=== PATIENT | male | born 1955 | race Caucasian/White ===

== ENCOUNTER → 2016-08-06 | Outpatient (CLI) | payer OTHER ==
[~2016-08-06] MED LIST: CYCL-36 PO; CYCL1TAB29 PO; KETO60IN6 IM; LISI-360 PO; LISI10TA3 PO; MEDI220T PO; METH125I2 IM; NAPR-576 PO; NAPR250T PO
[2016-08-06 09:23] LABS: HEMATOCRIT 40.1 % (39.0-51.0); MEAN CELL VOLUME 89.2 FL (80.0-100.0); MEAN CORPUSCULAR HEMOGLOBIN 29.2 PG (27.0-34.0); MEAN CORPUSCULAR HGB CONC 32.8 % (32.0-36.0); PLATELET COUNT 261 TH/MM3 (150-450); REVIEW FLAG FINAL; WHITE BLOOD COUNT 9.7 TH/MM3 (4.0-11.0)
[2016-08-06 10:00] LABS: ALKALINE PHOSPHATASE 93 U/L (45-117); ALT (GPT) 22 U/L (12-78); ANION GAP 7 MEQ/L (5-15); AST (GOT) 23 U/L (15-37); BICARBONATE 27.8 MEQ/L (21.0-32.0); BLOOD UREA NITROGEN 11 MG/DL (7-18); CHLORIDE 101 MEQ/L (98-107); GLOMERULAR FILTRATION RATE 81 ML/MIN (>89); GLUCOSE,FASTING 108 MG/DL (74-99); HDL CHOLESTEROL 104.2 MG/DL (40.0-60.0); LDL CHOLESTEROL 26 MG/DL (0-99); POTASSIUM 4.1 MEQ/L (3.5-5.1); SODIUM (NA) 136 MEQ/L (136-145); TOTAL BILIRUBIN ADULT 0.6 MG/DL (0.2-1.0)
== END ==
LOC: CLAB 08:59
PROVIDERS: ATTEND Physician Assistant Medical
DX: F10.20 Alcohol dependence, uncomplicated (principal); I10 Essential (primary) hypertension; B18.2 Chronic viral hepatitis C; Z72.0 Tobacco use
CPT/HCPCS: 36415; 80053; 80061; 84443; 85027

== ENCOUNTER → 2016-08-12 | Outpatient (CLI) | payer OTHER ==
[~2016-08-12] MED LIST changes: -CYCL-36 PO; -LISI-360 PO; -NAPR-576 PO
[2016-08-12 11:19] LABS: FREE T4 1.2 NG/DL (0.76-1.46)
== END ==
LOC: CLAB 10:25
PROVIDERS: ATTEND Nurse Practitioner Family
DX: R94.6 Abnormal results of thyroid function studies (principal)
CPT/HCPCS: 36415; 84439; 84443

== ENCOUNTER → 2016-08-13 | Outpatient (CLI) | payer OTHER ==
--- NOTE | 2016-08-14 22:59 | EKG ---
Date Performed: 08/13/2016 Time Performed: 12:57:40 PTAGE: 60 years EKG: Sinus rhythm WITH SINUS ARRHYTHMIA NORMAL ECG PREVIOUS TRACING : 04/11/2007 13.35 DOCTOR: Nimesh Sepulveda Interpretating Date/Time 08/14/2016 22:51:50
== END ==
LOC: HCAV 12:44
PROVIDERS: ATTEND Family Medicine
DX: I49.9 Cardiac arrhythmia, unspecified (principal)
CPT/HCPCS: 93005

== ENCOUNTER → 2016-08-17 | Outpatient (CLI) | payer OTHER ==
--- NOTE | 2016-08-17 17:14 | EC ---
Study Study Date:08/17/2016 STUDY CONCLUSIONS SUMMARY - Left ventricle: The cavity size was normal. Wall thickness was increased in a pattern of mild LVH. Systolic function was mildly reduced. The estimated ejection fraction was 45%. Wall motion was normal; there were no regional wall motion abnormalities. - Pulmonary arteries: PA peak pressure: 39mm Hg (S). If LV function is below 40, please consider prescribing an ACEI or ARB or document rationale for non-use. PROCEDURE DATA STUDY STATUS: Elective. Procedure: Transthoracic echocardiography. Image quality was good. Scanning was performed from the parasternal, apical, and subcostal acoustic windows. Study completion: The patient tolerated the procedure well. Transthoracic echocardiography. M-mode, complete 2D, complete spectral Doppler, and color Doppler. Patient status: Inpatient. CARDIAC ANATOMY LEFT VENTRICLE: The cavity size was normal. Wall thickness was increased in a pattern of mild LVH. Systolic function was mildly reduced. The estimated ejection fraction was 45%. Wall motion was normal; there were no regional wall motion abnormalities. AORTIC VALVE: Trileaflet; normal thickness leaflets. Doppler: Transvalvular velocity was within the normal range. There was no stenosis. No regurgitation. AORTA: Aortic root: The aortic root was normal in size. MITRAL VALVE: Structurally normal valve. Doppler: Transvalvular velocity was within the normal range. There was no evidence for stenosis. No regurgitation. LEFT ATRIUM: The atrium was normal in size. RIGHT VENTRICLE: The cavity size was normal. Wall thickness was normal. PULMONIC VALVE: Doppler: Transvalvular velocity was within the normal range. There was no evidence for stenosis. No regurgitation. TRICUSPID VALVE: Structurally normal valve. Doppler: Transvalvular velocity was within the normal range. Trace regurgitation. PULMONARY ARTERY: The main pulmonary artery was normal-sized. Systolic pressure was at the upper limits of normal. RIGHT ATRIUM: The atrium was normal in size. PERICARDIUM: There was no pericardial effusion. SYSTEMIC VEINS: Inferior vena cava: The vessel was normal in size. BASIC MEASUREMENTS ADULT Normal Left ventricle LV internal dimension, ED, chordal level, *37 mm 43-52 PLAX LV posterior wall thickness, ED 7.34 mm IVS/LVPW ratio, ED *1.57 <1.3 Ventricular septum Septal thickness, ED 11.5 mm Left atrium Anterior-posterior dimension 34 mm Right ventricle RV internal dimension, ED, PLAX 19.8 mm 19-38 DOPPLER MEASUREMENTS ADULT Normal Main pulmonary artery Pressure, S *39 mm Hg =30 Mitral valve Peak E-wave velocity 49 cm/s Peak A-wave velocity 51.3 cm/s Peak E/A ratio 1 Tricuspid valve Regurgitant peak velocity 195 cm/s Peak RV-RA gradient, S 15 mm Hg Maximal regurgitant velocity 195 cm/s Systemic veins Estimated CVP 10 mm Hg Right ventricle RV pressure, S *39 mm Hg <30 LEGEND: Mean values are shown as u=mean value. Asterisk (*) simmons values outside specified normal range. Prepared and signed by Raquel Escobar [id number]
== END ==
LOC: HECH 08:32
PROVIDERS: ATTEND Family Medicine
DX: I49.9 Cardiac arrhythmia, unspecified (principal)
CPT/HCPCS: 93306

== ENCOUNTER → 2016-08-31 | Outpatient (CLI) | payer OTHER ==
--- NOTE | 2016-09-02 07:38 | HM ---
Date Performed: 08/31/2016 Time Performed: 09:43:00 HOOKUP DATE: 08/31/16 09:43:00 AM Mon ANALYSIS START TIME: 08/31/2016 9:48:00 AM ANALYSIS END TIME: 09/01/2016 9:27:17 AM PATIENT AGE: 60 PATIENT HEIGHT PATIENT WEIGHT DRUG LIST PATIENT DIAGNOSIS: palpitations TEST NARRATIVE: The patient's average heart rate was 83 BPM. Heart rates greater than 120 B PM were noted < 1% of the time. No episodes of bradycardia were noted. No pauses exceeding 2.0 s econds were noted. 300 ventricular ectopics, which represented < 1% of the total beat count, were noted. The highest ventricular ectopic frequency occurred from 06:00 PM to 07:00 PM Mon. During th is time 29 VE(s) occurred. Ventricular ectopics were observed as 298 isolated beat(s) and as 1 coupl et(s). No runs were noted. 353 supraventricular ectopics, which represented < 1% of the total be at count, were noted. The highest supraventricular ectopic frequency occurred from 05:00 AM to 06:00 AM Tue. During this time 60 SVE(s) occurred. No episodes of ST depression (defined as -1.0 mm o r more) were noted in channel 1. No episodes of ST depression (defined as -1.0 mm or more) were note d in channel 2. No episodes of ST depression (defined as -1.0 mm or more) were noted in channel 3. TEST INTERPRETATION: The patient is in normal Sinus rhythm with an average heart rate of 83 bpm, minimum heart rate of 56 bpm, maximum heart rate of 132 bpm. T here are 298 PVCs, 353 PACs, 13 runs of PACs-longest being 6 beats. Signed by : Manuel Campoverde
== END ==
LOC: HCAV 09:15
PROVIDERS: ATTEND Family Medicine
DX: R00.2 Palpitations (principal)
CPT/HCPCS: 93225; 93226

== ENCOUNTER 2017-02-24 11:47 | Inpatient (IN) | payer OTHER ==
[2017-02-24] VITALS (11 sets, daily range): BP systolic 131–155; BP diastolic 74–88; PULSE 89–111; RESP 14–19; TEMP 97.9–100.6; O2SAT 96–99
[~2017-02-24] VITALS: Ht 182.9 cm; Wt 49.4 kg
[~2017-02-24 11:47] MED LIST changes: -KETO60IN6 IM; -METH125I2 IM; -NAPR250T PO
[2017-02-24] MEDS ORDERED: SODIUM CHLOR 0.9% 1000 ML INJ 1,000 ML IV ONE (13:45)
[2017-02-24] MEDS ORDERED: SODIUM CHLORIDE 0.9% FLUSH 5 ML FLUSH IV FLUSH PRN (13:45)
--- NOTE | 2017-02-24 14:07 | RADRPT ---
EXAM DATE/TIME: 02/24/2017 13:41 [facility] COMPARISON: No previous studies available for comparison. INDICATIONS : Right leg edema. MEDICAL HISTORY : Hypertension. Hepatitis. SURGICAL HISTORY : Orthopedic surgery, right ankle. ENCOUNTER: Initial ACUITY: 1 day PAIN SCORE: 0/10 LOCATION: Right leg. TECHNIQUE: Venous ultrasound of the leg was performed from the inguinal ligament to the proximal calf. Real-domitila e, color Doppler and spectral tracing, compression and augmentation techniques were used. FINDINGS: There is normal compressibility of the deep venous system from the inguinal region to the proximal ca lf. No echogenic clot is seen in the lumen of the common femoral, femoral, popliteal, and posterior tibial veins. There is a normal response of the venous system to proximal and distal augmentation an d respiration. CONCLUSION: Negative for deep venous thrombosis. Isaac Stevenson MD FACR on February 24, 2017 at 14:05 Board Certified Radiologist. This report was verified electronically.
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
[2017-02-24 14:15] LABS: HEMATOCRIT 39.1 % (39.0-51.0); MEAN CELL VOLUME 86.9 FL (80.0-100.0); MEAN CORPUSCULAR HEMOGLOBIN 28.9 PG (27.0-34.0); MEAN CORPUSCULAR HGB CONC 33.3 % (32.0-36.0); PLATELET COUNT 260 TH/MM3 (150-450); RED CELL DISTRIBUTION WIDTH 14.7 % (11.6-17.2); WHITE BLOOD COUNT 32.9 TH/MM3 (4.0-11.0)
[2017-02-24 14:20] LABS: HEMO FLAGS AUTO DIFF
[2017-02-24 14:26] LABS: APTT (PATIENT) 26.8 SEC (24.3-30.1); INTERNATIONAL NORMALIZED RATIO 1.1 RATIO; PROTHROMBIN TIME - PATIENT 12.4 SEC (9.8-11.6)
--- NOTE | 2017-02-24 14:48 | RADRPT ---
EXAM DATE/TIME: 02/24/2017 14:03 [facility] COMPARISON: No previous studies available for comparison. INDICATIONS : Chest palipitations. MEDICAL HISTORY : Hypertension. Hepatitis. SURGICAL HISTORY : Orthopedic surgery, right ankle. ENCOUNTER: Initial ACUITY: 1 day PAIN SCORE: 2/10 LOCATION: Bilateral chest FINDINGS: A single view of the chest demonstrates the lungs to be symmetrically aerated without evidence of mas s, infiltrate or effusion. The cardiomediastinal contours are unremarkable. Osseous structures are intact. CONCLUSION: No acute disease. Isaac Stevenson MD FACR on February 24, 2017 at 14:46 Board Certified Radiologist. This report was verified electronically.
--- NOTE | 2017-02-24 14:49 | RADRPT ---
EXAM DATE/TIME: 02/24/2017 14:05 [facility] COMPARISON: No previous studies available for comparison. INDICATIONS : Right medial ankle swelling for a week. MEDICAL HISTORY : Hypertension. Hepatitis. SURGICAL HISTORY : Orthopedic surgery, right ankle. ENCOUNTER: Initial ACUITY: 1 week PAIN SCORE: 4/10 LOCATION: Right medial ankle. FINDINGS: Hardware is seen in the ankle with extensive degenerative changes present. There is collapse of the talar dome. There is extensive degenerative changes about the talofibular articulation. Joint effus ion is evident. Fractures are appreciated. CONCLUSION: Extensive degenerative changes with joint effusion. Isaac Stevenson MD FACR on February 24, 2017 at 14:46 Board Certified Radiologist. This report was verified electronically.
[2017-02-24 14:50] LABS: ALKALINE PHOSPHATASE 135 U/L (45-117); ALT (GPT) 64 U/L (12-78); ANION GAP 13 MEQ/L (5-15); AST (GOT) 94 U/L (15-37); BICARBONATE 26.4 MEQ/L (21.0-32.0); BLOOD UREA NITROGEN 70 MG/DL (7-18); CHLORIDE 99 MEQ/L (98-107); CREATINE KINASE 277 U/L (39-308); GLOMERULAR FILTRATION RATE 60 ML/MIN (>89); MAGNESIUM 3.6 MG/DL (1.5-2.5); SODIUM (NA) 138 MEQ/L (136-145); TOTAL BILIRUBIN ADULT 0.7 MG/DL (0.2-1.0)
[2017-02-24 14:59] LABS: POTASSIUM 2.9 MEQ/L (3.5-5.1)
[2017-02-24 15:11] LABS: BANDS 10 % (0-6); NEUTROPHIL # MANUAL DIFF 31.6 TH/MM3 (1.8-7.7); POLYS (SEG NEUTROPHILS) 86 % (16-70); WBC DIFF SAMPLE 100
[2017-02-24 15:12] LABS: DOHLE BODIES PRESENT (NONE SEEN); OVALOCYTES 1+ (NORMAL); PLATELET ESTIMATE SMEAR NORMAL (NORMAL); PLATELET MORPHOLOGY NORMAL (NORMAL); SCAN/DIFF FINAL DIFF MANUAL; TOXIC GRANULATION 1+ (NORMAL)
[2017-02-24 15:19] LABS: CKMB 7.1 NG/ML (0.5-3.6)
[2017-02-24] MEDS ORDERED: CEFEPIME INJ 2,000 MG in SODIUM CHLORIDE 0.9% INJ 100 ML IV STA (15:35)
[2017-02-24] MEDS ORDERED: VANCOMYCIN INJ 1,000 MG in SODIUM CHLOR 0.9% 250 ML INJ 250 ML IV STA (15:35)
[2017-02-24] MEDS ORDERED: POTASSIUM CHLORIDE 25 MEQ EFFERVESCENT TAB PO ONE (16:00)
[2017-02-24] MEDS ORDERED: IOHEXOL 350 MG/ML 10 ML VIAL (for RAD DIAG) IV ONE (16:29)
--- NOTE | 2017-02-24 16:40 | RADRPT ---
EXAM DATE/TIME: 02/24/2017 16:08 [facility] COMPARISON: CT SOFT TISSUE NECK W CONTRAST, October 02, 2013, 13:26. INDICATIONS : Altered mental status. RADIATION DOSE: 46.66 CTDIvol (mGy) MEDICAL HISTORY : Hypertension. SURGICAL HISTORY : None. ENCOUNTER: Initial ACUITY: 1 day PAIN SCALE: 0/10 LOCATION: cranial TECHNIQUE: Multiple contiguous axial images were obtained of the head. Using automated exposure control and adj ustment of the mA and/or kV according to patient size, radiation dose was kept as low as reasonably a chievable to obtain optimal diagnostic quality images. DICOM format image data is available electro nically for review and comparison. FINDINGS: CEREBRUM: The ventricles are normal for age. No evidence of midline shift, mass lesion, hemorrhage or acute in farction. No extra-axial fluid collections are seen. POSTERIOR FOSSA: The cerebellum and brainstem are intact. The 4th ventricle is midline. The cerebellopontine angle i s unremarkable. EXTRACRANIAL: The visualized portion of the orbits is intact. Suspect mucocele in the sphenoid sinus. SKULL: The calvaria is intact. No evidence of skull fracture. CONCLUSION: 1. No acute intracranial abnormality. 2. Probable large mucocele in the sphenoid sinus. Ty Hankins MD on February 24, 2017 at 16:35 Board Certified Radiologist. This report was verified electronically.
--- NOTE | 2017-02-24 16:51 | RADRPT ---
EXAM DATE/TIME: 02/24/2017 16:16 [facility] COMPARISON: No previous studies available for comparison. INDICATIONS : Patient has abdominal pain. IV CONTRAST: 97 cc Omnipaque 350 (iohexol) IV ORAL CONTRAST: No oral contrast ingested. RADIATION DOSE: 7.99 CTDIvol (mGy) MEDICAL HISTORY : Hypertension. SURGICAL HISTORY : None. ENCOUNTER: Initial ACUITY: 1 day PAIN SCALE: 5/10 LOCATION: Bilateral TECHNIQUE: Volumetric scanning of the abdomen and pelvis was performed. Using automated exposure control and adjustment of the mA and/or kV according to patient size, radiation dose was kept as low as reasonably achievable to obtain optimal diagnostic quality images. DICOM format image data is av ailable electronically for review and comparison. FINDINGS: Lung bases are clear. The liver, spleen, and pancreas are unremarkable. The right adr enal is normal. There is a 2.1 cm left adrenal mass evident. There is symmetrical renal function. There is no free fluid. There is moderate distension of the bladder. The bowel gas pattern is unremarkable with marked gaseous distension of both large and small bowel. Bowel is dilated down to the rectum although the sigmoid colon is compressed by the distended bladder . CONCLUSION: 1. Marked gaseous distension of large and small bowel most suggestive of ileus. 2. There is no free air. 3. 2.2 cm left adrenal mass. 4. Distended bladder. Isaac Stevenson MD FACR on February 24, 2017 at 16:44 Board Certified Radiologist. This report was verified electronically.
[2017-02-24 17:37] LABS: BACTERIA, URINE MOD /hpf; BLOOD, URINE NEG (NEG); COMMENT (UR) CULTURE INDICATED; CULTURE IF INDICATED CULTURE INDICATED; GLUCOSE,URINE NEG (NEG); HYALINE CAST, URINE 5 /lpf (RARE); KETONE, URINE TRACE mg/dL (NEG); NITRITE,URINE NEG (NEG); PH, URINE 6.5 (5.0-8.5); SQUAMOUS EPITHELIAL CELL URINE <1 /hpf (0-5); URINE COLOR YELLOW (YELLW/STRAW)
[2017-02-24] MEDS ORDERED: ONDANSETRON HCL 4 MG/2 ML VIAL IV PUSH PRN (18:00)
[2017-02-24] MEDS: SODIUM CHLOR 0.9% 1000 ML INJ 1,000 ML IV SCH (18:24)
[2017-02-24] MEDS ORDERED: Vancomycin Consult Pharmacy 1 EA OTHER SCH (20:15)
[2017-02-24] MEDS ORDERED: THIAMINE HCL 100 MG TAB PO ONE (20:15)
[2017-02-24] MEDS: POTASSIUM CHLOR 20 MEQ PREMIX 100 ML IV SCH ×2 (20:20→22:59)
[2017-02-25] VITALS (10 sets, daily range): BP systolic 140–164; BP diastolic 73–92; PULSE 90–116; RESP 18–28; TEMP 97.1–102.3; O2SAT 93–99
[2017-02-25] MEDS: SODIUM CHLOR 0.9% 1000 ML INJ 1,000 ML IV SCH ×3 (01:44→18:00)
[2017-02-25 02:39] LABS: BICARBONATE 24.8 MEQ/L (21.0-32.0); MAGNESIUM 2.8 MG/DL (1.5-2.5); POTASSIUM 3.9 MEQ/L (3.5-5.1)
[2017-02-25] MEDS: CEFEPIME INJ 2,000 MG in SODIUM CHLORIDE 0.9% INJ 100 ML IV SCH ×2 (06:16→18:00)
[2017-02-25 07:59] LABS: HEMATOCRIT 37.1 % (39.0-51.0); MEAN CELL VOLUME 87.2 FL (80.0-100.0); MEAN CORPUSCULAR HEMOGLOBIN 28.4 PG (27.0-34.0); MEAN CORPUSCULAR HGB CONC 32.6 % (32.0-36.0); PLATELET COUNT 239 TH/MM3 (150-450); RED BLOOD COUNT 4.26 MIL/MM3 (4.50-5.90); RED CELL DISTRIBUTION WIDTH 14.8 % (11.6-17.2); WHITE BLOOD COUNT 30.9 TH/MM3 (4.0-11.0)
[2017-02-25 08:05] LABS: HEMO FLAGS AUTO DIFF
[2017-02-25 08:30] LABS: BICARBONATE 23.7 MEQ/L (21.0-32.0); POTASSIUM 3.5 MEQ/L (3.5-5.1)
--- NOTE | 2017-02-25 09:05 | HHI.HP ---
HPI Service [facility] Primary Care Physician Unknown Admission Diagnosis altered mental status, leukocytosis Diagnoses: (1) Sepsis Diagnosis: Principal (2) Right foot infection Diagnosis: Principal (3) Encephalopathy Diagnosis: Principal (4) Alcoholism Diagnosis: Secondary Chief Complaint: ' right foot swelling'. Travel History International Travel<30 Days: No Contact w/Intl Traveler <30 Da: No Traveled to Known Affected Are: No Sepsis Criteria SIRS Criteria (2 or more): Heart rate over 90, WBC > 99115, < 4000 or > 10% bands Sepsis Criteria (SIRS+source): Infect source susp/known Criteria Outcome: Meets sepsis criteria History of Present Illness patient is a 61 y/o male , homeless, who presented to ER with pain and swelling of the right ankle. he says that he had a surgery on the right ankle years ago. he noticed some swelling of the right ankle about two months ago which has been getting worse.he 's complaining of some pain to the right ankle and foot. he reports some subjective fever prior to this presentation. Review of Systems Constitutional: DENIES: Fever, Weight loss, Chills, Night Sweats Eyes: DENIES: Blurred vision, Diplopia, Vision loss, Double Vision Ears, nose, mouth, throat: DENIES: Tinnitus, Vertigo, Throat pain, Epistaxis Respiratory: DENIES: Apneas, Cough, Snoring, Wheezing, Hemoptysis, Sputum production, Shortness of breath Cardiovascular: DENIES: Chest pain, Palpitations, Syncope, Dyspnea on Exertion , PND, Lower Extremity Edema, Orthopnea, Claudication Gastrointestinal: DENIES: Abdominal pain, Black stools, Bloody stools, Constipation, Diarrhea, Nausea, Vomiting, Difficulty Swallowing, Anorexia Genitourinary: DENIES: Urinary frequency, Urgency, Hematuria, Dysuria Musculoskeletal: COMPLAINS OF: Joint pain (right foot), DENIES: Muscle aches, Stiffness, Joint Swelling Integumentary: DENIES: Rash Neurologic: DENIES: Abnormal gait, Headache, Localized weakness, Paresthesias, Seizures, Speech Problems, Tremor, Poor Balance Psychiatric: DENIES: Anxiety, Confusion, Mood changes, Depression, Hallucinations, Agitation, Suicidal Ideation, Homicidal Ideation, Delusions Past Family Social History Past Medical History hypertension Past Surgical History right foot surgery. Reported Medications flexeril lisinopril Allergies: Coded Allergies: Cipro (Verified Adverse Reaction, Intermediate, Dizziness, 02/24/17) Active Ordered Medications Current Medications Sodium Chloride (NS 1000 ml Inj) 1,000 ml @ 999 mls/hr BOLUS ONCE IV Last administered on 02/24/17 13:38; Start 02/24/17 at 13:45; Stop 02/24/17 at 14:45; Status DC IV Flush 2 ml 2 ml UNSCH PRN IV FLUSH FLUSH AFTER USING IV ACCESS Last administered on 02/24/17 13:38; Start 02/24/17 at 13:45 Vancomycin HCl 1000 mg/Sodium Chloride 250 ml @ 250 mls/hr ONCE STAT IV Last administered on 02/24/17 15:49; Start 02/24/17 at 15:35; Stop 02/24/17 at 16:34; Status DC Cefepime HCl/ Sodium Chloride (Maxipime Inj/NS Inj) 100 ml @ 200 mls/hr ONCE STAT IV Last administered on 02/24/17 16:36; Start 02/24/17 at 15:35; Stop at 16:04; Status DC Potassium Bicarb/ Potassium Chloride (K-Lyte Cl Eff) 50 meq ONCE ONCE PO Last administered on 02/24/17 15:56; Start 02/24/17 at 16:00; Stop 02/24/17 at 16: 01; Status DC Iohexol 97 ml 97 ml STK-MED ONCE IV Last administered on 02/24/17 16:29; Start 02/24/17 at 16:29; Stop 02/24/17 at 16:30; Status DC Sodium Chloride (NS 1000 ml Inj) 1,000 ml @ 125 mls/hr Q8H IV Last administered on 02/25/17 01:44; Start 02/24/17 at 18:00 Ondansetron HCl (Zofran Inj) 4 mg Q8HR PRN IV PUSH NAUSEA; Start 02/24/17 at 18: 00 Thiamine HCl (Vitamin B1) 100 mg ONCE ONCE PO Last administered on 02/24/17 20 :20; Start 02/24/17 at 20:15; Stop 02/24/17 at 20:16; Status DC Thiamine HCl 100 mg 100 mg DAILY PO ; Start 02/25/17 at 09:00 Potassium Chloride 100 ml @ 50 mls/hr Q2H IV Last administered on 02/24/17 22: 59; Start 02/24/17 at 20:30; Stop 02/25/17 at 00:29; Status DC Pharmacy Profile Note 0 ml @ 0 mls/hr UNSCH OTHER ; Start 02/24/17 at 20:15 Cefepime HCl 2000 mg/Sodium Chloride 100 ml @ 200 mls/hr Q12H IV Last administered on 02/25/17 06:16; Start 02/25/17 at 07:00 Vancomycin HCl/ Sodium Chloride (Vancomycin Inj/ NS 500 ml Inj) 515 ml @ 257.5 mls/ hr Q18H IV ; Start 02/25/17 at 10:00 Miscellaneous Information SPECIFIC LAB TO BE DRAWN:VANCO TROUGH DATE TO BE DR... ONCE ONCE .XX ; Start 02/26/17 at 21:45; Stop 02/26/17 at 21:46 Family History not known. Social History smokes a pack a day- and drinks daily. Physical Exam Vital Signs Vital Signs Date Time Temp Pulse Resp B/P Pulse Ox O2 Delivery O2 Flow Rate FiO2 02/25/17 04:15 97.1 94 18 164/81 93 02/25/17 00:10 99.3 101 19 155/83 94 02/24/17 23:00 92 02/24/17 22:15 104 02/24/17 20:45 100.6 97 19 144/81 98 02/24/17 19:21 90 14 146/84 99 Room Air 02/24/17 18:24 98.3 96 17 144/82 98 Room Air 02/24/17 16:41 98.0 89 17 152/88 98 Room Air 02/24/17 15:00 97.9 89 17 155/84 98 Room Air 02/24/17 13:30 97.9 89 17 142/81 98 Room Air 02/24/17 13:22 18 98 Room Air 02/24/17 13:17 81 17 98 Room Air 02/24/17 13:03 98.1 89 18 144/74 98 Physical Exam GENERAL: This is a well-nourished, well-developed patient, in no apparent distress. SKIN: mild erythema over the right foot. HEAD: Atraumatic. Normocephalic. No temporal or scalp tenderness.dry oral mucosa EYES: Pupils equal round and reactive. Extraocular motions intact. No scleral icterus. No injection or drainage. ENT: Nose without bleeding, purulent drainage or septal hematoma. Throat without erythema, tonsillar hypertrophy or exudate. Uvula midline. Airway patent. NECK: Trachea midline. No JVD or lymphadenopathy. Supple, nontender, no meningeal signs. CARDIOVASCULAR: Regular rate and rhythm without murmurs, gallops, or rubs. RESPIRATORY: Clear to auscultation. Breath sounds equal bilaterally. No wheezes , rales, or rhonchi. GASTROINTESTINAL: Abdomen soft, non-tender, nondistended. No hepato-splenomegaly , or palpable masses. No guarding. MUSCULOSKELETAL: right ankle/ foot is swollen and tender. NEUROLOGICAL: Awake and alert. oriented to person, partly to place and time. Laboratory Laboratory Tests Test 02/24/17 02/24/17 02/24/17 02/25/17 13:40 13:45 15:41 02:04 Prothrombin Time 12.4 Prothromb Time International 1.1 Ratio Activated Partial 26.8 Thromboplast Time Sodium Level 138 138 Potassium Level 2.9 3.9 Chloride Level 99 105 Carbon Dioxide Level 26.4 24.8 Anion Gap 13 8 Blood Urea Nitrogen 70 44 Creatinine 1.22 0.77 Estimat Glomerular Filtration 60 102 Rate Random Glucose 105 94 Lactic Acid Level 1.8 Calcium Level 8.9 8.3 Phosphorus Level 3.4 Magnesium Level 3.6 2.8 Total Bilirubin 0.7 Aspartate Amino Transf 94 (AST/SGOT) Alanine Aminotransferase 64 (ALT/SGPT) Alkaline Phosphatase 135 Ammonia 17 Total Creatine Kinase 277 Creatine Kinase MB 7.1 Troponin I 0.02 Total Protein 7.3 Albumin 2.2 Ethyl Alcohol Level LESS THAN 3 White Blood Count 32.9 Red Blood Count 4.50 Hemoglobin 13.0 Hematocrit 39.1 Mean Corpuscular Volume 86.9 Mean Corpuscular Hemoglobin 28.9 Mean Corpuscular Hemoglobin 33.3 Concent Red Cell Distribution Width 14.7 Platelet Count 260 Mean Platelet Volume 9.5 Neutrophils (%) (Auto) Lymphocytes (%) (Auto) Monocytes (%) (Auto) Eosinophils (%) (Auto) Basophils (%) (Auto) Neutrophils # (Auto) Lymphocytes # (Auto) Monocytes # (Auto) Eosinophils # (Auto) Basophils # (Auto) CBC Comment AUTO DIFF Differential Total Cells 100 Counted Neutrophils % (Manual) 86 Band Neutrophils % 10 Lymphocytes % 1 Monocytes % 3 Neutrophils # (Manual) 31.6 Differential Comment FINAL DIFF MANUAL Toxic Granulation 1+ Dohle Bodies PRESENT Platelet Estimate NORMAL Platelet Morphology Comment NORMAL Ovalocytes 1+ Urine Color YELLOW Urine Turbidity HAZY Urine pH 6.5 Urine Specific [place] 1.021 Urine Protein 30 Urine Glucose (UA) NEG Urine Ketones TRACE Urine Occult Blood NEG Urine Nitrite NEG Urine Bilirubin NEG Urine Urobilinogen LESS THAN 2.0 Urine Leukocyte Esterase NEG Urine RBC LESS THAN 1 Urine WBC 2 Urine Squamous Epithelial <1 Cells Urine Bacteria MOD Urine Hyaline Casts 5 Microscopic Urinalysis Comment CULTURE INDICATED Urine Opiates Screen NEG Urine Barbiturates Screen NEG Urine Amphetamines Screen NEG Urine Benzodiazepines Screen NEG Urine Cocaine Screen NEG Urine Cannabinoids Screen NEG Test 02/25/17 07:02 White Blood Count 30.9 Red Blood Count 4.26 Hemoglobin 12.1 Hematocrit 37.1 Mean Corpuscular Volume 87.2 Mean Corpuscular Hemoglobin 28.4 Mean Corpuscular Hemoglobin 32.6 Concent Red Cell Distribution Width 14.8 Platelet Count 239 Mean Platelet Volume 9.1 Neutrophils (%) (Auto) Lymphocytes (%) (Auto) Monocytes (%) (Auto) Eosinophils (%) (Auto) Basophils (%) (Auto) Neutrophils # (Auto) Lymphocytes # (Auto) Monocytes # (Auto) Eosinophils # (Auto) Basophils # (Auto) CBC Comment AUTO DIFF Sodium Level 138 Potassium Level 3.5 Chloride Level 106 Carbon Dioxide Level 23.7 Anion Gap 8 Blood Urea Nitrogen 37 Creatinine 0.64 Estimat Glomerular Filtration 126 Rate Random Glucose 92 Calcium Level 8.4 Date/Time Procedure Status Source Growth 02/24/17 15:41 Urine Culture Received Urine Clean Catch Pending 02/24/17 13:40 Aerobic Blood Culture Received Blood Peripheral Pending 02/24/17 13:40 Anaerobic Blood Culture Received Blood Peripheral Pending Result Diagram: 02/25/17 0702 02/25/17 0702 Imaging Last Impressions Lower Extremity Ultrasound 02/24/17 0000 Signed Impressions: Service Date/Time: Friday, February 24, 2017 13:41 - CONCLUSION: Negative for deep venous thrombosis. Isaac Stevenson MD FACR Head CT 02/24/17 0000 Signed Impressions: Service Date/Time: Friday, February 24, 2017 16:08 - CONCLUSION: 1. No acute intracranial abnormality. 2. Probable large mucocele in the sphenoid sinus. Ty Hankins MD Chest X-Ray 02/24/17 0000 Signed Impressions: Service Date/Time: Friday, February 24, 2017 14:03 - CONCLUSION: No acute disease. Isaac Stevenson MD FACR Ankle X-Ray 02/24/17 0000 Signed Impressions: Service Date/Time: Friday, February 24, 2017 14:05 - CONCLUSION: Extensive degenerative changes with joint effusion. Isaac Stevenson MD FACR Abdomen/Pelvis CT 02/24/17 0000 Signed Impressions: Service Date/Time: Friday, February 24, 2017 16:16 - CONCLUSION: 1. Marked gaseous distension of large and small bowel most suggestive of ileus. 2. There is no free air. 3. 2.2 cm left adrenal mass. 4. Distended bladder. Isaac Stevenson MD FACR Assessment and Plan Assessment and Plan A/P - sepsis due to right ankle/foot infection with history of right foot surgery in the past continue with broad spectrum IV antibiotics- follow the blood cultures- consult ID and podiatry- continue with pain control. -dehydration; continue IV fluid. -alcohol abuse; start on CIWA protocol, thiamine and multivitamin. -acute encephalopathy-possible due to sepsis/ dehydration continue IV fluid and antibiotics- monitor clinically CT head with no acute intracranial abnormality. -hypokalemia; replaced. -DVT prophylaxis; subq Lovenox. Physician Certification 2 Midnight Certification Type: Admission for Inpatient Services Order for Inpatient Services The services are ordered in accordance with Medicare regulations or non- Medicare payer requirements, as applicable. In the case of services not specified as inpatient-only, they are appropriately provided as inpatient services in accordance with the 2-midnight benchmark. Estimated LOS (days): 3 days is the estimated time the patient will need to remain in the hospital, assuming treatment plan goals are met and no additional complications. Post-Hospital Plan: Not yet determined Problem Qualifiers (1) Sepsis: Qualified Code: A41.9 - Sepsis, due to unspecified organism Flaca Houser MD Feb 25, 2017 09:05
[2017-02-25] MEDS ORDERED: LORazepam 2 MG TAB PO PRN (09:15)
[2017-02-25] MEDS ORDERED: FLUMAZENIL 0.5 MG/5 ML VIAL IV PUSH PRN (09:15)
[2017-02-25] MEDS ORDERED: VANCOMYCIN 1,500 MG/NS 500 ML IV SCH ×2 (10:00)
[2017-02-25] MEDS: THIAMINE HCL 100 MG TAB PO SCH (10:29)
[2017-02-25 10:30] LABS: BANDS 10 % (0-6); METAMYELOCYTES 1 % (0-1); NEUTROPHIL # MANUAL DIFF 30.6 TH/MM3 (1.8-7.7); POLYS (SEG NEUTROPHILS) 88 % (16-70); WBC DIFF SAMPLE 100
[2017-02-25 10:31] LABS: PLATELET MORPHOLOGY NORMAL (NORMAL); SCAN/DIFF FINAL DIFF MANUAL
[2017-02-25] MEDS: ENOXAPARIN SODIUM 40 MG/0.4 ML SYRINGE SQ SCH (12:12)
[2017-02-25] MEDS: LORazepam 1 MG TAB PO PRN (12:12)
--- NOTE | 2017-02-25 15:00 | EKG ---
Date Performed: 02/24/2017 Time Performed: 13:45:39 PTAGE: 61 years EKG: Sinus rhythm WITH SHORT [place] INTERVAL MINIMAL VOLTAGE CRITERIA FOR LVH, CONSIDER NORMAL VARIANT NONSPECIFIC T-WAVE ABNORMALITY BORDERLINE ECG PREVIOUS TRACING : 08/13/2016 12.57 Since previous tracing, no significant change noted DOCTOR: Dawn Brink Interpretating Date/Time 02/25/2017 14:59:56
--- NOTE | 2017-02-25 16:26 | PD.ID.CON ---
History of Present Illness Service ID Consult Requested By Reason for Consult Evaluation and Mment of Sepsis, MRSA bacteremia, Septic arthritis Right knee. Primary Care Physician Unknown Diagnoses: History of Present Illness Most of the history is obtained from review of medical records. Patient is confused. is a 61 y/o CM,homeless, with prior h/o right knee surgery, Hepatitis C antibody positive, chronic heavy alcoholism and smoking. Patient presented to ER with pain and swelling of the right ankle. Patient reported to others on admission that he noticed some swelling of the right ankle about two months ago which has been getting worse. Due to pain and subjective fevers patient presented to the hospital. On admission in the ED patient had normal WBC count, but leucocytosis of 32 K, Tachycardia and normal blood pressure. Sepsis workup was started and patient was started on broad spectrum antibiotics. Blood cultures from admission are positive for Staph aureus (MRSA) and urine as well. Patient has been started on DT prophylaxis but continues to be altered mental status with tremulousness. Patient also has been seen by podiatry. will likely take him to OR in am for source control. At the time of my evaluation patient was tremulous, confused, maintaining blood pressure but due to concerns for aspiration and airway protection I called [facility] who evaluated patient. ID consulted for sepsis, MRSA bacteremia and right knee septic arthritis. Review of Systems ROS Limitations: Altered Mental Status Past Family Social History Allergies: Coded Allergies: Cipro (Verified Adverse Reaction, Intermediate, Dizziness, 02/24/17) *MDRO Multi-Drug Resistant Organism (Verified Adverse Reaction, Unknown, ) MRSA (blood)+(urine) 02/24/17, (blood) 02/25/17, 02/27/17 (finger,ankle,leg) 02/26/17, 02/28/17 MRSA PCR screen positive 02/25/17 Past Medical History hypertension alcoholism Hepatitis C Past Surgical History right foot surgery with hardware in place. Reported Medications Reported Meds & Active Scripts Active Flexeril (Cyclobenzaprine HCl) 10 Mg Tab 10 Mg PO TID Lisinopril 10 Mg Tab 10 Mg PO DAILY Reported Naproxen Sodium 220 Mg Tab 220 Mg PO BID PRN Active Ordered Medications Current Medications Medications (Trade) Dose Ordered Sig/Kayla Route Start Time Stop Time Status Last Admin IV Flush 2 ml 2 ml UNSCH PRN IV FLUSH 02/24/17 13:45 02/24/17 13:38 (NS 1000 ml Inj) 1,000 ml @ 125 mls/hr Q8H IV 02/24/17 18:00 02/25/17 10:29 (Zofran Inj) 4 mg Q8HR PRN IV PUSH 02/24/17 18:00 Thiamine HCl 100 mg 100 mg DAILY PO 02/25/17 09:00 02/25/17 10:29 Pharmacy Profile Note 0 ml @ 0 mls/hr UNSCH OTHER 02/24/17 20:15 (Maxipime Inj/NS Inj) 100 ml @ 200 mls/hr Q12H IV 02/25/17 07:00 02/25/17 06:16 Miscellaneous Information SPECIFIC LAB TO BE DRAWN:VANCO TROUGH DATE TO BE DRLaurence.Laurence ONCE ONCE .XX 02/26/17 21:45 02/26/17 21:46 (Romazicon Inj) 0.2 mg Q1M PRN IV PUSH 02/25/17 09:15 (Ativan) 1 mg Q4H PRN PO 02/25/17 09:15 02/25/17 12:12 (Ativan Inj) 1 mg Q4H PRN IV PUSH 02/25/17 09:15 (Ativan) 2 mg Q2H PRN PO 02/25/17 09:15 (Ativan Inj) 2 mg Q2H PRN IV PUSH 02/25/17 09:15 (Ativan Inj) 2 mg Q1H PRN IV PUSH 02/25/17 09:15 (Ativan Inj) 2 mg Q15M PRN IV PUSH 02/25/17 09:15 (Theragran) 1 tab DAILY PO 02/26/17 09:00 (Tylenol) 650 mg Q4H PRN PO 02/25/17 09:15 (Prinivil) 10 mg DAILY PO 02/26/17 09:00 Enoxaparin Sodium 40 mg 40 mg Q24H SQ 02/25/17 10:00 02/25/17 12:12 (Vancomycin Inj/ NS 500 ml Inj) 515 ml @ 257.5 mls/ hr Q12H IV 02/25/17 22:00 Miscellaneous Information SPECIFIC LAB TO BE .Laurence ONCE ONCE .XX 02/26/17 09:45 02/26/17 09:46 Family History could not be obtained. Social History Homeless, smokes a pack a day and drinks daily. Physical Exam Vital Signs Vital Signs Date Time Temp Pulse Resp B/P Pulse Ox O2 Delivery O2 Flow Rate FiO2 02/25/17 08:00 97.7 90 18 157/84 96 02/25/17 04:15 97.1 94 18 164/81 93 02/25/17 00:10 99.3 101 19 155/83 94 02/24/17 23:00 92 02/24/17 22:15 104 02/24/17 20:45 100.6 97 19 144/81 98 02/24/17 19:21 90 14 146/84 99 Room Air 02/24/17 18:24 98.3 96 17 144/82 98 Room Air 02/24/17 16:41 98.0 89 17 152/88 98 Room Air Physical Exam GENERAL: This is a well-nourished, well-developed patient, in no apparent distress. SKIN: No rashes, ecchymoses or lesions. Cool and dry. HEAD: Atraumatic. Normocephalic. No temporal or scalp tenderness. EYES: Pupils equal round and reactive. Extraocular motions intact. No scleral icterus. No injection or drainage. ENT: Nose without bleeding, purulent drainage or septal hematoma. Throat without erythema, tonsillar hypertrophy or exudate. Uvula midline. Airway patent. NECK: Trachea midline. Supple, nontender, no meningeal signs. CARDIOVASCULAR: Regular rate and rhythm without murmurs, gallops, or rubs. RESPIRATORY: Clear to auscultation. Breath sounds equal bilaterally. No wheezes , rales, or rhonchi. GASTROINTESTINAL: Abdomen soft, non-tender, nondistended. MUSCULOSKELETAL: Rt foot with swelling and warmth and fluctuance noted. Bilateral UE with warmth and swelling around knuckles noted. NEUROLOGICAL: Lethargic, awakens on command but drifts back to sleep. Psych cooperative IV line sites with no e.o infection Laboratory Laboratory Tests Test 02/25/17 02/25/17 02:04 07:02 Sodium Level 138 138 Potassium Level 3.9 3.5 Chloride Level 105 106 Carbon Dioxide Level 24.8 23.7 Anion Gap 8 8 Blood Urea Nitrogen 44 37 Creatinine 0.77 0.64 Estimat Glomerular Filtration 102 126 Rate Random Glucose 94 92 Calcium Level 8.3 8.4 Magnesium Level 2.8 Vitamin B12 Level GREATER THAN 2000 Folate 11.5 White Blood Count 30.9 Red Blood Count 4.26 Hemoglobin 12.1 Hematocrit 37.1 Mean Corpuscular Volume 87.2 Mean Corpuscular Hemoglobin 28.4 Mean Corpuscular Hemoglobin 32.6 Concent Red Cell Distribution Width 14.8 Platelet Count 239 Mean Platelet Volume 9.1 Neutrophils (%) (Auto) Lymphocytes (%) (Auto) Monocytes (%) (Auto) Eosinophils (%) (Auto) Basophils (%) (Auto) Neutrophils # (Auto) Lymphocytes # (Auto) Monocytes # (Auto) Eosinophils # (Auto) Basophils # (Auto) CBC Comment AUTO DIFF Differential Total Cells 100 Counted Neutrophils % (Manual) 88 Band Neutrophils % 10 Monocytes % 1 Neutrophils # (Manual) 30.6 Metamyelocytes 1 Differential Comment FINAL DIFF MANUAL Platelet Morphology Comment NORMAL Red Cell Morphology Comment NORMAL Date/Time Procedure Status Source Growth 02/24/17 15:41 Urine Culture - Preliminary Resulted Urine Clean Catch S. Aureus Mrsa 02/24/17 13:40 Aerobic Blood Culture - Preliminary Resulted Blood Peripheral S. Aureus Mrsa 02/24/17 13:40 Anaerobic Blood Culture - Preliminary Resulted Gram Positive Cocci Result Diagram: 02/25/17 0702 02/25/17 0702 Imaging Last Impressions Lower Extremity Ultrasound 02/24/17 0000 Signed Impressions: Service Date/Time: Friday, February 24, 2017 13:41 - CONCLUSION: Negative for deep venous thrombosis. Isaac Stevenson MD FACR Head CT 02/24/17 0000 Signed Impressions: Service Date/Time: Friday, February 24, 2017 16:08 - CONCLUSION: 1. No acute intracranial abnormality. 2. Probable large mucocele in the sphenoid sinus. Ty Hankins MD Chest X-Ray 02/24/17 0000 Signed Impressions: Service Date/Time: Friday, February 24, 2017 14:03 - CONCLUSION: No acute disease. Isaac Stevenson MD FACR Ankle X-Ray 02/24/17 0000 Signed Impressions: Service Date/Time: Friday, February 24, 2017 14:05 - CONCLUSION: Extensive degenerative changes with joint effusion. Isaac Stevenson MD FACR Abdomen/Pelvis CT 02/24/17 0000 Signed Impressions: Service Date/Time: Friday, February 24, 2017 16:16 - CONCLUSION: 1. Marked gaseous distension of large and small bowel most suggestive of ileus. 2. There is no free air. 3. 2.2 cm left adrenal mass. 4. Distended bladder. Isaac Stevenson MD FACR Assessment and Plan Assessment and Plan Sepsis secondary to MRSA bacteremia and right foot hardware infection. Possible Endocarditis. MRSA bacteremia likely secondary to right foot hardware infection. Bilateral hand cellulitis ? septic arthritis of knuckles of index finger. Acute metabolic encephalopathy: DT, infection. HTN Delirium Tremens. Alcoholism. Hepatitis C. Recs: continue Vanco IV (target 15-20) continue Cefepime IV Start Genta x 1 dose only. Check 2D ECHO (r/o endocarditis, MRSA bacteremia pt) Check Hepatitis profile Check HIV antibody screen. D/w surgery in am Stat CCM consult placed (re: Delirium Tremens, evaluate need for intubation for airway protection) Check CRP Repeat blood cultures x 2. Stat lactic acid. d.w RN and community facilitator. I will be OOT from 02/26/2017 to 03/04/2017. Other ID MDs covering for me. covering the weekend. Sunshine Keene MD Feb 25, 2017 16:25 Sunshine Keene MD Feb 25, 2017 16:25
[2017-02-25] MEDS: LORazepam 2 MG/ML VIAL IV PUSH PRN ×3 (16:35→21:37)
[2017-02-25] MEDS ORDERED: chlordiazePOXIDE 25 MG CAP PO SCH (17:00)
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
[2017-02-25] MEDS ORDERED: GENTAMICIN INJ 70 MG in SODIUM CHLORIDE 0.9% INJ 100 ML IV ONE (18:30)
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
[2017-02-25] MEDS: DEXMEDETOMIDINE INJ 200 MCG in SODIUM CHLORIDE 0.9% INJ 50 ML IV SCH ×2 (18:51→21:38)
--- NOTE | 2017-02-25 19:33 | RADRPT ---
EXAM DATE/TIME: 02/25/2017 17:54 [facility] COMPARISON: No previous studies available for comparison. INDICATIONS : Left arm fluid collection. MEDICAL HISTORY : Hypertension. Back problems. Joint pain. Alcohol use. MRSA. Hepatitis. Anxiety. Depression. SURGICAL HISTORY : Right ankle plates. Right knee surgery. ENCOUNTER: Initial ACUITY: 1 day PAIN SCORE: Nonresponsive. LOCATION: Left arm. AREA EVALUATED: Left hand/ forefinger FINDINGS: Ultrasound was targeted to the 2nd digit where there is an area of soft tissue swelling. There is a thin elongated fluid collection which measures less than 3 mm in thickness and approximately 1.7 cm i n length. No increased flow seen by color Doppler. CONCLUSION: There is a thin fluid collection within the focal area of soft tissue swelling 2nd digit. Oscar Cassidy MD on February 25, 2017 at 19:29 Board Certified Radiologist. This report was verified electronically.
--- NOTE | 2017-02-25 19:34 | RADRPT ---
EXAM DATE/TIME: 02/25/2017 18:02 [facility] COMPARISON: No previous studies available for comparison. INDICATIONS : Fluid collection on right hand. MEDICAL HISTORY : Hypertension. Back problems. Joint pain. Alcohol use. MRSA. Hepatitis. Anxiety. Depression. SURGICAL HISTORY : Right ankle plates. Right knee surgery. ENCOUNTER: Initial ACUITY: 1 day PAIN SCORE: Nonresponsive. LOCATION: Right arm. AREA EVALUATED: Right hand/forefinger. FINDINGS: Real-time ultrasound examination was targeted to the 2nd digit soft tissue swelling. There is a foca l fluid collection which measures approximately 10 x 5 mm within the area of soft tissue thickening. No increased flow seen by color Doppler. CONCLUSION: There is a small fluid collection within the area of soft tissue thickening. Oscar Cassidy MD on February 25, 2017 at 19:31 Board Certified Radiologist. This report was verified electronically.
--- NOTE | 2017-02-25 21:06 | RADRPT ---
EXAM DATE/TIME: 02/25/2017 18:48 [facility] COMPARISON: No previous studies available for comparison. INDICATIONS : Inflammation of right hand. MEDICAL HISTORY : Hypertension. SURGICAL HISTORY : None. ENCOUNTER: Subsequent ACUITY: 3 days PAIN SCORE: Non-responsive. LOCATION: Right Hnad. FINDINGS: Three view examination of the right hand demonstrates no soft tissue swelling, dislocation, or fractu re. The carpal bones appear intact. The interphalangeal and metacarpophalangeal joints are intact without significant arthropathy. No periosteal reaction. Orthopedic pin fuses the middle and proxim al phalanx of the 5th digit.. Bony mineralization is normal. CONCLUSION: No significant arthropathy. No evidence of recent bone injury. Oscar Cassidy MD on February 25, 2017 at 21:03 Board Certified Radiologist. This report was verified electronically.
--- NOTE | 2017-02-25 21:11 | RADRPT ---
EXAM DATE/TIME: 02/25/2017 18:59 [facility] COMPARISON: No previous studies available for comparison. INDICATIONS : Inflammation of left hand. MEDICAL HISTORY : Hypertension. SURGICAL HISTORY : None. ENCOUNTER: Subsequent ACUITY: 2 days PAIN SCORE: Non-responsive. LOCATION: Left Hand. FINDINGS: Three view examination of the left hand demonstrates no soft tissue swelling, dislocation, or fractur e. The carpal bones appear intact. The interphalangeal and metacarpophalangeal joints are intact. No significant arthropathy. Bony mineralization is normal. Monitoring device obscures the distal 2 nd digit. CONCLUSION: No gross bony abnormality. Oscar Cassidy MD on February 25, 2017 at 21:09 Board Certified Radiologist. This report was verified electronically.
[2017-02-25] MEDS ORDERED: IOHEXOL 350 MG/ML 10 ML VIAL (for RAD DIAG) IV ONE (21:15)
--- NOTE | 2017-02-25 21:27 | MB ---
cc: ZBIGNIEW REYES DPM DATE OF CONSULTATION 02/24/2017 DATE OF 1955 REASON FOR CONSULTATION Right ankle infection. HISTORY OF PRESENT ILLNESS The patient is a 61-year-old male. The entire history was gleaned from medical records as the patient was confused. The patient is a 61-year-old male with history of right knee surgery, hep C, chronic alcoholism and smoking. Presents to the ED with some noted swelling on the right ankle two months which has been getting worse. Pain due to subjective fevers. REVIEW OF SYSTEMS AMS. PAST MEDICAL HISTORY Hypertension, alcoholism, hep C. PAST SURGICAL HISTORY Right ankle ORIF. MEDICATIONS 1. Flexor. 2. Lisinopril. PHYSICAL EXAMINATION DIRECTED EXAMINATION: Muscle strength deferred. Right ankle is diffuse, warm, swollen, fluctuant with erythema. There is no active drainage. LABORATORY DATA WBC on 02/25/2017 of 30.9, RBC of 4.2, H&H 12.1 and 37.1. Toxicology on 02/24/17 negative for opiates, servando, cocaine as well as cannabis. ASSESSMENT/PLAN 1. Right ankle abscess. 2. Sepsis. 3. Infected hardware, pending a CTA with contrast, right ankle three views non-weightbearing with intact hardware. There is no gas noted. Probably soft tissue swelling. ASSESSMENT/PLAN The patient is septic with bacteremia and right ankle infection. Plan for this patient, take him to the OR emergently for arthrotomy in the right ankle and incision and drainage, removal infected hardware, if possible bone biopsy. Discussed with ID who was present during the exam. Plan to co-intervene with hand surgery for his infected hand as well as to plan for the OR 02/25/2017. Discussed with nursing for medical clearance per critical care. Thank you for the kind consult. Zbigniew Reyes DPM SR/EO /9:05 PM /9:11 PM
[2017-02-25] MEDS: ACETAMINOPHEN 1000 MG/100 ML VIAL IV PRN (21:37)
--- NOTE | 2017-02-25 21:54 | RADRPT ---
EXAM DATE/TIME: 02/25/2017 21:12 [facility] COMPARISON: No previous studies available for comparison. INDICATIONS : Swelling. Evaluate for abscess. IV CONTRAST: 75 cc Omnipaque 350 (iohexol) IV RADIATION DOSE: 7.29 CTDIvol (mGy) MEDICAL HISTORY : Hypertension. Crushing injury to ankle. SURGICAL HISTORY : ORIF ankle. ENCOUNTER: Initial ACUITY: 1 day PAIN SCALE: 8/10 LOCATION: Right ankle TECHNIQUE: Volumetric scanning of the ankle was performed. Using automated exposure control and adjustment of t he mA and/or kV according to patient size, radiation dose was kept as low as reasonably achievable to obtain optimal diagnostic quality images. DICOM format image data is available electronically for review and comparison. FINDINGS: Distal fibular plate and multiple screws in the distal fibula and tibia. There is advanced cystic ch davy in the dome of the talus and flattening of the dome. A corticated ossific fragment is present i n the anterior space between the tibia and calcaneus. 11 mm cyst in the posterior inferior talus. There is prominent subcutaneous soft tissue thickening and swelling, greater in thickness laterally t orellana medially, measuring up to 1.6 cm. Fluid collection is seen posterior to the ankle joint which me asures 1.8 x 3.8 cm. This appears to be in continuity with the joint space suggesting an enlarged ef fusion. There are 2 elongated areas of fluid with mild enhancing serna located anterior to the later al ankle measuring 2.6 x 0.7 cm. This tracks superior/inferior 4 cm. No focal collections of gas se en. CONCLUSION: Subcutaneous, posterior joint, and anterolateral deep soft tissue swelling and fluid. There are fazal ral small compartments of fluid that demonstrate thin and mild peripheral enhancement. No focal negro ections of gas seen. Oscar Cassidy MD on February 25, 2017 at 21:46 Board Certified Radiologist. This report was verified electronically.
[2017-02-25] MEDS ORDERED: POTASSIUM CHLORIDE 25 MEQ EFFERVESCENT TAB PO PRN (22:45)
[2017-02-25] MEDS ORDERED: POTASSIUM CHLOR 20 MEQ PREMIX 100 ML IV PRN (22:45)
[2017-02-25] MEDS ORDERED: POTASSIUM PHOSPHATE MONOBASIC 500 MG TAB PO/TUBE PRN (22:45)
[2017-02-25] MEDS ORDERED: POTASSIUM CHLOR 40 MEQ PREMIX 100 ML IV PRN ×2 (22:45)
[2017-02-25] MEDS ORDERED: MAGNESIUM SULFATE INJ 4 GM in SODIUM CHLORIDE 0.9% INJ 92 ML IV PRN (22:45)
[2017-02-25] MEDS ORDERED: POTASSIUM PHOSPHATE MONOBASIC 500 MG TAB PO PRN (22:45)
[2017-02-25] MEDS ORDERED: MAGNESIUM SULFATE INJ 2 GM in SODIUM CHLORIDE 0.9% INJ 96 ML IV PRN (22:45)
[2017-02-25] MEDS ORDERED: MAGNESIUM OXIDE 400 MG TAB PO PRN (22:45)
[2017-02-25] MEDS ORDERED: POTASSIUM PHOSPHATE INJ 30 MMOL in SODIUM CHLOR 0.9% 250 ML INJ 250 ML IV PRN (22:45)
[2017-02-25] MEDS ORDERED: SODIUM PHOSPHATE INJ 30 MMOL in SODIUM CHLOR 0.9% 250 ML INJ 240 ML IV PRN (22:45)
--- NOTE | 2017-02-25 22:54 | RADRPT ---
EXAM DATE/TIME: 02/25/2017 22:45 [facility] COMPARISON: CHEST SINGLE AP, February 24, 2017, 14:03. INDICATIONS : Shortness of breath. MEDICAL HISTORY : Hypertension. Hepatitis. SURGICAL HISTORY : None. ENCOUNTER: Subsequent ACUITY: 2 days PAIN SCORE: Non-responsive. LOCATION: Bilateral chest FINDINGS: The right lung is clear. There is mild elevation left hemidiaphragm and minimal basilar atelectasis. No consolidative infiltrates seen. No evidence of pneumothorax. A The heart is normal size. CONCLUSION: Mild left basilar atelectasis. No consolidative infiltrates seen. Oscar Cassidy MD on February 25, 2017 at 22:52 Board Certified Radiologist. This report was verified electronically.
[2017-02-25] MEDS: POTASSIUM CHLOR 20 MEQ PREMIX 100 ML IV PRN (22:55)
[2017-02-25 23:04] LABS: BLOOD GAS BASE EXCESS 0.3 mmol/L (-2-2); BLOOD GAS CARBOXYHEMOGLOBIN 0.7 % (0-4); BLOOD GAS HCO3 24 mmol/L (22-26); BLOOD GAS O2 HGB SATURATION 96 % (90-100); BLOOD GAS OXYGEN CONTENT 15.1 Vol % (12.0-20.0); BLOOD GAS PCO2 38 mmHg (38-42); BLOOD GAS PO2 115 mmHg (61-120); CRITICAL VALUE NO; DRAW SITE RT RADIAL; LITER FLOW 4 L/M; NUMBER OF ARTERIAL PUNCTURES 1; OXYGEN DEVICE NASAL CANNULA; STAT YES; TEMP CORR TO 98.6; ULNAR PULSE PRESENT
[2017-02-25] MEDS ORDERED: LABETALOL HCL 100 MG/20 ML VIAL IV PUSH PRN (23:15)
[2017-02-25] MEDS: VANCOMYCIN 1,500 MG/NS 500 ML IV SCH ×2 (23:47)
[2017-02-26] VITALS (11 sets, daily range): BP systolic 111–177; BP diastolic 65–100; PULSE 76–100; RESP 21–27; TEMP 97.9–100.9; O2SAT 97–100
[2017-02-26] MEDS: PANTOPRAZOLE SODIUM 40 MG VIAL IV PUSH SCH (00:57)
[2017-02-26] MEDS: POTASSIUM CHLOR 20 MEQ PREMIX 100 ML IV PRN (00:57)
[2017-02-26] MEDS: SODIUM CHLOR 0.9% 1000 ML INJ 1,000 ML IV SCH ×3 (01:06→18:00)
[2017-02-26] MEDS: LORazepam 2 MG/ML VIAL IV PUSH PRN ×4 (01:36→18:14)
[2017-02-26] MEDS: CEFEPIME INJ 2,000 MG in SODIUM CHLORIDE 0.9% INJ 100 ML IV SCH ×2 (06:24→18:46)
[2017-02-26] MEDS: DEXMEDETOMIDINE INJ 200 MCG in SODIUM CHLORIDE 0.9% INJ 50 ML IV SCH ×2 (06:25→18:47)
[2017-02-26] MEDS ORDERED: CHLORHEXIDINE GLUCONATE 2 % 1 PACK (2 CLOTHS)(extra cloths) TOPICAL PRN (07:15)
[2017-02-26 07:26] LABS: HEMATOCRIT 34.8 % (39.0-51.0); MEAN CELL VOLUME 87.3 FL (80.0-100.0); MEAN CORPUSCULAR HEMOGLOBIN 28.9 PG (27.0-34.0); PLATELET COUNT 182 TH/MM3 (150-450); RED BLOOD COUNT 3.99 MIL/MM3 (4.50-5.90); WHITE BLOOD COUNT 32.2 TH/MM3 (4.0-11.0)
[2017-02-26 07:29] LABS: HEMO FLAGS AUTO DIFF
[2017-02-26 07:47] LABS: ALKALINE PHOSPHATASE 119 U/L (45-117); ALT (GPT) 62 U/L (12-78); ANION GAP 6 MEQ/L (5-15); AST (GOT) 84 U/L (15-37); BICARBONATE 23.1 MEQ/L (21.0-32.0); BLOOD UREA NITROGEN 26 MG/DL (7-18); CHLORIDE 110 MEQ/L (98-107); GLOMERULAR FILTRATION RATE 126 ML/MIN (>89); MAGNESIUM 2.4 MG/DL (1.5-2.5); POTASSIUM 4.2 MEQ/L (3.5-5.1); SODIUM (NA) 139 MEQ/L (136-145); TOTAL BILIRUBIN ADULT 0.6 MG/DL (0.2-1.0)
[2017-02-26 08:08] LABS: BANDS 8 % (0-6); METAMYELOCYTES 3 % (0-1); NEUTROPHIL # MANUAL DIFF 32.2 TH/MM3 (1.8-7.7); POLYS (SEG NEUTROPHILS) 89 % (16-70); WBC DIFF SAMPLE 100
[2017-02-26 08:09] LABS: DOHLE BODIES PRESENT (NONE SEEN); SCAN/DIFF FINAL DIFF MANUAL; TOXIC GRANULATION 1+ (NORMAL)
[2017-02-26 08:10] LABS: ACANTHOCYTES OCC (NORMAL); OVALOCYTES 1+ (NORMAL); PLATELET ESTIMATE SMEAR NORMAL (NORMAL); PLATELET MORPHOLOGY NORMAL (NORMAL)
[2017-02-26] MEDS ORDERED: LISINOPRIL 10 MG TAB PO SCH (09:00)
[2017-02-26] MEDS: MULTIVITAMIN TAB PO SCH (09:00)
[2017-02-26] MEDS: THIAMINE HCL 100 MG TAB PO SCH (09:00)
[2017-02-26] MEDS: MUPIROCIN 2% OINT 1 APPLIC/GM SYR NASAL SCH ×2 (09:35→20:34)
[2017-02-26] MEDS ORDERED: LIDOCAINE HCL 2% 50 ML VIAL ONE (09:35)
[2017-02-26] MEDS ORDERED: BUPIVACAINE HCL PF 0.5% 30 ML VIAL ONE (09:35)
[2017-02-26] MEDS ORDERED: MUPIROCIN 2% OINT 22 GM TUBE ONE (09:35)
[2017-02-26] MEDS: VANCOMYCIN 1,500 MG/NS 500 ML IV SCH ×2 (09:42)
[2017-02-26] MEDS ORDERED: PHARMACY ORDERED LAB ONE ×2 (09:45→21:45)
[2017-02-26] MEDS ORDERED: PHENYLEPH/NS 1000 MCG/10 ML SYR IV ONE (12:00)
[2017-02-26] MEDS ORDERED: PROPOFOL 200 MG/20 ML AMP IV ONE (12:00)
[2017-02-26] MEDS ORDERED: NEOSTIGMINE 3 MG/3 ML SYR IV ONE (12:00)
[2017-02-26] MEDS ORDERED: LACTATED RINGER'S 1000 ML INJ 2,000 ML IV ONE (12:00)
[2017-02-26] MEDS ORDERED: NEOMYCIN/POLYMYXIN 1 ML G.U. IRRIGANT TOPICAL ONE ×2 (13:06→15:47)
--- NOTE | 2017-02-26 16:33 | RADRPT ---
EXAM DATE/TIME: 02/26/2017 14:16 [facility] COMPARISON: CT ANKLE RIGHT W CONTRAST, February 25, 2017, 21:12. INDICATIONS : Hardware removal right ankle. MEDICAL HISTORY : None. SURGICAL HISTORY : None. ENCOUNTER: Initial ACUITY: 1 day PAIN SCORE: Non-responsive. LOCATION: Right Ankle. FINDINGS: 3 spot fluoroscopic images obtained in the operating room during hardware removal demonstrate removal of the fibular screws. The cerclage wires remain present around the distal fibular diaphysis. There are chronic changes in the distal fibula and tibia. CONCLUSION: Spot fluoroscopic images obtained during hardware removal in the distal tibia and fibula. Alexander Acevedo MD on February 26, 2017 at 16:30 Board Certified Radiologist. This report was verified electronically.
--- NOTE | 2017-02-26 17:36 | RADRPT ---
EXAM DATE/TIME: 02/26/2017 17:15 [facility] COMPARISON: ANKLE RIGHT COMPLETE ([id number]), February 24, 2017, 14:05. INDICATIONS : Miss count missing scalpel blade. MEDICAL HISTORY : None. SURGICAL HISTORY : Rt ankle surgery. ENCOUNTER: Initial ACUITY: 1 day PAIN SCORE: Non-responsive. LOCATION: Right Ankle. FINDINGS: I do not see missing scalpel blade. Minimal hardware remains in the distal fibula consisting primari ly of wire wraps. Extensive degenerative changes are evident. CONCLUSION: I see no retained surgical instruments. Isaac Stevesnon MD FACR on February 26, 2017 at 17:34 Board Certified Radiologist. This report was verified electronically.
--- NOTE | 2017-02-26 17:50 | PD.OP ---
Operative Report Preoperative Diagnosis: (1) Abscess of right hand including fingers (2) Abscess of left hand including fingers Postoperative Diagnosis: (1) Abscess of right hand including fingers (2) septic arthritis metacarpophalangeal joint right index finger (3) Abscess of left hand including fingers (4) septic arthritis metacarpophalangeal joint left index finger (5) Infectious tenosynovitis of right wrist extensor Procedure: exploration, incision and drainage right hand abscess arthrotomy wash metacarpophalangeal joint right index finger arthrotomy wash, metacarpophalangeal joint left index finger Anesthesia: general Surgeon: Roque Bullock Parachute Supervisor(s): dhara Operation and Findings: abscess dorsal aspect of the right hand, index finger MP joint abscess index finger MP joint left hand Roque Bullock MD Feb 26, 2017 17:50
[2017-02-26] MEDS ORDERED: DO NOT ADM ANY ANTICOAGULANT DRUGS PRN (17:57)
[2017-02-26] MEDS ORDERED: fentaNYL CITRATE 250 MCG/5 ML AMP ONE (18:16)
[2017-02-26] MEDS: cloNIDine HCL 0.3 MG TAB PO SCH (22:11)
[2017-02-26] MEDS: DIAZEPAM 10 MG TAB PO SCH (22:15)
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
--- NOTE | 2017-02-26 23:03 | MP ---
cc: ROQUE SAGASTUME DATE OF SURGERY 02/26/17 PREOPERATIVE DIAGNOSIS Abscess right hand and abscess left hand. POSTOPERATIVE DIAGNOSIS Abscess dorsal aspect right hand, septic arthritis metacarpal phalangeal joint right index finger, abscess left hand dorsal aspect with septic arthritis metacarpal phalangeal joint left index finger and infectious tenosynovitis right hand extensor tendons. PROCEDURE 1. Exploration, incision and drainage right hand abscess, 2. Arthrotomy wash metacarpal phalangeal joint right index finger, 3. Arthrotomy wash metacarpal phalangeal joint left index finger. SURGEON Dr. Fco Sagastume ANESTHESIA General ESTIMATED BLOOD LOSS 10 mL TOURNIQUET TIME On the right upper extremity 30 minutes, tourniquet time on the left upper extremity was 15 minutes. INDICATIONS The patient is a 61-year-old male with history of alcoholism and delirium who was admitted to the hospital with high fevers. He was found to have infected implants in the right ankle. The patient also was found to have swelling and redness involving both index fingers as well as swelling on the dorsal aspect of the right hand. The patient had elevated white count of 30. He was septic, but had plan for removal of implants in the right ankle and the patient was consented by two physicians as he was unable to sign the consent for exploration and possible arthrotomy right and left index fingers. PROCEDURE IN DETAIL The patient was already on the operating table after podiatry had done with the right ankle incision and drainage and removal of the implants. I took over the case. The right upper extremity was thoroughly prepped and draped. Incision site was marked in a longitudinal fashion over the dorsal aspect of the index finger metacarpal phalangeal joint extending onto the dorsal aspect of the hand measuring about 5-6 cm. After limb elevation, tourniquet was inflated to 250 mmHg. Incision was then made over the proposed incision site. On exploration, there was evidence of bulging of the extensor tendons just proximal to the MP joint of the index finger. Incision was made on the radial aspect of the extensor tendon just proximal to the MP joint. There was evidence of purulent material underneath. The incision was then extended across the distal aspect of the MP joint releasing the proximal third of the sagittal band and exploring the MP joint. There was evidence of necrotic tissue involving the capsule of the MP joint with exposed MP joint with purulent material within the MP joint. The abscess was also tracking underneath the extensor tendon to the dorsal aspect of the hand and the abscess cavity was extending underneath the extensor tendons of the fingers. Excisional debridement of necrotic tissue was carried out from within the MP joint of the index finger. Excisional debridement of necrotic tissue was carried out from the dorsal aspect of the hand underneath the extensor tendons and over the dorsal aspect of the extensor tendons involving the hand. There was no evidence of involvement of the wrist joint. Thorough wash was given using normal saline mixed with irrigant; about 1.5 liter of solution was used. The arthrotomy wound was left open. Tourniquet deflated. Total tourniquet time was 30 minutes. He had good distal circulation. Bleeding points were cauterized with bipolar cautery. Packing of the MP joint of the index finger was carried out with 1/4" Iodoform packing material and another packing material was placed underneath the extensor tendons over the dorsal aspect of the hand. The wound was then loosely approximated 5-0 nylon in a horizontal mattress interrupted fashion. Bulky hand dressing was applied which was held in place by Gillian and Levy wrap. Attention was then directed to the left hand and part was thoroughly prepped and draped. A forearm tourniquet was applied. After limb elevation, tourniquet was inflated to 250 mmHg. Incision was made over the dorsal aspect of the MP joint in a longitudinal fashion measuring about 3-4 cm. The incision deepened. There was evidence of bulging of the extensor tendons dorsally and incision was made between the EIP and EDC of the index finger exposing the MP joint capsule. The capsule was necrotic. There was evidence of purulent material within the joint. There was also evidence of cortical thickening of the dorsal aspect of the neck of the metacarpal. Excisional debridement of necrotic tissue was carried out within the MP joint of the index finger. There was no evidence of involvement of the wrist joint . Small incision was made over the dorsal aspect of the hand corresponding to the extensor tendon. The tendons were exposed. No evidence of purulent material was noted. Extensive soft tissue edema was noted in the region. Thorough wash was given using normal saline mixed with irrigant about 1.5 liters solution used. The MP joint of the index finger was packed with a 1/4 " packing material. The wound was closely reapproximated using 5-0 nylon in a horizontal mattress interrupted fashion. Bulky hand dressing was applied which was held in place by Levy wrap. Tourniquet was deflated. Total tourniquet time was 15 minutes. The patient had good distal circulation after release of tourniquet. The patient was still on table for x-rays of the right ankle. Roque Sagastume MD SE/ /7:28 PM /10:46 PM MTDDiane
--- NOTE | 2017-02-26 23:23 | MP ---
cc: ZBIGNIEW REYES DPM DATE OF SURGERY 02/26/17 1955 SURGEON Fco Reyes DPM PREOPERATIVE DIAGNOSIS 1. Right ankle septic arthritis 2. Right ankle infected hardware 3. Likely right ankle osteomyelitis. POSTOPERATIVE DIAGNOSIS 1. Right ankle septic arthritis 2. Right ankle infected hardware 3. Likely right ankle osteomyelitis. PROCEDURE 1. Right ankle incision and drainage. 2. Right ankle arthrotomy 3. Right ankle removal infected hardware. 4. Right ankle bone biopsy. ANESTHESIOLOGIST Dr. Pascual ANESTHESIA General. HEMOSTASIS Right thigh tourniquet at 300 mmHg for 2 hours. ESTIMATED BLOOD LOSS 100 mL MATERIALS 1/2-inch Iodoform packing and 2-0 nylon, 3-0 nylon PAST HISTORY The patient is a 60-year-old male who presented to the ED being homeless with pain and swelling on the right ankle and he was dropped off by a friend. At bedside, he was not able to answer questions, but on examination presented with a right ankle foot and swelling and pain to subjective palpation. He continued to degenerate with DT tremors. The patient was not able to sign his consent, but the physician and surgeon as well as the anesthesiologist acted as surrogates on his behalf. Given the septic criteria of this patient, it was a life-saving procedure to carry out of this planned procedure. PROCEDURE IN DETAIL The patient brought into the operating room and placed on the operating room table in supine position. After general anesthesia was administered, right ankle was prepped and draped in a usual sterile aseptic manner. Tourniquet was inflated up to 300 mmHg on the right thigh. Attention was then directed to the right medial ankle where using the old incision an incision was carried through skin and soft tissue down to the level of the periosteum. Bleeders were Bovied as tight as necessary. The medial ankle plate was identified and screws removed. However, there was three broken screws in the deep medial tibia. They were very deep and, using a screw removal set, each of the three screws were removed. One of the three resultant screws was imbedded in a agrawal of purulent matter surrounded by soft, spongy and extremely non-supportive bone. There was a significant amount of pus in the medial aspect of the ankle as well as the posterior aspect of the ankle joint. In retrieving these imbedded broken hardware and de-escalating the purulent island of pus in the medial tibia resulted in a significant deficit into the tibial distal one third of the bone. Attention was then directed to the lateral aspect of the leg where the incision was made over the fibula and the hardware was removed including three screws as well as part of the cerclage wire. The cerclage wire was imbedded into the fibula and only the lateral exposed fibula wire was able to be removed. The medial most aspect of the wire was encased into the periosteum as well as the fibula bone and, in order to extricate the imbedded fibula wire, there had been a significant deficit in the fibula with likely resulting in a non-supportive fibula. Cultures x2 were taken off the hardware as well as bone biopsies at the adjacent hardware. This was to indicate if there was any osteomyelitis at the cerclage wire area. The incision was deepened and extended distally to the lateral posterior ankle where a purulent pocket was noted. This was irrigated as well using pulse lavage. A third incision was made on the anterior ankle with care to protect all bleeders. Once again, purulent matter was noted in the anterior ankle joint after capsulotomy. A bone biopsy was also taken of the medial tibia at the area where the most purulent agrawal was identified. The bone was sent to pathology as well as part of the bone sent for aerobic, anaerobic Gram stain culture and sensitivity. There was also a separate culture taken of the deep medial and posterior ankle. The incisions throughout the ankle were pulse lavaged. All purulent matter was explored in all areas. The ankle was then packed using 1/2" Iodoform and then closed loosely with 2-0 and 3-0 nylon. A #15 blade was inadvertently felled off of the hosiery looper table after closure of the ankle. X-rays were taken of the ankle sent to radiology where they were evaluated by radiology and by myself and there was no evidence of a trapped foreign body, specifically a #15 blade. Dry sterile dressings were applied using Adaptic, 4x4s, ABDs and a light Levy wrap. The patient tolerated the lower extremity part of the procedure. He was then followed or continued into surgical intervention for his hand by Dr. Marquis. The patient is at significant risk for limb loss at this point in time, but our main goal is to decompress his septic nature. He will continue to be followed up appropriately while in-house and plan for additional washout with possible vancomycin beads on 02/28/2017. Zbigniew Reyes DPM SR/ /9:04 PM /10:59 PM DAISY
[2017-02-26] MEDS: VANCOMYCIN INJ 1,250 MG in SODIUM CHLOR 0.9% 250 ML INJ 250 ML IV SCH (23:24)
[2017-02-27] VITALS (12 sets, daily range): BP systolic 119–159; BP diastolic 59–98; PULSE 95–118; RESP 19–35; TEMP 97.7–101.9; O2SAT 93–96
[2017-02-27] MEDS: DEXMEDETOMIDINE INJ 200 MCG in SODIUM CHLORIDE 0.9% INJ 50 ML IV SCH ×3 (00:05→13:55)
[2017-02-27] MEDS: PANTOPRAZOLE SODIUM 40 MG VIAL IV PUSH SCH (00:30)
--- NOTE | 2017-02-27 00:59 | RADRPT ---
EXAM DATE/TIME: 02/27/2017 00:36 [place] COMPARISON: No previous studies available for comparison. INDICATIONS : NG tube placement MEDICAL HISTORY : Hypertension. Hepatitis SURGICAL HISTORY : None. ENCOUNTER: Initial ACUITY: 1 day PAIN SCORE: Non-responsive. LOCATION: Abdomen FINDINGS: The exam is limited secondary to motion artifact which limits the interpretation. A nasogastric tube is in place with its tip in the stomach. The bowel gas pattern appears normal. No free air is identif ied. No organomegaly is evident. There is multilevel degenerative change throughout the spine. CONCLUSION: Nasogastric tube within the stomach Harry Lucio MD on February 27, 2017 at 0:57 Board Certified Radiologist. This report was verified electronically.
[2017-02-27] MEDS: SODIUM CHLOR 0.9% 1000 ML INJ 1,000 ML IV SCH ×3 (03:08→18:00)
[2017-02-27] MEDS: DIAZEPAM 10 MG TAB PO SCH ×3 (05:50→22:30)
[2017-02-27] MEDS: cloNIDine HCL 0.3 MG TAB PO SCH ×3 (05:50→22:30)
[2017-02-27 05:51] LABS: HEMATOCRIT 31.7 % (39.0-51.0); MEAN CELL VOLUME 88.1 FL (80.0-100.0); MEAN CORPUSCULAR HEMOGLOBIN 27.9 PG (27.0-34.0); MEAN CORPUSCULAR HGB CONC 31.7 % (32.0-36.0); PLATELET COUNT 174 TH/MM3 (150-450); RED CELL DISTRIBUTION WIDTH 15.5 % (11.6-17.2); WHITE BLOOD COUNT 30.2 TH/MM3 (4.0-11.0)
[2017-02-27] MEDS: CEFEPIME INJ 2,000 MG in SODIUM CHLORIDE 0.9% INJ 100 ML IV SCH (05:51)
[2017-02-27 05:56] LABS: REVIEW FLAG FINAL
[2017-02-27 06:21] LABS: BICARBONATE 21.5 MEQ/L (21.0-32.0); POTASSIUM 3.8 MEQ/L (3.5-5.1)
[2017-02-27] MEDS: FREE WATER G-TUBE SCH ×3 (06:55→22:31)
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
[2017-02-27] MEDS: CHLORHEXIDINE GLUCONATE 2 % 1 PACK (2 CLOTHS)(taper/protocol) TOPICAL SCH (08:08)
[2017-02-27] MEDS: MULTIVITAMIN TAB PO SCH (09:31)
[2017-02-27] MEDS: THIAMINE HCL 100 MG TAB PO SCH (09:31)
[2017-02-27] MEDS: VANCOMYCIN INJ 1,250 MG in SODIUM CHLOR 0.9% 250 ML INJ 250 ML IV SCH ×2 (09:32→22:47)
[2017-02-27] MEDS: ENOXAPARIN SODIUM 40 MG/0.4 ML SYRINGE SQ SCH (09:35)
[2017-02-27] MEDS: MUPIROCIN 2% OINT 1 APPLIC/GM SYR NASAL SCH ×2 (11:41→20:24)
--- NOTE | 2017-02-27 14:55 | HHI.IDPN ---
Note Infectious Disease Note ID Coverage. D/W RN. Patient wet to OR yesterday evening. Removal of hardware from r. ankle. Noted to have a pocket of pus adjacent to and in contact with the hardware. Could not remove all of the wires per podiatry. Embedded in deep tissue. Not arousing for me. On NC. Moans occasionally. Increased temp this am. Culture form both index fingers has MRSA. R ankle culture - and distal fibula 02/26 MRSA. Blood culture 02/24, 02/25 - MRSA. ROS - General Review of Systems ROS Limitations: Altered Mental Status PFSH Past Family Social History Allergies: Coded Allergies: Cipro (Verified Adverse Reaction, Intermediate, Dizziness, 02/24/17) *MDRO Multi-Drug Resistant Organism (Verified Adverse Reaction, Unknown, ) MRSA (blood)+(urine) 02/24/17 MRSA PCR screen positive 02/25/17 Past Medical History hypertension alcoholism Hepatitis C Past Surgical History right foot surgery with hardware in place. Reported Medications Reported Meds & Active Scripts Active Flexeril (Cyclobenzaprine HCl) 10 Mg Tab 10 Mg PO TID Lisinopril 10 Mg Tab 10 Mg PO DAILY Reported Naproxen Sodium 220 Mg Tab 220 Mg PO BID PRN OBJECTIVE: Vital Signs Date Time Temp Pulse Resp B/P Pulse Ox O2 Delivery O2 Flow Rate FiO2 02/27/17 12:00 98.3 103 33 159/77 96 02/27/17 12:00 103 02/27/17 10:00 99 02/27/17 08:00 98.8 104 19 145/77 96 02/27/17 08:00 104 02/27/17 07:10 96 Nasal Cannula 2.00 02/27/17 07:00 97 Nasal Cannula 3.00 02/27/17 06:00 109 02/27/17 04:00 103 02/27/17 04:00 97.7 103 33 135/65 95 02/27/17 02:00 99 02/27/17 00:00 101.9 95 26 119/59 93 02/27/17 00:00 95 02/26/17 22:00 100 02/26/17 20:00 95 02/26/17 20:00 100.0 96 27 141/78 97 02/26/17 19:05 96 Nasal Cannula 2.00 8/4/17 18:30 95 Nasal Cannula 2.00 02/26/17 18:30 86 02/26/17 18:25 77 16 126/74 96 Nasal Cannula 3 02/26/17 18:15 99.4 78 16 128/88 96 Nasal Cannula 3 02/26/17 18:00 76 16 140/78 95 Nasal Cannula 3 02/26/17 17:55 98.1 76 16 140/86 95 Nasal Cannula 3 02/26/17 02/26/17 02/27/17 14:59 22:59 06:59 Intake Total 935 ml 2641 ml 1222 ml Output Total 200 ml 1225 ml 400 ml Balance 735 ml 1416 ml 822 ml IV Total 935 ml 841 ml 1126 ml Tube Feeding 96 ml Other 1800 ml Output Urine Total 200 ml 925 ml 400 ml Estimated Blood Loss 300 ml # Bowel Movements 0 Laboratory Tests Test 02/26/17 02/27/17 06:59 05:22 White Blood Count 32.2 TH/MM3 30.2 TH/MM3 Red Blood Count 3.99 MIL/MM3 3.60 MIL/MM3 Hemoglobin 11.5 GM/DL 10.1 GM/DL Hematocrit 34.8 % 31.7 % Mean Corpuscular Volume 87.3 FL 88.1 FL Mean Corpuscular Hemoglobin 28.9 PG 27.9 PG Mean Corpuscular Hemoglobin 33.0 % 31.7 % Concent Red Cell Distribution Width 15.0 % 15.5 % Platelet Count 182 TH/MM3 174 TH/MM3 Mean Platelet Volume 9.5 FL 9.1 FL Neutrophils (%) (Auto) % Lymphocytes (%) (Auto) % Monocytes (%) (Auto) % Eosinophils (%) (Auto) % Basophils (%) (Auto) % Neutrophils # (Auto) TH/MM3 Lymphocytes # (Auto) TH/MM3 Monocytes # (Auto) TH/MM3 Eosinophils # (Auto) TH/MM3 Basophils # (Auto) TH/MM3 CBC Comment AUTO DIFF Differential Total Cells 100 Counted Neutrophils % (Manual) 89 % Band Neutrophils % 8 % Neutrophils # (Manual) 32.2 TH/MM3 Metamyelocytes 3 % Differential Comment FINAL DIFF MANUAL Toxic Granulation 1+ Toxic Vacuolation Dohle Bodies PRESENT Platelet Estimate NORMAL Platelet Morphology Comment NORMAL Ovalocytes 1+ Acanthocytes OCC Laboratory Tests Test 02/25/17 02/26/17 02/27/17 20:35 06:59 05:22 Lactic Acid Level 1.2 mmol/L Sodium Level 139 MEQ/L 146 MEQ/L Potassium Level 4.2 MEQ/L 3.8 MEQ/L Chloride Level 110 MEQ/L 115 MEQ/L Carbon Dioxide Level 23.1 MEQ/L 21.5 MEQ/L Anion Gap 6 MEQ/L 10 MEQ/L Blood Urea Nitrogen 26 MG/DL 26 MG/DL Creatinine 0.64 MG/DL 0.85 MG/DL Estimat Glomerular Filtration 126 ML/MIN 91 ML/MIN Rate Random Glucose 93 MG/DL 100 MG/DL Calcium Level 7.7 MG/DL 7.6 MG/DL Phosphorus Level 2.0 MG/DL 4.0 MG/DL Magnesium Level 2.4 MG/DL Total Bilirubin 0.6 MG/DL Aspartate Amino Transf 84 U/L (AST/SGOT) Alanine Aminotransferase 62 U/L (ALT/SGPT) Alkaline Phosphatase 119 U/L C-Reactive Protein 12.00 MG/DL Total Protein 5.6 GM/DL Albumin 1.3 GM/DL Microbiology Date/Time Procedure Status Source Growth 02/24/17 15:41 Urine Culture - Final Complete Urine Clean Catch S. Aureus Mrsa 02/25/17 19:05 Aerobic Blood Culture - Final Resulted Blood Peripheral S. Aureus Mrsa 02/25/17 19:05 Anaerobic Blood Culture - Preliminary Resulted Blood Peripheral NO GROWTH IN 2 DAYS 02/25/17 19:50 Aerobic Blood Culture - Final Resulted Blood Peripheral S. Aureus Mrsa 02/25/17 19:50 Anaerobic Blood Culture - Preliminary Resulted Blood Peripheral NO GROWTH IN 2 DAYS 02/26/17 14:50 Gram Stain - Final Resulted Wound Ankle 02/26/17 14:50 Wound Culture - Preliminary Resulted Staphylococcus Aureus 02/26/17 14:50 Acid Fast Stain Worksheet Wound Ankle Pending 02/26/17 14:50 Mycobacterial Culture Worksheet Wound Ankle Pending 02/26/17 14:50 Fungal Smear - Final Resulted Wound Ankle NO FUNGAL ELEMENTS SEEN. 02/26/17 14:50 Fungal Culture Resulted Wound Ankle Pending 02/26/17 14:50 Gram Stain - Final Resulted Wound Leg 02/26/17 14:50 Wound Culture - Preliminary Resulted Staphylococcus Aureus 02/26/17 14:50 Acid Fast Stain Worksheet Wound Leg Pending 02/26/17 14:50 Mycobacterial Culture Worksheet Wound Leg Pending 02/26/17 14:50 Fungal Smear - Final Resulted Wound Leg NO FUNGAL ELEMENTS SEEN. 02/26/17 14:50 Fungal Culture Resulted Wound Leg Pending 02/26/17 14:50 Gram Stain - Final Resulted Wound Leg 02/26/17 14:50 Wound Culture - Preliminary Resulted Staphylococcus Aureus 02/26/17 14:50 Acid Fast Stain Worksheet Wound Leg Pending 02/26/17 14:50 Mycobacterial Culture Worksheet Wound Leg Pending 02/26/17 14:50 Fungal Smear - Final Resulted Wound Leg NO FUNGAL ELEMENTS SEEN. 02/26/17 14:50 Fungal Culture Resulted Wound Leg Pending 02/26/17 14:50 Gram Stain - Final Resulted Wound Leg 02/26/17 14:50 Wound Culture - Preliminary Resulted Staphylococcus Aureus 02/26/17 14:50 Acid Fast Stain Worksheet Wound Leg Pending 02/26/17 14:50 Mycobacterial Culture Worksheet Wound Leg Pending 02/26/17 14:50 Fungal Smear - Final Resulted Wound Leg NO FUNGAL ELEMENTS SEEN. 02/26/17 14:50 Fungal Culture Resulted Wound Leg Pending 02/26/17 14:50 Gram Stain - Final Resulted Wound Finger 02/26/17 14:50 Wound Culture - Preliminary Resulted S. Aureus Mrsa 02/26/17 14:50 Acid Fast Stain Received Wound Finger Pending 02/26/17 14:50 Mycobacterial Culture Received Wound Finger Pending 02/26/17 14:50 Fungal Smear - Final Resulted Wound Finger NO FUNGAL ELEMENTS SEEN. 02/26/17 14:50 Fungal Culture Resulted Wound Finger Pending 02/26/17 14:50 Gram Stain - Final Resulted Wound Finger 02/26/17 14:50 Wound Culture - Preliminary Resulted S. Aureus Mrsa 02/26/17 14:50 Acid Fast Stain Worksheet Wound Finger Pending 02/26/17 14:50 Mycobacterial Culture Worksheet Wound Finger Pending 02/26/17 14:50 Fungal Smear - Final Resulted Wound Finger NO FUNGAL ELEMENTS SEEN. 02/26/17 14:50 Fungal Culture Resulted Wound Finger Pending 02/27/17 05:16 Aerobic Blood Culture Received Blood Peripheral Pending 02/27/17 05:16 Anaerobic Blood Culture Received Blood Peripheral Pending 02/27/17 05:22 Aerobic Blood Culture Received Blood Peripheral Pending 02/27/17 05:22 Anaerobic Blood Culture Received Blood Peripheral Pending GENERAL: Patient is in no acute distress. Lethargic. HEENT: EOMI, No icterus. NECK: Supple. No swelling or adenopathy. LUNGS: Slight basilar rhonchi. CARDIAC: Regular rate and rhythm. No murmur. ABDOMEN: Soft, unable to appreciate tenderness. EXTREMITIES: No R ankle dressing and kennedy UE dressing at hands. SKIN: No rash. Assessment and Plan Sepsis secondary to MRSA bacteremia and right foot hardware infection. Possible Endocarditis. MRSA bacteremia likely secondary to right foot hardware infection. Bilateral hand cellulitis ? septic arthritis of knuckles of index finger. MRSA. Acute metabolic encephalopathy: DT, infection. HTN Delirium Tremens. Alcoholism. Hepatitis C. Recs: Continue Vanco IV (target 15-20) Stop Cefepime IV Add Rifampin. Check 2D ECHO (r/o endocarditis, MRSA bacteremia pt) Follow repeat blood cultures Chilo Lechuga MD Feb 27, 2017 14:55
[2017-02-27] MEDS: RIFAMPIN INJ 300 MG in SODIUM CHLORIDE 0.9% INJ 100 ML IV SCH (15:54)
--- NOTE | 2017-02-27 19:00 | PD.POD ---
Subjective Podiatric Problems POD #1 s/p R ankle I and D, hardware removal, bone biopsy. Sedated in bed. Past Med/Surg/Social History Past Surgical History Gastrointestinal: DENIES HX OF: Colectomy, total Social History Smoking Status: Current Every Day Smoker Objective Vital Signs Vital Signs Date Time Temp Pulse Resp B/P Pulse Ox O2 Delivery O2 Flow Rate FiO2 02/27/17 16:00 98.3 111 30 131/98 95 02/27/17 16:00 111 02/27/17 14:00 118 02/27/17 12:00 98.3 103 33 159/77 96 02/27/17 12:00 103 02/27/17 10:00 99 02/27/17 08:00 98.8 104 19 145/77 96 02/27/17 08:00 104 02/27/17 07:10 96 Nasal Cannula 2.00 02/27/17 07:00 97 Nasal Cannula 3.00 02/27/17 06:00 109 02/27/17 04:00 103 02/27/17 04:00 97.7 103 33 135/65 95 02/27/17 02:00 99 02/27/17 00:00 101.9 95 26 119/59 93 02/27/17 00:00 95 02/26/17 22:00 100 02/26/17 20:00 95 02/26/17 20:00 100.0 96 27 141/78 97 02/26/17 19:05 96 Nasal Cannula 2.00 Coded Allergies: Cipro (Verified Adverse Reaction, Intermediate, Dizziness, 02/24/17) *MDRO Multi-Drug Resistant Organism (Verified Adverse Reaction, Unknown, ) MRSA (blood)+(urine) 02/24/17 MRSA PCR screen positive 02/25/17 Other Results Laboratory Tests Test 02/24/17 02/24/17 02/24/17 02/25/17 13:40 13:45 15:41 02:04 Prothrombin Time 12.4 SEC Prothromb Time International 1.1 RATIO Ratio Activated Partial 26.8 SEC Thromboplast Time Ammonia 17 MCMOL/L Total Creatine Kinase 277 U/L Creatine Kinase MB 7.1 NG/ML Troponin I 0.02 NG/ML Ethyl Alcohol Level LESS THAN 3 MG/DL Lymphocytes % 1 % Urine Opiates Screen NEG Urine Barbiturates Screen NEG Urine Amphetamines Screen NEG Urine Benzodiazepines Screen NEG Urine Cocaine Screen NEG Urine Cannabinoids Screen NEG Urine Color YELLOW Urine Turbidity HAZY Urine pH 6.5 Urine Specific [place] 1.021 Urine Protein 30 mg/dL Urine Glucose (UA) NEG mg/dL Urine Ketones TRACE mg/dL Urine Occult Blood NEG Urine Nitrite NEG Urine Bilirubin NEG Urine Urobilinogen LESS THAN 2.0 MG/DL Urine Leukocyte Esterase NEG Urine RBC LESS THAN 1 /hpf Urine WBC 2 /hpf Urine Squamous Epithelial <1 /hpf Cells Urine Bacteria MOD /hpf Urine Hyaline Casts 5 /lpf Microscopic Urinalysis Comment CULTURE INDICATED Vitamin B12 Level GREATER THAN 2000 PG/ML Folate 11.5 NG/ML Test 02/25/17 02/25/17 02/25/17 02/25/17 07:02 17:45 20:35 22:43 Monocytes % 1 % Red Cell Morphology Comment NORMAL Nasal Screen MRSA (PCR) MRSA DETECTED Lactic Acid Level 1.2 mmol/L Blood Gas Puncture Site RT RADIAL Blood Gas Patient Temperature 98.6 Blood Gas HCO3 24 mmol/L Blood Gas Base Excess 0.3 mmol/L Blood Gas Oxygen Saturation 96 % Arterial Blood pH 7.42 Arterial Blood Partial 38 mmHg Pressure CO2 Arterial Blood Partial 115 mmHg Pressure O2 Arterial Blood Oxygen Content 15.1 Vol % Arterial Blood 0.7 % Carboxyhemoglobin Arterial Blood Methemoglobin 1.0 % Blood Gas Hemoglobin 11.0 G/DL Oxygen Delivery Device NASAL CANNULA Blood Gas Liter Flow 4 L/M Test 02/26/17 02/26/17 02/27/17 06:59 21:20 05:22 Neutrophils (%) (Auto) % Lymphocytes (%) (Auto) % Monocytes (%) (Auto) % Eosinophils (%) (Auto) % Basophils (%) (Auto) % Neutrophils # (Auto) TH/MM3 Lymphocytes # (Auto) TH/MM3 Monocytes # (Auto) TH/MM3 Eosinophils # (Auto) TH/MM3 Basophils # (Auto) TH/MM3 CBC Comment AUTO DIFF Differential Total Cells 100 Counted Neutrophils % (Manual) 89 % Band Neutrophils % 8 % Neutrophils # (Manual) 32.2 TH/MM3 Metamyelocytes 3 % Differential Comment FINAL DIFF MANUAL Toxic Granulation 1+ Toxic Vacuolation Dohle Bodies PRESENT Platelet Estimate NORMAL Platelet Morphology Comment NORMAL Ovalocytes 1+ Acanthocytes OCC Magnesium Level 2.4 MG/DL Total Bilirubin 0.6 MG/DL Aspartate Amino Transf 84 U/L (AST/SGOT) Alanine Aminotransferase 62 U/L (ALT/SGPT) Alkaline Phosphatase 119 U/L C-Reactive Protein 12.00 MG/DL Total Protein 5.6 GM/DL Albumin 1.3 GM/DL Hepatitis A IgM Antibody NEGATIVE Hepatitis B Surface Antigen NEGATIVE Hepatitis B Core IgM Antibody NEGATIVE Hepatitis C Antibody REACTIVE HIV (1&2) Antibody NEGATIVE Blood Type B NEGATIVE Antibody Screen NEGATIVE Blood Bank Comment Vancomycin Level Trough 21.0 MCG/ML White Blood Count 30.2 TH/MM3 Red Blood Count 3.60 MIL/MM3 Hemoglobin 10.1 GM/DL Hematocrit 31.7 % Mean Corpuscular Volume 88.1 FL Mean Corpuscular Hemoglobin 27.9 PG Mean Corpuscular Hemoglobin 31.7 % Concent Red Cell Distribution Width 15.5 % Platelet Count 174 TH/MM3 Mean Platelet Volume 9.1 FL Sodium Level 146 MEQ/L Potassium Level 3.8 MEQ/L Chloride Level 115 MEQ/L Carbon Dioxide Level 21.5 MEQ/L Anion Gap 10 MEQ/L Blood Urea Nitrogen 26 MG/DL Creatinine 0.85 MG/DL Estimat Glomerular Filtration 91 ML/MIN Rate Random Glucose 100 MG/DL Calcium Level 7.6 MG/DL Phosphorus Level 4.0 MG/DL Exam-Podiatry Dermatological Exam Ulcers: Location/Measurements RLE + serous drainage to outer dressing. LE is warm. Assessment & Plan Diagnosis: (1) Sepsis Status: Acute (2) Right foot infection Status: Acute A/P POD #1 s/p R ankle I and D, hardware removal, bone biopsy. Plan for OR on 02/28/[address] Mcclellan. Patient at risk for RLE BK. Discussed with patient father over the phone on 02/27/17 Problem Qualifiers (1) Sepsis: Qualified Code: A41.9 - Sepsis, due to unspecified organism Sharon Reyes DPM Feb 27, 2017 18:59
[2017-02-27] MEDS: LORazepam 2 MG/ML VIAL IV PUSH PRN (20:57)
[2017-02-27] MEDS ORDERED: PHARMACY ORDERED LAB ONE (21:45)
[2017-02-28] VITALS (13 sets, daily range): BP systolic 128–156; BP diastolic 42–95; PULSE 70–110; RESP 17–36; TEMP 98.6–99.8; O2SAT 95–98
[2017-02-28] MEDS: PANTOPRAZOLE SODIUM 40 MG VIAL IV PUSH SCH (01:49)
[2017-02-28] MEDS: LORazepam 2 MG/ML VIAL IV PUSH PRN (01:54)
[2017-02-28] MEDS: RIFAMPIN INJ 300 MG in SODIUM CHLORIDE 0.9% INJ 100 ML IV SCH ×2 (03:19→14:27)
[2017-02-28] MEDS: SODIUM CHLOR 0.9% 1000 ML INJ 1,000 ML IV SCH ×3 (03:20→16:28)
[2017-02-28] MEDS: CHLORHEXIDINE GLUCONATE 2 % 1 PACK (2 CLOTHS)(taper/protocol) TOPICAL SCH (05:01)
[2017-02-28] MEDS: cloNIDine HCL 0.3 MG TAB PO SCH ×3 (05:56→22:15)
[2017-02-28] MEDS: DIAZEPAM 10 MG TAB PO SCH ×3 (05:56→22:15)
[2017-02-28] MEDS: FREE WATER G-TUBE SCH ×5 (05:57→20:00)
[2017-02-28 06:01] LABS: HEMATOCRIT 30.5 % (39.0-51.0); MEAN CORPUSCULAR HEMOGLOBIN 28.8 PG (27.0-34.0); MEAN CORPUSCULAR HGB CONC 33.1 % (32.0-36.0); PLATELET COUNT 176 TH/MM3 (150-450); WHITE BLOOD COUNT 33.3 TH/MM3 (4.0-11.0)
[2017-02-28 06:15] LABS: REVIEW FLAG FINAL
[2017-02-28 06:26] LABS: BICARBONATE 23.9 MEQ/L (21.0-32.0); POTASSIUM 3.3 MEQ/L (3.5-5.1)
[2017-02-28] MEDS: POTASSIUM CHLOR 20 MEQ PREMIX 100 ML IV PRN (06:39)
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
[2017-02-28] MEDS: MUPIROCIN 2% OINT 1 APPLIC/GM SYR NASAL SCH ×2 (09:00→22:15)
[2017-02-28] MEDS: THIAMINE HCL 100 MG TAB PO SCH (09:00)
[2017-02-28] MEDS: MULTIVITAMIN TAB PO SCH (09:00)
[2017-02-28] MEDS ORDERED: VANCOMYCIN HCL 1000 MG VIAL ONE ×4 (09:01→10:42)
[2017-02-28] MEDS: ENOXAPARIN SODIUM 40 MG/0.4 ML SYRINGE SQ SCH (10:00)
[2017-02-28] MEDS: VANCOMYCIN INJ 1,250 MG in SODIUM CHLOR 0.9% 250 ML INJ 250 ML IV SCH ×2 (10:00→22:15)
--- NOTE | 2017-02-28 10:30 | PD.OP ---
Operative Report Preoperative Diagnosis: (1) septic arthritis metacarpophalangeal joint right index finger (2) septic arthritis metacarpophalangeal joint left index finger (3) Infectious tenosynovitis of right wrist extensor Postoperative Diagnosis: (1) septic arthritis metacarpophalangeal joint right index finger (2) septic arthritis metacarpophalangeal joint left index finger (3) Infectious tenosynovitis of right wrist extensor Procedure: exploration, wash, excisional debridement right index finger MP joint wash, excisional debridement extensor pollicis longus right thumb/hand exploration, wash, excisional debridement left index finger MP joint Anesthesia: general Surgeon: Roque Bullock External Grinder Tender(s): dhara Operation and Findings: minimal purulence and necrotic tissue within the MP joint right and left index fingers purulence and necrotic tissue EPL tendon sheath right thumb and hand Roque Bullock MD Feb 28, 2017 10:30
[2017-02-28] MEDS ORDERED: VANCOMYCIN 500 MG VIAL ONE (10:42)
[2017-02-28] MEDS ORDERED: DO NOT ADM ANY ANTICOAGULANT DRUGS PRN (11:33)
[2017-02-28] MEDS ORDERED: fentaNYL CITRATE 250 MCG/5 ML AMP ONE (11:48)
[2017-02-28] MEDS ORDERED: LACTATED RINGER'S 1000 ML INJ 2,000 ML IV ONE (12:00)
[2017-02-28] MEDS ORDERED: PROPOFOL 200 MG/20 ML AMP IV ONE (12:00)
[2017-02-28] MEDS ORDERED: NEOSTIGMINE 3 MG/3 ML SYR IV ONE (12:00)
[2017-02-28] MEDS: DAPTOmycin INJ 450 MG in SODIUM CHLORIDE 0.9% INJ 100 ML IV SCH (12:31)
--- NOTE | 2017-02-28 15:31 | MP ---
cc: FILIBERTO SAGASTUME MD DATE OF SURGERY: 02/28/2017. PREOPERATIVE DIAGNOSIS: Septic arthritis, bilateral index finger metacarpophalangeal joint and infection extensor tenosynovitis right hand. POSTOPERATIVE DIAGNOSIS: Septic arthritis, index finger metacarpophalangeal joint right and left with infectious extensor tenosynovitis involving the extensor pollicis longus tendon right hand. OPERATIVE PROCEDURE PERFORMED: 1. Exploration, wash, excisional debridement index finger metacarpophalangeal joint right hand. 2. Exploration, wash, excisional debridement metacarpophalangeal joint left index finger. 3. Exploration, wash, excisional debridement extensor pollicis longus tendon right thumb and hand. SURGEON: Filiberto Sagastume M.D. ANESTHESIA: General. ESTIMATED BLOOD LOSS: 10 cc. TOURNIQUET TIME: On the left side was 12 minutes. On the right side was 35 minutes. DISPOSITION: The patient is still on the table for right ankle surgery. INDICATIONS FOR THE PROCEDURE: The patient is a 61-year-old diagnosed with MRSA infection. He had infection over the right ankle region with implants in place which were taken out by podiatry. The patient also had exploration of bilateral index finger MP joints which were septic. The patient's blood cultures were positive for MRSA. He also had positive cultures of MRSA in both index finger MP joints. The patient underwent incision and drainage and excisional debridement two days ago. He was brought again today for repeat procedure. The consent was obtained from the patient's father. DESCRIPTION OF THE PROCEDURE IN DETAIL: The patient was brought to the operating room and both upper extremities were thoroughly prepped and draped. Immediately attention was directed to the left hand. After limb elevation, the tourniquet was inflated to 250 mmHg. The previously placed sutures were removed and the MP joint was exposed. There was evidence of minimal purulence and minimal necrotic tissue within the MP joint which was debrided using sharp and blunt dissection with a rongeur. The extensor tendon sheath of the index finger over the hand region was involved which was debrided. Thorough wash was done using normal saline mixed with Vancomycin and hydrogen peroxide. The tourniquet was deflated. The total tourniquet time was 12 minutes. Packing of the wounds was carried out and the wounds were loosely approximated using 4-0 nylon in a horizontal mattress interrupted fashion. A bulky hand dressing was applied, which was held in place by [employer]. Attention was then directed to the right hand. After limb elevation, the tourniquet was inflated to 250 mmHg. The previously placed sutures were removed. On further exploration, the MP joint had minimal necrotic tissue with minimal purulence. Excisional debridement of necrotic tissue was carried out. A thorough wash was done using normal saline mixed with Vancomycin and hydrogen peroxide. The patient had swelling over the extensor pollicis longus tendon over the MP joint region and over the hand region. A longitudinal incision was made over the first metacarpal region and further exploration showed evidence of purulence within the extensor pollicis longus tendon sheath with a lot of necrotic tissue. Drainage of the purulence was carried out and excisional debridement of necrotic soft tissues was carried out. A small incision was made just distal to the extensor retinaculum. Minimal purulence was noted within that region of the extensor pollicis longus tendon. A thorough wash was done using normal saline mixed with Vancomycin and hydrogen peroxide. Packing of the wounds was carried out. The tourniquet was deflated. The total tourniquet time was 35 minutes. The patient had good distal circulation after release of the tourniquet. The skin incision was loosely approximated using 4-0 nylon in a horizontal mattress interrupted fashion. A bulky hand dressing was applied which was held in place with a bias hand wrap. The patient was still on the table for his right ankle surgery. Filiberto Sagastume MD SE/LANA /10:31 AM /2:11 PM DAISY
--- NOTE | 2017-02-28 15:59 | HHI.IDPN ---
Note Infectious Disease Note ID Coverage. D/W RN. Patient wet for more debridement of hands and feet this am. Briefly arouses. Moans occasionally. Temp lower. Removal of hardware from r. ankle 02/27. Noted to have a pocket of pus adjacent to and in contact with the hardware. Could not remove all of the wires per podiatry. Embedded in deep tissue. Culture form both index fingers has MRSA. R ankle culture - and distal fibula 02/26 MRSA. Blood culture 02/24, 02/25 - MRSA. Review of Systems ROS Limitations: Altered Mental Status Allergies: Coded Allergies: Cipro (Verified Adverse Reaction, Intermediate, Dizziness, 02/24/17) *MDRO Multi-Drug Resistant Organism (Verified Adverse Reaction, Unknown, ) MRSA (blood)+(urine) 02/24/17 MRSA PCR screen positive 02/25/17 Past Medical History hypertension alcoholism Hepatitis C Past Surgical History right foot surgery with hardware in place. Reported Medications Reported Meds & Active Scripts Active Flexeril (Cyclobenzaprine HCl) 10 Mg Tab 10 Mg PO TID Lisinopril 10 Mg Tab 10 Mg PO DAILY Reported Naproxen Sodium 220 Mg Tab 220 Mg PO BID PRN OBJECTIVE: Vital Signs Date Time Temp Pulse Resp B/P Pulse Ox O2 Delivery O2 Flow Rate FiO2 02/28/17 14:00 90 02/28/17 12:15 98.0 89 16 145/71 94 Nasal Cannula 3 02/28/17 12:00 91 17 145/69 94 Nasal Cannula 3 02/28/17 12:00 88 02/28/17 12:00 98.6 70 17 128/58 98 02/28/17 11:45 87 16 134/67 94 Nasal Cannula 3 02/28/17 11:41 97.8 86 15 134/64 94 Nasal Cannula 3 02/28/17 07:19 97 Nasal Cannula 2.00 02/28/17 07:00 95 Nasal Cannula 3.00 02/28/17 06:00 98 02/28/17 04:11 98 Nasal Cannula 2.00 02/28/17 04:00 98.7 98 31 152/95 95 02/28/17 04:00 98 02/28/17 02:00 100 02/28/17 00:00 103 02/28/17 00:00 99.8 103 36 151/82 95 02/27/17 22:00 116 02/27/17 20:00 118 02/27/17 20:00 99.6 118 35 153/93 96 02/27/17 19:00 94 Nasal Cannula 3.00 02/27/17 16:00 98.3 111 30 131/98 95 02/27/17 16:00 111 Laboratory Tests Test 02/27/17 02/28/17 05:22 05:41 White Blood Count 30.2 TH/MM3 33.3 TH/MM3 Red Blood Count 3.60 MIL/MM3 3.50 MIL/MM3 Hemoglobin 10.1 GM/DL 10.1 GM/DL Hematocrit 31.7 % 30.5 % Mean Corpuscular Volume 88.1 FL 87.0 FL Mean Corpuscular Hemoglobin 27.9 PG 28.8 PG Mean Corpuscular Hemoglobin 31.7 % 33.1 % Concent Red Cell Distribution Width 15.5 % 15.0 % Platelet Count 174 TH/MM3 176 TH/MM3 Mean Platelet Volume 9.1 FL 9.8 FL Laboratory Tests Test 02/27/17 02/28/17 05:22 05:41 Sodium Level 146 MEQ/L 148 MEQ/L Potassium Level 3.8 MEQ/L 3.3 MEQ/L Chloride Level 115 MEQ/L 118 MEQ/L Carbon Dioxide Level 21.5 MEQ/L 23.9 MEQ/L Anion Gap 10 MEQ/L 6 MEQ/L Blood Urea Nitrogen 26 MG/DL 25 MG/DL Creatinine 0.85 MG/DL 0.86 MG/DL Estimat Glomerular Filtration 91 ML/MIN 90 ML/MIN Rate Random Glucose 100 MG/DL 132 MG/DL Calcium Level 7.6 MG/DL 7.5 MG/DL Phosphorus Level 4.0 MG/DL Microbiology Date/Time Procedure Status Source Growth 02/25/17 19:05 Aerobic Blood Culture - Final Resulted Blood Peripheral S. Aureus Mrsa 02/25/17 19:05 Anaerobic Blood Culture - Preliminary Resulted Blood Peripheral NO GROWTH IN 3 DAYS 02/25/17 19:50 Aerobic Blood Culture - Final Resulted Blood Peripheral S. Aureus Mrsa 02/25/17 19:50 Anaerobic Blood Culture - Preliminary Resulted Blood Peripheral NO GROWTH IN 3 DAYS 02/26/17 14:50 Gram Stain - Final Complete Wound Ankle 02/26/17 14:50 Wound Culture - Final Complete S. Aureus Mrsa 02/26/17 14:50 Acid Fast Stain - Final Resulted Wound Ankle NO ACID FAST BACILLI SEEN 02/26/17 14:50 Mycobacterial Culture Resulted Wound Ankle Pending 02/26/17 14:50 Fungal Smear - Final Resulted Wound Ankle NO FUNGAL ELEMENTS SEEN. 02/26/17 14:50 Fungal Culture Resulted Wound Ankle Pending 02/26/17 14:50 Gram Stain - Final Complete Wound Leg 02/26/17 14:50 Wound Culture - Final Complete S. Aureus Mrsa 02/26/17 14:50 Acid Fast Stain - Final Resulted Wound Leg NO ACID FAST BACILLI SEEN 02/26/17 14:50 Mycobacterial Culture Resulted Wound Leg Pending 02/26/17 14:50 Fungal Smear - Final Resulted Wound Leg NO FUNGAL ELEMENTS SEEN. 02/26/17 14:50 Fungal Culture Resulted Wound Leg Pending 02/26/17 14:50 Gram Stain - Final Complete Wound Leg 02/26/17 14:50 Wound Culture - Final Complete S. Aureus Mrsa 02/26/17 14:50 Acid Fast Stain - Final Resulted Wound Leg NO ACID FAST BACILLI SEEN 02/26/17 14:50 Mycobacterial Culture Resulted Wound Leg Pending 02/26/17 14:50 Fungal Smear - Final Resulted Wound Leg NO FUNGAL ELEMENTS SEEN. 02/26/17 14:50 Fungal Culture Resulted Wound Leg Pending 02/26/17 14:50 Gram Stain - Final Complete Wound Leg 02/26/17 14:50 Wound Culture - Final Complete S. Aureus Mrsa 02/26/17 14:50 Acid Fast Stain - Final Resulted Wound Leg NO ACID FAST BACILLI SEEN 02/26/17 14:50 Mycobacterial Culture Resulted Wound Leg Pending 02/26/17 14:50 Fungal Smear - Final Resulted Wound Leg NO FUNGAL ELEMENTS SEEN. 02/26/17 14:50 Fungal Culture Resulted Wound Leg Pending 02/26/17 14:50 Gram Stain - Final Complete Wound Finger 02/26/17 14:50 Wound Culture - Final Complete S. Aureus Mrsa 02/26/17 14:50 Acid Fast Stain - Final Resulted Wound Finger NO ACID FAST BACILLI SEEN 02/26/17 14:50 Mycobacterial Culture Resulted Wound Finger Pending 02/26/17 14:50 Fungal Smear - Final Resulted Wound Finger NO FUNGAL ELEMENTS SEEN. 02/26/17 14:50 Fungal Culture Resulted Wound Finger Pending 02/26/17 14:50 Gram Stain - Final Complete Wound Finger 02/26/17 14:50 Wound Culture - Final Complete S. Aureus Mrsa 02/26/17 14:50 Acid Fast Stain - Final Resulted Wound Finger NO ACID FAST BACILLI SEEN 02/26/17 14:50 Mycobacterial Culture Resulted Wound Finger Pending 02/26/17 14:50 Fungal Smear - Final Resulted Wound Finger NO FUNGAL ELEMENTS SEEN. 02/26/17 14:50 Fungal Culture Resulted Wound Finger Pending 02/27/17 05:16 Aerobic Blood Culture - Preliminary Resulted Blood Peripheral Gram Positive Cocci 02/27/17 05:16 Anaerobic Blood Culture - Preliminary Resulted Blood Peripheral NO GROWTH IN 1 DAY 02/27/17 05:22 Aerobic Blood Culture - Preliminary Resulted Blood Peripheral Gram Positive Cocci 02/27/17 05:22 Anaerobic Blood Culture - Preliminary Resulted Blood Peripheral NO GROWTH IN 1 DAY 02/28/17 10:50 Gram Stain Received Wound Leg Pending 02/28/17 10:50 Wound Culture Received Wound Leg Pending 02/28/17 10:50 Acid Fast Stain Received Wound Leg Pending 02/28/17 10:50 Mycobacterial Culture Received Wound Leg Pending 02/28/17 10:50 Fungal Smear Received Wound Leg Pending 02/28/17 10:50 Fungal Culture Received Wound Leg Pending 02/28/17 10:51 Gram Stain Received Wound Ankle Pending 02/28/17 10:51 Wound Culture Received Wound Ankle Pending 02/28/17 10:51 Acid Fast Stain Received Wound Ankle Pending 02/28/17 10:51 Mycobacterial Culture Received Wound Ankle Pending 02/28/17 10:51 Fungal Smear Received Wound Ankle Pending 02/28/17 10:51 Fungal Culture Received Wound Ankle Pending GENERAL: Patient is in no acute distress. Lethargic. HEENT: EOMI, No icterus. NECK: Supple. No swelling or adenopathy. LUNGS: Clear breath sounds. CARDIAC: Regular rate and rhythm. No murmur. ABDOMEN: Soft, unable to appreciate tenderness. EXTREMITIES: R. ankle dressing and kennedy UE dressing at hands. SKIN: No rash. Assessment and Plan Sepsis secondary to MRSA bacteremia and right foot hardware infection. Possible Endocarditis. MRSA bacteremia likely secondary to right foot hardware infection. Bilateral hand cellulitis/septic arthritis of knuckles of index finger. MRSA. Acute metabolic encephalopathy: DT, infection. HTN Delirium Tremens. Alcoholism. Hepatitis C. Recs: Continue Vanco IV (target 15-20) Add Daptomycin. Add Rifampin. Check 2D ECHO (r/o endocarditis, MRSA bacteremia pt) Follow repeat cultures. Monitor temp. Chilo Lechuga MD Feb 28, 2017 15:59
[2017-03-01] VITALS (13 sets, daily range): BP systolic 142–168; BP diastolic 69–93; PULSE 98–117; RESP 18–26; TEMP 98.4–99.2; O2SAT 93–100
[2017-03-01] MEDS: RIFAMPIN INJ 300 MG in SODIUM CHLORIDE 0.9% INJ 100 ML IV SCH ×2 (02:47→13:59)
[2017-03-01] MEDS: SODIUM CHLOR 0.9% 1000 ML INJ 1,000 ML IV SCH ×4 (02:47→23:36)
[2017-03-01] MEDS: PANTOPRAZOLE SODIUM 40 MG VIAL IV PUSH SCH (02:47)
[2017-03-01] MEDS: FREE WATER G-TUBE SCH ×6 (04:00→20:00)
[2017-03-01] MEDS: DIAZEPAM 10 MG TAB PO SCH ×3 (05:39→21:04)
[2017-03-01] MEDS: HYDROmorphone HCL PF 1 MG/ML VIAL IV PUSH PRN ×4 (05:39→23:29)
[2017-03-01] MEDS: cloNIDine HCL 0.3 MG TAB PO SCH ×3 (05:39→21:04)
[2017-03-01] MEDS: THIAMINE HCL 100 MG TAB PO SCH (08:35)
[2017-03-01] MEDS: MULTIVITAMIN TAB PO SCH (08:35)
[2017-03-01] MEDS: ENOXAPARIN SODIUM 40 MG/0.4 ML SYRINGE SQ SCH (08:36)
[2017-03-01] MEDS: VANCOMYCIN INJ 1,250 MG in SODIUM CHLOR 0.9% 250 ML INJ 250 ML IV SCH ×2 (08:36→21:03)
[2017-03-01] MEDS: MUPIROCIN 2% OINT 1 APPLIC/GM SYR NASAL SCH ×2 (08:36→21:03)
--- NOTE | 2017-03-01 09:19 | ECHRPT ---
Indication: SEPSIS, R/O ENDOCARDITIS CONCLUSIONS The left ventricular systolic function is moderately reduced with an estimated ejection fraction in the range of 40-45% with global hypokinesis. Normal left ventricular size. Wall thickness is normal. The inferior vena cava is dilated. There is greater than 50% respiratory change in dimension of the inferior vena cava (normal). Though study is technically difficult, no definitive vegetation seen BP: 118 / 76 HR: 65 Rhythm: Sinus MEASUREMENTS (Male / Female) Normal Values Technical Quality:Technically difficult study 2D ECHO LV Diastolic Diameter PLAX 6.1 cm 4.2 - 5.9 / 3.9 - 5.3 cm LV Systolic Diameter PLAX 5.0 cm IVS Diastolic Thickness 0.9 cm 0.6 - 1.0 / 0.6 - 0.9 cm LVPW Diastolic Thickness 0.9 cm 0.6 - 1.0 / 0.6 - 0.9 cm LV Relative Wall Thickness 0.3 LVOT Diameter 2.6 cm Aortic Root Diameter 3.4 cm LA Systolic Diameter LX 3.3 cm 3.0 - 4.0 / 2.7 - 3.8 cm M-MODE AV Cusp Separation MM 1.9 cm DOPPLER AV Peak Velocity 179.0 cm/s AV Peak Gradient 12.8 mmHg AV Mean Gradient 6.0 mmHg AV Velocity Time Integral 29.4 cm LVOT Peak Velocity 105.0 cm/s LVOT Peak Gradient 4.4 mmHg LVOT Velocity Time Integral 20.3 cm LVOT Cardiac Index 3913.3 cm/minm AV Area Cont Eq vti 3.7 cm AV Area Cont Eq pk 3.1 cm Mitral E Point Velocity 79.0 cm/s Mitral A Point Velocity 105.0 cm/s Mitral E to A Ratio 0.8 TR Peak Velocity 257.0 cm/s TR Peak Gradient 26.4 mmHg FINDINGS LEFT VENTRICLE The left ventricular systolic function is moderately reduced with an estimated ejection fraction in the range of 40-45%. Normal left ventricular size. Wall thickness is normal. The septum has a paradoxical septal motion. RIGHT VENTRICLE Normal right ventricular size and systolic function. LEFT ATRIUM The left atrial size is normal. RIGHT ATRIUM The right atrial size is normal. ATRIAL SEPTUM Normal atrial septal thickness without atrial level shunting by limited color doppler interrogation. AORTA The aortic root and proximal ascending aorta are normal in size on limited imaging. MITRAL VALVE Mild thickening of the mitral valve leaflets. Trace mitral valve regurgitation. There is no significant vegetation flipping from the mitral valve AORTIC VALVE Aortic valve sclerosis is present. No aortic valve regurgitation. There is no significant vegetation flipping from the aortic valve. TRICUSPID VALVE Structurally normal tricuspid valve. There is trace tricuspid valve regurgitation. Normal estimated pulmonary pressures. No visible vegetation seen. PULMONARY VALVE The pulmonary valve is not well visualized. VESSELS The inferior vena cava is dilated. There is greater than 50% respiratory change in dimension of the inferior vena cava (normal). PERICARDIUM No pericardial effusion. Yasir Wills MD (Electronically Signed) Final Date:01 March 2017 09:18
--- NOTE | 2017-03-01 09:23 | MP ---
cc: ZBIGNIEW REYES DPM DATE OF SURGERY: 02/28/2017 DATE OF : 1955 SURGEON ZELDA Reyes PREOPERATIVE DIAGNOSIS Right ankle septic joint. POSTOPERATIVE DIAGNOSIS Right ankle septic joint. PROCEDURE 1. Right ankle wound debridement and washout. 2. Implantation of antibiotic vancomycin beads. ANESTHESIA General, Dr. Moore HEMOSTASIS Right thigh tourniquet at 300 mmHg for 38 minutes. ESTIMATED BLOOD LOSS Less than 5 cc. MATERIALS 1. 2-0 nylon. 2. Antibiotic beads impregnated with vancomycin one gram. INJECTABLES None. BRIEF HISTORY The patient is a 61-year-old male who presented to the ED with altered mental status presentation of septic presentation to the right ankle and bilateral hands. The patient continues to have elevated white blood cell count sepsis presentation and a MS. The patient was brought into the OR for repeat washout with continued presentation of septic joint. PROCEDURE IN DETAIL The patient was brought into the operating room for Dr. Bullock's hand procedure, and this was carried out prior to podiatric intervention. When I began my procedure the patient was already intubated by Anesthesia. An additional timeout was carried out prior to lower extremity procedure with correct identification carried out. Attention was then directed to the right leg where retention sutures were removed. The right leg was then prepped, scrubbed and draped in the usual sterile aseptic manner. A tourniquet was then applied where exsanguination was used above at the level of the calf and elevation to provided exsanguination. There continued to be a small purulent drainage to the posteromedial most incision. There were four incisions in nature, one posteromedial along the Achilles and medial to that incision #2 medial over the medial tibia incision, #3 anterior ankle joint and incision #4 on the lateral fibula. The incision along the medial most aspect of the leg along the posterior tibial channel was extended both proximal and medial to access this pocket of purulence. All necrotic nonviable tissues were manually debrided. Bleeders were Bovie'd as necessary. The incision was then copiously irrigated with three liters of normal sterile saline impregnated with . Culture was taken prior to pulse lavage. Cultures x2 were taken, one of the medial tibia and two of the medial ankle along the posterior channel. After pulse lavage antibiotic-impregnated beads, impregnated with one gram of vancomycin, were placed into the approximately 3 x 3 x 4 cm medial tibial defect. The periosteum was then re-approximated with 2-0 nylon. The incision was then closed in layers using only retention sutures and then packed with 1/4 inch Iodoform packing soaked with Betadine x4 pieces. The tourniquet was deflated. No active bleeders were noted prior to dressing. Dry sterile dressings were applied using Adaptic, 4x4s, ABD pads, Gillian and a light Levy wrap. The patient tolerated the procedure. He will be transferred to the PACU for a brief period of post-op monitoring after which he will be discharged to the floor. He will be followed appropriately while in house. Zbigniew Reyes DPM SR/NETO /6:53 PM /9:04 AM
[2017-03-01] MEDS: LORazepam 1 MG TAB PO PRN (11:50)
[2017-03-01] MEDS: DAPTOmycin INJ 450 MG in SODIUM CHLORIDE 0.9% INJ 100 ML IV SCH (11:50)
--- NOTE | 2017-03-01 11:52 | RADRPT ---
EXAM DATE/TIME: 03/01/2017 11:12 [facility] COMPARISON: No previous studies available for comparison. INDICATIONS : Ankle pain; evaluate for abscess. IV CONTRAST: 100 cc Omnipaque 350 (iohexol) IV RADIATION DOSE: 5.47 CTDIvol (mGy) MEDICAL HISTORY : Hypertension. SURGICAL HISTORY : None. ENCOUNTER: Subsequent ACUITY: 1 day PAIN SCALE: 5/10 LOCATION: Left ankle TECHNIQUE: Volumetric scanning of the ankle was performed. Using automated exposure control and adjustment of t he mA and/or kV according to patient size, radiation dose was kept as low as reasonably achievable to obtain optimal diagnostic quality images. DICOM format image data is available electronically for review and comparison. FINDINGS: BONES: No evidence of fracture. Alignment is within normal limits. Small tubular bone defects from prior fi xation device are noted. There are no destructive or erosive bony changes. There is no subperiosteal reaction. JOINTS: Ankle mortise is intact. No evidence of joint narrowing or effusion. SOFT TISSUES: Significant soft tissue swelling is identified surrounding the ankle and extending into the foot. The re is greater inflammation along the lateral aspect which extends to the forefoot. There are no organ ized fluid collection suspicious for an abscess. Muscles, tendons and neurovascular structures are gr ossly unremarkable. There is no evidence of mass or foreign body. CONCLUSION: 1. No evidence of organized fluid collections to suggest an abscess. 2. Extensive soft tissue swelling surrounding the ankle and extending to the forefoot especially eva g the lateral aspect. 3. No erosive or destructive bone changes. 4. Bone defects compatible with previous excision device. Blake Rider MD on March 01, 2017 at 11:40 Board Certified Radiologist. This report was verified electronically.
--- NOTE | 2017-03-01 16:02 | HHI.IDPN ---
Note Infectious Disease Note ID Coverage. Patient opens eyes to voice but no meaningful responses. Briefly arouses. No distress. Temp lower. Removal of hardware from r. ankle 02/27. Noted to have a pocket of pus adjacent to and in contact with the hardware. Could not remove all of the wires per podiatry. Embedded in deep tissue. Culture form both index fingers has MRSA. R ankle culture - and distal fibula 02/26, 02/28 MRSA. Blood culture 02/24, 02/25, 02/27 - MRSA. 2D ECHO - No vegetations noted. Review of Systems ROS Limitations: Altered Mental Status Allergies: Coded Allergies: Cipro (Verified Adverse Reaction, Intermediate, Dizziness, 02/24/17) *MDRO Multi-Drug Resistant Organism (Verified Adverse Reaction, Unknown, ) MRSA (blood)+(urine) 02/24/17 MRSA PCR screen positive 02/25/17 Past Medical History hypertension alcoholism Hepatitis C Past Surgical History right foot surgery with hardware in place. Reported Medications Reported Meds & Active Scripts Active Flexeril (Cyclobenzaprine HCl) 10 Mg Tab 10 Mg PO TID Lisinopril 10 Mg Tab 10 Mg PO DAILY Reported Naproxen Sodium 220 Mg Tab 220 Mg PO BID PRN OBJECTIVE: Vital Signs Date Time Temp Pulse Resp B/P Pulse Ox O2 Delivery O2 Flow Rate FiO2 03/01/17 14:00 117 03/01/17 12:00 109 03/01/17 12:00 99.2 109 25 158/93 98 03/01/17 10:00 103 03/01/17 09:07 99 Nasal Cannula 6.00 03/01/17 08:00 103 03/01/17 08:00 98.4 103 24 168/74 98 03/01/17 07:00 94 Nasal Cannula 3.00 03/01/17 06:00 102 03/01/17 04:00 98.9 98 18 158/82 100 03/01/17 02:00 100 03/01/17 00:00 99.0 100 20 142/69 96 03/01/17 00:00 100 02/28/17 22:00 110 02/28/17 20:55 97 2.00 02/28/17 20:00 98 Nasal Cannula 3.00 02/28/17 20:00 99.2 104 22 150/77 96 02/28/17 20:00 104 02/28/17 18:00 102 02/28/17 16:00 100 02/28/17 16:00 99.0 100 24 156/42 97 02/28/17 02/28/17 03/01/17 15:00 23:00 07:00 Intake Total 993 ml 1557 ml Output Total 810 ml 350 ml Balance 183 ml 1207 ml IV Total 493 ml 1059 ml Tube Feeding 198 ml Other 500 ml 300 ml Output Urine Total 800 ml 350 ml Estimated Blood Loss 10 ml # Bowel Movements 0 Laboratory Tests Test 02/28/17 05:41 White Blood Count 33.3 TH/MM3 Red Blood Count 3.50 MIL/MM3 Hemoglobin 10.1 GM/DL Hematocrit 30.5 % Mean Corpuscular Volume 87.0 FL Mean Corpuscular Hemoglobin 28.8 PG Mean Corpuscular Hemoglobin 33.1 % Concent Red Cell Distribution Width 15.0 % Platelet Count 176 TH/MM3 Mean Platelet Volume 9.8 FL Laboratory Tests Test 02/28/17 05:41 Sodium Level 148 MEQ/L Potassium Level 3.3 MEQ/L Chloride Level 118 MEQ/L Carbon Dioxide Level 23.9 MEQ/L Anion Gap 6 MEQ/L Blood Urea Nitrogen 25 MG/DL Creatinine 0.86 MG/DL Estimat Glomerular Filtration 90 ML/MIN Rate Random Glucose 132 MG/DL Calcium Level 7.5 MG/DL Microbiology Date/Time Procedure Status Source Growth 02/27/17 05:16 Aerobic Blood Culture - Final Resulted Blood Peripheral S. Aureus Mrsa 02/27/17 05:16 Anaerobic Blood Culture - Preliminary Resulted Blood Peripheral NO GROWTH IN 2 DAYS 02/27/17 05:22 Aerobic Blood Culture - Final Resulted Blood Peripheral S. Aureus Mrsa 02/27/17 05:22 Anaerobic Blood Culture - Preliminary Resulted Blood Peripheral NO GROWTH IN 2 DAYS 02/28/17 10:50 Gram Stain - Final Resulted Wound Leg 02/28/17 10:50 Wound Culture - Preliminary Resulted S. Aureus Mrsa 02/28/17 10:50 Acid Fast Stain Received Wound Leg Pending 02/28/17 10:50 Mycobacterial Culture Received Wound Leg Pending 02/28/17 10:50 Fungal Smear - Final Resulted Wound Leg NO FUNGAL ELEMENTS SEEN. 02/28/17 10:50 Fungal Culture Resulted Wound Leg Pending 02/28/17 10:51 Gram Stain - Final Resulted Wound Ankle 02/28/17 10:51 Wound Culture - Preliminary Resulted S. Aureus Mrsa 02/28/17 10:51 Acid Fast Stain Received Wound Ankle Pending 02/28/17 10:51 Mycobacterial Culture Received Wound Ankle Pending 02/28/17 10:51 Fungal Smear - Final Resulted Wound Ankle NO FUNGAL ELEMENTS SEEN. 02/28/17 10:51 Fungal Culture Resulted Wound Ankle Pending IMAGING: Lower Extremity CT 03/01/17 0000 Signed Impressions: Service Date/Time: Wednesday, March 01, 2017 11:12 - CONCLUSION: 1. No evidence of organized fluid collections to suggest an abscess. 2. Extensive soft tissue swelling surrounding the ankle and extending to the forefoot especially along the lateral aspect. 3. No erosive or destructive bone changes. 4. Bone defects compatible with previous excision device. Blake Rider MD GENERAL: No acute distress. Lethargic. HEENT: EOMI, No icterus. No conjunctival erythema. NECK: Supple. No swelling or adenopathy. LUNGS: Basilar rhonchi. CARDIAC: Irregular rate and rhythm. No murmur. ABDOMEN: Soft, unable to appreciate tenderness. EXTREMITIES: R. ankle dressing and kennedy UE dressing at hands. SKIN: No rash. Assessment and Plan Sepsis MRSA source - right foot hardware infection. MRSA bacteremia likely secondary to right foot hardware infection. Bilateral hand cellulitis/septic arthritis of knuckles of index finger. MRSA. Acute metabolic encephalopathy: DT, infection. Alcoholism. Hepatitis C. Leukocytosis. WBC still elevated. Recs: Continue Vanco IV (target 15-20) Continue Daptomycin. Continue Rifampin. Follow repeat blood cultures. Monitor temp. Monitor CBC. If bacteremia is not clearing will need BRUCE. Chilo Lechuga MD Mar 01, 2017 16:02
--- NOTE | 2017-03-01 17:45 | PD.POD ---
Subjective Podiatric Problems S/P Right ankle HW removal and repeat washout with Dr. Reyes, last sx on 02/28. Patient is challenging to understand. He does not appear to be in distress , but does have pain during the dressing change. Past Med/Surg/Social History Past Surgical History Gastrointestinal: DENIES HX OF: Colectomy, total Social History Smoking Status: Current Every Day Smoker Objective Vital Signs Vital Signs Date Time Temp Pulse Resp B/P Pulse Ox O2 Delivery O2 Flow Rate FiO2 03/01/17 16:00 98.7 115 26 153/75 100 03/01/17 16:00 117 03/01/17 14:00 117 03/01/17 12:00 109 03/01/17 12:00 99.2 109 25 158/93 98 03/01/17 10:00 103 03/01/17 09:07 99 Nasal Cannula 6.00 03/01/17 08:00 103 03/01/17 08:00 98.4 103 24 168/74 98 03/01/17 07:00 94 Nasal Cannula 3.00 03/01/17 06:00 102 03/01/17 04:00 98.9 98 18 158/82 100 03/01/17 02:00 100 03/01/17 00:00 99.0 100 20 142/69 96 03/01/17 00:00 100 02/28/17 22:00 110 02/28/17 20:55 97 2.00 02/28/17 20:00 98 Nasal Cannula 3.00 02/28/17 20:00 99.2 104 22 150/77 96 02/28/17 20:00 104 02/28/17 18:00 102 Coded Allergies: Cipro (Verified Adverse Reaction, Intermediate, Dizziness, 02/24/17) *MDRO Multi-Drug Resistant Organism (Verified Adverse Reaction, Unknown, ) MRSA (blood)+(urine) 02/24/17, (blood) 02/25/17, (finger,ankle,leg) 02/26/17 MRSA PCR screen positive 02/25/17 Exam-Podiatry Remarks Neuro/Vasc/Bio are unchanged Derm: Right ankle with 4 incisions, all are loosely approximated with sutures, thick sanginous and questionably purulent drainage from medial ankle incision, mild serous sanginous drainage from other incisions, moderate edema to ankle and forefoot, erythema to medial ankle, no malodor Assessment & Plan A/P 1) Right ankle infected hardware, septic joint -s/p hardware removal and washout x 2 with -will likely need repeat washout this week, will try to coordinate with hand surgery if they require a repeat wash out as well -cont iv abx -elevate legs -dressing change orders placed for nursing staff Amparo Gamez DPM Mar 01, 2017 17:45
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
[2017-03-02] VITALS (11 sets, daily range): BP systolic 133–167; BP diastolic 64–95; PULSE 100–118; RESP 18–24; TEMP 97.9–100.5; O2SAT 93–97
[2017-03-02] MEDS: PANTOPRAZOLE SODIUM 40 MG VIAL IV PUSH SCH ×2 (00:30→23:06)
[2017-03-02] MEDS: SODIUM CHLOR 0.9% 1000 ML INJ 1,000 ML IV SCH ×2 (01:41→09:33)
[2017-03-02] MEDS: RIFAMPIN INJ 300 MG in SODIUM CHLORIDE 0.9% INJ 100 ML IV SCH ×2 (03:51→14:41)
[2017-03-02] MEDS: FREE WATER G-TUBE SCH ×6 (04:00→20:00)
[2017-03-02] MEDS: CHLORHEXIDINE GLUCONATE 2 % 1 PACK (2 CLOTHS)(taper/protocol) TOPICAL SCH (04:00)
[2017-03-02] MEDS: DIAZEPAM 10 MG TAB PO SCH ×3 (04:55→23:06)
[2017-03-02] MEDS: cloNIDine HCL 0.3 MG TAB PO SCH ×3 (04:55→23:06)
[2017-03-02] MEDS: HYDROmorphone HCL PF 1 MG/ML VIAL IV PUSH PRN ×5 (08:13→23:41)
[2017-03-02] MEDS: LORazepam 1 MG TAB PO PRN ×2 (08:15→12:17)
[2017-03-02] MEDS: THIAMINE HCL 100 MG TAB PO SCH (08:15)
[2017-03-02] MEDS: MUPIROCIN 2% OINT 1 APPLIC/GM SYR NASAL SCH ×2 (08:15→23:05)
[2017-03-02] MEDS: MULTIVITAMIN TAB PO SCH (09:00)
[2017-03-02] MEDS: VANCOMYCIN INJ 1,250 MG in SODIUM CHLOR 0.9% 250 ML INJ 250 ML IV SCH (09:33)
[2017-03-02] MEDS: ENOXAPARIN SODIUM 40 MG/0.4 ML SYRINGE SQ SCH (09:34)
[2017-03-02 09:43] LABS: AUTOMATED NEUTROPHIL # 25.4 TH/MM3 (1.8-7.7); BASOPHIL % 0.1 % (0.0-2.0); EOSINOPHIL # 0.1 TH/MM3 (0-0.4); EOSINOPHIL % 0.2 % (0.0-4.0); HEMATOCRIT 28.7 % (39.0-51.0); HEMO FLAGS DIFF FINAL; LYMPH % 3.9 % (9.0-44.0); LYMPHOCYTE # 1.1 TH/MM3 (1.0-4.8); MEAN CELL VOLUME 87.9 FL (80.0-100.0); MEAN CORPUSCULAR HEMOGLOBIN 28.4 PG (27.0-34.0); MEAN CORPUSCULAR HGB CONC 32.3 % (32.0-36.0); NEUT % 91.8 % (16.0-70.0); PLATELET COUNT 223 TH/MM3 (150-450); RED BLOOD COUNT 3.26 MIL/MM3 (4.50-5.90); RED CELL DISTRIBUTION WIDTH 15.7 % (11.6-17.2); WHITE BLOOD COUNT 27.7 TH/MM3 (4.0-11.0)
[2017-03-02 10:38] LABS: BICARBONATE 22.1 MEQ/L (21.0-32.0); POTASSIUM 3.6 MEQ/L (3.5-5.1)
[2017-03-02] MEDS: ACETAMINOPHEN 325 MG TAB PO PRN ×2 (12:17→17:49)
[2017-03-02] MEDS: DAPTOmycin INJ 450 MG in SODIUM CHLORIDE 0.9% INJ 100 ML IV SCH (12:27)
[2017-03-02] MEDS ORDERED: SODIUM CHLOR 0.9% 1000 ML INJ 1,000 ML IV ONE (13:15)
[2017-03-02] MEDS ORDERED: SODIUM CHLOR 0.45% 1000 ML INJ 1,000 ML IV SCH (13:15)
--- NOTE | 2017-03-02 13:47 | RADRPT ---
EXAM DATE/TIME: 03/02/2017 13:26 [place] COMPARISON: CHEST SINGLE AP, February 25, 2017, 22:45. INDICATIONS : Fever and shortness of breath. MEDICAL HISTORY : Hypertension. Hepatitis. SURGICAL HISTORY : None. ENCOUNTER: Subsequent ACUITY: 4 - 6 days PAIN SCORE: Non-responsive. LOCATION: Bilateral chest FINDINGS: There is now an NG tube in stomach. There has been interval development of a small left-sided pleural effusion. The right lung is grossly clear. There is some pulmonary venous congestion. The heart size is stable. No evidence of pneumothorax. The bony structures are stable. CONCLUSION: Interval develop of a small left-sided pleural effusion. Pulmonary venous congestion. Edenilson Oviedo MD on March 02, 2017 at 13:44 Board Certified Radiologist. This report was verified electronically.
[2017-03-02 14:13] LABS: BACTERIA, URINE MOD /hpf; BLOOD, URINE SMALL (NEG); COMMENT (UR) CATH-CULTURE IND; CULTURE IF INDICATED CATH CULTURE IND; GLUCOSE,URINE NEG (NEG); GRANULAR CAST, URINE 4 /lpf; KETONE, URINE NEG (NEG); MUCUS URINE FEW /lpf (OCC); NITRITE,URINE NEG (NEG); SQUAMOUS EPITHELIAL CELL URINE 1 /hpf (0-5); TRANSITIONAL EPI CELLS, URINE <1 /hpf; URINE COLOR YELLOW (YELLW/STRAW)
--- NOTE | 2017-03-02 16:36 | HHI.IDPN ---
Note Infectious Disease Note ID Coverage. Patient opens eyes to voice but no meaningful responses. Just repeatedly says the word "Ah" Briefly arouses. No distress. Low grade temp. Removal of hardware from r. ankle 02/27. Noted to have a pocket of pus adjacent to and in contact with the hardware. Could not remove all of the wires per podiatry. Embedded in deep tissue. Culture form both index fingers has MRSA. R ankle culture - and distal fibula 02/26, 02/28 MRSA. Blood culture 02/24, 02/25, 02/27 - MRSA. 2D ECHO - No vegetations noted. Review of Systems ROS Limitations: Altered Mental Status Allergies: Coded Allergies: Cipro (Verified Adverse Reaction, Intermediate, Dizziness, 02/24/17) *MDRO Multi-Drug Resistant Organism (Verified Adverse Reaction, Unknown, ) MRSA (blood)+(urine) 02/24/17 MRSA PCR screen positive 02/25/17 Past Medical History hypertension alcoholism Hepatitis C Past Surgical History right foot surgery with hardware in place. Reported Medications Reported Meds & Active Scripts Active Flexeril (Cyclobenzaprine HCl) 10 Mg Tab 10 Mg PO TID Lisinopril 10 Mg Tab 10 Mg PO DAILY Reported Naproxen Sodium 220 Mg Tab 220 Mg PO BID PRN OBJECTIVE: Vital Signs Date Time Temp Pulse Resp B/P Pulse Ox O2 Delivery O2 Flow Rate FiO2 03/02/17 15:22 118 03/02/17 15:22 95 Room Air 03/02/17 14:10 98.1 03/02/17 12:00 100.5 105 20 167/95 95 03/02/17 09:51 96 21 03/02/17 08:00 98.9 117 20 167/86 96 03/02/17 08:00 118 03/02/17 06:09 99.7 100 18 159/79 97 03/02/17 01:15 97.9 103 18 150/84 95 03/02/17 00:00 110 03/02/17 00:00 98.9 104 21 133/64 95 03/01/17 21:17 93 21 03/01/17 20:00 98.9 112 22 145/79 93 03/01/17 20:00 95 Room Air 03/01/17 20:00 114 03/01/17 18:00 117 03/01/17 03/01/1717 15:00 23:00 07:00 Intake Total 2096 ml 1564 ml Output Total 600 ml 725 ml Balance 1496 ml 839 ml IV Total 1123 ml 861 ml Tube Feeding 373 ml 403 ml Other 600 ml 300 ml Output Urine Total 600 ml 725 ml Laboratory Tests Test 03/02/17 09:15 White Blood Count 27.7 TH/MM3 Red Blood Count 3.26 MIL/MM3 Hemoglobin 9.3 GM/DL Hematocrit 28.7 % Mean Corpuscular Volume 87.9 FL Mean Corpuscular Hemoglobin 28.4 PG Mean Corpuscular Hemoglobin 32.3 % Concent Red Cell Distribution Width 15.7 % Platelet Count 223 TH/MM3 Mean Platelet Volume 9.5 FL Neutrophils (%) (Auto) 91.8 % Lymphocytes (%) (Auto) 3.9 % Monocytes (%) (Auto) 4.0 % Eosinophils (%) (Auto) 0.2 % Basophils (%) (Auto) 0.1 % Neutrophils # (Auto) 25.4 TH/MM3 Lymphocytes # (Auto) 1.1 TH/MM3 Monocytes # (Auto) 1.1 TH/MM3 Eosinophils # (Auto) 0.1 TH/MM3 Basophils # (Auto) 0.0 TH/MM3 CBC Comment DIFF FINAL Differential Comment Laboratory Tests Test 03/02/17 09:15 Sodium Level 147 MEQ/L Potassium Level 3.6 MEQ/L Chloride Level 119 MEQ/L Carbon Dioxide Level 22.1 MEQ/L Anion Gap 6 MEQ/L Blood Urea Nitrogen 41 MG/DL Creatinine 1.87 MG/DL Estimat Glomerular Filtration 37 ML/MIN Rate Random Glucose 130 MG/DL Calcium Level 7.6 MG/DL B-Type Natriuretic Peptide 647 PG/ML Microbiology Date/Time Procedure Status Source Growth 02/28/17 10:50 Gram Stain - Final Complete Wound Leg 02/28/17 10:50 Wound Culture - Final Complete S. Aureus Mrsa 02/28/17 10:50 Acid Fast Stain - Final Resulted Wound Leg NO ACID FAST BACILLI SEEN 02/28/17 10:50 Mycobacterial Culture Resulted Wound Leg Pending 02/28/17 10:50 Fungal Smear - Final Resulted Wound Leg NO FUNGAL ELEMENTS SEEN. 02/28/17 10:50 Fungal Culture Resulted Wound Leg Pending 02/28/17 10:51 Gram Stain - Final Complete Wound Ankle 02/28/17 10:51 Wound Culture - Final Complete S. Aureus Mrsa 02/28/17 10:51 Acid Fast Stain - Final Resulted Wound Ankle NO ACID FAST BACILLI SEEN 02/28/17 10:51 Mycobacterial Culture Resulted Wound Ankle Pending 02/28/17 10:51 Fungal Smear - Final Resulted Wound Ankle NO FUNGAL ELEMENTS SEEN. 02/28/17 10:51 Fungal Culture Resulted Wound Ankle Pending 03/02/17 09:15 Aerobic Blood Culture Received Blood Peripheral Pending 03/02/17 09:15 Anaerobic Blood Culture Received Blood Peripheral Pending 03/02/17 09:24 Aerobic Blood Culture Received Blood Peripheral Pending 03/02/17 09:24 Anaerobic Blood Culture Received Blood Peripheral Pending 03/02/17 13:30 Urine Culture Received Urine Catheterized Urine Pending IMAGING: Chest X-Ray 03/02/17 0000 Signed Impressions: Service Date/Time: Thursday, March 02, 2017 13:26 - CONCLUSION: Interval develop of a small left-sided pleural effusion. Pulmonary venous congestion. Edenilson Oviedo MD Lower Extremity CT 03/01/17 0000 Signed Impressions: Service Date/Time: Wednesday, March 01, 2017 11:12 - CONCLUSION: 1. No evidence of organized fluid collections to suggest an abscess. 2. Extensive soft tissue swelling surrounding the ankle and extending to the forefoot especially along the lateral aspect. 3. No erosive or destructive bone changes. 4. Bone defects compatible with previous excision device. Blake Rider MD Lower Extremity CT 03/01/17 0000 Signed Impressions: Service Date/Time: Wednesday, March 01, 2017 11:12 - CONCLUSION: 1. No evidence of organized fluid collections to suggest an abscess. 2. Extensive soft tissue swelling surrounding the ankle and extending to the forefoot especially along the lateral aspect. 3. No erosive or destructive bone changes. 4. Bone defects compatible with previous excision device. Blake Rider MD GENERAL: No acute distress. Lethargic. HEENT: EOMI, No icterus. No conjunctival erythema. NECK: Supple. No swelling or adenopathy. LUNGS: Basilar rhonchi. CARDIAC: Irregular rate and rhythm. No murmurs. ABDOMEN: Soft, unable to appreciate tenderness. No reaction to palpation. EXTREMITIES: R. ankle dressing and kennedy UE dressing at hands. SKIN: No rash. Assessment and Plan Sepsis MRSA source - right foot hardware infection. MRSA bacteremia likely secondary to right foot hardware infection. Bilateral hand cellulitis/septic arthritis of knuckles of index finger. MRSA. Acute metabolic encephalopathy: DT, infection. Alcoholism. Hepatitis C. Leukocytosis. WBC still elevated. Acute renal disease. Recs: Stop Vanco IV (target 15-20) Continue Daptomycin. Continue Rifampin PO. Follow repeat blood cultures. Monitor temp. Monitor CBC. If blood culture still positive will order BRUCE. Chilo Lechuga MD Mar 02, 2017 16:35
--- NOTE | 2017-03-02 17:36 | HHI.PR ---
Subjective Remarks follow up bilateral hand I and D Objective Vital Signs Date Time Temp Pulse Resp B/P Pulse Ox O2 Delivery O2 Flow Rate FiO2 03/02/17 15:22 118 03/02/17 15:22 95 Room Air 03/02/17 14:10 98.1 03/02/17 12:00 100.5 105 20 167/95 95 03/02/17 09:51 96 21 03/02/17 08:00 98.9 117 20 167/86 96 03/02/17 08:00 118 03/02/17 06:09 99.7 100 18 159/79 97 03/02/17 01:15 97.9 103 18 150/84 95 03/02/17 00:00 110 03/02/17 00:00 98.9 104 21 133/64 95 03/01/17 21:17 93 21 03/01/17 20:00 98.9 112 22 145/79 93 03/01/17 20:00 95 Room Air 03/01/17 20:00 114 03/01/17 18:00 117 I/O 03/01/17 03/01/17 03/01/17 03/02/17 03/02/17 03/02/17 07:00 15:00 23:00 07:00 15:00 23:00 Intake Total 2096 ml 1564 ml Output Total 600 ml 725 ml Balance 1496 ml 839 ml IV Total 1123 ml 861 ml Tube Feeding 373 ml 403 ml Other 600 ml 300 ml Output Urine Total 600 ml 725 ml patient opens his eyes for oral commands bilateral hand dressings changed; purulence noted, swelling noted over the dorsal aspect the hand and wrist cultures: MRSA Result Diagram: 03/02/1715 03/02/17 0915 Assessment and Plan Assessment and Plan 61 year old male s/p incision and drainage, arthrotomy bilateral index finger MP joints plan daily dressing and packing changes continue antibiotics based on ID recommendations plan for repeat wash on thrusday, will coordinate with podiatry. Roque Bullock MD Mar 02, 2017 17:35
[2017-03-02] MEDS: LORazepam 2 MG/ML VIAL IV PUSH PRN (17:49)
[2017-03-02] MEDS: RIFAMPIN 150 MG CAP PO SCH (23:06)
--- NOTE | 2017-03-02 23:13 | HHI.PR ---
Subjective Remarks Patient seen this morning around 11 AM. Does not appear to be in pain. Fever 100.5 today. Labs and imaging ordered. Fluid overload. BNP elevated. Discontinue fluids for now. Hypernatremia. Mild. Follow-up tomorrow. Objective Vital Signs Date Time Temp Pulse Resp B/P Pulse Ox O2 Delivery O2 Flow Rate FiO2 03/02/17 20:00 98.1 106 24 163/85 95 03/02/17 16:00 99.9 113 20 157/94 93 03/02/17 15:22 118 03/02/17 15:22 95 Room Air 03/02/17 14:10 98.1 03/02/17 12:00 100.5 105 20 167/95 95 03/02/17 09:51 96 21 03/02/17 08:00 98.9 117 20 167/86 96 03/02/17 08:00 118 03/02/17 06:09 99.7 100 18 159/79 97 03/02/17 01:15 97.9 103 18 150/84 95 03/02/17 00:00 110 03/02/17 00:00 98.9 104 21 133/64 95 I/O 03/01/17 03/01/17 03/01/17 03/02/17 03/02/17 03/02/17 07:00 15:00 23:00 07:00 15:00 23:00 Intake Total 2096 ml 1564 ml 0 ml 906 ml Output Total 600 ml 725 ml 1375 ml 600 ml Balance 1496 ml 839 ml -1375 ml 306 ml Intake Oral 0 ml IV Total 1123 ml 861 ml 906 ml Tube Feeding 373 ml 403 ml Other 600 ml 300 ml Output Urine Total 600 ml 725 ml 1375 ml 600 ml # Bowel Movements 0 Result Diagram: 03/02/1715 03/02/1715 Objective Remarks GENERAL: General lying in bed. Appears comfortable. Responds to verbal stimuli. SKIN: Warm and dry. HEAD: Normocephalic. EYES: No scleral icterus. No injection or drainage. NECK: Supple, trachea midline. No JVD. CARDIOVASCULAR: Regular rate and rhythm without murmurs, gallops, or rubs. RESPIRATORY: Breath sounds equal bilaterally. No accessory muscle use. GASTROINTESTINAL: Abdomen soft, non-tender, nondistended. MUSCULOSKELETAL: No cyanosis, or edema. BACK: Nontender without obvious deformity. No CVA tenderness. A/P Assessment and Plan =======03/02/17 Fever 100.5 today. Continue antibiotics as per infectious disease. Cultures ordered. Lactate 1.7. Labs and imaging ordered. Chest x-ray with pulmonary venous congestion. Fluid overload. BNP elevated. Discontinue fluids for now. Hypernatremia. Mild. Follow-up tomorrow. Assessment: 61yM with MRSA bacteremia and septic joints, course complicated by severe agitated delirium and etoh withdraw, improving. off precedex. continues to be bacteremic: either persistent infection of the leg without source control vs. ?endocarditis? ID involved. stable to transfer out of ICU. NEURO: //Alcohol dependence //Alcohol withdrawal //Acute encephalopathy //Toxic metabolic encephalopathy secondary to sepsis //Pain associated with septic joints Ativan prn per [facility] Ammonia level 17 on 02/24 CT brain8/2negative B-12 is not low thiamine valium 10 po q8h with taper clonidine 0.3 mg po tid. prn oxycodone 5mg po q4h prn hydromorphone 0.5mg iv q3h prn for breakthrough pain. RESP: //Hypoxemia- improving. 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 Labetalol when necessary systolic blood pressure greater than 165 Monitor hemodynamics Hold home lisinopril for now as at risk for THADDEUS given IV contrast 02/24, sepsis, aminoglycoside. -2-D echo with ejection fraction 40% global hypokinesis. GI: //Hep C antibody positive speech consult- cleared for thickened liquids. continue TF FEN/RENAL: //Hypermagnesemia //Hypernatremia- Free water Deficit Continue Briseno. Monitor intake and output closely given sepsis. Monitor electrolytes. Replace electrolytes as indicated. -hold fluids for now setting of fluid overload //Acute kidney injury -03/02. Creatinine 1.87 from 0.86 -likely secondary to ongoing sepsis versus fluid overload/cardiorenal syndrome. -Continue to monitor ID: //Sepsis //MRSA bacteremia //Septic R ankle //Bilateral hand cellulitis with probable septic 2nd MCP joint bilaterally. //UTI //Leukocytosis with bandemia s/p debridement/hardware removal dale and bilateral upper extremities 8 On vancomycin 02/24 #6 for MRSA bacteremia and septic arthritis. Rifampin added yesterday. ID following Dr Jailene Keene. Microbiology: lood cultures 4 out of 4 positive for MRSA 02/24urine cultureMRSA 02/25+ MRSA. 02/28 +MRSA 03/02 NGTD HEME: //Anemia Monitor CBC ENDO: Euglycemic PROPH: Lovenox 40 mg subcutaneous daily for DVT prophylaxis. Protonix 40 mg IV daily for stress ulcer prophylaxis Discharge Planning Continues with sepsis. Brett Oleary MD Mar 02, 2017 23:13
[2017-03-03] VITALS (8 sets, daily range): BP systolic 133–168; BP diastolic 71–97; PULSE 101–123; RESP 18–30; TEMP 97.6–101.4; O2SAT 92–100
[2017-03-03] MEDS: CHLORHEXIDINE GLUCONATE 2 % 1 PACK (2 CLOTHS)(taper/protocol) TOPICAL SCH (04:00)
[2017-03-03] MEDS: ACETAMINOPHEN 325 MG TAB PO PRN (04:06)
[2017-03-03] MEDS: HYDROmorphone HCL PF 1 MG/ML VIAL IV PUSH PRN ×4 (04:06→22:04)
[2017-03-03] MEDS: cloNIDine HCL 0.3 MG TAB PO SCH ×3 (06:16→22:00)
[2017-03-03 06:54] LABS: HEMATOCRIT 24.4 % (39.0-51.0); MEAN CELL VOLUME 86.2 FL (80.0-100.0); MEAN CORPUSCULAR HEMOGLOBIN 29.1 PG (27.0-34.0); MEAN CORPUSCULAR HGB CONC 33.8 % (32.0-36.0); PLATELET COUNT 209 TH/MM3 (150-450); RED BLOOD COUNT 2.83 MIL/MM3 (4.50-5.90); RED CELL DISTRIBUTION WIDTH 15.2 % (11.6-17.2); REVIEW FLAG FINAL; WHITE BLOOD COUNT 23.1 TH/MM3 (4.0-11.0)
[2017-03-03 07:27] LABS: BICARBONATE 22.8 MEQ/L (21.0-32.0); POTASSIUM 3.6 MEQ/L (3.5-5.1)
[2017-03-03 07:28] LABS: INDIRECT BILIRUBIN 0.3 MG/DL (0.0-0.8); TOTAL BILIRUBIN ADULT 0.6 MG/DL (0.2-1.0)
[2017-03-03] MEDS ORDERED: FUROSEMIDE 20 MG/2 ML VIAL IV PUSH ONE (09:30)
--- NOTE | 2017-03-03 09:41 | HHI.PR ---
Subjective Remarks date of service 03/03/17 Patient seen 03/03 around 10 AM. Appears comfortable. More alert than yesterday. Objective Vital Signs Date Time Temp Pulse Resp B/P Pulse Ox O2 Delivery O2 Flow Rate FiO2 03/03/17 08:00 98.9 106 18 145/72 100 03/03/17 05:29 99.6 03/03/17 04:00 101.4 114 30 134/71 92 03/03/17 00:00 100.2 101 26 133/71 96 03/03/17 00:00 Room Air 03/02/17 20:17 106 03/02/17 20:00 Room Air 03/02/17 20:00 98.1 106 24 163/85 95 03/02/17 16:00 99.9 113 20 157/94 93 03/02/17 15:22 118 03/02/17 15:22 95 Room Air 03/02/17 14:10 98.1 03/02/17 12:00 100.5 105 20 167/95 95 03/02/17 09:51 96 21 I/O 03/02/17 03/02/17 03/02/17 03/03/17 03/03/17 03/03/17 06:59 14:59 22:59 06:59 14:59 22:59 Intake Total 0 ml 1633 ml Output Total 1375 ml 600 ml 1550 ml Balance -1375 ml 1033 ml -1550 ml Intake Oral 0 ml IV Total 906 ml Tube Feeding 377 ml Tube Irrigant 50 ml Other 300 ml Output Urine Total 1375 ml 600 ml 1550 ml # Bowel Movements 0 Result Diagram: 03/03/17 0536 03/03/17 0530 Objective Remarks GENERAL: General lying in bed. Appears comfortable. Responds to verbal stimuli.slightly more alert today. SKIN: Warm and dry. HEAD: Normocephalic. EYES: No scleral icterus. No injection or drainage. NECK: Supple, trachea midline. No JVD. CARDIOVASCULAR: Regular rate and rhythm without murmurs, gallops, or rubs. RESPIRATORY: Breath sounds equal bilaterally. No accessory muscle use. GASTROINTESTINAL: Abdomen soft, non-tender, nondistended. MUSCULOSKELETAL: No cyanosis, or edema. BACK: Nontender without obvious deformity. No CVA tenderness. A/P Assessment and Plan =======03/03/17 //Sepsis. MRSA bacteremia. Fever overnight 101.4. Continues to sepsis. Continue antibiotics as per infectious disease. Urinalysis and blood cultures pending, repeat from 03/02 negative today.. //Congestive heart failure. Ejection fraction 40%. Consult cardiology. IV fluids discontinued, Lasix given. Strict intake and output. //Acute kidney injury. Likely cardiorenal syndrome. BNP 647. Strict monitoring of intake and output. //Hypernatremia. We'll start on one quarter normal saline, together with Lasix. Strict intake and output. Assessment: 61yM with MRSA bacteremia and septic joints, course complicated by severe agitated delirium and etoh withdraw, improving. off precedex. continues to be bacteremic: either persistent infection of the leg without source control vs. ?endocarditis? ID involved. stable to transfer out of ICU. NEURO: //Alcohol dependence //Alcohol withdrawal //Acute encephalopathy //Toxic metabolic encephalopathy secondary to sepsis //Pain associated with septic joints Ativan prn per CIWA Ammonia level 17 on 02/24 CT brain8/2negative B-12 is not low thiamine valium 10 po q8h with taper clonidine 0.3 mg po tid. prn oxycodone 5mg po q4h prn hydromorphone 0.5mg iv q3h prn for breakthrough pain. RESP: //Hypoxemia- improving. 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 Labetalol when necessary systolic blood pressure greater than 165 Monitor hemodynamics Hold home lisinopril for now as at risk for THADDEUS given IV contrast 02/24, sepsis, aminoglycoside. -2-D echo with ejection fraction 40% global hypokinesis. GI: //Hep C antibody positive speech consult- cleared for thickened liquids. continue TF FEN/RENAL: //Hypermagnesemia //Hypernatremia- Free water Deficit Continue Briseno. Monitor intake and output closely given sepsis. Monitor electrolytes. Replace electrolytes as indicated. -hold fluids for now setting of fluid overload //Acute kidney injury -03/02. Creatinine 1.87 from 0.86 -likely secondary to ongoing sepsis versus fluid overload/cardiorenal syndrome. -Continue to monitor ID: //Sepsis //MRSA bacteremia //Septic R ankle //Bilateral hand cellulitis with probable septic 2nd MCP joint bilaterally. //UTI //Leukocytosis with bandemia s/p debridement/hardware removal dale and bilateral upper extremities 8 On vancomycin 02/24 #6 for MRSA bacteremia and septic arthritis. Rifampin added yesterday. ID following Dr Jailene Keene. Microbiology: lood cultures 4 out of 4 positive for MRSA 02/24urine cultureMRSA 02/25+ MRSA. 02/28 +MRSA 03/02 NGTD HEME: //Anemia Monitor CBC ENDO: Euglycemic PROPH: Lovenox 40 mg subcutaneous daily for DVT prophylaxis. Protonix 40 mg IV daily for stress ulcer prophylaxis Discharge Planning Continues with sepsis. Brett Oleary MD Mar 03, 2017 09:41 PROPH: Lovenox 40 mg subcutaneous daily for DVT prophylaxis. Protonix 40 mg IV daily for stress ulcer prophylaxis Discharge Planning Continues with sepsis. Brett Olaery MD Mar 03, 2017 09:41
[2017-03-03] MEDS: THIAMINE HCL 100 MG TAB PO SCH (10:08)
[2017-03-03] MEDS: MULTIVITAMIN TAB PO SCH (10:08)
[2017-03-03] MEDS: MUPIROCIN 2% OINT 1 APPLIC/GM SYR NASAL SCH ×2 (10:09→22:01)
[2017-03-03] MEDS: ENOXAPARIN SODIUM 40 MG/0.4 ML SYRINGE SQ SCH (10:09)
[2017-03-03] MEDS: RIFAMPIN 150 MG CAP PO SCH ×2 (10:09→22:00)
[2017-03-03] MEDS: DIAZEPAM 10 MG TAB PO SCH ×2 (10:19→22:01)
[2017-03-03] MEDS: POTASSIUM CHLORIDE INJ 20 MEQ, SODIUM CHLORIDE 23.4% INJ 38.5 MEQ in WATER STERILE FOR ... IV SCH (11:03)
[2017-03-03] MEDS: DAPTOmycin INJ 450 MG in SODIUM CHLORIDE 0.9% INJ 100 ML IV SCH (13:03)
--- NOTE | 2017-03-03 14:31 | HHI.IDPN ---
Note Infectious Disease Note ID Coverage. Patient is a little more easily aroused. Patient opens eyes to voice. No distress. Temp of 101.4. Removal of hardware from r. ankle 02/27. Noted to have a pocket of pus adjacent to and in contact with the hardware. Could not remove all of the wires per podiatry. Embedded in deep tissue. Culture form both index fingers has MRSA. R ankle culture - and distal fibula 02/26, 02/28 MRSA. Blood culture 02/24, 02/25, 02/27 - MRSA. 2D ECHO - No vegetations noted. Review of Systems ROS Limitations: Altered Mental Status Allergies: Coded Allergies: Cipro (Verified Adverse Reaction, Intermediate, Dizziness, 02/24/17) *MDRO Multi-Drug Resistant Organism (Verified Adverse Reaction, Unknown, ) MRSA (blood)+(urine) 02/24/17 MRSA PCR screen positive 02/25/17 Past Medical History hypertension alcoholism Hepatitis C Past Surgical History right foot surgery with hardware in place. Reported Medications Reported Meds & Active Scripts Active Flexeril (Cyclobenzaprine HCl) 10 Mg Tab 10 Mg PO TID Lisinopril 10 Mg Tab 10 Mg PO DAILY Reported Naproxen Sodium 220 Mg Tab 220 Mg PO BID PRN OBJECTIVE: Vital Signs Date Time Temp Pulse Resp B/P Pulse Ox O2 Delivery O2 Flow Rate FiO2 03/03/17 13:39 100 21 03/03/17 12:00 97.6 123 24 168/90 100 03/03/17 10:38 18 03/03/17 08:00 98.9 106 18 145/72 100 03/03/17 05:29 99.6 03/03/17 04:00 101.4 114 30 134/71 92 03/03/17 00:00 100.2 101 26 133/71 96 03/03/17 00:00 Room Air 03/02/17 20:17 106 03/02/17 20:00 Room Air 03/02/17 20:00 98.1 106 24 163/85 95 03/02/17 16:00 99.9 113 20 157/94 93 03/02/17 15:22 118 03/02/17 15:22 95 Room Air 03/02/17 03/02/17 03/03/17 15:00 23:00 07:00 Intake Total 0 ml 1633 ml Output Total 1375 ml 600 ml 1550 ml Balance -1375 ml 1033 ml -1550 ml Intake Oral 0 ml IV Total 906 ml Tube Feeding 377 ml Tube Irrigant 50 ml Other 300 ml Output Urine Total 1375 ml 600 ml 1550 ml # Bowel Movements 0 Laboratory Tests Test 03/02/17 03/03/17 09:15 05:36 White Blood Count 27.7 TH/MM3 23.1 TH/MM3 Red Blood Count 3.26 MIL/MM3 2.83 MIL/MM3 Hemoglobin 9.3 GM/DL 8.3 GM/DL Hematocrit 28.7 % 24.4 % Mean Corpuscular Volume 87.9 FL 86.2 FL Mean Corpuscular Hemoglobin 28.4 PG 29.1 PG Mean Corpuscular Hemoglobin 32.3 % 33.8 % Concent Red Cell Distribution Width 15.7 % 15.2 % Platelet Count 223 TH/MM3 209 TH/MM3 Mean Platelet Volume 9.5 FL 10.1 FL Neutrophils (%) (Auto) 91.8 % Lymphocytes (%) (Auto) 3.9 % Monocytes (%) (Auto) 4.0 % Eosinophils (%) (Auto) 0.2 % Basophils (%) (Auto) 0.1 % Neutrophils # (Auto) 25.4 TH/MM3 Lymphocytes # (Auto) 1.1 TH/MM3 Monocytes # (Auto) 1.1 TH/MM3 Eosinophils # (Auto) 0.1 TH/MM3 Basophils # (Auto) 0.0 TH/MM3 CBC Comment DIFF FINAL Differential Comment Laboratory Tests Test 03/02/17 03/02/17 03/03/17 09:15 23:20 05:30 Sodium Level 147 MEQ/L 148 MEQ/L Potassium Level 3.6 MEQ/L 3.6 MEQ/L Chloride Level 119 MEQ/L 118 MEQ/L Carbon Dioxide Level 22.1 MEQ/L 22.8 MEQ/L Anion Gap 6 MEQ/L 7 MEQ/L Blood Urea Nitrogen 41 MG/DL 44 MG/DL Creatinine 1.87 MG/DL 2.03 MG/DL Estimat Glomerular Filtration 37 ML/MIN 33 ML/MIN Rate Random Glucose 130 MG/DL 123 MG/DL Calcium Level 7.6 MG/DL 7.9 MG/DL B-Type Natriuretic Peptide 647 PG/ML Lactic Acid Level 1.7 mmol/L Total Bilirubin 0.6 MG/DL Direct Bilirubin 0.3 MG/DL Indirect Bilirubin 0.3 MG/DL Aspartate Amino Transf 33 U/L (AST/SGOT) Alanine Aminotransferase 21 U/L (ALT/SGPT) Alkaline Phosphatase 159 U/L Total Protein 5.6 GM/DL Albumin 1.0 GM/DL Microbiology Date/Time Procedure Status Source Growth 03/02/17 09:15 Aerobic Blood Culture - Preliminary Resulted Blood Peripheral NO GROWTH IN 1 DAY 03/02/17 09:15 Anaerobic Blood Culture - Preliminary Resulted Blood Peripheral NO GROWTH IN 1 DAY 03/02/17 09:24 Aerobic Blood Culture - Preliminary Resulted Blood Peripheral NO GROWTH IN 1 DAY 03/02/17 09:24 Anaerobic Blood Culture - Preliminary Resulted Blood Peripheral NO GROWTH IN 1 DAY 03/02/17 13:30 Urine Culture Received Urine Catheterized Urine Pending IMAGING: Chest X-Ray 03/02/17 0000 Signed Impressions: Service Date/Time: Thursday, March 02, 2017 13:26 - CONCLUSION: Interval develop of a small left-sided pleural effusion. Pulmonary venous congestion. Edenilson Oviedo MD Lower Extremity CT 03/01/17 0000 Signed Impressions: Service Date/Time: Wednesday, March 01, 2017 11:12 - CONCLUSION: 1. No evidence of organized fluid collections to suggest an abscess. 2. Extensive soft tissue swelling surrounding the ankle and extending to the forefoot especially along the lateral aspect. 3. No erosive or destructive bone changes. 4. Bone defects compatible with previous excision device. Blake Rider MD Lower Extremity CT 03/01/17 0000 Signed Impressions: Service Date/Time: Wednesday, March 01, 2017 11:12 - CONCLUSION: 1. No evidence of organized fluid collections to suggest an abscess. 2. Extensive soft tissue swelling surrounding the ankle and extending to the forefoot especially along the lateral aspect. 3. No erosive or destructive bone changes. 4. Bone defects compatible with previous excision device. Blake Rider MD GENERAL: No acute distress. Still Lethargic. HEENT: EOMI, No icterus. No conjunctival erythema. NECK: Supple. No swelling or adenopathy. LUNGS: Basilar rhonchi. CARDIAC: Irregular rate and rhythm. No murmurs. ABDOMEN: Soft, unable to appreciate tenderness. No reaction to palpation. EXTREMITIES: R. ankle dressing and kennedy UE dressing at hands. SKIN: No rash. NEURO: Lethargic, not following commands. Assessment and Plan Sepsis MRSA source - right foot hardware infection. MRSA bacteremia likely secondary to right foot hardware infection. Bilateral hand cellulitis/septic arthritis of knuckles of index finger. MRSA. Acute metabolic encephalopathy: DT, infection. Alcoholism. Hepatitis C. Leukocytosis. WBC still elevated but lower. Acute renal disease. No improving. Recs: Continue Daptomycin. Continue Rifampin PO. Follow repeat blood cultures. negative x 1 day. Monitor temp. Follow urine culture. If blood culture still positive will need BRUCE. Chilo Lechuga MD Mar 03, 2017 14:31
--- NOTE | 2017-03-03 16:30 | MB ---
cc: ROSEANNA HARRIS DATE OF CONSULTATION: 03/03/2017 HISTORY OF PRESENT ILLNESS Mr. Aguiar is a 61-year-old white male with a history of heavy alcohol use, smoking. He was brought to the emergency room confused. He was found to have ankle infection. He underwent ankle surgery. He has blood cultures and right ankle culture positive for MRSA. He is confused but tries to communicate. He has no chest pain or shortness of breath. PAST MEDICAL HISTORY Past medical history positive for: 1. Hypertension. 2. Hepatitis C. 3. Heavy alcohol use. 4. ORIF right ankle. MEDICATION Flexeril and lisinopril. ALLERGIES CIPRO. SOCIAL HISTORY The patient drinks alcohol daily. He smokes one-pack a day and no history of IV drug use. FAMILY HISTORY Negative for heart disease. REVIEW OF SYSTEMS Review of systems is otherwise negative. PHYSICAL EXAMINATION VITAL SIGNS: Blood pressure 168/90, pulse 123 and regular. HEENT: Negative. NECK: 2+ carotid upstrokes. No bruits. LUNGS: Clear. HEART: Regular with no murmur, gallop, rub. ABDOMEN: Soft. No bruits. EXTREMITIES: Without edema. 1-2+ distal pulses. NEURO: Grossly nonfocal. The patient looks disheveled. Nasogastric tube is in place. EKG EKG was reviewed and showed normal sinus rhythm with normal axis and intervals. ECHOCARDIOGRAM Showed mild left ventricular systolic function with an ejection fraction of 40-45% with mild global hypokinesis, there was no evidence of valvular regurgitation. LABORATORY DATA Hemoglobin is 11.5 and 8.3, potassium 3.6, creatinine 0.86, 1.87 and 2.03. AST and ALT normal. BNP 647. DIAGNOSIS 1. Congestive heart failure. 2. Cardiomyopathy with mild global left ventricular systolic dysfunction. 3. Acute renal insufficiency. 4. Heavy alcohol use. 5. Smoking. 6. MRSA bacteremia. 7. Sepsis. 8. Ankle infection. DISPOSITION Mr. Aguiar will be monitored on telemetry. We will start carvedilol for his left ventricular systolic dysfunction. FRANCISCO inhibitor and ARB will be on hold at this time due to his acute renal insufficiency. I will follow him for cardiology during his hospitalization. MD NORMA Vallecillo/KENZIE /3:03 PM /3:28 PM MTDDiane
--- NOTE | 2017-03-03 17:14 | HHI.PR ---
Subjective Remarks follow up bilateral hand I and D Objective Vital Signs Date Time Temp Pulse Resp B/P Pulse Ox O2 Delivery O2 Flow Rate FiO2 03/03/17 13:39 100 21 03/03/17 12:00 97.6 123 24 168/90 100 03/03/17 10:38 18 03/03/17 08:00 Room Air 03/03/17 08:00 98.9 106 18 145/72 100 03/03/17 05:29 99.6 03/03/17 04:00 101.4 114 30 134/71 92 03/03/17 00:00 100.2 101 26 133/71 96 03/03/17 00:00 Room Air 03/02/17 20:17 106 03/02/17 20:00 Room Air 03/02/17 20:00 98.1 106 24 163/85 95 I/O 03/02/17 03/02/17 03/02/17 03/03/17 03/03/17 03/03/17 06:59 14:59 22:59 06:59 14:59 22:59 Intake Total 0 ml 1633 ml Output Total 1375 ml 600 ml 1550 ml Balance -1375 ml 1033 ml -1550 ml Intake Oral 0 ml IV Total 906 ml Tube Feeding 377 ml Tube Irrigant 50 ml Other 300 ml Output Urine Total 1375 ml 600 ml 1550 ml # Bowel Movements 0 examination right hand and wrist: swelling and erythema extending to the forearm region purulent drainage noted from the incision sites left hand: decreased swelling minimal purulence Result Diagram: 03/03/17 0536 03/03/17 0530 Assessment and Plan Assessment and Plan 61 year old male s/p incision and drainage, arthrotomy bilateral index finger MP joints plan dressing changed continue antibiotics based on ID recommendations plan for repeat wash out both hands, extensor tenosynovectomy right wrist on npo from midnight Roque Bullock MD Mar 03, 2017 17:14
[2017-03-03] MEDS: CARVEDILOL 6.25 MG TAB PO SCH (22:01)
[2017-03-04] VITALS: BP 141/75; PULSE 89; RESP 16; TEMP 97.7; O2SAT 95
[2017-03-04] MEDS: PANTOPRAZOLE SODIUM 40 MG VIAL IV PUSH SCH ×2 (00:04→22:57)
[2017-03-04] MEDS: HYDROmorphone HCL PF 1 MG/ML VIAL IV PUSH PRN ×6 (00:58→22:20)
[2017-03-04 04:00] VITALS: BP 152/72; PULSE 86; RESP 20; TEMP 98.5; O2SAT 93
[2017-03-04] MEDS: LORazepam 2 MG/ML VIAL IV PUSH PRN (04:27)
[2017-03-04] MEDS: cloNIDine HCL 0.3 MG TAB PO SCH ×3 (05:00→22:53)
[2017-03-04 07:24] LABS: HEMATOCRIT 24.5 % (39.0-51.0); MEAN CELL VOLUME 87.7 FL (80.0-100.0); MEAN CORPUSCULAR HEMOGLOBIN 28.5 PG (27.0-34.0); MEAN CORPUSCULAR HGB CONC 32.5 % (32.0-36.0); PLATELET COUNT 227 TH/MM3 (150-450); RED BLOOD COUNT 2.79 MIL/MM3 (4.50-5.90); REVIEW FLAG FINAL; WHITE BLOOD COUNT 19.5 TH/MM3 (4.0-11.0)
[2017-03-04 07:50] LABS: BICARBONATE 27.2 MEQ/L (21.0-32.0); POTASSIUM 3.7 MEQ/L (3.5-5.1)
[2017-03-04 08:00] VITALS: BP 168/91; PULSE 83; PULSE 84; RESP 18; TEMP 97.8; O2SAT 95
[2017-03-04] MEDS: THIAMINE HCL 100 MG TAB PO SCH (09:13)
[2017-03-04] MEDS: CARVEDILOL 6.25 MG TAB PO SCH ×2 (09:13→22:54)
[2017-03-04] MEDS: DIAZEPAM 10 MG TAB PO SCH ×2 (09:13→22:53)
[2017-03-04] MEDS: LORazepam 1 MG TAB PO PRN (09:13)
[2017-03-04] MEDS: MULTIVITAMIN TAB PO SCH (09:13)
[2017-03-04] MEDS: MUPIROCIN 2% OINT 1 APPLIC/GM SYR NASAL SCH ×2 (09:13→22:53)
[2017-03-04] MEDS: RIFAMPIN 150 MG CAP PO SCH ×2 (09:13→22:55)
[2017-03-04] MEDS: ENOXAPARIN SODIUM 40 MG/0.4 ML SYRINGE SQ SCH (09:41)
[2017-03-04] MEDS ORDERED: PHARMACY ORDERED LAB ONE (09:45)
[2017-03-04] MEDS: DAPTOmycin INJ 450 MG in SODIUM CHLORIDE 0.9% INJ 100 ML IV SCH (11:48)
[2017-03-04 12:00] VITALS: BP 153/79; PULSE 77; RESP 18; TEMP 97.7; O2SAT 96
[2017-03-04] MEDS ORDERED: ONDANSETRON HCL 4 MG/2 ML VIAL IV PUSH ONE (12:00)
[2017-03-04] MEDS ORDERED: ePHEDrine/NS 25 MG/5 ML SYR IV ONE (12:00)
[2017-03-04] MEDS ORDERED: PROPOFOL 200 MG/20 ML AMP IV ONE (12:00)
[2017-03-04] MEDS ORDERED: PHENYLEPH/NS 1000 MCG/10 ML SYR IV ONE (12:00)
[2017-03-04 12:51] VITALS: O2SAT 94
[2017-03-04] MEDS: POTASSIUM CHLORIDE INJ 20 MEQ, SODIUM CHLORIDE 23.4% INJ 38.5 MEQ in WATER STERILE FOR ... IV SCH (13:11)
[2017-03-04] MEDS ORDERED: VANCOMYCIN HCL 1000 MG VIAL ONE ×2 (15:10→16:59)
[2017-03-04] MEDS ORDERED: fentaNYL CITRATE 250 MCG/5 ML AMP ONE ×2 (16:38→18:25)
--- NOTE | 2017-03-04 17:42 | PD.OP ---
Operative Report Preoperative Diagnosis: (1) Infectious tenosynovitis of right wrist extensor (2) septic arthritis metacarpophalangeal joint right index finger (3) septic arthritis metacarpophalangeal joint left index finger Postoperative Diagnosis: (1) Infectious tenosynovitis of right wrist extensor (2) septic arthritis metacarpophalangeal joint right index finger (3) septic arthritis metacarpophalangeal joint left index finger Procedure: wash, excisional debridement right hand extensor tenosynovectomy 2nd, 3rd and 4th extensor compartments right wrist wash, excisional debridement left hand Anesthesia: general Surgeon: Roque Bullock Chip Unloader(s): dhara Operation and Findings: infective extensor tenosynovitis 2nd/3rd and 4th compartment with necrotic tissue necrotic devitalized tissues right and left hand index MP joint minimal devitalized tissue Roque Bullock MD Mar 04, 2017 17:42
[2017-03-04] MEDS ORDERED: DO NOT ADM ANY ANTICOAGULANT DRUGS PRN (19:15)
--- NOTE | 2017-03-04 19:58 | PD.CARD.PN ---
Subjective Subjective Remarks Mildly confused, denies CP or SOB Objective Medications Current Medications Medications (Trade) Dose Ordered Sig/Kayla Route Start Time Stop Time Status Last Admin (NS Flush) 2 ml UNSCH PRN IV FLUSH 02/24/17 13:45 02/24/17 13:38 (Zofran Inj) 4 mg Q8HR PRN IV PUSH 02/24/17 18:00 (Vitamin B1) 100 mg DAILY PO 02/25/17 09:00 03/04/17 09:13 (Romazicon Inj) 0.2 mg Q1M PRN IV PUSH 02/25/17 09:15 (Ativan) 1 mg Q4H PRN PO 02/25/17 09:15 03/04/17 09:13 (Ativan Inj) 1 mg Q4H PRN IV PUSH 02/25/17 09:15 03/04/17 04:27 (Theragran) 1 tab DAILY PO 02/26/17 09:00 03/04/17 09:13 (Tylenol) 650 mg Q4H PRN PO 02/25/17 09:15 03/03/17 04:06 (Prinivil) 10 mg DAILY PO 02/26/17 09:00 Hold Enoxaparin Sodium 40 mg 40 mg Q24H SQ 02/25/17 10:00 03/03/17 10:09 (Precedex Inj/NS Inj) 52 ml @ 0 mls/hr TITRATE IV 02/25/17 17:30 02/27/17 13:55 (Ofirmev Inj) 650 mg Q6H PRN IV 02/25/17 21:00 02/25/17 21:37 (Trandate Inj) 10 mg Q6H PRN IV PUSH 02/25/17 23:15 (Protonix Inj) 40 mg Q24H IV PUSH 02/26/17 00:00 03/04/17 00:04 Miscellaneous Information Patient in critical care unit? Ass... Q361D .XX 02/26/17 07:15 (Bactroban Nasal 2% Oint) 1 applic BID NASAL 02/26/17 09:00 03/04/17 09:13 (Catapres) 0.3 mg Q8HR PO 02/26/17 22:11 03/04/17 13:12 (Valium) 5 mg Taper Q12HR PO 02/26/17 22:15 03/06/17 22:14 03/04/17 09:13 (Roxicodone) 5 mg Q4H PRN PO 02/28/17 07:45 03/02/17 01:58 Hydromorphone HCl 0.5 mg 0.5 mg Q3H PRN IV PUSH 02/28/17 07:45 03/04/17 13:13 (Cubicin Inj/NS Inj) 100 ml @ 200 mls/hr Q24H IV 02/28/17 12:00 03/04/17 11:48 Rifampin 300 mg 300 mg Q12HR PO 03/02/17 21:00 03/04/17 09:13 (KCl Inj/Sodium Chloride 23.4% Inj/Sterile Water For Inj) 1,010 ml @ 42 mls/hr Q24H IV 03/03/17 11:00 03/04/17 13:11 (Coreg) 6.25 mg Q12HR PO 03/03/17 21:00 03/04/17 09:13 Miscellaneous Information ALL NURSING DEPARTME... UNSCH PRN .XX 03/04/17 19:15 03/05/17 19:14 Vital Signs / I&O Vital Signs Date Time Temp Pulse Resp B/P Pulse Ox O2 Delivery O2 Flow Rate FiO2 03/04/17 19:00 97.5 81 25 153/67 100 Nasal Cannula 3 03/04/17 18:45 82 23 144/77 100 Nasal Cannula 3 03/04/17 18:30 81 26 144/77 100 Nasal Cannula 3 03/04/17 18:15 83 28 149/65 100 Nasal Cannula 3 03/04/17 18:12 97.5 85 16 139/64 100 T-Piece 15 03/04/17 12:51 94 21 03/04/17 12:00 97.7 77 18 153/79 96 03/04/17 08:00 83 03/04/17 08:00 97.8 84 18 168/91 95 03/04/17 08:00 94 Room Air 03/04/17 04:00 98.5 86 20 152/72 93 03/04/17 00:00 97.7 89 16 141/75 95 03/03/17 20:19 21 03/03/17 20:00 99.0 104 20 164/94 95 03/03/17 20:00 120 I/O 03/03/17 03/03/17 03/03/17 03/04/17 03/04/17 03/04/17 07:00 15:00 23:00 07:00 15:00 23:00 Intake Total 1633 ml 0 ml 0 ml 1600 ml Output Total 1550 ml 1800 ml 350 ml 1300 ml 1400 ml Balance -1550 ml -1800 ml 1283 ml -1300 ml 0 ml 200 ml Intake Oral 0 ml 0 ml 0 ml IV Total 993 ml 100 ml Tube Feeding 640 ml Other 1500 ml Output Urine Total 1550 ml 1800 ml 350 ml 1300 ml 1300 ml Estimated Blood Loss 100 ml # Bowel Movements 0 0 0 0 Physical Exam GENERAL: In NAD SKIN: Warm and dry. HEAD: Normocephalic. EYES: No scleral icterus. No injection or drainage. NECK: Supple, trachea midline. No JVD or lymphadenopathy. CARDIOVASCULAR: Regular rate and rhythm without murmurs, gallops, or rubs. RESPIRATORY: Breath sounds equal bilaterally. No accessory muscle use. GASTROINTESTINAL: Abdomen soft, non-tender, nondistended. MUSCULOSKELETAL: No cyanosis, or edema. Laboratory Laboratory Tests Test 03/04/17 06:41 White Blood Count 19.5 TH/MM3 Red Blood Count 2.79 MIL/MM3 Hemoglobin 8.0 GM/DL Hematocrit 24.5 % Mean Corpuscular Volume 87.7 FL Mean Corpuscular Hemoglobin 28.5 PG Mean Corpuscular Hemoglobin 32.5 % Concent Red Cell Distribution Width 15.0 % Platelet Count 227 TH/MM3 Mean Platelet Volume 9.5 FL Sodium Level 150 MEQ/L Potassium Level 3.7 MEQ/L Chloride Level 118 MEQ/L Carbon Dioxide Level 27.2 MEQ/L Anion Gap 5 MEQ/L Blood Urea Nitrogen 53 MG/DL Creatinine 2.05 MG/DL Estimat Glomerular Filtration 33 ML/MIN Rate Random Glucose 105 MG/DL Calcium Level 8.3 MG/DL B-Type Natriuretic Peptide 671 PG/ML Imaging Last Impressions Chest X-Ray 03/02/17 0000 Signed Impressions: Service Date/Time: Thursday, March 02, 2017 13:26 - CONCLUSION: Interval develop of a small left-sided pleural effusion. Pulmonary venous congestion. Edenilson Oviedo MD Lower Extremity CT 03/01/17 0000 Signed Impressions: Service Date/Time: Wednesday, March 01, 2017 11:12 - CONCLUSION: 1. No evidence of organized fluid collections to suggest an abscess. 2. Extensive soft tissue swelling surrounding the ankle and extending to the forefoot especially along the lateral aspect. 3. No erosive or destructive bone changes. 4. Bone defects compatible with previous excision device. Blake Rider MD Ankle X-Ray 02/26/17 0000 Signed Impressions: Service Date/Time: Sunday, February 26, 2017 17:15 - CONCLUSION: I see no retained surgical instruments. Isaac Stevenson MD FACR Abdomen X-Ray 02/26/17 0000 Signed Impressions: Service Date/Time: Monday, February 27, 2017 00:36 - CONCLUSION: Nasogastric tube within the stomach Harry Lucio MD Upper Extremity Ultrasound 02/25/17 1734 Signed Impressions: Service Date/Time: February 17:54 - CONCLUSION: There is a thin fluid collection within the focal area of soft tissue swelling 2nd digit. Oscar Cassidy MD Hand X-Ray 02/25/17 0000 Signed Impressions: Service Date/Time: February 18:59 - CONCLUSION: No gross bony abnormality. Oscar Cassidy MD Lower Extremity Ultrasound 02/24/17 0000 Signed Impressions: Service Date/Time: Friday, February 24, 2017 13:41 - CONCLUSION: Negative for deep venous thrombosis. Isaac Stevenson MD FACR Head CT 02/24/17 0000 Signed Impressions: Service Date/Time: Friday, February 24, 2017 16:08 - CONCLUSION: 1. No acute intracranial abnormality. 2. Probable large mucocele in the sphenoid sinus. Ty Hankins MD Abdomen/Pelvis CT 02/24/17 0000 Signed Impressions: Service Date/Time: Friday, February 24, 2017 16:16 - CONCLUSION: 1. Marked gaseous distension of large and small bowel most suggestive of ileus. 2. There is no free air. 3. 2.2 cm left adrenal mass. 4. Distended bladder. Isaac Stevenson MD FACR Assessment and Plan Problem List: (1) CHF (congestive heart failure) (2) Cardiomyopathy (3) ARF (acute renal failure) (4) Alcoholism (5) Tobacco use disorder (6) Sepsis Assessment and Plan Continue tx for CHF including carvedilol. Continue monitoring on tele. Increase activity. Monitor renal fx, start FRANCISCO-I once stabilized. Problem Qualifiers (1) Sepsis: Qualified Code: A41.9 - Sepsis, due to unspecified organism Raquel Escobar MD Mar 04, 2017 19:58
[2017-03-04 20:00] VITALS: BP 135/77; PULSE 80; PULSE 84; RESP 20; TEMP 97.5; O2SAT 98
--- NOTE | 2017-03-04 22:14 | HHI.PR ---
Subjective Remarks Patient seen this morning around 10 AM. More alert today. Talking, however disorganized speech Objective Vital Signs Date Time Temp Pulse Resp B/P Pulse Ox O2 Delivery O2 Flow Rate FiO2 03/04/17 20:00 97.5 84 20 135/77 98 03/04/17 19:00 97.5 81 25 153/67 100 Nasal Cannula 3 03/04/17 18:45 82 23 144/77 100 Nasal Cannula 3 03/04/17 18:30 81 26 144/77 100 Nasal Cannula 3 03/04/17 18:15 83 28 149/65 100 Nasal Cannula 3 03/04/17 18:12 97.5 85 16 139/64 100 T-Piece 15 03/04/17 12:51 94 21 03/04/17 12:00 97.7 77 18 153/79 96 03/04/17 08:00 83 03/04/17 08:00 97.8 84 18 168/91 95 03/04/17 08:00 94 Room Air 03/04/17 04:00 98.5 86 20 152/72 93 03/04/17 00:00 97.7 89 16 141/75 95 I/O 03/03/17 03/03/17 03/03/17 03/04/17 03/04/17 03/04/17 06:59 14:59 22:59 06:59 14:59 22:59 Intake Total 1633 ml 0 ml 0 ml 1600 ml Output Total 1550 ml 1800 ml 350 ml 1300 ml 1400 ml Balance -1550 ml -1800 ml 1283 ml -1300 ml 0 ml 200 ml Intake Oral 0 ml 0 ml 0 ml IV Total 993 ml 100 ml Tube Feeding 640 ml Other 1500 ml Output Urine Total 1550 ml 1800 ml 350 ml 1300 ml 1300 ml Estimated Blood Loss 100 ml # Bowel Movements 0 0 0 0 Result Diagram: 03/04/17 0641 03/04/17640 Objective Remarks GENERAL: General lying in bed. Appears comfortable. talking, however disorganized speech. SKIN: Warm and dry. HEAD: Normocephalic. EYES: No scleral icterus. No injection or drainage. NECK: Supple, trachea midline. No JVD. CARDIOVASCULAR: Regular rate and rhythm without murmurs, gallops, or rubs. RESPIRATORY: Breath sounds equal bilaterally. No accessory muscle use. GASTROINTESTINAL: Abdomen soft, non-tender, nondistended. MUSCULOSKELETAL: No cyanosis, or edema. BACK: Nontender without obvious deformity. No CVA tenderness. A/P Assessment and Plan =======03/04/17 //Sepsis. MRSA bacteremia. Fever overnight 101.4. Continues to sepsis. Continue antibiotics as per infectious disease. Urinalysis and blood cultures pending, repeat from 03/02 continue negative today.. //Congestive heart failure. Ejection fraction 40%. appreciate cardiology assistance. diuresis carefully. Strict intake and output. //Acute kidney injury. creatinine 2.0. Likely cardiorenal syndrome. BNP still in the 600s.. continue Strict monitoring of intake and output.fluid balance negative. Continue to monitor. //Hypernatremia. increase quarter normal saline, continue diuresis with net negative goal.. Strict intake and output. Assessment: 61yM with MRSA bacteremia and septic joints, course complicated by severe agitated delirium and etoh withdraw, improving. off precedex. continues to be bacteremic: either persistent infection of the leg without source control vs. ?endocarditis? ID involved. stable to transfer out of ICU. NEURO: //Alcohol dependence //Alcohol withdrawal //Acute encephalopathy //Toxic metabolic encephalopathy secondary to sepsis //Pain associated with septic joints Ativan prn per [facility] Ammonia level 17 on 02/24 CT brain8/2negative B-12 is not low thiamine valium 10 po q8h with taper clonidine 0.3 mg po tid. prn oxycodone 5mg po q4h prn hydromorphone 0.5mg iv q3h prn for breakthrough pain. RESP: //Hypoxemia- improving. 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 Labetalol when necessary systolic blood pressure greater than 165 Monitor hemodynamics Hold home lisinopril for now as at risk for THADDEUS given IV contrast 02/24, sepsis, aminoglycoside. -2-D echo with ejection fraction 40% global hypokinesis. GI: //Hep C antibody positive speech consult- cleared for thickened liquids. continue TF FEN/RENAL: //Hypermagnesemia //Hypernatremia- Free water Deficit Continue Briseno. Monitor intake and output closely given sepsis. Monitor electrolytes. Replace electrolytes as indicated. -hold fluids for now setting of fluid overload //Acute kidney injury -03/02. Creatinine 1.87 from 0.86 -likely secondary to ongoing sepsis versus fluid overload/cardiorenal syndrome. -Continue to monitor ID: //Sepsis //MRSA bacteremia //Septic R ankle //Bilateral hand cellulitis with probable septic 2nd MCP joint bilaterally. //UTI //Leukocytosis with bandemia s/p debridement/hardware removal dale and bilateral upper extremities 02/26 On vancomycin 02/24 #6 for MRSA bacteremia and septic arthritis. Rifampin added yesterday. ID following Dr Jailene Keene. Microbiology: lood cultures 4 out of 4 positive for MRSA 02/24urine cultureMRSA 02/25+ MRSA. 02/28 +MRSA 03/02 NGTD HEME: //Anemia Monitor CBC ENDO: Euglycemic PROPH: Lovenox 40 mg subcutaneous daily for DVT prophylaxis. Protonix 40 mg IV daily for stress ulcer prophylaxis Discharge Planning Continues with sepsis. Brett Oleary MD Mar 04, 2017 22:14
[2017-03-05] VITALS (11 sets, daily range): BP systolic 112–162; BP diastolic 60–72; PULSE 78–89; RESP 17–22; TEMP 97.1–97.6; O2SAT 96–100
[2017-03-05] MEDS: LORazepam 2 MG/ML VIAL IV PUSH PRN (02:41)
[2017-03-05] MEDS: HYDROmorphone HCL PF 1 MG/ML VIAL IV PUSH PRN ×6 (02:42→21:42)
[2017-03-05] MEDS: cloNIDine HCL 0.3 MG TAB PO SCH ×3 (05:40→21:42)
[2017-03-05] MEDS: ENOXAPARIN SODIUM 40 MG/0.4 ML SYRINGE SQ SCH (08:27)
[2017-03-05] MEDS: RIFAMPIN 150 MG CAP PO SCH ×2 (08:27→21:42)
[2017-03-05] MEDS: CARVEDILOL 6.25 MG TAB PO SCH ×2 (08:27→21:42)
[2017-03-05] MEDS: DIAZEPAM 10 MG TAB PO SCH (08:27)
[2017-03-05] MEDS: THIAMINE HCL 100 MG TAB PO SCH (08:27)
[2017-03-05] MEDS: MUPIROCIN 2% OINT 1 APPLIC/GM SYR NASAL SCH ×2 (08:27→21:00)
[2017-03-05] MEDS: MULTIVITAMIN TAB PO SCH (08:27)
[2017-03-05] MEDS: POTASSIUM CHLORIDE INJ 20 MEQ, SODIUM CHLORIDE 23.4% INJ 38.5 MEQ in WATER STERILE FOR ... IV SCH ×2 (08:28→21:43)
[2017-03-05 09:49] LABS: HEMATOCRIT 26.8 % (39.0-51.0); MEAN CELL VOLUME 89.1 FL (80.0-100.0); MEAN CORPUSCULAR HEMOGLOBIN 28.2 PG (27.0-34.0); MEAN CORPUSCULAR HGB CONC 31.7 % (32.0-36.0); PLATELET COUNT 274 TH/MM3 (150-450); RED BLOOD COUNT 3.01 MIL/MM3 (4.50-5.90); RED CELL DISTRIBUTION WIDTH 15.2 % (11.6-17.2); REVIEW FLAG FINAL; WHITE BLOOD COUNT 21.2 TH/MM3 (4.0-11.0)
[2017-03-05 10:26] LABS: BICARBONATE 24.8 MEQ/L (21.0-32.0)
[2017-03-05 10:28] LABS: POTASSIUM 4.4 MEQ/L (3.5-5.1)
--- NOTE | 2017-03-05 12:12 | HHI.IDPN ---
Subjective Subjective Remarks is a 61 y/o CM with PMHx of right foot hardware, hypertension, alcoholism, Hepatitis C who was admitted with sepsis, acute metabolic encephalopathy ? DTs. Removal of hardware from r. ankle 02/27. Noted to have a pocket of pus adjacent to and in contact with the hardware. Could not remove all of the wires per podiatry. Embedded in deep tissue. Culture form both index fingers has MRSA. R ankle culture - and distal fibula 02/26, 02/28 MRSA. Blood culture 02/24, 02/25, 02/27 - MRSA. 2D ECHO - No vegetations noted. Overnight events reviewed. Appears lethargic but arousable and answers questions. No fever No rash No diarrhea UO ok 1850 ml Antibiotics Dapto IV Rifampin oral. Lines Line sites with no e.o infection Past Medical History hypertension alcoholism Hepatitis C right foot surgery with hardware in place. Allergies: Coded Allergies: Cipro (Verified Adverse Reaction, Intermediate, Dizziness, 02/24/17) *MDRO Multi-Drug Resistant Organism (Verified Adverse Reaction, Unknown, ) MRSA (blood)+(urine) 02/24/17, (blood) 02/25/17, 02/27/17 (finger,ankle,leg) 02/26/17, 02/28/17 MRSA PCR screen positive 02/25/17 Objective . Vital Signs Date Time Temp Pulse Resp B/P Pulse Ox O2 Delivery O2 Flow Rate FiO2 03/05/17 08:10 87 03/05/17 08:10 Nasal Cannula 2.00 03/05/17 08:03 97.4 82 20 127/69 100 03/05/17 04:00 97.4 83 17 127/66 98 03/05/17 00:00 97.3 78 18 113/64 96 03/04/17 20:00 80 03/04/17 20:00 97.5 84 20 135/77 98 03/04/17 19:00 95 Room Air 03/04/17 19:00 97.5 81 25 153/67 100 Nasal Cannula 3 03/04/17 18:45 82 23 144/77 100 Nasal Cannula 3 03/04/17 18:30 81 26 144/77 100 Nasal Cannula 3 03/04/17 18:15 83 28 149/65 100 Nasal Cannula 3 03/04/17 18:12 97.5 85 16 139/64 100 T-Piece 15 03/04/17 12:51 94 21 03/04/17 03/04/17 03/05/17 15:00 23:00 07:00 Intake Total 0 ml 1720 ml 0 ml Output Total 1600 ml 250 ml Balance 0 ml 120 ml -250 ml Intake Oral 0 ml 120 ml 0 ml IV Total 100 ml Other 1500 ml Output Urine Total 1500 ml 250 ml Estimated Blood Loss 100 ml # Bowel Movements 0 0 0 . Laboratory Tests Test 03/04/17 03/05/17 06:41 07:30 White Blood Count 19.5 TH/MM3 21.2 TH/MM3 Red Blood Count 2.79 MIL/MM3 3.01 MIL/MM3 Hemoglobin 8.0 GM/DL 8.5 GM/DL Hematocrit 24.5 % 26.8 % Mean Corpuscular Volume 87.7 FL 89.1 FL Mean Corpuscular Hemoglobin 28.5 PG 28.2 PG Mean Corpuscular Hemoglobin 32.5 % 31.7 % Concent Red Cell Distribution Width 15.0 % 15.2 % Platelet Count 227 TH/MM3 274 TH/MM3 Mean Platelet Volume 9.5 FL 9.9 FL Laboratory Tests Test 03/04/17 03/05/17 06:41 07:30 Sodium Level 150 MEQ/L 149 MEQ/L Potassium Level 3.7 MEQ/L 4.4 MEQ/L Chloride Level 118 MEQ/L 116 MEQ/L Carbon Dioxide Level 27.2 MEQ/L 24.8 MEQ/L Anion Gap 5 MEQ/L 8 MEQ/L Blood Urea Nitrogen 53 MG/DL 64 MG/DL Creatinine 2.05 MG/DL 2.17 MG/DL Estimat Glomerular Filtration 33 ML/MIN 31 ML/MIN Rate Random Glucose 105 MG/DL 79 MG/DL Calcium Level 8.3 MG/DL 8.8 MG/DL B-Type Natriuretic Peptide 671 PG/ML Microbiology Date/Time Procedure Status Source Growth 03/02/17 13:30 Urine Culture - Final Complete Urine Catheterized Urine NO GROWTH IN 48 HOURS. 03/04/17 17:25 Gram Stain - Final Resulted Wound Other 03/04/17 17:25 Wound Culture Resulted Wound Other Pending 03/04/17 17:25 Acid Fast Stain Received Wound Other Pending 03/04/17 17:25 Mycobacterial Culture Received Wound Other Pending 03/04/17 17:25 Fungal Smear Received Wound Other Pending 03/04/17 17:25 Fungal Culture Received Wound Other Pending Imaging Last Impressions Chest X-Ray 03/02/17 0000 Signed Impressions: Service Date/Time: Thursday, March 02, 2017 13:26 - CONCLUSION: Interval develop of a small left-sided pleural effusion. Pulmonary venous congestion. Edenilson Oviedo MD Lower Extremity CT 03/01/17 0000 Signed Impressions: Service Date/Time: Wednesday, March 01, 2017 11:12 - CONCLUSION: 1. No evidence of organized fluid collections to suggest an abscess. 2. Extensive soft tissue swelling surrounding the ankle and extending to the forefoot especially along the lateral aspect. 3. No erosive or destructive bone changes. 4. Bone defects compatible with previous excision device. Blake Rider MD Ankle X-Ray 02/26/17 0000 Signed Impressions: Service Date/Time: Sunday, February 26, 2017 17:15 - CONCLUSION: I see no retained surgical instruments. Isaac Stevenson MD FACR Abdomen X-Ray 02/26/17 0000 Signed Impressions: Service Date/Time: Monday, February 27, 2017 00:36 - CONCLUSION: Nasogastric tube within the stomach Harry Lucio MD Upper Extremity Ultrasound 02/25/17 1734 Signed Impressions: Service Date/Time: February 17:54 - CONCLUSION: There is a thin fluid collection within the focal area of soft tissue swelling 2nd digit. Oscar Cassidy MD Hand X-Ray 02/25/17 0000 Signed Impressions: Service Date/Time: February 18:59 - CONCLUSION: No gross bony abnormality. Oscar Cassidy MD Lower Extremity Ultrasound 02/24/17 0000 Signed Impressions: Service Date/Time: Friday, February 24, 2017 13:41 - CONCLUSION: Negative for deep venous thrombosis. Isaac Stevenson MD FACR Head CT 02/24/17 0000 Signed Impressions: Service Date/Time: Friday, February 24, 2017 16:08 - CONCLUSION: 1. No acute intracranial abnormality. 2. Probable large mucocele in the sphenoid sinus. Ty Hankins MD Abdomen/Pelvis CT 02/24/17 0000 Signed Impressions: Service Date/Time: Friday, February 24, 2017 16:16 - CONCLUSION: 1. Marked gaseous distension of large and small bowel most suggestive of ileus. 2. There is no free air. 3. 2.2 cm left adrenal mass. 4. Distended bladder. Isaac Stevenson MD FACR Physical Exam GENERAL: This is a well-nourished, well-developed patient, in no apparent distress. SKIN: No rashes, ecchymoses or lesions. Cool and dry. HEAD: Atraumatic. Normocephalic. No temporal or scalp tenderness. EYES: Pupils equal round and reactive. Extraocular motions intact. No scleral icterus. No injection or drainage. ENT: Nose without bleeding, purulent drainage or septal hematoma. Throat without erythema, tonsillar hypertrophy or exudate. Uvula midline. Airway patent. NECK: Trachea midline. Supple, nontender, no meningeal signs. CARDIOVASCULAR: Regular rate and rhythm without murmurs, gallops, or rubs. RESPIRATORY: Clear to auscultation. Breath sounds equal bilaterally. No wheezes , rales, or rhonchi. GASTROINTESTINAL: Abdomen soft, non-tender, nondistended. MUSCULOSKELETAL: Rt foot with swelling and warmth and fluctuance noted. Bilateral UE with warmth and swelling around knuckles noted. NEUROLOGICAL: Lethargic, awakens on command but drifts back to sleep. 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 distant showering of emboli to other joints. s/p partial removal of hardware. Deeper hardware embedded. MRSA bacteremia Right ankle hardware infection Bilateral UE hand abscess/cellulitis. Leucocytosis: increase today ? Post Acute metabolic encephalopathy: ? infection, metabolic Acute renal failure: ? vanco induced. hypertension alcoholism Hepatitis C Recs Continue Dapto IV (ASP: ? Vanco induced renal failure). d/w Clinical pharmacist to dose at 8 mg/kg IV q48hrs. Continue Rifampin oral for hardware infection right foot. Follow cultures Follow clinically. Will need IV antibiotics plus Rifampin oral for 6 weeks followed by oral suppression. Consider SNF placement as patient has alcoholism history and may not be compliant with medications/antibiotics. covering for me this weekend. Time > 40 mins. Critical thinking and decision making. Sunshine Keene MD Mar 05, 2017 12:12 Time > 40 mins. Critical thinking and decision making. Sunshine Keene MD Mar 05, 2017 12:12
[2017-03-05] MEDS: DAPTOmycin INJ 450 MG in SODIUM CHLORIDE 0.9% INJ 100 ML IV SCH (13:41)
--- NOTE | 2017-03-05 17:45 | PD.CARD.PN ---
Subjective Subjective Remarks No CP or SOB, c/o back pain Objective Medications Current Medications Medications (Trade) Dose Ordered Sig/Kayla Route Start Time Stop Time Status Last Admin (NS Flush) 2 ml UNSCH PRN IV FLUSH 02/24/17 13:45 02/24/17 13:38 (Zofran Inj) 4 mg Q8HR PRN IV PUSH 02/24/17 18:00 (Vitamin B1) 100 mg DAILY PO 02/25/17 09:00 03/05/17 08:27 (Romazicon Inj) 0.2 mg Q1M PRN IV PUSH 02/25/17 09:15 (Ativan) 1 mg Q4H PRN PO 02/25/17 09:15 03/04/17 09:13 (Ativan Inj) 1 mg Q4H PRN IV PUSH 02/25/17 09:15 03/05/17 02:41 (Theragran) 1 tab DAILY PO 02/26/17 09:00 03/05/17 08:27 (Tylenol) 650 mg Q4H PRN PO 02/25/17 09:15 03/03/17 04:06 (Prinivil) 10 mg DAILY PO 02/26/17 09:00 Hold Enoxaparin Sodium 40 mg 40 mg Q24H SQ 02/25/17 10:00 03/05/17 08:27 (Precedex Inj/NS Inj) 52 ml @ 0 mls/hr TITRATE IV 02/25/17 17:30 02/27/17 13:55 (Ofirmev Inj) 650 mg Q6H PRN IV 02/25/17 21:00 02/25/17 21:37 (Trandate Inj) 10 mg Q6H PRN IV PUSH 02/25/17 23:15 (Protonix Inj) 40 mg Q24H IV PUSH 02/26/17 00:00 03/04/17 22:57 Miscellaneous Information Patient in critical care unit? Ass... Q361D .XX 02/26/17 07:15 (Bactroban Nasal 2% Oint) 1 applic BID NASAL 02/26/17 09:00 03/05/17 08:27 (Catapres) 0.3 mg Q8HR PO 02/26/17 22:11 03/05/17 12:34 (Valium) 5 mg Taper DAILY PO 02/26/17 22:15 03/06/17 22:14 03/05/17 08:27 (Roxicodone) 5 mg Q4H PRN PO 02/28/17 07:45 03/02/17 01:58 Hydromorphone HCl 0.5 mg 0.5 mg Q3H PRN IV PUSH 02/28/17 07:45 03/05/17 17:26 (Cubicin Inj/NS Inj) 100 ml @ 200 mls/hr Q24H IV 02/28/17 12:00 03/05/17 18:00 03/05/17 13:41 Rifampin 300 mg 300 mg Q12HR PO 03/02/17 21:00 03/05/17 08:27 (KCl Inj/Sodium Chloride 23.4% Inj/Sterile Water For Inj) 1,010 ml @ 55 mls/hr [id number] IV 03/03/17 11:00 03/05/17 08:28 (Coreg) 6.25 mg Q12HR PO 03/03/17 21:00 03/05/17 08:27 Miscellaneous Information ALL NURSING DEPARTME... UNSCH PRN .XX 03/04/17 19:15 03/05/17 19:14 (Cubicin Inj/NS Inj) 100 ml @ 200 mls/hr Q24H IV 03/06/17 12:00 Vital Signs / I&O Vital Signs Date Time Temp Pulse Resp B/P Pulse Ox O2 Delivery O2 Flow Rate FiO2 03/05/17 16:07 97.1 83 22 112/61 97 03/05/17 15:08 97 Nasal Cannula 3.00 03/05/17 12:15 97.3 78 20 128/72 98 03/05/17 08:10 87 03/05/17 08:10 Nasal Cannula 2.00 03/05/17 08:03 97.4 82 20 127/69 100 03/05/17 04:00 97.4 83 17 127/66 98 03/05/17 00:00 97.3 78 18 113/64 96 03/04/17 20:00 80 03/04/17 20:00 97.5 84 20 135/77 98 03/04/17 19:00 95 Room Air 03/04/17 19:00 97.5 81 25 153/67 100 Nasal Cannula 3 03/04/17 18:45 82 23 144/77 100 Nasal Cannula 3 03/04/17 18:30 81 26 144/77 100 Nasal Cannula 3 03/04/17 18:15 83 28 149/65 100 Nasal Cannula 3 03/04/17 18:12 97.5 85 16 139/64 100 T-Piece 15 I/O 03/04/17 03/04/17 03/04/17 03/05/17 03/05/17 03/05/17 06:59 14:59 22:59 06:59 14:59 22:59 Intake Total 0 ml 0 ml 1720 ml 0 ml Output Total 1300 ml 1600 ml 250 ml 1750 ml Balance -1300 ml 0 ml 120 ml -250 ml -1750 ml Intake Oral 0 ml 0 ml 120 ml 0 ml IV Total 100 ml Other 1500 ml Output Urine Total 1300 ml 1500 ml 250 ml 1750 ml Estimated Blood Loss 100 ml # Bowel Movements 0 0 0 0 0 Physical Exam GENERAL: In NAD SKIN: Warm and dry. HEAD: Normocephalic. EYES: No scleral icterus. No injection or drainage. NECK: Supple, trachea midline. No JVD or lymphadenopathy. CARDIOVASCULAR: Regular rate and rhythm without murmurs, gallops, or rubs. RESPIRATORY: Breath sounds equal bilaterally. No accessory muscle use. GASTROINTESTINAL: Abdomen soft, non-tender, nondistended. MUSCULOSKELETAL: No cyanosis, or edema. Laboratory Laboratory Tests Test 03/05/17 07:30 White Blood Count 21.2 TH/MM3 Red Blood Count 3.01 MIL/MM3 Hemoglobin 8.5 GM/DL Hematocrit 26.8 % Mean Corpuscular Volume 89.1 FL Mean Corpuscular Hemoglobin 28.2 PG Mean Corpuscular Hemoglobin 31.7 % Concent Red Cell Distribution Width 15.2 % Platelet Count 274 TH/MM3 Mean Platelet Volume 9.9 FL Sodium Level 149 MEQ/L Potassium Level 4.4 MEQ/L Chloride Level 116 MEQ/L Carbon Dioxide Level 24.8 MEQ/L Anion Gap 8 MEQ/L Blood Urea Nitrogen 64 MG/DL Creatinine 2.17 MG/DL Estimat Glomerular Filtration 31 ML/MIN Rate Random Glucose 79 MG/DL Calcium Level 8.8 MG/DL Imaging Last Impressions Chest X-Ray 03/02/17 0000 Signed Impressions: Service Date/Time: Thursday, March 02, 2017 13:26 - CONCLUSION: Interval develop of a small left-sided pleural effusion. Pulmonary venous congestion. Edenilson Oviedo MD Lower Extremity CT 03/01/17 0000 Signed Impressions: Service Date/Time: Wednesday, March 01, 2017 11:12 - CONCLUSION: 1. No evidence of organized fluid collections to suggest an abscess. 2. Extensive soft tissue swelling surrounding the ankle and extending to the forefoot especially along the lateral aspect. 3. No erosive or destructive bone changes. 4. Bone defects compatible with previous excision device. Blake Rider MD Ankle X-Ray 02/26/17 Signed Impressions: Service Date/Time: Sunday, February 26, 2017 17:15 - CONCLUSION: I see no retained surgical instruments. Isaac Stevenson MD FACR Abdomen X-Ray 02/26/17 Signed Impressions: Service Date/Time: Monday, February 27, 2017 00:36 - CONCLUSION: Nasogastric tube within the stomach Harry Lucio MD Upper Extremity Ultrasound 02/25/17 1734 Signed Impressions: Service Date/Time: February 17:54 - CONCLUSION: There is a thin fluid collection within the focal area of soft tissue swelling 2nd digit. Oscar Cassidy MD Hand X-Ray 02/25/17 0000 Signed Impressions: Service Date/Time: February 18:59 - CONCLUSION: No gross bony abnormality. Oscar Cassidy MD Lower Extremity Ultrasound 02/24/17 Signed Impressions: Service Date/Time: Friday, February 24, 2017 13:41 - CONCLUSION: Negative for deep venous thrombosis. Isaac Stevenson MD FACR Head CT 02/24/17 0000 Signed Impressions: Service Date/Time: Friday, February 24, 2017 16:08 - CONCLUSION: 1. No acute intracranial abnormality. 2. Probable large mucocele in the sphenoid sinus. Ty Hankins MD Abdomen/Pelvis CT 02/24/17 0000 Signed Impressions: Service Date/Time: Friday, February 24, 2017 16:16 - CONCLUSION: 1. Marked gaseous distension of large and small bowel most suggestive of ileus. 2. There is no free air. 3. 2.2 cm left adrenal mass. 4. Distended bladder. Isaac Stevenson MD FACR Assessment and Plan Problem List: (1) CHF (congestive heart failure) (2) Cardiomyopathy (3) ARF (acute renal failure) (4) Alcoholism (5) Tobacco use disorder (6) Sepsis Assessment and Plan No new cardiac issues. Continue tx for CHF including carvedilol. Continue monitoring on tele. Increase activity. Monitor renal fx, start FRANCISCO-I once stabilized. Problem Qualifiers (1) Sepsis: Qualified Code: A41.9 - Sepsis, due to unspecified organism Raquel Escobar MD Mar 05, 2017 17:45
--- NOTE | 2017-03-05 17:50 | MB ---
cc: ZAHRA BROWN MD DATE OF CONSULTATION 03/05/17 REASON FOR CONSULTATION Acute kidney injury with elevated BUN and creatinine. HISTORY OF PRESENT ILLNESS This is a 61 year old male with past medical history of hypertension, history of being homeless. He was admitted on February 25 with altered mental status and leukocytosis. I was called to see the patient because of elevated BUN and creatinine. The patient has been followed by Infectious Disease and cardiology and he has been diagnosed with sepsis and bacteremia MRSA and also diagnosed with congestive heart failure. He has a wound in the leg which grew out MRSA. Currently, he is getting feeding tube, NG tube and also getting some IV fluid. The patient has a Briseno catheter and he is passing good urine. Infectious Disease is following the patient and he is getting daptomycin now. The patient was on vancomycin before which was stopped on the . Looking back, his vancomycin trough level was 20-21 on 02/26. The patient is not a very good historian, not able to give much history. Most of the history was taken from patient's chart. PAST MEDICAL HISTORY 1. Hypertension 2. History of being homeless 3. Congestive heart failure PAST SURGICAL HISTORY History of right foot surgery REVIEW OF SYSTEMS Limited since he is not answering most of the questions, but denied any headache, dizziness or blurring of vision. He has some abdominal pain and also complains of back pain. No shortness of breath. No chest pain. No palpitation. SOCIAL HISTORY The patient is homeless and he has history of smoking about a pack per day and drinking alcohol almost every day. ALLERGIES CIPROFLOXACIN MEDICATIONS Currently, 1. IV fluid he is getting with potassium chloride at 55 mL an hour. 2. Thiamine 100 mg daily 3. Multivitamin one tablet daily 4. Valium 5 mg daily 5. Rifampin 300 mg q 12 hr 6. Carvedilol 6.25 mg q 12 hr 7. Lovenox 40 mg subcu ____4 hr 8. Protonix 40 mg q 24 hr. 9. Daptomycin 450 mg q 24 hr 10. Catapres 0.3 mg q 8 hr 11. Dexmedetomidine infusion 12. Zofran as needed 13. Flumazenil as needed 14. Ativan as needed PHYSICAL EXAMINATION GENERAL: The patient is awake. He is currently with an NG tube and oriented times one not in acute distress. VITAL SIGNS: Last blood pressure 112/61, temperature 97.1, oxygen saturation on 3 liters nasal cannula was 97%. HEENT: Pupils are mid constricted, nonicteric sclerae. Conjunctivae pale. NECK: Supple. JVD is slightly elevated. LUNGS: The patient has bilateral good air entry with basal rales and scattered wheezing. HEART: S1, S2 regular rhythm ABDOMEN: Distended, soft, lax. There is no tenderness. EXTREMITIES: Mild edema. LABORATORY DATA WBC count is 21.2, hemoglobin 8.5, platelet count 274. Sodium 149, potassium 4.4, chloride 116, bicarb 24.8, BUN 64, creatinine 2.1, calcium 8.8. AST/ALT normal. Alkaline phosphatase 159. Total protein 5.9. Albumin 1.0. INR 1.1. Urinalysis showing that he has protein of 30. Toxicology screen on presentation was negative and his ethyl alcohol was less than 3. Previously, he was hepatitis C positive. HIV is negative. The last blood culture is negative, previously he had MRSA in the blood in the wound culture. IMAGING STUDIES The patient has lower leg CT scan done with IV contrast and it shows no evidence of organized fluid collection. Chest x-ray was done which shows that he has left-sided small pleural effusion. He had an echocardiogram done which shows that his ejection fraction is 40-45%, normal left ventricular size. Wall thickening is normal. No pericardial effusion. ASSESSMENT AND PLAN 1. Acute kidney injury 2. Bacteremia and sepsis 3. Wound infection 4. Congestive heart failure 5. Anemia 6. Encephalopathy The patient has multiple comorbid conditions and now developed acute kidney injury. He seems to be nonoliguric. The creatinine is almost the same for the past 2-3 days, but his differential diagnosis for acute kidney injury will either acute tubular necrosis or possibility of interstitial nephritis or possibility of contrast nephropathy. I will check the urine osmolality sodium and eosinophils. I agree with continuing the IV fluid and avoid any nephrotoxins. Follow the urine output and the BUN and creatinine. Thank you for the consultation. MD HTA Evans/ /4:59 PM /5:10 PM
--- NOTE | 2017-03-05 17:52 | PD.POD ---
Subjective Podiatric Problems S/P Right ankle HW removal and repeat washout with Dr. Reyes. Last sx was on 03/04/17 with , repeat washout delayed primary closure x 3 and insertion of absorbable abx beads. Patient is challenging to understand. He does not appear to be in distress, but does have pain during the dressing change. Past Med/Surg/Social History Past Surgical History Gastrointestinal: DENIES HX OF: Colectomy, total Social History Smoking Status: Current Every Day Smoker Objective Vital Signs Vital Signs Date Time Temp Pulse Resp B/P Pulse Ox O2 Delivery O2 Flow Rate FiO2 03/05/17 16:07 97.1 83 22 112/61 97 03/05/17 15:08 97 Nasal Cannula 3.00 03/05/17 12:15 97.3 78 20 128/72 98 03/05/17 08:10 87 03/05/17 08:10 Nasal Cannula 2.00 03/05/17 08:03 97.4 82 20 127/69 100 03/05/17 04:00 97.4 83 17 127/66 98 03/05/17 00:00 97.3 78 18 113/64 96 03/04/17 20:00 80 03/04/17 20:00 97.5 84 20 135/77 98 03/04/17 19:00 95 Room Air 03/04/17 19:00 97.5 81 25 153/67 100 Nasal Cannula 3 03/04/17 18:45 82 23 144/77 100 Nasal Cannula 3 03/04/17 18:30 81 26 144/77 100 Nasal Cannula 3 03/04/17 18:15 83 28 149/65 100 Nasal Cannula 3 03/04/17 18:12 97.5 85 16 139/64 100 T-Piece 15 Coded Allergies: Cipro (Verified Adverse Reaction, Intermediate, Dizziness, 02/24/17) *MDRO Multi-Drug Resistant Organism (Verified Adverse Reaction, Unknown, ) MRSA (blood)+(urine) 02/24/17, (blood) 02/25/17, 02/27/17 (finger,ankle,leg) 02/26/17, 02/28/17 MRSA PCR screen positive 02/25/17 Physical Exam Remarks Decreased edema and erythema. Only slight erythema around incision sites. Sutures remain intact and skin edges are well coapted to the lateral, anterior, and anteromedial incisions without drainage. The most medial incision has a central area which remains open for packing. There is slight sanginous drainage with yellow/white granular remnants (drainage from the abx beads), no malodor, decreased erythema and edema. Assessment & Plan A/P 1) Right ankle infected hardware, septic joint -s/p hardware removal and washout x 2 with , washout and delayed primary closure by 03/04/17 -pts infection sites all appeared encouraging and much improved today, no plans for further intervention in the near future, but will cont to monitor closely -cont iv abx -elevate legs -dressing change orders placed for nursing staff Amparo Gamez DPM Mar 05, 2017 17:51
--- NOTE | 2017-03-05 20:21 | HHI.PR ---
Subjective Remarks follow up bilateral hand I and D right wrist extensor tenosynovectomy patient responds to oral commands better Objective Vital Signs Date Time Temp Pulse Resp B/P Pulse Ox O2 Delivery O2 Flow Rate FiO2 03/05/17 19:48 Nasal Cannula 2.00 03/05/17 17:56 97 Nasal Cannula 3.00 03/05/17 16:07 97.1 83 22 112/61 97 03/05/17 15:08 97 Nasal Cannula 3.00 03/05/17 12:15 97.3 78 20 128/72 98 03/05/17 08:10 87 03/05/17 08:10 Nasal Cannula 2.00 03/05/17 08:03 97.4 82 20 127/69 100 03/05/17 04:00 97.4 83 17 127/66 98 03/05/17 00:00 97.3 78 18 113/64 96 I/O 03/04/17 03/04/17 03/04/17 03/05/17 03/05/17 03/05/17 07:00 15:00 23:00 07:00 15:00 23:00 Intake Total 0 ml 0 ml 1720 ml 0 ml Output Total 1300 ml 1600 ml 250 ml 1750 ml Balance -1300 ml 0 ml 120 ml -250 ml -1750 ml Intake Oral 0 ml 0 ml 120 ml 0 ml IV Total 100 ml Other 1500 ml Output Urine Total 1300 ml 1500 ml 250 ml 1750 ml Estimated Blood Loss 100 ml # Bowel Movements 0 0 0 0 0 right hand and wrist: packing in place swelling and erythema noted minimal skin necrosis noted minimal drainage noted left hand: decreased swelling packing in place no drainage cultures MRSA wbc count 21 today Result Diagram: 03/05/17 0730 03/05/17 0730 Assessment and Plan Assessment and Plan 61 year old male s/p incision and drainage, arthrotomy bilateral index finger MP joints, extensor tenosynovectomy POD 1 plan dressing changed after pulling out the packing a little bit continue antibiotics based on ID recommendations will change packing in a day or two hand elevation over pillows finger range of motion exercises passively. Roque Bullock MD Mar 05, 2017 20:21
--- NOTE | 2017-03-05 23:28 | HHI.PR ---
Subjective Remarks Patient seen this morning. Wakes up for exam. Appears report pain all over which has per nursing, been consistent during this admission.. Objective Vital Signs Date Time Temp Pulse Resp B/P Pulse Ox O2 Delivery O2 Flow Rate FiO2 03/05/17 21:07 97.6 88 18 162/71 98 03/05/17 20:00 89 03/05/17 19:48 Nasal Cannula 2.00 03/05/17 17:56 97 Nasal Cannula 3.00 03/05/17 16:07 97.1 83 22 112/61 97 03/05/17 15:08 97 Nasal Cannula 3.00 03/05/17 12:15 97.3 78 20 128/72 98 03/05/17 08:10 87 03/05/17 08:10 Nasal Cannula 2.00 03/05/17 08:03 97.4 82 20 127/69 100 03/05/17 04:00 97.4 83 17 127/66 98 03/05/17 00:00 97.3 78 18 113/64 96 I/O 03/04/17 03/04/17 03/04/17 03/05/17 03/05/17 03/05/17 07:00 15:00 23:00 07:00 15:00 23:00 Intake Total 0 ml 0 ml 1720 ml 0 ml 440 ml Output Total 1300 ml 1600 ml 250 ml 1750 ml Balance -1300 ml 0 ml 120 ml -250 ml -1750 ml 440 ml Intake Oral 0 ml 0 ml 120 ml 0 ml IV Total 100 ml 440 ml Other 1500 ml Output Urine Total 1300 ml 1500 ml 250 ml 1750 ml Estimated Blood Loss 100 ml # Bowel Movements 0 0 0 0 0 Result Diagram: 03/05/1772903/05/1730 Objective Remarks GENERAL: General lying in bed. Appears comfortable. talking, however disorganized speech. SKIN: Warm and dry. HEAD: Normocephalic. EYES: No scleral icterus. No injection or drainage. NECK: Supple, trachea midline. No JVD. CARDIOVASCULAR: Regular rate and rhythm without murmurs, gallops, or rubs. RESPIRATORY: Breath sounds equal bilaterally. No accessory muscle use. GASTROINTESTINAL: Abdomen soft, non-tender, nondistended. MUSCULOSKELETAL: No cyanosis, or edema.bilateral wrists wrapped BACK: Nontender without obvious deformity. No CVA tenderness. A/P Assessment and Plan =======03/05/17 //Sepsis. MRSA bacteremia. No fevers overnight. Leukocytosis still with white count 21.2. Continues with sepsis. Continue antibiotics as per infectious disease. Urinalysis and blood cultures pending, repeat from 03/02 continue negative today.. //Congestive heart failure. Ejection fraction 40%. appreciate cardiology assistance. diuresis carefully. Strict intake and output. //Acute kidney injury. creatinine 2.17. Likely cardiorenal syndrome. Possibly secondary to vancomycin which has been discontinued. Consult nephrology. //Hypernatremia. Sodium 149, down from 150. Continue increase quarter normal saline, continue diuretics with goal of neutral fluid balance.. Continue Strict intake and output. Assessment: 61yM with MRSA bacteremia and septic joints, course complicated by severe agitated delirium and etoh withdraw, improving. off precedex. continues to be bacteremic: either persistent infection of the leg without source control vs. ?endocarditis? ID involved. stable to transfer out of ICU. NEURO: //Alcohol dependence //Alcohol withdrawal //Acute encephalopathy //Toxic metabolic encephalopathy secondary to sepsis //Pain associated with septic joints Ativan prn per CIWA Ammonia level 17 on 02/24 CT brain8/2negative B-12 is not low thiamine valium 10 po q8h with taper clonidine 0.3 mg po tid. prn oxycodone 5mg po q4h prn hydromorphone 0.5mg iv q3h prn for breakthrough pain. RESP: //Hypoxemia- improving. 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 Labetalol when necessary systolic blood pressure greater than 165 Monitor hemodynamics Hold home lisinopril for now as at risk for THADDEUS given IV contrast 02/24, sepsis, aminoglycoside. -2-D echo with ejection fraction 40% global hypokinesis. GI: //Hep C antibody positive speech consult- cleared for thickened liquids. continue TF FEN/RENAL: //Hypermagnesemia //Hypernatremia- Free water Deficit Continue Briseno. Monitor intake and output closely given sepsis. Monitor electrolytes. Replace electrolytes as indicated. -hold fluids for now setting of fluid overload //Acute kidney injury -03/02. Creatinine 1.87 from 0.86 -likely secondary to ongoing sepsis versus fluid overload/cardiorenal syndrome. -Continue to monitor ID: //Sepsis //MRSA bacteremia //Septic R ankle //Bilateral hand cellulitis with probable septic 2nd MCP joint bilaterally. //UTI //Leukocytosis with bandemia s/p debridement/hardware removal dale and bilateral upper extremities 02/26 On vancomycin 02/24 #6 for MRSA bacteremia and septic arthritis. Rifampin added yesterday. ID following Dr Jailene Keene. Microbiology: lood cultures 4 out of 4 positive for MRSA 02/24urine cultureMRSA 02/25+ MRSA. 02/28 +MRSA 03/02 NGTD HEME: //Anemia Monitor CBC ENDO: Euglycemic PROPH: Lovenox 40 mg subcutaneous daily for DVT prophylaxis. Protonix 40 mg IV daily for stress ulcer prophylaxis Discharge Planning Continues with sepsis. Brett Oleary MD Mar 05, 2017 23:28
[2017-03-06] MEDS: PANTOPRAZOLE SODIUM 40 MG VIAL IV PUSH SCH ×2 (01:32→23:39)
[2017-03-06] MEDS: HYDROmorphone HCL PF 1 MG/ML VIAL IV PUSH PRN ×4 (01:37→23:42)
[2017-03-06 04:35] VITALS: BP 155/71; PULSE 88; RESP 18; TEMP 97.9; O2SAT 98
[2017-03-06] MEDS: cloNIDine HCL 0.3 MG TAB PO SCH ×3 (06:12→20:12)
[2017-03-06 07:33] LABS: AUTOMATED NEUTROPHIL # 13.8 TH/MM3 (1.8-7.7); BASOPHIL % 0.1 % (0.0-2.0); EOSINOPHIL # 0.1 TH/MM3 (0-0.4); EOSINOPHIL % 0.6 % (0.0-4.0); HEMATOCRIT 23.9 % (39.0-51.0); HEMO FLAGS DIFF FINAL; LYMPH % 7.9 % (9.0-44.0); LYMPHOCYTE # 1.3 TH/MM3 (1.0-4.8); MEAN CELL VOLUME 87.7 FL (80.0-100.0); MEAN CORPUSCULAR HEMOGLOBIN 28.8 PG (27.0-34.0); MEAN CORPUSCULAR HGB CONC 32.8 % (32.0-36.0); NEUT % 86.4 % (16.0-70.0); PLATELET COUNT 284 TH/MM3 (150-450); RED BLOOD COUNT 2.73 MIL/MM3 (4.50-5.90); RED CELL DISTRIBUTION WIDTH 15.2 % (11.6-17.2); WHITE BLOOD COUNT 15.9 TH/MM3 (4.0-11.0)
[2017-03-06 07:36] LABS: BICARBONATE 27.3 MEQ/L (21.0-32.0); MAGNESIUM 2.5 MG/DL (1.5-2.5); POTASSIUM 3.8 MEQ/L (3.5-5.1)
[2017-03-06 08:00] VITALS: BP 126/59; PULSE 88; RESP 18; TEMP 98.4; O2SAT 98
[2017-03-06 08:10] VITALS: PULSE 88
[2017-03-06] MEDS: THIAMINE HCL 100 MG TAB PO SCH (09:49)
[2017-03-06] MEDS: MUPIROCIN 2% OINT 1 APPLIC/GM SYR NASAL SCH ×2 (09:49→20:12)
[2017-03-06] MEDS: RIFAMPIN 150 MG CAP PO SCH ×2 (09:49→20:11)
[2017-03-06] MEDS: DIAZEPAM 10 MG TAB PO SCH (09:49)
[2017-03-06] MEDS: CARVEDILOL 6.25 MG TAB PO SCH ×2 (09:49→20:11)
[2017-03-06] MEDS: MULTIVITAMIN TAB PO SCH (09:49)
[2017-03-06] MEDS: ENOXAPARIN SODIUM 40 MG/0.4 ML SYRINGE SQ SCH (10:00)
--- NOTE | 2017-03-06 10:26 | MP ---
cc: FILIBERTO SAGASTUME MD DATE OF SURGERY 03/04/2017 PREOPERATIVE DIAGNOSIS Infectious extensor tenosynovitis right wrist right, right index finger metacarpal phalangeal joint septic arthritis, left index finger metacarpal phalangeal joint septic arthritis. POSTOPERATIVE DIAGNOSIS Infectious extensor tenosynovitis second, third, and fourth compartments left wrist, right index finger MP joint septic arthritis, left index finger MP joint septic arthritis. PROCEDURE Extensor tenosynovectomy second, third, fourth extensor compartments right wrist and excisional debridement wash index finger metacarpal phalangeal joint, wash and excisional debridement left hand. INDICATIONS The patient is a 61-year-old male with MRSA and multiple joint infection including implant infection involving the right ankle. He also developed septic arthritis involving the index finger metacarpal phalangeal joint bilaterally. The patient underwent exploration, arthrotomy, wash and multiple debridements in the past. He was brought in for continued drainage from both hands. The patient was also brought in for a right ankle wash out by podiatry. PROCEDURE NOTE The patient brought to the operating room and under general anesthesia both upper extremities were thoroughly prepped and draped. Initially attention was then directed to the left hand. The limb was elevated 2 minutes and tourniquet inflated to 250 mmHg. The previously placed incision over the dorsal aspect of the index finger metacarpal phalangeal joint and the hand was removed. There was evidence of minimal necrotic tissue and devitalized tissue in the region and some purulent material noted within this region. A wash was given using normal saline mixed with hydrogen peroxide. This was then followed by normal saline mixed with vancomycin. Excisional debridement of the necrotic and devitalized tissue was carried out from the surface of the second metacarpal and the extensor tendons. The joint was also thoroughly debrided and washed. Tourniquet was deflated. Total tourniquet time was a 8 minutes on the left hand. Packing of the wounds were carried out and the wounds were loosely approximated using 5-0 nylon in a horizontal mattress interrupted fashion. Attention was then directed to the right hand. After limb elevation, tourniquet was inflated to 250 mmHg. The previously placed incisions over the index finger MP joint and over the thumb extensor compartment was removed. There was evidence of purulence within the region. Incision was then marked in a curvilinear fashion over the dorsal aspect of the wrist incorporating the previous incision. Incision was made over the proposed incision site and skin flaps were elevated. The patient had thrombosed veins which were cauterized and excised. The extensor retinaculum was exposed. The third extensor retinaculum was released. The finger extensor pollicis longus tendon had tenosynovitis around the tendon which was debrided. The fourth extensor compartment was then opened. There was evidence of tenosynovitis involving the extensor compartment which was debrided. There was also evidence of necrotic tissue within the distal forearm which was excised and debrided. The second extensor compartment was also involved. This was opened up and debridement of the tenosynovium was carried out. A thorough wash was given using normal saline mixed with hydrogen peroxide. This was then followed by normal saline mixed with vancomycin. The tourniquet was deflated. Total tourniquet time was 43 minutes. The patient had good distal circulation after the tourniquet. Packing of the wounds were carried out. Vancomycin antibiotic beads were also put within the soft tissues. Packing of the wounds was carried out using quarter inch Iodoform packing material. A bulky hand dressing was applied which was held in placed by Sof-Rol and a bias hand wrap. The patient had good distal circulation at the end of the procedure. He was sent to the Recovery Room in stable condition. The plan will be to continue antibiotics and the patient may also need repeat debridements. Filiberot Sagastume MD SE/TE /5:43 PM /10:12 AM DAISY
--- NOTE | 2017-03-06 10:32 | MP ---
cc: KIMBERLEE GAMEZ DATE OF SURGERY 03/04/[address] Kimberlee Gamez ENGRAVER BLOCK None PREOPERATIVE DIAGNOSIS Right leg abscess x3. POSTOPERATIVE DIAGNOSIS Right leg abscess x3. PROCEDURES PERFORMED 1. Right leg and incision and drainage. 2. Right foot delayed primary closure x3 PATHOLOGY SENT Includes microbiology and pathology, tibial bone samples. ESTIMATED BLOOD LOSS Less than 20 mL. MATERIALS USED Include absorbable antibiotic beads with Vancomycin, quarter inch Iodoform packing, 2-0 Prolene. COMPLICATIONS None INDICATIONS Mr. Aguiar is a 61-year-old male patient very well-known to my partner, Dr. Sharon Reyes who removed infected hardware from the patient's leg and did a second surgery to again clean out the infected purulent material. At the reason dressing change, it was noted that the medial ankle incision continued to drain a purulent type fluid and the decision was made to return to the operating room for further drainage. His bilateral hands are infected as well and he is having surgery with the hand surgeon today, so the decision was made to operate at the same time to reduce the patient was exposed and anesthesia. The consent was approved by the patient's next the kin. PROCEDURE When I arrived to the operating room, the patient was already prepped and draped as the hand surgeon was actively working. I removed the sutures from the right lower extremity and the nurse did a sterile Betadine prep before draping the leg portion of the patient. There was a 10 cm incision long incision on the medial aspect of the ankle which had some fibrotic tissue debrided and there is a larger bone void at the distal medial tibia which had small old antibiotic beads in it which were removed. There were no signs of purulent infection or necrotic tissue in this area. Attention was then directed to the medial tibia where there was an approximately 5-cm linear longitudinal incision with mild purulent drainage and fibrotic tissue. Manual pressure was used to exsanguinate any purulent material. It did not appear to be tracking up the posterior tibialis tendon at this time. Attention was then directed to the anterior incision which was 2 cm. This actually had a granular appearing wound bed and no signs of purulence. Attention was then directed to the lateral incision site which had a 10 cm linear longitudinal incision over the fibula, mild fibrotic tissue, no necrosis, very slight questionable purulent drainage from the most distal aspect of the incision. All of the incision sites were flushed with copious amounts of sterile saline using a pulse lavage. Two samples of bone were obtained from the distal tibia bone void, one sent to pathology, one sent to microbiology for further evaluation. New absorbable antibiotic beads infused with one gram of vancomycin were then inserted into the bone void. A small amount of packing was inserted into the medial incision and a small wick was inserted into the dorsal medial incision. The lateral, anterior, and medial incisions were all closed using 2-0 Prolene. The skin was easily coapted with minimal tension. The most medial incision with the packing was lightly closed. We again ask the patient to have packing be reapplied at a later date if needed. The leg was cleansed and dressed with sterile Adaptic, abdominal pads, 4x4s, cast padding and an Levy bandage. The patient tolerated the procedure and anesthesia well. He will recover in the PACU for a period time before being discharged back to his room. Kimberlee PEARSON/TE /6:14 PM /10:20 AM
[2017-03-06 12:00] VITALS: BP 121/58; PULSE 84; RESP 18; TEMP 97.9; O2SAT 98
[2017-03-06] MEDS: DAPTOMYCIN IV SCH (12:37)
[2017-03-06] MEDS: SODIUM CHLORIDE 0.9% IV SCH (12:37)
--- NOTE | 2017-03-06 13:19 | HHI.NPPN ---
Subjective History of Present Illness 61 year old male with past medical history of hypertension, history of being homeless. He was admitted on February 25 with altered mental status and leukocytosis. I was called to see the patient because of elevated BUN and creatinine. Additional Remarks Patient is alert, and remain confused, not in distress. Objective Data Data 03/05/17 03/06/17 19:00 07:00 Intake Total 857 ml Output Total 1750 ml 700 ml Balance -1750 ml 157 ml Intake Oral 0 ml IV Total 857 ml Output Urine Total 1750 ml 700 ml # Bowel Movements 0 0 Vital Signs Date Time Temp Pulse Resp B/P Pulse Ox O2 Delivery O2 Flow Rate FiO2 03/06/17 12:00 97.9 84 18 121/58 98 03/06/17 08:00 98.4 88 18 126/59 98 03/06/17 04:35 97.9 88 18 155/71 98 03/05/17 23:15 97.5 84 18 127/60 99 03/05/17 21:07 97.6 88 18 162/71 98 03/05/17 20:00 89 03/05/17 19:48 Nasal Cannula 2.00 03/05/17 17:56 97 Nasal Cannula 3.00 03/05/17 16:07 97.1 83 22 112/61 97 03/05/17 15:08 97 Nasal Cannula 3.00 -: 03/06/17 0500 03/06/17 0500 Physical Exam General Appearance: No Acute Distress, Anxious Eyes Eye Exam: Pupils Equal Throat Throat Exam: Oral Mucosa [place] & Moist Neck Neck Exam: Neck Supple Pulmonary Resp Exam: Breath Sounds Equal, No Distress, Rhonchi, Decreased Bases Cardiology CV Exam: Regular, Normal Sinus Rhythm Gastrointestinal/Abdomen GI Exam: Soft, Non-Tender, Bowel Sounds Present Extremeties Extremities Exam: Trace Edema Neurologic Neuro Exam: Alert, Awake, Oriented Psychiatric Psych Exam: Appropriate Responses Assessment/Plan Assessment Summary: THADDEUS/Acute Renal Failure Problem List: (1) Encephalopathy (2) Essential hypertension (3) Hepatitis C, chronic (4) Abscess of right hand including fingers (5) Abscess of left hand including fingers (6) Alcoholism (7) CHF (congestive heart failure) (8) Sepsis (9) ARF (acute renal failure) Plan Patient has been non oliguric. Urine Eosinophils negative. Urine Na. is normal. Most likely has ATN. Continue gentle hydration and antibiotics. Avoid Nephrotoxins. Follow the urine out put and BMP. Problem Qualifiers (1) Sepsis: Qualified Code: A41.9 - Sepsis, due to unspecified organism Diane Barker MD Mar 06, 2017 13:19
[2017-03-06 16:00] VITALS: BP 134/63; PULSE 90; RESP 18; TEMP 98.9; O2SAT 97
[2017-03-06] MEDS: POTASSIUM CHLORIDE INJ 20 MEQ, SODIUM CHLORIDE 23.4% INJ 38.5 MEQ in WATER STERILE FOR ... IV SCH (17:32)
[2017-03-06 20:00] VITALS: BP 142/67; PULSE 88; PULSE 89; RESP 20; TEMP 100.3; O2SAT 96
[2017-03-06] MEDS: ACETAMINOPHEN 1000 MG/100 ML VIAL IV PRN (20:12)
[2017-03-06] MEDS ORDERED: BISACODYL 10 MG SUPP RECTAL PRN (21:00)
[2017-03-06] MEDS: DOCUSATE SODIUM 100 MG/10 ML UDC PO SCH (22:07)
--- NOTE | 2017-03-06 23:42 | HHI.PR ---
Subjective Remarks Seen this morning. Says he is feeling well. Denies any pain. Objective Vital Signs Date Time Temp Pulse Resp B/P Pulse Ox O2 Delivery O2 Flow Rate FiO2 03/06/17 20:00 100.3 89 20 142/67 96 03/06/17 16:00 98.9 90 18 134/63 97 03/06/17 14:22 Nasal Cannula 3.00 03/06/17 12:00 97.9 84 18 121/58 98 03/06/17 08:10 88 03/06/17 08:00 98.4 88 18 126/59 98 03/06/17 07:15 Nasal Cannula 2.00 03/06/17 04:35 97.9 88 18 155/71 98 I/O 03/05/17 03/05/17 03/05/17 03/06/17 03/06/17 03/06/17 07:00 15:00 23:00 07:00 15:00 23:00 Intake Total 0 ml 440 ml 417 ml 0 ml 0 ml Output Total 250 ml 1750 ml 450 ml 250 ml 1000 ml 2000 ml Balance -250 ml -1750 ml -10 ml 167 ml -1000 ml -2000 ml Intake Oral 0 ml 0 ml 0 ml 0 ml 0 ml IV Total 440 ml 417 ml Output Urine Total 250 ml 1750 ml 450 ml 250 ml 1000 ml 2000 ml # Bowel Movements 0 0 0 0 0 0 Result Diagram: 03/06/17 0500 03/06/17 0500 Objective Remarks GENERAL: General lying in bed. Appears comfortable. talking, however disorganized speech, as before. SKIN: Warm and dry. HEAD: Normocephalic. EYES: No scleral icterus. No injection or drainage. NECK: Supple, trachea midline. No JVD. CARDIOVASCULAR: Regular rate and rhythm without murmurs, gallops, or rubs. RESPIRATORY: Breath sounds equal bilaterally. No accessory muscle use. GASTROINTESTINAL: Abdomen soft, non-tender, nondistended. MUSCULOSKELETAL: No cyanosis, or edema.bilateral wrists wrapped BACK: Nontender without obvious deformity. No CVA tenderness. A/P Assessment and Plan 03/06/17 -Hypernatremia. na 150. Free water flushes increased. -Renal function relatively stable. cr 2.1 Continue to monitor closely. Appreciate nephrology assistance. //Sepsis. MRSA bacteremia. No fevers overnight. Leukocytosis still with white count 15.9. Continues with sepsis. Continue antibiotics as per infectious disease. repeat cx from 03/02 continue negative today.. Assessment: 61yM with MRSA bacteremia and septic joints, course complicated by severe agitated delirium and etoh withdraw, improving. off precedex. continues to be bacteremic: either persistent infection of the leg without source control vs. ?endocarditis? ID involved. stable to transfer out of ICU. NEURO: //Alcohol dependence //Alcohol withdrawal //Acute encephalopathy //Toxic metabolic encephalopathy secondary to sepsis //Pain associated with septic joints Ativan prn per CIWA Ammonia level 17 on 02/24 CT brain8/2negative B-12 is not low thiamine valium 10 po q8h with taper clonidine 0.3 mg po tid. prn oxycodone 5mg po q4h prn hydromorphone 0.5mg iv q3h prn for breakthrough pain. RESP: //Hypoxemia- improving. 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 Labetalol when necessary systolic blood pressure greater than 165 Monitor hemodynamics Hold home lisinopril for now as at risk for THADDEUS given IV contrast 02/24, sepsis, aminoglycoside. -2-D echo with ejection fraction 40% global hypokinesis. GI: //Hep C antibody positive speech consult- cleared for thickened liquids. continue TF FEN/RENAL: //Hypermagnesemia //Hypernatremia- Free water Deficit Continue Briseno. Monitor intake and output closely given sepsis. Monitor electrolytes. Replace electrolytes as indicated. -hold fluids for now setting of fluid overload //Acute kidney injury -03/02. Creatinine 1.87 from 0.86 -likely secondary to ongoing sepsis versus fluid overload/cardiorenal syndrome. -Continue to monitor ID: //Sepsis //MRSA bacteremia //Septic R ankle //Bilateral hand cellulitis with probable septic 2nd MCP joint bilaterally. //UTI //Leukocytosis with bandemia s/p debridement/hardware removal dale and bilateral upper extremities 02/26 On vancomycin 02/24 #6 for MRSA bacteremia and septic arthritis. Rifampin added yesterday. ID following Dr Jailene Keene. Microbiology: lood cultures 4 out of 4 positive for MRSA 02/24urine cultureMRSA 02/25+ MRSA. 02/28 +MRSA 03/02 NGTD HEME: //Anemia Monitor CBC ENDO: Euglycemic PROPH: Lovenox 40 mg subcutaneous daily for DVT prophylaxis. Protonix 40 mg IV daily for stress ulcer prophylaxis Discharge Planning Continues with sepsis. Brett Oleary MD Mar 06, 2017 23:42 Monitor CBC ENDO: Euglycemic PROPH: Lovenox 40 mg subcutaneous daily for DVT prophylaxis. Protonix 40 mg IV daily for stress ulcer prophylaxis Discharge Planning Continues with sepsis. Brett Oleary MD Mar 06, 2017 23:42
[2017-03-07] VITALS (9 sets, daily range): BP systolic 112–140; BP diastolic 56–95; PULSE 88–106; RESP 20; TEMP 97.4–99.6; O2SAT 94–97
[2017-03-07] MEDS: LACTULOSE SYRUP 20 GM/30 ML CUP NG PRN ×2 (04:45→18:45)
[2017-03-07] MEDS: HYDROmorphone HCL PF 1 MG/ML VIAL IV PUSH PRN ×3 (04:47→22:37)
[2017-03-07] MEDS: ACETAMINOPHEN 325 MG TAB PO PRN (04:47)
[2017-03-07] MEDS: cloNIDine HCL 0.3 MG TAB PO SCH ×3 (04:47→22:35)
[2017-03-07] MEDS: THIAMINE HCL 100 MG TAB PO SCH (09:00)
[2017-03-07] MEDS: CARVEDILOL 6.25 MG TAB PO SCH ×2 (09:00→22:35)
[2017-03-07] MEDS: RIFAMPIN 150 MG CAP PO SCH ×2 (09:00→22:36)
[2017-03-07] MEDS: MUPIROCIN 2% OINT 1 APPLIC/GM SYR NASAL SCH ×2 (09:00→22:36)
[2017-03-07] MEDS: MULTIVITAMIN TAB PO SCH (09:00)
[2017-03-07] MEDS: DOCUSATE SODIUM 100 MG/10 ML UDC PO SCH ×2 (09:00→22:35)
[2017-03-07 09:54] LABS: AUTOMATED NEUTROPHIL # 9.4 TH/MM3 (1.8-7.7); BASOPHIL # 0.1 TH/MM3 (0-0.2); BASOPHIL % 0.6 % (0.0-2.0); EOSINOPHIL % 0.3 % (0.0-4.0); LYMPH % 11.2 % (9.0-44.0); LYMPHOCYTE # 1.3 TH/MM3 (1.0-4.8); MEAN CELL VOLUME 88.4 FL (80.0-100.0); MEAN CORPUSCULAR HEMOGLOBIN 28.1 PG (27.0-34.0); MEAN CORPUSCULAR HGB CONC 31.8 % (32.0-36.0); MONO % 5.9 % (0.0-8.0); PLATELET COUNT 238 TH/MM3 (150-450); RED CELL DISTRIBUTION WIDTH 15.2 % (11.6-17.2); WHITE BLOOD COUNT 11.5 TH/MM3 (4.0-11.0)
[2017-03-07] MEDS: ENOXAPARIN SODIUM 40 MG/0.4 ML SYRINGE SQ SCH (10:00)
[2017-03-07 10:08] LABS: HEMO FLAGS DIFF FINAL
[2017-03-07 10:11] LABS: HEMATOCRIT 20.4 % (39.0-51.0)
[2017-03-07 10:19] LABS: ANION GAP 7 MEQ/L (5-15); BICARBONATE 26.8 MEQ/L (21.0-32.0); BLOOD UREA NITROGEN 61 MG/DL (7-18); CHLORIDE 118 MEQ/L (98-107); GLOMERULAR FILTRATION RATE 30 ML/MIN (>89); MAGNESIUM 2.4 MG/DL (1.5-2.5); POTASSIUM 3.6 MEQ/L (3.5-5.1); SODIUM (NA) 152 MEQ/L (136-145)
--- NOTE | 2017-03-07 10:25 | PD.ORT.PN ---
Subjective Subjective Remarks right hand painful--feels about the same Range of Motion minimal AROM of right fingers and moving left fingers pretty well Objective Vitals Vital Signs Date Time Temp Pulse Resp B/P Pulse Ox O2 Delivery O2 Flow Rate FiO2 03/07/17 08:00 97.4 90 20 140/66 94 03/07/17 04:00 99.6 106 20 112/56 94 03/07/17 00:00 99.0 89 20 118/58 95 03/06/17 20:00 88 03/06/17 20:00 100.3 89 20 142/67 96 03/06/17 20:00 96 Room Air 03/06/17 16:00 98.9 90 18 134/63 97 03/06/17 14:22 Nasal Cannula 3.00 03/06/17 12:00 97.9 84 18 121/58 98 I/O 03/06/17 03/06/17 03/06/17 03/07/17 03/07/17 03/07/17 06:59 14:59 22:59 06:59 14:59 22:59 Intake Total 417 ml 0 ml 1202 ml 1208 ml Output Total 250 ml 1000 ml 2000 ml 1300 ml Balance 167 ml -1000 ml -798 ml -92 ml Intake Oral 0 ml 0 ml 0 ml 0 ml IV Total 417 ml 741 ml 433 ml Tube Feeding 341 ml 455 ml Other 120 ml 320 ml Output Urine Total 250 ml 1000 ml 2000 ml 1300 ml # Bowel Movements 0 0 0 0 Result Diagram: 03/07/17 0830 03/06/17 0500 Other Results 03/04 culture right tibia negative 03/02 blood cultures negative 02/26 finger culture --MRSA--sensitivities noted Objective Remarks being tube fed per NG tube and watching TV right proximal portion of forearm wound and at right 1st web space area with expressible purulence and pus on the packing in these 2 areas other packing pretty clean with serosanguinous drainage on the dressing. right hand with moderate edema left hand with minimal edema and small amount of pus on the packing and no expressible pus from the largest wound small wound healing and no drainage no erythema Assessment & Plan Problem List: (1) Infectious tenosynovitis of right wrist extensor (2) Abscess of right hand including fingers (3) septic arthritis metacarpophalangeal joint right index finger (4) septic arthritis metacarpophalangeal joint left index finger (5) Abscess of left hand including fingers (6) Hepatitis C, chronic (7) Alcoholism Assessment and Plan wounds cleaned with peroxide and normal saline and lightly repacked left index finger wound and right hand and forearm wounds and redressed with 4x4s, 3" Gillian. Elevate right hand discussed with Dr. Bullock and continue IV antibiotics and needs repeat I & D right hand and forearm Left hand is okay and does not need washout. Will keep NPO and consent ordered. Shauna Walker MD Mar 07, 2017 10:25
--- NOTE | 2017-03-07 11:14 | HHI.NPPN ---
Subjective History of Present Illness 61 year old male with past medical history of hypertension, history of being homeless. He was admitted on February 25 with altered mental status and leukocytosis. I was called to see the patient because of elevated BUN and creatinine. Additional Remarks Patient is alert, still confused, not in distress. Objective Data Data 03/06/17 03/07/17 19:00 07:00 Intake Total 0 ml 2410 ml Output Total 1000 ml 3300 ml Balance -1000 ml -890 ml Intake Oral 0 ml 0 ml IV Total 1174 ml Tube Feeding 796 ml Other 440 ml Output Urine Total 1000 ml 3300 ml # Bowel Movements 0 0 Vital Signs Date Time Temp Pulse Resp B/P Pulse Ox O2 Delivery O2 Flow Rate FiO2 03/07/17 08:00 97.4 90 20 140/66 94 03/07/17 04:00 99.6 106 20 112/56 94 03/07/17 00:00 99.0 89 20 118/58 95 03/06/17 20:00 88 03/06/17 20:00 100.3 89 20 142/67 96 03/06/17 20:00 96 Room Air 03/06/17 16:00 98.9 90 18 134/63 97 03/06/17 14:22 Nasal Cannula 3.00 03/06/17 12:00 97.9 84 18 121/58 98 -: 03/07/17 0830 03/07/17 0830 Physical Exam General Appearance: No Acute Distress, Anxious Eyes Eye Exam: Pupils Equal Throat Throat Exam: Oral Mucosa [place] & Moist Neck Neck Exam: Neck Supple Pulmonary Resp Exam: Breath Sounds Equal, No Distress, Rhonchi, Decreased Bases Cardiology CV Exam: Regular, Normal Sinus Rhythm Gastrointestinal/Abdomen GI Exam: Soft, Non-Tender, Bowel Sounds Present Extremeties Extremities Exam: Trace Edema Neurologic Neuro Exam: Alert, Awake, Oriented Psychiatric Psych Exam: Appropriate Responses Assessment/Plan Assessment Summary: THADDEUS/Acute Renal Failure Problem List: (1) Encephalopathy (2) Essential hypertension (3) Hepatitis C, chronic (4) Abscess of right hand including fingers (5) Abscess of left hand including fingers (6) Alcoholism (7) CHF (congestive heart failure) (8) Sepsis (9) ARF (acute renal failure) Plan Patient has been non oliguric. Urine Eosinophils negative. Urine Na. is normal. Most likely has ATN. Continue gentle hydration and antibiotics. Avoid Nephrotoxins. Creatinine increase slightly and Na is 152, on Hypotonic fluid with Kcl. For surgery in AM. Hgb. is low, will need transfusion. Problem Qualifiers (1) Sepsis: Qualified Code: A41.9 - Sepsis, due to unspecified organism Diane Barker MD Mar 07, 2017 11:14
[2017-03-07] MEDS: SODIUM CHLORIDE 0.9% IV SCH (12:00)
[2017-03-07] MEDS: DAPTOMYCIN IV SCH (12:00)
--- NOTE | 2017-03-07 14:16 | HHI.PR ---
Subjective Remarks Patient seen this morning around 10 AM. Says he is feeling all right. Denies any pain. Objective Vital Signs Date Time Temp Pulse Resp B/P Pulse Ox O2 Delivery O2 Flow Rate FiO2 03/07/17 09:00 96 Room Air 03/07/17 08:00 97.4 90 20 140/66 94 03/07/17 04:00 99.6 106 20 112/56 94 03/07/17 00:00 99.0 89 20 118/58 95 03/06/17 20:00 88 03/06/17 20:00 100.3 89 20 142/67 96 03/06/17 20:00 96 Room Air 03/06/17 16:00 98.9 90 18 134/63 97 03/06/17 14:22 Nasal Cannula 3.00 I/O 03/06/17 03/06/17 03/06/17 03/07/17 03/07/17 03/07/17 07:00 15:00 23:00 07:00 15:00 23:00 Intake Total 417 ml 0 ml 1202 ml 1208 ml Output Total 250 ml 1000 ml 2000 ml 1300 ml Balance 167 ml -1000 ml -798 ml -92 ml Intake Oral 0 ml 0 ml 0 ml 0 ml IV Total 417 ml 741 ml 433 ml Tube Feeding 341 ml 455 ml Other 120 ml 320 ml Output Urine Total 250 ml 1000 ml 2000 ml 1300 ml # Bowel Movements 0 0 0 0 Result Diagram: 03/07/1782903/07/1730 Objective Remarks GENERAL: lying in bed. Appears comfortable. talking, however disorganized speech, as before. SKIN: Warm and dry. HEAD: Normocephalic. EYES: No scleral icterus. No injection or drainage. NECK: Supple, trachea midline. No JVD. CARDIOVASCULAR: Regular rate and rhythm without murmurs, gallops, or rubs. RESPIRATORY: Breath sounds equal bilaterally. No accessory muscle use. GASTROINTESTINAL: Abdomen soft, non-tender, nondistended. MUSCULOSKELETAL: No cyanosis, or edema.bilateral wrists wrapped BACK: Nontender without obvious deformity. No CVA tenderness. A/P Assessment and Plan 03/07/17 //Anemia. Hemoglobin 6.5, however all cell lines down. Recheck. May need transfusion. No signs of bleeding. Continues on PPI. //Hypernatremia. na 152. Slight worsening. Nephrology following. Continue free water flushes. Expect to improve with improvement in renal function. Continue to monitor. //Renal function relatively stable. cr 2.2 Continue to monitor closely. Appreciate nephrology assistance. //Sepsis. MRSA bacteremia. No fevers overnight. Leukocytosis still with white count 11.5. Continues with sepsis. Continue antibiotics as per infectious disease. repeat cx from 03/02 continue negative today.. //Reorder speech therapy for swallow evaluation. Patient on NG tube. May need PEG tube Assessment: 61yM with MRSA bacteremia and septic joints, course complicated by severe agitated delirium and etoh withdraw, improving. off precedex. continues to be bacteremic: either persistent infection of the leg without source control vs. ?endocarditis? ID involved. stable to transfer out of ICU. NEURO: //Alcohol dependence //Alcohol withdrawal //Acute encephalopathy //Toxic metabolic encephalopathy secondary to sepsis //Pain associated with septic joints Ativan prn per CIWA Ammonia level 17 on 02/24 CT brain8/2negative B-12 is not low thiamine valium 10 po q8h with taper clonidine 0.3 mg po tid. prn oxycodone 5mg po q4h prn hydromorphone 0.5mg iv q3h prn for breakthrough pain. RESP: //Hypoxemia- improving. 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 Labetalol when necessary systolic blood pressure greater than 165 Monitor hemodynamics Hold home lisinopril for now as at risk for THADDEUS given IV contrast 02/24, sepsis, aminoglycoside. -2-D echo with ejection fraction 40% global hypokinesis. GI: //Hep C antibody positive speech consult- cleared for thickened liquids. continue TF FEN/RENAL: //Hypermagnesemia //Hypernatremia- Free water Deficit Continue Briseno. Monitor intake and output closely given sepsis. Monitor electrolytes. Replace electrolytes as indicated. -hold fluids for now setting of fluid overload //Acute kidney injury -03/02. Creatinine 1.87 from 0.86 -likely secondary to ongoing sepsis versus fluid overload/cardiorenal syndrome. -Continue to monitor ID: //Sepsis //MRSA bacteremia //Septic R ankle //Bilateral hand cellulitis with probable septic 2nd MCP joint bilaterally. //UTI //Leukocytosis with bandemia s/p debridement/hardware removal dale and bilateral upper extremities 02/26 On vancomycin 02/24 #6 for MRSA bacteremia and septic arthritis. Rifampin added yesterday. ID following Dr Jailene Keene. Microbiology: lood cultures 4 out of 4 positive for MRSA 02/24urine cultureMRSA 02/25+ MRSA. 02/28 +MRSA 03/02 NGTD HEME: //Anemia Monitor CBC ENDO: Euglycemic PROPH: Lovenox 40 mg subcutaneous daily for DVT prophylaxis. Protonix 40 mg IV daily for stress ulcer prophylaxis Discharge Planning Continues with sepsis. Brett Oleary MD Mar 07, 2017 14:16
[2017-03-07] MEDS: POTASSIUM CHLORIDE INJ 20 MEQ, SODIUM CHLORIDE 23.4% INJ 38.5 MEQ in WATER STERILE FOR ... IV SCH (15:06)
[2017-03-07 18:34] LABS: AUTOMATED NEUTROPHIL # 11.4 TH/MM3 (1.8-7.7); BASOPHIL # 0.1 TH/MM3 (0-0.2); BASOPHIL % 0.4 % (0.0-2.0); EOSINOPHIL # 0.1 TH/MM3 (0-0.4); EOSINOPHIL % 0.4 % (0.0-4.0); LYMPH % 8.3 % (9.0-44.0); LYMPHOCYTE # 1.1 TH/MM3 (1.0-4.8); MEAN CELL VOLUME 87.5 FL (80.0-100.0); MEAN CORPUSCULAR HEMOGLOBIN 28.6 PG (27.0-34.0); MEAN CORPUSCULAR HGB CONC 32.7 % (32.0-36.0); MONO % 5.3 % (0.0-8.0); NEUT % 85.6 % (16.0-70.0); PLATELET COUNT 246 TH/MM3 (150-450); RED BLOOD COUNT 2.41 MIL/MM3 (4.50-5.90); WHITE BLOOD COUNT 13.3 TH/MM3 (4.0-11.0)
[2017-03-07 18:41] LABS: HEMO FLAGS DIFF FINAL
[2017-03-07 18:43] LABS: HEMATOCRIT 21.1 % (39.0-51.0)
[2017-03-07] MEDS ORDERED: SODIUM CHLOR 0.9% 250 ML INJ 250 ML IV ONE (19:00)
[2017-03-07] MEDS ORDERED: FUROSEMIDE 20 MG/2 ML VIAL IV ONE (19:00)
[2017-03-07 19:52] LABS: RETIC % 0.8 % (0.4-3.0)
[2017-03-07 20:01] LABS: REVIEW FLAG FINAL
[2017-03-07 20:08] LABS: FERRITIN 368 NG/ML (26-388); TRANSFERRIN IRON PROFILE 64 MG/DL (200-360)
[2017-03-07] MEDS: PANTOPRAZOLE SODIUM 40 MG VIAL IV PUSH SCH (22:35)
[2017-03-08] VITALS (9 sets, daily range): BP systolic 109–143; BP diastolic 53–71; PULSE 66–92; RESP 18–22; TEMP 97.3–98.8; O2SAT 95–100
[2017-03-08] MEDS: POTASSIUM CHLORIDE INJ 20 MEQ, SODIUM CHLORIDE 23.4% INJ 38.5 MEQ in WATER STERILE FOR ... IV SCH (03:48)
[2017-03-08] MEDS: HYDROmorphone HCL PF 1 MG/ML VIAL IV PUSH PRN ×3 (03:49→22:50)
[2017-03-08 05:01] LABS: AUTOMATED NEUTROPHIL # 12.8 TH/MM3 (1.8-7.7); BASOPHIL # 0.1 TH/MM3 (0-0.2); BASOPHIL % 0.4 % (0.0-2.0); EOSINOPHIL % 0.3 % (0.0-4.0); HEMATOCRIT 24.5 % (39.0-51.0); HEMO FLAGS DIFF FINAL; LYMPH % 10.1 % (9.0-44.0); LYMPHOCYTE # 1.5 TH/MM3 (1.0-4.8); MEAN CELL VOLUME 86.2 FL (80.0-100.0); MEAN CORPUSCULAR HEMOGLOBIN 29.1 PG (27.0-34.0); MEAN CORPUSCULAR HGB CONC 33.8 % (32.0-36.0); NEUT % 84.2 % (16.0-70.0); PLATELET COUNT 240 TH/MM3 (150-450); RED BLOOD COUNT 2.84 MIL/MM3 (4.50-5.90); RED CELL DISTRIBUTION WIDTH 14.3 % (11.6-17.2); WHITE BLOOD COUNT 15.1 TH/MM3 (4.0-11.0)
[2017-03-08 05:20] LABS: MAGNESIUM 2.3 MG/DL (1.5-2.5)
[2017-03-08] MEDS: cloNIDine HCL 0.3 MG TAB PO SCH ×3 (06:08→22:39)
[2017-03-08] MEDS: ENOXAPARIN SODIUM 40 MG/0.4 ML SYRINGE SQ SCH (10:00)
--- NOTE | 2017-03-08 10:04 | PD.CONS ---
HPI History of Present Illness This is a 61 year old with multiple medical problems who is currently hospitalized with MRSA bacteremia, septic joints, with concern for possible endocarditis. He is s/p removal of hardware from previous right ankle ORIF () and is being treated with Daptomycin and Rifampin, per Infectious Disease 's recommendation. He also has a history of hepatitis C antibodies and ETOH abuse and his hospital stay has been complicated from alcohol withdrawal. He is also being followed by nephrology for his acute renal injury and they feel that this is most likely related to ATN. He currently has an NGT and is receiving TF. Speech therapy has been following patient, although the last few visits, he was not able to participate in swallow evaluation. GI has been consulted for drop in Hgb/concern for GI bleeding. HH on admission (02/24/17) was 13.0/39.1. This has gradually been trending down with a drop from 7.8/23.9 to 6.5/20.4 on 03/07. He was transfused one unit of PRBC and his HH is currently 8.3/24.5. He is not having any obvious active GI bleeding. There are no bowel movement's documented in the EMR. He is on a bowel regimen of colace, dulcolax suppository prn (has not been given), lactulose daily, He is not having any nausea or vomiting. He is lethargic and confused, but denies nausea/vomiting/abdominal pain. He cannot tell me if he has ever had GI bleeding before. He is requesting something to eat and drink. He does not appear to have any abdominal tenderness on exam. He denies ever having an EGD or colonoscopy. (Delia Zimmerman) [facility] Past Medical History HTN Hepatitis C antibodies ETOH abuse Past Surgical History Right ORIF (Delia Zimmerman) Coded Allergies: Cipro (Verified Adverse Reaction, Intermediate, Dizziness, 02/24/17) *MDRO Multi-Drug Resistant Organism (Verified Adverse Reaction, Unknown, ) MRSA (blood)+(urine) 02/24/17, (blood) 02/25/17, 02/27/17 (finger,ankle,leg) 02/26/17, 02/28/17 MRSA PCR screen positive 02/25/17 Medications Allergies Coded Allergies Type Severity Reaction Last Updated Verified Cipro Adverse Reaction Intermediate Dizziness 02/24/17 Yes *MDRO Multi-Drug Resistant Organism Adverse Reaction Unknown 03/02/17 Yes Active Scripts Medications Dose Route/Sig Days Date Category Flexeril (Cyclobenzaprine HCl) 10 Mg Tab 10 Mg PO TID 12/08/16 Rx Lisinopril 10 Mg Tab 10 Mg PO DAILY 12/08/16 Rx Naproxen Sodium 220 Mg Tab 220 Mg PO BID PRN 09/03/16 Reported Family History Unable to obtain Social History According to EMR, smokes a pack a day- and drinks daily. (Delia Zimmerman) Review of Systems Constitutional: COMPLAINS OF: Fatigue Respiratory: COMPLAINS OF: Cough Cardiovascular: DENIES: Chest pain Gastrointestinal: COMPLAINS OF: Constipation, DENIES: Abdominal pain, Black stools, Bloody stools, Nausea, Vomiting, Hematemesis Psychiatric: COMPLAINS OF: Confusion (Limited, confused) (Delia Zimmerman) GI Exam Vitals I&O Vital Signs Date Time Temp Pulse Resp B/P Pulse Ox O2 Delivery O2 Flow Rate FiO2 03/08/17 08:03 97.5 78 18 119/58 96 03/08/17 04:00 98.8 92 20 126/71 95 03/08/17 04:00 Room Air 03/08/17 00:42 98.0 84 20 112/55 100 03/08/17 00:42 Room Air 03/08/17 00:23 Room Air 03/08/17 00:23 98.4 89 22 109/53 97 03/08/17 00:00 97.6 88 20 118/58 96 03/07/17 21:41 96 21 03/07/17 20:32 93 03/07/17 20:00 97.8 93 20 132/95 95 03/07/17 20:00 Room Air 03/07/17 16:00 98.8 88 20 133/62 97 03/07/17 15:10 20 03/07/17 12:00 99.4 88 20 127/61 94 I/O 03/07/17 03/07/17 03/07/17 03/08/17 03/08/17 03/08/17 06:59 14:59 22:59 06:59 14:59 22:59 Intake Total 1208 ml 0 ml 1459 ml 605 ml Output Total 1300 ml 2550 ml 0 ml 1750 ml Balance -92 ml -2550 ml 1459 ml -1145 ml Intake Oral 0 ml 0 ml 0 ml 0 ml IV Total 433 ml 877 ml 258 ml Tube Feeding 455 ml 522 ml Packed Cells 347 ml Tube Irrigant 60 ml Other 320 ml Output Urine Total 1300 ml 2550 ml 0 ml 1750 ml # Bowel Movements 0 0 Imaging Last Impressions Chest X-Ray 03/02/17 0000 Signed Impressions: Service Date/Time: Thursday, March 02, 2017 13:26 - CONCLUSION: Interval develop of a small left-sided pleural effusion. Pulmonary venous congestion. Edenilson Oviedo MD Lower Extremity CT 03/01/17 0000 Signed Impressions: Service Date/Time: Wednesday, March 01, 2017 11:12 - CONCLUSION: 1. No evidence of organized fluid collections to suggest an abscess. 2. Extensive soft tissue swelling surrounding the ankle and extending to the forefoot especially along the lateral aspect. 3. No erosive or destructive bone changes. 4. Bone defects compatible with previous excision device. Blake Rider MD Ankle X-Ray 02/26/17 0000 Signed Impressions: Service Date/Time: Sunday, February 26, 2017 17:15 - CONCLUSION: I see no retained surgical instruments. Isaac Stevenson MD FACR Abdomen X-Ray 02/26/17 0000 Signed Impressions: Service Date/Time: Monday, February 27, 2017 00:36 - CONCLUSION: Nasogastric tube within the stomach Harry Lucio MD Upper Extremity Ultrasound 02/25/17 1734 Signed Impressions: Service Date/Time: February 17:54 - CONCLUSION: There is a thin fluid collection within the focal area of soft tissue swelling 2nd digit. Oscar Cassidy MD Hand X-Ray 02/25/17 0000 Signed Impressions: Service Date/Time: February 18:59 - CONCLUSION: No gross bony abnormality. Oscar Cassidy MD Lower Extremity Ultrasound 02/24/17 0000 Signed Impressions: Service Date/Time: Friday, February 24, 2017 13:41 - CONCLUSION: Negative for deep venous thrombosis. Isaac Stevenson MD FACR Head CT 02/24/17 0000 Signed Impressions: Service Date/Time: Friday, February 24, 2017 16:08 - CONCLUSION: 1. No acute intracranial abnormality. 2. Probable large mucocele in the sphenoid sinus. Ty Hankins MD Abdomen/Pelvis CT 02/24/17 0000 Signed Impressions: Service Date/Time: Friday, February 24, 2017 16:16 - CONCLUSION: 1. Marked gaseous distension of large and small bowel most suggestive of ileus. 2. There is no free air. 3. 2.2 cm left adrenal mass. 4. Distended bladder. Isaac Stevenson MD FACR Laboratory Test 03/07/17 03/07/17 03/08/17 17:15 20:18 04:32 White Blood Count 13.3 TH/MM3 15.1 TH/MM3 Red Blood Count 2.41 MIL/MM3 2.84 MIL/MM3 Hemoglobin 6.9 GM/DL 8.3 GM/DL Hematocrit 21.1 % 24.5 % Mean Corpuscular Volume 87.5 FL 86.2 FL Mean Corpuscular Hemoglobin 28.6 PG 29.1 PG Mean Corpuscular Hemoglobin 32.7 % 33.8 % Concent Red Cell Distribution Width 15.0 % 14.3 % Platelet Count 246 TH/MM3 240 TH/MM3 Mean Platelet Volume 10.3 FL 10.4 FL Neutrophils (%) (Auto) 85.6 % 84.2 % Lymphocytes (%) (Auto) 8.3 % 10.1 % Monocytes (%) (Auto) 5.3 % 5.0 % Eosinophils (%) (Auto) 0.4 % 0.3 % Basophils (%) (Auto) 0.4 % 0.4 % Neutrophils # (Auto) 11.4 TH/MM3 12.8 TH/MM3 Lymphocytes # (Auto) 1.1 TH/MM3 1.5 TH/MM3 Monocytes # (Auto) 0.7 TH/MM3 0.8 TH/MM3 Eosinophils # (Auto) 0.1 TH/MM3 0.0 TH/MM3 Basophils # (Auto) 0.1 TH/MM3 0.1 TH/MM3 CBC Comment DIFF FINAL DIFF FINAL Differential Comment Reticulocyte Count 0.8 % Absolute Reticulocyte Count 18.9 MIL/L Blood Type B NEGATIVE Antibody Screen NEGATIVE Crossmatch Leukocyte-Reduced Red Blood Cells Blood Bank Comment Sodium Level 150 MEQ/L Potassium Level 4.0 MEQ/L Chloride Level 114 MEQ/L Carbon Dioxide Level 30.0 MEQ/L Anion Gap 6 MEQ/L Blood Urea Nitrogen 59 MG/DL Creatinine 2.22 MG/DL Estimat Glomerular Filtration 30 ML/MIN Rate Random Glucose 95 MG/DL Calcium Level 9.7 MG/DL Phosphorus Level 4.7 MG/DL Magnesium Level 2.3 MG/DL Albumin 1.1 GM/DL Date/Time Procedure Status Source Growth 03/04/17 17:25 Gram Stain - Final Complete Wound Other 03/04/17 17:25 Wound Culture - Final Complete Wound Other NO GROWTH IN 72 HRS.--AEROBICALLY OR ... 03/04/17 17: Fungal Smear - Final Resulted Wound Other NO FUNGAL ELEMENTS SEEN. 03/04/17 17: Fungal Culture Resulted Wound Other Pending 03/04/17: Acid Fast Stain - Final Resulted Wound Other NO ACID FAST BACILLI SEEN 03/04/17 17: Mycobacterial Culture Resulted Wound Other Pending Physical Examination HEENT: Normocephalic; atraumatic; no jaundice. CHEST: CTA, diminished. CARDIAC: RRR. ABDOMEN: Soft, nondistended, nontender; no hepatosplenomegaly; bowel sounds are present in all four quadrants. EXTREMITIES: No clubbing, cyanosis, or edema. SKIN: Drsg to bilateral hands d/i, drsg to right ankle ORIF. CONTRACT LOADER: Lethargic, confused. (Delia Zimmerman) Assessment and Plan Plan ASSESSMENT: - Anemia with drop in Hgb. HH on admission (02/24/17) was 13.0/39.1. This has gradually been trending down with a drop from 7.8/23.9 to 6.5/20.4 on 03/07. He was transfused one unit of PRBC and his HH is currently 8.3/24.5. - Constipation. There are no bowel movement's documented in the EMR. He is on a bowel regimen of colace, dulcolax suppository prn (has not been given), lactulose daily, He is not having any nausea or vomiting. - Hep C antibodies. Will get genotype and viral load - Dysphagia, Malnutrition. Asking to for food and water. Will get ST to evaluate patient for swallow evaluation. ? need for peg. - THADDEUS with electrolyte abnormalities. Renal following, feels this is most likely ATN. - Acute encephalopathy, likely multifactorial- dt's, sepsis. confused, but does follow commands. - Sepsis, bacteremia, septic joint. S/P removal of hardware from previous right ankle ORIF (03/08/17) and is being treated with Daptomycin and Rifampin, per Infectious Disease's recommendation. - HTN per attending. PLAN: - TF as tolerated - ST for swallow evaluation - KUB today - Golytely today for severe constipation - Monitor HH - Transfuse as necessary - Hemoccult stool - Will await results of swallow evaluation to see if patient needs PEG - Likely will need EGD +/- Colonoscopy, will await hemoccult, results of KUB/ Golytely, and swallow evaluation before determining the timing - Supportive care - Further recommendations to follow based on results of above - Pt seen and examined by Dr. Whitney and myself and this note is written on his behalf (Delia Zimmerman) Physician Comments Patient seen and examined Agree with above Continue with current supportive care Monitor labs (Reese Whitney MD) Delia Zimmerman Mar 08, 2017 10:04 Reese Whitney MD Mar 08, 2017 22:22
[2017-03-08] MEDS: RIFAMPIN 150 MG CAP PO SCH ×2 (10:12→22:39)
[2017-03-08] MEDS: THIAMINE HCL 100 MG TAB PO SCH (10:12)
[2017-03-08] MEDS: CARVEDILOL 6.25 MG TAB PO SCH ×2 (10:12→22:40)
[2017-03-08] MEDS: DOCUSATE SODIUM 100 MG/10 ML UDC PO SCH ×2 (10:12→22:40)
[2017-03-08] MEDS: MULTIVITAMIN TAB PO SCH (10:12)
[2017-03-08] MEDS: MUPIROCIN 2% OINT 1 APPLIC/GM SYR NASAL SCH ×2 (10:13→21:00)
[2017-03-08] MEDS ORDERED: PEG (High)/E-LYTE SOLN 4000 ML BTL PO ONE (11:00)
--- NOTE | 2017-03-08 11:13 | RADRPT ---
EXAM DATE/TIME: 03/08/2017 10:30 [facility] COMPARISON: CHEST SINGLE AP, March 02, 2017, 13:26. INDICATIONS : Constipation. MEDICAL HISTORY : Hypertension. Hepatitis. SURGICAL HISTORY : None. Right ankle ORIF. ENCOUNTER: Initial ACUITY: 2 days PAIN SCORE: 7/10 LOCATION: Right lower extremity FINDINGS: Supine view of the abdomen was performed. The abdominal bowel gas pattern is normal. No abnormal ma sses, calcifications, or organomegaly is seen. The osseous structures are unremarkable. Minimal par enchymal changes persist left base. CONCLUSION: Nonspecific, negative for obstruction or ileus. Isaac Stevenson MD FACR on March 08, 2017 at 11:10 Board Certified Radiologist. This report was verified electronically.
[2017-03-08] MEDS ORDERED: PHENYLEPH/NS 1000 MCG/10 ML SYR IV ONE (12:00)
[2017-03-08] MEDS: DAPTOMYCIN IV SCH (12:00)
[2017-03-08] MEDS ORDERED: PROPOFOL 200 MG/20 ML AMP IV ONE (12:00)
[2017-03-08] MEDS: SODIUM CHLORIDE 0.9% IV SCH (12:00)
[2017-03-08] MEDS ORDERED: NEOSTIGMINE 3 MG/3 ML SYR IV ONE (12:00)
[2017-03-08] MEDS ORDERED: LACTATED RINGER'S 1000 ML INJ 1,000 ML IV ONE (12:00)
[2017-03-08] MEDS ORDERED: ePHEDrine/NS 25 MG/5 ML SYR IV ONE (12:00)
[2017-03-08] MEDS ORDERED: ONDANSETRON HCL 4 MG/2 ML VIAL IV PUSH ONE (12:00)
[2017-03-08] MEDS ORDERED: MUPIROCIN 2% OINT 22 GM TUBE ONE (12:10)
[2017-03-08] MEDS ORDERED: LIDOCAINE HCL 2% 50 ML VIAL ONE (12:13)
[2017-03-08] MEDS ORDERED: BUPIVACAINE HCL PF 0.5% 30 ML VIAL ONE (12:17)
[2017-03-08] MEDS ORDERED: FAMOTIDINE 20 MG/2 ML VIAL ONE (13:17)
[2017-03-08] MEDS ORDERED: VANCOMYCIN HCL 1000 MG VIAL ONE ×2 (14:07→14:42)
[2017-03-08] MEDS ORDERED: SODIUM CHLORIDE 0.9% 20 ML VIAL ONE ×2 (14:07→14:42)
--- NOTE | 2017-03-08 15:37 | HHI.PR ---
Addendum to Inpatient Note Addendum Reason: Additional Documentation Additional Information D/w and CM: Will need watermelon inspector IV antibiotics. Gone to OR today will attempt to see him in am. Continue same antibiotic plan. If any change in clinical condition call me sooner through call center. Sunshine Keene MD Mar 08, 2017 15:37
--- NOTE | 2017-03-08 15:38 | PD.OP ---
Operative Report Preoperative Diagnosis: (1) Infectious tenosynovitis of right wrist extensor (2) septic arthritis metacarpophalangeal joint right index finger Postoperative Diagnosis: (1) Infectious tenosynovitis of right wrist extensor (2) septic arthritis metacarpophalangeal joint right index finger Procedure: exploration, wash, excisional debridement skin, subcutaneous tissue, extensor tenosynovitis right wrist and hand Anesthesia: general Surgeon: Roque Bullock Field Services Analyst(s): dhara Operation and Findings: necrotic tissue, minimal purulence, extensor tenosynovitis right wrist/hand Roque Bullock MD Mar 08, 2017 15:38
[2017-03-08] MEDS ORDERED: DO NOT ADM ANY ANTICOAGULANT DRUGS PRN (15:40)
[2017-03-08] MEDS ORDERED: fentaNYL CITRATE 250 MCG/5 ML AMP ONE (15:51)
--- NOTE | 2017-03-08 17:12 | HHI.NPPN ---
Subjective History of Present Illness 61 year old male with past medical history of hypertension, history of being homeless. He was admitted on February 25 with altered mental status and leukocytosis. I was called to see the patient because of elevated BUN and creatinine. Additional Remarks Patient is alert, still confused, not in distress, seen after came back from OR. Objective Data Data 03/07/17 03/08/17 19:00 07:00 Intake Total 0 ml 2064 ml Output Total 2550 ml 1750 ml Balance -2550 ml 314 ml Intake Oral 0 ml 0 ml IV Total 1135 ml Tube Feeding 522 ml Packed Cells 347 ml Tube Irrigant 60 ml Output Urine Total 2550 ml 1750 ml # Bowel Movements 0 Vital Signs Date Time Temp Pulse Resp B/P Pulse Ox O2 Delivery O2 Flow Rate FiO2 03/08/17 12:03 98.2 74 18 118/57 96 03/08/17 08:03 97.5 78 18 119/58 96 03/08/17 08:00 94 Room Air 03/08/17 08:00 73 03/08/17 04:00 98.8 92 20 126/71 95 03/08/17 04:00 Room Air 03/08/17 00:42 98.0 84 20 112/55 100 03/08/17 00:42 Room Air 03/08/17 00:23 Room Air 03/08/17 00:23 98.4 89 22 109/53 97 03/08/17 00:00 97.6 88 20 118/58 96 03/07/17 21:41 96 21 03/07/17 20:32 93 03/07/17 20:00 97.8 93 20 132/95 95 03/07/17 20:00 Room Air -: 03/08/17 0432 03/08/17 0432 Microbiology 03/08/17 Gram Stain, Received Pending 03/08/17 Wound Culture, Received Pending 03/08/17 Acid Fast Stain, Received Pending 03/08/17 Mycobacterial Culture, Received Pending 03/08/17 Fungal Smear, Received Pending 03/08/17 Fungal Culture, Received Pending Physical Exam General Appearance: No Acute Distress, Anxious Eyes Eye Exam: Pupils Equal Throat Throat Exam: Oral Mucosa [place] & Moist Neck Neck Exam: Neck Supple Pulmonary Resp Exam: Breath Sounds Equal, No Distress, Rhonchi, Decreased Bases Cardiology CV Exam: Regular, Normal Sinus Rhythm Gastrointestinal/Abdomen GI Exam: Soft, Non-Tender, Bowel Sounds Present Extremeties Extremities Exam: Trace Edema Neurologic Neuro Exam: Alert, Awake, Oriented Psychiatric Psych Exam: Appropriate Responses Assessment/Plan Assessment Summary: THADDEUS/Acute Renal Failure Problem List: (1) Encephalopathy (2) Essential hypertension (3) Hepatitis C, chronic (4) Abscess of right hand including fingers (5) Abscess of left hand including fingers (6) Alcoholism (7) CHF (congestive heart failure) (8) Sepsis (9) ARF (acute renal failure) Plan Patient has been non oliguric. Urine Eosinophils negative. Urine Na. is normal. Most likely has ATN. Continue gentle hydration and antibiotics. Avoid Nephrotoxins. Creatinine is stable and Na. is better, 150. on Hypotonic fluid with Kcl. Post debridement. Hgb. is better after transfusion. Problem Qualifiers (1) Sepsis: Qualified Code: A41.9 - Sepsis, due to unspecified organism Diane Barker MD Mar 08, 2017 17:12
--- NOTE | 2017-03-08 17:28 | HHI.PR ---
Subjective Remarks Follow up for MRSA bacteremia/septic joints, anemia, malnutrition. The patient is seen s/p surgery today, very groggy, oriented to person, place, but states the date is October 1916. He is hungry and wants to eat. Complains of pain mostly at the right hand/wrist, requesting pain medications. Denies fevers/chills. Denies any chest pain, shortness of breath, or abdominal complaints. He has no other medical complaints at this time. Objective Vitals Vital Signs Date Time Temp Pulse Resp B/P Pulse Ox O2 Delivery O2 Flow Rate FiO2 03/08/17 12:03 98.2 74 18 118/57 96 03/08/17 08:03 97.5 78 18 119/58 96 03/08/17 08:00 94 Room Air 03/08/17 08:00 73 03/08/17 04:00 98.8 92 20 126/71 95 03/08/17 04:00 Room Air 03/08/17 00:42 98.0 84 20 112/55 100 03/08/17 00:42 Room Air 03/08/17 00:23 Room Air 03/08/17 00:23 98.4 89 22 109/53 97 03/08/17 00:00 97.6 88 20 118/58 96 03/07/17 21:41 96 21 03/07/17 20:32 93 03/07/17 20:00 97.8 93 20 132/95 95 03/07/17 20:00 Room Air I/O 03/07/17 03/07/17 03/07/17 03/08/17 03/08/17 03/08/17 06:59 14:59 22:59 06:59 14:59 22:59 Intake Total 1208 ml 0 ml 1459 ml 605 ml Output Total 1300 ml 2550 ml 0 ml 1750 ml Balance -92 ml -2550 ml 1459 ml -1145 ml Intake Oral 0 ml 0 ml 0 ml 0 ml IV Total 433 ml 877 ml 258 ml Tube Feeding 455 ml 522 ml Packed Cells 347 ml Tube Irrigant 60 ml Other 320 ml Output Urine Total 1300 ml 2550 ml 0 ml 1750 ml # Bowel Movements 0 0 Result Diagram: 03/08/17 0432 03/08/17 0432 Imaging Last Impressions Abdomen X-Ray 03/08/17 0000 Signed Impressions: Service Date/Time: Wednesday, March 08, 2017 10:30 - CONCLUSION: Nonspecific, negative for obstruction or ileus. Isaac Stevenson MD FACR Chest X-Ray 03/02/17 0000 Signed Impressions: Service Date/Time: Thursday, March 02, 2017 13:26 - CONCLUSION: Interval develop of a small left-sided pleural effusion. Pulmonary venous congestion. Edenilson Oviedo MD Lower Extremity CT 03/01/17 0000 Signed Impressions: Service Date/Time: Wednesday, March 01, 2017 11:12 - CONCLUSION: 1. No evidence of organized fluid collections to suggest an abscess. 2. Extensive soft tissue swelling surrounding the ankle and extending to the forefoot especially along the lateral aspect. 3. No erosive or destructive bone changes. 4. Bone defects compatible with previous excision device. Blake Rider MD Ankle X-Ray 02/26/17 0000 Signed Impressions: Service Date/Time: Sunday, February 26, 2017 17:15 - CONCLUSION: I see no retained surgical instruments. Isaac Stevenson MD FACR Upper Extremity Ultrasound 02/25/17 1734 Signed Impressions: Service Date/Time: February 17:54 - CONCLUSION: There is a thin fluid collection within the focal area of soft tissue swelling 2nd digit. Oscar Cassidy MD Hand X-Ray 02/25/17 0000 Signed Impressions: Service Date/Time: February 18:59 - CONCLUSION: No gross bony abnormality. Oscar Cassidy MD Lower Extremity Ultrasound 02/24/17 Signed Impressions: Service Date/Time: Friday, February 24, 2017 13:41 - CONCLUSION: Negative for deep venous thrombosis. Isaac Stevenson MD FACR Head CT 02/24/17 0000 Signed Impressions: Service Date/Time: Friday, February 24, 2017 16:08 - CONCLUSION: 1. No acute intracranial abnormality. 2. Probable large mucocele in the sphenoid sinus. yT Hankins MD Abdomen/Pelvis CT 02/24/17 0000 Signed Impressions: Service Date/Time: Friday, February 24, 2017 16:16 - CONCLUSION: 1. Marked gaseous distension of large and small bowel most suggestive of ileus. 2. There is no free air. 3. 2.2 cm left adrenal mass. 4. Distended bladder. Isaac Stevenson MD FACR Objective Remarks GENERAL: Thin cachectic appearing middle aged male patient in NAD. SKIN: Warm and dry. HEENT: Normocephalic. Atraumatic. Pupils equal and round. Mucous membranes slightly dry. CARDIOVASCULAR: Regular rate and rhythm. S1, S2 noted. No murmur appreciated. RESPIRATORY: No accessory muscle use. Clear to auscultation. Breath sounds equal bilaterally. GASTROINTESTINAL: Scaphoid abdomen, soft, non-tender, nondistended. Normoactive bowel sounds x4. NG tube in place. MUSCULOSKELETAL: RLE wrapped in dressing/FRANCISCO, CDI, with distal edema. RUE wrapped in bulky surgical dressing, CDI, with distal edema, normal capillary refill. Left hand/wrist wrapped in dressing, CDI. NEUROLOGICAL: Awake and alert, oriented to person/place only. No obvious cranial nerve deficits. Moves all extremities spontaneously, too groggy to follow strength testing commands. Normal speech. Procedures 03/08/17 - Dr. Bullock- exploration, wash, excisional debridement skin, subcutaneous tissue, extensor tenosynovitis right wrist and hand. Findings: necrotic tissue, minimal purulence, extensor tenosynovitis right wrist/hand 03/04/17 - Dr Gamez - Right leg and incision and drainage. Right foot delayed primary closure x3 03/04/17 - Dr. Bullock - Extensor tenosynovectomy second, third, fourth extensor compartments right wrist and excisional debridement wash index finger metacarpal phalangeal joint, excisional wash and excisional debridement left hand. 02/28/17 - Dr. Reyes - Right ankle wound debridement and washout. Implantation of antibiotic vancomycin beads. 02/28/17 - Dr. Bullock - Exploration, wash, excisional debridement index finger metacarpophalangeal joint right hand; Exploration, wash, excisional debridement metacarpophalangeal joint left index finger; Exploration, wash, excisional debridement extensor pollicis longus tendon right thumb and hand. 02/26/17 - Dr. Reyes - Right ankle incision and drainage, arthrotomy, removal infected hardware, bone biopsy. 02/26/17 - Dr. Bullock - Exploration, incision and drainage right hand abscess, Arthrotomy wash metacarpal phalangeal joint right index finger, Arthrotomy wash metacarpal phalangeal joint left index finger. Medications and IVs Current Medications Medications (Trade) Dose Ordered Sig/Kayla Route Start Time Stop Time Status Last Admin (NS Flush) 2 ml UNSCH PRN IV FLUSH 02/24/17 13:45 02/24/17 13:38 (Zofran Inj) 4 mg Q8HR PRN IV PUSH 02/24/17 18:00 (Vitamin B1) 100 mg DAILY PO 02/25/17 09:00 03/08/17 10:12 (Romazicon Inj) 0.2 mg Q1M PRN IV PUSH 02/25/17 09:15 (Ativan) 1 mg Q4H PRN PO 02/25/17 09:15 03/04/17 09:13 (Ativan Inj) 1 mg Q4H PRN IV PUSH 02/25/17 09:15 03/05/17 02:41 (Theragran) 1 tab DAILY PO 02/26/17 09:00 03/08/17 10:12 (Tylenol) 650 mg Q4H PRN PO 02/25/17 09:15 03/07/17 04:47 (Prinivil) 10 mg DAILY PO 02/26/17 09:00 Hold Enoxaparin Sodium 40 mg 40 mg Q24H SQ 02/25/17 10:00 03/07/17 10:00 (Precedex Inj/NS Inj) 52 ml @ 0 mls/hr TITRATE IV 02/25/17 17:30 02/27/17 13:55 (Ofirmev Inj) 650 mg Q6H PRN IV 02/25/17 21:00 03/06/17 20:12 (Trandate Inj) 10 mg Q6H PRN IV PUSH 02/25/17 23:15 (Protonix Inj) 40 mg Q24H IV PUSH 02/26/17 00:00 03/07/17 22:35 Miscellaneous Information Patient in critical care unit? Ass... Q361D .XX 02/26/17 07:15 (Bactroban Nasal 2% Oint) 1 applic BID NASAL 02/26/17 09:00 03/08/17 10:13 (Catapres) 0.3 mg Q8HR PO 02/26/17 22:11 03/08/17 06:08 (Roxicodone) 5 mg Q4H PRN PO 02/28/17 07:45 03/02/17 01:58 (Dilaudid Pf Inj) 0.5 mg Q3H PRN IV PUSH 02/28/17 07:45 03/08/17 10:14 Rifampin 300 mg 300 mg Q12HR PO 03/02/17 21:00 03/08/17 10:12 (KCl Inj/Sodium Chloride 23.4% Inj/Sterile Water For Inj) 1,010 ml @ 55 mls/hr [id number] IV 03/03/17 11:00 03/08/17 03:48 Carvedilol 6.25 mg 6.25 mg Q12HR PO 03/03/17 21:00 03/08/17 10:12 (Cubicin Inj/NS Inj) 100 ml @ 200 mls/hr Q24H IV 03/06/17 12:00 03/07/17 12:00 (Dulcolax Supp) 10 mg DAILY PRN RECTAL 03/06/17 21:00 (Lactulose Liq) 30 ml DAILY PRN NG 03/06/17 21:00 03/07/17 18:45 (Colace Liq) 100 mg Q12HR PO 03/06/17 21:15 03/08/17 10:12 Miscellaneous Information ALL NURSING DEPARTME... UNSCH PRN .XX 03/08/17 15:40 03/09/17 15:39 A/P Problem List: (1) Sepsis ICD Code: A41.9 Status: Acute (2) Right foot infection ICD Code: L08.9 Status: Acute (3) Encephalopathy ICD Code: G93.40 Status: Acute (4) Alcoholism ICD Code: F10.20 Status: Acute Assessment and Plan 61-year-old male with history of right foot hardware, HTN, alcohol abuse, Hepatitis C, admitted with sepsis, MRSA bacteremia and septic joints, course complicated by severe agitated delirium and etoh withdrawal, improving. Sepsis with MRSA Bacteremia and Septic Joints: wound cultures from index fingers and right ankle with MRSA. Blood cultures also +MRSA. -S/p multiple surgeries with podiatry Dr. Reyes/Dr. Gamez on 02/26, 02/28, , and hand surgeon Dr. Bullock on 02/26, 02/28, 03/04, 03/08. -Echo 02/28 negative for vegetation -Infectious disease consulted -Continue on antibiotics with IV Dapto and oral Rifampin -Per ID, will need prison IV abx plus oral Rimfampin for 6 weeks followed by oral suppression, recommends SNF placement for concern for noncompliance -continue pain control with oxycodone prn and IV dilaudid prn Anemia: Hgb trended down to 6.5 on 03/07. -s/p 1u pRBC transfusion on 03/07, Repeat CBC with Hgb 8.3. -Iron studies consistent with chronic anemia. -Check stool hemoccult -Continue to monitor. -Consult GI for further evaluation Acute Toxic/Metabolic Encephalopathy secondary to Sepsis and Acute Alcohol Withdrawal: admitted in ICU. -initially admitted to ICU with encephalopathy, severe agitation -symptoms improving -monitor neuro checks Moderate Protein Calorie Malnutrition: Albumin 0.9. BMI 19. Currently has NG tube. -consult ST -GI consulted, ? need for PEG -consulted buckle coverer Hypernatremia: Na 152, slight worsening -nephrology consulted -continue to monitor, currently stable at 150 -continue free water flushes Hypertension: BP much better controlled. -continue clonidine 0.3mg tid and coreg 6.25mg bid -monitor BP, adjust antihypertensives as needed Mild Systolic CHF: Echo 02/28 with EF 40-45% and global hypokinesis -Cardiology consulted, recommends continued medical management -Continue BB, unable to have ACEi with renal insufficiency -per cardiology, start ACEi once renal function stabilized THADDEUS: Cr increased to 2, previously 0.86 on 02/28/17. -Nephrology following, likely has ATN -Continue gentle hydration -avoid nephrotoxins -monitor renal function Hepatitis C: antibody positive -GI consulted, appreciate recommendations DVT Prophylaxis: Lovenox GI Prophylaxis: Protonix Discussed with RN and CENTRAL CONTROL ROOM OPERATOR at bedside. Discussed with Dr. Velasquez. Discharge Planning Needs lobsterman IV antibiotics per ID. Will benefit from SNF placement. Case management to assist with discharge planning. Not yet ready for discharge. Problem Qualifiers (1) Sepsis: Qualified Code: A41.9 - Sepsis, due to unspecified organism Beth Hewitt PA-C Mar 08, 2017 17:28
[2017-03-08] MEDS ORDERED: PEG (High)/E-LYTE SOLN 4000 ML BTL NG ONE (20:00)
--- NOTE | 2017-03-08 20:18 | PD.CARD.PN ---
Subjective Subjective Remarks No CP or SOB, tolerated surgery well Objective Medications Current Medications Medications (Trade) Dose Ordered Sig/Kayla Route Start Time Stop Time Status Last Admin (NS Flush) 2 ml UNSCH PRN IV FLUSH 02/24/17 13:45 02/24/17 13:38 (Zofran Inj) 4 mg Q8HR PRN IV PUSH 02/24/17 18:00 (Vitamin B1) 100 mg DAILY PO 02/25/17 09:00 03/08/17 10:12 (Romazicon Inj) 0.2 mg Q1M PRN IV PUSH 02/25/17 09:15 (Ativan) 1 mg Q4H PRN PO 02/25/17 09:15 03/04/17 09:13 (Ativan Inj) 1 mg Q4H PRN IV PUSH 02/25/17 09:15 03/05/17 02:41 (Theragran) 1 tab DAILY PO 02/26/17 09:00 03/08/17 10:12 (Tylenol) 650 mg Q4H PRN PO 02/25/17 09:15 03/07/17 04:47 (Prinivil) 10 mg DAILY PO 02/26/17 09:00 Hold Enoxaparin Sodium 40 mg 40 mg Q24H SQ 02/25/17 10:00 Hold 03/07/17 10:00 (Precedex Inj/NS Inj) 52 ml @ 0 mls/hr TITRATE IV 02/25/17 17:30 02/27/17 13:55 (Ofirmev Inj) 650 mg Q6H PRN IV 02/25/17 21:00 03/06/17 20:12 (Trandate Inj) 10 mg Q6H PRN IV PUSH 02/25/17 23:15 (Protonix Inj) 40 mg Q24H IV PUSH 02/26/17 00:00 03/07/17 22:35 Miscellaneous Information Patient in critical care unit? Ass... Q361D .XX 02/26/17 07:15 (Bactroban Nasal 2% Oint) 1 applic BID NASAL 02/26/17 09:00 03/08/17 10:13 (Catapres) 0.3 mg Q8HR PO 02/26/17 22:11 03/08/17 06:08 (Roxicodone) 5 mg Q4H PRN PO 02/28/17 07:45 03/02/17 01:58 (Dilaudid Pf Inj) 0.5 mg Q3H PRN IV PUSH 02/28/17 07:45 03/08/17 10:14 Rifampin 300 mg 300 mg Q12HR PO 03/02/17 21:00 03/08/17 10:12 (KCl Inj/Sodium Chloride 23.4% Inj/Sterile Water For Inj) 1,010 ml @ 55 mls/hr [id number] IV 03/03/17 11:00 03/08/17 03:48 Carvedilol 6.25 mg 6.25 mg Q12HR PO 03/03/17 21:00 03/08/17 10:12 (Cubicin Inj/NS Inj) 100 ml @ 200 mls/hr Q24H IV 03/06/17 12:00 03/07/17 12:00 (Dulcolax Supp) 10 mg DAILY PRN RECTAL 03/06/17 21:00 (Lactulose Liq) 30 ml DAILY PRN NG 03/06/17 21:00 03/07/17 18:45 (Colace Liq) 100 mg Q12HR PO 03/06/17 21:15 03/08/17 10:12 Miscellaneous Information ALL NURSING DEPARTME... UNSCH PRN .XX 03/08/17 15:40 03/09/17 15:39 Vital Signs / I&O Vital Signs Date Time Temp Pulse Resp B/P Pulse Ox O2 Delivery O2 Flow Rate FiO2 03/08/17 20:00 97.6 81 20 143/69 95 03/08/17 17:00 97.3 66 20 129/62 100 03/08/17 16:40 69 16 125/62 99 Nasal Cannula 2 03/08/17 16:30 70 16 128/61 99 Nasal Cannula 2 03/08/17 16:15 68 16 112/61 98 Nasal Cannula 2 03/08/17 16:00 69 16 128/62 98 Nasal Cannula 4 03/08/17 15:40 97.5 75 16 120/60 92 Nasal Cannula 4 03/08/17 12:03 98.2 74 18 118/57 96 03/08/17 08:03 97.5 78 18 119/58 96 03/08/17 08:00 94 Room Air 03/08/17 08:00 73 03/08/17 04:00 98.8 92 20 126/71 95 03/08/17 04:00 Room Air 03/08/17 00:42 98.0 84 20 112/55 100 03/08/17 00:42 Room Air 03/08/17 00:23 Room Air 03/08/17 00:23 98.4 89 22 109/53 97 03/08/17 00:00 97.6 88 20 118/58 96 03/07/17 21:41 96 21 03/07/17 20:32 93 I/O 03/07/17 03/07/17 03/07/17 03/08/17 03/08/17 03/08/17 06:59 14:59 22:59 06:59 14:59 22:59 Intake Total 1208 ml 0 ml 1459 ml 605 ml 500 ml Output Total 1300 ml 2550 ml 0 ml 1750 ml 1650 ml 555 ml Balance -92 ml -2550 ml 1459 ml -1145 ml -1650 ml -55 ml Intake Oral 0 ml 0 ml 0 ml 0 ml IV Total 433 ml 877 ml 258 ml 250 ml Tube Feeding 455 ml 522 ml Packed Cells 347 ml Tube Irrigant 60 ml Other 320 ml 250 ml Output Urine Total 1300 ml 2550 ml 0 ml 1750 ml 1650 ml 550 ml Estimated Blood Loss 5 ml # Bowel Movements 0 0 0 Physical Exam GENERAL: In NAD SKIN: Warm and dry. HEAD: Normocephalic. EYES: No scleral icterus. No injection or drainage. NECK: Supple, trachea midline. No JVD or lymphadenopathy. CARDIOVASCULAR: Regular rate and rhythm without murmurs, gallops, or rubs. RESPIRATORY: Breath sounds equal bilaterally. No accessory muscle use. GASTROINTESTINAL: Abdomen soft, non-tender, nondistended. MUSCULOSKELETAL: No cyanosis, or edema. Laboratory Laboratory Tests Test 03/07/17 03/08/17 20:18 04:32 Blood Type B NEGATIVE Antibody Screen NEGATIVE Crossmatch Leukocyte-Reduced Red Blood Cells Blood Bank Comment White Blood Count 15.1 TH/MM3 Red Blood Count 2.84 MIL/MM3 Hemoglobin 8.3 GM/DL Hematocrit 24.5 % Mean Corpuscular Volume 86.2 FL Mean Corpuscular Hemoglobin 29.1 PG Mean Corpuscular Hemoglobin 33.8 % Concent Red Cell Distribution Width 14.3 % Platelet Count 240 TH/MM3 Mean Platelet Volume 10.4 FL Neutrophils (%) (Auto) 84.2 % Lymphocytes (%) (Auto) 10.1 % Monocytes (%) (Auto) 5.0 % Eosinophils (%) (Auto) 0.3 % Basophils (%) (Auto) 0.4 % Neutrophils # (Auto) 12.8 TH/MM3 Lymphocytes # (Auto) 1.5 TH/MM3 Monocytes # (Auto) 0.8 TH/MM3 Eosinophils # (Auto) 0.0 TH/MM3 Basophils # (Auto) 0.1 TH/MM3 CBC Comment DIFF FINAL Differential Comment Sodium Level 150 MEQ/L Potassium Level 4.0 MEQ/L Chloride Level 114 MEQ/L Carbon Dioxide Level 30.0 MEQ/L Anion Gap 6 MEQ/L Blood Urea Nitrogen 59 MG/DL Creatinine 2.22 MG/DL Estimat Glomerular Filtration 30 ML/MIN Rate Random Glucose 95 MG/DL Calcium Level 9.7 MG/DL Phosphorus Level 4.7 MG/DL Magnesium Level 2.3 MG/DL Albumin 1.1 GM/DL Imaging Last Impressions Abdomen X-Ray 03/08/17 0000 Signed Impressions: Service Date/Time: Wednesday, March 08, 2017 10:30 - CONCLUSION: Nonspecific, negative for obstruction or ileus. Isaac Stevenson MD FACR Chest X-Ray 03/02/17 0000 Signed Impressions: Service Date/Time: Thursday, March 02, 2017 13:26 - CONCLUSION: Interval develop of a small left-sided pleural effusion. Pulmonary venous congestion. Edenilson Oviedo MD Lower Extremity CT 03/01/17 0000 Signed Impressions: Service Date/Time: Wednesday, March 01, 2017 11:12 - CONCLUSION: 1. No evidence of organized fluid collections to suggest an abscess. 2. Extensive soft tissue swelling surrounding the ankle and extending to the forefoot especially along the lateral aspect. 3. No erosive or destructive bone changes. 4. Bone defects compatible with previous excision device. Blake Rider MD Ankle X-Ray 02/26/17 0000 Signed Impressions: Service Date/Time: Sunday, February 26, 2017 17:15 - CONCLUSION: I see no retained surgical instruments. Isaac Stevenson MD FACR Upper Extremity Ultrasound 02/25/17 [id number] Signed Impressions: Service Date/Time: February 17:54 - CONCLUSION: There is a thin fluid collection within the focal area of soft tissue swelling 2nd digit. Oscar Cassidy MD Hand X-Ray 02/25/17 0000 Signed Impressions: Service Date/Time: February 18:59 - CONCLUSION: No gross bony abnormality. Oscar Cassidy MD Lower Extremity Ultrasound 02/24/17 0000 Signed Impressions: Service Date/Time: Friday, February 24, 2017 13:41 - CONCLUSION: Negative for deep venous thrombosis. Isaac Stevenson MD FACR Head CT 02/24/17 0000 Signed Impressions: Service Date/Time: Friday, February 24, 2017 16:08 - CONCLUSION: 1. No acute intracranial abnormality. 2. Probable large mucocele in the sphenoid sinus. Ty Hankins MD Abdomen/Pelvis CT 02/24/17 0000 Signed Impressions: Service Date/Time: Friday, February 24, 2017 16:16 - CONCLUSION: 1. Marked gaseous distension of large and small bowel most suggestive of ileus. 2. There is no free air. 3. 2.2 cm left adrenal mass. 4. Distended bladder. Isaac Stevenson MD FACR Assessment and Plan Problem List: (1) CHF (congestive heart failure) (2) Cardiomyopathy (3) ARF (acute renal failure) (4) Alcoholism (5) Tobacco use disorder (6) Sepsis Assessment and Plan Tolerated surgery well. Continue tx for CHF including carvedilol. Continue monitoring on tele. Increase activity, PT. Start low dose lisinopril, monitor renal fx. Problem Qualifiers (1) Sepsis: Qualified Code: A41.9 - Sepsis, due to unspecified organism Raquel Escobar MD Mar 08, 2017 20:18
[2017-03-08] MEDS ORDERED: PILL SPLITTER OTHER PRN (21:15)
[2017-03-09] VITALS (7 sets, daily range): BP systolic 125–167; BP diastolic 62–86; PULSE 72–103; RESP 18–24; TEMP 97.2–98.8; O2SAT 94–98
[2017-03-09] MEDS: PANTOPRAZOLE SODIUM 40 MG VIAL IV PUSH SCH (02:20)
[2017-03-09] MEDS: POTASSIUM CHLORIDE INJ 20 MEQ, SODIUM CHLORIDE 23.4% INJ 38.5 MEQ in WATER STERILE FOR ... IV SCH ×2 (05:34→22:51)
[2017-03-09] MEDS: cloNIDine HCL 0.3 MG TAB PO SCH ×3 (05:37→22:18)
[2017-03-09 08:19] LABS: AUTOMATED NEUTROPHIL # 10.8 TH/MM3 (1.8-7.7); BASOPHIL % 0.2 % (0.0-2.0); EOSINOPHIL # 0.1 TH/MM3 (0-0.4); EOSINOPHIL % 0.8 % (0.0-4.0); HEMATOCRIT 25.6 % (39.0-51.0); HEMO FLAGS DIFF FINAL; LYMPH % 8.8 % (9.0-44.0); LYMPHOCYTE # 1.1 TH/MM3 (1.0-4.8); MEAN CELL VOLUME 88.1 FL (80.0-100.0); MEAN CORPUSCULAR HEMOGLOBIN 28.7 PG (27.0-34.0); MEAN CORPUSCULAR HGB CONC 32.6 % (32.0-36.0); MONO % 4.2 % (0.0-8.0); PLATELET COUNT 265 TH/MM3 (150-450); RED CELL DISTRIBUTION WIDTH 14.6 % (11.6-17.2); WHITE BLOOD COUNT 12.6 TH/MM3 (4.0-11.0)
[2017-03-09 08:44] LABS: ANION GAP 7 MEQ/L (5-15); AST (GOT) 43 U/L (15-37); BICARBONATE 31.1 MEQ/L (21.0-32.0); BLOOD UREA NITROGEN 55 MG/DL (7-18); CHLORIDE 112 MEQ/L (98-107); POTASSIUM 3.8 MEQ/L (3.5-5.1); SODIUM (NA) 150 MEQ/L (136-145)
[2017-03-09 08:48] LABS: ALKALINE PHOSPHATASE 81 U/L (45-117); ALT (GPT) 21 U/L (12-78); CREATINE KINASE 167 U/L (39-308); GLOMERULAR FILTRATION RATE 31 ML/MIN (>89); TOTAL BILIRUBIN ADULT 0.4 MG/DL (0.2-1.0)
[2017-03-09] MEDS: THIAMINE HCL 100 MG TAB PO SCH (09:30)
[2017-03-09] MEDS: MUPIROCIN 2% OINT 1 APPLIC/GM SYR NASAL SCH ×2 (09:30→21:00)
[2017-03-09] MEDS: MULTIVITAMIN TAB PO SCH (09:30)
[2017-03-09] MEDS: DOCUSATE SODIUM 100 MG/10 ML UDC PO SCH (09:30)
[2017-03-09] MEDS: CARVEDILOL 6.25 MG TAB PO SCH ×2 (09:30→22:18)
[2017-03-09] MEDS: RIFAMPIN 150 MG CAP PO SCH ×2 (09:30→22:18)
[2017-03-09] MEDS: LISINOPRIL 5 MG TAB PO SCH (09:31)
[2017-03-09] MEDS: DAPTOMYCIN IV SCH (12:17)
[2017-03-09] MEDS: SODIUM CHLORIDE 0.9% IV SCH (12:17)
--- NOTE | 2017-03-09 12:21 | HHI.GIFU ---
Subjective Remarks Resting in bed. Confused. Speech therapy evaluated patient and recommended Puree with thin liquids. NGT was found pulled out at bedside. Will order diet and consult helmet hat puncher for calorie count. Multiple bowel movements after laxative. (Delia Zimmerman) Objective Vitals I&O Vital Signs Date Time Temp Pulse Resp B/P Pulse Ox O2 Delivery O2 Flow Rate FiO2 03/09/17 12:00 97.3 103 20 167/82 94 03/09/17 11:22 96 03/09/17 08:00 97.2 80 20 125/62 97 03/09/17 07:46 Room Air 21 03/09/17 04:00 97.4 86 21 134/86 95 03/09/17 00:00 97.2 72 18 142/62 94 03/08/17 20:00 97.6 81 20 143/69 95 03/08/17 20:00 Room Air 03/08/17 17:00 97.3 66 20 129/62 100 03/08/17 16:40 69 16 125/62 99 Nasal Cannula 2 03/08/17 16:30 70 16 128/61 99 Nasal Cannula 2 03/08/17 16:15 68 16 112/61 98 Nasal Cannula 2 03/08/17 16:00 69 16 128/62 98 Nasal Cannula 4 03/08/17 15:40 97.5 75 16 120/60 92 Nasal Cannula 4 I/O 03/08/17 03/08/17 03/08/17 03/09/17 03/09/17 03/09/17 06:59 14:59 22:59 06:59 14:59 22:59 Intake Total 605 ml 580 ml 524 ml Output Total 1750 ml 1650 ml 1205 ml 700 ml Balance -1145 ml -1650 ml -625 ml -176 ml Intake Oral 0 ml 80 ml IV Total 258 ml 250 ml 524 ml Packed Cells 347 ml Other 250 ml Output Urine Total 1750 ml 1650 ml 1200 ml 700 ml Estimated Blood Loss 5 ml # Bowel Movements 0 0 3 Laboratory Laboratory Tests Test 03/09/17 06:15 White Blood Count 12.6 Red Blood Count 2.90 Hemoglobin 8.3 Hematocrit 25.6 Mean Corpuscular Volume 88.1 Mean Corpuscular Hemoglobin 28.7 Mean Corpuscular Hemoglobin 32.6 Concent Red Cell Distribution Width 14.6 Platelet Count 265 Mean Platelet Volume 10.0 Neutrophils (%) (Auto) 86.0 Lymphocytes (%) (Auto) 8.8 Monocytes (%) (Auto) 4.2 Eosinophils (%) (Auto) 0.8 Basophils (%) (Auto) 0.2 Neutrophils # (Auto) 10.8 Lymphocytes # (Auto) 1.1 Monocytes # (Auto) 0.5 Eosinophils # (Auto) 0.1 Basophils # (Auto) 0.0 CBC Comment DIFF FINAL Differential Comment Sodium Level 150 Potassium Level 3.8 Chloride Level 112 Carbon Dioxide Level 31.1 Anion Gap 7 Blood Urea Nitrogen 55 Creatinine 2.16 Estimat Glomerular Filtration 31 Rate Random Glucose 89 Calcium Level 9.9 Total Bilirubin 0.4 Aspartate Amino Transf 43 (AST/SGOT) Alanine Aminotransferase 21 (ALT/SGPT) Alkaline Phosphatase 81 Total Creatine Kinase 167 Total Protein 6.4 Albumin 1.1 Date/Time Procedure Status Source Growth 03/08/17 00:00 Gram Stain - Final Resulted Wound Wrist 03/08/17 00:00 Wound Culture - Preliminary Resulted Wound Wrist NO GROWTH IN 24 HOURS. 03/08/17 00:00 Fungal Smear - Final Resulted Wound Wrist NO FUNGAL ELEMENTS SEEN. 03/08/17 00:00 Fungal Culture Resulted Wound Wrist Pending 03/08/17 00:00 Acid Fast Stain Received Wound Wrist Pending 03/08/17 00:00 Mycobacterial Culture Received Wound Wrist Pending 03/04/17 17:25 Acid Fast Stain - Final Resulted Wound Other NO ACID FAST BACILLI SEEN 03/04/17 17:25 Mycobacterial Culture Resulted Wound Other Pending Imaging Last Impressions Abdomen X-Ray 03/08/17 0000 Signed Impressions: Service Date/Time: Wednesday, March 08, 2017 10:30 - CONCLUSION: Nonspecific, negative for obstruction or ileus. Isaac Stevenson MD FACR Chest X-Ray 03/02/17 0000 Signed Impressions: Service Date/Time: Thursday, March 02, 2017 13:26 - CONCLUSION: Interval develop of a small left-sided pleural effusion. Pulmonary venous congestion. Edenilson Oviedo MD Lower Extremity CT 03/01/17 0000 Signed Impressions: Service Date/Time: Wednesday, March 01, 2017 11:12 - CONCLUSION: 1. No evidence of organized fluid collections to suggest an abscess. 2. Extensive soft tissue swelling surrounding the ankle and extending to the forefoot especially along the lateral aspect. 3. No erosive or destructive bone changes. 4. Bone defects compatible with previous excision device. Blake Rider MD Ankle X-Ray 02/26/17 0000 Signed Impressions: Service Date/Time: Sunday, February 26, 2017 17:15 - CONCLUSION: I see no retained surgical instruments. Isaac Stevenson MD FACR Upper Extremity Ultrasound 02/25/17 1734 Signed Impressions: Service Date/Time: February 17:54 - CONCLUSION: There is a thin fluid collection within the focal area of soft tissue swelling 2nd digit. Oscar Cassidy MD Hand X-Ray 02/25/17 0000 Signed Impressions: Service Date/Time: February 18:59 - CONCLUSION: No gross bony abnormality. Oscar Cassidy MD Lower Extremity Ultrasound 02/24/17 0000 Signed Impressions: Service Date/Time: Friday, February 24, 2017 13:41 - CONCLUSION: Negative for deep venous thrombosis. Isaac Stevenson MD FACR Head CT 02/24/17 0000 Signed Impressions: Service Date/Time: Friday, February 24, 2017 16:08 - CONCLUSION: 1. No acute intracranial abnormality. 2. Probable large mucocele in the sphenoid sinus. Ty Hankins MD Abdomen/Pelvis CT 02/24/17 0000 Signed Impressions: Service Date/Time: Friday, February 24, 2017 16:16 - CONCLUSION: 1. Marked gaseous distension of large and small bowel most suggestive of ileus. 2. There is no free air. 3. 2.2 cm left adrenal mass. 4. Distended bladder. Isaac Stevenson MD FACR Physical Exam HEENT: Normocephalic; atraumatic; no jaundice CHEST: CTA CARDIAC: RRR ABDOMEN: Soft, nondistended, nontender; no hepatosplenomegaly; bowel sounds are present in all four quadrants. EXTREMITIES: No clubbing, cyanosis, or edema. SKIN: Drsg to bilateral hands d/i, drsg to right ankle ORIF. HOME ENERGY AUDITOR: Lethargic, confused. (Delia ZimmermanP) Assessment and Plan Plan ASSESSMENT: - Anemia with drop in Hgb. HH on admission (02/24/17) was 13.0/39.1. This has gradually been trending down with a drop from 7.8/23.9 to 6.5/20.4 on 03/07. He was transfused one unit of PRBC and his HH is currently remaining stable at 8.3/25.6 - Constipation. Abdomen X-Ray (03/08/17)---> Nonspecific, negative for obstruction or ileus. S/P Golytely (03/08), (+) multiple bowel movements. - Hep C antibodies. Genotype and viral load pending. - Dysphagia, Malnutrition. Asking to for food and water. NGT found dislodged at bedside. S/P Swallow evaluation by speech therapy, recommend puree diet with thin liquids. Will start diet and initiate calorie count to see if he needs PEG tube. If so, this can be done at time of EGD/Colonoscopy for anemia. - THADDEUS with electrolyte abnormalities. Renal following, feels this is most likely ATN. - Acute encephalopathy, likely multifactorial- dt's, sepsis. confused, but does follow commands. - Sepsis, bacteremia, septic joint. S/P removal of hardware from previous right ankle ORIF (03/08/17) and is being treated with Daptomycin and Rifampin, per Infectious Disease's recommendation. - HTN per attending. PLAN: - Puree diet with thin liquids - Record all meal percentages - Cloud Automation Tester evaluation for calorie count - Monitor HH - Transfuse as necessary - Hemoccult stool - Consider EGD/Colonoscopy after calorie count to see if patient will need PEG tube. If so, these could be done together - Supportive care - Further recommendations to follow based on results of above - Pt seen and examined by Dr. Whitney and myself and this note is written on his behalf (Delia Zimmerman) Physician Comments Patient seen and examined Agree with above Continue current supportive care Monitor labs (Reese Whitney MD) Delia Zimmerman Mar 09, 2017 12:21 Reese Whitney MD Mar 09, 2017 19:11
--- NOTE | 2017-03-09 13:18 | HHI.PR ---
Subjective Remarks Follow up for MRSA bacteremia/septic joints, anemia, malnutrition. Patient is difficult to understand. However, he appears to be upset about something. He uses expletive language. Objective Vitals Vital Signs Date Time Temp Pulse Resp B/P Pulse Ox O2 Delivery O2 Flow Rate FiO2 03/09/17 12:00 97.3 103 20 167/82 94 03/09/17 11:22 96 03/09/17 08:00 97.2 80 20 125/62 97 03/09/17 07:46 Room Air 21 03/09/17 04:00 97.4 86 21 134/86 95 03/09/17 00:00 97.2 72 18 142/62 94 03/08/17 20:00 97.6 81 20 143/69 95 03/08/17 20:00 Room Air 03/08/17 17:00 97.3 66 20 129/62 100 03/08/17 16:40 69 16 125/62 99 Nasal Cannula 2 03/08/17 16:30 70 16 128/61 99 Nasal Cannula 2 03/08/17 16:15 68 16 112/61 98 Nasal Cannula 2 03/08/17 16:00 69 16 128/62 98 Nasal Cannula 4 03/08/17 15:40 97.5 75 16 120/60 92 Nasal Cannula 4 I/O 03/08/17 03/08/17 03/08/17 03/09/17 03/09/17 03/09/17 06:59 14:59 22:59 06:59 14:59 22:59 Intake Total 605 ml 580 ml 524 ml Output Total 1750 ml 1650 ml 1205 ml 700 ml Balance -1145 ml -1650 ml -625 ml -176 ml Intake Oral 0 ml 80 ml IV Total 258 ml 250 ml 524 ml Packed Cells 347 ml Other 250 ml Output Urine Total 1750 ml 1650 ml 1200 ml 700 ml Estimated Blood Loss 5 ml # Bowel Movements 0 0 3 Result Diagram: 03/09/1715 03/09/17614 Imaging Last Impressions Abdomen X-Ray 03/08/17 0000 Signed Impressions: Service Date/Time: Wednesday, March 08, 2017 10:30 - CONCLUSION: Nonspecific, negative for obstruction or ileus. Isaac Stevenson MD FACR Chest X-Ray 03/02/17 0000 Signed Impressions: Service Date/Time: Thursday, March 02, 2017 13:26 - CONCLUSION: Interval develop of a small left-sided pleural effusion. Pulmonary venous congestion. Edenilson Oviedo MD Lower Extremity CT 03/01/17 0000 Signed Impressions: Service Date/Time: Wednesday, March 01, 2017 11:12 - CONCLUSION: 1. No evidence of organized fluid collections to suggest an abscess. 2. Extensive soft tissue swelling surrounding the ankle and extending to the forefoot especially along the lateral aspect. 3. No erosive or destructive bone changes. 4. Bone defects compatible with previous excision device. Blake Rider MD Ankle X-Ray 02/26/17 0000 Signed Impressions: Service Date/Time: Sunday, February 26, 2017 17:15 - CONCLUSION: I see no retained surgical instruments. Isaac Setvenson MD FACR Upper Extremity Ultrasound 02/25/17 1734 Signed Impressions: Service Date/Time: February 17:54 - CONCLUSION: There is a thin fluid collection within the focal area of soft tissue swelling 2nd digit. Oscar Cassidy MD Hand X-Ray 02/25/17 0000 Signed Impressions: Service Date/Time: February 18:59 - CONCLUSION: No gross bony abnormality. Oscar Cassidy MD Lower Extremity Ultrasound 02/24/17 0000 Signed Impressions: Service Date/Time: Friday, February 24, 2017 13:41 - CONCLUSION: Negative for deep venous thrombosis. Isaac Stevenson MD FACR Head CT 02/24/17 0000 Signed Impressions: Service Date/Time: Friday, February 24, 2017 16:08 - CONCLUSION: 1. No acute intracranial abnormality. 2. Probable large mucocele in the sphenoid sinus. Ty Hankins MD Abdomen/Pelvis CT 02/24/17 0000 Signed Impressions: Service Date/Time: Friday, February 24, 2017 16:16 - CONCLUSION: 1. Marked gaseous distension of large and small bowel most suggestive of ileus. 2. There is no free air. 3. 2.2 cm left adrenal mass. 4. Distended bladder. Isaac Stevenson MD FACR Objective Remarks GENERAL: SKIN: Warm and dry. HEAD: Normocephalic. EYES: No scleral icterus. No injection or drainage. NECK: Supple, trachea midline. No JVD or lymphadenopathy. CARDIOVASCULAR: Regular rate and rhythm without murmurs, gallops, or rubs. RESPIRATORY: Breath sounds equal bilaterally. No accessory muscle use. GASTROINTESTINAL: Abdomen soft, non-tender, nondistended. MUSCULOSKELETAL: RLE wrapped in dressing/FRANCISCO with distal edema. RUE wrapped in bulky surgical dressing, with distal edema, normal capillary refill. Left hand/ wrist wrapped in dressing BACK: Nontender without obvious deformity. No CVA tenderness. Procedures 03/08/17 - Dr. Bullock- exploration, wash, excisional debridement skin, subcutaneous tissue, extensor tenosynovitis right wrist and hand. Findings: necrotic tissue, minimal purulence, extensor tenosynovitis right wrist/hand 03/04/17 - Dr Gamez - Right leg and incision and drainage. Right foot delayed primary closure x3 03/04/17 - Dr. Bullock - Extensor tenosynovectomy second, third, fourth extensor compartments right wrist and excisional debridement wash index finger metacarpal phalangeal joint, excisional wash and excisional debridement left hand. 02/28/17 - Dr. Reyes - Right ankle wound debridement and washout. Implantation of antibiotic vancomycin beads. 02/28/17 - Dr. Bullock - Exploration, wash, excisional debridement index finger metacarpophalangeal joint right hand; Exploration, wash, excisional debridement metacarpophalangeal joint left index finger; Exploration, wash, excisional debridement extensor pollicis longus tendon right thumb and hand. 02/26/17 - Dr. Reyes - Right ankle incision and drainage, arthrotomy, removal infected hardware, bone biopsy. 02/26/17 - Dr. Bullock - Exploration, incision and drainage right hand abscess, Arthrotomy wash metacarpal phalangeal joint right index finger, Arthrotomy wash metacarpal phalangeal joint left index finger. A/P Problem List: (1) Sepsis ICD Code: A41.9 Status: Acute (2) Right foot infection ICD Code: L08.9 Status: Acute (3) Encephalopathy ICD Code: G93.40 Status: Acute (4) Alcoholism ICD Code: F10.20 Status: Acute Assessment and Plan 61-year-old male with history of right foot hardware, HTN, alcohol abuse, Hepatitis C, admitted with sepsis, MRSA bacteremia and septic joints, course complicated by severe agitated delirium and etoh withdrawal, improving. Sepsis with MRSA Bacteremia and Septic Joints: wound cultures from index fingers and right ankle with MRSA. Blood cultures also +MRSA. -S/p multiple surgeries with podiatry Dr. Reyes/Dr. Gamez on 02/26, 02/28, , and hand surgeon Dr. Bullock on 02/26, 02/28, 03/04, 03/08. -Echo 02/28 negative for vegetation -Infectious disease consulted -Continue on antibiotics with IV Dapto and oral Rifampin -Per ID, will need long term care phlebotomist IV abx plus oral Rimfampin for 6 weeks followed by oral suppression, recommends SNF placement for concern for noncompliance -continue pain control with oxycodone prn and IV dilaudid prn Anemia: Hgb trended down to 6.5 on 03/07. -s/p 1u pRBC transfusion on 03/07, Repeat CBC with Hgb 8.3. -Iron studies consistent with chronic anemia. -Check stool hemoccult -Continue to monitor. -GI is following. Humane Agent directed calorie count ordered. Currently on pureed diet with thin liquids. Acute Toxic/Metabolic Encephalopathy secondary to Sepsis and Acute Alcohol Withdrawal: admitted in ICU. -initially admitted to ICU with encephalopathy, severe agitation -symptoms improving -monitor neuro checks Moderate Protein Calorie Malnutrition: Albumin 0.9. BMI 19. NG tube was pulled out today. - Speech, GI following. Humane Agent consulted. Hypernatremia: Na 152 --> 150 - Will start patient on D5W @84cc/hour. Goal is to decrease Sodium by 6 or so. - Nephrology following. Hypertension: BP much better controlled. -continue clonidine 0.3mg tid and coreg 6.25mg bid -monitor BP, adjust antihypertensives as needed Mild Systolic CHF: Echo 02/28 with EF 40-45% and global hypokinesis -Cardiology consulted, recommends continued medical management -Continue BB, unable to have ACEi with renal insufficiency -per cardiology, start ACEi once renal function stabilized THADDEUS: Cr increased to 2, previously 0.86 on 02/28/17. -Nephrology following, likely has ATN -Continue gentle hydration -avoid nephrotoxins -monitor renal function Hepatitis C: antibody positive -GI consulted, appreciate recommendations DVT Prophylaxis: Lovenox GI Prophylaxis: Protonix Problem Qualifiers (1) Sepsis: Qualified Code: A41.9 - Sepsis, due to unspecified organism Zee Velasquez DO Mar 09, 2017 13:18
--- NOTE | 2017-03-09 15:15 | HHI.IDPN ---
Subjective Subjective Remarks is a 61 y/o CM with PMHx of right foot hardware, hypertension, alcoholism, Hepatitis C who was admitted with sepsis, acute metabolic encephalopathy ? DTs. Removal of hardware from r. ankle 02/27. Noted to have a pocket of pus adjacent to and in contact with the hardware. Could not remove all of the wires per podiatry. Embedded in deep tissue. Culture form both index fingers has MRSA. R ankle culture - and distal fibula 02/26, 02/28 MRSA. Blood culture 02/24, 02/25, 02/27 - MRSA. 2D ECHO - No vegetations noted. Overnight events reviewed. s/p debridement of the hands 02/26/17. No fever No rash No diarrhea Antibiotics Dapto IV Rifampin oral. Lines Line sites with no e.o infection Past Medical History hypertension alcoholism Hepatitis C right foot surgery with hardware in place. Allergies: Coded Allergies: ciprofloxacin (Unverified Adverse Reaction, Intermediate, Dizziness, ) *MDRO Multi-Drug Resistant Organism (Verified Adverse Reaction, Unknown, ) MRSA (blood)+(urine) 02/24/17, (blood) 02/25/17, 02/27/17 (finger,ankle,leg) 02/26/17, 02/28/17 MRSA PCR screen positive 02/25/17 Objective . Vital Signs Date Time Temp Pulse Resp B/P Pulse Ox O2 Delivery O2 Flow Rate FiO2 03/09/17 12:00 97.3 103 20 167/82 94 03/09/17 11:22 96 03/09/17 08:00 97.2 80 20 125/62 97 03/09/17 07:46 Room Air 21 03/09/17 04:00 97.4 86 21 134/86 95 03/09/17 00:00 97.2 72 18 142/62 94 03/08/17 20:00 97.6 81 20 143/69 95 03/08/17 20:00 Room Air 03/08/17 17:00 97.3 66 20 129/62 100 03/08/17 16:40 69 16 125/62 99 Nasal Cannula 2 03/08/17 16:30 70 16 128/61 99 Nasal Cannula 2 03/08/17 16:15 68 16 112/61 98 Nasal Cannula 2 03/08/17 16:00 69 16 128/62 98 Nasal Cannula 4 03/08/17 15:40 97.5 75 16 120/60 92 Nasal Cannula 4 03/08/17 03/08/17 03/09/17 14:59 22:59 06:59 Intake Total 580 ml 524 ml Output Total 1650 ml 1205 ml 700 ml Balance -1650 ml -625 ml -176 ml Intake Oral 80 ml IV Total 250 ml 524 ml Other 250 ml Output Urine Total 1650 ml 1200 ml 700 ml Estimated Blood Loss 5 ml # Bowel Movements 0 0 3 . Laboratory Tests Test 03/07/17 03/08/17 03/09/17 17:15 04:32 06:15 White Blood Count 13.3 TH/MM3 15.1 TH/MM3 12.6 TH/MM3 Red Blood Count 2.41 MIL/MM3 2.84 MIL/MM3 2.90 MIL/MM3 Hemoglobin 6.9 GM/DL 8.3 GM/DL 8.3 GM/DL Hematocrit 21.1 % 24.5 % 25.6 % Mean Corpuscular Volume 87.5 FL 86.2 FL 88.1 FL Mean Corpuscular Hemoglobin 28.6 PG 29.1 PG 28.7 PG Mean Corpuscular Hemoglobin 32.7 % 33.8 % 32.6 % Concent Red Cell Distribution Width 15.0 % 14.3 % 14.6 % Platelet Count 246 TH/MM3 240 TH/MM3 265 TH/MM3 Mean Platelet Volume 10.3 FL 10.4 FL 10.0 FL Neutrophils (%) (Auto) 85.6 % 84.2 % 86.0 % Lymphocytes (%) (Auto) 8.3 % 10.1 % 8.8 % Monocytes (%) (Auto) 5.3 % 5.0 % 4.2 % Eosinophils (%) (Auto) 0.4 % 0.3 % 0.8 % Basophils (%) (Auto) 0.4 % 0.4 % 0.2 % Neutrophils # (Auto) 11.4 TH/MM3 12.8 TH/MM3 10.8 TH/MM3 Lymphocytes # (Auto) 1.1 TH/MM3 1.5 TH/MM3 1.1 TH/MM3 Monocytes # (Auto) 0.7 TH/MM3 0.8 TH/MM3 0.5 TH/MM3 Eosinophils # (Auto) 0.1 TH/MM3 0.0 TH/MM3 0.1 TH/MM3 Basophils # (Auto) 0.1 TH/MM3 0.1 TH/MM3 0.0 TH/MM3 CBC Comment DIFF FINAL DIFF FINAL DIFF FINAL Differential Comment Reticulocyte Count 0.8 % Absolute Reticulocyte Count 18.9 MIL/L Laboratory Tests Test 03/08/17 03/09/17 04:32 06:15 Sodium Level 150 MEQ/L 150 MEQ/L Potassium Level 4.0 MEQ/L 3.8 MEQ/L Chloride Level 114 MEQ/L 112 MEQ/L Carbon Dioxide Level 30.0 MEQ/L 31.1 MEQ/L Anion Gap 6 MEQ/L 7 MEQ/L Blood Urea Nitrogen 59 MG/DL 55 MG/DL Creatinine 2.22 MG/DL 2.16 MG/DL Estimat Glomerular Filtration 30 ML/MIN 31 ML/MIN Rate Random Glucose 95 MG/DL 89 MG/DL Calcium Level 9.7 MG/DL 9.9 MG/DL Phosphorus Level 4.7 MG/DL Magnesium Level 2.3 MG/DL Albumin 1.1 GM/DL 1.1 GM/DL Total Bilirubin 0.4 MG/DL Aspartate Amino Transf 43 U/L (AST/SGOT) Alanine Aminotransferase 21 U/L (ALT/SGPT) Alkaline Phosphatase 81 U/L Total Creatine Kinase 167 U/L Total Protein 6.4 GM/DL Microbiology Date/Time Procedure Status Source Growth 03/08/17 00:00 Gram Stain - Final Resulted Wound Wrist 03/08/17 00:00 Wound Culture - Preliminary Resulted Wound Wrist NO GROWTH IN 24 HOURS. 03/08/17 00:00 Acid Fast Stain Received Wound Wrist Pending 03/08/17 00:00 Mycobacterial Culture Received Wound Wrist Pending 03/08/17 00:00 Fungal Smear - Final Resulted Wound Wrist NO FUNGAL ELEMENTS SEEN. 03/08/17 00:00 Fungal Culture Resulted Wound Wrist Pending Imaging Last Impressions Chest X-Ray 03/02/17 0000 Signed Impressions: Service Date/Time: Thursday, March 02, 2017 13:26 - CONCLUSION: Interval develop of a small left-sided pleural effusion. Pulmonary venous congestion. Edenilson Oviedo MD Lower Extremity CT 03/01/17 0000 Signed Impressions: Service Date/Time: Wednesday, March 01, 2017 11:12 - CONCLUSION: 1. No evidence of organized fluid collections to suggest an abscess. 2. Extensive soft tissue swelling surrounding the ankle and extending to the forefoot especially along the lateral aspect. 3. No erosive or destructive bone changes. 4. Bone defects compatible with previous excision device. Blake Rider MD Ankle X-Ray 02/26/17 0000 Signed Impressions: Service Date/Time: Sunday, February 26, 2017 17:15 - CONCLUSION: I see no retained surgical instruments. Isaac Stevenson MD FACR Abdomen X-Ray 02/26/17 0000 Signed Impressions: Service Date/Time: Monday, February 27, 2017 00:36 - CONCLUSION: Nasogastric tube within the stomach Harry Lucio MD Upper Extremity Ultrasound 02/25/17 1734 Signed Impressions: Service Date/Time: February 17:54 - CONCLUSION: There is a thin fluid collection within the focal area of soft tissue swelling 2nd digit. Oscar Cassidy MD Hand X-Ray 02/25/17 0000 Signed Impressions: Service Date/Time: February 18:59 - CONCLUSION: No gross bony abnormality. Oscar Cassidy MD Lower Extremity Ultrasound 02/24/17 0000 Signed Impressions: Service Date/Time: Friday, February 24, 2017 13:41 - CONCLUSION: Negative for deep venous thrombosis. Isaac Stevenson MD FACR Head CT 02/24/17 0000 Signed Impressions: Service Date/Time: Friday, February 24, 2017 16:08 - CONCLUSION: 1. No acute intracranial abnormality. 2. Probable large mucocele in the sphenoid sinus. Ty Hankins MD Abdomen/Pelvis CT 02/24/17 0000 Signed Impressions: Service Date/Time: Friday, February 24, 2017 16:16 - CONCLUSION: 1. Marked gaseous distension of large and small bowel most suggestive of ileus. 2. There is no free air. 3. 2.2 cm left adrenal mass. 4. Distended bladder. Isaac Stevenson MD FACR Physical Exam GENERAL: This is a well-nourished, well-developed patient, in no apparent distress. SKIN: No rashes, ecchymoses or lesions. Cool and dry. HEAD: Atraumatic. Normocephalic. No temporal or scalp tenderness. EYES: Pupils equal round and reactive. Extraocular motions intact. No scleral icterus. No injection or drainage. ENT: Nose without bleeding, purulent drainage or septal hematoma. Throat without erythema, tonsillar hypertrophy or exudate. Uvula midline. Airway patent. NECK: Trachea midline. Supple, nontender, no meningeal signs. CARDIOVASCULAR: Regular rate and rhythm without murmurs, gallops, or rubs. RESPIRATORY: Clear to auscultation. Breath sounds equal bilaterally. No wheezes , rales, or rhonchi. GASTROINTESTINAL: Abdomen soft, non-tender, nondistended. MUSCULOSKELETAL: Rt foot with swelling and warmth and fluctuance noted. Bilateral UE with warmth and swelling around knuckles noted. NEUROLOGICAL: Lethargic, awakens on command but drifts back to sleep. 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 distant showering of emboli to other joints. s/p partial removal of hardware. Deeper hardware embedded. MRSA bacteremia Right ankle hardware infection Bilateral UE hand abscess/cellulitis. Leucocytosis: increase today ? Post Acute metabolic encephalopathy: ? infection, metabolic Acute renal failure: ? vanco induced. hypertension alcoholism Hepatitis C Recs Continue Dapto IV (ASP: ? Vanco induced renal failure). d/w Clinical pharmacist to dose at 8 mg/kg IV q48hrs. Continue Rifampin oral for hardware infection right foot. Follow LFTs every week and prn. RN reports diarrhea despite no dulcolax since 03/06/17. Check Cdiff PCR. Follow cultures Follow clinically. Case management note: Will need IV antibiotics plus Rifampin oral for 6 weeks followed by oral suppression. Consider SNF placement as patient has alcoholism history and may not be compliant with medications/antibiotics. Sunshine Keene MD Mar 09, 2017 15:15
--- NOTE | 2017-03-09 16:01 | PD.CARD.PN ---
Subjective Subjective Remarks Confused, no CP or SOB Objective Medications Current Medications Medications (Trade) Dose Ordered Sig/Kayla Route Start Time Stop Time Status Last Admin (NS Flush) 2 ml UNSCH PRN IV FLUSH 02/24/17 13:45 02/24/17 13:38 (Zofran Inj) 4 mg Q8HR PRN IV PUSH 02/24/17 18:00 (Vitamin B1) 100 mg DAILY PO 02/25/17 09:00 03/09/17 09:30 (Romazicon Inj) 0.2 mg Q1M PRN IV PUSH 02/25/17 09:15 (Ativan) 1 mg Q4H PRN PO 02/25/17 09:15 03/04/17 09:13 (Ativan Inj) 1 mg Q4H PRN IV PUSH 02/25/17 09:15 03/05/17 02:41 (Theragran) 1 tab DAILY PO 02/26/17 09:00 03/09/17 09:30 (Tylenol) 650 mg Q4H PRN PO 02/25/17 09:15 03/07/17 04:47 Enoxaparin Sodium 40 mg 40 mg Q24H SQ 02/25/17 10:00 Hold 03/07/17 10:00 (Precedex Inj/NS Inj) 52 ml @ 0 mls/hr TITRATE IV 02/25/17 17:30 02/27/17 13:55 (Ofirmev Inj) 650 mg Q6H PRN IV 02/25/17 21:00 03/06/17 20:12 (Trandate Inj) 10 mg Q6H PRN IV PUSH 02/25/17 23:15 (Protonix Inj) 40 mg Q24H IV PUSH 02/26/17 00:00 03/09/17 02:20 Miscellaneous Information Patient in critical care unit? Ass... Q361D .XX 02/26/17 07:15 (Bactroban Nasal 2% Oint) 1 applic BID NASAL 02/26/17 09:00 03/09/17 09:30 (Catapres) 0.3 mg Q8HR PO 02/26/17 22:11 03/09/17 13:07 (Roxicodone) 5 mg Q4H PRN PO 02/28/17 07:45 03/02/17 01:58 (Dilaudid Pf Inj) 0.5 mg Q3H PRN IV PUSH 02/28/17 07:45 03/08/17 22:50 Rifampin 300 mg 300 mg Q12HR PO 03/02/17 21:00 03/09/17 09:30 (KCl Inj/Sodium Chloride 23.4% Inj/Sterile Water For Inj) 1,010 ml @ 55 mls/hr [id number] IV 03/03/17 11:00 03/09/17 05:34 Carvedilol 6.25 mg 6.25 mg Q12HR PO 03/03/17 21:00 03/09/17 09:30 (Cubicin Inj/NS Inj) 100 ml @ 200 mls/hr Q24H IV 03/06/17 12:00 03/09/17 12:17 (Dulcolax Supp) 10 mg DAILY PRN RECTAL 03/06/17 21:00 (Lactulose Liq) 30 ml DAILY PRN NG 03/06/17 21:00 03/07/17 18:45 (Colace Liq) 100 mg Q12HR PO 03/06/17 21:15 Hold 03/09/17 09:30 (Prinivil) 2.5 mg DAILY PO 03/09/17 09:00 03/09/17 09:31 (Pill Splitter) 1 ea UNSCH PRN OTHER 03/08/17 21:15 Vital Signs / I&O Vital Signs Date Time Temp Pulse Resp B/P Pulse Ox O2 Delivery O2 Flow Rate FiO2 03/09/17 12:00 97.3 103 20 167/82 94 03/09/17 11:22 96 03/09/17 08:00 97.2 80 20 125/62 97 03/09/17 07:46 Room Air 21 03/09/17 04:00 97.4 86 21 134/86 95 03/09/17 00:00 97.2 72 18 142/62 94 03/08/17 20:00 97.6 81 20 143/69 95 03/08/17 20:00 Room Air 03/08/17 17:00 97.3 66 20 129/62 100 03/08/17 16:40 69 16 125/62 99 Nasal Cannula 2 03/08/17 16:30 70 16 128/61 99 Nasal Cannula 2 03/08/17 16:15 68 16 112/61 98 Nasal Cannula 2 03/08/17 16:00 69 16 128/62 98 Nasal Cannula 4 I/O 03/08/17 03/08/17 03/08/17 03/09/17 03/09/17 03/09/17 06:59 14:59 22:59 06:59 14:59 22:59 Intake Total 605 ml 580 ml 524 ml Output Total 1750 ml 1650 ml 1205 ml 700 ml Balance -1145 ml -1650 ml -625 ml -176 ml Intake Oral 0 ml 80 ml IV Total 258 ml 250 ml 524 ml Packed Cells 347 ml Other 250 ml Output Urine Total 1750 ml 1650 ml 1200 ml 700 ml Estimated Blood Loss 5 ml # Bowel Movements 0 0 3 Physical Exam GENERAL: In NAD SKIN: Warm and dry. HEAD: Normocephalic. EYES: No scleral icterus. No injection or drainage. NECK: Supple, trachea midline. No JVD or lymphadenopathy. CARDIOVASCULAR: Regular rate and rhythm without murmurs, gallops, or rubs. RESPIRATORY: Breath sounds equal bilaterally. No accessory muscle use. GASTROINTESTINAL: Abdomen soft, non-tender, nondistended. MUSCULOSKELETAL: No cyanosis, or edema. Laboratory Laboratory Tests Test 03/09/17 06:15 White Blood Count 12.6 TH/MM3 Red Blood Count 2.90 MIL/MM3 Hemoglobin 8.3 GM/DL Hematocrit 25.6 % Mean Corpuscular Volume 88.1 FL Mean Corpuscular Hemoglobin 28.7 PG Mean Corpuscular Hemoglobin 32.6 % Concent Red Cell Distribution Width 14.6 % Platelet Count 265 TH/MM3 Mean Platelet Volume 10.0 FL Neutrophils (%) (Auto) 86.0 % Lymphocytes (%) (Auto) 8.8 % Monocytes (%) (Auto) 4.2 % Eosinophils (%) (Auto) 0.8 % Basophils (%) (Auto) 0.2 % Neutrophils # (Auto) 10.8 TH/MM3 Lymphocytes # (Auto) 1.1 TH/MM3 Monocytes # (Auto) 0.5 TH/MM3 Eosinophils # (Auto) 0.1 TH/MM3 Basophils # (Auto) 0.0 TH/MM3 CBC Comment DIFF FINAL Differential Comment Sodium Level 150 MEQ/L Potassium Level 3.8 MEQ/L Chloride Level 112 MEQ/L Carbon Dioxide Level 31.1 MEQ/L Anion Gap 7 MEQ/L Blood Urea Nitrogen 55 MG/DL Creatinine 2.16 MG/DL Estimat Glomerular Filtration 31 ML/MIN Rate Random Glucose 89 MG/DL Calcium Level 9.9 MG/DL Total Bilirubin 0.4 MG/DL Aspartate Amino Transf 43 U/L (AST/SGOT) Alanine Aminotransferase 21 U/L (ALT/SGPT) Alkaline Phosphatase 81 U/L Total Creatine Kinase 167 U/L Total Protein 6.4 GM/DL Albumin 1.1 GM/DL Imaging Last Impressions Abdomen X-Ray 03/08/17 0000 Signed Impressions: Service Date/Time: Wednesday, March 08, 2017 10:30 - CONCLUSION: Nonspecific, negative for obstruction or ileus. Isaac Stevenson MD FACR Chest X-Ray 03/02/17 0000 Signed Impressions: Service Date/Time: Thursday, March 02, 2017 13:26 - CONCLUSION: Interval develop of a small left-sided pleural effusion. Pulmonary venous congestion. Edenilson Oviedo MD Lower Extremity CT 03/01/17 0000 Signed Impressions: Service Date/Time: Wednesday, March 01, 2017 11:12 - CONCLUSION: 1. No evidence of organized fluid collections to suggest an abscess. 2. Extensive soft tissue swelling surrounding the ankle and extending to the forefoot especially along the lateral aspect. 3. No erosive or destructive bone changes. 4. Bone defects compatible with previous excision device. Blake Rider MD Ankle X-Ray 02/26/17 0000 Signed Impressions: Service Date/Time: Sunday, February 26, 2017 17:15 - CONCLUSION: I see no retained surgical instruments. Isaac Stevenson MD FACR Upper Extremity Ultrasound 02/25/17 1734 Signed Impressions: Service Date/Time: February 17:54 - CONCLUSION: There is a thin fluid collection within the focal area of soft tissue swelling 2nd digit. Oscar Cassidy MD Hand X-Ray 02/25/17 0000 Signed Impressions: Service Date/Time: February 18:59 - CONCLUSION: No gross bony abnormality. Oscar Cassidy MD Lower Extremity Ultrasound 02/24/17 0000 Signed Impressions: Service Date/Time: Friday, February 24, 2017 13:41 - CONCLUSION: Negative for deep venous thrombosis. Isaac Stevenson MD FACR Head CT 02/24/17 0000 Signed Impressions: Service Date/Time: Friday, February 24, 2017 16:08 - CONCLUSION: 1. No acute intracranial abnormality. 2. Probable large mucocele in the sphenoid sinus. Ty Hankins MD Abdomen/Pelvis CT 02/24/17 0000 Signed Impressions: Service Date/Time: Friday, February 24, 2017 16:16 - CONCLUSION: 1. Marked gaseous distension of large and small bowel most suggestive of ileus. 2. There is no free air. 3. 2.2 cm left adrenal mass. 4. Distended bladder. Isaac Stevenson MD FACR Assessment and Plan Problem List: (1) CHF (congestive heart failure) (2) Cardiomyopathy (3) ARF (acute renal failure) (4) Alcoholism (5) Tobacco use disorder (6) Sepsis Assessment and Plan Tolerated surgery well yest. Continue tx for CHF including carvedilol. Continue monitoring on tele. Increase activity, PT. Started low dose lisinopril; titrate and continue to monitor renal fx. Problem Qualifiers (1) Sepsis: Qualified Code: A41.9 - Sepsis, due to unspecified organism Raquel Escobar MD Mar 09, 2017 16:01
--- NOTE | 2017-03-09 17:33 | HHI.NPPN ---
Subjective History of Present Illness 61 year old male with past medical history of hypertension, history of being homeless. He was admitted on February 25 with altered mental status and leukocytosis. I was called to see the patient because of elevated BUN and creatinine. Additional Remarks Patient is alert, not in distress, started oral feeding. Objective Data Data 03/08/17 03/09/17 19:00 07:00 Intake Total 500 ml 604 ml Output Total 2205 ml 1350 ml Balance -1705 ml -746 ml Intake Oral 80 ml IV Total 250 ml 524 ml Other 250 ml Output Urine Total 2200 ml 1350 ml Estimated Blood Loss 5 ml # Bowel Movements 0 3 Vital Signs Date Time Temp Pulse Resp B/P Pulse Ox O2 Delivery O2 Flow Rate FiO2 03/09/17 16:00 97.8 99 20 133/83 98 03/09/17 12:00 97.3 103 20 167/82 94 03/09/17 11:22 96 03/09/17 08:00 97.2 80 20 125/62 97 03/09/17 07:46 Room Air 21 03/09/17 04:00 97.4 86 21 134/86 95 03/09/17 00:00 97.2 72 18 142/62 94 03/08/17 20:00 97.6 81 20 143/69 95 03/08/17 20:00 Room Air -: 03/09/17 0615 03/09/17 0615 Physical Exam General Appearance: No Acute Distress, Anxious Eyes Eye Exam: Pupils Equal Throat Throat Exam: Oral Mucosa Bryson & Moist Neck Neck Exam: Neck Supple Pulmonary Resp Exam: Breath Sounds Equal, No Distress, Rhonchi, Decreased Bases Cardiology CV Exam: Regular, Normal Sinus Rhythm Gastrointestinal/Abdomen GI Exam: Soft, Non-Tender, Bowel Sounds Present Extremeties Extremities Exam: Trace Edema Neurologic Neuro Exam: Alert, Awake, Oriented Psychiatric Psych Exam: Appropriate Responses Assessment/Plan Assessment Summary: THADDEUS/Acute Renal Failure Problem List: (1) Encephalopathy (2) Essential hypertension (3) Hepatitis C, chronic (4) Abscess of right hand including fingers (5) Abscess of left hand including fingers (6) Alcoholism (7) CHF (congestive heart failure) (8) Sepsis (9) ARF (acute renal failure) Plan Patient has been non oliguric. Urine Eosinophils negative. Urine Na. is normal. Most likely has ATN. Continue gentle hydration and antibiotics. Avoid Nephrotoxins. Creatinine is stable and Na. is better, 150. on Hypotonic fluid with Kcl. Post debridement. Follow the urine out put and BMP. Avoid Nephrotoxins. Problem Qualifiers (1) Sepsis: Qualified Code: A41.9 - Sepsis, due to unspecified organism Diane Barker MD Mar 09, 2017 17:33
--- NOTE | 2017-03-09 20:43 | MP ---
cc: FILIBERTO SAGASTUME MD DATE OF SURGERY: 03/08/2017 PREOPERATIVE DIAGNOSIS: Infectious extensor tenosynovitis right wrist / hand, septic arthritis index finger, MP joint right hand. POSTOPERATIVE DIAGNOSIS Infectious extensor tenosynovitis right wrist / hand, septic arthritis right index finger, metacarpal phalangeal joint right hand. PROCEDURE: Exploration, wash, excisional debridement of skin, subcutaneous tissue and extensor tenosynovium right wrist and hand. SURGEON: Dr. Sagastume ANESTHESIA General ESTIMATED BLOOD LOSS Minimal TOURNIQUET TIME 38 minutes at 250 mmHg. SPECIMEN: Specimen was sent for culture and sensitivity. The patient was recovered and in stable condition. INDICATIONS FOR PROCEDURE: The patient is a 61-year-old male with worsening infection with bilateral septic arthritis, index finger, MP joint and extensor tenosynovitis infection on the right. The patient underwent multiple debridements and he was brought in today for repeat debridement of the right hand. DESCRIPTION OF PROCEDURE: The patient was brought to the operating room and under general anesthesia, the right upper extremity was thoroughly prepped and draped. The previously placed sutures were removed. The incision was extended proximally. After limb elevation tourniquet is inflated 250 mmHg. Minimal purulence noted of the proximal aspect of the wound. Extensive inflammatory tissue noted around the extensor tendon especially involving the extensor pollicis longus tendon. There was also evidence of necrotic material underneath the extensor tendons which was debrided. No evidence of purulent material was noted at the MP joint of the index finger. Excisional debridement of skin and subcutaneous tissue and extensor tenosynovium was carried out. The wrist joint appeared not to be involved with the infection. The patient had inflammatory tissue within the subcutaneous layer of the hand which was debrided. The skin edges were necrotic around the third extensor compartment and was debrided. Thorough wash was given using normal saline mixed with hydrogen peroxide and normal saline mixed with vancomycin. About 2 liters of solution was used. Tourniquet was deflated, bleeding point were cauterized with bipolar cautery. Bleeding points were cauterized with bipolar cautery. Packing of the wounds were carried out with half inch Iodoform packing material. Proximal aspect of the wound was closed loosely with 4-0 nylon stitches. The wound over the extensor pollicis longus tendon was not able to be approximated with nylon vessel loop were used in a shoelace pattern. Packing of the index finger MP joint was carried out along the subcutaneous tissue on the dorsal aspect of the hand. The wound over there was closed partially with 4-0 nylon then vessel loops with shoe lace pattern. Bulky hand dressing was applied which was held in place by Sof-Rol and bias hand wrap. The patient was sent to the Recovery Room in stable condition. Plan will be to bring him back on for repeat wash and possible closure. Filiberto Sagastume MD SE/CURT /3:38 PM /8:15 PM MTDD
[2017-03-10] VITALS: BP 123/60; PULSE 75; RESP 20; TEMP 98.1; O2SAT 100
[2017-03-10] MEDS: DEXTROSE 5% IN WATE 1000ML INJ 1,000 ML IV SCH ×3 (01:26→23:58)
[2017-03-10 04:00] VITALS: BP 134/72; PULSE 80; RESP 20; TEMP 98.1; O2SAT 100
[2017-03-10] MEDS: cloNIDine HCL 0.3 MG TAB PO SCH ×2 (05:59→23:56)
[2017-03-10 08:00] VITALS: BP 129/62; PULSE 83; RESP 20; TEMP 97; O2SAT 97
[2017-03-10] MEDS: MUPIROCIN 2% OINT 1 APPLIC/GM SYR NASAL SCH ×2 (08:11→21:00)
[2017-03-10] MEDS: RIFAMPIN 150 MG CAP PO SCH ×2 (08:11→23:57)
[2017-03-10] MEDS: THIAMINE HCL 100 MG TAB PO SCH (08:11)
[2017-03-10] MEDS: LISINOPRIL 5 MG TAB PO SCH (08:11)
[2017-03-10] MEDS: MULTIVITAMIN TAB PO SCH (08:11)
[2017-03-10] MEDS: CARVEDILOL 6.25 MG TAB PO SCH ×2 (08:14→23:56)
[2017-03-10 11:12] LABS: AUTOMATED NEUTROPHIL # 6.7 TH/MM3 (1.8-7.7); BASOPHIL % 0.4 % (0.0-2.0); EOSINOPHIL # 0.1 TH/MM3 (0-0.4); EOSINOPHIL % 1.2 % (0.0-4.0); HEMATOCRIT 22.3 % (39.0-51.0); HEMO FLAGS DIFF FINAL; LYMPH % 13.5 % (9.0-44.0); LYMPHOCYTE # 1.2 TH/MM3 (1.0-4.8); MEAN CELL VOLUME 87.4 FL (80.0-100.0); MEAN CORPUSCULAR HGB CONC 33.2 % (32.0-36.0); MONO % 6.1 % (0.0-8.0); NEUT % 78.8 % (16.0-70.0); PLATELET COUNT 204 TH/MM3 (150-450); RED BLOOD COUNT 2.55 MIL/MM3 (4.50-5.90); RED CELL DISTRIBUTION WIDTH 14.2 % (11.6-17.2); WHITE BLOOD COUNT 8.6 TH/MM3 (4.0-11.0)
[2017-03-10] MEDS: SODIUM CHLORIDE 0.9% IV SCH (11:47)
[2017-03-10] MEDS: DAPTOMYCIN IV SCH (11:47)
[2017-03-10 12:00] VITALS: BP 175/81; PULSE 80; RESP 18; TEMP 97.9; O2SAT 97
[2017-03-10] MEDS ORDERED: LACTATED RINGER'S 1000 ML INJ 1,000 ML IV ONE (12:00)
[2017-03-10] MEDS ORDERED: PHENYLEPH/NS 1000 MCG/10 ML SYR IV ONE (12:00)
[2017-03-10] MEDS ORDERED: NEOSTIGMINE 3 MG/3 ML SYR IV ONE (12:00)
[2017-03-10] MEDS ORDERED: PROPOFOL 200 MG/20 ML AMP IV ONE (12:00)
[2017-03-10] MEDS ORDERED: ePHEDrine/NS 25 MG/5 ML SYR IV ONE (12:00)
[2017-03-10] MEDS ORDERED: ONDANSETRON HCL 4 MG/2 ML VIAL IV PUSH ONE (12:00)
[2017-03-10] MEDS ORDERED: SODIUM CHLOR 0.9% 1000 ML INJ 1,000 ML IV ONE (12:00)
--- NOTE | 2017-03-10 13:15 | PD.CARD.PN ---
Subjective Subjective Remarks No CP or SOB, c/o UE pain Objective Medications Current Medications Medications (Trade) Dose Ordered Sig/Kayla Route Start Time Stop Time Status Last Admin (NS Flush) 2 ml UNSCH PRN IV FLUSH 02/24/17 13:45 02/24/17 13:38 (Zofran Inj) 4 mg Q8HR PRN IV PUSH 02/24/17 18:00 (Vitamin B1) 100 mg DAILY PO 02/25/17 09:00 03/10/17 08:11 (Romazicon Inj) 0.2 mg Q1M PRN IV PUSH 02/25/17 09:15 (Ativan) 1 mg Q4H PRN PO 02/25/17 09:15 03/04/17 09:13 (Ativan Inj) 1 mg Q4H PRN IV PUSH 02/25/17 09:15 03/05/17 02:41 (Theragran) 1 tab DAILY PO 02/26/17 09:00 03/10/17 08:11 (Tylenol) 650 mg Q4H PRN PO 02/25/17 09:15 03/07/17 04:47 (Ofirmev Inj) 650 mg Q6H PRN IV 02/25/17 21:00 03/06/17 20:12 (Trandate Inj) 10 mg Q6H PRN IV PUSH 02/25/17 23:15 (Protonix Inj) 40 mg Q24H IV PUSH 02/26/17 00:00 03/10/17 00:00 Miscellaneous Information Patient in critical care unit? Ass... Q361D .XX 02/26/17 07:15 (Bactroban Nasal 2% Oint) 1 applic BID NASAL 02/26/17 09:00 03/10/17 08:11 (Catapres) 0.3 mg Q8HR PO 02/26/17 22:11 03/09/17 22:18 (Roxicodone) 5 mg Q4H PRN PO 02/28/17 07:45 03/02/17 01:58 (Dilaudid Pf Inj) 0.5 mg Q3H PRN IV PUSH 02/28/17 07:45 03/08/17 22:50 (Rifampin) 300 mg Q12HR PO 03/02/17 21:00 03/10/17 08:11 Carvedilol 6.25 mg 6.25 mg Q12HR PO 03/03/17 21:00 03/10/17 08:14 (Cubicin Inj/NS Inj) 100 ml @ 200 mls/hr Q24H IV 03/06/17 12:00 03/10/17 11:47 (Dulcolax Supp) 10 mg DAILY PRN RECTAL 03/06/17 21:00 (Lactulose Liq) 30 ml DAILY PRN NG 03/06/17 21:00 03/07/17 18:45 (Colace Liq) 100 mg Q12HR PO 03/06/17 21:15 Hold 03/09/17 09:30 (Prinivil) 2.5 mg DAILY PO 03/09/17 09:00 03/10/17 08:11 Miscellaneous 1 ea 1 ea UNSCH PRN OTHER 03/08/17 21:15 (D5W 1000 ml Inj) 1,000 ml @ 84 mls/hr [id number] IV 03/09/17 23:45 03/10/17 08:12 (Lovenox Inj) 40 mg Q24H SQ 03/10/17 13:00 Vital Signs / I&O Vital Signs Date Time Temp Pulse Resp B/P Pulse Ox O2 Delivery O2 Flow Rate FiO2 03/10/17 12:00 97.9 80 18 175/81 97 03/10/17 09:46 Room Air 21 03/10/17 08:00 97.0 83 20 129/62 97 03/10/17 04:00 98.1 80 20 134/72 100 03/10/17 00:00 98.1 75 20 123/60 100 03/09/17 20:00 Room Air 03/09/17 20:00 98.8 89 24 134/83 95 03/09/17 16:00 97.8 99 20 133/83 98 I/O 03/09/17 03/09/17 03/09/17 03/10/17 03/10/17 03/10/17 07:00 15:00 23:00 07:00 15:00 23:00 Intake Total 524 ml 240 ml 987 ml Output Total 700 ml 1250 ml 1200 ml 250 ml Balance -176 ml -1010 ml -213 ml -250 ml Intake Oral 240 ml IV Total 524 ml 987 ml Output Urine Total 700 ml 1250 ml 1200 ml 250 ml # Bowel Movements 3 3 Physical Exam GENERAL: In NAD SKIN: Warm and dry. HEAD: Normocephalic. EYES: No scleral icterus. No injection or drainage. NECK: Supple, trachea midline. No JVD or lymphadenopathy. CARDIOVASCULAR: Regular rate and rhythm without murmurs, gallops, or rubs. RESPIRATORY: Breath sounds equal bilaterally. No accessory muscle use. GASTROINTESTINAL: Abdomen soft, non-tender, nondistended. MUSCULOSKELETAL: No cyanosis, or edema. Laboratory Laboratory Tests Test 03/10/17 10:33 White Blood Count 8.6 TH/MM3 Red Blood Count 2.55 MIL/MM3 Hemoglobin 7.4 GM/DL Hematocrit 22.3 % Mean Corpuscular Volume 87.4 FL Mean Corpuscular Hemoglobin 29.0 PG Mean Corpuscular Hemoglobin 33.2 % Concent Red Cell Distribution Width 14.2 % Platelet Count 204 TH/MM3 Mean Platelet Volume 10.6 FL Neutrophils (%) (Auto) 78.8 % Lymphocytes (%) (Auto) 13.5 % Monocytes (%) (Auto) 6.1 % Eosinophils (%) (Auto) 1.2 % Basophils (%) (Auto) 0.4 % Neutrophils # (Auto) 6.7 TH/MM3 Lymphocytes # (Auto) 1.2 TH/MM3 Monocytes # (Auto) 0.5 TH/MM3 Eosinophils # (Auto) 0.1 TH/MM3 Basophils # (Auto) 0.0 TH/MM3 CBC Comment DIFF FINAL Differential Comment Imaging Last Impressions Abdomen X-Ray 03/08/17 0000 Signed Impressions: Service Date/Time: Wednesday, March 08, 2017 10:30 - CONCLUSION: Nonspecific, negative for obstruction or ileus. Isaac Stevenson MD FACR Chest X-Ray 03/02/17 0000 Signed Impressions: Service Date/Time: Thursday, March 02, 2017 13:26 - CONCLUSION: Interval develop of a small left-sided pleural effusion. Pulmonary venous congestion. Edenilson Oviedo MD Lower Extremity CT 03/01/17 0000 Signed Impressions: Service Date/Time: Wednesday, March 01, 2017 11:12 - CONCLUSION: 1. No evidence of organized fluid collections to suggest an abscess. 2. Extensive soft tissue swelling surrounding the ankle and extending to the forefoot especially along the lateral aspect. 3. No erosive or destructive bone changes. 4. Bone defects compatible with previous excision device. Blake Rider MD Ankle X-Ray 02/26/17 0000 Signed Impressions: Service Date/Time: Sunday, February 26, 2017 17:15 - CONCLUSION: I see no retained surgical instruments. Isaac Stevenson MD FACR Upper Extremity Ultrasound 02/25/17 1734 Signed Impressions: Service Date/Time: February 17:54 - CONCLUSION: There is a thin fluid collection within the focal area of soft tissue swelling 2nd digit. Oscar Cassidy MD Hand X-Ray 02/25/17 0000 Signed Impressions: Service Date/Time: February 18:59 - CONCLUSION: No gross bony abnormality. Oscar Cassidy MD Lower Extremity Ultrasound 02/24/17 0000 Signed Impressions: Service Date/Time: Friday, February 24, 2017 13:41 - CONCLUSION: Negative for deep venous thrombosis. Isaac Stevenson MD FACR Head CT 02/24/17 0000 Signed Impressions: Service Date/Time: Friday, February 24, 2017 16:08 - CONCLUSION: 1. No acute intracranial abnormality. 2. Probable large mucocele in the sphenoid sinus. Ty Hankins MD Abdomen/Pelvis CT 02/24/17 0000 Signed Impressions: Service Date/Time: Friday, February 24, 2017 16:16 - CONCLUSION: 1. Marked gaseous distension of large and small bowel most suggestive of ileus. 2. There is no free air. 3. 2.2 cm left adrenal mass. 4. Distended bladder. Isaac Stevenson MD FACR Assessment and Plan Problem List: (1) CHF (congestive heart failure) (2) Cardiomyopathy (3) ARF (acute renal failure) (4) Alcoholism (5) Tobacco use disorder (6) Sepsis Assessment and Plan No new cardiac issues. Continue tx for CHF including carvedilol. Continue monitoring on tele. Increase activity, PT. Titrate lisinopril as tolerated, and continue to monitor renal fx. Problem Qualifiers (1) Sepsis: Qualified Code: A41.9 - Sepsis, due to unspecified organism Raquel Escobar MD Mar 10, 2017 13:15
[2017-03-10] MEDS ORDERED: DO NOT ADM ANY ANTICOAGULANT DRUGS PRN (14:30)
[2017-03-10] MEDS ORDERED: BUPIVACAINE HCL PF 0.5% 30 ML VIAL ONE (14:50)
[2017-03-10] MEDS ORDERED: LIDOCAINE HCL 2% 50 ML VIAL ONE (14:51)
[2017-03-10] MEDS ORDERED: BACITRACIN TOP OINT 15 GM TUBE ONE ×2 (14:51→16:41)
--- NOTE | 2017-03-10 15:03 | HHI.GIFU ---
Subjective Remarks Resting in bed. Confused. NPO for hand surgery later today. Poor po intake, 0 , 30%, 50% meals. D/W Dr. Velasquez probable need for supplemental nutrition. ( Delia Zimmerman) Objective Vitals I&O Vital Signs Date Time Temp Pulse Resp B/P Pulse Ox O2 Delivery O2 Flow Rate FiO2 03/10/17 12:00 97.9 80 18 175/81 97 03/10/17 09:46 Room Air 21 03/10/17 08:00 97.0 83 20 129/62 97 03/10/17 04:00 98.1 80 20 134/72 100 03/10/17 00:00 98.1 75 20 123/60 100 03/09/17 20:00 Room Air 03/09/17 20:00 98.8 89 24 134/83 95 03/09/17 16:00 97.8 99 20 133/83 98 I/O 03/09/17 03/09/17 03/09/17 03/10/17 03/10/17 03/10/17 07:00 15:00 23:00 07:00 15:00 23:00 Intake Total 524 ml 240 ml 987 ml Output Total 700 ml 1250 ml 1200 ml 250 ml Balance -176 ml -1010 ml -213 ml -250 ml Intake Oral 240 ml IV Total 524 ml 987 ml Output Urine Total 700 ml 1250 ml 1200 ml 250 ml # Bowel Movements 3 3 Laboratory Laboratory Tests Test 03/10/17 10:33 White Blood Count 8.6 Red Blood Count 2.55 Hemoglobin 7.4 Hematocrit 22.3 Mean Corpuscular Volume 87.4 Mean Corpuscular Hemoglobin 29.0 Mean Corpuscular Hemoglobin 33.2 Concent Red Cell Distribution Width 14.2 Platelet Count 204 Mean Platelet Volume 10.6 Neutrophils (%) (Auto) 78.8 Lymphocytes (%) (Auto) 13.5 Monocytes (%) (Auto) 6.1 Eosinophils (%) (Auto) 1.2 Basophils (%) (Auto) 0.4 Neutrophils # (Auto) 6.7 Lymphocytes # (Auto) 1.2 Monocytes # (Auto) 0.5 Eosinophils # (Auto) 0.1 Basophils # (Auto) 0.0 CBC Comment DIFF FINAL Differential Comment Date/Time Procedure Status Source Growth 03/08/17 00:00 Gram Stain - Final Resulted Wound Wrist 03/08/17 00:00 Wound Culture - Preliminary Resulted Wound Wrist NO GROWTH IN 48 HOURS. 03/08/17 00:00 Fungal Smear - Final Resulted Wound Wrist NO FUNGAL ELEMENTS SEEN. 03/08/17 00:00 Fungal Culture Resulted Wound Wrist Pending 03/08/17 00:00 Acid Fast Stain - Final Resulted Wound Wrist NO ACID FAST BACILLI SEEN 03/08/17 00:00 Mycobacterial Culture Resulted Wound Wrist Pending Imaging Last Impressions Abdomen X-Ray 03/08/17 Signed Impressions: Service Date/Time: Wednesday, March 08, 2017 10:30 - CONCLUSION: Nonspecific, negative for obstruction or ileus. Isaac Stevenson MD FACR Chest X-Ray 03/02/17 Signed Impressions: Service Date/Time: Thursday, March 02, 2017 13:26 - CONCLUSION: Interval develop of a small left-sided pleural effusion. Pulmonary venous congestion. Edenilson Oviedo MD Lower Extremity CT 03/01/17 Signed Impressions: Service Date/Time: Wednesday, March 01, 2017 11:12 - CONCLUSION: 1. No evidence of organized fluid collections to suggest an abscess. 2. Extensive soft tissue swelling surrounding the ankle and extending to the forefoot especially along the lateral aspect. 3. No erosive or destructive bone changes. 4. Bone defects compatible with previous excision device. Blake Rider MD Ankle X-Ray 02/26/17 Signed Impressions: Service Date/Time: Sunday, February 26, 2017 17:15 - CONCLUSION: I see no retained surgical instruments. Isaac Stevenson MD FACR Upper Extremity Ultrasound 02/25/17 1734 Signed Impressions: Service Date/Time: February 17:54 - CONCLUSION: There is a thin fluid collection within the focal area of soft tissue swelling 2nd digit. Oscar Cassidy MD Hand X-Ray 02/25/17 Signed Impressions: Service Date/Time: February 18:59 - CONCLUSION: No gross bony abnormality. Oscar Cassidy MD Lower Extremity Ultrasound 02/24/17 0000 Signed Impressions: Service Date/Time: Friday, February 24, 2017 13:41 - CONCLUSION: Negative for deep venous thrombosis. Isaac Stevenson MD FACR Head CT 02/24/17 0000 Signed Impressions: Service Date/Time: Friday, February 24, 2017 16:08 - CONCLUSION: 1. No acute intracranial abnormality. 2. Probable large mucocele in the sphenoid sinus. Ty Hankins MD Abdomen/Pelvis CT 02/24/17 0000 Signed Impressions: Service Date/Time: Friday, February 24, 2017 16:16 - CONCLUSION: 1. Marked gaseous distension of large and small bowel most suggestive of ileus. 2. There is no free air. 3. 2.2 cm left adrenal mass. 4. Distended bladder. Isaac Stevenson MD FACR Physical Exam HEENT: Normocephalic; atraumatic; no jaundice CHEST: CTA CARDIAC: RRR ABDOMEN: Soft, nondistended, nontender; no hepatosplenomegaly; bowel sounds are present in all four quadrants. EXTREMITIES: No clubbing, cyanosis, or edema. SKIN: Bulky yen wrap drsg to RUE d/i, drsg to right ankle ORIF. CONCRETE ENGINEERING TECHNICIAN: Lethargic, confused. (Delia Zimmerman) Assessment and Plan Plan ASSESSMENT: - Anemia with drop in Hgb. HH on admission (02/24/17) was 13.0/39.1. This has gradually been trending down with a drop from 7.8/23.9 to 6.5/20.4 on 03/07. He was transfused one unit of PRBC and his HH is currently 7.4/22.3. - Constipation. Abdomen X-Ray (03/08/17)---> Nonspecific, negative for obstruction or ileus. S/P Golytely (03/08), (+) multiple bowel movements. - Hep C antibodies. Genotype and viral load pending. - Dysphagia, Malnutrition. Asking to for food and water. NGT out. S/P Swallow evaluation by speech therapy, recommend puree diet with thin liquids. Puree diet, calorie count in progress until 02/09, but patient has poor po intake- 0, 30%, 50% of meals. D/W Dr. Velasquez probable need for supplemental nutrition/peg. Could do tomorrow, but he also needs colonoscopy and is going for surgery later this afternoon so I don't know if he would be able to take prep tonight. Will d/w Dr. Whitney. - THADDEUS with electrolyte abnormalities. Renal following, feels this is most likely ATN. - Acute encephalopathy, likely multifactorial- dt's, sepsis. confused, but does follow commands. - Sepsis, bacteremia, septic joint. S/P exploratory wash, excisional debridement of skin, subcutaneous tissue, and extensor tenosynovium right hand. ID following, Daptomycin and Rifampin - HTN per attending. PLAN: - Plan for EGD with peg tube placement tomorrow - Obtain consents - NPO after MN - Hold lovenox after MN - Monitor HH - Transfuse as necessary - Hemoccult stool - Will consider colonoscopy early next week depending on results of EGD once peg in place and able to take bowel prep - Pt seen and examined by Dr. Whitney and myself and this note is written on his behalf (Delia Zimmerman) Physician Comments Patient seen and examined Agree with above Continue with current supportive care Monitor labs EGD with PEG placement tomorrow (Reese Whitney MD) Delia Zimmerman Mar 10, 2017 15:02 Reese Whitney MD Mar 10, 2017 18:23
--- NOTE | 2017-03-10 15:33 | HHI.PR ---
Subjective Remarks Follow up for MRSA bacteremia/septic joints, anemia, malnutrition. Patient denies any concerns. No fever, chills. He is not eating much. Objective Vitals Vital Signs Date Time Temp Pulse Resp B/P Pulse Ox O2 Delivery O2 Flow Rate FiO2 03/10/17 12:00 97.9 80 18 175/81 97 03/10/17 09:46 Room Air 21 03/10/17 08:00 97.0 83 20 129/62 97 03/10/17 04:00 98.1 80 20 134/72 100 03/10/17 00:00 98.1 75 20 123/60 100 03/09/17 20:00 Room Air 03/09/17 20:00 98.8 89 24 134/83 95 03/09/17 16:00 97.8 99 20 133/83 98 I/O 03/09/17 03/09/17 03/09/17 03/10/17 03/10/17 03/10/17 06:59 14:59 22:59 06:59 14:59 22:59 Intake Total 524 ml 240 ml 987 ml Output Total 700 ml 1250 ml 1200 ml 250 ml Balance -176 ml -1010 ml -213 ml -250 ml Intake Oral 240 ml IV Total 524 ml 987 ml Output Urine Total 700 ml 1250 ml 1200 ml 250 ml # Bowel Movements 3 3 Result Diagram: 03/10/17 1033 03/09/17 0615 Imaging Last Impressions Abdomen X-Ray 03/08/17 0000 Signed Impressions: Service Date/Time: Wednesday, March 08, 2017 10:30 - CONCLUSION: Nonspecific, negative for obstruction or ileus. Isaac Stevenson MD FACR Chest X-Ray 03/02/17 0000 Signed Impressions: Service Date/Time: Thursday, March 02, 2017 13:26 - CONCLUSION: Interval develop of a small left-sided pleural effusion. Pulmonary venous congestion. Edenilson Oviedo MD Lower Extremity CT 03/01/17 0000 Signed Impressions: Service Date/Time: Wednesday, March 01, 2017 11:12 - CONCLUSION: 1. No evidence of organized fluid collections to suggest an abscess. 2. Extensive soft tissue swelling surrounding the ankle and extending to the forefoot especially along the lateral aspect. 3. No erosive or destructive bone changes. 4. Bone defects compatible with previous excision device. Blake Rdier MD Ankle X-Ray 02/26/17 0000 Signed Impressions: Service Date/Time: Sunday, February 26, 2017 17:15 - CONCLUSION: I see no retained surgical instruments. Isaac Stevenson MD FACR Upper Extremity Ultrasound 02/25/17 1734 Signed Impressions: Service Date/Time: , February 25, 2017 17:54 - CONCLUSION: There is a thin fluid collection within the focal area of soft tissue swelling 2nd digit. Oscar Cassidy MD Hand X-Ray 02/25/17 0000 Signed Impressions: Service Date/Time: , February 25, 2017 18:59 - CONCLUSION: No gross bony abnormality. Oscar Cassidy MD Lower Extremity Ultrasound 02/24/17 0000 Signed Impressions: Service Date/Time: Friday, February 24, 2017 13:41 - CONCLUSION: Negative for deep venous thrombosis. Isaac Stevenson MD FACR Head CT 02/24/17 0000 Signed Impressions: Service Date/Time: Friday, February 24, 2017 16:08 - CONCLUSION: 1. No acute intracranial abnormality. 2. Probable large mucocele in the sphenoid sinus. Ty Hankins MD Abdomen/Pelvis CT 02/24/17 0000 Signed Impressions: Service Date/Time: Friday, February 24, 2017 16:16 - CONCLUSION: 1. Marked gaseous distension of large and small bowel most suggestive of ileus. 2. There is no free air. 3. 2.2 cm left adrenal mass. 4. Distended bladder. Isaac Stevenson MD FACR Objective Remarks GENERAL: SKIN: Warm and dry. HEAD: Normocephalic. EYES: No scleral icterus. No injection or drainage. NECK: Supple, trachea midline. No JVD or lymphadenopathy. CARDIOVASCULAR: Regular rate and rhythm without murmurs, gallops, or rubs. RESPIRATORY: Breath sounds equal bilaterally. No accessory muscle use. GASTROINTESTINAL: Abdomen soft, non-tender, nondistended. MUSCULOSKELETAL: RLE wrapped in dressing/FRANCISCO with distal edema. RUE wrapped in bulky surgical dressing, with distal edema, normal capillary refill. Left hand/ wrist wrapped in dressing BACK: Nontender without obvious deformity. No CVA tenderness. Procedures 03/10/2017 - Dr. Bullock exploration, wash, excisional debridement extensor tenosynovium right wrist/forearm/hand 03/08/17 - Dr. Bullock- exploration, wash, excisional debridement skin, subcutaneous tissue, extensor tenosynovitis right wrist and hand. Findings: necrotic tissue, minimal purulence, extensor tenosynovitis right wrist/hand 03/04/17 - Dr Gamez - Right leg and incision and drainage. Right foot delayed primary closure x3 03/04/17 - Dr. Bullock - Extensor tenosynovectomy second, third, fourth extensor compartments right wrist and excisional debridement wash index finger metacarpal phalangeal joint, excisional wash and excisional debridement left hand. 02/28/17 - Dr. Reyes - Right ankle wound debridement and washout. Implantation of antibiotic vancomycin beads. 02/28/17 - Dr. Bullock - Exploration, wash, excisional debridement index finger metacarpophalangeal joint right hand; Exploration, wash, excisional debridement metacarpophalangeal joint left index finger; Exploration, wash, excisional debridement extensor pollicis longus tendon right thumb and hand. 02/26/17 - Dr. Reyes - Right ankle incision and drainage, arthrotomy, removal infected hardware, bone biopsy. 02/26/17 - Dr. Bullock - Exploration, incision and drainage right hand abscess, Arthrotomy wash metacarpal phalangeal joint right index finger, Arthrotomy wash metacarpal phalangeal joint left index finger. A/P Problem List: (1) Sepsis ICD Code: A41.9 Status: Acute (2) Right foot infection ICD Code: L08.9 Status: Acute (3) Encephalopathy ICD Code: G93.40 Status: Acute (4) Alcoholism ICD Code: F10.20 Status: Acute Assessment and Plan 61-year-old male with history of right foot hardware, HTN, alcohol abuse, Hepatitis C, admitted with sepsis, MRSA bacteremia and septic joints, course complicated by severe agitated delirium and etoh withdrawal, improving. Sepsis with MRSA Bacteremia and Septic Joints: wound cultures from index fingers and right ankle with MRSA. Blood cultures also +MRSA. -S/p multiple surgeries with podiatry Dr. Reyes/Dr. Gamez on 02/26, 02/28, , and hand surgeon Dr. Bullock on 02/26, 02/28, 03/04, 03/08, 03/10. -Echo 02/28 negative for vegetation -Infectious disease consulted -Continue on antibiotics with IV Dapto and oral Rifampin -Per ID, will need half-way IV abx plus oral Rimfampin for 6 weeks followed by oral suppression, recommends SNF placement for concern for noncompliance -continue pain control with oxycodone prn and IV dilaudid prn Anemia: Hgb trended down to 6.5 on 03/07. -s/p 1u pRBC transfusion on 03/07, Repeat CBC with Hgb 8.3. -Iron studies consistent with chronic anemia. -Check stool hemoccult -Continue to monitor. -GI is following. Tool Planer Set Up Operator directed calorie count ordered. Currently on pureed diet with thin liquids. Acute Toxic/Metabolic Encephalopathy secondary to Sepsis and Acute Alcohol Withdrawal: admitted in ICU. -initially admitted to ICU with encephalopathy, severe agitation -symptoms improving -monitor neuro checks Moderate Protein Calorie Malnutrition: Albumin 0.9. BMI 19. NG tube was pulled out today. - Speech, GI following. Tool Planer Set Up Operator consulted. Hypernatremia: Na 152 --> 150 - Continue patient on D5W @84cc/hour. BMP in the AM. - Nephrology following. Hypertension: BP much better controlled. -continue clonidine 0.3mg tid and coreg 6.25mg bid -monitor BP, adjust antihypertensives as needed Mild Systolic CHF: Echo 02/28 with EF 40-45% and global hypokinesis -Cardiology consulted, recommends continued medical management -Continue BB, unable to have ACEi with renal insufficiency -per cardiology, start ACEi once renal function stabilized THADDEUS: Cr increased to 2, previously 0.86 on 02/28/17. -Nephrology following, likely has ATN -Continue gentle hydration -avoid nephrotoxins -monitor renal function Hepatitis C: antibody positive -GI consulted, appreciate recommendations DVT Prophylaxis: Lovenox GI Prophylaxis: Protonix Problem Qualifiers (1) Sepsis: Qualified Code: A41.9 - Sepsis, due to unspecified organism Zee Velasquez DO Mar 10, 2017 15:32
[2017-03-10] MEDS ORDERED: VANCOMYCIN HCL 1000 MG VIAL ONE (15:45)
[2017-03-10] MEDS ORDERED: SODIUM CHLORIDE 0.9% 20 ML VIAL ONE (15:45)
[2017-03-10] MEDS ORDERED: NEOMYCIN/POLYMYXIN 1 ML G.U. IRRIGANT TOPICAL ONE (15:49)
[2017-03-10] MEDS ORDERED: HYDROmorphone HCL PF 2 MG/ML VIAL ONE (16:47)
--- NOTE | 2017-03-10 17:10 | PD.POD ---
Subjective Podiatric Problems Late entry- pt was seen 03/09/17 @ 1900 S/P Right ankle HW removal and repeat washout with Dr. Reyes. Last sx was on 03/04/17 with , repeat washout delayed primary closure x 3 and insertion of absorbable abx beads. Patient is challenging to understand. He does not appear to be in distress, but does have pain during the dressing change. He currently thinks he is at his fathers house. Past Med/Surg/Social History Past Surgical History Gastrointestinal: DENIES HX OF: Colectomy, total Social History Smoking Status: Current Every Day Smoker Objective Vital Signs Vital Signs Date Time Temp Pulse Resp B/P Pulse Ox O2 Delivery O2 Flow Rate FiO2 03/10/17 12:00 97.9 80 18 175/81 97 03/10/17 09:46 Room Air 21 03/10/17 08:00 97.0 83 20 129/62 97 03/10/17 04:00 98.1 80 20 134/72 100 03/10/17 00:00 98.1 75 20 123/60 100 03/09/17 20:00 Room Air 03/09/17 20:00 98.8 89 24 134/83 95 Coded Allergies: ciprofloxacin (Unverified Adverse Reaction, Intermediate, Dizziness, ) *MDRO Multi-Drug Resistant Organism (Verified Adverse Reaction, Unknown, ) MRSA (blood)+(urine) 02/24/17, (blood) 02/25/17, 02/27/17 (finger,ankle,leg) 02/26/17, 02/28/17 MRSA PCR screen positive 02/25/17 Physical Exam Remarks All incision sites are well coapted with sutures intact, no erythema, minimal edema. Most medial incision has packing with mild serosanginous drainage, small white particles noted in the drainage likely from abx beads. Assessment & Plan A/P 1) Right ankle infected hardware, septic joint -s/p hardware removal and washout x 2 with , washout and delayed primary closure by 03/04/17 -pts infection sites all appeared encouraging and much improved today, no plans for further intervention in the near future, but will cont to monitor closely -cont iv abx -elevate legs -dressing change orders placed for nursing staff -Will close packing site at bedside once void is filled in more, no further OR plans Amparo Gamez DPM Mar 10, 2017 17:09
--- NOTE | 2017-03-10 17:16 | PD.OP ---
Operative Report Preoperative Diagnosis: (1) septic arthritis metacarpophalangeal joint right index finger (2) Infectious tenosynovitis of right wrist extensor Postoperative Diagnosis: (1) Infectious tenosynovitis of right wrist extensor (2) septic arthritis metacarpophalangeal joint right index finger Procedure: exploration, wash, excisional debridement extensor tenosynovium right wrist/ forearm/hand Anesthesia: general Surgeon: Roque Bullock Machine Load Clerk(s): dhara Operation and Findings: minimal purulence with necrotic tissue involving the extensor tendons 2nd/3rd and 4th compartments Roque Bullock MD Mar 10, 2017 17:16
[2017-03-10] MEDS ORDERED: fentaNYL CITRATE 250 MCG/5 ML AMP ONE (17:22)
[2017-03-10] MEDS ORDERED: *morphine SULFATE 8 MG/ML PERIprocedure ONLY ONE (18:12)
[2017-03-10 20:00] VITALS: BP 126/57; PULSE 72; RESP 18; TEMP 98.4; O2SAT 100
[2017-03-10] MEDS: PANTOPRAZOLE SODIUM 40 MG VIAL IV PUSH SCH ×2 (23:59)
[2017-03-11] VITALS (8 sets, daily range): BP systolic 108–142; BP diastolic 55–79; PULSE 72–89; RESP 18–20; TEMP 97.6–100.3; O2SAT 94–100
[2017-03-11] MEDS: cloNIDine HCL 0.3 MG TAB PO SCH ×3 (05:31→21:23)
--- NOTE | 2017-03-11 07:47 | MP ---
cc: ROQUE SAGASTUME MD DATE OF SURGERY March 10, 2017 PREOPERATIVE DIAGNOSIS Infectious extensor tenosynovitis right hand/wrist/forearm, septic arthritis index finger, MP joint right side. POSTOPERATIVE DIAGNOSIS Extensor tenosynovitis, infectious right wrist/forearm/hand with septic arthritis right index finger MP joint. PROCEDURE Exploration, wash, excisional debridement extensor compartments right hand/wrist/forearm. SURGEON Dr. Sagastume ANESTHESIA General. ESTIMATED BLOOD LOSS Minimal. TOURNIQUET TIME 30 minutes at 250 mmHg. SPECIMEN Discarded. DISPOSITION To PACU stable. INDICATIONS The patient is a 61-year-old male with MRSA and infection involving the right ankle and bilateral upper extremities. The patient underwent multiple exploration, excisional debridements. He was found to have infectious extensor tenosynovitis involving multiple compartments for which he underwent excisional debridement. The patient was brought in today again for excisional debridement and wash. His white count was trending normal. PROCEDURE The patient was brought to the operating room. Under general anesthesia the right upper extremity was thoroughly prepped and draped at the previously placed incision and the vessel loops holding the incision sites were removed. After limb elevation, the tourniquet was inflated to 250 mmHg. The incision was extended proximally as there was evidence of purulence within the region. On exploration there was extensive inflammatory tissue and some necrotic tissue as well as some purulence. There was necrotic tissue surrounding the extensor tendons and involving the second, third and fourth extensor compartments. The wrist joint appears to be not involved. Excisional debridement of necrotic tissue around the extensor tendons and surrounding soft tissues were carried out using a rongeur. The MP joint exposed home minimal necrosis and purulence noted. Thorough wash was given. About 2 liters of solution containing normal saline mixed with vancomycin was used in a pulse lavage fashion. The extensor pollicis longus tendon appeared partially necrotic which was debrided. The tourniquet was deflated. Total tourniquet time was 1/2-hour. He had good distal circulation after the release of the tourniquet. Bleeding points were cauterized with bipolar cautery. Skin flaps were then loosely approximated using abby and vessel loops in a shoelace pattern. Xeroform and bacitracin dressing was applied. Bulky hand dressing was applied which was held in place by bias hand wrap. The patient was recovered and sent to Recovery in stable condition. The plan will be to bring the patient in two days' time for possible closure. Roque Sagastume MD SE/UMER /5:17 PM /7:33 AM DAISY
[2017-03-11] MEDS: MULTIVITAMIN TAB PO SCH (09:21)
[2017-03-11] MEDS: LISINOPRIL 5 MG TAB PO SCH (09:21)
[2017-03-11] MEDS: CARVEDILOL 6.25 MG TAB PO SCH ×2 (09:21→21:23)
[2017-03-11] MEDS: RIFAMPIN 150 MG CAP PO SCH ×2 (09:21→21:23)
[2017-03-11] MEDS: THIAMINE HCL 100 MG TAB PO SCH (09:21)
[2017-03-11] MEDS: MUPIROCIN 2% OINT 1 APPLIC/GM SYR NASAL SCH ×2 (09:22→21:23)
--- NOTE | 2017-03-11 11:12 | HHI.PR ---
Subjective Remarks Follow up for MRSA bacteremia/septic joints, anemia, malnutrition. No fever, chills. States he should really try to eat better. Objective Vitals Vital Signs Date Time Temp Pulse Resp B/P Pulse Ox O2 Delivery O2 Flow Rate FiO2 03/11/17 08:44 76 03/11/17 08:02 98.0 83 18 122/62 98 03/11/17 07:37 Nasal Cannula 2.00 03/11/17 04:00 99.1 72 18 108/55 100 03/11/17 00:00 97.6 89 18 129/64 100 03/10/17 20:00 98.4 72 18 126/57 100 03/10/17 20:00 Room Air 03/10/17 18:27 97.4 70 18 144/84 99 Nasal Cannula 2 03/10/17 18:15 70 18 144/84 99 Nasal Cannula 2 03/10/17 18:00 74 18 163/93 99 Nasal Cannula 2 03/10/17 17:45 72 18 151/72 98 Nasal Cannula 2 03/10/17 17:30 73 18 151/72 98 Nasal Cannula 2 03/10/17 17:12 98.0 70 18 99/56 100 Nasal Cannula 2 03/10/17 12:00 97.9 80 18 175/81 97 I/O 03/10/17 03/10/17 03/10/17 03/11/17 03/11/17 03/11/17 06:59 14:59 22:59 06:59 14:59 22:59 Intake Total 1250 ml 844 ml Output Total 250 ml 1000 ml 975 ml 450 ml Balance -250 ml -1000 ml 275 ml 394 ml Intake Oral 0 ml 360 ml IV Total 50 ml 484 ml Other 1200 ml Output Urine Total 250 ml 1000 ml 325 ml 450 ml Estimated Blood Loss 50 ml Other 600 ml # Bowel Movements 1 0 0 Result Diagram: 03/10/17 1033 03/09/17 0615 Objective Remarks GENERAL: SKIN: Warm and dry. HEAD: Normocephalic. EYES: No scleral icterus. No injection or drainage. NECK: Supple, trachea midline. No JVD or lymphadenopathy. CARDIOVASCULAR: Regular rate and rhythm without murmurs, gallops, or rubs. RESPIRATORY: Breath sounds equal bilaterally. No accessory muscle use. GASTROINTESTINAL: Abdomen soft, non-tender, nondistended. MUSCULOSKELETAL: RLE wrapped in dressing/FRANCISCO with distal edema. RUE wrapped in bulky surgical dressing, with distal edema, normal capillary refill. Left hand/ wrist wrapped in dressing BACK: Nontender without obvious deformity. No CVA tenderness. Procedures 03/10/2017 - Dr. Bullock exploration, wash, excisional debridement extensor tenosynovium right wrist/forearm/hand 03/08/17 - Dr. Bullock- exploration, wash, excisional debridement skin, subcutaneous tissue, extensor tenosynovitis right wrist and hand. Findings: necrotic tissue, minimal purulence, extensor tenosynovitis right wrist/hand 03/04/17 - Dr Gamez - Right leg and incision and drainage. Right foot delayed primary closure x3 03/04/17 - Dr. Bullock - Extensor tenosynovectomy second, third, fourth extensor compartments right wrist and excisional debridement wash index finger metacarpal phalangeal joint, excisional wash and excisional debridement left hand. 02/28/17 - Dr. Reyes - Right ankle wound debridement and washout. Implantation of antibiotic vancomycin beads. 02/28/17 - Dr. Bullock - Exploration, wash, excisional debridement index finger metacarpophalangeal joint right hand; Exploration, wash, excisional debridement metacarpophalangeal joint left index finger; Exploration, wash, excisional debridement extensor pollicis longus tendon right thumb and hand. 02/26/17 - Dr. Reyes - Right ankle incision and drainage, arthrotomy, removal infected hardware, bone biopsy. 02/26/17 - Dr. Bullock - Exploration, incision and drainage right hand abscess, Arthrotomy wash metacarpal phalangeal joint right index finger, Arthrotomy wash metacarpal phalangeal joint left index finger. A/P Problem List: (1) Sepsis ICD Code: A41.9 Status: Acute (2) Right foot infection ICD Code: L08.9 Status: Acute (3) Encephalopathy ICD Code: G93.40 Status: Acute (4) Alcoholism ICD Code: F10.20 Status: Acute Assessment and Plan 61-year-old male with history of right foot hardware, HTN, alcohol abuse, Hepatitis C, admitted with sepsis, MRSA bacteremia and septic joints, course complicated by severe agitated delirium and etoh withdrawal, improving. Sepsis with MRSA Bacteremia and Septic Joints: wound cultures from index fingers and right ankle with MRSA. Blood cultures also +MRSA. -S/p multiple surgeries with podiatry Dr. Reyes/Dr. Gamez on 02/26, 02/28, , and hand surgeon Dr. Bullock on 02/26, 02/28, 03/04, 03/08, 03/10. -Echo 02/28 negative for vegetation -Infectious disease consulted -Continue on antibiotics with IV Dapto and oral Rifampin -Per ID, will need shelter IV abx plus oral Rimfampin for 6 weeks followed by oral suppression, recommends SNF placement for concern for noncompliance -continue pain control with oxycodone prn and IV dilaudid prn Anemia: Hgb trended down to 6.5 on 03/07. -s/p 1u pRBC transfusion on 03/07, Repeat CBC with Hgb 8.3. -Iron studies consistent with chronic anemia. -Check stool hemoccult -Continue to monitor. -GI is following. [employer] Dehydration Reactor Operator directed calorie count ordered. Currently on pureed diet with thin liquids. Acute Toxic/Metabolic Encephalopathy secondary to Sepsis and Acute Alcohol Withdrawal: admitted in ICU. -initially admitted to ICU with encephalopathy, severe agitation -symptoms improving -monitor neuro checks Moderate Protein Calorie Malnutrition: Albumin 0.9. BMI 19. - Speech, GI following. [employer] Dehydration Re[employer] Operator consulted. - PEG Tube placement on 03/11/2017 Hypernatremia: Na 152 --> 150 --> 144. - Currently on on D5W @84cc/hour. Will discontinue IV fluid for now. PEG tube placed on 03/11/2017. - If needed, we will administer D5+NS at a maintenance rate. - Nephrology following. Hypertension: BP much better controlled. -continue clonidine 0.3mg tid and coreg 6.25mg bid -monitor BP, adjust antihypertensives as needed Mild Systolic CHF: Echo 02/28 with EF 40-45% and global hypokinesis -Cardiology consulted, recommends continued medical management -Continue BB, unable to have ACEi with renal insufficiency -per cardiology, start ACEi once renal function stabilized THADDEUS: Cr increased to 2, previously 0.86 on 02/28/17. -Nephrology following, likely has ATN -Continue gentle hydration -avoid nephrotoxins -monitor renal function Hepatitis C: antibody positive -GI consulted, appreciate recommendations DVT Prophylaxis: Lovenox GI Prophylaxis: Protonix Problem Qualifiers (1) Sepsis: Qualified Code: A41.9 - Sepsis, due to unspecified organism Zee Velasquez DO Mar 11, 2017 11:12
[2017-03-11] MEDS: DEXTROSE 5% IN WATE 1000ML INJ 1,000 ML IV SCH ×2 (11:30→21:24)
[2017-03-11 11:53] LABS: HCV RNA PCR IU/ML 1480000 IU/mL (()); HCV RNA PCR LOGIU/ML 6.17 (())
[2017-03-11] MEDS: SODIUM CHLORIDE 0.9% IV SCH (12:24)
[2017-03-11] MEDS: DAPTOMYCIN IV SCH (12:24)
--- NOTE | 2017-03-11 12:48 | HHI.NPPN ---
Subjective History of Present Illness 61 year old male with past medical history of hypertension, history of being homeless. He was admitted on February 25 with altered mental status and leukocytosis. I was called to see the patient because of elevated BUN and creatinine. Additional Remarks This is late entry, note for 03/10/17. Patient was seen in recovery room, not in distress. Objective Data Data 03/10/17 03/11/17 19:00 07:00 Intake Total 1250 ml 844 ml Output Total 1775 ml 650 ml Balance -525 ml 194 ml Intake Oral 360 ml IV Total 50 ml 484 ml Other 1200 ml Output Urine Total 1125 ml 650 ml Estimated Blood Loss 50 ml Other 600 ml # Bowel Movements 1 0 Vital Signs Date Time Temp Pulse Resp B/P Pulse Ox O2 Delivery O2 Flow Rate FiO2 03/11/17 08:44 76 03/11/17 08:02 98.0 83 18 122/62 98 03/11/17 07:37 Nasal Cannula 2.00 03/11/17 04:00 99.1 72 18 108/55 100 03/11/17 00:00 97.6 89 18 129/64 100 03/10/17 20:00 98.4 72 18 126/57 100 03/10/17 20:00 Room Air 03/10/17 18:27 97.4 70 18 144/84 99 Nasal Cannula 2 03/10/17 18:15 70 18 144/84 99 Nasal Cannula 2 03/10/17 18:00 74 18 163/93 99 Nasal Cannula 2 03/10/17 17:45 72 18 151/72 98 Nasal Cannula 2 03/10/17 17:30 73 18 151/72 98 Nasal Cannula 2 03/10/17 17:12 98.0 70 18 99/56 100 Nasal Cannula 2 -: 03/10/17 1033 03/09/17 0615 Physical Exam General Appearance: No Acute Distress, Anxious Eyes Eye Exam: Pupils Equal Throat Throat Exam: Oral Mucosa [place] & Moist Neck Neck Exam: Neck Supple Pulmonary Resp Exam: Breath Sounds Equal, No Distress, Rhonchi, Decreased Bases Cardiology CV Exam: Regular, Normal Sinus Rhythm Gastrointestinal/Abdomen GI Exam: Soft, Non-Tender, Bowel Sounds Present Extremeties Extremities Exam: Trace Edema Neurologic Neuro Exam: Alert, Awake, Oriented Psychiatric Psych Exam: Appropriate Responses Assessment/Plan Assessment Summary: THADDEUS/Acute Renal Failure Problem List: (1) Encephalopathy (2) Essential hypertension (3) Hepatitis C, chronic (4) Abscess of right hand including fingers (5) Abscess of left hand including fingers (6) Alcoholism (7) CHF (congestive heart failure) (8) Sepsis (9) ARF (acute renal failure) Plan Patient has been non oliguric. Urine Eosinophils negative. Urine Na. is normal. Most likely has ATN. Continue gentle hydration and antibiotics. Avoid Nephrotoxins. Creatinine is stable and Na. is better, 150. on Hypotonic fluid with Kcl. Post debridement. Follow the urine out put and BMP. Avoid Nephrotoxins. No new BMP today. Problem Qualifiers (1) Sepsis: Qualified Code: A41.9 - Sepsis, due to unspecified organism Diane Barker MD Mar 11, 2017 12:48
--- NOTE | 2017-03-11 12:49 | HHI.NPPN ---
Subjective History of Present Illness 61 year old male with past medical history of hypertension, history of being homeless. He was admitted on February 25 with altered mental status and leukocytosis. I was called to see the patient because of elevated BUN and creatinine. Additional Remarks Patient is alert, remain confused, not in distress. Objective Data Data 03/10/17 03/11/17 19:00 07:00 Intake Total 1250 ml 844 ml Output Total 1775 ml 650 ml Balance -525 ml 194 ml Intake Oral 360 ml IV Total 50 ml 484 ml Other 1200 ml Output Urine Total 1125 ml 650 ml Estimated Blood Loss 50 ml Other 600 ml # Bowel Movements 1 0 Vital Signs Date Time Temp Pulse Resp B/P Pulse Ox O2 Delivery O2 Flow Rate FiO2 03/11/17 08:44 76 03/11/17 08:02 98.0 83 18 122/62 98 03/11/17 07:37 Nasal Cannula 2.00 03/11/17 04:00 99.1 72 18 108/55 100 03/11/17 00:00 97.6 89 18 129/64 100 03/10/17 20:00 98.4 72 18 126/57 100 03/10/17 20:00 Room Air 03/10/17 18:27 97.4 70 18 144/84 99 Nasal Cannula 2 03/10/17 18:15 70 18 144/84 99 Nasal Cannula 2 03/10/17 18:00 74 18 163/93 99 Nasal Cannula 2 03/10/17 17:45 72 18 151/72 98 Nasal Cannula 2 03/10/17 17:30 73 18 151/72 98 Nasal Cannula 2 03/10/17 17:12 98.0 70 18 99/56 100 Nasal Cannula 2 -: 03/10/17 1033 03/09/17 0615 Physical Exam General Appearance: No Acute Distress, Anxious Eyes Eye Exam: Pupils Equal Throat Throat Exam: Oral Mucosa [place] & Moist Neck Neck Exam: Neck Supple Pulmonary Resp Exam: Breath Sounds Equal, No Distress, Rhonchi, Decreased Bases Cardiology CV Exam: Regular, Normal Sinus Rhythm Gastrointestinal/Abdomen GI Exam: Soft, Non-Tender, Bowel Sounds Present Extremeties Extremities Exam: Trace Edema Neurologic Neuro Exam: Alert, Awake, Oriented Psychiatric Psych Exam: Appropriate Responses Assessment/Plan Assessment Summary: THADDEUS/Acute Renal Failure Problem List: (1) Encephalopathy (2) Essential hypertension (3) Hepatitis C, chronic (4) Abscess of right hand including fingers (5) Abscess of left hand including fingers (6) Alcoholism (7) CHF (congestive heart failure) (8) Sepsis (9) ARF (acute renal failure) Plan Patient has been non oliguric. Urine Eosinophils negative. Urine Na. is normal. Most likely has ATN. Continue gentle hydration and antibiotics. Avoid Nephrotoxins. Creatinine is stable and Na. is better, 150. on Hypotonic fluid with Kcl. Post debridement. Follow the urine out put and BMP. Avoid Nephrotoxins. No new BMP today, will oreder one for AM. Problem Qualifiers (1) Sepsis: Qualified Code: A41.9 - Sepsis, due to unspecified organism Diane Barker MD Mar 11, 2017 12:48
--- NOTE | 2017-03-11 13:23 | PD.CARD.PN ---
Subjective Subjective Remarks No CP or SOB, feels better, no pain Objective Medications Current Medications Medications (Trade) Dose Ordered Sig/Kayla Route Start Time Stop Time Status Last Admin (NS Flush) 2 ml UNSCH PRN IV FLUSH 02/24/17 13:45 02/24/17 13:38 (Zofran Inj) 4 mg Q8HR PRN IV PUSH 02/24/17 18:00 (Vitamin B1) 100 mg DAILY PO 02/25/17 09:00 03/11/17 09:21 (Romazicon Inj) 0.2 mg Q1M PRN IV PUSH 02/25/17 09:15 (Ativan) 1 mg Q4H PRN PO 02/25/17 09:15 03/04/17 09:13 (Ativan Inj) 1 mg Q4H PRN IV PUSH 02/25/17 09:15 03/05/17 02:41 (Theragran) 1 tab DAILY PO 02/26/17 09:00 03/11/17 09:21 (Tylenol) 650 mg Q4H PRN PO 02/25/17 09:15 03/07/17 04:47 (Ofirmev Inj) 650 mg Q6H PRN IV 02/25/17 21:00 03/06/17 20:12 (Trandate Inj) 10 mg Q6H PRN IV PUSH 02/25/17 23:15 (Protonix Inj) 40 mg Q24H IV PUSH 02/26/17 00:00 03/10/17 23:59 Miscellaneous Information Patient in critical care unit? Ass... Q361D .XX 02/26/17 07:15 (Bactroban Nasal 2% Oint) 1 applic BID NASAL 02/26/17 09:00 03/11/17 09:22 (Catapres) 0.3 mg Q8HR PO 02/26/17 22:11 03/11/17 05:31 (Roxicodone) 5 mg Q4H PRN PO 02/28/17 07:45 03/10/17 23:56 (Dilaudid Pf Inj) 0.5 mg Q3H PRN IV PUSH 02/28/17 07:45 03/08/17 22:50 (Rifampin) 300 mg Q12HR PO 03/02/17 21:00 03/11/17 09:21 Carvedilol 6.25 mg 6.25 mg Q12HR PO 03/03/17 21:00 03/11/17 09:21 (Cubicin Inj/NS Inj) 100 ml @ 200 mls/hr Q24H IV 03/06/17 12:00 03/11/17 12:24 (Dulcolax Supp) 10 mg DAILY PRN RECTAL 03/06/17 21:00 (Lactulose Liq) 30 ml DAILY PRN NG 03/06/17 21:00 03/07/17 18:45 (Colace Liq) 100 mg Q12HR PO 03/06/17 21:15 Hold 03/09/17 09:30 (Prinivil) 2.5 mg DAILY PO 03/09/17 09:00 03/11/17 09:21 Miscellaneous 1 ea 1 ea UNSCH PRN OTHER 03/08/17 21:15 (D5W 1000 ml Inj) 1,000 ml @ 84 mls/hr [id number] IV 03/09/17 23:45 03/10/17 23:58 (Lovenox Inj) 40 mg Q24H SQ 03/10/17 13:00 Hold Miscellaneous Information ALL NURSING DEPARTME... UNSCH PRN .XX 03/10/17 14:30 03/11/17 14:29 Vital Signs / I&O Vital Signs Date Time Temp Pulse Resp B/P Pulse Ox O2 Delivery O2 Flow Rate FiO2 03/11/17 08:44 76 03/11/17 08:02 98.0 83 18 122/62 98 03/11/17 07:37 Nasal Cannula 2.00 03/11/17 04:00 99.1 72 18 108/55 100 03/11/17 00:00 97.6 89 18 129/64 100 03/10/17 20:00 98.4 72 18 126/57 100 03/10/17 20:00 Room Air 03/10/17 18:27 97.4 70 18 144/84 99 Nasal Cannula 2 03/10/17 18:15 70 18 144/84 99 Nasal Cannula 2 03/10/17 18:00 74 18 163/93 99 Nasal Cannula 2 03/10/17 17:45 72 18 151/72 98 Nasal Cannula 2 03/10/17 17:30 73 18 151/72 98 Nasal Cannula 2 03/10/17 17:12 98.0 70 18 99/56 100 Nasal Cannula 2 I/O 03/10/17 03/10/17 03/10/17 03/11/17 03/11/17 03/11/17 07:00 15:00 23:00 07:00 15:00 23:00 Intake Total 1250 ml 844 ml Output Total 250 ml 1000 ml 975 ml 450 ml Balance -250 ml -1000 ml 275 ml 394 ml Intake Oral 0 ml 360 ml IV Total 50 ml 484 ml Other 1200 ml Output Urine Total 250 ml 1000 ml 325 ml 450 ml Estimated Blood Loss 50 ml Other 600 ml # Bowel Movements 1 0 0 Physical Exam GENERAL: In NAD SKIN: Warm and dry. HEAD: Normocephalic. EYES: No scleral icterus. No injection or drainage. NECK: Supple, trachea midline. No JVD or lymphadenopathy. CARDIOVASCULAR: Regular rate and rhythm without murmurs, gallops, or rubs. RESPIRATORY: Breath sounds equal bilaterally. No accessory muscle use. GASTROINTESTINAL: Abdomen soft, non-tender, nondistended. MUSCULOSKELETAL: No cyanosis, or edema. Laboratory Laboratory Tests Test 03/07/17 03/07/17 03/07/17 03/08/17 08:30 17:15 20:18 04:32 Iron Level 15 MCG/DL Total Iron Binding Capacity 90 MCG/DL Percent Iron Saturation 16.7 % Ferritin 368 NG/ML Reticulocyte Count 0.8 % Absolute Reticulocyte Count 18.9 MIL/L Blood Type B NEGATIVE Antibody Screen NEGATIVE Crossmatch Leukocyte-Reduced Red Blood Cells Blood Bank Comment Phosphorus Level 4.7 MG/DL Magnesium Level 2.3 MG/DL Test 03/09/17 03/09/17 03/10/17 06:15 06:30 10:33 Sodium Level 150 MEQ/L Potassium Level 3.8 MEQ/L Chloride Level 112 MEQ/L Carbon Dioxide Level 31.1 MEQ/L Anion Gap 7 MEQ/L Blood Urea Nitrogen 55 MG/DL Creatinine 2.16 MG/DL Estimat Glomerular Filtration 31 ML/MIN Rate Random Glucose 89 MG/DL Calcium Level 9.9 MG/DL Total Bilirubin 0.4 MG/DL Aspartate Amino Transf 43 U/L (AST/SGOT) Alanine Aminotransferase 21 U/L (ALT/SGPT) Alkaline Phosphatase 81 U/L Total Creatine Kinase 167 U/L Total Protein 6.4 GM/DL Albumin 1.1 GM/DL Hepatitis C RNA (PCR) IUs/ml [id number] IU/mL Hepatitis C RNA (PCR) log 6.17 IUs/ml White Blood Count 8.6 TH/MM3 Red Blood Count 2.55 MIL/MM3 Hemoglobin 7.4 GM/DL Hematocrit 22.3 % Mean Corpuscular Volume 87.4 FL Mean Corpuscular Hemoglobin 29.0 PG Mean Corpuscular Hemoglobin 33.2 % Concent Red Cell Distribution Width 14.2 % Platelet Count 204 TH/MM3 Mean Platelet Volume 10.6 FL Neutrophils (%) (Auto) 78.8 % Lymphocytes (%) (Auto) 13.5 % Monocytes (%) (Auto) 6.1 % Eosinophils (%) (Auto) 1.2 % Basophils (%) (Auto) 0.4 % Neutrophils # (Auto) 6.7 TH/MM3 Lymphocytes # (Auto) 1.2 TH/MM3 Monocytes # (Auto) 0.5 TH/MM3 Eosinophils # (Auto) 0.1 TH/MM3 Basophils # (Auto) 0.0 TH/MM3 CBC Comment DIFF FINAL Differential Comment Imaging Last Impressions Abdomen X-Ray 03/08/17 0000 Signed Impressions: Service Date/Time: Wednesday, March 08, 2017 10:30 - CONCLUSION: Nonspecific, negative for obstruction or ileus. Isaac Stevenson MD FACR Chest X-Ray 03/02/17 0000 Signed Impressions: Service Date/Time: Thursday, March 02, 2017 13:26 - CONCLUSION: Interval develop of a small left-sided pleural effusion. Pulmonary venous congestion. Edenilson Oviedo MD Lower Extremity CT 03/01/17 0000 Signed Impressions: Service Date/Time: Wednesday, March 01, 2017 11:12 - CONCLUSION: 1. No evidence of organized fluid collections to suggest an abscess. 2. Extensive soft tissue swelling surrounding the ankle and extending to the forefoot especially along the lateral aspect. 3. No erosive or destructive bone changes. 4. Bone defects compatible with previous excision device. Blake Rider MD Ankle X-Ray 02/26/17 0000 Signed Impressions: Service Date/Time: Sunday, February 26, 2017 17:15 - CONCLUSION: I see no retained surgical instruments. Isaac Stevenson MD FACR Upper Extremity Ultrasound 02/25/17 1264 Signed Impressions: Service Date/Time: February 17:54 - CONCLUSION: There is a thin fluid collection within the focal area of soft tissue swelling 2nd digit. Oscar Cassidy MD Hand X-Ray 02/25/17 0000 Signed Impressions: Service Date/Time: , February 25, 2017 18:59 - CONCLUSION: No gross bony abnormality. Oscar Cassidy MD Lower Extremity Ultrasound 02/24/17 0000 Signed Impressions: Service Date/Time: Friday, February 24, 2017 13:41 - CONCLUSION: Negative for deep venous thrombosis. Isaac Stevenson MD FACR Head CT 02/24/17 0000 Signed Impressions: Service Date/Time: Friday, February 24, 2017 16:08 - CONCLUSION: 1. No acute intracranial abnormality. 2. Probable large mucocele in the sphenoid sinus. Ty Hankins MD Abdomen/Pelvis CT 02/24/17 0000 Signed Impressions: Service Date/Time: Friday, February 24, 2017 16:16 - CONCLUSION: 1. Marked gaseous distension of large and small bowel most suggestive of ileus. 2. There is no free air. 3. 2.2 cm left adrenal mass. 4. Distended bladder. Isaac Stevenson MD FACR Assessment and Plan Problem List: (1) CHF (congestive heart failure) (2) Cardiomyopathy (3) ARF (acute renal failure) (4) Alcoholism (5) Tobacco use disorder (6) Sepsis Assessment and Plan Remains stable from cardiac standpoint. Continue CHF management including carvedilol. Continue monitoring on tele. Titrate lisinopril as tolerated; continue to monitor renal fx. Increase activity, PT. Problem Qualifiers (1) Sepsis: Qualified Code: A41.9 - Sepsis, due to unspecified organism Raquel Escobar MD Mar 11, 2017 13:23
[2017-03-11 13:31] LABS: BICARBONATE 30.4 MEQ/L (21.0-32.0); POTASSIUM 3.3 MEQ/L (3.5-5.1)
[2017-03-11] MEDS ORDERED: SUCCINYLCHOLINE CHLORIDE 200 MG/10 ML VIAL IV PUSH ONE (15:27)
[2017-03-11] MEDS ORDERED: PROPOFOL 200 MG/20 ML AMP IV PUSH ONE (15:29)
[2017-03-11] MEDS ORDERED: DO NOT ADM ANY ANTICOAGULANT DRUGS PRN (16:00)
[2017-03-11] MEDS ORDERED: DIMETHICONE/OXYBENZONE/PADMIATE LIP BALM 4.25 GM TOPICAL ONE (16:02)
--- NOTE | 2017-03-11 16:18 | PD.PROCEDR ---
GI Procedure REFERRING PHYSICIAN Dr. Oleary PROCEDURE PERFORMED EGD with PEG placement INDICATION FOR PROCEDURE Anemia with dysphagia and poor oral intake PROCEDURE: The procedure, risks and benefits were discussed with Mr. Aguiar and informed consent was obtained. Anesthesia sedated him with Diprivan. He was placed in the left lateral decubitus position. EGD: The Pentax videoscope was introduced through the oropharynx and advanced to the second portion of the duodenum under direct visualization. Retroflexion was performed in the stomach. FINDINGS: The esophagus this was normal Stomach there was some evidence of heme in the stomach although a small amount but no obvious lesion was noted otherwise the gastric mucosa was normal Duodenum this was normal Following the evaluation of the stomach and the duodenum the stomach was insufflated with air and the area of PEG placement was identified through indentation and transillumination the area was prepped and draped in usual fashion 5 cc of lidocaine were injected locally a small incision was made then an Angiocath was passed into the stomach through which a guidewire was passed this was retrieved with the scope into that a PEG tube was attached and pulled into place and thereafter secured in usual fashion The patient tolerated procedure well and there are no immediate complications ESTIMATED BLOOD LOSS: None SPECIMENS REMOVED: None COMPLICATIONS: None IMPRESSION: Unremarkable EGD Successful PEG placement PLAN: 1. May use PEG tube for medications today 2. May start feeding tomorrow 3. May obtain nutritional consult for tube feeding 4. Flush tube with 50 cc of water every 4-6 hours 5. Always flush tube after feedings 6. Apply abdominal binder as necessary 7. Clamp G-tube after use and flush. Reese Whitney MD Mar 11, 2017 16:17
--- NOTE | 2017-03-11 16:30 | HHI.IDPN ---
Subjective Subjective Remarks is a 61 y/o CM with PMHx of right foot hardware, hypertension, alcoholism, Hepatitis C who was admitted with sepsis, acute metabolic encephalopathy ? DTs. Removal of hardware from r. ankle 02/27. Noted to have a pocket of pus adjacent to and in contact with the hardware. Could not remove all of the wires per podiatry. Embedded in deep tissue. Culture form both index fingers has MRSA. R ankle culture - and distal fibula 02/26, 02/28 MRSA. Blood culture 02/24, 02/25, 02/27 - MRSA. 2D ECHO - No vegetations noted. Overnight events reviewed. s/p debridement of the hands 02/26/17. No fever No rash No diarrhea Antibiotics Dapto IV Rifampin oral. Lines Line sites with no e.o infection Past Medical History hypertension alcoholism Hepatitis C right foot surgery with hardware in place. Allergies: Coded Allergies: ciprofloxacin (Unverified Adverse Reaction, Intermediate, Dizziness, ) *MDRO Multi-Drug Resistant Organism (Verified Adverse Reaction, Unknown, ) MRSA (blood)+(urine) 02/24/17, (blood) 02/25/17, 02/27/17 (finger,ankle,leg) 02/26/17, 02/28/17 MRSA PCR screen positive 02/25/17 Objective . Vital Signs Date Time Temp Pulse Resp B/P Pulse Ox O2 Delivery O2 Flow Rate FiO2 03/11/17 14:33 95 Nasal Cannula 2.00 03/11/17 12:02 100.3 77 18 134/72 99 03/11/17 08:44 76 03/11/17 08:02 98.0 83 18 122/62 98 03/11/17 07:37 Nasal Cannula 2.00 03/11/17 04:00 99.1 72 18 108/55 100 03/11/17 00:00 97.6 89 18 129/64 100 03/10/17 20:00 98.4 72 18 126/57 100 03/10/17 20:00 Room Air 03/10/17 18:27 97.4 70 18 144/84 99 Nasal Cannula 2 03/10/17 18:15 70 18 144/84 99 Nasal Cannula 2 03/10/17 18:00 74 18 163/93 99 Nasal Cannula 2 8/16/17 17:45 72 18 151/72 98 Nasal Cannula 2 03/10/17 17:30 73 18 151/72 98 Nasal Cannula 2 03/10/17 17:12 98.0 70 18 99/56 100 Nasal Cannula 2 03/10/17 03/10/17 03/11/17 14:59 22:59 06:59 Intake Total 1250 ml 844 ml Output Total 1000 ml 975 ml 450 ml Balance -1000 ml 275 ml 394 ml Intake Oral 0 ml 360 ml IV Total 50 ml 484 ml Other 1200 ml Output Urine Total 1000 ml 325 ml 450 ml Estimated Blood Loss 50 ml Other 600 ml # Bowel Movements 1 0 0 . Laboratory Tests Test 03/10/17 10:33 White Blood Count 8.6 TH/MM3 Red Blood Count 2.55 MIL/MM3 Hemoglobin 7.4 GM/DL Hematocrit 22.3 % Mean Corpuscular Volume 87.4 FL Mean Corpuscular Hemoglobin 29.0 PG Mean Corpuscular Hemoglobin 33.2 % Concent Red Cell Distribution Width 14.2 % Platelet Count 204 TH/MM3 Mean Platelet Volume 10.6 FL Neutrophils (%) (Auto) 78.8 % Lymphocytes (%) (Auto) 13.5 % Monocytes (%) (Auto) 6.1 % Eosinophils (%) (Auto) 1.2 % Basophils (%) (Auto) 0.4 % Neutrophils # (Auto) 6.7 TH/MM3 Lymphocytes # (Auto) 1.2 TH/MM3 Monocytes # (Auto) 0.5 TH/MM3 Eosinophils # (Auto) 0.1 TH/MM3 Basophils # (Auto) 0.0 TH/MM3 CBC Comment DIFF FINAL Differential Comment Laboratory Tests Test 03/11/17 11:32 Sodium Level 144 MEQ/L Potassium Level 3.3 MEQ/L Chloride Level 107 MEQ/L Carbon Dioxide Level 30.4 MEQ/L Anion Gap 7 MEQ/L Blood Urea Nitrogen 46 MG/DL Creatinine 2.00 MG/DL Estimat Glomerular Filtration 34 ML/MIN Rate Random Glucose 113 MG/DL Calcium Level 9.1 MG/DL Imaging Last Impressions Chest X-Ray 03/02/17 0000 Signed Impressions: Service Date/Time: Thursday, March 02, 2017 13:26 - CONCLUSION: Interval develop of a small left-sided pleural effusion. Pulmonary venous congestion. Edenilson Oviedo MD Lower Extremity CT 8/7/17 0000 Signed Impressions: Service Date/Time: Wednesday, March 01, 2017 11:12 - CONCLUSION: 1. No evidence of organized fluid collections to suggest an abscess. 2. Extensive soft tissue swelling surrounding the ankle and extending to the forefoot especially along the lateral aspect. 3. No erosive or destructive bone changes. 4. Bone defects compatible with previous excision device. Blake Rider MD Ankle X-Ray 02/26/17 Signed Impressions: Service Date/Time: Sunday, February 26, 2017 17:15 - CONCLUSION: I see no retained surgical instruments. Isaac Stevenson MD FACR Abdomen X-Ray 02/26/17 Signed Impressions: Service Date/Time: Monday, February 27, 2017 00:36 - CONCLUSION: Nasogastric tube within the stomach Harry Lucio MD Upper Extremity Ultrasound 02/25/174 Signed Impressions: Service Date/Time: February 17:54 - CONCLUSION: There is a thin fluid collection within the focal area of soft tissue swelling 2nd digit. Oscar Cassidy MD Hand X-Ray 02/25/17 Signed Impressions: Service Date/Time: February 18:59 - CONCLUSION: No gross bony abnormality. Oscar Cassidy MD Lower Extremity Ultrasound 02/24/17 Signed Impressions: Service Date/Time: Friday, February 24, 2017 13:41 - CONCLUSION: Negative for deep venous thrombosis. Isaac Stevenson MD FACR Head CT 02/24/17 Signed Impressions: Service Date/Time: Friday, February 24, 2017 16:08 - CONCLUSION: 1. No acute intracranial abnormality. 2. Probable large mucocele in the sphenoid sinus. Ty Hankins MD Abdomen/Pelvis CT 02/24/17 0000 Signed Impressions: Service Date/Time: Friday, February 24, 2017 16:16 - CONCLUSION: 1. Marked gaseous distension of large and small bowel most suggestive of ileus. 2. There is no free air. 3. 2.2 cm left adrenal mass. 4. Distended bladder. Isaac Stevenson MD FACR Physical Exam GENERAL: This is a well-nourished, well-developed patient, in no apparent distress. SKIN: No rashes, ecchymoses or lesions. Cool and dry. HEAD: Atraumatic. Normocephalic. No temporal or scalp tenderness. EYES: Pupils equal round and reactive. Extraocular motions intact. No scleral icterus. No injection or drainage. ENT: Nose without bleeding, purulent drainage or septal hematoma. Throat without erythema, tonsillar hypertrophy or exudate. Uvula midline. Airway patent. NECK: Trachea midline. Supple, nontender, no meningeal signs. CARDIOVASCULAR: Regular rate and rhythm without murmurs, gallops, or rubs. RESPIRATORY: Clear to auscultation. Breath sounds equal bilaterally. No wheezes , rales, or rhonchi. GASTROINTESTINAL: Abdomen soft, non-tender, nondistended. MUSCULOSKELETAL: Rt foot with swelling and warmth and fluctuance noted. Bilateral UE with warmth and swelling around knuckles noted. NEUROLOGICAL: Lethargic, awakens on command but drifts back to sleep. 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 distant showering of emboli to other joints. s/p partial removal of hardware. Deeper hardware embedded. MRSA bacteremia Right ankle hardware infection Bilateral UE hand abscess/cellulitis. Leucocytosis: increase today ? Post Acute metabolic encephalopathy: ? infection, metabolic Acute renal failure: ? vanco induced. hypertension alcoholism Hepatitis C Recs Continue Dapto IV (ASP: ? Vanco induced renal failure). d/w Clinical pharmacist to dose at 8 mg/kg IV q48hrs. Continue Rifampin oral for hardware infection right foot. Follow LFTs every week and prn. Check CBC with diff, Cr, LFTs and CRP every week. To be ordered and followed by hospitalist. Follow cultures Follow clinically. Case management note: Will need IV antibiotics plus Rifampin oral for 6 weeks followed by oral suppression. Consider SNF placement as patient has alcoholism history and may not be compliant with medications/antibiotics. Sunshine Keene MD Mar 11, 2017 16:30
[2017-03-11 17:52] LABS: HEPATITIS C RNA GENOTYPE 1a (())
[2017-03-12] VITALS (9 sets, daily range): BP systolic 105–136; BP diastolic 56–74; PULSE 18–85; RESP 18–20; TEMP 97.7–99.6; O2SAT 96–100
[2017-03-12] MEDS: PANTOPRAZOLE SODIUM 40 MG VIAL IV PUSH SCH ×2 (00:34→23:09)
[2017-03-12] MEDS: cloNIDine HCL 0.3 MG TAB PO SCH ×3 (06:09→23:07)
[2017-03-12] MEDS: LISINOPRIL 5 MG TAB PO SCH (08:28)
[2017-03-12] MEDS: MULTIVITAMIN TAB PO SCH (08:28)
[2017-03-12] MEDS: CARVEDILOL 6.25 MG TAB PO SCH ×2 (08:28→23:08)
[2017-03-12] MEDS: RIFAMPIN 150 MG CAP PO SCH ×2 (08:28→23:07)
[2017-03-12] MEDS: THIAMINE HCL 100 MG TAB PO SCH (08:28)
[2017-03-12] MEDS: MUPIROCIN 2% OINT 1 APPLIC/GM SYR NASAL SCH ×2 (08:29→23:08)
--- NOTE | 2017-03-12 09:11 | PD.CARD.PN ---
Subjective Subjective Remarks No CP or SOB, no c/o Objective Medications Current Medications Medications (Trade) Dose Ordered Sig/Kayla Route Start Time Stop Time Status Last Admin (NS Flush) 2 ml UNSCH PRN IV FLUSH 02/24/17 13:45 02/24/17 13:38 (Zofran Inj) 4 mg Q8HR PRN IV PUSH 02/24/17 18:00 (Vitamin B1) 100 mg DAILY PO 02/25/17 09:00 03/11/17 09:21 (Romazicon Inj) 0.2 mg Q1M PRN IV PUSH 02/25/17 09:15 (Ativan) 1 mg Q4H PRN PO 02/25/17 09:15 03/04/17 09:13 (Ativan Inj) 1 mg Q4H PRN IV PUSH 02/25/17 09:15 03/05/17 02:41 (Theragran) 1 tab DAILY PO 02/26/17 09:00 03/11/17 09:21 (Tylenol) 650 mg Q4H PRN PO 02/25/17 09:15 03/07/17 04:47 (Ofirmev Inj) 650 mg Q6H PRN IV 02/25/17 21:00 03/06/17 20:12 (Trandate Inj) 10 mg Q6H PRN IV PUSH 02/25/17 23:15 (Protonix Inj) 40 mg Q24H IV PUSH 02/26/17 00:00 03/12/17 00:34 Miscellaneous Information Patient in critical care unit? Ass... Q361D .XX 02/26/17 07:15 (Bactroban Nasal 2% Oint) 1 applic BID NASAL 02/26/17 09:00 03/12/17 08:29 (Catapres) 0.3 mg Q8HR PO 02/26/17 22:11 03/12/17 06:09 (Roxicodone) 5 mg Q4H PRN PO 02/28/17 07:45 03/11/17 21:23 (Dilaudid Pf Inj) 0.5 mg Q3H PRN IV PUSH 02/28/17 07:45 03/08/17 22:50 (Rifampin) 300 mg Q12HR PO 03/02/17 21:00 03/11/17 21:23 Carvedilol 6.25 mg 6.25 mg Q12HR PO 03/03/17 21:00 03/11/17 21:23 (Cubicin Inj/NS Inj) 100 ml @ 200 mls/hr Q24H IV 03/06/17 12:00 03/11/17 12:24 (Dulcolax Supp) 10 mg DAILY PRN RECTAL 03/06/17 21:00 (Lactulose Liq) 30 ml DAILY PRN NG 03/06/17 21:00 03/07/17 18:45 (Colace Liq) 100 mg Q12HR PO 03/06/17 21:15 Hold 03/09/17 09:30 (Prinivil) 2.5 mg DAILY PO 03/09/17 09:00 03/11/17 09:21 (Pill Splitter) 1 ea UNSCH PRN OTHER 03/08/17 21:15 (Lovenox Inj) 40 mg Q24H SQ 03/10/17 13:00 Hold Miscellaneous Information ALL NURSING DEPARTME... UNSCH PRN .XX 03/11/17 16:00 03/12/17 15:59 Vital Signs / I&O Vital Signs Date Time Temp Pulse Resp B/P Pulse Ox O2 Delivery O2 Flow Rate FiO2 03/12/17 07:38 Nasal Cannula 2.00 03/12/17 04:00 98.1 73 20 126/60 99 03/12/17 00:00 98.0 79 20 105/56 100 03/12/17 00:00 Nasal Cannula 2.00 03/11/17 20:00 Nasal Cannula 2.00 03/11/17 20:00 97.8 85 20 132/79 94 03/11/17 16:30 78 16 122/65 96 Nasal Cannula 2 03/11/17 16:15 78 16 124/63 95 Nasal Cannula 2 03/11/17 16:01 99.3 85 18 142/70 97 03/11/17 16:00 76 16 121/72 96 Nasal Cannula 2 03/11/17 15:54 97.7 80 16 121/78 96 Nasal Cannula 2 03/11/17 14:33 95 Nasal Cannula 2.00 03/11/17 12:02 100.3 77 18 134/72 99 I/O 03/11/17 03/11/17 03/11/17 03/12/1717 8/18/17 07:00 15:00 23:00 07:00 15:00 23:00 Intake Total 844 ml 928 ml 797 ml 603 ml Output Total 450 ml 300 ml 1250 ml 550 ml Balance 394 ml 628 ml -453 ml 53 ml Intake Oral 360 ml 240 ml 120 ml 10 ml IV Total 484 ml 688 ml 527 ml 593 ml Other 150 ml Output Urine Total 450 ml 300 ml 1250 ml 550 ml # Bowel Movements 0 0 Physical Exam GENERAL: In NAD SKIN: Warm and dry. HEAD: Normocephalic. EYES: No scleral icterus. No injection or drainage. NECK: Supple, trachea midline. No JVD or lymphadenopathy. CARDIOVASCULAR: Regular rate and rhythm without murmurs, gallops, or rubs. RESPIRATORY: Breath sounds equal bilaterally. No accessory muscle use. GASTROINTESTINAL: Abdomen soft, non-tender, nondistended. MUSCULOSKELETAL: No cyanosis, or edema. Laboratory Laboratory Tests Test 03/11/17 11:32 Sodium Level 144 MEQ/L Potassium Level 3.3 MEQ/L Chloride Level 107 MEQ/L Carbon Dioxide Level 30.4 MEQ/L Anion Gap 7 MEQ/L Blood Urea Nitrogen 46 MG/DL Creatinine 2.00 MG/DL Estimat Glomerular Filtration 34 ML/MIN Rate Random Glucose 113 MG/DL Calcium Level 9.1 MG/DL Imaging Last Impressions Abdomen X-Ray 03/08/17 0000 Signed Impressions: Service Date/Time: Wednesday, March 08, 2017 10:30 - CONCLUSION: Nonspecific, negative for obstruction or ileus. Isaac Stevenson MD FACR Chest X-Ray 03/02/17 0000 Signed Impressions: Service Date/Time: Thursday, March 02, 2017 13:26 - CONCLUSION: Interval develop of a small left-sided pleural effusion. Pulmonary venous congestion. Edenilson Oviedo MD Lower Extremity CT 03/01/17 0000 Signed Impressions: Service Date/Time: Wednesday, March 01, 2017 11:12 - CONCLUSION: 1. No evidence of organized fluid collections to suggest an abscess. 2. Extensive soft tissue swelling surrounding the ankle and extending to the forefoot especially along the lateral aspect. 3. No erosive or destructive bone changes. 4. Bone defects compatible with previous excision device. Blake Rider MD Ankle X-Ray 02/26/17 0000 Signed Impressions: Service Date/Time: Sunday, February 26, 2017 17:15 - CONCLUSION: I see no retained surgical instruments. Isaac Stevenson MD FACR Upper Extremity Ultrasound 02/25/17 1734 Signed Impressions: Service Date/Time: February 17:54 - CONCLUSION: There is a thin fluid collection within the focal area of soft tissue swelling 2nd digit. Oscar Cassidy MD Hand X-Ray 02/25/17 0000 Signed Impressions: Service Date/Time: February 18:59 - CONCLUSION: No gross bony abnormality. Oscar Cassidy MD Lower Extremity Ultrasound 02/24/17 0000 Signed Impressions: Service Date/Time: Friday, February 24, 2017 13:41 - CONCLUSION: Negative for deep venous thrombosis. Isaac Stevenson MD FACR Head CT 02/24/17 0000 Signed Impressions: Service Date/Time: Friday, February 24, 2017 16:08 - CONCLUSION: 1. No acute intracranial abnormality. 2. Probable large mucocele in the sphenoid sinus. Ty Hankins MD Abdomen/Pelvis CT 02/24/17 0000 Signed Impressions: Service Date/Time: Friday, February 24, 2017 16:16 - CONCLUSION: 1. Marked gaseous distension of large and small bowel most suggestive of ileus. 2. There is no free air. 3. 2.2 cm left adrenal mass. 4. Distended bladder. Isaac Stevenson MD FACR Assessment and Plan Problem List: (1) CHF (congestive heart failure) (2) Cardiomyopathy (3) ARF (acute renal failure) (4) Alcoholism (5) Tobacco use disorder (6) Sepsis Assessment and Plan No new cardiac issues. Remains stable from cardiac standpoint. Continue CHF management including carvedilol. Continue monitoring on tele. Titrate lisinopril as tolerated; continue to monitor renal fx. Increase activity, PT. Back to OR for hand surgery this PM. Problem Qualifiers (1) Sepsis: Qualified Code: A41.9 - Sepsis, due to unspecified organism Raquel Escobar MD Mar 12, 2017 09:11
[2017-03-12 09:34] LABS: MEAN CELL VOLUME 88.6 FL (80.0-100.0); MEAN CORPUSCULAR HEMOGLOBIN 29.3 PG (27.0-34.0); MEAN CORPUSCULAR HGB CONC 33.1 % (32.0-36.0); PLATELET COUNT 219 TH/MM3 (150-450); RED BLOOD COUNT 2.28 MIL/MM3 (4.50-5.90); RED CELL DISTRIBUTION WIDTH 14.1 % (11.6-17.2)
[2017-03-12 09:41] LABS: REVIEW FLAG FINAL
[2017-03-12 09:52] LABS: BICARBONATE 30.9 MEQ/L (21.0-32.0)
[2017-03-12 09:53] LABS: HEMATOCRIT 20.2 % (39.0-51.0)
[2017-03-12] MEDS ORDERED: ACETAMINOPHEN 325 MG TAB PO PRN (10:15)
[2017-03-12] MEDS ORDERED: diphenhydrAMINE HCL 25 MG CAP PO PRN (10:15)
[2017-03-12] MEDS ORDERED: SODIUM CHLOR 0.9% 250 ML INJ 250 ML IV ONE (10:15)
[2017-03-12 10:16] LABS: POTASSIUM 2.9 MEQ/L (3.5-5.1)
[2017-03-12] MEDS: POTASSIUM CHLOR 20 MEQ PREMIX 100 ML IV SCH ×2 (11:38→13:25)
[2017-03-12] MEDS ORDERED: PROPOFOL 200 MG/20 ML AMP IV ONE (12:00)
[2017-03-12] MEDS ORDERED: ePHEDrine/NS 25 MG/5 ML SYR IV ONE (12:00)
[2017-03-12] MEDS ORDERED: ONDANSETRON HCL 4 MG/2 ML VIAL IV PUSH ONE (12:00)
[2017-03-12] MEDS ORDERED: PHENYLEPH/NS 1000 MCG/10 ML SYR IV ONE (12:00)
[2017-03-12] MEDS: DAPTOMYCIN IV SCH ×2 (12:00→13:24)
[2017-03-12] MEDS: SODIUM CHLORIDE 0.9% IV SCH ×2 (12:00→13:24)
[2017-03-12] MEDS ORDERED: LACTATED RINGER'S 1000 ML INJ 1,000 ML IV ONE (12:00)
--- NOTE | 2017-03-12 12:18 | HHI.GIFU ---
Subjective Remarks Drop in Hgb today with no obvious active GI bleeding. S/P PEG tube yesterday- will hold on starting TF because nurse reports that patient was scheduled to go to OR today for right hand. If not going to surgery, okay to start TF. ( Delia Zimmerman) Objective Vitals I&O Vital Signs Date Time Temp Pulse Resp B/P Pulse Ox O2 Delivery O2 Flow Rate FiO2 03/12/17 10:18 96 2.00 03/12/17 08:00 98.7 75 20 132/66 96 03/12/17 07:38 Nasal Cannula 2.00 03/12/17 04:00 98.1 73 20 126/60 99 03/12/17 00:00 98.0 79 20 105/56 100 03/12/17 00:00 Nasal Cannula 2.00 03/11/17 20:00 Nasal Cannula 2.00 03/11/17 20:00 97.8 85 20 132/79 94 03/11/17 16:30 78 16 122/65 96 Nasal Cannula 2 03/11/17 16:15 78 16 124/63 95 Nasal Cannula 2 03/11/17 16:01 99.3 85 18 142/70 97 03/11/17 16:00 76 16 121/72 96 Nasal Cannula 2 03/11/17 15:54 97.7 80 16 121/78 96 Nasal Cannula 2 03/11/17 14:33 95 Nasal Cannula 2.00 I/O 03/11/17 03/11/17 03/11/17 03/12/17 03/12/17 03/12/17 06:59 14:59 22:59 06:59 14:59 22:59 Intake Total 844 ml 928 ml 797 ml 603 ml Output Total 450 ml 300 ml 1250 ml 550 ml Balance 394 ml 628 ml -453 ml 53 ml Intake Oral 360 ml 240 ml 120 ml 10 ml IV Total 484 ml 688 ml 527 ml 593 ml Other 150 ml Output Urine Total 450 ml 300 ml 1250 ml 550 ml # Bowel Movements 0 0 Laboratory Laboratory Tests Test 03/12/17 03/12/17 07:53 07:56 Sodium Level 143 Potassium Level 2.9 Chloride Level 107 Carbon Dioxide Level 30.9 Anion Gap 5 Blood Urea Nitrogen 38 Creatinine 1.82 Estimat Glomerular Filtration 38 Rate Random Glucose 92 Calcium Level 9.1 White Blood Count 9.0 Red Blood Count 2.28 Hemoglobin 6.7 Hematocrit 20.2 Mean Corpuscular Volume 88.6 Mean Corpuscular Hemoglobin 29.3 Mean Corpuscular Hemoglobin 33.1 Concent Red Cell Distribution Width 14.1 Platelet Count 219 Mean Platelet Volume 10.5 Date/Time Procedure Status Source Growth 03/08/17 00:00 Gram Stain - Final Complete Wound Wrist 03/08/17 00:00 Wound Culture - Final Complete Wound Wrist NO GROWTH IN 72 HRS.--AEROBICALLY OR ... 03/08/17 00:00 Fungal Smear - Final Resulted Wound Wrist NO FUNGAL ELEMENTS SEEN. 03/08/17 00:00 Fungal Culture Resulted Wound Wrist Pending 03/08/17 00:00 Acid Fast Stain - Final Resulted Wound Wrist NO ACID FAST BACILLI SEEN 03/08/17 00:00 Mycobacterial Culture Resulted Wound Wrist Pending Imaging Last Impressions Abdomen X-Ray 03/08/17 0000 Signed Impressions: Service Date/Time: Wednesday, March 08, 2017 10:30 - CONCLUSION: Nonspecific, negative for obstruction or ileus. Isaac Stevenson MD FACR Chest X-Ray 03/02/17 0000 Signed Impressions: Service Date/Time: Thursday, March 02, 2017 13:26 - CONCLUSION: Interval develop of a small left-sided pleural effusion. Pulmonary venous congestion. Edenilson Oviedo MD Lower Extremity CT 03/01/17 0000 Signed Impressions: Service Date/Time: Wednesday, March 01, 2017 11:12 - CONCLUSION: 1. No evidence of organized fluid collections to suggest an abscess. 2. Extensive soft tissue swelling surrounding the ankle and extending to the forefoot especially along the lateral aspect. 3. No erosive or destructive bone changes. 4. Bone defects compatible with previous excision device. Blake Rider MD Ankle X-Ray 02/26/17 0000 Signed Impressions: Service Date/Time: Sunday, February 26, 2017 17:15 - CONCLUSION: I see no retained surgical instruments. Isaac Stevenson MD FACR Upper Extremity Ultrasound 02/25/17 0874 Signed Impressions: Service Date/Time: February 17:54 - CONCLUSION: There is a thin fluid collection within the focal area of soft tissue swelling 2nd digit. Oscar Cassidy MD Hand X-Ray 02/25/17 0000 Signed Impressions: Service Date/Time: February 18:59 - CONCLUSION: No gross bony abnormality. Oscar Cassidy MD Lower Extremity Ultrasound 02/24/17 0000 Signed Impressions: Service Date/Time: Friday, February 24, 2017 13:41 - CONCLUSION: Negative for deep venous thrombosis. Isaac Stevenson MD FACR Head CT 02/24/17 0000 Signed Impressions: Service Date/Time: Friday, February 24, 2017 16:08 - CONCLUSION: 1. No acute intracranial abnormality. 2. Probable large mucocele in the sphenoid sinus. Ty Hankins MD Abdomen/Pelvis CT 02/24/17 0000 Signed Impressions: Service Date/Time: Friday, February 24, 2017 16:16 - CONCLUSION: 1. Marked gaseous distension of large and small bowel most suggestive of ileus. 2. There is no free air. 3. 2.2 cm left adrenal mass. 4. Distended bladder. Isaac Stevenson MD FACR Physical Exam HEENT: Normocephalic; atraumatic; no jaundice CHEST: CTA CARDIAC: RRR ABDOMEN: Soft, nondistended, nontender; no hepatosplenomegaly; bowel sounds are present in all four quadrants. PEG tube site without redness or swelling EXTREMITIES: No clubbing, cyanosis, or edema. SKIN: Bulky yen wrap drsg to RUE d/i, drsg to right ankle ORIF. GLASS SANDER: Lethargic, confused. (Delia ZimmermanP) Assessment and Plan Plan ASSESSMENT: - Anemia with drop in Hgb. HH on admission (02/24/17) was 13.0/39.1. This has gradually been trending down with a drop from 7.8/23.9 to 6.5/20.4 on 03/07. He had a drop in Hgb again today and his H/H is 6.7/20.2. S/P 2 units PRBC during this hospitalization and another 1 unit of PRBC has been ordered. EGD yesterday was unremarkable. Will need colonoscopy- possibly Wednesday if not scheduled for other procedures. - Constipation. Abdomen X-Ray (03/08/17)---> Nonspecific, negative for obstruction or ileus. S/P Golytely (03/08), (+) multiple bowel movements. - Hep C antibodies. 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 S/P EGD with peg tube placement (03/11/17)----> unremarkable EGD, S/P peg tube. Site without redness or swelling or drainage. Puree diet. Ice Sculptor following. Recommends Jevity 1.5 at 60cc/hr. Will hold on starting until it is determined if patient is still going to OR today. If patient does not go to OR, it is okay to start TF via PEG. - THADDEUS with electrolyte abnormalities. K+ 2.9. Renal following, feels this is most likely ATN. - Acute encephalopathy, likely multifactorial- dt's, sepsis. confused, but does follow commands. - Sepsis, bacteremia, septic joint. S/P exploratory wash, excisional debridement of skin, subcutaneous tissue, and extensor tenosynovium right hand. ID following, Abx per ID - HTN per attending. PLAN: - Okay from GI standpoint to start TF- will hold on starting this until it is determined if patient is still going to OR, If he is not, then okay to use PEG Jevity 1.5 to GR 60cc/hr - Possible colonoscopy on Wednesday if no other procedures scheduled - Agree with transfusion - Monitor HH - Transfuse as necessary - Pt seen and examined by Dr. Whitney and myself and this note is written on his behalf (Delia Zimmerman) Physician Comments Patient seen and examined agree with above Continue with current supportive care Monitor labs Transfuse as needed continue close monitoring (Reese Whitney MD) Delia Zimmerman Mar 12, 2017 12:18 Reese Whitney MD Mar 12, 2017 21:36
[2017-03-12] MEDS ORDERED: LIDOCAINE HCL 2% 50 ML VIAL ONE (13:04)
[2017-03-12] MEDS ORDERED: MUPIROCIN 2% OINT 22 GM TUBE ONE (13:06)
--- NOTE | 2017-03-12 13:19 | HHI.PR ---
Subjective Remarks Follow up for MRSA bacteremia/septic joints, anemia, malnutrition. Patient is currently resting in bed. His hemoglobin this morning was 6.7. No fever, chills. Objective Vitals Vital Signs Date Time Temp Pulse Resp B/P Pulse Ox O2 Delivery O2 Flow Rate FiO2 03/12/17 10:18 96 2.00 03/12/17 08:00 98.7 75 20 132/66 96 03/12/17 07:38 Nasal Cannula 2.00 03/12/17 04:00 98.1 73 20 126/60 99 03/12/17 00:00 98.0 79 20 105/56 100 03/12/17 00:00 Nasal Cannula 2.00 03/11/17 20:00 Nasal Cannula 2.00 03/11/17 20:00 97.8 85 20 132/79 94 03/11/17 16:30 78 16 122/65 96 Nasal Cannula 2 03/11/17 16:15 78 16 124/63 95 Nasal Cannula 2 03/11/17 16:01 99.3 85 18 142/70 97 03/11/17 16:00 76 16 121/72 96 Nasal Cannula 2 03/11/17 15:54 97.7 80 16 121/78 96 Nasal Cannula 2 03/11/17 14:33 95 Nasal Cannula 2.00 I/O 03/11/17 03/11/17 03/11/17 03/12/17 03/12/17 03/12/17 06:59 14:59 22:59 06:59 14:59 22:59 Intake Total 844 ml 928 ml 797 ml 603 ml Output Total 450 ml 300 ml 1250 ml 550 ml Balance 394 ml 628 ml -453 ml 53 ml Intake Oral 360 ml 240 ml 120 ml 10 ml IV Total 484 ml 688 ml 527 ml 593 ml Other 150 ml Output Urine Total 450 ml 300 ml 1250 ml 550 ml # Bowel Movements 0 0 Result Diagram: 03/12/17 0756 03/12/17 0753 Imaging Last Impressions Abdomen X-Ray 03/08/17 0000 Signed Impressions: Service Date/Time: Wednesday, March 08, 2017 10:30 - CONCLUSION: Nonspecific, negative for obstruction or ileus. Isaac Stevenson MD FACR Chest X-Ray 03/02/17 0000 Signed Impressions: Service Date/Time: Thursday, March 02, 2017 13:26 - CONCLUSION: Interval develop of a small left-sided pleural effusion. Pulmonary venous congestion. Edenilson Oviedo MD Lower Extremity CT 03/01/17 Signed Impressions: Service Date/Time: Wednesday, March 01, 2017 11:12 - CONCLUSION: 1. No evidence of organized fluid collections to suggest an abscess. 2. Extensive soft tissue swelling surrounding the ankle and extending to the forefoot especially along the lateral aspect. 3. No erosive or destructive bone changes. 4. Bone defects compatible with previous excision device. Blake Rider MD Ankle X-Ray 02/26/17 Signed Impressions: Service Date/Time: Sunday, February 26, 2017 17:15 - CONCLUSION: I see no retained surgical instruments. Isaac Stevenson MD FACR Upper Extremity Ultrasound 02/25/17 1734 Signed Impressions: Service Date/Time: February 17:54 - CONCLUSION: There is a thin fluid collection within the focal area of soft tissue swelling 2nd digit. Oscar Cassidy MD Hand X-Ray 02/25/17 Signed Impressions: Service Date/Time: February 18:59 - CONCLUSION: No gross bony abnormality. Oscar Cassidy MD Lower Extremity Ultrasound 02/24/17 Signed Impressions: Service Date/Time: Friday, February 24, 2017 13:41 - CONCLUSION: Negative for deep venous thrombosis. Isaac Stevenson MD FACR Head CT 02/24/17 Signed Impressions: Service Date/Time: Friday, February 24, 2017 16:08 - CONCLUSION: 1. No acute intracranial abnormality. 2. Probable large mucocele in the sphenoid sinus. Ty Hankins MD Abdomen/Pelvis CT 02/24/17 Signed Impressions: Service Date/Time: Friday, February 24, 2017 16:16 - CONCLUSION: 1. Marked gaseous distension of large and small bowel most suggestive of ileus. 2. There is no free air. 3. 2.2 cm left adrenal mass. 4. Distended bladder. Isaac Stevenson MD FACR Objective Remarks GENERAL: SKIN: Warm and dry. HEAD: Normocephalic. EYES: No scleral icterus. No injection or drainage. NECK: Supple, trachea midline. No JVD or lymphadenopathy. CARDIOVASCULAR: Regular rate and rhythm without murmurs, gallops, or rubs. RESPIRATORY: Breath sounds equal bilaterally. No accessory muscle use. GASTROINTESTINAL: Abdomen soft, non-tender, nondistended. MUSCULOSKELETAL: RLE wrapped in dressing/FRANCISCO with distal edema. RUE wrapped in bulky surgical dressing, with distal edema, normal capillary refill. Left hand/ wrist wrapped in dressing BACK: Nontender without obvious deformity. No CVA tenderness. Procedures 03/10/2017 - Dr. Bullock exploration, wash, excisional debridement extensor tenosynovium right wrist/forearm/hand 03/08/17 - Dr. Bullock- exploration, wash, excisional debridement skin, subcutaneous tissue, extensor tenosynovitis right wrist and hand. Findings: necrotic tissue, minimal purulence, extensor tenosynovitis right wrist/hand 03/04/17 - Dr Gamez - Right leg and incision and drainage. Right foot delayed primary closure x3 03/04/17 - Dr. Bullock - Extensor tenosynovectomy second, third, fourth extensor compartments right wrist and excisional debridement wash index finger metacarpal phalangeal joint, excisional wash and excisional debridement left hand. 02/28/17 - Dr. Reyes - Right ankle wound debridement and washout. Implantation of antibiotic vancomycin beads. 02/28/17 - Dr. Bullock - Exploration, wash, excisional debridement index finger metacarpophalangeal joint right hand; Exploration, wash, excisional debridement metacarpophalangeal joint left index finger; Exploration, wash, excisional debridement extensor pollicis longus tendon right thumb and hand. 02/26/17 - Dr. Reyes - Right ankle incision and drainage, arthrotomy, removal infected hardware, bone biopsy. 02/26/17 - Dr. Bullock - Exploration, incision and drainage right hand abscess, Arthrotomy wash metacarpal phalangeal joint right index finger, Arthrotomy wash metacarpal phalangeal joint left index finger. A/P Problem List: (1) Sepsis ICD Code: A41.9 Status: Acute (2) Right foot infection ICD Code: L08.9 Status: Acute (3) Encephalopathy ICD Code: G93.40 Status: Acute (4) Alcoholism ICD Code: F10.20 Status: Acute Assessment and Plan 61-year-old male with history of right foot hardware, HTN, alcohol abuse, Hepatitis C, admitted with sepsis, MRSA bacteremia and septic joints, course complicated by severe agitated delirium and etoh withdrawal, improving. Sepsis with MRSA Bacteremia and Septic Joints: wound cultures from index fingers and right ankle with MRSA. Blood cultures also +MRSA. -S/p multiple surgeries with podiatry Dr. Reyes/Dr. Gamez on 02/26, 02/28, , and hand surgeon Dr. Bullock on 02/26, 02/28, 03/04, 03/08, 03/10. -Echo 02/28 negative for vegetation -Infectious disease consulted -Continue on antibiotics with IV Dapto and oral Rifampin -Per ID, will need manager test IV abx plus oral Rimfampin for 6 weeks followed by oral suppression, recommends SNF placement for concern for noncompliance -continue pain control with oxycodone prn and IV dilaudid prn Anemia: Hgb 7.4 --> 6.7. - Will transfuse one unit. Discussed with Hand surgery. -GI is following. Phlebotomy Technician directed calorie count ordered. Currently on pureed diet with thin liquids. Acute Toxic/Metabolic Encephalopathy secondary to Sepsis and Acute Alcohol Withdrawal: admitted in ICU. -initially admitted to ICU with encephalopathy, severe agitation -symptoms improving -monitor neuro checks Moderate Protein Calorie Malnutrition: Albumin 0.9. BMI 19. - Speech, GI following. Phlebotomy Technician consulted. - PEG Tube placement on 03/11/2017 Hypernatremia: Na 152 --> 150 --> 144. - Currently on on D5W @84cc/hour. Will discontinue IV fluid for now. PEG tube placed on 03/11/2017. - If needed, we will administer D5+NS at a maintenance rate. - Nephrology following. - Hypokalemia - K+ 2.9. Will replace with IV KCL. Hypertension: BP much better controlled. -continue clonidine 0.3mg tid and coreg 6.25mg bid -monitor BP, adjust antihypertensives as needed Mild Systolic CHF: Echo 02/28 with EF 40-45% and global hypokinesis -Cardiology consulted, recommends continued medical management -Continue BB, unable to have ACEi with renal insufficiency -per cardiology, start ACEi once renal function stabilized THADDEUS: Cr increased to 2, previously 0.86 on 02/28/17. -Nephrology following, likely has ATN -Continue gentle hydration -avoid nephrotoxins -monitor renal function Hepatitis C: antibody positive -GI consulted, appreciate recommendations DVT Prophylaxis: Lovenox GI Prophylaxis: Protonix Problem Qualifiers (1) Sepsis: Qualified Code: A41.9 - Sepsis, due to unspecified organism Zee Velasquez DO Mar 12, 2017 1:19 pm
[2017-03-12] MEDS ORDERED: ACETAMINOPHEN 1000 MG/100 ML VIAL IV ONE (15:18)
[2017-03-12] MEDS ORDERED: HYDROmorphone HCL PF 2 MG/ML VIAL ONE (15:18)
--- NOTE | 2017-03-12 15:25 | HHI.NPPN ---
Subjective History of Present Illness 61 year old male with past medical history of hypertension, history of being homeless. He was admitted on February 25 with altered mental status and leukocytosis. I was called to see the patient because of elevated BUN and creatinine. Additional Remarks Patient is alert, remain confused, now going to OR. Objective Data Data 03/11/17 03/12/17 19:00 07:00 Intake Total 1028 ml 1300 ml Output Total 1100 ml 1000 ml Balance -72 ml 300 ml Intake Oral 240 ml 130 ml IV Total 788 ml 1020 ml Other 150 ml Output Urine Total 1100 ml 1000 ml # Bowel Movements 0 Vital Signs Date Time Temp Pulse Resp B/P Pulse Ox O2 Delivery O2 Flow Rate FiO2 03/12/17 15:15 03/12/17 10:18 96 2.00 03/12/17 08:00 98.7 75 20 132/66 96 03/12/17 07:38 Nasal Cannula 2.00 03/12/17 04:00 98.1 73 20 126/60 99 03/12/17 00:00 98.0 79 20 105/56 100 03/12/17 00:00 Nasal Cannula 2.00 03/11/17 20:00 Nasal Cannula 2.00 03/11/17 20:00 97.8 85 20 132/79 94 03/11/17 16:30 78 16 122/65 96 Nasal Cannula 2 03/11/17 16:15 78 16 124/63 95 Nasal Cannula 2 03/11/17 16:01 99.3 85 18 142/70 97 03/11/17 16:00 76 16 121/72 96 Nasal Cannula 2 03/11/17 15:54 97.7 80 16 121/78 96 Nasal Cannula 2 -: 03/12/17 0756 03/12/17 0753 Physical Exam General Appearance: No Acute Distress, Anxious Eyes Eye Exam: Pupils Equal Throat Throat Exam: Oral Mucosa [place] & Moist Neck Neck Exam: Neck Supple Pulmonary Resp Exam: Breath Sounds Equal, No Distress, Rhonchi, Decreased Bases Cardiology CV Exam: Regular, Normal Sinus Rhythm Gastrointestinal/Abdomen GI Exam: Soft, Non-Tender, Bowel Sounds Present Extremeties Extremities Exam: Trace Edema Neurologic Neuro Exam: Alert, Awake, Oriented Psychiatric Psych Exam: Appropriate Responses Assessment/Plan Assessment Summary: THADDEUS/Acute Renal Failure Problem List: (1) Encephalopathy (2) Essential hypertension (3) Hepatitis C, chronic (4) Abscess of right hand including fingers (5) Abscess of left hand including fingers (6) Alcoholism (7) CHF (congestive heart failure) (8) Sepsis (9) ARF (acute renal failure) Plan Patient has been non oliguric. Urine Eosinophils negative. Urine Na. is normal. Most likely has ATN. Continue gentle hydration and antibiotics. Avoid Nephrotoxins. Creatinine is stable and Na. is better, 150. on Hypotonic fluid with Kcl. Again going for debridement. K is low and replaced. Hgb. is low, will need transfusion. Problem Qualifiers (1) Sepsis: Qualified Code: A41.9 - Sepsis, due to unspecified organism Diane Barker MD Mar 12, 2017 15:25
[2017-03-12] MEDS ORDERED: NEOMYCIN/POLYMYXIN 1 ML G.U. IRRIGANT TOPICAL ONE (15:54)
[2017-03-12] MEDS ORDERED: VANCOMYCIN HCL 1000 MG VIAL ONE (15:57)
--- NOTE | 2017-03-12 16:52 | PD.OP ---
Operative Report Preoperative Diagnosis: (1) Infectious tenosynovitis of right wrist extensor Postoperative Diagnosis: (1) Infectious tenosynovitis of right wrist extensor Procedure: exploration, wash, excisional debridement right hand/wrist/forearm Anesthesia: general Surgeon: Roque Bullock Field Clerk(s): dhara Operation and Findings: tenosynovitis extensor compartment 2nd/3rd and 4th compartments partial closure of the wounds with packing in place Roque Bullock MD Mar 12, 2017 16:52
[2017-03-12] MEDS ORDERED: fentaNYL CITRATE 250 MCG/5 ML AMP ONE (17:04)
[2017-03-12] MEDS ORDERED: DO NOT ADM ANY ANTICOAGULANT DRUGS PRN (17:30)
[2017-03-12] MEDS ORDERED: *morphine SULFATE 8 MG/ML PERIprocedure ONLY ONE (17:33)
[2017-03-13 04:00] VITALS: BP 137/72; PULSE 69; RESP 20; TEMP 97.8; O2SAT 97
[2017-03-13] MEDS: cloNIDine HCL 0.3 MG TAB PO SCH ×3 (05:49→21:30)
[2017-03-13] MEDS ORDERED: LIDOCAINE HCL 1% 20 ML VIAL OTHER ONE (07:00)
[2017-03-13] MEDS: HYDROmorphone HCL PF 1 MG/ML VIAL IV PUSH PRN (07:57)
[2017-03-13 08:03] VITALS: BP 133/70; PULSE 72; RESP 18; TEMP 97.9; O2SAT 100
[2017-03-13] MEDS: CARVEDILOL 6.25 MG TAB PO SCH ×2 (10:22→21:30)
[2017-03-13] MEDS: MUPIROCIN 2% OINT 1 APPLIC/GM SYR NASAL SCH ×2 (10:22→21:31)
[2017-03-13] MEDS: LISINOPRIL 5 MG TAB PO SCH (10:23)
[2017-03-13] MEDS: THIAMINE HCL 100 MG TAB PO SCH (10:25)
[2017-03-13] MEDS: RIFAMPIN 150 MG CAP PO SCH ×2 (10:25→21:30)
[2017-03-13] MEDS: MULTIVITAMIN TAB PO SCH (10:25)
--- NOTE | 2017-03-13 10:31 | HHI.PR ---
Subjective Remarks Follow up for MRSA bacteremia/septic joints, anemia, malnutrition. Agent is currently doing well. No fever or chills. He underwent PEG tube placement yesterday but It was not started because of surgery scheduled yesterday. Objective Vitals Vital Signs Date Time Temp Pulse Resp B/P Pulse Ox O2 Delivery O2 Flow Rate FiO2 03/13/17 10:20 20 03/13/17 08:03 97.9 72 18 133/70 100 03/13/17 04:00 97.8 69 20 137/72 97 03/13/17 04:00 Nasal Cannula 2.00 03/12/17 23:05 98.5 18 18 136/74 97 03/12/17 23:05 Nasal Cannula 2.00 03/12/17 22:47 97.8 85 20 128/69 100 03/12/17 20:00 Nasal Cannula 2.00 03/12/17 20:00 97.7 82 20 132/70 100 03/12/17 17:40 96 Nasal Cannula 2.00 03/12/17 17:30 78 12 112/71 99 Nasal Cannula 2 03/12/17 17:15 75 14 120/74 99 Nasal Cannula 2 03/12/17 17:00 75 15 112/74 99 Nasal Cannula 2 03/12/17 16:54 97.6 75 15 130/77 98 Nasal Cannula 2 03/12/17 15:15 03/12/17 12:00 99.6 81 20 134/63 98 I/O 03/12/17 03/12/17 03/12/17 03/13/17 03/13/17 03/13/17 07:00 15:00 23:00 07:00 15:00 23:00 Intake Total 603 ml 300 ml 1000 ml Output Total 550 ml 1170 ml 250 ml Balance 53 ml 300 ml -170 ml -250 ml Intake Oral 10 ml 0 ml IV Total 593 ml 300 ml Other 1000 ml Output Urine Total 550 ml 1150 ml 250 ml Estimated Blood Loss 20 ml # Bowel Movements 0 Result Diagram: 03/12/17 0756 03/12/17 0753 Imaging Last Impressions Abdomen X-Ray 03/08/17 0000 Signed Impressions: Service Date/Time: Wednesday, March 08, 2017 10:30 - CONCLUSION: Nonspecific, negative for obstruction or ileus. Isaac Stevenson MD FACR Chest X-Ray 03/02/17 Signed Impressions: Service Date/Time: Thursday, March 02, 2017 13:26 - CONCLUSION: Interval develop of a small left-sided pleural effusion. Pulmonary venous congestion. Edenilson Oviedo MD Lower Extremity CT 03/01/17 0000 Signed Impressions: Service Date/Time: Wednesday, March 01, 2017 11:12 - CONCLUSION: 1. No evidence of organized fluid collections to suggest an abscess. 2. Extensive soft tissue swelling surrounding the ankle and extending to the forefoot especially along the lateral aspect. 3. No erosive or destructive bone changes. 4. Bone defects compatible with previous excision device. Blake Rider MD Ankle X-Ray 02/26/17 0000 Signed Impressions: Service Date/Time: Sunday, February 26, 2017 17:15 - CONCLUSION: I see no retained surgical instruments. Isaac Stevenson MD FACR Upper Extremity Ultrasound 02/25/17 1734 Signed Impressions: Service Date/Time: February 17:54 - CONCLUSION: There is a thin fluid collection within the focal area of soft tissue swelling 2nd digit. Oscar Cassidy MD Hand X-Ray 02/25/17 0000 Signed Impressions: Service Date/Time: February 18:59 - CONCLUSION: No gross bony abnormality. Oscar Cassidy MD Lower Extremity Ultrasound 02/24/17 Signed Impressions: Service Date/Time: Friday, February 24, 2017 13:41 - CONCLUSION: Negative for deep venous thrombosis. Isaac Stevenson MD FACR Head CT 02/24/17 Signed Impressions: Service Date/Time: Friday, February 24, 2017 16:08 - CONCLUSION: 1. No acute intracranial abnormality. 2. Probable large mucocele in the sphenoid sinus. Ty Hankins MD Abdomen/Pelvis CT 02/24/17 0000 Signed Impressions: Service Date/Time: Friday, February 24, 2017 16:16 - CONCLUSION: 1. Marked gaseous distension of large and small bowel most suggestive of ileus. 2. There is no free air. 3. 2.2 cm left adrenal mass. 4. Distended bladder. Isaac Stevenson MD FACR Objective Remarks GENERAL: SKIN: Warm and dry. HEAD: Normocephalic. EYES: No scleral icterus. No injection or drainage. NECK: Supple, trachea midline. No JVD or lymphadenopathy. CARDIOVASCULAR: Regular rate and rhythm without murmurs, gallops, or rubs. RESPIRATORY: Breath sounds equal bilaterally. No accessory muscle use. GASTROINTESTINAL: Abdomen soft, non-tender, nondistended. MUSCULOSKELETAL: RLE wrapped in dressing/FRANCISCO with distal edema. RUE wrapped in bulky surgical dressing, with distal edema, normal capillary refill. Left hand/ wrist wrapped in dressing BACK: Nontender without obvious deformity. No CVA tenderness. Procedures 03/10/2017 - Dr. Bullock exploration, wash, excisional debridement extensor tenosynovium right wrist/forearm/hand 03/08/17 - Dr. Bullock- exploration, wash, excisional debridement skin, subcutaneous tissue, extensor tenosynovitis right wrist and hand. Findings: necrotic tissue, minimal purulence, extensor tenosynovitis right wrist/hand 03/04/17 - Dr Gamez - Right leg and incision and drainage. Right foot delayed primary closure x3 03/04/17 - Dr. Bullock - Extensor tenosynovectomy second, third, fourth extensor compartments right wrist and excisional debridement wash index finger metacarpal phalangeal joint, excisional wash and excisional debridement left hand. 02/28/17 - Dr. Reyes - Right ankle wound debridement and washout. Implantation of antibiotic vancomycin beads. 02/28/17 - Dr. Bullock - Exploration, wash, excisional debridement index finger metacarpophalangeal joint right hand; Exploration, wash, excisional debridement metacarpophalangeal joint left index finger; Exploration, wash, excisional debridement extensor pollicis longus tendon right thumb and hand. 02/26/17 - Dr. Reyes - Right ankle incision and drainage, arthrotomy, removal infected hardware, bone biopsy. 02/26/17 - Dr. Bullock - Exploration, incision and drainage right hand abscess, Arthrotomy wash metacarpal phalangeal joint right index finger, Arthrotomy wash metacarpal phalangeal joint left index finger. A/P Problem List: (1) Sepsis ICD Code: A41.9 Status: Acute (2) Right foot infection ICD Code: L08.9 Status: Acute (3) Encephalopathy ICD Code: G93.40 Status: Acute (4) Alcoholism ICD Code: F10.20 Status: Acute Assessment and Plan 61-year-old male with history of right foot hardware, HTN, alcohol abuse, Hepatitis C, admitted with sepsis, MRSA bacteremia and septic joints, course complicated by severe agitated delirium and etoh withdrawal, improving. Sepsis with MRSA Bacteremia and Septic Joints: wound cultures from index fingers and right ankle with MRSA. Blood cultures also +MRSA. - S/p multiple surgeries with podiatry Dr. Reyes/Dr. Gamez on 02/26, 02/28, , and hand surgeon Dr. Bullock on 02/26, 02/28, 03/04, 03/08, 03/10. - Echo 02/28 negative for vegetation - Infectious disease consulted - Continue on antibiotics with IV Dapto and oral Rifampin - Per ID, will need terminal gauger IV abx plus oral Rimfampin for 6 weeks followed by oral suppression, recommends SNF placement for concern for noncompliance - continue pain control with oxycodone prn and IV dilaudid prn Anemia: Hgb 7.4 --> 6.7. Poor nutrition - transfused one unit on 03/12/2017. Discussed with Hand surgery. - GI is following. [employer] directed calorie count ordered. Currently on pureed diet with thin liquids. - Patient underwent a tube placement yesterday. Discussed with GI. Will start to feed today. - Moderate Protein Calorie Malnutrition: Albumin 0.9. BMI 19. - Will check H&H in the AM. Acute Toxic/Metabolic Encephalopathy secondary to Sepsis and Acute Alcohol Withdrawal: admitted in ICU. - initially admitted to ICU with encephalopathy, severe agitation - symptoms improving Hypernatremia: Na 152 --> 150 --> 144. - Currently on on D5W @84cc/hour. Will discontinue IV fluid for now. PEG tube placed on 03/11/2017. - Nephrology following. - Hypokalemia - K+ 2.9. Replaced with IV potassium. We'll check BMP in the morning. - We'll start normal saline plus KCl at 75 cc per hour. Hypertension: BP much better controlled. -continue clonidine 0.3mg tid and coreg 6.25mg bid -monitor BP, adjust antihypertensives as needed Mild Systolic CHF: Echo 02/28 with EF 40-45% and global hypokinesis - Cardiology consulted, recommends continued medical management - Continue BB, unable to have ACEi with renal insufficiency - Continue lisinopril 2.5 mg by mouth daily. THADDEUS: Cr increased to 2, previously 0.86 on 02/28/17. -Nephrology following, likely had ATN -Continue gentle hydration -avoid nephrotoxins Hepatitis C: antibody positive -GI consulted, appreciate recommendations DVT Prophylaxis: Lovenox on hold due to surgery. GI Prophylaxis: Protonix Problem Qualifiers (1) Sepsis: Qualified Code: A41.9 - Sepsis, due to unspecified organism Zee Velasquez DO Mar 13, 2017 10:31 am
[2017-03-13 12:54] LABS: BICARBONATE 31.7 MEQ/L (21.0-32.0); POTASSIUM 3.7 MEQ/L (3.5-5.1)
--- NOTE | 2017-03-13 13:57 | HHI.GIFU ---
Subjective Remarks Resting in bed. No obvious active bleeding. Confused, lethargic. (Delia Zimmerman) Objective Vitals I&O Vital Signs Date Time Temp Pulse Resp B/P Pulse Ox O2 Delivery O2 Flow Rate FiO2 03/13/17 10:20 20 03/13/17 08:03 97.9 72 18 133/70 100 03/13/17 04:00 97.8 69 20 137/72 97 03/13/17 04:00 Nasal Cannula 2.00 03/12/17 23:05 98.5 18 18 136/74 97 03/12/17 23:05 Nasal Cannula 2.00 03/12/17 22:47 97.8 85 20 128/69 100 03/12/17 20:00 Nasal Cannula 2.00 03/12/17 20:00 97.7 82 20 132/70 100 03/12/17 17:40 96 Nasal Cannula 2.00 03/12/17 17:30 78 12 112/71 99 Nasal Cannula 2 03/12/17 17:15 75 14 120/74 99 Nasal Cannula 2 03/12/17 17:00 75 15 112/74 99 Nasal Cannula 2 03/12/17 16:54 97.6 75 15 130/77 98 Nasal Cannula 2 03/12/17 15:15 I/O 03/12/17 03/12/17 03/12/17 03/13/17 03/13/17 03/13/17 06:59 14:59 22:59 06:59 14:59 22:59 Intake Total 603 ml 300 ml 1000 ml Output Total 550 ml 1170 ml 250 ml Balance 53 ml 300 ml -170 ml -250 ml Intake Oral 10 ml 0 ml IV Total 593 ml 300 ml Other 1000 ml Output Urine Total 550 ml 1150 ml 250 ml Estimated Blood Loss 20 ml # Bowel Movements 0 Laboratory Laboratory Tests Test 03/12/17 03/13/17 19:22 10:58 Blood Type B NEGATIVE Antibody Screen NEGATIVE Crossmatch Leukocyte-Reduced Red Blood Cells Blood Bank Comment Sodium Level 143 Potassium Level 3.7 Chloride Level 106 Carbon Dioxide Level 31.7 Anion Gap 5 Blood Urea Nitrogen 38 Creatinine 1.80 Estimat Glomerular Filtration 38 Rate Random Glucose 80 Calcium Level 9.5 Imaging Last Impressions Abdomen X-Ray 03/08/17 0000 Signed Impressions: Service Date/Time: Wednesday, March 08, 2017 10:30 - CONCLUSION: Nonspecific, negative for obstruction or ileus. Isaac Stevenson MD FACR Chest X-Ray 03/02/17 Signed Impressions: Service Date/Time: Thursday, March 02, 2017 13:26 - CONCLUSION: Interval develop of a small left-sided pleural effusion. Pulmonary venous congestion. Edenilson Oviedo MD Lower Extremity CT 03/01/17 Signed Impressions: Service Date/Time: Wednesday, March 01, 2017 11:12 - CONCLUSION: 1. No evidence of organized fluid collections to suggest an abscess. 2. Extensive soft tissue swelling surrounding the ankle and extending to the forefoot especially along the lateral aspect. 3. No erosive or destructive bone changes. 4. Bone defects compatible with previous excision device. Blake Rider MD Ankle X-Ray 02/26/17 Signed Impressions: Service Date/Time: Sunday, February 26, 2017 17:15 - CONCLUSION: I see no retained surgical instruments. Isaac Stevenson MD FACR Upper Extremity Ultrasound 02/25/17 1734 Signed Impressions: Service Date/Time: February 17:54 - CONCLUSION: There is a thin fluid collection within the focal area of soft tissue swelling 2nd digit. Oscar Cassidy MD Hand X-Ray 02/25/17 Signed Impressions: Service Date/Time: February 18:59 - CONCLUSION: No gross bony abnormality. Oscar Cassidy MD Lower Extremity Ultrasound 02/24/17 Signed Impressions: Service Date/Time: Friday, February 24, 2017 13:41 - CONCLUSION: Negative for deep venous thrombosis. Isaac Stevenson MD FACR Head CT 02/24/17 Signed Impressions: Service Date/Time: Friday, February 24, 2017 16:08 - CONCLUSION: 1. No acute intracranial abnormality. 2. Probable large mucocele in the sphenoid sinus. Ty Hankins MD Abdomen/Pelvis CT 02/24/17 Signed Impressions: Service Date/Time: Friday, February 24, 2017 16:16 - CONCLUSION: 1. Marked gaseous distension of large and small bowel most suggestive of ileus. 2. There is no free air. 3. 2.2 cm left adrenal mass. 4. Distended bladder. Isaac Stevenson MD FACR Physical Exam HEENT: Normocephalic; atraumatic; no jaundice CHEST: CTA CARDIAC: RRR ABDOMEN: Soft, nondistended, nontender; no hepatosplenomegaly; bowel sounds are present in all four quadrants. PEG tube site without redness or swelling EXTREMITIES: RUE in colle sling with brace/drsg d/i SKIN: Bulky yen wrap drsg to RUE d/i, drsg to right ankle ORIF. CLINICAL ESTHETICIAN: Lethargic, confused. (Delia Zimmerman) Assessment and Plan Plan ASSESSMENT: - Anemia with drop in Hgb. S/P EGD with peg tube placement (03/11/17)---> unremarkable EGD, s/p peg placement. Had a drop in Hgb yesterday without obvious GI bleeding. S/P 2 units PRBC. No CBC for today. Will check cbc today and plan for colonoscopy on Wednesday. - Constipation. Abdomen X-Ray (03/08/17)---> Nonspecific, negative for obstruction or ileus. S/P Golytely (03/08), (+) multiple bowel movements. - Hep C antibodies. 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 S/P EGD with peg tube placement (03/11/17)----> unremarkable EGD, S/P peg tube. Site without redness or swelling or drainage. Puree diet. Car Lot Attendant following. Recommends Jevity 1.5 at 60cc/hr. Will start TF. - THADDEUS with electrolyte abnormalities. Renal following, feels this is most likely ATN. - Acute encephalopathy, likely multifactorial- dt's, sepsis. confused, but does follow commands. - Sepsis, bacteremia, septic joint. Hand surgery/ID following, Abx per ID ID following, Abx per ID - HTN per attending. PLAN: - Plan for colonoscopy Wednesday - Jevity 1.5 to GR 60cc/hr - NPO after MN Wednesday night - Golytely prep tomorrow - CBC today - Monitor HH - Transfuse as necessary - Pt seen and examined by Dr. Melo and myself and this note is written on his behalf (Delia Zimmerman) Physician Comments Seen and examined, plan as above, will schedule Colonoscopy Wednesday. Further recommendations to follow. (Amaury Melo MD) Delia Zimmerman Mar 13, 2017 13:57 Amaury Melo MD Mar 13, 2017 14:05
[2017-03-13 16:25] VITALS: BP 150/79; PULSE 73; RESP 18; TEMP 98.3; O2SAT 100
--- NOTE | 2017-03-13 16:38 | MP ---
cc: FILIBERTO SAGASTUME DATE OF SURGERY 03/12/17 PREOPERATIVE DIAGNOSIS Infectious extensor tenosynovitis right wrist, forearm and hand. POSTOPERATIVE DIAGNOSIS Right infectious extensor tenosynovitis right wrist, forearm and hand. PROCEDURE Exploration, wash, excisional debridement extensor tenosynovium right hand, wrist/forearm and excision of the necrotic extensor pollicis longus tendon. SURGEON Dr. Fco Sagastume ANESTHESIA General ESTIMATED BLOOD LOSS Minimal. TOURNIQUET TIME No tourniquet was used. SPECIMEN Sent for pathology. DISPOSITION To PACU stable. INDICATIONS The patient is a 61-year-old male with MRSA infection in bilateral index finger, MP joint septic arthritis and infectious extensor tenosynovitis of the right wrist and forearm status post multiple debridements who was brought in today for repeat debridement. The patient has normal white count trending. He is also on vancomycin. Risk and benefits of the procedure were explained to the patient's father. PROCEDURE IN DETAIL The patient was brought to the operating room under general anesthesia. The right upper extremity was thoroughly prepped and draped. Previously placed vessel loops with abby holding the skin edges were removed. No evidence of purulent material was noted. There was evidence of devitalized extensor tendon sheath, especially the extensor pollicis longus. All of the extensor pollicis longus tendon was devitalized and necrotic and so decision was made to proceed with excision of the extensor pollicis longus tendon which was excised and sent for pathology. Excisional debridement of devitalized tendon sheath around the extensor tendons of the fourth compartment and second compartment was carried out. Thorough wash was given using normal saline mixed with irrigant and vancomycin. Bleeding points were cauterized with bipolar cautery. The wound was partially approximated using abby. Part of the wound was open at the dorsal lateral aspect of the wrist and over the dorsal aspect of the hand which was held in place by vessel loops in a shoelace pattern. Packing of the wounds was carried out. A bulky hand dressing was applied which was held in place by Kerlix and bias hand wrap. The patient was recovered and sent to recovery in stable condition. Plan will be to gradually pull out the packing in a day or two. I will plan for full closure on Wednesday. MD RAQUEL Sousa /4:53 PM /4:30 PM [facility]
[2017-03-13] MEDS: NS + KCL 20 MEQ INJ 1,000 ML IV SCH (16:44)
[2017-03-13] MEDS: DAPTOMYCIN IV SCH (16:45)
[2017-03-13] MEDS: SODIUM CHLORIDE 0.9% IV SCH (16:45)
--- NOTE | 2017-03-13 17:51 | PD.POD ---
Subjective Podiatric Problems s/p R ankle I and D, hardware removal, bone biopsy Dr Reyes s/p delayed primary closure with Dr Gamez 03/04/17 Answered questions at bedside. Past Med/Surg/Social History Past Surgical History Gastrointestinal: DENIES HX OF: Colectomy, total Social History Smoking Status: Current Every Day Smoker Objective Vital Signs Vital Signs Date Time Temp Pulse Resp B/P Pulse Ox O2 Delivery O2 Flow Rate FiO2 03/13/17 16:46 100 Nasal Cannula 2.00 03/13/17 16:25 98.3 73 18 150/79 100 03/13/17 10:20 20 03/13/17 08:03 97.9 72 18 133/70 100 03/13/17 04:00 97.8 69 20 137/72 97 03/13/17 04:00 Nasal Cannula 2.00 03/12/17 23:05 98.5 18 18 136/74 97 03/12/17 23:05 Nasal Cannula 2.00 03/12/17 22:47 97.8 85 20 128/69 100 03/12/17 20:00 Nasal Cannula 2.00 03/12/17 20:00 97.7 82 20 132/70 100 Coded Allergies: ciprofloxacin (Unverified Adverse Reaction, Intermediate, Dizziness, ) *MDRO Multi-Drug Resistant Organism (Verified Adverse Reaction, Unknown, ) MRSA (blood)+(urine) 02/24/17, (blood) 02/25/17, 02/27/17 (finger,ankle,leg) 02/26/17, 02/28/17 MRSA PCR screen positive 02/25/17 Other Results Laboratory Tests Test 03/09/17 03/09/17 03/10/17 03/12/17 06:15 06:30 10:33 07:56 Total Bilirubin 0.4 MG/DL Aspartate Amino Transf 43 U/L (AST/SGOT) Alanine Aminotransferase 21 U/L (ALT/SGPT) Alkaline Phosphatase 81 U/L Total Creatine Kinase 167 U/L Total Protein 6.4 GM/DL Albumin 1.1 GM/DL Hepatitis C RNA Genotype 1a Hepatitis C RNA (PCR) IUs/ml 8000693 IU/mL Hepatitis C RNA (PCR) log 6.17 IUs/ml Neutrophils (%) (Auto) 78.8 % Lymphocytes (%) (Auto) 13.5 % Monocytes (%) (Auto) 6.1 % Eosinophils (%) (Auto) 1.2 % Basophils (%) (Auto) 0.4 % Neutrophils # (Auto) 6.7 TH/MM3 Lymphocytes # (Auto) 1.2 TH/MM3 Monocytes # (Auto) 0.5 TH/MM3 Eosinophils # (Auto) 0.1 TH/MM3 Basophils # (Auto) 0.0 TH/MM3 CBC Comment DIFF FINAL Differential Comment White Blood Count 9.0 TH/MM3 Red Blood Count 2.28 MIL/MM3 Hemoglobin 6.7 GM/DL Hematocrit 20.2 % Mean Corpuscular Volume 88.6 FL Mean Corpuscular Hemoglobin 29.3 PG Mean Corpuscular Hemoglobin 33.1 % Concent Red Cell Distribution Width 14.1 % Platelet Count 219 TH/MM3 Mean Platelet Volume 10.5 FL Test 03/12/17 03/13/17 19:22 10:58 Blood Type B NEGATIVE Antibody Screen NEGATIVE Crossmatch Leukocyte-Reduced Red Blood Cells Blood Bank Comment Sodium Level 143 MEQ/L Potassium Level 3.7 MEQ/L Chloride Level 106 MEQ/L Carbon Dioxide Level 31.7 MEQ/L Anion Gap 5 MEQ/L Blood Urea Nitrogen 38 MG/DL Creatinine 1.80 MG/DL Estimat Glomerular Filtration 38 ML/MIN Rate Random Glucose 80 MG/DL Calcium Level 9.5 MG/DL Exam-Podiatry Dermatological Exam Ulcers: Location/Measurements RLE DP and PT intact. LE is warm to warm. Post op edema, no streaking . + serous drainage at the posterior medial incision. Well aligned incisions with intact sutures. Assessment & Plan Diagnosis: (1) Sepsis Status: Acute (2) Right foot infection Status: Acute A/P s/p R ankle I and D, hardware removal, bone biopsy with Dr Reyes s/p Delayed primary closure with Dr Gamez 03/04/17 Continue with dressing changes as ordered: daily packing and DSDLaurence Dasilva plan to d/c packing in 1 week and allow tiertary closure at that [address] Norman begins coverage on 03/15/17 Problem Qualifiers (1) Sepsis: Qualified Code: A41.9 - Sepsis, due to unspecified organism Sharon Reyes DPM Mar 13, 2017 17:51
[2017-03-13 18:15] LABS: AUTOMATED NEUTROPHIL # 5.8 TH/MM3 (1.8-7.7); BASOPHIL % 0.4 % (0.0-2.0); EOSINOPHIL # 0.1 TH/MM3 (0-0.4); EOSINOPHIL % 1.5 % (0.0-4.0); LYMPH % 11.4 % (9.0-44.0); LYMPHOCYTE # 0.8 TH/MM3 (1.0-4.8); MEAN CELL VOLUME 90.5 FL (80.0-100.0); MEAN CORPUSCULAR HEMOGLOBIN 30.2 PG (27.0-34.0); MEAN CORPUSCULAR HGB CONC 33.4 % (32.0-36.0); NEUT % 79.7 % (16.0-70.0); PLATELET COUNT 239 TH/MM3 (150-450); RED CELL DISTRIBUTION WIDTH 14.1 % (11.6-17.2); WHITE BLOOD COUNT 7.3 TH/MM3 (4.0-11.0)
[2017-03-13 18:34] LABS: HEMO FLAGS DIFF FINAL
[2017-03-13 18:41] LABS: HEMATOCRIT 20.8 % (39.0-51.0)
--- NOTE | 2017-03-13 19:59 | HHI.NPPN ---
Subjective History of Present Illness 61 year old male with past medical history of hypertension, history of being homeless. He was admitted on February 25 with altered mental status and leukocytosis. I was called to see the patient because of elevated BUN and creatinine. Additional Remarks No acute complaints, confused. Objective Data Data 03/12/17 03/13/17 19:00 07:00 Intake Total 1300 ml 0 ml Output Total 1120 ml 300 ml Balance 180 ml -300 ml Intake Oral 0 ml IV Total 300 ml Other 1000 ml Output Urine Total 1100 ml 300 ml Estimated Blood Loss 20 ml # Bowel Movements 0 Vital Signs Date Time Temp Pulse Resp B/P Pulse Ox O2 Delivery O2 Flow Rate FiO2 03/13/17 16:46 100 Nasal Cannula 2.00 03/13/17 16:25 98.3 73 18 150/79 100 03/13/17 10:20 20 03/13/17 08:03 97.9 72 18 133/70 100 03/13/17 04:00 97.8 69 20 137/72 97 03/13/17 04:00 Nasal Cannula 2.00 03/12/17 23:05 98.5 18 18 136/74 97 03/12/17 23:05 Nasal Cannula 2.00 03/12/17 22:47 97.8 85 20 128/69 100 03/12/17 20:00 Nasal Cannula 2.00 03/12/17 20:00 97.7 82 20 132/70 100 -: 03/13/17 1727 03/13/17 1058 Physical Exam General Appearance: No Acute Distress, Anxious Eyes Eye Exam: Pupils Equal Throat Throat Exam: Oral Mucosa [place] & Moist Neck Neck Exam: Neck Supple Pulmonary Resp Exam: Breath Sounds Equal, No Distress, Rhonchi, Decreased Bases Cardiology CV Exam: Regular, Normal Sinus Rhythm Gastrointestinal/Abdomen GI Exam: Soft, Non-Tender, Bowel Sounds Present Extremeties Extremities Exam: Trace Edema Neurologic Neuro Exam: Alert, Awake, Oriented Psychiatric Psych Exam: Appropriate Responses Assessment/Plan Assessment Summary: THADDEUS/Acute Renal Failure Problem List: (1) Encephalopathy (2) Essential hypertension (3) Hepatitis C, chronic (4) Abscess of right hand including fingers (5) Abscess of left hand including fingers (6) Alcoholism (7) CHF (congestive heart failure) (8) Sepsis (9) ARF (acute renal failure) Plan Creatinine, UOP stable. Patient has been non oliguric. Urine Eosinophils negative. Urine Na. is normal. Most likely has ATN. Continue gentle hydration and antibiotics - on NS + 20meq KCl at 75cc/hour. Avoid Nephrotoxins. Electryolytes stable. Anemia - planned endoscopy Wednesday Problem Qualifiers (1) Sepsis: Qualified Code: A41.9 - Sepsis, due to unspecified organism Jj Arteaga MD Mar 13, 2017 19:59
[2017-03-13 20:00] VITALS: BP 137/64; PULSE 77; RESP 18; TEMP 98.6; O2SAT 98
[2017-03-13] MEDS ORDERED: SODIUM CHLOR 0.9% 250 ML INJ 250 ML IV ONE (20:00)
[2017-03-14] VITALS (10 sets, daily range): BP systolic 115–162; BP diastolic 62–84; PULSE 54–101; RESP 16–20; TEMP 97–98.9; O2SAT 93–100
[2017-03-14] MEDS: PANTOPRAZOLE SODIUM 40 MG VIAL IV PUSH SCH
[2017-03-14] MEDS: NS + KCL 20 MEQ INJ 1,000 ML IV SCH ×3 (00:50→21:56)
[2017-03-14 05:24] LABS: AUTOMATED NEUTROPHIL # 8.4 TH/MM3 (1.8-7.7); BASOPHIL % 0.4 % (0.0-2.0); EOSINOPHIL # 0.2 TH/MM3 (0-0.4); HEMATOCRIT 32.2 % (39.0-51.0); HEMO FLAGS DIFF FINAL; LYMPH % 13.3 % (9.0-44.0); LYMPHOCYTE # 1.5 TH/MM3 (1.0-4.8); MEAN CELL VOLUME 85.6 FL (80.0-100.0); MEAN CORPUSCULAR HEMOGLOBIN 28.1 PG (27.0-34.0); MEAN CORPUSCULAR HGB CONC 32.8 % (32.0-36.0); MONO % 7.8 % (0.0-8.0); NEUT % 76.5 % (16.0-70.0); PLATELET COUNT 391 TH/MM3 (150-450); RED BLOOD COUNT 3.76 MIL/MM3 (4.50-5.90); RED CELL DISTRIBUTION WIDTH 17.9 % (11.6-17.2); WHITE BLOOD COUNT 10.9 TH/MM3 (4.0-11.0)
[2017-03-14 06:04] LABS: BICARBONATE 29.9 MEQ/L (21.0-32.0); POTASSIUM 3.6 MEQ/L (3.5-5.1)
[2017-03-14] MEDS: cloNIDine HCL 0.3 MG TAB PO SCH ×3 (06:51→21:47)
--- NOTE | 2017-03-14 07:17 | HHI.PR ---
Subjective Remarks Follow up for MRSA bacteremia/septic joints, anemia, malnutrition. Patient is the most alert I have seen in the last 3-4 days. He appears to be more coherent and pleasant as well. No fever, chills. Tolerating tube feed well. Objective Vitals Vital Signs Date Time Temp Pulse Resp B/P Pulse Ox O2 Delivery O2 Flow Rate FiO2 03/14/17 06:28 99 Nasal Cannula 2.00 03/14/17 04:00 97.4 76 20 138/71 100 03/14/17 03:10 98.5 70 18 131/66 98 03/14/17 01:04 98.5 72 18 126/63 99 03/14/17 00:47 98.2 69 18 115/63 98 03/14/17 00:00 98.2 69 18 115/63 98 03/13/17 20:30 Nasal Cannula 2.00 03/13/17 20:00 98.6 77 18 137/64 98 03/13/17 16:46 100 Nasal Cannula 2.00 03/13/17 16:25 98.3 73 18 150/79 100 03/13/17 10:20 20 03/13/17 08:03 97.9 72 18 133/70 100 I/O 03/13/17 03/13/17 03/13/17 03/14/17 03/14/17 03/14/17 07:00 15:00 23:00 07:00 15:00 23:00 Intake Total 777 ml Output Total 250 ml 1000 ml 550 ml 775 ml Balance -250 ml -1000 ml 227 ml -775 ml IV Total 777 ml Output Urine Total 250 ml 1000 ml 550 ml 775 ml # Bowel Movements 0 0 0 0 Result Diagram: 03/14/17 0503 03/14/17 0503 Imaging Last Impressions Abdomen X-Ray 03/08/17 0000 Signed Impressions: Service Date/Time: Wednesday, March 08, 2017 10:30 - CONCLUSION: Nonspecific, negative for obstruction or ileus. Isaac Stevenson MD FACR Chest X-Ray 03/02/17 0000 Signed Impressions: Service Date/Time: Thursday, March 02, 2017 13:26 - CONCLUSION: Interval develop of a small left-sided pleural effusion. Pulmonary venous congestion. Edenilson Oviedo MD Lower Extremity CT 03/01/17 0000 Signed Impressions: Service Date/Time: Wednesday, March 01, 2017 11:12 - CONCLUSION: 1. No evidence of organized fluid collections to suggest an abscess. 2. Extensive soft tissue swelling surrounding the ankle and extending to the forefoot especially along the lateral aspect. 3. No erosive or destructive bone changes. 4. Bone defects compatible with previous excision device. Blake Rider MD Ankle X-Ray 02/26/17 0000 Signed Impressions: Service Date/Time: Sunday, February 26, 2017 17:15 - CONCLUSION: I see no retained surgical instruments. Isaac Stevenson MD FACR Upper Extremity Ultrasound 02/25/17 1734 Signed Impressions: Service Date/Time: February 17:54 - CONCLUSION: There is a thin fluid collection within the focal area of soft tissue swelling 2nd digit. Oscar Cassidy MD Hand X-Ray 02/25/17 0000 Signed Impressions: Service Date/Time: February 18:59 - CONCLUSION: No gross bony abnormality. Oscar Cassidy MD Lower Extremity Ultrasound 02/24/17 0000 Signed Impressions: Service Date/Time: Friday, February 24, 2017 13:41 - CONCLUSION: Negative for deep venous thrombosis. Isaac Stevenson MD FACR Head CT 02/24/17 0000 Signed Impressions: Service Date/Time: Friday, February 24, 2017 16:08 - CONCLUSION: 1. No acute intracranial abnormality. 2. Probable large mucocele in the sphenoid sinus. Ty Hankins MD Abdomen/Pelvis CT 02/24/17 0000 Signed Impressions: Service Date/Time: Friday, February 24, 2017 16:16 - CONCLUSION: 1. Marked gaseous distension of large and small bowel most suggestive of ileus. 2. There is no free air. 3. 2.2 cm left adrenal mass. 4. Distended bladder. Isaac Stevenson MD FACR Objective Remarks GENERAL: SKIN: Warm and dry. HEAD: Normocephalic. EYES: No scleral icterus. No injection or drainage. NECK: Supple, trachea midline. No JVD or lymphadenopathy. CARDIOVASCULAR: Regular rate and rhythm without murmurs, gallops, or rubs. RESPIRATORY: Breath sounds equal bilaterally. No accessory muscle use. GASTROINTESTINAL: Abdomen soft, non-tender, nondistended. MUSCULOSKELETAL: RLE wrapped in dressing/FRANCISCO with distal edema. RUE wrapped in bulky surgical dressing, with distal edema, normal capillary refill. Left hand/ wrist wrapped in dressing BACK: Nontender without obvious deformity. No CVA tenderness. Procedures 03/10/2017 - Dr. Bullock exploration, wash, excisional debridement extensor tenosynovium right wrist/forearm/hand 03/08/17 - Dr. Bullock- exploration, wash, excisional debridement skin, subcutaneous tissue, extensor tenosynovitis right wrist and hand. Findings: necrotic tissue, minimal purulence, extensor tenosynovitis right wrist/hand 03/04/17 - Dr Gamez - Right leg and incision and drainage. Right foot delayed primary closure x3 03/04/17 - Dr. Bullock - Extensor tenosynovectomy second, third, fourth extensor compartments right wrist and excisional debridement wash index finger metacarpal phalangeal joint, excisional wash and excisional debridement left hand. 02/28/17 - Dr. Reyes - Right ankle wound debridement and washout. Implantation of antibiotic vancomycin beads. 02/28/17 - Dr. Bullock - Exploration, wash, excisional debridement index finger metacarpophalangeal joint right hand; Exploration, wash, excisional debridement metacarpophalangeal joint left index finger; Exploration, wash, excisional debridement extensor pollicis longus tendon right thumb and hand. 02/26/17 - Dr. Reyes - Right ankle incision and drainage, arthrotomy, removal infected hardware, bone biopsy. 02/26/17 - Dr. Bullock - Exploration, incision and drainage right hand abscess, Arthrotomy wash metacarpal phalangeal joint right index finger, Arthrotomy wash metacarpal phalangeal joint left index finger. A/P Problem List: (1) Sepsis ICD Code: A41.9 - Sepsis, unspecified organism Status: Acute (2) Right foot infection ICD Code: L08.9 - Local infection of the skin and subcutaneous tissue, unspecified Status: Acute (3) Encephalopathy ICD Code: G93.40 - Encephalopathy, unspecified Status: Acute (4) Alcoholism ICD Code: F10.20 - Alcohol dependence, uncomplicated Status: Acute Assessment and Plan 61-year-old male with history of right foot hardware, HTN, alcohol abuse, Hepatitis C, admitted with sepsis, MRSA bacteremia and septic joints, course complicated by severe agitated delirium and etoh withdrawal, improving. Sepsis with MRSA Bacteremia and Septic Joints: wound cultures from index fingers and right ankle with MRSA. Blood cultures also +MRSA. - S/p multiple surgeries with podiatry Dr. Reyes/Dr. Gamez on 02/26, 02/28, , and hand surgeon Dr. Bullock on 02/26, 02/28, 03/04, 03/08, 03/10. - Echo 02/28 negative for vegetation - Infectious disease consulted - Continue on antibiotics with IV Dapto and oral Rifampin - Per ID, will need intermodal truck driver IV abx plus oral Rimfampin for 6 weeks followed by oral suppression, recommends SNF placement for concern for noncompliance - continue pain control with oxycodone prn and IV dilaudid prn Anemia: Hgb 7.4 --> 6.7 --> 7.0. Poor nutrition - transfused one unit on 03/12/2017. Received transfusion overnight as well. Hgb today 10.6. - GI is following. Athletics Director directed calorie count ordered. Currently on pureed diet with thin liquids. - Patient underwent a tube placement. Continue tube feed. Free water flush 200cc Q6hrs. - Moderate Protein Calorie Malnutrition: Albumin 0.9. BMI 19. Acute Toxic/Metabolic Encephalopathy secondary to Sepsis and Acute Alcohol Withdrawal: admitted in ICU. - initially admitted to ICU with encephalopathy, severe agitation - symptoms improving Hypernatremia: Na 152 --> 150 --> 144. - Continue Tube feed with free water flushes. - Nephrology following. - Hypokalemia - K+ 2.9. Replaced with IV potassium. K+ improved to 3.6. Hypertension: BP much better controlled. -continue clonidine 0.3mg tid and coreg 6.25mg bid -monitor BP, adjust antihypertensives as needed Mild Systolic CHF: Echo 02/28 with EF 40-45% and global hypokinesis - Cardiology consulted, recommends continued medical management - Continue BB, unable to have ACEi with renal insufficiency - Continue lisinopril 2.5 mg by mouth daily. THADDEUS: Cr increased to 2, previously 0.86 on 02/28/17. -Nephrology following, likely had ATN -Continue gentle hydration -avoid nephrotoxins Hepatitis C: antibody positive DVT Prophylaxis: Lovenox on hold due to surgery. GI Prophylaxis: Protonix Problem Qualifiers (1) Sepsis: Zee Velasquez DO Mar 14, 2017 07:17
[2017-03-14] MEDS: LISINOPRIL 5 MG TAB PO SCH (09:05)
[2017-03-14] MEDS: MULTIVITAMIN TAB PO SCH (09:05)
[2017-03-14] MEDS: THIAMINE HCL 100 MG TAB PO SCH (09:05)
[2017-03-14] MEDS: RIFAMPIN 150 MG CAP PO SCH ×2 (09:05→21:47)
[2017-03-14] MEDS: MUPIROCIN 2% OINT 1 APPLIC/GM SYR NASAL SCH ×2 (09:05→21:00)
[2017-03-14] MEDS: CARVEDILOL 6.25 MG TAB PO SCH ×2 (09:05→21:47)
[2017-03-14] MEDS: SODIUM CHLORIDE 0.9% IV SCH (12:30)
[2017-03-14] MEDS: DAPTOMYCIN IV SCH (12:30)
[2017-03-14] MEDS ORDERED: PEG (High)/E-LYTE SOLN 4000 ML BTL PEG ONE (16:00)
--- NOTE | 2017-03-14 17:49 | HHI.NPPN ---
Subjective History of Present Illness 61 year old male with past medical history of hypertension, history of being homeless. He was admitted on February 25 with altered mental status and leukocytosis. I was called to see the patient because of elevated BUN and creatinine. Additional Remarks No acute complaints, ongoing hand pains Objective Data Data Vital Signs Date Time Temp Pulse Resp B/P (MAP) Pulse Ox O2 Delivery O2 Flow Rate FiO2 03/14/17 12:00 98.2 80 18 129/62 (84) 97 03/14/17 08:20 22 03/14/17 08:00 98.2 72 18 128/84 (99) 100 03/14/17 07:15 99 Nasal Cannula 2.00 03/14/17 06:28 99 Nasal Cannula 2.00 03/14/17 04:00 97.4 76 20 138/71 (93) 100 03/14/17 03:10 98.5 70 18 131/66 (87) 98 03/14/17 01:04 98.5 72 18 126/63 (84) 99 03/14/17 00:47 98.2 69 18 115/63 (80) 98 03/14/17 00:00 98.2 69 18 115/63 (80) 98 03/13/17 20:30 Nasal Cannula 2.00 03/13/17 20:00 98.6 77 18 137/64 (88) 98 -: 03/14/17 0503 03/14/17 0503 Physical Exam General Appearance: No Acute Distress, Anxious Eyes Eye Exam: Pupils Equal Throat Throat Exam: Oral Mucosa [place] & Moist Neck Neck Exam: Neck Supple Pulmonary Resp Exam: Breath Sounds Equal, No Distress, Rhonchi, Decreased Bases Cardiology CV Exam: Regular, Normal Sinus Rhythm Gastrointestinal/Abdomen GI Exam: Soft, Non-Tender, Bowel Sounds Present Extremeties Extremities Exam: Trace Edema Neurologic Neuro Exam: Alert, Awake, Oriented Psychiatric Psych Exam: Appropriate Responses Assessment/Plan Assessment Summary: THADDEUS/Acute Renal Failure Problem List: (1) Encephalopathy ICD Codes: G93.40 - Encephalopathy, unspecified Status: Acute (2) Essential hypertension ICD Codes: I10 - Essential (primary) hypertension Status: Acute (3) Hepatitis C, chronic ICD Codes: B18.2 - Chronic viral hepatitis C Status: Acute (4) Abscess of right hand including fingers ICD Codes: L02.511 - Cutaneous abscess of right hand Status: Acute (5) Abscess of left hand including fingers ICD Codes: L02.512 - Cutaneous abscess of left hand Status: Acute (6) Alcoholism ICD Codes: F10.20 - Alcohol dependence, uncomplicated Status: Acute (7) CHF (congestive heart failure) ICD Codes: I50.9 - Heart failure, unspecified Status: Acute (8) Sepsis ICD Codes: A41.9 - Sepsis, unspecified organism Status: Acute (9) ARF (acute renal failure) ICD Codes: N17.9 - Acute kidney failure, unspecified Status: Acute Plan Creatinine 1.8 -> 1.6 UOP improving - 2.3L / 24 hours Patient has been non oliguric. Urine Eosinophils negative. Urine Na. is normal. Most likely had ATN. Continue gentle hydration and antibiotics - on NS + 20meq KCl at 75cc/hour. Avoid Nephrotoxins. Electrolytes stable. Anemia - planned endoscopy Wednesday Problem Qualifiers (1) Sepsis: Jj Arteaga MD Mar 14, 2017 17:48
--- NOTE | 2017-03-14 21:31 | PD.ORT.PN ---
Subjective Subjective Remarks Patient confused. Reports mild pain right arm. Denies paresthesias. Objective Vitals Vital Signs Date Time Temp Pulse Resp B/P (MAP) Pulse Ox O2 Delivery O2 Flow Rate FiO2 03/14/17 20:00 98.9 101 16 162/78 (106) 99 03/14/17 18:29 18 03/14/17 16:30 97.0 54 18 154/75 (101) 93 03/14/17 12:00 98.2 80 18 129/62 (84) 97 03/14/17 08:00 98.2 72 18 128/84 (99) 100 03/14/17 07:15 99 Nasal Cannula 2.00 03/14/17 06:28 99 Nasal Cannula 2.00 03/14/17 04:00 97.4 76 20 138/71 (93) 100 03/14/17 03:10 98.5 70 18 131/66 (87) 98 03/14/17 01:04 98.5 72 18 126/63 (84) 99 03/14/17 00:47 98.2 69 18 115/63 (80) 98 03/14/17 00:00 98.2 69 18 115/63 (80) 98 I/O 03/13/17 03/13/17 03/13/17 03/14/17 03/14/17 03/14/17 07:00 15:00 23:00 07:00 15:00 23:00 Intake Total 777 ml 2518 ml Output Total 250 ml 1000 ml 550 ml 775 ml 1400 ml Balance -250 ml -1000 ml 227 ml -775 ml 1118 ml Intake Oral 480 ml IV Total 777 ml 1288 ml Tube Feeding 550 ml Other 200 ml Output Urine Total 250 ml 1000 ml 550 ml 775 ml 1400 ml # Bowel Movements 0 0 0 0 1 Result Diagram: 03/14/17 0503 03/14/17 0503 Objective Remarks Packing changed right forearm, vessel loops and abby in place, compartments soft and compressible, <2 sec capillary refill Left hand with sutures in place with minimal drainage. Good ROM fingers left hand, <2 sec capillary refill Assessment & Plan Problem List: (1) Infectious tenosynovitis of right wrist extensor ICD Codes: M65.131 - Other infective (teno)synovitis, right wrist Status: Acute (2) Abscess of right hand including fingers ICD Codes: L02.511 - Cutaneous abscess of right hand Status: Acute (3) septic arthritis metacarpophalangeal joint right index finger Status: Acute (4) septic arthritis metacarpophalangeal joint left index finger Status: Acute (5) Abscess of left hand including fingers ICD Codes: L02.512 - Cutaneous abscess of left hand Status: Acute (6) Hepatitis C, chronic ICD Codes: B18.2 - Chronic viral hepatitis C Status: Acute (7) Alcoholism ICD Codes: F10.20 - Alcohol dependence, uncomplicated Status: Acute Assessment and Plan dressings changed bilateral hands. continue Ab per primary team. dr costa to evaluate need for additional procedures right arm. will continue to follow Tere Nichols MD Mar 14, 2017 21:31
[2017-03-15] VITALS (7 sets, daily range): BP systolic 147–166; BP diastolic 71–86; PULSE 78–93; RESP 16–20; TEMP 98–99.2; O2SAT 92–99
[2017-03-15] MEDS: PANTOPRAZOLE SODIUM 40 MG VIAL IV PUSH SCH ×2 (00:12→22:55)
[2017-03-15] MEDS: cloNIDine HCL 0.3 MG TAB PO SCH ×3 (06:05→22:48)
[2017-03-15 08:50] LABS: BICARBONATE 28.2 MEQ/L (21.0-32.0); POTASSIUM 3.4 MEQ/L (3.5-5.1)
[2017-03-15 09:02] LABS: BASOPHIL % 0.3 % (0.0-2.0); EOSINOPHIL # 0.1 TH/MM3 (0-0.4); EOSINOPHIL % 1.1 % (0.0-4.0); HEMATOCRIT 30.1 % (39.0-51.0); HEMO FLAGS DIFF FINAL; LYMPH % 13.3 % (9.0-44.0); LYMPHOCYTE # 1.6 TH/MM3 (1.0-4.8); MEAN CELL VOLUME 85.6 FL (80.0-100.0); MEAN CORPUSCULAR HEMOGLOBIN 27.8 PG (27.0-34.0); MEAN CORPUSCULAR HGB CONC 32.5 % (32.0-36.0); MONO % 9.4 % (0.0-8.0); NEUT % 75.9 % (16.0-70.0); PLATELET COUNT 406 TH/MM3 (150-450); RED BLOOD COUNT 3.52 MIL/MM3 (4.50-5.90); RED CELL DISTRIBUTION WIDTH 17.5 % (11.6-17.2); WHITE BLOOD COUNT 11.8 TH/MM3 (4.0-11.0)
[2017-03-15] MEDS: MUPIROCIN 2% OINT 1 APPLIC/GM SYR NASAL SCH ×2 (09:52→21:00)
[2017-03-15] MEDS: RIFAMPIN 150 MG CAP PO SCH ×2 (09:53→21:06)
[2017-03-15] MEDS: MULTIVITAMIN TAB PO SCH (09:53)
[2017-03-15] MEDS: CARVEDILOL 6.25 MG TAB PO SCH ×2 (09:53→21:05)
[2017-03-15] MEDS: LISINOPRIL 5 MG TAB PO SCH (09:53)
[2017-03-15] MEDS: THIAMINE HCL 100 MG TAB PO SCH (09:53)
[2017-03-15] MEDS: SODIUM CHLORIDE 0.9% IV SCH (11:41)
[2017-03-15] MEDS: DAPTOMYCIN IV SCH (11:41)
[2017-03-15] MEDS: NS + KCL 20 MEQ INJ 1,000 ML IV SCH (11:42)
--- NOTE | 2017-03-15 13:51 | HHI.PR ---
Subjective Remarks Follow up for MRSA bacteremia/septic joints, anemia, malnutrition. Patient reports no fever, chills. Has somewhat of a flat affect. Objective Vitals Vital Signs Date Time Temp Pulse Resp B/P (MAP) Pulse Ox O2 Delivery O2 Flow Rate FiO2 03/15/17 11:46 98.6 78 18 156/71 (99) 98 03/15/17 10:00 Room Air 03/15/17 09:55 92 21 03/15/17 08:00 98.0 79 18 162/78 (106) 94 03/15/17 04:00 Nasal Cannula 2.00 03/15/17 04:00 98.2 93 16 149/78 (101) 99 03/15/17 00:00 98.0 81 18 150/77 (101) 99 03/15/17 00:00 Nasal Cannula 3.00 03/14/17 20:00 98.9 101 16 162/78 (106) 99 03/14/17 20:00 Nasal Cannula 3.00 03/14/17 18:29 18 03/14/17 16:30 97.0 54 18 154/75 (101) 93 I/O 03/14/17 03/14/17 03/14/17 03/15/17 03/15/17 03/15/17 07:00 15:00 23:00 07:00 15:00 23:00 Intake Total 2518 ml 916 ml Output Total 775 ml 1400 ml 1950 ml Balance -775 ml 1118 ml -1034 ml Intake Oral 480 ml 0 ml IV Total 1288 ml 916 ml Tube Feeding 550 ml Other 200 ml Output Urine Total 775 ml 1400 ml 1950 ml # Bowel Movements 0 1 3 Result Diagram: 03/15/17 0704 03/15/17 0704 Imaging Last Impressions Abdomen X-Ray 03/08/17 0000 Signed Impressions: Service Date/Time: Wednesday, March 08, 2017 10:30 - CONCLUSION: Nonspecific, negative for obstruction or ileus. Isaac Stevenson MD FACR Chest X-Ray 03/02/17 0000 Signed Impressions: Service Date/Time: Thursday, March 02, 2017 13:26 - CONCLUSION: Interval develop of a small left-sided pleural effusion. Pulmonary venous congestion. Edenilson Oviedo MD Lower Extremity CT 03/01/17 0000 Signed Impressions: Service Date/Time: Wednesday, March 01, 2017 11:12 - CONCLUSION: 1. No evidence of organized fluid collections to suggest an abscess. 2. Extensive soft tissue swelling surrounding the ankle and extending to the forefoot especially along the lateral aspect. 3. No erosive or destructive bone changes. 4. Bone defects compatible with previous excision device. Blake Rider MD Ankle X-Ray 02/26/17 0000 Signed Impressions: Service Date/Time: Sunday, February 26, 2017 17:15 - CONCLUSION: I see no retained surgical instruments. Isaac Stevenson MD FACR Upper Extremity Ultrasound 02/25/17 1734 Signed Impressions: Service Date/Time: February 17:54 - CONCLUSION: There is a thin fluid collection within the focal area of soft tissue swelling 2nd digit. Oscar Cassidy MD Hand X-Ray 02/25/17 0000 Signed Impressions: Service Date/Time: February 18:59 - CONCLUSION: No gross bony abnormality. Oscar Cassidy MD Lower Extremity Ultrasound 02/24/17 0000 Signed Impressions: Service Date/Time: Friday, February 24, 2017 13:41 - CONCLUSION: Negative for deep venous thrombosis. Isaac Stevenson MD FACR Head CT 02/24/17 0000 Signed Impressions: Service Date/Time: Friday, February 24, 2017 16:08 - CONCLUSION: 1. No acute intracranial abnormality. 2. Probable large mucocele in the sphenoid sinus. Ty Hankins MD Abdomen/Pelvis CT 02/24/17 0000 Signed Impressions: Service Date/Time: Friday, February 24, 2017 16:16 - CONCLUSION: 1. Marked gaseous distension of large and small bowel most suggestive of ileus. 2. There is no free air. 3. 2.2 cm left adrenal mass. 4. Distended bladder. Isaac Stevenson MD FACR Objective Remarks GENERAL: SKIN: Warm and dry. HEAD: Normocephalic. EYES: No scleral icterus. No injection or drainage. NECK: Supple, trachea midline. No JVD or lymphadenopathy. CARDIOVASCULAR: Regular rate and rhythm without murmurs, gallops, or rubs. RESPIRATORY: Breath sounds equal bilaterally. No accessory muscle use. GASTROINTESTINAL: Abdomen soft, non-tender, nondistended. MUSCULOSKELETAL: RLE wrapped in dressing/FRANCISCO with distal edema. RUE wrapped in bulky surgical dressing, with distal edema, normal capillary refill. Left hand/ wrist wrapped in dressing BACK: Nontender without obvious deformity. No CVA tenderness. Procedures 03/10/2017 - Dr. Bullock exploration, wash, excisional debridement extensor tenosynovium right wrist/forearm/hand 03/08/17 - Dr. Bullock- exploration, wash, excisional debridement skin, subcutaneous tissue, extensor tenosynovitis right wrist and hand. Findings: necrotic tissue, minimal purulence, extensor tenosynovitis right wrist/hand 03/04/17 - Dr Gamez - Right leg and incision and drainage. Right foot delayed primary closure x3 03/04/17 - Dr. Bullock - Extensor tenosynovectomy second, third, fourth extensor compartments right wrist and excisional debridement wash index finger metacarpal phalangeal joint, excisional wash and excisional debridement left hand. 02/28/17 - Dr. Reyes - Right ankle wound debridement and washout. Implantation of antibiotic vancomycin beads. 02/28/17 - Dr. Bullock - Exploration, wash, excisional debridement index finger metacarpophalangeal joint right hand; Exploration, wash, excisional debridement metacarpophalangeal joint left index finger; Exploration, wash, excisional debridement extensor pollicis longus tendon right thumb and hand. 02/26/17 - Dr. Reyes - Right ankle incision and drainage, arthrotomy, removal infected hardware, bone biopsy. 02/26/17 - Dr. Bullock - Exploration, incision and drainage right hand abscess, Arthrotomy wash metacarpal phalangeal joint right index finger, Arthrotomy wash metacarpal phalangeal joint left index finger. A/P Problem List: (1) Sepsis ICD Code: A41.9 - Sepsis, unspecified organism Status: Acute (2) Right foot infection ICD Code: L08.9 - Local infection of the skin and subcutaneous tissue, unspecified Status: Acute (3) Encephalopathy ICD Code: G93.40 - Encephalopathy, unspecified Status: Acute (4) Alcoholism ICD Code: F10.20 - Alcohol dependence, uncomplicated Status: Acute Assessment and Plan 61-year-old male with history of right foot hardware, HTN, alcohol abuse, Hepatitis C, admitted with sepsis, MRSA bacteremia and septic joints, course complicated by severe agitated delirium and etoh withdrawal, improving. Sepsis with MRSA Bacteremia and Septic Joints: wound cultures from index fingers and right ankle with MRSA. Blood cultures also +MRSA. - S/p multiple surgeries with podiatry Dr. Reyes/Dr. Gamez on 02/26, 02/28, , and hand surgeon Dr. Bullock on 02/26, 02/28, 03/04, 03/08, 03/10. - Echo 02/28 negative for vegetation - Infectious disease consulted - Continue on antibiotics with IV Dapto and oral Rifampin - Per ID, will need senior care IV abx plus oral Rimfampin for 6 weeks followed by oral suppression, recommends SNF placement for concern for noncompliance - continue pain control with oxycodone prn and IV dilaudid prn Anemia: Hgb 7.4 --> 6.7 --> 7.0. Poor nutrition - transfused one unit on 03/12/2017. Received transfusion overnight as well. Hgb 9.8 - GI is following. [employer] directed calorie count ordered. Currently on pureed diet with thin liquids. - Patient underwent a tube placement. Continue tube feed. Free water flush 200cc Q6hrs. - Moderate Protein Calorie Malnutrition: Albumin 0.9. BMI 19. Acute Toxic/Metabolic Encephalopathy secondary to Sepsis and Acute Alcohol Withdrawal - initially admitted to ICU with encephalopathy, severe agitation Hypernatremia: Na 152 --> 150 --> 144. - Continue Tube feed with free water flushes. - Nephrology following. - Hypokalemia - K+ 2.9. Replaced with IV potassium. K+ improved to 3.4. Hypertension: BP much better controlled. -continue clonidine 0.3mg tid and coreg 6.25mg bid -monitor BP, adjust antihypertensives as needed Mild Systolic CHF: Echo 02/28 with EF 40-45% and global hypokinesis - Cardiology consulted, recommends continued medical management - Continue BB, unable to have ACEi with renal insufficiency - Continue lisinopril 2.5 mg by mouth daily. THADDEUS: Cr increased to 2, previously 0.86 on 02/28/17. -Nephrology following, likely had ATN -Continue gentle hydration -avoid nephrotoxins Hepatitis C: antibody positive DVT Prophylaxis: Lovenox on hold due to surgery. GI Prophylaxis: Protonix Problem Qualifiers (1) Sepsis: Zee Velasquez DO Mar 15, 2017 13:51
--- NOTE | 2017-03-15 16:20 | HHI.PR ---
Subjective Remarks follow up multiple debridements right hand/wrist and forearm no fever responds to oral commands Objective Vital Signs Date Time Temp Pulse Resp B/P (MAP) Pulse Ox O2 Delivery O2 Flow Rate FiO2 03/15/17 11:46 98.6 78 18 156/71 (99) 98 03/15/17 10:00 Room Air 03/15/17 09:55 92 21 03/15/17 08:00 98.0 79 18 162/78 (106) 94 03/15/17 04:00 Nasal Cannula 2.00 03/15/17 04:00 98.2 93 16 149/78 (101) 99 03/15/17 00:00 98.0 81 18 150/77 (101) 99 03/15/17 00:00 Nasal Cannula 3.00 03/14/17 20:00 98.9 101 16 162/78 (106) 99 03/14/17 20:00 Nasal Cannula 3.00 03/14/17 18:29 18 03/14/17 16:30 97.0 54 18 154/75 (101) 93 I/O 03/14/17 03/14/17 03/14/17 03/15/17 03/15/17 03/15/17 06:59 14:59 22:59 06:59 14:59 22:59 Intake Total 2518 ml 916 ml Output Total 775 ml 1400 ml 1950 ml Balance -775 ml 1118 ml -1034 ml Intake Oral 480 ml 0 ml IV Total 1288 ml 916 ml Tube Feeding 550 ml Other 200 ml Output Urine Total 775 ml 1400 ml 1950 ml # Bowel Movements 0 1 3 right upper extremity: packing removed mild purulence noted with exposed tendons area measuring 2X2 cms decreased swelling no erythema noted repeat cultures right wrist: negative to date Result Diagram: 03/15/17 0704 03/15/17 0704 Assessment and Plan Assessment and Plan 61 year old male s/p incision and drainage, arthrotomy bilateral index finger MP joints, extensor tenosynovectomy POD 1 plan dressing changed and new packing inserted continue antibiotics based on ID recommendations will change packing in a day or two strict hand elevation over pillows finger range of motion exercises passively. Roque Bullock MD Mar 15, 2017 16:20
[2017-03-15] MEDS ORDERED: PROPOFOL 200 MG/20 ML AMP IV ONE (16:43)
[2017-03-15] MEDS ORDERED: PEG (High)/E-LYTE SOLN 4000 ML BTL PO ONE (16:45)
--- NOTE | 2017-03-15 18:07 | HHI.NPPN ---
Subjective History of Present Illness 61 year old male with past medical history of hypertension, history of being homeless. He was admitted on February 25 with altered mental status and leukocytosis. I was called to see the patient because of elevated BUN and creatinine. Additional Remarks Patient is awake, not fully oriented, not in distress. Objective Data Data 03/15/17 03/16/17 19:00 07:00 Intake Total 0 ml Output Total 1400 ml Balance -1400 ml Intake Oral 0 ml Output Urine Total 1400 ml # Bowel Movements 1 Vital Signs Date Time Temp Pulse Resp B/P (MAP) Pulse Ox O2 Delivery O2 Flow Rate FiO2 03/15/17 16:00 99.2 82 18 166/86 (112) 93 03/15/17 11:46 98.6 78 18 156/71 (99) 98 03/15/17 10:00 Room Air 03/15/17 09:55 92 21 03/15/17 08:00 98.0 79 18 162/78 (106) 94 03/15/17 04:00 Nasal Cannula 2.00 03/15/17 04:00 98.2 93 16 149/78 (101) 99 03/15/17 00:00 98.0 81 18 150/77 (101) 99 03/15/17 00:00 Nasal Cannula 3.00 03/14/17 20:00 98.9 101 16 162/78 (106) 99 03/14/17 20:00 Nasal Cannula 3.00 03/14/17 18:29 18 -: 03/15/17 0704 03/15/17 0704 Physical Exam General Appearance: No Acute Distress, Anxious Eyes Eye Exam: Pupils Equal Throat Throat Exam: Oral Mucosa [place] & Moist Neck Neck Exam: Neck Supple Pulmonary Resp Exam: Breath Sounds Equal, No Distress, Rhonchi, Decreased Bases Cardiology CV Exam: Regular, Normal Sinus Rhythm Gastrointestinal/Abdomen GI Exam: Soft, Non-Tender, Bowel Sounds Present Extremeties Extremities Exam: Trace Edema Neurologic Neuro Exam: Alert, Awake Assessment/Plan Assessment Summary: THADDEUS/Acute Renal Failure Problem List: (1) Encephalopathy ICD Codes: G93.40 - Encephalopathy, unspecified Status: Acute (2) Essential hypertension ICD Codes: I10 - Essential (primary) hypertension Status: Acute (3) Hepatitis C, chronic ICD Codes: B18.2 - Chronic viral hepatitis C Status: Acute (4) Abscess of right hand including fingers ICD Codes: L02.511 - Cutaneous abscess of right hand Status: Acute (5) Abscess of left hand including fingers ICD Codes: L02.512 - Cutaneous abscess of left hand Status: Acute (6) Alcoholism ICD Codes: F10.20 - Alcohol dependence, uncomplicated Status: Acute (7) CHF (congestive heart failure) ICD Codes: I50.9 - Heart failure, unspecified Status: Acute (8) Sepsis ICD Codes: A41.9 - Sepsis, unspecified organism Status: Acute (9) ARF (acute renal failure) ICD Codes: N17.9 - Acute kidney failure, unspecified Status: Acute Plan Patient has been non oliguric. Urine Eosinophils negative. Urine Na. is normal. Most likely had ATN. Creatinine now better, 1.4, To start GT feeding. Problem Qualifiers (1) Sepsis: Diane Barker MD Mar 15, 2017 18:07
[2017-03-16] VITALS (8 sets, daily range): BP systolic 112–155; BP diastolic 55–83; PULSE 69–83; RESP 16–20; TEMP 97.6–98.4; O2SAT 92–97
[2017-03-16] MEDS: NS + KCL 20 MEQ INJ 1,000 ML IV SCH ×2 (02:46→20:12)
[2017-03-16] MEDS: cloNIDine HCL 0.3 MG TAB PO SCH ×3 (06:01→21:33)
[2017-03-16] MEDS: RIFAMPIN 150 MG CAP PO SCH ×2 (09:46→21:33)
[2017-03-16] MEDS: MULTIVITAMIN TAB PO SCH (09:46)
[2017-03-16] MEDS: LISINOPRIL 5 MG TAB PO SCH (09:46)
[2017-03-16] MEDS: THIAMINE HCL 100 MG TAB PO SCH (09:46)
[2017-03-16] MEDS: MUPIROCIN 2% OINT 1 APPLIC/GM SYR NASAL SCH ×2 (09:46→21:00)
[2017-03-16] MEDS: CARVEDILOL 6.25 MG TAB PO SCH ×2 (09:46→21:33)
[2017-03-16 11:29] LABS: INDIRECT BILIRUBIN 0.2 MG/DL (0.0-0.8); TOTAL BILIRUBIN ADULT 0.3 MG/DL (0.2-1.0)
[2017-03-16] MEDS: DAPTOMYCIN IV SCH (11:34)
[2017-03-16] MEDS: SODIUM CHLORIDE 0.9% IV SCH (11:34)
[2017-03-16] MEDS ORDERED: SOD PHOSPHATE/SOD BIPHOSPHATE (ADULT) ENEMA 133ML RECTAL ONE (14:15)
[2017-03-16] MEDS ORDERED: PROPOFOL 200 MG/20 ML AMP IV PUSH ONE (15:00)
[2017-03-16] MEDS ORDERED: MIDAZOLAM HCL 2 MG/2 ML VIAL ONE (15:34)
--- NOTE | 2017-03-16 16:08 | PD.CARD.PN ---
Subjective Subjective Remarks No CP or SOB, mildly confused, c/o back pain Objective Medications Current Medications Medications (Trade) Dose Ordered Sig/Kayla Route Start Time Stop Time Status Last Admin (NS Flush) 2 ml UNSCH PRN IV FLUSH 02/24/17 13:45 02/24/17 13:38 (Zofran Inj) 4 mg Q8HR PRN IV PUSH 02/24/17 18:00 (Vitamin B1) 100 mg DAILY PO 02/25/17 09:00 03/16/17 09:46 (Romazicon Inj) 0.2 mg Q1M PRN IV PUSH 02/25/17 09:15 (Ativan) 1 mg Q4H PRN PO 02/25/17 09:15 03/04/17 09:13 (Ativan Inj) 1 mg Q4H PRN IV PUSH 02/25/17 09:15 03/05/17 02:41 (Theragran) 1 tab DAILY PO 02/26/17 09:00 03/16/17 09:46 (Ofirmev Inj) 650 mg Q6H PRN IV 02/25/17 21:00 03/06/17 20:12 (Trandate Inj) 10 mg Q6H PRN IV PUSH 02/25/17 23:15 (Protonix Inj) 40 mg Q24H IV PUSH 02/26/17 00:00 03/15/17 22:55 Miscellaneous Information Patient in critical care unit? Ass... [id number] .XX 02/26/17 07:15 (Bactroban Nasal 2% Oint) 1 applic BID NASAL 02/26/17 09:00 03/16/17 09:46 (Catapres) 0.3 mg Q8HR PO 02/26/17 22:11 03/16/17 14:45 (Roxicodone) 5 mg Q4H PRN PO 02/28/17 07:45 03/16/17 14:45 (Dilaudid Pf Inj) 0.5 mg Q3H PRN IV PUSH 02/28/17 07:45 03/13/17 07:57 (Rifampin) 300 mg Q12HR PO 03/02/17 21:00 03/16/17 09:46 (Coreg) 6.25 mg Q12HR PO 03/03/17 21:00 03/16/17 09:46 Daptomycin 550 mg/ Sodium Chloride 100 ml @ 200 mls/hr Q24H IV 03/06/17 12:00 03/16/17 11:34 (Dulcolax Supp) 10 mg DAILY PRN RECTAL 03/06/17 21:00 (Lactulose Liq) 30 ml DAILY PRN NG 03/06/17 21:00 03/07/17 18:45 (Colace Liq) 100 mg Q12HR PO 03/06/17 21:15 Future Hold 03/09/17 09:30 (Prinivil) 2.5 mg DAILY PO 03/09/17 09:00 03/16/17 09:46 (Pill Splitter) 1 ea UNSCH PRN OTHER 03/08/17 21:15 (Lovenox Inj) 40 mg Q24H SQ 03/10/17 13:00 Future Hold Potassium Chloride/Sodium Chloride 1,000 ml @ 75 mls/hr Q35H79H IV 03/13/17 11:30 03/16/17 02:46 (Fleets Enema (Adult)) 133 ml ONCE ONCE RECTAL 03/17/17 08:00 03/17/17 08:01 Vital Signs / I&O Vital Signs Date Time Temp Pulse Resp B/P (MAP) Pulse Ox O2 Delivery O2 Flow Rate FiO2 03/16/17 14:10 68 18 154/71 (98) 96 03/16/17 13:58 97.1 66 18 151/72 (98) 96 03/16/17 12:00 97.8 80 20 155/83 (107) 94 03/16/17 11:24 94 03/16/17 09:55 Room Air 03/16/17 08:00 98.4 83 20 154/81 (105) 94 03/16/17 04:00 97.7 78 18 152/76 (101) 93 03/16/17 04:00 Room Air 03/16/17 00:00 Room Air 03/16/17 00:00 98.2 80 18 152/78 (102) 95 03/15/17 20:00 Room Air 03/15/17 20:00 98.4 81 20 147/74 (98) 96 03/15/17 16:37 66 16 102/56 (71) 94 03/15/17 16:27 63 16 101/62 (75) 93 03/15/17 16:17 98.1 60 16 107/53 (71) 94 I/O 03/15/17 03/15/17 03/15/17 03/16/17 03/16/17 03/16/17 07:00 15:00 23:00 07:00 15:00 23:00 Intake Total 916 ml 0 ml 1212 ml 100 ml Output Total 1950 ml 1400 ml 1650 ml 350 ml Balance -1034 ml -1400 ml -438 ml -250 ml Intake Oral 0 ml 0 ml IV Total 916 ml 1212 ml Other 100 ml Output Urine Total 1950 ml 1400 ml 1650 ml 350 ml # Bowel Movements 3 1 3 Physical Exam GENERAL: In NAD SKIN: Warm and dry. HEAD: Normocephalic. EYES: No scleral icterus. No injection or drainage. NECK: Supple, trachea midline. No JVD or lymphadenopathy. CARDIOVASCULAR: Regular rate and rhythm without murmurs, gallops, or rubs. RESPIRATORY: Breath sounds equal bilaterally. No accessory muscle use. GASTROINTESTINAL: Abdomen soft, non-tender, nondistended. MUSCULOSKELETAL: No cyanosis, or edema. Laboratory Laboratory Tests Test 03/16/17 10:37 Total Bilirubin 0.3 MG/DL Direct Bilirubin 0.1 MG/DL Indirect Bilirubin 0.2 MG/DL Aspartate Amino Transf (AST/SGOT) 31 U/L Alanine Aminotransferase (ALT/SGPT) 18 U/L Alkaline Phosphatase 82 U/L C-Reactive Protein 10.50 MG/DL Total Protein 6.2 GM/DL Albumin 1.1 GM/DL Imaging Last Impressions Abdomen X-Ray 03/08/17 0000 Signed Impressions: Service Date/Time: Wednesday, March 08, 2017 10:30 - CONCLUSION: Nonspecific, negative for obstruction or ileus. Isaac Stevenson MD FACR Chest X-Ray 03/02/17 0000 Signed Impressions: Service Date/Time: Thursday, March 02, 2017 13:26 - CONCLUSION: Interval develop of a small left-sided pleural effusion. Pulmonary venous congestion. Edenilson Oviedo MD Lower Extremity CT 03/01/17 0000 Signed Impressions: Service Date/Time: Wednesday, March 01, 2017 11:12 - CONCLUSION: 1. No evidence of organized fluid collections to suggest an abscess. 2. Extensive soft tissue swelling surrounding the ankle and extending to the forefoot especially along the lateral aspect. 3. No erosive or destructive bone changes. 4. Bone defects compatible with previous excision device. Blake Rider MD Ankle X-Ray 02/26/17 0000 Signed Impressions: Service Date/Time: Sunday, February 26, 2017 17:15 - CONCLUSION: I see no retained surgical instruments. Isaac Stevenson MD FACR Upper Extremity Ultrasound 02/25/17 1734 Signed Impressions: Service Date/Time: February 17:54 - CONCLUSION: There is a thin fluid collection within the focal area of soft tissue swelling 2nd digit. Oscar Cassidy MD Hand X-Ray 02/25/17 0000 Signed Impressions: Service Date/Time: February 18:59 - CONCLUSION: No gross bony abnormality. Oscar Cassidy MD Lower Extremity Ultrasound 02/24/17 0000 Signed Impressions: Service Date/Time: Friday, February 24, 2017 13:41 - CONCLUSION: Negative for deep venous thrombosis. Isaac Stevenson MD FACR Head CT 02/24/17 0000 Signed Impressions: Service Date/Time: Friday, February 24, 2017 16:08 - CONCLUSION: 1. No acute intracranial abnormality. 2. Probable large mucocele in the sphenoid sinus. Ty Hankins MD Abdomen/Pelvis CT 02/24/17 0000 Signed Impressions: Service Date/Time: Friday, February 24, 2017 16:16 - CONCLUSION: 1. Marked gaseous distension of large and small bowel most suggestive of ileus. 2. There is no free air. 3. 2.2 cm left adrenal mass. 4. Distended bladder. Isaac Stevenson MD FACR Assessment and Plan Problem List: (1) CHF (congestive heart failure) ICD Codes: I50.9 - Heart failure, unspecified Status: Acute (2) Cardiomyopathy ICD Codes: I42.9 - Cardiomyopathy, unspecified Status: Acute (3) ARF (acute renal failure) ICD Codes: N17.9 - Acute kidney failure, unspecified Status: Acute (4) Alcoholism ICD Codes: F10.20 - Alcohol dependence, uncomplicated Status: Acute (5) Tobacco use disorder ICD Codes: Z72.0 - Tobacco use Status: Acute (6) Sepsis ICD Codes: A41.9 - Sepsis, unspecified organism Status: Acute Assessment and Plan CHF remains stable. Continue current management including carvedilol and lisinopril. Titrate lisinopril as tolerated; continue to monitor renal fx. Increase activity, PT. Problem Qualifiers (1) Sepsis: Raquel Escobar MD Mar 16, 2017 16:08
--- NOTE | 2017-03-16 17:53 | HHI.PR ---
Subjective Remarks Follow up for MRSA bacteremia/septic joints, anemia, malnutrition. Patient is resting well in bed. No fever, chills. Objective Vitals Vital Signs Date Time Temp Pulse Resp B/P (MAP) Pulse Ox O2 Delivery O2 Flow Rate FiO2 03/16/17 16:00 98.0 76 20 137/75 (95) 97 03/16/17 14:10 68 18 154/71 (98) 96 03/16/17 13:58 97.1 66 18 151/72 (98) 96 03/16/17 12:00 97.8 80 20 155/83 (107) 94 03/16/17 11:24 94 03/16/17 09:55 Room Air 03/16/17 08:00 98.4 83 20 154/81 (105) 94 03/16/17 04:00 97.7 78 18 152/76 (101) 93 03/16/17 04:00 Room Air 03/16/17 00:00 Room Air 03/16/17 00:00 98.2 80 18 152/78 (102) 95 03/15/17 20:00 Room Air 03/15/17 20:00 98.4 81 20 147/74 (98) 96 I/O 03/15/17 03/15/17 03/15/17 03/16/17 03/16/17 03/16/17 06:59 14:59 22:59 06:59 14:59 22:59 Intake Total 916 ml 0 ml 1212 ml 100 ml 100 ml Output Total 1950 ml 1400 ml 1650 ml 350 ml Balance -1034 ml -1400 ml -438 ml -250 ml 100 ml Intake Oral 0 ml 0 ml IV Total 916 ml 1212 ml 100 ml Other 100 ml Output Urine Total 1950 ml 1400 ml 1650 ml 350 ml # Bowel Movements 3 1 3 Result Diagram: 03/15/1770303/15/17703 Objective Remarks GENERAL: SKIN: Warm and dry. HEAD: Normocephalic. EYES: No scleral icterus. No injection or drainage. NECK: Supple, trachea midline. No JVD or lymphadenopathy. CARDIOVASCULAR: Regular rate and rhythm without murmurs, gallops, or rubs. RESPIRATORY: Breath sounds equal bilaterally. No accessory muscle use. GASTROINTESTINAL: Abdomen soft, non-tender, nondistended. MUSCULOSKELETAL: RLE wrapped in dressing/FRANCISCO with distal edema. RUE wrapped in bulky surgical dressing, with distal edema, normal capillary refill. Left hand/ wrist wrapped in dressing BACK: Nontender without obvious deformity. No CVA tenderness. Procedures 03/10/2017 - Dr. Bullock exploration, wash, excisional debridement extensor tenosynovium right wrist/forearm/hand 03/08/17 - Dr. Bullock- exploration, wash, excisional debridement skin, subcutaneous tissue, extensor tenosynovitis right wrist and hand. Findings: necrotic tissue, minimal purulence, extensor tenosynovitis right wrist/hand 03/04/17 - Dr Gamez - Right leg and incision and drainage. Right foot delayed primary closure x3 03/04/17 - Dr. Bullock - Extensor tenosynovectomy second, third, fourth extensor compartments right wrist and excisional debridement wash index finger metacarpal phalangeal joint, excisional wash and excisional debridement left hand. 02/28/17 - Dr. Reyes - Right ankle wound debridement and washout. Implantation of antibiotic vancomycin beads. 02/28/17 - Dr. Bullock - Exploration, wash, excisional debridement index finger metacarpophalangeal joint right hand; Exploration, wash, excisional debridement metacarpophalangeal joint left index finger; Exploration, wash, excisional debridement extensor pollicis longus tendon right thumb and hand. 02/26/17 - Dr. Reyes - Right ankle incision and drainage, arthrotomy, removal infected hardware, bone biopsy. 02/26/17 - Dr. Bullock - Exploration, incision and drainage right hand abscess, Arthrotomy wash metacarpal phalangeal joint right index finger, Arthrotomy wash metacarpal phalangeal joint left index finger. A/P Problem List: (1) Sepsis ICD Code: A41.9 - Sepsis, unspecified organism Status: Acute (2) Right foot infection ICD Code: L08.9 - Local infection of the skin and subcutaneous tissue, unspecified Status: Acute (3) Encephalopathy ICD Code: G93.40 - Encephalopathy, unspecified Status: Acute (4) Alcoholism ICD Code: F10.20 - Alcohol dependence, uncomplicated Status: Acute Assessment and Plan 61-year-old male with history of right foot hardware, HTN, alcohol abuse, Hepatitis C, admitted with sepsis, MRSA bacteremia and septic joints, course complicated by severe agitated delirium and etoh withdrawal, improving. Sepsis with MRSA Bacteremia and Septic Joints: wound cultures from index fingers and right ankle with MRSA. Blood cultures also +MRSA. - S/p multiple surgeries with podiatry Dr. Reyes/Dr. Gamez on 02/26, 02/28, , and hand surgeon Dr. Bullock on 02/26, 02/28, 03/04, 03/08, 03/10. 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 Anemia: Hgb 7.4 --> 6.7 --> 7.0. Poor nutrition - transfused one unit on 03/12/2017. Received transfusion overnight as well. Hgb 9.8 - GI is following. Head Boys Golf Coach directed calorie count ordered. Currently on pureed diet with thin liquids. - Patient underwent a tube placement. Continue tube feed. Free water flush 200cc Q6hrs. - Moderate Protein Calorie Malnutrition: Albumin 0.9. BMI 19. Acute Toxic/Metabolic Encephalopathy secondary to Sepsis and Acute Alcohol Withdrawal - initially admitted to ICU with encephalopathy, severe agitation Hypernatremia: Na 152 --> 150 --> 144. - Continue Tube feed with free water flushes. - Nephrology following. - Hypokalemia - K+ 2.9. Replaced with IV potassium. K+ improved to 3.4. Hypertension: BP much better controlled. -continue clonidine 0.3mg tid and coreg 6.25mg bid -monitor BP, adjust antihypertensives as needed Mild Systolic CHF: Echo 02/28 with EF 40-45% and global hypokinesis - Cardiology consulted, recommends continued medical management - Continue BB, unable to have ACEi with renal insufficiency - Continue lisinopril 2.5 mg by mouth daily. THADDEUS: Cr increased to 2, previously 0.86 on 02/28/17. -Nephrology following, likely had ATN -Continue gentle hydration -avoid nephrotoxins Hepatitis C: antibody positive DVT Prophylaxis: Lovenox on hold due to surgery. GI Prophylaxis: Protonix Discussed with Hand Surgeon. Problem Qualifiers (1) Sepsis: Zee Velasquez DO Mar 16, 2017 17:53
--- NOTE | 2017-03-16 18:20 | HHI.NPPN ---
Subjective History of Present Illness 61 year old male with past medical history of hypertension, history of being homeless. He was admitted on February 25 with altered mental status and leukocytosis. I was called to see the patient because of elevated BUN and creatinine. Additional Remarks Patient has pain in hand, now with PEG feeding. Objective Data Data 03/16/17 03/17/17 19:00 07:00 Intake Total 200 ml Output Total 350 ml Balance -150 ml IV Total 100 ml Other 100 ml Output Urine Total 350 ml Vital Signs Date Time Temp Pulse Resp B/P (MAP) Pulse Ox O2 Delivery O2 Flow Rate FiO2 03/16/17 16:00 98.0 76 20 137/75 (95) 97 03/16/17 14:10 68 18 154/71 (98) 96 03/16/17 13:58 97.1 66 18 151/72 (98) 96 03/16/17 12:00 97.8 80 20 155/83 (107) 94 03/16/17 11:24 94 03/16/17 09:55 Room Air 03/16/17 08:00 98.4 83 20 154/81 (105) 94 03/16/17 04:00 97.7 78 18 152/76 (101) 93 03/16/17 04:00 Room Air 03/16/17 00:00 Room Air 03/16/17 00:00 98.2 80 18 152/78 (102) 95 03/15/17 20:00 Room Air 03/15/17 20:00 98.4 81 20 147/74 (98) 96 -: 03/15/17 0704 03/15/17 0704 Physical Exam General Appearance: No Acute Distress, Anxious Eyes Eye Exam: Pupils Equal Throat Throat Exam: Oral Mucosa [place]strom & Moist Neck Neck Exam: Neck Supple Pulmonary Resp Exam: Breath Sounds Equal, No Distress, Rhonchi, Decreased Bases Cardiology CV Exam: Regular, Normal Sinus Rhythm Gastrointestinal/Abdomen GI Exam: Soft, Non-Tender, Bowel Sounds Present Extremeties Extremities Exam: Trace Edema Neurologic Neuro Exam: Alert, Awake, Oriented Psychiatric Psych Exam: Appropriate Responses Assessment/Plan Assessment Summary: THADDEUS/Acute Renal Failure Problem List: (1) Encephalopathy ICD Codes: G93.40 - Encephalopathy, unspecified Status: Acute (2) Essential hypertension ICD Codes: I10 - Essential (primary) hypertension Status: Acute (3) Hepatitis C, chronic ICD Codes: B18.2 - Chronic viral hepatitis C Status: Acute (4) Abscess of right hand including fingers ICD Codes: L02.511 - Cutaneous abscess of right hand Status: Acute (5) Abscess of left hand including fingers ICD Codes: L02.512 - Cutaneous abscess of left hand Status: Acute (6) Alcoholism ICD Codes: F10.20 - Alcohol dependence, uncomplicated Status: Acute (7) CHF (congestive heart failure) ICD Codes: I50.9 - Heart failure, unspecified Status: Acute (8) Sepsis ICD Codes: A41.9 - Sepsis, unspecified organism Status: Acute (9) ARF (acute renal failure) ICD Codes: N17.9 - Acute kidney failure, unspecified Status: Acute Plan Patient has been non oliguric. Urine Eosinophils negative. Urine Na. is normal. Most likely had ATN. No new BMP. Last Creatinine was 1.4. Avoid Nephrotoxins. Problem Qualifiers (1) Sepsis: Diane Barker MD Mar 16, 2017 18:20
[2017-03-17 04:28] VITALS: BP 137/70; PULSE 73; RESP 16; TEMP 97.9; O2SAT 93
[2017-03-17] MEDS: cloNIDine HCL 0.3 MG TAB PO SCH ×3 (05:59→21:37)
[2017-03-17 08:00] VITALS: BP 147/69; PULSE 81; RESP 20; TEMP 98.6; O2SAT 93
[2017-03-17] MEDS ORDERED: SOD PHOSPHATE/SOD BIPHOSPHATE (ADULT) ENEMA 133ML RECTAL ONE (08:00)
--- NOTE | 2017-03-17 09:34 | HHI.PR ---
Subjective Remarks Follow up for MRSA bacteremia/septic joints, anemia, malnutrition. Patient appears more alert and somewhat agitated as well. He wants to drink water. Per nursing he has not voided on his own yet. He required straight catheter. Bladder scan earlier apparently showed urinary retention. Objective Vitals Vital Signs Date Time Temp Pulse Resp B/P (MAP) Pulse Ox O2 Delivery O2 Flow Rate FiO2 03/17/17 08:00 98.6 81 20 147/69 (95) 93 03/17/17 04:28 97.9 73 16 137/70 (92) 93 03/16/17 23:00 97.8 69 16 112/55 (74) 92 03/16/17 20:33 97.6 77 16 146/77 (100) 95 03/16/17 20:19 Room Air 03/16/17 16:00 98.0 76 20 137/75 (95) 97 03/16/17 14:10 68 18 154/71 (98) 96 03/16/17 13:58 97.1 66 18 151/72 (98) 96 03/16/17 12:00 97.8 80 20 155/83 (107) 94 03/16/17 11:24 94 03/16/17 09:55 Room Air I/O 03/16/17 03/16/17 03/16/17 03/17/17 03/17/17 03/17/17 07:00 15:00 23:00 07:00 15:00 23:00 Intake Total 1212 ml 100 ml 1845 ml 0 ml Output Total 1650 ml 350 ml 1400 ml 500 ml Balance -438 ml -250 ml 445 ml -500 ml Intake Oral 0 ml 0 ml IV Total 1212 ml 1845 ml Other 100 ml Output Urine Total 1650 ml 350 ml 1400 ml 500 ml Bladder Scan Volume Amount 587 ml 522 ml 587 ml # Bowel Movements 3 1 0 Result Diagram: 03/15/17 0704 03/15/17 0704 Imaging Last Impressions Abdomen X-Ray 03/08/17 0000 Signed Impressions: Service Date/Time: Wednesday, March 08, 2017 10:30 - CONCLUSION: Nonspecific, negative for obstruction or ileus. Isaac Stevenson MD FACR Chest X-Ray 03/02/17 0000 Signed Impressions: Service Date/Time: Thursday, March 02, 2017 13:26 - CONCLUSION: Interval develop of a small left-sided pleural effusion. Pulmonary venous congestion. Edenilson Oviedo MD Lower Extremity CT 03/01/17 0000 Signed Impressions: Service Date/Time: Wednesday, March 01, 2017 11:12 - CONCLUSION: 1. No evidence of organized fluid collections to suggest an abscess. 2. Extensive soft tissue swelling surrounding the ankle and extending to the forefoot especially along the lateral aspect. 3. No erosive or destructive bone changes. 4. Bone defects compatible with previous excision device. Blake Rider MD Ankle X-Ray 02/26/17 0000 Signed Impressions: Service Date/Time: Sunday, February 26, 2017 17:15 - CONCLUSION: I see no retained surgical instruments. Isaac Stevenson MD FACR Upper Extremity Ultrasound 02/25/17 1734 Signed Impressions: Service Date/Time: February 17:54 - CONCLUSION: There is a thin fluid collection within the focal area of soft tissue swelling 2nd digit. Oscar Cassidy MD Hand X-Ray 02/25/17 0000 Signed Impressions: Service Date/Time: February 18:59 - CONCLUSION: No gross bony abnormality. Oscar Cassidy MD Lower Extremity Ultrasound 02/24/17 0000 Signed Impressions: Service Date/Time: Friday, February 24, 2017 13:41 - CONCLUSION: Negative for deep venous thrombosis. Isaac Stevenson MD FACR Head CT 02/24/17 0000 Signed Impressions: Service Date/Time: Friday, February 24, 2017 16:08 - CONCLUSION: 1. No acute intracranial abnormality. 2. Probable large mucocele in the sphenoid sinus. Ty Hankins MD Abdomen/Pelvis CT 02/24/17 0000 Signed Impressions: Service Date/Time: Friday, February 24, 2017 16:16 - CONCLUSION: 1. Marked gaseous distension of large and small bowel most suggestive of ileus. 2. There is no free air. 3. 2.2 cm left adrenal mass. 4. Distended bladder. Isaac Stevenson MD FACR Objective Remarks GENERAL: SKIN: Warm and dry. HEAD: Normocephalic. EYES: No scleral icterus. No injection or drainage. NECK: Supple, trachea midline. No JVD or lymphadenopathy. CARDIOVASCULAR: Regular rate and rhythm without murmurs, gallops, or rubs. RESPIRATORY: Breath sounds equal bilaterally. No accessory muscle use. GASTROINTESTINAL: Abdomen soft, non-tender, nondistended. MUSCULOSKELETAL: RLE wrapped in dressing/FRANCISCO with distal edema. RUE wrapped in bulky surgical dressing, with distal edema, normal capillary refill. Left hand/ wrist wrapped in dressing BACK: Nontender without obvious deformity. No CVA tenderness. Procedures 03/10/2017 - Dr. Bullock exploration, wash, excisional debridement extensor tenosynovium right wrist/forearm/hand 03/08/17 - Dr. Bullock- exploration, wash, excisional debridement skin, subcutaneous tissue, extensor tenosynovitis right wrist and hand. Findings: necrotic tissue, minimal purulence, extensor tenosynovitis right wrist/hand 03/04/17 - Dr Gamez - Right leg and incision and drainage. Right foot delayed primary closure x3 03/04/17 - Dr. Bullock - Extensor tenosynovectomy second, third, fourth extensor compartments right wrist and excisional debridement wash index finger metacarpal phalangeal joint, excisional wash and excisional debridement left hand. 02/28/17 - Dr. Reyes - Right ankle wound debridement and washout. Implantation of antibiotic vancomycin beads. 02/28/17 - Dr. Bullock - Exploration, wash, excisional debridement index finger metacarpophalangeal joint right hand; Exploration, wash, excisional debridement metacarpophalangeal joint left index finger; Exploration, wash, excisional debridement extensor pollicis longus tendon right thumb and hand. 02/26/17 - Dr. Reyes - Right ankle incision and drainage, arthrotomy, removal infected hardware, bone biopsy. 02/26/17 - Dr. Bullock - Exploration, incision and drainage right hand abscess, Arthrotomy wash metacarpal phalangeal joint right index finger, Arthrotomy wash metacarpal phalangeal joint left index finger. A/P Problem List: (1) Sepsis ICD Code: A41.9 - Sepsis, unspecified organism Status: Acute (2) Right foot infection ICD Code: L08.9 - Local infection of the skin and subcutaneous tissue, unspecified Status: Acute (3) Encephalopathy ICD Code: G93.40 - Encephalopathy, unspecified Status: Acute (4) Alcoholism ICD Code: F10.20 - Alcohol dependence, uncomplicated Status: Acute Assessment and Plan 61-year-old male with history of right foot hardware, HTN, alcohol abuse, Hepatitis C, admitted with sepsis, MRSA bacteremia and septic joints, course complicated by severe agitated delirium and etoh withdrawal, improving. Sepsis with MRSA Bacteremia and Septic Joints: wound cultures from index fingers and right ankle with MRSA. Blood cultures also +MRSA. - S/p multiple surgeries with podiatry Dr. Reyes/Dr. Gamez on 02/26, 02/28, , and hand surgeon Dr. Bullock on 02/26, 02/28, 03/04, 03/08, 03/10. 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 Anemia: Hgb 7.4 --> 6.7 --> 7.0. Poor nutrition - transfused one unit on 03/12/2017. Received transfusion overnight as well. Hgb 9.8 - GI is following. Production Service Manager directed calorie count ordered. Currently on pureed diet with thin liquids. - Patient underwent a tube placement. Continue tube feed. Free water flush 200cc Q6hrs. - Moderate Protein Calorie Malnutrition: Albumin 0.9. BMI 19. Acute Toxic/Metabolic Encephalopathy secondary to Sepsis and Acute Alcohol Withdrawal - initially admitted to ICU with encephalopathy, severe agitation Hypernatremia: Na 152 --> 150 --> 144. - Continue Tube feed with free water flushes. - Nephrology following. - Hypokalemia - K+ 2.9. Replaced with IV potassium. K+ improved to 3.4. Hypertension: BP much better controlled. -continue clonidine 0.3mg tid and coreg 6.25mg bid -monitor BP, adjust antihypertensives as needed Mild Systolic CHF: Echo 02/28 with EF 40-45% and global hypokinesis - Cardiology consulted, recommends continued medical management - Continue BB, unable to have ACEi with renal insufficiency - Continue lisinopril 2.5 mg by mouth daily. THADDEUS: Cr increased to 2, previously 0.86 on 02/28/17. -Nephrology following, likely had ATN -Continue gentle hydration. Creatinine 1.45 on 03/15/2017. -avoid nephrotoxins. - CBC, CMP in the AM. Urinary retention - If patient does not void by 1230PM, we will consider Briseno catheter. Hepatitis C: antibody positive DVT Prophylaxis: Lovenox on hold due to surgery. GI Prophylaxis: Protonix Discussed with RN. Problem Qualifiers (1) Sepsis: Zee Velasquez DO Mar 17, 2017 09:34
[2017-03-17] MEDS: CARVEDILOL 6.25 MG TAB PO SCH ×2 (09:48→21:37)
[2017-03-17] MEDS: THIAMINE HCL 100 MG TAB PO SCH (09:48)
[2017-03-17] MEDS: MULTIVITAMIN TAB PO SCH (09:48)
[2017-03-17] MEDS: RIFAMPIN 150 MG CAP PO SCH ×2 (09:48→21:37)
[2017-03-17] MEDS: LISINOPRIL 5 MG TAB PO SCH (09:48)
[2017-03-17] MEDS: MUPIROCIN 2% OINT 1 APPLIC/GM SYR NASAL SCH ×2 (09:48→21:37)
[2017-03-17] MEDS: NS + KCL 20 MEQ INJ 1,000 ML IV SCH ×2 (09:50→23:48)
[2017-03-17 12:00] VITALS: BP 128/68; PULSE 80; RESP 20; TEMP 98.1; O2SAT 94
[2017-03-17] MEDS: SODIUM CHLORIDE 0.9% IV SCH (13:09)
[2017-03-17] MEDS: DAPTOMYCIN IV SCH (13:09)
[2017-03-17] MEDS: HYDROmorphone HCL PF 1 MG/ML VIAL IV PUSH PRN (13:18)
[2017-03-17 14:33] VITALS: O2SAT 94
--- NOTE | 2017-03-17 16:39 | HHI.GIFU ---
Subjective Remarks Resting in bed. Confused. No active bleeding. Tolerating tf. (Delia Zimmerman) Objective Vitals I&O Vital Signs Date Time Temp Pulse Resp B/P (MAP) Pulse Ox O2 Delivery O2 Flow Rate FiO2 03/17/17 14:33 94 03/17/17 12:00 98.1 80 20 128/68 (88) 94 03/17/17 08:00 98.6 81 20 147/69 (95) 93 03/17/17 08:00 Nasal Cannula 2.00 03/17/17 04:28 97.9 73 16 137/70 (92) 93 03/16/17 23:00 97.8 69 16 112/55 (74) 92 03/16/17 20:33 97.6 77 16 146/77 (100) 95 03/16/17 20:19 Room Air I/O 03/16/17 03/16/17 03/16/17 03/17/17 03/17/17 03/17/17 07:00 15:00 23:00 07:00 15:00 23:00 Intake Total 1212 ml 100 ml 1845 ml 0 ml 1000 ml Output Total 1650 ml 350 ml 1400 ml 500 ml Balance -438 ml -250 ml 445 ml -500 ml 1000 ml Intake Oral 0 ml 0 ml IV Total 1212 ml 1845 ml 1000 ml Other 100 ml Output Urine Total 1650 ml 350 ml 1400 ml 500 ml Bladder Scan Volume Amount 587 ml 522 ml 587 ml 499 ml # Bowel Movements 3 1 0 Laboratory Date/Time Source Procedure Growth Status 03/02/17 09:24 Blood Peripheral Aerobic Blood Culture - Final NO GROWTH IN 5 DAYS Complete 03/02/17 09:24 Blood Peripheral Anaerobic Blood Culture - Final NO GROWTH IN 5 DAYS Complete 03/02/17 13:30 Urine Catheterized Urine Urine Culture - Final NO GROWTH IN 48 HOURS. Complete 03/08/17 00:00 Wound Wrist Fungal Smear - Final NO FUNGAL ELEMENTS SEEN. Resulted 03/08/17 00:00 Wound Wrist Fungal Culture - Preliminary NO GROWTH IN 1 WEEK Resulted Imaging Last Impressions Abdomen X-Ray 03/08/17 0000 Signed Impressions: Service Date/Time: Wednesday, March 08, 2017 10:30 - CONCLUSION: Nonspecific, negative for obstruction or ileus. Isaac Stevenson MD FACR Chest X-Ray 03/02/17 0000 Signed Impressions: Service Date/Time: Thursday, March 02, 2017 13:26 - CONCLUSION: Interval develop of a small left-sided pleural effusion. Pulmonary venous congestion. Edenilson Oviedo MD Lower Extremity CT 03/01/17 0000 Signed Impressions: Service Date/Time: Wednesday, March 01, 2017 11:12 - CONCLUSION: 1. No evidence of organized fluid collections to suggest an abscess. 2. Extensive soft tissue swelling surrounding the ankle and extending to the forefoot especially along the lateral aspect. 3. No erosive or destructive bone changes. 4. Bone defects compatible with previous excision device. Blake Rider MD Ankle X-Ray 02/26/17 0000 Signed Impressions: Service Date/Time: Sunday, February 26, 2017 17:15 - CONCLUSION: I see no retained surgical instruments. Isaac Stevenson MD FACR Upper Extremity Ultrasound 02/25/17 1734 Signed Impressions: Service Date/Time: February 17:54 - CONCLUSION: There is a thin fluid collection within the focal area of soft tissue swelling 2nd digit. Oscar Cassidy MD Hand X-Ray 02/25/17 0000 Signed Impressions: Service Date/Time: February 18:59 - CONCLUSION: No gross bony abnormality. Oscar Cassidy MD Lower Extremity Ultrasound 02/24/17 0000 Signed Impressions: Service Date/Time: Friday, February 24, 2017 13:41 - CONCLUSION: Negative for deep venous thrombosis. Isaac Stevenson MD FACR Head CT 02/24/17 0000 Signed Impressions: Service Date/Time: Friday, February 24, 2017 16:08 - CONCLUSION: 1. No acute intracranial abnormality. 2. Probable large mucocele in the sphenoid sinus. Ty Hankins MD Abdomen/Pelvis CT 02/24/17 0000 Signed Impressions: Service Date/Time: Friday, February 24, 2017 16:16 - CONCLUSION: 1. Marked gaseous distension of large and small bowel most suggestive of ileus. 2. There is no free air. 3. 2.2 cm left adrenal mass. 4. Distended bladder. Isaac Stevenson MD FACR Physical Exam HEENT: Normocephalic; atraumatic; no jaundice CHEST: CTA CARDIAC: RRR ABDOMEN: Soft, nondistended, nontender; no hepatosplenomegaly; bowel sounds are present in all four quadrants. PEG tube site without redness or swelling EXTREMITIES: RUE in colle sling with brace/drsg d/i SKIN: Bulky yen wrap drsg to RUE d/i, drsg to right ankle ORIF. GRAIN PROCESSOR: Lethargic, confused. (Delia Zimmerman) Assessment and Plan Plan ASSESSMENT: - Anemia with drop in Hgb. S/P EGD with peg tube placement (03/11/17)---> unremarkable EGD, s/p peg placement. S/P Colonoscopy (03/15)---> inadequate prep, (03/16)--> solid stool in rectum. HH 9.8/30.1. - Constipation. S/P enemas. (+) BM. - Hep C antibodies. 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 S/P EGD with peg tube placement (03/11/17)----> unremarkable EGD, S/P peg tube. Site without redness or swelling or drainage. Puree diet. Manager Latin following. Recommends Jevity 1.5 at 60cc/hr. - THADDEUS with electrolyte abnormalities. Renal following, feels this is most likely ATN. - Acute encephalopathy, likely multifactorial- dt's, sepsis. confused, but does follow commands. - Sepsis, bacteremia, septic joint. Hand surgery/ID following, Abx per ID ID following, Abx per ID - HTN per attending. PLAN: - Jevity 1.5 to GR 60cc/hr - Monitor HH - Transfuse as necessary - Plan for colonoscopy with 2 day prep as outpatient - GI Will sign off, please reconsult as needed - Pt seen and examined by Dr. Melo and myself and this note is written on his behalf (Delia Zimmerman) Physician Comments As above, stable HH, unable to complete bowel prep twice, will schedule it as out patient. Please notify us if needed during hospitalization. (Amaury Melo MD) Delia Zimmerman Mar 17, 2017 16:39 Amaury Melo MD Mar 17, 2017 22:17
--- NOTE | 2017-03-17 16:40 | HHI.PR ---
Subjective Remarks follow up multiple debridements right hand/wrist and forearm no fever responds to oral commands Objective Vital Signs Date Time Temp Pulse Resp B/P (MAP) Pulse Ox O2 Delivery O2 Flow Rate FiO2 03/17/17 14:33 94 03/17/17 12:00 98.1 80 20 128/68 (88) 94 03/17/17 08:00 98.6 81 20 147/69 (95) 93 03/17/17 08:00 Nasal Cannula 2.00 03/17/17 04:28 97.9 73 16 137/70 (92) 93 03/16/17 23:00 97.8 69 16 112/55 (74) 92 03/16/17 20:33 97.6 77 16 146/77 (100) 95 03/16/17 20:19 Room Air I/O 03/16/17 03/16/17 03/16/17 03/17/17 03/17/17 03/17/17 07:00 15:00 23:00 07:00 15:00 23:00 Intake Total 1212 ml 100 ml 1845 ml 0 ml 1000 ml Output Total 1650 ml 350 ml 1400 ml 500 ml Balance -438 ml -250 ml 445 ml -500 ml 1000 ml Intake Oral 0 ml 0 ml IV Total 1212 ml 1845 ml 1000 ml Other 100 ml Output Urine Total 1650 ml 350 ml 1400 ml 500 ml Bladder Scan Volume Amount 587 ml 522 ml 587 ml 499 ml # Bowel Movements 3 1 0 right upper extremity: packing in place mild drainage noted decreased swelling and erythema 2 areas of exposed tendon noted Result Diagram: 03/15/17 0704 03/15/17 0704 Assessment and Plan Assessment and Plan 61 year old male s/p incision and drainage, arthrotomy bilateral index finger MP joints, extensor tenosynovectomy POD 1 plan dressing changed continue antibiotics based on ID recommendations will plan on exploration, wash and possible closure right hand/wrist and forearm on 03/18/17 keep the patient npo from midnight strict hand elevation over pillows finger range of motion exercises passively. Roque Bullock MD Mar 17, 2017 16:40
--- NOTE | 2017-03-17 16:52 | HHI.NPPN ---
Subjective History of Present Illness 61 year old male with past medical history of hypertension, history of being homeless. He was admitted on February 25 with altered mental status and leukocytosis. I was called to see the patient because of elevated BUN and creatinine. Additional Remarks Patient has pain in hand, now with PEG feeding, now Briseno's catheter inserted. Objective Data Data 03/17/17 03/18/17 19:00 07:00 Intake Total 1000 ml Balance 1000 ml IV Total 1000 ml Bladder Scan Volume Amount 522 ml 499 ml Vital Signs Date Time Temp Pulse Resp B/P (MAP) Pulse Ox O2 Delivery O2 Flow Rate FiO2 03/17/17 14:33 94 03/17/17 12:00 98.1 80 20 128/68 (88) 94 03/17/17 08:00 98.6 81 20 147/69 (95) 93 03/17/17 08:00 Nasal Cannula 2.00 03/17/17 04:28 97.9 73 16 137/70 (92) 93 03/16/17 23:00 97.8 69 16 112/55 (74) 92 03/16/17 20:33 97.6 77 16 146/77 (100) 95 03/16/17 20:19 Room Air -: 03/15/17 0704 03/15/17 0704 Physical Exam General Appearance: No Acute Distress, Anxious Eyes Eye Exam: Pupils Equal Throat Throat Exam: Oral Mucosa [place] & Moist Neck Neck Exam: Neck Supple Pulmonary Resp Exam: Breath Sounds Equal, No Distress, Rhonchi, Decreased Bases Cardiology CV Exam: Regular, Normal Sinus Rhythm Gastrointestinal/Abdomen GI Exam: Soft, Non-Tender, Bowel Sounds Present Extremeties Extremities Exam: Trace Edema Neurologic Neuro Exam: Alert, Awake Assessment/Plan Assessment Summary: THADDEUS/Acute Renal Failure Problem List: (1) Encephalopathy ICD Codes: G93.40 - Encephalopathy, unspecified Status: Acute (2) Essential hypertension ICD Codes: I10 - Essential (primary) hypertension Status: Acute (3) Hepatitis C, chronic ICD Codes: B18.2 - Chronic viral hepatitis C Status: Acute (4) Abscess of right hand including fingers ICD Codes: L02.511 - Cutaneous abscess of right hand Status: Acute (5) Abscess of left hand including fingers ICD Codes: L02.512 - Cutaneous abscess of left hand Status: Acute (6) Alcoholism ICD Codes: F10.20 - Alcohol dependence, uncomplicated Status: Acute (7) CHF (congestive heart failure) ICD Codes: I50.9 - Heart failure, unspecified Status: Acute (8) Sepsis ICD Codes: A41.9 - Sepsis, unspecified organism Status: Acute (9) ARF (acute renal failure) ICD Codes: N17.9 - Acute kidney failure, unspecified Status: Acute Plan Patient has been non oliguric. Urine Eosinophils negative. Urine Na. is normal. Most likely had ATN. No new BMP. Last Creatinine was 1.4. Briseno's catheter was inserted as has high Bladder residual. Check BMP in AM. Problem Qualifiers (1) Sepsis: Diane Barker MD Mar 17, 2017 16:52
[2017-03-17 17:00] VITALS: BP 144/77; PULSE 77; RESP 20; TEMP 98; O2SAT 97
--- NOTE | 2017-03-17 17:54 | PD.CARD.PN ---
Subjective Subjective Remarks No CP or SOB, c/o lower back pain Objective Medications Current Medications Medications (Trade) Dose Ordered Sig/Kayla Route Start Time Stop Time Status Last Admin (NS Flush) 2 ml UNSCH PRN IV FLUSH 02/24/17 13:45 02/24/17 13:38 (Zofran Inj) 4 mg Q8HR PRN IV PUSH 02/24/17 18:00 (Vitamin B1) 100 mg DAILY PO 02/25/17 09:00 03/17/17 09:48 (Romazicon Inj) 0.2 mg Q1M PRN IV PUSH 02/25/17 09:15 (Ativan) 1 mg Q4H PRN PO 02/25/17 09:15 03/04/17 09:13 (Ativan Inj) 1 mg Q4H PRN IV PUSH 02/25/17 09:15 03/05/17 02:41 (Theragran) 1 tab DAILY PO 02/26/17 09:00 03/17/17 09:48 (Ofirmev Inj) 650 mg Q6H PRN IV 02/25/17 21:00 03/06/17 20:12 (Trandate Inj) 10 mg Q6H PRN IV PUSH 02/25/17 23:15 (Protonix Inj) 40 mg Q24H IV PUSH 02/26/17 00:00 03/17/17 00:00 Miscellaneous Information Patient in critical care unit? Ass... Q361D .XX 02/26/17 07:15 (Bactroban Nasal 2% Oint) 1 applic BID NASAL 02/26/17 09:00 03/17/17 09:48 (Catapres) 0.3 mg Q8HR PO 02/26/17 22:11 03/17/17 14:47 (Roxicodone) 5 mg Q4H PRN PO 02/28/17 07:45 03/17/17 04:11 (Dilaudid Pf Inj) 0.5 mg Q3H PRN IV PUSH 02/28/17 07:45 03/17/17 13:18 (Rifampin) 300 mg Q12HR PO 03/02/17 21:00 03/17/17 09:48 (Coreg) 6.25 mg Q12HR PO 03/03/17 21:00 03/17/17 09:48 Daptomycin 550 mg/ Sodium Chloride 100 ml @ 200 mls/hr Q24H IV 03/06/17 12:00 03/17/17 13:09 (Dulcolax Supp) 10 mg DAILY PRN RECTAL 03/06/17 21:00 (Lactulose Liq) 30 ml DAILY PRN NG 03/06/17 21:00 03/07/17 18:45 (Colace Liq) 100 mg Q12HR PO 03/06/17 21:15 Future Hold 03/09/17 09:30 (Prinivil) 2.5 mg DAILY PO 03/09/17 09:00 03/17/17 09:48 (Pill Splitter) 1 ea UNSCH PRN OTHER 03/08/17 21:15 (Lovenox Inj) 40 mg Q24H SQ 03/10/17 13:00 Future Hold Potassium Chloride/Sodium Chloride 1,000 ml @ 75 mls/hr [id number] IV 03/13/17 11:30 03/17/17 09:50 Vital Signs / I&O Vital Signs Date Time Temp Pulse Resp B/P (MAP) Pulse Ox O2 Delivery O2 Flow Rate FiO2 03/17/17 17:00 98.0 77 20 144/77 (99) 97 03/17/17 14:33 94 03/17/17 12:00 98.1 80 20 128/68 (88) 94 03/17/17 08:00 98.6 81 20 147/69 (95) 93 03/17/17 08:00 Nasal Cannula 2.00 03/17/17 04:28 97.9 73 16 137/70 (92) 93 03/16/17 23:00 97.8 69 16 112/55 (74) 92 03/16/17 20:33 97.6 77 16 146/77 (100) 95 03/16/17 20:19 Room Air I/O 03/16/17 03/16/17 03/16/17 03/17/17 03/17/17 03/17/17 07:00 15:00 23:00 07:00 15:00 23:00 Intake Total 1212 ml 100 ml 1845 ml 0 ml 1000 ml Output Total 1650 ml 350 ml 1400 ml 500 ml Balance -438 ml -250 ml 445 ml -500 ml 1000 ml Intake Oral 0 ml 0 ml IV Total 1212 ml 1845 ml 1000 ml Other 100 ml Output Urine Total 1650 ml 350 ml 1400 ml 500 ml Bladder Scan Volume Amount 587 ml 522 ml 587 ml 499 ml # Bowel Movements 3 1 0 Physical Exam GENERAL: In NAD SKIN: Warm and dry. HEAD: Normocephalic. EYES: No scleral icterus. No injection or drainage. NECK: Supple, trachea midline. No JVD or lymphadenopathy. CARDIOVASCULAR: Regular rate and rhythm without murmurs, gallops, or rubs. RESPIRATORY: Breath sounds equal bilaterally. No accessory muscle use. GASTROINTESTINAL: Abdomen soft, non-tender, nondistended. MUSCULOSKELETAL: No cyanosis, or edema. Laboratory Laboratory Tests Test 02/24/17 13:40 02/24/17 13:45 02/24/17 15:41 02/25/17 02:04 Prothrombin Time 12.4 SEC Prothromb Time International Ratio 1.1 RATIO Activated Partial Thromboplast Time 26.8 SEC Ammonia 17 MCMOL/L Creatine Kinase MB 7.1 NG/ML Troponin I 0.02 NG/ML Ethyl Alcohol Level LESS THAN 3 MG/DL Lymphocytes % 1 % Urine Hyaline Casts 5 /lpf Urine Opiates Screen NEG Urine Barbiturates Screen NEG Urine Amphetamines Screen NEG Urine Benzodiazepines Screen NEG Urine Cocaine Screen NEG Urine Cannabinoids Screen NEG Vitamin B12 Level GREATER THAN 2000 PG/ML Folate 11.5 NG/ML Test 02/25/17 07:02 02/25/17 17:45 02/25/17 22:43 02/26/17 06:59 Monocytes % 1 % Red Cell Morphology Comment NORMAL Nasal Screen MRSA (PCR) MRSA DETECTED Blood Gas Puncture Site RT RADIAL Blood Gas Patient Temperature 98.6 Blood Gas HCO3 24 mmol/L Blood Gas Base Excess 0.3 mmol/L Blood Gas Oxygen Saturation 96 % Arterial Blood pH 7.42 Arterial Blood Partial Pressure CO2 38 mmHg Arterial Blood Partial Pressure O2 115 mmHg Arterial Blood Oxygen Content 15.1 Vol % Arterial Blood Carboxyhemoglobin 0.7 % Arterial Blood Methemoglobin 1.0 % Blood Gas Hemoglobin 11.0 G/DL Oxygen Delivery Device NASAL CANNULA Blood Gas Liter Flow 4 L/M Differential Total Cells Counted 100 Neutrophils % (Manual) 89 % Band Neutrophils % 8 % Neutrophils # (Manual) 32.2 TH/MM3 Metamyelocytes 3 % Toxic Granulation 1+ Toxic Vacuolation Dohle Bodies PRESENT Platelet Estimate NORMAL Platelet Morphology Comment NORMAL Ovalocytes 1+ Acanthocytes OCC Hepatitis A IgM Antibody NEGATIVE Hepatitis B Surface Antigen NEGATIVE Hepatitis B Core IgM Antibody NEGATIVE Hepatitis C Antibody REACTIVE HIV (1&2) Antibody NEGATIVE Test 02/27/17 22:40 03/02/17 13:30 03/02/17 23:20 03/04/17 06:41 Vancomycin Level Trough 17.3 MCG/ML Urine Color YELLOW Urine Turbidity CLOUDY Urine pH 5.0 Urine Specific [place] 1.018 Urine Protein 30 mg/dL Urine Glucose (UA) NEG mg/dL Urine Ketones NEG mg/dL Urine Occult Blood SMALL Urine Nitrite NEG Urine Bilirubin NEG Urine Urobilinogen LESS THAN 2.0 MG/DL Urine Leukocyte Esterase MOD Urine RBC 6 /hpf Urine WBC 16 /hpf Urine Squamous Epithelial Cells 1 /hpf Urine Transitional Epithelial Cells <1 /hpf Urine Amorphous Sediment OCC Urine Bacteria MOD /hpf Urine Granular Casts 4 /lpf Urine Mucus FEW /lpf Microscopic Urinalysis Comment CATH-CULTURE IND Lactic Acid Level 1.7 mmol/L B-Type Natriuretic Peptide 671 PG/ML Test 03/05/17 17:36 03/07/17 08:30 03/07/17 17:15 03/08/17 04:32 Urine Eosinophils NONE SEEN /HPF Urine Osmolality 440 MOSM/KG Urine Random Sodium 33 MEQ/L Iron Level 15 MCG/DL Total Iron Binding Capacity 90 MCG/DL Percent Iron Saturation 16.7 % Ferritin 368 NG/ML Reticulocyte Count 0.8 % Absolute Reticulocyte Count 18.9 MIL/L Blood Urea Nitrogen 59 MG/DL Creatinine 2.22 MG/DL Random Glucose 95 MG/DL Albumin 1.1 GM/DL Calcium Level 9.7 MG/DL Phosphorus Level 4.7 MG/DL Magnesium Level 2.3 MG/DL Sodium Level 150 MEQ/L Potassium Level 4.0 MEQ/L Chloride Level 114 MEQ/L Carbon Dioxide Level 30.0 MEQ/L Test 03/09/17 06:15 03/09/17 06:30 03/15/17 07:04 03/16/17 10:37 Total Creatine Kinase 167 U/L Hepatitis C RNA Genotype 1a Hepatitis C RNA (PCR) IUs/ml [id number] IU/mL Hepatitis C RNA (PCR) log IUs/ml 6.17 White Blood Count 11.8 TH/MM3 Red Blood Count 3.52 MIL/MM3 Hemoglobin 9.8 GM/DL Hematocrit 30.1 % Mean Corpuscular Volume 85.6 FL Mean Corpuscular Hemoglobin 27.8 PG Mean Corpuscular Hemoglobin Concent 32.5 % Red Cell Distribution Width 17.5 % Platelet Count 406 TH/MM3 Mean Platelet Volume 9.6 FL Neutrophils (%) (Auto) 75.9 % Lymphocytes (%) (Auto) 13.3 % Monocytes (%) (Auto) 9.4 % Eosinophils (%) (Auto) 1.1 % Basophils (%) (Auto) 0.3 % Neutrophils # (Auto) 9.0 TH/MM3 Lymphocytes # (Auto) 1.6 TH/MM3 Monocytes # (Auto) 1.1 TH/MM3 Eosinophils # (Auto) 0.1 TH/MM3 Basophils # (Auto) 0.0 TH/MM3 CBC Comment DIFF FINAL Differential Comment Blood Urea Nitrogen 33 MG/DL Creatinine 1.45 MG/DL Random Glucose 93 MG/DL Calcium Level 9.1 MG/DL Sodium Level 144 MEQ/L Potassium Level 3.4 MEQ/L Chloride Level 108 MEQ/L Carbon Dioxide Level 28.2 MEQ/L Anion Gap 8 MEQ/L Estimat Glomerular Filtration Rate 49 ML/MIN Total Bilirubin 0.3 MG/DL Direct Bilirubin 0.1 MG/DL Indirect Bilirubin 0.2 MG/DL Aspartate Amino Transf (AST/SGOT) 31 U/L Alanine Aminotransferase (ALT/SGPT) 18 U/L Alkaline Phosphatase 82 U/L C-Reactive Protein 10.50 MG/DL Total Protein 6.2 GM/DL Albumin 1.1 GM/DL Imaging Last Impressions Abdomen X-Ray 03/08/17 0000 Signed Impressions: Service Date/Time: Wednesday, March 08, 2017 10:30 - CONCLUSION: Nonspecific, negative for obstruction or ileus. Isaac Stevenson MD FACR Chest X-Ray 03/02/17 0000 Signed Impressions: Service Date/Time: Thursday, March 02, 2017 13:26 - CONCLUSION: Interval develop of a small left-sided pleural effusion. Pulmonary venous congestion. Edenilson Oviedo MD Lower Extremity CT 03/01/17 0000 Signed Impressions: Service Date/Time: Wednesday, March 01, 2017 11:12 - CONCLUSION: 1. No evidence of organized fluid collections to suggest an abscess. 2. Extensive soft tissue swelling surrounding the ankle and extending to the forefoot especially along the lateral aspect. 3. No erosive or destructive bone changes. 4. Bone defects compatible with previous excision device. Blake Rider MD Ankle X-Ray 02/26/17 0000 Signed Impressions: Service Date/Time: Sunday, February 26, 2017 17:15 - CONCLUSION: I see no retained surgical instruments. Isaac Stevenson MD FACR Upper Extremity Ultrasound 02/25/17 1734 Signed Impressions: Service Date/Time: February 17:54 - CONCLUSION: There is a thin fluid collection within the focal area of soft tissue swelling 2nd digit. Oscar Cassidy MD Hand X-Ray 02/25/17 0000 Signed Impressions: Service Date/Time: February 18:59 - CONCLUSION: No gross bony abnormality. Oscar Cassidy MD Lower Extremity Ultrasound 02/24/17 0000 Signed Impressions: Service Date/Time: Friday, February 24, 2017 13:41 - CONCLUSION: Negative for deep venous thrombosis. Isaac Stevenson MD FACR Head CT 02/24/17 0000 Signed Impressions: Service Date/Time: Friday, February 24, 2017 16:08 - CONCLUSION: 1. No acute intracranial abnormality. 2. Probable large mucocele in the sphenoid sinus. Ty Hankins MD Abdomen/Pelvis CT 02/24/17 0000 Signed Impressions: Service Date/Time: Friday, February 24, 2017 16:16 - CONCLUSION: 1. Marked gaseous distension of large and small bowel most suggestive of ileus. 2. There is no free air. 3. 2.2 cm left adrenal mass. 4. Distended bladder. Isaac Stevenson MD FACR Assessment and Plan Problem List: (1) CHF (congestive heart failure) ICD Codes: I50.9 - Heart failure, unspecified Status: Acute (2) Cardiomyopathy ICD Codes: I42.9 - Cardiomyopathy, unspecified Status: Acute (3) ARF (acute renal failure) ICD Codes: N17.9 - Acute kidney failure, unspecified Status: Acute (4) Alcoholism ICD Codes: F10.20 - Alcohol dependence, uncomplicated Status: Acute (5) Tobacco use disorder ICD Codes: Z72.0 - Tobacco use Status: Acute (6) Sepsis ICD Codes: A41.9 - Sepsis, unspecified organism Status: Acute Assessment and Plan No new cardiac issues. Continue current management for CHF including carvedilol and lisinopril. Titrate lisinopril as tolerated; continue to monitor renal fx. Increase activity, PT. Problem Qualifiers (1) Sepsis: Raquel Escobar MD Mar 17, 2017 17:54
[2017-03-17 20:37] VITALS: BP 136/70; PULSE 78; RESP 18; TEMP 99.7; O2SAT 95
[2017-03-17] MEDS: PANTOPRAZOLE SODIUM 40 MG VIAL IV PUSH SCH ×2 (23:48)
[2017-03-18] VITALS: BP 113/59; PULSE 63; RESP 18; TEMP 98.9; O2SAT 95
[2017-03-18 04:39] VITALS: BP 130/66; PULSE 76; RESP 18; TEMP 99.8; O2SAT 95
[2017-03-18] MEDS: cloNIDine HCL 0.3 MG TAB PO SCH ×3 (06:38→20:48)
[2017-03-18 08:00] VITALS: BP 121/65; PULSE 77; RESP 16; TEMP 99.1; O2SAT 92
[2017-03-18 08:29] LABS: BASOPHIL % 0.3 % (0.0-2.0); EOSINOPHIL # 0.1 TH/MM3 (0-0.4); EOSINOPHIL % 1.5 % (0.0-4.0); HEMO FLAGS DIFF FINAL; LYMPH % 15.7 % (9.0-44.0); LYMPHOCYTE # 1.5 TH/MM3 (1.0-4.8); MEAN CELL VOLUME 86.8 FL (80.0-100.0); MEAN CORPUSCULAR HEMOGLOBIN 28.8 PG (27.0-34.0); MEAN CORPUSCULAR HGB CONC 33.2 % (32.0-36.0); MONO % 8.5 % (0.0-8.0); PLATELET COUNT 342 TH/MM3 (150-450); RED BLOOD COUNT 2.77 MIL/MM3 (4.50-5.90); RED CELL DISTRIBUTION WIDTH 17.4 % (11.6-17.2); WHITE BLOOD COUNT 9.5 TH/MM3 (4.0-11.0)
[2017-03-18 08:56] LABS: ALKALINE PHOSPHATASE 94 U/L (45-117); ALT (GPT) 24 U/L (12-78); ANION GAP 7 MEQ/L (5-15); AST (GOT) 25 U/L (15-37); BICARBONATE 26.7 MEQ/L (21.0-32.0); BLOOD UREA NITROGEN 29 MG/DL (7-18); CHLORIDE 110 MEQ/L (98-107); GLOMERULAR FILTRATION RATE 50 ML/MIN (>89); POTASSIUM 3.6 MEQ/L (3.5-5.1); SODIUM (NA) 144 MEQ/L (136-145); TOTAL BILIRUBIN ADULT 0.2 MG/DL (0.2-1.0)
[2017-03-18] MEDS: LISINOPRIL 5 MG TAB PO SCH (09:52)
[2017-03-18] MEDS: MULTIVITAMIN TAB PO SCH (09:52)
[2017-03-18] MEDS: CARVEDILOL 6.25 MG TAB PO SCH ×2 (09:52→20:49)
[2017-03-18] MEDS: RIFAMPIN 150 MG CAP PO SCH ×2 (09:52→20:48)
[2017-03-18] MEDS: THIAMINE HCL 100 MG TAB PO SCH (09:52)
[2017-03-18] MEDS: MUPIROCIN 2% OINT 1 APPLIC/GM SYR NASAL SCH ×2 (09:52→20:48)
[2017-03-18] MEDS: HYDROmorphone HCL PF 1 MG/ML VIAL IV PUSH PRN (10:06)
--- NOTE | 2017-03-18 10:40 | PD.CARD.PN ---
Subjective Subjective Remarks No CP or SOB, feels fine Objective Medications Current Medications Medications (Trade) Dose Ordered Sig/Kayla Route Start Time Stop Time Status Last Admin (NS Flush) 2 ml UNSCH PRN IV FLUSH 02/24/17 13:45 02/24/17 13:38 (Zofran Inj) 4 mg Q8HR PRN IV PUSH 02/24/17 18:00 (Vitamin B1) 100 mg DAILY PO 02/25/17 09:00 03/18/17 09:52 (Romazicon Inj) 0.2 mg Q1M PRN IV PUSH 02/25/17 09:15 (Ativan) 1 mg Q4H PRN PO 02/25/17 09:15 03/04/17 09:13 (Ativan Inj) 1 mg Q4H PRN IV PUSH 02/25/17 09:15 03/05/17 02:41 (Theragran) 1 tab DAILY PO 02/26/17 09:00 03/18/17 09:52 (Ofirmev Inj) 650 mg Q6H PRN IV 02/25/17 21:00 03/06/17 20:12 (Trandate Inj) 10 mg Q6H PRN IV PUSH 02/25/17 23:15 (Protonix Inj) 40 mg Q24H IV PUSH 02/26/17 00:00 03/17/17 23:48 Miscellaneous Information Patient in critical care unit? Ass... Q361D .XX 02/26/17 07:15 (Bactroban Nasal 2% Oint) 1 applic BID NASAL 02/26/17 09:00 03/18/17 09:52 (Catapres) 0.3 mg Q8HR PO 02/26/17 22:11 03/18/17 06:38 (Roxicodone) 5 mg Q4H PRN PO 02/28/17 07:45 03/17/17 04:11 (Dilaudid Pf Inj) 0.5 mg Q3H PRN IV PUSH 02/28/17 07:45 03/18/17 10:06 (Rifampin) 300 mg Q12HR PO 03/02/17 21:00 03/18/17 09:52 (Coreg) 6.25 mg Q12HR PO 03/03/17 21:00 03/18/17 09:52 Daptomycin 550 mg/ Sodium Chloride 100 ml @ 200 mls/hr Q24H IV 03/06/17 12:00 03/17/17 13:09 (Dulcolax Supp) 10 mg DAILY PRN RECTAL 03/06/17 21:00 (Lactulose Liq) 30 ml DAILY PRN NG 03/06/17 21:00 03/07/17 18:45 (Colace Liq) 100 mg Q12HR PO 03/06/17 21:15 Future Hold 03/09/17 09:30 (Prinivil) 2.5 mg DAILY PO 03/09/17 09:00 03/18/17 09:52 (Pill Splitter) 1 ea UNSCH PRN OTHER 03/08/17 21:15 (Lovenox Inj) 40 mg Q24H SQ 03/10/17 13:00 Future Hold Potassium Chloride/Sodium Chloride 1,000 ml @ 75 mls/hr [id number] IV 03/13/17 11:30 03/17/17 23:48 Vital Signs / I&O Vital Signs Date Time Temp Pulse Resp B/P (MAP) Pulse Ox O2 Delivery O2 Flow Rate FiO2 03/18/17 08:00 99.1 77 16 121/65 (83) 92 03/18/17 04:39 99.8 76 18 130/66 (87) 95 03/18/17 00:00 98.9 63 18 113/59 (77) 95 03/17/17 20:37 99.7 78 18 136/70 (92) 95 03/17/17 20:00 Room Air 03/17/17 17:00 98.0 77 20 144/77 (99) 97 03/17/17 14:33 94 03/17/17 12:00 98.1 80 20 128/68 (88) 94 I/O 03/17/17 03/17/17 03/17/17 03/18/17 03/18/17 03/18/17 06:59 14:59 22:59 06:59 14:59 22:59 Intake Total 0 ml 1000 ml 820 ml 2672 ml Output Total 500 ml 250 ml 600 ml Balance -500 ml 1000 ml 570 ml 2072 ml Intake Oral 0 ml 720 ml 120 ml IV Total 1000 ml 100 ml 1818 ml Tube Feeding 734 ml Output Urine Total 500 ml 250 ml 600 ml Bladder Scan Volume Amount 587 ml 522 ml 587 ml 499 ml # Bowel Movements 0 1 1 Physical Exam GENERAL: In NAD SKIN: Warm and dry. HEAD: Normocephalic. EYES: No scleral icterus. No injection or drainage. NECK: Supple, trachea midline. No JVD or lymphadenopathy. CARDIOVASCULAR: Regular rate and rhythm without murmurs, gallops, or rubs. RESPIRATORY: Breath sounds equal bilaterally. No accessory muscle use. GASTROINTESTINAL: Abdomen soft, non-tender, nondistended. MUSCULOSKELETAL: No cyanosis, or edema. Laboratory Laboratory Tests Test 03/18/17 07:34 White Blood Count 9.5 TH/MM3 Red Blood Count 2.77 MIL/MM3 Hemoglobin 8.0 GM/DL Hematocrit 24.0 % Mean Corpuscular Volume 86.8 FL Mean Corpuscular Hemoglobin 28.8 PG Mean Corpuscular Hemoglobin Concent 33.2 % Red Cell Distribution Width 17.4 % Platelet Count 342 TH/MM3 Mean Platelet Volume 9.9 FL Neutrophils (%) (Auto) 74.0 % Lymphocytes (%) (Auto) 15.7 % Monocytes (%) (Auto) 8.5 % Eosinophils (%) (Auto) 1.5 % Basophils (%) (Auto) 0.3 % Neutrophils # (Auto) 7.0 TH/MM3 Lymphocytes # (Auto) 1.5 TH/MM3 Monocytes # (Auto) 0.8 TH/MM3 Eosinophils # (Auto) 0.1 TH/MM3 Basophils # (Auto) 0.0 TH/MM3 CBC Comment DIFF FINAL Differential Comment Blood Urea Nitrogen 29 MG/DL Creatinine 1.44 MG/DL Random Glucose 112 MG/DL Total Protein 5.5 GM/DL Albumin 1.1 GM/DL Calcium Level 7.9 MG/DL Alkaline Phosphatase 94 U/L Aspartate Amino Transf (AST/SGOT) 25 U/L Alanine Aminotransferase (ALT/SGPT) 24 U/L Total Bilirubin 0.2 MG/DL Sodium Level 144 MEQ/L Potassium Level 3.6 MEQ/L Chloride Level 110 MEQ/L Carbon Dioxide Level 26.7 MEQ/L Anion Gap 7 MEQ/L Estimat Glomerular Filtration Rate 50 ML/MIN Imaging Last Impressions Abdomen X-Ray 03/08/17 0000 Signed Impressions: Service Date/Time: Wednesday, March 08, 2017 10:30 - CONCLUSION: Nonspecific, negative for obstruction or ileus. Isaac Stevenson MD FACR Chest X-Ray 03/02/17 0000 Signed Impressions: Service Date/Time: Thursday, March 02, 2017 13:26 - CONCLUSION: Interval develop of a small left-sided pleural effusion. Pulmonary venous congestion. Edenilson Oviedo MD Lower Extremity CT 03/01/17 0000 Signed Impressions: Service Date/Time: Wednesday, March 01, 2017 11:12 - CONCLUSION: 1. No evidence of organized fluid collections to suggest an abscess. 2. Extensive soft tissue swelling surrounding the ankle and extending to the forefoot especially along the lateral aspect. 3. No erosive or destructive bone changes. 4. Bone defects compatible with previous excision device. Blake Rider MD Ankle X-Ray 02/26/17 0000 Signed Impressions: Service Date/Time: Sunday, February 26, 2017 17:15 - CONCLUSION: I see no retained surgical instruments. Isaac Stevenson MD FACR Upper Extremity Ultrasound 02/25/17 1734 Signed Impressions: Service Date/Time: February 17:54 - CONCLUSION: There is a thin fluid collection within the focal area of soft tissue swelling 2nd digit. Oscar Cassidy MD Hand X-Ray 02/25/17 Signed Impressions: Service Date/Time: February 18:59 - CONCLUSION: No gross bony abnormality. Oscar Cassidy MD Lower Extremity Ultrasound 02/24/17 Signed Impressions: Service Date/Time: Friday, February 24, 2017 13:41 - CONCLUSION: Negative for deep venous thrombosis. Isaac Stevenson MD FACR Head CT 02/24/17 Signed Impressions: Service Date/Time: Friday, February 24, 2017 16:08 - CONCLUSION: 1. No acute intracranial abnormality. 2. Probable large mucocele in the sphenoid sinus. Ty Hankins MD Abdomen/Pelvis CT 02/24/17 Signed Impressions: Service Date/Time: Friday, February 24, 2017 16:16 - CONCLUSION: 1. Marked gaseous distension of large and small bowel most suggestive of ileus. 2. There is no free air. 3. 2.2 cm left adrenal mass. 4. Distended bladder. Isaac Stevenson MD FACR Assessment and Plan Problem List: (1) CHF (congestive heart failure) ICD Codes: I50.9 - Heart failure, unspecified Status: Acute (2) Cardiomyopathy ICD Codes: I42.9 - Cardiomyopathy, unspecified Status: Acute (3) ARF (acute renal failure) ICD Codes: N17.9 - Acute kidney failure, unspecified Status: Acute (4) Alcoholism ICD Codes: F10.20 - Alcohol dependence, uncomplicated Status: Acute (5) Tobacco use disorder ICD Codes: Z72.0 - Tobacco use Status: Acute (6) Sepsis ICD Codes: A41.9 - Sepsis, unspecified organism Status: Acute Assessment and Plan Remains stable from cardiac standpoint. Continue current management for CHF including carvedilol and lisinopril. Titrate lisinopril as tolerated; continue to monitor renal fx. Increase activity, PT. Recheck echo later to reevaluate LV fx on medical tx. Problem Qualifiers (1) Sepsis: Raquel Escobar MD Mar 18, 2017 10:40
[2017-03-18 12:00] VITALS: BP 133/76; PULSE 77; RESP 18; TEMP 98.4; O2SAT 94
[2017-03-18] MEDS ORDERED: PROPOFOL 200 MG/20 ML AMP IV ONE (12:00)
[2017-03-18] MEDS ORDERED: PHENYLEPH/NS 1000 MCG/10 ML SYR IV ONE (12:00)
[2017-03-18] MEDS ORDERED: ONDANSETRON HCL 4 MG/2 ML VIAL IV PUSH ONE (12:00)
[2017-03-18] MEDS ORDERED: NEOSTIGMINE 3 MG/3 ML SYR IV ONE (12:00)
--- NOTE | 2017-03-18 12:00 | HHI.IDPN ---
Subjective Subjective Remarks is a 61 y/o CM with PMHx of right foot hardware, hypertension, alcoholism, Hepatitis C who was admitted with sepsis, acute metabolic encephalopathy ? DTs. Removal of hardware from r. ankle 02/27. Noted to have a pocket of pus adjacent to and in contact with the hardware. Could not remove all of the wires per podiatry. Embedded in deep tissue. Culture form both index fingers has MRSA. R ankle culture - and distal fibula 02/26, 02/28 MRSA. Blood culture 02/24, 02/25, 02/27 - MRSA. 2D ECHO - No vegetations noted. Overnight events reviewed. s/p debridement of the hands 02/26/17. No fever No rash No diarrhea Antibiotics Dapto IV Rifampin oral. Lines Line sites with no e.o infection Past Medical History hypertension alcoholism Hepatitis C right foot surgery with hardware in place. Allergies: Coded Allergies: ciprofloxacin (Unverified Adverse Reaction, Intermediate, Dizziness, ) *MDRO Multi-Drug Resistant Organism (Verified Adverse Reaction, Unknown, ) MRSA (blood)+(urine) 02/24/17, (blood) 02/25/17, 02/27/17 (finger,ankle,leg) 02/26/17, 02/28/17 MRSA PCR screen positive 02/25/17 Objective . Vital Signs Date Time Temp Pulse Resp B/P (MAP) Pulse Ox O2 Delivery O2 Flow Rate FiO2 03/18/17 08:00 99.1 77 16 121/65 (83) 92 03/18/17 04:39 99.8 76 18 130/66 (87) 95 03/18/17 00:00 98.9 63 18 113/59 (77) 95 03/17/17 20:37 99.7 78 18 136/70 (92) 95 03/17/17 20:00 Room Air 03/17/17 17:00 98.0 77 20 144/77 (99) 97 03/17/17 14:33 94 03/17/17 12:00 98.1 80 20 128/68 (88) 94 . Laboratory Tests Test 03/18/17 07:34 White Blood Count 9.5 TH/MM3 Red Blood Count 2.77 MIL/MM3 Hemoglobin 8.0 GM/DL Hematocrit 24.0 % Mean Corpuscular Volume 86.8 FL Mean Corpuscular Hemoglobin 28.8 PG Mean Corpuscular Hemoglobin Concent 33.2 % Red Cell Distribution Width 17.4 % Platelet Count 342 TH/MM3 Mean Platelet Volume 9.9 FL Neutrophils (%) (Auto) 74.0 % Lymphocytes (%) (Auto) 15.7 % Monocytes (%) (Auto) 8.5 % Eosinophils (%) (Auto) 1.5 % Basophils (%) (Auto) 0.3 % Neutrophils # (Auto) 7.0 TH/MM3 Lymphocytes # (Auto) 1.5 TH/MM3 Monocytes # (Auto) 0.8 TH/MM3 Eosinophils # (Auto) 0.1 TH/MM3 Basophils # (Auto) 0.0 TH/MM3 CBC Comment DIFF FINAL Differential Comment Laboratory Tests Test 03/18/17 07:34 Blood Urea Nitrogen 29 MG/DL Creatinine 1.44 MG/DL Random Glucose 112 MG/DL Total Protein 5.5 GM/DL Albumin 1.1 GM/DL Calcium Level 7.9 MG/DL Alkaline Phosphatase 94 U/L Aspartate Amino Transf (AST/SGOT) 25 U/L Alanine Aminotransferase (ALT/SGPT) 24 U/L Total Bilirubin 0.2 MG/DL Sodium Level 144 MEQ/L Potassium Level 3.6 MEQ/L Chloride Level 110 MEQ/L Carbon Dioxide Level 26.7 MEQ/L Anion Gap 7 MEQ/L Estimat Glomerular Filtration Rate 50 ML/MIN Imaging Last Impressions Chest X-Ray 03/02/17 0000 Signed Impressions: Service Date/Time: Thursday, March 02, 2017 13:26 - CONCLUSION: Interval develop of a small left-sided pleural effusion. Pulmonary venous congestion. Edenilson Oviedo MD Lower Extremity CT 03/01/17 0000 Signed Impressions: Service Date/Time: Wednesday, March 01, 2017 11:12 - CONCLUSION: 1. No evidence of organized fluid collections to suggest an abscess. 2. Extensive soft tissue swelling surrounding the ankle and extending to the forefoot especially along the lateral aspect. 3. No erosive or destructive bone changes. 4. Bone defects compatible with previous excision device. Blake Rider MD Ankle X-Ray 02/26/17 0000 Signed Impressions: Service Date/Time: Sunday, February 26, 2017 17:15 - CONCLUSION: I see no retained surgical instruments. Isaac Stevenson MD FACR Abdomen X-Ray 02/26/17 0000 Signed Impressions: Service Date/Time: Monday, February 27, 2017 00:36 - CONCLUSION: Nasogastric tube within the stomach Harry Lucio MD Upper Extremity Ultrasound 02/25/17 1734 Signed Impressions: Service Date/Time: February 17:54 - CONCLUSION: There is a thin fluid collection within the focal area of soft tissue swelling 2nd digit. Oscar Cassidy MD Hand X-Ray 02/25/17 0000 Signed Impressions: Service Date/Time: February 18:59 - CONCLUSION: No gross bony abnormality. Oscar Cassidy MD Lower Extremity Ultrasound 02/24/17 0000 Signed Impressions: Service Date/Time: Friday, February 24, 2017 13:41 - CONCLUSION: Negative for deep venous thrombosis. Isaac Stevenson MD FACR Head CT 02/24/17 0000 Signed Impressions: Service Date/Time: Friday, February 24, 2017 16:08 - CONCLUSION: 1. No acute intracranial abnormality. 2. Probable large mucocele in the sphenoid sinus. Ty Hankins MD Abdomen/Pelvis CT 02/24/17 0000 Signed Impressions: Service Date/Time: Friday, February 24, 2017 16:16 - CONCLUSION: 1. Marked gaseous distension of large and small bowel most suggestive of ileus. 2. There is no free air. 3. 2.2 cm left adrenal mass. 4. Distended bladder. Isaac Stevenson MD FACR Physical Exam GENERAL: This is a well-nourished, well-developed patient, in no apparent distress. SKIN: No rashes, ecchymoses or lesions. Cool and dry. HEAD: Atraumatic. Normocephalic. No temporal or scalp tenderness. EYES: Pupils equal round and reactive. Extraocular motions intact. No scleral icterus. No injection or drainage. ENT: Nose without bleeding, purulent drainage or septal hematoma. Throat without erythema, tonsillar hypertrophy or exudate. Uvula midline. Airway patent. NECK: Trachea midline. Supple, nontender, no meningeal signs. CARDIOVASCULAR: Regular rate and rhythm without murmurs, gallops, or rubs. RESPIRATORY: Clear to auscultation. Breath sounds equal bilaterally. No wheezes , rales, or rhonchi. GASTROINTESTINAL: Abdomen soft, non-tender, nondistended. MUSCULOSKELETAL: Rt foot with swelling and warmth and fluctuance noted. Bilateral UE with warmth and swelling around knuckles noted. NEUROLOGICAL: Lethargic, awakens on command but drifts back to sleep. 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 distant showering of emboli to other joints. s/p partial removal of hardware. Deeper hardware embedded. MRSA bacteremia Right ankle hardware infection Bilateral UE hand abscess/cellulitis. Leucocytosis: increase today ? Post Acute metabolic encephalopathy: ? infection, metabolic Acute renal failure: ? vanco induced. hypertension alcoholism Hepatitis C Recs Continue Dapto IV (ASP: ? Vanco induced renal failure). d/w Clinical pharmacist to dose at 8 mg/kg IV q48hrs. Continue Rifampin oral for hardware infection right foot. Follow LFTs every week and prn. Check CBC with diff, Cr, LFTs and CRP every week. To be ordered and followed by hospitalist. Follow cultures Follow clinically. Case management note: Will need IV antibiotics plus Rifampin oral for 6 weeks followed by oral suppression. Consider SNF placement as patient has alcoholism history and may not be compliant with medications/antibiotics. Sunshine Keene MD Mar 18, 2017 12:00
--- NOTE | 2017-03-18 12:01 | HHI.PR ---
Objective Vital Signs Date Time Temp Pulse Resp B/P (MAP) Pulse Ox O2 Delivery O2 Flow Rate FiO2 03/18/17 08:00 99.1 77 16 121/65 (83) 92 03/18/17 04:39 99.8 76 18 130/66 (87) 95 03/18/17 00:00 98.9 63 18 113/59 (77) 95 03/17/17 20:37 99.7 78 18 136/70 (92) 95 03/17/17 20:00 Room Air 03/17/17 17:00 98.0 77 20 144/77 (99) 97 03/17/17 14:33 94 03/17/17 12:00 98.1 80 20 128/68 (88) 94 I/O 03/17/17 03/17/17 03/17/17 03/18/17 03/18/17 03/18/17 07:00 15:00 23:00 07:00 15:00 23:00 Intake Total 0 ml 1000 ml 820 ml 2672 ml Output Total 500 ml 250 ml 600 ml Balance -500 ml 1000 ml 570 ml 2072 ml Intake Oral 0 ml 720 ml 120 ml IV Total 1000 ml 100 ml 1818 ml Tube Feeding 734 ml Output Urine Total 500 ml 250 ml 600 ml Bladder Scan Volume Amount 587 ml 522 ml 587 ml 499 ml # Bowel Movements 0 1 1 Result Diagram: 03/18/17 0734 03/18/17 0734 A/P Assessment and Plan Assessment and Plan 61-year-old male admitted secondary to numerous infections including bilateral hands and right ankle. Previous history of right ankle. Patient also had encephalopathy secondary to infection and alcohol withdrawal time of admit. Encephalopathy has improved. Continued treatments of infections are ongoing. Sepsis Resolved MRSA Bacteremia Septic Joints (MRSA) Continue rifampin and dapto Plan for long-term IV antibiotics, rifampin for 6 weeks Likely will need [facility] facility placement Continue oxycodone and Dilaudid for pain May still need further surgical intervention Hand surgeon following Podiatry following ID following Multiple surgeries thus far: - podiatry Dr. Reyes/Dr. Gamez on 02/26, 02/28, 03/04 - hand surgeon Dr. Bullock on 02/26, 02/28, 03/04, 03/08, 03/10 Anemia Most recent hemoglobin is 8.0 Follow CBC May need repeat transfusion if the trend is downward Last transfusion was one unit on 03/12/17 Continued present diet Acute Toxic/Metabolic Encephalopathy secondary to Sepsis Acute Alcohol Withdrawal Resolved Hypernatremia Resolved Hypokalemia Replace as needed Continue to monitor Hypertension Continue clonidine and Coreg Follow blood pressures Adjust as needed for control Mild Systolic CHF EF of 40-45% with global hypokinesis found on 02/28/17 Medical management to continue Continue beta amarjit Continue lisinopril THADDEUS Monitor renal function Avoid nephrotoxins Previous event was likely secondary to ATN Nephrology following Urinary retention Monitor urine output Hepatitis C Standard precautions DVT Prophylaxis Jj Jaramillo MD Mar 18, 2017 12:01
[2017-03-18] MEDS: DAPTOMYCIN IV SCH (13:35)
[2017-03-18] MEDS: NS + KCL 20 MEQ INJ 1,000 ML IV SCH ×2 (13:35→23:56)
[2017-03-18] MEDS: SODIUM CHLORIDE 0.9% IV SCH (13:35)
--- NOTE | 2017-03-18 13:37 | PD.PN.STU ---
Subjective Remarks Mr. Aguiar is a 61yo M with PMH significant for chronic alcoholism, admitted with poss DT and sepsis. Sepsis work up initiated on admission. Blood culture positive for MRSA. Right ankle septic arthritis on admission s/p multiple I&D. bilateral hand abscess s/p drainage. Probable endocarditis. Overnight events reviewed with RN No fever, rash, diarrhea More alert and talkative UO clear and ok NPO but tube feeds still ongoing, notified RN Vital Signs Date Time Temp Pulse Resp B/P (MAP) Pulse Ox O2 Delivery O2 Flow Rate FiO2 03/18/17 12:00 98.4 77 18 133/76 (95) 94 03/18/17 08:00 99.1 77 16 121/65 (83) 92 03/18/17 04:39 99.8 76 18 130/66 (87) 95 03/18/17 00:00 98.9 63 18 113/59 (77) 95 03/17/17 20:37 99.7 78 18 136/70 (92) 95 03/17/17 20:00 Room Air 03/17/17 17:00 98.0 77 20 144/77 (99) 97 03/17/17 14:33 94 UO 2250ml overnight Microbiology Date/Time Source Procedure Growth Status 03/02/17 09:24 Blood Peripheral Aerobic Blood Culture - Final NO GROWTH IN 5 DAYS Complete 03/02/17 09:24 Blood Peripheral Anaerobic Blood Culture - Final NO GROWTH IN 5 DAYS Complete 03/02/17 13:30 Urine Catheterized Urine Urine Culture - Final NO GROWTH IN 48 HOURS. Complete 03/08/17 00:00 Wound Wrist Fungal Smear - Final NO FUNGAL ELEMENTS SEEN. Resulted 03/08/17 00:00 Wound Wrist Fungal Culture - Preliminary NO GROWTH IN 1 WEEK Resulted Laboratory Tests Test 03/16/17 10:37 03/18/17 07:34 C-Reactive Protein 10.50 MG/DL (0.00-0.30) Total Protein 6.2 GM/DL (6.4-8.2) 5.5 GM/DL (6.4-8.2) Albumin 1.1 GM/DL (3.4-5.0) 1.1 GM/DL (3.4-5.0) Red Blood Count 2.77 MIL/MM3 (4.50-5.90) Hemoglobin 8.0 GM/DL (13.0-17.0) Hematocrit 24.0 % (39.0-51.0) Red Cell Distribution Width 17.4 % (11.6-17.2) Neutrophils (%) (Auto) 74.0 % (16.0-70.0) Monocytes (%) (Auto) 8.5 % (0.0-8.0) Blood Urea Nitrogen 29 MG/DL (7-18) Creatinine 1.44 MG/DL (0.60-1.30) Random Glucose 112 MG/DL (74-106) Calcium Level 7.9 MG/DL (8.5-10.1) Chloride Level 110 MEQ/L (98-107) Estimat Glomerular Filtration Rate 50 ML/MIN (>89) Last Impressions Abdomen X-Ray 03/08/17 0000 Signed Impressions: Service Date/Time: Wednesday, March 08, 2017 10:30 - CONCLUSION: Nonspecific, negative for obstruction or ileus. Isaac Stevenson MD FACR Chest X-Ray 03/02/17 0000 Signed Impressions: Service Date/Time: Thursday, March 02, 2017 13:26 - CONCLUSION: Interval develop of a small left-sided pleural effusion. Pulmonary venous congestion. Edenilson Oviedo MD Lower Extremity CT 03/01/17 0000 Signed Impressions: Service Date/Time: Wednesday, March 01, 2017 11:12 - CONCLUSION: 1. No evidence of organized fluid collections to suggest an abscess. 2. Extensive soft tissue swelling surrounding the ankle and extending to the forefoot especially along the lateral aspect. 3. No erosive or destructive bone changes. 4. Bone defects compatible with previous excision device. Blake Rider MD Ankle X-Ray 02/26/17 0000 Signed Impressions: Service Date/Time: Sunday, February 26, 2017 17:15 - CONCLUSION: I see no retained surgical instruments. Isaac Stevenson MD FACR Upper Extremity Ultrasound 02/25/17 6174 Signed Impressions: Service Date/Time: February 17:54 - CONCLUSION: There is a thin fluid collection within the focal area of soft tissue swelling 2nd digit. Osacr Cassidy MD Hand X-Ray 02/25/17 0000 Signed Impressions: Service Date/Time: February 18:59 - CONCLUSION: No gross bony abnormality. Oscar Cassidy MD Lower Extremity Ultrasound 02/24/17 0000 Signed Impressions: Service Date/Time: Friday, February 24, 2017 13:41 - CONCLUSION: Negative for deep venous thrombosis. Isaac Stevenson MD FACR Head CT 02/24/17 0000 Signed Impressions: Service Date/Time: Friday, February 24, 2017 16:08 - CONCLUSION: 1. No acute intracranial abnormality. 2. Probable large mucocele in the sphenoid sinus. Ty Hankins MD Abdomen/Pelvis CT 02/24/17 0000 Signed Impressions: Service Date/Time: Friday, February 24, 2017 16:16 - CONCLUSION: 1. Marked gaseous distension of large and small bowel most suggestive of ileus. 2. There is no free air. 3. 2.2 cm left adrenal mass. 4. Distended bladder. Isaac Stevenson MD FACR Vital Signs I/O 03/18/17 23:59 Intake Total 2672 ml Output Total 600 ml Balance 2072 ml Laboratory Tests Test 03/18/17 07:34 White Blood Count 9.5 TH/MM3 Red Blood Count 2.77 MIL/MM3 Hemoglobin 8.0 GM/DL Hematocrit 24.0 % Mean Corpuscular Volume 86.8 FL Mean Corpuscular Hemoglobin 28.8 PG Mean Corpuscular Hemoglobin Concent 33.2 % Red Cell Distribution Width 17.4 % Platelet Count 342 TH/MM3 Mean Platelet Volume 9.9 FL Neutrophils (%) (Auto) 74.0 % Lymphocytes (%) (Auto) 15.7 % Monocytes (%) (Auto) 8.5 % Eosinophils (%) (Auto) 1.5 % Basophils (%) (Auto) 0.3 % Neutrophils # (Auto) 7.0 TH/MM3 Lymphocytes # (Auto) 1.5 TH/MM3 Monocytes # (Auto) 0.8 TH/MM3 Eosinophils # (Auto) 0.1 TH/MM3 Basophils # (Auto) 0.0 TH/MM3 CBC Comment DIFF FINAL Differential Comment Blood Urea Nitrogen 29 MG/DL Creatinine 1.44 MG/DL Random Glucose 112 MG/DL Total Protein 5.5 GM/DL Albumin 1.1 GM/DL Calcium Level 7.9 MG/DL Alkaline Phosphatase 94 U/L Aspartate Amino Transf (AST/SGOT) 25 U/L Alanine Aminotransferase (ALT/SGPT) 24 U/L Total Bilirubin 0.2 MG/DL Sodium Level 144 MEQ/L Potassium Level 3.6 MEQ/L Chloride Level 110 MEQ/L Carbon Dioxide Level 26.7 MEQ/L Anion Gap 7 MEQ/L Estimat Glomerular Filtration Rate 50 ML/MIN GENERAL: This is a well-nourished, well-developed patient, in no apparent distress. SKIN: No rashes, ecchymoses or lesions. Cool and dry. HEAD: Atraumatic. Normocephalic. No temporal or scalp tenderness. EYES: Pupils equal round and reactive. Extraocular motions intact. No scleral icterus. No injection or drainage. ENT: Nose without bleeding, purulent drainage or septal hematoma. Throat without erythema, tonsillar hypertrophy or exudate. Uvula midline. Airway patent. NECK: Trachea midline. Supple, nontender, no meningeal signs. CARDIOVASCULAR: Regular rate and rhythm without murmurs, gallops, or rubs. RESPIRATORY: Clear to auscultation. Breath sounds equal bilaterally. No wheezes , rales, or rhonchi. GASTROINTESTINAL: Abdomen soft, non-tender, nondistended. PEG tube present : Briseno catheter present MUSCULOSKELETAL: Rt foot with dressing. NEUROLOGICAL: alert, awake, and talkative. no obvious neuro deficits Psych cooperative IV line and PEG tube sites with no e.o infection Objective Vitals Vital Signs Date Time Temp Pulse Resp B/P (MAP) Pulse Ox O2 Delivery O2 Flow Rate FiO2 03/18/17 12:00 98.4 77 18 133/76 (95) 94 03/18/17 08:00 99.1 77 16 121/65 (83) 92 03/18/17 04:39 99.8 76 18 130/66 (87) 95 03/18/17 00:00 98.9 63 18 113/59 (77) 95 03/17/17 20:37 99.7 78 18 136/70 (92) 95 03/17/17 20:00 Room Air 03/17/17 17:00 98.0 77 20 144/77 (99) 97 03/17/17 14:33 94 I/O 03/17/17 03/17/17 03/17/17 03/18/17 03/18/17 03/18/17 06:59 14:59 22:59 06:59 14:59 22:59 Intake Total 0 ml 1000 ml 820 ml 2672 ml Output Total 500 ml 250 ml 600 ml Balance -500 ml 1000 ml 570 ml 2072 ml Intake Oral 0 ml 720 ml 120 ml IV Total 1000 ml 100 ml 1818 ml Tube Feeding 734 ml Output Urine Total 500 ml 250 ml 600 ml Bladder Scan Volume Amount 587 ml 522 ml 587 ml 499 ml # Bowel Movements 0 1 1 Result Diagram: 03/18/17 0734 03/18/1734 Imaging Medications and IVs A/P Assessment and Plan 1. MRSA bacteremia 2. Poss Endocarditis 3. Bilateral hand abscess, poss tenosynovitis- s/p multiple I&D 4. Right ankle hardware infection-s/p I&D 5. Alcoholism 6. Acute Renal failure- sepsis, poss vancomycin toxicity 7. Hypoalbuminemia- malnutrition, chronic alcoholism 8. Homelessness Plan for the day 1. Continue daptomycin IV 2. Continue rifampin oral 3. NPO for poss hand surgery today 4. Monitor CBC with diff, LFT, Creatinine, and CK 5. F/u clinically Cammie Mendez M3 Mar 18, 2017 13:36
[2017-03-18 16:00] VITALS: BP 132/70; PULSE 76; RESP 18; TEMP 98.7; O2SAT 93
[2017-03-18] MEDS ORDERED: VANCOMYCIN HCL 1000 MG VIAL ONE (18:15)
--- NOTE | 2017-03-18 19:34 | PD.OP ---
Operative Report Preoperative Diagnosis: (1) Infectious tenosynovitis of right wrist extensor Postoperative Diagnosis: (1) Infectious tenosynovitis of right wrist extensor Procedure: exploration, wash, excisional debridement and closure right hand/wrist/forearm wounds Anesthesia: general Surgeon: Roque Bullock Interactive Marketing Strategist(s): dhara Operation and Findings: minimal necrotic and devitalized tissues involving the extensor aspect of the hand, wrist and forearm. minimal devitalized tissue involving the extensor tendons Roque Bullock MD Mar 18, 2017 19:34
[2017-03-18 20:41] VITALS: BP 139/76; PULSE 73; RESP 19; TEMP 98.7; O2SAT 95
--- NOTE | 2017-03-18 22:16 | HHI.NPPN ---
Subjective History of Present Illness 61 year old male with past medical history of hypertension, history of being homeless. He was admitted on February 25 with altered mental status and leukocytosis. I was called to see the patient because of elevated BUN and creatinine. Additional Remarks Patient seen after the OR, has pain in hands and back. Objective Data Data 03/18/17 03/19/17 18:59 06:59 Intake Total 859 ml 750 ml Output Total 1400 ml Balance -541 ml 750 ml Intake Oral 0 ml IV Total 859 ml Other 750 ml Output Urine Total 1400 ml # Bowel Movements 1 Vital Signs Date Time Temp Pulse Resp B/P (MAP) Pulse Ox O2 Delivery O2 Flow Rate FiO2 03/18/17 20:41 98.7 73 19 139/76 (97) 95 03/18/17 20:10 98.0 75 14 99 Nasal Cannula 2 03/18/17 20:00 72 14 150/71 (97) 98 Nasal Cannula 2 03/18/17 19:45 69 13 139/65 (89) 98 Nasal Cannula 2 03/18/17 19:40 98.1 71 14 128/68 (88) 98 Nasal Cannula 2 03/18/17 16:00 98.7 76 18 132/70 (90) 93 03/18/17 12:00 98.4 77 18 133/76 (95) 94 03/18/17 08:50 Room Air 03/18/17 08:00 99.1 77 16 121/65 (83) 92 03/18/17 04:39 99.8 76 18 130/66 (87) 95 03/18/17 00:00 98.9 63 18 113/59 (77) 95 -: 03/18/17 0734 03/18/17 0734 Physical Exam General Appearance: No Acute Distress, Anxious Eyes Eye Exam: Pupils Equal Throat Throat Exam: Oral Mucosa Finklea & Moist Neck Neck Exam: Neck Supple Pulmonary Resp Exam: Breath Sounds Equal, No Distress, Rhonchi, Decreased Bases Cardiology CV Exam: Regular, Normal Sinus Rhythm Gastrointestinal/Abdomen GI Exam: Soft, Non-Tender, Bowel Sounds Present Extremeties Extremities Exam: Trace Edema Neurologic Neuro Exam: Alert, Awake Assessment/Plan Assessment Summary: THADDEUS/Acute Renal Failure Problem List: (1) Encephalopathy ICD Codes: G93.40 - Encephalopathy, unspecified Status: Acute (2) Essential hypertension ICD Codes: I10 - Essential (primary) hypertension Status: Acute (3) Hepatitis C, chronic ICD Codes: B18.2 - Chronic viral hepatitis C Status: Acute (4) Abscess of right hand including fingers ICD Codes: L02.511 - Cutaneous abscess of right hand Status: Acute (5) Abscess of left hand including fingers ICD Codes: L02.512 - Cutaneous abscess of left hand Status: Acute (6) Alcoholism ICD Codes: F10.20 - Alcohol dependence, uncomplicated Status: Acute (7) CHF (congestive heart failure) ICD Codes: I50.9 - Heart failure, unspecified Status: Acute (8) Sepsis ICD Codes: A41.9 - Sepsis, unspecified organism Status: Acute (9) ARF (acute renal failure) ICD Codes: N17.9 - Acute kidney failure, unspecified Status: Acute Plan Patient has been non oliguric. Urine Eosinophils negative. Urine Na. is normal. Most likely had ATN. Briseno's catheter was inserted as has high Bladder residual. Creatinine remain stable at 1.4. Avoid Nephrotoxins. Problem Qualifiers (1) Sepsis: Diane Barker MD Mar 18, 2017 22:16
[2017-03-18] MEDS: PANTOPRAZOLE SODIUM 40 MG VIAL IV PUSH SCH (23:56)
[2017-03-19] VITALS (7 sets, daily range): BP systolic 111–145; BP diastolic 59–73; PULSE 69–73; RESP 16–20; TEMP 98–99.6; O2SAT 92–99
[2017-03-19] MEDS: cloNIDine HCL 0.3 MG TAB PO SCH ×3 (05:17→21:12)
[2017-03-19 08:34] LABS: HEMATOCRIT 25.2 % (39.0-51.0); MEAN CELL VOLUME 86.9 FL (80.0-100.0); MEAN CORPUSCULAR HEMOGLOBIN 27.6 PG (27.0-34.0); MEAN CORPUSCULAR HGB CONC 31.7 % (32.0-36.0); PLATELET COUNT 323 TH/MM3 (150-450); RED CELL DISTRIBUTION WIDTH 17.3 % (11.6-17.2); REVIEW FLAG FINAL; WHITE BLOOD COUNT 10.8 TH/MM3 (4.0-11.0)
[2017-03-19 09:03] LABS: BICARBONATE 26.1 MEQ/L (21.0-32.0); POTASSIUM 3.8 MEQ/L (3.5-5.1)
[2017-03-19] MEDS: MUPIROCIN 2% OINT 1 APPLIC/GM SYR NASAL SCH ×2 (09:28→21:12)
[2017-03-19] MEDS: THIAMINE HCL 100 MG TAB PO SCH (09:29)
[2017-03-19] MEDS: LISINOPRIL 5 MG TAB PO SCH (09:29)
[2017-03-19] MEDS: MULTIVITAMIN TAB PO SCH (09:29)
[2017-03-19] MEDS: CARVEDILOL 6.25 MG TAB PO SCH ×2 (09:29→21:12)
[2017-03-19] MEDS: RIFAMPIN 150 MG CAP PO SCH ×2 (09:29→21:12)
[2017-03-19] MEDS: DAPTOMYCIN IV SCH (13:09)
[2017-03-19] MEDS: SODIUM CHLORIDE 0.9% IV SCH (13:09)
[2017-03-19] MEDS: ENOXAPARIN SODIUM 40 MG/0.4 ML SYRINGE SQ SCH (13:10)
[2017-03-19] MEDS: NS + KCL 20 MEQ INJ 1,000 ML IV SCH (13:18)
--- NOTE | 2017-03-19 14:12 | HHI.PR ---
Subjective Remarks Patient is status post op last night for his right arm. Right arm is in an elevated sling when seen. He complains of muscle spasms and requests a muscle relaxant. No other complaints. Blood thinner has been resumed. Objective Vital Signs Date Time Temp Pulse Resp B/P (MAP) Pulse Ox O2 Delivery O2 Flow Rate FiO2 03/19/17 08:50 Room Air 03/19/17 08:44 96 Nasal Cannula 2.00 03/19/17 08:02 99.4 73 18 120/65 (83) 95 03/19/17 04:00 98.5 73 19 119/61 (80) 95 03/19/17 04:00 Nasal Cannula 2.00 03/19/17 00:00 99.4 70 16 115/61 (79) 99 03/19/17 00:00 Nasal Cannula 2.00 03/18/17 20:41 98.7 73 19 139/76 (97) 95 03/18/17 20:10 98.0 75 14 99 Nasal Cannula 2 03/18/17 20:00 72 14 150/71 (97) 98 Nasal Cannula 2 03/18/17 20:00 Nasal Cannula 2.00 03/18/17 19:45 69 13 139/65 (89) 98 Nasal Cannula 2 03/18/17 19:40 98.1 71 14 128/68 (88) 98 Nasal Cannula 2 03/18/17 16:00 98.7 76 18 132/70 (90) 93 I/O 03/18/17 03/18/17 03/18/17 03/19/17 03/19/17 03/19/17 07:00 15:00 23:00 07:00 15:00 23:00 Intake Total 2672 ml 100 ml 1509 ml 425 ml Output Total 600 ml 1400 ml 1150 ml Balance 2072 ml -1300 ml 1509 ml -725 ml Intake Oral 120 ml 0 ml 280 ml IV Total 1818 ml 100 ml 759 ml 145 ml Tube Feeding 734 ml Other 750 ml Output Urine Total 600 ml 1400 ml 1150 ml Bladder Scan Volume Amount 499 ml # Bowel Movements 1 1 0 Result Diagram: 03/19/17 0735 03/19/17 0735 Objective Remarks GENERAL: NAD, A&Ox3 HEAD: Normocephalic. NECK: Supple, trachea midline. No lymphadenopathy. EYES: No scleral icterus. No injection or drainage. CARDIOVASCULAR: Regular rate and rhythm without murmurs, gallops, or rubs. RESPIRATORY: Breath sounds equal bilaterally. No accessory muscle use. GASTROINTESTINAL: Abdomen soft, non-tender, nondistended. MUSCULOSKELETAL: No cyanosis, or edema. Right and left arms are bandaged. Right foot is in bandage. SKIN: Warm and dry. NEURO: No focal neurological deficitis. A/P Assessment and Plan Assessment and Plan 61-year-old male admitted secondary to numerous infections including bilateral hands and right ankle. Previous history of right ankle. Patient also had encephalopathy secondary to infection and alcohol withdrawal time of admit. Encephalopathy has improved. Continued treatments of infections are ongoing. Status post I&D of right elbow yesterday. Continue wound care. Robaxin started for muscle spasms. Sepsis Resolved MRSA Bacteremia Septic Joints (MRSA) Continue rifampin and dapto Plan for long-term IV antibiotics, rifampin for 6 weeks Likely will need intermediate facility placement Continue oxycodone and Dilaudid for pain May still need further surgical intervention Hand surgeon following Podiatry following ID following Multiple surgeries thus far: - podiatry Dr. Reyes/Dr. Gamez on 02/26, 02/28, 03/04 - hand surgeon Dr. Bullock on 02/26, 02/28, 03/04, 03/08, 03/10 Anemia Most recent hemoglobin is 8.0 Follow CBC May need repeat transfusion if the trend is downward Last transfusion was one unit on 03/12/17 Continued present diet Acute Toxic/Metabolic Encephalopathy secondary to Sepsis Acute Alcohol Withdrawal Resolved Hypernatremia Resolved Hypokalemia Replace as needed Continue to monitor Hypertension Continue clonidine and Coreg Follow blood pressures Adjust as needed for control Mild Systolic CHF EF of 40-45% with global hypokinesis found on 02/28/17 Medical management to continue Continue beta amarjit Continue lisinopril THADDEUS Monitor renal function Avoid nephrotoxins Previous event was likely secondary to ATN Nephrology following Urinary retention Monitor urine output Hepatitis C Standard precautions DVT Prophylaxis Jj Jaramillo MD Mar 19, 2017 2:12 pm
[2017-03-19] MEDS: METHOCARBAMOL 500 MG TAB PO SCH ×2 (15:51→21:12)
--- NOTE | 2017-03-19 18:34 | HHI.PR ---
Subjective Remarks follow up multiple debridements right hand/wrist and forearm and closure no fever complains of mild pain responds to oral commands Objective Vital Signs Date Time Temp Pulse Resp B/P (MAP) Pulse Ox O2 Delivery O2 Flow Rate FiO2 03/19/17 12:02 98.8 72 18 126/64 (84) 93 03/19/17 08:50 Room Air 03/19/17 08:44 96 Nasal Cannula 2.00 03/19/17 08:02 99.4 73 18 120/65 (83) 95 03/19/17 04:00 98.5 73 19 119/61 (80) 95 03/19/17 04:00 Nasal Cannula 2.00 03/19/17 00:00 99.4 70 16 115/61 (79) 99 03/19/17 00:00 Nasal Cannula 2.00 03/18/17 20:41 98.7 73 19 139/76 (97) 95 03/18/17 20:10 98.0 75 14 99 Nasal Cannula 2 03/18/17 20:00 72 14 150/71 (97) 98 Nasal Cannula 2 03/18/17 20:00 Nasal Cannula 2.00 03/18/17 19:45 69 13 139/65 (89) 98 Nasal Cannula 2 03/18/17 19:40 98.1 71 14 128/68 (88) 98 Nasal Cannula 2 I/O 03/18/17 03/18/17 03/18/17 03/19/17 03/19/17 03/19/17 06:59 14:59 22:59 06:59 14:59 22:59 Intake Total 2672 ml 100 ml 1509 ml 425 ml Output Total 600 ml 1400 ml 1150 ml Balance 2072 ml -1300 ml 1509 ml -725 ml Intake Oral 120 ml 0 ml 280 ml IV Total 1818 ml 100 ml 759 ml 145 ml Tube Feeding 734 ml Other 750 ml Output Urine Total 600 ml 1400 ml 1150 ml Bladder Scan Volume Amount 499 ml # Bowel Movements 1 1 0 right upper extremity: decreased swelling and redness packing in place minimal drainage able to wiggle his finger intact sensation repeat cultures right wrist region negative: left hand: healing wounds no signs of infection Result Diagram: 03/19/17 0735 03/19/17 0735 Assessment and Plan Assessment and Plan 61 year old male s/p incision and drainage, arthrotomy bilateral index finger MP joints, extensor tenosynovectomy POD 1 plan dressing changed, packing pulled out few cms continue antibiotics based on ID recommendations continue with limb elevation hand surgery will follow Roque Bullock MD Mar 19, 2017 18:34
--- NOTE | 2017-03-19 19:36 | HHI.NPPN ---
Subjective History of Present Illness 61 year old male with past medical history of hypertension, history of being homeless. He was admitted on February 25 with altered mental status and leukocytosis. I was called to see the patient because of elevated BUN and creatinine. Additional Remarks Patient = has pain in hands and back, clinically same. Objective Data Data 03/19/17 03/20/17 19:00 07:00 Intake Total 547 ml Output Total 800 ml Balance -253 ml Intake Oral 0 ml IV Total 547 ml Output Urine Total 800 ml # Bowel Movements 0 Vital Signs Date Time Temp Pulse Resp B/P (MAP) Pulse Ox O2 Delivery O2 Flow Rate FiO2 03/19/17 16:02 98.6 70 18 122/68 (86) 95 03/19/17 12:02 98.8 72 18 126/64 (84) 93 03/19/17 08:50 Room Air 03/19/17 08:44 96 Nasal Cannula 2.00 03/19/17 08:02 99.4 73 18 120/65 (83) 95 03/19/17 04:00 98.5 73 19 119/61 (80) 95 03/19/17 04:00 Nasal Cannula 2.00 03/19/17 00:00 99.4 70 16 115/61 (79) 99 03/19/17 00:00 Nasal Cannula 2.00 03/18/17 20:41 98.7 73 19 139/76 (97) 95 03/18/17 20:10 98.0 75 14 99 Nasal Cannula 2 03/18/17 20:00 72 14 150/71 (97) 98 Nasal Cannula 2 03/18/17 20:00 Nasal Cannula 2.00 03/18/17 19:45 69 13 139/65 (89) 98 Nasal Cannula 2 03/18/17 19:40 98.1 71 14 128/68 (88) 98 Nasal Cannula 2 -: 03/19/17 0735 03/19/17 0735 Physical Exam General Appearance: No Acute Distress, Anxious Eyes Eye Exam: Pupils Equal Throat Throat Exam: Oral Mucosa [place] & Moist Neck Neck Exam: Neck Supple Pulmonary Resp Exam: Breath Sounds Equal, No Distress, Rhonchi, Decreased Bases Cardiology CV Exam: Regular, Normal Sinus Rhythm Gastrointestinal/Abdomen GI Exam: Soft, Non-Tender, Bowel Sounds Present Extremeties Extremities Exam: Trace Edema Neurologic Neuro Exam: Alert, Awake Assessment/Plan Assessment Summary: THADDEUS/Acute Renal Failure Problem List: (1) Encephalopathy ICD Codes: G93.40 - Encephalopathy, unspecified Status: Acute (2) Essential hypertension ICD Codes: I10 - Essential (primary) hypertension Status: Acute (3) Hepatitis C, chronic ICD Codes: B18.2 - Chronic viral hepatitis C Status: Acute (4) Abscess of right hand including fingers ICD Codes: L02.511 - Cutaneous abscess of right hand Status: Acute (5) Abscess of left hand including fingers ICD Codes: L02.512 - Cutaneous abscess of left hand Status: Acute (6) Alcoholism ICD Codes: F10.20 - Alcohol dependence, uncomplicated Status: Acute (7) CHF (congestive heart failure) ICD Codes: I50.9 - Heart failure, unspecified Status: Acute (8) Sepsis ICD Codes: A41.9 - Sepsis, unspecified organism Status: Acute (9) ARF (acute renal failure) ICD Codes: N17.9 - Acute kidney failure, unspecified Status: Acute Plan Patient has been non oliguric. Urine Eosinophils negative. Urine Na. is normal. Most likely had ATN. Briseno's catheter was inserted as has high Bladder residual. Creatinine remain stable at 1.4. Avoid Nephrotoxins. Continue antibiotics. Problem Qualifiers (1) Sepsis: Diane Barker MD Mar 19, 2017 19:36
--- NOTE | 2017-03-19 19:44 | PD.CARD.PN ---
Subjective Subjective Remarks No CP or SOB, c/o neck and back spasms Objective Medications Current Medications Medications (Trade) Dose Ordered Sig/Kayla Route Start Time Stop Time Status Last Admin (NS Flush) 2 ml UNSCH PRN IV FLUSH 02/24/17 13:45 02/24/17 13:38 (Zofran Inj) 4 mg Q8HR PRN IV PUSH 02/24/17 18:00 (Vitamin B1) 100 mg DAILY PO 02/25/17 09:00 03/19/17 09:29 (Romazicon Inj) 0.2 mg Q1M PRN IV PUSH 02/25/17 09:15 (Ativan) 1 mg Q4H PRN PO 02/25/17 09:15 03/04/17 09:13 (Ativan Inj) 1 mg Q4H PRN IV PUSH 02/25/17 09:15 03/05/17 02:41 (Theragran) 1 tab DAILY PO 02/26/17 09:00 03/19/17 09:29 (Ofirmev Inj) 650 mg Q6H PRN IV 02/25/17 21:00 03/06/17 20:12 (Trandate Inj) 10 mg Q6H PRN IV PUSH 02/25/17 23:15 (Protonix Inj) 40 mg Q24H IV PUSH 02/26/17 00:00 03/18/17 23:56 Miscellaneous Information Patient in critical care unit? Ass... [id number] .XX 02/26/17 07:15 (Bactroban Nasal 2% Oint) 1 applic BID NASAL 02/26/17 09:00 03/19/17 09:28 (Catapres) 0.3 mg Q8HR PO 02/26/17 22:11 03/19/17 13:17 (Roxicodone) 5 mg Q4H PRN PO 02/28/17 07:45 03/19/17 17:39 (Dilaudid Pf Inj) 0.5 mg Q3H PRN IV PUSH 02/28/17 07:45 03/18/17 10:06 (Rifampin) 300 mg Q12HR PO 03/02/17 21:00 03/19/17 09:29 (Coreg) 6.25 mg Q12HR PO 03/03/17 21:00 03/19/17 09:29 Daptomycin 550 mg/ Sodium Chloride 100 ml @ 200 mls/hr Q24H IV 03/06/17 12:00 03/19/17 13:09 (Dulcolax Supp) 10 mg DAILY PRN RECTAL 03/06/17 21:00 (Lactulose Liq) 30 ml DAILY PRN NG 03/06/17 21:00 03/07/17 18:45 (Colace Liq) 100 mg Q12HR PO 03/06/17 21:15 Future Hold 03/09/17 09:30 (Prinivil) 2.5 mg DAILY PO 03/09/17 09:00 03/19/17 09:29 (Pill Splitter) 1 ea UNSCH PRN OTHER 03/08/17 21:15 (Lovenox Inj) 40 mg Q24H SQ 03/10/17 13:00 Future hold 03/19/17 13:10 Potassium Chloride/Sodium Chloride 1,000 ml @ 75 mls/hr [id number] IV 03/13/17 11:30 03/19/17 13:18 (Robaxin) 500 mg Q8HR PO 03/19/17 14:00 03/19/17 15:51 Vital Signs / I&O Vital Signs Date Time Temp Pulse Resp B/P (MAP) Pulse Ox O2 Delivery O2 Flow Rate FiO2 03/19/17 16:02 98.6 70 18 122/68 (86) 95 03/19/17 12:02 98.8 72 18 126/64 (84) 93 03/19/17 08:50 Room Air 03/19/17 08:44 96 Nasal Cannula 2.00 03/19/17 08:02 99.4 73 18 120/65 (83) 95 03/19/17 04:00 98.5 73 19 119/61 (80) 95 03/19/17 04:00 Nasal Cannula 2.00 03/19/17 00:00 99.4 70 16 115/61 (79) 99 03/19/17 00:00 Nasal Cannula 2.00 03/18/17 20:41 98.7 73 19 139/76 (97) 95 03/18/17 20:10 98.0 75 14 99 Nasal Cannula 2 03/18/17 20:00 72 14 150/71 (97) 98 Nasal Cannula 2 03/18/17 20:00 Nasal Cannula 2.00 03/18/17 19:45 69 13 139/65 (89) 98 Nasal Cannula 2 I/O 03/18/17 03/18/17 03/18/17 03/19/17 03/19/17 03/19/17 07:00 15:00 23:00 07:00 15:00 23:00 Intake Total 2672 ml 100 ml 1509 ml 425 ml 0 ml 547 ml Output Total 600 ml 1400 ml 1150 ml 800 ml Balance 2072 ml -1300 ml 1509 ml -725 ml -800 ml 547 ml Intake Oral 120 ml 0 ml 280 ml 0 ml IV Total 1818 ml 100 ml 759 ml 145 ml 547 ml Tube Feeding 734 ml Other 750 ml Output Urine Total 600 ml 1400 ml 1150 ml 800 ml Bladder Scan Volume Amount 499 ml # Bowel Movements 1 1 0 0 Physical Exam GENERAL: In NAD SKIN: Warm and dry. HEAD: Normocephalic. EYES: No scleral icterus. No injection or drainage. NECK: Supple, trachea midline. No JVD or lymphadenopathy. CARDIOVASCULAR: Regular rate and rhythm without murmurs, gallops, or rubs. RESPIRATORY: Breath sounds equal bilaterally. No accessory muscle use. GASTROINTESTINAL: Abdomen soft, non-tender, nondistended. MUSCULOSKELETAL: No cyanosis, or edema. Laboratory Laboratory Tests Test 03/19/17 07:35 White Blood Count 10.8 TH/MM3 Red Blood Count 2.90 MIL/MM3 Hemoglobin 8.0 GM/DL Hematocrit 25.2 % Mean Corpuscular Volume 86.9 FL Mean Corpuscular Hemoglobin 27.6 PG Mean Corpuscular Hemoglobin Concent 31.7 % Red Cell Distribution Width 17.3 % Platelet Count 323 TH/MM3 Mean Platelet Volume 9.4 FL Blood Urea Nitrogen 26 MG/DL Creatinine 1.43 MG/DL Random Glucose 124 MG/DL Calcium Level 7.8 MG/DL Sodium Level 138 MEQ/L Potassium Level 3.8 MEQ/L Chloride Level 106 MEQ/L Carbon Dioxide Level 26.1 MEQ/L Anion Gap 6 MEQ/L Estimat Glomerular Filtration Rate 50 ML/MIN Imaging Last Impressions Abdomen X-Ray 03/08/17 0000 Signed Impressions: Service Date/Time: Wednesday, March 08, 2017 10:30 - CONCLUSION: Nonspecific, negative for obstruction or ileus. Isaac Stevenson MD FACR Chest X-Ray 03/02/17 0000 Signed Impressions: Service Date/Time: Thursday, March 02, 2017 13:26 - CONCLUSION: Interval develop of a small left-sided pleural effusion. Pulmonary venous congestion. Edenilson Oviedo MD Lower Extremity CT 03/01/17 0000 Signed Impressions: Service Date/Time: Wednesday, March 01, 2017 11:12 - CONCLUSION: 1. No evidence of organized fluid collections to suggest an abscess. 2. Extensive soft tissue swelling surrounding the ankle and extending to the forefoot especially along the lateral aspect. 3. No erosive or destructive bone changes. 4. Bone defects compatible with previous excision device. Blake Rider MD Ankle X-Ray 02/26/17 0000 Signed Impressions: Service Date/Time: Sunday, February 26, 2017 17:15 - CONCLUSION: I see no retained surgical instruments. Isaac Stevenson MD FACR Upper Extremity Ultrasound 02/25/17 1734 Signed Impressions: Service Date/Time: February 17:54 - CONCLUSION: There is a thin fluid collection within the focal area of soft tissue swelling 2nd digit. Oscar Cassidy MD Hand X-Ray 02/25/17 0000 Signed Impressions: Service Date/Time: February 18:59 - CONCLUSION: No gross bony abnormality. Oscar Cassidy MD Lower Extremity Ultrasound 02/24/17 Signed Impressions: Service Date/Time: Friday, February 24, 2017 13:41 - CONCLUSION: Negative for deep venous thrombosis. Isaac Stevenson MD FACR Head CT 02/24/17 Signed Impressions: Service Date/Time: Friday, February 24, 2017 16:08 - CONCLUSION: 1. No acute intracranial abnormality. 2. Probable large mucocele in the sphenoid sinus. Ty Hankins MD Abdomen/Pelvis CT 02/24/17 Signed Impressions: Service Date/Time: Friday, February 24, 2017 16:16 - CONCLUSION: 1. Marked gaseous distension of large and small bowel most suggestive of ileus. 2. There is no free air. 3. 2.2 cm left adrenal mass. 4. Distended bladder. Isaac Stevenson MD FACR Assessment and Plan Problem List: (1) CHF (congestive heart failure) ICD Codes: I50.9 - Heart failure, unspecified Status: Acute (2) Cardiomyopathy ICD Codes: I42.9 - Cardiomyopathy, unspecified Status: Acute (3) ARF (acute renal failure) ICD Codes: N17.9 - Acute kidney failure, unspecified Status: Acute (4) Alcoholism ICD Codes: F10.20 - Alcohol dependence, uncomplicated Status: Acute (5) Tobacco use disorder ICD Codes: Z72.0 - Tobacco use Status: Acute (6) Sepsis ICD Codes: A41.9 - Sepsis, unspecified organism Status: Acute Assessment and Plan No new cardiac issues. Remains stable from cardiac standpoint. Continue current management for cardiomyopathy and CHF including carvedilol and lisinopril. Increase activity, PT. Problem Qualifiers (1) Sepsis: Raquel Escobar MD Mar 19, 2017 19:44
[2017-03-20] VITALS: BP 111/59; PULSE 69; RESP 20; TEMP 98; O2SAT 92
[2017-03-20] MEDS: PANTOPRAZOLE SODIUM 40 MG VIAL IV PUSH SCH (00:12)
[2017-03-20] MEDS: NS + KCL 20 MEQ INJ 1,000 ML IV SCH ×2 (03:06→08:59)
[2017-03-20] MEDS: LORazepam 1 MG TAB PO PRN (03:18)
[2017-03-20 04:00] VITALS: BP 140/68; PULSE 74; RESP 20; TEMP 100.6; O2SAT 93
[2017-03-20] MEDS: cloNIDine HCL 0.3 MG TAB PO SCH ×3 (05:40→21:43)
[2017-03-20] MEDS: METHOCARBAMOL 500 MG TAB PO SCH ×3 (05:40→21:43)
[2017-03-20 06:54] LABS: HEMATOCRIT 26.5 % (39.0-51.0); MEAN CORPUSCULAR HEMOGLOBIN 28.3 PG (27.0-34.0); MEAN CORPUSCULAR HGB CONC 32.5 % (32.0-36.0); PLATELET COUNT 279 TH/MM3 (150-450); RED BLOOD COUNT 3.04 MIL/MM3 (4.50-5.90); REVIEW FLAG FINAL; WHITE BLOOD COUNT 10.2 TH/MM3 (4.0-11.0)
[2017-03-20 07:18] LABS: BICARBONATE 25.4 MEQ/L (21.0-32.0)
[2017-03-20 08:00] VITALS: BP 118/60; PULSE 64; RESP 18; TEMP 99; O2SAT 96
[2017-03-20] MEDS: MUPIROCIN 2% OINT 1 APPLIC/GM SYR NASAL SCH ×2 (09:02→21:43)
[2017-03-20] MEDS: CARVEDILOL 6.25 MG TAB PO SCH ×2 (09:02→21:43)
[2017-03-20] MEDS: RIFAMPIN 150 MG CAP PO SCH ×2 (09:02→21:53)
[2017-03-20] MEDS: MULTIVITAMIN TAB PO SCH (09:02)
[2017-03-20] MEDS: LISINOPRIL 5 MG TAB PO SCH (09:02)
[2017-03-20] MEDS: THIAMINE HCL 100 MG TAB PO SCH (09:02)
[2017-03-20 12:00] VITALS: BP 122/66; PULSE 70; RESP 18; TEMP 99.2; O2SAT 95
[2017-03-20 16:00] VITALS: BP 134/65; PULSE 76; RESP 18; TEMP 100.3; O2SAT 95
--- NOTE | 2017-03-20 16:04 | HHI.NPPN ---
Subjective History of Present Illness 61 year old male with past medical history of hypertension, history of being homeless. He was admitted on February 25 with altered mental status and leukocytosis. I was called to see the patient because of elevated BUN and creatinine. Additional Remarks Patient seen Objective Data Data 03/20/17 03/21/17 19:00 07:00 Bladder Scan Volume Amount 499 ml Vital Signs Date Time Temp Pulse Resp B/P (MAP) Pulse Ox O2 Delivery O2 Flow Rate FiO2 03/20/17 12:00 99.2 70 18 122/66 (84) 95 03/20/17 10:00 16 03/20/17 08:07 Nasal Cannula 1.00 21 03/20/17 08:00 99.0 64 18 118/60 (79) 96 03/20/17 05:00 92 Nasal Cannula 1.00 03/20/17 04:00 100.6 74 20 140/68 (92) 93 03/20/17 00:00 98.0 69 20 111/59 (76) 92 03/19/17 21:53 03/19/17 20:00 99.6 73 20 145/73 (97) 92 03/19/17 20:00 Room Air -: 03/20/17 0547 03/20/17 0547 Physical Exam General Appearance: No Acute Distress, Anxious Eyes Eye Exam: Pupils Equal Throat Throat Exam: Oral Mucosa [place] & Moist Neck Neck Exam: Neck Supple Pulmonary Resp Exam: Breath Sounds Equal, No Distress, Rhonchi, Decreased Bases Cardiology CV Exam: Regular, Normal Sinus Rhythm Gastrointestinal/Abdomen GI Exam: Soft, Non-Tender, Bowel Sounds Present Extremeties Extremities Exam: Trace Edema Neurologic Neuro Exam: Alert, Awake Assessment/Plan Assessment Summary: THADDEUS/Acute Renal Failure Problem List: (1) Encephalopathy ICD Codes: G93.40 - Encephalopathy, unspecified Status: Acute (2) Essential hypertension ICD Codes: I10 - Essential (primary) hypertension Status: Acute (3) Hepatitis C, chronic ICD Codes: B18.2 - Chronic viral hepatitis C Status: Acute (4) Abscess of right hand including fingers ICD Codes: L02.511 - Cutaneous abscess of right hand Status: Acute (5) Abscess of left hand including fingers ICD Codes: L02.512 - Cutaneous abscess of left hand Status: Acute (6) Alcoholism ICD Codes: F10.20 - Alcohol dependence, uncomplicated Status: Acute (7) CHF (congestive heart failure) ICD Codes: I50.9 - Heart failure, unspecified Status: Acute (8) Sepsis ICD Codes: A41.9 - Sepsis, unspecified organism Status: Acute (9) ARF (acute renal failure) ICD Codes: N17.9 - Acute kidney failure, unspecified Status: Acute Plan Patient has been non oliguric. Urine Eosinophils negative. Urine Na. is normal. Most likely had ATN. Briseno's catheter was inserted as has high Bladder residual. Creatinine remain stable at 1.[address] Barker to follow on Wednesday Problem Qualifiers (1) Sepsis: Meagan Lockhart MD Mar 20, 2017 16:04
[2017-03-20] MEDS: SODIUM CHLORIDE 0.9% IV SCH (17:55)
[2017-03-20] MEDS: DAPTOMYCIN IV SCH (17:55)
[2017-03-20] MEDS: ENOXAPARIN SODIUM 40 MG/0.4 ML SYRINGE SQ SCH (17:56)
--- NOTE | 2017-03-20 18:41 | HHI.PR ---
Subjective Remarks Patient resting in bed, awake alert, denied chest pain or short of breath or fever or chills Right arm in lifting skills Objective Vitals Vital Signs Date Time Temp Pulse Resp B/P (MAP) Pulse Ox O2 Delivery O2 Flow Rate FiO2 03/20/17 17:58 16 03/20/17 16:00 100.3 76 18 134/65 (88) 95 03/20/17 12:00 99.2 70 18 122/66 (84) 95 03/20/17 08:07 Nasal Cannula 1.00 21 03/20/17 08:00 99.0 64 18 118/60 (79) 96 03/20/17 05:00 92 Nasal Cannula 1.00 03/20/17 04:00 100.6 74 20 140/68 (92) 93 03/20/17 00:00 98.0 69 20 111/59 (76) 92 03/19/17 21:53 03/19/17 20:00 99.6 73 20 145/73 (97) 92 03/19/17 20:00 Room Air I/O 03/19/17 03/19/17 03/19/17 03/20/17 03/20/17 03/20/17 07:00 15:00 23:00 07:00 15:00 23:00 Intake Total 425 ml 0 ml 547 ml 240 ml 120 ml Output Total 1150 ml 800 ml 0 ml 900 ml 1500 ml Balance -725 ml -800 ml 547 ml -660 ml -1380 ml Intake Oral 280 ml 0 ml 240 ml 120 ml IV Total 145 ml 547 ml Output Urine Total 1150 ml 800 ml 900 ml 1500 ml Tube Feeding Residual Discard 0 ml Bladder Scan Volume Amount 499 ml # Bowel Movements 0 0 0 Result Diagram: 03/20/1754603/20/1747 Objective Remarks GENERAL: This is a well-nourished, well-developed patient, in no apparent distress. SKIN: No rashes, warm and dry HEAD: Atraumatic. Normocephalic. EYES: Pupils equal round and reactive. Extraocular motions intact. No scleral icterus. ENT: Nose without bleeding, or drainage, Airway patent. NECK: Trachea midline. Supple CARDIOVASCULAR: Regular rate and rhythm without murmurs, gallops, or rubs. RESPIRATORY: Fair air entry bilaterally. No wheezes, rales, or rhonchi. GASTROINTESTINAL: Abdomen soft, non-tender, nondistended. Positive bowel sounds MUSCULOSKELETAL:No cyanosis, or edema. Right and left arms are bandaged home right arm in lifting sling. Right foot is in bandage. NEUROLOGICAL: Awake and alert. Moves all extremity. Normal speech.no focal neurological deficit Procedures 03/10/2017 - Dr. Bullock exploration, wash, excisional debridement extensor tenosynovium right wrist/forearm/hand 03/08/17 - Dr. Bullock- exploration, wash, excisional debridement skin, subcutaneous tissue, extensor tenosynovitis right wrist and hand. Findings: necrotic tissue, minimal purulence, extensor tenosynovitis right wrist/hand 03/04/17 - Dr Gamez - Right leg and incision and drainage. Right foot delayed primary closure x3 03/04/17 - Dr. Bullock - Extensor tenosynovectomy second, third, fourth extensor compartments right wrist and excisional debridement wash index finger metacarpal phalangeal joint, excisional wash and excisional debridement left hand. 02/28/17 - Dr. Reyes - Right ankle wound debridement and washout. Implantation of antibiotic vancomycin beads. 02/28/17 - Dr. Bullock - Exploration, wash, excisional debridement index finger metacarpophalangeal joint right hand; Exploration, wash, excisional debridement metacarpophalangeal joint left index finger; Exploration, wash, excisional debridement extensor pollicis longus tendon right thumb and hand. 02/26/17 - Dr. Reyes - Right ankle incision and drainage, arthrotomy, removal infected hardware, bone biopsy. 02/26/17 - Dr. Bullock - Exploration, incision and drainage right hand abscess, Arthrotomy wash metacarpal phalangeal joint right index finger, Arthrotomy wash metacarpal phalangeal joint left index finger. A/P Problem List: (1) Sepsis ICD Code: A41.9 - Sepsis, unspecified organism Status: Acute (2) Right foot infection ICD Code: L08.9 - Local infection of the skin and subcutaneous tissue, unspecified Status: Acute (3) Encephalopathy ICD Code: G93.40 - Encephalopathy, unspecified Status: Acute (4) Alcoholism ICD Code: F10.20 - Alcohol dependence, uncomplicated Status: Acute Assessment and Plan 61-year-old male admitted secondary to numerous infections including bilateral hands and right ankle. Previous history of right ankle. Patient also had encephalopathy secondary to infection and alcohol withdrawal time of admit. Encephalopathy has improved. Continued treatments of infections are ongoing. Status post I&D of right elbow yesterday. Continue wound care. Robaxin started for muscle spasms. 03/20: Continue current care, check CBC in a.m. BMP, monitor for fever Sepsis Resolved MRSA Bacteremia Septic Joints (MRSA) Continue rifampin and dapto Plan for long-term IV antibiotics, rifampin for 6 weeks Likely will need intermediate facility placement Continue oxycodone and Dilaudid for pain May still need further surgical intervention Hand surgeon following Podiatry following ID following Multiple surgeries thus far: - podiatry Dr. Reyes/Dr. Gamez on 02/26, 02/28, 03/04 - hand surgeon Dr. Bullock on 02/26, 02/28, 03/04, 03/08, 03/10 Anemia Most recent hemoglobin is 8.0 Follow CBC May need repeat transfusion if the trend is downward Last transfusion was one unit on 03/12/17 Continued present diet Acute Toxic/Metabolic Encephalopathy secondary to Sepsis Acute Alcohol Withdrawal Resolved Hypernatremia Resolved Hypokalemia Replace as needed Continue to monitor Hypertension Continue clonidine and Coreg Follow blood pressures Adjust as needed for control Mild Systolic CHF EF of 40-45% with global hypokinesis found on 02/28/17 Medical management to continue Continue beta amarjit Continue lisinopril THADDEUS Monitor renal function Avoid nephrotoxins Previous event was likely secondary to ATN Nephrology following Urinary retention Monitor urine output Hepatitis C Standard precautions DVT Prophylaxis Lovenox Problem Qualifiers (1) Sepsis: Kg Zaragoza MD Mar 20, 2017 18:41
[2017-03-20 20:00] VITALS: BP 140/75; PULSE 72; RESP 18; TEMP 99.6; O2SAT 94
[2017-03-21] VITALS: BP 118/59; PULSE 72; RESP 19; TEMP 98.6; O2SAT 95
[2017-03-21 04:00] VITALS: BP 139/73; PULSE 77; RESP 18; TEMP 98.2; O2SAT 95
--- NOTE | 2017-03-21 06:05 | MP ---
cc: ROQUE SAGASTUME MD DATE OF SURGERY: 03/18/2017 PREOPERATIVE DIAGNOSIS: Infectious extensor tenosynovitis right hand, wrist, forearm. POSTOPERATIVE DIAGNOSIS Infectious extensor tenosynovitis right hand, wrist, and forearm. PROCEDURE Exploration, wash, excisional debridement and closure of wounds over the right hand, wrist and forearm. SURGEON Dr. Sagastume. ANESTHESIA General ESTIMATED BLOOD LOSS Minimal. TOURNIQUET No tourniquet was used. SPECIMEN: Specimen was removed and discarded. DISPOSITION: The patient was sent to the Recovery Room in stable condition. INDICATIONS FOR PROCEDURE: The patient is a 61-year-old male with MRSA and septic arthritis involving bilateral index finger MP joints and extensor tenosynovitis involving the right hand, wrist and forearm. The patient is status post multiple excisional debridements and wash. The patient was brought in today for possible closure. His latest cultures about three days ago from the wound was negative. The patient is on IV antibiotics. The patient was explained the risks and benefits of the procedure. Consent was obtained from patient's father as the patient still has some confusion. DESCRIPTION OF PROCEDURE: The patient was brought to the operating room. Under general anesthesia the right upper extremity was thoroughly prepped and draped. A previously placed vessel loops holding the wound edges were removed. Lorie were removed. Minimal necrotic tissue and devitalized tissue was noted involving the skin, subcutaneous tissue and extensor tendons. Excisional debridement of devitalized tissue and necrotic tissue was carried out. Thorough wash was given using normal saline mixed with hydrogen peroxide and normal saline mixed with vancomycin. About a liter of solution was used. The edges of the skin was freshened and approximated using lorie. Packing of the wound was also carried out. He had good distal circulation at the end of the procedure. Bulky hand dressing was applied which was held in place by Sof-Rol and bias hand wrap. The patient was sent to the Recovery Room in stable condition. The plan will be to remove the packing tomorrow and continue with antibiotics based on ID recommendations. Roque Sagastume MD /CURT /7:34 PM /5:47 AM DAISY
[2017-03-21] MEDS: cloNIDine HCL 0.3 MG TAB PO SCH ×3 (06:15→23:42)
[2017-03-21] MEDS: METHOCARBAMOL 500 MG TAB PO SCH ×3 (06:15→23:42)
[2017-03-21] MEDS: NS + KCL 20 MEQ INJ 1,000 ML IV SCH ×2 (06:16→19:30)
[2017-03-21 08:00] VITALS: BP_SYST 116; BP_SYST 146; BP_DIAS 57; BP_DIAS 86; PULSE 68; PULSE 87; RESP 20; TEMP 97.7; TEMP 98.5; O2SAT 95; O2SAT 98
[2017-03-21] MEDS: LISINOPRIL 5 MG TAB PO SCH (09:56)
[2017-03-21] MEDS: RIFAMPIN 150 MG CAP PO SCH ×2 (09:56→23:42)
[2017-03-21] MEDS: CARVEDILOL 6.25 MG TAB PO SCH ×2 (09:57→23:42)
[2017-03-21] MEDS: MUPIROCIN 2% OINT 1 APPLIC/GM SYR NASAL SCH ×2 (09:57→23:42)
[2017-03-21] MEDS: THIAMINE HCL 100 MG TAB PO SCH (09:57)
[2017-03-21] MEDS: MULTIVITAMIN TAB PO SCH (09:57)
[2017-03-21 12:00] VITALS: BP 126/66; PULSE 69; RESP 18; TEMP 97.7; O2SAT 97
--- NOTE | 2017-03-21 12:16 | PD.ORT.PN ---
Subjective Pain Scale: pain improved alot and left hand minimally bothersome Subjective Remarks right wrist some better--left hand much better Objective Vitals Vital Signs Date Time Temp Pulse Resp B/P (MAP) Pulse Ox O2 Delivery O2 Flow Rate FiO2 03/21/17 08:00 97.7 68 20 116/57 (76) 95 03/21/17 04:00 98.2 77 18 139/73 (95) 95 03/21/17 00:00 98.6 72 19 118/59 (78) 95 03/20/17 20:00 99.6 72 18 140/75 (96) 94 03/20/17 20:00 Nasal Cannula 1.00 03/20/17 17:58 16 03/20/17 16:00 100.3 76 18 134/65 (88) 95 I/O 03/20/17 03/20/17 03/20/17 03/21/17 03/21/17 03/21/17 06:59 14:59 22:59 06:59 14:59 22:59 Intake Total 240 ml 120 ml 2644 ml Output Total 900 ml 1500 ml 1700 ml Balance -660 ml -1380 ml 944 ml Intake Oral 240 ml 120 ml 720 ml IV Total 1448 ml Tube Feeding 476 ml Output Urine Total 900 ml 1500 ml 1700 ml Bladder Scan Volume Amount 499 ml 499 ml # Bowel Movements 0 Result Diagram: 03/20/1754603/20/17546 Objective Remarks removed right forearm, central area of the wound with minimal expressible drainage and just serosanguinous drainage on the dressing, compartments soft and compressible, <2 sec capillary refill; no erythema Left hand dressing not changed and intact Assessment & Plan Problem List: (1) Infectious tenosynovitis of right wrist extensor ICD Codes: M65.131 - Other infective (teno)synovitis, right wrist Status: Acute Plan: continue IV antibiotics and Dr. Bullock will see tomorrow. Right hand, wrist and forearm wounds cleaned with peroxide and normal saline and not repacked. Dressed with sterile 4x4s, darin, kerlix and Levy wrap. (2) Abscess of right hand including fingers ICD Codes: L02.511 - Cutaneous abscess of right hand Status: Acute (3) septic arthritis metacarpophalangeal joint right index finger Status: Acute (4) septic arthritis metacarpophalangeal joint left index finger Status: Acute (5) Abscess of left hand including fingers ICD Codes: L02.512 - Cutaneous abscess of left hand Status: Acute (6) Hepatitis C, chronic ICD Codes: B18.2 - Chronic viral hepatitis C Status: Acute (7) Alcoholism ICD Codes: F10.20 - Alcohol dependence, uncomplicated Status: Acute Assessment and Plan dressings changed bilateral hands. continue Ab per primary team. dr costa to evaluate need for additional procedures right arm. will continue to follow Shauna Walker MD Mar 21, 2017 12:16
--- NOTE | 2017-03-21 13:40 | PD.POD ---
Subjective Podiatric Problems s/p I&D with removal of hardware and antibiotic beads R ankle 02/28 Amy s/p I&D R ankle 03/04 Franco Past Med/Surg/Social History Past Surgical History Gastrointestinal: DENIES HX OF: Colectomy, total Social History Smoking Status: Current Every Day Smoker Objective Vital Signs Vital Signs Date Time Temp Pulse Resp B/P (MAP) Pulse Ox O2 Delivery O2 Flow Rate FiO2 03/21/17 12:00 97.7 69 18 126/66 (86) 97 03/21/17 08:00 97.7 68 20 116/57 (76) 95 03/21/17 04:00 98.2 77 18 139/73 (95) 95 03/21/17 00:00 98.6 72 19 118/59 (78) 95 03/20/17 20:00 99.6 72 18 140/75 (96) 94 03/20/17 20:00 Nasal Cannula 1.00 03/20/17 17:58 16 03/20/17 16:00 100.3 76 18 134/65 (88) 95 Coded Allergies: ciprofloxacin (Unverified Adverse Reaction, Intermediate, Dizziness, ) *MDRO Multi-Drug Resistant Organism (Verified Adverse Reaction, Unknown, ) MRSA (blood)+(urine) 02/24/17, (blood) 02/25/17, 02/27/17 (finger,ankle,leg) 02/26/17, 02/28/17 MRSA PCR screen positive 02/25/17 Physical Exam Remarks R medial ankle incision line fluctuant with copious purulent material expressed upon palpation. Posterior ankle incision line also with purulence coming from area with packing located there. Lateral incision line dry and appears coapted. Assessment & Plan A/P s/p I&D with removal of hardware and antibiotic beads R ankle 02/28 Amy s/p I&D R ankle 03/04 Franco Removed proximal sutures from medial incision line and evacuated all purulent material and irrigated/packed open. Bone is clearly evident in base of wound. Consulted Vascular, Flory, josemanuel mccullough for BKA RLE Ordered Ceretec WBC scan to be done in the meantime to assess for osteomyelitis vs abscess. Continue dry sterile dressing R ankle with packing to medial open area with xeroform and 4x4, and iodoform gauze packing to posterior aspect as ordered in the meantime. Paulo Norman DPM Mar 21, 2017 13:40
[2017-03-21] MEDS: SODIUM CHLORIDE 0.9% IV SCH (13:42)
[2017-03-21] MEDS: ENOXAPARIN SODIUM 40 MG/0.4 ML SYRINGE SQ SCH (13:42)
[2017-03-21] MEDS: DAPTOMYCIN IV SCH (13:42)
--- NOTE | 2017-03-21 14:59 | HHI.PR ---
Subjective Remarks Patient resting in the chair Pain is tolerable No fever or chills or chest pain Objective Vitals Vital Signs Date Time Temp Pulse Resp B/P (MAP) Pulse Ox O2 Delivery O2 Flow Rate FiO2 03/21/17 12:00 97.7 69 18 126/66 (86) 97 03/21/17 08:00 97.7 68 20 116/57 (76) 95 03/21/17 04:00 98.2 77 18 139/73 (95) 95 03/21/17 00:00 98.6 72 19 118/59 (78) 95 03/20/17 20:00 99.6 72 18 140/75 (96) 94 03/20/17 20:00 Nasal Cannula 1.00 03/20/17 17:58 16 03/20/17 16:00 100.3 76 18 134/65 (88) 95 I/O 03/20/17 03/20/17 03/20/17 03/21/17 03/21/17 03/21/17 06:59 14:59 22:59 06:59 14:59 22:59 Intake Total 240 ml 120 ml 2644 ml Output Total 900 ml 1500 ml 1700 ml Balance -660 ml -1380 ml 944 ml Intake Oral 240 ml 120 ml 720 ml IV Total 1448 ml Tube Feeding 476 ml Output Urine Total 900 ml 1500 ml 1700 ml Bladder Scan Volume Amount 499 ml 499 ml # Bowel Movements 0 Result Diagram: 03/20/17 0547 03/20/17 0547 Objective Remarks GENERAL: This is a well-nourished, well-developed patient, in no apparent distress. SKIN: No rashes, warm and dry HEAD: Atraumatic. Normocephalic. EYES: Pupils equal round and reactive. Extraocular motions intact. No scleral icterus. ENT: Nose without bleeding, or drainage, Airway patent. NECK: Trachea midline. Supple CARDIOVASCULAR: Regular rate and rhythm without murmurs, gallops, or rubs. RESPIRATORY: Fair air entry bilaterally. No wheezes, rales, or rhonchi. GASTROINTESTINAL: Abdomen soft, non-tender, nondistended. Positive bowel sounds MUSCULOSKELETAL:No cyanosis, or edema. Right and left arms are bandaged home right arm in lifting sling. Right foot is in bandage. NEUROLOGICAL: Awake and alert. Moves all extremity. Normal speech.no focal neurological deficit Procedures 03/10/2017 - Dr. Bullock exploration, wash, excisional debridement extensor tenosynovium right wrist/forearm/hand 03/08/17 - Dr. Bullock- exploration, wash, excisional debridement skin, subcutaneous tissue, extensor tenosynovitis right wrist and hand. Findings: necrotic tissue, minimal purulence, extensor tenosynovitis right wrist/hand 03/04/17 - Dr Gamez - Right leg and incision and drainage. Right foot delayed primary closure x3 03/04/17 - Dr. Bullock - Extensor tenosynovectomy second, third, fourth extensor compartments right wrist and excisional debridement wash index finger metacarpal phalangeal joint, excisional wash and excisional debridement left hand. 02/28/17 - Dr. Reyes - Right ankle wound debridement and washout. Implantation of antibiotic vancomycin beads. 02/28/17 - Dr. Bullock - Exploration, wash, excisional debridement index finger metacarpophalangeal joint right hand; Exploration, wash, excisional debridement metacarpophalangeal joint left index finger; Exploration, wash, excisional debridement extensor pollicis longus tendon right thumb and hand. 02/26/17 - Dr. Reyes - Right ankle incision and drainage, arthrotomy, removal infected hardware, bone biopsy. 02/26/17 - Dr. Bullock - Exploration, incision and drainage right hand abscess, Arthrotomy wash metacarpal phalangeal joint right index finger, Arthrotomy wash metacarpal phalangeal joint left index finger. A/P Problem List: (1) Sepsis ICD Code: A41.9 - Sepsis, unspecified organism Status: Acute (2) Right foot infection ICD Code: L08.9 - Local infection of the skin and subcutaneous tissue, unspecified Status: Acute (3) Encephalopathy ICD Code: G93.40 - Encephalopathy, unspecified Status: Acute (4) Alcoholism ICD Code: F10.20 - Alcohol dependence, uncomplicated Status: Acute Assessment and Plan 61-year-old male admitted secondary to numerous infections including bilateral hands and right ankle. Previous history of right ankle. Patient also had encephalopathy secondary to infection and alcohol withdrawal time of admit. Encephalopathy has improved. Continued treatments of infections are ongoing. Status post I&D of right elbow yesterday. Continue wound care. Robaxin started for muscle spasms. 8/26: Continue current care, check CBC in a.m. BMP, monitor for fever 03/21: Continue current care, monitor vitals, CPS following Sepsis Resolved MRSA Bacteremia Septic Joints (MRSA) Continue rifampin and dapto Plan for long-term IV antibiotics, rifampin for 6 weeks Likely will need prison facility placement Continue oxycodone and Dilaudid for pain May still need further surgical intervention Hand surgeon following Podiatry following ID following Multiple surgeries thus far: - podiatry Dr. Reyes/Dr. Gamez on 02/26, 02/28, 03/04 - hand surgeon Dr. Bullock on 02/26, 02/28, 03/04, 03/08, 03/10 Anemia Most recent hemoglobin is 8.0 Follow CBC May need repeat transfusion if the trend is downward Last transfusion was one unit on 03/12/17 Continued present diet Acute Toxic/Metabolic Encephalopathy secondary to Sepsis Acute Alcohol Withdrawal Resolved Hypernatremia Resolved Hypokalemia Replace as needed Continue to monitor Hypertension Continue clonidine and Coreg Follow blood pressures Adjust as needed for control Mild Systolic CHF EF of 40-45% with global hypokinesis found on 02/28/17 Medical management to continue Continue beta amarjit Continue lisinopril THADDEUS Monitor renal function Avoid nephrotoxins Previous event was likely secondary to ATN Nephrology following Urinary retention Monitor urine output Hepatitis C Standard precautions DVT Prophylaxis Lovenox Problem Qualifiers (1) Sepsis: Kg Zaragoza MD Mar 21, 2017 14:59
[2017-03-21 16:00] VITALS: BP 113/60; PULSE 65; RESP 18; TEMP 98.9; O2SAT 95
[2017-03-21 20:00] VITALS: BP 139/68; PULSE 73; RESP 20; TEMP 99.9; O2SAT 93
--- NOTE | 2017-03-21 21:45 | PD.CAR.PN ---
CVT Progress Note Subjective/Hospital Course: Referral received Full consult TF Lee Martinez Objective: Vital Signs Date Time Temp Pulse Resp B/P (MAP) Pulse Ox O2 Delivery O2 Flow Rate FiO2 03/21/17 20:00 99.9 73 20 139/68 (91) 93 03/21/17 16:00 98.9 65 18 113/60 (77) 95 03/21/17 14:45 20 03/21/17 12:00 97.7 69 18 126/66 (86) 97 03/21/17 09:00 Room Air 03/21/17 08:00 97.7 68 20 116/57 (76) 95 03/21/17 04:00 98.2 77 18 139/73 (95) 95 03/21/17 00:00 98.6 72 19 118/59 (78) 95 Result Diagram: 03/20/17 0547 03/20/17 0547 (1) CHF (congestive heart failure) (2) Cardiomyopathy (3) ARF (acute renal failure) (4) Alcoholism (5) Tobacco use disorder (6) Sepsis Problem Qualifiers (1) Sepsis: Nazario Ruth MD Mar 21, 2017 21:45
[2017-03-21] MEDS: PANTOPRAZOLE SODIUM 40 MG VIAL IV PUSH SCH ×2 (23:43)
[2017-03-22] VITALS: BP 135/60; PULSE 75; RESP 20; TEMP 99.5; O2SAT 95
[2017-03-22 04:00] VITALS: BP 131/66; PULSE 70; RESP 20; TEMP 99.8; O2SAT 95
[2017-03-22] MEDS: METHOCARBAMOL 500 MG TAB PO SCH ×3 (05:52→22:07)
[2017-03-22] MEDS: cloNIDine HCL 0.3 MG TAB PO SCH ×3 (05:52→22:06)
[2017-03-22 08:00] VITALS: BP 130/60; PULSE 69; RESP 20; TEMP 99.4; O2SAT 95
[2017-03-22] MEDS: CARVEDILOL 6.25 MG TAB PO SCH ×2 (08:26→20:23)
[2017-03-22] MEDS: RIFAMPIN 150 MG CAP PO SCH ×2 (08:26→20:23)
[2017-03-22] MEDS: MULTIVITAMIN TAB PO SCH (08:26)
[2017-03-22] MEDS: THIAMINE HCL 100 MG TAB PO SCH (08:26)
[2017-03-22] MEDS: MUPIROCIN 2% OINT 1 APPLIC/GM SYR NASAL SCH ×2 (08:26→20:24)
[2017-03-22] MEDS: LISINOPRIL 5 MG TAB PO SCH (08:27)
--- NOTE | 2017-03-22 10:55 | HHI.PR ---
Subjective Remarks follow up multiple debridements right hand/wrist and forearm and closure no fever complains of mild pain responds to oral commands Objective Vital Signs Date Time Temp Pulse Resp B/P (MAP) Pulse Ox O2 Delivery O2 Flow Rate FiO2 03/22/17 04:00 99.8 70 20 131/66 (87) 95 03/22/17 00:00 99.5 75 20 135/60 (85) 95 03/22/17 00:00 Room Air 03/21/17 20:00 99.9 73 20 139/68 (91) 93 03/21/17 20:00 Room Air 03/21/17 16:00 98.9 65 18 113/60 (77) 95 03/21/17 14:45 20 03/21/17 12:00 97.7 69 18 126/66 (86) 97 I/O 03/21/17 03/21/17 03/21/17 03/22/17 03/22/17 03/22/17 07:00 15:00 23:00 07:00 15:00 23:00 Intake Total 2644 ml 240 ml 455 ml Output Total 1700 ml 1800 ml 1300 ml Balance 944 ml -1560 ml -845 ml Intake Oral 720 ml 240 ml 240 ml IV Total 1448 ml 215 ml Tube Feeding 476 ml Output Urine Total 1700 ml 1800 ml 1300 ml # Bowel Movements 0 right upper extremity: decreased swelling, mild erythema mild gaping of the wound over the radial aspect minimal serous drainage able to move his wrist able wiggle his fingers, stiffness of the little finger noted wbc: normal repeat cultures: negative. Result Diagram: 03/20/17 0547 03/20/17 0547 Assessment and Plan Assessment and Plan 61 year old male s/p incision and drainage, arthrotomy bilateral index finger MP joints, extensor tenosynovectomy s/p closure POD4 plan dressing changed continue antibiotics based on ID recommendations continue with limb elevation and range of motion exercises. removable wrist brace to keep the wrist in extension. hand surgery will follow Roque Bullock MD Mar 22, 2017 10:55
[2017-03-22 12:00] VITALS: BP 157/81; PULSE 74; RESP 20; TEMP 99.4; O2SAT 95
[2017-03-22] MEDS: NS + KCL 20 MEQ INJ 1,000 ML IV SCH ×2 (12:19→22:07)
[2017-03-22] MEDS: DAPTOMYCIN IV SCH (14:58)
[2017-03-22] MEDS: SODIUM CHLORIDE 0.9% IV SCH (14:58)
[2017-03-22] MEDS: ENOXAPARIN SODIUM 40 MG/0.4 ML SYRINGE SQ SCH (14:59)
[2017-03-22 16:00] VITALS: BP 154/73; PULSE 77; RESP 20; TEMP 99.6; O2SAT 100
--- NOTE | 2017-03-22 17:39 | HHI.PR ---
Subjective Remarks Resting in bed, feeling thirsty otherwise no acute complain He saw Dr. Martinez and he was told he will see him again tomorrow Objective Vitals Vital Signs Date Time Temp Pulse Resp B/P (MAP) Pulse Ox O2 Delivery O2 Flow Rate FiO2 03/22/17 12:00 99.4 74 20 157/81 (106) 95 03/22/17 08:00 99.4 69 20 130/60 (83) 95 03/22/17 04:00 99.8 70 20 131/66 (87) 95 03/22/17 00:00 99.5 75 20 135/60 (85) 95 03/22/17 00:00 Room Air 03/21/17 20:00 99.9 73 20 139/68 (91) 93 03/21/17 20:00 Room Air I/O 03/21/17 03/21/17 03/21/17 03/22/17 03/22/17 03/22/17 07:00 15:00 23:00 07:00 15:00 23:00 Intake Total 2644 ml 240 ml 455 ml Output Total 1700 ml 1800 ml 1300 ml Balance 944 ml -1560 ml -845 ml Intake Oral 720 ml 240 ml 240 ml IV Total 1448 ml 215 ml Tube Feeding 476 ml Output Urine Total 1700 ml 1800 ml 1300 ml # Bowel Movements 0 Result Diagram: 03/20/1747 03/20/17546 Objective Remarks GENERAL: This is a well-nourished, well-developed patient, in no apparent distress. SKIN: No rashes, warm and dry HEAD: Atraumatic. Normocephalic. EYES: Pupils equal round and reactive. Extraocular motions intact. No scleral icterus. ENT: Nose without bleeding, or drainage, Airway patent. NECK: Trachea midline. Supple CARDIOVASCULAR: Regular rate and rhythm without murmurs, gallops, or rubs. RESPIRATORY: Fair air entry bilaterally. No wheezes, rales, or rhonchi. GASTROINTESTINAL: Abdomen soft, non-tender, nondistended. Positive bowel sounds MUSCULOSKELETAL:No cyanosis, or edema. Right and left arms are bandaged home right arm in lifting sling. Right foot is in bandage. NEUROLOGICAL: Awake and alert. Moves all extremity. Normal speech.no focal neurological deficit Procedures 03/10/2017 - Dr. Bullock exploration, wash, excisional debridement extensor tenosynovium right wrist/forearm/hand 03/08/17 - Dr. Bullock- exploration, wash, excisional debridement skin, subcutaneous tissue, extensor tenosynovitis right wrist and hand. Findings: necrotic tissue, minimal purulence, extensor tenosynovitis right wrist/hand 03/04/17 - Dr Gamez - Right leg and incision and drainage. Right foot delayed primary closure x3 03/04/17 - Dr. Bullock - Extensor tenosynovectomy second, third, fourth extensor compartments right wrist and excisional debridement wash index finger metacarpal phalangeal joint, excisional wash and excisional debridement left hand. 02/28/17 - Dr. Reyes - Right ankle wound debridement and washout. Implantation of antibiotic vancomycin beads. 02/28/17 - Dr. Bullock - Exploration, wash, excisional debridement index finger metacarpophalangeal joint right hand; Exploration, wash, excisional debridement metacarpophalangeal joint left index finger; Exploration, wash, excisional debridement extensor pollicis longus tendon right thumb and hand. 02/26/17 - Dr. Reyes - Right ankle incision and drainage, arthrotomy, removal infected hardware, bone biopsy. 02/26/17 - Dr. Bullock - Exploration, incision and drainage right hand abscess, Arthrotomy wash metacarpal phalangeal joint right index finger, Arthrotomy wash metacarpal phalangeal joint left index finger. A/P Problem List: (1) Sepsis ICD Code: A41.9 - Sepsis, unspecified organism Status: Acute (2) Right foot infection ICD Code: L08.9 - Local infection of the skin and subcutaneous tissue, unspecified Status: Acute (3) Encephalopathy ICD Code: G93.40 - Encephalopathy, unspecified Status: Acute (4) Alcoholism ICD Code: F10.20 - Alcohol dependence, uncomplicated Status: Acute Assessment and Plan 61-year-old male admitted secondary to numerous infections including bilateral hands and right ankle. Previous history of right ankle. Patient also had encephalopathy secondary to infection and alcohol withdrawal time of admit. Encephalopathy has improved. Continued treatments of infections are ongoing. Status post I&D of right elbow yesterday. Continue wound care. Robaxin started for muscle spasms. 03/20: Continue current care, check CBC in a.m. BMP, monitor for fever 03/21: Continue current care, monitor vitals, CPS following 03/22: [facility] consulted by podiatry due to persistent infection in the proximal ankle, repeat BMP in a.m. Sepsis Resolved MRSA Bacteremia Septic Joints (MRSA) Continue rifampin and dapto Plan for long-term IV antibiotics, rifampin for 6 weeks Likely will need long-term facility placement Continue oxycodone and Dilaudid for pain May still need further surgical intervention Hand surgeon following Podiatry following ID following Multiple surgeries thus far: - podiatry Dr. Reyes/Dr. Gamez on 02/26, 02/28, 03/04 - hand surgeon Dr. Bullock on 02/26, 02/28, 03/04, 03/08, 03/10 Anemia Most recent hemoglobin is 8.0 Follow CBC May need repeat transfusion if the trend is downward Last transfusion was one unit on 03/12/17 Continued present diet Acute Toxic/Metabolic Encephalopathy secondary to Sepsis Acute Alcohol Withdrawal Resolved Hypernatremia Resolved Hypokalemia Replace as needed Continue to monitor Hypertension Continue clonidine and Coreg Follow blood pressures Adjust as needed for control Mild Systolic CHF EF of 40-45% with global hypokinesis found on 02/28/17 Medical management to continue Continue beta amarjit Continue lisinopril THADDEUS Monitor renal function Avoid nephrotoxins Previous event was likely secondary to ATN Nephrology following Urinary retention Monitor urine output Hepatitis C Standard precautions DVT Prophylaxis Lovenox Problem Qualifiers (1) Sepsis: Kg Zaragoza MD Mar 22, 2017 17:39
--- NOTE | 2017-03-22 17:45 | MB ---
cc: NAZARIO SHANE MD DATE OF CONSULTATION 03/22/[address] 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 HISTORY OF THE PRESENT ILLNESS This 61-year-old male with extensive past medical history was admitted to the hospital on February 27 with swelling of the right ankle. This was noted to be septic arthritis with hardware in the joint. The patient underwent drainage. However wires were imbedded deep in the tissue and could not be removed. Since then the patient has been growing MRSA from the right ankle and distal fibula and pus has actually been draining from this thing. Question now arises what can we do about it, a more radical approach is indicated. PAST MEDICAL HISTORY Is that of: 1. Alcoholism. 2. Hepatitis C infection. PAST SURGICAL HISTORY Right foot surgery with hardware placement in the past, but the patient is a poor historian and not telling me much. SOCIAL HISTORY The patient is a heavy smoker and self admitted alcoholic. PHYSICAL EXAMINATION GENERAL: Reveals a 61-year-old male appearing much older than his actual age. HEENT: Normocephalic. No trauma to the head. Pupils equally reactive. Extraocular muscles intact. NECK: Supple. Bilateral carotid pulses, faint right-sided bruit. CHEST: Clear with bilateral breath sounds, decreased over both lung payan consistent with a moderately severe COPD, marked by loss of musculature of the chest wall and some degree of cachexia part of it being pulmonary. CARDIOVASCULAR: Regular rhythm and faint mitral murmur along side the left intercostal space second intercostal space and then along side the sternal border. This clearly is a systolic murmur. ABDOMEN: Soft. Hypoactive bowel sounds, patulous with gastrostomy tube. EXTREMITIES: The patient has bilateral femoral pulses actual by palpation. He has good popliteal pulses by Doppler and dorsalis pedis is present on the right leg, posterior tibial and dorsalis pedis on the left leg. The patient has a wound of the right leg which still draining purulent material at the level of the ankle. The wound is going deep and has destroyed most of the tibial shaft. Capillary refill is decreased. However foot is viable. IMPRESSION AND RECOMMENDATIONS I reviewed the laboratory and diagnostic procedures on this gentleman. He has a complex history but everything is predicated but this osteomyelitis of the right ankle. The patient has degenerative changes in there and while they may not be from osteomyelitis, certainly the patient has deformity of the talus and sort of deformed ankle which is clearly not usable as far as walking is concerned. The patient is continuously growing MRSA out of it despite antibiotic therapy and every local effort to curb this. The patient has been septic when he first came in, however this has resolved now. At this point options are very limited. To continue current therapy as we have it will not eradicate MRSA, but we will do is expose the patient to developing endocarditis and basically systemic sepsis and dying from this either from some sort of an embolus, renal failure, cardiac failure or both. The foreign body i.e. wires remain in the wounds and cannot be removed due to the anatomic limitations. At this point I believe the best option is below-knee amputation because everything else will result in prolonged hospitalization, bedrest and severe complications. I have explained this to the patient and he will discuss it with the family. I definitely recommend below-knee amputation to this gentleman because all of the other options will result in catastrophe. The patient is a fairly high risk surgical candidate for any surgery considering his comorbidities and decreased ejection fraction and his mortality is in the range of 5-10%. However, I do not have any better options at this point to put forward. I thank you much for referral. I will go ahead with MYRNA if family and the patient decide on the same. Nazario HAQ/KK /4:28 PM /5:10 PM DAISY
--- NOTE | 2017-03-22 18:44 | PD.CARD.PN ---
Subjective Subjective Remarks No CP or SOB, c/o back pain Objective Medications Current Medications Medications (Trade) Dose Ordered Sig/Kayla Route Start Time Stop Time Status Last Admin (NS Flush) 2 ml UNSCH PRN IV FLUSH 02/24/17 13:45 02/24/17 13:38 (Zofran Inj) 4 mg Q8HR PRN IV PUSH 02/24/17 18:00 (Vitamin B1) 100 mg DAILY PO 02/25/17 09:00 03/22/17 08:26 (Romazicon Inj) 0.2 mg Q1M PRN IV PUSH 02/25/17 09:15 (Ativan) 1 mg Q4H PRN PO 02/25/17 09:15 03/20/17 03:18 (Ativan Inj) 1 mg Q4H PRN IV PUSH 02/25/17 09:15 03/05/17 02:41 (Theragran) 1 tab DAILY PO 02/26/17 09:00 03/22/17 08:26 (Ofirmev Inj) 650 mg Q6H PRN IV 02/25/17 21:00 03/06/17 20:12 (Trandate Inj) 10 mg Q6H PRN IV PUSH 02/25/17 23:15 (Protonix Inj) 40 mg Q24H IV PUSH 02/26/17 00:00 03/21/17 23:43 Miscellaneous Information Patient in critical care unit? Ass... [id number] .XX 02/26/17 07:15 (Bactroban Nasal 2% Oint) 1 applic BID NASAL 02/26/17 09:00 03/22/17 08:26 (Catapres) 0.3 mg Q8HR PO 02/26/17 22:11 03/22/17 14:58 (Roxicodone) 5 mg Q4H PRN PO 02/28/17 07:45 03/22/17 14:59 (Dilaudid Pf Inj) 0.5 mg Q3H PRN IV PUSH 02/28/17 07:45 03/18/17 10:06 (Rifampin) 300 mg Q12HR PO 03/02/17 21:00 03/22/17 08:26 (Coreg) 6.25 mg Q12HR PO 03/03/17 21:00 03/22/17 08:26 Daptomycin 550 mg/ Sodium Chloride 100 ml @ 200 mls/hr Q24H IV 03/06/17 12:00 03/22/17 14:58 (Dulcolax Supp) 10 mg DAILY PRN RECTAL 03/06/17 21:00 (Lactulose Liq) 30 ml DAILY PRN NG 03/06/17 21:00 03/07/17 18:45 (Colace Liq) 100 mg Q12HR PO 03/06/17 21:15 Future Hold 03/09/17 09:30 (Prinivil) 2.5 mg DAILY PO 03/09/17 09:00 03/22/17 08:27 (Pill Splitter) 1 ea UNSCH PRN OTHER 03/08/17 21:15 (Lovenox Inj) 40 mg Q24H SQ 03/10/17 13:00 Future hold 03/22/17 14:59 Potassium Chloride/Sodium Chloride 1,000 ml @ 75 mls/hr [id number] IV 03/13/17 11:30 03/22/17 12:19 (Robaxin) 500 mg Q8HR PO 03/19/17 14:00 03/22/17 14:59 Vital Signs / I&O Vital Signs Date Time Temp Pulse Resp B/P (MAP) Pulse Ox O2 Delivery O2 Flow Rate FiO2 03/22/17 18:20 Nasal Cannula 1.00 21 03/22/17 16:00 99.6 77 20 154/73 (100) 100 03/22/17 12:00 99.4 74 20 157/81 (106) 95 03/22/17 08:00 99.4 69 20 130/60 (83) 95 03/22/17 04:00 99.8 70 20 131/66 (87) 95 03/22/17 00:00 99.5 75 20 135/60 (85) 95 03/22/17 00:00 Room Air 03/21/17 20:00 99.9 73 20 139/68 (91) 93 03/21/17 20:00 Room Air I/O 03/21/17 03/21/17 03/21/17 03/22/17 03/22/17 03/22/17 07:00 15:00 23:00 07:00 15:00 23:00 Intake Total 2644 ml 240 ml 455 ml 480 ml 900 ml Output Total 1700 ml 1800 ml 1300 ml 1375 ml Balance 944 ml -1560 ml -845 ml -895 ml 900 ml Intake Oral 720 ml 240 ml 240 ml 480 ml IV Total 1448 ml 215 ml 360 ml Tube Feeding 476 ml 300 ml Lipid 240 ml Output Urine Total 1700 ml 1800 ml 1300 ml 1375 ml # Bowel Movements 0 1 Physical Exam GENERAL: In NAD SKIN: Warm and dry. HEAD: Normocephalic. EYES: No scleral icterus. No injection or drainage. NECK: Supple, trachea midline. No JVD or lymphadenopathy. CARDIOVASCULAR: Regular rate and rhythm without murmurs, gallops, or rubs. RESPIRATORY: Breath sounds equal bilaterally. No accessory muscle use. GASTROINTESTINAL: Abdomen soft, non-tender, nondistended. MUSCULOSKELETAL: No cyanosis, or edema. Laboratory Laboratory Tests Test 02/24/17 13:40 02/24/17 13:45 02/24/17 15:41 02/25/17 02:04 Prothrombin Time 12.4 SEC Prothromb Time International Ratio 1.1 RATIO Activated Partial Thromboplast Time 26.8 SEC Ammonia 17 MCMOL/L Creatine Kinase MB 7.1 NG/ML Troponin I 0.02 NG/ML Ethyl Alcohol Level LESS THAN 3 MG/DL Lymphocytes % 1 % Urine Hyaline Casts 5 /lpf Urine Opiates Screen NEG Urine Barbiturates Screen NEG Urine Amphetamines Screen NEG Urine Benzodiazepines Screen NEG Urine Cocaine Screen NEG Urine Cannabinoids Screen NEG Vitamin B12 Level GREATER THAN 2000 PG/ML Folate 11.5 NG/ML Test 02/25/17 07:02 02/25/17 17:45 02/25/17 22:43 02/26/17 06:59 Monocytes % 1 % Red Cell Morphology Comment NORMAL Nasal Screen MRSA (PCR) MRSA DETECTED Blood Gas Puncture Site RT RADIAL Blood Gas Patient Temperature 98.6 Blood Gas HCO3 24 mmol/L Blood Gas Base Excess 0.3 mmol/L Blood Gas Oxygen Saturation 96 % Arterial Blood pH 7.42 Arterial Blood Partial Pressure CO2 38 mmHg Arterial Blood Partial Pressure O2 115 mmHg Arterial Blood Oxygen Content 15.1 Vol % Arterial Blood Carboxyhemoglobin 0.7 % Arterial Blood Methemoglobin 1.0 % Blood Gas Hemoglobin 11.0 G/DL Oxygen Delivery Device NASAL CANNULA Blood Gas Liter Flow 4 L/M Differential Total Cells Counted 100 Neutrophils % (Manual) 89 % Band Neutrophils % 8 % Neutrophils # (Manual) 32.2 TH/MM3 Metamyelocytes 3 % Toxic Granulation 1+ Toxic Vacuolation Dohle Bodies PRESENT Platelet Estimate NORMAL Platelet Morphology Comment NORMAL Ovalocytes 1+ Acanthocytes OCC Hepatitis A IgM Antibody NEGATIVE Hepatitis B Surface Antigen NEGATIVE Hepatitis B Core IgM Antibody NEGATIVE Hepatitis C Antibody REACTIVE HIV (1&2) Antibody NEGATIVE Test 02/27/17 22:40 03/02/17 13:30 03/02/17 23:20 03/04/17 06:41 Vancomycin Level Trough 17.3 MCG/ML Urine Color YELLOW Urine Turbidity CLOUDY Urine pH 5.0 Urine Specific [place] 1.018 Urine Protein 30 mg/dL Urine Glucose (UA) NEG mg/dL Urine Ketones NEG mg/dL Urine Occult Blood SMALL Urine Nitrite NEG Urine Bilirubin NEG Urine Urobilinogen LESS THAN 2.0 MG/DL Urine Leukocyte Esterase MOD Urine RBC 6 /hpf Urine WBC 16 /hpf Urine Squamous Epithelial Cells 1 /hpf Urine Transitional Epithelial Cells <1 /hpf Urine Amorphous Sediment OCC Urine Bacteria MOD /hpf Urine Granular Casts 4 /lpf Urine Mucus FEW /lpf Microscopic Urinalysis Comment CATH-CULTURE IND Lactic Acid Level 1.7 mmol/L B-Type Natriuretic Peptide 671 PG/ML Test 03/05/17 17:36 03/07/17 08:30 03/07/17 17:15 03/08/17 04:32 Urine Eosinophils NONE SEEN /HPF Urine Osmolality 440 MOSM/KG Urine Random Sodium 33 MEQ/L Iron Level 15 MCG/DL Total Iron Binding Capacity 90 MCG/DL Percent Iron Saturation 16.7 % Ferritin 368 NG/ML Reticulocyte Count 0.8 % Absolute Reticulocyte Count 18.9 MIL/L Blood Urea Nitrogen 59 MG/DL Creatinine 2.22 MG/DL Random Glucose 95 MG/DL Albumin 1.1 GM/DL Calcium Level 9.7 MG/DL Phosphorus Level 4.7 MG/DL Magnesium Level 2.3 MG/DL Sodium Level 150 MEQ/L Potassium Level 4.0 MEQ/L Chloride Level 114 MEQ/L Carbon Dioxide Level 30.0 MEQ/L Test 03/09/17 06:15 03/09/17 06:30 03/16/17 10:37 03/18/17 07:34 Total Creatine Kinase 167 U/L Hepatitis C RNA Genotype 1a Hepatitis C RNA (PCR) IUs/ml [id number] IU/mL Hepatitis C RNA (PCR) log IUs/ml 6.17 Direct Bilirubin 0.1 MG/DL Indirect Bilirubin 0.2 MG/DL C-Reactive Protein 10.50 MG/DL Neutrophils (%) (Auto) 74.0 % Lymphocytes (%) (Auto) 15.7 % Monocytes (%) (Auto) 8.5 % Eosinophils (%) (Auto) 1.5 % Basophils (%) (Auto) 0.3 % Neutrophils # (Auto) 7.0 TH/MM3 Lymphocytes # (Auto) 1.5 TH/MM3 Monocytes # (Auto) 0.8 TH/MM3 Eosinophils # (Auto) 0.1 TH/MM3 Basophils # (Auto) 0.0 TH/MM3 CBC Comment DIFF FINAL Differential Comment Blood Urea Nitrogen 29 MG/DL Creatinine 1.44 MG/DL Random Glucose 112 MG/DL Total Protein 5.5 GM/DL Albumin 1.1 GM/DL Calcium Level 7.9 MG/DL Alkaline Phosphatase 94 U/L Aspartate Amino Transf (AST/SGOT) 25 U/L Alanine Aminotransferase (ALT/SGPT) 24 U/L Total Bilirubin 0.2 MG/DL Sodium Level 144 MEQ/L Potassium Level 3.6 MEQ/L Chloride Level 110 MEQ/L Carbon Dioxide Level 26.7 MEQ/L Test 03/20/17 05:47 White Blood Count 10.2 TH/MM3 Red Blood Count 3.04 MIL/MM3 Hemoglobin 8.6 GM/DL Hematocrit 26.5 % Mean Corpuscular Volume 87.0 FL Mean Corpuscular Hemoglobin 28.3 PG Mean Corpuscular Hemoglobin Concent 32.5 % Red Cell Distribution Width 17.0 % Platelet Count 279 TH/MM3 Mean Platelet Volume 10.6 FL Blood Urea Nitrogen 26 MG/DL Creatinine 1.38 MG/DL Random Glucose 122 MG/DL Calcium Level 7.8 MG/DL Sodium Level 139 MEQ/L Potassium Level 4.0 MEQ/L Chloride Level 105 MEQ/L Carbon Dioxide Level 25.4 MEQ/L Anion Gap 9 MEQ/L Estimat Glomerular Filtration Rate 52 ML/MIN Imaging Last Impressions Abdomen X-Ray 03/08/17 0000 Signed Impressions: Service Date/Time: Wednesday, March 08, 2017 10:30 - CONCLUSION: Nonspecific, negative for obstruction or ileus. Isaac Stevenson MD FACR Chest X-Ray 03/02/17 0000 Signed Impressions: Service Date/Time: Thursday, March 02, 2017 13:26 - CONCLUSION: Interval develop of a small left-sided pleural effusion. Pulmonary venous congestion. Edenilson Oviedo MD Lower Extremity CT 03/01/17 0000 Signed Impressions: Service Date/Time: Wednesday, March 01, 2017 11:12 - CONCLUSION: 1. No evidence of organized fluid collections to suggest an abscess. 2. Extensive soft tissue swelling surrounding the ankle and extending to the forefoot especially along the lateral aspect. 3. No erosive or destructive bone changes. 4. Bone defects compatible with previous excision device. Blake Rider MD Ankle X-Ray 02/26/17 0000 Signed Impressions: Service Date/Time: Sunday, February 26, 2017 17:15 - CONCLUSION: I see no retained surgical instruments. Isaac Stevenson MD FACR Upper Extremity Ultrasound 02/25/17 1734 Signed Impressions: Service Date/Time: February 17:54 - CONCLUSION: There is a thin fluid collection within the focal area of soft tissue swelling 2nd digit. Oscar Cassidy MD Hand X-Ray 02/25/17 0000 Signed Impressions: Service Date/Time: February 18:59 - CONCLUSION: No gross bony abnormality. Oscar Cassidy MD Lower Extremity Ultrasound 02/24/17 0000 Signed Impressions: Service Date/Time: Friday, February 24, 2017 13:41 - CONCLUSION: Negative for deep venous thrombosis. Isaac Stevenson MD FACR Head CT 02/24/17 0000 Signed Impressions: Service Date/Time: Friday, February 24, 2017 16:08 - CONCLUSION: 1. No acute intracranial abnormality. 2. Probable large mucocele in the sphenoid sinus. Ty Hankins MD Abdomen/Pelvis CT 02/24/17 0000 Signed Impressions: Service Date/Time: Friday, February 24, 2017 16:16 - CONCLUSION: 1. Marked gaseous distension of large and small bowel most suggestive of ileus. 2. There is no free air. 3. 2.2 cm left adrenal mass. 4. Distended bladder. Isaac Stevenson MD FACR Assessment and Plan Problem List: (1) CHF (congestive heart failure) ICD Codes: I50.9 - Heart failure, unspecified Status: Acute (2) Cardiomyopathy ICD Codes: I42.9 - Cardiomyopathy, unspecified Status: Acute (3) ARF (acute renal failure) ICD Codes: N17.9 - Acute kidney failure, unspecified Status: Acute (4) Alcoholism ICD Codes: F10.20 - Alcohol dependence, uncomplicated Status: Acute (5) Tobacco use disorder ICD Codes: Z72.0 - Tobacco use Status: Acute (6) Sepsis ICD Codes: A41.9 - Sepsis, unspecified organism Status: Acute Assessment and Plan Remains stable from cardiac standpoint. Continue current management for cardiomyopathy and CHF including carvedilol and lisinopril. Increase activity, PT. Recheck echo tomorrow to reevaluate LV fx. Problem Qualifiers (1) Sepsis: Raquel Escobar MD Mar 22, 2017 18:43
[2017-03-22 20:00] VITALS: BP 134/65; PULSE 71; RESP 18; TEMP 98.5; O2SAT 98
--- NOTE | 2017-03-22 22:21 | HHI.NPPN ---
Subjective History of Present Illness 61 year old male with past medical history of hypertension, history of being homeless. He was admitted on February 25 with altered mental status and leukocytosis. I was called to see the patient because of elevated BUN and creatinine. Additional Remarks Patient has pain in hands and back, doing well. Objective Data Data 03/22/17 03/23/17 19:00 07:00 Intake Total 1380 ml Output Total 1375 ml Balance 5 ml Intake Oral 480 ml IV Total 360 ml Tube Feeding 300 ml Lipid 240 ml Output Urine Total 1375 ml # Bowel Movements 1 Vital Signs Date Time Temp Pulse Resp B/P (MAP) Pulse Ox O2 Delivery O2 Flow Rate FiO2 03/22/17 20:00 98.5 71 18 134/65 (88) 98 03/22/17 18:20 Nasal Cannula 1.00 21 03/22/17 16:00 99.6 77 20 154/73 (100) 100 03/22/17 12:00 99.4 74 20 157/81 (106) 95 03/22/17 08:00 99.4 69 20 130/60 (83) 95 03/22/17 04:00 99.8 70 20 131/66 (87) 95 03/22/17 00:00 99.5 75 20 135/60 (85) 95 03/22/17 00:00 Room Air -: 03/20/17 0547 03/20/17 0547 Physical Exam General Appearance: No Acute Distress, Anxious Eyes Eye Exam: Pupils Equal Throat Throat Exam: Oral Mucosa Tancred & Moist Neck Neck Exam: Neck Supple Pulmonary Resp Exam: Breath Sounds Equal, No Distress, Rhonchi, Decreased Bases Cardiology CV Exam: Regular, Normal Sinus Rhythm Gastrointestinal/Abdomen GI Exam: Soft, Non-Tender, Bowel Sounds Present Extremeties Extremities Exam: Trace Edema Neurologic Neuro Exam: Alert, Awake Assessment/Plan Assessment Summary: THADDEUS/Acute Renal Failure Problem List: (1) Encephalopathy ICD Codes: G93.40 - Encephalopathy, unspecified Status: Acute (2) Essential hypertension ICD Codes: I10 - Essential (primary) hypertension Status: Acute (3) Hepatitis C, chronic ICD Codes: B18.2 - Chronic viral hepatitis C Status: Acute (4) Abscess of right hand including fingers ICD Codes: L02.511 - Cutaneous abscess of right hand Status: Acute (5) Abscess of left hand including fingers ICD Codes: L02.512 - Cutaneous abscess of left hand Status: Acute (6) Alcoholism ICD Codes: F10.20 - Alcohol dependence, uncomplicated Status: Acute (7) CHF (congestive heart failure) ICD Codes: I50.9 - Heart failure, unspecified Status: Acute (8) Sepsis ICD Codes: A41.9 - Sepsis, unspecified organism Status: Acute (9) ARF (acute renal failure) ICD Codes: N17.9 - Acute kidney failure, unspecified Status: Acute Plan Patient has been non oliguric. Urine Eosinophils negative. Urine Na. is normal. Most likely had ATN. Briseno's catheter was inserted as has high Bladder residual. Creatinine remain stable at 1.3-1.4. Avoid Nephrotoxins. Continue antibiotics, and debridement as needed. Problem Qualifiers (1) Sepsis: Diane Barker MD Mar 22, 2017 22:21
[2017-03-23] VITALS: BP 122/57; PULSE 69; RESP 16; TEMP 97.8; O2SAT 98
[2017-03-23] MEDS: PANTOPRAZOLE SODIUM 40 MG VIAL IV PUSH SCH ×2 (00:59→23:44)
[2017-03-23 04:00] VITALS: BP 135/67; PULSE 72; RESP 18; TEMP 98.7; O2SAT 94
[2017-03-23] MEDS: cloNIDine HCL 0.3 MG TAB PO SCH ×3 (05:30→21:06)
[2017-03-23] MEDS: METHOCARBAMOL 500 MG TAB PO SCH ×3 (05:30→21:07)
[2017-03-23 08:02] VITALS: BP 135/75; PULSE 74; RESP 18; TEMP 98.9; O2SAT 94
[2017-03-23] MEDS: THIAMINE HCL 100 MG TAB PO SCH (08:41)
[2017-03-23] MEDS: MULTIVITAMIN TAB PO SCH (08:42)
[2017-03-23] MEDS: CARVEDILOL 6.25 MG TAB PO SCH ×2 (08:42→21:04)
[2017-03-23] MEDS: MUPIROCIN 2% OINT 1 APPLIC/GM SYR NASAL SCH ×2 (08:42→21:05)
[2017-03-23] MEDS: RIFAMPIN 150 MG CAP PO SCH (08:42)
[2017-03-23] MEDS: LISINOPRIL 5 MG TAB PO SCH (08:42)
[2017-03-23 10:23] LABS: BICARBONATE 25.1 MEQ/L (21.0-32.0); POTASSIUM 4.1 MEQ/L (3.5-5.1)
--- NOTE | 2017-03-23 11:30 | RADRPT ---
EXAM DATE/TIME: 03/22/2017 13:03 [facility] COMPARISON: No previous studies available for comparison. INDICATIONS : Right ankle infection. DOSE: 23.1 mCi Tc99m Ceretec labeled white blood cells IV PLANAR IMAGIN min MEDICAL HISTORY : Hypertension. SURGICAL HISTORY : Right ankle hardware removed. ENCOUNTER: Initial ACUITY: 1 month PAIN SCALE: 4/10 LOCATION: Right Ankle. TECHNIQUE: Following the in vitro labeling of autologous white cells and reinjection, whole body scan was perfor med at the specified times. FINDINGS: The patient repeat delayed images and exam is nondiagnostic CONCLUSION: Nondiagnostic examination secondary to patient refusal Harry Lucio MD on March 23, 2017 at 11:28 Board Certified Radiologist. This report was verified electronically.
[2017-03-23 12:00] VITALS: BP 136/70; PULSE 72; RESP 20; TEMP 98.6; O2SAT 96
[2017-03-23] MEDS: NS + KCL 20 MEQ INJ 1,000 ML IV SCH ×2 (12:03→23:48)
[2017-03-23] MEDS: ENOXAPARIN SODIUM 40 MG/0.4 ML SYRINGE SQ SCH (12:04)
[2017-03-23] MEDS: DAPTOMYCIN IV SCH (12:04)
[2017-03-23] MEDS: SODIUM CHLORIDE 0.9% IV SCH (12:04)
--- NOTE | 2017-03-23 12:14 | HHI.PR ---
Subjective Remarks Resting in bed denied any acute issue, he just still continue to complain of pain CVS following continue monitor for any fever or sign of infection Objective Vitals Vital Signs Date Time Temp Pulse Resp B/P (MAP) Pulse Ox O2 Delivery O2 Flow Rate FiO2 03/23/17 08:02 98.9 74 18 135/75 (95) 94 03/23/17 08:00 Room Air 03/23/17 04:00 98.7 72 18 135/67 (89) 94 03/23/17 00:00 97.8 69 16 122/57 (78) 98 03/22/17 23:47 Nasal Cannula 2.00 03/22/17 20:00 98.5 71 18 134/65 (88) 98 03/22/17 18:20 Nasal Cannula 1.00 21 03/22/17 16:00 99.6 77 20 154/73 (100) 100 I/O 03/22/17 03/22/17 03/22/17 03/23/17 03/23/17 03/23/17 07:00 15:00 23:00 07:00 15:00 23:00 Intake Total 455 ml 480 ml 900 ml 240 ml Output Total 1300 ml 1375 ml 1650 ml Balance -845 ml -895 ml 900 ml -1410 ml Intake Oral 240 ml 480 ml 240 ml IV Total 215 ml 360 ml Tube Feeding 300 ml Lipid 240 ml Output Urine Total 1300 ml 1375 ml 1650 ml # Bowel Movements 1 0 Result Diagram: 03/20/17 0547 03/23/17 0900 Objective Remarks GENERAL: This is a well-nourished, well-developed patient, in no apparent distress. SKIN: No rashes, warm and dry HEAD: Atraumatic. Normocephalic. EYES: Pupils equal round and reactive. Extraocular motions intact. No scleral icterus. ENT: Nose without bleeding, or drainage, Airway patent. NECK: Trachea midline. Supple CARDIOVASCULAR: Regular rate and rhythm without murmurs, gallops, or rubs. RESPIRATORY: Fair air entry bilaterally. No wheezes, rales, or rhonchi. GASTROINTESTINAL: Abdomen soft, non-tender, nondistended. Positive bowel sounds MUSCULOSKELETAL:No cyanosis, or edema. Right and left arms are bandaged home right arm in lifting sling. Right foot is in bandage. NEUROLOGICAL: Awake and alert. Moves all extremity. Normal speech.no focal neurological deficit Procedures 03/10/2017 - Dr. Bullock exploration, wash, excisional debridement extensor tenosynovium right wrist/forearm/hand 03/08/17 - Dr. Bullock- exploration, wash, excisional debridement skin, subcutaneous tissue, extensor tenosynovitis right wrist and hand. Findings: necrotic tissue, minimal purulence, extensor tenosynovitis right wrist/hand 03/04/17 - Dr Gamez - Right leg and incision and drainage. Right foot delayed primary closure x3 03/04/17 - Dr. Bullock - Extensor tenosynovectomy second, third, fourth extensor compartments right wrist and excisional debridement wash index finger metacarpal phalangeal joint, excisional wash and excisional debridement left hand. 02/28/17 - Dr. Reyes - Right ankle wound debridement and washout. Implantation of antibiotic vancomycin beads. 02/28/17 - Dr. Bullock - Exploration, wash, excisional debridement index finger metacarpophalangeal joint right hand; Exploration, wash, excisional debridement metacarpophalangeal joint left index finger; Exploration, wash, excisional debridement extensor pollicis longus tendon right thumb and hand. 02/26/17 - Dr. Reyes - Right ankle incision and drainage, arthrotomy, removal infected hardware, bone biopsy. 02/26/17 - Dr. Bullock - Exploration, incision and drainage right hand abscess, Arthrotomy wash metacarpal phalangeal joint right index finger, Arthrotomy wash metacarpal phalangeal joint left index finger. A/P Problem List: (1) Sepsis ICD Code: A41.9 - Sepsis, unspecified organism Status: Acute (2) Right foot infection ICD Code: L08.9 - Local infection of the skin and subcutaneous tissue, unspecified Status: Acute (3) Encephalopathy ICD Code: G93.40 - Encephalopathy, unspecified Status: Acute (4) Alcoholism ICD Code: F10.20 - Alcohol dependence, uncomplicated Status: Acute Assessment and Plan 61-year-old male admitted secondary to numerous infections including bilateral hands and right ankle. Previous history of right ankle. Patient also had encephalopathy secondary to infection and alcohol withdrawal time of admit. Encephalopathy has improved. Continued treatments of infections are ongoing. Status post I&D of right elbow yesterday. Continue wound care. Robaxin started for muscle spasms. 03/20: Continue current care, check CBC in a.m. BMP, monitor for fever 03/21: Continue current care, monitor vitals, CPS following 03/22: CVS consulted by podiatry due to persistent infection in the proximal ankle, repeat BMP in a.m. 03/23: Still complaining of pain, monitor for fever or signs of worsening infection, CVS following, CBC in a.m. Sepsis Resolved MRSA Bacteremia Septic Joints (MRSA) Continue rifampin and dapto Plan for long-term IV antibiotics, rifampin for 6 weeks Likely will need residential facility placement Continue oxycodone and Dilaudid for pain May still need further surgical intervention Hand surgeon following Podiatry following ID following Multiple surgeries thus far: - podiatry Dr. Reyes/Dr. Gamez on 02/26, 02/28, 03/04 - hand surgeon Dr. Bullock on 02/26, 02/28, 03/04, 03/08, 03/10 Anemia Most recent hemoglobin is 8.0 Follow CBC May need repeat transfusion if the trend is downward Last transfusion was one unit on 03/12/17 Continued present diet Acute Toxic/Metabolic Encephalopathy secondary to Sepsis Acute Alcohol Withdrawal Resolved Hypernatremia Resolved Hypokalemia Replace as needed Continue to monitor Hypertension Continue clonidine and Coreg Follow blood pressures Adjust as needed for control Mild Systolic CHF EF of 40-45% with global hypokinesis found on 02/28/17 Medical management to continue Continue beta amarjit Continue lisinopril THADDEUS Monitor renal function Avoid nephrotoxins Previous event was likely secondary to ATN Nephrology following Urinary retention Monitor urine output Hepatitis C Standard precautions DVT Prophylaxis Lovenox Problem Qualifiers (1) Sepsis: Kg Zaragoza MD Mar 23, 2017 12:14
--- NOTE | 2017-03-23 13:54 | PD.CARD.PN ---
Subjective Subjective Remarks No CP or SOB, c/o back pain Objective Medications Current Medications Medications (Trade) Dose Ordered Sig/Kayla Route Start Time Stop Time Status Last Admin (NS Flush) 2 ml UNSCH PRN IV FLUSH 02/24/17 13:45 02/24/17 13:38 (Zofran Inj) 4 mg Q8HR PRN IV PUSH 02/24/17 18:00 (Vitamin B1) 100 mg DAILY PO 02/25/17 09:00 03/23/17 08:41 (Romazicon Inj) 0.2 mg Q1M PRN IV PUSH 02/25/17 09:15 (Ativan) 1 mg Q4H PRN PO 02/25/17 09:15 03/20/17 03:18 (Ativan Inj) 1 mg Q4H PRN IV PUSH 02/25/17 09:15 03/05/17 02:41 (Theragran) 1 tab DAILY PO 02/26/17 09:00 03/23/17 08:42 (Ofirmev Inj) 650 mg Q6H PRN IV 02/25/17 21:00 03/06/17 20:12 (Trandate Inj) 10 mg Q6H PRN IV PUSH 02/25/17 23:15 (Protonix Inj) 40 mg Q24H IV PUSH 02/26/17 00:00 03/23/17 00:59 Miscellaneous Information Patient in critical care unit? Ass... [id number] .XX 02/26/17 07:15 (Bactroban Nasal 2% Oint) 1 applic BID NASAL 02/26/17 09:00 03/23/17 08:42 (Catapres) 0.3 mg Q8HR PO 02/26/17 22:11 03/23/17 05:30 (Roxicodone) 5 mg Q4H PRN PO 02/28/17 07:45 03/23/17 12:06 (Dilaudid Pf Inj) 0.5 mg Q3H PRN IV PUSH 02/28/17 07:45 03/18/17 10:06 (Rifampin) 300 mg Q12HR PO 03/02/17 21:00 03/23/17 08:42 (Coreg) 6.25 mg Q12HR PO 03/03/17 21:00 03/23/17 08:42 Daptomycin 550 mg/ Sodium Chloride 100 ml @ 200 mls/hr Q24H IV 03/06/17 12:00 03/23/17 12:04 (Dulcolax Supp) 10 mg DAILY PRN RECTAL 03/06/17 21:00 (Lactulose Liq) 30 ml DAILY PRN NG 03/06/17 21:00 03/07/17 18:45 (Colace Liq) 100 mg Q12HR PO 03/06/17 21:15 Future Hold 03/09/17 09:30 (Prinivil) 2.5 mg DAILY PO 03/09/17 09:00 03/23/17 08:42 (Pill Splitter) 1 ea UNSCH PRN OTHER 03/08/17 21:15 (Lovenox Inj) 40 mg Q24H SQ 03/10/17 13:00 Future hold 03/23/17 12:04 Potassium Chloride/Sodium Chloride 1,000 ml @ 75 mls/hr [id number] IV 03/13/17 11:30 03/23/17 12:03 (Robaxin) 500 mg Q8HR PO 03/19/17 14:00 03/23/17 05:30 Vital Signs / I&O Vital Signs Date Time Temp Pulse Resp B/P (MAP) Pulse Ox O2 Delivery O2 Flow Rate FiO2 03/23/17 12:00 98.6 72 20 136/70 (92) 96 03/23/17 08:02 98.9 74 18 135/75 (95) 94 03/23/17 08:00 Room Air 03/23/17 04:00 98.7 72 18 135/67 (89) 94 03/23/17 00:00 97.8 69 16 122/57 (78) 98 03/22/17 23:47 Nasal Cannula 2.00 03/22/17 20:00 98.5 71 18 134/65 (88) 98 03/22/17 18:20 Nasal Cannula 1.00 21 03/22/17 16:00 99.6 77 20 154/73 (100) 100 I/O 03/22/17 03/22/17 03/22/17 03/23/17 03/23/17 03/23/17 06:59 14:59 22:59 06:59 14:59 22:59 Intake Total 455 ml 480 ml 900 ml 240 ml Output Total 1300 ml 1375 ml 1650 ml Balance -845 ml -895 ml 900 ml -1410 ml Intake Oral 240 ml 480 ml 240 ml IV Total 215 ml 360 ml Tube Feeding 300 ml Lipid 240 ml Output Urine Total 1300 ml 1375 ml 1650 ml # Bowel Movements 1 0 Physical Exam GENERAL: In NAD SKIN: Warm and dry. HEAD: Normocephalic. EYES: No scleral icterus. No injection or drainage. NECK: Supple, trachea midline. No JVD or lymphadenopathy. CARDIOVASCULAR: Regular rate and rhythm without murmurs, gallops, or rubs. RESPIRATORY: Breath sounds equal bilaterally. No accessory muscle use. GASTROINTESTINAL: Abdomen soft, non-tender, nondistended. MUSCULOSKELETAL: No cyanosis, or edema. Laboratory Laboratory Tests Test 03/23/17 09:00 Blood Urea Nitrogen 25 MG/DL Creatinine 1.08 MG/DL Random Glucose 120 MG/DL Calcium Level 7.7 MG/DL Sodium Level 135 MEQ/L Potassium Level 4.1 MEQ/L Chloride Level 102 MEQ/L Carbon Dioxide Level 25.1 MEQ/L Anion Gap 8 MEQ/L Estimat Glomerular Filtration Rate 69 ML/MIN Imaging Last Impressions Tumor Localization 03/22/17 0000 Signed Impressions: Service Date/Time: Wednesday, March 22, 2017 13:03 - CONCLUSION: Nondiagnostic examination secondary to patient refusal Harry Lucio MD Abdomen X-Ray 03/08/17 0000 Signed Impressions: Service Date/Time: Wednesday, March 08, 2017 10:30 - CONCLUSION: Nonspecific, negative for obstruction or ileus. Isaac Stevenson MD FACR Chest X-Ray 03/02/17 0000 Signed Impressions: Service Date/Time: Thursday, March 02, 2017 13:26 - CONCLUSION: Interval develop of a small left-sided pleural effusion. Pulmonary venous congestion. Edenilson Oviedo MD Lower Extremity CT 03/01/17 0000 Signed Impressions: Service Date/Time: Wednesday, March 01, 2017 11:12 - CONCLUSION: 1. No evidence of organized fluid collections to suggest an abscess. 2. Extensive soft tissue swelling surrounding the ankle and extending to the forefoot especially along the lateral aspect. 3. No erosive or destructive bone changes. 4. Bone defects compatible with previous excision device. Blake Rider MD Ankle X-Ray 02/26/17 0000 Signed Impressions: Service Date/Time: Sunday, February 26, 2017 17:15 - CONCLUSION: I see no retained surgical instruments. Isaac Stevenson MD FACR Upper Extremity Ultrasound 02/25/17 1734 Signed Impressions: Service Date/Time: February 17:54 - CONCLUSION: There is a thin fluid collection within the focal area of soft tissue swelling 2nd digit. Oscar Cassidy MD Hand X-Ray 02/25/17 0000 Signed Impressions: Service Date/Time: February 18:59 - CONCLUSION: No gross bony abnormality. Oscar Cassidy MD Lower Extremity Ultrasound 02/24/17 0000 Signed Impressions: Service Date/Time: Friday, February 24, 2017 13:41 - CONCLUSION: Negative for deep venous thrombosis. Isaac Stevenson MD FACR Head CT 02/24/17 0000 Signed Impressions: Service Date/Time: Friday, February 24, 2017 16:08 - CONCLUSION: 1. No acute intracranial abnormality. 2. Probable large mucocele in the sphenoid sinus. Ty Hankins MD Abdomen/Pelvis CT 02/24/17 0000 Signed Impressions: Service Date/Time: Friday, February 24, 2017 16:16 - CONCLUSION: 1. Marked gaseous distension of large and small bowel most suggestive of ileus. 2. There is no free air. 3. 2.2 cm left adrenal mass. 4. Distended bladder. Isaac Stevenson MD FACR Assessment and Plan Problem List: (1) CHF (congestive heart failure) ICD Codes: I50.9 - Heart failure, unspecified Status: Acute (2) Cardiomyopathy ICD Codes: I42.9 - Cardiomyopathy, unspecified Status: Acute (3) ARF (acute renal failure) ICD Codes: N17.9 - Acute kidney failure, unspecified Status: Acute (4) Alcoholism ICD Codes: F10.20 - Alcohol dependence, uncomplicated Status: Acute (5) Tobacco use disorder ICD Codes: Z72.0 - Tobacco use Status: Acute (6) Sepsis ICD Codes: A41.9 - Sepsis, unspecified organism Status: Acute Assessment and Plan Echo today. Remains stable from cardiac standpoint. Continue current management for cardiomyopathy and CHF including carvedilol and lisinopril. Increase activity, PT. Problem Qualifiers (1) Sepsis: Raquel Escobar MD Mar 23, 2017 13:54
--- NOTE | 2017-03-23 14:41 | PD.CAR.PN ---
CVT Progress Note Subjective/Hospital Course: Referral received Full consult VERONICA Lee Martinez 03/24/17 Discussed care with the patient today As noted in the consultation this patient has no chance of recovering without amputation and infection and systemic symptoms will persist. Patient is unable to use the leg which keeps him bedridden and dysfunctional. Patient will discussed the care with his father today and he is tentatively planned for surgery tomorrow Objective: Vital Signs Date Time Temp Pulse Resp B/P (MAP) Pulse Ox O2 Delivery O2 Flow Rate FiO2 03/23/17 12:00 98.6 72 20 136/70 (92) 96 03/23/17 08:02 98.9 74 18 135/75 (95) 94 03/23/17 08:00 Room Air 03/23/17 04:00 98.7 72 18 135/67 (89) 94 03/23/17 00:00 97.8 69 16 122/57 (78) 98 03/22/17 23:47 Nasal Cannula 2.00 03/22/17 20:00 98.5 71 18 134/65 (88) 98 03/22/17 18:20 Nasal Cannula 1.00 21 03/22/17 16:00 99.6 77 20 154/73 (100) 100 Labs: Laboratory Tests Test 03/23/17 09:00 Blood Urea Nitrogen 25 MG/DL (7-18) Creatinine 1.08 MG/DL (0.60-1.30) Random Glucose 120 MG/DL (74-106) Calcium Level 7.7 MG/DL (8.5-10.1) Sodium Level 135 MEQ/L (136-145) Potassium Level 4.1 MEQ/L (3.5-5.1) Chloride Level 102 MEQ/L (98-107) Carbon Dioxide Level 25.1 MEQ/L (21.0-32.0) Anion Gap 8 MEQ/L (5-15) Estimat Glomerular Filtration Rate 69 ML/MIN (>89) Result Diagram: 03/20/17 0547 03/23/17 0900 (1) CHF (congestive heart failure) (2) Cardiomyopathy (3) ARF (acute renal failure) (4) Alcoholism (5) Tobacco use disorder (6) Sepsis Problem Qualifiers (1) Sepsis: Nazario Ruth MD Mar 23, 2017 14:41
--- NOTE | 2017-03-23 15:05 | ECHRPT ---
Indication: EF assesment of CHF CONCLUSIONS The left ventricular systolic function is moderately reduced with an estimated ejection fraction in the range of 40-45%. Wall thickness is measured at the upper limits of normal. Normal left ventricular size. BP: 135 / 67 HR: 89 Rhythm: Other MEASUREMENTS (Male / Female) Normal Values Technical Quality:Good 2D ECHO LV Diastolic Diameter PLAX 6.0 cm 4.2 - 5.9 / 3.9 - 5.3 cm LV Systolic Diameter PLAX 5.0 cm IVS Diastolic Thickness 1.1 cm 0.6 - 1.0 / 0.6 - 0.9 cm LVPW Diastolic Thickness 1.1 cm 0.6 - 1.0 / 0.6 - 0.9 cm LV Relative Wall Thickness 0.4 LV Ejection Fraction MOD BP 40.5 % >= 55 % LV Cardiac Index MOD BP 3036.3 cm/minm LV Ejection Fraction MOD 4C 38.1 % LV Cardiac Index MOD 4C 2742.5 cm/minm LV Ejection Fraction 4C AL 36.1 % LV Cardiac Index 4C AL 2622.5 cm/minm LV Ejection Fraction MOD 2C 36.8 % LV Cardiac Index MOD 2C 2595.6 cm/minm LV Ejection Fraction 2C AL 37.9 % LV Cardiac Index 2C AL 2704.1 cm/minm FINDINGS LEFT VENTRICLE The left ventricular systolic function is moderately reduced with an estimated ejection fraction in the range of 40-45%. Wall thickness is measured at the upper limits of normal. Normal left ventricular size. RIGHT VENTRICLE Normal right ventricular size and systolic function. LEFT ATRIUM The left atrial size is normal. RIGHT ATRIUM The right atrial size is normal. ATRIAL SEPTUM Normal atrial septal thickness without atrial level shunting by limited color doppler interrogation. AORTA The aortic root and proximal ascending aorta are normal in size on limited imaging. MITRAL VALVE Structurally normal mitral valve. No mitral valve stenosis or regurgitation. AORTIC VALVE Trileaflet aortic valve. No aortic valve stenosis or regurgitation. TRICUSPID VALVE Structurally normal tricuspid valve. No tricuspid valve stenosis or regurgitation. PULMONARY VALVE The pulmonary valve is not well visualized. VESSELS The inferior vena cava is normal in size. PERICARDIUM A left sided pleural effusion is present. No pericardial effusion. Mike Gamez MD (Electronically Signed) Final Date:23 March 2017 15:04
--- NOTE | 2017-03-23 15:25 | HHI.IDPN ---
Subjective Subjective Remarks is a 61 y/o CM with PMHx of right foot hardware, hypertension, alcoholism, Hepatitis C who was admitted with sepsis, acute metabolic encephalopathy ? DTs. Removal of hardware from r. ankle 02/27. Noted to have a pocket of pus adjacent to and in contact with the hardware. Could not remove all of the wires per podiatry. Embedded in deep tissue. Culture form both index fingers has MRSA. R ankle culture - and distal fibula 02/26, 02/28 MRSA. Blood culture 02/24, 02/25, 02/27 - MRSA. 2D ECHO - No vegetations noted. Overnight events reviewed. s/b plan for Right BKA in am as non healing wound despite optimal antibiotic Mment. Has retained hardware wires that may be contributing. No fever No rash No diarrhea Antibiotics Dapto IV Rifampin oral. Lines Line sites with no e.o infection Past Medical History hypertension alcoholism Hepatitis C right foot surgery with hardware in place. Allergies: Coded Allergies: ciprofloxacin (Unverified Adverse Reaction, Intermediate, Dizziness, ) *MDRO Multi-Drug Resistant Organism (Verified Adverse Reaction, Unknown, ) MRSA (blood)+(urine) 02/24/17, (blood) 02/25/17, 02/27/17 (finger,ankle,leg) 02/26/17, 02/28/17 MRSA PCR screen positive 02/25/17 Objective . Vital Signs Date Time Temp Pulse Resp B/P (MAP) Pulse Ox O2 Delivery O2 Flow Rate FiO2 03/23/17 12:00 98.6 72 20 136/70 (92) 96 03/23/17 08:02 98.9 74 18 135/75 (95) 94 03/23/17 08:00 Room Air 03/23/17 04:00 98.7 72 18 135/67 (89) 94 03/23/17 00:00 97.8 69 16 122/57 (78) 98 03/22/17 23:47 Nasal Cannula 2.00 03/22/17 20:00 98.5 71 18 134/65 (88) 98 03/22/17 18:20 Nasal Cannula 1.00 21 03/22/17 16:00 99.6 77 20 154/73 (100) 100 . Laboratory Tests Test 03/23/17 09:00 Blood Urea Nitrogen 25 MG/DL Creatinine 1.08 MG/DL Random Glucose 120 MG/DL Calcium Level 7.7 MG/DL Sodium Level 135 MEQ/L Potassium Level 4.1 MEQ/L Chloride Level 102 MEQ/L Carbon Dioxide Level 25.1 MEQ/L Anion Gap 8 MEQ/L Estimat Glomerular Filtration Rate 69 ML/MIN Imaging Last Impressions Chest X-Ray 03/02/17 0000 Signed Impressions: Service Date/Time: Thursday, March 02, 2017 13:26 - CONCLUSION: Interval develop of a small left-sided pleural effusion. Pulmonary venous congestion. Edenilson Oviedo MD Lower Extremity CT 03/01/17 0000 Signed Impressions: Service Date/Time: Wednesday, March 01, 2017 11:12 - CONCLUSION: 1. No evidence of organized fluid collections to suggest an abscess. 2. Extensive soft tissue swelling surrounding the ankle and extending to the forefoot especially along the lateral aspect. 3. No erosive or destructive bone changes. 4. Bone defects compatible with previous excision device. Blake Rider MD Ankle X-Ray 02/26/17 0000 Signed Impressions: Service Date/Time: Sunday, February 26, 2017 17:15 - CONCLUSION: I see no retained surgical instruments. Isaac Stevenson MD FACR Abdomen X-Ray 02/26/17 Signed Impressions: Service Date/Time: Monday, February 27, 2017 00:36 - CONCLUSION: Nasogastric tube within the stomach Harry Lucio MD Upper Extremity Ultrasound 02/25/17 1734 Signed Impressions: Service Date/Time: February 17:54 - CONCLUSION: There is a thin fluid collection within the focal area of soft tissue swelling 2nd digit. Oscar Cassidy MD Hand X-Ray 02/25/17 0000 Signed Impressions: Service Date/Time: February 18:59 - CONCLUSION: No gross bony abnormality. Oscar Cassidy MD Lower Extremity Ultrasound 02/24/17 Signed Impressions: Service Date/Time: Friday, February 24, 2017 13:41 - CONCLUSION: Negative for deep venous thrombosis. Isaac Stevenson MD FACR Head CT 02/24/17 0000 Signed Impressions: Service Date/Time: Friday, February 24, 2017 16:08 - CONCLUSION: 1. No acute intracranial abnormality. 2. Probable large mucocele in the sphenoid sinus. Ty Hankins MD Abdomen/Pelvis CT 02/24/17 0000 Signed Impressions: Service Date/Time: Friday, February 24, 2017 16:16 - CONCLUSION: 1. Marked gaseous distension of large and small bowel most suggestive of ileus. 2. There is no free air. 3. 2.2 cm left adrenal mass. 4. Distended bladder. Isaac Stevenson MD FACR Physical Exam GENERAL: This is a well-nourished, well-developed patient, in no apparent distress. SKIN: No rashes, ecchymoses or lesions. Cool and dry. HEAD: Atraumatic. Normocephalic. No temporal or scalp tenderness. EYES: Pupils equal round and reactive. Extraocular motions intact. No scleral icterus. No injection or drainage. ENT: Nose without bleeding, purulent drainage or septal hematoma. Throat without erythema, tonsillar hypertrophy or exudate. Uvula midline. Airway patent. NECK: Trachea midline. Supple, nontender, no meningeal signs. CARDIOVASCULAR: Regular rate and rhythm without murmurs, gallops, or rubs. RESPIRATORY: Clear to auscultation. Breath sounds equal bilaterally. No wheezes , rales, or rhonchi. GASTROINTESTINAL: Abdomen soft, non-tender, nondistended. MUSCULOSKELETAL: Rt foot dressing opened and noted sutures dehisced and active discharge noted, with swelling and warmth and fluctuance noted. Bilateral UE with dressings noted. NEUROLOGICAL: Awake, grossly non focal. 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 distant showering of emboli to other joints. MRSA bacteremia Right ankle hardware infection, s/p partial removal of hardware. Deeper hardware embedded. Bilateral UE hand abscess and tenosynovitis, septic arthritis s.p multiple debridements. Acute renal failure: ? vanco induced. Improving. hypertension alcoholism Hepatitis C Recs Continue Dapto IV (ASP: ? Vanco induced renal failure). d/w Clinical pharmacist to dose at 8 mg/kg IV q48hrs. DC Rifampin oral patient undergoing BKA and hardware wont be an issue. Check CBC with diff, Cr, LFTs and CRP every week. To be ordered and followed by hospitalist. Follow cultures Follow clinically. d/w and about [facility] policy. Case management note: Will need IV antibiotics for 6 weeks for endocarditis. Consider SNF placement as patient has alcoholism history and may not be compliant with medications/antibiotics. Sunshine Keene MD Mar 23, 2017 15:25
[2017-03-23 16:00] VITALS: BP 143/82; PULSE 79; RESP 18; TEMP 98.3; O2SAT 97
--- NOTE | 2017-03-23 16:41 | HHI.NPPN ---
Subjective History of Present Illness 61 year old male with past medical history of hypertension, history of being homeless. He was admitted on February 25 with altered mental status and leukocytosis. I was called to see the patient because of elevated BUN and creatinine. Additional Remarks Patient is clinically same, has mild pain, no SOB. Objective Data Data Vital Signs Date Time Temp Pulse Resp B/P (MAP) Pulse Ox O2 Delivery O2 Flow Rate FiO2 03/23/17 16:00 98.3 79 18 143/82 (102) 97 03/23/17 12:00 98.6 72 20 136/70 (92) 96 03/23/17 08:02 98.9 74 18 135/75 (95) 94 03/23/17 08:00 Room Air 03/23/17 04:00 98.7 72 18 135/67 (89) 94 03/23/17 00:00 97.8 69 16 122/57 (78) 98 03/22/17 23:47 Nasal Cannula 2.00 03/22/17 20:00 98.5 71 18 134/65 (88) 98 03/22/17 18:20 Nasal Cannula 1.00 21 -: 03/20/17 0547 03/23/17 0900 Physical Exam General Appearance: No Acute Distress, Anxious Eyes Eye Exam: Pupils Equal Throat Throat Exam: Oral Mucosa [place] & Moist Neck Neck Exam: Neck Supple Pulmonary Resp Exam: Breath Sounds Equal, No Distress, Rhonchi, Decreased Bases Cardiology CV Exam: Regular, Normal Sinus Rhythm Gastrointestinal/Abdomen GI Exam: Soft, Non-Tender, Bowel Sounds Present Extremeties Extremities Exam: Trace Edema Neurologic Neuro Exam: Alert, Awake Assessment/Plan Assessment Summary: THADDEUS/Acute Renal Failure Problem List: (1) Encephalopathy ICD Codes: G93.40 - Encephalopathy, unspecified Status: Acute (2) Essential hypertension ICD Codes: I10 - Essential (primary) hypertension Status: Acute (3) Hepatitis C, chronic ICD Codes: B18.2 - Chronic viral hepatitis C Status: Acute (4) Abscess of right hand including fingers ICD Codes: L02.511 - Cutaneous abscess of right hand Status: Acute (5) Abscess of left hand including fingers ICD Codes: L02.512 - Cutaneous abscess of left hand Status: Acute (6) Alcoholism ICD Codes: F10.20 - Alcohol dependence, uncomplicated Status: Acute (7) CHF (congestive heart failure) ICD Codes: I50.9 - Heart failure, unspecified Status: Acute (8) Sepsis ICD Codes: A41.9 - Sepsis, unspecified organism Status: Acute (9) ARF (acute renal failure) ICD Codes: N17.9 - Acute kidney failure, unspecified Status: Acute Plan Patient has been non oliguric. Urine Eosinophils negative. Urine Na. is normal. Most likely had ATN. Briseno's catheter was inserted as has high Bladder residual. Creatinine improve, I will sign off from. Problem Qualifiers (1) Sepsis: Diane Barker MD Mar 23, 2017 16:41
[2017-03-23 20:00] VITALS: BP 129/66; PULSE 73; RESP 17; TEMP 99.9; O2SAT 93
[2017-03-24] VITALS: BP 144/70; PULSE 74; RESP 19; TEMP 99.1; O2SAT 93
[2017-03-24 04:00] VITALS: BP 148/76; PULSE 90; RESP 17; TEMP 99.8; O2SAT 93
[2017-03-24] MEDS: cloNIDine HCL 0.3 MG TAB PO SCH ×3 (05:21→21:30)
[2017-03-24] MEDS: METHOCARBAMOL 500 MG TAB PO SCH ×3 (05:21→21:30)
--- NOTE | 2017-03-24 07:04 | PD.POD ---
Subjective Podiatric Problems s/p I&D with removal of hardware and antibiotic beads R ankle 02/28 Ramdath s/p I&D R ankle 03/04 Franco Past Med/Surg/Social History Past Surgical History Gastrointestinal: DENIES HX OF: Colectomy, total Social History Smoking Status: Current Every Day Smoker Objective Vital Signs Vital Signs Date Time Temp Pulse Resp B/P (MAP) Pulse Ox O2 Delivery O2 Flow Rate FiO2 03/24/17 06:44 20 03/24/17 04:00 99.8 90 17 148/76 (100) 93 03/24/17 00:00 99.1 74 19 144/70 (94) 93 03/23/17 21:10 Room Air 03/23/17 20:00 99.9 73 17 129/66 (87) 93 03/23/17 16:00 98.3 79 18 143/82 (102) 97 03/23/17 12:00 98.6 72 20 136/70 (92) 96 03/23/17 08:02 98.9 74 18 135/75 (95) 94 03/23/17 08:00 Room Air Coded Allergies: ciprofloxacin (Unverified Adverse Reaction, Intermediate, Dizziness, ) *MDRO Multi-Drug Resistant Organism (Verified Adverse Reaction, Unknown, ) MRSA (blood)+(urine) 02/24/17, (blood) 02/25/17, 02/27/17 (finger,ankle,leg) 02/26/17, 02/28/17 MRSA PCR screen positive 02/25/17 Assessment & Plan A/P s/p I&D with removal of hardware and antibiotic beads R ankle 02/28 Ramdath s/p I&D R ankle 03/04 Gamez It is my opinion patient would benefit from BKA R lower extremity due to severity of infection and lack of progress with two previous surgical interventions. Agree to proceed today with Dr Ruth for surgery Paulo Norman DPM Mar 24, 2017 07:04
[2017-03-24 08:08] LABS: AUTOMATED NEUTROPHIL # 8.7 TH/MM3 (1.8-7.7); BASOPHIL # 0.1 TH/MM3 (0-0.2); BASOPHIL % 0.4 % (0.0-2.0); EOSINOPHIL % 0.4 % (0.0-4.0); HEMATOCRIT 24.9 % (39.0-51.0); HEMO FLAGS DIFF FINAL; LYMPH % 13.9 % (9.0-44.0); LYMPHOCYTE # 1.6 TH/MM3 (1.0-4.8); MEAN CELL VOLUME 85.4 FL (80.0-100.0); MEAN CORPUSCULAR HEMOGLOBIN 27.8 PG (27.0-34.0); MEAN CORPUSCULAR HGB CONC 32.5 % (32.0-36.0); MONO % 11.4 % (0.0-8.0); NEUT % 73.9 % (16.0-70.0); PLATELET COUNT 212 TH/MM3 (150-450); RED BLOOD COUNT 2.92 MIL/MM3 (4.50-5.90); RED CELL DISTRIBUTION WIDTH 16.8 % (11.6-17.2); WHITE BLOOD COUNT 11.8 TH/MM3 (4.0-11.0)
[2017-03-24 08:13] VITALS: BP 136/67; PULSE 85; RESP 18; TEMP 99.7; O2SAT 93
[2017-03-24] MEDS: MUPIROCIN 2% OINT 1 APPLIC/GM SYR NASAL SCH ×2 (08:34→21:30)
[2017-03-24] MEDS: LISINOPRIL 5 MG TAB PO SCH (08:35)
[2017-03-24] MEDS: MULTIVITAMIN TAB PO SCH (08:35)
[2017-03-24] MEDS: CARVEDILOL 6.25 MG TAB PO SCH ×2 (08:35→21:29)
[2017-03-24] MEDS: THIAMINE HCL 100 MG TAB PO SCH (08:35)
[2017-03-24] MEDS ORDERED: ACETAMINOPHEN 1000 MG/100 ML 100 ML IV ONE (09:21)
[2017-03-24] MEDS ORDERED: MIDAZOLAM HCL 2 MG/2 ML VIAL ONE (09:21)
[2017-03-24] MEDS ORDERED: PROPOFOL 200 MG/20 ML AMP IV ONE (12:00)
[2017-03-24] MEDS ORDERED: PHENYLEPH/NS 1000 MCG/10 ML SYR IV ONE (12:00)
[2017-03-24] MEDS: DAPTOMYCIN IV SCH (12:26)
[2017-03-24] MEDS: SODIUM CHLORIDE 0.9% IV SCH (12:26)
[2017-03-24] MEDS: ENOXAPARIN SODIUM 40 MG/0.4 ML SYRINGE SQ SCH (13:00)
--- NOTE | 2017-03-24 13:58 | HHI.PR ---
Subjective Remarks Patient stable get going for BKA later today No acute fever chest pain or short of breath I discussed with and yesterday regarding amputation Objective Vitals Vital Signs Date Time Temp Pulse Resp B/P (MAP) Pulse Ox O2 Delivery O2 Flow Rate FiO2 03/24/17 12:00 95 03/24/17 08:13 99.7 85 18 136/67 (90) 93 03/24/17 08:00 Room Air 03/24/17 06:44 20 03/24/17 04:00 99.8 90 17 148/76 (100) 93 03/24/17 00:00 99.1 74 19 144/70 (94) 93 03/23/17 21:10 Room Air 03/23/17 20:00 99.9 73 17 129/66 (87) 93 03/23/17 16:00 98.3 79 18 143/82 (102) 97 I/O 03/23/17 03/23/17 03/23/17 03/24/17 03/24/17 03/24/17 06:59 14:59 22:59 06:59 14:59 22:59 Intake Total 240 ml 100 ml 1709 ml 757 ml Output Total 1650 ml 1900 ml 2100 ml 725 ml Balance -1410 ml 100 ml -191 ml -1343 ml -725 ml Intake Oral 240 ml 400 ml IV Total 100 ml 1709 ml 357 ml Output Urine Total 1650 ml 1900 ml 2100 ml 725 ml # Bowel Movements 0 0 0 Result Diagram: 03/24/17 0728 03/23/17 0900 Objective Remarks GENERAL: This is a well-nourished, well-developed patient, in no apparent distress. SKIN: No rashes, warm and dry HEAD: Atraumatic. Normocephalic. EYES: Pupils equal round and reactive. Extraocular motions intact. No scleral icterus. ENT: Nose without bleeding, or drainage, Airway patent. NECK: Trachea midline. Supple CARDIOVASCULAR: Regular rate and rhythm without murmurs, gallops, or rubs. RESPIRATORY: Fair air entry bilaterally. No wheezes, rales, or rhonchi. GASTROINTESTINAL: Abdomen soft, non-tender, nondistended. Positive bowel sounds MUSCULOSKELETAL:No cyanosis, or edema. Right and left arms are bandaged home right arm in lifting sling. Right foot is in bandage. NEUROLOGICAL: Awake and alert. Moves all extremity. Normal speech.no focal neurological deficit Procedures 03/10/2017 - Dr. Bullock exploration, wash, excisional debridement extensor tenosynovium right wrist/forearm/hand 03/08/17 - Dr. Bullock- exploration, wash, excisional debridement skin, subcutaneous tissue, extensor tenosynovitis right wrist and hand. Findings: necrotic tissue, minimal purulence, extensor tenosynovitis right wrist/hand 03/04/17 - Dr Gamez - Right leg and incision and drainage. Right foot delayed primary closure x3 03/04/17 - Dr. Bullock - Extensor tenosynovectomy second, third, fourth extensor compartments right wrist and excisional debridement wash index finger metacarpal phalangeal joint, excisional wash and excisional debridement left hand. 02/28/17 - Dr. Reyes - Right ankle wound debridement and washout. Implantation of antibiotic vancomycin beads. 02/28/17 - Dr. Bullock - Exploration, wash, excisional debridement index finger metacarpophalangeal joint right hand; Exploration, wash, excisional debridement metacarpophalangeal joint left index finger; Exploration, wash, excisional debridement extensor pollicis longus tendon right thumb and hand. 02/26/17 - Dr. Reyes - Right ankle incision and drainage, arthrotomy, removal infected hardware, bone biopsy. 02/26/17 - Dr. Bullock - Exploration, incision and drainage right hand abscess, Arthrotomy wash metacarpal phalangeal joint right index finger, Arthrotomy wash metacarpal phalangeal joint left index finger. A/P Problem List: (1) Sepsis ICD Code: A41.9 - Sepsis, unspecified organism Status: Acute (2) Right foot infection ICD Code: L08.9 - Local infection of the skin and subcutaneous tissue, unspecified Status: Acute (3) Encephalopathy ICD Code: G93.40 - Encephalopathy, unspecified Status: Acute (4) Alcoholism ICD Code: F10.20 - Alcohol dependence, uncomplicated Status: Acute Assessment and Plan 61-year-old male admitted secondary to numerous infections including bilateral hands and right ankle. Previous history of right ankle. Patient also had encephalopathy secondary to infection and alcohol withdrawal time of admit. Encephalopathy has improved. Continued treatments of infections are ongoing. Status post I&D of right elbow yesterday. Continue wound care. Robaxin started for muscle spasms. 03/20: Continue current care, check CBC in a.m. BMP, monitor for fever 03/21: Continue current care, monitor vitals, CPS following 03/22: CVS consulted by podiatry due to persistent infection in the proximal ankle, repeat BMP in a.m. 03/23: Still complaining of pain, monitor for fever or signs of worsening infection, CVS following, CBC in a.m. 03/24: No acute issue going for BKA today, will monitor postop Sepsis Resolved MRSA Bacteremia Septic Joints (MRSA) Continue rifampin and dapto Plan for long-term IV antibiotics, rifampin for 6 weeks Likely will need detention facility placement Continue oxycodone and Dilaudid for pain May still need further surgical intervention Hand surgeon following Podiatry following ID following Multiple surgeries thus far: - podiatry Dr. Reyes/Dr. Gamez on 02/26, 02/28, 03/04 - hand surgeon Dr. Bullock on 02/26, 02/28, 03/04, 03/08, 03/10 Anemia Most recent hemoglobin is 8.0 Follow CBC May need repeat transfusion if the trend is downward Last transfusion was one unit on 03/12/17 Continued present diet Acute Toxic/Metabolic Encephalopathy secondary to Sepsis Acute Alcohol Withdrawal Resolved Hypernatremia Resolved Hypokalemia Replace as needed Continue to monitor Hypertension Continue clonidine and Coreg Follow blood pressures Adjust as needed for control Mild Systolic CHF EF of 40-45% with global hypokinesis found on 02/28/17 Medical management to continue Continue beta amarjit Continue lisinopril THADDEUS Monitor renal function Avoid nephrotoxins Previous event was likely secondary to ATN Nephrology following Urinary retention Monitor urine output Hepatitis C Standard precautions DVT Prophylaxis Lovenox Problem Qualifiers (1) Sepsis: Kg Zaragoza MD Mar 24, 2017 13:58
[2017-03-24] MEDS ORDERED: DO NOT ADM ANY ANTICOAGULANT DRUGS PRN (14:52)
[2017-03-24] MEDS ORDERED: *HYDROmorphone PF 1 MG VIAL PERIprocedural Use ONLY ONE (14:53)
[2017-03-24] MEDS ORDERED: *MEPERIDINE 25 MG INJ VIAL PERIprocedural Use ONLY ONE (15:01)
[2017-03-24] MEDS: HYDROmorphone HCL PF 1 MG/ML VIAL IV PUSH PRN ×3 (15:43→23:58)
[2017-03-24] MEDS: NS + KCL 20 MEQ INJ 1,000 ML IV SCH (15:58)
[2017-03-24] MEDS ORDERED: POLYETHYLENE GLYCOL 17 GM PKG PO SCH (16:30)
[2017-03-24 16:37] VITALS: BP 155/74; PULSE 80; RESP 18; TEMP 97.8; O2SAT 97
--- NOTE | 2017-03-24 17:13 | PD.CARD.PN ---
Subjective Subjective Remarks No CP or SOB, back pain, hand wounds improving (dressing changed) Objective Medications Active Medications Acetaminophen 100 ml @ As Directed STK-MED ONCE IV; Start 03/24/17 at 09:21; Stop 03/24/17 at 09:22; Status DC Fentanyl Citrate (fentaNYL INJ) 100 mcg STK-MED ONCE .ROUTE; Start 03/24/17 at 09:21; Stop 03/24/17 at 09:22; Status DC Fentanyl Citrate (fentaNYL INJ) 100 mcg STK-MED ONCE .ROUTE; Start 03/24/17 at 09:21; Stop 03/24/17 at 09:22; Status DC Fentanyl Citrate (fentaNYL INJ) 400 mcg STK-MED ONCE .ROUTE; Start 03/24/17 at 15:01; Stop 03/24/17 at 15:02; Status DC Hydromorphone HCl (*DILAUDID PF INJ PERIprocedural ONLY) 1 mg STK-MED ONCE .ROUTE Last administered on 03/24/17 14:53; Admin Dose 1 MG; Start 03/24/17 at 14:53; Stop 03/24/17 at 14:54; Status DC Meperidine HCl (*DEMEROL INJ PERIprocedural ONLY) 25 mg STK-MED ONCE .ROUTE Last administered on 03/24/17t 15:01; Admin Dose 25 MG; Start 03/24/17 at 15:01 ; Stop 03/24/17 at 15:02; Status DC Midazolam HCl (Versed Inj) 2 mg STK-MED ONCE .ROUTE; Start 03/24/17 at 09:21; Stop 03/24/17 at 09:22; Status DC Miscellaneous Information ALL NURSING DEPARTME... UNSCH PRN .XX; Start at 14:52; Stop 03/25/17 at 14:51 Polyethylene Glycol (Miralax) 17 gm DAILY PO; Start 03/24/17 at 16:30; Status Cancel Vital Signs / I&O Vital Signs Date Time Temp Pulse Resp B/P (MAP) Pulse Ox O2 Delivery O2 Flow Rate FiO2 03/24/17 16:37 97.8 80 18 155/74 (101) 97 03/24/17 15:26 82 16 139/86 (103) 97 Nasal Cannula 3 03/24/17 15:15 79 16 149/85 (106) 97 Nasal Cannula 3 03/24/17 15:00 80 16 151/87 (108) 96 Nasal Cannula 3 03/24/17 14:50 97.7 82 16 140/83 (102) 95 Nasal Cannula 3 03/24/17 12:00 95 03/24/17 08:13 99.7 85 18 136/67 (90) 93 03/24/17 08:00 Room Air 03/24/17 06:44 20 03/24/17 04:00 99.8 90 17 148/76 (100) 93 03/24/17 00:00 99.1 74 19 144/70 (94) 93 03/23/17 21:10 Room Air 03/23/17 20:00 99.9 73 17 129/66 (87) 93 I/O 03/23/17 03/23/17 03/23/17 03/24/17 03/24/17 03/24/17 06:59 14:59 22:59 06:59 14:59 22:59 Intake Total 240 ml 100 ml 1709 ml 757 ml 1300 ml 100 ml Output Total 1650 ml 1900 ml 2100 ml 1200 ml 0 ml Balance -1410 ml 100 ml -191 ml -1343 ml 100 ml 100 ml Intake Oral 240 ml 400 ml 0 ml IV Total 100 ml 1709 ml 357 ml 100 ml Other 1300 ml Output Urine Total 1650 ml 1900 ml 2100 ml 1175 ml 0 ml Estimated Blood Loss 25 ml # Bowel Movements 0 0 0 Physical Exam GENERAL: In NAD SKIN: Warm and dry. HEAD: Normocephalic. EYES: No scleral icterus. No injection or drainage. NECK: Supple, trachea midline. No JVD or lymphadenopathy. CARDIOVASCULAR: Regular rate and rhythm without murmurs, gallops, or rubs. RESPIRATORY: Breath sounds equal bilaterally. No accessory muscle use. GASTROINTESTINAL: Abdomen soft, non-tender, nondistended. MUSCULOSKELETAL: No cyanosis, or edema. Laboratory Laboratory Tests Test 03/24/17 07:28 White Blood Count 11.8 TH/MM3 Red Blood Count 2.92 MIL/MM3 Hemoglobin 8.1 GM/DL Hematocrit 24.9 % Mean Corpuscular Volume 85.4 FL Mean Corpuscular Hemoglobin 27.8 PG Mean Corpuscular Hemoglobin Concent 32.5 % Red Cell Distribution Width 16.8 % Platelet Count 212 TH/MM3 Mean Platelet Volume 11.1 FL Neutrophils (%) (Auto) 73.9 % Lymphocytes (%) (Auto) 13.9 % Monocytes (%) (Auto) 11.4 % Eosinophils (%) (Auto) 0.4 % Basophils (%) (Auto) 0.4 % Neutrophils # (Auto) 8.7 TH/MM3 Lymphocytes # (Auto) 1.6 TH/MM3 Monocytes # (Auto) 1.3 TH/MM3 Eosinophils # (Auto) 0.0 TH/MM3 Basophils # (Auto) 0.1 TH/MM3 CBC Comment DIFF FINAL Differential Comment Assessment and Plan Problem List: (1) CHF (congestive heart failure) ICD Codes: I50.9 - Heart failure, unspecified Status: Acute (2) Cardiomyopathy ICD Codes: I42.9 - Cardiomyopathy, unspecified Status: Acute (3) ARF (acute renal failure) ICD Codes: N17.9 - Acute kidney failure, unspecified Status: Acute (4) Alcoholism ICD Codes: F10.20 - Alcohol dependence, uncomplicated Status: Acute (5) Tobacco use disorder ICD Codes: Z72.0 - Tobacco use Status: Acute (6) Sepsis ICD Codes: A41.9 - Sepsis, unspecified organism Status: Acute Assessment and Plan Echo with EF 40-45%. Remains stable from cardiac standpoint. Continue current management for cardiomyopathy and CHF including carvedilol and lisinopril. Increase activity, PT. Problem Qualifiers (1) Sepsis: Raquel Escobar MD Mar 24, 2017 17:13
--- NOTE | 2017-03-24 17:32 | HHI.PR ---
Subjective Remarks follow up multiple debridements right hand/wrist and forearm and closure no fever complains of mild pain responds to oral commands s/p BKA today Objective Vital Signs Date Time Temp Pulse Resp B/P (MAP) Pulse Ox O2 Delivery O2 Flow Rate FiO2 03/24/17 16:37 97.8 80 18 155/74 (101) 97 03/24/17 15:26 82 16 139/86 (103) 97 Nasal Cannula 3 03/24/17 15:15 79 16 149/85 (106) 97 Nasal Cannula 3 03/24/17 15:00 80 16 151/87 (108) 96 Nasal Cannula 3 03/24/17 14:50 97.7 82 16 140/83 (102) 95 Nasal Cannula 3 03/24/17 12:00 95 03/24/17 08:13 99.7 85 18 136/67 (90) 93 03/24/17 08:00 Room Air 03/24/17 06:44 20 03/24/17 04:00 99.8 90 17 148/76 (100) 93 03/24/17 00:00 99.1 74 19 144/70 (94) 93 03/23/17 21:10 Room Air 03/23/17 20:00 99.9 73 17 129/66 (87) 93 I/O 03/23/17 03/23/17 03/23/17 03/24/17 03/24/17 03/24/17 07:00 15:00 23:00 07:00 15:00 23:00 Intake Total 240 ml 100 ml 1709 ml 757 ml 1300 ml 100 ml Output Total 1650 ml 1900 ml 2100 ml 1200 ml 0 ml Balance -1410 ml 100 ml -191 ml -1343 ml 100 ml 100 ml Intake Oral 240 ml 400 ml 0 ml IV Total 100 ml 1709 ml 357 ml 100 ml Other 1300 ml Output Urine Total 1650 ml 1900 ml 2100 ml 1175 ml 0 ml Estimated Blood Loss 25 ml # Bowel Movements 0 0 0 right upper extremity: wound measuring 2X2 cms over the dorsoradial of the wrist rest of the wound appear healing well minimal serous drainage noted able to move the wrist with pain no thumb active extension stiffness of the little finger noted left hand; incision sites clean and dry sutures in place Result Diagram: 03/24/17 0728 03/23/17 0900 Assessment and Plan Assessment and Plan 61 year old male s/p incision and drainage, arthrotomy bilateral index finger MP joints, extensor tenosynovectomy s/p closure POD4 plan dressing changed continue antibiotics based on ID recommendations continue with limb elevation and range of motion exercises. removable wrist brace to keep the wrist in extension. hand surgery will follow Roque Bullock MD Mar 24, 2017 17:32
[2017-03-24 20:00] VITALS: BP 146/77; PULSE 83; RESP 18; TEMP 98.2; O2SAT 97
[2017-03-24] MEDS: PANTOPRAZOLE SODIUM 40 MG VIAL IV PUSH SCH (23:59)
[2017-03-25] VITALS (8 sets, daily range): BP systolic 101–154; BP diastolic 56–70; PULSE 72–92; RESP 17–20; TEMP 98.3–101.2; O2SAT 93–98
[2017-03-25] MEDS: NS + KCL 20 MEQ INJ 1,000 ML IV SCH ×2 (03:50→16:50)
[2017-03-25] MEDS: HYDROmorphone HCL PF 1 MG/ML VIAL IV PUSH PRN ×3 (06:13→17:15)
[2017-03-25] MEDS: METHOCARBAMOL 500 MG TAB PO SCH ×3 (06:13→21:03)
[2017-03-25] MEDS: cloNIDine HCL 0.3 MG TAB PO SCH ×3 (06:13→21:03)
[2017-03-25] MEDS ORDERED: ACETAMINOPHEN 325 MG TAB PO PRN (10:00)
[2017-03-25] MEDS: MUPIROCIN 2% OINT 1 APPLIC/GM SYR NASAL SCH ×2 (10:02→21:00)
[2017-03-25] MEDS: THIAMINE HCL 100 MG TAB PO SCH (10:03)
[2017-03-25] MEDS: CARVEDILOL 6.25 MG TAB PO SCH ×2 (10:03→21:03)
[2017-03-25] MEDS: LISINOPRIL 5 MG TAB PO SCH (10:03)
[2017-03-25] MEDS: MULTIVITAMIN TAB PO SCH (10:03)
--- NOTE | 2017-03-25 11:58 | MP ---
cc: NAZARIO SHANE MD DATE OF SURGERY 03/24/2017 PREOPERATIVE DIAGNOSES Gangrenous ulcer of the right leg. Osteomyelitis with destruction of the tibia of the right leg and destruction of the ankle. POSTOPERATIVE DIAGNOSES Gangrenous ulcer of the right leg. Osteomyelitis with destruction of the tibia of the right leg and destruction of the ankle. PROCEDURE Right below-knee amputation. SURGEON MD Flory ANESTHESIA General. ESTIMATED BLOOD LOSS 100 cc. OPERATIVE PROCEDURE The patient was prepped and draped in the usual fashion and the leg marked with suture indentation to the skin. Incision is made anteriorly with a 10 blade, carried laterally down and then posteriorly finishing the flap. Incision is deepened with cautery medially and lateral to the tibia. Anterior tibial artery and veins are clamped, divided and ligated with 0 silk. The incision is now carried down to the fibula. Medially the muscle groups are transected with the cautery and then incisions carried down through the fascia toward the foot. The periosteal elevator is now used to elevated the fibula and tibia periosteum friend indentation to the skin incision was made anteriorly with a 10 blade, carried laterally down posteriorly finishing the flap incision is deepened with cautery medial and lateral to the tibia, anterior tibial artery and veins are clamped, divided and ligated with 0-silk. The incision is now carried down to the fibula. Medially the muscle groups are transected with the cautery and then incision is carried down through the fascia toward the foot. The periosteal elevator is now he used to elevate the fibula and tibia periosteum to about 1-1/2 inch above the level of the incision on the skin and then both bones are transected with oscillating saw. The posterior flap is now created with a large amputation knife and specimens removed. Meticulous hemostasis obtained by suture ligation with 0 Vicryl of the branches of anterior and posterior, tibial and peroneal arteries and veins. The area is irrigated with copious amounts of saline. The tibia is now angled with a rasp and smoothed out. The anterior tibial nerve is trimmed off and some other tissues which were loose in the wound. The incision is now closed by bringing pieces of soleus and pieces of gastrocnemius muscle anteriorly and then closing incision by deep fascia to deep fascia and superficial fascia to superficial fascia with 0 Vicryl and the skin with 2-0 Prolene interrupted stitch. Dressing applied. The patient tolerated the procedure well. Nazario KELSEY /4:43 PM /11:44 AM
[2017-03-25 12:04] LABS: AUTOMATED NEUTROPHIL # 9.9 TH/MM3 (1.8-7.7); BASOPHIL % 0.3 % (0.0-2.0); EOSINOPHIL % 0.2 % (0.0-4.0); HEMO FLAGS DIFF FINAL; LYMPH % 10.1 % (9.0-44.0); LYMPHOCYTE # 1.2 TH/MM3 (1.0-4.8); MEAN CELL VOLUME 85.5 FL (80.0-100.0); MEAN CORPUSCULAR HEMOGLOBIN 27.7 PG (27.0-34.0); MEAN CORPUSCULAR HGB CONC 32.4 % (32.0-36.0); NEUT % 80.4 % (16.0-70.0); PLATELET COUNT 179 TH/MM3 (150-450); RED BLOOD COUNT 2.69 MIL/MM3 (4.50-5.90); RED CELL DISTRIBUTION WIDTH 16.2 % (11.6-17.2); WHITE BLOOD COUNT 12.3 TH/MM3 (4.0-11.0)
[2017-03-25 12:22] LABS: BICARBONATE 23.9 MEQ/L (21.0-32.0); POTASSIUM 4.2 MEQ/L (3.5-5.1)
[2017-03-25] MEDS: ENOXAPARIN SODIUM 40 MG/0.4 ML SYRINGE SQ SCH (12:34)
[2017-03-25] MEDS: DAPTOMYCIN IV SCH (12:34)
[2017-03-25] MEDS: SODIUM CHLORIDE 0.9% IV SCH (12:34)
[2017-03-25 12:36] LABS: CALCIUM-PROTEIN CORRECTED 7.9 MG/DL (8.5-10.1)
--- NOTE | 2017-03-25 13:03 | PD.CARD.PN ---
Subjective Subjective Remarks No CP or SOB, feels fine Objective Medications Active Medications Acetaminophen (Tylenol) 650 mg Q4H PRN PO Last administered on 03/25/17 10:02 ; Admin Dose 650 MG; Start 03/25/17 at 10:00 Fentanyl Citrate (fentaNYL INJ) 400 mcg STK-MED ONCE .ROUTE; Start 03/24/17 at 15:01; Stop 03/24/17 at 15:02; Status DC Hydromorphone HCl (*DILAUDID PF INJ PERIprocedural ONLY) 1 mg STK-MED ONCE .ROUTE Last administered on 03/24/17 14:53; Admin Dose 1 MG; Start 03/24/17 at 14:53; Stop 03/24/17 at 14:54; Status DC Meperidine HCl (*DEMEROL INJ PERIprocedural ONLY) 25 mg STK-MED ONCE .ROUTE Last administered on 03/24/17 15:01; Admin Dose 25 MG; Start 03/24/17 at 15:01 ; Stop 03/24/17 at 15:02; Status DC Miscellaneous Information ALL NURSING DEPARTME... UNSCH PRN .XX; Start at 14:52; Stop 03/25/17 at 14:51 Polyethylene Glycol (Miralax) 17 gm DAILY PO; Start 03/24/17 at 16:30; Status Cancel Vital Signs / I&O Vital Signs Date Time Temp Pulse Resp B/P (MAP) Pulse Ox O2 Delivery O2 Flow Rate FiO2 03/25/17 09:05 101.2 03/25/17 08:00 101.2 83 20 154/63 (93) 97 03/25/17 04:19 99.6 92 18 117/56 (76) 96 03/25/17 00:40 99.2 78 20 135/70 (91) 96 03/24/17 20:30 Nasal Cannula 2.00 03/24/17 20:00 98.2 83 18 146/77 (100) 97 03/24/17 16:37 97.8 80 18 155/74 (101) 97 03/24/17 15:26 82 16 139/86 (103) 97 Nasal Cannula 3 03/24/17 15:15 79 16 149/85 (106) 97 Nasal Cannula 3 03/24/17 15:00 80 16 151/87 (108) 96 Nasal Cannula 3 03/24/17 14:50 97.7 82 16 140/83 (102) 95 Nasal Cannula 3 I/O 03/24/17 03/24/17 03/24/17 03/25/17 03/25/17 03/25/17 07:00 15:00 23:00 07:00 15:00 23:00 Intake Total 757 ml 1300 ml 1266 ml 2841 ml Output Total 2100 ml 1200 ml 200 ml 725 ml Balance -1343 ml 100 ml 1066 ml 2116 ml Intake Oral 400 ml 0 ml 750 ml IV Total 357 ml 285 ml 1000 ml Tube Feeding 981 ml 691 ml Other 1300 ml 400 ml Output Urine Total 2100 ml 1175 ml 200 ml 725 ml Estimated Blood Loss 25 ml # Bowel Movements 0 0 Physical Exam GENERAL: In NAD SKIN: Warm and dry. HEAD: Normocephalic. EYES: No scleral icterus. No injection or drainage. NECK: Supple, trachea midline. No JVD or lymphadenopathy. CARDIOVASCULAR: Regular rate and rhythm without murmurs, gallops, or rubs. RESPIRATORY: Breath sounds equal bilaterally. No accessory muscle use. GASTROINTESTINAL: Abdomen soft, non-tender, nondistended. MUSCULOSKELETAL: No cyanosis, or edema. Laboratory Laboratory Tests Test 03/25/17 11:20 White Blood Count 12.3 TH/MM3 Red Blood Count 2.69 MIL/MM3 Hemoglobin 7.4 GM/DL Hematocrit 23.0 % Mean Corpuscular Volume 85.5 FL Mean Corpuscular Hemoglobin 27.7 PG Mean Corpuscular Hemoglobin Concent 32.4 % Red Cell Distribution Width 16.2 % Platelet Count 179 TH/MM3 Mean Platelet Volume 10.8 FL Neutrophils (%) (Auto) 80.4 % Lymphocytes (%) (Auto) 10.1 % Monocytes (%) (Auto) 9.0 % Eosinophils (%) (Auto) 0.2 % Basophils (%) (Auto) 0.3 % Neutrophils # (Auto) 9.9 TH/MM3 Lymphocytes # (Auto) 1.2 TH/MM3 Monocytes # (Auto) 1.1 TH/MM3 Eosinophils # (Auto) 0.0 TH/MM3 Basophils # (Auto) 0.0 TH/MM3 CBC Comment DIFF FINAL Differential Comment Blood Urea Nitrogen 22 MG/DL Creatinine 0.99 MG/DL Random Glucose 154 MG/DL Total Protein 5.7 GM/DL Calcium Level 7.2 MG/DL Sodium Level 132 MEQ/L Potassium Level 4.2 MEQ/L Chloride Level 100 MEQ/L Carbon Dioxide Level 23.9 MEQ/L Anion Gap 8 MEQ/L Estimat Glomerular Filtration Rate 76 ML/MIN Protein Corrected Calcium 7.9 MG/DL Total Creatine Kinase 216 U/L Assessment and Plan Problem List: (1) CHF (congestive heart failure) ICD Codes: I50.9 - Heart failure, unspecified Status: Acute (2) Cardiomyopathy ICD Codes: I42.9 - Cardiomyopathy, unspecified Status: Acute (3) ARF (acute renal failure) ICD Codes: N17.9 - Acute kidney failure, unspecified Status: Acute (4) Alcoholism ICD Codes: F10.20 - Alcohol dependence, uncomplicated Status: Acute (5) Tobacco use disorder ICD Codes: Z72.0 - Tobacco use Status: Acute (6) Sepsis ICD Codes: A41.9 - Sepsis, unspecified organism Status: Acute Assessment and Plan LV function decreased to mild to moderate degree. Last echo with EF 40-45%. Remains stable from cardiac standpoint. Continue current management for cardiomyopathy and CHF including carvedilol and lisinopril. Increase activity, PT. Problem Qualifiers (1) Sepsis: Raquel Escobar MD Mar 25, 2017 13:03
--- NOTE | 2017-03-25 14:38 | PD.CAR.PN ---
CVT Progress Note Subjective/Hospital Course: Referral received Full consult VERONICA Lee Martinez 03/24/17 Discussed care with the patient today As noted in the consultation this patient has no chance of recovering without amputation and infection and systemic symptoms will persist. Patient is unable to use the leg which keeps him bedridden and dysfunctional. Patient will discussed the care with his father today and he is tentatively planned for surgery tomorrow 03/25/17 Status post right below-knee amputation Incision is clean and dry Dressing is intact We will leave the dressing on until Wednesday Objective: Vital Signs Date Time Temp Pulse Resp B/P (MAP) Pulse Ox O2 Delivery O2 Flow Rate FiO2 03/25/17 12:00 100.0 79 20 136/68 (90) 98 03/25/17 09:05 101.2 03/25/17 08:00 101.2 83 20 154/63 (93) 97 03/25/17 04:19 99.6 92 18 117/56 (76) 96 03/25/17 00:40 99.2 78 20 135/70 (91) 96 03/24/17 20:30 Nasal Cannula 2.00 03/24/17 20:00 98.2 83 18 146/77 (100) 97 03/24/17 16:37 97.8 80 18 155/74 (101) 97 03/24/17 15:26 82 16 139/86 (103) 97 Nasal Cannula 3 03/24/17 15:15 79 16 149/85 (106) 97 Nasal Cannula 3 03/24/17 15:00 80 16 151/87 (108) 96 Nasal Cannula 3 03/24/17 14:50 97.7 82 16 140/83 (102) 95 Nasal Cannula 3 Labs: Laboratory Tests Test 03/25/17 11:20 White Blood Count 12.3 TH/MM3 (4.0-11.0) Red Blood Count 2.69 MIL/MM3 (4.50-5.90) Hemoglobin 7.4 GM/DL (13.0-17.0) Hematocrit 23.0 % (39.0-51.0) Mean Corpuscular Volume 85.5 FL (80.0-100.0) Mean Corpuscular Hemoglobin 27.7 PG (27.0-34.0) Mean Corpuscular Hemoglobin Concent 32.4 % (32.0-36.0) Red Cell Distribution Width 16.2 % (11.6-17.2) Platelet Count 179 TH/MM3 (150-450) Mean Platelet Volume 10.8 FL (7.0-11.0) Neutrophils (%) (Auto) 80.4 % (16.0-70.0) Lymphocytes (%) (Auto) 10.1 % (9.0-44.0) Monocytes (%) (Auto) 9.0 % (0.0-8.0) Eosinophils (%) (Auto) 0.2 % (0.0-4.0) Basophils (%) (Auto) 0.3 % (0.0-2.0) Neutrophils # (Auto) 9.9 TH/MM3 (1.8-7.7) Lymphocytes # (Auto) 1.2 TH/MM3 (1.0-4.8) Monocytes # (Auto) 1.1 TH/MM3 (0-0.9) Eosinophils # (Auto) 0.0 TH/MM3 (0-0.4) Basophils # (Auto) 0.0 TH/MM3 (0-0.2) CBC Comment DIFF FINAL Differential Comment Blood Urea Nitrogen 22 MG/DL (7-18) Creatinine 0.99 MG/DL (0.60-1.30) Random Glucose 154 MG/DL (74-106) Total Protein 5.7 GM/DL (6.4-8.2) Calcium Level 7.2 MG/DL (8.5-10.1) Sodium Level 132 MEQ/L (136-145) Potassium Level 4.2 MEQ/L (3.5-5.1) Chloride Level 100 MEQ/L (98-107) Carbon Dioxide Level 23.9 MEQ/L (21.0-32.0) Anion Gap 8 MEQ/L (5-15) Estimat Glomerular Filtration Rate 76 ML/MIN (>89) Protein Corrected Calcium 7.9 MG/DL (8.5-10.1) Total Creatine Kinase 216 U/L (39-308) Result Diagram: 03/25/17 1120 03/25/17 1120 (1) CHF (congestive heart failure) (2) Cardiomyopathy (3) ARF (acute renal failure) (4) Alcoholism (5) Tobacco use disorder (6) Sepsis Problem Qualifiers (1) Sepsis: Nazario Ruth MD Mar 25, 2017 14:38
--- NOTE | 2017-03-25 14:54 | HHI.PR ---
Subjective Remarks Patient looks ill he is status post BKA yesterday Patient has been running fever 101 max since 8 AM He feels thirsty, not very talkative, did report feeling feverish denied cough D/W order blood culture and chest x-ray,D/W , Objective Vitals Vital Signs Date Time Temp Pulse Resp B/P (MAP) Pulse Ox O2 Delivery O2 Flow Rate FiO2 03/25/17 12:00 100.0 79 20 136/68 (90) 98 03/25/17 09:05 101.2 03/25/17 08:00 Room Air 03/25/17 08:00 101.2 83 20 154/63 (93) 97 03/25/17 04:19 99.6 92 18 117/56 (76) 96 03/25/17 00:40 99.2 78 20 135/70 (91) 96 03/24/17 20:30 Nasal Cannula 2.00 03/24/17 20:00 98.2 83 18 146/77 (100) 97 03/24/17 16:37 97.8 80 18 155/74 (101) 97 03/24/17 15:26 82 16 139/86 (103) 97 Nasal Cannula 3 03/24/17 15:15 79 16 149/85 (106) 97 Nasal Cannula 3 03/24/17 15:00 80 16 151/87 (108) 96 Nasal Cannula 3 I/O 03/24/17 03/24/17 03/24/17 03/25/17 03/25/17 03/25/17 07:00 15:00 23:00 07:00 15:00 23:00 Intake Total 757 ml 1300 ml 1266 ml 2841 ml Output Total 2100 ml 1200 ml 200 ml 725 ml Balance -1343 ml 100 ml 1066 ml 2116 ml Intake Oral 400 ml 0 ml 750 ml IV Total 357 ml 285 ml 1000 ml Tube Feeding 981 ml 691 ml Other 1300 ml 400 ml Output Urine Total 2100 ml 1175 ml 200 ml 725 ml Estimated Blood Loss 25 ml # Bowel Movements 0 0 Result Diagram: 03/25/17 1120 03/25/17 1120 Objective Remarks GENERAL: This is a well-nourished, well-developed patient, in no apparent distress. SKIN: No rashes, warm and dry HEAD: Atraumatic. Normocephalic. EYES: Pupils equal round and reactive. Extraocular motions intact. No scleral icterus. ENT: Nose without bleeding, or drainage, Airway patent. NECK: Trachea midline. Supple CARDIOVASCULAR: Regular rate and rhythm without murmurs, gallops, or rubs. RESPIRATORY: Fair air entry bilaterally. No wheezes, rales, or rhonchi. GASTROINTESTINAL: Abdomen soft, non-tender, nondistended. Positive bowel sounds MUSCULOSKELETAL:No cyanosis, or edema. Right and left arms are bandaged home right arm in lifting sling. Right foot is in bandage. NEUROLOGICAL: Awake and alert. Moves all extremity. Normal speech.no focal neurological deficit Procedures 03/10/2017 - Dr. Bullock exploration, wash, excisional debridement extensor tenosynovium right wrist/forearm/hand 03/08/17 - Dr. Bullock- exploration, wash, excisional debridement skin, subcutaneous tissue, extensor tenosynovitis right wrist and hand. Findings: necrotic tissue, minimal purulence, extensor tenosynovitis right wrist/hand 03/04/17 - Dr Gamez - Right leg and incision and drainage. Right foot delayed primary closure x3 03/04/17 - Dr. Bullock - Extensor tenosynovectomy second, third, fourth extensor compartments right wrist and excisional debridement wash index finger metacarpal phalangeal joint, excisional wash and excisional debridement left hand. 02/28/17 - Dr. Reyes - Right ankle wound debridement and washout. Implantation of antibiotic vancomycin beads. 02/28/17 - Dr. Bullock - Exploration, wash, excisional debridement index finger metacarpophalangeal joint right hand; Exploration, wash, excisional debridement metacarpophalangeal joint left index finger; Exploration, wash, excisional debridement extensor pollicis longus tendon right thumb and hand. 02/26/17 - Dr. Reyes - Right ankle incision and drainage, arthrotomy, removal infected hardware, bone biopsy. 02/26/17 - Dr. Bullock - Exploration, incision and drainage right hand abscess, Arthrotomy wash metacarpal phalangeal joint right index finger, Arthrotomy wash metacarpal phalangeal joint left index finger. A/P Problem List: (1) Sepsis ICD Code: A41.9 - Sepsis, unspecified organism Status: Acute (2) Right foot infection ICD Code: L08.9 - Local infection of the skin and subcutaneous tissue, unspecified Status: Acute (3) Encephalopathy ICD Code: G93.40 - Encephalopathy, unspecified Status: Acute (4) Alcoholism ICD Code: F10.20 - Alcohol dependence, uncomplicated Status: Acute Assessment and Plan 61-year-old male admitted secondary to numerous infections including bilateral hands and right ankle. Previous history of right ankle. Patient also had encephalopathy secondary to infection and alcohol withdrawal time of admit. Encephalopathy has improved. Continued treatments of infections are ongoing. Status post I&D of right elbow yesterday. Continue wound care. Robaxin started for muscle spasms. 03/20: Continue current care, check CBC in a.m. BMP, monitor for fever 03/21: Continue current care, monitor vitals, CPS following 03/22: CVS consulted by podiatry due to persistent infection in the proximal ankle, repeat BMP in a.m. 03/23: Still complaining of pain, monitor for fever or signs of worsening infection, CVS following, CBC in a.m. 03/24: No acute issue going for BKA today, will monitor postop 03/25: Status post BKA on 03/24, persistent spiking fever 101.2 this 8 AM today , Tylenol, blood culture and chest x-ray ordered, patient has been on Cubicin, will order renal function and CK watch for any side effect, discussed with ID, UA and lactic acid to rule out underlying sepsis, also patient has been cleared by speech for regular diet, will order oral tray and asked dietitian to adjust tube feeds 03/26 : CXR showed possible b/l infiltrate , UTI with + UA , lactic acidosis 4.2 > >0.9 today , started on zosyn with dapto last temp was 100 last midnight severe anemia mostly post op [id number] recurrent Sepsis Initially Resolved now with recurrent fever Possible MRSA endocarditis. distant showering of emboli to other joints. MRSA bacteremia Right ankle hardware infection, s/p partial removal of hardware. Deeper hardware embedded. Bilateral UE hand abscess and tenosynovitis, septic arthritis s.p multiple debridements. Continue rifampin and dapto Plan for long-term IV antibiotics, rifampin for 6 weeks Likely will need senior living facility placement Continue oxycodone and Dilaudid for pain May still need further surgical intervention Hand surgeon following Podiatry following ID following Multiple surgeries thus far: - podiatry Dr. Reyes/Dr. Gamez on 02/26, 02/28, 03/04 - hand surgeon Dr. Bullock on 02/26, 02/28, 03/04, 03/08, 03/10 Anemia Most recent hemoglobin is 8.0 Follow CBC May need repeat transfusion if the trend is downward Last transfusion was one unit on 03/12/17 Continued present diet Acute Toxic/Metabolic Encephalopathy secondary to Sepsis Acute Alcohol Withdrawal Resolved Hypernatremia Resolved Hypokalemia Replace as needed Continue to monitor Hypertension Continue clonidine and Coreg Follow blood pressures Adjust as needed for control Mild Systolic CHF EF of 40-45% with global hypokinesis found on 02/28/17 Medical management to continue Continue beta amarjit Continue lisinopril THADDEUS possibly vanco induced Monitor renal function Avoid nephrotoxins Previous event was likely secondary to ATN Nephrology following Urinary retention Monitor urine output Hepatitis C Standard precautions DVT Prophylaxis Lovenox Problem Qualifiers (1) Sepsis: Kg Zaragoza MD Mar 25, 2017 14:54
--- NOTE | 2017-03-25 16:01 | RADRPT ---
EXAM DATE/TIME: 03/25/2017 14:47 [facility] COMPARISON: CHEST SINGLE AP, March 02, 2017, 13:26. INDICATIONS : Fever. MEDICAL HISTORY : Hypertension. Hepatitis. SURGICAL HISTORY : None. ENCOUNTER: Subsequent ACUITY: 1 day PAIN SCORE: 0/10 LOCATION: Bilateral chest FINDINGS: Hazy bilateral pleural-parenchymal opacities, more prominent on the right than the left suggestive of parenchymal infiltrate or edema and associated effusion. Slight hilar prominence bilaterally. Heart size is grossly stable. CONCLUSION: Abnormal chest appearance. Radiographic followup versus further evaluation with CT chest suggested. Alexander Solorio MD on March 25, 2017 at 15:57 Board Certified Radiologist. This report was verified electronically.
--- NOTE | 2017-03-25 17:04 | HHI.IDPN ---
Subjective Subjective Remarks is a 61 y/o CM with PMHx of right foot hardware, hypertension, alcoholism, Hepatitis C who was admitted with sepsis, acute metabolic encephalopathy ? DTs. Removal of hardware from r. ankle 02/27. Noted to have a pocket of pus adjacent to and in contact with the hardware. Could not remove all of the wires per podiatry. Embedded in deep tissue. Culture form both index fingers has MRSA. R ankle culture - and distal fibula 02/26, 02/28 MRSA. Blood culture 02/24, 02/25, 02/27 - MRSA. 2D ECHO - No vegetations noted. Overnight events reviewed. s/b plan for Right BKA in am as non healing wound despite optimal antibiotic Mment. Has retained hardware wires that may be contributing. Overnight fevers 101 F several times in last 24 hours post right BKA. No rash No diarrhea Antibiotics Dapto IV Lines Line sites with no e.o infection Past Medical History hypertension alcoholism Hepatitis C right foot surgery with hardware in place. right AKA Allergies: Coded Allergies: ciprofloxacin (Unverified Adverse Reaction, Intermediate, Dizziness, ) *MDRO Multi-Drug Resistant Organism (Verified Adverse Reaction, Unknown, ) MRSA (blood)+(urine) 02/24/17, (blood) 02/25/17, 02/27/17 (finger,ankle,leg) 02/26/17, 02/28/17 MRSA PCR screen positive 02/25/17 Objective . Vital Signs Date Time Temp Pulse Resp B/P (MAP) Pulse Ox O2 Delivery O2 Flow Rate FiO2 03/25/17 12:00 100.0 79 20 136/68 (90) 98 03/25/17 09:05 101.2 03/25/17 08:00 Room Air 03/25/17 08:00 101.2 83 20 154/63 (93) 97 03/25/17 04:19 99.6 92 18 117/56 (76) 96 03/25/17 00:40 99.2 78 20 135/70 (91) 96 03/24/17 20:30 Nasal Cannula 2.00 03/24/17 20:00 98.2 83 18 146/77 (100) 97 . Laboratory Tests Test 03/24/17 07:28 03/25/17 11:20 White Blood Count 11.8 TH/MM3 12.3 TH/MM3 Red Blood Count 2.92 MIL/MM3 2.69 MIL/MM3 Hemoglobin 8.1 GM/DL 7.4 GM/DL Hematocrit 24.9 % 23.0 % Mean Corpuscular Volume 85.4 FL 85.5 FL Mean Corpuscular Hemoglobin 27.8 PG 27.7 PG Mean Corpuscular Hemoglobin Concent 32.5 % 32.4 % Red Cell Distribution Width 16.8 % 16.2 % Platelet Count 212 TH/MM3 179 TH/MM3 Mean Platelet Volume 11.1 FL 10.8 FL Neutrophils (%) (Auto) 73.9 % 80.4 % Lymphocytes (%) (Auto) 13.9 % 10.1 % Monocytes (%) (Auto) 11.4 % 9.0 % Eosinophils (%) (Auto) 0.4 % 0.2 % Basophils (%) (Auto) 0.4 % 0.3 % Neutrophils # (Auto) 8.7 TH/MM3 9.9 TH/MM3 Lymphocytes # (Auto) 1.6 TH/MM3 1.2 TH/MM3 Monocytes # (Auto) 1.3 TH/MM3 1.1 TH/MM3 Eosinophils # (Auto) 0.0 TH/MM3 0.0 TH/MM3 Basophils # (Auto) 0.1 TH/MM3 0.0 TH/MM3 CBC Comment DIFF FINAL DIFF FINAL Differential Comment Laboratory Tests Test 03/25/17 11:20 Blood Urea Nitrogen 22 MG/DL Creatinine 0.99 MG/DL Random Glucose 154 MG/DL Total Protein 5.7 GM/DL Calcium Level 7.2 MG/DL Sodium Level 132 MEQ/L Potassium Level 4.2 MEQ/L Chloride Level 100 MEQ/L Carbon Dioxide Level 23.9 MEQ/L Anion Gap 8 MEQ/L Estimat Glomerular Filtration Rate 76 ML/MIN Protein Corrected Calcium 7.9 MG/DL Total Creatine Kinase 216 U/L Microbiology Date/Time Source Procedure Growth Status 03/25/17 11:40 Blood Peripheral Aerobic Blood Culture Pending Received 03/25/17 11:40 Blood Peripheral Anaerobic Blood Culture Pending Received 03/25/17 11:30 Blood Peripheral Aerobic Blood Culture Pending Received 03/25/17 11:30 Blood Peripheral Anaerobic Blood Culture Pending Received Imaging Last Impressions Chest X-Ray 03/02/17 0000 Signed Impressions: Service Date/Time: Thursday, March 02, 2017 13:26 - CONCLUSION: Interval develop of a small left-sided pleural effusion. Pulmonary venous congestion. Edenilson Oviedo MD Lower Extremity CT 03/01/17 Signed Impressions: Service Date/Time: Wednesday, March 01, 2017 11:12 - CONCLUSION: 1. No evidence of organized fluid collections to suggest an abscess. 2. Extensive soft tissue swelling surrounding the ankle and extending to the forefoot especially along the lateral aspect. 3. No erosive or destructive bone changes. 4. Bone defects compatible with previous excision device. Blake Rider MD Ankle X-Ray 02/26/17 Signed Impressions: Service Date/Time: Sunday, February 26, 2017 17:15 - CONCLUSION: I see no retained surgical instruments. Isaac Stevenson MD FACR Abdomen X-Ray 02/26/17 Signed Impressions: Service Date/Time: Monday, February 27, 2017 00:36 - CONCLUSION: Nasogastric tube within the stomach Harry Lucio MD Upper Extremity Ultrasound 02/25/17 1734 Signed Impressions: Service Date/Time: February 17:54 - CONCLUSION: There is a thin fluid collection within the focal area of soft tissue swelling 2nd digit. Oscar Cassidy MD Hand X-Ray 02/25/17 Signed Impressions: Service Date/Time: February 18:59 - CONCLUSION: No gross bony abnormality. Oscar Cassidy MD Lower Extremity Ultrasound 02/24/17 Signed Impressions: Service Date/Time: Friday, February 24, 2017 13:41 - CONCLUSION: Negative for deep venous thrombosis. Isaac Stevenson MD FACR Head CT 02/24/17 Signed Impressions: Service Date/Time: Friday, February 24, 2017 16:08 - CONCLUSION: 1. No acute intracranial abnormality. 2. Probable large mucocele in the sphenoid sinus. Ty Hankins MD Abdomen/Pelvis CT 02/24/17 Signed Impressions: Service Date/Time: Friday, February 24, 2017 16:16 - CONCLUSION: 1. Marked gaseous distension of large and small bowel most suggestive of ileus. 2. There is no free air. 3. 2.2 cm left adrenal mass. 4. Distended bladder. Isaac Stevenson MD FACR Physical Exam GENERAL: This is a well-nourished, well-developed patient, in no apparent distress. SKIN: No rashes, ecchymoses or lesions. Cool and dry. HEAD: Atraumatic. Normocephalic. No temporal or scalp tenderness. EYES: Pupils equal round and reactive. Extraocular motions intact. No scleral icterus. No injection or drainage. ENT: Nose without bleeding, purulent drainage or septal hematoma. Throat without erythema, tonsillar hypertrophy or exudate. Uvula midline. Airway patent. NECK: Trachea midline. Supple, nontender, no meningeal signs. CARDIOVASCULAR: Regular rate and rhythm without murmurs, gallops, or rubs. RESPIRATORY: Clear to auscultation. Breath sounds equal bilaterally. No wheezes , rales, or rhonchi. GASTROINTESTINAL: Abdomen soft, non-tender, nondistended. MUSCULOSKELETAL: Rt BKA site in dressing. NEUROLOGICAL: Awake, grossly non focal. 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 distant showering of emboli to other joints. MRSA bacteremia Right ankle hardware infection, s/p partial removal of hardware. Deeper hardware embedded. Bilateral UE hand abscess and tenosynovitis, septic arthritis s.p multiple debridements. Acute renal failure: ? vanco induced. Improving. hypertension alcoholism Hepatitis C Recs Continue Dapto IV (ASP: ? Vanco induced renal failure). d/w Clinical pharmacist to dose at 8 mg/kg IV q48hrs. Start Zosyn IV (Re: ? HCAP) Check BNP Repeat labs. Check lactic acid Check blood cultures. Check Check CXR: reviewed by me bilateral possible infiltrates. UA with reflex to cultures. Check CBC with diff, Cr, LFTs and CRP every week. To be ordered and followed by hospitalist. Follow cultures Follow clinically. d/w about new fever workup. Case management note: Will need IV antibiotics for 6 weeks for endocarditis. Consider SNF placement as patient has alcoholism history and may not be compliant with medications/antibiotics. Sunshine Keene MD Mar 25, 2017 17:04
[2017-03-25 18:20] LABS: BACTERIA, URINE RARE /hpf; BLOOD, URINE SMALL (NEG); COMMENT (UR) CATH-CULTURE IND; CULTURE IF INDICATED CATH CULTURE IND; GLUCOSE,URINE NEG (NEG); KETONE, URINE NEG (NEG); NITRITE,URINE POS (NEG); PH, URINE 6.5 (5.0-8.5); TRANSITIONAL EPI CELLS, URINE 1 /hpf; URINE COLOR YELLOW (YELLW/STRAW)
[2017-03-25] MEDS: PIPERACIL-TAZO 4.5 GM PREMIX 100 ML IV SCH (21:56)
[2017-03-25 23:13] LABS: LACTIC ACID GHOST NOT REPORTABLE
[2017-03-26] VITALS (8 sets, daily range): BP systolic 94–127; BP diastolic 53–81; PULSE 71–78; RESP 16–20; TEMP 99.1–100.2; O2SAT 90–96
[2017-03-26] MEDS: HYDROmorphone HCL PF 1 MG/ML VIAL IV PUSH PRN ×5 (00:04→21:46)
[2017-03-26] MEDS: PANTOPRAZOLE SODIUM 40 MG VIAL IV PUSH SCH ×2 (00:05→23:59)
[2017-03-26] MEDS: PIPERACIL-TAZO 4.5 GM PREMIX 100 ML IV SCH ×3 (03:51→23:58)
[2017-03-26] MEDS: METHOCARBAMOL 500 MG TAB PO SCH ×3 (05:54→21:48)
[2017-03-26] MEDS: NS + KCL 20 MEQ INJ 1,000 ML IV SCH ×2 (05:54→19:30)
[2017-03-26] MEDS: cloNIDine HCL 0.3 MG TAB PO SCH ×3 (05:54→21:48)
[2017-03-26] MEDS: THIAMINE HCL 100 MG TAB PO SCH (08:23)
[2017-03-26] MEDS: LISINOPRIL 5 MG TAB PO SCH (08:24)
[2017-03-26] MEDS: MUPIROCIN 2% OINT 1 APPLIC/GM SYR NASAL SCH ×2 (08:24→21:49)
[2017-03-26] MEDS: MULTIVITAMIN TAB PO SCH (08:24)
[2017-03-26] MEDS: CARVEDILOL 6.25 MG TAB PO SCH ×2 (08:24→21:48)
[2017-03-26 10:32] LABS: BASOPHIL % 0.4 % (0.0-2.0); EOSINOPHIL % 0.2 % (0.0-4.0); LYMPH % 11.9 % (9.0-44.0); LYMPHOCYTE # 1.3 TH/MM3 (1.0-4.8); MEAN CELL VOLUME 86.3 FL (80.0-100.0); MEAN CORPUSCULAR HEMOGLOBIN 26.9 PG (27.0-34.0); MEAN CORPUSCULAR HGB CONC 31.1 % (32.0-36.0); MONO % 8.4 % (0.0-8.0); NEUT % 79.1 % (16.0-70.0); PLATELET COUNT 181 TH/MM3 (150-450); RED BLOOD COUNT 2.51 MIL/MM3 (4.50-5.90); RED CELL DISTRIBUTION WIDTH 16.7 % (11.6-17.2); WHITE BLOOD COUNT 11.3 TH/MM3 (4.0-11.0)
[2017-03-26 10:39] LABS: HEMATOCRIT 21.7 % (39.0-51.0); HEMO FLAGS DIFF FINAL
[2017-03-26] MEDS: ENOXAPARIN SODIUM 40 MG/0.4 ML SYRINGE SQ SCH (12:46)
--- NOTE | 2017-03-26 13:13 | PD.CARD.PN ---
Subjective Subjective Remarks No CP or SOB, hand dressings changed, feels fine Objective Medications Active Medications Piperacillin Sod/ Tazobactam Sod 100 ml @ 200 mls/hr Q8H IV Last administered on 03/26/17t 12:46; Admin Dose 200 MLS/HR; Start 03/25/17 at 20:00 Vital Signs / I&O Vital Signs Date Time Temp Pulse Resp B/P (MAP) Pulse Ox O2 Delivery O2 Flow Rate FiO2 03/26/17 12:00 99.5 75 18 115/60 (78) 95 03/26/17 08:00 99.1 75 18 111/61 (78) 94 03/26/17 04:00 Room Air 03/26/17 04:00 99.4 74 16 127/81 (96) 90 03/26/17 00:00 Room Air 03/26/17 00:00 100.0 77 18 107/65 (79) 91 03/25/17 22:42 99.6 75 19 101/56 (71) 93 03/25/17 20:40 99.2 75 17 132/66 (88) 95 03/25/17 20:00 Room Air 03/25/17 18:00 98 Room Air 03/25/17 16:00 98.3 72 20 120/66 (84) 98 I/O 03/25/17 03/25/17 03/25/17 03/26/17 03/26/17 03/26/17 06:59 14:59 22:59 06:59 14:59 22:59 Intake Total 2841 ml 480 ml 1100 ml Output Total 725 ml 1050 ml 1350 ml Balance 2116 ml -570 ml -250 ml Intake Oral 750 ml 480 ml IV Total 1000 ml 1100 ml Tube Feeding 691 ml Other 400 ml Output Urine Total 725 ml 1050 ml 1350 ml # Bowel Movements 0 0 Physical Exam GENERAL: In NAD SKIN: Warm and dry. HEAD: Normocephalic. EYES: No scleral icterus. No injection or drainage. NECK: Supple, trachea midline. No JVD or lymphadenopathy. CARDIOVASCULAR: Regular rate and rhythm without murmurs, gallops, or rubs. RESPIRATORY: Breath sounds equal bilaterally. No accessory muscle use. GASTROINTESTINAL: Abdomen soft, non-tender, nondistended. MUSCULOSKELETAL: No cyanosis, or edema. Laboratory Laboratory Tests Test 03/25/17 17:45 8/31/17 21:02 03/26/17 00:30 03/26/17 09:22 Urine Color YELLOW Urine Turbidity HAZY Urine pH 6.5 Urine Specific [place] 1.012 Urine Protein 30 mg/dL Urine Glucose (UA) NEG mg/dL Urine Ketones NEG mg/dL Urine Occult Blood SMALL Urine Nitrite POS Urine Bilirubin NEG Urine Urobilinogen LESS THAN 2.0 MG/DL Urine Leukocyte Esterase LARGE Urine RBC 4 /hpf Urine WBC 86 /hpf Urine WBC Clumps RARE Urine Transitional Epithelial Cells 1 /hpf Urine Amorphous Sediment RARE Urine Bacteria RARE /hpf Microscopic Urinalysis Comment CATH-CULTURE IND Lactic Acid Level 4.6 mmol/L 0.9 mmol/L White Blood Count 11.3 TH/MM3 Red Blood Count 2.51 MIL/MM3 Hemoglobin 6.7 GM/DL Hematocrit 21.7 % Mean Corpuscular Volume 86.3 FL Mean Corpuscular Hemoglobin 26.9 PG Mean Corpuscular Hemoglobin Concent 31.1 % Red Cell Distribution Width 16.7 % Platelet Count 181 TH/MM3 Mean Platelet Volume 10.3 FL Neutrophils (%) (Auto) 79.1 % Lymphocytes (%) (Auto) 11.9 % Monocytes (%) (Auto) 8.4 % Eosinophils (%) (Auto) 0.2 % Basophils (%) (Auto) 0.4 % Neutrophils # (Auto) 9.0 TH/MM3 Lymphocytes # (Auto) 1.3 TH/MM3 Monocytes # (Auto) 1.0 TH/MM3 Eosinophils # (Auto) 0.0 TH/MM3 Basophils # (Auto) 0.0 TH/MM3 CBC Comment DIFF FINAL Differential Comment Assessment and Plan Problem List: (1) CHF (congestive heart failure) ICD Codes: I50.9 - Heart failure, unspecified Status: Acute (2) Cardiomyopathy ICD Codes: I42.9 - Cardiomyopathy, unspecified Status: Acute (3) ARF (acute renal failure) ICD Codes: N17.9 - Acute kidney failure, unspecified Status: Acute (4) Alcoholism ICD Codes: F10.20 - Alcohol dependence, uncomplicated Status: Acute (5) Tobacco use disorder ICD Codes: Z72.0 - Tobacco use Status: Acute (6) Sepsis ICD Codes: A41.9 - Sepsis, unspecified organism Status: Acute Assessment and Plan No new cardiac issues. LV function decreased to mild to moderate degree. F/u echo with EF 40-45%. Remains stable from cardiac standpoint. Continue current management for cardiomyopathy and CHF including carvedilol and lisinopril. Increase activity, PT. Problem Qualifiers (1) Sepsis: Raquel Escobar MD Mar 26, 2017 13:13
--- NOTE | 2017-03-26 13:18 | HHI.PR ---
Subjective Remarks follow up multiple debridements right hand/wrist and forearm and closure no fever complains of mild pain responds to oral commands Objective Vital Signs Date Time Temp Pulse Resp B/P (MAP) Pulse Ox O2 Delivery O2 Flow Rate FiO2 03/26/17 12:00 99.5 75 18 115/60 (78) 95 03/26/17 08:00 99.1 75 18 111/61 (78) 94 03/26/17 04:00 Room Air 03/26/17 04:00 99.4 74 16 127/81 (96) 90 03/26/17 00:00 Room Air 03/26/17 00:00 100.0 77 18 107/65 (79) 91 03/25/17 22:42 99.6 75 19 101/56 (71) 93 03/25/17 20:40 99.2 75 17 132/66 (88) 95 03/25/17 20:00 Room Air 03/25/17 18:00 98 Room Air 03/25/17 16:00 98.3 72 20 120/66 (84) 98 I/O 03/25/17 03/25/17 03/25/17 03/26/17 03/26/17 03/26/17 06:59 14:59 22:59 06:59 14:59 22:59 Intake Total 2841 ml 480 ml 1100 ml Output Total 725 ml 1050 ml 1350 ml Balance 2116 ml -570 ml -250 ml Intake Oral 750 ml 480 ml IV Total 1000 ml 1100 ml Tube Feeding 691 ml Other 400 ml Output Urine Total 725 ml 1050 ml 1350 ml # Bowel Movements 0 0 right wrist and forearm: no swelling open wound measuring 2X1 cm over the dorsoradial aspect range of motion of the wrist painless stiffness of the fingers noted left hand: healed surgical incision site sutures in place no drainage Result Diagram: 03/26/17 0922 03/25/17 1120 Assessment and Plan Assessment and Plan 61 year old male s/p incision and drainage, arthrotomy bilateral index finger MP joints, extensor tenosynovectomy s/p closure plan steri strips applied over the wound right wrist dry dressing applied sutures removed from left hand continue antibiotics based on ID recommendations continue with limb elevation and range of motion exercises. removable wrist brace to keep the wrist in extension. hand surgery will follow Roque Bullock MD Mar 26, 2017 13:18
[2017-03-26] MEDS ORDERED: FUROSEMIDE 20 MG/2 ML VIAL IV PUSH ONE (13:30)
--- NOTE | 2017-03-26 13:49 | HHI.PR ---
Subjective Remarks Resting in bed eating lunch He denied fever or chills chest pain short of breath or cough Hemoglobin is 6.7 today mostly postop No fever since last midnight it was 100 Discussed with ID most likely UTI related, lactic acid was 4.7 today Objective Vitals Vital Signs Date Time Temp Pulse Resp B/P (MAP) Pulse Ox O2 Delivery O2 Flow Rate FiO2 03/26/17 12:00 99.5 75 18 115/60 (78) 95 03/26/17 08:00 99.1 75 18 111/61 (78) 94 03/26/17 04:00 Room Air 03/26/17 04:00 99.4 74 16 127/81 (96) 90 03/26/17 00:00 Room Air 03/26/17 00:00 100.0 77 18 107/65 (79) 91 03/25/17 22:42 99.6 75 19 101/56 (71) 93 03/25/17 20:40 99.2 75 17 132/66 (88) 95 03/25/17 20:00 Room Air 03/25/17 18:00 98 Room Air 03/25/17 16:00 98.3 72 20 120/66 (84) 98 I/O 03/25/17 03/25/17 03/25/17 03/26/17 03/26/17 03/26/17 07:00 15:00 23:00 07:00 15:00 23:00 Intake Total 2841 ml 480 ml 1100 ml Output Total 725 ml 1050 ml 1350 ml Balance 2116 ml -570 ml -250 ml Intake Oral 750 ml 480 ml IV Total 1000 ml 1100 ml Tube Feeding 691 ml Other 400 ml Output Urine Total 725 ml 1050 ml 1350 ml # Bowel Movements 0 0 Result Diagram: 03/26/17 0922 03/25/17 1120 Objective Remarks GENERAL: This is a well-nourished, well-developed patient, in no apparent distress. SKIN: No rashes, warm and dry HEAD: Atraumatic. Normocephalic. EYES: Pupils equal round and reactive. Extraocular motions intact. No scleral icterus. ENT: Nose without bleeding, or drainage, Airway patent. NECK: Trachea midline. Supple CARDIOVASCULAR: Regular rate and rhythm without murmurs, gallops, or rubs. RESPIRATORY: Fair air entry bilaterally. No wheezes, rales, or rhonchi. GASTROINTESTINAL: Abdomen soft, non-tender, nondistended. Positive bowel sounds MUSCULOSKELETAL:No cyanosis, or edema. Right and left arms are bandaged home right arm in lifting sling. Right foot is in bandage. NEUROLOGICAL: Awake and alert. Moves all extremity. Normal speech.no focal neurological deficit : Scrotum swelling Procedures 03/10/2017 - Dr. Bullock exploration, wash, excisional debridement extensor tenosynovium right wrist/forearm/hand 03/08/17 - Dr. Bullock- exploration, wash, excisional debridement skin, subcutaneous tissue, extensor tenosynovitis right wrist and hand. Findings: necrotic tissue, minimal purulence, extensor tenosynovitis right wrist/hand 03/04/17 - Dr Gamez - Right leg and incision and drainage. Right foot delayed primary closure x3 03/04/17 - Dr. Bullock - Extensor tenosynovectomy second, third, fourth extensor compartments right wrist and excisional debridement wash index finger metacarpal phalangeal joint, excisional wash and excisional debridement left hand. 02/28/17 - Dr. Reyes - Right ankle wound debridement and washout. Implantation of antibiotic vancomycin beads. 02/28/17 - Dr. Bullock - Exploration, wash, excisional debridement index finger metacarpophalangeal joint right hand; Exploration, wash, excisional debridement metacarpophalangeal joint left index finger; Exploration, wash, excisional debridement extensor pollicis longus tendon right thumb and hand. 02/26/17 - Dr. Reyes - Right ankle incision and drainage, arthrotomy, removal infected hardware, bone biopsy. 02/26/17 - Dr. Bullock - Exploration, incision and drainage right hand abscess, Arthrotomy wash metacarpal phalangeal joint right index finger, Arthrotomy wash metacarpal phalangeal joint left index finger. A/P Problem List: (1) Sepsis ICD Code: A41.9 - Sepsis, unspecified organism Status: Acute (2) Right foot infection ICD Code: L08.9 - Local infection of the skin and subcutaneous tissue, unspecified Status: Acute (3) Encephalopathy ICD Code: G93.40 - Encephalopathy, unspecified Status: Acute (4) Alcoholism ICD Code: F10.20 - Alcohol dependence, uncomplicated Status: Acute Assessment and Plan 61-year-old male admitted secondary to numerous infections including bilateral hands and right ankle. Previous history of right ankle. Patient also had encephalopathy secondary to infection and alcohol withdrawal time of admit. Encephalopathy has improved. Continued treatments of infections are ongoing. Status post I&D of right elbow yesterday. Continue wound care. Robaxin started for muscle spasms. 03/20: Continue current care, check CBC in a.m. BMP, monitor for fever 03/21: Continue current care, monitor vitals, CPS following 03/22: CVS consulted by podiatry due to persistent infection in the proximal ankle, repeat BMP in a.m. 03/23: Still complaining of pain, monitor for fever or signs of worsening infection, CVS following, CBC in a.m. 03/24: No acute issue going for BKA today, will monitor postop 03/25: Status post BKA on 03/24, persistent spiking fever 101.2 this 8 AM today , Tylenol, blood culture and chest x-ray ordered, patient has been on Cubicin, will order renal function and CK watch for any side effect, discussed with ID, UA and lactic acid to rule out underlying sepsis, also patient has been cleared by speech for regular diet, will order oral tray and asked dietitian to adjust tube feeds 03/26 : CXR showed possible b/l infiltrate but no clinical respiratory symptoms, UTI with + UA , lactic acidosis 4.2 >>0.9 today , started on zosyn with dapto last temp was 100 last midnight severe anemia mostly post op hb6.7>> transfused 2 pack of red blood cells CT within normal limit, BNP dropped from 600-300 6 A/P: recurrent Sepsis Initially Resolved now with recurrent fever Possible MRSA endocarditis. distant showering of emboli to other joints. MRSA bacteremia Right ankle hardware infection, s/p partial removal of hardware. Deeper hardware embedded. Bilateral UE hand abscess and tenosynovitis, septic arthritis s.p multiple debridements. Continue rifampin and dapto Plan for long-term IV antibiotics, rifampin for 6 weeks Likely will need halfway facility placement Continue oxycodone and Dilaudid for pain May still need further surgical intervention Hand surgeon following Podiatry following ID following Multiple surgeries thus far: - podiatry Dr. Reyes/Dr. Gamez on 02/26, 02/28, 03/04 - hand surgeon Dr. Bullock on 02/26, 02/28, 03/04, 03/08, 03/10 Anemia Most recent hemoglobin is 8.0 Follow CBC May need repeat transfusion if the trend is downward Last transfusion was one unit on 03/12/17 Continued present diet Acute Toxic/Metabolic Encephalopathy secondary to Sepsis Acute Alcohol Withdrawal Resolved Hypernatremia Resolved Hypokalemia Replace as needed Continue to monitor Hypertension Continue clonidine and Coreg Follow blood pressures Adjust as needed for control Mild Systolic CHF EF of 40-45% with global hypokinesis found on 02/28/17 Medical management to continue Continue beta amarjit Continue lisinopril THADDEUS possibly vanco induced Monitor renal function Avoid nephrotoxins Previous event was likely secondary to ATN Nephrology following Urinary retention Monitor urine output Hepatitis C Standard precautions DVT Prophylaxis Lovenox Problem Qualifiers (1) Sepsis: Kg Zaragoza MD Mar 26, 2017 13:49
[2017-03-26] MEDS: SODIUM CHLORIDE 0.9% IV SCH (14:06)
[2017-03-26] MEDS: DAPTOMYCIN IV SCH (14:06)
[2017-03-26 14:43] LABS: BACTERIA, URINE RARE /hpf; BLOOD, URINE TRACE (NEG); GLUCOSE,URINE NEG (NEG); KETONE, URINE NEG (NEG); NITRITE,URINE NEG (NEG); URINE COLOR LIGHT-YELLOW (YELLW/STRAW)
[2017-03-26 14:46] LABS: COMMENT (UR) CATH-CULTURE IND; CULTURE IF INDICATED CATH CULTURE IND
--- NOTE | 2017-03-26 15:54 | RADRPT ---
EXAM DATE/TIME: 03/26/2017 14:17 [facility] COMPARISON: CHEST SINGLE AP, March 25, 2017, 14:47. INDICATIONS : Short of breath. MEDICAL HISTORY : Hypertension. Hepatitis. SURGICAL HISTORY : None. ENCOUNTER: Subsequent ACUITY: 2 days PAIN SCORE: 0/10 LOCATION: Bilateral chest FINDINGS: The study is abnormal. There is increasing parenchymal opacity laterally in the left lung, in the le ft base and the right base. There is increasing pleural effusion on the right base with small right pleural effusion noted. Heart and vascularity are normal. CONCLUSION: Deterioration in the appearance of the chest with increasing parenchymal changes and infiltrate. Isaac Stevenson MD FACR on March 26, 2017 at 15:51 Board Certified Radiologist. This report was verified electronically.
[2017-03-26] MEDS ORDERED: FUROSEMIDE 20 MG/2 ML VIAL IV PUSH SCH (17:15)
--- NOTE | 2017-03-26 17:50 | HHI.IDPN ---
Subjective Subjective Remarks is a 61 y/o CM with PMHx of right foot hardware, hypertension, alcoholism, Hepatitis C who was admitted with sepsis, acute metabolic encephalopathy ? DTs. Removal of hardware from r. ankle 02/27. Noted to have a pocket of pus adjacent to and in contact with the hardware. Could not remove all of the wires per podiatry. Embedded in deep tissue. Culture form both index fingers has MRSA. R ankle culture - and distal fibula 02/26, 02/28 MRSA. Blood culture 02/24, 02/25, 02/27 - MRSA. 2D ECHO - No vegetations noted. Overnight events reviewed. Overnight fevers 100.1 F several times in last 24 hours post right BKA. No rash No diarrhea Wild cath changed placed on 03/17/17. Purulence noted on meatus. Antibiotics Dapto IV Lines Line sites with no e.o infection Past Medical History hypertension alcoholism Hepatitis C right foot surgery with hardware in place. right AKA Allergies: Coded Allergies: ciprofloxacin (Unverified Adverse Reaction, Intermediate, Dizziness, ) *MDRO Multi-Drug Resistant Organism (Verified Adverse Reaction, Unknown, ) MRSA (blood)+(urine) 02/24/17, (blood) 02/25/17, 02/27/17 (finger,ankle,leg) 02/26/17, 02/28/17 MRSA PCR screen positive 02/25/17 Objective . Vital Signs Date Time Temp Pulse Resp B/P (MAP) Pulse Ox O2 Delivery O2 Flow Rate FiO2 03/26/17 16:00 99.6 71 18 94/53 (67) 95 03/26/17 12:00 99.5 75 18 115/60 (78) 95 03/26/17 08:00 99.1 75 18 111/61 (78) 94 03/26/17 08:00 Room Air 03/26/17 04:00 Room Air 03/26/17 04:00 99.4 74 16 127/81 (96) 90 03/26/17 00:00 Room Air 03/26/17 00:00 100.0 77 18 107/65 (79) 91 03/25/17 22:42 99.6 75 19 101/56 (71) 93 03/25/17 20:40 99.2 75 17 132/66 (88) 95 03/25/17 20:00 Room Air 03/25/17 18:00 98 Room Air . Laboratory Tests Test 03/25/17 11:20 03/26/17 09:22 White Blood Count 12.3 TH/MM3 11.3 TH/MM3 Red Blood Count 2.69 MIL/MM3 2.51 MIL/MM3 Hemoglobin 7.4 GM/DL 6.7 GM/DL Hematocrit 23.0 % 21.7 % Mean Corpuscular Volume 85.5 FL 86.3 FL Mean Corpuscular Hemoglobin 27.7 PG 26.9 PG Mean Corpuscular Hemoglobin Concent 32.4 % 31.1 % Red Cell Distribution Width 16.2 % 16.7 % Platelet Count 179 TH/MM3 181 TH/MM3 Mean Platelet Volume 10.8 FL 10.3 FL Neutrophils (%) (Auto) 80.4 % 79.1 % Lymphocytes (%) (Auto) 10.1 % 11.9 % Monocytes (%) (Auto) 9.0 % 8.4 % Eosinophils (%) (Auto) 0.2 % 0.2 % Basophils (%) (Auto) 0.3 % 0.4 % Neutrophils # (Auto) 9.9 TH/MM3 9.0 TH/MM3 Lymphocytes # (Auto) 1.2 TH/MM3 1.3 TH/MM3 Monocytes # (Auto) 1.1 TH/MM3 1.0 TH/MM3 Eosinophils # (Auto) 0.0 TH/MM3 0.0 TH/MM3 Basophils # (Auto) 0.0 TH/MM3 0.0 TH/MM3 CBC Comment DIFF FINAL DIFF FINAL Differential Comment Laboratory Tests Test 03/25/17 11:20 03/25/17 21:02 03/26/17 00:30 Blood Urea Nitrogen 22 MG/DL Creatinine 0.99 MG/DL Random Glucose 154 MG/DL Total Protein 5.7 GM/DL Calcium Level 7.2 MG/DL Sodium Level 132 MEQ/L Potassium Level 4.2 MEQ/L Chloride Level 100 MEQ/L Carbon Dioxide Level 23.9 MEQ/L Anion Gap 8 MEQ/L Estimat Glomerular Filtration Rate 76 ML/MIN Protein Corrected Calcium 7.9 MG/DL Total Creatine Kinase 216 U/L B-Type Natriuretic Peptide 362 PG/ML Lactic Acid Level 4.6 mmol/L 0.9 mmol/L Microbiology Date/Time Source Procedure Growth Status 03/25/17 11:40 Blood Peripheral Aerobic Blood Culture - Preliminary NO GROWTH IN 1 DAY Resulted 03/25/17 11:40 Blood Peripheral Anaerobic Blood Culture - Preliminary NO GROWTH IN 1 DAY Resulted 03/25/17 11:30 Blood Peripheral Aerobic Blood Culture - Preliminary NO GROWTH IN 1 DAY Resulted 03/25/17 11:30 Blood Peripheral Anaerobic Blood Culture - Preliminary NO GROWTH IN 1 DAY Resulted 03/26/17 14:30 Urine Catheterized Urine Urine Culture Pending Received 03/25/17 17:45 Urine Catheterized Urine Urine Culture - Preliminary Gram Negative Marty Resulted Imaging Last Impressions Chest X-Ray 03/02/17 0000 Signed Impressions: Service Date/Time: Thursday, March 02, 2017 13:26 - CONCLUSION: Interval develop of a small left-sided pleural effusion. Pulmonary venous congestion. Edenilson Oviedo MD Lower Extremity CT 03/01/17 0000 Signed Impressions: Service Date/Time: Wednesday, March 01, 2017 11:12 - CONCLUSION: 1. No evidence of organized fluid collections to suggest an abscess. 2. Extensive soft tissue swelling surrounding the ankle and extending to the forefoot especially along the lateral aspect. 3. No erosive or destructive bone changes. 4. Bone defects compatible with previous excision device. Blake Rider MD Ankle X-Ray 02/26/17 0000 Signed Impressions: Service Date/Time: Sunday, February 26, 2017 17:15 - CONCLUSION: I see no retained surgical instruments. Isaac Stevenson MD FACR Abdomen X-Ray 02/26/17 0000 Signed Impressions: Service Date/Time: Monday, February 27, 2017 00:36 - CONCLUSION: Nasogastric tube within the stomach Harry Lucio MD Upper Extremity Ultrasound 02/25/17 1734 Signed Impressions: Service Date/Time: February 17:54 - CONCLUSION: There is a thin fluid collection within the focal area of soft tissue swelling 2nd digit. Oscar Cassidy MD Hand X-Ray 02/25/17 0000 Signed Impressions: Service Date/Time: February 18:59 - CONCLUSION: No gross bony abnormality. Oscar Cassidy MD Lower Extremity Ultrasound 02/24/17 0000 Signed Impressions: Service Date/Time: Friday, February 24, 2017 13:41 - CONCLUSION: Negative for deep venous thrombosis. Isaac Stevenson MD FACR Head CT 02/24/17 0000 Signed Impressions: Service Date/Time: Friday, February 24, 2017 16:08 - CONCLUSION: 1. No acute intracranial abnormality. 2. Probable large mucocele in the sphenoid sinus. Ty Hankins MD Abdomen/Pelvis CT 02/24/17 0000 Signed Impressions: Service Date/Time: Friday, February 24, 2017 16:16 - CONCLUSION: 1. Marked gaseous distension of large and small bowel most suggestive of ileus. 2. There is no free air. 3. 2.2 cm left adrenal mass. 4. Distended bladder. Isaac Stevenson MD FACR Physical Exam GENERAL: This is a well-nourished, well-developed patient, in no apparent distress. SKIN: No rashes, ecchymoses or lesions. Cool and dry. HEAD: Atraumatic. Normocephalic. No temporal or scalp tenderness. EYES: Pupils equal round and reactive. Extraocular motions intact. No scleral icterus. No injection or drainage. ENT: Nose without bleeding, purulent drainage or septal hematoma. Throat without erythema, tonsillar hypertrophy or exudate. Uvula midline. Airway patent. NECK: Trachea midline. Supple, nontender, no meningeal signs. CARDIOVASCULAR: Regular rate and rhythm without murmurs, gallops, or rubs. RESPIRATORY: Clear to auscultation. Breath sounds equal bilaterally. No wheezes , rales, or rhonchi. GASTROINTESTINAL: Abdomen soft, non-tender, nondistended. MUSCULOSKELETAL: Rt BKA site in dressing. NEUROLOGICAL: Awake, grossly non focal. 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 distant showering of emboli to other joints. MRSA bacteremia Right ankle hardware infection, s/p partial removal of hardware. Deeper hardware embedded. Bilateral UE hand abscess and tenosynovitis, septic arthritis s.p multiple debridements. Cath associated UTI. s/p wild change 03/26/17. GNR in urine. Acute renal failure: ? vanco induced. Improving. hypertension alcoholism Hepatitis C Recs Continue Dapto IV (ASP: ? Vanco induced renal failure). d/w Clinical pharmacist to dose at 8 mg/kg IV q48hrs. Continue Zosyn IV (Re: Cath associated UTI) Check CBC with diff, Cr, LFTs and CRP every week. To be ordered and followed by hospitalist. Follow cultures Follow clinically. d/w about new fever workup and Mment. covering for me this weekend. Case management note: Will need IV antibiotics for 6 weeks for endocarditis. Consider SNF placement as patient has alcoholism history and may not be compliant with medications/antibiotics. Sunshine Keene MD Mar 26, 2017 17:50
[2017-03-27] VITALS (7 sets, daily range): BP systolic 102–135; BP diastolic 54–77; PULSE 65–81; RESP 18–20; TEMP 97.6–99.9; O2SAT 95–98
[2017-03-27] MEDS: HYDROmorphone HCL PF 1 MG/ML VIAL IV PUSH PRN ×6 (01:30→22:54)
[2017-03-27] MEDS: METHOCARBAMOL 500 MG TAB PO SCH ×3 (05:41→22:53)
[2017-03-27] MEDS: cloNIDine HCL 0.3 MG TAB PO SCH ×3 (05:41→22:53)
[2017-03-27] MEDS: NS + KCL 20 MEQ INJ 1,000 ML IV SCH ×3 (05:52→22:52)
[2017-03-27] MEDS: PIPERACIL-TAZO 4.5 GM PREMIX 100 ML IV SCH ×3 (05:53→22:52)
[2017-03-27 08:42] LABS: AUTOMATED NEUTROPHIL # 7.7 TH/MM3 (1.8-7.7); BASOPHIL # 0.1 TH/MM3 (0-0.2); BASOPHIL % 0.5 % (0.0-2.0); EOSINOPHIL # 0.1 TH/MM3 (0-0.4); EOSINOPHIL % 0.6 % (0.0-4.0); HEMATOCRIT 29.9 % (39.0-51.0); HEMO FLAGS DIFF FINAL; LYMPH % 13.9 % (9.0-44.0); LYMPHOCYTE # 1.4 TH/MM3 (1.0-4.8); MEAN CELL VOLUME 87.2 FL (80.0-100.0); MEAN CORPUSCULAR HEMOGLOBIN 29.2 PG (27.0-34.0); MEAN CORPUSCULAR HGB CONC 33.5 % (32.0-36.0); MONO % 9.3 % (0.0-8.0); NEUT % 75.7 % (16.0-70.0); PLATELET COUNT 200 TH/MM3 (150-450); RED BLOOD COUNT 3.43 MIL/MM3 (4.50-5.90); WHITE BLOOD COUNT 10.2 TH/MM3 (4.0-11.0)
[2017-03-27] MEDS: MUPIROCIN 2% OINT 1 APPLIC/GM SYR NASAL SCH ×2 (08:46→22:57)
[2017-03-27] MEDS: THIAMINE HCL 100 MG TAB PO SCH (08:47)
[2017-03-27] MEDS: MULTIVITAMIN TAB PO SCH (08:47)
[2017-03-27] MEDS: LISINOPRIL 5 MG TAB PO SCH (08:47)
[2017-03-27] MEDS: CARVEDILOL 6.25 MG TAB PO SCH ×2 (08:48→22:53)
[2017-03-27 09:09] LABS: POTASSIUM 3.9 MEQ/L (3.5-5.1)
[2017-03-27 09:26] LABS: CALCIUM-PROTEIN CORRECTED 7.8 MG/DL (8.5-10.1)
[2017-03-27] MEDS: SODIUM CHLORIDE 0.9% IV SCH (12:13)
[2017-03-27] MEDS: DAPTOMYCIN IV SCH (12:13)
[2017-03-27] MEDS: ENOXAPARIN SODIUM 40 MG/0.4 ML SYRINGE SQ SCH (13:36)
--- NOTE | 2017-03-27 15:26 | HHI.PR ---
Subjective Remarks Follow up on MRSA endocarditis sepsis and bacteremia, right ankle hardware infection, bilateral upper extremity hand abscess and Pricila synovitis septic arthritis, catheter associated UTI acute renal failure hypertension alcoholism patient Is doing okay today, oral diet resumed after he pats speech, consider tapering to proceed if dietitian agreed Objective Vitals Vital Signs Date Time Temp Pulse Resp B/P (MAP) Pulse Ox O2 Delivery O2 Flow Rate FiO2 03/27/17 12:00 99.0 70 20 129/70 (89) 97 03/27/17 08:50 Room Air 03/27/17 08:00 99.3 73 20 135/77 (96) 97 03/27/17 04:00 99.3 65 18 129/71 (90) 95 03/27/17 01:52 99.9 69 18 118/67 95 03/27/17 00:12 98.9 78 20 102/54 (70) 98 03/26/17 21:40 Room Air 03/26/17 20:00 100.2 78 20 112/59 (76) 96 03/26/17 18:25 99.4 78 20 117/61 94 03/26/17 18:00 99.9 72 20 121/65 94 03/26/17 16:00 99.6 71 18 94/53 (67) 95 I/O 03/26/17 03/26/17 03/26/17 03/27/17 03/27/17 03/27/17 07:00 15:00 23:00 07:00 15:00 23:00 Intake Total 1100 ml 200 ml 482 ml 1744 ml Output Total 1350 ml 550 ml 500 ml Balance -250 ml 200 ml -68 ml 1244 ml Intake Oral 480 ml IV Total 1100 ml 200 ml Packed Cells 1122 ml Blood Product IV Normal Saline Flush 2 ml 622 ml Output Urine Total 1350 ml 550 ml 500 ml Result Diagram: 03/27/1782603/27/17826 Objective Remarks GENERAL: This is a well-nourished, well-developed patient, in no apparent distress. SKIN: No rashes, warm and dry HEAD: Atraumatic. Normocephalic. EYES: Pupils equal round and reactive. Extraocular motions intact. No scleral icterus. ENT: Nose without bleeding, or drainage, Airway patent. NECK: Trachea midline. Supple CARDIOVASCULAR: Regular rate and rhythm without murmurs, gallops, or rubs. RESPIRATORY: Fair air entry bilaterally. No wheezes, rales, or rhonchi. GASTROINTESTINAL: Abdomen soft, non-tender, nondistended. Positive bowel sounds MUSCULOSKELETAL:No cyanosis, or edema. Right and left arms are bandaged home right arm in lifting sling. Right foot is in bandage. NEUROLOGICAL: Awake and alert. Moves all extremity. Normal speech.no focal neurological deficit : Scrotum swelling Procedures 03/10/2017 - Dr. Bullock exploration, wash, excisional debridement extensor tenosynovium right wrist/forearm/hand 03/08/17 - Dr. Bullock- exploration, wash, excisional debridement skin, subcutaneous tissue, extensor tenosynovitis right wrist and hand. Findings: necrotic tissue, minimal purulence, extensor tenosynovitis right wrist/hand 03/04/17 - Dr Gamez - Right leg and incision and drainage. Right foot delayed primary closure x3 03/04/17 - Dr. Bullock - Extensor tenosynovectomy second, third, fourth extensor compartments right wrist and excisional debridement wash index finger metacarpal phalangeal joint, excisional wash and excisional debridement left hand. 02/28/17 - Dr. Reyes - Right ankle wound debridement and washout. Implantation of antibiotic vancomycin beads. 02/28/17 - Dr. Bullock - Exploration, wash, excisional debridement index finger metacarpophalangeal joint right hand; Exploration, wash, excisional debridement metacarpophalangeal joint left index finger; Exploration, wash, excisional debridement extensor pollicis longus tendon right thumb and hand. 02/26/17 - Dr. Reyes - Right ankle incision and drainage, arthrotomy, removal infected hardware, bone biopsy. 02/26/17 - Dr. Bullock - Exploration, incision and drainage right hand abscess, Arthrotomy wash metacarpal phalangeal joint right index finger, Arthrotomy wash metacarpal phalangeal joint left index finger. A/P Problem List: (1) Sepsis ICD Code: A41.9 - Sepsis, unspecified organism Status: Acute (2) Right foot infection ICD Code: L08.9 - Local infection of the skin and subcutaneous tissue, unspecified Status: Acute (3) Encephalopathy ICD Code: G93.40 - Encephalopathy, unspecified Status: Acute (4) Alcoholism ICD Code: F10.20 - Alcohol dependence, uncomplicated Status: Acute Assessment and Plan 61-year-old male admitted secondary to numerous infections including bilateral hands and right ankle. Previous history of right ankle. Patient also had encephalopathy secondary to infection and alcohol withdrawal time of admit. Encephalopathy has improved. Continued treatments of infections are ongoing. Status post I&D of right elbow yesterday. Continue wound care. Robaxin started for muscle spasms. 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 distant showering of emboli to other joints. MRSA bacteremia Right ankle hardware infection, s/p partial removal of hardware. Deeper hardware embedded. Bilateral UE hand abscess and tenosynovitis, septic arthritis s.p multiple debridements. Recent fever on 03/25 (resolved) CXR showed possible b/l infiltrate but no clinical respiratory symptoms, UTI with + UA , lactic acidosis (improved), on zosyn with dapto Antibiotic per ID Plan for long-term IV antibiotics, rifampin for 6 weeks Likely will need care home facility placement Continue oxycodone and Dilaudid for pain May still need further surgical intervention Hand surgeon following Podiatry following ID following Multiple surgeries thus far: - podiatry Dr. Reyes/Dr. Gamez on 02/26, 02/28, 03/04 - hand surgeon Dr. Bullock on 02/26, 02/28, 03/04, 03/08, 03/10 Anemia Most recent hemoglobin is 8.0 Follow CBC Status post blood transfusion Acute Toxic/Metabolic Encephalopathy secondary to Sepsis Acute Alcohol Withdrawal Resolved Hypernatremia Resolved Hypokalemia Replace as needed Continue to monitor Hypertension Continue clonidine and Coreg, cardiology initiate low dose lisinopril, monitor renal function Follow blood pressures Adjust as needed for control Mild Systolic CHF Scrotal edema EF of 40-45% with global hypokinesis found on 02/28/17 Continue beta amarjit Following BMP, consider initiating diuresis, (patient recently had fever and lactic acidosis) THADDEUS possibly vanco induced Monitor renal function Avoid nephrotoxins Previous event was likely secondary to ATN Nephrology following Urinary retention Monitor urine output Hepatitis C Standard precautions Dysphagia: Improved patient on regular diet Dietitian to assess tapering tube feed DVT Prophylaxis Lovenox Problem Qualifiers (1) Sepsis: Kg Zaragoza MD Mar 27, 2017 15:26
[2017-03-27 19:05] LABS: HEMATOCRIT 32.1 % (39.0-51.0); REVIEW FLAG FINAL
[2017-03-27] MEDS: PANTOPRAZOLE SODIUM 40 MG VIAL IV PUSH SCH (22:53)
[2017-03-28] VITALS: BP 99/66; PULSE 74; RESP 20; TEMP 99.1; O2SAT 95
[2017-03-28] MEDS: HYDROmorphone HCL PF 1 MG/ML VIAL IV PUSH PRN ×5 (02:12→20:48)
[2017-03-28 04:00] VITALS: BP 119/67; PULSE 67; RESP 20; TEMP 98.7; O2SAT 96
[2017-03-28] MEDS: PIPERACIL-TAZO 4.5 GM PREMIX 100 ML IV SCH ×3 (04:42→20:47)
[2017-03-28] MEDS: cloNIDine HCL 0.3 MG TAB PO SCH ×3 (05:22→21:02)
[2017-03-28] MEDS: METHOCARBAMOL 500 MG TAB PO SCH ×3 (05:22→21:02)
[2017-03-28 08:00] VITALS: BP 113/68; PULSE 63; RESP 18; TEMP 98.1; O2SAT 98
[2017-03-28] MEDS: LISINOPRIL 5 MG TAB PO SCH (09:26)
[2017-03-28] MEDS: MULTIVITAMIN TAB PO SCH (09:26)
[2017-03-28] MEDS: THIAMINE HCL 100 MG TAB PO SCH (09:26)
[2017-03-28] MEDS: CARVEDILOL 6.25 MG TAB PO SCH ×2 (09:26→20:53)
[2017-03-28] MEDS: MUPIROCIN 2% OINT 1 APPLIC/GM SYR NASAL SCH ×2 (09:27→20:50)
[2017-03-28 12:00] VITALS: BP 124/70; PULSE 69; RESP 18; TEMP 98.2; O2SAT 94
[2017-03-28] MEDS: DAPTOMYCIN IV SCH (12:08)
[2017-03-28] MEDS: SODIUM CHLORIDE 0.9% IV SCH (12:08)
--- NOTE | 2017-03-28 13:28 | PD.ORT.PN ---
Subjective Pain Scale: no real pain in hands Subjective Remarks both hands much improved and feeling better and hungry and eating now Objective Vitals Vital Signs Date Time Temp Pulse Resp B/P (MAP) Pulse Ox O2 Delivery O2 Flow Rate FiO2 03/28/17 12:00 98.2 69 18 124/70 (88) 94 03/28/17 11:17 20 03/28/17 10:30 18 03/28/17 08:00 98.1 63 18 113/68 (83) 98 03/28/17 04:00 98.7 67 20 119/67 (84) 96 03/28/17 00:00 99.1 74 20 99/66 (77) 95 03/27/17 22:00 Room Air 03/27/17 20:00 99.0 74 20 130/73 (92) 97 03/27/17 16:00 97.6 81 20 113/67 (82) 97 I/O 03/27/17 03/27/17 03/27/17 03/28/17 03/28/17 03/28/17 07:00 15:00 23:00 07:00 15:00 23:00 Intake Total 1744 ml 960 ml 2087 ml Output Total 500 ml 1800 ml 1000 ml Balance 1244 ml -840 ml 1087 ml Intake Oral 960 ml 480 ml IV Total 1607 ml Packed Cells 1122 ml Blood Product IV Normal Saline Flush 622 ml Output Urine Total 500 ml 1800 ml 1000 ml # Bowel Movements 0 Result Diagram: 03/27/17 1849 03/27/17 0827 Objective Remarks right wrist with minimal drainage and just serosanguinous drainage on the dressing, compartments soft and compressible, no erythema and nearly full AROM of fingers other wounds dry and healing right hand and forearm; left hand wound healed and full AROM of fingers and wrist on the left Assessment & Plan Problem List: (1) Infectious tenosynovitis of right wrist extensor ICD Codes: M65.131 - Other infective (teno)synovitis, right wrist Status: Acute Plan: continue IV antibiotics per ID Wound right wrist cleaned with peroxide and redressed with sterile dry 4x4s, Gillian, Levy and velcro right wrist splint reapplied Following for Dr. Bullock and will see the patient about weekly or biweekly at this point. He is eating and as nutrition improves, his wounds should as well. (2) Abscess of right hand including fingers ICD Codes: L02.511 - Cutaneous abscess of right hand Status: Acute (3) septic arthritis metacarpophalangeal joint right index finger Status: Acute (4) septic arthritis metacarpophalangeal joint left index finger Status: Acute (5) Abscess of left hand including fingers ICD Codes: L02.512 - Cutaneous abscess of left hand Status: Acute (6) Hepatitis C, chronic ICD Codes: B18.2 - Chronic viral hepatitis C Status: Chronic (7) Alcoholism ICD Codes: F10.20 - Alcohol dependence, uncomplicated Status: Chronic Assessment and Plan see above Plan Shauna Walker MD Mar 28, 2017 13:28
[2017-03-28] MEDS: ENOXAPARIN SODIUM 40 MG/0.4 ML SYRINGE SQ SCH (13:30)
--- NOTE | 2017-03-28 13:47 | HHI.PR ---
Subjective Remarks Follow up on MRSA endocarditis sepsis and bacteremia, right ankle hardware infection, bilateral upper extremity hand abscess and Pricila synovitis septic arthritis, catheter associated UTI acute renal failure hypertension alcoholism patient Is doing okay today, oral diet resumed after he pats speech, consider tapering to proceed if dietitian agreed - NO NEW COMPLAINTS CONTINUE ANTIBIOTICS AND WOUND CARE DW RN AND PATIENT Objective Vitals Vital Signs Date Time Temp Pulse Resp B/P (MAP) Pulse Ox O2 Delivery O2 Flow Rate FiO2 03/28/17 12:00 98.2 69 18 124/70 (88) 94 03/28/17 11:17 20 03/28/17 10:30 18 03/28/17 08:00 98.1 63 18 113/68 (83) 98 03/28/17 04:00 98.7 67 20 119/67 (84) 96 03/28/17 00:00 99.1 74 20 99/66 (77) 95 03/27/17 22:00 Room Air 03/27/17 20:00 99.0 74 20 130/73 (92) 97 03/27/17 16:00 97.6 81 20 113/67 (82) 97 I/O 03/27/17 03/27/17 03/27/17 03/28/17 03/28/17 03/28/17 07:00 15:00 23:00 07:00 15:00 23:00 Intake Total 1744 ml 960 ml 2087 ml Output Total 500 ml 1800 ml 1000 ml Balance 1244 ml -840 ml 1087 ml Intake Oral 960 ml 480 ml IV Total 1607 ml Packed Cells 1122 ml Blood Product IV Normal Saline Flush 622 ml Output Urine Total 500 ml 1800 ml 1000 ml # Bowel Movements 0 Result Diagram: 03/27/17 1849 03/27/17 0827 Other Results Laboratory Tests Test 03/25/17 17:45 03/25/17 21:02 03/26/17 00:30 03/26/17 09:22 Urine Color YELLOW Urine Turbidity HAZY Urine pH 6.5 Urine Specific [place] 1.012 Urine Protein 30 mg/dL Urine Glucose (UA) NEG mg/dL Urine Ketones NEG mg/dL Urine Occult Blood SMALL Urine Nitrite POS Urine Bilirubin NEG Urine Urobilinogen LESS THAN 2.0 MG/DL Urine Leukocyte Esterase LARGE Urine RBC 4 /hpf Urine WBC 86 /hpf Urine WBC Clumps RARE Urine Transitional Epithelial Cells 1 /hpf Urine Amorphous Sediment RARE Urine Bacteria RARE /hpf Microscopic Urinalysis Comment CATH-CULTURE IND Lactic Acid Level 4.6 mmol/L 0.9 mmol/L White Blood Count 11.3 TH/MM3 Red Blood Count 2.51 MIL/MM3 Hemoglobin 6.7 GM/DL Hematocrit 21.7 % Mean Corpuscular Volume 86.3 FL Mean Corpuscular Hemoglobin 26.9 PG Mean Corpuscular Hemoglobin Concent 31.1 % Red Cell Distribution Width 16.7 % Platelet Count 181 TH/MM3 Mean Platelet Volume 10.3 FL Neutrophils (%) (Auto) 79.1 % Lymphocytes (%) (Auto) 11.9 % Monocytes (%) (Auto) 8.4 % Eosinophils (%) (Auto) 0.2 % Basophils (%) (Auto) 0.4 % Neutrophils # (Auto) 9.0 TH/MM3 Lymphocytes # (Auto) 1.3 TH/MM3 Monocytes # (Auto) 1.0 TH/MM3 Eosinophils # (Auto) 0.0 TH/MM3 Basophils # (Auto) 0.0 TH/MM3 CBC Comment DIFF FINAL Differential Comment Test 03/26/17 14:30 03/27/17 08:27 03/27/17 18:49 Urine Color LIGHT-YELLOW Urine Turbidity CLEAR Urine pH 7.0 Urine Specific [place] 1.007 Urine Protein NEG mg/dL Urine Glucose (UA) NEG mg/dL Urine Ketones NEG mg/dL Urine Occult Blood TRACE Urine Nitrite NEG Urine Bilirubin NEG Urine Urobilinogen LESS THAN 2.0 MG/DL Urine Leukocyte Esterase LARGE Urine RBC 2 /hpf Urine WBC 35 /hpf Urine Bacteria RARE /hpf Microscopic Urinalysis Comment CATH-CULTURE IND White Blood Count 10.2 TH/MM3 Red Blood Count 3.43 MIL/MM3 Hemoglobin 10.0 GM/DL 10.6 GM/DL Hematocrit 29.9 % 32.1 % Mean Corpuscular Volume 87.2 FL Mean Corpuscular Hemoglobin 29.2 PG Mean Corpuscular Hemoglobin Concent 33.5 % Red Cell Distribution Width 16.0 % Platelet Count 200 TH/MM3 Mean Platelet Volume 10.1 FL Neutrophils (%) (Auto) 75.7 % Lymphocytes (%) (Auto) 13.9 % Monocytes (%) (Auto) 9.3 % Eosinophils (%) (Auto) 0.6 % Basophils (%) (Auto) 0.5 % Neutrophils # (Auto) 7.7 TH/MM3 Lymphocytes # (Auto) 1.4 TH/MM3 Monocytes # (Auto) 0.9 TH/MM3 Eosinophils # (Auto) 0.1 TH/MM3 Basophils # (Auto) 0.1 TH/MM3 CBC Comment DIFF FINAL Differential Comment Blood Urea Nitrogen 18 MG/DL Creatinine 1.09 MG/DL Random Glucose 108 MG/DL Total Protein 6.4 GM/DL Calcium Level 7.4 MG/DL Sodium Level 130 MEQ/L Potassium Level 3.9 MEQ/L Chloride Level 98 MEQ/L Carbon Dioxide Level 24.0 MEQ/L Anion Gap 8 MEQ/L Estimat Glomerular Filtration Rate 68 ML/MIN Protein Corrected Calcium 7.8 MG/DL Imaging Last Impressions Chest X-Ray 03/26/17 0000 Signed Impressions: Service Date/Time: Sunday, March 26, 2017 14:17 - CONCLUSION: Deterioration in the appearance of the chest with increasing parenchymal changes and infiltrate. Isaac Stevenson MD FACR Tumor Localization 03/22/17 0000 Signed Impressions: Service Date/Time: Wednesday, March 22, 2017 13:03 - CONCLUSION: Nondiagnostic examination secondary to patient refusal Harry Lucio MD Abdomen X-Ray 03/08/17 0000 Signed Impressions: Service Date/Time: Wednesday, March 08, 2017 10:30 - CONCLUSION: Nonspecific, negative for obstruction or ileus. Isaac Stevenson MD FACR Lower Extremity CT 03/01/17 0000 Signed Impressions: Service Date/Time: Wednesday, March 01, 2017 11:12 - CONCLUSION: 1. No evidence of organized fluid collections to suggest an abscess. 2. Extensive soft tissue swelling surrounding the ankle and extending to the forefoot especially along the lateral aspect. 3. No erosive or destructive bone changes. 4. Bone defects compatible with previous excision device. Blake Rider MD Ankle X-Ray 02/26/17 0000 Signed Impressions: Service Date/Time: Sunday, February 26, 2017 17:15 - CONCLUSION: I see no retained surgical instruments. Isaac Stevenson MD FACR Upper Extremity Ultrasound 02/25/17 [id number] Signed Impressions: Service Date/Time: February 17:54 - CONCLUSION: There is a thin fluid collection within the focal area of soft tissue swelling 2nd digit. Oscar Cassidy MD Hand X-Ray 02/25/17 0000 Signed Impressions: Service Date/Time: February 18:59 - CONCLUSION: No gross bony abnormality. Oscar Cassidy MD Lower Extremity Ultrasound 02/24/17 0000 Signed Impressions: Service Date/Time: Friday, February 24, 2017 13:41 - CONCLUSION: Negative for deep venous thrombosis. Isaac Stevenson MD FACR Head CT 02/24/17 0000 Signed Impressions: Service Date/Time: Friday, February 24, 2017 16:08 - CONCLUSION: 1. No acute intracranial abnormality. 2. Probable large mucocele in the sphenoid sinus. Ty Hankins MD Abdomen/Pelvis CT 02/24/17 0000 Signed Impressions: Service Date/Time: Friday, February 24, 2017 16:16 - CONCLUSION: 1. Marked gaseous distension of large and small bowel most suggestive of ileus. 2. There is no free air. 3. 2.2 cm left adrenal mass. 4. Distended bladder. Isaac Stevenson MD FACR Objective Remarks GENERAL: This is a well-nourished, well-developed patient, in no apparent distress. SKIN: No rashes, warm and dry HEAD: Atraumatic. Normocephalic. EYES: Pupils equal round and reactive. Extraocular motions intact. No scleral icterus. TONGUE MIDLINE- ORAL MUCOSA MOIST ENT: Nose without bleeding, or drainage, Airway patent. NECK: Trachea midline. Supple CARDIOVASCULAR: Regular rate and rhythm without murmurs, gallops, or rubs. S1, S2 NO S3 OR S4 NO HEAVE RESPIRATORY: Fair air entry bilaterally. No wheezes, rales, or rhonchi. GASTROINTESTINAL: Abdomen soft, non-tender, nondistended. Positive bowel sounds GROIN SWOLLEN SCROTAL AREA-ELEVATED WITH BATH TOWEL- SANCHEZ IN PLACE MUSCULOSKELETAL:No cyanosis, or edema. Right and left arms are bandaged home right arm in lifting sling. Right foot is in bandage. NEUROLOGICAL: Awake and alert. Moves all extremity. Normal speech.no focal neurological deficit : Scrotum swelling Procedures 03/10/2017 - Dr. Bullock exploration, wash, excisional debridement extensor tenosynovium right wrist/forearm/hand 03/08/17 - Dr. Bullock- exploration, wash, excisional debridement skin, subcutaneous tissue, extensor tenosynovitis right wrist and hand. Findings: necrotic tissue, minimal purulence, extensor tenosynovitis right wrist/hand 03/04/17 - Dr Gamez - Right leg and incision and drainage. Right foot delayed primary closure x3 03/04/17 - Dr. Bullock - Extensor tenosynovectomy second, third, fourth extensor compartments right wrist and excisional debridement wash index finger metacarpal phalangeal joint, excisional wash and excisional debridement left hand. 02/28/17 - Dr. Reyes - Right ankle wound debridement and washout. Implantation of antibiotic vancomycin beads. 02/28/17 - Dr. Bullock - Exploration, wash, excisional debridement index finger metacarpophalangeal joint right hand; Exploration, wash, excisional debridement metacarpophalangeal joint left index finger; Exploration, wash, excisional debridement extensor pollicis longus tendon right thumb and hand. 02/26/17 - Dr. Reyes - Right ankle incision and drainage, arthrotomy, removal infected hardware, bone biopsy. 02/26/17 - Dr. Bullock - Exploration, incision and drainage right hand abscess, Arthrotomy wash metacarpal phalangeal joint right index finger, Arthrotomy wash metacarpal phalangeal joint left index finger. Medications and IVs Inpatient Medications Acetaminophen (Ofirmev Inj) 650 mg Q6H PRN IV TEMP >101 Last administered on 20:12; Start 02/25/17 at 21:00 Acetaminophen (Tylenol) 650 mg Q4H PRN PO fever Last administered on 03/25/17 10:02; Start 03/25/17 at 10:00 Bisacodyl (Dulcolax Supp) 10 mg DAILY PRN RECTAL SEVERE CONSITIPATION; Start at 21:00 Carvedilol (Coreg) 6.25 mg Q12HR PO Last administered on 03/28/17 09:26; Start 03/03/17 at 21:00 Cefepime HCl 2000 mg/Sodium Chloride 100 ml @ 200 mls/hr Q12H IV Last administered on 02/27/17 05:51; Start 02/25/17 at 07:00; Stop 02/27/17 at 14:53; Status DC Chlordiazepoxide (Librium) 25 mg Q8H PO ; Start 02/25/17 at 17:00; Stop 02/25/17 at 20:24; Status DC Chlorhexidine Gluconate (Chlorhexidine 2% Cloth) 3 pack UNSCH PRN TOPICAL HYGIENIC CARE; Start 02/26/17 at 07:15; Stop 03/03/17 at 07:07; Status DC Clonidine (Catapres) 0.3 mg Q8HR PO Last administered on 03/28/17 13:30; Start 02/26/17 at 22:11 Daptomycin 450 mg/ Sodium Chloride 100 ml @ 200 mls/hr Q24H IV Last administered on 03/05/17 13:41; Start 02/28/17 at 12:00; Stop 03/05/17 at 18:00 ; Status DC Daptomycin 550 mg/ Sodium Chloride 100 ml @ 200 mls/hr Q24H IV Last administered on 03/28/17 12:08; Start 03/06/17 at 12:00 Dexmedetomidine HCl 200 mcg/ Sodium Chloride 52 ml @ 0 mls/hr TITRATE IV Last administered on 02/27/17 13:55; Start 02/25/17 at 17:30; Stop 03/09/17 at 23:34; Status DC Dextrose 1,000 ml @ 84 mls/hr [id number] IV Last administered on 03/11/17 21:24 ; Start 03/09/17 at 23:45; Stop 03/11/17 at 23:38; Status DC Diazepam (Valium) 5 mg Taper DAILY PO Last administered on 03/06/17 09:49; Start 02/26/17 at 22:15; Stop 03/06/17 at 22:14; Status DC Diphenhydramine HCl (Benadryl) 25 mg Q4H PRN PO SEE LABEL COMMENTS; Start 03/12 at 10:15; Stop 03/12/17 at 14:16; Status DC Docusate Sodium (Colace Liq) 100 mg Q12HR PO Last administered on 03/09/17 09: 30; Start 03/06/17 at 21:15; Status Future Hold Enoxaparin Sodium (Lovenox Inj) 40 mg Q24H SQ Last administered on 03/28/17 13: 30; Start 03/10/17 at 13:00; Status Future hold Flumazenil (Romazicon Inj) 0.2 mg Q1M PRN IV PUSH SEE LABEL COMMENTS; Start 02/25/17 at 09:15 Furosemide (Lasix Inj) 10 mg UNSCH X1 IV PUSH Last administered on 03/27/17 01 :31; Start 03/26/17 at 17:15; Stop 03/26/17 at 23:59; Status DC Gentamicin Sulfate 70 mg/ Sodium Chloride 101.75 ml @ 100 mls/ hr ONCE ONCE IV Last administered on 02/25/17 18:51; Start 02/25/17 at 18:30; Stop 02/25/17 at 19:31; Status DC Hydromorphone HCl (Dilaudid Pf Inj) 0.5 mg Q3H PRN IV PUSH pain 6-10 or not taking po Last administered on 03/28/17 10:23; Start 02/28/17 at 07:45 IV Flush (NS Flush) 2 ml UNSCH PRN IV FLUSH FLUSH AFTER USING IV ACCESS Last administered on 02/24/17 13:38; Start 02/24/17 at 13:45 Labetalol HCl (Trandate Inj) 10 mg Q6H PRN IV PUSH SBP >165; Start 02/25/17 at 23:15 Lactulose (Lactulose Liq) 30 ml DAILY PRN NG SEVERE CONSITIPATION Last administered on 03/07/17 18:45; Start 03/06/17 at 21:00 Lidocaine HCl (Xylocaine 1% Inj) 10 ml ONCE@0700 ONCE OTHER ; Start 03/13/17 at 07:00; Stop 03/13/17 at 07:01; Status DC Lisinopril (Prinivil) 2.5 mg DAILY PO Last administered on 03/28/17 09:26; Start 03/09/17 at 09:00 Lorazepam (Ativan Inj) 2 mg Q15M PRN IV PUSH CIWA > 20 Last administered on 02/26 06:25; Start 02/25/17 at 09:15; Stop 02/28/17 at 07:44; Status DC Lorazepam (Ativan) 2 mg Q2H PRN PO CIWA 11-14; Start 02/25/17 at 09:15; Stop 02/28/17 at 07:44; Status DC Magnesium Oxide (Mag-Ox) 800 mg UNSCH PRN PO For Magnesium 1.2 - 1.6 mg/dL; Start 02/25/17 at 22:45; Stop 03/01/17 at 23:53; Status DC Magnesium Sulfate 2 gm/Sodium Chloride 100 ml @ 50 mls/hr UNSCH PRN IV For Magnesium 1.2 - 1.6 mg/dL; Start 02/25/17 at 22:45; Stop 03/01/17 at 23:53; Status DC Magnesium Sulfate 4 gm/Sodium Chloride 100 ml @ 50 mls/hr UNSCH PRN IV For Magnesium 0.9 - 1.1 mg/dL; Start 02/25/17 at 22:45; Stop 03/01/17 at 23:53; Status DC Methocarbamol (Robaxin) 500 mg Q8HR PO Last administered on 03/28/17 13:30; Start 03/19/17 at 14:00 Miscellaneous (Pill Splitter) 1 ea UNSCH PRN OTHER SEE LABEL COMMENTS; Start at 21:15 Miscellaneous Information ALL NURSING DEPARTME... UNSCH PRN .XX SEE LABEL COMMENTS; Start 03/24/17 at 14:52; Stop 03/25/17 at 14:51; Status DC Multivitamins (Theragran) 1 tab DAILY PO Last administered on 03/28/17 09:26; Start 02/26/17 at 09:00 Mupirocin (Bactroban Nasal 2% Oint) 1 applic BID NASAL Last administered on 03/28 09:27; Start 02/26/17 at 09:00 Ondansetron HCl (Zofran Inj) 4 mg Q8HR PRN IV PUSH NAUSEA; Start 02/24/17 at 18: 00 Oxycodone HCl (Roxicodone) 5 mg Q4H PRN PO pain 1-5 Last administered on 09:26; Start 02/28/17 at 07:45 Pantoprazole Sodium (Protonix Inj) 40 mg Q24H IV PUSH Last administered on 22:53; Start 02/26/17 at 00:00 Pharmacy Profile Note 0 ml @ 0 mls/hr UNSCH OTHER ; Start 02/24/17 at 20:15; Stop 03/02/17 at 13:23; Status DC Piperacillin Sod/ Tazobactam Sod 100 ml @ 200 mls/hr Q8H IV Last administered on 03/28/17 12:09; Start 03/25/17 at 20:00 Polyethylene Glycol/ Electrolytes (Colyte Liq) 4,000 ml ONCE ONCE PO Last administered on 03/15/17 17:19; Start 03/15/17 at 16:45; Stop 03/15/17 at 16:48 ; Status DC Potassium Chloride 20 meq/ Sodium Chloride 38.5 meq/Sterile Water 1,010 ml @ 55 mls/hr [id number] IV Last administered on 03/09/17 22:51; Start 03/03/17 at 11: 00; Stop 03/09/17 at 23:36; Status DC Potassium Chloride/Sodium Chloride 1,000 ml @ 75 mls/hr [id number] IV Last administered on 03/27/17 22:52; Start 03/13/17 at 11:30 Potassium Phosphate (K-Phos) 2,000 mg UNSCH PRN PO/TUBE SEE LABEL COMMENTS; Start 02/25/17 at 22:45; Stop 03/01/17 at 23:53; Status DC Potassium Phosphate 30 mmol/ Sodium Chloride 260 ml @ 42 mls/hr UNSCH PRN IV SEE LABEL COMMENTS; Start 02/25/17 at 22:45; Stop 03/01/17 at 23:53; Status DC Potassium Bicarb/ Potassium Chloride (K-Lyte Cl Eff) 50 meq UNSCH PRN PO For Potassium 3.3 - 3.5 mEq/L; Start 02/25/17 at 22:45; Stop 03/01/17 at 23:53; Status DC Potassium Chloride 100 ml @ 50 mls/hr Q2H IV Last administered on 03/12/17 13 :25; Start 03/12/17 at 11:00; Stop 03/12/17 at 14:59; Status DC Propofol (Diprivan 200 Mg/20 ml Inj) 100 mg ONCE ONCE IV PUSH ; Start at 15:00; Stop 03/16/17 at 15:01; Status DC Rifampin (Rifampin) 300 mg Q12HR PO Last administered on 03/23/17 08:42; Start 03/02/17 at 21:00; Stop 03/23/17 at 18:40; Status DC Rifampin 300 mg/ Sodium Chloride 100 ml @ 100 mls/hr Q12H IV Last administered on 03/02/17 14:41; Start 02/27/17 at 15:00; Stop 03/02/17 at 16:41; Status DC Sodium Biphosphate/ Sodium Phosphate (Fleets Enema (Adult)) 133 ml ONCE ONCE RECTAL Last administered on 03/17/17 09:49; Start 03/17/17 at 08:00; Stop at 08:01; Status DC Sodium Chloride 250 ml @ 15 mls/hr ONCE ONCE IV Last administered on 21:30; Start 03/13/17 at 20:00; Stop 03/14/17 at 12:39; Status DC Sodium Phosphate 30 mmol/Sodium Chloride 250 ml @ 42 mls/hr UNSCH PRN IV For Phosphorus < 2.5 mg/dL Last administered on 02/26/17 23:19; Start 02/25/17 at 22: 45; Stop 03/01/17 at 23:53; Status DC Thiamine HCl (Vitamin B1) 100 mg DAILY PO Last administered on 03/28/17 09:26; Start 02/25/17 at 09:00 Vancomycin HCl 1000 mg/Sodium Chloride 250 ml @ 250 mls/hr ONCE STAT IV Last administered on 02/24/17 15:49; Start 02/24/17 at 15:35; Stop 02/24/17 at 16:34; Status DC Vancomycin HCl 1250 mg/Sodium Chloride 262.5 ml @ 250 mls/hr Q12H IV Last administered on 03/02/17 09:33; Start 02/26/17 at 22:00; Stop 03/02/17 at 13:23; Status DC Vancomycin HCl 1500 mg/Sodium Chloride 515 ml @ 257.5 mls/ hr Q12H IV Last administered on 02/26/17 09:42; Start 02/25/17 at 22:00; Stop 02/26/17 at 12:06; Status DC Water (Free Water) 300 ml Q4HR G-TUBE Last administered on 03/02/17 20:00; Start 02/28/17 at 08:00; Stop 03/02/17 at 23:07; Status DC Urinary Catheter: Yes Assessment to: Continue Sanchez insert reason: Obstruction/Retention A/P Problem List: (1) Sepsis ICD Code: A41.9 - Sepsis, unspecified organism Status: Acute (2) Right foot infection ICD Code: L08.9 - Local infection of the skin and subcutaneous tissue, unspecified Status: Acute (3) Encephalopathy ICD Code: G93.40 - Encephalopathy, unspecified Status: Acute (4) Alcoholism ICD Code: F10.20 - Alcohol dependence, uncomplicated Status: Chronic Assessment and Plan 61-year-old male admitted secondary to numerous infections including bilateral hands and right ankle. Previous history of right ankle. Patient also had encephalopathy secondary to infection and alcohol withdrawal time of admit. Encephalopathy has improved. Continued treatments of infections are ongoing. Status post I&D of right elbow. Continue wound care. Robaxin started for muscle spasms. 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 distant showering of emboli to other joints. MRSA bacteremia Right ankle hardware infection, s/p partial removal of hardware. Deeper hardware embedded. Bilateral UE hand abscess and tenosynovitis, septic arthritis s.p multiple debridements. Recent fever on 03/25 (resolved) CXR showed possible b/l infiltrate but no clinical respiratory symptoms, UTI with + UA , lactic acidosis (improved), on zosyn with dapto Antibiotic per ID Plan for long-term IV antibiotics, rifampin for 6 weeks Likely will need fpc facility placement Continue oxycodone and Dilaudid for pain May still need further surgical intervention Hand surgeon following Podiatry following ID following Multiple surgeries thus far: - podiatry Dr. Reyes/Dr. Gamez on 02/26, 02/28, 03/04 - hand surgeon Dr. Bullock on 02/26, 02/28, 03/04, 03/08, 03/10 Anemia Most recent hemoglobin is 8.0 Follow CBC Status post blood transfusion Acute Toxic/Metabolic Encephalopathy secondary to Sepsis Acute Alcohol Withdrawal Resolved Hypernatremia Resolved Hypokalemia Replace as needed Continue to monitor Hypertension Continue clonidine and Coreg, cardiology initiate low dose lisinopril, monitor renal function Follow blood pressures Adjust as needed for control Mild Systolic CHF Scrotal edema EF of 40-45% with global hypokinesis found on 02/28/17 Continue beta amarjit Following BMP, consider initiating diuresis, (patient recently had fever and lactic acidosis) THADDEUS possibly vanco induced Monitor renal function Avoid nephrotoxins Previous event was likely secondary to ATN Nephrology following Urinary retention Monitor urine output Hepatitis C Standard precautions Dysphagia: Improved patient on regular diet Dietitian to assess tapering tube feed DVT Prophylaxis Lovenox AM LABS CONTINUE CURRENT CARE Problem Qualifiers (1) Sepsis: Isaac Pink DO Mar 28, 2017 13:47
[2017-03-28] MEDS: NS + KCL 20 MEQ INJ 1,000 ML IV SCH (14:48)
[2017-03-28 16:00] VITALS: BP 120/75; PULSE 70; RESP 18; TEMP 98; O2SAT 96
[2017-03-28 20:57] VITALS: BP 133/77; PULSE 74; RESP 18; TEMP 98.6; O2SAT 96
[2017-03-29] VITALS: BP 117/69; PULSE 69; RESP 19; TEMP 97.6; O2SAT 96
[2017-03-29] MEDS: HYDROmorphone HCL PF 1 MG/ML VIAL IV PUSH PRN ×7 (00:36→20:44)
[2017-03-29] MEDS: PANTOPRAZOLE SODIUM 40 MG VIAL IV PUSH SCH (00:36)
[2017-03-29] MEDS: PIPERACIL-TAZO 4.5 GM PREMIX 100 ML IV SCH ×2 (03:48→12:36)
[2017-03-29] MEDS: NS + KCL 20 MEQ INJ 1,000 ML IV SCH ×3 (03:48→20:40)
[2017-03-29 04:00] VITALS: BP 111/69; PULSE 68; RESP 20; TEMP 97.8; O2SAT 95
[2017-03-29] MEDS: METHOCARBAMOL 500 MG TAB PO SCH ×3 (06:26→20:43)
[2017-03-29] MEDS: cloNIDine HCL 0.3 MG TAB PO SCH ×3 (06:26→20:43)
[2017-03-29] MEDS: MUPIROCIN 2% OINT 1 APPLIC/GM SYR NASAL SCH ×2 (07:47→20:42)
[2017-03-29 08:00] VITALS: BP 110/66; PULSE 66; RESP 18; TEMP 98.8; O2SAT 96
[2017-03-29] MEDS: THIAMINE HCL 100 MG TAB PO SCH (08:27)
[2017-03-29] MEDS: CARVEDILOL 6.25 MG TAB PO SCH ×2 (08:27→20:43)
[2017-03-29] MEDS: LISINOPRIL 5 MG TAB PO SCH (08:27)
[2017-03-29] MEDS: MULTIVITAMIN TAB PO SCH (08:27)
[2017-03-29 10:16] LABS: AUTOMATED NEUTROPHIL # 6.4 TH/MM3 (1.8-7.7); BASOPHIL # 0.1 TH/MM3 (0-0.2); BASOPHIL % 0.7 % (0.0-2.0); EOSINOPHIL # 0.1 TH/MM3 (0-0.4); EOSINOPHIL % 1.6 % (0.0-4.0); HEMO FLAGS DIFF FINAL; LYMPH % 13.9 % (9.0-44.0); LYMPHOCYTE # 1.2 TH/MM3 (1.0-4.8); MEAN CELL VOLUME 87.5 FL (80.0-100.0); MEAN CORPUSCULAR HEMOGLOBIN 28.7 PG (27.0-34.0); MEAN CORPUSCULAR HGB CONC 32.8 % (32.0-36.0); MONO % 7.5 % (0.0-8.0); NEUT % 76.3 % (16.0-70.0); PLATELET COUNT 237 TH/MM3 (150-450); RED CELL DISTRIBUTION WIDTH 15.8 % (11.6-17.2); WHITE BLOOD COUNT 8.4 TH/MM3 (4.0-11.0)
[2017-03-29 10:40] LABS: ALT (GPT) 20 U/L (12-78); ANION GAP 6 MEQ/L (5-15); AST (GOT) 23 U/L (15-37); BICARBONATE 23.2 MEQ/L (21.0-32.0); BLOOD UREA NITROGEN 14 MG/DL (7-18); CHLORIDE 101 MEQ/L (98-107); GLOMERULAR FILTRATION RATE 83 ML/MIN (>89); MAGNESIUM 1.7 MG/DL (1.5-2.5); POTASSIUM 4.1 MEQ/L (3.5-5.1); SODIUM (NA) 130 MEQ/L (136-145)
[2017-03-29 10:57] LABS: ALKALINE PHOSPHATASE 69 U/L (45-117); CALCIUM-PROTEIN CORRECTED 7.9 MG/DL (8.5-10.1); FREE T4 0.78 NG/DL (0.76-1.46); TOTAL BILIRUBIN ADULT 0.2 MG/DL (0.2-1.0)
[2017-03-29] MEDS: DAPTOMYCIN IV SCH (11:17)
[2017-03-29] MEDS: SODIUM CHLORIDE 0.9% IV SCH (11:17)
[2017-03-29 11:56] LABS: HEMOGLOBIN A1a 1.2 %; HEMOGLOBIN A1b 1.9 %; HEMOGLOBIN Ao 83.9 %; HEMOGLOBIN LA1C 2.3 %; HEMOGLOBIN P3 5.8 %
--- NOTE | 2017-03-29 11:59 | HHI.PR ---
Subjective Remarks Follow up on MRSA endocarditis sepsis and bacteremia, right ankle hardware infection, bilateral upper extremity hand abscess and Pricila synovitis septic arthritis, catheter associated UTI acute renal failure hypertension alcoholism patient Is doing okay today, oral diet resumed after he pats speech, consider tapering to proceed if dietitian agreed - NO NEW COMPLAINTS CONTINUE ANTIBIOTICS AND WOUND CARE DW RN AND PATIENT - RIGHT BKA DRESSED NO NEW COMPLAINTS NO SOB, NO CHEST PAIN HYPOTHYROID- START SYNTHROID 50MCG Objective Vitals Vital Signs Date Time Temp Pulse Resp B/P (MAP) Pulse Ox O2 Delivery O2 Flow Rate FiO2 03/29/17 08:00 98.8 66 18 110/66 (81) 96 03/29/17 04:00 97.8 68 20 111/69 (83) 95 03/29/17 00:00 97.6 69 19 117/69 (85) 96 03/28/17 22:30 Room Air 03/28/17 20:57 98.6 74 18 133/77 (95) 96 03/28/17 16:00 98.0 70 18 120/75 (90) 96 03/28/17 15:19 Room Air 03/28/17 12:00 98.2 69 18 124/70 (88) 94 I/O 03/28/17 03/28/17 03/28/17 03/29/17 03/29/17 03/29/17 07:00 15:00 23:00 07:00 15:00 23:00 Intake Total 2087 ml 1844 ml 480 ml Output Total 1000 ml 1500 ml 2800 ml Balance 1087 ml 344 ml -2320 ml Intake Oral 480 ml 720 ml 480 ml IV Total 1607 ml 1124 ml Output Urine Total 1000 ml 1500 ml 2800 ml # Bowel Movements 1 Result Diagram: 03/29/17 0951 03/29/17 0951 Other Results Laboratory Tests Test 03/26/17 14:30 03/27/17 08:27 03/27/17 18:49 03/29/17 09:51 Urine Color LIGHT-YELLOW Urine Turbidity CLEAR Urine pH 7.0 Urine Specific [place] 1.007 Urine Protein NEG mg/dL Urine Glucose (UA) NEG mg/dL Urine Ketones NEG mg/dL Urine Occult Blood TRACE Urine Nitrite NEG Urine Bilirubin NEG Urine Urobilinogen LESS THAN 2.0 MG/DL Urine Leukocyte Esterase LARGE Urine RBC 2 /hpf Urine WBC 35 /hpf Urine Bacteria RARE /hpf Microscopic Urinalysis Comment CATH-CULTURE IND White Blood Count 10.2 TH/MM3 8.4 TH/MM3 Red Blood Count 3.43 MIL/MM3 3.20 MIL/MM3 Hemoglobin 10.0 GM/DL 10.6 GM/DL 9.2 GM/DL Hematocrit 29.9 % 32.1 % 28.0 % Mean Corpuscular Volume 87.2 FL 87.5 FL Mean Corpuscular Hemoglobin 29.2 PG 28.7 PG Mean Corpuscular Hemoglobin Concent 33.5 % 32.8 % Red Cell Distribution Width 16.0 % 15.8 % Platelet Count 200 TH/MM3 237 TH/MM3 Mean Platelet Volume 10.1 FL 9.1 FL Neutrophils (%) (Auto) 75.7 % 76.3 % Lymphocytes (%) (Auto) 13.9 % 13.9 % Monocytes (%) (Auto) 9.3 % 7.5 % Eosinophils (%) (Auto) 0.6 % 1.6 % Basophils (%) (Auto) 0.5 % 0.7 % Neutrophils # (Auto) 7.7 TH/MM3 6.4 TH/MM3 Lymphocytes # (Auto) 1.4 TH/MM3 1.2 TH/MM3 Monocytes # (Auto) 0.9 TH/MM3 0.6 TH/MM3 Eosinophils # (Auto) 0.1 TH/MM3 0.1 TH/MM3 Basophils # (Auto) 0.1 TH/MM3 0.1 TH/MM3 CBC Comment DIFF FINAL DIFF FINAL Differential Comment Blood Urea Nitrogen 18 MG/DL 14 MG/DL Creatinine 1.09 MG/DL 0.92 MG/DL Random Glucose 108 MG/DL 113 MG/DL Total Protein 6.4 GM/DL 5.6 GM/DL Calcium Level 7.4 MG/DL 7.1 MG/DL Sodium Level 130 MEQ/L 130 MEQ/L Potassium Level 3.9 MEQ/L 4.1 MEQ/L Chloride Level 98 MEQ/L 101 MEQ/L Carbon Dioxide Level 24.0 MEQ/L 23.2 MEQ/L Anion Gap 8 MEQ/L 6 MEQ/L Estimat Glomerular Filtration Rate 68 ML/MIN 83 ML/MIN Protein Corrected Calcium 7.8 MG/DL 7.9 MG/DL Albumin 1.1 GM/DL Phosphorus Level 2.4 MG/DL Magnesium Level 1.7 MG/DL Alkaline Phosphatase 69 U/L Aspartate Amino Transf (AST/SGOT) 23 U/L Alanine Aminotransferase (ALT/SGPT) 20 U/L Total Bilirubin 0.2 MG/DL Free Thyroxine 0.78 NG/DL Thyroid Stimulating Hormone 3rd Gen 8.290 uIU/ML Imaging Last Impressions Chest X-Ray 03/26/17 0000 Signed Impressions: Service Date/Time: Sunday, March 26, 2017 14:17 - CONCLUSION: Deterioration in the appearance of the chest with increasing parenchymal changes and infiltrate. Isaac Stevenson MD FACR Tumor Localization 03/22/17 0000 Signed Impressions: Service Date/Time: Wednesday, March 22, 2017 13:03 - CONCLUSION: Nondiagnostic examination secondary to patient refusal Harry Lucio MD Abdomen X-Ray 03/08/17 0000 Signed Impressions: Service Date/Time: Wednesday, March 08, 2017 10:30 - CONCLUSION: Nonspecific, negative for obstruction or ileus. Isaac Stevenson MD FACR Lower Extremity CT 03/01/17 0000 Signed Impressions: Service Date/Time: Wednesday, March 01, 2017 11:12 - CONCLUSION: 1. No evidence of organized fluid collections to suggest an abscess. 2. Extensive soft tissue swelling surrounding the ankle and extending to the forefoot especially along the lateral aspect. 3. No erosive or destructive bone changes. 4. Bone defects compatible with previous excision device. Blake Rider MD Ankle X-Ray 02/26/17 0000 Signed Impressions: Service Date/Time: Sunday, February 26, 2017 17:15 - CONCLUSION: I see no retained surgical instruments. Isaac Stevenson MD FACR Upper Extremity Ultrasound 02/25/17 1734 Signed Impressions: Service Date/Time: February 17:54 - CONCLUSION: There is a thin fluid collection within the focal area of soft tissue swelling 2nd digit. Oscar Cassidy MD Hand X-Ray 02/25/17 0000 Signed Impressions: Service Date/Time: February 18:59 - CONCLUSION: No gross bony abnormality. Oscar Cassidy MD Lower Extremity Ultrasound 02/24/17 0000 Signed Impressions: Service Date/Time: Friday, February 24, 2017 13:41 - CONCLUSION: Negative for deep venous thrombosis. Isaac Stevenson MD FACR Head CT 02/24/17 0000 Signed Impressions: Service Date/Time: Friday, February 24, 2017 16:08 - CONCLUSION: 1. No acute intracranial abnormality. 2. Probable large mucocele in the sphenoid sinus. Ty Hankins MD Abdomen/Pelvis CT 02/24/17 0000 Signed Impressions: Service Date/Time: Friday, February 24, 2017 16:16 - CONCLUSION: 1. Marked gaseous distension of large and small bowel most suggestive of ileus. 2. There is no free air. 3. 2.2 cm left adrenal mass. 4. Distended bladder. Isaac Stevenson MD FACR Objective Remarks GENERAL: This is a well-nourished, well-developed patient, in no apparent distress. SKIN: No rashes, warm and dry HEAD: Atraumatic. Normocephalic. EYES: Pupils equal round and reactive. Extraocular motions intact. No scleral icterus. TONGUE MIDLINE- ORAL MUCOSA MOIST ENT: Nose without bleeding, or drainage, Airway patent. NECK: Trachea midline. Supple CARDIOVASCULAR: Regular rate and rhythm without murmurs, gallops, or rubs. S1, S2 NO S3 OR S4 NO HEAVE RESPIRATORY: Fair air entry bilaterally. No wheezes, rales, or rhonchi. GASTROINTESTINAL: Abdomen soft, non-tender, nondistended. Positive bowel sounds GROIN SWOLLEN SCROTAL AREA-ELEVATED WITH BATH TOWEL- SANCHEZ IN PLACE MUSCULOSKELETAL:No cyanosis, or edema. Right and left arms are bandaged home right arm in lifting sling. Right LE IS BANDAGED HAS RIGHT BKA NEUROLOGICAL: Awake and alert. Moves all extremity. Normal speech.no focal neurological deficit : Scrotum swelling Procedures 03/10/2017 - Dr. Bullock exploration, wash, excisional debridement extensor tenosynovium right wrist/forearm/hand 03/08/17 - Dr. Bullock- exploration, wash, excisional debridement skin, subcutaneous tissue, extensor tenosynovitis right wrist and hand. Findings: necrotic tissue, minimal purulence, extensor tenosynovitis right wrist/hand 03/04/17 - Dr Gamez - Right leg and incision and drainage. Right foot delayed primary closure x3 03/04/17 - Dr. Bullock - Extensor tenosynovectomy second, third, fourth extensor compartments right wrist and excisional debridement wash index finger metacarpal phalangeal joint, excisional wash and excisional debridement left hand. 02/28/17 - Dr. Reyes - Right ankle wound debridement and washout. Implantation of antibiotic vancomycin beads. 02/28/17 - Dr. Bullock - Exploration, wash, excisional debridement index finger metacarpophalangeal joint right hand; Exploration, wash, excisional debridement metacarpophalangeal joint left index finger; Exploration, wash, excisional debridement extensor pollicis longus tendon right thumb and hand. 02/26/17 - Dr. Reyes - Right ankle incision and drainage, arthrotomy, removal infected hardware, bone biopsy. 02/26/17 - Dr. Bullock - Exploration, incision and drainage right hand abscess, Arthrotomy wash metacarpal phalangeal joint right index finger, Arthrotomy wash metacarpal phalangeal joint left index finger. Medications and IVs Current Medications Sodium Chloride 1,000 ml @ 999 mls/hr BOLUS ONCE IV Last administered on 13:38; Start 02/24/17 at 13:45; Stop 02/24/17 at 14:45; Status DC IV Flush (NS Flush) 2 ml UNSCH PRN IV FLUSH FLUSH AFTER USING IV ACCESS Last administered on 02/24/17 13:38; Start 02/24/17 at 13:45 Vancomycin HCl 1000 mg/Sodium Chloride 250 ml @ 250 mls/hr ONCE STAT IV Last administered on 02/24/17 15:49; Start 02/24/17 at 15:35; Stop 02/24/17 at 16:34; Status DC Cefepime HCl 2000 mg/Sodium Chloride 100 ml @ 200 mls/hr ONCE STAT IV Last administered on 02/24/17 16:36; Start 02/24/17 at 15:35; Stop 02/24/17 at 16:04; Status DC Potassium Bicarb/ Potassium Chloride (K-Lyte Cl Eff) 50 meq ONCE ONCE PO Last administered on 02/24/17 15:56; Start 02/24/17 at 16:00; Stop 02/24/17 at 16: 01; Status DC Iohexol (Omnipaque 350 Inj) 97 ml STK-MED ONCE IV Last administered on 16:29; Start 02/24/17 at 16:29; Stop 02/24/17 at 16:30; Status DC Sodium Chloride 1,000 ml @ 125 mls/hr Q8H IV Last administered on 03/02/17 09: 33; Start 02/24/17 at 18:00; Stop 03/02/17 at 13:08; Status DC Ondansetron HCl (Zofran Inj) 4 mg Q8HR PRN IV PUSH NAUSEA; Start 02/24/17 at 18: 00 Thiamine HCl (Vitamin B1) 100 mg ONCE ONCE PO Last administered on 02/24/17 20 :20; Start 02/24/17 at 20:15; Stop 02/24/17 at 20:16; Status DC Thiamine HCl (Vitamin B1) 100 mg DAILY PO Last administered on 03/29/17 08:27; Start 02/25/17 at 09:00 Potassium Chloride 100 ml @ 50 mls/hr Q2H IV Last administered on 02/24/17 22: 59; Start 02/24/17 at 20:30; Stop 02/25/17 at 00:29; Status DC Pharmacy Profile Note 0 ml @ 0 mls/hr UNSCH OTHER ; Start 02/24/17 at 20:15; Stop 03/02/17 at 13:23; Status DC Cefepime HCl 2000 mg/Sodium Chloride 100 ml @ 200 mls/hr Q12H IV Last administered on 02/27/17 05:51; Start 02/25/17 at 07:00; Stop 02/27/17 at 14:53; Status DC Vancomycin HCl 1500 mg/Sodium Chloride 515 ml @ 257.5 mls/ hr Q18H IV Last administered on 02/25/17 10:30; Start 02/25/17 at 10:00; Stop 02/25/17 at 11:30; Status DC Miscellaneous Information SPECIFIC LAB TO BE DRAWN:VANCO TROUGH DATE TO BE DR... ONCE ONCE .XX ; Start 02/26/17 at 21:45; Stop 02/26/17 at 21:46; Status DC Flumazenil (Romazicon Inj) 0.2 mg Q1M PRN IV PUSH SEE LABEL COMMENTS; Start 02/25/17 at 09:15 Lorazepam (Ativan) 1 mg Q4H PRN PO agitation Last administered on 03/20/17 03: 18; Start 02/25/17 at 09:15 Lorazepam (Ativan Inj) 1 mg Q4H PRN IV PUSH agitation when not taking po Last administered on 03/05/17 02:41; Start 02/25/17 at 09:15 Lorazepam (Ativan) 2 mg Q2H PRN PO CIWA 11-14; Start 02/25/17 at 09:15; Stop 02/28/17 at 07:44; Status DC Lorazepam (Ativan Inj) 2 mg Q2H PRN IV PUSH CIWA 11-14 Last administered on 02/26 18:14; Start 02/25/17 at 09:15; Stop 02/28/17 at 07:44; Status DC Lorazepam (Ativan Inj) 2 mg Q1H PRN IV PUSH CIWA 15-20 Last administered on 02/25 21:37; Start 02/25/17 at 09:15; Stop 02/28/17 at 07:44; Status DC Lorazepam (Ativan Inj) 2 mg Q15M PRN IV PUSH CIWA > 20 Last administered on 02/26 06:25; Start 02/25/17 at 09:15; Stop 02/28/17 at 07:44; Status DC Multivitamins (Theragran) 1 tab DAILY PO Last administered on 03/29/17 08:27; Start 02/26/17 at 09:00 Acetaminophen (Tylenol) 650 mg Q4H PRN PO FEVER Last administered on 03/07/17 04:47; Start 02/25/17 at 09:15; Stop 03/12/17 at 10:47; Status DC Lisinopril (Prinivil) 10 mg DAILY PO ; Start 02/26/17 at 09:00; Stop 03/08/17 at 21:09; Status DC Enoxaparin Sodium (Lovenox Inj) 40 mg Q24H SQ Last administered on 03/07/17 10 :00; Start 02/25/17 at 10:00; Stop 03/10/17 at 12:17; Status DC Vancomycin HCl 1500 mg/Sodium Chloride 515 ml @ 257.5 mls/ hr Q12H IV Last administered on 02/26/17 09:42; Start 02/25/17 at 22:00; Stop 02/26/17 at 12:06; Status DC Miscellaneous Information SPECIFIC LAB TO BE ... ONCE ONCE .XX Last administered on 02/26/17 09:45; Start 02/26/17 at 09:45; Stop 02/26/17 at 09:46; Status DC Chlordiazepoxide (Librium) 25 mg Q8H PO ; Start 02/25/17 at 17:00; Stop 02/25/17 at 20:24; Status DC Gentamicin Sulfate 70 mg/ Sodium Chloride 101.75 ml @ 100 mls/ hr ONCE ONCE IV Last administered on 02/25/17 18:51; Start 02/25/17 at 18:30; Stop 02/25/17 at 19:31; Status DC Dexmedetomidine HCl 200 mcg/ Sodium Chloride 52 ml @ 0 mls/hr TITRATE IV Last administered on 02/27/17 13:55; Start 02/25/17 at 17:30; Stop 03/09/17 at 23:34; Status DC Acetaminophen (Ofirmev Inj) 650 mg Q6H PRN IV TEMP >101 Last administered on 20:12; Start 02/25/17 at 21:00 Iohexol (Omnipaque 350 Inj) 75 ml STK-MED ONCE IV Last administered on 21:15; Start 02/25/17 at 21:15; Stop 02/25/17 at 21:16; Status DC Potassium Chloride 100 ml @ 50 mls/hr Q2H PRN IV For Potassium 2.8 - 3.2 mEq/L ; Start 02/25/17 at 22:45; Stop 03/01/17 at 23:53; Status DC Potassium Chloride 100 ml @ 50 mls/hr Q2H PRN IV For Potassium 2.8 - 3.2 mEq/ L Last administered on 02/28/17 12:32; Start 02/25/17 at 22:45; Stop 03/01/17 at 23:53; Status DC Potassium Bicarb/ Potassium Chloride (K-Lyte Cl Eff) 50 meq UNSCH PRN PO For Potassium 3.3 - 3.5 mEq/L; Start 02/25/17 at 22:45; Stop 03/01/17 at 23:53; Status DC Potassium Chloride 100 ml @ 25 mls/hr UNSCH PRN IV For Potassium 3.3 - 3.5 mEq /L; Start 02/25/17 at 22:45; Stop 03/01/17 at 23:53; Status DC Potassium Chloride 100 ml @ 50 mls/hr Q2H PRN IV For Potassium 3.3 - 3.5 mEq/ L Last administered on 02/28/17t 06:39; Start 02/25/17 at 22:45; Stop 03/01/17 at 23:53; Status DC Magnesium Sulfate 4 gm/Sodium Chloride 100 ml @ 50 mls/hr UNSCH PRN IV For Magnesium 0.9 - 1.1 mg/dL; Start 02/25/17 at 22:45; Stop 03/01/17 at 23:53; Status DC Magnesium Oxide (Mag-Ox) 800 mg UNSCH PRN PO For Magnesium 1.2 - 1.6 mg/dL; Start 02/25/17 at 22:45; Stop 03/01/17 at 23:53; Status DC Magnesium Sulfate 2 gm/Sodium Chloride 100 ml @ 50 mls/hr UNSCH PRN IV For Magnesium 1.2 - 1.6 mg/dL; Start 02/25/17 at 22:45; Stop 03/01/17 at 23:53; Status DC Potassium Phosphate (K-Phos) 2,000 mg Q4H PRN PO For Phosphorus < 2.5 mg/dL; Start 02/25/17 at 22:45; Stop 03/01/17 at 23:53; Status DC Sodium Phosphate 30 mmol/Sodium Chloride 250 ml @ 42 mls/hr UNSCH PRN IV For Phosphorus < 2.5 mg/dL Last administered on 02/26/17t 23:19; Start 02/25/17 at 22: 45; Stop 03/01/17 at 23:53; Status DC Potassium Phosphate (K-Phos) 2,000 mg UNSCH PRN PO/TUBE SEE LABEL COMMENTS; Start 02/25/17 at 22:45; Stop 03/01/17 at 23:53; Status DC Potassium Phosphate 30 mmol/ Sodium Chloride 260 ml @ 42 mls/hr UNSCH PRN IV SEE LABEL COMMENTS; Start 02/25/17 at 22:45; Stop 03/01/17 at 23:53; Status DC Labetalol HCl (Trandate Inj) 10 mg Q6H PRN IV PUSH SBP >165; Start 02/25/17 at 23:15 Pantoprazole Sodium (Protonix Inj) 40 mg Q24H IV PUSH Last administered on 00:36; Start 02/26/17 at 00:00 Miscellaneous Information Patient in critical care unit? Ass... [id number] .XX ; Start 02/26/17 at 07:15 Mupirocin (Bactroban Nasal 2% Oint) 1 applic BID NASAL Last administered on 03/28 20:50; Start 02/26/17 at 09:00 Chlorhexidine Gluconate (Chlorhexidine 2% Cloth) 3 pack DAILY@04 TOPICAL Last administered on 03/03/17 04:00; Start 02/27/17 at 04:00; Stop 03/03/17 at 04:01; Status DC Chlorhexidine Gluconate (Chlorhexidine 2% Cloth) 3 pack UNSCH PRN TOPICAL HYGIENIC CARE; Start 02/26/17 at 07:15; Stop 03/03/17 at 07:07; Status DC Lidocaine HCl (Xylocaine 2% Inj) 50 ml STK-MED ONCE .ROUTE ; Start 02/26/17 at 09 :35; Stop 02/26/17 at 09:36; Status DC Bupivacaine HCl (Marcaine Pf 0.5% Inj) 60 ml STK-MED ONCE .ROUTE ; Start at 09:35; Stop 02/26/17 at 09:36; Status DC Mupirocin (Bactroban 2% Oint) 22 applic STK-MED ONCE .ROUTE ; Start 02/26/17 at 09:35; Stop 02/26/17 at 09:36; Status DC Vancomycin HCl 1250 mg/Sodium Chloride 262.5 ml @ 250 mls/hr Q12H IV Last administered on 03/02/17 09:33; Start 02/26/17 at 22:00; Stop 03/02/17 at 13:23; Status DC Miscellaneous Information SPECIFIC LAB TO BE BIA... ONCE ONCE .XX Last administered on 02/27/17 22:46; Start 02/27/17 at 21:45; Stop 02/27/17 at 21:46; Status DC Neomycin/Polymyxin (Neosporin G.u. Irr) 3 ml STK-MED ONCE TOPICAL Last administered on 02/26/17 13:06; Start 02/26/17 at 13:06; Stop 02/26/17 at 16:26; Status DC Neomycin/Polymyxin (Neosporin G.u. Irr) 4 ml STK-MED ONCE TOPICAL Last administered on 02/26/17 15:47; Start 02/26/17 at 15:47; Stop 02/26/17 at 16:26; Status DC Fentanyl Citrate (fentaNYL INJ) 250 mcg STK-MED ONCE .ROUTE ; Start 02/26/17 at 18:16; Stop 02/26/17 at 18:17; Status DC Fentanyl Citrate (fentaNYL INJ) 100 mcg STK-MED ONCE .ROUTE ; Start 02/26/17 at 18:16; Stop 02/26/17 at 18:17; Status DC Miscellaneous Information ALL NURSING DEPARTME... UNSCH PRN .XX SEE LABEL COMMENTS; Start 02/26/17 at 17:57; Stop 02/27/17 at 17:56; Status DC Clonidine (Catapres) 0.3 mg Q8HR PO Last administered on 03/29/17 06:26; Start 02/26/17 at 22:11 Diazepam (Valium) 5 mg Taper DAILY PO Last administered on 03/06/17 09:49; Start 02/26/17 at 22:15; Stop 03/06/17 at 22:14; Status DC Water (Free Water) 200 ml Q8HR G-TUBE Last administered on 02/27/17 22:31; Start 02/27/17 at 06:55; Stop 02/28/17 at 07:41; Status DC Rifampin 300 mg/ Sodium Chloride 100 ml @ 100 mls/hr Q12H IV Last administered on 03/02/17 14:41; Start 02/27/17 at 15:00; Stop 03/02/17 at 16:41; Status DC Oxycodone HCl (Roxicodone) 5 mg Q4H PRN PO pain 1-5 Last administered on 09:26; Start 02/28/17 at 07:45 Hydromorphone HCl (Dilaudid Pf Inj) 0.5 mg Q3H PRN IV PUSH pain 6-10 or not taking po Last administered on 03/29/17 11:18; Start 02/28/17 at 07:45 Water (Free Water) 300 ml Q4HR G-TUBE Last administered on 03/02/17 20:00; Start 02/28/17 at 08:00; Stop 03/02/17 at 23:07; Status DC Vancomycin HCl (Vancomycin Inj) 1,000 mg STK-MED ONCE .ROUTE Last administered on 02/28/17 09:01; Start 02/28/17 at 09:01; Stop 02/28/17 at 09:02; Status DC Vancomycin HCl (Vancomycin Inj) 1,000 mg STK-MED ONCE .ROUTE Last administered on 02/28/17 09:33; Start 02/28/17 at 09:33; Stop 02/28/17 at 09:34; Status DC Vancomycin HCl (Vancomycin Inj) 1,000 mg STK-MED ONCE .ROUTE Last administered on 02/28/17 09:36; Start 02/28/17 at 09:33; Stop 02/28/17 at 09:34; Status DC Daptomycin 450 mg/ Sodium Chloride 100 ml @ 200 mls/hr Q24H IV Last administered on 03/05/17 13:41; Start 02/28/17 at 12:00; Stop 03/05/17 at 18:00 ; Status DC Vancomycin HCl (Vancomycin Inj) 1,000 mg STK-MED ONCE .ROUTE Last administered on 02/28/17 10:45; Start 02/28/17 at 10:42; Stop 02/28/17 at 10:43; Status DC Vancomycin HCl (Vancomycin Inj) 500 mg STK-MED ONCE .ROUTE Last administered on 02/28/17 10:45; Start 02/28/17 at 10:42; Stop 02/28/17 at 10:43; Status DC Fentanyl Citrate (fentaNYL INJ) 250 mcg STK-MED ONCE .ROUTE ; Start 02/28/17 at 11:48; Stop 02/28/17 at 11:49; Status DC Miscellaneous Information ALL NURSING DEPARTME... UNSCH PRN .XX SEE LABEL COMMENTS; Start 02/28/17 at 11:33; Stop 03/01/17 at 11:32; Status DC Miscellaneous Information SPECIFIC LAB TO BE BIA... ONCE ONCE .XX ; Start 03/04 at 09:45; Stop 03/04/17 at 09:46; Status Cancel Sodium Chloride 1,000 ml @ 999 mls/hr BOLUS ONCE IV Last administered on 13:28; Start 03/02/17 at 13:15; Stop 03/02/17 at 14:15; Status DC Sodium Chloride 1,000 ml @ 125 mls/hr Q8H IV Last administered on 03/02/17 14: 18; Start 03/02/17 at 13:15; Stop 03/02/17 at 14:30; Status DC Rifampin (Rifampin) 300 mg Q12HR PO Last administered on 03/23/17 08:42; Start 03/02/17 at 21:00; Stop 03/23/17 at 18:40; Status DC Potassium Chloride 20 meq/ Sodium Chloride 38.5 meq/Sterile Water 1,010 ml @ 55 mls/hr [id number] IV Last administered on 03/09/17 22:51; Start 03/03/17 at 11: 00; Stop 03/09/17 at 23:36; Status DC Furosemide (Lasix Inj) 20 mg ONCE ONCE IV PUSH Last administered on 03/03/17 10:19; Start 03/03/17 at 09:30; Stop 03/03/17 at 09:43; Status DC Carvedilol (Coreg) 6.25 mg Q12HR PO Last administered on 03/29/17 08:27; Start 03/03/17 at 21:00 Vancomycin HCl (Vancomycin Inj) 1,000 mg STK-MED ONCE .ROUTE Last administered on 03/04/17 15:52; Start 03/04/17 at 15:10; Stop 03/04/17 at 15:11; Status DC Fentanyl Citrate (fentaNYL INJ) 100 mcg STK-MED ONCE .ROUTE ; Start 03/04/17 at 16:38; Stop 03/04/17 at 16:39; Status DC Fentanyl Citrate (fentaNYL INJ) 250 mcg STK-MED ONCE .ROUTE ; Start 03/04/17 at 16:38; Stop 03/04/17 at 16:39; Status DC Vancomycin HCl (Vancomycin Inj) 1,000 mg STK-MED ONCE .ROUTE Last administered on 03/04/17 16:52; Start 03/04/17 at 16:59; Stop 03/04/17 at 17:00; Status DC Fentanyl Citrate (fentaNYL INJ) 100 mcg STK-MED ONCE .ROUTE ; Start 03/04/17 at 18:24; Stop 03/04/17 at 18:25; Status DC Fentanyl Citrate (fentaNYL INJ) 250 mcg STK-MED ONCE .ROUTE ; Start 03/04/17 at 18:25; Stop 03/04/17 at 18:26; Status DC Miscellaneous Information ALL NURSING DEPARTME... UNSCH PRN .XX SEE LABEL COMMENTS; Start 03/04/17 at 19:15; Stop 03/05/17 at 19:14; Status DC Daptomycin 550 mg/ Sodium Chloride 100 ml @ 200 mls/hr Q24H IV Last administered on 03/29/17 11:17; Start 03/06/17 at 12:00 Bisacodyl (Dulcolax Supp) 10 mg DAILY PRN RECTAL SEVERE CONSITIPATION; Start at 21:00 Lactulose (Lactulose Liq) 30 ml DAILY PRN NG SEVERE CONSITIPATION Last administered on 03/07/17 18:45; Start 03/06/17 at 21:00 Docusate Sodium (Colace Liq) 100 mg Q12HR PO Last administered on 03/09/17 09: 30; Start 03/06/17 at 21:15; Status Future Hold Sodium Chloride 250 ml @ 15 mls/hr ONCE ONCE IV Last administered on 00:27; Start 03/07/17 at 19:00; Stop 03/08/17 at 12:06; Status DC Furosemide (Lasix Inj) 20 mg ONCE ONCE IV Last administered on 03/08/17 03:49 ; Start 03/07/17 at 19:00; Stop 03/07/17 at 19:01; Status DC Polyethylene Glycol/ Electrolytes (Colyte Liq) 4,000 ml ONCE ONCE PO ; Start at 11:00; Stop 03/08/17 at 11:01; Status Cancel Mupirocin (Bactroban 2% Oint) 22 applic STK-MED ONCE .ROUTE ; Start 03/08/17 at 12:10; Stop 03/08/17 at 12:11; Status DC Lidocaine HCl (Xylocaine 2% Inj) 50 ml STK-MED ONCE .ROUTE ; Start 03/08/17 at 12:13; Stop 03/08/17 at 12:14; Status DC Bupivacaine HCl (Marcaine Pf 0.5% Inj) 30 ml STK-MED ONCE .ROUTE ; Start at 12:17; Stop 03/08/17 at 12:18; Status DC Famotidine (Pepcid Inj) 20 mg STK-MED ONCE .ROUTE ; Start 03/08/17 at 13:17; Stop 03/08/17 at 13:18; Status DC Vancomycin HCl (Vancomycin Inj) 1,000 mg STK-MED ONCE .ROUTE Last administered on 03/08/17t 14:35; Start 03/08/17 at 14:07; Stop 03/08/17 at 14:08; Status DC Sodium Chloride (Sodium Chloride 0.9% Inj) 20 ml STK-MED ONCE .ROUTE ; Start at 14:07; Stop 03/08/17 at 14:08; Status DC Vancomycin HCl (Vancomycin Inj) 1,000 mg STK-MED ONCE .ROUTE ; Start 03/08/17 at 14:42; Stop 03/08/17 at 14:43; Status DC Sodium Chloride (Sodium Chloride 0.9% Inj) 20 ml STK-MED ONCE .ROUTE ; Start at 14:42; Stop 03/08/17 at 14:43; Status DC Fentanyl Citrate (fentaNYL INJ) 500 mcg STK-MED ONCE .ROUTE ; Start 03/08/17 at 15:51; Stop 03/08/17 at 15:52; Status DC Miscellaneous Information ALL NURSING DEPARTME... UNSCH PRN .XX SEE LABEL COMMENTS; Start 03/08/17 at 15:40; Stop 03/09/17 at 15:39; Status DC Polyethylene Glycol/ Electrolytes (Colyte Liq) 4,000 ml ONCE ONCE NG Last administered on 03/08/17 22:42; Start 03/08/17 at 20:00; Stop 03/08/17 at 20:01 ; Status DC Lisinopril (Prinivil) 2.5 mg DAILY PO Last administered on 03/29/17 08:27; Start 03/09/17 at 09:00 Miscellaneous (Pill Splitter) 1 ea UNSCH PRN OTHER SEE LABEL COMMENTS; Start at 21:15 Dextrose 1,000 ml @ 84 mls/hr [id number] IV Last administered on 03/11/17 21:24 ; Start 03/09/17 at 23:45; Stop 03/11/17 at 23:38; Status DC Enoxaparin Sodium (Lovenox Inj) 40 mg Q24H SQ Last administered on 03/28/17 13: 30; Start 03/10/17 at 13:00; Status Future hold Bupivacaine HCl (Marcaine Pf 0.5% Inj) 30 ml STK-MED ONCE .ROUTE ; Start at 14:50; Stop 03/10/17 at 14:51; Status DC Lidocaine HCl (Xylocaine 2% Inj) 50 ml STK-MED ONCE .ROUTE ; Start 03/10/17 at 14:51; Stop 03/10/17 at 14:52; Status DC Bacitracin (Baciguent Oint) 15 applic STK-MED ONCE .ROUTE Last administered on 03/10/17 16:43; Start 03/10/17 at 14:51; Stop 03/10/17 at 14:52; Status DC Vancomycin HCl (Vancomycin Inj) 1,000 mg STK-MED ONCE .ROUTE Last administered on 03/10/17 15:49; Start 03/10/17 at 15:45; Stop 03/10/17 at 15:46; Status DC Sodium Chloride (Sodium Chloride 0.9% Inj) 20 ml STK-MED ONCE .ROUTE ; Start at 15:45; Stop 03/10/17 at 15:46; Status DC Neomycin/Polymyxin (Neosporin G.u. Irr) 2 ml STK-MED ONCE TOPICAL Last administered on 03/10/17 15:49; Start 03/10/17 at 15:49; Stop 03/10/17 at 15:59 ; Status DC Bacitracin (Baciguent Oint) 30 applic STK-MED ONCE .ROUTE Last administered on 03/10/17 16:44; Start 03/10/17 at 16:41; Stop 03/10/17 at 16:42; Status DC Hydromorphone HCl (Dilaudid Pf Inj) 2 mg STK-MED ONCE .ROUTE ; Start 03/10/17 at 16:47; Stop 03/10/17 at 16:48; Status DC Fentanyl Citrate (fentaNYL INJ) 250 mcg STK-MED ONCE .ROUTE ; Start 03/10/17 at 17:22; Stop 03/10/17 at 17:23; Status DC Morphine Sulfate (*morphine INJ PERIprocedure ONLY) 8 mg STK-MED ONCE .ROUTE Last administered on 03/10/17 18:12; Start 03/10/17 at 18:12; Stop 03/10/17 at 18:13; Status DC Miscellaneous Information ALL NURSING DEPARTME... UNSCH PRN .XX SEE LABEL COMMENTS; Start 03/10/17 at 14:30; Stop 03/11/17 at 14:29; Status DC Propofol (Diprivan 200 Mg/20 ml Inj) 200 mg STK-MED ONCE IV PUSH ; Start at 15:29; Stop 03/11/17 at 15:47; Status DC Oxybenzone/ Padimate O/ Dimethicone (Blistex Lip [place]) 4.25 applic STK-MED ONCE TOPICAL Last administered on 03/11/17 16:02; Start 03/11/17 at 16:02; Stop at 16:03; Status DC Miscellaneous Information ALL NURSING DEPARTME... UNSCH PRN .XX SEE LABEL COMMENTS; Start 03/11/17 at 16:00; Stop 03/12/17 at 15:59; Status DC Succinylcholine Chloride (Quelicin Inj) 200 mg STK-MED ONCE IV PUSH ; Start at 15:27; Stop 03/12/17 at 08:59; Status DC Sodium Chloride 250 ml @ 15 mls/hr ONCE ONCE IV Last administered on t 10:15; Start 03/12/17 at 10:15; Stop 03/13/17 at 02:54; Status DC Acetaminophen (Tylenol) 650 mg Q4H PRN PO SEE LABEL COMMENTS; Start 03/12/17 at 10:15; Stop 03/12/17 at 14:16; Status DC Diphenhydramine HCl (Benadryl) 25 mg Q4H PRN PO SEE LABEL COMMENTS; Start 03/12 at 10:15; Stop 03/12/17 at 14:16; Status DC Potassium Chloride 100 ml @ 50 mls/hr Q2H IV Last administered on 03/12/17 13 :25; Start 03/12/17 at 11:00; Stop 03/12/17 at 14:59; Status DC Lidocaine HCl (Xylocaine 2% Inj) 50 ml STK-MED ONCE .ROUTE ; Start 03/12/17 at 13:04; Stop 03/12/17 at 13:05; Status DC Mupirocin (Bactroban 2% Oint) 22 applic STK-MED ONCE .ROUTE ; Start 03/12/17 at 13:06; Stop 03/12/17 at 13:07; Status DC Hydromorphone HCl (Dilaudid Pf Inj) 2 mg STK-MED ONCE .ROUTE ; Start 03/12/17 at 15:18; Stop 03/12/17 at 15:19; Status DC Acetaminophen (Ofirmev Inj) 1,000 mg STK-MED ONCE IV ; Start 03/12/17 at 15:18; Stop 03/12/17 at 15:19; Status DC Vancomycin HCl (Vancomycin Inj) 1,000 mg STK-MED ONCE .ROUTE Last administered on 03/12/17 15:54; Start 03/12/17 at 15:57; Stop 03/12/17 at 15:58; Status DC Neomycin/Polymyxin (Neosporin G.u. Irr) 2 ml STK-MED ONCE TOPICAL Last administered on 03/12/17 15:54; Start 03/12/17 at 15:54; Stop 03/12/17 at 16:15 ; Status DC Fentanyl Citrate (fentaNYL INJ) 250 mcg STK-MED ONCE .ROUTE ; Start 03/12/17 at 17:04; Stop 03/12/17 at 17:05; Status DC Miscellaneous Information ALL NURSING DEPARTME... UNSCH PRN .XX SEE LABEL COMMENTS; Start 03/12/17 at 17:30; Stop 03/13/17 at 17:29; Status DC Morphine Sulfate (*morphine INJ PERIprocedure ONLY) 8 mg STK-MED ONCE .ROUTE Last administered on 03/12/17 17:33; Start 03/12/17 at 17:33; Stop 03/12/17 at 17:34; Status DC Lidocaine HCl (Xylocaine 1% Inj) 10 ml ONCE@0700 ONCE OTHER ; Start 03/13/17 at 07:00; Stop 03/13/17 at 07:01; Status DC Potassium Chloride/Sodium Chloride 1,000 ml @ 75 mls/hr [id number] IV Last administered on 03/29/17 03:48; Start 03/13/17 at 11:30 Polyethylene Glycol/ Electrolytes (Colyte Liq) 4,000 ml ONCE ONCE PEG Last administered on 03/14/17 17:13; Start 03/14/17 at 16:00; Stop 03/14/17 at 16:01 ; Status DC Sodium Chloride 250 ml @ 15 mls/hr ONCE ONCE IV Last administered on 21:30; Start 03/13/17 at 20:00; Stop 03/14/17 at 12:39; Status DC Polyethylene Glycol/ Electrolytes (Colyte Liq) 4,000 ml ONCE ONCE PO Last administered on 03/15/17 17:19; Start 03/15/17 at 16:45; Stop 03/15/17 at 16:48 ; Status DC Propofol (Diprivan 200 Mg/20 ml Inj) 180 mg ONCE ONCE IV Last administered on 03/15/17 16:45; Start 03/15/17 at 16:43; Stop 03/15/17 at 16:45; Status DC Sodium Biphosphate/ Sodium Phosphate (Fleets Enema (Adult)) 133 ml ONCE ONCE RECTAL Last administered on 03/16/17 14:45; Start 03/16/17 at 14:15; Stop at 14:21; Status DC Sodium Biphosphate/ Sodium Phosphate (Fleets Enema (Adult)) 133 ml ONCE ONCE RECTAL Last administered on 03/17/17 09:49; Start 03/17/17 at 08:00; Stop at 08:01; Status DC Propofol (Diprivan 200 Mg/20 ml Inj) 100 mg ONCE ONCE IV PUSH ; Start at 15:00; Stop 03/16/17 at 15:01; Status DC Midazolam HCl (Versed Inj) 2 mg STK-MED ONCE .ROUTE ; Start 03/16/17 at 15:34; Stop 03/16/17 at 15:35; Status DC Vancomycin HCl (Vancomycin Inj) 1,000 mg STK-MED ONCE .ROUTE Last administered on 03/18/17 18:58; Start 03/18/17 at 18:15; Stop 03/18/17 at 18:16; Status DC Fentanyl Citrate (fentaNYL INJ) 200 mcg STK-MED ONCE .ROUTE ; Start 03/18/17 at 19:50; Stop 03/18/17 at 19:51; Status DC Methocarbamol (Robaxin) 500 mg Q8HR PO Last administered on 03/29/17 06:26; Start 03/19/17 at 14:00 Acetaminophen 100 ml @ As Directed STK-MED ONCE IV ; Start 03/24/17 at 09:21; Stop 03/24/17 at 09:22; Status DC Midazolam HCl (Versed Inj) 2 mg STK-MED ONCE .ROUTE ; Start 03/24/17 at 09:21; Stop 03/24/17 at 09:22; Status DC Fentanyl Citrate (fentaNYL INJ) 100 mcg STK-MED ONCE .ROUTE ; Start 03/24/17 at 09:21; Stop 03/24/17 at 09:22; Status DC Fentanyl Citrate (fentaNYL INJ) 100 mcg STK-MED ONCE .ROUTE ; Start 03/24/17 at 09:21; Stop 03/24/17 at 09:22; Status DC Hydromorphone HCl (*DILAUDID PF INJ PERIprocedural ONLY) 1 mg STK-MED ONCE .ROUTE Last administered on 03/24/17 14:53; Start 03/24/17 at 14:53; Stop at 14:54; Status DC Meperidine HCl (*DEMEROL INJ PERIprocedural ONLY) 25 mg STK-MED ONCE .ROUTE Last administered on 03/24/17 15:01; Start 03/24/17 at 15:01; Stop 03/24/17 at 15:02; Status DC Fentanyl Citrate (fentaNYL INJ) 400 mcg STK-MED ONCE .ROUTE ; Start 03/24/17 at 15:01; Stop 03/24/17 at 15:02; Status DC Miscellaneous Information ALL NURSING DEPARTME... UNSCH PRN .XX SEE LABEL COMMENTS; Start 03/24/17 at 14:52; Stop 03/25/17 at 14:51; Status DC Polyethylene Glycol (Miralax) 17 gm DAILY PO ; Start 03/24/17 at 16:30; Status Cancel Acetaminophen (Tylenol) 650 mg Q4H PRN PO fever Last administered on 03/25/17 10:02; Start 03/25/17 at 10:00 Piperacillin Sod/ Tazobactam Sod 100 ml @ 200 mls/hr Q8H IV Last administered on 03/29/17 03:48; Start 03/25/17 at 20:00 Furosemide (Lasix Inj) 10 mg ONCE ONCE IV PUSH Last administered on 03/26/17 13:47; Start 03/26/17 at 13:30; Stop 03/26/17 at 13:34; Status DC Furosemide (Lasix Inj) 10 mg UNSCH X1 IV PUSH Last administered on 03/27/17 01 :31; Start 03/26/17 at 17:15; Stop 03/26/17 at 23:59; Status DC Urinary Catheter: No Vascular Central Line Catheter: No A/P Problem List: (1) Sepsis ICD Code: A41.9 - Sepsis, unspecified organism Status: Acute (2) Right foot infection ICD Code: L08.9 - Local infection of the skin and subcutaneous tissue, unspecified Status: Acute (3) Encephalopathy ICD Code: G93.40 - Encephalopathy, unspecified Status: Acute (4) Alcoholism ICD Code: F10.20 - Alcohol dependence, uncomplicated Status: Chronic (5) Hypothyroidism ICD Code: E03.9 - Hypothyroidism, unspecified Assessment and Plan 61-year-old male admitted secondary to numerous infections including bilateral hands and right ankle. Previous history of right ankle. Patient also had encephalopathy secondary to infection and alcohol withdrawal time of admit. Encephalopathy has improved. Continued treatments of infections are ongoing. Status post I&D of right elbow. Continue wound care. Robaxin started for muscle spasms. 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 distant showering of emboli to other joints. MRSA bacteremia Right ankle hardware infection, s/p partial removal of hardware. Deeper hardware embedded. SP RIGHT BKA Bilateral UE hand abscess and tenosynovitis, septic arthritis s.p multiple debridements. Recent fever on 03/25 (resolved) CXR showed possible b/l infiltrate but no clinical respiratory symptoms, UTI with + UA , lactic acidosis (improved), on zosyn with dapto Antibiotic per ID Plan for long-term IV antibiotics, rifampin for 6 weeks Likely will need assisted facility placement Continue oxycodone and Dilaudid for pain May still need further surgical intervention Hand surgeon following Podiatry following ID following Multiple surgeries thus far: - podiatry Dr. Reyes/Dr. Gamez on 02/26, 02/28, 03/04 - hand surgeon Dr. Bullock on 02/26, 02/28, 03/04, 03/08, 03/10 Anemia Most recent hemoglobin is 8.0 Follow CBC Status post blood transfusion Acute Toxic/Metabolic Encephalopathy secondary to Sepsis Acute Alcohol Withdrawal Resolved Hypernatremia Resolved Hypokalemia Replace as needed Continue to monitor Hypertension Continue clonidine and Coreg, cardiology initiate low dose lisinopril, monitor renal function Follow blood pressures Adjust as needed for control Mild Systolic CHF Scrotal edema EF of 40-45% with global hypokinesis found on 02/28/17 Continue beta amarjit Following BMP, consider initiating diuresis, (patient recently had fever and lactic acidosis) HYPOTHYROIDISM START SYNTHROID 50MCG DAILY THADDEUS possibly vanco induced Monitor renal function Avoid nephrotoxins Previous event was likely secondary to ATN Nephrology following Urinary retention Monitor urine output Hepatitis C Standard precautions Dysphagia: Improved patient on regular diet Dietitian to assess tapering tube feed DVT Prophylaxis Lovenox AM LABS CONTINUE CURRENT CARE Problem Qualifiers (1) Sepsis: Isaac Pink DO Mar 29, 2017 11:59
[2017-03-29 12:00] VITALS: BP 122/65; PULSE 69; RESP 18; TEMP 99; O2SAT 97
[2017-03-29] MEDS: ENOXAPARIN SODIUM 40 MG/0.4 ML SYRINGE SQ SCH (12:36)
[2017-03-29] MEDS: LEVOTHYROXINE SODIUM 50 MCG TAB PO ONE ×2 (12:36→12:55)
--- NOTE | 2017-03-29 13:10 | RADRPT ---
EXAM DATE/TIME: 03/29/2017 12:17 [facility] COMPARISON: CHEST SINGLE AP, March 26, 2017, 14:17. INDICATIONS : Shortness of breath and coughing. MEDICAL HISTORY : Hypertension. Hepatitis. SURGICAL HISTORY : None. ENCOUNTER: Initial ACUITY: 1 day PAIN SCORE: 0/10 LOCATION: Bilateral chest FINDINGS: Minimal bibasilar parenchymal changes persist. There is stable small right pleural effusion. The hea rt and pulmonary vascularity are normal. The portion of the bony skeleton visualized is unremarkable. CONCLUSION: Stable chest. Isaac Stevenson MD FACR on March 29, 2017 at 13:07 Board Certified Radiologist. This report was verified electronically.
[2017-03-29] MEDS: LEVOFLOXACIN 500 MG TAB PO SCH (15:11)
[2017-03-29 16:00] VITALS: BP 113/56; PULSE 70; RESP 18; TEMP 97; O2SAT 98
[2017-03-29 20:00] VITALS: BP 134/69; PULSE 65; RESP 18; TEMP 97.8; O2SAT 95
[2017-03-30] VITALS: BP 132/74; PULSE 75; RESP 20; TEMP 98.7; O2SAT 95
[2017-03-30] MEDS: PANTOPRAZOLE SODIUM 40 MG VIAL IV PUSH SCH (00:27)
[2017-03-30] MEDS: HYDROmorphone HCL PF 1 MG/ML VIAL IV PUSH PRN ×6 (00:27→22:27)
[2017-03-30 04:00] VITALS: BP 142/70; PULSE 72; RESP 16; TEMP 99.1; O2SAT 95
[2017-03-30] MEDS: LEVOTHYROXINE SODIUM 50 MCG TAB PO SCH (05:57)
[2017-03-30] MEDS: cloNIDine HCL 0.3 MG TAB PO SCH ×3 (05:57→22:26)
[2017-03-30] MEDS: METHOCARBAMOL 500 MG TAB PO SCH ×3 (05:57→22:26)
[2017-03-30 08:00] VITALS: BP 127/65; PULSE 74; RESP 18; TEMP 98.8; O2SAT 96
[2017-03-30] MEDS: LISINOPRIL 5 MG TAB PO SCH (09:23)
[2017-03-30] MEDS: MULTIVITAMIN TAB PO SCH (09:23)
[2017-03-30] MEDS: LEVOFLOXACIN 500 MG TAB PO SCH (09:23)
[2017-03-30] MEDS: THIAMINE HCL 100 MG TAB PO SCH (09:24)
[2017-03-30] MEDS: CARVEDILOL 6.25 MG TAB PO SCH ×2 (09:24→22:26)
[2017-03-30] MEDS: MUPIROCIN 2% OINT 1 APPLIC/GM SYR NASAL SCH ×2 (09:25→21:00)
[2017-03-30 09:46] LABS: AUTOMATED NEUTROPHIL # 7.1 TH/MM3 (1.8-7.7); BASOPHIL % 0.5 % (0.0-2.0); EOSINOPHIL # 0.1 TH/MM3 (0-0.4); EOSINOPHIL % 1.3 % (0.0-4.0); HEMATOCRIT 31.2 % (39.0-51.0); HEMO FLAGS DIFF FINAL; LYMPHOCYTE # 1.3 TH/MM3 (1.0-4.8); MEAN CELL VOLUME 87.9 FL (80.0-100.0); MEAN CORPUSCULAR HEMOGLOBIN 28.8 PG (27.0-34.0); MEAN CORPUSCULAR HGB CONC 32.8 % (32.0-36.0); MONO % 6.5 % (0.0-8.0); NEUT % 77.7 % (16.0-70.0); PLATELET COUNT 258 TH/MM3 (150-450); RED BLOOD COUNT 3.55 MIL/MM3 (4.50-5.90); RED CELL DISTRIBUTION WIDTH 16.3 % (11.6-17.2); WHITE BLOOD COUNT 9.1 TH/MM3 (4.0-11.0)
[2017-03-30] MEDS: NS + KCL 20 MEQ INJ 1,000 ML IV SCH (10:08)
[2017-03-30 10:13] LABS: BICARBONATE 21.4 MEQ/L (21.0-32.0); CALCIUM-PROTEIN CORRECTED 7.7 MG/DL (8.5-10.1); MAGNESIUM 1.8 MG/DL (1.5-2.5); POTASSIUM 3.9 MEQ/L (3.5-5.1); TOTAL BILIRUBIN ADULT 0.3 MG/DL (0.2-1.0)
--- NOTE | 2017-03-30 11:33 | HHI.PR ---
Subjective Remarks Follow up on MRSA endocarditis sepsis and bacteremia, right ankle hardware infection, bilateral upper extremity hand abscess and Pricila synovitis septic arthritis, catheter associated UTI acute renal failure hypertension alcoholism patient Is doing okay today, oral diet resumed after he pats speech, consider tapering to proceed if dietitian agreed 03-28 NO NEW COMPLAINTS CONTINUE ANTIBIOTICS AND WOUND CARE DW RN AND PATIENT 03-29 RIGHT BKA DRESSED NO NEW COMPLAINTS NO SOB, NO CHEST PAIN HYPOTHYROID- START SYNTHROID 50MCG 03-30 NO NEW COMPLAINTS HAS CHRONIC BACK PAIN NO SOB, NO CHEST PAIN DW RN AND PATIENT CONTINUE ANTIBIOTICS Objective Vitals Vital Signs Date Time Temp Pulse Resp B/P (MAP) Pulse Ox O2 Delivery O2 Flow Rate FiO2 03/30/17 08:00 98.8 74 18 127/65 (85) 96 03/30/17 04:00 99.1 72 16 142/70 (94) 95 03/30/17 00:00 98.7 75 20 132/74 (93) 95 03/29/17 20:00 97.8 65 18 134/69 (90) 95 03/29/17 20:00 Room Air 03/29/17 16:00 97.0 70 18 113/56 (75) 98 03/29/17 12:00 99.0 69 18 122/65 (84) 97 I/O 03/29/17 03/29/17 03/29/17 03/30/17 03/30/17 03/30/17 07:00 15:00 23:00 07:00 15:00 23:00 Intake Total 480 ml 200 ml 960 ml 360 ml 1000 ml Output Total 2800 ml 1500 ml 2250 ml Balance -2320 ml 200 ml -540 ml -1890 ml 1000 ml Intake Oral 480 ml 960 ml 360 ml IV Total 200 ml 1000 ml Output Urine Total 2800 ml 1500 ml 2250 ml # Bowel Movements 0 1 Result Diagram: 03/30/17 0910 03/30/17 0910 Other Results Laboratory Tests Test 03/27/17 18:49 03/29/17 09:51 03/30/17 09:10 Hemoglobin 10.6 GM/DL 9.2 GM/DL 10.2 GM/DL Hematocrit 32.1 % 28.0 % 31.2 % White Blood Count 8.4 TH/MM3 9.1 TH/MM3 Red Blood Count 3.20 MIL/MM3 3.55 MIL/MM3 Mean Corpuscular Volume 87.5 FL 87.9 FL Mean Corpuscular Hemoglobin 28.7 PG 28.8 PG Mean Corpuscular Hemoglobin Concent 32.8 % 32.8 % Red Cell Distribution Width 15.8 % 16.3 % Platelet Count 237 TH/MM3 258 TH/MM3 Mean Platelet Volume 9.1 FL 8.9 FL Neutrophils (%) (Auto) 76.3 % 77.7 % Lymphocytes (%) (Auto) 13.9 % 14.0 % Monocytes (%) (Auto) 7.5 % 6.5 % Eosinophils (%) (Auto) 1.6 % 1.3 % Basophils (%) (Auto) 0.7 % 0.5 % Neutrophils # (Auto) 6.4 TH/MM3 7.1 TH/MM3 Lymphocytes # (Auto) 1.2 TH/MM3 1.3 TH/MM3 Monocytes # (Auto) 0.6 TH/MM3 0.6 TH/MM3 Eosinophils # (Auto) 0.1 TH/MM3 0.1 TH/MM3 Basophils # (Auto) 0.1 TH/MM3 0.0 TH/MM3 CBC Comment DIFF FINAL DIFF FINAL Differential Comment Blood Urea Nitrogen 14 MG/DL 12 MG/DL Creatinine 0.92 MG/DL 0.71 MG/DL Random Glucose 113 MG/DL 105 MG/DL Total Protein 5.6 GM/DL 5.8 GM/DL Albumin 1.1 GM/DL 1.1 GM/DL Calcium Level 7.1 MG/DL 7.0 MG/DL Phosphorus Level 2.4 MG/DL 2.1 MG/DL Magnesium Level 1.7 MG/DL 1.8 MG/DL Alkaline Phosphatase 69 U/L 77 U/L Aspartate Amino Transf (AST/SGOT) 23 U/L 22 U/L Alanine Aminotransferase (ALT/SGPT) 20 U/L 20 U/L Total Bilirubin 0.2 MG/DL 0.3 MG/DL Sodium Level 130 MEQ/L 128 MEQ/L Potassium Level 4.1 MEQ/L 3.9 MEQ/L Chloride Level 101 MEQ/L 99 MEQ/L Carbon Dioxide Level 23.2 MEQ/L 21.4 MEQ/L Anion Gap 6 MEQ/L 8 MEQ/L Estimat Glomerular Filtration Rate 83 ML/MIN 112 ML/MIN Hemoglobin A1c 5.7 % Protein Corrected Calcium 7.9 MG/DL 7.7 MG/DL Free Thyroxine 0.78 NG/DL Thyroid Stimulating Hormone 3rd Gen 8.290 uIU/ML Imaging Last Impressions Chest X-Ray 03/29/17 0000 Signed Impressions: Service Date/Time: Wednesday, March 29, 2017 12:17 - CONCLUSION: Stable chest. Isaac Stevenson MD FACR Tumor Localization 03/22/17 0000 Signed Impressions: Service Date/Time: Wednesday, March 22, 2017 13:03 - CONCLUSION: Nondiagnostic examination secondary to patient refusal Harry Lucio MD Abdomen X-Ray 03/08/17 Signed Impressions: Service Date/Time: Wednesday, March 08, 2017 10:30 - CONCLUSION: Nonspecific, negative for obstruction or ileus. Isaac Stevenson MD FACR Lower Extremity CT 03/01/17 Signed Impressions: Service Date/Time: Wednesday, March 01, 2017 11:12 - CONCLUSION: 1. No evidence of organized fluid collections to suggest an abscess. 2. Extensive soft tissue swelling surrounding the ankle and extending to the forefoot especially along the lateral aspect. 3. No erosive or destructive bone changes. 4. Bone defects compatible with previous excision device. Blake Rider MD Ankle X-Ray 02/26/17 Signed Impressions: Service Date/Time: Sunday, February 26, 2017 17:15 - CONCLUSION: I see no retained surgical instruments. Isaac Stevenson MD FACR Upper Extremity Ultrasound 02/25/17 1734 Signed Impressions: Service Date/Time: February 17:54 - CONCLUSION: There is a thin fluid collection within the focal area of soft tissue swelling 2nd digit. Oscar Cassidy MD Hand X-Ray 02/25/17 Signed Impressions: Service Date/Time: February 18:59 - CONCLUSION: No gross bony abnormality. Oscar Cassidy MD Lower Extremity Ultrasound 02/24/17 Signed Impressions: Service Date/Time: Friday, February 24, 2017 13:41 - CONCLUSION: Negative for deep venous thrombosis. Isaac Stevenson MD FACR Head CT 02/24/17 Signed Impressions: Service Date/Time: Friday, February 24, 2017 16:08 - CONCLUSION: 1. No acute intracranial abnormality. 2. Probable large mucocele in the sphenoid sinus. Ty Hankins MD Abdomen/Pelvis CT 02/24/17 0000 Signed Impressions: Service Date/Time: Friday, February 24, 2017 16:16 - CONCLUSION: 1. Marked gaseous distension of large and small bowel most suggestive of ileus. 2. There is no free air. 3. 2.2 cm left adrenal mass. 4. Distended bladder. Isaac Stevenson MD FACR Objective Remarks GENERAL: This is a well-nourished, well-developed patient, in no apparent distress. SKIN: No rashes, warm and dry HEAD: Atraumatic. Normocephalic. EYES: Pupils equal round and reactive. Extraocular motions intact. No scleral icterus. TONGUE MIDLINE- ORAL MUCOSA MOIST ENT: Nose without bleeding, or drainage, Airway patent. NECK: Trachea midline. Supple CARDIOVASCULAR: Regular rate and rhythm without murmurs, gallops, or rubs. S1, S2 NO S3 OR S4 NO HEAVE RESPIRATORY: Fair air entry bilaterally. No wheezes, rales, or rhonchi. GASTROINTESTINAL: Abdomen soft, non-tender, nondistended. Positive bowel sounds GROIN SWOLLEN SCROTAL AREA-ELEVATED WITH BATH TOWEL- SANCHEZ IN PLACE MUSCULOSKELETAL:No cyanosis, or edema. Right and left arms are bandaged home right arm in lifting sling. Right LE IS BANDAGED HAS RIGHT BKA NEUROLOGICAL: Awake and alert. Moves all extremity. Normal speech.no focal neurological deficit : Scrotum swelling Procedures 03/10/2017 - Dr. Bullock exploration, wash, excisional debridement extensor tenosynovium right wrist/forearm/hand 03/08/17 - Dr. Bullock- exploration, wash, excisional debridement skin, subcutaneous tissue, extensor tenosynovitis right wrist and hand. Findings: necrotic tissue, minimal purulence, extensor tenosynovitis right wrist/hand 03/04/17 - Dr Gamez - Right leg and incision and drainage. Right foot delayed primary closure x3 03/04/17 - Dr. Bullock - Extensor tenosynovectomy second, third, fourth extensor compartments right wrist and excisional debridement wash index finger metacarpal phalangeal joint, excisional wash and excisional debridement left hand. 02/28/17 - Dr. Reyes - Right ankle wound debridement and washout. Implantation of antibiotic vancomycin beads. 02/28/17 - Dr. Bullock - Exploration, wash, excisional debridement index finger metacarpophalangeal joint right hand; Exploration, wash, excisional debridement metacarpophalangeal joint left index finger; Exploration, wash, excisional debridement extensor pollicis longus tendon right thumb and hand. 02/26/17 - Dr. Reyes - Right ankle incision and drainage, arthrotomy, removal infected hardware, bone biopsy. 02/26/17 - Dr. Bullock - Exploration, incision and drainage right hand abscess, Arthrotomy wash metacarpal phalangeal joint right index finger, Arthrotomy wash metacarpal phalangeal joint left index finger. Medications and IVs Current Medications Sodium Chloride 1,000 ml @ 999 mls/hr BOLUS ONCE IV Last administered on 13:38; Start 02/24/17 at 13:45; Stop 02/24/17 at 14:45; Status DC IV Flush (NS Flush) 2 ml UNSCH PRN IV FLUSH FLUSH AFTER USING IV ACCESS Last administered on 02/24/17 13:38; Start 02/24/17 at 13:45 Vancomycin HCl 1000 mg/Sodium Chloride 250 ml @ 250 mls/hr ONCE STAT IV Last administered on 02/24/17 15:49; Start 02/24/17 at 15:35; Stop 02/24/17 at 16:34; Status DC Cefepime HCl 2000 mg/Sodium Chloride 100 ml @ 200 mls/hr ONCE STAT IV Last administered on 02/24/17 16:36; Start 02/24/17 at 15:35; Stop 02/24/17 at 16:04; Status DC Potassium Bicarb/ Potassium Chloride (K-Lyte Cl Eff) 50 meq ONCE ONCE PO Last administered on 02/24/17 15:56; Start 02/24/17 at 16:00; Stop 02/24/17 at 16: 01; Status DC Iohexol (Omnipaque 350 Inj) 97 ml STK-MED ONCE IV Last administered on 16:29; Start 02/24/17 at 16:29; Stop 02/24/17 at 16:30; Status DC Sodium Chloride 1,000 ml @ 125 mls/hr Q8H IV Last administered on 03/02/17 09: 33; Start 02/24/17 at 18:00; Stop 03/02/17 at 13:08; Status DC Ondansetron HCl (Zofran Inj) 4 mg Q8HR PRN IV PUSH NAUSEA; Start 02/24/17 at 18: 00 Thiamine HCl (Vitamin B1) 100 mg ONCE ONCE PO Last administered on 02/24/17 20 :20; Start 02/24/17 at 20:15; Stop 02/24/17 at 20:16; Status DC Thiamine HCl (Vitamin B1) 100 mg DAILY PO Last administered on 03/30/17 09:24; Start 02/25/17 at 09:00 Potassium Chloride 100 ml @ 50 mls/hr Q2H IV Last administered on 02/24/17 22: 59; Start 02/24/17 at 20:30; Stop 02/25/17 at 00:29; Status DC Pharmacy Profile Note 0 ml @ 0 mls/hr UNSCH OTHER ; Start 02/24/17 at 20:15; Stop 03/02/17 at 13:23; Status DC Cefepime HCl 2000 mg/Sodium Chloride 100 ml @ 200 mls/hr Q12H IV Last administered on 02/27/17 05:51; Start 02/25/17 at 07:00; Stop 02/27/17 at 14:53; Status DC Vancomycin HCl 1500 mg/Sodium Chloride 515 ml @ 257.5 mls/ hr Q18H IV Last administered on 02/25/17 10:30; Start 02/25/17 at 10:00; Stop 02/25/17 at 11:30; Status DC Miscellaneous Information SPECIFIC LAB TO BE DRAWN:VANCO TROUGH DATE TO BE DR... ONCE ONCE .XX ; Start 02/26/17 at 21:45; Stop 02/26/17 at 21:46; Status DC Flumazenil (Romazicon Inj) 0.2 mg Q1M PRN IV PUSH SEE LABEL COMMENTS; Start 02/25/17 at 09:15 Lorazepam (Ativan) 1 mg Q4H PRN PO agitation Last administered on 03/20/17 03: 18; Start 02/25/17 at 09:15 Lorazepam (Ativan Inj) 1 mg Q4H PRN IV PUSH agitation when not taking po Last administered on 03/05/17 02:41; Start 02/25/17 at 09:15 Lorazepam (Ativan) 2 mg Q2H PRN PO CIWA 11-14; Start 02/25/17 at 09:15; Stop 02/28/17 at 07:44; Status DC Lorazepam (Ativan Inj) 2 mg Q2H PRN IV PUSH CIWA 11-14 Last administered on 02/26 18:14; Start 02/25/17 at 09:15; Stop 02/28/17 at 07:44; Status DC Lorazepam (Ativan Inj) 2 mg Q1H PRN IV PUSH CIWA 15-20 Last administered on 02/25 21:37; Start 02/25/17 at 09:15; Stop 02/28/17 at 07:44; Status DC Lorazepam (Ativan Inj) 2 mg Q15M PRN IV PUSH CIWA > 20 Last administered on 02/26 06:25; Start 02/25/17 at 09:15; Stop 02/28/17 at 07:44; Status DC Multivitamins (Theragran) 1 tab DAILY PO Last administered on 03/30/17 09:23; Start 02/26/17 at 09:00 Acetaminophen (Tylenol) 650 mg Q4H PRN PO FEVER Last administered on 03/07/17 04:47; Start 02/25/17 at 09:15; Stop 03/12/17 at 10:47; Status DC Lisinopril (Prinivil) 10 mg DAILY PO ; Start 02/26/17 at 09:00; Stop 03/08/17 at 21:09; Status DC Enoxaparin Sodium (Lovenox Inj) 40 mg Q24H SQ Last administered on 03/07/17 10 :00; Start 02/25/17 at 10:00; Stop 03/10/17 at 12:17; Status DC Vancomycin HCl 1500 mg/Sodium Chloride 515 ml @ 257.5 mls/ hr Q12H IV Last administered on 02/26/17 09:42; Start 02/25/17 at 22:00; Stop 02/26/17 at 12:06; Status DC Miscellaneous Information SPECIFIC LAB TO BE ... ONCE ONCE .XX Last administered on 02/26/17 09:45; Start 02/26/17 at 09:45; Stop 02/26/17 at 09:46; Status DC Chlordiazepoxide (Librium) 25 mg Q8H PO ; Start 02/25/17 at 17:00; Stop 02/25/17 at 20:24; Status DC Gentamicin Sulfate 70 mg/ Sodium Chloride 101.75 ml @ 100 mls/ hr ONCE ONCE IV Last administered on 02/25/17 18:51; Start 02/25/17 at 18:30; Stop 02/25/17 at 19:31; Status DC Dexmedetomidine HCl 200 mcg/ Sodium Chloride 52 ml @ 0 mls/hr TITRATE IV Last administered on 02/27/17 13:55; Start 02/25/17 at 17:30; Stop 03/09/17 at 23:34; Status DC Acetaminophen (Ofirmev Inj) 650 mg Q6H PRN IV TEMP >101 Last administered on 20:12; Start 02/25/17 at 21:00 Iohexol (Omnipaque 350 Inj) 75 ml STK-MED ONCE IV Last administered on 21:15; Start 02/25/17 at 21:15; Stop 02/25/17 at 21:16; Status DC Potassium Chloride 100 ml @ 50 mls/hr Q2H PRN IV For Potassium 2.8 - 3.2 mEq/L ; Start 02/25/17 at 22:45; Stop 03/01/17 at 23:53; Status DC Potassium Chloride 100 ml @ 50 mls/hr Q2H PRN IV For Potassium 2.8 - 3.2 mEq/ L Last administered on 02/28/17 12:32; Start 02/25/17 at 22:45; Stop 03/01/17 at 23:53; Status DC Potassium Bicarb/ Potassium Chloride (K-Lyte Cl Eff) 50 meq UNSCH PRN PO For Potassium 3.3 - 3.5 mEq/L; Start 02/25/17 at 22:45; Stop 03/01/17 at 23:53; Status DC Potassium Chloride 100 ml @ 25 mls/hr UNSCH PRN IV For Potassium 3.3 - 3.5 mEq /L; Start 02/25/17 at 22:45; Stop 03/01/17 at 23:53; Status DC Potassium Chloride 100 ml @ 50 mls/hr Q2H PRN IV For Potassium 3.3 - 3.5 mEq/ L Last administered on 02/28/17 06:39; Start 02/25/17 at 22:45; Stop 03/01/17 at 23:53; Status DC Magnesium Sulfate 4 gm/Sodium Chloride 100 ml @ 50 mls/hr UNSCH PRN IV For Magnesium 0.9 - 1.1 mg/dL; Start 02/25/17 at 22:45; Stop 03/01/17 at 23:53; Status DC Magnesium Oxide (Mag-Ox) 800 mg UNSCH PRN PO For Magnesium 1.2 - 1.6 mg/dL; Start 02/25/17 at 22:45; Stop 03/01/17 at 23:53; Status DC Magnesium Sulfate 2 gm/Sodium Chloride 100 ml @ 50 mls/hr UNSCH PRN IV For Magnesium 1.2 - 1.6 mg/dL; Start 02/25/17 at 22:45; Stop 03/01/17 at 23:53; Status DC Potassium Phosphate (K-Phos) 2,000 mg Q4H PRN PO For Phosphorus < 2.5 mg/dL; Start 02/25/17 at 22:45; Stop 03/01/17 at 23:53; Status DC Sodium Phosphate 30 mmol/Sodium Chloride 250 ml @ 42 mls/hr UNSCH PRN IV For Phosphorus < 2.5 mg/dL Last administered on 02/26/17 23:19; Start 02/25/17 at 22: 45; Stop 03/01/17 at 23:53; Status DC Potassium Phosphate (K-Phos) 2,000 mg UNSCH PRN PO/TUBE SEE LABEL COMMENTS; Start 02/25/17 at 22:45; Stop 03/01/17 at 23:53; Status DC Potassium Phosphate 30 mmol/ Sodium Chloride 260 ml @ 42 mls/hr UNSCH PRN IV SEE LABEL COMMENTS; Start 02/25/17 at 22:45; Stop 03/01/17 at 23:53; Status DC Labetalol HCl (Trandate Inj) 10 mg Q6H PRN IV PUSH SBP >165; Start 02/25/17 at 23:15 Pantoprazole Sodium (Protonix Inj) 40 mg Q24H IV PUSH Last administered on 00:27; Start 02/26/17 at 00:00 Miscellaneous Information Patient in critical care unit? Ass... [id number] .XX ; Start 02/26/17 at 07:15 Mupirocin (Bactroban Nasal 2% Oint) 1 applic BID NASAL Last administered on 03/30 09:25; Start 02/26/17 at 09:00 Chlorhexidine Gluconate (Chlorhexidine 2% Cloth) 3 pack DAILY@04 TOPICAL Last administered on 03/03/17 04:00; Start 02/27/17 at 04:00; Stop 03/03/17 at 04:01; Status DC Chlorhexidine Gluconate (Chlorhexidine 2% Cloth) 3 pack UNSCH PRN TOPICAL HYGIENIC CARE; Start 02/26/17 at 07:15; Stop 03/03/17 at 07:07; Status DC Lidocaine HCl (Xylocaine 2% Inj) 50 ml STK-MED ONCE .ROUTE ; Start 02/26/17 at 09 :35; Stop 02/26/17 at 09:36; Status DC Bupivacaine HCl (Marcaine Pf 0.5% Inj) 60 ml STK-MED ONCE .ROUTE ; Start at 09:35; Stop 02/26/17 at 09:36; Status DC Mupirocin (Bactroban 2% Oint) 22 applic STK-MED ONCE .ROUTE ; Start 02/26/17 at 09:35; Stop 02/26/17 at 09:36; Status DC Vancomycin HCl 1250 mg/Sodium Chloride 262.5 ml @ 250 mls/hr Q12H IV Last administered on 03/02/17 09:33; Start 02/26/17 at 22:00; Stop 03/02/17 at 13:23; Status DC Miscellaneous Information SPECIFIC LAB TO BE BIA... ONCE ONCE .XX Last administered on 02/27/17 22:46; Start 02/27/17 at 21:45; Stop 02/27/17 at 21:46; Status DC Neomycin/Polymyxin (Neosporin G.u. Irr) 3 ml STK-MED ONCE TOPICAL Last administered on 02/26/17 13:06; Start 02/26/17 at 13:06; Stop 02/26/17 at 16:26; Status DC Neomycin/Polymyxin (Neosporin G.u. Irr) 4 ml STK-MED ONCE TOPICAL Last administered on 02/26/17 15:47; Start 02/26/17 at 15:47; Stop 02/26/17 at 16:26; Status DC Fentanyl Citrate (fentaNYL INJ) 250 mcg STK-MED ONCE .ROUTE ; Start 02/26/17 at 18:16; Stop 02/26/17 at 18:17; Status DC Fentanyl Citrate (fentaNYL INJ) 100 mcg STK-MED ONCE .ROUTE ; Start 02/26/17 at 18:16; Stop 02/26/17 at 18:17; Status DC Miscellaneous Information ALL NURSING DEPARTME... UNSCH PRN .XX SEE LABEL COMMENTS; Start 02/26/17 at 17:57; Stop 02/27/17 at 17:56; Status DC Clonidine (Catapres) 0.3 mg Q8HR PO Last administered on 03/30/17 05:57; Start 02/26/17 at 22:11 Diazepam (Valium) 5 mg Taper DAILY PO Last administered on 03/06/17 09:49; Start 02/26/17 at 22:15; Stop 03/06/17 at 22:14; Status DC Water (Free Water) 200 ml Q8HR G-TUBE Last administered on 02/27/17 22:31; Start 02/27/17 at 06:55; Stop 02/28/17 at 07:41; Status DC Rifampin 300 mg/ Sodium Chloride 100 ml @ 100 mls/hr Q12H IV Last administered on 03/02/17 14:41; Start 02/27/17 at 15:00; Stop 03/02/17 at 16:41; Status DC Oxycodone HCl (Roxicodone) 5 mg Q4H PRN PO pain 1-5 Last administered on 09:26; Start 02/28/17 at 07:45 Hydromorphone HCl (Dilaudid Pf Inj) 0.5 mg Q3H PRN IV PUSH pain 6-10 or not taking po Last administered on 03/30/17 09:19; Start 02/28/17 at 07:45 Water (Free Water) 300 ml Q4HR G-TUBE Last administered on 03/02/17 20:00; Start 02/28/17 at 08:00; Stop 03/02/17 at 23:07; Status DC Vancomycin HCl (Vancomycin Inj) 1,000 mg STK-MED ONCE .ROUTE Last administered on 02/28/17 09:01; Start 02/28/17 at 09:01; Stop 02/28/17 at 09:02; Status DC Vancomycin HCl (Vancomycin Inj) 1,000 mg STK-MED ONCE .ROUTE Last administered on 02/28/17 09:33; Start 02/28/17 at 09:33; Stop 02/28/17 at 09:34; Status DC Vancomycin HCl (Vancomycin Inj) 1,000 mg STK-MED ONCE .ROUTE Last administered on 02/28/17 09:36; Start 02/28/17 at 09:33; Stop 02/28/17 at 09:34; Status DC Daptomycin 450 mg/ Sodium Chloride 100 ml @ 200 mls/hr Q24H IV Last administered on 03/05/17 13:41; Start 02/28/17 at 12:00; Stop 03/05/17 at 18:00 ; Status DC Vancomycin HCl (Vancomycin Inj) 1,000 mg STK-MED ONCE .ROUTE Last administered on 02/28/17 10:45; Start 02/28/17 at 10:42; Stop 02/28/17 at 10:43; Status DC Vancomycin HCl (Vancomycin Inj) 500 mg STK-MED ONCE .ROUTE Last administered on 02/28/17 10:45; Start 02/28/17 at 10:42; Stop 02/28/17 at 10:43; Status DC Fentanyl Citrate (fentaNYL INJ) 250 mcg STK-MED ONCE .ROUTE ; Start 02/28/17 at 11:48; Stop 02/28/17 at 11:49; Status DC Miscellaneous Information ALL NURSING DEPARTME... UNSCH PRN .XX SEE LABEL COMMENTS; Start 02/28/17 at 11:33; Stop 03/01/17 at 11:32; Status DC Miscellaneous Information SPECIFIC LAB TO BE BIA... ONCE ONCE .XX ; Start 03/04 at 09:45; Stop 03/04/17 at 09:46; Status Cancel Sodium Chloride 1,000 ml @ 999 mls/hr BOLUS ONCE IV Last administered on 13:28; Start 03/02/17 at 13:15; Stop 03/02/17 at 14:15; Status DC Sodium Chloride 1,000 ml @ 125 mls/hr Q8H IV Last administered on 03/02/17 14: 18; Start 03/02/17 at 13:15; Stop 03/02/17 at 14:30; Status DC Rifampin (Rifampin) 300 mg Q12HR PO Last administered on 03/23/17 08:42; Start 03/02/17 at 21:00; Stop 03/23/17 at 18:40; Status DC Potassium Chloride 20 meq/ Sodium Chloride 38.5 meq/Sterile Water 1,010 ml @ 55 mls/hr [id number] IV Last administered on 03/09/17 22:51; Start 03/03/17 at 11: 00; Stop 03/09/17 at 23:36; Status DC Furosemide (Lasix Inj) 20 mg ONCE ONCE IV PUSH Last administered on 03/03/17 10:19; Start 03/03/17 at 09:30; Stop 03/03/17 at 09:43; Status DC Carvedilol (Coreg) 6.25 mg Q12HR PO Last administered on 03/30/17 09:24; Start 03/03/17 at 21:00 Vancomycin HCl (Vancomycin Inj) 1,000 mg STK-MED ONCE .ROUTE Last administered on 03/04/17 15:52; Start 03/04/17 at 15:10; Stop 03/04/17 at 15:11; Status DC Fentanyl Citrate (fentaNYL INJ) 100 mcg STK-MED ONCE .ROUTE ; Start 03/04/17 at 16:38; Stop 03/04/17 at 16:39; Status DC Fentanyl Citrate (fentaNYL INJ) 250 mcg STK-MED ONCE .ROUTE ; Start 03/04/17 at 16:38; Stop 03/04/17 at 16:39; Status DC Vancomycin HCl (Vancomycin Inj) 1,000 mg STK-MED ONCE .ROUTE Last administered on 03/04/17 16:52; Start 03/04/17 at 16:59; Stop 03/04/17 at 17:00; Status DC Fentanyl Citrate (fentaNYL INJ) 100 mcg STK-MED ONCE .ROUTE ; Start 03/04/17 at 18:24; Stop 03/04/17 at 18:25; Status DC Fentanyl Citrate (fentaNYL INJ) 250 mcg STK-MED ONCE .ROUTE ; Start 03/04/17 at 18:25; Stop 03/04/17 at 18:26; Status DC Miscellaneous Information ALL NURSING DEPARTME... UNSCH PRN .XX SEE LABEL COMMENTS; Start 03/04/17 at 19:15; Stop 03/05/17 at 19:14; Status DC Daptomycin 550 mg/ Sodium Chloride 100 ml @ 200 mls/hr Q24H IV Last administered on 03/29/17 11:17; Start 03/06/17 at 12:00 Bisacodyl (Dulcolax Supp) 10 mg DAILY PRN RECTAL SEVERE CONSITIPATION; Start at 21:00 Lactulose (Lactulose Liq) 30 ml DAILY PRN NG SEVERE CONSITIPATION Last administered on 03/07/17 18:45; Start 03/06/17 at 21:00 Docusate Sodium (Colace Liq) 100 mg Q12HR PO Last administered on 03/09/17 09: 30; Start 03/06/17 at 21:15; Status Future Hold Sodium Chloride 250 ml @ 15 mls/hr ONCE ONCE IV Last administered on 00:27; Start 03/07/17 at 19:00; Stop 03/08/17 at 12:06; Status DC Furosemide (Lasix Inj) 20 mg ONCE ONCE IV Last administered on 03/08/17 03:49 ; Start 03/07/17 at 19:00; Stop 03/07/17 at 19:01; Status DC Polyethylene Glycol/ Electrolytes (Colyte Liq) 4,000 ml ONCE ONCE PO ; Start at 11:00; Stop 03/08/17 at 11:01; Status Cancel Mupirocin (Bactroban 2% Oint) 22 applic STK-MED ONCE .ROUTE ; Start 03/08/17 at 12:10; Stop 03/08/17 at 12:11; Status DC Lidocaine HCl (Xylocaine 2% Inj) 50 ml STK-MED ONCE .ROUTE ; Start 03/08/17 at 12:13; Stop 03/08/17 at 12:14; Status DC Bupivacaine HCl (Marcaine Pf 0.5% Inj) 30 ml STK-MED ONCE .ROUTE ; Start at 12:17; Stop 03/08/17 at 12:18; Status DC Famotidine (Pepcid Inj) 20 mg STK-MED ONCE .ROUTE ; Start 03/08/17 at 13:17; Stop 03/08/17 at 13:18; Status DC Vancomycin HCl (Vancomycin Inj) 1,000 mg STK-MED ONCE .ROUTE Last administered on 03/08/17 14:35; Start 03/08/17 at 14:07; Stop 03/08/17 at 14:08; Status DC Sodium Chloride (Sodium Chloride 0.9% Inj) 20 ml STK-MED ONCE .ROUTE ; Start at 14:07; Stop 03/08/17 at 14:08; Status DC Vancomycin HCl (Vancomycin Inj) 1,000 mg STK-MED ONCE .ROUTE ; Start 03/08/17 at 14:42; Stop 03/08/17 at 14:43; Status DC Sodium Chloride (Sodium Chloride 0.9% Inj) 20 ml STK-MED ONCE .ROUTE ; Start at 14:42; Stop 03/08/17 at 14:43; Status DC Fentanyl Citrate (fentaNYL INJ) 500 mcg STK-MED ONCE .ROUTE ; Start 03/08/17 at 15:51; Stop 03/08/17 at 15:52; Status DC Miscellaneous Information ALL NURSING DEPARTME... UNSCH PRN .XX SEE LABEL COMMENTS; Start 03/08/17 at 15:40; Stop 03/09/17 at 15:39; Status DC Polyethylene Glycol/ Electrolytes (Colyte Liq) 4,000 ml ONCE ONCE NG Last administered on 03/08/17 22:42; Start 03/08/17 at 20:00; Stop 03/08/17 at 20:01 ; Status DC Lisinopril (Prinivil) 2.5 mg DAILY PO Last administered on 03/30/17 09:23; Start 03/09/17 at 09:00 Miscellaneous (Pill Splitter) 1 ea UNSCH PRN OTHER SEE LABEL COMMENTS; Start at 21:15 Dextrose 1,000 ml @ 84 mls/hr [id number] IV Last administered on 03/11/17 21:24 ; Start 03/09/17 at 23:45; Stop 03/11/17 at 23:38; Status DC Enoxaparin Sodium (Lovenox Inj) 40 mg Q24H SQ Last administered on 03/29/17 12: 36; Start 03/10/17 at 13:00; Status Future hold Bupivacaine HCl (Marcaine Pf 0.5% Inj) 30 ml STK-MED ONCE .ROUTE ; Start at 14:50; Stop 03/10/17 at 14:51; Status DC Lidocaine HCl (Xylocaine 2% Inj) 50 ml STK-MED ONCE .ROUTE ; Start 03/10/17 at 14:51; Stop 03/10/17 at 14:52; Status DC Bacitracin (Baciguent Oint) 15 applic STK-MED ONCE .ROUTE Last administered on 03/10/17 16:43; Start 03/10/17 at 14:51; Stop 03/10/17 at 14:52; Status DC Vancomycin HCl (Vancomycin Inj) 1,000 mg STK-MED ONCE .ROUTE Last administered on 03/10/17 15:49; Start 03/10/17 at 15:45; Stop 03/10/17 at 15:46; Status DC Sodium Chloride (Sodium Chloride 0.9% Inj) 20 ml STK-MED ONCE .ROUTE ; Start at 15:45; Stop 03/10/17 at 15:46; Status DC Neomycin/Polymyxin (Neosporin G.u. Irr) 2 ml STK-MED ONCE TOPICAL Last administered on 03/10/17 15:49; Start 03/10/17 at 15:49; Stop 03/10/17 at 15:59 ; Status DC Bacitracin (Baciguent Oint) 30 applic STK-MED ONCE .ROUTE Last administered on 03/10/17 16:44; Start 03/10/17 at 16:41; Stop 03/10/17 at 16:42; Status DC Hydromorphone HCl (Dilaudid Pf Inj) 2 mg STK-MED ONCE .ROUTE ; Start 03/10/17 at 16:47; Stop 03/10/17 at 16:48; Status DC Fentanyl Citrate (fentaNYL INJ) 250 mcg STK-MED ONCE .ROUTE ; Start 03/10/17 at 17:22; Stop 03/10/17 at 17:23; Status DC Morphine Sulfate (*morphine INJ PERIprocedure ONLY) 8 mg STK-MED ONCE .ROUTE Last administered on 03/10/17 18:12; Start 03/10/17 at 18:12; Stop 03/10/17 at 18:13; Status DC Miscellaneous Information ALL NURSING DEPARTME... UNSCH PRN .XX SEE LABEL COMMENTS; Start 03/10/17 at 14:30; Stop 03/11/17 at 14:29; Status DC Propofol (Diprivan 200 Mg/20 ml Inj) 200 mg STK-MED ONCE IV PUSH ; Start at 15:29; Stop 03/11/17 at 15:47; Status DC Oxybenzone/ Padimate O/ Dimethicone (Blistex Lip [place]) 4.25 applic STK-MED ONCE TOPICAL Last administered on 03/11/17 16:02; Start 03/11/17 at 16:02; Stop at 16:03; Status DC Miscellaneous Information ALL NURSING DEPARTME... UNSCH PRN .XX SEE LABEL COMMENTS; Start 03/11/17 at 16:00; Stop 03/12/17 at 15:59; Status DC Succinylcholine Chloride (Quelicin Inj) 200 mg STK-MED ONCE IV PUSH ; Start at 15:27; Stop 03/12/17 at 08:59; Status DC Sodium Chloride 250 ml @ 15 mls/hr ONCE ONCE IV Last administered on 10:15; Start 03/12/17 at 10:15; Stop 03/13/17 at 02:54; Status DC Acetaminophen (Tylenol) 650 mg Q4H PRN PO SEE LABEL COMMENTS; Start 03/12/17 at 10:15; Stop 03/12/17 at 14:16; Status DC Diphenhydramine HCl (Benadryl) 25 mg Q4H PRN PO SEE LABEL COMMENTS; Start 03/12 at 10:15; Stop 03/12/17 at 14:16; Status DC Potassium Chloride 100 ml @ 50 mls/hr Q2H IV Last administered on 03/12/17 13 :25; Start 03/12/17 at 11:00; Stop 03/12/17 at 14:59; Status DC Lidocaine HCl (Xylocaine 2% Inj) 50 ml STK-MED ONCE .ROUTE ; Start 03/12/17 at 13:04; Stop 03/12/17 at 13:05; Status DC Mupirocin (Bactroban 2% Oint) 22 applic STK-MED ONCE .ROUTE ; Start 03/12/17 at 13:06; Stop 03/12/17 at 13:07; Status DC Hydromorphone HCl (Dilaudid Pf Inj) 2 mg STK-MED ONCE .ROUTE ; Start 03/12/17 at 15:18; Stop 03/12/17 at 15:19; Status DC Acetaminophen (Ofirmev Inj) 1,000 mg STK-MED ONCE IV ; Start 03/12/17 at 15:18; Stop 03/12/17 at 15:19; Status DC Vancomycin HCl (Vancomycin Inj) 1,000 mg STK-MED ONCE .ROUTE Last administered on 03/12/17 15:54; Start 03/12/17 at 15:57; Stop 03/12/17 at 15:58; Status DC Neomycin/Polymyxin (Neosporin G.u. Irr) 2 ml STK-MED ONCE TOPICAL Last administered on 03/12/17 15:54; Start 03/12/17 at 15:54; Stop 03/12/17 at 16:15 ; Status DC Fentanyl Citrate (fentaNYL INJ) 250 mcg STK-MED ONCE .ROUTE ; Start 03/12/17 at 17:04; Stop 03/12/17 at 17:05; Status DC Miscellaneous Information ALL NURSING DEPARTME... UNSCH PRN .XX SEE LABEL COMMENTS; Start 03/12/17 at 17:30; Stop 03/13/17 at 17:29; Status DC Morphine Sulfate (*morphine INJ PERIprocedure ONLY) 8 mg STK-MED ONCE .ROUTE Last administered on 03/12/17t 17:33; Start 03/12/17 at 17:33; Stop 03/12/17 at 17:34; Status DC Lidocaine HCl (Xylocaine 1% Inj) 10 ml ONCE@0700 ONCE OTHER ; Start 03/13/17 at 07:00; Stop 03/13/17 at 07:01; Status DC Potassium Chloride/Sodium Chloride 1,000 ml @ 75 mls/hr [id number] IV Last administered on 03/30/17 10:08; Start 03/13/17 at 11:30 Polyethylene Glycol/ Electrolytes (Colyte Liq) 4,000 ml ONCE ONCE PEG Last administered on 03/14/17 17:13; Start 03/14/17 at 16:00; Stop 03/14/17 at 16:01 ; Status DC Sodium Chloride 250 ml @ 15 mls/hr ONCE ONCE IV Last administered on 21:30; Start 03/13/17 at 20:00; Stop 03/14/17 at 12:39; Status DC Polyethylene Glycol/ Electrolytes (Colyte Liq) 4,000 ml ONCE ONCE PO Last administered on 03/15/17 17:19; Start 03/15/17 at 16:45; Stop 03/15/17 at 16:48 ; Status DC Propofol (Diprivan 200 Mg/20 ml Inj) 180 mg ONCE ONCE IV Last administered on 03/15/17 16:45; Start 03/15/17 at 16:43; Stop 03/15/17 at 16:45; Status DC Sodium Biphosphate/ Sodium Phosphate (Fleets Enema (Adult)) 133 ml ONCE ONCE RECTAL Last administered on 03/16/17 14:45; Start 03/16/17 at 14:15; Stop at 14:21; Status DC Sodium Biphosphate/ Sodium Phosphate (Fleets Enema (Adult)) 133 ml ONCE ONCE RECTAL Last administered on 03/17/17 09:49; Start 03/17/17 at 08:00; Stop at 08:01; Status DC Propofol (Diprivan 200 Mg/20 ml Inj) 100 mg ONCE ONCE IV PUSH ; Start at 15:00; Stop 03/16/17 at 15:01; Status DC Midazolam HCl (Versed Inj) 2 mg STK-MED ONCE .ROUTE ; Start 03/16/17 at 15:34; Stop 03/16/17 at 15:35; Status DC Vancomycin HCl (Vancomycin Inj) 1,000 mg STK-MED ONCE .ROUTE Last administered on 03/18/17 18:58; Start 03/18/17 at 18:15; Stop 03/18/17 at 18:16; Status DC Fentanyl Citrate (fentaNYL INJ) 200 mcg STK-MED ONCE .ROUTE ; Start 03/18/17 at 19:50; Stop 03/18/17 at 19:51; Status DC Methocarbamol (Robaxin) 500 mg Q8HR PO Last administered on 03/30/17 05:57; Start 03/19/17 at 14:00 Acetaminophen 100 ml @ As Directed STK-MED ONCE IV ; Start 03/24/17 at 09:21; Stop 03/24/17 at 09:22; Status DC Midazolam HCl (Versed Inj) 2 mg STK-MED ONCE .ROUTE ; Start 03/24/17 at 09:21; Stop 03/24/17 at 09:22; Status DC Fentanyl Citrate (fentaNYL INJ) 100 mcg STK-MED ONCE .ROUTE ; Start 03/24/17 at 09:21; Stop 03/24/17 at 09:22; Status DC Fentanyl Citrate (fentaNYL INJ) 100 mcg STK-MED ONCE .ROUTE ; Start 03/24/17 at 09:21; Stop 03/24/17 at 09:22; Status DC Hydromorphone HCl (*DILAUDID PF INJ PERIprocedural ONLY) 1 mg STK-MED ONCE .ROUTE Last administered on 03/24/17 14:53; Start 03/24/17 at 14:53; Stop at 14:54; Status DC Meperidine HCl (*DEMEROL INJ PERIprocedural ONLY) 25 mg STK-MED ONCE .ROUTE Last administered on 03/24/17 15:01; Start 03/24/17 at 15:01; Stop 03/24/17 at 15:02; Status DC Fentanyl Citrate (fentaNYL INJ) 400 mcg STK-MED ONCE .ROUTE ; Start 03/24/17 at 15:01; Stop 03/24/17 at 15:02; Status DC Miscellaneous Information ALL NURSING DEPARTME... UNSCH PRN .XX SEE LABEL COMMENTS; Start 03/24/17 at 14:52; Stop 03/25/17 at 14:51; Status DC Polyethylene Glycol (Miralax) 17 gm DAILY PO ; Start 03/24/17 at 16:30; Status Cancel Acetaminophen (Tylenol) 650 mg Q4H PRN PO fever Last administered on 03/25/17 10:02; Start 03/25/17 at 10:00 Piperacillin Sod/ Tazobactam Sod 100 ml @ 200 mls/hr Q8H IV Last administered on 03/29/17 12:36; Start 03/25/17 at 20:00; Stop 03/29/17 at 14:34; Status DC Furosemide (Lasix Inj) 10 mg ONCE ONCE IV PUSH Last administered on 03/26/17 13:47; Start 03/26/17 at 13:30; Stop 03/26/17 at 13:34; Status DC Furosemide (Lasix Inj) 10 mg UNSCH X1 IV PUSH Last administered on 03/27/17 01 :31; Start 03/26/17 at 17:15; Stop 03/26/17 at 23:59; Status DC Levothyroxine Sodium (Synthroid) 50 mcg DAILY@0600 PO Last administered on 05:57; Start 03/30/17 at 06:00 Levothyroxine Sodium (Synthroid) 50 mcg ONCE ONCE PO Last administered on 12:55; Start 03/29/17 at 12:00; Stop 03/29/17 at 12:02; Status DC Levofloxacin (Levaquin) 500 mg DAILY PO Last administered on 03/30/17 09:23; Start 03/29/17 at 14:45; Stop 04/07/17 at 14:44 Urinary Catheter: No Vascular Central Line Catheter: No A/P Problem List: (1) Sepsis ICD Code: A41.9 - Sepsis, unspecified organism Status: Acute (2) Right foot infection ICD Code: L08.9 - Local infection of the skin and subcutaneous tissue, unspecified Status: Acute (3) Encephalopathy ICD Code: G93.40 - Encephalopathy, unspecified Status: Acute (4) Alcoholism ICD Code: F10.20 - Alcohol dependence, uncomplicated Status: Chronic (5) Hypothyroidism ICD Code: E03.9 - Hypothyroidism, unspecified Assessment and Plan 61-year-old male admitted secondary to numerous infections including bilateral hands and right ankle. Previous history of right ankle. Patient also had encephalopathy secondary to infection and alcohol withdrawal time of admit. Encephalopathy has improved. Continued treatments of infections are ongoing. Status post I&D of right elbow. Continue wound care. Robaxin started for muscle spasms. 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 distant showering of emboli to other joints. MRSA bacteremia Right ankle hardware infection, s/p partial removal of hardware. Deeper hardware embedded. SP RIGHT BKA Bilateral UE hand abscess and tenosynovitis, septic arthritis s.p multiple debridements. Recent fever on 03/25 (resolved) CXR showed possible b/l infiltrate but no clinical respiratory symptoms, UTI with + UA , lactic acidosis (improved), on zosyn with dapto Antibiotic per ID Plan for long-term IV antibiotics, rifampin for 6 weeks Likely will need [facility] facility placement Continue oxycodone and Dilaudid for pain May still need further surgical intervention Hand surgeon following Podiatry following ID following Multiple surgeries thus far: - podiatry Dr. Reyes/Dr. Gamez on 02/26, 02/28, 03/04 - hand surgeon Dr. Bullock on 02/26, 02/28, 03/04, 03/08, 03/10 Anemia Most recent hemoglobin is 8.0 Follow CBC Status post blood transfusion Acute Toxic/Metabolic Encephalopathy secondary to Sepsis Acute Alcohol Withdrawal Resolved Hypernatremia Resolved Hypokalemia Replace as needed Continue to monitor Hypertension Continue clonidine and Coreg, cardiology initiate low dose lisinopril, monitor renal function Follow blood pressures Adjust as needed for control Mild Systolic CHF Scrotal edema EF of 40-45% with global hypokinesis found on 02/28/17 Continue beta amarjit Following BMP, consider initiating diuresis, (patient recently had fever and lactic acidosis) HYPOTHYROIDISM START SYNTHROID 50MCG DAILY THADDEUS possibly vanco induced Monitor renal function Avoid nephrotoxins Previous event was likely secondary to ATN Nephrology following Urinary retention Monitor urine output Hepatitis C Standard precautions Dysphagia: Improved patient on regular diet Dietitian to assess tapering tube feed DVT Prophylaxis Lovenox AM LABS CONTINUE CURRENT CARE Problem Qualifiers (1) Sepsis: Isaac Pink DO Mar 30, 2017 11:33
[2017-03-30 12:00] VITALS: BP 120/71; PULSE 69; RESP 18; TEMP 98.6; O2SAT 96
[2017-03-30] MEDS: DAPTOMYCIN IV SCH (13:12)
[2017-03-30] MEDS: SODIUM CHLORIDE 0.9% IV SCH (13:12)
[2017-03-30] MEDS: ENOXAPARIN SODIUM 40 MG/0.4 ML SYRINGE SQ SCH (13:14)
[2017-03-30 16:00] VITALS: BP 119/56; PULSE 77; RESP 18; TEMP 98; O2SAT 97
[2017-03-30 20:00] VITALS: BP 125/70; PULSE 69; RESP 16; TEMP 99.5; O2SAT 96
[2017-03-31] MEDS: NS + KCL 20 MEQ INJ 1,000 ML IV SCH ×2 (00:20→18:28)
[2017-03-31] MEDS: PANTOPRAZOLE SODIUM 40 MG VIAL IV PUSH SCH ×2 (00:20→22:58)
[2017-03-31] MEDS: HYDROmorphone HCL PF 1 MG/ML VIAL IV PUSH PRN ×5 (03:04→22:59)
[2017-03-31 04:00] VITALS: BP 136/79; PULSE 70; RESP 18; TEMP 98.1; O2SAT 96
[2017-03-31] MEDS: cloNIDine HCL 0.3 MG TAB PO SCH ×3 (06:20→22:58)
[2017-03-31] MEDS: METHOCARBAMOL 500 MG TAB PO SCH ×3 (06:20→22:58)
[2017-03-31] MEDS: LEVOTHYROXINE SODIUM 50 MCG TAB PO SCH (06:20)
[2017-03-31 07:11] LABS: AUTOMATED NEUTROPHIL # 7.4 TH/MM3 (1.8-7.7); BASOPHIL # 0.1 TH/MM3 (0-0.2); BASOPHIL % 0.6 % (0.0-2.0); EOSINOPHIL # 0.2 TH/MM3 (0-0.4); EOSINOPHIL % 2.4 % (0.0-4.0); HEMATOCRIT 30.8 % (39.0-51.0); HEMO FLAGS DIFF FINAL; LYMPH % 14.9 % (9.0-44.0); LYMPHOCYTE # 1.5 TH/MM3 (1.0-4.8); MEAN CELL VOLUME 87.7 FL (80.0-100.0); MEAN CORPUSCULAR HGB CONC 33.1 % (32.0-36.0); MONO % 6.9 % (0.0-8.0); NEUT % 75.2 % (16.0-70.0); PLATELET COUNT 284 TH/MM3 (150-450); RED BLOOD COUNT 3.51 MIL/MM3 (4.50-5.90); RED CELL DISTRIBUTION WIDTH 16.8 % (11.6-17.2); WHITE BLOOD COUNT 9.8 TH/MM3 (4.0-11.0)
[2017-03-31 07:59] LABS: BICARBONATE 22.4 MEQ/L (21.0-32.0); CALCIUM-PROTEIN CORRECTED 8.1 MG/DL (8.5-10.1); MAGNESIUM 1.6 MG/DL (1.5-2.5); POTASSIUM 4.3 MEQ/L (3.5-5.1); TOTAL BILIRUBIN ADULT 0.2 MG/DL (0.2-1.0)
[2017-03-31 08:00] VITALS: BP 115/64; PULSE 66; RESP 18; TEMP 97.8; O2SAT 96
[2017-03-31] MEDS: THIAMINE HCL 100 MG TAB PO SCH (09:22)
[2017-03-31] MEDS: CARVEDILOL 6.25 MG TAB PO SCH ×2 (09:22→22:58)
[2017-03-31] MEDS: LEVOFLOXACIN 500 MG TAB PO SCH (09:22)
[2017-03-31] MEDS: MUPIROCIN 2% OINT 1 APPLIC/GM SYR NASAL SCH ×2 (09:22→21:00)
[2017-03-31] MEDS: LISINOPRIL 5 MG TAB PO SCH (09:22)
[2017-03-31] MEDS: MULTIVITAMIN TAB PO SCH (09:22)
[2017-03-31 12:00] VITALS: BP 118/70; PULSE 64; RESP 18; TEMP 98.2; O2SAT 97
[2017-03-31] MEDS: DAPTOMYCIN IV SCH (12:08)
[2017-03-31] MEDS: SODIUM CHLORIDE 0.9% IV SCH (12:08)
[2017-03-31] MEDS: ENOXAPARIN SODIUM 40 MG/0.4 ML SYRINGE SQ SCH (12:09)
[2017-03-31 16:00] VITALS: BP 117/72; PULSE 70; RESP 18; TEMP 98.1; O2SAT 97
--- NOTE | 2017-03-31 16:22 | HHI.PR ---
Subjective Remarks Follow up on MRSA endocarditis sepsis and bacteremia, right ankle hardware infection, bilateral upper extremity hand abscess and Pricila synovitis septic arthritis, catheter associated UTI acute renal failure hypertension alcoholism patient Is doing okay today, oral diet resumed after he pats speech, consider tapering to proceed if dietitian agreed 03-28 NO NEW COMPLAINTS CONTINUE ANTIBIOTICS AND WOUND CARE DW RN AND PATIENT 03-29 RIGHT BKA DRESSED NO NEW COMPLAINTS NO SOB, NO CHEST PAIN HYPOTHYROID- START SYNTHROID 50MCG 03-30 NO NEW COMPLAINTS HAS CHRONIC BACK PAIN NO SOB, NO CHEST PAIN DW RN AND PATIENT CONTINUE ANTIBIOTICS 03-31 CONSULT GI REGARDING PEG REMOVAL AM LABS CHRONIC PAIN NO SOB, NO CHEST PAIN CONTINUE ON ANTIBIOTICS Objective Vitals Vital Signs Date Time Temp Pulse Resp B/P (MAP) Pulse Ox O2 Delivery O2 Flow Rate FiO2 03/31/17 12:00 98.2 64 18 118/70 (86) 97 03/31/17 08:20 Room Air 03/31/17 08:00 97.8 66 18 115/64 (81) 96 03/31/17 04:00 98.1 70 18 136/79 (98) 96 03/30/17 20:00 Room Air 03/30/17 20:00 99.5 69 16 125/70 (88) 96 I/O 03/30/17 03/30/17 03/30/17 03/31/17 03/31/17 03/31/17 06:59 14:59 22:59 06:59 14:59 22:59 Intake Total 360 ml 1000 ml 960 ml 480 ml Output Total 2250 ml 1500 ml 1900 ml Balance -1890 ml 1000 ml -540 ml -1420 ml Intake Oral 360 ml 960 ml 480 ml IV Total 1000 ml Output Urine Total 2250 ml 1500 ml 1900 ml # Bowel Movements 1 0 0 Result Diagram: 03/31/17 0633 03/31/17 0633 Other Results Laboratory Tests Test 03/29/17 09:51 03/30/17 09:10 03/31/17 06:33 White Blood Count 8.4 TH/MM3 9.1 TH/MM3 9.8 TH/MM3 Red Blood Count 3.20 MIL/MM3 3.55 MIL/MM3 3.51 MIL/MM3 Hemoglobin 9.2 GM/DL 10.2 GM/DL 10.2 GM/DL Hematocrit 28.0 % 31.2 % 30.8 % Mean Corpuscular Volume 87.5 FL 87.9 FL 87.7 FL Mean Corpuscular Hemoglobin 28.7 PG 28.8 PG 29.0 PG Mean Corpuscular Hemoglobin Concent 32.8 % 32.8 % 33.1 % Red Cell Distribution Width 15.8 % 16.3 % 16.8 % Platelet Count 237 TH/MM3 258 TH/MM3 284 TH/MM3 Mean Platelet Volume 9.1 FL 8.9 FL 8.7 FL Neutrophils (%) (Auto) 76.3 % 77.7 % 75.2 % Lymphocytes (%) (Auto) 13.9 % 14.0 % 14.9 % Monocytes (%) (Auto) 7.5 % 6.5 % 6.9 % Eosinophils (%) (Auto) 1.6 % 1.3 % 2.4 % Basophils (%) (Auto) 0.7 % 0.5 % 0.6 % Neutrophils # (Auto) 6.4 TH/MM3 7.1 TH/MM3 7.4 TH/MM3 Lymphocytes # (Auto) 1.2 TH/MM3 1.3 TH/MM3 1.5 TH/MM3 Monocytes # (Auto) 0.6 TH/MM3 0.6 TH/MM3 0.7 TH/MM3 Eosinophils # (Auto) 0.1 TH/MM3 0.1 TH/MM3 0.2 TH/MM3 Basophils # (Auto) 0.1 TH/MM3 0.0 TH/MM3 0.1 TH/MM3 CBC Comment DIFF FINAL DIFF FINAL DIFF FINAL Differential Comment Blood Urea Nitrogen 14 MG/DL 12 MG/DL 12 MG/DL Creatinine 0.92 MG/DL 0.71 MG/DL 0.71 MG/DL Random Glucose 113 MG/DL 105 MG/DL 95 MG/DL Total Protein 5.6 GM/DL 5.8 GM/DL 5.8 GM/DL Albumin 1.1 GM/DL 1.1 GM/DL 1.2 GM/DL Calcium Level 7.1 MG/DL 7.0 MG/DL 7.4 MG/DL Phosphorus Level 2.4 MG/DL 2.1 MG/DL 2.4 MG/DL Magnesium Level 1.7 MG/DL 1.8 MG/DL 1.6 MG/DL Alkaline Phosphatase 69 U/L 77 U/L 78 U/L Aspartate Amino Transf (AST/SGOT) 23 U/L 22 U/L 22 U/L Alanine Aminotransferase (ALT/SGPT) 20 U/L 20 U/L 24 U/L Total Bilirubin 0.2 MG/DL 0.3 MG/DL 0.2 MG/DL Sodium Level 130 MEQ/L 128 MEQ/L 127 MEQ/L Potassium Level 4.1 MEQ/L 3.9 MEQ/L 4.3 MEQ/L Chloride Level 101 MEQ/L 99 MEQ/L 98 MEQ/L Carbon Dioxide Level 23.2 MEQ/L 21.4 MEQ/L 22.4 MEQ/L Anion Gap 6 MEQ/L 8 MEQ/L 7 MEQ/L Estimat Glomerular Filtration Rate 83 ML/MIN 112 ML/MIN 112 ML/MIN Hemoglobin A1c 5.7 % Protein Corrected Calcium 7.9 MG/DL 7.7 MG/DL 8.1 MG/DL Free Thyroxine 0.78 NG/DL Thyroid Stimulating Hormone 3rd Gen 8.290 uIU/ML Imaging Last Impressions Chest X-Ray 03/29/17 0000 Signed Impressions: Service Date/Time: Wednesday, March 29, 2017 12:17 - CONCLUSION: Stable chest. Isaac Stevenson MD FACR Tumor Localization 03/22/17 0000 Signed Impressions: Service Date/Time: Wednesday, March 22, 2017 13:03 - CONCLUSION: Nondiagnostic examination secondary to patient refusal Harry Lucio MD Abdomen X-Ray 03/08/17 0000 Signed Impressions: Service Date/Time: Wednesday, March 08, 2017 10:30 - CONCLUSION: Nonspecific, negative for obstruction or ileus. Isaac Stevenson MD FACR Lower Extremity CT 03/01/17 0000 Signed Impressions: Service Date/Time: Wednesday, March 01, 2017 11:12 - CONCLUSION: 1. No evidence of organized fluid collections to suggest an abscess. 2. Extensive soft tissue swelling surrounding the ankle and extending to the forefoot especially along the lateral aspect. 3. No erosive or destructive bone changes. 4. Bone defects compatible with previous excision device. Blake Rider MD Ankle X-Ray 02/26/17 0000 Signed Impressions: Service Date/Time: Sunday, February 26, 2017 17:15 - CONCLUSION: I see no retained surgical instruments. Isaac Stevenson MD FACR Upper Extremity Ultrasound 02/25/17 [id number] Signed Impressions: Service Date/Time: February 17:54 - CONCLUSION: There is a thin fluid collection within the focal area of soft tissue swelling 2nd digit. Oscar Cassidy MD Hand X-Ray 02/25/17 0000 Signed Impressions: Service Date/Time: February 18:59 - CONCLUSION: No gross bony abnormality. Oscar Cassidy MD Lower Extremity Ultrasound 02/24/17 0000 Signed Impressions: Service Date/Time: Friday, February 24, 2017 13:41 - CONCLUSION: Negative for deep venous thrombosis. Isaac Stevenson MD FACR Head CT 02/24/17 0000 Signed Impressions: Service Date/Time: Friday, February 24, 2017 16:08 - CONCLUSION: 1. No acute intracranial abnormality. 2. Probable large mucocele in the sphenoid sinus. Ty Hankins MD Abdomen/Pelvis CT 02/24/17 0000 Signed Impressions: Service Date/Time: Friday, February 24, 2017 16:16 - CONCLUSION: 1. Marked gaseous distension of large and small bowel most suggestive of ileus. 2. There is no free air. 3. 2.2 cm left adrenal mass. 4. Distended bladder. Isaac Stevenson MD FACR Objective Remarks GENERAL: This is a well-nourished, well-developed patient, in no apparent distress. SKIN: No rashes, warm and dry HEAD: Atraumatic. Normocephalic. EYES: Pupils equal round and reactive. Extraocular motions intact. No scleral icterus. TONGUE MIDLINE- ORAL MUCOSA MOIST ENT: Nose without bleeding, or drainage, Airway patent. NECK: Trachea midline. Supple CARDIOVASCULAR: Regular rate and rhythm without murmurs, gallops, or rubs. S1, S2 NO S3 OR S4 NO HEAVE RESPIRATORY: Fair air entry bilaterally. No wheezes, rales, or rhonchi. GASTROINTESTINAL: Abdomen soft, non-tender, nondistended. Positive bowel sounds PEG GROIN SWOLLEN SCROTAL AREA-ELEVATED WITH BATH TOWEL- SANCHEZ IN PLACE MUSCULOSKELETAL:No cyanosis, or edema. Right and left arms are bandaged home right arm in lifting sling. Right LE IS BANDAGED HAS RIGHT BKA NEUROLOGICAL: Awake and alert. Moves all extremity. Normal speech.no focal neurological deficit : Scrotum swelling Procedures 03/10/2017 - Dr. Bullock exploration, wash, excisional debridement extensor tenosynovium right wrist/forearm/hand 03/08/17 - Dr. Bullock- exploration, wash, excisional debridement skin, subcutaneous tissue, extensor tenosynovitis right wrist and hand. Findings: necrotic tissue, minimal purulence, extensor tenosynovitis right wrist/hand 03/04/17 - Dr Gamez - Right leg and incision and drainage. Right foot delayed primary closure x3 03/04/17 - Dr. Bullock - Extensor tenosynovectomy second, third, fourth extensor compartments right wrist and excisional debridement wash index finger metacarpal phalangeal joint, excisional wash and excisional debridement left hand. 02/28/17 - Dr. Reyes - Right ankle wound debridement and washout. Implantation of antibiotic vancomycin beads. 02/28/17 - Dr. Bullock - Exploration, wash, excisional debridement index finger metacarpophalangeal joint right hand; Exploration, wash, excisional debridement metacarpophalangeal joint left index finger; Exploration, wash, excisional debridement extensor pollicis longus tendon right thumb and hand. 02/26/17 - Dr. Reyes - Right ankle incision and drainage, arthrotomy, removal infected hardware, bone biopsy. 02/26/17 - Dr. Bullock - Exploration, incision and drainage right hand abscess, Arthrotomy wash metacarpal phalangeal joint right index finger, Arthrotomy wash metacarpal phalangeal joint left index finger. Medications and IVs Current Medications Sodium Chloride 1,000 ml @ 999 mls/hr BOLUS ONCE IV Last administered on 13:38; Start 02/24/17 at 13:45; Stop 02/24/17 at 14:45; Status DC IV Flush (NS Flush) 2 ml UNSCH PRN IV FLUSH FLUSH AFTER USING IV ACCESS Last administered on 02/24/17 13:38; Start 02/24/17 at 13:45 Vancomycin HCl 1000 mg/Sodium Chloride 250 ml @ 250 mls/hr ONCE STAT IV Last administered on 02/24/17 15:49; Start 02/24/17 at 15:35; Stop 02/24/17 at 16:34; Status DC Cefepime HCl 2000 mg/Sodium Chloride 100 ml @ 200 mls/hr ONCE STAT IV Last administered on 02/24/17 16:36; Start 02/24/17 at 15:35; Stop 02/24/17 at 16:04; Status DC Potassium Bicarb/ Potassium Chloride (K-Lyte Cl Eff) 50 meq ONCE ONCE PO Last administered on 02/24/17 15:56; Start 02/24/17 at 16:00; Stop 02/24/17 at 16: 01; Status DC Iohexol (Omnipaque 350 Inj) 97 ml STK-MED ONCE IV Last administered on 16:29; Start 02/24/17 at 16:29; Stop 02/24/17 at 16:30; Status DC Sodium Chloride 1,000 ml @ 125 mls/hr Q8H IV Last administered on 03/02/17 09: 33; Start 02/24/17 at 18:00; Stop 03/02/17 at 13:08; Status DC Ondansetron HCl (Zofran Inj) 4 mg Q8HR PRN IV PUSH NAUSEA; Start 02/24/17 at 18: 00 Thiamine HCl (Vitamin B1) 100 mg ONCE ONCE PO Last administered on 02/24/17 20 :20; Start 02/24/17 at 20:15; Stop 02/24/17 at 20:16; Status DC Thiamine HCl (Vitamin B1) 100 mg DAILY PO Last administered on 03/31/17 09:22; Start 02/25/17 at 09:00 Potassium Chloride 100 ml @ 50 mls/hr Q2H IV Last administered on 02/24/17 22: 59; Start 02/24/17 at 20:30; Stop 02/25/17 at 00:29; Status DC Pharmacy Profile Note 0 ml @ 0 mls/hr UNSCH OTHER ; Start 02/24/17 at 20:15; Stop 03/02/17 at 13:23; Status DC Cefepime HCl 2000 mg/Sodium Chloride 100 ml @ 200 mls/hr Q12H IV Last administered on 02/27/17 05:51; Start 02/25/17 at 07:00; Stop 02/27/17 at 14:53; Status DC Vancomycin HCl 1500 mg/Sodium Chloride 515 ml @ 257.5 mls/ hr Q18H IV Last administered on 02/25/17 10:30; Start 02/25/17 at 10:00; Stop 02/25/17 at 11:30; Status DC Miscellaneous Information SPECIFIC LAB TO BE DRAWN:VANCO TROUGH DATE TO BE DRLaurence.. ONCE ONCE .XX ; Start 02/26/17 at 21:45; Stop 02/26/17 at 21:46; Status DC Flumazenil (Romazicon Inj) 0.2 mg Q1M PRN IV PUSH SEE LABEL COMMENTS; Start 02/25/17 at 09:15 Lorazepam (Ativan) 1 mg Q4H PRN PO agitation Last administered on 03/20/17 03: 18; Start 02/25/17 at 09:15 Lorazepam (Ativan Inj) 1 mg Q4H PRN IV PUSH agitation when not taking po Last administered on 03/05/17 02:41; Start 02/25/17 at 09:15 Lorazepam (Ativan) 2 mg Q2H PRN PO CIWA 11-14; Start 02/25/17 at 09:15; Stop 02/28/17 at 07:44; Status DC Lorazepam (Ativan Inj) 2 mg Q2H PRN IV PUSH CIWA 11-14 Last administered on 02/26 18:14; Start 02/25/17 at 09:15; Stop 02/28/17 at 07:44; Status DC Lorazepam (Ativan Inj) 2 mg Q1H PRN IV PUSH CIWA 15-20 Last administered on 02/25 21:37; Start 02/25/17 at 09:15; Stop 02/28/17 at 07:44; Status DC Lorazepam (Ativan Inj) 2 mg Q15M PRN IV PUSH CIWA > 20 Last administered on 02/26 06:25; Start 02/25/17 at 09:15; Stop 02/28/17 at 07:44; Status DC Multivitamins (Theragran) 1 tab DAILY PO Last administered on 03/31/17 09:22; Start 02/26/17 at 09:00 Acetaminophen (Tylenol) 650 mg Q4H PRN PO FEVER Last administered on 03/07/17 04:47; Start 02/25/17 at 09:15; Stop 03/12/17 at 10:47; Status DC Lisinopril (Prinivil) 10 mg DAILY PO ; Start 02/26/17 at 09:00; Stop 03/08/17 at 21:09; Status DC Enoxaparin Sodium (Lovenox Inj) 40 mg Q24H SQ Last administered on 03/07/17 10 :00; Start 02/25/17 at 10:00; Stop 03/10/17 at 12:17; Status DC Vancomycin HCl 1500 mg/Sodium Chloride 515 ml @ 257.5 mls/ hr Q12H IV Last administered on 02/26/17 09:42; Start 02/25/17 at 22:00; Stop 02/26/17 at 12:06; Status DC Miscellaneous Information SPECIFIC LAB TO BE ... ONCE ONCE .XX Last administered on 02/26/17 09:45; Start 02/26/17 at 09:45; Stop 02/26/17 at 09:46; Status DC Chlordiazepoxide (Librium) 25 mg Q8H PO ; Start 02/25/17 at 17:00; Stop 02/25/17 at 20:24; Status DC Gentamicin Sulfate 70 mg/ Sodium Chloride 101.75 ml @ 100 mls/ hr ONCE ONCE IV Last administered on 02/25/17 18:51; Start 02/25/17 at 18:30; Stop 02/25/17 at 19:31; Status DC Dexmedetomidine HCl 200 mcg/ Sodium Chloride 52 ml @ 0 mls/hr TITRATE IV Last administered on 02/27/17 13:55; Start 02/25/17 at 17:30; Stop 03/09/17 at 23:34; Status DC Acetaminophen (Ofirmev Inj) 650 mg Q6H PRN IV TEMP >101 Last administered on 20:12; Start 02/25/17 at 21:00 Iohexol (Omnipaque 350 Inj) 75 ml STK-MED ONCE IV Last administered on 21:15; Start 02/25/17 at 21:15; Stop 02/25/17 at 21:16; Status DC Potassium Chloride 100 ml @ 50 mls/hr Q2H PRN IV For Potassium 2.8 - 3.2 mEq/L ; Start 02/25/17 at 22:45; Stop 03/01/17 at 23:53; Status DC Potassium Chloride 100 ml @ 50 mls/hr Q2H PRN IV For Potassium 2.8 - 3.2 mEq/ L Last administered on 02/28/17 12:32; Start 02/25/17 at 22:45; Stop 03/01/17 at 23:53; Status DC Potassium Bicarb/ Potassium Chloride (K-Lyte Cl Eff) 50 meq UNSCH PRN PO For Potassium 3.3 - 3.5 mEq/L; Start 02/25/17 at 22:45; Stop 03/01/17 at 23:53; Status DC Potassium Chloride 100 ml @ 25 mls/hr UNSCH PRN IV For Potassium 3.3 - 3.5 mEq /L; Start 02/25/17 at 22:45; Stop 03/01/17 at 23:53; Status DC Potassium Chloride 100 ml @ 50 mls/hr Q2H PRN IV For Potassium 3.3 - 3.5 mEq/ L Last administered on 02/28/17 06:39; Start 02/25/17 at 22:45; Stop 03/01/17 at 23:53; Status DC Magnesium Sulfate 4 gm/Sodium Chloride 100 ml @ 50 mls/hr UNSCH PRN IV For Magnesium 0.9 - 1.1 mg/dL; Start 02/25/17 at 22:45; Stop 03/01/17 at 23:53; Status DC Magnesium Oxide (Mag-Ox) 800 mg UNSCH PRN PO For Magnesium 1.2 - 1.6 mg/dL; Start 02/25/17 at 22:45; Stop 03/01/17 at 23:53; Status DC Magnesium Sulfate 2 gm/Sodium Chloride 100 ml @ 50 mls/hr UNSCH PRN IV For Magnesium 1.2 - 1.6 mg/dL; Start 02/25/17 at 22:45; Stop 03/01/17 at 23:53; Status DC Potassium Phosphate (K-Phos) 2,000 mg Q4H PRN PO For Phosphorus < 2.5 mg/dL; Start 02/25/17 at 22:45; Stop 03/01/17 at 23:53; Status DC Sodium Phosphate 30 mmol/Sodium Chloride 250 ml @ 42 mls/hr UNSCH PRN IV For Phosphorus < 2.5 mg/dL Last administered on 02/26/17 23:19; Start 02/25/17 at 22: 45; Stop 03/01/17 at 23:53; Status DC Potassium Phosphate (K-Phos) 2,000 mg UNSCH PRN PO/TUBE SEE LABEL COMMENTS; Start 02/25/17 at 22:45; Stop 03/01/17 at 23:53; Status DC Potassium Phosphate 30 mmol/ Sodium Chloride 260 ml @ 42 mls/hr UNSCH PRN IV SEE LABEL COMMENTS; Start 02/25/17 at 22:45; Stop 03/01/17 at 23:53; Status DC Labetalol HCl (Trandate Inj) 10 mg Q6H PRN IV PUSH SBP >165; Start 02/25/17 at 23:15 Pantoprazole Sodium (Protonix Inj) 40 mg Q24H IV PUSH Last administered on 00:20; Start 02/26/17 at 00:00 Miscellaneous Information Patient in critical care unit? Ass... Q361D .XX ; Start 02/26/17 at 07:15 Mupirocin (Bactroban Nasal 2% Oint) 1 applic BID NASAL Last administered on 03/31 09:22; Start 02/26/17 at 09:00 Chlorhexidine Gluconate (Chlorhexidine 2% Cloth) 3 pack DAILY@04 TOPICAL Last administered on 03/03/17 04:00; Start 02/27/17 at 04:00; Stop 03/03/17 at 04:01; Status DC Chlorhexidine Gluconate (Chlorhexidine 2% Cloth) 3 pack UNSCH PRN TOPICAL HYGIENIC CARE; Start 02/26/17 at 07:15; Stop 03/03/17 at 07:07; Status DC Lidocaine HCl (Xylocaine 2% Inj) 50 ml STK-MED ONCE .ROUTE ; Start 02/26/17 at 09 :35; Stop 02/26/17 at 09:36; Status DC Bupivacaine HCl (Marcaine Pf 0.5% Inj) 60 ml STK-MED ONCE .ROUTE ; Start at 09:35; Stop 02/26/17 at 09:36; Status DC Mupirocin (Bactroban 2% Oint) 22 applic STK-MED ONCE .ROUTE ; Start 02/26/17 at 09:35; Stop 02/26/17 at 09:36; Status DC Vancomycin HCl 1250 mg/Sodium Chloride 262.5 ml @ 250 mls/hr Q12H IV Last administered on 03/02/17 09:33; Start 02/26/17 at 22:00; Stop 03/02/17 at 13:23; Status DC Miscellaneous Information SPECIFIC LAB TO BE BIA... ONCE ONCE .XX Last administered on 02/27/17 22:46; Start 02/27/17 at 21:45; Stop 02/27/17 at 21:46; Status DC Neomycin/Polymyxin (Neosporin G.u. Irr) 3 ml STK-MED ONCE TOPICAL Last administered on 02/26/17 13:06; Start 02/26/17 at 13:06; Stop 02/26/17 at 16:26; Status DC Neomycin/Polymyxin (Neosporin G.u. Irr) 4 ml STK-MED ONCE TOPICAL Last administered on 02/26/17 15:47; Start 02/26/17 at 15:47; Stop 02/26/17 at 16:26; Status DC Fentanyl Citrate (fentaNYL INJ) 250 mcg STK-MED ONCE .ROUTE ; Start 02/26/17 at 18:16; Stop 02/26/17 at 18:17; Status DC Fentanyl Citrate (fentaNYL INJ) 100 mcg STK-MED ONCE .ROUTE ; Start 02/26/17 at 18:16; Stop 02/26/17 at 18:17; Status DC Miscellaneous Information ALL NURSING DEPARTME... UNSCH PRN .XX SEE LABEL COMMENTS; Start 02/26/17 at 17:57; Stop 02/27/17 at 17:56; Status DC Clonidine (Catapres) 0.3 mg Q8HR PO Last administered on 03/31/17 12:09; Start 02/26/17 at 22:11 Diazepam (Valium) 5 mg Taper DAILY PO Last administered on 03/06/17 09:49; Start 02/26/17 at 22:15; Stop 03/06/17 at 22:14; Status DC Water (Free Water) 200 ml Q8HR G-TUBE Last administered on 02/27/17 22:31; Start 02/27/17 at 06:55; Stop 02/28/17 at 07:41; Status DC Rifampin 300 mg/ Sodium Chloride 100 ml @ 100 mls/hr Q12H IV Last administered on 03/02/17 14:41; Start 02/27/17 at 15:00; Stop 03/02/17 at 16:41; Status DC Oxycodone HCl (Roxicodone) 5 mg Q4H PRN PO pain 1-5 Last administered on 09:26; Start 02/28/17 at 07:45 Hydromorphone HCl (Dilaudid Pf Inj) 0.5 mg Q3H PRN IV PUSH pain 6-10 or not taking po Last administered on 03/31/17 09:23; Start 02/28/17 at 07:45 Water (Free Water) 300 ml Q4HR G-TUBE Last administered on 03/02/17 20:00; Start 02/28/17 at 08:00; Stop 03/02/17 at 23:07; Status DC Vancomycin HCl (Vancomycin Inj) 1,000 mg STK-MED ONCE .ROUTE Last administered on 02/28/17 09:01; Start 02/28/17 at 09:01; Stop 02/28/17 at 09:02; Status DC Vancomycin HCl (Vancomycin Inj) 1,000 mg STK-MED ONCE .ROUTE Last administered on 02/28/17 09:33; Start 02/28/17 at 09:33; Stop 02/28/17 at 09:34; Status DC Vancomycin HCl (Vancomycin Inj) 1,000 mg STK-MED ONCE .ROUTE Last administered on 02/28/17 09:36; Start 02/28/17 at 09:33; Stop 02/28/17 at 09:34; Status DC Daptomycin 450 mg/ Sodium Chloride 100 ml @ 200 mls/hr Q24H IV Last administered on 03/05/17 13:41; Start 02/28/17 at 12:00; Stop 03/05/17 at 18:00 ; Status DC Vancomycin HCl (Vancomycin Inj) 1,000 mg STK-MED ONCE .ROUTE Last administered on 02/28/17 10:45; Start 02/28/17 at 10:42; Stop 02/28/17 at 10:43; Status DC Vancomycin HCl (Vancomycin Inj) 500 mg STK-MED ONCE .ROUTE Last administered on 02/28/17 10:45; Start 02/28/17 at 10:42; Stop 02/28/17 at 10:43; Status DC Fentanyl Citrate (fentaNYL INJ) 250 mcg STK-MED ONCE .ROUTE ; Start 02/28/17 at 11:48; Stop 02/28/17 at 11:49; Status DC Miscellaneous Information ALL NURSING DEPARTME... UNSCH PRN .XX SEE LABEL COMMENTS; Start 02/28/17 at 11:33; Stop 03/01/17 at 11:32; Status DC Miscellaneous Information SPECIFIC LAB TO BE BIA... ONCE ONCE .XX ; Start 03/04 at 09:45; Stop 03/04/17 at 09:46; Status Cancel Sodium Chloride 1,000 ml @ 999 mls/hr BOLUS ONCE IV Last administered on 13:28; Start 03/02/17 at 13:15; Stop 03/02/17 at 14:15; Status DC Sodium Chloride 1,000 ml @ 125 mls/hr Q8H IV Last administered on 03/02/17 14: 18; Start 03/02/17 at 13:15; Stop 03/02/17 at 14:30; Status DC Rifampin (Rifampin) 300 mg Q12HR PO Last administered on 03/23/17 08:42; Start 03/02/17 at 21:00; Stop 03/23/17 at 18:40; Status DC Potassium Chloride 20 meq/ Sodium Chloride 38.5 meq/Sterile Water 1,010 ml @ 55 mls/hr [id number] IV Last administered on 03/09/17 22:51; Start 03/03/17 at 11: 00; Stop 03/09/17 at 23:36; Status DC Furosemide (Lasix Inj) 20 mg ONCE ONCE IV PUSH Last administered on 03/03/17 10:19; Start 03/03/17 at 09:30; Stop 03/03/17 at 09:43; Status DC Carvedilol (Coreg) 6.25 mg Q12HR PO Last administered on 03/31/17 09:22; Start 03/03/17 at 21:00 Vancomycin HCl (Vancomycin Inj) 1,000 mg STK-MED ONCE .ROUTE Last administered on 03/04/17 15:52; Start 03/04/17 at 15:10; Stop 03/04/17 at 15:11; Status DC Fentanyl Citrate (fentaNYL INJ) 100 mcg STK-MED ONCE .ROUTE ; Start 03/04/17 at 16:38; Stop 03/04/17 at 16:39; Status DC Fentanyl Citrate (fentaNYL INJ) 250 mcg STK-MED ONCE .ROUTE ; Start 03/04/17 at 16:38; Stop 03/04/17 at 16:39; Status DC Vancomycin HCl (Vancomycin Inj) 1,000 mg STK-MED ONCE .ROUTE Last administered on 03/04/17 16:52; Start 03/04/17 at 16:59; Stop 03/04/17 at 17:00; Status DC Fentanyl Citrate (fentaNYL INJ) 100 mcg STK-MED ONCE .ROUTE ; Start 03/04/17 at 18:24; Stop 03/04/17 at 18:25; Status DC Fentanyl Citrate (fentaNYL INJ) 250 mcg STK-MED ONCE .ROUTE ; Start 03/04/17 at 18:25; Stop 03/04/17 at 18:26; Status DC Miscellaneous Information ALL NURSING DEPARTME... UNSCH PRN .XX SEE LABEL COMMENTS; Start 03/04/17 at 19:15; Stop 03/05/17 at 19:14; Status DC Daptomycin 550 mg/ Sodium Chloride 100 ml @ 200 mls/hr Q24H IV Last administered on 03/31/17 12:08; Start 03/06/17 at 12:00 Bisacodyl (Dulcolax Supp) 10 mg DAILY PRN RECTAL SEVERE CONSITIPATION; Start at 21:00 Lactulose (Lactulose Liq) 30 ml DAILY PRN NG SEVERE CONSITIPATION Last administered on 03/07/17 18:45; Start 03/06/17 at 21:00 Docusate Sodium (Colace Liq) 100 mg Q12HR PO Last administered on 03/09/17 09: 30; Start 03/06/17 at 21:15; Status Future Hold Sodium Chloride 250 ml @ 15 mls/hr ONCE ONCE IV Last administered on 00:27; Start 03/07/17 at 19:00; Stop 03/08/17 at 12:06; Status DC Furosemide (Lasix Inj) 20 mg ONCE ONCE IV Last administered on 8/14/17at 03:49 ; Start 03/07/17 at 19:00; Stop 03/07/17 at 19:01; Status DC Polyethylene Glycol/ Electrolytes (Colyte Liq) 4,000 ml ONCE ONCE PO ; Start at 11:00; Stop 03/08/17 at 11:01; Status Cancel Mupirocin (Bactroban 2% Oint) 22 applic STK-MED ONCE .ROUTE ; Start 03/08/17 at 12:10; Stop 03/08/17 at 12:11; Status DC Lidocaine HCl (Xylocaine 2% Inj) 50 ml STK-MED ONCE .ROUTE ; Start 03/08/17 at 12:13; Stop 03/08/17 at 12:14; Status DC Bupivacaine HCl (Marcaine Pf 0.5% Inj) 30 ml STK-MED ONCE .ROUTE ; Start at 12:17; Stop 03/08/17 at 12:18; Status DC Famotidine (Pepcid Inj) 20 mg STK-MED ONCE .ROUTE ; Start 03/08/17 at 13:17; Stop 03/08/17 at 13:18; Status DC Vancomycin HCl (Vancomycin Inj) 1,000 mg STK-MED ONCE .ROUTE Last administered on 03/08/17t 14:35; Start 03/08/17 at 14:07; Stop 03/08/17 at 14:08; Status DC Sodium Chloride (Sodium Chloride 0.9% Inj) 20 ml STK-MED ONCE .ROUTE ; Start at 14:07; Stop 03/08/17 at 14:08; Status DC Vancomycin HCl (Vancomycin Inj) 1,000 mg STK-MED ONCE .ROUTE ; Start 03/08/17 at 14:42; Stop 03/08/17 at 14:43; Status DC Sodium Chloride (Sodium Chloride 0.9% Inj) 20 ml STK-MED ONCE .ROUTE ; Start at 14:42; Stop 03/08/17 at 14:43; Status DC Fentanyl Citrate (fentaNYL INJ) 500 mcg STK-MED ONCE .ROUTE ; Start 03/08/17 at 15:51; Stop 03/08/17 at 15:52; Status DC Miscellaneous Information ALL NURSING DEPARTME... UNSCH PRN .XX SEE LABEL COMMENTS; Start 03/08/17 at 15:40; Stop 03/09/17 at 15:39; Status DC Polyethylene Glycol/ Electrolytes (Colyte Liq) 4,000 ml ONCE ONCE NG Last administered on 03/08/17 22:42; Start 03/08/17 at 20:00; Stop 03/08/17 at 20:01 ; Status DC Lisinopril (Prinivil) 2.5 mg DAILY PO Last administered on 03/31/17 09:22; Start 03/09/17 at 09:00 Miscellaneous (Pill Splitter) 1 ea UNSCH PRN OTHER SEE LABEL COMMENTS; Start at 21:15 Dextrose 1,000 ml @ 84 mls/hr [id number] IV Last administered on 03/11/17 21:24 ; Start 03/09/17 at 23:45; Stop 03/11/17 at 23:38; Status DC Enoxaparin Sodium (Lovenox Inj) 40 mg Q24H SQ Last administered on 03/31/17 12: 09; Start 03/10/17 at 13:00; Status Future hold Bupivacaine HCl (Marcaine Pf 0.5% Inj) 30 ml STK-MED ONCE .ROUTE ; Start at 14:50; Stop 03/10/17 at 14:51; Status DC Lidocaine HCl (Xylocaine 2% Inj) 50 ml STK-MED ONCE .ROUTE ; Start 03/10/17 at 14:51; Stop 03/10/17 at 14:52; Status DC Bacitracin (Baciguent Oint) 15 applic STK-MED ONCE .ROUTE Last administered on 03/10/17 16:43; Start 03/10/17 at 14:51; Stop 03/10/17 at 14:52; Status DC Vancomycin HCl (Vancomycin Inj) 1,000 mg STK-MED ONCE .ROUTE Last administered on 03/10/17 15:49; Start 03/10/17 at 15:45; Stop 03/10/17 at

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
--- NOTE | 2017-03-31 18:02 | PD.ORT.PN ---
Subjective Pain Scale: no pain Subjective Remarks both hands much improved and feeling better and hungry and eating now and wants to move around Objective Vitals Vital Signs Date Time Temp Pulse Resp B/P (MAP) Pulse Ox O2 Delivery O2 Flow Rate FiO2 03/31/17 12:00 98.2 64 18 118/70 (86) 97 03/31/17 08:20 Room Air 03/31/17 08:00 97.8 66 18 115/64 (81) 96 03/31/17 04:00 98.1 70 18 136/79 (98) 96 03/30/17 20:00 Room Air 03/30/17 20:00 99.5 69 16 125/70 (88) 96 I/O 03/30/17 03/30/17 03/30/17 03/31/17 03/31/17 03/31/17 07:00 15:00 23:00 07:00 15:00 23:00 Intake Total 360 ml 1000 ml 960 ml 480 ml Output Total 2250 ml 1500 ml 1900 ml Balance -1890 ml 1000 ml -540 ml -1420 ml Intake Oral 360 ml 960 ml 480 ml IV Total 1000 ml Output Urine Total 2250 ml 1500 ml 1900 ml # Bowel Movements 1 0 0 Result Diagram: 03/31/17 0633 03/31/17 0633 Objective Remarks right wrist with minimal drainage and just serosanguinous drainage on the dressing, compartments soft and compressible, no erythema and nearly full AROM of fingers other wounds dry and healing right hand and forearm; left hand wound healed and full AROM of fingers and wrist on the left no swelling right or left hands Assessment & Plan Problem List: (1) Infectious tenosynovitis of right wrist extensor ICD Codes: M65.131 - Other infective (teno)synovitis, right wrist Status: Chronic Plan: continue IV antibiotics per ID Wound right wrist cleaned with normal saline and redressed with sterile dry 4x4s , Gillian, Levy and velcro right wrist splint reapplied Following for Dr. Bullock and will see the patient about weekly or biweekly at this point--Dr Nichols will see patient in the next few days He is eating and as nutrition improves, his wounds should as well. Dr. 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
[2017-03-31 20:00] VITALS: BP 143/76; PULSE 70; RESP 16; TEMP 99.1; O2SAT 97
[2017-04-01] VITALS: BP 115/59; PULSE 72; RESP 18; TEMP 98.6; O2SAT 98
[2017-04-01] MEDS: HYDROmorphone HCL PF 1 MG/ML VIAL IV PUSH PRN ×7 (02:17→23:45)
[2017-04-01 04:00] VITALS: BP 139/78; PULSE 86; RESP 18; TEMP 98.1; O2SAT 94
[2017-04-01] MEDS: NS + KCL 20 MEQ INJ 1,000 ML IV SCH ×2 (05:30→20:11)
[2017-04-01] MEDS: LEVOTHYROXINE SODIUM 50 MCG TAB PO SCH (05:31)
[2017-04-01] MEDS: cloNIDine HCL 0.3 MG TAB PO SCH ×3 (05:35→22:00)
[2017-04-01] MEDS: METHOCARBAMOL 500 MG TAB PO SCH ×3 (05:35→20:09)
[2017-04-01 08:00] VITALS: BP 115/57; PULSE 56; RESP 17; TEMP 98.3; O2SAT 98
[2017-04-01] MEDS: MUPIROCIN 2% OINT 1 APPLIC/GM SYR NASAL SCH ×2 (08:41→20:10)
[2017-04-01] MEDS: THIAMINE HCL 100 MG TAB PO SCH (08:42)
[2017-04-01] MEDS: MULTIVITAMIN TAB PO SCH (08:42)
[2017-04-01] MEDS: LEVOFLOXACIN 500 MG TAB PO SCH (08:42)
[2017-04-01] MEDS: CARVEDILOL 6.25 MG TAB PO SCH ×2 (08:49→20:10)
[2017-04-01] MEDS: LISINOPRIL 5 MG TAB PO SCH (08:49)
--- NOTE | 2017-04-01 09:25 | HHI.GIFU ---
Subjective Remarks Reconsulted for PEG tube removal. Pt no longer using PEG tube. Eating 100% meals without any difficulty- no n/v, abdominal pain, dysphagia. (Delia Zimmerman) Objective Vitals I&O Vital Signs Date Time Temp Pulse Resp B/P (MAP) Pulse Ox O2 Delivery O2 Flow Rate FiO2 04/01/17 08:00 98.3 56 17 115/57 (76) 98 04/01/17 04:00 98.1 86 18 139/78 (98) 94 04/01/17 00:00 98.6 72 18 115/59 (77) 98 03/31/17 20:00 99.1 70 16 143/76 (98) 97 03/31/17 20:00 Room Air 03/31/17 16:00 98.1 70 18 117/72 (87) 97 03/31/17 12:00 98.2 64 18 118/70 (86) 97 I/O 03/31/17 03/31/17 03/31/17 04/01/17 04/01/17 04/01/17 07:00 15:00 23:00 07:00 15:00 23:00 Intake Total 480 ml 600 ml 1963 ml Output Total 1900 ml 600 ml Balance -1420 ml 0 ml 1963 ml Intake Oral 480 ml 600 ml IV Total 1963 ml Output Urine Total 1900 ml 600 ml # Bowel Movements 0 Laboratory Date/Time Source Procedure Growth Status 03/25/17 11:40 Blood Peripheral Aerobic Blood Culture - Final NO GROWTH IN 5 DAYS Complete 03/25/17 11:40 Blood Peripheral Anaerobic Blood Culture - Final NO GROWTH IN 5 DAYS Complete 03/26/17 14:30 Urine Catheterized Urine Urine Culture - Final NO GROWTH IN 48 HOURS. Complete 03/08/17 00:00 Wound Wrist Fungal Smear - Final NO FUNGAL ELEMENTS SEEN. Resulted 03/08/17 00:00 Wound Wrist Fungal Culture - Preliminary NO GROWTH IN 3 WEEKS Resulted Imaging Last Impressions Chest X-Ray 03/29/17 0000 Signed Impressions: Service Date/Time: Wednesday, March 29, 2017 12:17 - CONCLUSION: Stable chest. Isaac Stevenson MD FACR Tumor Localization 03/22/17 0000 Signed Impressions: Service Date/Time: Wednesday, March 22, 2017 13:03 - CONCLUSION: Nondiagnostic examination secondary to patient refusal Harry Lucio MD Abdomen X-Ray 03/08/17 0000 Signed Impressions: Service Date/Time: Wednesday, March 08, 2017 10:30 - CONCLUSION: Nonspecific, negative for obstruction or ileus. Isaac Stevenson MD FACR Lower Extremity CT 03/01/17 0000 Signed Impressions: Service Date/Time: Wednesday, March 01, 2017 11:12 - CONCLUSION: 1. No evidence of organized fluid collections to suggest an abscess. 2. Extensive soft tissue swelling surrounding the ankle and extending to the forefoot especially along the lateral aspect. 3. No erosive or destructive bone changes. 4. Bone defects compatible with previous excision device. Blake Rider MD Ankle X-Ray 02/26/17 0000 Signed Impressions: Service Date/Time: Sunday, February 26, 2017 17:15 - CONCLUSION: I see no retained surgical instruments. Isaac Stevenson MD FACR Upper Extremity Ultrasound 02/25/17 1734 Signed Impressions: Service Date/Time: February 17:54 - CONCLUSION: There is a thin fluid collection within the focal area of soft tissue swelling 2nd digit. Oscar Cassidy MD Hand X-Ray 02/25/17 0000 Signed Impressions: Service Date/Time: February 18:59 - CONCLUSION: No gross bony abnormality. Oscar Cassidy MD Lower Extremity Ultrasound 02/24/17 0000 Signed Impressions: Service Date/Time: Friday, February 24, 2017 13:41 - CONCLUSION: Negative for deep venous thrombosis. Isaac Stevenson MD FACR Head CT 02/24/17 0000 Signed Impressions: Service Date/Time: Friday, February 24, 2017 16:08 - CONCLUSION: 1. No acute intracranial abnormality. 2. Probable large mucocele in the sphenoid sinus. Ty Hankins MD Abdomen/Pelvis CT 02/24/17 0000 Signed Impressions: Service Date/Time: Friday, February 24, 2017 16:16 - CONCLUSION: 1. Marked gaseous distension of large and small bowel most suggestive of ileus. 2. There is no free air. 3. 2.2 cm left adrenal mass. 4. Distended bladder. Isaac Stevenson MD FACR Physical Exam HEENT: Normocephalic; atraumatic; no jaundice CHEST: CTA CARDIAC: RRR ABDOMEN: Soft, mildly distended, nontender; no hepatosplenomegaly; bowel sounds are present in all four quadrants. PEG tube site without redness or swelling EXTREMITIES: RUE with yen wrap drsg d/i FURNISHINGS CONSERVATOR: Alert and oriented. (Delia Zimmerman) Assessment and Plan Plan ASSESSMENT: - Reconsulted for PEG tube removal. Dysphagia resolved- no difficulty swallowing, tolerating diet, eating 100% meals. Not using PEG. S/P removal without difficulty. - Anemia with drop in Hgb. S/P EGD with peg tube placement (03/11/17)---> unremarkable EGD, s/p peg placement. S/P Colonoscopy (03/15)---> inadequate prep, (03/16)--> solid stool in rectum. Plan is for outpatient colonoscopy with 2 day prep. HH 10.2/30.8. - Constipation, Abdomen is mildly distended. However, he is not having any tenderness, nausea, vomiting, and reports that he is moving his bowels. S/P enemas. Will add daily Miralax. (+) BM. - Hep C antibodies. Genotype 1A, Viral load 1,480,000 - THADDEUS with electrolyte abnormalities. Renal following,IMPROVED - Acute encephalopathy, likely multifactorial- dt's, sepsis. RESOLVED. Now a/ ox3 - Sepsis, bacteremia, septic joint. Hand surgery/ID following, Abx per ID. IMPROVED - HTN per attending. PLAN: - S/P PEG tube removal without difficulty - KASEY - Miralax 17gram po daily - GI will sign off, please reconsult as needed - Will need outpatient colonoscopy with 2 day prep - Pt seen and examined by Dr. Sethi and myself and this note is written on his behalf (Delia Zimmerman) Physician Comments patient was seen and examined, agree with above note, PEG tube was removd. (Rupesh Sethi MD) Delia Zimmerman Apr 01, 2017 09:25 Rupesh Sethi MD Apr 01, 2017 19:15
[2017-04-01 10:00] LABS: AUTOMATED NEUTROPHIL # 6.5 TH/MM3 (1.8-7.7); BASOPHIL % 0.5 % (0.0-2.0); EOSINOPHIL # 0.3 TH/MM3 (0-0.4); EOSINOPHIL % 2.9 % (0.0-4.0); HEMATOCRIT 27.8 % (39.0-51.0); HEMO FLAGS DIFF FINAL; LYMPH % 14.9 % (9.0-44.0); LYMPHOCYTE # 1.3 TH/MM3 (1.0-4.8); MEAN CELL VOLUME 87.8 FL (80.0-100.0); MEAN CORPUSCULAR HEMOGLOBIN 29.6 PG (27.0-34.0); MEAN CORPUSCULAR HGB CONC 33.7 % (32.0-36.0); MONO % 8.6 % (0.0-8.0); NEUT % 73.1 % (16.0-70.0); PLATELET COUNT 268 TH/MM3 (150-450); RED BLOOD COUNT 3.17 MIL/MM3 (4.50-5.90); RED CELL DISTRIBUTION WIDTH 16.6 % (11.6-17.2); WHITE BLOOD COUNT 8.9 TH/MM3 (4.0-11.0)
[2017-04-01 10:09] LABS: INTERNATIONAL NORMALIZED RATIO 1.1 RATIO; PROTHROMBIN TIME - PATIENT 12.3 SEC (9.8-11.6)
[2017-04-01 10:49] LABS: BICARBONATE 22.3 MEQ/L (21.0-32.0); CALCIUM-PROTEIN CORRECTED 8.2 MG/DL (8.5-10.1); MAGNESIUM 1.6 MG/DL (1.5-2.5); POTASSIUM 4.2 MEQ/L (3.5-5.1); TOTAL BILIRUBIN ADULT 0.2 MG/DL (0.2-1.0)
[2017-04-01 12:00] VITALS: BP 124/74; PULSE 71; RESP 18; TEMP 98.1; O2SAT 98
[2017-04-01] MEDS: DAPTOMYCIN IV SCH (12:47)
[2017-04-01] MEDS: ENOXAPARIN SODIUM 40 MG/0.4 ML SYRINGE SQ SCH (12:47)
[2017-04-01] MEDS: SODIUM CHLORIDE 0.9% IV SCH (12:47)
--- NOTE | 2017-04-01 14:19 | HHI.PR ---
Subjective Remarks Follow up on MRSA endocarditis sepsis and bacteremia, right ankle hardware infection, bilateral upper extremity hand abscess and Pricila synovitis septic arthritis, catheter associated UTI acute renal failure hypertension alcoholism patient Is doing okay today, oral diet resumed after he pats speech, consider tapering to proceed if dietitian agreed 03-28 NO NEW COMPLAINTS CONTINUE ANTIBIOTICS AND WOUND CARE DW RN AND PATIENT 03-29 RIGHT BKA DRESSED NO NEW COMPLAINTS NO SOB, NO CHEST PAIN HYPOTHYROID- START SYNTHROID 50MCG 03-30 NO NEW COMPLAINTS HAS CHRONIC BACK PAIN NO SOB, NO CHEST PAIN DW RN AND PATIENT CONTINUE ANTIBIOTICS 03-31 CONSULT GI REGARDING PEG REMOVAL AM LABS CHRONIC PAIN NO SOB, NO CHEST PAIN CONTINUE ON ANTIBIOTICS 04-01 HAD PEG TUBE REMOVED BY GI NO SOB, NO CHEST PAIN DW RN AND PT Objective Vitals Vital Signs Date Time Temp Pulse Resp B/P (MAP) Pulse Ox O2 Delivery O2 Flow Rate FiO2 04/01/17 12:00 98.1 71 18 124/74 (91) 98 04/01/17 09:31 18 04/01/17 08:00 98.3 56 17 115/57 (76) 98 04/01/17 04:00 98.1 86 18 139/78 (98) 94 04/01/17 00:00 98.6 72 18 115/59 (77) 98 03/31/17 20:00 99.1 70 16 143/76 (98) 97 03/31/17 20:00 Room Air 03/31/17 16:00 98.1 70 18 117/72 (87) 97 I/O 03/31/17 03/31/17 03/31/17 04/01/17 04/01/17 04/01/17 07:00 15:00 23:00 07:00 15:00 23:00 Intake Total 480 ml 600 ml 1963 ml Output Total 1900 ml 600 ml Balance -1420 ml 0 ml 1963 ml Intake Oral 480 ml 600 ml IV Total 1963 ml Output Urine Total 1900 ml 600 ml # Bowel Movements 0 Result Diagram: 04/01/1736 04/01/1736 Other Results Laboratory Tests Test 03/30/17 09:10 03/31/17 06:33 04/01/17 09:26 04/01/17 09:36 White Blood Count 9.1 TH/MM3 9.8 TH/MM3 8.9 TH/MM3 Red Blood Count 3.55 MIL/MM3 3.51 MIL/MM3 3.17 MIL/MM3 Hemoglobin 10.2 GM/DL 10.2 GM/DL 9.4 GM/DL Hematocrit 31.2 % 30.8 % 27.8 % Mean Corpuscular Volume 87.9 FL 87.7 FL 87.8 FL Mean Corpuscular Hemoglobin 28.8 PG 29.0 PG 29.6 PG Mean Corpuscular Hemoglobin Concent 32.8 % 33.1 % 33.7 % Red Cell Distribution Width 16.3 % 16.8 % 16.6 % Platelet Count 258 TH/MM3 284 TH/MM3 268 TH/MM3 Mean Platelet Volume 8.9 FL 8.7 FL 8.8 FL Neutrophils (%) (Auto) 77.7 % 75.2 % 73.1 % Lymphocytes (%) (Auto) 14.0 % 14.9 % 14.9 % Monocytes (%) (Auto) 6.5 % 6.9 % 8.6 % Eosinophils (%) (Auto) 1.3 % 2.4 % 2.9 % Basophils (%) (Auto) 0.5 % 0.6 % 0.5 % Neutrophils # (Auto) 7.1 TH/MM3 7.4 TH/MM3 6.5 TH/MM3 Lymphocytes # (Auto) 1.3 TH/MM3 1.5 TH/MM3 1.3 TH/MM3 Monocytes # (Auto) 0.6 TH/MM3 0.7 TH/MM3 0.8 TH/MM3 Eosinophils # (Auto) 0.1 TH/MM3 0.2 TH/MM3 0.3 TH/MM3 Basophils # (Auto) 0.0 TH/MM3 0.1 TH/MM3 0.0 TH/MM3 CBC Comment DIFF FINAL DIFF FINAL DIFF FINAL Differential Comment Blood Urea Nitrogen 12 MG/DL 12 MG/DL 11 MG/DL Creatinine 0.71 MG/DL 0.71 MG/DL 0.64 MG/DL Random Glucose 105 MG/DL 95 MG/DL 106 MG/DL Total Protein 5.8 GM/DL 5.8 GM/DL 5.4 GM/DL Albumin 1.1 GM/DL 1.2 GM/DL 1.1 GM/DL Calcium Level 7.0 MG/DL 7.4 MG/DL 7.3 MG/DL Phosphorus Level 2.1 MG/DL 2.4 MG/DL 2.6 MG/DL Magnesium Level 1.8 MG/DL 1.6 MG/DL 1.6 MG/DL Alkaline Phosphatase 77 U/L 78 U/L 78 U/L Aspartate Amino Transf (AST/SGOT) 22 U/L 22 U/L 24 U/L Alanine Aminotransferase (ALT/SGPT) 20 U/L 24 U/L 22 U/L Total Bilirubin 0.3 MG/DL 0.2 MG/DL 0.2 MG/DL Sodium Level 128 MEQ/L 127 MEQ/L 127 MEQ/L Potassium Level 3.9 MEQ/L 4.3 MEQ/L 4.2 MEQ/L Chloride Level 99 MEQ/L 98 MEQ/L 97 MEQ/L Carbon Dioxide Level 21.4 MEQ/L 22.4 MEQ/L 22.3 MEQ/L Anion Gap 8 MEQ/L 7 MEQ/L 8 MEQ/L Estimat Glomerular Filtration Rate 112 ML/MIN 112 ML/MIN 126 ML/MIN Protein Corrected Calcium 7.7 MG/DL 8.1 MG/DL 8.2 MG/DL Prothrombin Time 12.3 SEC Prothromb Time International Ratio 1.1 RATIO Imaging Last Impressions Chest X-Ray 03/29/17 0000 Signed Impressions: Service Date/Time: Wednesday, March 29, 2017 12:17 - CONCLUSION: Stable chest. Isaac Stevenson MD FACR Tumor Localization 03/22/17 0000 Signed Impressions: Service Date/Time: Wednesday, March 22, 2017 13:03 - CONCLUSION: Nondiagnostic examination secondary to patient refusal Harry Lucio MD Abdomen X-Ray 03/08/17 0000 Signed Impressions: Service Date/Time: Wednesday, March 08, 2017 10:30 - CONCLUSION: Nonspecific, negative for obstruction or ileus. Isaac Stevenson MD FACR Lower Extremity CT 03/01/17 0000 Signed Impressions: Service Date/Time: Wednesday, March 01, 2017 11:12 - CONCLUSION: 1. No evidence of organized fluid collections to suggest an abscess. 2. Extensive soft tissue swelling surrounding the ankle and extending to the forefoot especially along the lateral aspect. 3. No erosive or destructive bone changes. 4. Bone defects compatible with previous excision device. Blake Rider MD Ankle X-Ray 02/26/17 0000 Signed Impressions: Service Date/Time: Sunday, February 26, 2017 17:15 - CONCLUSION: I see no retained surgical instruments. Isaac Stevenson MD FACR Upper Extremity Ultrasound 02/25/17 1734 Signed Impressions: Service Date/Time: February 17:54 - CONCLUSION: There is a thin fluid collection within the focal area of soft tissue swelling 2nd digit. Oscar Cassidy MD Hand X-Ray 02/25/17 0000 Signed Impressions: Service Date/Time: February 18:59 - CONCLUSION: No gross bony abnormality. Oscar Cassidy MD Lower Extremity Ultrasound 02/24/17 0000 Signed Impressions: Service Date/Time: Friday, February 24, 2017 13:41 - CONCLUSION: Negative for deep venous thrombosis. Isaac Stevenson MD FACR Head CT 02/24/17 0000 Signed Impressions: Service Date/Time: Wednesday, February 24, 2017 16:08 - CONCLUSION: 1. No acute intracranial abnormality. 2. Probable large mucocele in the sphenoid sinus. Ty Hankins MD Abdomen/Pelvis CT 02/24/17 0000 Signed Impressions: Service Date/Time: Friday, February 24, 2017 16:16 - CONCLUSION: 1. Marked gaseous distension of large and small bowel most suggestive of ileus. 2. There is no free air. 3. 2.2 cm left adrenal mass. 4. Distended bladder. Isaac Stevenson MD FACR Objective Remarks GENERAL: This is a well-nourished, well-developed patient, in no apparent distress. SKIN: No rashes, warm and dry HEAD: Atraumatic. Normocephalic. EYES: Pupils equal round and reactive. Extraocular motions intact. No scleral icterus. TONGUE MIDLINE- ORAL MUCOSA MOIST ENT: Nose without bleeding, or drainage, Airway patent. NECK: Trachea midline. Supple CARDIOVASCULAR: Regular rate and rhythm without murmurs, gallops, or rubs. S1, S2 NO S3 OR S4 NO HEAVE RESPIRATORY: Fair air entry bilaterally. No wheezes, rales, or rhonchi. GASTROINTESTINAL: Abdomen soft, non-tender, nondistended. Positive bowel sounds PEG IS GONE NOW GROIN SWOLLEN SCROTAL AREA-ELEVATED WITH BATH TOWEL- SANCHEZ IN PLACE MUSCULOSKELETAL:No cyanosis, or edema. Right and left arms are bandaged home right arm in lifting sling. Right LE IS BANDAGED HAS RIGHT BKA NEUROLOGICAL: Awake and alert. Moves all extremity. Normal speech.no focal neurological deficit : Scrotum swelling Procedures 03/10/2017 - Dr. Bullock exploration, wash, excisional debridement extensor tenosynovium right wrist/forearm/hand 03/08/17 - Dr. Bullock- exploration, wash, excisional debridement skin, subcutaneous tissue, extensor tenosynovitis right wrist and hand. Findings: necrotic tissue, minimal purulence, extensor tenosynovitis right wrist/hand 03/04/17 - Dr Gamez - Right leg and incision and drainage. Right foot delayed primary closure x3 03/04/17 - Dr. Bullock - Extensor tenosynovectomy second, third, fourth extensor compartments right wrist and excisional debridement wash index finger metacarpal phalangeal joint, excisional wash and excisional debridement left hand. 02/28/17 - Dr. Reyes - Right ankle wound debridement and washout. Implantation of antibiotic vancomycin beads. 02/28/17 - Dr. Bullock - Exploration, wash, excisional debridement index finger metacarpophalangeal joint right hand; Exploration, wash, excisional debridement metacarpophalangeal joint left index finger; Exploration, wash, excisional debridement extensor pollicis longus tendon right thumb and hand. 02/26/17 - Dr. Reyes - Right ankle incision and drainage, arthrotomy, removal infected hardware, bone biopsy. 02/26/17 - Dr. Bullock - Exploration, incision and drainage right hand abscess, Arthrotomy wash metacarpal phalangeal joint right index finger, Arthrotomy wash metacarpal phalangeal joint left index finger. Medications and IVs Current Medications Sodium Chloride 1,000 ml @ 999 mls/hr BOLUS ONCE IV Last administered on 13:38; Start 02/24/17 at 13:45; Stop 02/24/17 at 14:45; Status DC IV Flush (NS Flush) 2 ml UNSCH PRN IV FLUSH FLUSH AFTER USING IV ACCESS Last administered on 02/24/17 13:38; Start 02/24/17 at 13:45 Vancomycin HCl 1000 mg/Sodium Chloride 250 ml @ 250 mls/hr ONCE STAT IV Last administered on 02/24/17 15:49; Start 02/24/17 at 15:35; Stop 02/24/17 at 16:34; Status DC Cefepime HCl 2000 mg/Sodium Chloride 100 ml @ 200 mls/hr ONCE STAT IV Last administered on 02/24/17 16:36; Start 02/24/17 at 15:35; Stop 02/24/17 at 16:04; Status DC Potassium Bicarb/ Potassium Chloride (K-Lyte Cl Eff) 50 meq ONCE ONCE PO Last administered on 02/24/17 15:56; Start 02/24/17 at 16:00; Stop 02/24/17 at 16: 01; Status DC Iohexol (Omnipaque 350 Inj) 97 ml STK-MED ONCE IV Last administered on 16:29; Start 02/24/17 at 16:29; Stop 02/24/17 at 16:30; Status DC Sodium Chloride 1,000 ml @ 125 mls/hr Q8H IV Last administered on 03/02/17 09: 33; Start 02/24/17 at 18:00; Stop 03/02/17 at 13:08; Status DC Ondansetron HCl (Zofran Inj) 4 mg Q8HR PRN IV PUSH NAUSEA; Start 02/24/17 at 18: 00 Thiamine HCl (Vitamin B1) 100 mg ONCE ONCE PO Last administered on 02/24/17 20 :20; Start 02/24/17 at 20:15; Stop 02/24/17 at 20:16; Status DC Thiamine HCl (Vitamin B1) 100 mg DAILY PO Last administered on 04/01/17 08:42; Start 02/25/17 at 09:00 Potassium Chloride 100 ml @ 50 mls/hr Q2H IV Last administered on 02/24/17 22: 59; Start 02/24/17 at 20:30; Stop 02/25/17 at 00:29; Status DC Pharmacy Profile Note 0 ml @ 0 mls/hr UNSCH OTHER ; Start 02/24/17 at 20:15; Stop 03/02/17 at 13:23; Status DC Cefepime HCl 2000 mg/Sodium Chloride 100 ml @ 200 mls/hr Q12H IV Last administered on 02/27/17 05:51; Start 02/25/17 at 07:00; Stop 02/27/17 at 14:53; Status DC Vancomycin HCl 1500 mg/Sodium Chloride 515 ml @ 257.5 mls/ hr Q18H IV Last administered on 02/25/17 10:30; Start 02/25/17 at 10:00; Stop 02/25/17 at 11:30; Status DC Miscellaneous Information SPECIFIC LAB TO BE DRAWN:VANCO TROUGH DATE TO BE DR... ONCE ONCE .XX ; Start 02/26/17 at 21:45; Stop 02/26/17 at 21:46; Status DC Flumazenil (Romazicon Inj) 0.2 mg Q1M PRN IV PUSH SEE LABEL COMMENTS; Start 02/25/17 at 09:15 Lorazepam (Ativan) 1 mg Q4H PRN PO agitation Last administered on 03/20/17 03: 18; Start 02/25/17 at 09:15 Lorazepam (Ativan Inj) 1 mg Q4H PRN IV PUSH agitation when not taking po Last administered on 03/05/17 02:41; Start 02/25/17 at 09:15 Lorazepam (Ativan) 2 mg Q2H PRN PO CIWA 11-14; Start 02/25/17 at 09:15; Stop 02/28/17 at 07:44; Status DC Lorazepam (Ativan Inj) 2 mg Q2H PRN IV PUSH CIWA 11-14 Last administered on 02/26 18:14; Start 02/25/17 at 09:15; Stop 02/28/17 at 07:44; Status DC Lorazepam (Ativan Inj) 2 mg Q1H PRN IV PUSH CIWA 15-20 Last administered on 02/25 21:37; Start 02/25/17 at 09:15; Stop 02/28/17 at 07:44; Status DC Lorazepam (Ativan Inj) 2 mg Q15M PRN IV PUSH CIWA > 20 Last administered on 02/26 06:25; Start 02/25/17 at 09:15; Stop 02/28/17 at 07:44; Status DC Multivitamins (Theragran) 1 tab DAILY PO Last administered on 04/01/17 08:42; Start 02/26/17 at 09:00 Acetaminophen (Tylenol) 650 mg Q4H PRN PO FEVER Last administered on 03/07/17 04:47; Start 02/25/17 at 09:15; Stop 03/12/17 at 10:47; Status DC Lisinopril (Prinivil) 10 mg DAILY PO ; Start 02/26/17 at 09:00; Stop 03/08/17 at 21:09; Status DC Enoxaparin Sodium (Lovenox Inj) 40 mg Q24H SQ Last administered on 03/07/17 10 :00; Start 02/25/17 at 10:00; Stop 03/10/17 at 12:17; Status DC Vancomycin HCl 1500 mg/Sodium Chloride 515 ml @ 257.5 mls/ hr Q12H IV Last administered on 02/26/17 09:42; Start 02/25/17 at 22:00; Stop 02/26/17 at 12:06; Status DC Miscellaneous Information SPECIFIC LAB TO BE ... ONCE ONCE .XX Last administered on 02/26/17 09:45; Start 02/26/17 at 09:45; Stop 02/26/17 at 09:46; Status DC Chlordiazepoxide (Librium) 25 mg Q8H PO ; Start 02/25/17 at 17:00; Stop 02/25/17 at 20:24; Status DC Gentamicin Sulfate 70 mg/ Sodium Chloride 101.75 ml @ 100 mls/ hr ONCE ONCE IV Last administered on 02/25/17 18:51; Start 02/25/17 at 18:30; Stop 02/25/17 at 19:31; Status DC Dexmedetomidine HCl 200 mcg/ Sodium Chloride 52 ml @ 0 mls/hr TITRATE IV Last administered on 02/27/17 13:55; Start 02/25/17 at 17:30; Stop 03/09/17 at 23:34; Status DC Acetaminophen (Ofirmev Inj) 650 mg Q6H PRN IV TEMP >101 Last administered on 20:12; Start 02/25/17 at 21:00 Iohexol (Omnipaque 350 Inj) 75 ml STK-MED ONCE IV Last administered on 21:15; Start 02/25/17 at 21:15; Stop 02/25/17 at 21:16; Status DC Potassium Chloride 100 ml @ 50 mls/hr Q2H PRN IV For Potassium 2.8 - 3.2 mEq/L ; Start 02/25/17 at 22:45; Stop 03/01/17 at 23:53; Status DC Potassium Chloride 100 ml @ 50 mls/hr Q2H PRN IV For Potassium 2.8 - 3.2 mEq/ L Last administered on 02/28/17t 12:32; Start 02/25/17 at 22:45; Stop 03/01/17 at 23:53; Status DC Potassium Bicarb/ Potassium Chloride (K-Lyte Cl Eff) 50 meq UNSCH PRN PO For Potassium 3.3 - 3.5 mEq/L; Start 02/25/17 at 22:45; Stop 03/01/17 at 23:53; Status DC Potassium Chloride 100 ml @ 25 mls/hr UNSCH PRN IV For Potassium 3.3 - 3.5 mEq /L; Start 02/25/17 at 22:45; Stop 03/01/17 at 23:53; Status DC Potassium Chloride 100 ml @ 50 mls/hr Q2H PRN IV For Potassium 3.3 - 3.5 mEq/ L Last administered on 02/28/17 06:39; Start 02/25/17 at 22:45; Stop 03/01/17 at 23:53; Status DC Magnesium Sulfate 4 gm/Sodium Chloride 100 ml @ 50 mls/hr UNSCH PRN IV For Magnesium 0.9 - 1.1 mg/dL; Start 02/25/17 at 22:45; Stop 03/01/17 at 23:53; Status DC Magnesium Oxide (Mag-Ox) 800 mg UNSCH PRN PO For Magnesium 1.2 - 1.6 mg/dL; Start 02/25/17 at 22:45; Stop 03/01/17 at 23:53; Status DC Magnesium Sulfate 2 gm/Sodium Chloride 100 ml @ 50 mls/hr UNSCH PRN IV For Magnesium 1.2 - 1.6 mg/dL; Start 02/25/17 at 22:45; Stop 03/01/17 at 23:53; Status DC Potassium Phosphate (K-Phos) 2,000 mg Q4H PRN PO For Phosphorus < 2.5 mg/dL; Start 02/25/17 at 22:45; Stop 03/01/17 at 23:53; Status DC Sodium Phosphate 30 mmol/Sodium Chloride 250 ml @ 42 mls/hr UNSCH PRN IV For Phosphorus < 2.5 mg/dL Last administered on 02/26/17 23:19; Start 02/25/17 at 22: 45; Stop 03/01/17 at 23:53; Status DC Potassium Phosphate (K-Phos) 2,000 mg UNSCH PRN PO/TUBE SEE LABEL COMMENTS; Start 02/25/17 at 22:45; Stop 03/01/17 at 23:53; Status DC Potassium Phosphate 30 mmol/ Sodium Chloride 260 ml @ 42 mls/hr UNSCH PRN IV SEE LABEL COMMENTS; Start 02/25/17 at 22:45; Stop 03/01/17 at 23:53; Status DC Labetalol HCl (Trandate Inj) 10 mg Q6H PRN IV PUSH SBP >165; Start 02/25/17 at 23:15 Pantoprazole Sodium (Protonix Inj) 40 mg Q24H IV PUSH Last administered on 22:58; Start 02/26/17 at 00:00 Miscellaneous Information Patient in critical care unit? Ass... [id number] .XX ; Start 02/26/17 at 07:15 Mupirocin (Bactroban Nasal 2% Oint) 1 applic BID NASAL Last administered on 04/01 08:41; Start 02/26/17 at 09:00 Chlorhexidine Gluconate (Chlorhexidine 2% Cloth) 3 pack DAILY@04 TOPICAL Last administered on 03/03/17 04:00; Start 02/27/17 at 04:00; Stop 03/03/17 at 04:01; Status DC Chlorhexidine Gluconate (Chlorhexidine 2% Cloth) 3 pack UNSCH PRN TOPICAL HYGIENIC CARE; Start 02/26/17 at 07:15; Stop 03/03/17 at 07:07; Status DC Lidocaine HCl (Xylocaine 2% Inj) 50 ml STK-MED ONCE .ROUTE ; Start 02/26/17 at 09 :35; Stop 02/26/17 at 09:36; Status DC Bupivacaine HCl (Marcaine Pf 0.5% Inj) 60 ml STK-MED ONCE .ROUTE ; Start at 09:35; Stop 02/26/17 at 09:36; Status DC Mupirocin (Bactroban 2% Oint) 22 applic STK-MED ONCE .ROUTE ; Start 02/26/17 at 09:35; Stop 02/26/17 at 09:36; Status DC Vancomycin HCl 1250 mg/Sodium Chloride 262.5 ml @ 250 mls/hr Q12H IV Last administered on 03/02/17 09:33; Start 02/26/17 at 22:00; Stop 03/02/17 at 13:23; Status DC Miscellaneous Information SPECIFIC LAB TO BE BIA... ONCE ONCE .XX Last administered on 02/27/17 22:46; Start 02/27/17 at 21:45; Stop 02/27/17 at 21:46; Status DC Neomycin/Polymyxin (Neosporin G.u. Irr) 3 ml STK-MED ONCE TOPICAL Last administered on 02/26/17 13:06; Start 02/26/17 at 13:06; Stop 02/26/17 at 16:26; Status DC Neomycin/Polymyxin (Neosporin G.u. Irr) 4 ml STK-MED ONCE TOPICAL Last administered on 02/26/17 15:47; Start 02/26/17 at 15:47; Stop 02/26/17 at 16:26; Status DC Fentanyl Citrate (fentaNYL INJ) 250 mcg STK-MED ONCE .ROUTE ; Start 02/26/17 at 18:16; Stop 02/26/17 at 18:17; Status DC Fentanyl Citrate (fentaNYL INJ) 100 mcg STK-MED ONCE .ROUTE ; Start 02/26/17 at 18:16; Stop 02/26/17 at 18:17; Status DC Miscellaneous Information ALL NURSING DEPARTME... UNSCH PRN .XX SEE LABEL COMMENTS; Start 02/26/17 at 17:57; Stop 02/27/17 at 17:56; Status DC Clonidine (Catapres) 0.3 mg Q8HR PO Last administered on 04/01/17 12:47; Start 02/26/17 at 22:11 Diazepam (Valium) 5 mg Taper DAILY PO Last administered on 03/06/17 09:49; Start 02/26/17 at 22:15; Stop 03/06/17 at 22:14; Status DC Water (Free Water) 200 ml Q8HR G-TUBE Last administered on 02/27/17 22:31; Start 02/27/17 at 06:55; Stop 02/28/17 at 07:41; Status DC Rifampin 300 mg/ Sodium Chloride 100 ml @ 100 mls/hr Q12H IV Last administered on 03/02/17 14:41; Start 02/27/17 at 15:00; Stop 03/02/17 at 16:41; Status DC Oxycodone HCl (Roxicodone) 5 mg Q4H PRN PO pain 1-5 Last administered on 09:26; Start 02/28/17 at 07:45 Hydromorphone HCl (Dilaudid Pf Inj) 0.5 mg Q3H PRN IV PUSH pain 6-10 or not taking po Last administered on 04/01/17 12:48; Start 02/28/17 at 07:45 Water (Free Water) 300 ml Q4HR G-TUBE Last administered on 03/02/17 20:00; Start 02/28/17 at 08:00; Stop 03/02/17 at 23:07; Status DC Vancomycin HCl (Vancomycin Inj) 1,000 mg STK-MED ONCE .ROUTE Last administered on 02/28/17 09:01; Start 02/28/17 at 09:01; Stop 02/28/17 at 09:02; Status DC Vancomycin HCl (Vancomycin Inj) 1,000 mg STK-MED ONCE .ROUTE Last administered on 02/28/17 09:33; Start 02/28/17 at 09:33; Stop 02/28/17 at 09:34; Status DC Vancomycin HCl (Vancomycin Inj) 1,000 mg STK-MED ONCE .ROUTE Last administered on 02/28/17 09:36; Start 02/28/17 at 09:33; Stop 02/28/17 at 09:34; Status DC Daptomycin 450 mg/ Sodium Chloride 100 ml @ 200 mls/hr Q24H IV Last administered on 03/05/17 13:41; Start 02/28/17 at 12:00; Stop 03/05/17 at 18:00 ; Status DC Vancomycin HCl (Vancomycin Inj) 1,000 mg STK-MED ONCE .ROUTE Last administered on 02/28/17 10:45; Start 02/28/17 at 10:42; Stop 02/28/17 at 10:43; Status DC Vancomycin HCl (Vancomycin Inj) 500 mg STK-MED ONCE .ROUTE Last administered on 02/28/17 10:45; Start 02/28/17 at 10:42; Stop 02/28/17 at 10:43; Status DC Fentanyl Citrate (fentaNYL INJ) 250 mcg STK-MED ONCE .ROUTE ; Start 02/28/17 at 11:48; Stop 02/28/17 at 11:49; Status DC Miscellaneous Information ALL NURSING DEPARTME... UNSCH PRN .XX SEE LABEL COMMENTS; Start 02/28/17 at 11:33; Stop 03/01/17 at 11:32; Status DC Miscellaneous Information SPECIFIC LAB TO BE BIA... ONCE ONCE .XX ; Start 03/04 at 09:45; Stop 03/04/17 at 09:46; Status Cancel Sodium Chloride 1,000 ml @ 999 mls/hr BOLUS ONCE IV Last administered on 13:28; Start 03/02/17 at 13:15; Stop 03/02/17 at 14:15; Status DC Sodium Chloride 1,000 ml @ 125 mls/hr Q8H IV Last administered on 03/02/17 14: 18; Start 03/02/17 at 13:15; Stop 03/02/17 at 14:30; Status DC Rifampin (Rifampin) 300 mg Q12HR PO Last administered on 03/23/17 08:42; Start 03/02/17 at 21:00; Stop 03/23/17 at 18:40; Status DC Potassium Chloride 20 meq/ Sodium Chloride 38.5 meq/Sterile Water 1,010 ml @ 55 mls/hr [id number] IV Last administered on 03/09/17 22:51; Start 03/03/17 at 11: 00; Stop 03/09/17 at 23:36; Status DC Furosemide (Lasix Inj) 20 mg ONCE ONCE IV PUSH Last administered on 03/03/17 10:19; Start 03/03/17 at 09:30; Stop 03/03/17 at 09:43; Status DC Carvedilol (Coreg) 6.25 mg Q12HR PO Last administered on 03/31/17 22:58; Start 03/03/17 at 21:00 Vancomycin HCl (Vancomycin Inj) 1,000 mg STK-MED ONCE .ROUTE Last administered on 03/04/17 15:52; Start 03/04/17 at 15:10; Stop 03/04/17 at 15:11; Status DC Fentanyl Citrate (fentaNYL INJ) 100 mcg STK-MED ONCE .ROUTE ; Start 03/04/17 at 16:38; Stop 03/04/17 at 16:39; Status DC Fentanyl Citrate (fentaNYL INJ) 250 mcg STK-MED ONCE .ROUTE ; Start 03/04/17 at 16:38; Stop 03/04/17 at 16:39; Status DC Vancomycin HCl (Vancomycin Inj) 1,000 mg STK-MED ONCE .ROUTE Last administered on 03/04/17 16:52; Start 03/04/17 at 16:59; Stop 03/04/17 at 17:00; Status DC Fentanyl Citrate (fentaNYL INJ) 100 mcg STK-MED ONCE .ROUTE ; Start 03/04/17 at 18:24; Stop 03/04/17 at 18:25; Status DC Fentanyl Citrate (fentaNYL INJ) 250 mcg STK-MED ONCE .ROUTE ; Start 03/04/17 at 18:25; Stop 03/04/17 at 18:26; Status DC Miscellaneous Information ALL NURSING DEPARTME... UNSCH PRN .XX SEE LABEL COMMENTS; Start 03/04/17 at 19:15; Stop 03/05/17 at 19:14; Status DC Daptomycin 550 mg/ Sodium Chloride 100 ml @ 200 mls/hr Q24H IV Last administered on 04/01/17 12:47; Start 03/06/17 at 12:00 Bisacodyl (Dulcolax Supp) 10 mg DAILY PRN RECTAL SEVERE CONSITIPATION; Start at 21:00 Lactulose (Lactulose Liq) 30 ml DAILY PRN NG SEVERE CONSITIPATION Last administered on 03/07/17 18:45; Start 03/06/17 at 21:00 Docusate Sodium (Colace Liq) 100 mg Q12HR PO Last administered on 03/09/17 09: 30; Start 03/06/17 at 21:15; Status Future Hold Sodium Chloride 250 ml @ 15 mls/hr ONCE ONCE IV Last administered on 00:27; Start 03/07/17 at 19:00; Stop 03/08/17 at 12:06; Status DC Furosemide (Lasix Inj) 20 mg ONCE ONCE IV Last administered on 03/08/17t 03:49 ; Start 03/07/17 at 19:00; Stop 03/07/17 at 19:01; Status DC Polyethylene Glycol/ Electrolytes (Colyte Liq) 4,000 ml ONCE ONCE PO ; Start at 11:00; Stop 03/08/17 at 11:01; Status Cancel Mupirocin (Bactroban 2% Oint) 22 applic STK-MED ONCE .ROUTE ; Start 03/08/17 at 12:10; Stop 03/08/17 at 12:11; Status DC Lidocaine HCl (Xylocaine 2% Inj) 50 ml STK-MED ONCE .ROUTE ; Start 03/08/17 at 12:13; Stop 03/08/17 at 12:14; Status DC Bupivacaine HCl (Marcaine Pf 0.5% Inj) 30 ml STK-MED ONCE .ROUTE ; Start at 12:17; Stop 03/08/17 at 12:18; Status DC Famotidine (Pepcid Inj) 20 mg STK-MED ONCE .ROUTE ; Start 03/08/17 at 13:17; Stop 03/08/17 at 13:18; Status DC Vancomycin HCl (Vancomycin Inj) 1,000 mg STK-MED ONCE .ROUTE Last administered on 03/08/17t 14:35; Start 03/08/17 at 14:07; Stop 03/08/17 at 14:08; Status DC Sodium Chloride (Sodium Chloride 0.9% Inj) 20 ml STK-MED ONCE .ROUTE ; Start at 14:07; Stop 03/08/17 at 14:08; Status DC Vancomycin HCl (Vancomycin Inj) 1,000 mg STK-MED ONCE .ROUTE ; Start 03/08/17 at 14:42; Stop 03/08/17 at 14:43; Status DC Sodium Chloride (Sodium Chloride 0.9% Inj) 20 ml STK-MED ONCE .ROUTE ; Start at 14:42; Stop 03/08/17 at 14:43; Status DC Fentanyl Citrate (fentaNYL INJ) 500 mcg STK-MED ONCE .ROUTE ; Start 03/08/17 at 15:51; Stop 03/08/17 at 15:52; Status DC Miscellaneous Information ALL NURSING DEPARTME... UNSCH PRN .XX SEE LABEL COMMENTS; Start 03/08/17 at 15:40; Stop 03/09/17 at 15:39; Status DC Polyethylene Glycol/ Electrolytes (Colyte Liq) 4,000 ml ONCE ONCE NG Last administered on 03/08/17 22:42; Start 03/08/17 at 20:00; Stop 03/08/17 at 20:01 ; Status DC Lisinopril (Prinivil) 2.5 mg DAILY PO Last administered on 03/31/17 09:22; Start 03/09/17 at 09:00 Miscellaneous (Pill Splitter) 1 ea UNSCH PRN OTHER SEE LABEL COMMENTS; Start at 21:15 Dextrose 1,000 ml @ 84 mls/hr [id number] IV Last administered on 03/11/17 21:24 ; Start 03/09/17 at 23:45; Stop 03/11/17 at 23:38; Status DC Enoxaparin Sodium (Lovenox Inj) 40 mg Q24H SQ Last administered on 04/01/17 12: 47; Start 03/10/17 at 13:00; Status Future hold Bupivacaine HCl (Marcaine Pf 0.5% Inj) 30 ml STK-MED ONCE .ROUTE ; Start at 14:50; Stop 03/10/17 at 14:51; Status DC Lidocaine HCl (Xylocaine 2% Inj) 50 ml STK-MED ONCE .ROUTE ; Start 03/10/17 at 14:51; Stop 03/10/17 at 14:52; Status DC Bacitracin (Baciguent Oint) 15 applic STK-MED ONCE .ROUTE Last administered on 03/10/17 16:43; Start 03/10/17 at 14:51; Stop 03/10/17 at 14:52; Status DC Vancomycin HCl (Vancomycin Inj) 1,000 mg STK-MED ONCE .ROUTE Last administered on 03/10/17 15:49; Start 03/10/17 at 15:45; Stop 03/10/17 at 15:46; Status DC Sodium Chloride (Sodium Chloride 0.9% Inj) 20 ml STK-MED ONCE .ROUTE ; Start at 15:45; Stop 03/10/17 at 15:46; Status DC Neomycin/Polymyxin (Neosporin G.u. Irr) 2 ml STK-MED ONCE TOPICAL Last administered on 03/10/17 15:49; Start 03/10/17 at 15:49; Stop 03/10/17 at 15:59 ; Status DC Bacitracin (Baciguent Oint) 30 applic STK-MED ONCE .ROUTE Last administered on 03/10/17 16:44; Start 03/10/17 at 16:41; Stop 03/10/17 at 16:42; Status DC Hydromorphone HCl (Dilaudid Pf Inj) 2 mg STK-MED ONCE .ROUTE ; Start 03/10/17 at 16:47; Stop 03/10/17 at 16:48; Status DC Fentanyl Citrate (fentaNYL INJ) 250 mcg STK-MED ONCE .ROUTE ; Start 03/10/17 at 17:22; Stop 03/10/17 at 17:23; Status DC Morphine Sulfate (*morphine INJ PERIprocedure ONLY) 8 mg STK-MED ONCE .ROUTE Last administered on 03/10/17 18:12; Start 03/10/17 at 18:12; Stop 03/10/17 at 18:13; Status DC Miscellaneous Information ALL NURSING DEPARTME... UNSCH PRN .XX SEE LABEL COMMENTS; Start 03/10/17 at 14:30; Stop 03/11/17 at 14:29; Status DC Propofol (Diprivan 200 Mg/20 ml Inj) 200 mg STK-MED ONCE IV PUSH ; Start at 15:29; Stop 03/11/17 at 15:47; Status DC Oxybenzone/ Padimate O/ Dimethicone (Blistex Lip [place]) 4.25 applic STK-MED ONCE TOPICAL Last administered on 03/11/17 16:02; Start 03/11/17 at 16:02; Stop at 16:03; Status DC Miscellaneous Information ALL NURSING DEPARTME... UNSCH PRN .XX SEE LABEL COMMENTS; Start 03/11/17 at 16:00; Stop 03/12/17 at 15:59; Status DC Succinylcholine Chloride (Quelicin Inj) 200 mg STK-MED ONCE IV PUSH ; Start at 15:27; Stop 03/12/17 at 08:59; Status DC Sodium Chloride 250 ml @ 15 mls/hr ONCE ONCE IV Last administered on 10:15; Start 03/12/17 at 10:15; Stop 03/13/17 at 02:54; Status DC Acetaminophen (Tylenol) 650 mg Q4H PRN PO SEE LABEL COMMENTS; Start 03/12/17 at 10:15; Stop 03/12/17 at 14:16; Status DC Diphenhydramine HCl (Benadryl) 25 mg Q4H PRN PO SEE LABEL COMMENTS; Start 03/12 at 10:15; Stop 03/12/17 at 14:16; Status DC Potassium Chloride 100 ml @ 50 mls/hr Q2H IV Last administered on 03/12/17 13 :25; Start 03/12/17 at 11:00; Stop 03/12/17 at 14:59; Status DC Lidocaine HCl (Xylocaine 2% Inj) 50 ml STK-MED ONCE .ROUTE ; Start 03/12/17 at 13:04; Stop 03/12/17 at 13:05; Status DC Mupirocin (Bactroban 2% Oint) 22 applic STK-MED ONCE .ROUTE ; Start 03/12/17 at 13:06; Stop 03/12/17 at 13:07; Status DC Hydromorphone HCl (Dilaudid Pf Inj) 2 mg STK-MED ONCE .ROUTE ; Start 03/12/17 at 15:18; Stop 03/12/17 at 15:19; Status DC Acetaminophen (Ofirmev Inj) 1,000 mg STK-MED ONCE IV ; Start 03/12/17 at 15:18; Stop 03/12/17 at 15:19; Status DC Vancomycin HCl (Vancomycin Inj) 1,000 mg STK-MED ONCE .ROUTE Last administered on 03/12/17 15:54; Start 03/12/17 at 15:57; Stop 03/12/17 at 15:58; Status DC Neomycin/Polymyxin (Neosporin G.u. Irr) 2 ml STK-MED ONCE TOPICAL Last administered on 03/12/17 15:54; Start 03/12/17 at 15:54; Stop 03/12/17 at 16:15 ; Status DC Fentanyl Citrate (fentaNYL INJ) 250 mcg STK-MED ONCE .ROUTE ; Start 03/12/17 at 17:04; Stop 03/12/17 at 17:05; Status DC Miscellaneous Information ALL NURSING DEPARTME... UNSCH PRN .XX SEE LABEL COMMENTS; Start 03/12/17 at 17:30; Stop 03/13/17 at 17:29; Status DC Morphine Sulfate (*morphine INJ PERIprocedure ONLY) 8 mg STK-MED ONCE .ROUTE Last administered on 03/12/17 17:33; Start 03/12/17 at 17:33; Stop 03/12/17 at 17:34; Status DC Lidocaine HCl (Xylocaine 1% Inj) 10 ml ONCE@0700 ONCE OTHER ; Start 03/13/17 at 07:00; Stop 03/13/17 at 07:01; Status DC Potassium Chloride/Sodium Chloride 1,000 ml @ 75 mls/hr [id number] IV Last administered on 04/01/17 05:30; Start 03/13/17 at 11:30 Polyethylene Glycol/ Electrolytes (Colyte Liq) 4,000 ml ONCE ONCE PEG Last administered on 03/14/17 17:13; Start 03/14/17 at 16:00; Stop 03/14/17 at 16:01 ; Status DC Sodium Chloride 250 ml @ 15 mls/hr ONCE ONCE IV Last administered on 21:30; Start 03/13/17 at 20:00; Stop 03/14/17 at 12:39; Status DC Polyethylene Glycol/ Electrolytes (Colyte Liq) 4,000 ml ONCE ONCE PO Last administered on 03/15/17 17:19; Start 03/15/17 at 16:45; Stop 03/15/17 at 16:48 ; Status DC Propofol (Diprivan 200 Mg/20 ml Inj) 180 mg ONCE ONCE IV Last administered on 03/15/17 16:45; Start 03/15/17 at 16:43; Stop 03/15/17 at 16:45; Status DC Sodium Biphosphate/ Sodium Phosphate (Fleets Enema (Adult)) 133 ml ONCE ONCE RECTAL Last administered on 03/16/17 14:45; Start 03/16/17 at 14:15; Stop at 14:21; Status DC Sodium Biphosphate/ Sodium Phosphate (Fleets Enema (Adult)) 133 ml ONCE ONCE RECTAL Last administered on 03/17/17 09:49; Start 03/17/17 at 08:00; Stop at 08:01; Status DC Propofol (Diprivan 200 Mg/20 ml Inj) 100 mg ONCE ONCE IV PUSH ; Start at 15:00; Stop 03/16/17 at 15:01; Status DC Midazolam HCl (Versed Inj) 2 mg STK-MED ONCE .ROUTE ; Start 03/16/17 at 15:34; Stop 03/16/17 at 15:35; Status DC Vancomycin HCl (Vancomycin Inj) 1,000 mg STK-MED ONCE .ROUTE Last administered on 03/18/17 18:58; Start 03/18/17 at 18:15; Stop 03/18/17 at 18:16; Status DC Fentanyl Citrate (fentaNYL INJ) 200 mcg STK-MED ONCE .ROUTE ; Start 03/18/17 at 19:50; Stop 03/18/17 at 19:51; Status DC Methocarbamol (Robaxin) 500 mg Q8HR PO Last administered on 04/01/17 12:47; Start 03/19/17 at 14:00 Acetaminophen 100 ml @ As Directed STK-MED ONCE IV ; Start 03/24/17 at 09:21; Stop 03/24/17 at 09:22; Status DC Midazolam HCl (Versed Inj) 2 mg STK-MED ONCE .ROUTE ; Start 03/24/17 at 09:21; Stop 03/24/17 at 09:22; Status DC Fentanyl Citrate (fentaNYL INJ) 100 mcg STK-MED ONCE .ROUTE ; Start 03/24/17 at 09:21; Stop 03/24/17 at 09:22; Status DC Fentanyl Citrate (fentaNYL INJ) 100 mcg STK-MED ONCE .ROUTE ; Start 03/24/17 at 09:21; Stop 03/24/17 at 09:22; Status DC Hydromorphone HCl (*DILAUDID PF INJ PERIprocedural ONLY) 1 mg STK-MED ONCE .ROUTE Last administered on 03/24/17 14:53; Start 03/24/17 at 14:53; Stop at 14:54; Status DC Meperidine HCl (*DEMEROL INJ PERIprocedural ONLY) 25 mg STK-MED ONCE .ROUTE Last administered on 03/24/17 15:01; Start 03/24/17 at 15:01; Stop 03/24/17 at 15:02; Status DC Fentanyl Citrate (fentaNYL INJ) 400 mcg STK-MED ONCE .ROUTE ; Start 03/24/17 at 15:01; Stop 03/24/17 at 15:02; Status DC Miscellaneous Information ALL NURSING DEPARTME... UNSCH PRN .XX SEE LABEL COMMENTS; Start 03/24/17 at 14:52; Stop 03/25/17 at 14:51; Status DC Polyethylene Glycol (Miralax) 17 gm DAILY PO ; Start 03/24/17 at 16:30; Status Cancel Acetaminophen (Tylenol) 650 mg Q4H PRN PO fever Last administered on 03/25/17 10:02; Start 03/25/17 at 10:00 Piperacillin Sod/ Tazobactam Sod 100 ml @ 200 mls/hr Q8H IV Last administered on 03/29/17 12:36; Start 03/25/17 at 20:00; Stop 03/29/17 at 14:34; Status DC Furosemide (Lasix Inj) 10 mg ONCE ONCE IV PUSH Last administered on 03/26/17 13:47; Start 03/26/17 at 13:30; Stop 03/26/17 at 13:34; Status DC Furosemide (Lasix Inj) 10 mg UNSCH X1 IV PUSH Last administered on 03/27/17 01 :31; Start 03/26/17 at 17:15; Stop 03/26/17 at 23:59; Status DC Levothyroxine Sodium (Synthroid) 50 mcg DAILY@0600 PO Last administered on 05:31; Start 03/30/17 at 06:00 Levothyroxine Sodium (Synthroid) 50 mcg ONCE ONCE PO Last administered on 12:55; Start 03/29/17 at 12:00; Stop 03/29/17 at 12:02; Status DC Levofloxacin (Levaquin) 500 mg DAILY PO Last administered on 04/01/17 08:42; Start 03/29/17 at 14:45; Stop 04/07/17 at 14:44 Propofol (Diprivan 200 Mg/20 ml Inj) 200 mg STK-MED ONCE IV ; Start 02/26/17 at 12:00; Stop 03/30/17 at 13:17; Status DC Neostigmine Methylsulfate (Prostigmin Inj) 3 mg STK-MED ONCE IV ; Start 02/26/17 at 12:00; Stop 03/30/17 at 13:17; Status DC Phenylephrine HCl (Neosynephrine/ NS 1000 Mcg/10ml Syr) 1,000 mcg STK-MED ONCE IV ; Start 02/26/17 at 12:00; Stop 03/30/17 at 13:17; Status DC Lactated Ringer's 2,000 ml @ As Directed STK-MED ONCE IV ; Start 02/26/17 at 12: 00; Stop 03/30/17 at 13:17; Status DC Propofol (Diprivan 200 Mg/20 ml Inj) 200 mg STK-MED ONCE IV ; Start 02/28/17 at 12:00; Stop 03/30/17 at 13:46; Status DC Neostigmine Methylsulfate (Prostigmin Inj) 3 mg STK-MED ONCE IV ; Start 02/28/17 at 12:00; Stop 03/30/17 at 13:46; Status DC Lactated Ringer's 2,000 ml @ As Directed STK-MED ONCE IV ; Start 02/28/17 at 12: 00; Stop 03/30/17 at 13:46; Status DC Propofol (Diprivan 200 Mg/20 ml Inj) 400 mg STK-MED ONCE IV ; Start 03/04/17 at 12:00; Stop 03/30/17 at 14:07; Status DC Ephedrine Sulfate (ePHEDrine/NS 25 MG/5 ML SYR) 25 mg STK-MED ONCE IV ; Start at 12:00; Stop 03/30/17 at 14:07; Status DC Phenylephrine HCl (Neosynephrine/ NS 1000 Mcg/10ml Syr) 2,000 mcg STK-MED ONCE IV ; Start 03/04/17 at 12:00; Stop 03/30/17 at 14:08; Status DC Ondansetron HCl (Zofran Inj) 4 mg STK-MED ONCE IV PUSH ; Start 03/04/17 at 12:00 ; Stop 03/30/17 at 14:08; Status DC Propofol (Diprivan 200 Mg/20 ml Inj) 200 mg STK-MED ONCE IV ; Start 03/08/17 at 12:00; Stop 03/30/17 at 14:49; Status DC Ephedrine Sulfate (ePHEDrine/NS 25 MG/5 ML SYR) 50 mg STK-MED ONCE IV ; Start at 12:00; Stop 03/30/17 at 14:49; Status DC Neostigmine Methylsulfate (Prostigmin Inj) 4 mg STK-MED ONCE IV ; Start at 12:00; Stop 03/30/17 at 14:49; Status DC Phenylephrine HCl (Neosynephrine/ NS 1000 Mcg/10ml Syr) 1,000 mcg STK-MED ONCE IV ; Start 03/08/17 at 12:00; Stop 03/30/17 at 14:49; Status DC Ondansetron HCl (Zofran Inj) 4 mg STK-MED ONCE IV PUSH ; Start 03/08/17 at 12:00 ; Stop 03/30/17 at 14:49; Status DC Lactated Ringer's 1,000 ml @ As Directed STK-MED ONCE IV ; Start 03/08/17 at 12 :00; Stop 03/30/17 at 14:49; Status DC Propofol (Diprivan 200 Mg/20 ml Inj) 200 mg STK-MED ONCE IV ; Start 03/10/17 at 12:00; Stop 03/30/17 at 15:08; Status DC Ephedrine Sulfate (ePHEDrine/NS 25 MG/5 ML SYR) 25 mg STK-MED ONCE IV ; Start at 12:00; Stop 03/30/17 at 15:08; Status DC Neostigmine Methylsulfate (Prostigmin Inj) 3 mg STK-MED ONCE IV ; Start at 12:00; Stop 03/30/17 at 15:08; Status DC Phenylephrine HCl (Neosynephrine/ NS 1000 Mcg/10ml Syr) 2,000 mcg STK-MED ONCE IV ; Start 03/10/17 at 12:00; Stop 03/30/17 at 15:08; Status DC Ondansetron HCl (Zofran Inj) 4 mg STK-MED ONCE IV PUSH ; Start 03/10/17 at 12:00 ; Stop 03/30/17 at 15:08; Status DC Lactated Ringer's 1,000 ml @ As Directed STK-MED ONCE IV ; Start 03/10/17 at 12 :00; Stop 03/30/17 at 15:08; Status DC Sodium Chloride 1,000 ml @ As Directed STK-MED ONCE IV ; Start 03/10/17 at 12: 00; Stop 03/30/17 at 15:08; Status DC Propofol (Diprivan 200 Mg/20 ml Inj) 200 mg STK-MED ONCE IV ; Start 03/12/17 at 12:00; Stop 03/30/17 at 15:20; Status DC Ephedrine Sulfate (ePHEDrine/NS 25 MG/5 ML SYR) 25 mg STK-MED ONCE IV ; Start at 12:00; Stop 03/30/17 at 15:20; Status DC Phenylephrine HCl (Neosynephrine/ NS 1000 Mcg/10ml Syr) 1,000 mcg STK-MED ONCE IV ; Start 03/12/17 at 12:00; Stop 03/30/17 at 15:20; Status DC Ondansetron HCl (Zofran Inj) 4 mg STK-MED ONCE IV PUSH ; Start 03/12/17 at 12:00 ; Stop 03/30/17 at 15:20; Status DC Lactated Ringer's 1,000 ml @ As Directed STK-MED ONCE IV ; Start 03/12/17 at 12 :00; Stop 03/30/17 at 15:20; Status DC Propofol (Diprivan 200 Mg/20 ml Inj) 200 mg STK-MED ONCE IV ; Start 03/18/17 at 12:00; Stop 03/30/17 at 15:38; Status DC Ondansetron HCl (Zofran Inj) 4 mg STK-MED ONCE IV PUSH ; Start 03/18/17 at 12:00 ; Stop 03/30/17 at 15:38; Status DC Neostigmine Methylsulfate (Prostigmin Inj) 3 mg STK-MED ONCE IV ; Start at 12:00; Stop 03/30/17 at 15:38; Status DC Phenylephrine HCl (Neosynephrine/ NS 1000 Mcg/10ml Syr) 1,000 mcg STK-MED ONCE IV ; Start 03/18/17 at 12:00; Stop 03/30/17 at 15:38; Status DC Urinary Catheter: Yes A/P Problem List: (1) Sepsis ICD Code: A41.9 - Sepsis, unspecified organism Status: Acute (2) Right foot infection ICD Code: L08.9 - Local infection of the skin and subcutaneous tissue, unspecified Status: Acute (3) Encephalopathy ICD Code: G93.40 - Encephalopathy, unspecified Status: Acute (4) Alcoholism ICD Code: F10.20 - Alcohol dependence, uncomplicated Status: Chronic (5) Hypothyroidism ICD Code: E03.9 - Hypothyroidism, unspecified Assessment and Plan 61-year-old male admitted secondary to numerous infections including bilateral hands and right ankle. Previous history of right ankle. Patient also had encephalopathy secondary to infection and alcohol withdrawal time of admit. Encephalopathy has improved. Continued treatments of infections are ongoing. Status post I&D of right elbow. Continue wound care. Robaxin started for muscle spasms. 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 distant showering of emboli to other joints. MRSA bacteremia Right ankle hardware infection, s/p partial removal of hardware. Deeper hardware embedded. SP RIGHT BKA Bilateral UE hand abscess and tenosynovitis, septic arthritis s.p multiple debridements. Recent fever on 03/25 (resolved) CXR showed possible b/l infiltrate but no clinical respiratory symptoms, UTI with + UA , lactic acidosis (improved), on zosyn with dapto Antibiotic per ID Plan for long-term IV antibiotics, rifampin for 6 weeks Likely will need alf facility placement Continue oxycodone and Dilaudid for pain May still need further surgical intervention Hand surgeon following Podiatry following ID following Multiple surgeries thus far: - podiatry Dr. Reyes/Dr. Gamez on 02/26, 02/28, 03/04 - hand surgeon Dr. Bullock on 02/26, 02/28, 03/04, 03/08, 03/10 Anemia Most recent hemoglobin is 8.0 Follow CBC Status post blood transfusion Acute Toxic/Metabolic Encephalopathy secondary to Sepsis Acute Alcohol Withdrawal Resolved Hypernatremia Resolved Hypokalemia Replace as needed Continue to monitor Hypertension Continue clonidine and Coreg, cardiology initiate low dose lisinopril, monitor renal function Follow blood pressures Adjust as needed for control Mild Systolic CHF Scrotal edema EF of 40-45% with global hypokinesis found on 02/28/17 Continue beta amarjit Following BMP, consider initiating diuresis, (patient recently had fever and lactic acidosis) HYPOTHYROIDISM START SYNTHROID 50MCG DAILY THADDEUS possibly vanco induced Monitor renal function Avoid nephrotoxins Previous event was likely secondary to ATN Nephrology following Urinary retention Monitor urine output Hepatitis C Standard precautions Dysphagia: Improved patient on regular diet Dietitian to assess tapering tube feed DVT Prophylaxis Lovenox AM LABS CONTINUE CURRENT CARE DC PEG CONSULT GI TO REMOVE?- PEG OUT 9-7 Problem Qualifiers (1) Sepsis: Isaac Pink DO Apr 01, 2017 14:19
[2017-04-01 16:00] VITALS: BP 116/61; PULSE 69; RESP 18; TEMP 98.7; O2SAT 97
[2017-04-01 20:00] VITALS: BP_SYST 119; BP_SYST 159; BP_DIAS 66; BP_DIAS 73; PULSE 55; PULSE 72; RESP 20; TEMP 97.9; TEMP 98.9; O2SAT 100; O2SAT 96
[2017-04-01] MEDS: PANTOPRAZOLE SODIUM 40 MG VIAL IV PUSH SCH (23:48)
[2017-04-02] VITALS: BP 130/77; PULSE 77; RESP 18; TEMP 97.6; O2SAT 97
[2017-04-02] MEDS: HYDROmorphone HCL PF 1 MG/ML VIAL IV PUSH PRN ×3 (02:33→09:10)
[2017-04-02 04:00] VITALS: BP 131/78; PULSE 67; RESP 20; TEMP 98.5; O2SAT 95
[2017-04-02] MEDS: cloNIDine HCL 0.3 MG TAB PO SCH ×3 (05:46→21:24)
[2017-04-02] MEDS: METHOCARBAMOL 500 MG TAB PO SCH ×3 (05:46→21:24)
[2017-04-02] MEDS: LEVOTHYROXINE SODIUM 50 MCG TAB PO SCH (05:49)
[2017-04-02 07:56] VITALS: BP 114/73; PULSE 102; RESP 19; TEMP 96.7; O2SAT 100
[2017-04-02] MEDS: LEVOFLOXACIN 500 MG TAB PO SCH (09:08)
[2017-04-02] MEDS: CARVEDILOL 6.25 MG TAB PO SCH ×2 (09:08→21:24)
[2017-04-02] MEDS: MUPIROCIN 2% OINT 1 APPLIC/GM SYR NASAL SCH ×2 (09:08→21:24)
[2017-04-02] MEDS: LISINOPRIL 5 MG TAB PO SCH (09:09)
[2017-04-02] MEDS: MULTIVITAMIN TAB PO SCH (09:09)
[2017-04-02] MEDS: THIAMINE HCL 100 MG TAB PO SCH (09:10)
[2017-04-02 11:37] VITALS: BP 117/73; PULSE 71; RESP 19; TEMP 96.8; O2SAT 100
--- NOTE | 2017-04-02 12:50 | HHI.PR ---
Subjective Remarks Follow up on MRSA endocarditis sepsis and bacteremia, right ankle hardware infection, bilateral upper extremity hand abscess and Pricila synovitis septic arthritis, catheter associated UTI acute renal failure hypertension alcoholism patient Is doing okay today, oral diet resumed after he past speech, consider tapering to proceed if dietitian agreed 03-28 NO NEW COMPLAINTS CONTINUE ANTIBIOTICS AND WOUND CARE DW RN AND PATIENT - RIGHT BKA DRESSED NO NEW COMPLAINTS NO SOB, NO CHEST PAIN HYPOTHYROID- START SYNTHROID 50MCG 03-30 NO NEW COMPLAINTS HAS CHRONIC BACK PAIN NO SOB, NO CHEST PAIN DW RN AND PATIENT CONTINUE ANTIBIOTICS 6 CONSULT GI REGARDING PEG REMOVAL AM LABS CHRONIC PAIN NO SOB, NO CHEST PAIN CONTINUE ON ANTIBIOTICS 04-01 HAD PEG TUBE REMOVED BY GI NO SOB, NO CHEST PAIN DW RN AND PT 9-8 complains of pain needs oral meds Objective Vitals Vital Signs Date Time Temp Pulse Resp B/P (MAP) Pulse Ox O2 Delivery O2 Flow Rate FiO2 04/02/17 11:37 96.8 71 19 117/73 (88) 100 04/02/17 10:59 18 04/02/17 07:56 96.7 102 19 114/73 (87) 100 04/02/17 04:00 98.5 67 20 131/78 (95) 95 04/02/17 00:00 97.6 77 18 130/77 (94) 97 04/01/17 20:10 98 Room Air 04/01/17 20:00 97.9 55 20 159/73 (101) 100 04/01/17 20:00 98.9 72 20 119/66 (83) 96 04/01/17 18:00 97 Room Air 04/01/17 16:00 98.7 69 18 116/61 (79) 97 I/O 04/01/17 04/01/17 04/01/17 04/02/17 04/02/17 04/02/17 07:00 15:00 23:00 07:00 15:00 23:00 Intake Total 720 ml 1207 ml Output Total 825 ml 1875 ml Balance -105 ml -668 ml Intake Oral 720 ml 480 ml IV Total 727 ml Output Urine Total 825 ml 1875 ml # Bowel Movements 1 Result Diagram: 04/01/17 0936 04/01/17 0936 Other Results Laboratory Tests Test 03/31/17 06:33 04/01/17 09:26 04/01/17 09:36 White Blood Count 9.8 TH/MM3 8.9 TH/MM3 Red Blood Count 3.51 MIL/MM3 3.17 MIL/MM3 Hemoglobin 10.2 GM/DL 9.4 GM/DL Hematocrit 30.8 % 27.8 % Mean Corpuscular Volume 87.7 FL 87.8 FL Mean Corpuscular Hemoglobin 29.0 PG 29.6 PG Mean Corpuscular Hemoglobin Concent 33.1 % 33.7 % Red Cell Distribution Width 16.8 % 16.6 % Platelet Count 284 TH/MM3 268 TH/MM3 Mean Platelet Volume 8.7 FL 8.8 FL Neutrophils (%) (Auto) 75.2 % 73.1 % Lymphocytes (%) (Auto) 14.9 % 14.9 % Monocytes (%) (Auto) 6.9 % 8.6 % Eosinophils (%) (Auto) 2.4 % 2.9 % Basophils (%) (Auto) 0.6 % 0.5 % Neutrophils # (Auto) 7.4 TH/MM3 6.5 TH/MM3 Lymphocytes # (Auto) 1.5 TH/MM3 1.3 TH/MM3 Monocytes # (Auto) 0.7 TH/MM3 0.8 TH/MM3 Eosinophils # (Auto) 0.2 TH/MM3 0.3 TH/MM3 Basophils # (Auto) 0.1 TH/MM3 0.0 TH/MM3 CBC Comment DIFF FINAL DIFF FINAL Differential Comment Blood Urea Nitrogen 12 MG/DL 11 MG/DL Creatinine 0.71 MG/DL 0.64 MG/DL Random Glucose 95 MG/DL 106 MG/DL Total Protein 5.8 GM/DL 5.4 GM/DL Albumin 1.2 GM/DL 1.1 GM/DL Calcium Level 7.4 MG/DL 7.3 MG/DL Phosphorus Level 2.4 MG/DL 2.6 MG/DL Magnesium Level 1.6 MG/DL 1.6 MG/DL Alkaline Phosphatase 78 U/L 78 U/L Aspartate Amino Transf (AST/SGOT) 22 U/L 24 U/L Alanine Aminotransferase (ALT/SGPT) 24 U/L 22 U/L Total Bilirubin 0.2 MG/DL 0.2 MG/DL Sodium Level 127 MEQ/L 127 MEQ/L Potassium Level 4.3 MEQ/L 4.2 MEQ/L Chloride Level 98 MEQ/L 97 MEQ/L Carbon Dioxide Level 22.4 MEQ/L 22.3 MEQ/L Anion Gap 7 MEQ/L 8 MEQ/L Estimat Glomerular Filtration Rate 112 ML/MIN 126 ML/MIN Protein Corrected Calcium 8.1 MG/DL 8.2 MG/DL Prothrombin Time 12.3 SEC Prothromb Time International Ratio 1.1 RATIO Imaging Last Impressions Chest X-Ray 03/29/17 0000 Signed Impressions: Service Date/Time: Wednesday, March 29, 2017 12:17 - CONCLUSION: Stable chest. Isaac Stevenson MD FACR Tumor Localization 03/22/17 0000 Signed Impressions: Service Date/Time: Wednesday, March 22, 2017 13:03 - CONCLUSION: Nondiagnostic examination secondary to patient refusal Harry Lucio MD Abdomen X-Ray 03/08/17 0000 Signed Impressions: Service Date/Time: Wednesday, March 08, 2017 10:30 - CONCLUSION: Nonspecific, negative for obstruction or ileus. Isaac Stevenson MD FACR Lower Extremity CT 03/01/17 0000 Signed Impressions: Service Date/Time: Wednesday, March 01, 2017 11:12 - CONCLUSION: 1. No evidence of organized fluid collections to suggest an abscess. 2. Extensive soft tissue swelling surrounding the ankle and extending to the forefoot especially along the lateral aspect. 3. No erosive or destructive bone changes. 4. Bone defects compatible with previous excision device. Blake Riedr MD Ankle X-Ray 02/26/17 0000 Signed Impressions: Service Date/Time: Sunday, February 26, 2017 17:15 - CONCLUSION: I see no retained surgical instruments. Isaac Stevenson MD FACR Upper Extremity Ultrasound 02/25/17 1734 Signed Impressions: Service Date/Time: February 17:54 - CONCLUSION: There is a thin fluid collection within the focal area of soft tissue swelling 2nd digit. Oscar Cassidy MD Hand X-Ray 02/25/17 Signed Impressions: Service Date/Time: February 18:59 - CONCLUSION: No gross bony abnormality. Oscar Cassidy MD Lower Extremity Ultrasound 02/24/17 0000 Signed Impressions: Service Date/Time: Friday, February 24, 2017 13:41 - CONCLUSION: Negative for deep venous thrombosis. Isaac Stevenson MD FACR Head CT 02/24/17 0000 Signed Impressions: Service Date/Time: Friday, February 24, 2017 16:08 - CONCLUSION: 1. No acute intracranial abnormality. 2. Probable large mucocele in the sphenoid sinus. Ty Hankins MD Abdomen/Pelvis CT 02/24/17 0000 Signed Impressions: Service Date/Time: Friday, February 24, 2017 16:16 - CONCLUSION: 1. Marked gaseous distension of large and small bowel most suggestive of ileus. 2. There is no free air. 3. 2.2 cm left adrenal mass. 4. Distended bladder. Isaac Stevenson MD FACR Objective Remarks GENERAL: This is a well-nourished, well-developed patient, in no apparent distress. SKIN: No rashes, warm and dry HEAD: Atraumatic. Normocephalic. EYES: Pupils equal round and reactive. Extraocular motions intact. No scleral icterus. TONGUE MIDLINE- ORAL MUCOSA MOIST ENT: Nose without bleeding, or drainage, Airway patent. NECK: Trachea midline. Supple CARDIOVASCULAR: Regular rate and rhythm without murmurs, gallops, or rubs. S1, S2 NO S3 OR S4 NO HEAVE RESPIRATORY: Fair air entry bilaterally. No wheezes, rales, or rhonchi. GASTROINTESTINAL: Abdomen soft, non-tender, nondistended. Positive bowel sounds PEG IS GONE NOW GROIN SWOLLEN SCROTAL AREA-ELEVATED WITH BATH TOWEL- SANCHEZ IN PLACE MUSCULOSKELETAL:No cyanosis, or edema. Right and left arms are bandaged home right arm in lifting sling. Right LE IS BANDAGED HAS RIGHT BKA NEUROLOGICAL: Awake and alert. Moves all extremity. Normal speech.no focal neurological deficit : Scrotum swelling Procedures 03/10/2017 - Dr. Bullock exploration, wash, excisional debridement extensor tenosynovium right wrist/forearm/hand 03/08/17 - Dr. Bullock- exploration, wash, excisional debridement skin, subcutaneous tissue, extensor tenosynovitis right wrist and hand. Findings: necrotic tissue, minimal purulence, extensor tenosynovitis right wrist/hand 03/04/17 - Dr Gamez - Right leg and incision and drainage. Right foot delayed primary closure x3 03/04/17 - Dr. Bullock - Extensor tenosynovectomy second, third, fourth extensor compartments right wrist and excisional debridement wash index finger metacarpal phalangeal joint, excisional wash and excisional debridement left hand. 02/28/17 - Dr. Reyes - Right ankle wound debridement and washout. Implantation of antibiotic vancomycin beads. 02/28/17 - Dr. Bullock - Exploration, wash, excisional debridement index finger metacarpophalangeal joint right hand; Exploration, wash, excisional debridement metacarpophalangeal joint left index finger; Exploration, wash, excisional debridement extensor pollicis longus tendon right thumb and hand. 02/26/17 - Dr. Reyes - Right ankle incision and drainage, arthrotomy, removal infected hardware, bone biopsy. 02/26/17 - Dr. Bullock - Exploration, incision and drainage right hand abscess, Arthrotomy wash metacarpal phalangeal joint right index finger, Arthrotomy wash metacarpal phalangeal joint left index finger. Medications and IVs Current Medications Sodium Chloride 1,000 ml @ 999 mls/hr BOLUS ONCE IV Last administered on 13:38; Start 02/24/17 at 13:45; Stop 02/24/17 at 14:45; Status DC IV Flush (NS Flush) 2 ml UNSCH PRN IV FLUSH FLUSH AFTER USING IV ACCESS Last administered on 02/24/17 13:38; Start 02/24/17 at 13:45 Vancomycin HCl 1000 mg/Sodium Chloride 250 ml @ 250 mls/hr ONCE STAT IV Last administered on 02/24/17 15:49; Start 02/24/17 at 15:35; Stop 02/24/17 at 16:34; Status DC Cefepime HCl 2000 mg/Sodium Chloride 100 ml @ 200 mls/hr ONCE STAT IV Last administered on 02/24/17 16:36; Start 02/24/17 at 15:35; Stop 02/24/17 at 16:04; Status DC Potassium Bicarb/ Potassium Chloride (K-Lyte Cl Eff) 50 meq ONCE ONCE PO Last administered on 02/24/17 15:56; Start 02/24/17 at 16:00; Stop 02/24/17 at 16: 01; Status DC Iohexol (Omnipaque 350 Inj) 97 ml STK-MED ONCE IV Last administered on 16:29; Start 02/24/17 at 16:29; Stop 02/24/17 at 16:30; Status DC Sodium Chloride 1,000 ml @ 125 mls/hr Q8H IV Last administered on 03/02/17 09: 33; Start 02/24/17 at 18:00; Stop 03/02/17 at 13:08; Status DC Ondansetron HCl (Zofran Inj) 4 mg Q8HR PRN IV PUSH NAUSEA; Start 02/24/17 at 18: 00 Thiamine HCl (Vitamin B1) 100 mg ONCE ONCE PO Last administered on 02/24/17 20 :20; Start 02/24/17 at 20:15; Stop 02/24/17 at 20:16; Status DC Thiamine HCl (Vitamin B1) 100 mg DAILY PO Last administered on 04/02/17 09:10; Start 02/25/17 at 09:00 Potassium Chloride 100 ml @ 50 mls/hr Q2H IV Last administered on 02/24/17 22: 59; Start 02/24/17 at 20:30; Stop 02/25/17 at 00:29; Status DC Pharmacy Profile Note 0 ml @ 0 mls/hr UNSCH OTHER ; Start 02/24/17 at 20:15; Stop 03/02/17 at 13:23; Status DC Cefepime HCl 2000 mg/Sodium Chloride 100 ml @ 200 mls/hr Q12H IV Last administered on 02/27/17 05:51; Start 02/25/17 at 07:00; Stop 02/27/17 at 14:53; Status DC Vancomycin HCl 1500 mg/Sodium Chloride 515 ml @ 257.5 mls/ hr Q18H IV Last administered on 02/25/17 10:30; Start 02/25/17 at 10:00; Stop 02/25/17 at 11:30; Status DC Miscellaneous Information SPECIFIC LAB TO BE DRAWN:VANCO TROUGH DATE TO BE DRLaurence.. ONCE ONCE .XX ; Start 02/26/17 at 21:45; Stop 02/26/17 at 21:46; Status DC Flumazenil (Romazicon Inj) 0.2 mg Q1M PRN IV PUSH SEE LABEL COMMENTS; Start 02/25/17 at 09:15 Lorazepam (Ativan) 1 mg Q4H PRN PO agitation Last administered on 03/20/17 03: 18; Start 02/25/17 at 09:15 Lorazepam (Ativan Inj) 1 mg Q4H PRN IV PUSH agitation when not taking po Last administered on 03/05/17 02:41; Start 02/25/17 at 09:15 Lorazepam (Ativan) 2 mg Q2H PRN PO CIWA 11-14; Start 02/25/17 at 09:15; Stop 02/28/17 at 07:44; Status DC Lorazepam (Ativan Inj) 2 mg Q2H PRN IV PUSH CIWA 11-14 Last administered on 02/26 18:14; Start 02/25/17 at 09:15; Stop 02/28/17 at 07:44; Status DC Lorazepam (Ativan Inj) 2 mg Q1H PRN IV PUSH CIWA 15-20 Last administered on 02/25 21:37; Start 02/25/17 at 09:15; Stop 02/28/17 at 07:44; Status DC Lorazepam (Ativan Inj) 2 mg Q15M PRN IV PUSH CIWA > 20 Last administered on 02/26 06:25; Start 02/25/17 at 09:15; Stop 02/28/17 at 07:44; Status DC Multivitamins (Theragran) 1 tab DAILY PO Last administered on 04/02/17 09:09; Start 02/26/17 at 09:00 Acetaminophen (Tylenol) 650 mg Q4H PRN PO FEVER Last administered on 03/07/17 04:47; Start 02/25/17 at 09:15; Stop 03/12/17 at 10:47; Status DC Lisinopril (Prinivil) 10 mg DAILY PO ; Start 02/26/17 at 09:00; Stop 03/08/17 at 21:09; Status DC Enoxaparin Sodium (Lovenox Inj) 40 mg Q24H SQ Last administered on 03/07/17 10 :00; Start 02/25/17 at 10:00; Stop 03/10/17 at 12:17; Status DC Vancomycin HCl 1500 mg/Sodium Chloride 515 ml @ 257.5 mls/ hr Q12H IV Last administered on 02/26/17 09:42; Start 02/25/17 at 22:00; Stop 02/26/17 at 12:06; Status DC Miscellaneous Information SPECIFIC LAB TO BE ... ONCE ONCE .XX Last administered on 02/26/17 09:45; Start 02/26/17 at 09:45; Stop 02/26/17 at 09:46; Status DC Chlordiazepoxide (Librium) 25 mg Q8H PO ; Start 02/25/17 at 17:00; Stop 02/25/17 at 20:24; Status DC Gentamicin Sulfate 70 mg/ Sodium Chloride 101.75 ml @ 100 mls/ hr ONCE ONCE IV Last administered on 02/25/17 18:51; Start 02/25/17 at 18:30; Stop 02/25/17 at 19:31; Status DC Dexmedetomidine HCl 200 mcg/ Sodium Chloride 52 ml @ 0 mls/hr TITRATE IV Last administered on 02/27/17 13:55; Start 02/25/17 at 17:30; Stop 03/09/17 at 23:34; Status DC Acetaminophen (Ofirmev Inj) 650 mg Q6H PRN IV TEMP >101 Last administered on 20:12; Start 02/25/17 at 21:00 Iohexol (Omnipaque 350 Inj) 75 ml STK-MED ONCE IV Last administered on 21:15; Start 02/25/17 at 21:15; Stop 02/25/17 at 21:16; Status DC Potassium Chloride 100 ml @ 50 mls/hr Q2H PRN IV For Potassium 2.8 - 3.2 mEq/L ; Start 02/25/17 at 22:45; Stop 03/01/17 at 23:53; Status DC Potassium Chloride 100 ml @ 50 mls/hr Q2H PRN IV For Potassium 2.8 - 3.2 mEq/ L Last administered on 02/28/17 12:32; Start 02/25/17 at 22:45; Stop 03/01/17 at 23:53; Status DC Potassium Bicarb/ Potassium Chloride (K-Lyte Cl Eff) 50 meq UNSCH PRN PO For Potassium 3.3 - 3.5 mEq/L; Start 02/25/17 at 22:45; Stop 03/01/17 at 23:53; Status DC Potassium Chloride 100 ml @ 25 mls/hr UNSCH PRN IV For Potassium 3.3 - 3.5 mEq /L; Start 02/25/17 at 22:45; Stop 03/01/17 at 23:53; Status DC Potassium Chloride 100 ml @ 50 mls/hr Q2H PRN IV For Potassium 3.3 - 3.5 mEq/ L Last administered on 02/28/17 06:39; Start 02/25/17 at 22:45; Stop 03/01/17 at 23:53; Status DC Magnesium Sulfate 4 gm/Sodium Chloride 100 ml @ 50 mls/hr UNSCH PRN IV For Magnesium 0.9 - 1.1 mg/dL; Start 02/25/17 at 22:45; Stop 03/01/17 at 23:53; Status DC Magnesium Oxide (Mag-Ox) 800 mg UNSCH PRN PO For Magnesium 1.2 - 1.6 mg/dL; Start 02/25/17 at 22:45; Stop 03/01/17 at 23:53; Status DC Magnesium Sulfate 2 gm/Sodium Chloride 100 ml @ 50 mls/hr UNSCH PRN IV For Magnesium 1.2 - 1.6 mg/dL; Start 02/25/17 at 22:45; Stop 03/01/17 at 23:53; Status DC Potassium Phosphate (K-Phos) 2,000 mg Q4H PRN PO For Phosphorus < 2.5 mg/dL; Start 02/25/17 at 22:45; Stop 03/01/17 at 23:53; Status DC Sodium Phosphate 30 mmol/Sodium Chloride 250 ml @ 42 mls/hr UNSCH PRN IV For Phosphorus < 2.5 mg/dL Last administered on 02/26/17 23:19; Start 02/25/17 at 22: 45; Stop 03/01/17 at 23:53; Status DC Potassium Phosphate (K-Phos) 2,000 mg UNSCH PRN PO/TUBE SEE LABEL COMMENTS; Start 02/25/17 at 22:45; Stop 03/01/17 at 23:53; Status DC Potassium Phosphate 30 mmol/ Sodium Chloride 260 ml @ 42 mls/hr UNSCH PRN IV SEE LABEL COMMENTS; Start 02/25/17 at 22:45; Stop 03/01/17 at 23:53; Status DC Labetalol HCl (Trandate Inj) 10 mg Q6H PRN IV PUSH SBP >165; Start 02/25/17 at 23:15 Pantoprazole Sodium (Protonix Inj) 40 mg Q24H IV PUSH Last administered on 23:48; Start 02/26/17 at 00:00 Miscellaneous Information Patient in critical care unit? Ass... [id number] .XX ; Start 02/26/17 at 07:15 Mupirocin (Bactroban Nasal 2% Oint) 1 applic BID NASAL Last administered on 04/02 09:08; Start 02/26/17 at 09:00 Chlorhexidine Gluconate (Chlorhexidine 2% Cloth) 3 pack DAILY@04 TOPICAL Last administered on 03/03/17 04:00; Start 02/27/17 at 04:00; Stop 03/03/17 at 04:01; Status DC Chlorhexidine Gluconate (Chlorhexidine 2% Cloth) 3 pack UNSCH PRN TOPICAL HYGIENIC CARE; Start 02/26/17 at 07:15; Stop 03/03/17 at 07:07; Status DC Lidocaine HCl (Xylocaine 2% Inj) 50 ml STK-MED ONCE .ROUTE ; Start 02/26/17 at 09 :35; Stop 02/26/17 at 09:36; Status DC Bupivacaine HCl (Marcaine Pf 0.5% Inj) 60 ml STK-MED ONCE .ROUTE ; Start at 09:35; Stop 02/26/17 at 09:36; Status DC Mupirocin (Bactroban 2% Oint) 22 applic STK-MED ONCE .ROUTE ; Start 02/26/17 at 09:35; Stop 02/26/17 at 09:36; Status DC Vancomycin HCl 1250 mg/Sodium Chloride 262.5 ml @ 250 mls/hr Q12H IV Last administered on 03/02/17 09:33; Start 02/26/17 at 22:00; Stop 03/02/17 at 13:23; Status DC Miscellaneous Information SPECIFIC LAB TO BE BIA... ONCE ONCE .XX Last administered on 02/27/17 22:46; Start 02/27/17 at 21:45; Stop 02/27/17 at 21:46; Status DC Neomycin/Polymyxin (Neosporin G.u. Irr) 3 ml STK-MED ONCE TOPICAL Last administered on 02/26/17 13:06; Start 02/26/17 at 13:06; Stop 02/26/17 at 16:26; Status DC Neomycin/Polymyxin (Neosporin G.u. Irr) 4 ml STK-MED ONCE TOPICAL Last administered on 02/26/17 15:47; Start 02/26/17 at 15:47; Stop 02/26/17 at 16:26; Status DC Fentanyl Citrate (fentaNYL INJ) 250 mcg STK-MED ONCE .ROUTE ; Start 02/26/17 at 18:16; Stop 02/26/17 at 18:17; Status DC Fentanyl Citrate (fentaNYL INJ) 100 mcg STK-MED ONCE .ROUTE ; Start 02/26/17 at 18:16; Stop 02/26/17 at 18:17; Status DC Miscellaneous Information ALL NURSING DEPARTME... UNSCH PRN .XX SEE LABEL COMMENTS; Start 02/26/17 at 17:57; Stop 02/27/17 at 17:56; Status DC Clonidine (Catapres) 0.3 mg Q8HR PO Last administered on 04/02/17 05:46; Start 02/26/17 at 22:11 Diazepam (Valium) 5 mg Taper DAILY PO Last administered on 03/06/17 09:49; Start 02/26/17 at 22:15; Stop 03/06/17 at 22:14; Status DC Water (Free Water) 200 ml Q8HR G-TUBE Last administered on 02/27/17 22:31; Start 02/27/17 at 06:55; Stop 02/28/17 at 07:41; Status DC Rifampin 300 mg/ Sodium Chloride 100 ml @ 100 mls/hr Q12H IV Last administered on 03/02/17 14:41; Start 02/27/17 at 15:00; Stop 03/02/17 at 16:41; Status DC Oxycodone HCl (Roxicodone) 5 mg Q4H PRN PO pain 1-5 Last administered on 09:26; Start 02/28/17 at 07:45 Hydromorphone HCl (Dilaudid Pf Inj) 0.5 mg Q3H PRN IV PUSH pain 6-10 or not taking po Last administered on 04/02/17 09:10; Start 02/28/17 at 07:45 Water (Free Water) 300 ml Q4HR G-TUBE Last administered on 03/02/17 20:00; Start 02/28/17 at 08:00; Stop 03/02/17 at 23:07; Status DC Vancomycin HCl (Vancomycin Inj) 1,000 mg STK-MED ONCE .ROUTE Last administered on 02/28/17 09:01; Start 02/28/17 at 09:01; Stop 02/28/17 at 09:02; Status DC Vancomycin HCl (Vancomycin Inj) 1,000 mg STK-MED ONCE .ROUTE Last administered on 02/28/17 09:33; Start 02/28/17 at 09:33; Stop 02/28/17 at 09:34; Status DC Vancomycin HCl (Vancomycin Inj) 1,000 mg STK-MED ONCE .ROUTE Last administered on 02/28/17 09:36; Start 02/28/17 at 09:33; Stop 02/28/17 at 09:34; Status DC Daptomycin 450 mg/ Sodium Chloride 100 ml @ 200 mls/hr Q24H IV Last administered on 03/05/17 13:41; Start 02/28/17 at 12:00; Stop 03/05/17 at 18:00 ; Status DC Vancomycin HCl (Vancomycin Inj) 1,000 mg STK-MED ONCE .ROUTE Last administered on 02/28/17 10:45; Start 02/28/17 at 10:42; Stop 02/28/17 at 10:43; Status DC Vancomycin HCl (Vancomycin Inj) 500 mg STK-MED ONCE .ROUTE Last administered on 02/28/17 10:45; Start 02/28/17 at 10:42; Stop 02/28/17 at 10:43; Status DC Fentanyl Citrate (fentaNYL INJ) 250 mcg STK-MED ONCE .ROUTE ; Start 02/28/17 at 11:48; Stop 02/28/17 at 11:49; Status DC Miscellaneous Information ALL NURSING DEPARTME... UNSCH PRN .XX SEE LABEL COMMENTS; Start 02/28/17 at 11:33; Stop 03/01/17 at 11:32; Status DC Miscellaneous Information SPECIFIC LAB TO BE BIA... ONCE ONCE .XX ; Start 03/04 at 09:45; Stop 03/04/17 at 09:46; Status Cancel Sodium Chloride 1,000 ml @ 999 mls/hr BOLUS ONCE IV Last administered on 13:28; Start 03/02/17 at 13:15; Stop 03/02/17 at 14:15; Status DC Sodium Chloride 1,000 ml @ 125 mls/hr Q8H IV Last administered on 03/02/17 14: 18; Start 03/02/17 at 13:15; Stop 03/02/17 at 14:30; Status DC Rifampin (Rifampin) 300 mg Q12HR PO Last administered on 03/23/17 08:42; Start 03/02/17 at 21:00; Stop 03/23/17 at 18:40; Status DC Potassium Chloride 20 meq/ Sodium Chloride 38.5 meq/Sterile Water 1,010 ml @ 55 mls/hr [id number] IV Last administered on 03/09/17 22:51; Start 03/03/17 at 11: 00; Stop 03/09/17 at 23:36; Status DC Furosemide (Lasix Inj) 20 mg ONCE ONCE IV PUSH Last administered on 03/03/17 10:19; Start 03/03/17 at 09:30; Stop 03/03/17 at 09:43; Status DC Carvedilol (Coreg) 6.25 mg Q12HR PO Last administered on 04/02/17 09:08; Start 03/03/17 at 21:00 Vancomycin HCl (Vancomycin Inj) 1,000 mg STK-MED ONCE .ROUTE Last administered on 03/04/17 15:52; Start 03/04/17 at 15:10; Stop 03/04/17 at 15:11; Status DC Fentanyl Citrate (fentaNYL INJ) 100 mcg STK-MED ONCE .ROUTE ; Start 03/04/17 at 16:38; Stop 03/04/17 at 16:39; Status DC Fentanyl Citrate (fentaNYL INJ) 250 mcg STK-MED ONCE .ROUTE ; Start 03/04/17 at 16:38; Stop 03/04/17 at 16:39; Status DC Vancomycin HCl (Vancomycin Inj) 1,000 mg STK-MED ONCE .ROUTE Last administered on 03/04/17 16:52; Start 03/04/17 at 16:59; Stop 03/04/17 at 17:00; Status DC Fentanyl Citrate (fentaNYL INJ) 100 mcg STK-MED ONCE .ROUTE ; Start 03/04/17 at 18:24; Stop 03/04/17 at 18:25; Status DC Fentanyl Citrate (fentaNYL INJ) 250 mcg STK-MED ONCE .ROUTE ; Start 03/04/17 at 18:25; Stop 03/04/17 at 18:26; Status DC Miscellaneous Information ALL NURSING DEPARTME... UNSCH PRN .XX SEE LABEL COMMENTS; Start 03/04/17 at 19:15; Stop 03/05/17 at 19:14; Status DC Daptomycin 550 mg/ Sodium Chloride 100 ml @ 200 mls/hr Q24H IV Last administered on 04/01/17 12:47; Start 03/06/17 at 12:00 Bisacodyl (Dulcolax Supp) 10 mg DAILY PRN RECTAL SEVERE CONSITIPATION; Start at 21:00 Lactulose (Lactulose Liq) 30 ml DAILY PRN NG SEVERE CONSITIPATION Last administered on 03/07/17 18:45; Start 03/06/17 at 21:00 Docusate Sodium (Colace Liq) 100 mg Q12HR PO Last administered on 03/09/17 09: 30; Start 03/06/17 at 21:15; Status Future Hold Sodium Chloride 250 ml @ 15 mls/hr ONCE ONCE IV Last administered on 00:27; Start 03/07/17 at 19:00; Stop 03/08/17 at 12:06; Status DC Furosemide (Lasix Inj) 20 mg ONCE ONCE IV Last administered on 03/08/17 03:49 ; Start 03/07/17 at 19:00; Stop 03/07/17 at 19:01; Status DC Polyethylene Glycol/ Electrolytes (Colyte Liq) 4,000 ml ONCE ONCE PO ; Start at 11:00; Stop 03/08/17 at 11:01; Status Cancel Mupirocin (Bactroban 2% Oint) 22 applic STK-MED ONCE .ROUTE ; Start 03/08/17 at 12:10; Stop 03/08/17 at 12:11; Status DC Lidocaine HCl (Xylocaine 2% Inj) 50 ml STK-MED ONCE .ROUTE ; Start 03/08/17 at 12:13; Stop 03/08/17 at 12:14; Status DC Bupivacaine HCl (Marcaine Pf 0.5% Inj) 30 ml STK-MED ONCE .ROUTE ; Start at 12:17; Stop 03/08/17 at 12:18; Status DC Famotidine (Pepcid Inj) 20 mg STK-MED ONCE .ROUTE ; Start 03/08/17 at 13:17; Stop 03/08/17 at 13:18; Status DC Vancomycin HCl (Vancomycin Inj) 1,000 mg STK-MED ONCE .ROUTE Last administered on 03/08/17 14:35; Start 03/08/17 at 14:07; Stop 03/08/17 at 14:08; Status DC Sodium Chloride (Sodium Chloride 0.9% Inj) 20 ml STK-MED ONCE .ROUTE ; Start at 14:07; Stop 03/08/17 at 14:08; Status DC Vancomycin HCl (Vancomycin Inj) 1,000 mg STK-MED ONCE .ROUTE ; Start 03/08/17 at 14:42; Stop 03/08/17 at 14:43; Status DC Sodium Chloride (Sodium Chloride 0.9% Inj) 20 ml STK-MED ONCE .ROUTE ; Start at 14:42; Stop 03/08/17 at 14:43; Status DC Fentanyl Citrate (fentaNYL INJ) 500 mcg STK-MED ONCE .ROUTE ; Start 03/08/17 at 15:51; Stop 03/08/17 at 15:52; Status DC Miscellaneous Information ALL NURSING DEPARTME... UNSCH PRN .XX SEE LABEL COMMENTS; Start 03/08/17 at 15:40; Stop 03/09/17 at 15:39; Status DC Polyethylene Glycol/ Electrolytes (Colyte Liq) 4,000 ml ONCE ONCE NG Last administered on 03/08/17 22:42; Start 03/08/17 at 20:00; Stop 03/08/17 at 20:01 ; Status DC Lisinopril (Prinivil) 2.5 mg DAILY PO Last administered on 04/02/17 09:09; Start 03/09/17 at 09:00 Miscellaneous (Pill Splitter) 1 ea UNSCH PRN OTHER SEE LABEL COMMENTS; Start at 21:15 Dextrose 1,000 ml @ 84 mls/hr [id number] IV Last administered on 03/11/17 21:24 ; Start 03/09/17 at 23:45; Stop 03/11/17 at 23:38; Status DC Enoxaparin Sodium (Lovenox Inj) 40 mg Q24H SQ Last administered on 04/01/17 12: 47; Start 03/10/17 at 13:00; Status Future hold Bupivacaine HCl (Marcaine Pf 0.5% Inj) 30 ml STK-MED ONCE .ROUTE ; Start at 14:50; Stop 03/10/17 at 14:51; Status DC Lidocaine HCl (Xylocaine 2% Inj) 50 ml STK-MED ONCE .ROUTE ; Start 03/10/17 at 14:51; Stop 03/10/17 at 14:52; Status DC Bacitracin (Baciguent Oint) 15 applic STK-MED ONCE .ROUTE Last administered on 03/10/17 16:43; Start 03/10/17 at 14:51; Stop 03/10/17 at 14:52; Status DC Vancomycin HCl (Vancomycin Inj) 1,000 mg STK-MED ONCE .ROUTE Last administered on 03/10/17 15:49; Start 03/10/17 at 15:45; Stop 03/10/17 at 15:46; Status DC Sodium Chloride (Sodium Chloride 0.9% Inj) 20 ml STK-MED ONCE .ROUTE ; Start at 15:45; Stop 03/10/17 at 15:46; Status DC Neomycin/Polymyxin (Neosporin G.u. Irr) 2 ml STK-MED ONCE TOPICAL Last administered on 03/10/17 15:49; Start 03/10/17 at 15:49; Stop 03/10/17 at 15:59 ; Status DC Bacitracin (Baciguent Oint) 30 applic STK-MED ONCE .ROUTE Last administered on 03/10/17 16:44; Start 03/10/17 at 16:41; Stop 03/10/17 at 16:42; Status DC Hydromorphone HCl (Dilaudid Pf Inj) 2 mg STK-MED ONCE .ROUTE ; Start 03/10/17 at 16:47; Stop 03/10/17 at 16:48; Status DC Fentanyl Citrate (fentaNYL INJ) 250 mcg STK-MED ONCE .ROUTE ; Start 03/10/17 at 17:22; Stop 03/10/17 at 17:23; Status DC Morphine Sulfate (*morphine INJ PERIprocedure ONLY) 8 mg STK-MED ONCE .ROUTE Last administered on 03/10/17 18:12; Start 03/10/17 at 18:12; Stop 03/10/17 at 18:13; Status DC Miscellaneous Information ALL NURSING DEPARTME... UNSCH PRN .XX SEE LABEL COMMENTS; Start 03/10/17 at 14:30; Stop 03/11/17 at 14:29; Status DC Propofol (Diprivan 200 Mg/20 ml Inj) 200 mg STK-MED ONCE IV PUSH ; Start at 15:29; Stop 03/11/17 at 15:47; Status DC Oxybenzone/ Padimate O/ Dimethicone (Blistex Lip [place]) 4.25 applic STK-MED ONCE TOPICAL Last administered on 03/11/17 16:02; Start 03/11/17 at 16:02; Stop at 16:03; Status DC Miscellaneous Information ALL NURSING DEPARTME... UNSCH PRN .XX SEE LABEL COMMENTS; Start 03/11/17 at 16:00; Stop 03/12/17 at 15:59; Status DC Succinylcholine Chloride (Quelicin Inj) 200 mg STK-MED ONCE IV PUSH ; Start at 15:27; Stop 03/12/17 at 08:59; Status DC Sodium Chloride 250 ml @ 15 mls/hr ONCE ONCE IV Last administered on t 10:15; Start 03/12/17 at 10:15; Stop 03/13/17 at 02:54; Status DC Acetaminophen (Tylenol) 650 mg Q4H PRN PO SEE LABEL COMMENTS; Start 03/12/17 at 10:15; Stop 03/12/17 at 14:16; Status DC Diphenhydramine HCl (Benadryl) 25 mg Q4H PRN PO SEE LABEL COMMENTS; Start 03/12 at 10:15; Stop 03/12/17 at 14:16; Status DC Potassium Chloride 100 ml @ 50 mls/hr Q2H IV Last administered on 03/12/17 13 :25; Start 03/12/17 at 11:00; Stop 03/12/17 at 14:59; Status DC Lidocaine HCl (Xylocaine 2% Inj) 50 ml STK-MED ONCE .ROUTE ; Start 03/12/17 at 13:04; Stop 03/12/17 at 13:05; Status DC Mupirocin (Bactroban 2% Oint) 22 applic STK-MED ONCE .ROUTE ; Start 03/12/17 at 13:06; Stop 03/12/17 at 13:07; Status DC Hydromorphone HCl (Dilaudid Pf Inj) 2 mg STK-MED ONCE .ROUTE ; Start 03/12/17 at 15:18; Stop 03/12/17 at 15:19; Status DC Acetaminophen (Ofirmev Inj) 1,000 mg STK-MED ONCE IV ; Start 03/12/17 at 15:18; Stop 03/12/17 at 15:19; Status DC Vancomycin HCl (Vancomycin Inj) 1,000 mg STK-MED ONCE .ROUTE Last administered on 03/12/17 15:54; Start 03/12/17 at 15:57; Stop 03/12/17 at 15:58; Status DC Neomycin/Polymyxin (Neosporin G.u. Irr) 2 ml STK-MED ONCE TOPICAL Last administered on 03/12/17 15:54; Start 03/12/17 at 15:54; Stop 03/12/17 at 16:15 ; Status DC Fentanyl Citrate (fentaNYL INJ) 250 mcg STK-MED ONCE .ROUTE ; Start 03/12/17 at 17:04; Stop 03/12/17 at 17:05; Status DC Miscellaneous Information ALL NURSING DEPARTME... UNSCH PRN .XX SEE LABEL COMMENTS; Start 03/12/17 at 17:30; Stop 03/13/17 at 17:29; Status DC Morphine Sulfate (*morphine INJ PERIprocedure ONLY) 8 mg STK-MED ONCE .ROUTE Last administered on 03/12/17 17:33; Start 03/12/17 at 17:33; Stop 03/12/17 at 17:34; Status DC Lidocaine HCl (Xylocaine 1% Inj) 10 ml ONCE@0700 ONCE OTHER ; Start 03/13/17 at 07:00; Stop 03/13/17 at 07:01; Status DC Potassium Chloride/Sodium Chloride 1,000 ml @ 75 mls/hr [id number] IV Last administered on 04/01/17 20:11; Start 03/13/17 at 11:30 Polyethylene Glycol/ Electrolytes (Colyte Liq) 4,000 ml ONCE ONCE PEG Last administered on 03/14/17 17:13; Start 03/14/17 at 16:00; Stop 03/14/17 at 16:01 ; Status DC Sodium Chloride 250 ml @ 15 mls/hr ONCE ONCE IV Last administered on 21:30; Start 03/13/17 at 20:00; Stop 03/14/17 at 12:39; Status DC Polyethylene Glycol/ Electrolytes (Colyte Liq) 4,000 ml ONCE ONCE PO Last administered on 03/15/17 17:19; Start 03/15/17 at 16:45; Stop 03/15/17 at 16:48 ; Status DC Propofol (Diprivan 200 Mg/20 ml Inj) 180 mg ONCE ONCE IV Last administered on 03/15/17 16:45; Start 03/15/17 at 16:43; Stop 03/15/17 at 16:45; Status DC Sodium Biphosphate/ Sodium Phosphate (Fleets Enema (Adult)) 133 ml ONCE ONCE RECTAL Last administered on 03/16/17 14:45; Start 03/16/17 at 14:15; Stop at 14:21; Status DC Sodium Biphosphate/ Sodium Phosphate (Fleets Enema (Adult)) 133 ml ONCE ONCE RECTAL Last administered on 03/17/17 09:49; Start 03/17/17 at 08:00; Stop at 08:01; Status DC Propofol (Diprivan 200 Mg/20 ml Inj) 100 mg ONCE ONCE IV PUSH ; Start at 15:00; Stop 03/16/17 at 15:01; Status DC Midazolam HCl (Versed Inj) 2 mg STK-MED ONCE .ROUTE ; Start 03/16/17 at 15:34; Stop 03/16/17 at 15:35; Status DC Vancomycin HCl (Vancomycin Inj) 1,000 mg STK-MED ONCE .ROUTE Last administered on 03/18/17 18:58; Start 03/18/17 at 18:15; Stop 03/18/17 at 18:16; Status DC Fentanyl Citrate (fentaNYL INJ) 200 mcg STK-MED ONCE .ROUTE ; Start 03/18/17 at 19:50; Stop 03/18/17 at 19:51; Status DC Methocarbamol (Robaxin) 500 mg Q8HR PO Last administered on 04/02/17 05:46; Start 03/19/17 at 14:00 Acetaminophen 100 ml @ As Directed STK-MED ONCE IV ; Start 03/24/17 at 09:21; Stop 03/24/17 at 09:22; Status DC Midazolam HCl (Versed Inj) 2 mg STK-MED ONCE .ROUTE ; Start 03/24/17 at 09:21; Stop 03/24/17 at 09:22; Status DC Fentanyl Citrate (fentaNYL INJ) 100 mcg STK-MED ONCE .ROUTE ; Start 03/24/17 at 09:21; Stop 03/24/17 at 09:22; Status DC Fentanyl Citrate (fentaNYL INJ) 100 mcg STK-MED ONCE .ROUTE ; Start 03/24/17 at 09:21; Stop 03/24/17 at 09:22; Status DC Hydromorphone HCl (*DILAUDID PF INJ PERIprocedural ONLY) 1 mg STK-MED ONCE .ROUTE Last administered on 03/24/17 14:53; Start 03/24/17 at 14:53; Stop at 14:54; Status DC Meperidine HCl (*DEMEROL INJ PERIprocedural ONLY) 25 mg STK-MED ONCE .ROUTE Last administered on 03/24/17 15:01; Start 03/24/17 at 15:01; Stop 03/24/17 at 15:02; Status DC Fentanyl Citrate (fentaNYL INJ) 400 mcg STK-MED ONCE .ROUTE ; Start 03/24/17 at 15:01; Stop 03/24/17 at 15:02; Status DC Miscellaneous Information ALL NURSING DEPARTME... UNSCH PRN .XX SEE LABEL COMMENTS; Start 03/24/17 at 14:52; Stop 03/25/17 at 14:51; Status DC Polyethylene Glycol (Miralax) 17 gm DAILY PO ; Start 03/24/17 at 16:30; Status Cancel Acetaminophen (Tylenol) 650 mg Q4H PRN PO fever Last administered on 03/25/17 10:02; Start 03/25/17 at 10:00 Piperacillin Sod/ Tazobactam Sod 100 ml @ 200 mls/hr Q8H IV Last administered on 03/29/17 12:36; Start 03/25/17 at 20:00; Stop 03/29/17 at 14:34; Status DC Furosemide (Lasix Inj) 10 mg ONCE ONCE IV PUSH Last administered on 03/26/17 13:47; Start 03/26/17 at 13:30; Stop 03/26/17 at 13:34; Status DC Furosemide (Lasix Inj) 10 mg UNSCH X1 IV PUSH Last administered on 03/27/17 01 :31; Start 03/26/17 at 17:15; Stop 03/26/17 at 23:59; Status DC Levothyroxine Sodium (Synthroid) 50 mcg DAILY@0600 PO Last administered on 05:49; Start 03/30/17 at 06:00 Levothyroxine Sodium (Synthroid) 50 mcg ONCE ONCE PO Last administered on 12:55; Start 03/29/17 at 12:00; Stop 03/29/17 at 12:02; Status DC Levofloxacin (Levaquin) 500 mg DAILY PO Last administered on 04/02/17 09:08; Start 03/29/17 at 14:45; Stop 04/07/17 at 14:44 Propofol (Diprivan 200 Mg/20 ml Inj) 200 mg STK-MED ONCE IV ; Start 02/26/17 at 12:00; Stop 03/30/17 at 13:17; Status DC Neostigmine Methylsulfate (Prostigmin Inj) 3 mg STK-MED ONCE IV ; Start 02/26/17 at 12:00; Stop 03/30/17 at 13:17; Status DC Phenylephrine HCl (Neosynephrine/ NS 1000 Mcg/10ml Syr) 1,000 mcg STK-MED ONCE IV ; Start 02/26/17 at 12:00; Stop 03/30/17 at 13:17; Status DC Lactated Ringer's 2,000 ml @ As Directed STK-MED ONCE IV ; Start 02/26/17 at 12: 00; Stop 03/30/17 at 13:17; Status DC Propofol (Diprivan 200 Mg/20 ml Inj) 200 mg STK-MED ONCE IV ; Start 02/28/17 at 12:00; Stop 03/30/17 at 13:46; Status DC Neostigmine Methylsulfate (Prostigmin Inj) 3 mg STK-MED ONCE IV ; Start 02/28/17 at 12:00; Stop 03/30/17 at 13:46; Status DC Lactated Ringer's 2,000 ml @ As Directed STK-MED ONCE IV ; Start 02/28/17 at 12: 00; Stop 03/30/17 at 13:46; Status DC Propofol (Diprivan 200 Mg/20 ml Inj) 400 mg STK-MED ONCE IV ; Start 03/04/17 at 12:00; Stop 03/30/17 at 14:07; Status DC Ephedrine Sulfate (ePHEDrine/NS 25 MG/5 ML SYR) 25 mg STK-MED ONCE IV ; Start at 12:00; Stop 03/30/17 at 14:07; Status DC Phenylephrine HCl (Neosynephrine/ NS 1000 Mcg/10ml Syr) 2,000 mcg STK-MED ONCE IV ; Start 03/04/17 at 12:00; Stop 03/30/17 at 14:08; Status DC Ondansetron HCl (Zofran Inj) 4 mg STK-MED ONCE IV PUSH ; Start 03/04/17 at 12:00 ; Stop 03/30/17 at 14:08; Status DC Propofol (Diprivan 200 Mg/20 ml Inj) 200 mg STK-MED ONCE IV ; Start 03/08/17 at 12:00; Stop 03/30/17 at 14:49; Status DC Ephedrine Sulfate (ePHEDrine/NS 25 MG/5 ML SYR) 50 mg STK-MED ONCE IV ; Start at 12:00; Stop 03/30/17 at 14:49; Status DC Neostigmine Methylsulfate (Prostigmin Inj) 4 mg STK-MED ONCE IV ; Start at 12:00; Stop 03/30/17 at 14:49; Status DC Phenylephrine HCl (Neosynephrine/ NS 1000 Mcg/10ml Syr) 1,000 mcg STK-MED ONCE IV ; Start 03/08/17 at 12:00; Stop 03/30/17 at 14:49; Status DC Ondansetron HCl (Zofran Inj) 4 mg STK-MED ONCE IV PUSH ; Start 03/08/17 at 12:00 ; Stop 03/30/17 at 14:49; Status DC Lactated Ringer's 1,000 ml @ As Directed STK-MED ONCE IV ; Start 03/08/17 at 12 :00; Stop 03/30/17 at 14:49; Status DC Propofol (Diprivan 200 Mg/20 ml Inj) 200 mg STK-MED ONCE IV ; Start 03/10/17 at 12:00; Stop 03/30/17 at 15:08; Status DC Ephedrine Sulfate (ePHEDrine/NS 25 MG/5 ML SYR) 25 mg STK-MED ONCE IV ; Start at 12:00; Stop 03/30/17 at 15:08; Status DC Neostigmine Methylsulfate (Prostigmin Inj) 3 mg STK-MED ONCE IV ; Start at 12:00; Stop 03/30/17 at 15:08; Status DC Phenylephrine HCl (Neosynephrine/ NS 1000 Mcg/10ml Syr) 2,000 mcg STK-MED ONCE IV ; Start 03/10/17 at 12:00; Stop 03/30/17 at 15:08; Status DC Ondansetron HCl (Zofran Inj) 4 mg STK-MED ONCE IV PUSH ; Start 03/10/17 at 12:00 ; Stop 03/30/17 at 15:08; Status DC Lactated Ringer's 1,000 ml @ As Directed STK-MED ONCE IV ; Start 03/10/17 at 12 :00; Stop 03/30/17 at 15:08; Status DC Sodium Chloride 1,000 ml @ As Directed STK-MED ONCE IV ; Start 03/10/17 at 12: 00; Stop 03/30/17 at 15:08; Status DC Propofol (Diprivan 200 Mg/20 ml Inj) 200 mg STK-MED ONCE IV ; Start 03/12/17 at 12:00; Stop 03/30/17 at 15:20; Status DC Ephedrine Sulfate (ePHEDrine/NS 25 MG/5 ML SYR) 25 mg STK-MED ONCE IV ; Start at 12:00; Stop 03/30/17 at 15:20; Status DC Phenylephrine HCl (Neosynephrine/ NS 1000 Mcg/10ml Syr) 1,000 mcg STK-MED ONCE IV ; Start 03/12/17 at 12:00; Stop 03/30/17 at 15:20; Status DC Ondansetron HCl (Zofran Inj) 4 mg STK-MED ONCE IV PUSH ; Start 03/12/17 at 12:00 ; Stop 03/30/17 at 15:20; Status DC Lactated Ringer's 1,000 ml @ As Directed STK-MED ONCE IV ; Start 03/12/17 at 12 :00; Stop 03/30/17 at 15:20; Status DC Propofol (Diprivan 200 Mg/20 ml Inj) 200 mg STK-MED ONCE IV ; Start 03/18/17 at 12:00; Stop 03/30/17 at 15:38; Status DC Ondansetron HCl (Zofran Inj) 4 mg STK-MED ONCE IV PUSH ; Start 03/18/17 at 12:00 ; Stop 03/30/17 at 15:38; Status DC Neostigmine Methylsulfate (Prostigmin Inj) 3 mg STK-MED ONCE IV ; Start at 12:00; Stop 03/30/17 at 15:38; Status DC Phenylephrine HCl (Neosynephrine/ NS 1000 Mcg/10ml Syr) 1,000 mcg STK-MED ONCE IV ; Start 03/18/17 at 12:00; Stop 03/30/17 at 15:38; Status DC A/P Problem List: (1) Sepsis ICD Code: A41.9 - Sepsis, unspecified organism Status: Acute (2) Right foot infection ICD Code: L08.9 - Local infection of the skin and subcutaneous tissue, unspecified Status: Acute (3) Encephalopathy ICD Code: G93.40 - Encephalopathy, unspecified Status: Acute (4) Alcoholism ICD Code: F10.20 - Alcohol dependence, uncomplicated Status: Chronic (5) Hypothyroidism ICD Code: E03.9 - Hypothyroidism, unspecified Assessment and Plan 61-year-old male admitted secondary to numerous infections including bilateral hands and right ankle. Previous history of right ankle. Patient also had encephalopathy secondary to infection and alcohol withdrawal time of admit. Encephalopathy has improved. Continued treatments of infections are ongoing. Status post I&D of right elbow. Continue wound care. Robaxin started for muscle spasms. 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 distant showering of emboli to other joints. MRSA bacteremia Right ankle hardware infection, s/p partial removal of hardware. Deeper hardware embedded. SP RIGHT BKA Bilateral UE hand abscess and tenosynovitis, septic arthritis s.p multiple debridements. Recent fever on 03/25 (resolved) CXR showed possible b/l infiltrate but no clinical respiratory symptoms, UTI with + UA , lactic acidosis (improved), on zosyn with dapto Antibiotic per ID Plan for long-term IV antibiotics, rifampin for 6 weeks Likely will need shelter facility placement Continue oxycodone and Dilaudid for pain May still need further surgical intervention Hand surgeon following Podiatry following ID following Multiple surgeries thus far: - podiatry Dr. Reyes/Dr. Gamez on 02/26, 02/28, 03/04 - hand surgeon Dr. Bullock on 02/26, 02/28, 03/04, 03/08, 03/10 Anemia Most recent hemoglobin is 8.0 Follow CBC Status post blood transfusion Acute Toxic/Metabolic Encephalopathy secondary to Sepsis Acute Alcohol Withdrawal Resolved Hypernatremia Resolved Hypokalemia Replace as needed Continue to monitor Hypertension Continue clonidine and Coreg, cardiology initiate low dose lisinopril, monitor renal function Follow blood pressures Adjust as needed for control Mild Systolic CHF Scrotal edema EF of 40-45% with global hypokinesis found on 02/28/17 Continue beta amarjit Following BMP, consider initiating diuresis, (patient recently had fever and lactic acidosis) HYPOTHYROIDISM START SYNTHROID 50MCG DAILY THADDEUS possibly vanco induced Monitor renal function Avoid nephrotoxins Previous event was likely secondary to ATN Nephrology following Urinary retention Monitor urine output Hepatitis C Standard precautions Dysphagia: Improved patient on regular diet Dietitian to assess tapering tube feed DVT Prophylaxis Lovenox AM LABS CONTINUE CURRENT CARE DC PEG CONSULT GI TO REMOVE?- PEG OUT 9-7 pain control add oral meds Problem Qualifiers (1) Sepsis: Isaac Pink DO Apr 02, 2017 12:50
[2017-04-02] MEDS ORDERED: oxyCODONE/ACETAMINOPHEN 5 MG/325 MG TAB PO PRN (13:00)
[2017-04-02] MEDS: NS + KCL 20 MEQ INJ 1,000 ML IV SCH (13:12)
[2017-04-02] MEDS: ENOXAPARIN SODIUM 40 MG/0.4 ML SYRINGE SQ SCH (13:13)
[2017-04-02] MEDS: DAPTOMYCIN IV SCH (13:17)
[2017-04-02] MEDS: SODIUM CHLORIDE 0.9% IV SCH (13:17)
[2017-04-02 15:49] VITALS: BP 138/78; PULSE 66; RESP 19; TEMP 96.7; O2SAT 98
[2017-04-02] MEDS: oxyCODONE/ACETAMINOPHEN 10 MG/325 MG TAB PO PRN ×2 (17:02→21:24)
[2017-04-02 20:00] VITALS: BP 132/70; PULSE 70; RESP 18; TEMP 98.5; O2SAT 97
[2017-04-03] VITALS: BP 128/61; PULSE 70; RESP 16; TEMP 98.5; O2SAT 97
[2017-04-03] MEDS: PANTOPRAZOLE SODIUM 40 MG VIAL IV PUSH SCH ×2 (00:35→22:55)
[2017-04-03] MEDS: NS + KCL 20 MEQ INJ 1,000 ML IV SCH ×2 (00:35→13:56)
[2017-04-03] MEDS: HYDROmorphone HCL PF 1 MG/ML VIAL IV PUSH PRN ×4 (01:22→20:40)
[2017-04-03 04:00] VITALS: BP 117/71; PULSE 67; RESP 16; TEMP 98.3; O2SAT 98
[2017-04-03] MEDS: LEVOTHYROXINE SODIUM 50 MCG TAB PO SCH (05:03)
[2017-04-03] MEDS: cloNIDine HCL 0.3 MG TAB PO SCH ×3 (05:03→20:40)
[2017-04-03] MEDS: METHOCARBAMOL 500 MG TAB PO SCH ×3 (05:03→20:39)
[2017-04-03 09:07] VITALS: BP 123/77; PULSE 65; RESP 16; TEMP 97.8; O2SAT 96
[2017-04-03] MEDS: oxyCODONE/ACETAMINOPHEN 10 MG/325 MG TAB PO PRN ×3 (09:17→23:00)
[2017-04-03] MEDS: LEVOFLOXACIN 500 MG TAB PO SCH (09:17)
[2017-04-03] MEDS: THIAMINE HCL 100 MG TAB PO SCH (09:17)
[2017-04-03] MEDS: MUPIROCIN 2% OINT 1 APPLIC/GM SYR NASAL SCH ×2 (09:17→20:39)
[2017-04-03] MEDS: CARVEDILOL 6.25 MG TAB PO SCH ×2 (09:17→21:55)
[2017-04-03] MEDS: MULTIVITAMIN TAB PO SCH (09:17)
[2017-04-03] MEDS: LISINOPRIL 5 MG TAB PO SCH (09:18)
[2017-04-03 12:00] VITALS: BP 145/75; PULSE 72; RESP 18; TEMP 96.9; O2SAT 97
--- NOTE | 2017-04-03 12:16 | HHI.PR ---
Subjective Remarks Follow up on MRSA endocarditis sepsis and bacteremia, right ankle hardware infection, bilateral upper extremity hand abscess and Pricila synovitis septic arthritis, catheter associated UTI acute renal failure hypertension alcoholism patient Is doing okay today, oral diet resumed after he past speech, consider tapering to proceed if dietitian agreed 03-28 NO NEW COMPLAINTS CONTINUE ANTIBIOTICS AND WOUND CARE DW RN AND PATIENT 03-29 RIGHT BKA DRESSED NO NEW COMPLAINTS NO SOB, NO CHEST PAIN HYPOTHYROID- START SYNTHROID 50MCG 03-30 NO NEW COMPLAINTS HAS CHRONIC BACK PAIN NO SOB, NO CHEST PAIN DW RN AND PATIENT CONTINUE ANTIBIOTICS 03-31 CONSULT GI REGARDING PEG REMOVAL AM LABS CHRONIC PAIN NO SOB, NO CHEST PAIN CONTINUE ON ANTIBIOTICS 04-01 HAD PEG TUBE REMOVED BY GI NO SOB, NO CHEST PAIN DW RN AND PT 04-02 complains of pain needs oral meds 04-03 PT AND OT TO EVAL AND TREAT PAIN BETTER CONTROLLED NO NEW COMPLAINTS TODAY DW PT AND RN Objective Vitals Vital Signs Date Time Temp Pulse Resp B/P (MAP) Pulse Ox O2 Delivery O2 Flow Rate FiO2 04/03/17 09:20 Room Air 04/03/17 09:07 97.8 65 16 123/77 (92) 96 04/03/17 05:43 18 04/03/17 04:00 98.3 67 16 117/71 (86) 98 04/03/17 00:00 98.5 70 16 128/61 (83) 97 04/02/17 22:42 18 04/02/17 21:30 98 Room Air 04/02/17 20:00 98.5 70 18 132/70 (90) 97 04/02/17 16:09 98 Room Air 04/02/17 15:49 96.7 66 19 138/78 (98) 98 I/O 04/02/17 04/02/17 04/02/17 04/03/17 04/03/17 04/03/17 06:59 14:59 22:59 06:59 14:59 22:59 Intake Total 1207 ml 1995 ml 510 ml Output Total 1875 ml 1650 ml 1770 ml Balance -668 ml 345 ml -1260 ml Intake Oral 480 ml 1000 ml IV Total 727 ml 995 ml 510 ml Output Urine Total 1875 ml 1650 ml 1770 ml # Bowel Movements 1 1 Result Diagram: 04/01/1736 04/01/17 0936 Other Results Laboratory Tests Test 04/01/17 09:26 04/01/17 09:36 Prothrombin Time 12.3 SEC Prothromb Time International Ratio 1.1 RATIO White Blood Count 8.9 TH/MM3 Red Blood Count 3.17 MIL/MM3 Hemoglobin 9.4 GM/DL Hematocrit 27.8 % Mean Corpuscular Volume 87.8 FL Mean Corpuscular Hemoglobin 29.6 PG Mean Corpuscular Hemoglobin Concent 33.7 % Red Cell Distribution Width 16.6 % Platelet Count 268 TH/MM3 Mean Platelet Volume 8.8 FL Neutrophils (%) (Auto) 73.1 % Lymphocytes (%) (Auto) 14.9 % Monocytes (%) (Auto) 8.6 % Eosinophils (%) (Auto) 2.9 % Basophils (%) (Auto) 0.5 % Neutrophils # (Auto) 6.5 TH/MM3 Lymphocytes # (Auto) 1.3 TH/MM3 Monocytes # (Auto) 0.8 TH/MM3 Eosinophils # (Auto) 0.3 TH/MM3 Basophils # (Auto) 0.0 TH/MM3 CBC Comment DIFF FINAL Differential Comment Blood Urea Nitrogen 11 MG/DL Creatinine 0.64 MG/DL Random Glucose 106 MG/DL Total Protein 5.4 GM/DL Albumin 1.1 GM/DL Calcium Level 7.3 MG/DL Phosphorus Level 2.6 MG/DL Magnesium Level 1.6 MG/DL Alkaline Phosphatase 78 U/L Aspartate Amino Transf (AST/SGOT) 24 U/L Alanine Aminotransferase (ALT/SGPT) 22 U/L Total Bilirubin 0.2 MG/DL Sodium Level 127 MEQ/L Potassium Level 4.2 MEQ/L Chloride Level 97 MEQ/L Carbon Dioxide Level 22.3 MEQ/L Anion Gap 8 MEQ/L Estimat Glomerular Filtration Rate 126 ML/MIN Protein Corrected Calcium 8.2 MG/DL Imaging Last Impressions Chest X-Ray 03/29/17 0000 Signed Impressions: Service Date/Time: Wednesday, March 29, 2017 12:17 - CONCLUSION: Stable chest. Isaac Stevenson MD FACR Tumor Localization 03/22/17 0000 Signed Impressions: Service Date/Time: Wednesday, March 22, 2017 13:03 - CONCLUSION: Nondiagnostic examination secondary to patient refusal Harry Lucio MD Abdomen X-Ray 03/08/17 0000 Signed Impressions: Service Date/Time: Wednesday, March 08, 2017 10:30 - CONCLUSION: Nonspecific, negative for obstruction or ileus. Isaac Stevenson MD FACR Lower Extremity CT 03/01/17 0000 Signed Impressions: Service Date/Time: Wednesday, March 01, 2017 11:12 - CONCLUSION: 1. No evidence of organized fluid collections to suggest an abscess. 2. Extensive soft tissue swelling surrounding the ankle and extending to the forefoot especially along the lateral aspect. 3. No erosive or destructive bone changes. 4. Bone defects compatible with previous excision device. Blake Rider MD Ankle X-Ray 02/26/17 0000 Signed Impressions: Service Date/Time: Sunday, February 26, 2017 17:15 - CONCLUSION: I see no retained surgical instruments. Isaac Stevenson MD FACR Upper Extremity Ultrasound 02/25/17 1734 Signed Impressions: Service Date/Time: February 17:54 - CONCLUSION: There is a thin fluid collection within the focal area of soft tissue swelling 2nd digit. Oscar Cassidy MD Hand X-Ray 02/25/17 0000 Signed Impressions: Service Date/Time: February 18:59 - CONCLUSION: No gross bony abnormality. Oscar Cassidy MD Lower Extremity Ultrasound 02/24/17 0000 Signed Impressions: Service Date/Time: Friday, February 24, 2017 13:41 - CONCLUSION: Negative for deep venous thrombosis. Isaac Stevenson MD FACR Head CT 02/24/17 0000 Signed Impressions: Service Date/Time: Friday, February 24, 2017 16:08 - CONCLUSION: 1. No acute intracranial abnormality. 2. Probable large mucocele in the sphenoid sinus. Ty Hankins MD Abdomen/Pelvis CT 02/24/17 0000 Signed Impressions: Service Date/Time: Friday, February 24, 2017 16:16 - CONCLUSION: 1. Marked gaseous distension of large and small bowel most suggestive of ileus. 2. There is no free air. 3. 2.2 cm left adrenal mass. 4. Distended bladder. Isaac Stevenson MD FACR Objective Remarks GENERAL: This is a well-nourished, well-developed patient, in no apparent distress. SKIN: No rashes, warm and dry HEAD: Atraumatic. Normocephalic. EYES: Pupils equal round and reactive. Extraocular motions intact. No scleral icterus. TONGUE MIDLINE- ORAL MUCOSA MOIST ENT: Nose without bleeding, or drainage, Airway patent. NECK: Trachea midline. Supple CARDIOVASCULAR: Regular rate and rhythm without murmurs, gallops, or rubs. S1, S2 NO S3 OR S4 NO HEAVE RESPIRATORY: Fair air entry bilaterally. No wheezes, rales, or rhonchi. GASTROINTESTINAL: Abdomen soft, non-tender, nondistended. Positive bowel sounds PEG IS GONE NOW GROIN SWOLLEN SCROTAL AREA-ELEVATED WITH BATH TOWEL- SANCHEZ IN PLACE MUSCULOSKELETAL:No cyanosis, or edema. Right and left arms are bandaged home right arm in lifting sling. Right LE IS BANDAGED HAS RIGHT BKA NEUROLOGICAL: Awake and alert. Moves all extremity. Normal speech.no focal neurological deficit : Scrotum swelling Procedures 03/10/2017 - Dr. Bullock exploration, wash, excisional debridement extensor tenosynovium right wrist/forearm/hand 03/08/17 - Dr. Bullock- exploration, wash, excisional debridement skin, subcutaneous tissue, extensor tenosynovitis right wrist and hand. Findings: necrotic tissue, minimal purulence, extensor tenosynovitis right wrist/hand 03/04/17 - Dr Gamez - Right leg and incision and drainage. Right foot delayed primary closure x3 03/04/17 - Dr. Bullock - Extensor tenosynovectomy second, third, fourth extensor compartments right wrist and excisional debridement wash index finger metacarpal phalangeal joint, excisional wash and excisional debridement left hand. 02/28/17 - Dr. Reyes - Right ankle wound debridement and washout. Implantation of antibiotic vancomycin beads. 02/28/17 - Dr. Bullock - Exploration, wash, excisional debridement index finger metacarpophalangeal joint right hand; Exploration, wash, excisional debridement metacarpophalangeal joint left index finger; Exploration, wash, excisional debridement extensor pollicis longus tendon right thumb and hand. 02/26/17 - Dr. Reyes - Right ankle incision and drainage, arthrotomy, removal infected hardware, bone biopsy. 02/26/17 - Dr. Bullock - Exploration, incision and drainage right hand abscess, Arthrotomy wash metacarpal phalangeal joint right index finger, Arthrotomy wash metacarpal phalangeal joint left index finger. Medications and IVs Current Medications Sodium Chloride 1,000 ml @ 999 mls/hr BOLUS ONCE IV Last administered on 13:38; Start 02/24/17 at 13:45; Stop 02/24/17 at 14:45; Status DC IV Flush (NS Flush) 2 ml UNSCH PRN IV FLUSH FLUSH AFTER USING IV ACCESS Last administered on 02/24/17 13:38; Start 02/24/17 at 13:45 Vancomycin HCl 1000 mg/Sodium Chloride 250 ml @ 250 mls/hr ONCE STAT IV Last administered on 02/24/17 15:49; Start 02/24/17 at 15:35; Stop 02/24/17 at 16:34; Status DC Cefepime HCl 2000 mg/Sodium Chloride 100 ml @ 200 mls/hr ONCE STAT IV Last administered on 02/24/17 16:36; Start 02/24/17 at 15:35; Stop 02/24/17 at 16:04; Status DC Potassium Bicarb/ Potassium Chloride (K-Lyte Cl Eff) 50 meq ONCE ONCE PO Last administered on 02/24/17 15:56; Start 02/24/17 at 16:00; Stop 02/24/17 at 16: 01; Status DC Iohexol (Omnipaque 350 Inj) 97 ml STK-MED ONCE IV Last administered on 16:29; Start 02/24/17 at 16:29; Stop 02/24/17 at 16:30; Status DC Sodium Chloride 1,000 ml @ 125 mls/hr Q8H IV Last administered on 03/02/17 09: 33; Start 02/24/17 at 18:00; Stop 03/02/17 at 13:08; Status DC Ondansetron HCl (Zofran Inj) 4 mg Q8HR PRN IV PUSH NAUSEA; Start 02/24/17 at 18: 00 Thiamine HCl (Vitamin B1) 100 mg ONCE ONCE PO Last administered on 02/24/17 20 :20; Start 02/24/17 at 20:15; Stop 02/24/17 at 20:16; Status DC Thiamine HCl (Vitamin B1) 100 mg DAILY PO Last administered on 04/03/17 09:17; Start 02/25/17 at 09:00 Potassium Chloride 100 ml @ 50 mls/hr Q2H IV Last administered on 02/24/17 22: 59; Start 02/24/17 at 20:30; Stop 02/25/17 at 00:29; Status DC Pharmacy Profile Note 0 ml @ 0 mls/hr UNSCH OTHER ; Start 02/24/17 at 20:15; Stop 03/02/17 at 13:23; Status DC Cefepime HCl 2000 mg/Sodium Chloride 100 ml @ 200 mls/hr Q12H IV Last administered on 02/27/17 05:51; Start 02/25/17 at 07:00; Stop 02/27/17 at 14:53; Status DC Vancomycin HCl 1500 mg/Sodium Chloride 515 ml @ 257.5 mls/ hr Q18H IV Last administered on 02/25/17 10:30; Start 02/25/17 at 10:00; Stop 02/25/17 at 11:30; Status DC Miscellaneous Information SPECIFIC LAB TO BE DRAWN:VANCO TROUGH DATE TO BE DR... ONCE ONCE .XX ; Start 02/26/17 at 21:45; Stop 02/26/17 at 21:46; Status DC Flumazenil (Romazicon Inj) 0.2 mg Q1M PRN IV PUSH SEE LABEL COMMENTS; Start 02/25/17 at 09:15 Lorazepam (Ativan) 1 mg Q4H PRN PO agitation Last administered on 03/20/17 03: 18; Start 02/25/17 at 09:15 Lorazepam (Ativan Inj) 1 mg Q4H PRN IV PUSH agitation when not taking po Last administered on 03/05/17 02:41; Start 02/25/17 at 09:15 Lorazepam (Ativan) 2 mg Q2H PRN PO CIWA 11-14; Start 02/25/17 at 09:15; Stop 02/28/17 at 07:44; Status DC Lorazepam (Ativan Inj) 2 mg Q2H PRN IV PUSH CIWA 11-14 Last administered on 02/26 18:14; Start 02/25/17 at 09:15; Stop 02/28/17 at 07:44; Status DC Lorazepam (Ativan Inj) 2 mg Q1H PRN IV PUSH CIWA 15-20 Last administered on 02/25 21:37; Start 02/25/17 at 09:15; Stop 02/28/17 at 07:44; Status DC Lorazepam (Ativan Inj) 2 mg Q15M PRN IV PUSH CIWA > 20 Last administered on 02/26 06:25; Start 02/25/17 at 09:15; Stop 02/28/17 at 07:44; Status DC Multivitamins (Theragran) 1 tab DAILY PO Last administered on 04/03/17 09:17; Start 02/26/17 at 09:00 Acetaminophen (Tylenol) 650 mg Q4H PRN PO FEVER Last administered on 03/07/17 04:47; Start 02/25/17 at 09:15; Stop 03/12/17 at 10:47; Status DC Lisinopril (Prinivil) 10 mg DAILY PO ; Start 02/26/17 at 09:00; Stop 03/08/17 at 21:09; Status DC Enoxaparin Sodium (Lovenox Inj) 40 mg Q24H SQ Last administered on 03/07/17 10 :00; Start 02/25/17 at 10:00; Stop 03/10/17 at 12:17; Status DC Vancomycin HCl 1500 mg/Sodium Chloride 515 ml @ 257.5 mls/ hr Q12H IV Last administered on 02/26/17 09:42; Start 02/25/17 at 22:00; Stop 02/26/17 at 12:06; Status DC Miscellaneous Information SPECIFIC LAB TO BE BIA... ONCE ONCE .XX Last administered on 02/26/17 09:45; Start 02/26/17 at 09:45; Stop 02/26/17 at 09:46; Status DC Chlordiazepoxide (Librium) 25 mg Q8H PO ; Start 02/25/17 at 17:00; Stop 02/25/17 at 20:24; Status DC Gentamicin Sulfate 70 mg/ Sodium Chloride 101.75 ml @ 100 mls/ hr ONCE ONCE IV Last administered on 02/25/17 18:51; Start 02/25/17 at 18:30; Stop 02/25/17 at 19:31; Status DC Dexmedetomidine HCl 200 mcg/ Sodium Chloride 52 ml @ 0 mls/hr TITRATE IV Last administered on 02/27/17 13:55; Start 02/25/17 at 17:30; Stop 03/09/17 at 23:34; Status DC Acetaminophen (Ofirmev Inj) 650 mg Q6H PRN IV TEMP >101 Last administered on 20:12; Start 02/25/17 at 21:00 Iohexol (Omnipaque 350 Inj) 75 ml STK-MED ONCE IV Last administered on 21:15; Start 02/25/17 at 21:15; Stop 02/25/17 at 21:16; Status DC Potassium Chloride 100 ml @ 50 mls/hr Q2H PRN IV For Potassium 2.8 - 3.2 mEq/L ; Start 02/25/17 at 22:45; Stop 03/01/17 at 23:53; Status DC Potassium Chloride 100 ml @ 50 mls/hr Q2H PRN IV For Potassium 2.8 - 3.2 mEq/ L Last administered on 02/28/17 12:32; Start 02/25/17 at 22:45; Stop 03/01/17 at 23:53; Status DC Potassium Bicarb/ Potassium Chloride (K-Lyte Cl Eff) 50 meq UNSCH PRN PO For Potassium 3.3 - 3.5 mEq/L; Start 02/25/17 at 22:45; Stop 03/01/17 at 23:53; Status DC Potassium Chloride 100 ml @ 25 mls/hr UNSCH PRN IV For Potassium 3.3 - 3.5 mEq /L; Start 02/25/17 at 22:45; Stop 03/01/17 at 23:53; Status DC Potassium Chloride 100 ml @ 50 mls/hr Q2H PRN IV For Potassium 3.3 - 3.5 mEq/ L Last administered on 02/28/17 06:39; Start 02/25/17 at 22:45; Stop 03/01/17 at 23:53; Status DC Magnesium Sulfate 4 gm/Sodium Chloride 100 ml @ 50 mls/hr UNSCH PRN IV For Magnesium 0.9 - 1.1 mg/dL; Start 02/25/17 at 22:45; Stop 03/01/17 at 23:53; Status DC Magnesium Oxide (Mag-Ox) 800 mg UNSCH PRN PO For Magnesium 1.2 - 1.6 mg/dL; Start 02/25/17 at 22:45; Stop 03/01/17 at 23:53; Status DC Magnesium Sulfate 2 gm/Sodium Chloride 100 ml @ 50 mls/hr UNSCH PRN IV For Magnesium 1.2 - 1.6 mg/dL; Start 02/25/17 at 22:45; Stop 03/01/17 at 23:53; Status DC Potassium Phosphate (K-Phos) 2,000 mg Q4H PRN PO For Phosphorus < 2.5 mg/dL; Start 02/25/17 at 22:45; Stop 03/01/17 at 23:53; Status DC Sodium Phosphate 30 mmol/Sodium Chloride 250 ml @ 42 mls/hr UNSCH PRN IV For Phosphorus < 2.5 mg/dL Last administered on 02/26/17 23:19; Start 02/25/17 at 22: 45; Stop 03/01/17 at 23:53; Status DC Potassium Phosphate (K-Phos) 2,000 mg UNSCH PRN PO/TUBE SEE LABEL COMMENTS; Start 02/25/17 at 22:45; Stop 03/01/17 at 23:53; Status DC Potassium Phosphate 30 mmol/ Sodium Chloride 260 ml @ 42 mls/hr UNSCH PRN IV SEE LABEL COMMENTS; Start 02/25/17 at 22:45; Stop 03/01/17 at 23:53; Status DC Labetalol HCl (Trandate Inj) 10 mg Q6H PRN IV PUSH SBP >165; Start 02/25/17 at 23:15 Pantoprazole Sodium (Protonix Inj) 40 mg Q24H IV PUSH Last administered on 00:35; Start 02/26/17 at 00:00 Miscellaneous Information Patient in critical care unit? Ass... [id number] .XX ; Start 02/26/17 at 07:15 Mupirocin (Bactroban Nasal 2% Oint) 1 applic BID NASAL Last administered on 04/03 09:17; Start 02/26/17 at 09:00 Chlorhexidine Gluconate (Chlorhexidine 2% Cloth) 3 pack DAILY@04 TOPICAL Last administered on 03/03/17 04:00; Start 02/27/17 at 04:00; Stop 03/03/17 at 04:01; Status DC Chlorhexidine Gluconate (Chlorhexidine 2% Cloth) 3 pack UNSCH PRN TOPICAL HYGIENIC CARE; Start 02/26/17 at 07:15; Stop 03/03/17 at 07:07; Status DC Lidocaine HCl (Xylocaine 2% Inj) 50 ml STK-MED ONCE .ROUTE ; Start 02/26/17 at 09 :35; Stop 02/26/17 at 09:36; Status DC Bupivacaine HCl (Marcaine Pf 0.5% Inj) 60 ml STK-MED ONCE .ROUTE ; Start at 09:35; Stop 02/26/17 at 09:36; Status DC Mupirocin (Bactroban 2% Oint) 22 applic STK-MED ONCE .ROUTE ; Start 02/26/17 at 09:35; Stop 02/26/17 at 09:36; Status DC Vancomycin HCl 1250 mg/Sodium Chloride 262.5 ml @ 250 mls/hr Q12H IV Last administered on 03/02/17 09:33; Start 02/26/17 at 22:00; Stop 03/02/17 at 13:23; Status DC Miscellaneous Information SPECIFIC LAB TO BE BIA... ONCE ONCE .XX Last administered on 02/27/17 22:46; Start 02/27/17 at 21:45; Stop 02/27/17 at 21:46; Status DC Neomycin/Polymyxin (Neosporin G.u. Irr) 3 ml STK-MED ONCE TOPICAL Last administered on 02/26/17 13:06; Start 02/26/17 at 13:06; Stop 02/26/17 at 16:26; Status DC Neomycin/Polymyxin (Neosporin G.u. Irr) 4 ml STK-MED ONCE TOPICAL Last administered on 02/26/17 15:47; Start 02/26/17 at 15:47; Stop 02/26/17 at 16:26; Status DC Fentanyl Citrate (fentaNYL INJ) 250 mcg STK-MED ONCE .ROUTE ; Start 02/26/17 at 18:16; Stop 02/26/17 at 18:17; Status DC Fentanyl Citrate (fentaNYL INJ) 100 mcg STK-MED ONCE .ROUTE ; Start 02/26/17 at 18:16; Stop 02/26/17 at 18:17; Status DC Miscellaneous Information ALL NURSING DEPARTME... UNSCH PRN .XX SEE LABEL COMMENTS; Start 02/26/17 at 17:57; Stop 02/27/17 at 17:56; Status DC Clonidine (Catapres) 0.3 mg Q8HR PO Last administered on 04/03/17 05:03; Start 02/26/17 at 22:11 Diazepam (Valium) 5 mg Taper DAILY PO Last administered on 03/06/17 09:49; Start 02/26/17 at 22:15; Stop 03/06/17 at 22:14; Status DC Water (Free Water) 200 ml Q8HR G-TUBE Last administered on 02/27/17 22:31; Start 02/27/17 at 06:55; Stop 02/28/17 at 07:41; Status DC Rifampin 300 mg/ Sodium Chloride 100 ml @ 100 mls/hr Q12H IV Last administered on 03/02/17 14:41; Start 02/27/17 at 15:00; Stop 03/02/17 at 16:41; Status DC Oxycodone HCl (Roxicodone) 5 mg Q4H PRN PO pain 1-5 Last administered on 09:26; Start 02/28/17 at 07:45 Hydromorphone HCl (Dilaudid Pf Inj) 0.5 mg Q3H PRN IV PUSH pain 6-10 or not taking po Last administered on 04/03/17 05:05; Start 02/28/17 at 07:45 Water (Free Water) 300 ml Q4HR G-TUBE Last administered on 03/02/17 20:00; Start 02/28/17 at 08:00; Stop 03/02/17 at 23:07; Status DC Vancomycin HCl (Vancomycin Inj) 1,000 mg STK-MED ONCE .ROUTE Last administered on 02/28/17 09:01; Start 02/28/17 at 09:01; Stop 02/28/17 at 09:02; Status DC Vancomycin HCl (Vancomycin Inj) 1,000 mg STK-MED ONCE .ROUTE Last administered on 02/28/17 09:33; Start 02/28/17 at 09:33; Stop 02/28/17 at 09:34; Status DC Vancomycin HCl (Vancomycin Inj) 1,000 mg STK-MED ONCE .ROUTE Last administered on 02/28/17 09:36; Start 02/28/17 at 09:33; Stop 02/28/17 at 09:34; Status DC Daptomycin 450 mg/ Sodium Chloride 100 ml @ 200 mls/hr Q24H IV Last administered on 03/05/17 13:41; Start 02/28/17 at 12:00; Stop 03/05/17 at 18:00 ; Status DC Vancomycin HCl (Vancomycin Inj) 1,000 mg STK-MED ONCE .ROUTE Last administered on 02/28/17 10:45; Start 02/28/17 at 10:42; Stop 02/28/17 at 10:43; Status DC Vancomycin HCl (Vancomycin Inj) 500 mg STK-MED ONCE .ROUTE Last administered on 02/28/17 10:45; Start 02/28/17 at 10:42; Stop 02/28/17 at 10:43; Status DC Fentanyl Citrate (fentaNYL INJ) 250 mcg STK-MED ONCE .ROUTE ; Start 02/28/17 at 11:48; Stop 02/28/17 at 11:49; Status DC Miscellaneous Information ALL NURSING DEPARTME... UNSCH PRN .XX SEE LABEL COMMENTS; Start 02/28/17 at 11:33; Stop 03/01/17 at 11:32; Status DC Miscellaneous Information SPECIFIC LAB TO BE BIA... ONCE ONCE .XX ; Start 03/04 at 09:45; Stop 03/04/17 at 09:46; Status Cancel Sodium Chloride 1,000 ml @ 999 mls/hr BOLUS ONCE IV Last administered on 13:28; Start 03/02/17 at 13:15; Stop 03/02/17 at 14:15; Status DC Sodium Chloride 1,000 ml @ 125 mls/hr Q8H IV Last administered on 03/02/17 14: 18; Start 03/02/17 at 13:15; Stop 03/02/17 at 14:30; Status DC Rifampin (Rifampin) 300 mg Q12HR PO Last administered on 03/23/17 08:42; Start 03/02/17 at 21:00; Stop 03/23/17 at 18:40; Status DC Potassium Chloride 20 meq/ Sodium Chloride 38.5 meq/Sterile Water 1,010 ml @ 55 mls/hr [id number] IV Last administered on 03/09/17 22:51; Start 03/03/17 at 11: 00; Stop 03/09/17 at 23:36; Status DC Furosemide (Lasix Inj) 20 mg ONCE ONCE IV PUSH Last administered on 03/03/17 10:19; Start 03/03/17 at 09:30; Stop 03/03/17 at 09:43; Status DC Carvedilol (Coreg) 6.25 mg Q12HR PO Last administered on 04/03/17 09:17; Start 03/03/17 at 21:00 Vancomycin HCl (Vancomycin Inj) 1,000 mg STK-MED ONCE .ROUTE Last administered on 03/04/17 15:52; Start 03/04/17 at 15:10; Stop 03/04/17 at 15:11; Status DC Fentanyl Citrate (fentaNYL INJ) 100 mcg STK-MED ONCE .ROUTE ; Start 03/04/17 at 16:38; Stop 03/04/17 at 16:39; Status DC Fentanyl Citrate (fentaNYL INJ) 250 mcg STK-MED ONCE .ROUTE ; Start 03/04/17 at 16:38; Stop 03/04/17 at 16:39; Status DC Vancomycin HCl (Vancomycin Inj) 1,000 mg STK-MED ONCE .ROUTE Last administered on 03/04/17 16:52; Start 03/04/17 at 16:59; Stop 03/04/17 at 17:00; Status DC Fentanyl Citrate (fentaNYL INJ) 100 mcg STK-MED ONCE .ROUTE ; Start 03/04/17 at 18:24; Stop 03/04/17 at 18:25; Status DC Fentanyl Citrate (fentaNYL INJ) 250 mcg STK-MED ONCE .ROUTE ; Start 03/04/17 at 18:25; Stop 03/04/17 at 18:26; Status DC Miscellaneous Information ALL NURSING DEPARTME... UNSCH PRN .XX SEE LABEL COMMENTS; Start 03/04/17 at 19:15; Stop 03/05/17 at 19:14; Status DC Daptomycin 550 mg/ Sodium Chloride 100 ml @ 200 mls/hr Q24H IV Last administered on 04/02/17 13:17; Start 03/06/17 at 12:00 Bisacodyl (Dulcolax Supp) 10 mg DAILY PRN RECTAL SEVERE CONSITIPATION; Start at 21:00 Lactulose (Lactulose Liq) 30 ml DAILY PRN NG SEVERE CONSITIPATION Last administered on 03/07/17 18:45; Start 03/06/17 at 21:00 Docusate Sodium (Colace Liq) 100 mg Q12HR PO Last administered on 03/09/17 09: 30; Start 03/06/17 at 21:15; Status Future Hold Sodium Chloride 250 ml @ 15 mls/hr ONCE ONCE IV Last administered on 00:27; Start 03/07/17 at 19:00; Stop 03/08/17 at 12:06; Status DC Furosemide (Lasix Inj) 20 mg ONCE ONCE IV Last administered on 03/08/17 03:49 ; Start 03/07/17 at 19:00; Stop 03/07/17 at 19:01; Status DC Polyethylene Glycol/ Electrolytes (Colyte Liq) 4,000 ml ONCE ONCE PO ; Start at 11:00; Stop 03/08/17 at 11:01; Status Cancel Mupirocin (Bactroban 2% Oint) 22 applic STK-MED ONCE .ROUTE ; Start 03/08/17 at 12:10; Stop 03/08/17 at 12:11; Status DC Lidocaine HCl (Xylocaine 2% Inj) 50 ml STK-MED ONCE .ROUTE ; Start 03/08/17 at 12:13; Stop 03/08/17 at 12:14; Status DC Bupivacaine HCl (Marcaine Pf 0.5% Inj) 30 ml STK-MED ONCE .ROUTE ; Start at 12:17; Stop 03/08/17 at 12:18; Status DC Famotidine (Pepcid Inj) 20 mg STK-MED ONCE .ROUTE ; Start 03/08/17 at 13:17; Stop 03/08/17 at 13:18; Status DC Vancomycin HCl (Vancomycin Inj) 1,000 mg STK-MED ONCE .ROUTE Last administered on 03/08/17 14:35; Start 03/08/17 at 14:07; Stop 03/08/17 at 14:08; Status DC Sodium Chloride (Sodium Chloride 0.9% Inj) 20 ml STK-MED ONCE .ROUTE ; Start at 14:07; Stop 03/08/17 at 14:08; Status DC Vancomycin HCl (Vancomycin Inj) 1,000 mg STK-MED ONCE .ROUTE ; Start 03/08/17 at 14:42; Stop 03/08/17 at 14:43; Status DC Sodium Chloride (Sodium Chloride 0.9% Inj) 20 ml STK-MED ONCE .ROUTE ; Start at 14:42; Stop 03/08/17 at 14:43; Status DC Fentanyl Citrate (fentaNYL INJ) 500 mcg STK-MED ONCE .ROUTE ; Start 03/08/17 at 15:51; Stop 03/08/17 at 15:52; Status DC Miscellaneous Information ALL NURSING DEPARTME... UNSCH PRN .XX SEE LABEL COMMENTS; Start 03/08/17 at 15:40; Stop 03/09/17 at 15:39; Status DC Polyethylene Glycol/ Electrolytes (Colyte Liq) 4,000 ml ONCE ONCE NG Last administered on 03/08/17 22:42; Start 03/08/17 at 20:00; Stop 03/08/17 at 20:01 ; Status DC Lisinopril (Prinivil) 2.5 mg DAILY PO Last administered on 04/03/17 09:18; Start 03/09/17 at 09:00 Miscellaneous (Pill Splitter) 1 ea UNSCH PRN OTHER SEE LABEL COMMENTS; Start at 21:15 Dextrose 1,000 ml @ 84 mls/hr [id number] IV Last administered on 03/11/17 21:24 ; Start 03/09/17 at 23:45; Stop 03/11/17 at 23:38; Status DC Enoxaparin Sodium (Lovenox Inj) 40 mg Q24H SQ Last administered on 04/02/17 13: 13; Start 03/10/17 at 13:00; Status Future hold Bupivacaine HCl (Marcaine Pf 0.5% Inj) 30 ml STK-MED ONCE .ROUTE ; Start at 14:50; Stop 03/10/17 at 14:51; Status DC Lidocaine HCl (Xylocaine 2% Inj) 50 ml STK-MED ONCE .ROUTE ; Start 03/10/17 at 14:51; Stop 03/10/17 at 14:52; Status DC Bacitracin (Baciguent Oint) 15 applic STK-MED ONCE .ROUTE Last administered on 03/10/17 16:43; Start 03/10/17 at 14:51; Stop 03/10/17 at 14:52; Status DC Vancomycin HCl (Vancomycin Inj) 1,000 mg STK-MED ONCE .ROUTE Last administered on 03/10/17 15:49; Start 03/10/17 at 15:45; Stop 03/10/17 at 15:46; Status DC Sodium Chloride (Sodium Chloride 0.9% Inj) 20 ml STK-MED ONCE .ROUTE ; Start at 15:45; Stop 03/10/17 at 15:46; Status DC Neomycin/Polymyxin (Neosporin G.u. Irr) 2 ml STK-MED ONCE TOPICAL Last administered on 03/10/17 15:49; Start 03/10/17 at 15:49; Stop 03/10/17 at 15:59 ; Status DC Bacitracin (Baciguent Oint) 30 applic STK-MED ONCE .ROUTE Last administered on 03/10/17 16:44; Start 03/10/17 at 16:41; Stop 03/10/17 at 16:42; Status DC Hydromorphone HCl (Dilaudid Pf Inj) 2 mg STK-MED ONCE .ROUTE ; Start 03/10/17 at 16:47; Stop 03/10/17 at 16:48; Status DC Fentanyl Citrate (fentaNYL INJ) 250 mcg STK-MED ONCE .ROUTE ; Start 03/10/17 at 17:22; Stop 03/10/17 at 17:23; Status DC Morphine Sulfate (*morphine INJ PERIprocedure ONLY) 8 mg STK-MED ONCE .ROUTE Last administered on 03/10/17 18:12; Start 03/10/17 at 18:12; Stop 03/10/17 at 18:13; Status DC Miscellaneous Information ALL NURSING DEPARTME... UNSCH PRN .XX SEE LABEL COMMENTS; Start 03/10/17 at 14:30; Stop 03/11/17 at 14:29; Status DC Propofol (Diprivan 200 Mg/20 ml Inj) 200 mg STK-MED ONCE IV PUSH ; Start at 15:29; Stop 03/11/17 at 15:47; Status DC Oxybenzone/ Padimate O/ Dimethicone (Blistex Lip [place]) 4.25 applic STK-MED ONCE TOPICAL Last administered on 03/11/17 16:02; Start 03/11/17 at 16:02; Stop at 16:03; Status DC Miscellaneous Information ALL NURSING DEPARTME... UNSCH PRN .XX SEE LABEL COMMENTS; Start 03/11/17 at 16:00; Stop 03/12/17 at 15:59; Status DC Succinylcholine Chloride (Quelicin Inj) 200 mg STK-MED ONCE IV PUSH ; Start at 15:27; Stop 03/12/17 at 08:59; Status DC Sodium Chloride 250 ml @ 15 mls/hr ONCE ONCE IV Last administered on 10:15; Start 03/12/17 at 10:15; Stop 03/13/17 at 02:54; Status DC Acetaminophen (Tylenol) 650 mg Q4H PRN PO SEE LABEL COMMENTS; Start 03/12/17 at 10:15; Stop 03/12/17 at 14:16; Status DC Diphenhydramine HCl (Benadryl) 25 mg Q4H PRN PO SEE LABEL COMMENTS; Start 03/12 at 10:15; Stop 03/12/17 at 14:16; Status DC Potassium Chloride 100 ml @ 50 mls/hr Q2H IV Last administered on 03/12/17 13 :25; Start 03/12/17 at 11:00; Stop 03/12/17 at 14:59; Status DC Lidocaine HCl (Xylocaine 2% Inj) 50 ml STK-MED ONCE .ROUTE ; Start 03/12/17 at 13:04; Stop 03/12/17 at 13:05; Status DC Mupirocin (Bactroban 2% Oint) 22 applic STK-MED ONCE .ROUTE ; Start 03/12/17 at 13:06; Stop 03/12/17 at 13:07; Status DC Hydromorphone HCl (Dilaudid Pf Inj) 2 mg STK-MED ONCE .ROUTE ; Start 03/12/17 at 15:18; Stop 03/12/17 at 15:19; Status DC Acetaminophen (Ofirmev Inj) 1,000 mg STK-MED ONCE IV ; Start 03/12/17 at 15:18; Stop 03/12/17 at 15:19; Status DC Vancomycin HCl (Vancomycin Inj) 1,000 mg STK-MED ONCE .ROUTE Last administered on 03/12/17 15:54; Start 03/12/17 at 15:57; Stop 03/12/17 at 15:58; Status DC Neomycin/Polymyxin (Neosporin G.u. Irr) 2 ml STK-MED ONCE TOPICAL Last administered on 03/12/17 15:54; Start 03/12/17 at 15:54; Stop 03/12/17 at 16:15 ; Status DC Fentanyl Citrate (fentaNYL INJ) 250 mcg STK-MED ONCE .ROUTE ; Start 03/12/17 at 17:04; Stop 03/12/17 at 17:05; Status DC Miscellaneous Information ALL NURSING DEPARTME... UNSCH PRN .XX SEE LABEL COMMENTS; Start 03/12/17 at 17:30; Stop 03/13/17 at 17:29; Status DC Morphine Sulfate (*morphine INJ PERIprocedure ONLY) 8 mg STK-MED ONCE .ROUTE Last administered on 03/12/17 17:33; Start 03/12/17 at 17:33; Stop 03/12/17 at 17:34; Status DC Lidocaine HCl (Xylocaine 1% Inj) 10 ml ONCE@0700 ONCE OTHER ; Start 03/13/17 at 07:00; Stop 03/13/17 at 07:01; Status DC Potassium Chloride/Sodium Chloride 1,000 ml @ 75 mls/hr [id number] IV Last administered on 04/03/17 00:35; Start 03/13/17 at 11:30 Polyethylene Glycol/ Electrolytes (Colyte Liq) 4,000 ml ONCE ONCE PEG Last administered on 03/14/17 17:13; Start 03/14/17 at 16:00; Stop 03/14/17 at 16:01 ; Status DC Sodium Chloride 250 ml @ 15 mls/hr ONCE ONCE IV Last administered on 21:30; Start 03/13/17 at 20:00; Stop 03/14/17 at 12:39; Status DC Polyethylene Glycol/ Electrolytes (Colyte Liq) 4,000 ml ONCE ONCE PO Last administered on 03/15/17 17:19; Start 03/15/17 at 16:45; Stop 03/15/17 at 16:48 ; Status DC Propofol (Diprivan 200 Mg/20 ml Inj) 180 mg ONCE ONCE IV Last administered on 03/15/17 16:45; Start 03/15/17 at 16:43; Stop 03/15/17 at 16:45; Status DC Sodium Biphosphate/ Sodium Phosphate (Fleets Enema (Adult)) 133 ml ONCE ONCE RECTAL Last administered on 03/16/17 14:45; Start 03/16/17 at 14:15; Stop at 14:21; Status DC Sodium Biphosphate/ Sodium Phosphate (Fleets Enema (Adult)) 133 ml ONCE ONCE RECTAL Last administered on 03/17/17 09:49; Start 03/17/17 at 08:00; Stop at 08:01; Status DC Propofol (Diprivan 200 Mg/20 ml Inj) 100 mg ONCE ONCE IV PUSH ; Start at 15:00; Stop 03/16/17 at 15:01; Status DC Midazolam HCl (Versed Inj) 2 mg STK-MED ONCE .ROUTE ; Start 03/16/17 at 15:34; Stop 03/16/17 at 15:35; Status DC Vancomycin HCl (Vancomycin Inj) 1,000 mg STK-MED ONCE .ROUTE Last administered on 03/18/17 18:58; Start 03/18/17 at 18:15; Stop 03/18/17 at 18:16; Status DC Fentanyl Citrate (fentaNYL INJ) 200 mcg STK-MED ONCE .ROUTE ; Start 03/18/17 at 19:50; Stop 03/18/17 at 19:51; Status DC Methocarbamol (Robaxin) 500 mg Q8HR PO Last administered on 04/03/17 05:03; Start 03/19/17 at 14:00 Acetaminophen 100 ml @ As Directed STK-MED ONCE IV ; Start 03/24/17 at 09:21; Stop 03/24/17 at 09:22; Status DC Midazolam HCl (Versed Inj) 2 mg STK-MED ONCE .ROUTE ; Start 03/24/17 at 09:21; Stop 03/24/17 at 09:22; Status DC Fentanyl Citrate (fentaNYL INJ) 100 mcg STK-MED ONCE .ROUTE ; Start 03/24/17 at 09:21; Stop 03/24/17 at 09:22; Status DC Fentanyl Citrate (fentaNYL INJ) 100 mcg STK-MED ONCE .ROUTE ; Start 03/24/17 at 09:21; Stop 03/24/17 at 09:22; Status DC Hydromorphone HCl (*DILAUDID PF INJ PERIprocedural ONLY) 1 mg STK-MED ONCE .ROUTE Last administered on 03/24/17 14:53; Start 03/24/17 at 14:53; Stop at 14:54; Status DC Meperidine HCl (*DEMEROL INJ PERIprocedural ONLY) 25 mg STK-MED ONCE .ROUTE Last administered on 03/24/17 15:01; Start 03/24/17 at 15:01; Stop 03/24/17 at 15:02; Status DC Fentanyl Citrate (fentaNYL INJ) 400 mcg STK-MED ONCE .ROUTE ; Start 03/24/17 at 15:01; Stop 03/24/17 at 15:02; Status DC Miscellaneous Information ALL NURSING DEPARTME... UNSCH PRN .XX SEE LABEL COMMENTS; Start 03/24/17 at 14:52; Stop 03/25/17 at 14:51; Status DC Polyethylene Glycol (Miralax) 17 gm DAILY PO ; Start 03/24/17 at 16:30; Status Cancel Acetaminophen (Tylenol) 650 mg Q4H PRN PO fever Last administered on 03/25/17 10:02; Start 03/25/17 at 10:00 Piperacillin Sod/ Tazobactam Sod 100 ml @ 200 mls/hr Q8H IV Last administered on 03/29/17 12:36; Start 03/25/17 at 20:00; Stop 03/29/17 at 14:34; Status DC Furosemide (Lasix Inj) 10 mg ONCE ONCE IV PUSH Last administered on 03/26/17 13:47; Start 03/26/17 at 13:30; Stop 03/26/17 at 13:34; Status DC Furosemide (Lasix Inj) 10 mg UNSCH X1 IV PUSH Last administered on 03/27/17 01 :31; Start 03/26/17 at 17:15; Stop 03/26/17 at 23:59; Status DC Levothyroxine Sodium (Synthroid) 50 mcg DAILY@0600 PO Last administered on 05:03; Start 03/30/17 at 06:00 Levothyroxine Sodium (Synthroid) 50 mcg ONCE ONCE PO Last administered on 12:55; Start 03/29/17 at 12:00; Stop 03/29/17 at 12:02; Status DC Levofloxacin (Levaquin) 500 mg DAILY PO Last administered on 04/03/17 09:17; Start 03/29/17 at 14:45; Stop 04/07/17 at 14:44 Propofol (Diprivan 200 Mg/20 ml Inj) 200 mg STK-MED ONCE IV ; Start 02/26/17 at 12:00; Stop 03/30/17 at 13:17; Status DC Neostigmine Methylsulfate (Prostigmin Inj) 3 mg STK-MED ONCE IV ; Start 02/26/17 at 12:00; Stop 03/30/17 at 13:17; Status DC Phenylephrine HCl (Neosynephrine/ NS 1000 Mcg/10ml Syr) 1,000 mcg STK-MED ONCE IV ; Start 02/26/17 at 12:00; Stop 03/30/17 at 13:17; Status DC Lactated Ringer's 2,000 ml @ As Directed STK-MED ONCE IV ; Start 02/26/17 at 12: 00; Stop 03/30/17 at 13:17; Status DC Propofol (Diprivan 200 Mg/20 ml Inj) 200 mg STK-MED ONCE IV ; Start 02/28/17 at 12:00; Stop 03/30/17 at 13:46; Status DC Neostigmine Methylsulfate (Prostigmin Inj) 3 mg STK-MED ONCE IV ; Start 02/28/17 at 12:00; Stop 03/30/17 at 13:46; Status DC Lactated Ringer's 2,000 ml @ As Directed STK-MED ONCE IV ; Start 02/28/17 at 12: 00; Stop 03/30/17 at 13:46; Status DC Propofol (Diprivan 200 Mg/20 ml Inj) 400 mg STK-MED ONCE IV ; Start 03/04/17 at 12:00; Stop 03/30/17 at 14:07; Status DC Ephedrine Sulfate (ePHEDrine/NS 25 MG/5 ML SYR) 25 mg STK-MED ONCE IV ; Start at 12:00; Stop 03/30/17 at 14:07; Status DC Phenylephrine HCl (Neosynephrine/ NS 1000 Mcg/10ml Syr) 2,000 mcg STK-MED ONCE IV ; Start 03/04/17 at 12:00; Stop 03/30/17 at 14:08; Status DC Ondansetron HCl (Zofran Inj) 4 mg STK-MED ONCE IV PUSH ; Start 03/04/17 at 12:00 ; Stop 03/30/17 at 14:08; Status DC Propofol (Diprivan 200 Mg/20 ml Inj) 200 mg STK-MED ONCE IV ; Start 03/08/17 at 12:00; Stop 03/30/17 at 14:49; Status DC Ephedrine Sulfate (ePHEDrine/NS 25 MG/5 ML SYR) 50 mg STK-MED ONCE IV ; Start at 12:00; Stop 03/30/17 at 14:49; Status DC Neostigmine Methylsulfate (Prostigmin Inj) 4 mg STK-MED ONCE IV ; Start at 12:00; Stop 03/30/17 at 14:49; Status DC Phenylephrine HCl (Neosynephrine/ NS 1000 Mcg/10ml Syr) 1,000 mcg STK-MED ONCE IV ; Start 03/08/17 at 12:00; Stop 03/30/17 at 14:49; Status DC Ondansetron HCl (Zofran Inj) 4 mg STK-MED ONCE IV PUSH ; Start 03/08/17 at 12:00 ; Stop 03/30/17 at 14:49; Status DC Lactated Ringer's 1,000 ml @ As Directed STK-MED ONCE IV ; Start 03/08/17 at 12 :00; Stop 03/30/17 at 14:49; Status DC Propofol (Diprivan 200 Mg/20 ml Inj) 200 mg STK-MED ONCE IV ; Start 03/10/17 at 12:00; Stop 03/30/17 at 15:08; Status DC Ephedrine Sulfate (ePHEDrine/NS 25 MG/5 ML SYR) 25 mg STK-MED ONCE IV ; Start at 12:00; Stop 03/30/17 at 15:08; Status DC Neostigmine Methylsulfate (Prostigmin Inj) 3 mg STK-MED ONCE IV ; Start at 12:00; Stop 03/30/17 at 15:08; Status DC Phenylephrine HCl (Neosynephrine/ NS 1000 Mcg/10ml Syr) 2,000 mcg STK-MED ONCE IV ; Start 03/10/17 at 12:00; Stop 03/30/17 at 15:08; Status DC Ondansetron HCl (Zofran Inj) 4 mg STK-MED ONCE IV PUSH ; Start 03/10/17 at 12:00 ; Stop 03/30/17 at 15:08; Status DC Lactated Ringer's 1,000 ml @ As Directed STK-MED ONCE IV ; Start 03/10/17 at 12 :00; Stop 03/30/17 at 15:08; Status DC Sodium Chloride 1,000 ml @ As Directed STK-MED ONCE IV ; Start 03/10/17 at 12: 00; Stop 03/30/17 at 15:08; Status DC Propofol (Diprivan 200 Mg/20 ml Inj) 200 mg STK-MED ONCE IV ; Start 03/12/17 at 12:00; Stop 03/30/17 at 15:20; Status DC Ephedrine Sulfate (ePHEDrine/NS 25 MG/5 ML SYR) 25 mg STK-MED ONCE IV ; Start at 12:00; Stop 03/30/17 at 15:20; Status DC Phenylephrine HCl (Neosynephrine/ NS 1000 Mcg/10ml Syr) 1,000 mcg STK-MED ONCE IV ; Start 03/12/17 at 12:00; Stop 03/30/17 at 15:20; Status DC Ondansetron HCl (Zofran Inj) 4 mg STK-MED ONCE IV PUSH ; Start 03/12/17 at 12:00 ; Stop 03/30/17 at 15:20; Status DC Lactated Ringer's 1,000 ml @ As Directed STK-MED ONCE IV ; Start 03/12/17 at 12 :00; Stop 03/30/17 at 15:20; Status DC Propofol (Diprivan 200 Mg/20 ml Inj) 200 mg STK-MED ONCE IV ; Start 03/18/17 at 12:00; Stop 03/30/17 at 15:38; Status DC Ondansetron HCl (Zofran Inj) 4 mg STK-MED ONCE IV PUSH ; Start 03/18/17 at 12:00 ; Stop 03/30/17 at 15:38; Status DC Neostigmine Methylsulfate (Prostigmin Inj) 3 mg STK-MED ONCE IV ; Start at 12:00; Stop 03/30/17 at 15:38; Status DC Phenylephrine HCl (Neosynephrine/ NS 1000 Mcg/10ml Syr) 1,000 mcg STK-MED ONCE IV ; Start 03/18/17 at 12:00; Stop 03/30/17 at 15:38; Status DC Oxycodone/ Acetaminophen (Percocet 5-325 Mg) 1 tab Q4H PRN PO pain 3 to 5; Start 04/02/17 at 13:00 Oxycodone/ Acetaminophen (Percocet 10-325 Mg) 1 tab Q4H PRN PO pain 6-10 Last administered on 04/03/17t 09:17; Start 04/02/17 at 13:00 Urinary Catheter: Yes Assessment to: Continue A/P Problem List: (1) Sepsis ICD Code: A41.9 - Sepsis, unspecified organism Status: Acute (2) Right foot infection ICD Code: L08.9 - Local infection of the skin and subcutaneous tissue, unspecified Status: Acute (3) Encephalopathy ICD Code: G93.40 - Encephalopathy, unspecified Status: Acute (4) Alcoholism ICD Code: F10.20 - Alcohol dependence, uncomplicated Status: Chronic (5) Hypothyroidism ICD Code: E03.9 - Hypothyroidism, unspecified Assessment and Plan 61-year-old male admitted secondary to numerous infections including bilateral hands and right ankle. Previous history of right ankle. Patient also had encephalopathy secondary to infection and alcohol withdrawal time of admit. Encephalopathy has improved. Continued treatments of infections are ongoing. Status post I&D of right elbow. Continue wound care. Robaxin started for muscle spasms. 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 distant showering of emboli to other joints. MRSA bacteremia Right ankle hardware infection, s/p partial removal of hardware. Deeper hardware embedded. SP RIGHT BKA Bilateral UE hand abscess and tenosynovitis, septic arthritis s.p multiple debridements. Recent fever on 03/25 (resolved) CXR showed possible b/l infiltrate but no clinical respiratory symptoms, UTI with + UA , lactic acidosis (improved), on zosyn with dapto Antibiotic per ID Plan for long-term IV antibiotics, rifampin for 6 weeks Likely will need longterm facility placement Continue oxycodone and Dilaudid for pain May still need further surgical intervention Hand surgeon following Podiatry following ID following Multiple surgeries thus far: - podiatry Dr. Reyes/Dr. Gamez on 02/26, 02/28, 03/04 - hand surgeon Dr. Bullock on 02/26, 02/28, 03/04, 03/08, 03/10 Anemia Most recent hemoglobin is 8.0 Follow CBC Status post blood transfusion Acute Toxic/Metabolic Encephalopathy secondary to Sepsis Acute Alcohol Withdrawal Resolved Hypernatremia Resolved Hypokalemia Replace as needed Continue to monitor Hypertension Continue clonidine and Coreg, cardiology initiate low dose lisinopril, monitor renal function Follow blood pressures Adjust as needed for control Mild Systolic CHF Scrotal edema EF of 40-45% with global hypokinesis found on 02/28/17 Continue beta amarjit Following BMP, consider initiating diuresis, (patient recently had fever and lactic acidosis) HYPOTHYROIDISM START SYNTHROID 50MCG DAILY THADDEUS possibly vanco induced Monitor renal function Avoid nephrotoxins Previous event was likely secondary to ATN Nephrology following Urinary retention Monitor urine output Hepatitis C Standard precautions Dysphagia: Improved patient on regular diet Dietitian to assess tapering tube feed DVT Prophylaxis Lovenox AM LABS CONTINUE CURRENT CARE DC PEG CONSULT GI TO REMOVE?- PEG OUT 9-7 pain control add oral meds HYPOMAG- REPLACE BY PROTOCOLS PT AND OT TO EVAL AND SIMI Problem Qualifiers (1) Sepsis: Isaac Pink DO Apr 03, 2017 12:16
[2017-04-03] MEDS: MAGNESIUM SULFATE 1 GM PREMIX 100 ML IV SCH ×2 (13:54→16:15)
[2017-04-03] MEDS: SODIUM CHLORIDE 0.9% IV SCH (13:54)
[2017-04-03] MEDS: DAPTOMYCIN IV SCH (13:54)
[2017-04-03] MEDS: ENOXAPARIN SODIUM 40 MG/0.4 ML SYRINGE SQ SCH (13:55)
--- NOTE | 2017-04-03 14:37 | PD.CAR.PN ---
CVT Progress Note Subjective/Hospital Course: Referral received Full consult VERONICA Lee Martinez 03/24/17 Discussed care with the patient today As noted in the consultation this patient has no chance of recovering without amputation and infection and systemic symptoms will persist. Patient is unable to use the leg which keeps him bedridden and dysfunctional. Patient will discussed the care with his father today and he is tentatively planned for surgery tomorrow 03/25/17 Status post right below-knee amputation Incision is clean and dry Dressing is intact We will leave the dressing on until Wednesday04/03/17 Status post BKA Incisions clean and dry Stitches are in place and stump is well perfused We will leave the stitches in for about 3 weeks total in the face of delayed healing Nothing to add to care at this time Objective: Vital Signs Date Time Temp Pulse Resp B/P (MAP) Pulse Ox O2 Delivery O2 Flow Rate FiO2 04/03/17 12:00 96.9 72 18 145/75 (98) 97 04/03/17 09:20 Room Air 04/03/17 09:07 97.8 65 16 123/77 (92) 96 04/03/17 05:43 18 04/03/17 04:00 98.3 67 16 117/71 (86) 98 04/03/17 00:00 98.5 70 16 128/61 (83) 97 04/02/17 22:42 18 04/02/17 21:30 98 Room Air 04/02/17 20:00 98.5 70 18 132/70 (90) 97 04/02/17 16:09 98 Room Air 04/02/17 15:49 96.7 66 19 138/78 (98) 98 Result Diagram: 04/01/1736 04/01/1736 (1) CHF (congestive heart failure) (2) Cardiomyopathy (3) ARF (acute renal failure) (4) Alcoholism (5) Tobacco use disorder (6) Sepsis Problem Qualifiers (1) Sepsis: Nazario Ruth MD Apr 03, 2017 14:37
[2017-04-03 15:30] VITALS: BP 119/74; PULSE 70; RESP 18; TEMP 98.3; O2SAT 97
[2017-04-03 20:00] VITALS: BP 131/71; PULSE 70; RESP 16; TEMP 98.3; O2SAT 97
[2017-04-04] VITALS: BP 117/62; PULSE 80; RESP 18; TEMP 98.2; O2SAT 99
[2017-04-04] MEDS: HYDROmorphone HCL PF 1 MG/ML VIAL IV PUSH PRN ×5 (02:40→21:16)
[2017-04-04 04:00] VITALS: BP 125/78; PULSE 82; RESP 18; TEMP 98.1; O2SAT 96
[2017-04-04] MEDS: oxyCODONE/ACETAMINOPHEN 10 MG/325 MG TAB PO PRN ×4 (04:23→20:11)
[2017-04-04] MEDS: NS + KCL 20 MEQ INJ 1,000 ML IV SCH ×3 (04:28→21:16)
[2017-04-04] MEDS: cloNIDine HCL 0.3 MG TAB PO SCH ×3 (06:09→21:19)
[2017-04-04] MEDS: METHOCARBAMOL 500 MG TAB PO SCH ×3 (06:10→20:11)
[2017-04-04] MEDS: LEVOTHYROXINE SODIUM 50 MCG TAB PO SCH (06:10)
[2017-04-04 08:04] VITALS: BP 116/78; PULSE 76; RESP 19; TEMP 97; O2SAT 96
[2017-04-04] MEDS: THIAMINE HCL 100 MG TAB PO SCH (09:22)
[2017-04-04] MEDS: MULTIVITAMIN TAB PO SCH (09:22)
[2017-04-04] MEDS: CARVEDILOL 6.25 MG TAB PO SCH ×2 (09:22→20:11)
[2017-04-04] MEDS: LEVOFLOXACIN 500 MG TAB PO SCH (09:22)
[2017-04-04] MEDS: LISINOPRIL 5 MG TAB PO SCH (09:23)
[2017-04-04] MEDS: MUPIROCIN 2% OINT 1 APPLIC/GM SYR NASAL SCH ×2 (09:28→20:10)
[2017-04-04 09:34] LABS: AUTOMATED NEUTROPHIL # 6.1 TH/MM3 (1.8-7.7); BASOPHIL # 0.1 TH/MM3 (0-0.2); BASOPHIL % 0.9 % (0.0-2.0); EOSINOPHIL # 0.3 TH/MM3 (0-0.4); EOSINOPHIL % 3.4 % (0.0-4.0); HEMATOCRIT 27.2 % (39.0-51.0); HEMO FLAGS DIFF FINAL; LYMPH % 14.2 % (9.0-44.0); LYMPHOCYTE # 1.2 TH/MM3 (1.0-4.8); MEAN CELL VOLUME 88.7 FL (80.0-100.0); MEAN CORPUSCULAR HEMOGLOBIN 29.6 PG (27.0-34.0); MEAN CORPUSCULAR HGB CONC 33.4 % (32.0-36.0); MONO % 7.9 % (0.0-8.0); NEUT % 73.6 % (16.0-70.0); PLATELET COUNT 272 TH/MM3 (150-450); RED BLOOD COUNT 3.07 MIL/MM3 (4.50-5.90); RED CELL DISTRIBUTION WIDTH 17.4 % (11.6-17.2); WHITE BLOOD COUNT 8.3 TH/MM3 (4.0-11.0)
[2017-04-04 10:26] LABS: ALKALINE PHOSPHATASE 87 U/L (45-117); ALT (GPT) 21 U/L (12-78); ANION GAP 9 MEQ/L (5-15); AST (GOT) 20 U/L (15-37); BICARBONATE 20.8 MEQ/L (21.0-32.0); BLOOD UREA NITROGEN 11 MG/DL (7-18); CHLORIDE 92 MEQ/L (98-107); GLOMERULAR FILTRATION RATE 134 ML/MIN (>89); MAGNESIUM 1.6 MG/DL (1.5-2.5); POTASSIUM 4.2 MEQ/L (3.5-5.1); TOTAL BILIRUBIN ADULT 0.2 MG/DL (0.2-1.0)
[2017-04-04 10:47] LABS: SODIUM (NA) 122 MEQ/L (136-145)
[2017-04-04 12:04] VITALS: BP 128/77; PULSE 74; RESP 19; TEMP 97; O2SAT 97
[2017-04-04] MEDS: ENOXAPARIN SODIUM 40 MG/0.4 ML SYRINGE SQ SCH (13:11)
[2017-04-04] MEDS: DAPTOMYCIN IV SCH (13:11)
[2017-04-04] MEDS: SODIUM CHLORIDE 0.9% IV SCH (13:11)
--- NOTE | 2017-04-04 13:58 | HHI.PR ---
Subjective Remarks Follow up on MRSA endocarditis sepsis and bacteremia, right ankle hardware infection, bilateral upper extremity hand abscess and Pricila synovitis septic arthritis, catheter associated UTI acute renal failure hypertension alcoholism patient Is doing okay today, oral diet resumed after he past speech, consider tapering to proceed if dietitian agreed 03-28 NO NEW COMPLAINTS CONTINUE ANTIBIOTICS AND WOUND CARE DW RN AND PATIENT 03-29 RIGHT BKA DRESSED NO NEW COMPLAINTS NO SOB, NO CHEST PAIN HYPOTHYROID- START SYNTHROID 50MCG 03-30 NO NEW COMPLAINTS HAS CHRONIC BACK PAIN NO SOB, NO CHEST PAIN DW RN AND PATIENT CONTINUE ANTIBIOTICS 03-31 CONSULT GI REGARDING PEG REMOVAL AM LABS CHRONIC PAIN NO SOB, NO CHEST PAIN CONTINUE ON ANTIBIOTICS 04-01 HAD PEG TUBE REMOVED BY GI NO SOB, NO CHEST PAIN DW RN AND PT 04-02 complains of pain needs oral meds 04-03 PT AND OT TO EVAL AND TREAT PAIN BETTER CONTROLLED NO NEW COMPLAINTS TODAY DW PT AND RN 04-04 HYPONATREMIA AND HYPOCALCEMIA WILL REPLACE NO NEW COMPLAINTS DW RN AND PT Objective Vitals Vital Signs Date Time Temp Pulse Resp B/P (MAP) Pulse Ox O2 Delivery O2 Flow Rate FiO2 04/04/17 12:04 97.0 74 19 128/77 (94) 97 04/04/17 11:27 Room Air 21 04/04/17 08:04 97.0 76 19 116/78 (91) 96 04/04/17 04:00 98.1 82 18 125/78 (94) 96 04/04/17 04:00 Room Air 04/04/17 00:00 98.2 80 18 117/62 (80) 99 04/04/17 00:00 Room Air 04/03/17 20:00 Room Air 04/03/17 20:00 98.3 70 16 131/71 (91) 97 04/03/17 15:30 98.3 70 18 119/74 (89) 97 I/O 04/03/17 04/03/17 04/03/17 04/04/17 04/04/17 04/04/17 06:59 14:59 22:59 06:59 14:59 22:59 Intake Total 510 ml 100 ml 1621 ml 800 ml Output Total 1770 ml 950 ml 2300 ml Balance -1260 ml 100 ml 671 ml -1500 ml Intake Oral 840 ml IV Total 510 ml 100 ml 781 ml 800 ml Output Urine Total 1770 ml 950 ml 2300 ml # Bowel Movements 1 Result Diagram: 04/04/17 0920 04/04/17 0920 Other Results Laboratory Tests Test 04/04/17 09:20 White Blood Count 8.3 TH/MM3 Red Blood Count 3.07 MIL/MM3 Hemoglobin 9.1 GM/DL Hematocrit 27.2 % Mean Corpuscular Volume 88.7 FL Mean Corpuscular Hemoglobin 29.6 PG Mean Corpuscular Hemoglobin Concent 33.4 % Red Cell Distribution Width 17.4 % Platelet Count 272 TH/MM3 Mean Platelet Volume 8.4 FL Neutrophils (%) (Auto) 73.6 % Lymphocytes (%) (Auto) 14.2 % Monocytes (%) (Auto) 7.9 % Eosinophils (%) (Auto) 3.4 % Basophils (%) (Auto) 0.9 % Neutrophils # (Auto) 6.1 TH/MM3 Lymphocytes # (Auto) 1.2 TH/MM3 Monocytes # (Auto) 0.7 TH/MM3 Eosinophils # (Auto) 0.3 TH/MM3 Basophils # (Auto) 0.1 TH/MM3 CBC Comment DIFF FINAL Differential Comment Blood Urea Nitrogen 11 MG/DL Creatinine 0.61 MG/DL Random Glucose 118 MG/DL Total Protein 5.4 GM/DL Albumin 1.2 GM/DL Calcium Level 7.8 MG/DL Phosphorus Level 2.5 MG/DL Magnesium Level 1.6 MG/DL Alkaline Phosphatase 87 U/L Aspartate Amino Transf (AST/SGOT) 20 U/L Alanine Aminotransferase (ALT/SGPT) 21 U/L Total Bilirubin 0.2 MG/DL Sodium Level 122 MEQ/L Potassium Level 4.2 MEQ/L Chloride Level 92 MEQ/L Carbon Dioxide Level 20.8 MEQ/L Anion Gap 9 MEQ/L Estimat Glomerular Filtration Rate 134 ML/MIN Imaging Last Impressions Chest X-Ray 03/29/17 0000 Signed Impressions: Service Date/Time: Wednesday, March 29, 2017 12:17 - CONCLUSION: Stable chest. Isaac Stevenson MD FACR Tumor Localization 03/22/17 0000 Signed Impressions: Service Date/Time: Wednesday, March 22, 2017 13:03 - CONCLUSION: Nondiagnostic examination secondary to patient refusal Harry Lucio MD Abdomen X-Ray 03/08/17 0000 Signed Impressions: Service Date/Time: Wednesday, March 08, 2017 10:30 - CONCLUSION: Nonspecific, negative for obstruction or ileus. Isaac Stevenson MD FACR Lower Extremity CT 03/01/17 0000 Signed Impressions: Service Date/Time: Wednesday, March 01, 2017 11:12 - CONCLUSION: 1. No evidence of organized fluid collections to suggest an abscess. 2. Extensive soft tissue swelling surrounding the ankle and extending to the forefoot especially along the lateral aspect. 3. No erosive or destructive bone changes. 4. Bone defects compatible with previous excision device. Blake Rider MD Ankle X-Ray 02/26/17 0000 Signed Impressions: Service Date/Time: Sunday, February 26, 2017 17:15 - CONCLUSION: I see no retained surgical instruments. Isaac Stevenson MD FACR Upper Extremity Ultrasound 02/25/17 1734 Signed Impressions: Service Date/Time: February 17:54 - CONCLUSION: There is a thin fluid collection within the focal area of soft tissue swelling 2nd digit. Oscar Cassidy MD Hand X-Ray 02/25/17 0000 Signed Impressions: Service Date/Time: February 18:59 - CONCLUSION: No gross bony abnormality. Oscar Cassidy MD Lower Extremity Ultrasound 02/24/17 0000 Signed Impressions: Service Date/Time: Friday, February 24, 2017 13:41 - CONCLUSION: Negative for deep venous thrombosis. Isaac Stevenson MD FACR Head CT 02/24/17 0000 Signed Impressions: Service Date/Time: Friday, February 24, 2017 16:08 - CONCLUSION: 1. No acute intracranial abnormality. 2. Probable large mucocele in the sphenoid sinus. Ty Hankins MD Abdomen/Pelvis CT 02/24/17 0000 Signed Impressions: Service Date/Time: Friday, February 24, 2017 16:16 - CONCLUSION: 1. Marked gaseous distension of large and small bowel most suggestive of ileus. 2. There is no free air. 3. 2.2 cm left adrenal mass. 4. Distended bladder. Isaac Stevenson MD FACR Objective Remarks GENERAL: This is a well-nourished, well-developed patient, in no apparent distress. SKIN: No rashes, warm and dry HEAD: Atraumatic. Normocephalic. EYES: Pupils equal round and reactive. Extraocular motions intact. No scleral icterus. TONGUE MIDLINE- ORAL MUCOSA MOIST ENT: Nose without bleeding, or drainage, Airway patent. NECK: Trachea midline. Supple CARDIOVASCULAR: Regular rate and rhythm without murmurs, gallops, or rubs. S1, S2 NO S3 OR S4 NO HEAVE RESPIRATORY: Fair air entry bilaterally. No wheezes, rales, or rhonchi. GASTROINTESTINAL: Abdomen soft, non-tender, nondistended. Positive bowel sounds PEG IS GONE NOW GROIN SWOLLEN SCROTAL AREA-ELEVATED WITH BATH TOWEL- SANCHEZ IN PLACE MUSCULOSKELETAL:No cyanosis, or edema. Right and left arms are bandaged home right arm in lifting sling. Right LE IS BANDAGED HAS RIGHT BKA NEUROLOGICAL: Awake and alert. Moves all extremity. Normal speech.no focal neurological deficit : Scrotum swelling Procedures 03/10/2017 - Dr. Bullock exploration, wash, excisional debridement extensor tenosynovium right wrist/forearm/hand 03/08/17 - Dr. Bullock- exploration, wash, excisional debridement skin, subcutaneous tissue, extensor tenosynovitis right wrist and hand. Findings: necrotic tissue, minimal purulence, extensor tenosynovitis right wrist/hand 03/04/17 - Dr Gamez - Right leg and incision and drainage. Right foot delayed primary closure x3 03/04/17 - Dr. Bullock - Extensor tenosynovectomy second, third, fourth extensor compartments right wrist and excisional debridement wash index finger metacarpal phalangeal joint, excisional wash and excisional debridement left hand. 02/28/17 - Dr. Reyes - Right ankle wound debridement and washout. Implantation of antibiotic vancomycin beads. 02/28/17 - Dr. Bullock - Exploration, wash, excisional debridement index finger metacarpophalangeal joint right hand; Exploration, wash, excisional debridement metacarpophalangeal joint left index finger; Exploration, wash, excisional debridement extensor pollicis longus tendon right thumb and hand. 02/26/17 - Dr. Reyes - Right ankle incision and drainage, arthrotomy, removal infected hardware, bone biopsy. 02/26/17 - Dr. Bullock - Exploration, incision and drainage right hand abscess, Arthrotomy wash metacarpal phalangeal joint right index finger, Arthrotomy wash metacarpal phalangeal joint left index finger. Medications and IVs Current Medications Sodium Chloride 1,000 ml @ 999 mls/hr BOLUS ONCE IV Last administered on 13:38; Start 02/24/17 at 13:45; Stop 02/24/17 at 14:45; Status DC IV Flush (NS Flush) 2 ml UNSCH PRN IV FLUSH FLUSH AFTER USING IV ACCESS Last administered on 02/24/17 13:38; Start 02/24/17 at 13:45 Vancomycin HCl 1000 mg/Sodium Chloride 250 ml @ 250 mls/hr ONCE STAT IV Last administered on 02/24/17 15:49; Start 02/24/17 at 15:35; Stop 02/24/17 at 16:34; Status DC Cefepime HCl 2000 mg/Sodium Chloride 100 ml @ 200 mls/hr ONCE STAT IV Last administered on 02/24/17 16:36; Start 02/24/17 at 15:35; Stop 02/24/17 at 16:04; Status DC Potassium Bicarb/ Potassium Chloride (K-Lyte Cl Eff) 50 meq ONCE ONCE PO Last administered on 02/24/17 15:56; Start 02/24/17 at 16:00; Stop 02/24/17 at 16: 01; Status DC Iohexol (Omnipaque 350 Inj) 97 ml STK-MED ONCE IV Last administered on 16:29; Start 02/24/17 at 16:29; Stop 02/24/17 at 16:30; Status DC Sodium Chloride 1,000 ml @ 125 mls/hr Q8H IV Last administered on 03/02/17 09: 33; Start 02/24/17 at 18:00; Stop 03/02/17 at 13:08; Status DC Ondansetron HCl (Zofran Inj) 4 mg Q8HR PRN IV PUSH NAUSEA; Start 02/24/17 at 18: 00 Thiamine HCl (Vitamin B1) 100 mg ONCE ONCE PO Last administered on 02/24/17 20 :20; Start 02/24/17 at 20:15; Stop 02/24/17 at 20:16; Status DC Thiamine HCl (Vitamin B1) 100 mg DAILY PO Last administered on 04/04/17 09:22 ; Start 02/25/17 at 09:00 Potassium Chloride 100 ml @ 50 mls/hr Q2H IV Last administered on 02/24/17 22: 59; Start 02/24/17 at 20:30; Stop 02/25/17 at 00:29; Status DC Pharmacy Profile Note 0 ml @ 0 mls/hr UNSCH OTHER ; Start 02/24/17 at 20:15; Stop 03/02/17 at 13:23; Status DC Cefepime HCl 2000 mg/Sodium Chloride 100 ml @ 200 mls/hr Q12H IV Last administered on 02/27/17 05:51; Start 02/25/17 at 07:00; Stop 02/27/17 at 14:53; Status DC Vancomycin HCl 1500 mg/Sodium Chloride 515 ml @ 257.5 mls/ hr Q18H IV Last administered on 02/25/17 10:30; Start 02/25/17 at 10:00; Stop 02/25/17 at 11:30; Status DC Miscellaneous Information SPECIFIC LAB TO BE DRAWN:VANCO TROUGH DATE TO BE DR... ONCE ONCE .XX ; Start 02/26/17 at 21:45; Stop 02/26/17 at 21:46; Status DC Flumazenil (Romazicon Inj) 0.2 mg Q1M PRN IV PUSH SEE LABEL COMMENTS; Start 02/25/17 at 09:15 Lorazepam (Ativan) 1 mg Q4H PRN PO agitation Last administered on 03/20/17 03: 18; Start 02/25/17 at 09:15 Lorazepam (Ativan Inj) 1 mg Q4H PRN IV PUSH agitation when not taking po Last administered on 03/05/17 02:41; Start 02/25/17 at 09:15 Lorazepam (Ativan) 2 mg Q2H PRN PO CIWA 11-14; Start 02/25/17 at 09:15; Stop 02/28/17 at 07:44; Status DC Lorazepam (Ativan Inj) 2 mg Q2H PRN IV PUSH CIWA 11-14 Last administered on 02/26 18:14; Start 02/25/17 at 09:15; Stop 02/28/17 at 07:44; Status DC Lorazepam (Ativan Inj) 2 mg Q1H PRN IV PUSH CIWA 15-20 Last administered on 02/25 21:37; Start 02/25/17 at 09:15; Stop 02/28/17 at 07:44; Status DC Lorazepam (Ativan Inj) 2 mg Q15M PRN IV PUSH CIWA > 20 Last administered on 02/26 06:25; Start 02/25/17 at 09:15; Stop 02/28/17 at 07:44; Status DC Multivitamins (Theragran) 1 tab DAILY PO Last administered on 04/04/17 09:22; Start 02/26/17 at 09:00 Acetaminophen (Tylenol) 650 mg Q4H PRN PO FEVER Last administered on 03/07/17 04:47; Start 02/25/17 at 09:15; Stop 03/12/17 at 10:47; Status DC Lisinopril (Prinivil) 10 mg DAILY PO ; Start 02/26/17 at 09:00; Stop 03/08/17 at 21:09; Status DC Enoxaparin Sodium (Lovenox Inj) 40 mg Q24H SQ Last administered on 03/07/17 10 :00; Start 02/25/17 at 10:00; Stop 03/10/17 at 12:17; Status DC Vancomycin HCl 1500 mg/Sodium Chloride 515 ml @ 257.5 mls/ hr Q12H IV Last administered on 02/26/17 09:42; Start 02/25/17 at 22:00; Stop 02/26/17 at 12:06; Status DC Miscellaneous Information SPECIFIC LAB TO BE ... ONCE ONCE .XX Last administered on 02/26/17 09:45; Start 02/26/17 at 09:45; Stop 02/26/17 at 09:46; Status DC Chlordiazepoxide (Librium) 25 mg Q8H PO ; Start 02/25/17 at 17:00; Stop 02/25/17 at 20:24; Status DC Gentamicin Sulfate 70 mg/ Sodium Chloride 101.75 ml @ 100 mls/ hr ONCE ONCE IV Last administered on 02/25/17 18:51; Start 02/25/17 at 18:30; Stop 02/25/17 at 19:31; Status DC Dexmedetomidine HCl 200 mcg/ Sodium Chloride 52 ml @ 0 mls/hr TITRATE IV Last administered on 02/27/17 13:55; Start 02/25/17 at 17:30; Stop 03/09/17 at 23:34; Status DC Acetaminophen (Ofirmev Inj) 650 mg Q6H PRN IV TEMP >101 Last administered on 20:12; Start 02/25/17 at 21:00 Iohexol (Omnipaque 350 Inj) 75 ml STK-MED ONCE IV Last administered on 21:15; Start 02/25/17 at 21:15; Stop 02/25/17 at 21:16; Status DC Potassium Chloride 100 ml @ 50 mls/hr Q2H PRN IV For Potassium 2.8 - 3.2 mEq/L ; Start 02/25/17 at 22:45; Stop 03/01/17 at 23:53; Status DC Potassium Chloride 100 ml @ 50 mls/hr Q2H PRN IV For Potassium 2.8 - 3.2 mEq/ L Last administered on 02/28/17 12:32; Start 02/25/17 at 22:45; Stop 03/01/17 at 23:53; Status DC Potassium Bicarb/ Potassium Chloride (K-Lyte Cl Eff) 50 meq UNSCH PRN PO For Potassium 3.3 - 3.5 mEq/L; Start 02/25/17 at 22:45; Stop 03/01/17 at 23:53; Status DC Potassium Chloride 100 ml @ 25 mls/hr UNSCH PRN IV For Potassium 3.3 - 3.5 mEq /L; Start 02/25/17 at 22:45; Stop 03/01/17 at 23:53; Status DC Potassium Chloride 100 ml @ 50 mls/hr Q2H PRN IV For Potassium 3.3 - 3.5 mEq/ L Last administered on 02/28/17 06:39; Start 02/25/17 at 22:45; Stop 03/01/17 at 23:53; Status DC Magnesium Sulfate 4 gm/Sodium Chloride 100 ml @ 50 mls/hr UNSCH PRN IV For Magnesium 0.9 - 1.1 mg/dL; Start 02/25/17 at 22:45; Stop 03/01/17 at 23:53; Status DC Magnesium Oxide (Mag-Ox) 800 mg UNSCH PRN PO For Magnesium 1.2 - 1.6 mg/dL; Start 02/25/17 at 22:45; Stop 03/01/17 at 23:53; Status DC Magnesium Sulfate 2 gm/Sodium Chloride 100 ml @ 50 mls/hr UNSCH PRN IV For Magnesium 1.2 - 1.6 mg/dL; Start 02/25/17 at 22:45; Stop 03/01/17 at 23:53; Status DC Potassium Phosphate (K-Phos) 2,000 mg Q4H PRN PO For Phosphorus < 2.5 mg/dL; Start 02/25/17 at 22:45; Stop 03/01/17 at 23:53; Status DC Sodium Phosphate 30 mmol/Sodium Chloride 250 ml @ 42 mls/hr UNSCH PRN IV For Phosphorus < 2.5 mg/dL Last administered on 02/26/17 23:19; Start 02/25/17 at 22: 45; Stop 03/01/17 at 23:53; Status DC Potassium Phosphate (K-Phos) 2,000 mg UNSCH PRN PO/TUBE SEE LABEL COMMENTS; Start 02/25/17 at 22:45; Stop 03/01/17 at 23:53; Status DC Potassium Phosphate 30 mmol/ Sodium Chloride 260 ml @ 42 mls/hr UNSCH PRN IV SEE LABEL COMMENTS; Start 02/25/17 at 22:45; Stop 03/01/17 at 23:53; Status DC Labetalol HCl (Trandate Inj) 10 mg Q6H PRN IV PUSH SBP >165; Start 02/25/17 at 23:15 Pantoprazole Sodium (Protonix Inj) 40 mg Q24H IV PUSH Last administered on 22:55; Start 02/26/17 at 00:00 Miscellaneous Information Patient in critical care unit? Ass... [id number] .XX ; Start 02/26/17 at 07:15 Mupirocin (Bactroban Nasal 2% Oint) 1 applic BID NASAL Last administered on 09:28; Start 02/26/17 at 09:00 Chlorhexidine Gluconate (Chlorhexidine 2% Cloth) 3 pack DAILY@04 TOPICAL Last administered on 03/03/17 04:00; Start 02/27/17 at 04:00; Stop 03/03/17 at 04:01; Status DC Chlorhexidine Gluconate (Chlorhexidine 2% Cloth) 3 pack UNSCH PRN TOPICAL HYGIENIC CARE; Start 02/26/17 at 07:15; Stop 03/03/17 at 07:07; Status DC Lidocaine HCl (Xylocaine 2% Inj) 50 ml STK-MED ONCE .ROUTE ; Start 02/26/17 at 09 :35; Stop 02/26/17 at 09:36; Status DC Bupivacaine HCl (Marcaine Pf 0.5% Inj) 60 ml STK-MED ONCE .ROUTE ; Start at 09:35; Stop 02/26/17 at 09:36; Status DC Mupirocin (Bactroban 2% Oint) 22 applic STK-MED ONCE .ROUTE ; Start 02/26/17 at 09:35; Stop 02/26/17 at 09:36; Status DC Vancomycin HCl 1250 mg/Sodium Chloride 262.5 ml @ 250 mls/hr Q12H IV Last administered on 03/02/17 09:33; Start 02/26/17 at 22:00; Stop 03/02/17 at 13:23; Status DC Miscellaneous Information SPECIFIC LAB TO BE BIA... ONCE ONCE .XX Last administered on 02/27/17 22:46; Start 02/27/17 at 21:45; Stop 02/27/17 at 21:46; Status DC Neomycin/Polymyxin (Neosporin G.u. Irr) 3 ml STK-MED ONCE TOPICAL Last administered on 02/26/17 13:06; Start 02/26/17 at 13:06; Stop 02/26/17 at 16:26; Status DC Neomycin/Polymyxin (Neosporin G.u. Irr) 4 ml STK-MED ONCE TOPICAL Last administered on 02/26/17 15:47; Start 02/26/17 at 15:47; Stop 02/26/17 at 16:26; Status DC Fentanyl Citrate (fentaNYL INJ) 250 mcg STK-MED ONCE .ROUTE ; Start 02/26/17 at 18:16; Stop 02/26/17 at 18:17; Status DC Fentanyl Citrate (fentaNYL INJ) 100 mcg STK-MED ONCE .ROUTE ; Start 02/26/17 at 18:16; Stop 02/26/17 at 18:17; Status DC Miscellaneous Information ALL NURSING DEPARTME... UNSCH PRN .XX SEE LABEL COMMENTS; Start 02/26/17 at 17:57; Stop 02/27/17 at 17:56; Status DC Clonidine (Catapres) 0.3 mg Q8HR PO Last administered on 04/04/17 13:12; Start 02/26/17 at 22:11 Diazepam (Valium) 5 mg Taper DAILY PO Last administered on 03/06/17 09:49; Start 02/26/17 at 22:15; Stop 03/06/17 at 22:14; Status DC Water (Free Water) 200 ml Q8HR G-TUBE Last administered on 02/27/17 22:31; Start 02/27/17 at 06:55; Stop 02/28/17 at 07:41; Status DC Rifampin 300 mg/ Sodium Chloride 100 ml @ 100 mls/hr Q12H IV Last administered on 03/02/17 14:41; Start 02/27/17 at 15:00; Stop 03/02/17 at 16:41; Status DC Oxycodone HCl (Roxicodone) 5 mg Q4H PRN PO pain 1-5 Last administered on 09:26; Start 02/28/17 at 07:45 Hydromorphone HCl (Dilaudid Pf Inj) 0.5 mg Q3H PRN IV PUSH pain 6-10 or not taking po Last administered on 04/04/17 13:13; Start 02/28/17 at 07:45 Water (Free Water) 300 ml Q4HR G-TUBE Last administered on 03/02/17 20:00; Start 02/28/17 at 08:00; Stop 03/02/17 at 23:07; Status DC Vancomycin HCl (Vancomycin Inj) 1,000 mg STK-MED ONCE .ROUTE Last administered on 02/28/17 09:01; Start 02/28/17 at 09:01; Stop 02/28/17 at 09:02; Status DC Vancomycin HCl (Vancomycin Inj) 1,000 mg STK-MED ONCE .ROUTE Last administered on 02/28/17 09:33; Start 02/28/17 at 09:33; Stop 02/28/17 at 09:34; Status DC Vancomycin HCl (Vancomycin Inj) 1,000 mg STK-MED ONCE .ROUTE Last administered on 02/28/17 09:36; Start 02/28/17 at 09:33; Stop 02/28/17 at 09:34; Status DC Daptomycin 450 mg/ Sodium Chloride 100 ml @ 200 mls/hr Q24H IV Last administered on 03/05/17 13:41; Start 02/28/17 at 12:00; Stop 03/05/17 at 18:00 ; Status DC Vancomycin HCl (Vancomycin Inj) 1,000 mg STK-MED ONCE .ROUTE Last administered on 02/28/17 10:45; Start 02/28/17 at 10:42; Stop 02/28/17 at 10:43; Status DC Vancomycin HCl (Vancomycin Inj) 500 mg STK-MED ONCE .ROUTE Last administered on 02/28/17 10:45; Start 02/28/17 at 10:42; Stop 02/28/17 at 10:43; Status DC Fentanyl Citrate (fentaNYL INJ) 250 mcg STK-MED ONCE .ROUTE ; Start 02/28/17 at 11:48; Stop 02/28/17 at 11:49; Status DC Miscellaneous Information ALL NURSING DEPARTME... UNSCH PRN .XX SEE LABEL COMMENTS; Start 02/28/17 at 11:33; Stop 03/01/17 at 11:32; Status DC Miscellaneous Information SPECIFIC LAB TO BE BIA... ONCE ONCE .XX ; Start 03/04 at 09:45; Stop 03/04/17 at 09:46; Status Cancel Sodium Chloride 1,000 ml @ 999 mls/hr BOLUS ONCE IV Last administered on 13:28; Start 03/02/17 at 13:15; Stop 03/02/17 at 14:15; Status DC Sodium Chloride 1,000 ml @ 125 mls/hr Q8H IV Last administered on 03/02/17 14: 18; Start 03/02/17 at 13:15; Stop 03/02/17 at 14:30; Status DC Rifampin (Rifampin) 300 mg Q12HR PO Last administered on 03/23/17 08:42; Start 03/02/17 at 21:00; Stop 03/23/17 at 18:40; Status DC Potassium Chloride 20 meq/ Sodium Chloride 38.5 meq/Sterile Water 1,010 ml @ 55 mls/hr [id number] IV Last administered on 03/09/17 22:51; Start 03/03/17 at 11: 00; Stop 03/09/17 at 23:36; Status DC Furosemide (Lasix Inj) 20 mg ONCE ONCE IV PUSH Last administered on 03/03/17 10:19; Start 03/03/17 at 09:30; Stop 03/03/17 at 09:43; Status DC Carvedilol (Coreg) 6.25 mg Q12HR PO Last administered on 04/04/17 09:22; Start 03/03/17 at 21:00 Vancomycin HCl (Vancomycin Inj) 1,000 mg STK-MED ONCE .ROUTE Last administered on 03/04/17 15:52; Start 03/04/17 at 15:10; Stop 03/04/17 at 15:11; Status DC Fentanyl Citrate (fentaNYL INJ) 100 mcg STK-MED ONCE .ROUTE ; Start 03/04/17 at 16:38; Stop 03/04/17 at 16:39; Status DC Fentanyl Citrate (fentaNYL INJ) 250 mcg STK-MED ONCE .ROUTE ; Start 03/04/17 at 16:38; Stop 03/04/17 at 16:39; Status DC Vancomycin HCl (Vancomycin Inj) 1,000 mg STK-MED ONCE .ROUTE Last administered on 03/04/17 16:52; Start 03/04/17 at 16:59; Stop 03/04/17 at 17:00; Status DC Fentanyl Citrate (fentaNYL INJ) 100 mcg STK-MED ONCE .ROUTE ; Start 03/04/17 at 18:24; Stop 03/04/17 at 18:25; Status DC Fentanyl Citrate (fentaNYL INJ) 250 mcg STK-MED ONCE .ROUTE ; Start 03/04/17 at 18:25; Stop 03/04/17 at 18:26; Status DC Miscellaneous Information ALL NURSING DEPARTME... UNSCH PRN .XX SEE LABEL COMMENTS; Start 03/04/17 at 19:15; Stop 03/05/17 at 19:14; Status DC Daptomycin 550 mg/ Sodium Chloride 100 ml @ 200 mls/hr Q24H IV Last administered on 04/04/17 13:11; Start 03/06/17 at 12:00 Bisacodyl (Dulcolax Supp) 10 mg DAILY PRN RECTAL SEVERE CONSITIPATION; Start at 21:00 Lactulose (Lactulose Liq) 30 ml DAILY PRN NG SEVERE CONSITIPATION Last administered on 03/07/17 18:45; Start 03/06/17 at 21:00 Docusate Sodium (Colace Liq) 100 mg Q12HR PO Last administered on 03/09/17 09: 30; Start 03/06/17 at 21:15; Status Future Hold Sodium Chloride 250 ml @ 15 mls/hr ONCE ONCE IV Last administered on 00:27; Start 03/07/17 at 19:00; Stop 03/08/17 at 12:06; Status DC Furosemide (Lasix Inj) 20 mg ONCE ONCE IV Last administered on 03/08/17 03:49 ; Start 03/07/17 at 19:00; Stop 03/07/17 at 19:01; Status DC Polyethylene Glycol/ Electrolytes (Colyte Liq) 4,000 ml ONCE ONCE PO ; Start at 11:00; Stop 03/08/17 at 11:01; Status Cancel Mupirocin (Bactroban 2% Oint) 22 applic STK-MED ONCE .ROUTE ; Start 03/08/17 at 12:10; Stop 03/08/17 at 12:11; Status DC Lidocaine HCl (Xylocaine 2% Inj) 50 ml STK-MED ONCE .ROUTE ; Start 03/08/17 at 12:13; Stop 03/08/17 at 12:14; Status DC Bupivacaine HCl (Marcaine Pf 0.5% Inj) 30 ml STK-MED ONCE .ROUTE ; Start at 12:17; Stop 03/08/17 at 12:18; Status DC Famotidine (Pepcid Inj) 20 mg STK-MED ONCE .ROUTE ; Start 03/08/17 at 13:17; Stop 03/08/17 at 13:18; Status DC Vancomycin HCl (Vancomycin Inj) 1,000 mg STK-MED ONCE .ROUTE Last administered on 03/08/17 14:35; Start 03/08/17 at 14:07; Stop 03/08/17 at 14:08; Status DC Sodium Chloride (Sodium Chloride 0.9% Inj) 20 ml STK-MED ONCE .ROUTE ; Start at 14:07; Stop 03/08/17 at 14:08; Status DC Vancomycin HCl (Vancomycin Inj) 1,000 mg STK-MED ONCE .ROUTE ; Start 03/08/17 at 14:42; Stop 03/08/17 at 14:43; Status DC Sodium Chloride (Sodium Chloride 0.9% Inj) 20 ml STK-MED ONCE .ROUTE ; Start at 14:42; Stop 03/08/17 at 14:43; Status DC Fentanyl Citrate (fentaNYL INJ) 500 mcg STK-MED ONCE .ROUTE ; Start 03/08/17 at 15:51; Stop 03/08/17 at 15:52; Status DC Miscellaneous Information ALL NURSING DEPARTME... UNSCH PRN .XX SEE LABEL COMMENTS; Start 03/08/17 at 15:40; Stop 03/09/17 at 15:39; Status DC Polyethylene Glycol/ Electrolytes (Colyte Liq) 4,000 ml ONCE ONCE NG Last administered on 03/08/17 22:42; Start 03/08/17 at 20:00; Stop 03/08/17 at 20:01 ; Status DC Lisinopril (Prinivil) 2.5 mg DAILY PO Last administered on 04/04/17 09:23; Start 03/09/17 at 09:00 Miscellaneous (Pill Splitter) 1 ea UNSCH PRN OTHER SEE LABEL COMMENTS; Start at 21:15 Dextrose 1,000 ml @ 84 mls/hr [id number] IV Last administered on 03/11/17 21:24 ; Start 03/09/17 at 23:45; Stop 03/11/17 at 23:38; Status DC Enoxaparin Sodium (Lovenox Inj) 40 mg Q24H SQ Last administered on 04/04/17 13 :11; Start 03/10/17 at 13:00; Status Future hold Bupivacaine HCl (Marcaine Pf 0.5% Inj) 30 ml STK-MED ONCE .ROUTE ; Start at 14:50; Stop 03/10/17 at 14:51; Status DC Lidocaine HCl (Xylocaine 2% Inj) 50 ml STK-MED ONCE .ROUTE ; Start 03/10/17 at 14:51; Stop 03/10/17 at 14:52; Status DC Bacitracin (Baciguent Oint) 15 applic STK-MED ONCE .ROUTE Last administered on 03/10/17 16:43; Start 03/10/17 at 14:51; Stop 03/10/17 at 14:52; Status DC Vancomycin HCl (Vancomycin Inj) 1,000 mg STK-MED ONCE .ROUTE Last administered on 03/10/17 15:49; Start 03/10/17 at 15:45; Stop 03/10/17 at 15:46; Status DC Sodium Chloride (Sodium Chloride 0.9% Inj) 20 ml STK-MED ONCE .ROUTE ; Start at 15:45; Stop 03/10/17 at 15:46; Status DC Neomycin/Polymyxin (Neosporin G.u. Irr) 2 ml STK-MED ONCE TOPICAL Last administered on 03/10/17 15:49; Start 03/10/17 at 15:49; Stop 03/10/17 at 15:59 ; Status DC Bacitracin (Baciguent Oint) 30 applic STK-MED ONCE .ROUTE Last administered on 03/10/17 16:44; Start 03/10/17 at 16:41; Stop 03/10/17 at 16:42; Status DC Hydromorphone HCl (Dilaudid Pf Inj) 2 mg STK-MED ONCE .ROUTE ; Start 03/10/17 at 16:47; Stop 03/10/17 at 16:48; Status DC Fentanyl Citrate (fentaNYL INJ) 250 mcg STK-MED ONCE .ROUTE ; Start 03/10/17 at 17:22; Stop 03/10/17 at 17:23; Status DC Morphine Sulfate (*morphine INJ PERIprocedure ONLY) 8 mg STK-MED ONCE .ROUTE Last administered on 03/10/17 18:12; Start 03/10/17 at 18:12; Stop 03/10/17 at 18:13; Status DC Miscellaneous Information ALL NURSING DEPARTME... UNSCH PRN .XX SEE LABEL COMMENTS; Start 03/10/17 at 14:30; Stop 03/11/17 at 14:29; Status DC Propofol (Diprivan 200 Mg/20 ml Inj) 200 mg STK-MED ONCE IV PUSH ; Start at 15:29; Stop 03/11/17 at 15:47; Status DC Oxybenzone/ Padimate O/ Dimethicone (Blistex Lip [place]) 4.25 applic STK-MED ONCE TOPICAL Last administered on 03/11/17 16:02; Start 03/11/17 at 16:02; Stop at 16:03; Status DC Miscellaneous Information ALL NURSING DEPARTME... UNSCH PRN .XX SEE LABEL COMMENTS; Start 03/11/17 at 16:00; Stop 03/12/17 at 15:59; Status DC Succinylcholine Chloride (Quelicin Inj) 200 mg STK-MED ONCE IV PUSH ; Start at 15:27; Stop 03/12/17 at 08:59; Status DC Sodium Chloride 250 ml @ 15 mls/hr ONCE ONCE IV Last administered on 10:15; Start 03/12/17 at 10:15; Stop 03/13/17 at 02:54; Status DC Acetaminophen (Tylenol) 650 mg Q4H PRN PO SEE LABEL COMMENTS; Start 03/12/17 at 10:15; Stop 03/12/17 at 14:16; Status DC Diphenhydramine HCl (Benadryl) 25 mg Q4H PRN PO SEE LABEL COMMENTS; Start 03/12 at 10:15; Stop 03/12/17 at 14:16; Status DC Potassium Chloride 100 ml @ 50 mls/hr Q2H IV Last administered on 03/12/17 13 :25; Start 03/12/17 at 11:00; Stop 03/12/17 at 14:59; Status DC Lidocaine HCl (Xylocaine 2% Inj) 50 ml STK-MED ONCE .ROUTE ; Start 03/12/17 at 13:04; Stop 03/12/17 at 13:05; Status DC Mupirocin (Bactroban 2% Oint) 22 applic STK-MED ONCE .ROUTE ; Start 03/12/17 at 13:06; Stop 03/12/17 at 13:07; Status DC Hydromorphone HCl (Dilaudid Pf Inj) 2 mg STK-MED ONCE .ROUTE ; Start 03/12/17 at 15:18; Stop 03/12/17 at 15:19; Status DC Acetaminophen (Ofirmev Inj) 1,000 mg STK-MED ONCE IV ; Start 03/12/17 at 15:18; Stop 03/12/17 at 15:19; Status DC Vancomycin HCl (Vancomycin Inj) 1,000 mg STK-MED ONCE .ROUTE Last administered on 03/12/17 15:54; Start 03/12/17 at 15:57; Stop 03/12/17 at 15:58; Status DC Neomycin/Polymyxin (Neosporin G.u. Irr) 2 ml STK-MED ONCE TOPICAL Last administered on 03/12/17 15:54; Start 03/12/17 at 15:54; Stop 03/12/17 at 16:15 ; Status DC Fentanyl Citrate (fentaNYL INJ) 250 mcg STK-MED ONCE .ROUTE ; Start 03/12/17 at 17:04; Stop 03/12/17 at 17:05; Status DC Miscellaneous Information ALL NURSING DEPARTME... UNSCH PRN .XX SEE LABEL COMMENTS; Start 03/12/17 at 17:30; Stop 03/13/17 at 17:29; Status DC Morphine Sulfate (*morphine INJ PERIprocedure ONLY) 8 mg STK-MED ONCE .ROUTE Last administered on 03/12/17 17:33; Start 03/12/17 at 17:33; Stop 03/12/17 at 17:34; Status DC Lidocaine HCl (Xylocaine 1% Inj) 10 ml ONCE@0700 ONCE OTHER ; Start 03/13/17 at 07:00; Stop 03/13/17 at 07:01; Status DC Potassium Chloride/Sodium Chloride 1,000 ml @ 75 mls/hr [id number] IV Last administered on 04/04/17 13:12; Start 03/13/17 at 11:30 Polyethylene Glycol/ Electrolytes (Colyte Liq) 4,000 ml ONCE ONCE PEG Last administered on 03/14/17 17:13; Start 03/14/17 at 16:00; Stop 03/14/17 at 16:01 ; Status DC Sodium Chloride 250 ml @ 15 mls/hr ONCE ONCE IV Last administered on 21:30; Start 03/13/17 at 20:00; Stop 03/14/17 at 12:39; Status DC Polyethylene Glycol/ Electrolytes (Colyte Liq) 4,000 ml ONCE ONCE PO Last administered on 03/15/17 17:19; Start 03/15/17 at 16:45; Stop 03/15/17 at 16:48 ; Status DC Propofol (Diprivan 200 Mg/20 ml Inj) 180 mg ONCE ONCE IV Last administered on 03/15/17 16:45; Start 03/15/17 at 16:43; Stop 03/15/17 at 16:45; Status DC Sodium Biphosphate/ Sodium Phosphate (Fleets Enema (Adult)) 133 ml ONCE ONCE RECTAL Last administered on 03/16/17 14:45; Start 03/16/17 at 14:15; Stop at 14:21; Status DC Sodium Biphosphate/ Sodium Phosphate (Fleets Enema (Adult)) 133 ml ONCE ONCE RECTAL Last administered on 03/17/17 09:49; Start 03/17/17 at 08:00; Stop at 08:01; Status DC Propofol (Diprivan 200 Mg/20 ml Inj) 100 mg ONCE ONCE IV PUSH ; Start at 15:00; Stop 03/16/17 at 15:01; Status DC Midazolam HCl (Versed Inj) 2 mg STK-MED ONCE .ROUTE ; Start 03/16/17 at 15:34; Stop 03/16/17 at 15:35; Status DC Vancomycin HCl (Vancomycin Inj) 1,000 mg STK-MED ONCE .ROUTE Last administered on 03/18/17 18:58; Start 03/18/17 at 18:15; Stop 03/18/17 at 18:16; Status DC Fentanyl Citrate (fentaNYL INJ) 200 mcg STK-MED ONCE .ROUTE ; Start 03/18/17 at 19:50; Stop 03/18/17 at 19:51; Status DC Methocarbamol (Robaxin) 500 mg Q8HR PO Last administered on 04/04/17 13:12; Start 03/19/17 at 14:00 Acetaminophen 100 ml @ As Directed STK-MED ONCE IV ; Start 03/24/17 at 09:21; Stop 03/24/17 at 09:22; Status DC Midazolam HCl (Versed Inj) 2 mg STK-MED ONCE .ROUTE ; Start 03/24/17 at 09:21; Stop 03/24/17 at 09:22; Status DC Fentanyl Citrate (fentaNYL INJ) 100 mcg STK-MED ONCE .ROUTE ; Start 03/24/17 at 09:21; Stop 03/24/17 at 09:22; Status DC Fentanyl Citrate (fentaNYL INJ) 100 mcg STK-MED ONCE .ROUTE ; Start 03/24/17 at 09:21; Stop 03/24/17 at 09:22; Status DC Hydromorphone HCl (*DILAUDID PF INJ PERIprocedural ONLY) 1 mg STK-MED ONCE .ROUTE Last administered on 03/24/17 14:53; Start 03/24/17 at 14:53; Stop at 14:54; Status DC Meperidine HCl (*DEMEROL INJ PERIprocedural ONLY) 25 mg STK-MED ONCE .ROUTE Last administered on 03/24/17 15:01; Start 03/24/17 at 15:01; Stop 03/24/17 at 15:02; Status DC Fentanyl Citrate (fentaNYL INJ) 400 mcg STK-MED ONCE .ROUTE ; Start 03/24/17 at 15:01; Stop 03/24/17 at 15:02; Status DC Miscellaneous Information ALL NURSING DEPARTME... UNSCH PRN .XX SEE LABEL COMMENTS; Start 03/24/17 at 14:52; Stop 03/25/17 at 14:51; Status DC Polyethylene Glycol (Miralax) 17 gm DAILY PO ; Start 03/24/17 at 16:30; Status Cancel Acetaminophen (Tylenol) 650 mg Q4H PRN PO fever Last administered on 03/25/17 10:02; Start 03/25/17 at 10:00 Piperacillin Sod/ Tazobactam Sod 100 ml @ 200 mls/hr Q8H IV Last administered on 03/29/17 12:36; Start 03/25/17 at 20:00; Stop 03/29/17 at 14:34; Status DC Furosemide (Lasix Inj) 10 mg ONCE ONCE IV PUSH Last administered on 03/26/17 13:47; Start 03/26/17 at 13:30; Stop 03/26/17 at 13:34; Status DC Furosemide (Lasix Inj) 10 mg UNSCH X1 IV PUSH Last administered on 03/27/17 01 :31; Start 03/26/17 at 17:15; Stop 03/26/17 at 23:59; Status DC Levothyroxine Sodium (Synthroid) 50 mcg DAILY@0600 PO Last administered on 04/04 06:10; Start 03/30/17 at 06:00 Levothyroxine Sodium (Synthroid) 50 mcg ONCE ONCE PO Last administered on 12:55; Start 03/29/17 at 12:00; Stop 03/29/17 at 12:02; Status DC Levofloxacin (Levaquin) 500 mg DAILY PO Last administered on 04/04/17 09:22; Start 03/29/17 at 14:45; Stop 04/07/17 at 14:44 Propofol (Diprivan 200 Mg/20 ml Inj) 200 mg STK-MED ONCE IV ; Start 02/26/17 at 12:00; Stop 03/30/17 at 13:17; Status DC Neostigmine Methylsulfate (Prostigmin Inj) 3 mg STK-MED ONCE IV ; Start 02/26/17 at 12:00; Stop 03/30/17 at 13:17; Status DC Phenylephrine HCl (Neosynephrine/ NS 1000 Mcg/10ml Syr) 1,000 mcg STK-MED ONCE IV ; Start 02/26/17 at 12:00; Stop 03/30/17 at 13:17; Status DC Lactated Ringer's 2,000 ml @ As Directed STK-MED ONCE IV ; Start 02/26/17 at 12: 00; Stop 03/30/17 at 13:17; Status DC Propofol (Diprivan 200 Mg/20 ml Inj) 200 mg STK-MED ONCE IV ; Start 02/28/17 at 12:00; Stop 03/30/17 at 13:46; Status DC Neostigmine Methylsulfate (Prostigmin Inj) 3 mg STK-MED ONCE IV ; Start 02/28/17 at 12:00; Stop 03/30/17 at 13:46; Status DC Lactated Ringer's 2,000 ml @ As Directed STK-MED ONCE IV ; Start 02/28/17 at 12: 00; Stop 03/30/17 at 13:46; Status DC Propofol (Diprivan 200 Mg/20 ml Inj) 400 mg STK-MED ONCE IV ; Start 03/04/17 at 12:00; Stop 03/30/17 at 14:07; Status DC Ephedrine Sulfate (ePHEDrine/NS 25 MG/5 ML SYR) 25 mg STK-MED ONCE IV ; Start at 12:00; Stop 03/30/17 at 14:07; Status DC Phenylephrine HCl (Neosynephrine/ NS 1000 Mcg/10ml Syr) 2,000 mcg STK-MED ONCE IV ; Start 03/04/17 at 12:00; Stop 03/30/17 at 14:08; Status DC Ondansetron HCl (Zofran Inj) 4 mg STK-MED ONCE IV PUSH ; Start 03/04/17 at 12:00 ; Stop 03/30/17 at 14:08; Status DC Propofol (Diprivan 200 Mg/20 ml Inj) 200 mg STK-MED ONCE IV ; Start 03/08/17 at 12:00; Stop 03/30/17 at 14:49; Status DC Ephedrine Sulfate (ePHEDrine/NS 25 MG/5 ML SYR) 50 mg STK-MED ONCE IV ; Start at 12:00; Stop 03/30/17 at 14:49; Status DC Neostigmine Methylsulfate (Prostigmin Inj) 4 mg STK-MED ONCE IV ; Start at 12:00; Stop 03/30/17 at 14:49; Status DC Phenylephrine HCl (Neosynephrine/ NS 1000 Mcg/10ml Syr) 1,000 mcg STK-MED ONCE IV ; Start 03/08/17 at 12:00; Stop 03/30/17 at 14:49; Status DC Ondansetron HCl (Zofran Inj) 4 mg STK-MED ONCE IV PUSH ; Start 03/08/17 at 12:00 ; Stop 03/30/17 at 14:49; Status DC Lactated Ringer's 1,000 ml @ As Directed STK-MED ONCE IV ; Start 03/08/17 at 12 :00; Stop 03/30/17 at 14:49; Status DC Propofol (Diprivan 200 Mg/20 ml Inj) 200 mg STK-MED ONCE IV ; Start 03/10/17 at 12:00; Stop 03/30/17 at 15:08; Status DC Ephedrine Sulfate (ePHEDrine/NS 25 MG/5 ML SYR) 25 mg STK-MED ONCE IV ; Start at 12:00; Stop 03/30/17 at 15:08; Status DC Neostigmine Methylsulfate (Prostigmin Inj) 3 mg STK-MED ONCE IV ; Start at 12:00; Stop 03/30/17 at 15:08; Status DC Phenylephrine HCl (Neosynephrine/ NS 1000 Mcg/10ml Syr) 2,000 mcg STK-MED ONCE IV ; Start 03/10/17 at 12:00; Stop 03/30/17 at 15:08; Status DC Ondansetron HCl (Zofran Inj) 4 mg STK-MED ONCE IV PUSH ; Start 03/10/17 at 12:00 ; Stop 03/30/17 at 15:08; Status DC Lactated Ringer's 1,000 ml @ As Directed STK-MED ONCE IV ; Start 03/10/17 at 12 :00; Stop 03/30/17 at 15:08; Status DC Sodium Chloride 1,000 ml @ As Directed STK-MED ONCE IV ; Start 03/10/17 at 12: 00; Stop 03/30/17 at 15:08; Status DC Propofol (Diprivan 200 Mg/20 ml Inj) 200 mg STK-MED ONCE IV ; Start 03/12/17 at 12:00; Stop 03/30/17 at 15:20; Status DC Ephedrine Sulfate (ePHEDrine/NS 25 MG/5 ML SYR) 25 mg STK-MED ONCE IV ; Start at 12:00; Stop 03/30/17 at 15:20; Status DC Phenylephrine HCl (Neosynephrine/ NS 1000 Mcg/10ml Syr) 1,000 mcg STK-MED ONCE IV ; Start 03/12/17 at 12:00; Stop 03/30/17 at 15:20; Status DC Ondansetron HCl (Zofran Inj) 4 mg STK-MED ONCE IV PUSH ; Start 03/12/17 at 12:00 ; Stop 03/30/17 at 15:20; Status DC Lactated Ringer's 1,000 ml @ As Directed STK-MED ONCE IV ; Start 03/12/17 at 12 :00; Stop 03/30/17 at 15:20; Status DC Propofol (Diprivan 200 Mg/20 ml Inj) 200 mg STK-MED ONCE IV ; Start 03/18/17 at 12:00; Stop 03/30/17 at 15:38; Status DC Ondansetron HCl (Zofran Inj) 4 mg STK-MED ONCE IV PUSH ; Start 03/18/17 at 12:00 ; Stop 03/30/17 at 15:38; Status DC Neostigmine Methylsulfate (Prostigmin Inj) 3 mg STK-MED ONCE IV ; Start at 12:00; Stop 03/30/17 at 15:38; Status DC Phenylephrine HCl (Neosynephrine/ NS 1000 Mcg/10ml Syr) 1,000 mcg STK-MED ONCE IV ; Start 03/18/17 at 12:00; Stop 03/30/17 at 15:38; Status DC Oxycodone/ Acetaminophen (Percocet 5-325 Mg) 1 tab Q4H PRN PO pain 3 to 5; Start 04/02/17 at 13:00 Oxycodone/ Acetaminophen (Percocet 10-325 Mg) 1 tab Q4H PRN PO pain 6-10 Last administered on 04/04/17 11:15; Start 04/02/17 at 13:00 Magnesium Sulfate/ Dextrose 100 ml @ 100 mls/hr Q1H IV Last administered on 16:15; Start 04/03/17 at 14:00; Stop 04/03/17 at 15:59; Status DC A/P Problem List: (1) Sepsis ICD Code: A41.9 - Sepsis, unspecified organism Status: Acute (2) Right foot infection ICD Code: L08.9 - Local infection of the skin and subcutaneous tissue, unspecified Status: Acute (3) Encephalopathy ICD Code: G93.40 - Encephalopathy, unspecified Status: Acute (4) Alcoholism ICD Code: F10.20 - Alcohol dependence, uncomplicated Status: Chronic (5) Hypothyroidism ICD Code: E03.9 - Hypothyroidism, unspecified Assessment and Plan 61-year-old male admitted secondary to numerous infections including bilateral hands and right ankle. Previous history of right ankle. Patient also had encephalopathy secondary to infection and alcohol withdrawal time of admit. Encephalopathy has improved. Continued treatments of infections are ongoing. Status post I&D of right elbow. Continue wound care. Robaxin started for muscle spasms. 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 distant showering of emboli to other joints. MRSA bacteremia Right ankle hardware infection, s/p partial removal of hardware. Deeper hardware embedded. SP RIGHT BKA Bilateral UE hand abscess and tenosynovitis, septic arthritis s.p multiple debridements. Recent fever on 03/25 (resolved) CXR showed possible b/l infiltrate but no clinical respiratory symptoms, UTI with + UA , lactic acidosis (improved), on zosyn with dapto Antibiotic per ID Plan for long-term IV antibiotics, rifampin for 6 weeks Likely will need longterm facility placement Continue oxycodone and Dilaudid for pain May still need further surgical intervention Hand surgeon following Podiatry following ID following Multiple surgeries thus far: - podiatry Dr. Reyes/Dr. Gamez on 02/26, 02/28, 03/04 - hand surgeon Dr. Bullock on 02/26, 02/28, 03/04, 03/08, 03/10 Anemia Most recent hemoglobin is 8.0 Follow CBC Status post blood transfusion Acute Toxic/Metabolic Encephalopathy secondary to Sepsis Acute Alcohol Withdrawal Resolved Hypernatremia Resolved Hypokalemia Replace as needed Continue to monitor REPLACE Hypertension Continue clonidine and Coreg, cardiology initiate low dose lisinopril, monitor renal function Follow blood pressures Adjust as needed for control Mild Systolic CHF Scrotal edema EF of 40-45% with global hypokinesis found on 02/28/17 Continue beta amarjit Following BMP, consider initiating diuresis, (patient recently had fever and lactic acidosis) HYPOTHYROIDISM START SYNTHROID 50MCG DAILY THADDEUS possibly vanco induced Monitor renal function Avoid nephrotoxins Previous event was likely secondary to ATN Nephrology following Urinary retention Monitor urine output Hepatitis C Standard precautions Dysphagia: Improved patient on regular diet Dietitian to assess tapering tube feed DVT Prophylaxis Lovenox AM LABS CONTINUE CURRENT CARE DC PEG CONSULT GI TO REMOVE?- PEG OUT 9-7 pain control add oral meds HYPOMAG- REPLACE BY PROTOCOLS PT AND OT TO EVAL AND TREAT HYPOPHOSPHATEMIA WILL REPLACE AM LABS DW RN AND PT Problem Qualifiers (1) Sepsis: Isaac Pink DO Apr 04, 2017 13:58
[2017-04-04] MEDS ORDERED: CALCIUM CHLORIDE INJ 2 GM in SODIUM CHLORIDE 0.9% INJ 100 ML IV ONE (14:00)
[2017-04-04] MEDS: SODIUM CHLORIDE 1 GRAM TAB PO SCH ×2 (15:44→17:03)
[2017-04-04 16:04] VITALS: BP 129/80; PULSE 72; RESP 18; TEMP 96.7; O2SAT 97
[2017-04-04 20:00] VITALS: BP 116/63; PULSE 66; RESP 20; TEMP 98.4; O2SAT 96
[2017-04-05] VITALS: BP 114/71; PULSE 76; RESP 20; TEMP 98.3; O2SAT 96
[2017-04-05] MEDS: PANTOPRAZOLE SODIUM 40 MG VIAL IV PUSH SCH (00:14)
[2017-04-05] MEDS: oxyCODONE/ACETAMINOPHEN 10 MG/325 MG TAB PO PRN ×6 (00:14→22:58)
[2017-04-05] MEDS: HYDROmorphone HCL PF 1 MG/ML VIAL IV PUSH PRN ×5 (01:35→20:27)
[2017-04-05 04:00] VITALS: BP 146/70; PULSE 81; RESP 20; TEMP 99; O2SAT 96
[2017-04-05] MEDS: LEVOTHYROXINE SODIUM 50 MCG TAB PO SCH (05:51)
[2017-04-05] MEDS: cloNIDine HCL 0.3 MG TAB PO SCH ×3 (05:51→20:29)
[2017-04-05] MEDS: METHOCARBAMOL 500 MG TAB PO SCH ×3 (05:51→20:27)
[2017-04-05] MEDS: CARVEDILOL 6.25 MG TAB PO SCH ×2 (08:02→20:26)
[2017-04-05] MEDS: MUPIROCIN 2% OINT 1 APPLIC/GM SYR NASAL SCH ×2 (08:02→20:26)
[2017-04-05] MEDS: LEVOFLOXACIN 500 MG TAB PO SCH (08:03)
[2017-04-05] MEDS: MULTIVITAMIN TAB PO SCH (08:03)
[2017-04-05] MEDS: SODIUM CHLORIDE 1 GRAM TAB PO SCH ×3 (08:03→17:51)
[2017-04-05] MEDS: THIAMINE HCL 100 MG TAB PO SCH (08:03)
[2017-04-05] MEDS: LISINOPRIL 5 MG TAB PO SCH (08:03)
[2017-04-05 08:04] VITALS: BP 107/62; PULSE 78; RESP 17; TEMP 99; O2SAT 95
[2017-04-05 08:16] LABS: AUTOMATED NEUTROPHIL # 7.1 TH/MM3 (1.8-7.7); BASOPHIL # 0.1 TH/MM3 (0-0.2); BASOPHIL % 0.6 % (0.0-2.0); EOSINOPHIL # 0.2 TH/MM3 (0-0.4); EOSINOPHIL % 2.3 % (0.0-4.0); HEMATOCRIT 28.3 % (39.0-51.0); HEMO FLAGS DIFF FINAL; LYMPH % 14.4 % (9.0-44.0); LYMPHOCYTE # 1.4 TH/MM3 (1.0-4.8); MEAN CELL VOLUME 88.6 FL (80.0-100.0); MEAN CORPUSCULAR HEMOGLOBIN 29.2 PG (27.0-34.0); MEAN CORPUSCULAR HGB CONC 32.9 % (32.0-36.0); MONO % 9.1 % (0.0-8.0); NEUT % 73.6 % (16.0-70.0); PLATELET COUNT 297 TH/MM3 (150-450); RED BLOOD COUNT 3.19 MIL/MM3 (4.50-5.90); RED CELL DISTRIBUTION WIDTH 17.5 % (11.6-17.2); WHITE BLOOD COUNT 9.6 TH/MM3 (4.0-11.0)
[2017-04-05 08:38] LABS: ALKALINE PHOSPHATASE 92 U/L (45-117); ALT (GPT) 20 U/L (12-78); ANION GAP 7 MEQ/L (5-15); AST (GOT) 22 U/L (15-37); BICARBONATE 24.3 MEQ/L (21.0-32.0); BLOOD UREA NITROGEN 11 MG/DL (7-18); CHLORIDE 92 MEQ/L (98-107); GLOMERULAR FILTRATION RATE 147 ML/MIN (>89); MAGNESIUM 1.7 MG/DL (1.5-2.5); POTASSIUM 4.4 MEQ/L (3.5-5.1); TOTAL BILIRUBIN ADULT 0.2 MG/DL (0.2-1.0)
[2017-04-05 09:10] LABS: SODIUM (NA) 123 MEQ/L (136-145)
[2017-04-05] MEDS: SODIUM CHLORIDE 0.9% IV SCH (11:01)
[2017-04-05] MEDS: DAPTOMYCIN IV SCH (11:01)
--- NOTE | 2017-04-05 11:50 | PD.CAR.PN ---
CVT Progress Note Subjective/Hospital Course: Referral received Full consult VERONICA Lee Juan 03/24/17 Discussed care with the patient today As noted in the consultation this patient has no chance of recovering without amputation and infection and systemic symptoms will persist. Patient is unable to use the leg which keeps him bedridden and dysfunctional. Patient will discussed the care with his father today and he is tentatively planned for surgery tomorrow 03/25/17 Status post right below-knee amputation Incision is clean and dry Dressing is intact We will leave the dressing on until Wednesday04/03/17 Status post BKA Incisions clean and dry Stitches are in place and stump is well perfused We will leave the stitches in for about 3 weeks total in the face of delayed healing Nothing to add to care at this time 04/05/17 Stump is clean and dry and well perfused flap Clean no drainage Sodium appears to be trending down and patient is hyponatremic which needs to be addressed by medicine Nothing to add to care Objective: Vital Signs Date Time Temp Pulse Resp B/P (MAP) Pulse Ox O2 Delivery O2 Flow Rate FiO2 04/05/17 09:18 Room Air 21 04/05/17 08:04 99.0 78 17 107/62 (77) 95 04/05/17 04:00 99.0 81 20 146/70 (95) 96 04/05/17 00:00 98.3 76 20 114/71 (85) 96 04/05/17 00:00 Room Air 04/04/17 20:00 98.4 66 20 116/63 (80) 96 04/04/17 20:00 Room Air 04/04/17 16:04 96.7 72 18 129/80 (96) 97 04/04/17 12:04 97.0 74 19 128/77 (94) 97 Labs: Laboratory Tests Test 04/05/17 07:17 White Blood Count 9.6 TH/MM3 (4.0-11.0) Red Blood Count 3.19 MIL/MM3 (4.50-5.90) Hemoglobin 9.3 GM/DL (13.0-17.0) Hematocrit 28.3 % (39.0-51.0) Mean Corpuscular Volume 88.6 FL (80.0-100.0) Mean Corpuscular Hemoglobin 29.2 PG (27.0-34.0) Mean Corpuscular Hemoglobin Concent 32.9 % (32.0-36.0) Red Cell Distribution Width 17.5 % (11.6-17.2) Platelet Count 297 TH/MM3 (150-450) Mean Platelet Volume 8.8 FL (7.0-11.0) Neutrophils (%) (Auto) 73.6 % (16.0-70.0) Lymphocytes (%) (Auto) 14.4 % (9.0-44.0) Monocytes (%) (Auto) 9.1 % (0.0-8.0) Eosinophils (%) (Auto) 2.3 % (0.0-4.0) Basophils (%) (Auto) 0.6 % (0.0-2.0) Neutrophils # (Auto) 7.1 TH/MM3 (1.8-7.7) Lymphocytes # (Auto) 1.4 TH/MM3 (1.0-4.8) Monocytes # (Auto) 0.9 TH/MM3 (0-0.9) Eosinophils # (Auto) 0.2 TH/MM3 (0-0.4) Basophils # (Auto) 0.1 TH/MM3 (0-0.2) CBC Comment DIFF FINAL Differential Comment Blood Urea Nitrogen 11 MG/DL (7-18) Creatinine 0.56 MG/DL (0.60-1.30) Random Glucose 92 MG/DL (74-106) Total Protein 6.2 GM/DL (6.4-8.2) Albumin 1.5 GM/DL (3.4-5.0) Calcium Level 7.8 MG/DL (8.5-10.1) Phosphorus Level 3.2 MG/DL (2.5-4.9) Magnesium Level 1.7 MG/DL (1.5-2.5) Alkaline Phosphatase 92 U/L (45-117) Aspartate Amino Transf (AST/SGOT) 22 U/L (15-37) Alanine Aminotransferase (ALT/SGPT) 20 U/L (12-78) Total Bilirubin 0.2 MG/DL (0.2-1.0) Sodium Level 123 MEQ/L (136-145) Potassium Level 4.4 MEQ/L (3.5-5.1) Chloride Level 92 MEQ/L (98-107) Carbon Dioxide Level 24.3 MEQ/L (21.0-32.0) Anion Gap 7 MEQ/L (5-15) Estimat Glomerular Filtration Rate 147 ML/MIN (>89) Result Diagram: 04/05/1771604/05/17716 (1) CHF (congestive heart failure) (2) Cardiomyopathy (3) ARF (acute renal failure) (4) Alcoholism (5) Tobacco use disorder (6) Sepsis Problem Qualifiers (1) Sepsis: Nazario Ruth MD Apr 05, 2017 11:50
[2017-04-05 12:04] VITALS: BP 124/68; PULSE 67; RESP 17; TEMP 99.1; O2SAT 96
--- NOTE | 2017-04-05 12:41 | HHI.PR ---
Subjective Remarks Follow up on MRSA endocarditis sepsis and bacteremia, right ankle hardware infection, bilateral upper extremity hand abscess and Pricila synovitis septic arthritis, catheter associated UTI acute renal failure hypertension alcoholism patient Is doing okay today, oral diet resumed after he past speech, consider tapering to proceed if dietitian agreed - NO NEW COMPLAINTS CONTINUE ANTIBIOTICS AND WOUND CARE DW RN AND PATIENT 9- RIGHT BKA DRESSED NO NEW COMPLAINTS NO SOB, NO CHEST PAIN HYPOTHYROID- START SYNTHROID 50MCG 03-30 NO NEW COMPLAINTS HAS CHRONIC BACK PAIN NO SOB, NO CHEST PAIN DW RN AND PATIENT CONTINUE ANTIBIOTICS -6 CONSULT GI REGARDING PEG REMOVAL AM LABS CHRONIC PAIN NO SOB, NO CHEST PAIN CONTINUE ON ANTIBIOTICS 04-01 HAD PEG TUBE REMOVED BY GI NO SOB, NO CHEST PAIN DW RN AND PT 9- complains of pain needs oral meds 9- PT AND OT TO EVAL AND TREAT PAIN BETTER CONTROLLED NO NEW COMPLAINTS TODAY DW PT AND RN 9 HYPONATREMIA AND HYPOCALCEMIA WILL REPLACE NO NEW COMPLAINTS DW RN AND PT 04-05 NEEDS TO TAKE NACL TABS DW RN AND PT Objective Vitals Vital Signs Date Time Temp Pulse Resp B/P (MAP) Pulse Ox O2 Delivery O2 Flow Rate FiO2 04/05/17 09:18 Room Air 21 04/05/17 08:04 99.0 78 17 107/62 (77) 95 04/05/17 04:00 99.0 81 20 146/70 (95) 96 04/05/17 00:00 98.3 76 20 114/71 (85) 96 04/05/17 00:00 Room Air 04/04/17 20:00 98.4 66 20 116/63 (80) 96 04/04/17 20:00 Room Air 04/04/17 16:04 96.7 72 18 129/80 (96) 97 I/O 04/04/17 04/04/17 04/04/17 04/05/17 04/05/17 04/05/17 07:00 15:00 23:00 07:00 15:00 23:00 Intake Total 800 ml 280 ml 1550 ml Output Total 2300 ml 1700 ml 4000 ml Balance -1500 ml -1420 ml -2450 ml Intake Oral 280 ml 650 ml IV Total 800 ml 900 ml Output Urine Total 2300 ml 1700 ml 4000 ml # Bowel Movements 1 0 Result Diagram: 04/05/17 0717 04/05/17 0717 Other Results Laboratory Tests Test 04/04/17 09:20 04/05/17 07:17 White Blood Count 8.3 TH/MM3 9.6 TH/MM3 Red Blood Count 3.07 MIL/MM3 3.19 MIL/MM3 Hemoglobin 9.1 GM/DL 9.3 GM/DL Hematocrit 27.2 % 28.3 % Mean Corpuscular Volume 88.7 FL 88.6 FL Mean Corpuscular Hemoglobin 29.6 PG 29.2 PG Mean Corpuscular Hemoglobin Concent 33.4 % 32.9 % Red Cell Distribution Width 17.4 % 17.5 % Platelet Count 272 TH/MM3 297 TH/MM3 Mean Platelet Volume 8.4 FL 8.8 FL Neutrophils (%) (Auto) 73.6 % 73.6 % Lymphocytes (%) (Auto) 14.2 % 14.4 % Monocytes (%) (Auto) 7.9 % 9.1 % Eosinophils (%) (Auto) 3.4 % 2.3 % Basophils (%) (Auto) 0.9 % 0.6 % Neutrophils # (Auto) 6.1 TH/MM3 7.1 TH/MM3 Lymphocytes # (Auto) 1.2 TH/MM3 1.4 TH/MM3 Monocytes # (Auto) 0.7 TH/MM3 0.9 TH/MM3 Eosinophils # (Auto) 0.3 TH/MM3 0.2 TH/MM3 Basophils # (Auto) 0.1 TH/MM3 0.1 TH/MM3 CBC Comment DIFF FINAL DIFF FINAL Differential Comment Blood Urea Nitrogen 11 MG/DL 11 MG/DL Creatinine 0.61 MG/DL 0.56 MG/DL Random Glucose 118 MG/DL 92 MG/DL Total Protein 5.4 GM/DL 6.2 GM/DL Albumin 1.2 GM/DL 1.5 GM/DL Calcium Level 7.8 MG/DL 7.8 MG/DL Phosphorus Level 2.5 MG/DL 3.2 MG/DL Magnesium Level 1.6 MG/DL 1.7 MG/DL Alkaline Phosphatase 87 U/L 92 U/L Aspartate Amino Transf (AST/SGOT) 20 U/L 22 U/L Alanine Aminotransferase (ALT/SGPT) 21 U/L 20 U/L Total Bilirubin 0.2 MG/DL 0.2 MG/DL Sodium Level 122 MEQ/L 123 MEQ/L Potassium Level 4.2 MEQ/L 4.4 MEQ/L Chloride Level 92 MEQ/L 92 MEQ/L Carbon Dioxide Level 20.8 MEQ/L 24.3 MEQ/L Anion Gap 9 MEQ/L 7 MEQ/L Estimat Glomerular Filtration Rate 134 ML/MIN 147 ML/MIN Imaging Last Impressions Chest X-Ray 03/29/17 0000 Signed Impressions: Service Date/Time: Wednesday, March 29, 2017 12:17 - CONCLUSION: Stable chest. Isaac Stevenson MD FACR Tumor Localization 03/22/17 0000 Signed Impressions: Service Date/Time: Wednesday, March 22, 2017 13:03 - CONCLUSION: Nondiagnostic examination secondary to patient refusal Harry Lucio MD Abdomen X-Ray 03/08/17 0000 Signed Impressions: Service Date/Time: Wednesday, March 08, 2017 10:30 - CONCLUSION: Nonspecific, negative for obstruction or ileus. Isaac Stevenson MD FACR Lower Extremity CT 03/01/17 0000 Signed Impressions: Service Date/Time: Wednesday, March 01, 2017 11:12 - CONCLUSION: 1. No evidence of organized fluid collections to suggest an abscess. 2. Extensive soft tissue swelling surrounding the ankle and extending to the forefoot especially along the lateral aspect. 3. No erosive or destructive bone changes. 4. Bone defects compatible with previous excision device. Blake Rider MD Ankle X-Ray 02/26/17 0000 Signed Impressions: Service Date/Time: Sunday, February 26, 2017 17:15 - CONCLUSION: I see no retained surgical instruments. Isaac Stevenson MD FACR Upper Extremity Ultrasound 02/25/17 1734 Signed Impressions: Service Date/Time: February 17:54 - CONCLUSION: There is a thin fluid collection within the focal area of soft tissue swelling 2nd digit. Oscar Cassidy MD Hand X-Ray 02/25/17 0000 Signed Impressions: Service Date/Time: February 18:59 - CONCLUSION: No gross bony abnormality. Oscar Cassidy MD Lower Extremity Ultrasound 02/24/17 0000 Signed Impressions: Service Date/Time: Friday, February 24, 2017 13:41 - CONCLUSION: Negative for deep venous thrombosis. Isaac Stevenson MD FACR Head CT 02/24/17 0000 Signed Impressions: Service Date/Time: Friday, February 24, 2017 16:08 - CONCLUSION: 1. No acute intracranial abnormality. 2. Probable large mucocele in the sphenoid sinus. Ty Hankins MD Abdomen/Pelvis CT 02/24/17 0000 Signed Impressions: Service Date/Time: Friday, February 24, 2017 16:16 - CONCLUSION: 1. Marked gaseous distension of large and small bowel most suggestive of ileus. 2. There is no free air. 3. 2.2 cm left adrenal mass. 4. Distended bladder. Isaac Stevenson MD FACR Objective Remarks GENERAL: This is a well-nourished, well-developed patient, in no apparent distress. SKIN: No rashes, warm and dry HEAD: Atraumatic. Normocephalic. EYES: Pupils equal round and reactive. Extraocular motions intact. No scleral icterus. TONGUE MIDLINE- ORAL MUCOSA MOIST ENT: Nose without bleeding, or drainage, Airway patent. NECK: Trachea midline. Supple CARDIOVASCULAR: Regular rate and rhythm without murmurs, gallops, or rubs. S1, S2 NO S3 OR S4 NO HEAVE RESPIRATORY: Fair air entry bilaterally. No wheezes, rales, or rhonchi. GASTROINTESTINAL: Abdomen soft, non-tender, nondistended. Positive bowel sounds PEG IS GONE NOW GROIN SWOLLEN SCROTAL AREA-ELEVATED WITH BATH TOWEL- SANCHEZ IN PLACE MUSCULOSKELETAL:No cyanosis, or edema. Right and left arms are bandaged home right arm in lifting sling. Right LE IS BANDAGED HAS RIGHT BKA NEUROLOGICAL: Awake and alert. Moves all extremity. Normal speech.no focal neurological deficit : Scrotum swelling Procedures 03/10/2017 - Dr. Bullock exploration, wash, excisional debridement extensor tenosynovium right wrist/forearm/hand 03/08/17 - Dr. Bullock- exploration, wash, excisional debridement skin, subcutaneous tissue, extensor tenosynovitis right wrist and hand. Findings: necrotic tissue, minimal purulence, extensor tenosynovitis right wrist/hand 03/04/17 - Dr Gamez - Right leg and incision and drainage. Right foot delayed primary closure x3 03/04/17 - Dr. Bullock - Extensor tenosynovectomy second, third, fourth extensor compartments right wrist and excisional debridement wash index finger metacarpal phalangeal joint, excisional wash and excisional debridement left hand. 02/28/17 - Dr. Reyes - Right ankle wound debridement and washout. Implantation of antibiotic vancomycin beads. 02/28/17 - Dr. Bullock - Exploration, wash, excisional debridement index finger metacarpophalangeal joint right hand; Exploration, wash, excisional debridement metacarpophalangeal joint left index finger; Exploration, wash, excisional debridement extensor pollicis longus tendon right thumb and hand. 02/26/17 - Dr. Reyes - Right ankle incision and drainage, arthrotomy, removal infected hardware, bone biopsy. 02/26/17 - Dr. Bullock - Exploration, incision and drainage right hand abscess, Arthrotomy wash metacarpal phalangeal joint right index finger, Arthrotomy wash metacarpal phalangeal joint left index finger. Medications and IVs Current Medications Sodium Chloride 1,000 ml @ 999 mls/hr BOLUS ONCE IV Last administered on 13:38; Start 02/24/17 at 13:45; Stop 02/24/17 at 14:45; Status DC IV Flush (NS Flush) 2 ml UNSCH PRN IV FLUSH FLUSH AFTER USING IV ACCESS Last administered on 02/24/17 13:38; Start 02/24/17 at 13:45 Vancomycin HCl 1000 mg/Sodium Chloride 250 ml @ 250 mls/hr ONCE STAT IV Last administered on 02/24/17 15:49; Start 02/24/17 at 15:35; Stop 02/24/17 at 16:34; Status DC Cefepime HCl 2000 mg/Sodium Chloride 100 ml @ 200 mls/hr ONCE STAT IV Last administered on 02/24/17 16:36; Start 02/24/17 at 15:35; Stop 02/24/17 at 16:04; Status DC Potassium Bicarb/ Potassium Chloride (K-Lyte Cl Eff) 50 meq ONCE ONCE PO Last administered on 02/24/17 15:56; Start 02/24/17 at 16:00; Stop 02/24/17 at 16: 01; Status DC Iohexol (Omnipaque 350 Inj) 97 ml STK-MED ONCE IV Last administered on 16:29; Start 02/24/17 at 16:29; Stop 02/24/17 at 16:30; Status DC Sodium Chloride 1,000 ml @ 125 mls/hr Q8H IV Last administered on 03/02/17 09: 33; Start 02/24/17 at 18:00; Stop 03/02/17 at 13:08; Status DC Ondansetron HCl (Zofran Inj) 4 mg Q8HR PRN IV PUSH NAUSEA; Start 02/24/17 at 18: 00 Thiamine HCl (Vitamin B1) 100 mg ONCE ONCE PO Last administered on 02/24/17 20 :20; Start 02/24/17 at 20:15; Stop 02/24/17 at 20:16; Status DC Thiamine HCl (Vitamin B1) 100 mg DAILY PO Last administered on 04/05/17 08:03 ; Start 02/25/17 at 09:00 Potassium Chloride 100 ml @ 50 mls/hr Q2H IV Last administered on 02/24/17 22: 59; Start 02/24/17 at 20:30; Stop 02/25/17 at 00:29; Status DC Pharmacy Profile Note 0 ml @ 0 mls/hr UNSCH OTHER ; Start 02/24/17 at 20:15; Stop 03/02/17 at 13:23; Status DC Cefepime HCl 2000 mg/Sodium Chloride 100 ml @ 200 mls/hr Q12H IV Last administered on 02/27/17 05:51; Start 02/25/17 at 07:00; Stop 02/27/17 at 14:53; Status DC Vancomycin HCl 1500 mg/Sodium Chloride 515 ml @ 257.5 mls/ hr Q18H IV Last administered on 02/25/17 10:30; Start 02/25/17 at 10:00; Stop 02/25/17 at 11:30; Status DC Miscellaneous Information SPECIFIC LAB TO BE DRAWN:VANCO TROUGH DATE TO BE DRLaurence.. ONCE ONCE .XX ; Start 02/26/17 at 21:45; Stop 02/26/17 at 21:46; Status DC Flumazenil (Romazicon Inj) 0.2 mg Q1M PRN IV PUSH SEE LABEL COMMENTS; Start 02/25/17 at 09:15 Lorazepam (Ativan) 1 mg Q4H PRN PO agitation Last administered on 03/20/17 03: 18; Start 02/25/17 at 09:15 Lorazepam (Ativan Inj) 1 mg Q4H PRN IV PUSH agitation when not taking po Last administered on 03/05/17 02:41; Start 02/25/17 at 09:15 Lorazepam (Ativan) 2 mg Q2H PRN PO CIWA 11-14; Start 02/25/17 at 09:15; Stop 02/28/17 at 07:44; Status DC Lorazepam (Ativan Inj) 2 mg Q2H PRN IV PUSH CIWA 11-14 Last administered on 02/26 18:14; Start 02/25/17 at 09:15; Stop 02/28/17 at 07:44; Status DC Lorazepam (Ativan Inj) 2 mg Q1H PRN IV PUSH CIWA 15-20 Last administered on 02/25 21:37; Start 02/25/17 at 09:15; Stop 02/28/17 at 07:44; Status DC Lorazepam (Ativan Inj) 2 mg Q15M PRN IV PUSH CIWA > 20 Last administered on 02/26 06:25; Start 02/25/17 at 09:15; Stop 02/28/17 at 07:44; Status DC Multivitamins (Theragran) 1 tab DAILY PO Last administered on 04/05/17 08:03; Start 02/26/17 at 09:00 Acetaminophen (Tylenol) 650 mg Q4H PRN PO FEVER Last administered on 03/07/17 04:47; Start 02/25/17 at 09:15; Stop 03/12/17 at 10:47; Status DC Lisinopril (Prinivil) 10 mg DAILY PO ; Start 02/26/17 at 09:00; Stop 03/08/17 at 21:09; Status DC Enoxaparin Sodium (Lovenox Inj) 40 mg Q24H SQ Last administered on 03/07/17 10 :00; Start 02/25/17 at 10:00; Stop 03/10/17 at 12:17; Status DC Vancomycin HCl 1500 mg/Sodium Chloride 515 ml @ 257.5 mls/ hr Q12H IV Last administered on 02/26/17 09:42; Start 02/25/17 at 22:00; Stop 02/26/17 at 12:06; Status DC Miscellaneous Information SPECIFIC LAB TO BE ... ONCE ONCE .XX Last administered on 02/26/17 09:45; Start 02/26/17 at 09:45; Stop 02/26/17 at 09:46; Status DC Chlordiazepoxide (Librium) 25 mg Q8H PO ; Start 02/25/17 at 17:00; Stop 02/25/17 at 20:24; Status DC Gentamicin Sulfate 70 mg/ Sodium Chloride 101.75 ml @ 100 mls/ hr ONCE ONCE IV Last administered on 02/25/17 18:51; Start 02/25/17 at 18:30; Stop 02/25/17 at 19:31; Status DC Dexmedetomidine HCl 200 mcg/ Sodium Chloride 52 ml @ 0 mls/hr TITRATE IV Last administered on 02/27/17 13:55; Start 02/25/17 at 17:30; Stop 03/09/17 at 23:34; Status DC Acetaminophen (Ofirmev Inj) 650 mg Q6H PRN IV TEMP >101 Last administered on 20:12; Start 02/25/17 at 21:00 Iohexol (Omnipaque 350 Inj) 75 ml STK-MED ONCE IV Last administered on 21:15; Start 02/25/17 at 21:15; Stop 02/25/17 at 21:16; Status DC Potassium Chloride 100 ml @ 50 mls/hr Q2H PRN IV For Potassium 2.8 - 3.2 mEq/L ; Start 02/25/17 at 22:45; Stop 03/01/17 at 23:53; Status DC Potassium Chloride 100 ml @ 50 mls/hr Q2H PRN IV For Potassium 2.8 - 3.2 mEq/ L Last administered on 02/28/17 12:32; Start 02/25/17 at 22:45; Stop 03/01/17 at 23:53; Status DC Potassium Bicarb/ Potassium Chloride (K-Lyte Cl Eff) 50 meq UNSCH PRN PO For Potassium 3.3 - 3.5 mEq/L; Start 02/25/17 at 22:45; Stop 03/01/17 at 23:53; Status DC Potassium Chloride 100 ml @ 25 mls/hr UNSCH PRN IV For Potassium 3.3 - 3.5 mEq /L; Start 02/25/17 at 22:45; Stop 03/01/17 at 23:53; Status DC Potassium Chloride 100 ml @ 50 mls/hr Q2H PRN IV For Potassium 3.3 - 3.5 mEq/ L Last administered on 02/28/17 06:39; Start 02/25/17 at 22:45; Stop 03/01/17 at 23:53; Status DC Magnesium Sulfate 4 gm/Sodium Chloride 100 ml @ 50 mls/hr UNSCH PRN IV For Magnesium 0.9 - 1.1 mg/dL; Start 02/25/17 at 22:45; Stop 03/01/17 at 23:53; Status DC Magnesium Oxide (Mag-Ox) 800 mg UNSCH PRN PO For Magnesium 1.2 - 1.6 mg/dL; Start 02/25/17 at 22:45; Stop 03/01/17 at 23:53; Status DC Magnesium Sulfate 2 gm/Sodium Chloride 100 ml @ 50 mls/hr UNSCH PRN IV For Magnesium 1.2 - 1.6 mg/dL; Start 02/25/17 at 22:45; Stop 03/01/17 at 23:53; Status DC Potassium Phosphate (K-Phos) 2,000 mg Q4H PRN PO For Phosphorus < 2.5 mg/dL; Start 02/25/17 at 22:45; Stop 03/01/17 at 23:53; Status DC Sodium Phosphate 30 mmol/Sodium Chloride 250 ml @ 42 mls/hr UNSCH PRN IV For Phosphorus < 2.5 mg/dL Last administered on 02/26/17 23:19; Start 02/25/17 at 22: 45; Stop 03/01/17 at 23:53; Status DC Potassium Phosphate (K-Phos) 2,000 mg UNSCH PRN PO/TUBE SEE LABEL COMMENTS; Start 02/25/17 at 22:45; Stop 03/01/17 at 23:53; Status DC Potassium Phosphate 30 mmol/ Sodium Chloride 260 ml @ 42 mls/hr UNSCH PRN IV SEE LABEL COMMENTS; Start 02/25/17 at 22:45; Stop 03/01/17 at 23:53; Status DC Labetalol HCl (Trandate Inj) 10 mg Q6H PRN IV PUSH SBP >165; Start 02/25/17 at 23:15 Pantoprazole Sodium (Protonix Inj) 40 mg Q24H IV PUSH Last administered on 04/05 00:14; Start 02/26/17 at 00:00 Miscellaneous Information Patient in critical care unit? Ass... [id number] .XX ; Start 02/26/17 at 07:15 Mupirocin (Bactroban Nasal 2% Oint) 1 applic BID NASAL Last administered on 08:02; Start 02/26/17 at 09:00 Chlorhexidine Gluconate (Chlorhexidine 2% Cloth) 3 pack DAILY@04 TOPICAL Last administered on 03/03/17 04:00; Start 02/27/17 at 04:00; Stop 03/03/17 at 04:01; Status DC Chlorhexidine Gluconate (Chlorhexidine 2% Cloth) 3 pack UNSCH PRN TOPICAL HYGIENIC CARE; Start 02/26/17 at 07:15; Stop 03/03/17 at 07:07; Status DC Lidocaine HCl (Xylocaine 2% Inj) 50 ml STK-MED ONCE .ROUTE ; Start 02/26/17 at 09 :35; Stop 02/26/17 at 09:36; Status DC Bupivacaine HCl (Marcaine Pf 0.5% Inj) 60 ml STK-MED ONCE .ROUTE ; Start at 09:35; Stop 02/26/17 at 09:36; Status DC Mupirocin (Bactroban 2% Oint) 22 applic STK-MED ONCE .ROUTE ; Start 02/26/17 at 09:35; Stop 02/26/17 at 09:36; Status DC Vancomycin HCl 1250 mg/Sodium Chloride 262.5 ml @ 250 mls/hr Q12H IV Last administered on 03/02/17 09:33; Start 02/26/17 at 22:00; Stop 03/02/17 at 13:23; Status DC Miscellaneous Information SPECIFIC LAB TO BE BIA... ONCE ONCE .XX Last administered on 02/27/17 22:46; Start 02/27/17 at 21:45; Stop 02/27/17 at 21:46; Status DC Neomycin/Polymyxin (Neosporin G.u. Irr) 3 ml STK-MED ONCE TOPICAL Last administered on 02/26/17 13:06; Start 02/26/17 at 13:06; Stop 02/26/17 at 16:26; Status DC Neomycin/Polymyxin (Neosporin G.u. Irr) 4 ml STK-MED ONCE TOPICAL Last administered on 02/26/17 15:47; Start 02/26/17 at 15:47; Stop 02/26/17 at 16:26; Status DC Fentanyl Citrate (fentaNYL INJ) 250 mcg STK-MED ONCE .ROUTE ; Start 02/26/17 at 18:16; Stop 02/26/17 at 18:17; Status DC Fentanyl Citrate (fentaNYL INJ) 100 mcg STK-MED ONCE .ROUTE ; Start 02/26/17 at 18:16; Stop 02/26/17 at 18:17; Status DC Miscellaneous Information ALL NURSING DEPARTME... UNSCH PRN .XX SEE LABEL COMMENTS; Start 02/26/17 at 17:57; Stop 02/27/17 at 17:56; Status DC Clonidine (Catapres) 0.3 mg Q8HR PO Last administered on 04/05/17 05:51; Start 02/26/17 at 22:11 Diazepam (Valium) 5 mg Taper DAILY PO Last administered on 03/06/17 09:49; Start 02/26/17 at 22:15; Stop 03/06/17 at 22:14; Status DC Water (Free Water) 200 ml Q8HR G-TUBE Last administered on 02/27/17 22:31; Start 02/27/17 at 06:55; Stop 02/28/17 at 07:41; Status DC Rifampin 300 mg/ Sodium Chloride 100 ml @ 100 mls/hr Q12H IV Last administered on 03/02/17 14:41; Start 02/27/17 at 15:00; Stop 03/02/17 at 16:41; Status DC Oxycodone HCl (Roxicodone) 5 mg Q4H PRN PO pain 1-5 Last administered on 09:26; Start 02/28/17 at 07:45 Hydromorphone HCl (Dilaudid Pf Inj) 0.5 mg Q3H PRN IV PUSH pain 6-10 or not taking po Last administered on 9/11/17at 10:38; Start 02/28/17 at 07:45 Water (Free Water) 300 ml Q4HR G-TUBE Last administered on 03/02/17 20:00; Start 02/28/17 at 08:00; Stop 03/02/17 at 23:07; Status DC Vancomycin HCl (Vancomycin Inj) 1,000 mg STK-MED ONCE .ROUTE Last administered on 02/28/17 09:01; Start 02/28/17 at 09:01; Stop 02/28/17 at 09:02; Status DC Vancomycin HCl (Vancomycin Inj) 1,000 mg STK-MED ONCE .ROUTE Last administered on 02/28/17 09:33; Start 02/28/17 at 09:33; Stop 02/28/17 at 09:34; Status DC Vancomycin HCl (Vancomycin Inj) 1,000 mg STK-MED ONCE .ROUTE Last administered on 02/28/17 09:36; Start 02/28/17 at 09:33; Stop 02/28/17 at 09:34; Status DC Daptomycin 450 mg/ Sodium Chloride 100 ml @ 200 mls/hr Q24H IV Last administered on 03/05/17 13:41; Start 02/28/17 at 12:00; Stop 03/05/17 at 18:00 ; Status DC Vancomycin HCl (Vancomycin Inj) 1,000 mg STK-MED ONCE .ROUTE Last administered on 02/28/17 10:45; Start 02/28/17 at 10:42; Stop 02/28/17 at 10:43; Status DC Vancomycin HCl (Vancomycin Inj) 500 mg STK-MED ONCE .ROUTE Last administered on 02/28/17 10:45; Start 02/28/17 at 10:42; Stop 02/28/17 at 10:43; Status DC Fentanyl Citrate (fentaNYL INJ) 250 mcg STK-MED ONCE .ROUTE ; Start 02/28/17 at 11:48; Stop 02/28/17 at 11:49; Status DC Miscellaneous Information ALL NURSING DEPARTME... UNSCH PRN .XX SEE LABEL COMMENTS; Start 02/28/17 at 11:33; Stop 03/01/17 at 11:32; Status DC Miscellaneous Information SPECIFIC LAB TO BE BIA... ONCE ONCE .XX ; Start 03/04 at 09:45; Stop 03/04/17 at 09:46; Status Cancel Sodium Chloride 1,000 ml @ 999 mls/hr BOLUS ONCE IV Last administered on 13:28; Start 03/02/17 at 13:15; Stop 03/02/17 at 14:15; Status DC Sodium Chloride 1,000 ml @ 125 mls/hr Q8H IV Last administered on 03/02/17 14: 18; Start 03/02/17 at 13:15; Stop 03/02/17 at 14:30; Status DC Rifampin (Rifampin) 300 mg Q12HR PO Last administered on 03/23/17 08:42; Start 03/02/17 at 21:00; Stop 03/23/17 at 18:40; Status DC Potassium Chloride 20 meq/ Sodium Chloride 38.5 meq/Sterile Water 1,010 ml @ 55 mls/hr [id number] IV Last administered on 03/09/17 22:51; Start 03/03/17 at 11: 00; Stop 03/09/17 at 23:36; Status DC Furosemide (Lasix Inj) 20 mg ONCE ONCE IV PUSH Last administered on 03/03/17 10:19; Start 03/03/17 at 09:30; Stop 03/03/17 at 09:43; Status DC Carvedilol (Coreg) 6.25 mg Q12HR PO Last administered on 04/05/17 08:02; Start 03/03/17 at 21:00 Vancomycin HCl (Vancomycin Inj) 1,000 mg STK-MED ONCE .ROUTE Last administered on 03/04/17 15:52; Start 03/04/17 at 15:10; Stop 03/04/17 at 15:11; Status DC Fentanyl Citrate (fentaNYL INJ) 100 mcg STK-MED ONCE .ROUTE ; Start 03/04/17 at 16:38; Stop 03/04/17 at 16:39; Status DC Fentanyl Citrate (fentaNYL INJ) 250 mcg STK-MED ONCE .ROUTE ; Start 03/04/17 at 16:38; Stop 03/04/17 at 16:39; Status DC Vancomycin HCl (Vancomycin Inj) 1,000 mg STK-MED ONCE .ROUTE Last administered on 03/04/17 16:52; Start 03/04/17 at 16:59; Stop 03/04/17 at 17:00; Status DC Fentanyl Citrate (fentaNYL INJ) 100 mcg STK-MED ONCE .ROUTE ; Start 03/04/17 at 18:24; Stop 03/04/17 at 18:25; Status DC Fentanyl Citrate (fentaNYL INJ) 250 mcg STK-MED ONCE .ROUTE ; Start 03/04/17 at 18:25; Stop 03/04/17 at 18:26; Status DC Miscellaneous Information ALL NURSING DEPARTME... UNSCH PRN .XX SEE LABEL COMMENTS; Start 03/04/17 at 19:15; Stop 03/05/17 at 19:14; Status DC Daptomycin 550 mg/ Sodium Chloride 100 ml @ 200 mls/hr Q24H IV Last administered on 04/05/17 11:01; Start 03/06/17 at 12:00 Bisacodyl (Dulcolax Supp) 10 mg DAILY PRN RECTAL SEVERE CONSITIPATION; Start at 21:00 Lactulose (Lactulose Liq) 30 ml DAILY PRN NG SEVERE CONSITIPATION Last administered on 03/07/17 18:45; Start 03/06/17 at 21:00 Docusate Sodium (Colace Liq) 100 mg Q12HR PO Last administered on 03/09/17 09: 30; Start 03/06/17 at 21:15; Status Future Hold Sodium Chloride 250 ml @ 15 mls/hr ONCE ONCE IV Last administered on 00:27; Start 03/07/17 at 19:00; Stop 03/08/17 at 12:06; Status DC Furosemide (Lasix Inj) 20 mg ONCE ONCE IV Last administered on 03/08/17 03:49 ; Start 03/07/17 at 19:00; Stop 03/07/17 at 19:01; Status DC Polyethylene Glycol/ Electrolytes (Colyte Liq) 4,000 ml ONCE ONCE PO ; Start at 11:00; Stop 03/08/17 at 11:01; Status Cancel Mupirocin (Bactroban 2% Oint) 22 applic STK-MED ONCE .ROUTE ; Start 03/08/17 at 12:10; Stop 03/08/17 at 12:11; Status DC Lidocaine HCl (Xylocaine 2% Inj) 50 ml STK-MED ONCE .ROUTE ; Start 03/08/17 at 12:13; Stop 03/08/17 at 12:14; Status DC Bupivacaine HCl (Marcaine Pf 0.5% Inj) 30 ml STK-MED ONCE .ROUTE ; Start at 12:17; Stop 03/08/17 at 12:18; Status DC Famotidine (Pepcid Inj) 20 mg STK-MED ONCE .ROUTE ; Start 03/08/17 at 13:17; Stop 03/08/17 at 13:18; Status DC Vancomycin HCl (Vancomycin Inj) 1,000 mg STK-MED ONCE .ROUTE Last administered on 03/08/17t 14:35; Start 03/08/17 at 14:07; Stop 03/08/17 at 14:08; Status DC Sodium Chloride (Sodium Chloride 0.9% Inj) 20 ml STK-MED ONCE .ROUTE ; Start at 14:07; Stop 03/08/17 at 14:08; Status DC Vancomycin HCl (Vancomycin Inj) 1,000 mg STK-MED ONCE .ROUTE ; Start 03/08/17 at 14:42; Stop 03/08/17 at 14:43; Status DC Sodium Chloride (Sodium Chloride 0.9% Inj) 20 ml STK-MED ONCE .ROUTE ; Start at 14:42; Stop 03/08/17 at 14:43; Status DC Fentanyl Citrate (fentaNYL INJ) 500 mcg STK-MED ONCE .ROUTE ; Start 03/08/17 at 15:51; Stop 03/08/17 at 15:52; Status DC Miscellaneous Information ALL NURSING DEPARTME... UNSCH PRN .XX SEE LABEL COMMENTS; Start 03/08/17 at 15:40; Stop 03/09/17 at 15:39; Status DC Polyethylene Glycol/ Electrolytes (Colyte Liq) 4,000 ml ONCE ONCE NG Last administered on 03/08/17t 22:42; Start 03/08/17 at 20:00; Stop 03/08/17 at 20:01 ; Status DC Lisinopril (Prinivil) 2.5 mg DAILY PO Last administered on 04/05/17 08:03; Start 03/09/17 at 09:00 Miscellaneous (Pill Splitter) 1 ea UNSCH PRN OTHER SEE LABEL COMMENTS; Start at 21:15 Dextrose 1,000 ml @ 84 mls/hr [id number] IV Last administered on 03/11/17 21:24 ; Start 03/09/17 at 23:45; Stop 03/11/17 at 23:38; Status DC Enoxaparin Sodium (Lovenox Inj) 40 mg Q24H SQ Last administered on 04/04/17 13 :11; Start 03/10/17 at 13:00; Status Future hold Bupivacaine HCl (Marcaine Pf 0.5% Inj) 30 ml STK-MED ONCE .ROUTE ; Start at 14:50; Stop 03/10/17 at 14:51; Status DC Lidocaine HCl (Xylocaine 2% Inj) 50 ml STK-MED ONCE .ROUTE ; Start 03/10/17 at 14:51; Stop 03/10/17 at 14:52; Status DC Bacitracin (Baciguent Oint) 15 applic STK-MED ONCE .ROUTE Last administered on 03/10/17 16:43; Start 03/10/17 at 14:51; Stop 03/10/17 at 14:52; Status DC Vancomycin HCl (Vancomycin Inj) 1,000 mg STK-MED ONCE .ROUTE Last administered on 03/10/17 15:49; Start 03/10/17 at 15:45; Stop 03/10/17 at 15:46; Status DC Sodium Chloride (Sodium Chloride 0.9% Inj) 20 ml STK-MED ONCE .ROUTE ; Start at 15:45; Stop 03/10/17 at 15:46; Status DC Neomycin/Polymyxin (Neosporin G.u. Irr) 2 ml STK-MED ONCE TOPICAL Last administered on 03/10/17 15:49; Start 03/10/17 at 15:49; Stop 03/10/17 at 15:59 ; Status DC Bacitracin (Baciguent Oint) 30 applic STK-MED ONCE .ROUTE Last administered on 03/10/17 16:44; Start 03/10/17 at 16:41; Stop 03/10/17 at 16:42; Status DC Hydromorphone HCl (Dilaudid Pf Inj) 2 mg STK-MED ONCE .ROUTE ; Start 03/10/17 at 16:47; Stop 03/10/17 at 16:48; Status DC Fentanyl Citrate (fentaNYL INJ) 250 mcg STK-MED ONCE .ROUTE ; Start 03/10/17 at 17:22; Stop 03/10/17 at 17:23; Status DC Morphine Sulfate (*morphine INJ PERIprocedure ONLY) 8 mg STK-MED ONCE .ROUTE Last administered on 03/10/17 18:12; Start 03/10/17 at 18:12; Stop 03/10/17 at 18:13; Status DC Miscellaneous Information ALL NURSING DEPARTME... UNSCH PRN .XX SEE LABEL COMMENTS; Start 03/10/17 at 14:30; Stop 03/11/17 at 14:29; Status DC Propofol (Diprivan 200 Mg/20 ml Inj) 200 mg STK-MED ONCE IV PUSH ; Start at 15:29; Stop 03/11/17 at 15:47; Status DC Oxybenzone/ Padimate O/ Dimethicone (Blistex Lip Windber) 4.25 applic STK-MED ONCE TOPICAL Last administered on 03/11/17 16:02; Start 03/11/17 at 16:02; Stop at 16:03; Status DC Miscellaneous Information ALL NURSING DEPARTME... UNSCH PRN .XX SEE LABEL COMMENTS; Start 03/11/17 at 16:00; Stop 03/12/17 at 15:59; Status DC Succinylcholine Chloride (Quelicin Inj) 200 mg STK-MED ONCE IV PUSH ; Start at 15:27; Stop 03/12/17 at 08:59; Status DC Sodium Chloride 250 ml @ 15 mls/hr ONCE ONCE IV Last administered on t 10:15; Start 03/12/17 at 10:15; Stop 03/13/17 at 02:54; Status DC Acetaminophen (Tylenol) 650 mg Q4H PRN PO SEE LABEL COMMENTS; Start 03/12/17 at 10:15; Stop 03/12/17 at 14:16; Status DC Diphenhydramine HCl (Benadryl) 25 mg Q4H PRN PO SEE LABEL COMMENTS; Start 03/12 at 10:15; Stop 03/12/17 at 14:16; Status DC Potassium Chloride 100 ml @ 50 mls/hr Q2H IV Last administered on 03/12/17 13 :25; Start 03/12/17 at 11:00; Stop 03/12/17 at 14:59; Status DC Lidocaine HCl (Xylocaine 2% Inj) 50 ml STK-MED ONCE .ROUTE ; Start 03/12/17 at 13:04; Stop 03/12/17 at 13:05; Status DC Mupirocin (Bactroban 2% Oint) 22 applic STK-MED ONCE .ROUTE ; Start 03/12/17 at 13:06; Stop 03/12/17 at 13:07; Status DC Hydromorphone HCl (Dilaudid Pf Inj) 2 mg STK-MED ONCE .ROUTE ; Start 03/12/17 at 15:18; Stop 03/12/17 at 15:19; Status DC Acetaminophen (Ofirmev Inj) 1,000 mg STK-MED ONCE IV ; Start 03/12/17 at 15:18; Stop 03/12/17 at 15:19; Status DC Vancomycin HCl (Vancomycin Inj) 1,000 mg STK-MED ONCE .ROUTE Last administered on 03/12/17 15:54; Start 03/12/17 at 15:57; Stop 03/12/17 at 15:58; Status DC Neomycin/Polymyxin (Neosporin G.u. Irr) 2 ml STK-MED ONCE TOPICAL Last administered on 03/12/17 15:54; Start 03/12/17 at 15:54; Stop 03/12/17 at 16:15 ; Status DC Fentanyl Citrate (fentaNYL INJ) 250 mcg STK-MED ONCE .ROUTE ; Start 03/12/17 at 17:04; Stop 03/12/17 at 17:05; Status DC Miscellaneous Information ALL NURSING DEPARTME... UNSCH PRN .XX SEE LABEL COMMENTS; Start 03/12/17 at 17:30; Stop 03/13/17 at 17:29; Status DC Morphine Sulfate (*morphine INJ PERIprocedure ONLY) 8 mg STK-MED ONCE .ROUTE Last administered on 03/12/17 17:33; Start 03/12/17 at 17:33; Stop 03/12/17 at 17:34; Status DC Lidocaine HCl (Xylocaine 1% Inj) 10 ml ONCE@0700 ONCE OTHER ; Start 03/13/17 at 07:00; Stop 03/13/17 at 07:01; Status DC Potassium Chloride/Sodium Chloride 1,000 ml @ 75 mls/hr [id number] IV Last administered on 04/04/17 21:16; Start 03/13/17 at 11:30 Polyethylene Glycol/ Electrolytes (Colyte Liq) 4,000 ml ONCE ONCE PEG Last administered on 03/14/17 17:13; Start 03/14/17 at 16:00; Stop 03/14/17 at 16:01 ; Status DC Sodium Chloride 250 ml @ 15 mls/hr ONCE ONCE IV Last administered on 21:30; Start 03/13/17 at 20:00; Stop 03/14/17 at 12:39; Status DC Polyethylene Glycol/ Electrolytes (Colyte Liq) 4,000 ml ONCE ONCE PO Last administered on 03/15/17 17:19; Start 03/15/17 at 16:45; Stop 03/15/17 at 16:48 ; Status DC Propofol (Diprivan 200 Mg/20 ml Inj) 180 mg ONCE ONCE IV Last administered on 03/15/17 16:45; Start 03/15/17 at 16:43; Stop 03/15/17 at 16:45; Status DC Sodium Biphosphate/ Sodium Phosphate (Fleets Enema (Adult)) 133 ml ONCE ONCE RECTAL Last administered on 03/16/17 14:45; Start 03/16/17 at 14:15; Stop at 14:21; Status DC Sodium Biphosphate/ Sodium Phosphate (Fleets Enema (Adult)) 133 ml ONCE ONCE RECTAL Last administered on 03/17/17 09:49; Start 03/17/17 at 08:00; Stop at 08:01; Status DC Propofol (Diprivan 200 Mg/20 ml Inj) 100 mg ONCE ONCE IV PUSH ; Start at 15:00; Stop 03/16/17 at 15:01; Status DC Midazolam HCl (Versed Inj) 2 mg STK-MED ONCE .ROUTE ; Start 03/16/17 at 15:34; Stop 03/16/17 at 15:35; Status DC Vancomycin HCl (Vancomycin Inj) 1,000 mg STK-MED ONCE .ROUTE Last administered on 03/18/17 18:58; Start 03/18/17 at 18:15; Stop 03/18/17 at 18:16; Status DC Fentanyl Citrate (fentaNYL INJ) 200 mcg STK-MED ONCE .ROUTE ; Start 03/18/17 at 19:50; Stop 03/18/17 at 19:51; Status DC Methocarbamol (Robaxin) 500 mg Q8HR PO Last administered on 04/05/17 05:51; Start 03/19/17 at 14:00 Acetaminophen 100 ml @ As Directed STK-MED ONCE IV ; Start 03/24/17 at 09:21; Stop 03/24/17 at 09:22; Status DC Midazolam HCl (Versed Inj) 2 mg STK-MED ONCE .ROUTE ; Start 03/24/17 at 09:21; Stop 03/24/17 at 09:22; Status DC Fentanyl Citrate (fentaNYL INJ) 100 mcg STK-MED ONCE .ROUTE ; Start 03/24/17 at 09:21; Stop 03/24/17 at 09:22; Status DC Fentanyl Citrate (fentaNYL INJ) 100 mcg STK-MED ONCE .ROUTE ; Start 03/24/17 at 09:21; Stop 03/24/17 at 09:22; Status DC Hydromorphone HCl (*DILAUDID PF INJ PERIprocedural ONLY) 1 mg STK-MED ONCE .ROUTE Last administered on 03/24/17 14:53; Start 03/24/17 at 14:53; Stop at 14:54; Status DC Meperidine HCl (*DEMEROL INJ PERIprocedural ONLY) 25 mg STK-MED ONCE .ROUTE Last administered on 03/24/17 15:01; Start 03/24/17 at 15:01; Stop 03/24/17 at 15:02; Status DC Fentanyl Citrate (fentaNYL INJ) 400 mcg STK-MED ONCE .ROUTE ; Start 03/24/17 at 15:01; Stop 03/24/17 at 15:02; Status DC Miscellaneous Information ALL NURSING DEPARTME... UNSCH PRN .XX SEE LABEL COMMENTS; Start 03/24/17 at 14:52; Stop 03/25/17 at 14:51; Status DC Polyethylene Glycol (Miralax) 17 gm DAILY PO ; Start 03/24/17 at 16:30; Status Cancel Acetaminophen (Tylenol) 650 mg Q4H PRN PO fever Last administered on 03/25/17 10:02; Start 03/25/17 at 10:00 Piperacillin Sod/ Tazobactam Sod 100 ml @ 200 mls/hr Q8H IV Last administered on 03/29/17 12:36; Start 03/25/17 at 20:00; Stop 03/29/17 at 14:34; Status DC Furosemide (Lasix Inj) 10 mg ONCE ONCE IV PUSH Last administered on 03/26/17 13:47; Start 03/26/17 at 13:30; Stop 03/26/17 at 13:34; Status DC Furosemide (Lasix Inj) 10 mg UNSCH X1 IV PUSH Last administered on 03/27/17 01 :31; Start 03/26/17 at 17:15; Stop 03/26/17 at 23:59; Status DC Levothyroxine Sodium (Synthroid) 50 mcg DAILY@0600 PO Last administered on 04/05 05:51; Start 03/30/17 at 06:00 Levothyroxine Sodium (Synthroid) 50 mcg ONCE ONCE PO Last administered on 12:55; Start 03/29/17 at 12:00; Stop 03/29/17 at 12:02; Status DC Levofloxacin (Levaquin) 500 mg DAILY PO Last administered on 04/05/17 08:03; Start 03/29/17 at 14:45; Stop 04/07/17 at 14:44 Propofol (Diprivan 200 Mg/20 ml Inj) 200 mg STK-MED ONCE IV ; Start 02/26/17 at 12:00; Stop 03/30/17 at 13:17; Status DC Neostigmine Methylsulfate (Prostigmin Inj) 3 mg STK-MED ONCE IV ; Start 02/26/17 at 12:00; Stop 03/30/17 at 13:17; Status DC Phenylephrine HCl (Neosynephrine/ NS 1000 Mcg/10ml Syr) 1,000 mcg STK-MED ONCE IV ; Start 02/26/17 at 12:00; Stop 03/30/17 at 13:17; Status DC Lactated Ringer's 2,000 ml @ As Directed STK-MED ONCE IV ; Start 02/26/17 at 12: 00; Stop 03/30/17 at 13:17; Status DC Propofol (Diprivan 200 Mg/20 ml Inj) 200 mg STK-MED ONCE IV ; Start 02/28/17 at 12:00; Stop 03/30/17 at 13:46; Status DC Neostigmine Methylsulfate (Prostigmin Inj) 3 mg STK-MED ONCE IV ; Start 02/28/17 at 12:00; Stop 03/30/17 at 13:46; Status DC Lactated Ringer's 2,000 ml @ As Directed STK-MED ONCE IV ; Start 02/28/17 at 12: 00; Stop 03/30/17 at 13:46; Status DC Propofol (Diprivan 200 Mg/20 ml Inj) 400 mg STK-MED ONCE IV ; Start 03/04/17 at 12:00; Stop 03/30/17 at 14:07; Status DC Ephedrine Sulfate (ePHEDrine/NS 25 MG/5 ML SYR) 25 mg STK-MED ONCE IV ; Start at 12:00; Stop 03/30/17 at 14:07; Status DC Phenylephrine HCl (Neosynephrine/ NS 1000 Mcg/10ml Syr) 2,000 mcg STK-MED ONCE IV ; Start 03/04/17 at 12:00; Stop 03/30/17 at 14:08; Status DC Ondansetron HCl (Zofran Inj) 4 mg STK-MED ONCE IV PUSH ; Start 03/04/17 at 12:00 ; Stop 03/30/17 at 14:08; Status DC Propofol (Diprivan 200 Mg/20 ml Inj) 200 mg STK-MED ONCE IV ; Start 03/08/17 at 12:00; Stop 03/30/17 at 14:49; Status DC Ephedrine Sulfate (ePHEDrine/NS 25 MG/5 ML SYR) 50 mg STK-MED ONCE IV ; Start at 12:00; Stop 03/30/17 at 14:49; Status DC Neostigmine Methylsulfate (Prostigmin Inj) 4 mg STK-MED ONCE IV ; Start at 12:00; Stop 03/30/17 at 14:49; Status DC Phenylephrine HCl (Neosynephrine/ NS 1000 Mcg/10ml Syr) 1,000 mcg STK-MED ONCE IV ; Start 03/08/17 at 12:00; Stop 03/30/17 at 14:49; Status DC Ondansetron HCl (Zofran Inj) 4 mg STK-MED ONCE IV PUSH ; Start 03/08/17 at 12:00 ; Stop 03/30/17 at 14:49; Status DC Lactated Ringer's 1,000 ml @ As Directed STK-MED ONCE IV ; Start 03/08/17 at 12 :00; Stop 03/30/17 at 14:49; Status DC Propofol (Diprivan 200 Mg/20 ml Inj) 200 mg STK-MED ONCE IV ; Start 03/10/17 at 12:00; Stop 03/30/17 at 15:08; Status DC Ephedrine Sulfate (ePHEDrine/NS 25 MG/5 ML SYR) 25 mg STK-MED ONCE IV ; Start at 12:00; Stop 03/30/17 at 15:08; Status DC Neostigmine Methylsulfate (Prostigmin Inj) 3 mg STK-MED ONCE IV ; Start at 12:00; Stop 03/30/17 at 15:08; Status DC Phenylephrine HCl (Neosynephrine/ NS 1000 Mcg/10ml Syr) 2,000 mcg STK-MED ONCE IV ; Start 03/10/17 at 12:00; Stop 03/30/17 at 15:08; Status DC Ondansetron HCl (Zofran Inj) 4 mg STK-MED ONCE IV PUSH ; Start 03/10/17 at 12:00 ; Stop 03/30/17 at 15:08; Status DC Lactated Ringer's 1,000 ml @ As Directed STK-MED ONCE IV ; Start 03/10/17 at 12 :00; Stop 03/30/17 at 15:08; Status DC Sodium Chloride 1,000 ml @ As Directed STK-MED ONCE IV ; Start 03/10/17 at 12: 00; Stop 03/30/17 at 15:08; Status DC Propofol (Diprivan 200 Mg/20 ml Inj) 200 mg STK-MED ONCE IV ; Start 03/12/17 at 12:00; Stop 03/30/17 at 15:20; Status DC Ephedrine Sulfate (ePHEDrine/NS 25 MG/5 ML SYR) 25 mg STK-MED ONCE IV ; Start at 12:00; Stop 03/30/17 at 15:20; Status DC Phenylephrine HCl (Neosynephrine/ NS 1000 Mcg/10ml Syr) 1,000 mcg STK-MED ONCE IV ; Start 03/12/17 at 12:00; Stop 03/30/17 at 15:20; Status DC Ondansetron HCl (Zofran Inj) 4 mg STK-MED ONCE IV PUSH ; Start 03/12/17 at 12:00 ; Stop 03/30/17 at 15:20; Status DC Lactated Ringer's 1,000 ml @ As Directed STK-MED ONCE IV ; Start 03/12/17 at 12 :00; Stop 03/30/17 at 15:20; Status DC Propofol (Diprivan 200 Mg/20 ml Inj) 200 mg STK-MED ONCE IV ; Start 03/18/17 at 12:00; Stop 03/30/17 at 15:38; Status DC Ondansetron HCl (Zofran Inj) 4 mg STK-MED ONCE IV PUSH ; Start 03/18/17 at 12:00 ; Stop 03/30/17 at 15:38; Status DC Neostigmine Methylsulfate (Prostigmin Inj) 3 mg STK-MED ONCE IV ; Start at 12:00; Stop 03/30/17 at 15:38; Status DC Phenylephrine HCl (Neosynephrine/ NS 1000 Mcg/10ml Syr) 1,000 mcg STK-MED ONCE IV ; Start 03/18/17 at 12:00; Stop 03/30/17 at 15:38; Status DC Oxycodone/ Acetaminophen (Percocet 5-325 Mg) 1 tab Q4H PRN PO pain 3 to 5; Start 04/02/17 at 13:00 Oxycodone/ Acetaminophen (Percocet 10-325 Mg) 1 tab Q4H PRN PO pain 6-10 Last administered on 04/05/17 08:03; Start 04/02/17 at 13:00 Magnesium Sulfate/ Dextrose 100 ml @ 100 mls/hr Q1H IV Last administered on 16:15; Start 04/03/17 at 14:00; Stop 04/03/17 at 15:59; Status DC Sodium Chloride (Sodium Chloride) 1 gm TID PO Last administered on 04/05/17t 08 :03; Start 04/04/17 at 14:00 Calcium Chloride 2 gm/Sodium Chloride 120 ml @ 120 mls/hr ONCE ONCE IV Last administered on 04/04/17t 15:45; Start 04/04/17 at 14:00; Stop 04/04/17 at 14:59 ; Status DC Urinary Catheter: No A/P Problem List: (1) Sepsis ICD Code: A41.9 - Sepsis, unspecified organism Status: Acute (2) Right foot infection ICD Code: L08.9 - Local infection of the skin and subcutaneous tissue, unspecified Status: Acute (3) Encephalopathy ICD Code: G93.40 - Encephalopathy, unspecified Status: Acute (4) Alcoholism ICD Code: F10.20 - Alcohol dependence, uncomplicated Status: Chronic (5) Hypothyroidism ICD Code: E03.9 - Hypothyroidism, unspecified Assessment and Plan 61-year-old male admitted secondary to numerous infections including bilateral hands and right ankle. Previous history of right ankle. Patient also had encephalopathy secondary to infection and alcohol withdrawal time of admit. Encephalopathy has improved. Continued treatments of infections are ongoing. Status post I&D of right elbow. Continue wound care. Robaxin started for muscle spasms. 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 distant showering of emboli to other joints. MRSA bacteremia Right ankle hardware infection, s/p partial removal of hardware. Deeper hardware embedded. SP RIGHT BKA Bilateral UE hand abscess and tenosynovitis, septic arthritis s.p multiple debridements. Recent fever on 03/25 (resolved) CXR showed possible b/l infiltrate but no clinical respiratory symptoms, UTI with + UA , lactic acidosis (improved), on zosyn with dapto Antibiotic per ID Plan for long-term IV antibiotics, rifampin for 6 weeks Likely will need nursing home facility placement Continue oxycodone and Dilaudid for pain May still need further surgical intervention Hand surgeon following Podiatry following ID following Multiple surgeries thus far: - podiatry Dr. Reyes/Dr. Gamez on 02/26, 02/28, 03/04 - hand surgeon Dr. Bullock on 02/26, 02/28, 03/04, 03/08, 03/10 Anemia Most recent hemoglobin is 8.0 Follow CBC Status post blood transfusion Acute Toxic/Metabolic Encephalopathy secondary to Sepsis Acute Alcohol Withdrawal Resolved Hypernatremia CONTINUE ON NACL TABS Hypokalemia Replace as needed Continue to monitor REPLACE Hypertension Continue clonidine and Coreg, cardiology initiate low dose lisinopril, monitor renal function Follow blood pressures Adjust as needed for control Mild Systolic CHF Scrotal edema EF of 40-45% with global hypokinesis found on 02/28/17 Continue beta amarjit Following BMP, consider initiating diuresis, (patient recently had fever and lactic acidosis) HYPOTHYROIDISM START SYNTHROID 50MCG DAILY THADDEUS possibly vanco induced Monitor renal function Avoid nephrotoxins Previous event was likely secondary to ATN Nephrology following Urinary retention Monitor urine output Hepatitis C Standard precautions Dysphagia: Improved patient on regular diet Dietitian to assess tapering tube feed DVT Prophylaxis Lovenox AM LABS CONTINUE CURRENT CARE DC PEG CONSULT GI TO REMOVE?- PEG OUT 9-7 pain control add oral meds HYPOMAG- REPLACE BY PROTOCOLS PT AND OT TO EVAL AND TREAT HYPOPHOSPHATEMIA WILL REPLACE AM LABS DW RN AND PT Problem Qualifiers (1) Sepsis: Isaac Pink DO Apr 05, 2017 12:41
[2017-04-05] MEDS: ENOXAPARIN SODIUM 40 MG/0.4 ML SYRINGE SQ SCH (13:17)
--- NOTE | 2017-04-05 15:32 | PD.ORT.PN ---
Subjective Subjective Remarks Patient reports significant improvement in pain right arm. Mild stiffness. Objective Vitals Vital Signs Date Time Temp Pulse Resp B/P (MAP) Pulse Ox O2 Delivery O2 Flow Rate FiO2 04/05/17 12:04 99.1 67 17 124/68 (86) 96 04/05/17 09:18 Room Air 21 04/05/17 08:04 99.0 78 17 107/62 (77) 95 04/05/17 04:00 99.0 81 20 146/70 (95) 96 04/05/17 00:00 98.3 76 20 114/71 (85) 96 04/05/17 00:00 Room Air 04/04/17 20:00 98.4 66 20 116/63 (80) 96 04/04/17 20:00 Room Air 04/04/17 16:04 96.7 72 18 129/80 (96) 97 I/O 04/04/17 04/04/17 04/04/17 04/05/17 04/05/17 04/05/17 07:00 15:00 23:00 07:00 15:00 23:00 Intake Total 800 ml 280 ml 1550 ml Output Total 2300 ml 1700 ml 4000 ml Balance -1500 ml -1420 ml -2450 ml Intake Oral 280 ml 650 ml IV Total 800 ml 900 ml Output Urine Total 2300 ml 1700 ml 4000 ml # Bowel Movements 1 0 Result Diagram: 04/05/1771604/05/1717 Objective Remarks right wrist with minimal drainage and just serosanguinous drainage on the dressing, compartments soft and compressible, no erythema and nearly full AROM of fingers abby in place with 1 area with steri-strips other wounds dry and healing right hand and forearm; left hand wound healed and full AROM of fingers and wrist on the left no swelling right or left hands Assessment & Plan Problem List: (1) Infectious tenosynovitis of right wrist extensor ICD Codes: M65.131 - Other infective (teno)synovitis, right wrist Status: Chronic Plan: continue IV antibiotics per ID Wound right wrist cleaned with normal saline and redressed with sterile dry [id number] , Gillian, Levy and velcro right wrist splint reapplied Continue daily dressing changes Dr Cheema to see this week He is eating and as nutrition improves, his wounds should as well. 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
[2017-04-05 16:04] VITALS: BP 120/64; PULSE 68; RESP 17; TEMP 99; O2SAT 96
[2017-04-05 20:00] VITALS: BP 135/76; PULSE 61; RESP 20; TEMP 98.5; O2SAT 96
[2017-04-06] VITALS: BP 112/64; PULSE 69; RESP 20; TEMP 98; O2SAT 96
[2017-04-06] MEDS: PANTOPRAZOLE SODIUM 40 MG VIAL IV PUSH SCH ×2 (00:33→22:17)
[2017-04-06] MEDS: HYDROmorphone HCL PF 1 MG/ML VIAL IV PUSH PRN ×6 (00:33→23:47)
[2017-04-06] MEDS: oxyCODONE/ACETAMINOPHEN 10 MG/325 MG TAB PO PRN ×4 (03:23→22:17)
[2017-04-06] MEDS: NS + KCL 20 MEQ INJ 1,000 ML IV SCH ×3 (03:23→22:19)
[2017-04-06 04:00] VITALS: BP 112/61; PULSE 65; RESP 20; TEMP 98; O2SAT 96
[2017-04-06] MEDS: METHOCARBAMOL 500 MG TAB PO SCH ×3 (05:05→22:17)
[2017-04-06] MEDS: LEVOTHYROXINE SODIUM 50 MCG TAB PO SCH (05:05)
[2017-04-06] MEDS: cloNIDine HCL 0.3 MG TAB PO SCH ×3 (05:05→22:18)
[2017-04-06 08:04] VITALS: BP 111/65; PULSE 74; RESP 16; TEMP 98.3; O2SAT 97
[2017-04-06] MEDS: LEVOFLOXACIN 500 MG TAB PO SCH (08:35)
[2017-04-06] MEDS: CARVEDILOL 6.25 MG TAB PO SCH ×2 (08:35→22:18)
[2017-04-06] MEDS: MULTIVITAMIN TAB PO SCH (08:35)
[2017-04-06] MEDS: SODIUM CHLORIDE 1 GRAM TAB PO SCH ×3 (08:35→16:27)
[2017-04-06] MEDS: MUPIROCIN 2% OINT 1 APPLIC/GM SYR NASAL SCH ×2 (08:35→22:16)
[2017-04-06] MEDS: LISINOPRIL 5 MG TAB PO SCH (08:35)
[2017-04-06] MEDS: THIAMINE HCL 100 MG TAB PO SCH (08:35)
[2017-04-06 09:44] LABS: AUTOMATED NEUTROPHIL # 6.2 TH/MM3 (1.8-7.7); BASOPHIL # 0.1 TH/MM3 (0-0.2); BASOPHIL % 0.7 % (0.0-2.0); EOSINOPHIL # 0.2 TH/MM3 (0-0.4); EOSINOPHIL % 2.2 % (0.0-4.0); HEMATOCRIT 25.2 % (39.0-51.0); HEMO FLAGS DIFF FINAL; LYMPH % 13.7 % (9.0-44.0); LYMPHOCYTE # 1.1 TH/MM3 (1.0-4.8); MEAN CELL VOLUME 87.6 FL (80.0-100.0); MEAN CORPUSCULAR HEMOGLOBIN 29.4 PG (27.0-34.0); MEAN CORPUSCULAR HGB CONC 33.6 % (32.0-36.0); MONO % 8.2 % (0.0-8.0); NEUT % 75.2 % (16.0-70.0); PLATELET COUNT 272 TH/MM3 (150-450); RED BLOOD COUNT 2.88 MIL/MM3 (4.50-5.90); RED CELL DISTRIBUTION WIDTH 17.6 % (11.6-17.2); WHITE BLOOD COUNT 8.3 TH/MM3 (4.0-11.0)
[2017-04-06 10:21] LABS: BICARBONATE 25.7 MEQ/L (21.0-32.0); CALCIUM-PROTEIN CORRECTED 8.1 MG/DL (8.5-10.1); MAGNESIUM 1.6 MG/DL (1.5-2.5); POTASSIUM 4.3 MEQ/L (3.5-5.1); TOTAL BILIRUBIN ADULT 0.3 MG/DL (0.2-1.0)
[2017-04-06] MEDS: ENOXAPARIN SODIUM 40 MG/0.4 ML SYRINGE SQ SCH (11:48)
[2017-04-06 12:05] VITALS: BP 123/65; PULSE 71; RESP 16; TEMP 98.5; O2SAT 96
[2017-04-06] MEDS: DAPTOMYCIN IV SCH (12:43)
[2017-04-06] MEDS: SODIUM CHLORIDE 0.9% IV SCH (12:43)
--- NOTE | 2017-04-06 15:26 | HHI.PR ---
Subjective Remarks Follow up on MRSA endocarditis sepsis and bacteremia, right ankle hardware infection, bilateral upper extremity hand abscess and Pricila synovitis septic arthritis, catheter associated UTI acute renal failure hypertension alcoholism patient Is doing okay today, oral diet resumed after he past speech, consider tapering to proceed if dietitian agreed - NO NEW COMPLAINTS CONTINUE ANTIBIOTICS AND WOUND CARE DW RN AND PATIENT 9- RIGHT BKA DRESSED NO NEW COMPLAINTS NO SOB, NO CHEST PAIN HYPOTHYROID- START SYNTHROID 50MCG 03-30 NO NEW COMPLAINTS HAS CHRONIC BACK PAIN NO SOB, NO CHEST PAIN DW RN AND PATIENT CONTINUE ANTIBIOTICS -6 CONSULT GI REGARDING PEG REMOVAL AM LABS CHRONIC PAIN NO SOB, NO CHEST PAIN CONTINUE ON ANTIBIOTICS 04-01 HAD PEG TUBE REMOVED BY GI NO SOB, NO CHEST PAIN DW RN AND PT 9- complains of pain needs oral meds 9- PT AND OT TO EVAL AND TREAT PAIN BETTER CONTROLLED NO NEW COMPLAINTS TODAY DW PT AND RN 9 HYPONATREMIA AND HYPOCALCEMIA WILL REPLACE NO NEW COMPLAINTS DW RN AND PT 04-05 NEEDS TO TAKE NACL TABS DW RN AND PT -12 VERY SLOW IMPROVEMENT ON NA WITH NACL TABS BUT IS COMING UP DW RN AND PT NEEDS CONTINUED ANTIBIOTICS HAS CHRONIC BACK PAIN CONTINUE CURRENT PAIN MEDS AND MUSCLE RELAXERS Objective Vitals Vital Signs Date Time Temp Pulse Resp B/P (MAP) Pulse Ox O2 Delivery O2 Flow Rate FiO2 04/06/17 12:05 98.5 71 16 123/65 (84) 96 04/06/17 08:32 Room Air 04/06/17 08:04 98.3 74 16 111/65 (80) 97 04/06/17 04:00 98.0 65 20 112/61 (78) 96 04/06/17 04:00 Room Air 04/06/17 00:00 Room Air 04/06/17 00:00 98.0 69 20 112/64 (80) 96 04/05/17 20:00 Room Air 04/05/17 20:00 Room Air 04/05/17 20:00 98.5 61 20 135/76 (95) 96 04/05/17 16:04 99.0 68 17 120/64 (82) 96 I/O 04/05/17 04/05/17 04/05/17 04/06/17 04/06/17 04/06/17 07:00 15:00 23:00 07:00 15:00 23:00 Intake Total 1550 ml 360 ml 2380 ml Output Total 4000 ml 1500 ml 2700 ml Balance -2450 ml -1140 ml -320 ml Intake Oral 650 ml 360 ml 480 ml IV Total 900 ml 1900 ml Output Urine Total 4000 ml 1500 ml 2700 ml # Bowel Movements 0 0 Result Diagram: 04/06/17 0830 04/06/17 0830 Other Results Laboratory Tests Test 04/04/17 09:20 04/05/17 07:17 04/06/17 08:30 White Blood Count 8.3 TH/MM3 9.6 TH/MM3 8.3 TH/MM3 Red Blood Count 3.07 MIL/MM3 3.19 MIL/MM3 2.88 MIL/MM3 Hemoglobin 9.1 GM/DL 9.3 GM/DL 8.5 GM/DL Hematocrit 27.2 % 28.3 % 25.2 % Mean Corpuscular Volume 88.7 FL 88.6 FL 87.6 FL Mean Corpuscular Hemoglobin 29.6 PG 29.2 PG 29.4 PG Mean Corpuscular Hemoglobin Concent 33.4 % 32.9 % 33.6 % Red Cell Distribution Width 17.4 % 17.5 % 17.6 % Platelet Count 272 TH/MM3 297 TH/MM3 272 TH/MM3 Mean Platelet Volume 8.4 FL 8.8 FL 8.1 FL Neutrophils (%) (Auto) 73.6 % 73.6 % 75.2 % Lymphocytes (%) (Auto) 14.2 % 14.4 % 13.7 % Monocytes (%) (Auto) 7.9 % 9.1 % 8.2 % Eosinophils (%) (Auto) 3.4 % 2.3 % 2.2 % Basophils (%) (Auto) 0.9 % 0.6 % 0.7 % Neutrophils # (Auto) 6.1 TH/MM3 7.1 TH/MM3 6.2 TH/MM3 Lymphocytes # (Auto) 1.2 TH/MM3 1.4 TH/MM3 1.1 TH/MM3 Monocytes # (Auto) 0.7 TH/MM3 0.9 TH/MM3 0.7 TH/MM3 Eosinophils # (Auto) 0.3 TH/MM3 0.2 TH/MM3 0.2 TH/MM3 Basophils # (Auto) 0.1 TH/MM3 0.1 TH/MM3 0.1 TH/MM3 CBC Comment DIFF FINAL DIFF FINAL DIFF FINAL Differential Comment Blood Urea Nitrogen 11 MG/DL 11 MG/DL 11 MG/DL Creatinine 0.61 MG/DL 0.56 MG/DL 0.58 MG/DL Random Glucose 118 MG/DL 92 MG/DL 88 MG/DL Total Protein 5.4 GM/DL 6.2 GM/DL 5.8 GM/DL Albumin 1.2 GM/DL 1.5 GM/DL 1.4 GM/DL Calcium Level 7.8 MG/DL 7.8 MG/DL 7.4 MG/DL Phosphorus Level 2.5 MG/DL 3.2 MG/DL 3.0 MG/DL Magnesium Level 1.6 MG/DL 1.7 MG/DL 1.6 MG/DL Alkaline Phosphatase 87 U/L 92 U/L 89 U/L Aspartate Amino Transf (AST/SGOT) 20 U/L 22 U/L 20 U/L Alanine Aminotransferase (ALT/SGPT) 21 U/L 20 U/L 19 U/L Total Bilirubin 0.2 MG/DL 0.2 MG/DL 0.3 MG/DL Sodium Level 122 MEQ/L 123 MEQ/L 124 MEQ/L Potassium Level 4.2 MEQ/L 4.4 MEQ/L 4.3 MEQ/L Chloride Level 92 MEQ/L 92 MEQ/L 91 MEQ/L Carbon Dioxide Level 20.8 MEQ/L 24.3 MEQ/L 25.7 MEQ/L Anion Gap 9 MEQ/L 7 MEQ/L 7 MEQ/L Estimat Glomerular Filtration Rate 134 ML/MIN 147 ML/MIN 142 ML/MIN Protein Corrected Calcium 8.1 MG/DL Imaging Last Impressions Chest X-Ray 03/29/17 0000 Signed Impressions: Service Date/Time: Wednesday, March 29, 2017 12:17 - CONCLUSION: Stable chest. Isaac Stevenson MD FACR Tumor Localization 03/22/17 0000 Signed Impressions: Service Date/Time: Wednesday, March 22, 2017 13:03 - CONCLUSION: Nondiagnostic examination secondary to patient refusal Harry Lucio MD Abdomen X-Ray 03/08/17 0000 Signed Impressions: Service Date/Time: Wednesday, March 08, 2017 10:30 - CONCLUSION: Nonspecific, negative for obstruction or ileus. Isaac Stevenson MD FACR Lower Extremity CT 03/01/17 0000 Signed Impressions: Service Date/Time: Wednesday, March 01, 2017 11:12 - CONCLUSION: 1. No evidence of organized fluid collections to suggest an abscess. 2. Extensive soft tissue swelling surrounding the ankle and extending to the forefoot especially along the lateral aspect. 3. No erosive or destructive bone changes. 4. Bone defects compatible with previous excision device. Blake Rider MD Ankle X-Ray 02/26/17 0000 Signed Impressions: Service Date/Time: Sunday, February 26, 2017 17:15 - CONCLUSION: I see no retained surgical instruments. Isaac Stevenson MD FACR Upper Extremity Ultrasound 02/25/17 1734 Signed Impressions: Service Date/Time: February 17:54 - CONCLUSION: There is a thin fluid collection within the focal area of soft tissue swelling 2nd digit. Oscar Cassidy MD Hand X-Ray 02/25/17 0000 Signed Impressions: Service Date/Time: February 18:59 - CONCLUSION: No gross bony abnormality. Oscar Cassidy MD Lower Extremity Ultrasound 02/24/17 0000 Signed Impressions: Service Date/Time: Friday, February 24, 2017 13:41 - CONCLUSION: Negative for deep venous thrombosis. Isaac Stevenson MD FACR Head CT 02/24/17 0000 Signed Impressions: Service Date/Time: Friday, February 24, 2017 16:08 - CONCLUSION: 1. No acute intracranial abnormality. 2. Probable large mucocele in the sphenoid sinus. Ty Hankins MD Abdomen/Pelvis CT 02/24/17 0000 Signed Impressions: Service Date/Time: Friday, February 24, 2017 16:16 - CONCLUSION: 1. Marked gaseous distension of large and small bowel most suggestive of ileus. 2. There is no free air. 3. 2.2 cm left adrenal mass. 4. Distended bladder. Isaac Stevenson MD FACR Objective Remarks GENERAL: This is a well-nourished, well-developed patient, in no apparent distress. SKIN: No rashes, warm and dry HEAD: Atraumatic. Normocephalic. EYES: Pupils equal round and reactive. Extraocular motions intact. No scleral icterus. TONGUE MIDLINE- ORAL MUCOSA MOIST ENT: Nose without bleeding, or drainage, Airway patent. NECK: Trachea midline. Supple CARDIOVASCULAR: Regular rate and rhythm without murmurs, gallops, or rubs. S1, S2 NO S3 OR S4 NO HEAVE RESPIRATORY: Fair air entry bilaterally. No wheezes, rales, or rhonchi. GASTROINTESTINAL: Abdomen soft, non-tender, nondistended. Positive bowel sounds PEG IS GONE NOW GROIN SWOLLEN SCROTAL AREA-ELEVATED WITH BATH TOWEL- SANCHEZ IN PLACE MUSCULOSKELETAL:No cyanosis, or edema. Right and left arms are bandaged home right arm in lifting sling. Right LE IS BANDAGED HAS RIGHT BKA NEUROLOGICAL: Awake and alert. Moves all extremity. Normal speech.no focal neurological deficit : Scrotum swelling Procedures 03/10/2017 - Dr. Bullock exploration, wash, excisional debridement extensor tenosynovium right wrist/forearm/hand 03/08/17 - Dr. Bullock- exploration, wash, excisional debridement skin, subcutaneous tissue, extensor tenosynovitis right wrist and hand. Findings: necrotic tissue, minimal purulence, extensor tenosynovitis right wrist/hand 03/04/17 - Dr Gamez - Right leg and incision and drainage. Right foot delayed primary closure x3 03/04/17 - Dr. Bullock - Extensor tenosynovectomy second, third, fourth extensor compartments right wrist and excisional debridement wash index finger metacarpal phalangeal joint, excisional wash and excisional debridement left hand. 02/28/17 - Dr. Reyes - Right ankle wound debridement and washout. Implantation of antibiotic vancomycin beads. 02/28/17 - Dr. Bullock - Exploration, wash, excisional debridement index finger metacarpophalangeal joint right hand; Exploration, wash, excisional debridement metacarpophalangeal joint left index finger; Exploration, wash, excisional debridement extensor pollicis longus tendon right thumb and hand. 02/26/17 - Dr. Reyes - Right ankle incision and drainage, arthrotomy, removal infected hardware, bone biopsy. 02/26/17 - Dr. Bullock - Exploration, incision and drainage right hand abscess, Arthrotomy wash metacarpal phalangeal joint right index finger, Arthrotomy wash metacarpal phalangeal joint left index finger. Medications and IVs Current Medications Sodium Chloride 1,000 ml @ 999 mls/hr BOLUS ONCE IV Last administered on 13:38; Start 02/24/17 at 13:45; Stop 02/24/17 at 14:45; Status DC IV Flush (NS Flush) 2 ml UNSCH PRN IV FLUSH FLUSH AFTER USING IV ACCESS Last administered on 02/24/17 13:38; Start 02/24/17 at 13:45 Vancomycin HCl 1000 mg/Sodium Chloride 250 ml @ 250 mls/hr ONCE STAT IV Last administered on 02/24/17 15:49; Start 02/24/17 at 15:35; Stop 02/24/17 at 16:34; Status DC Cefepime HCl 2000 mg/Sodium Chloride 100 ml @ 200 mls/hr ONCE STAT IV Last administered on 02/24/17 16:36; Start 02/24/17 at 15:35; Stop 02/24/17 at 16:04; Status DC Potassium Bicarb/ Potassium Chloride (K-Lyte Cl Eff) 50 meq ONCE ONCE PO Last administered on 02/24/17 15:56; Start 02/24/17 at 16:00; Stop 02/24/17 at 16: 01; Status DC Iohexol (Omnipaque 350 Inj) 97 ml STK-MED ONCE IV Last administered on 16:29; Start 02/24/17 at 16:29; Stop 02/24/17 at 16:30; Status DC Sodium Chloride 1,000 ml @ 125 mls/hr Q8H IV Last administered on 03/02/17 09: 33; Start 02/24/17 at 18:00; Stop 03/02/17 at 13:08; Status DC Ondansetron HCl (Zofran Inj) 4 mg Q8HR PRN IV PUSH NAUSEA; Start 02/24/17 at 18: 00 Thiamine HCl (Vitamin B1) 100 mg ONCE ONCE PO Last administered on 02/24/17 20 :20; Start 02/24/17 at 20:15; Stop 02/24/17 at 20:16; Status DC Thiamine HCl (Vitamin B1) 100 mg DAILY PO Last administered on 04/06/17 08:35 ; Start 02/25/17 at 09:00 Potassium Chloride 100 ml @ 50 mls/hr Q2H IV Last administered on 02/24/17 22: 59; Start 02/24/17 at 20:30; Stop 02/25/17 at 00:29; Status DC Pharmacy Profile Note 0 ml @ 0 mls/hr UNSCH OTHER ; Start 02/24/17 at 20:15; Stop 03/02/17 at 13:23; Status DC Cefepime HCl 2000 mg/Sodium Chloride 100 ml @ 200 mls/hr Q12H IV Last administered on 02/27/17 05:51; Start 02/25/17 at 07:00; Stop 02/27/17 at 14:53; Status DC Vancomycin HCl 1500 mg/Sodium Chloride 515 ml @ 257.5 mls/ hr Q18H IV Last administered on 02/25/17 10:30; Start 02/25/17 at 10:00; Stop 02/25/17 at 11:30; Status DC Miscellaneous Information SPECIFIC LAB TO BE DRAWN:VANCO TROUGH DATE TO BE DR... ONCE ONCE .XX ; Start 02/26/17 at 21:45; Stop 02/26/17 at 21:46; Status DC Flumazenil (Romazicon Inj) 0.2 mg Q1M PRN IV PUSH SEE LABEL COMMENTS; Start 02/25/17 at 09:15 Lorazepam (Ativan) 1 mg Q4H PRN PO agitation Last administered on 03/20/17 03: 18; Start 02/25/17 at 09:15 Lorazepam (Ativan Inj) 1 mg Q4H PRN IV PUSH agitation when not taking po Last administered on 03/05/17 02:41; Start 02/25/17 at 09:15 Lorazepam (Ativan) 2 mg Q2H PRN PO CIWA 11-14; Start 02/25/17 at 09:15; Stop 02/28/17 at 07:44; Status DC Lorazepam (Ativan Inj) 2 mg Q2H PRN IV PUSH CIWA 11-14 Last administered on 02/26 18:14; Start 02/25/17 at 09:15; Stop 02/28/17 at 07:44; Status DC Lorazepam (Ativan Inj) 2 mg Q1H PRN IV PUSH CIWA 15-20 Last administered on 02/25 21:37; Start 02/25/17 at 09:15; Stop 02/28/17 at 07:44; Status DC Lorazepam (Ativan Inj) 2 mg Q15M PRN IV PUSH CIWA > 20 Last administered on 02/26 06:25; Start 02/25/17 at 09:15; Stop 02/28/17 at 07:44; Status DC Multivitamins (Theragran) 1 tab DAILY PO Last administered on 04/06/17 08:35; Start 02/26/17 at 09:00 Acetaminophen (Tylenol) 650 mg Q4H PRN PO FEVER Last administered on 03/07/17 04:47; Start 02/25/17 at 09:15; Stop 03/12/17 at 10:47; Status DC Lisinopril (Prinivil) 10 mg DAILY PO ; Start 02/26/17 at 09:00; Stop 03/08/17 at 21:09; Status DC Enoxaparin Sodium (Lovenox Inj) 40 mg Q24H SQ Last administered on 03/07/17 10 :00; Start 02/25/17 at 10:00; Stop 03/10/17 at 12:17; Status DC Vancomycin HCl 1500 mg/Sodium Chloride 515 ml @ 257.5 mls/ hr Q12H IV Last administered on 02/26/17 09:42; Start 02/25/17 at 22:00; Stop 02/26/17 at 12:06; Status DC Miscellaneous Information SPECIFIC LAB TO BE BIA... ONCE ONCE .XX Last administered on 02/26/17 09:45; Start 02/26/17 at 09:45; Stop 02/26/17 at 09:46; Status DC Chlordiazepoxide (Librium) 25 mg Q8H PO ; Start 02/25/17 at 17:00; Stop 02/25/17 at 20:24; Status DC Gentamicin Sulfate 70 mg/ Sodium Chloride 101.75 ml @ 100 mls/ hr ONCE ONCE IV Last administered on 02/25/17 18:51; Start 02/25/17 at 18:30; Stop 02/25/17 at 19:31; Status DC Dexmedetomidine HCl 200 mcg/ Sodium Chloride 52 ml @ 0 mls/hr TITRATE IV Last administered on 02/27/17 13:55; Start 02/25/17 at 17:30; Stop 03/09/17 at 23:34; Status DC Acetaminophen (Ofirmev Inj) 650 mg Q6H PRN IV TEMP >101 Last administered on 20:12; Start 02/25/17 at 21:00 Iohexol (Omnipaque 350 Inj) 75 ml STK-MED ONCE IV Last administered on 21:15; Start 02/25/17 at 21:15; Stop 02/25/17 at 21:16; Status DC Potassium Chloride 100 ml @ 50 mls/hr Q2H PRN IV For Potassium 2.8 - 3.2 mEq/L ; Start 02/25/17 at 22:45; Stop 03/01/17 at 23:53; Status DC Potassium Chloride 100 ml @ 50 mls/hr Q2H PRN IV For Potassium 2.8 - 3.2 mEq/ L Last administered on 02/28/17 12:32; Start 02/25/17 at 22:45; Stop 03/01/17 at 23:53; Status DC Potassium Bicarb/ Potassium Chloride (K-Lyte Cl Eff) 50 meq UNSCH PRN PO For Potassium 3.3 - 3.5 mEq/L; Start 02/25/17 at 22:45; Stop 03/01/17 at 23:53; Status DC Potassium Chloride 100 ml @ 25 mls/hr UNSCH PRN IV For Potassium 3.3 - 3.5 mEq /L; Start 02/25/17 at 22:45; Stop 03/01/17 at 23:53; Status DC Potassium Chloride 100 ml @ 50 mls/hr Q2H PRN IV For Potassium 3.3 - 3.5 mEq/ L Last administered on 02/28/17 06:39; Start 02/25/17 at 22:45; Stop 03/01/17 at 23:53; Status DC Magnesium Sulfate 4 gm/Sodium Chloride 100 ml @ 50 mls/hr UNSCH PRN IV For Magnesium 0.9 - 1.1 mg/dL; Start 02/25/17 at 22:45; Stop 03/01/17 at 23:53; Status DC Magnesium Oxide (Mag-Ox) 800 mg UNSCH PRN PO For Magnesium 1.2 - 1.6 mg/dL; Start 02/25/17 at 22:45; Stop 03/01/17 at 23:53; Status DC Magnesium Sulfate 2 gm/Sodium Chloride 100 ml @ 50 mls/hr UNSCH PRN IV For Magnesium 1.2 - 1.6 mg/dL; Start 02/25/17 at 22:45; Stop 03/01/17 at 23:53; Status DC Potassium Phosphate (K-Phos) 2,000 mg Q4H PRN PO For Phosphorus < 2.5 mg/dL; Start 02/25/17 at 22:45; Stop 03/01/17 at 23:53; Status DC Sodium Phosphate 30 mmol/Sodium Chloride 250 ml @ 42 mls/hr UNSCH PRN IV For Phosphorus < 2.5 mg/dL Last administered on 02/26/17 23:19; Start 02/25/17 at 22: 45; Stop 03/01/17 at 23:53; Status DC Potassium Phosphate (K-Phos) 2,000 mg UNSCH PRN PO/TUBE SEE LABEL COMMENTS; Start 02/25/17 at 22:45; Stop 03/01/17 at 23:53; Status DC Potassium Phosphate 30 mmol/ Sodium Chloride 260 ml @ 42 mls/hr UNSCH PRN IV SEE LABEL COMMENTS; Start 02/25/17 at 22:45; Stop 03/01/17 at 23:53; Status DC Labetalol HCl (Trandate Inj) 10 mg Q6H PRN IV PUSH SBP >165; Start 02/25/17 at 23:15 Pantoprazole Sodium (Protonix Inj) 40 mg Q24H IV PUSH Last administered on 04/06 00:33; Start 02/26/17 at 00:00 Miscellaneous Information Patient in critical care unit? Ass... [id number] .XX ; Start 02/26/17 at 07:15 Mupirocin (Bactroban Nasal 2% Oint) 1 applic BID NASAL Last administered on 08:35; Start 02/26/17 at 09:00 Chlorhexidine Gluconate (Chlorhexidine 2% Cloth) 3 pack DAILY@04 TOPICAL Last administered on 03/03/17 04:00; Start 02/27/17 at 04:00; Stop 03/03/17 at 04:01; Status DC Chlorhexidine Gluconate (Chlorhexidine 2% Cloth) 3 pack UNSCH PRN TOPICAL HYGIENIC CARE; Start 02/26/17 at 07:15; Stop 03/03/17 at 07:07; Status DC Lidocaine HCl (Xylocaine 2% Inj) 50 ml STK-MED ONCE .ROUTE ; Start 02/26/17 at 09 :35; Stop 02/26/17 at 09:36; Status DC Bupivacaine HCl (Marcaine Pf 0.5% Inj) 60 ml STK-MED ONCE .ROUTE ; Start at 09:35; Stop 02/26/17 at 09:36; Status DC Mupirocin (Bactroban 2% Oint) 22 applic STK-MED ONCE .ROUTE ; Start 02/26/17 at 09:35; Stop 02/26/17 at 09:36; Status DC Vancomycin HCl 1250 mg/Sodium Chloride 262.5 ml @ 250 mls/hr Q12H IV Last administered on 03/02/17 09:33; Start 02/26/17 at 22:00; Stop 03/02/17 at 13:23; Status DC Miscellaneous Information SPECIFIC LAB TO BE BIA... ONCE ONCE .XX Last administered on 02/27/17 22:46; Start 02/27/17 at 21:45; Stop 02/27/17 at 21:46; Status DC Neomycin/Polymyxin (Neosporin G.u. Irr) 3 ml STK-MED ONCE TOPICAL Last administered on 02/26/17 13:06; Start 02/26/17 at 13:06; Stop 02/26/17 at 16:26; Status DC Neomycin/Polymyxin (Neosporin G.u. Irr) 4 ml STK-MED ONCE TOPICAL Last administered on 02/26/17 15:47; Start 02/26/17 at 15:47; Stop 02/26/17 at 16:26; Status DC Fentanyl Citrate (fentaNYL INJ) 250 mcg STK-MED ONCE .ROUTE ; Start 02/26/17 at 18:16; Stop 02/26/17 at 18:17; Status DC Fentanyl Citrate (fentaNYL INJ) 100 mcg STK-MED ONCE .ROUTE ; Start 02/26/17 at 18:16; Stop 02/26/17 at 18:17; Status DC Miscellaneous Information ALL NURSING DEPARTME... UNSCH PRN .XX SEE LABEL COMMENTS; Start 02/26/17 at 17:57; Stop 02/27/17 at 17:56; Status DC Clonidine (Catapres) 0.3 mg Q8HR PO Last administered on 04/06/17 12:43; Start 02/26/17 at 22:11 Diazepam (Valium) 5 mg Taper DAILY PO Last administered on 03/06/17 09:49; Start 02/26/17 at 22:15; Stop 03/06/17 at 22:14; Status DC Water (Free Water) 200 ml Q8HR G-TUBE Last administered on 02/27/17 22:31; Start 02/27/17 at 06:55; Stop 02/28/17 at 07:41; Status DC Rifampin 300 mg/ Sodium Chloride 100 ml @ 100 mls/hr Q12H IV Last administered on 03/02/17 14:41; Start 02/27/17 at 15:00; Stop 03/02/17 at 16:41; Status DC Oxycodone HCl (Roxicodone) 5 mg Q4H PRN PO pain 1-5 Last administered on 09:26; Start 02/28/17 at 07:45 Hydromorphone HCl (Dilaudid Pf Inj) 0.5 mg Q3H PRN IV PUSH pain 6-10 or not taking po Last administered on 04/06/17 12:44; Start 02/28/17 at 07:45 Water (Free Water) 300 ml Q4HR G-TUBE Last administered on 03/02/17 20:00; Start 02/28/17 at 08:00; Stop 03/02/17 at 23:07; Status DC Vancomycin HCl (Vancomycin Inj) 1,000 mg STK-MED ONCE .ROUTE Last administered on 02/28/17 09:01; Start 02/28/17 at 09:01; Stop 02/28/17 at 09:02; Status DC Vancomycin HCl (Vancomycin Inj) 1,000 mg STK-MED ONCE .ROUTE Last administered on 02/28/17 09:33; Start 02/28/17 at 09:33; Stop 02/28/17 at 09:34; Status DC Vancomycin HCl (Vancomycin Inj) 1,000 mg STK-MED ONCE .ROUTE Last administered on 02/28/17 09:36; Start 02/28/17 at 09:33; Stop 02/28/17 at 09:34; Status DC Daptomycin 450 mg/ Sodium Chloride 100 ml @ 200 mls/hr Q24H IV Last administered on 03/05/17 13:41; Start 02/28/17 at 12:00; Stop 03/05/17 at 18:00 ; Status DC Vancomycin HCl (Vancomycin Inj) 1,000 mg STK-MED ONCE .ROUTE Last administered on 02/28/17 10:45; Start 02/28/17 at 10:42; Stop 02/28/17 at 10:43; Status DC Vancomycin HCl (Vancomycin Inj) 500 mg STK-MED ONCE .ROUTE Last administered on 02/28/17 10:45; Start 02/28/17 at 10:42; Stop 02/28/17 at 10:43; Status DC Fentanyl Citrate (fentaNYL INJ) 250 mcg STK-MED ONCE .ROUTE ; Start 02/28/17 at 11:48; Stop 02/28/17 at 11:49; Status DC Miscellaneous Information ALL NURSING DEPARTME... UNSCH PRN .XX SEE LABEL COMMENTS; Start 02/28/17 at 11:33; Stop 03/01/17 at 11:32; Status DC Miscellaneous Information SPECIFIC LAB TO BE BIA... ONCE ONCE .XX ; Start 03/04 at 09:45; Stop 03/04/17 at 09:46; Status Cancel Sodium Chloride 1,000 ml @ 999 mls/hr BOLUS ONCE IV Last administered on 13:28; Start 03/02/17 at 13:15; Stop 03/02/17 at 14:15; Status DC Sodium Chloride 1,000 ml @ 125 mls/hr Q8H IV Last administered on 03/02/17 14: 18; Start 03/02/17 at 13:15; Stop 03/02/17 at 14:30; Status DC Rifampin (Rifampin) 300 mg Q12HR PO Last administered on 03/23/17 08:42; Start 03/02/17 at 21:00; Stop 03/23/17 at 18:40; Status DC Potassium Chloride 20 meq/ Sodium Chloride 38.5 meq/Sterile Water 1,010 ml @ 55 mls/hr [id number] IV Last administered on 03/09/17 22:51; Start 03/03/17 at 11: 00; Stop 03/09/17 at 23:36; Status DC Furosemide (Lasix Inj) 20 mg ONCE ONCE IV PUSH Last administered on 03/03/17 10:19; Start 03/03/17 at 09:30; Stop 03/03/17 at 09:43; Status DC Carvedilol (Coreg) 6.25 mg Q12HR PO Last administered on 04/06/17 08:35; Start 03/03/17 at 21:00 Vancomycin HCl (Vancomycin Inj) 1,000 mg STK-MED ONCE .ROUTE Last administered on 03/04/17 15:52; Start 03/04/17 at 15:10; Stop 03/04/17 at 15:11; Status DC Fentanyl Citrate (fentaNYL INJ) 100 mcg STK-MED ONCE .ROUTE ; Start 03/04/17 at 16:38; Stop 03/04/17 at 16:39; Status DC Fentanyl Citrate (fentaNYL INJ) 250 mcg STK-MED ONCE .ROUTE ; Start 03/04/17 at 16:38; Stop 03/04/17 at 16:39; Status DC Vancomycin HCl (Vancomycin Inj) 1,000 mg STK-MED ONCE .ROUTE Last administered on 03/04/17 16:52; Start 03/04/17 at 16:59; Stop 03/04/17 at 17:00; Status DC Fentanyl Citrate (fentaNYL INJ) 100 mcg STK-MED ONCE .ROUTE ; Start 03/04/17 at 18:24; Stop 03/04/17 at 18:25; Status DC Fentanyl Citrate (fentaNYL INJ) 250 mcg STK-MED ONCE .ROUTE ; Start 03/04/17 at 18:25; Stop 03/04/17 at 18:26; Status DC Miscellaneous Information ALL NURSING DEPARTME... UNSCH PRN .XX SEE LABEL COMMENTS; Start 03/04/17 at 19:15; Stop 03/05/17 at 19:14; Status DC Daptomycin 550 mg/ Sodium Chloride 100 ml @ 200 mls/hr Q24H IV Last administered on 04/06/17 12:43; Start 03/06/17 at 12:00 Bisacodyl (Dulcolax Supp) 10 mg DAILY PRN RECTAL SEVERE CONSITIPATION; Start at 21:00 Lactulose (Lactulose Liq) 30 ml DAILY PRN NG SEVERE CONSITIPATION Last administered on 03/07/17 18:45; Start 03/06/17 at 21:00 Docusate Sodium (Colace Liq) 100 mg Q12HR PO Last administered on 03/09/17 09: 30; Start 03/06/17 at 21:15; Status Future Hold Sodium Chloride 250 ml @ 15 mls/hr ONCE ONCE IV Last administered on 00:27; Start 03/07/17 at 19:00; Stop 03/08/17 at 12:06; Status DC Furosemide (Lasix Inj) 20 mg ONCE ONCE IV Last administered on 03/08/17 03:49 ; Start 03/07/17 at 19:00; Stop 03/07/17 at 19:01; Status DC Polyethylene Glycol/ Electrolytes (Colyte Liq) 4,000 ml ONCE ONCE PO ; Start at 11:00; Stop 03/08/17 at 11:01; Status Cancel Mupirocin (Bactroban 2% Oint) 22 applic STK-MED ONCE .ROUTE ; Start 03/08/17 at 12:10; Stop 03/08/17 at 12:11; Status DC Lidocaine HCl (Xylocaine 2% Inj) 50 ml STK-MED ONCE .ROUTE ; Start 03/08/17 at 12:13; Stop 03/08/17 at 12:14; Status DC Bupivacaine HCl (Marcaine Pf 0.5% Inj) 30 ml STK-MED ONCE .ROUTE ; Start at 12:17; Stop 03/08/17 at 12:18; Status DC Famotidine (Pepcid Inj) 20 mg STK-MED ONCE .ROUTE ; Start 03/08/17 at 13:17; Stop 03/08/17 at 13:18; Status DC Vancomycin HCl (Vancomycin Inj) 1,000 mg STK-MED ONCE .ROUTE Last administered on 03/08/17 14:35; Start 03/08/17 at 14:07; Stop 03/08/17 at 14:08; Status DC Sodium Chloride (Sodium Chloride 0.9% Inj) 20 ml STK-MED ONCE .ROUTE ; Start at 14:07; Stop 03/08/17 at 14:08; Status DC Vancomycin HCl (Vancomycin Inj) 1,000 mg STK-MED ONCE .ROUTE ; Start 03/08/17 at 14:42; Stop 03/08/17 at 14:43; Status DC Sodium Chloride (Sodium Chloride 0.9% Inj) 20 ml STK-MED ONCE .ROUTE ; Start at 14:42; Stop 03/08/17 at 14:43; Status DC Fentanyl Citrate (fentaNYL INJ) 500 mcg STK-MED ONCE .ROUTE ; Start 03/08/17 at 15:51; Stop 03/08/17 at 15:52; Status DC Miscellaneous Information ALL NURSING DEPARTME... UNSCH PRN .XX SEE LABEL COMMENTS; Start 03/08/17 at 15:40; Stop 03/09/17 at 15:39; Status DC Polyethylene Glycol/ Electrolytes (Colyte Liq) 4,000 ml ONCE ONCE NG Last administered on 03/08/17 22:42; Start 03/08/17 at 20:00; Stop 03/08/17 at 20:01 ; Status DC Lisinopril (Prinivil) 2.5 mg DAILY PO Last administered on 04/06/17 08:35; Start 03/09/17 at 09:00 Miscellaneous (Pill Splitter) 1 ea UNSCH PRN OTHER SEE LABEL COMMENTS; Start at 21:15 Dextrose 1,000 ml @ 84 mls/hr [id number] IV Last administered on 03/11/17 21:24 ; Start 03/09/17 at 23:45; Stop 03/11/17 at 23:38; Status DC Enoxaparin Sodium (Lovenox Inj) 40 mg Q24H SQ Last administered on 04/06/17 11 :48; Start 03/10/17 at 13:00; Status Future hold Bupivacaine HCl (Marcaine Pf 0.5% Inj) 30 ml STK-MED ONCE .ROUTE ; Start at 14:50; Stop 03/10/17 at 14:51; Status DC Lidocaine HCl (Xylocaine 2% Inj) 50 ml STK-MED ONCE .ROUTE ; Start 03/10/17 at 14:51; Stop 03/10/17 at 14:52; Status DC Bacitracin (Baciguent Oint) 15 applic STK-MED ONCE .ROUTE Last administered on 03/10/17 16:43; Start 03/10/17 at 14:51; Stop 03/10/17 at 14:52; Status DC Vancomycin HCl (Vancomycin Inj) 1,000 mg STK-MED ONCE .ROUTE Last administered on 03/10/17 15:49; Start 03/10/17 at 15:45; Stop 03/10/17 at 15:46; Status DC Sodium Chloride (Sodium Chloride 0.9% Inj) 20 ml STK-MED ONCE .ROUTE ; Start at 15:45; Stop 03/10/17 at 15:46; Status DC Neomycin/Polymyxin (Neosporin G.u. Irr) 2 ml STK-MED ONCE TOPICAL Last administered on 03/10/17 15:49; Start 03/10/17 at 15:49; Stop 03/10/17 at 15:59 ; Status DC Bacitracin (Baciguent Oint) 30 applic STK-MED ONCE .ROUTE Last administered on 03/10/17 16:44; Start 03/10/17 at 16:41; Stop 03/10/17 at 16:42; Status DC Hydromorphone HCl (Dilaudid Pf Inj) 2 mg STK-MED ONCE .ROUTE ; Start 03/10/17 at 16:47; Stop 03/10/17 at 16:48; Status DC Fentanyl Citrate (fentaNYL INJ) 250 mcg STK-MED ONCE .ROUTE ; Start 03/10/17 at 17:22; Stop 03/10/17 at 17:23; Status DC Morphine Sulfate (*morphine INJ PERIprocedure ONLY) 8 mg STK-MED ONCE .ROUTE Last administered on 03/10/17 18:12; Start 03/10/17 at 18:12; Stop 03/10/17 at 18:13; Status DC Miscellaneous Information ALL NURSING DEPARTME... UNSCH PRN .XX SEE LABEL COMMENTS; Start 03/10/17 at 14:30; Stop 03/11/17 at 14:29; Status DC Propofol (Diprivan 200 Mg/20 ml Inj) 200 mg STK-MED ONCE IV PUSH ; Start at 15:29; Stop 03/11/17 at 15:47; Status DC Oxybenzone/ Padimate O/ Dimethicone (Blistex Lip Crozier) 4.25 applic STK-MED ONCE TOPICAL Last administered on 03/11/17 16:02; Start 03/11/17 at 16:02; Stop at 16:03; Status DC Miscellaneous Information ALL NURSING DEPARTME... UNSCH PRN .XX SEE LABEL COMMENTS; Start 03/11/17 at 16:00; Stop 03/12/17 at 15:59; Status DC Succinylcholine Chloride (Quelicin Inj) 200 mg STK-MED ONCE IV PUSH ; Start at 15:27; Stop 03/12/17 at 08:59; Status DC Sodium Chloride 250 ml @ 15 mls/hr ONCE ONCE IV Last administered on t 10:15; Start 03/12/17 at 10:15; Stop 03/13/17 at 02:54; Status DC Acetaminophen (Tylenol) 650 mg Q4H PRN PO SEE LABEL COMMENTS; Start 03/12/17 at 10:15; Stop 03/12/17 at 14:16; Status DC Diphenhydramine HCl (Benadryl) 25 mg Q4H PRN PO SEE LABEL COMMENTS; Start 03/12 at 10:15; Stop 03/12/17 at 14:16; Status DC Potassium Chloride 100 ml @ 50 mls/hr Q2H IV Last administered on 03/12/17 13 :25; Start 03/12/17 at 11:00; Stop 03/12/17 at 14:59; Status DC Lidocaine HCl (Xylocaine 2% Inj) 50 ml STK-MED ONCE .ROUTE ; Start 03/12/17 at 13:04; Stop 03/12/17 at 13:05; Status DC Mupirocin (Bactroban 2% Oint) 22 applic STK-MED ONCE .ROUTE ; Start 03/12/17 at 13:06; Stop 03/12/17 at 13:07; Status DC Hydromorphone HCl (Dilaudid Pf Inj) 2 mg STK-MED ONCE .ROUTE ; Start 03/12/17 at 15:18; Stop 03/12/17 at 15:19; Status DC Acetaminophen (Ofirmev Inj) 1,000 mg STK-MED ONCE IV ; Start 03/12/17 at 15:18; Stop 03/12/17 at 15:19; Status DC Vancomycin HCl (Vancomycin Inj) 1,000 mg STK-MED ONCE .ROUTE Last administered on 03/12/17 15:54; Start 03/12/17 at 15:57; Stop 03/12/17 at 15:58; Status DC Neomycin/Polymyxin (Neosporin G.u. Irr) 2 ml STK-MED ONCE TOPICAL Last administered on 03/12/17 15:54; Start 03/12/17 at 15:54; Stop 03/12/17 at 16:15 ; Status DC Fentanyl Citrate (fentaNYL INJ) 250 mcg STK-MED ONCE .ROUTE ; Start 03/12/17 at 17:04; Stop 03/12/17 at 17:05; Status DC Miscellaneous Information ALL NURSING DEPARTME... UNSCH PRN .XX SEE LABEL COMMENTS; Start 03/12/17 at 17:30; Stop 03/13/17 at 17:29; Status DC Morphine Sulfate (*morphine INJ PERIprocedure ONLY) 8 mg STK-MED ONCE .ROUTE Last administered on 03/12/17 17:33; Start 03/12/17 at 17:33; Stop 03/12/17 at 17:34; Status DC Lidocaine HCl (Xylocaine 1% Inj) 10 ml ONCE@0700 ONCE OTHER ; Start 03/13/17 at 07:00; Stop 03/13/17 at 07:01; Status DC Potassium Chloride/Sodium Chloride 1,000 ml @ 75 mls/hr [id number] IV Last administered on 04/06/17 08:36; Start 03/13/17 at 11:30 Polyethylene Glycol/ Electrolytes (Colyte Liq) 4,000 ml ONCE ONCE PEG Last administered on 03/14/17 17:13; Start 03/14/17 at 16:00; Stop 03/14/17 at 16:01 ; Status DC Sodium Chloride 250 ml @ 15 mls/hr ONCE ONCE IV Last administered on 21:30; Start 03/13/17 at 20:00; Stop 03/14/17 at 12:39; Status DC Polyethylene Glycol/ Electrolytes (Colyte Liq) 4,000 ml ONCE ONCE PO Last administered on 03/15/17 17:19; Start 03/15/17 at 16:45; Stop 03/15/17 at 16:48 ; Status DC Propofol (Diprivan 200 Mg/20 ml Inj) 180 mg ONCE ONCE IV Last administered on 03/15/17 16:45; Start 03/15/17 at 16:43; Stop 03/15/17 at 16:45; Status DC Sodium Biphosphate/ Sodium Phosphate (Fleets Enema (Adult)) 133 ml ONCE ONCE RECTAL Last administered on 03/16/17 14:45; Start 03/16/17 at 14:15; Stop at 14:21; Status DC Sodium Biphosphate/ Sodium Phosphate (Fleets Enema (Adult)) 133 ml ONCE ONCE RECTAL Last administered on 03/17/17 09:49; Start 03/17/17 at 08:00; Stop at 08:01; Status DC Propofol (Diprivan 200 Mg/20 ml Inj) 100 mg ONCE ONCE IV PUSH ; Start at 15:00; Stop 03/16/17 at 15:01; Status DC Midazolam HCl (Versed Inj) 2 mg STK-MED ONCE .ROUTE ; Start 03/16/17 at 15:34; Stop 03/16/17 at 15:35; Status DC Vancomycin HCl (Vancomycin Inj) 1,000 mg STK-MED ONCE .ROUTE Last administered on 03/18/17 18:58; Start 03/18/17 at 18:15; Stop 03/18/17 at 18:16; Status DC Fentanyl Citrate (fentaNYL INJ) 200 mcg STK-MED ONCE .ROUTE ; Start 03/18/17 at 19:50; Stop 03/18/17 at 19:51; Status DC Methocarbamol (Robaxin) 500 mg Q8HR PO Last administered on 04/06/17 12:43; Start 03/19/17 at 14:00 Acetaminophen 100 ml @ As Directed STK-MED ONCE IV ; Start 03/24/17 at 09:21; Stop 03/24/17 at 09:22; Status DC Midazolam HCl (Versed Inj) 2 mg STK-MED ONCE .ROUTE ; Start 03/24/17 at 09:21; Stop 03/24/17 at 09:22; Status DC Fentanyl Citrate (fentaNYL INJ) 100 mcg STK-MED ONCE .ROUTE ; Start 03/24/17 at 09:21; Stop 03/24/17 at 09:22; Status DC Fentanyl Citrate (fentaNYL INJ) 100 mcg STK-MED ONCE .ROUTE ; Start 03/24/17 at 09:21; Stop 03/24/17 at 09:22; Status DC Hydromorphone HCl (*DILAUDID PF INJ PERIprocedural ONLY) 1 mg STK-MED ONCE .ROUTE Last administered on 03/24/17 14:53; Start 03/24/17 at 14:53; Stop at 14:54; Status DC Meperidine HCl (*DEMEROL INJ PERIprocedural ONLY) 25 mg STK-MED ONCE .ROUTE Last administered on 03/24/17 15:01; Start 03/24/17 at 15:01; Stop 03/24/17 at 15:02; Status DC Fentanyl Citrate (fentaNYL INJ) 400 mcg STK-MED ONCE .ROUTE ; Start 03/24/17 at 15:01; Stop 03/24/17 at 15:02; Status DC Miscellaneous Information ALL NURSING DEPARTME... UNSCH PRN .XX SEE LABEL COMMENTS; Start 03/24/17 at 14:52; Stop 03/25/17 at 14:51; Status DC Polyethylene Glycol (Miralax) 17 gm DAILY PO ; Start 03/24/17 at 16:30; Status Cancel Acetaminophen (Tylenol) 650 mg Q4H PRN PO fever Last administered on 03/25/17 10:02; Start 03/25/17 at 10:00 Piperacillin Sod/ Tazobactam Sod 100 ml @ 200 mls/hr Q8H IV Last administered on 03/29/17 12:36; Start 03/25/17 at 20:00; Stop 03/29/17 at 14:34; Status DC Furosemide (Lasix Inj) 10 mg ONCE ONCE IV PUSH Last administered on 03/26/17 13:47; Start 03/26/17 at 13:30; Stop 03/26/17 at 13:34; Status DC Furosemide (Lasix Inj) 10 mg UNSCH X1 IV PUSH Last administered on 03/27/17 01 :31; Start 03/26/17 at 17:15; Stop 03/26/17 at 23:59; Status DC Levothyroxine Sodium (Synthroid) 50 mcg DAILY@0600 PO Last administered on 04/06 05:05; Start 03/30/17 at 06:00 Levothyroxine Sodium (Synthroid) 50 mcg ONCE ONCE PO Last administered on 12:55; Start 03/29/17 at 12:00; Stop 03/29/17 at 12:02; Status DC Levofloxacin (Levaquin) 500 mg DAILY PO Last administered on 04/06/17 08:35; Start 03/29/17 at 14:45; Stop 04/07/17 at 14:44 Propofol (Diprivan 200 Mg/20 ml Inj) 200 mg STK-MED ONCE IV ; Start 02/26/17 at 12:00; Stop 03/30/17 at 13:17; Status DC Neostigmine Methylsulfate (Prostigmin Inj) 3 mg STK-MED ONCE IV ; Start 02/26/17 at 12:00; Stop 03/30/17 at 13:17; Status DC Phenylephrine HCl (Neosynephrine/ NS 1000 Mcg/10ml Syr) 1,000 mcg STK-MED ONCE IV ; Start 02/26/17 at 12:00; Stop 03/30/17 at 13:17; Status DC Lactated Ringer's 2,000 ml @ As Directed STK-MED ONCE IV ; Start 02/26/17 at 12: 00; Stop 03/30/17 at 13:17; Status DC Propofol (Diprivan 200 Mg/20 ml Inj) 200 mg STK-MED ONCE IV ; Start 02/28/17 at 12:00; Stop 03/30/17 at 13:46; Status DC Neostigmine Methylsulfate (Prostigmin Inj) 3 mg STK-MED ONCE IV ; Start 02/28/17 at 12:00; Stop 03/30/17 at 13:46; Status DC Lactated Ringer's 2,000 ml @ As Directed STK-MED ONCE IV ; Start 02/28/17 at 12: 00; Stop 03/30/17 at 13:46; Status DC Propofol (Diprivan 200 Mg/20 ml Inj) 400 mg STK-MED ONCE IV ; Start 03/04/17 at 12:00; Stop 03/30/17 at 14:07; Status DC Ephedrine Sulfate (ePHEDrine/NS 25 MG/5 ML SYR) 25 mg STK-MED ONCE IV ; Start at 12:00; Stop 03/30/17 at 14:07; Status DC Phenylephrine HCl (Neosynephrine/ NS 1000 Mcg/10ml Syr) 2,000 mcg STK-MED ONCE IV ; Start 03/04/17 at 12:00; Stop 03/30/17 at 14:08; Status DC Ondansetron HCl (Zofran Inj) 4 mg STK-MED ONCE IV PUSH ; Start 03/04/17 at 12:00 ; Stop 03/30/17 at 14:08; Status DC Propofol (Diprivan 200 Mg/20 ml Inj) 200 mg STK-MED ONCE IV ; Start 03/08/17 at 12:00; Stop 03/30/17 at 14:49; Status DC Ephedrine Sulfate (ePHEDrine/NS 25 MG/5 ML SYR) 50 mg STK-MED ONCE IV ; Start at 12:00; Stop 03/30/17 at 14:49; Status DC Neostigmine Methylsulfate (Prostigmin Inj) 4 mg STK-MED ONCE IV ; Start at 12:00; Stop 03/30/17 at 14:49; Status DC Phenylephrine HCl (Neosynephrine/ NS 1000 Mcg/10ml Syr) 1,000 mcg STK-MED ONCE IV ; Start 03/08/17 at 12:00; Stop 03/30/17 at 14:49; Status DC Ondansetron HCl (Zofran Inj) 4 mg STK-MED ONCE IV PUSH ; Start 03/08/17 at 12:00 ; Stop 03/30/17 at 14:49; Status DC Lactated Ringer's 1,000 ml @ As Directed STK-MED ONCE IV ; Start 03/08/17 at 12 :00; Stop 03/30/17 at 14:49; Status DC Propofol (Diprivan 200 Mg/20 ml Inj) 200 mg STK-MED ONCE IV ; Start 03/10/17 at 12:00; Stop 03/30/17 at 15:08; Status DC Ephedrine Sulfate (ePHEDrine/NS 25 MG/5 ML SYR) 25 mg STK-MED ONCE IV ; Start at 12:00; Stop 03/30/17 at 15:08; Status DC Neostigmine Methylsulfate (Prostigmin Inj) 3 mg STK-MED ONCE IV ; Start at 12:00; Stop 03/30/17 at 15:08; Status DC Phenylephrine HCl (Neosynephrine/ NS 1000 Mcg/10ml Syr) 2,000 mcg STK-MED ONCE IV ; Start 03/10/17 at 12:00; Stop 03/30/17 at 15:08; Status DC Ondansetron HCl (Zofran Inj) 4 mg STK-MED ONCE IV PUSH ; Start 03/10/17 at 12:00 ; Stop 03/30/17 at 15:08; Status DC Lactated Ringer's 1,000 ml @ As Directed STK-MED ONCE IV ; Start 03/10/17 at 12 :00; Stop 03/30/17 at 15:08; Status DC Sodium Chloride 1,000 ml @ As Directed STK-MED ONCE IV ; Start 03/10/17 at 12: 00; Stop 03/30/17 at 15:08; Status DC Propofol (Diprivan 200 Mg/20 ml Inj) 200 mg STK-MED ONCE IV ; Start 03/12/17 at 12:00; Stop 03/30/17 at 15:20; Status DC Ephedrine Sulfate (ePHEDrine/NS 25 MG/5 ML SYR) 25 mg STK-MED ONCE IV ; Start at 12:00; Stop 03/30/17 at 15:20; Status DC Phenylephrine HCl (Neosynephrine/ NS 1000 Mcg/10ml Syr) 1,000 mcg STK-MED ONCE IV ; Start 03/12/17 at 12:00; Stop 03/30/17 at 15:20; Status DC Ondansetron HCl (Zofran Inj) 4 mg STK-MED ONCE IV PUSH ; Start 03/12/17 at 12:00 ; Stop 03/30/17 at 15:20; Status DC Lactated Ringer's 1,000 ml @ As Directed STK-MED ONCE IV ; Start 03/12/17 at 12 :00; Stop 03/30/17 at 15:20; Status DC Propofol (Diprivan 200 Mg/20 ml Inj) 200 mg STK-MED ONCE IV ; Start 03/18/17 at 12:00; Stop 03/30/17 at 15:38; Status DC Ondansetron HCl (Zofran Inj) 4 mg STK-MED ONCE IV PUSH ; Start 03/18/17 at 12:00 ; Stop 03/30/17 at 15:38; Status DC Neostigmine Methylsulfate (Prostigmin Inj) 3 mg STK-MED ONCE IV ; Start at 12:00; Stop 03/30/17 at 15:38; Status DC Phenylephrine HCl (Neosynephrine/ NS 1000 Mcg/10ml Syr) 1,000 mcg STK-MED ONCE IV ; Start 03/18/17 at 12:00; Stop 03/30/17 at 15:38; Status DC Oxycodone/ Acetaminophen (Percocet 5-325 Mg) 1 tab Q4H PRN PO pain 3 to 5; Start 04/02/17 at 13:00 Oxycodone/ Acetaminophen (Percocet 10-325 Mg) 1 tab Q4H PRN PO pain 6-10 Last administered on 04/06/17 11:48; Start 04/02/17 at 13:00 Magnesium Sulfate/ Dextrose 100 ml @ 100 mls/hr Q1H IV Last administered on 16:15; Start 04/03/17 at 14:00; Stop 04/03/17 at 15:59; Status DC Sodium Chloride (Sodium Chloride) 1 gm TID PO Last administered on 04/06/17 11 :48; Start 04/04/17 at 14:00 Calcium Chloride 2 gm/Sodium Chloride 120 ml @ 120 mls/hr ONCE ONCE IV Last administered on 04/04/17 15:45; Start 04/04/17 at 14:00; Stop 04/04/17 at 14:59 ; Status DC A/P Problem List: (1) Sepsis ICD Code: A41.9 - Sepsis, unspecified organism Status: Acute (2) Right foot infection ICD Code: L08.9 - Local infection of the skin and subcutaneous tissue, unspecified Status: Acute (3) Encephalopathy ICD Code: G93.40 - Encephalopathy, unspecified Status: Acute (4) Alcoholism ICD Code: F10.20 - Alcohol dependence, uncomplicated Status: Chronic (5) Hypothyroidism ICD Code: E03.9 - Hypothyroidism, unspecified Assessment and Plan 61-year-old male admitted secondary to numerous infections including bilateral hands and right ankle. Previous history of right ankle. Patient also had encephalopathy secondary to infection and alcohol withdrawal time of admit. Encephalopathy has improved. Continued treatments of infections are ongoing. Status post I&D of right elbow. Continue wound care. Robaxin started for muscle spasms. 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 distant showering of emboli to other joints. MRSA bacteremia Right ankle hardware infection, s/p partial removal of hardware. Deeper hardware embedded. SP RIGHT BKA Bilateral UE hand abscess and tenosynovitis, septic arthritis s.p multiple debridements. Recent fever on 03/25 (resolved) CXR showed possible b/l infiltrate but no clinical respiratory symptoms, UTI with + UA , lactic acidosis (improved), on zosyn with dapto Antibiotic per ID Plan for long-term IV antibiotics, rifampin for 6 weeks Likely will need half-way facility placement Continue oxycodone and Dilaudid for pain May still need further surgical intervention Hand surgeon following Podiatry following ID following Multiple surgeries thus far: - podiatry Dr. Reyes/Dr. Gamez on 02/26, 02/28, 03/04 - hand surgeon Dr. Bullock on 02/26, 02/28, 03/04, 03/08, 03/10 Anemia Most recent hemoglobin is 8.0 Follow CBC Status post blood transfusion Acute Toxic/Metabolic Encephalopathy secondary to Sepsis Acute Alcohol Withdrawal Resolved Hypernatremia CONTINUE ON NACL TABS RECHECK CMP EVERY OTHER DAY Hypokalemia Replace as needed Continue to monitor REPLACE Hypertension Continue clonidine and Coreg, cardiology initiate low dose lisinopril, monitor renal function Follow blood pressures Adjust as needed for control Mild Systolic CHF Scrotal edema EF of 40-45% with global hypokinesis found on 02/28/17 Continue beta amarjit Following BMP, consider initiating diuresis, (patient recently had fever and lactic acidosis) HYPOTHYROIDISM START SYNTHROID 50MCG DAILY THADDEUS possibly vanco induced Monitor renal function Avoid nephrotoxins Previous event was likely secondary to ATN Nephrology following Urinary retention Monitor urine output Hepatitis C Standard precautions Dysphagia: Improved patient on regular diet Dietitian to assess tapering tube feed DVT Prophylaxis Lovenox AM LABS CONTINUE CURRENT CARE DC PEG CONSULT GI TO REMOVE?- PEG OUT 9-7 pain control add oral meds HYPOMAG- REPLACE BY PROTOCOLS PT AND OT TO EVAL AND TREAT HYPOPHOSPHATEMIA WILL REPLACE AM LABS DW RN AND PT Problem Qualifiers (1) Sepsis: Isaac Pink DO Apr 06, 2017 15:26
[2017-04-06 16:05] VITALS: BP 114/61; PULSE 72; RESP 16; TEMP 98.7; O2SAT 98
[2017-04-06 20:32] VITALS: BP 114/59; PULSE 64; RESP 16; TEMP 98.3; O2SAT 98
[2017-04-06 22:00] LABS: ALKALINE PHOSPHATASE 93 U/L (45-117); ALT (GPT) 18 U/L (12-78); ANION GAP 10 MEQ/L (5-15); AST (GOT) 25 U/L (15-37); BICARBONATE 23.3 MEQ/L (21.0-32.0); BLOOD UREA NITROGEN 12 MG/DL (7-18); CHLORIDE 91 MEQ/L (98-107); GLOMERULAR FILTRATION RATE 136 ML/MIN (>89); POTASSIUM 4.4 MEQ/L (3.5-5.1); TOTAL BILIRUBIN ADULT 0.2 MG/DL (0.2-1.0)
[2017-04-06 22:12] LABS: SODIUM (NA) 124 MEQ/L (136-145)
[2017-04-07] VITALS (7 sets, daily range): BP systolic 101–145; BP diastolic 56–85; PULSE 53–75; RESP 16–18; TEMP 96.2–98.6; O2SAT 96–99
[2017-04-07] MEDS: oxyCODONE/ACETAMINOPHEN 10 MG/325 MG TAB PO PRN ×5 (03:03→22:52)
[2017-04-07] MEDS: cloNIDine HCL 0.3 MG TAB PO SCH ×3 (05:08→20:37)
[2017-04-07] MEDS: LEVOTHYROXINE SODIUM 50 MCG TAB PO SCH (05:08)
[2017-04-07] MEDS: HYDROmorphone HCL PF 1 MG/ML VIAL IV PUSH PRN ×4 (05:08→20:39)
[2017-04-07] MEDS: METHOCARBAMOL 500 MG TAB PO SCH ×3 (05:08→20:38)
[2017-04-07] MEDS: LISINOPRIL 5 MG TAB PO SCH (08:45)
[2017-04-07] MEDS: CARVEDILOL 6.25 MG TAB PO SCH ×2 (08:45→20:37)
[2017-04-07] MEDS: SODIUM CHLORIDE 1 GRAM TAB PO SCH ×2 (08:46→13:24)
[2017-04-07] MEDS: LEVOFLOXACIN 500 MG TAB PO SCH (08:46)
[2017-04-07] MEDS: MULTIVITAMIN TAB PO SCH (08:46)
[2017-04-07] MEDS: THIAMINE HCL 100 MG TAB PO SCH (08:46)
[2017-04-07] MEDS: MUPIROCIN 2% OINT 1 APPLIC/GM SYR NASAL SCH ×2 (08:47→20:37)
[2017-04-07] MEDS: NS + KCL 20 MEQ INJ 1,000 ML IV SCH (10:54)
--- NOTE | 2017-04-07 13:13 | HHI.PR ---
Subjective Remarks Patient resting in bed he is awake alert to time place and person, he is being pleasant denied any dizziness or lightheadedness Sodium still at 124, patient seems to be on iv fluid NS with KCl at 75 cc per hour Objective Vitals Vital Signs Date Time Temp Pulse Resp B/P (MAP) Pulse Ox O2 Delivery O2 Flow Rate FiO2 04/07/17 12:31 Room Air 04/07/17 12:00 96.9 62 18 114/62 (79) 98 04/07/17 08:42 Room Air 04/07/17 08:00 96.2 53 18 101/56 (71) 99 04/07/17 04:30 98.1 75 16 110/57 (74) 97 04/07/17 00:10 98.3 66 16 117/60 (79) 99 04/06/17 20:32 98.3 64 16 114/59 (77) 98 04/06/17 19:00 Room Air 04/06/17 16:05 98.7 72 16 114/61 (78) 98 I/O 04/06/17 04/06/17 04/06/17 04/07/17 04/07/17 04/07/17 07:00 15:00 23:00 07:00 15:00 23:00 Intake Total 2380 ml 2079 ml 1286 ml Output Total 2700 ml 1200 ml 1175 ml Balance -320 ml 879 ml 111 ml Intake Oral 480 ml 420 ml 480 ml IV Total 1900 ml 1659 ml 806 ml Output Urine Total 2700 ml 1200 ml 1175 ml # Bowel Movements 1 0 Result Diagram: 04/06/1782904/[id number]/172045 Objective Remarks GENERAL: This is a well-nourished, well-developed patient, in no apparent distress. SKIN: No rashes, warm and dry HEAD: Atraumatic. Normocephalic. EYES: Pupils equal round and reactive. Extraocular motions intact. No scleral icterus. ENT: Nose without bleeding, or drainage, Airway patent. NECK: Trachea midline. Supple CARDIOVASCULAR: Regular rate and rhythm without murmurs, gallops, or rubs. RESPIRATORY: Fair air entry bilaterally. No wheezes, rales, or rhonchi. GASTROINTESTINAL: Abdomen soft, non-tender, nondistended. Positive bowel sounds MUSCULOSKELETAL:No cyanosis, or edema. Right amputation stump in gauze NEUROLOGICAL: Awake and alert. Moves all extremity. Normal speech.no focal neurological deficit Procedures 03/10/2017 - Dr. Bullock exploration, wash, excisional debridement extensor tenosynovium right wrist/forearm/hand 03/08/17 - Dr. Bullock- exploration, wash, excisional debridement skin, subcutaneous tissue, extensor tenosynovitis right wrist and hand. Findings: necrotic tissue, minimal purulence, extensor tenosynovitis right wrist/hand 03/04/17 - Dr Gamez - Right leg and incision and drainage. Right foot delayed primary closure x3 03/04/17 - Dr. Bullock - Extensor tenosynovectomy second, third, fourth extensor compartments right wrist and excisional debridement wash index finger metacarpal phalangeal joint, excisional wash and excisional debridement left hand. 02/28/17 - Dr. Reyes - Right ankle wound debridement and washout. Implantation of antibiotic vancomycin beads. 02/28/17 - Dr. Bullock - Exploration, wash, excisional debridement index finger metacarpophalangeal joint right hand; Exploration, wash, excisional debridement metacarpophalangeal joint left index finger; Exploration, wash, excisional debridement extensor pollicis longus tendon right thumb and hand. 02/26/17 - Dr. Reyes - Right ankle incision and drainage, arthrotomy, removal infected hardware, bone biopsy. 02/26/17 - Dr. Bullock - Exploration, incision and drainage right hand abscess, Arthrotomy wash metacarpal phalangeal joint right index finger, Arthrotomy wash metacarpal phalangeal joint left index finger. A/P Problem List: (1) Sepsis ICD Code: A41.9 - Sepsis, unspecified organism Status: Acute (2) Right foot infection ICD Code: L08.9 - Local infection of the skin and subcutaneous tissue, unspecified Status: Acute (3) Encephalopathy ICD Code: G93.40 - Encephalopathy, unspecified Status: Acute (4) Alcoholism ICD Code: F10.20 - Alcohol dependence, uncomplicated Status: Chronic (5) Hypothyroidism ICD Code: E03.9 - Hypothyroidism, unspecified Assessment and Plan 04/07 > patient has been having severely low sodium at 120-124, not improving he is on sodium tablet however seems like patient has been on iv fluid since March 12 when he had renal failure due to vancomycin, DC iv fluid and sodium tablet, BMP every 6 hours with neuro check, I discussed with Dr. Barker the lead applier, he agree with the plan and he will follow up the patient. We need to monitor closely the sodium to avoid sudden correction, very important A/p 61-year-old male admitted secondary to numerous infections including bilateral hands and right ankle. Previous history of right ankle. Patient also had encephalopathy secondary to infection and alcohol withdrawal time of admit. Encephalopathy has improved. Continued treatments of infections are ongoing. Status post I&D of right elbow. Continue wound care. Robaxin started for muscle spasms. 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 distant showering of emboli to other joints. MRSA bacteremia Right ankle hardware infection, s/p partial removal of hardware. Deeper hardware embedded. SP RIGHT BKA Bilateral UE hand abscess and tenosynovitis, septic arthritis s.p multiple debridements. Recent fever on 03/25 (resolved) CXR showed possible b/l infiltrate but no clinical respiratory symptoms, UTI with + UA , lactic acidosis (improved), on zosyn with dapto Antibiotic per ID Plan for long-term IV antibiotics, rifampin for 6 weeks Likely will need long term facility placement Continue oxycodone and Dilaudid for pain May still need further surgical intervention Hand surgeon following Podiatry following ID following Multiple surgeries thus far: - podiatry Dr. Reyes/Dr. Gamez on 02/26, 02/28, 03/04 - hand surgeon Dr. Bullock on 02/26, 02/28, 03/04, 03/08, 03/10 Anemia Most recent hemoglobin is 8.0 Follow CBC Status post blood transfusion Hyponatremia: Mostly hypotonic due to excessive fluid patient is on iv fluid since March 13, I discussed with Dr. Hema Kirby will DC sodium tablet and monitor the MP every 6 hours Acute Toxic/Metabolic Encephalopathy secondary to Sepsis Acute Alcohol Withdrawal Resolved Hypertension Continue clonidine and Coreg, cardiology initiate low dose lisinopril, monitor renal function Follow blood pressures Adjust as needed for control Mild Systolic CHF Scrotal edema EF of 40-45% with global hypokinesis found on 02/28/17 Continue beta amarjit Following BMP, consider initiating diuresis, (patient recently had fever and lactic acidosis) HYPOTHYROIDISM START SYNTHROID 50MCG DAILY THADDEUS mostly vanco induced Monitor renal function Avoid nephrotoxins Previous event was likely secondary to ATN Nephrology following Urinary retention Monitor urine output Hepatitis C Standard precautions Dysphagia: Improved patient on regular diet Dietitian to assess tapering tube feed DVT Prophylaxis Lovenox Problem Qualifiers (1) Sepsis: Kg Zaragoza MD Apr 07, 2017 13:13
[2017-04-07] MEDS: ENOXAPARIN SODIUM 40 MG/0.4 ML SYRINGE SQ SCH (13:24)
[2017-04-07] MEDS: DAPTOMYCIN IV SCH (13:24)
[2017-04-07] MEDS: SODIUM CHLORIDE 0.9% IV SCH (13:24)
--- NOTE | 2017-04-07 16:13 | HHI.NPPN ---
Subjective History of Present Illness 61 year old male with past medical history of hypertension, history of being homeless. He was admitted on February 25 with altered mental status and leukocytosis. I was called to see the patient because of elevated BUN and creatinine. Additional Remarks Called again to see the patient as he has Hyponatremia. Patient has Rt. BKA done, still not eating well. Objective Data Data Vital Signs Date Time Temp Pulse Resp B/P (MAP) Pulse Ox O2 Delivery O2 Flow Rate FiO2 04/07/17 12:31 Room Air 04/07/17 12:00 96.9 62 18 114/62 (79) 98 04/07/17 08:42 Room Air 04/07/17 08:00 96.2 53 18 101/56 (71) 99 04/07/17 04:30 98.1 75 16 110/57 (74) 97 04/07/17 00:10 98.3 66 16 117/60 (79) 99 04/06/17 20:32 98.3 64 16 114/59 (77) 98 04/06/17 19:00 Room Air -: 04/06/17 0830 04/06/172045 Physical Exam General Appearance: No Acute Distress, Anxious Eyes Eye Exam: Pupils Equal Throat Throat Exam: Oral Mucosa [place] & Moist Neck Neck Exam: Neck Supple Pulmonary Resp Exam: Breath Sounds Equal, No Distress, Rhonchi, Decreased Bases Cardiology CV Exam: Regular, Normal Sinus Rhythm Gastrointestinal/Abdomen GI Exam: Soft, Non-Tender, Bowel Sounds Present Extremeties Extremities Exam: Trace Edema Neurologic Neuro Exam: Alert, Awake Assessment/Plan Assessment Summary: THADDEUS/Acute Renal Failure Problem List: (1) Encephalopathy ICD Codes: G93.40 - Encephalopathy, unspecified Status: Acute (2) Essential hypertension ICD Codes: I10 - Essential (primary) hypertension Status: Acute (3) Hepatitis C, chronic ICD Codes: B18.2 - Chronic viral hepatitis C Status: Chronic (4) Abscess of right hand including fingers ICD Codes: L02.511 - Cutaneous abscess of right hand Status: Chronic (5) Abscess of left hand including fingers ICD Codes: L02.512 - Cutaneous abscess of left hand Status: Chronic (6) Alcoholism ICD Codes: F10.20 - Alcohol dependence, uncomplicated Status: Chronic (7) CHF (congestive heart failure) ICD Codes: I50.9 - Heart failure, unspecified Status: Acute (8) Sepsis ICD Codes: A41.9 - Sepsis, unspecified organism Status: Acute (9) ARF (acute renal failure) ICD Codes: N17.9 - Acute kidney failure, unspecified Status: Acute Plan Patient has Acute kidney injury and Creatinine now normalized. Na. is low, was high when he was not able to take orally. Agree with D/C IVF and NaCl PO . Check urine Na. and osmolality. Need fluid restriction. Problem Qualifiers (1) Sepsis: Diane Barker MD Apr 07, 2017 16:13
[2017-04-07 22:32] LABS: BICARBONATE 23.6 MEQ/L (21.0-32.0); POTASSIUM 4.3 MEQ/L (3.5-5.1)
[2017-04-07] MEDS: PANTOPRAZOLE SODIUM 40 MG VIAL IV PUSH SCH (22:52)
[2017-04-08] MEDS: HYDROmorphone HCL PF 1 MG/ML VIAL IV PUSH PRN ×5 (00:44→20:30)
[2017-04-08 03:13] LABS: BICARBONATE 23.9 MEQ/L (21.0-32.0); POTASSIUM 4.3 MEQ/L (3.5-5.1)
[2017-04-08] MEDS: oxyCODONE/ACETAMINOPHEN 10 MG/325 MG TAB PO PRN ×5 (03:27→22:55)
[2017-04-08 04:15] VITALS: BP 123/59; PULSE 64; RESP 18; TEMP 98.5; O2SAT 97
[2017-04-08] MEDS: METHOCARBAMOL 500 MG TAB PO SCH ×3 (05:19→20:29)
[2017-04-08] MEDS: cloNIDine HCL 0.3 MG TAB PO SCH ×3 (05:19→20:29)
[2017-04-08] MEDS: LEVOTHYROXINE SODIUM 50 MCG TAB PO SCH (05:19)
[2017-04-08 08:00] VITALS: BP 120/59; PULSE 67; RESP 16; TEMP 98.1; O2SAT 97
[2017-04-08] MEDS: MUPIROCIN 2% OINT 1 APPLIC/GM SYR NASAL SCH ×2 (08:57→20:29)
[2017-04-08] MEDS: THIAMINE HCL 100 MG TAB PO SCH (08:58)
[2017-04-08] MEDS: LISINOPRIL 5 MG TAB PO SCH (08:58)
[2017-04-08] MEDS: MULTIVITAMIN TAB PO SCH (08:58)
[2017-04-08] MEDS: CARVEDILOL 6.25 MG TAB PO SCH ×2 (08:58→20:30)
[2017-04-08 10:07] LABS: BICARBONATE 22.1 MEQ/L (21.0-32.0); POTASSIUM 4.1 MEQ/L (3.5-5.1)
--- NOTE | 2017-04-08 10:54 | HHI.PR ---
Subjective Remarks Patient resting in bed, he is awake alert oriented, we stopped iv fluid and sodium tablets yesterday, appreciate nephrology consultation, he ordered to backs of chips with each meals, patient asked to have a sodium tablet better than this, I explained to him that we would like a gradual normalizing of his sodium No other complaint Objective Vitals Vital Signs Date Time Temp Pulse Resp B/P (MAP) Pulse Ox O2 Delivery O2 Flow Rate FiO2 04/08/17 08:00 98.1 67 16 120/59 (79) 97 04/08/17 04:15 98.5 64 18 123/59 (80) 97 04/07/17 23:25 98.6 66 18 109/57 (74) 97 04/07/17 20:45 97.0 67 18 145/85 (105) 96 04/07/17 20:00 Room Air 04/07/17 16:00 97.4 71 18 125/74 (91) 97 04/07/17 12:31 Room Air 04/07/17 12:00 96.9 62 18 114/62 (79) 98 I/O 04/07/17 04/07/17 04/07/17 04/08/17 04/08/17 04/08/17 07:00 15:00 23:00 07:00 15:00 23:00 Intake Total 1286 ml 1903 ml 680 ml Output Total 1175 ml 1400 ml 1350 ml Balance 111 ml 503 ml -670 ml Intake Oral 480 ml 720 ml 680 ml IV Total 806 ml Tube Feeding 883 ml Other 300 ml Output Urine Total 1175 ml 1400 ml 1350 ml # Bowel Movements 0 1 0 Result Diagram: 04/06/17 0830 04/08/17 0852 Objective Remarks GENERAL: This is a well-nourished, well-developed patient, in no apparent distress. SKIN: No rashes, warm and dry HEAD: Atraumatic. Normocephalic. EYES: Pupils equal round and reactive. Extraocular motions intact. No scleral icterus. ENT: Nose without bleeding, or drainage, Airway patent. NECK: Trachea midline. Supple CARDIOVASCULAR: Regular rate and rhythm without murmurs, gallops, or rubs. RESPIRATORY: Fair air entry bilaterally. No wheezes, rales, or rhonchi. GASTROINTESTINAL: Abdomen soft, non-tender, nondistended. Positive bowel sounds MUSCULOSKELETAL:No cyanosis, or edema. Right amputation stump in gauze NEUROLOGICAL: Awake and alert. Moves all extremity. Normal speech.no focal neurological deficit Procedures 03/10/2017 - Dr. Bullock exploration, wash, excisional debridement extensor tenosynovium right wrist/forearm/hand 03/08/17 - Dr. Bullock- exploration, wash, excisional debridement skin, subcutaneous tissue, extensor tenosynovitis right wrist and hand. Findings: necrotic tissue, minimal purulence, extensor tenosynovitis right wrist/hand 03/04/17 - Dr Gamez - Right leg and incision and drainage. Right foot delayed primary closure x3 03/04/17 - Dr. Bullock - Extensor tenosynovectomy second, third, fourth extensor compartments right wrist and excisional debridement wash index finger metacarpal phalangeal joint, excisional wash and excisional debridement left hand. 02/28/17 - Dr. Reyes - Right ankle wound debridement and washout. Implantation of antibiotic vancomycin beads. 02/28/17 - Dr. Bullock - Exploration, wash, excisional debridement index finger metacarpophalangeal joint right hand; Exploration, wash, excisional debridement metacarpophalangeal joint left index finger; Exploration, wash, excisional debridement extensor pollicis longus tendon right thumb and hand. 02/26/17 - Dr. Reyes - Right ankle incision and drainage, arthrotomy, removal infected hardware, bone biopsy. 02/26/17 - Dr. Bullock - Exploration, incision and drainage right hand abscess, Arthrotomy wash metacarpal phalangeal joint right index finger, Arthrotomy wash metacarpal phalangeal joint left index finger. A/P Problem List: (1) Sepsis ICD Code: A41.9 - Sepsis, unspecified organism Status: Acute (2) Right foot infection ICD Code: L08.9 - Local infection of the skin and subcutaneous tissue, unspecified Status: Acute (3) Encephalopathy ICD Code: G93.40 - Encephalopathy, unspecified Status: Acute (4) Alcoholism ICD Code: F10.20 - Alcohol dependence, uncomplicated Status: Chronic (5) Hypothyroidism ICD Code: E03.9 - Hypothyroidism, unspecified Assessment and Plan 04/07 > patient has been having severely low sodium at 120-124, not improving he is on sodium tablet however seems like patient has been on iv fluid since March 12 when he had renal failure due to vancomycin, DC iv fluid and sodium tablet, BMP every 6 hours with neuro check, I discussed with Dr. Barker the large sheetfed press operator, he agree with the plan and he will follow up the patient. We need to monitor closely the sodium to avoid sudden correction, very important 04/08: Patient seen by large sheetfed press operator appreciated their help, they agreed with stopping iv fluid and sodium tablets, 2 bags of potato chips ordered for meals, fluid restriction, and continuous monitoring of BMP, avoid sudden correction more than 8-10 g a day A/p 61-year-old male admitted secondary to numerous infections including bilateral hands and right ankle. Previous history of right ankle. Patient also had encephalopathy secondary to infection and alcohol withdrawal time of admit. Encephalopathy has improved. Continued treatments of infections are ongoing. Status post I&D of right elbow. Continue wound care. Robaxin started for muscle spasms. 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 distant showering of emboli to other joints. MRSA bacteremia Right ankle hardware infection, s/p partial removal of hardware. Deeper hardware embedded. SP RIGHT BKA Bilateral UE hand abscess and tenosynovitis, septic arthritis s.p multiple debridements. Recent fever on 03/25 (resolved) CXR showed possible b/l infiltrate but no clinical respiratory symptoms, UTI with + UA , lactic acidosis (improved), on zosyn with dapto Antibiotic per ID Plan for long-term IV antibiotics, rifampin for 6 weeks Likely will need nursing home facility placement Continue oxycodone and Dilaudid for pain May still need further surgical intervention Hand surgeon following Podiatry following ID following Multiple surgeries thus far: - podiatry Dr. Reyes/Dr. Gamez on 02/26, 02/28, 03/04 - hand surgeon Dr. Bullock on 02/26, 02/28, 03/04, 03/08, 03/10 Anemia Most recent hemoglobin is 8.0 Follow CBC Status post blood transfusion Hyponatremia: Mostly hypotonic due to excessive fluid patient is on iv fluid since March 13, I discussed with Dr. Hema Kirby will DC sodium tablet and monitor the MP every 6 hours Acute Toxic/Metabolic Encephalopathy secondary to Sepsis Acute Alcohol Withdrawal Resolved Hypertension Continue clonidine and Coreg, cardiology initiate low dose lisinopril, monitor renal function Follow blood pressures Adjust as needed for control Mild Systolic CHF Scrotal edema EF of 40-45% with global hypokinesis found on 02/28/17 Continue beta amarjit Following BMP, consider initiating diuresis, (patient recently had fever and lactic acidosis) HYPOTHYROIDISM START SYNTHROID 50MCG DAILY THADDEUS mostly vanco induced Monitor renal function Avoid nephrotoxins Previous event was likely secondary to ATN Nephrology following Urinary retention Monitor urine output Hepatitis C Standard precautions Dysphagia: Improved patient on regular diet Dietitian to assess tapering tube feed DVT Prophylaxis Lovenox Problem Qualifiers (1) Sepsis: Kg Zaragoza MD Apr 08, 2017 10:54
--- NOTE | 2017-04-08 11:45 | HHI.PR ---
Subjective Remarks follow up multiple debridements right hand/wrist and forearm and closure no fever complains of no pain denies any tingling or numbness patient has been performing therapy by himself Objective Vital Signs Date Time Temp Pulse Resp B/P (MAP) Pulse Ox O2 Delivery O2 Flow Rate FiO2 04/08/17 11:24 16 04/08/17 10:59 16 04/08/17 08:00 98.1 67 16 120/59 (79) 97 04/08/17 04:15 98.5 64 18 123/59 (80) 97 04/07/17 23:25 98.6 66 18 109/57 (74) 97 04/07/17 20:45 97.0 67 18 145/85 (105) 96 04/07/17 20:00 Room Air 04/07/17 16:00 97.4 71 18 125/74 (91) 97 04/07/17 12:31 Room Air 04/07/17 12:00 96.9 62 18 114/62 (79) 98 I/O 04/07/17 04/07/17 04/07/17 04/08/17 04/08/17 04/08/17 07:00 15:00 23:00 07:00 15:00 23:00 Intake Total 1286 ml 1903 ml 680 ml Output Total 1175 ml 1400 ml 1350 ml Balance 111 ml 503 ml -670 ml Intake Oral 480 ml 720 ml 680 ml IV Total 806 ml Tube Feeding 883 ml Other 300 ml Output Urine Total 1175 ml 1400 ml 1350 ml # Bowel Movements 0 1 0 right upper extremity: healed surgical wounds with abby in place wound measuring 1X1 cms over the dorsolateral aspect of the wrist with heaping granulation tissue no drainage, no swelling or erythema able to make a full fist no active extension of the thumb noted wrist range of motion has improved considerably left hand: healed surgical incision site able to make a full fist intact sensation distally Result Diagram: 04/06/17 0830 04/08/17 0852 Assessment and Plan Assessment and Plan 61 year old male s/p incision and drainage, arthrotomy bilateral index finger MP joints, extensor tenosynovectomy s/p closure plan abby removed dry dressing applied continue antibiotics based on ID recommendations continue with range of motion exercises. removable wrist brace to keep the wrist in extension. hand surgery will follow Roque Bullock MD Apr 08, 2017 11:45
[2017-04-08 12:00] VITALS: BP 133/85; PULSE 67; RESP 18; TEMP 99.5; O2SAT 95
[2017-04-08] MEDS: SODIUM CHLORIDE 0.9% IV SCH (13:04)
[2017-04-08] MEDS: DAPTOMYCIN IV SCH (13:04)
[2017-04-08] MEDS: ENOXAPARIN SODIUM 40 MG/0.4 ML SYRINGE SQ SCH (13:05)
[2017-04-08 16:00] VITALS: BP 118/67; PULSE 64; RESP 18; TEMP 98.1; O2SAT 96
--- NOTE | 2017-04-08 16:35 | HHI.NPPN ---
Subjective History of Present Illness 61 year old male with past medical history of hypertension, history of being homeless. He was admitted on February 25 with altered mental status and leukocytosis. I was called to see the patient because of elevated BUN and creatinine. Additional Remarks Patient has Rt. BKA done, now on fluid restriction. Objective Data Data Vital Signs Date Time Temp Pulse Resp B/P (MAP) Pulse Ox O2 Delivery O2 Flow Rate FiO2 04/08/17 15:59 18 04/08/17 14:10 18 04/08/17 12:00 99.5 67 18 133/85 (101) 95 04/08/17 08:55 Room Air 04/08/17 08:00 98.1 67 16 120/59 (79) 97 04/08/17 04:15 98.5 64 18 123/59 (80) 97 04/07/17 23:25 98.6 66 18 109/57 (74) 97 04/07/17 20:45 97.0 67 18 145/85 (105) 96 04/07/17 20:00 Room Air -: 04/06/17 0830 04/08/17 0852 Physical Exam General Appearance: No Acute Distress, Anxious Eyes Eye Exam: Pupils Equal Throat Throat Exam: Oral Mucosa [place] & Moist Neck Neck Exam: Neck Supple Pulmonary Resp Exam: Breath Sounds Equal, No Distress, Rhonchi, Decreased Bases Cardiology CV Exam: Regular, Normal Sinus Rhythm Gastrointestinal/Abdomen GI Exam: Soft, Non-Tender, Bowel Sounds Present Extremeties Extremities Exam: Trace Edema Neurologic Neuro Exam: Alert, Awake Assessment/Plan Assessment Summary: THADDEUS/Acute Renal Failure Problem List: (1) Encephalopathy ICD Codes: G93.40 - Encephalopathy, unspecified Status: Acute (2) Essential hypertension ICD Codes: I10 - Essential (primary) hypertension Status: Acute (3) Hepatitis C, chronic ICD Codes: B18.2 - Chronic viral hepatitis C Status: Chronic (4) Abscess of right hand including fingers ICD Codes: L02.511 - Cutaneous abscess of right hand Status: Chronic (5) Abscess of left hand including fingers ICD Codes: L02.512 - Cutaneous abscess of left hand Status: Chronic (6) Alcoholism ICD Codes: F10.20 - Alcohol dependence, uncomplicated Status: Chronic (7) CHF (congestive heart failure) ICD Codes: I50.9 - Heart failure, unspecified Status: Acute (8) Sepsis ICD Codes: A41.9 - Sepsis, unspecified organism Status: Acute (9) ARF (acute renal failure) ICD Codes: N17.9 - Acute kidney failure, unspecified Status: Acute Plan Patient has Acute kidney injury and Creatinine now normalized. Na. is still low, Need to continue fluid restriction. Urine osmolality is high, possibly has SIADH. If not better, will try Samsca. Problem Qualifiers (1) Sepsis: Diane Barker MD Apr 08, 2017 16:35
[2017-04-08 20:00] VITALS: BP 121/63; PULSE 63; RESP 20; TEMP 97.6; O2SAT 97
[2017-04-08 20:31] LABS: ALT (GPT) 17 U/L (12-78); ANION GAP 8 MEQ/L (5-15); AST (GOT) 20 U/L (15-37); BICARBONATE 25.3 MEQ/L (21.0-32.0); BLOOD UREA NITROGEN 11 MG/DL (7-18); CHLORIDE 90 MEQ/L (98-107); GLOMERULAR FILTRATION RATE 105 ML/MIN (>89); POTASSIUM 4.1 MEQ/L (3.5-5.1)
[2017-04-08 20:36] LABS: ALKALINE PHOSPHATASE 92 U/L (45-117); SODIUM (NA) 123 MEQ/L (136-145); TOTAL BILIRUBIN ADULT 0.2 MG/DL (0.2-1.0)
[2017-04-08 23:32] VITALS: BP 104/57; PULSE 66; RESP 16; TEMP 99; O2SAT 96
[2017-04-09] MEDS: HYDROmorphone HCL PF 1 MG/ML VIAL IV PUSH PRN ×5 (01:40→20:55)
[2017-04-09 04:00] VITALS: BP 123/62; PULSE 68; RESP 18; TEMP 98.7; O2SAT 98
[2017-04-09] MEDS: oxyCODONE/ACETAMINOPHEN 10 MG/325 MG TAB PO PRN ×3 (04:17→14:14)
[2017-04-09] MEDS: LEVOTHYROXINE SODIUM 50 MCG TAB PO SCH (06:08)
[2017-04-09] MEDS: METHOCARBAMOL 500 MG TAB PO SCH ×3 (06:08→20:56)
[2017-04-09] MEDS: cloNIDine HCL 0.3 MG TAB PO SCH ×3 (06:08→22:50)
[2017-04-09] MEDS: MUPIROCIN 2% OINT 1 APPLIC/GM SYR NASAL SCH ×2 (07:50→20:55)
[2017-04-09 08:00] VITALS: BP 107/63; PULSE 60; RESP 18; TEMP 98.8; O2SAT 97
[2017-04-09] MEDS: MULTIVITAMIN TAB PO SCH (08:40)
[2017-04-09] MEDS: THIAMINE HCL 100 MG TAB PO SCH (08:40)
[2017-04-09] MEDS: CARVEDILOL 6.25 MG TAB PO SCH ×2 (08:40→21:00)
[2017-04-09] MEDS: LISINOPRIL 5 MG TAB PO SCH (08:47)
[2017-04-09] MEDS: SODIUM CHLORIDE 0.9% IV SCH (11:47)
[2017-04-09] MEDS: DAPTOMYCIN IV SCH (11:47)
[2017-04-09] MEDS: ENOXAPARIN SODIUM 40 MG/0.4 ML SYRINGE SQ SCH (11:47)
[2017-04-09 12:00] VITALS: BP 117/62; PULSE 66; RESP 18; TEMP 99.3; O2SAT 97
[2017-04-09 16:00] VITALS: BP 105/58; PULSE 59; RESP 18; TEMP 99.1; O2SAT 95
--- NOTE | 2017-04-09 16:39 | HHI.PR ---
Subjective Remarks No acute issue, hopefully discharge today, he stated electricity is now back in his house Objective Vitals Vital Signs Date Time Temp Pulse Resp B/P (MAP) Pulse Ox O2 Delivery O2 Flow Rate FiO2 04/09/17 12:00 99.3 66 18 117/62 (80) 97 04/09/17 08:15 Room Air 04/09/17 08:00 98.8 60 18 107/63 (78) 97 04/09/17 04:00 98.7 68 18 123/62 (82) 98 04/08/17 23:32 99.0 66 16 104/57 (73) 96 04/08/17 20:00 97.6 63 20 121/63 (82) 97 04/08/17 20:00 Room Air 04/08/17 18:26 16 I/O 04/08/17 04/08/17 04/08/17 04/09/17 04/09/17 04/09/17 07:00 15:00 23:00 07:00 15:00 23:00 Intake Total 680 ml 700 ml 120 ml 100 ml Output Total 1350 ml 2050 ml 800 ml Balance -670 ml -1350 ml -680 ml 100 ml Intake Oral 680 ml 600 ml 120 ml IV Total 100 ml 100 ml Output Urine Total 1350 ml 2050 ml 800 ml # Bowel Movements 0 2 0 Result Diagram: 04/06/1730 04/08/17 1834 Objective Remarks GENERAL: This is a well-nourished, well-developed patient, in no apparent distress. SKIN: No rashes, warm and dry HEAD: Atraumatic. Normocephalic. EYES: Pupils equal round and reactive. Extraocular motions intact. No scleral icterus. ENT: Nose without bleeding, or drainage, Airway patent. NECK: Trachea midline. Supple CARDIOVASCULAR: Regular rate and rhythm without murmurs, gallops, or rubs. RESPIRATORY: Fair air entry bilaterally. No wheezes, rales, or rhonchi. GASTROINTESTINAL: Abdomen soft, non-tender, nondistended. Positive bowel sounds MUSCULOSKELETAL:No cyanosis, or edema. Right amputation stump in gauze NEUROLOGICAL: Awake and alert. Moves all extremity. Normal speech.no focal neurological deficit Procedures 03/10/2017 - Dr. Bullock exploration, wash, excisional debridement extensor tenosynovium right wrist/forearm/hand 03/08/17 - Dr. Bullock- exploration, wash, excisional debridement skin, subcutaneous tissue, extensor tenosynovitis right wrist and hand. Findings: necrotic tissue, minimal purulence, extensor tenosynovitis right wrist/hand 03/04/17 - Dr Gamez - Right leg and incision and drainage. Right foot delayed primary closure x3 03/04/17 - Dr. Bullock - Extensor tenosynovectomy second, third, fourth extensor compartments right wrist and excisional debridement wash index finger metacarpal phalangeal joint, excisional wash and excisional debridement left hand. 02/28/17 - Dr. Reyes - Right ankle wound debridement and washout. Implantation of antibiotic vancomycin beads. 02/28/17 - Dr. Bullock - Exploration, wash, excisional debridement index finger metacarpophalangeal joint right hand; Exploration, wash, excisional debridement metacarpophalangeal joint left index finger; Exploration, wash, excisional debridement extensor pollicis longus tendon right thumb and hand. 02/26/17 - Dr. Reyes - Right ankle incision and drainage, arthrotomy, removal infected hardware, bone biopsy. 02/26/17 - Dr. Bullock - Exploration, incision and drainage right hand abscess, Arthrotomy wash metacarpal phalangeal joint right index finger, Arthrotomy wash metacarpal phalangeal joint left index finger. A/P Problem List: (1) Sepsis ICD Code: A41.9 - Sepsis, unspecified organism Status: Acute (2) Right foot infection ICD Code: L08.9 - Local infection of the skin and subcutaneous tissue, unspecified Status: Acute (3) Encephalopathy ICD Code: G93.40 - Encephalopathy, unspecified Status: Acute (4) Alcoholism ICD Code: F10.20 - Alcohol dependence, uncomplicated Status: Chronic (5) Hypothyroidism ICD Code: E03.9 - Hypothyroidism, unspecified Assessment and Plan A/p 61-year-old male admitted secondary to numerous infections including bilateral hands and right ankle. Previous history of right ankle. Patient also had encephalopathy secondary to infection and alcohol withdrawal time of admit. Encephalopathy has improved. Continued treatments of infections are ongoing. Hyponatremia: Still at 123 Mostly hypotonic due to excessive fluid patient is on iv fluid since March 13, I discussed with Dr. 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 distant showering of emboli to other joints. MRSA bacteremia Right ankle hardware infection, s/p partial removal of hardware. Deeper hardware embedded. SP RIGHT BKA Bilateral UE hand abscess and tenosynovitis, septic arthritis s.p multiple debridements. Recent fever on 03/25 (resolved) CXR showed possible b/l infiltrate but no clinical respiratory symptoms, UTI with + UA , lactic acidosis (improved), on zosyn with dapto Antibiotic per ID Plan for long-term IV antibiotics, rifampin for 6 weeks Likely will need fpc facility placement Continue oxycodone and Dilaudid for pain May still need further surgical intervention Hand surgeon following Podiatry following ID following Multiple surgeries thus far: - podiatry Dr. Reyes/Dr. Gamez on 02/26, 02/28, 03/04 - hand surgeon Dr. Bullock on 02/26, 02/28, 03/04, 03/08, 03/10 Status post I&D of right elbow. Continue wound care. Robaxin started for muscle spasms. Anemia Most recent hemoglobin is 8.0 Follow CBC Status post blood transfusion Acute Toxic/Metabolic Encephalopathy secondary to Sepsis Acute Alcohol Withdrawal Hypertension Continue clonidine and Coreg, cardiology initiate low dose lisinopril, monitor renal function Follow blood pressures Adjust as needed for control Mild Systolic CHF Scrotal edema EF of 40-45% with global hypokinesis found on 02/28/17 Continue beta amarjit Following BMP, consider initiating diuresis, (patient recently had fever and lactic acidosis) HYPOTHYROIDISM START SYNTHROID 50MCG DAILY THADDEUS mostly vanco induced Monitor renal function Avoid nephrotoxins Previous event was likely secondary to ATN Nephrology following Urinary retention Monitor urine output Hepatitis C Standard precautions Dysphagia: Improved patient on regular diet Dietitian to assess tapering tube feed DVT Prophylaxis Lovenox Problem Qualifiers (1) Sepsis: Kg Zaragoza MD Apr 09, 2017 16:39
[2017-04-09] MEDS: ACETAMINOPHEN/HYDROcodone 325 MG/7.5 MG TAB PO PRN ×2 (18:24→22:51)
--- NOTE | 2017-04-09 19:26 | HHI.NPPN ---
Subjective History of Present Illness 61 year old male with past medical history of hypertension, history of being homeless. He was admitted on February 25 with altered mental status and leukocytosis. I was called to see the patient because of elevated BUN and creatinine. Additional Remarks patient as he has Hyponatremia. Patient has Rt. BKA done, still not eating well. Objective Data Data 04/09/17 04/10/17 19:00 07:00 Intake Total 820 ml Output Total 1050 ml Balance -230 ml Intake Oral 720 ml IV Total 100 ml Output Urine Total 1050 ml # Bowel Movements 0 Vital Signs Date Time Temp Pulse Resp B/P (MAP) Pulse Ox O2 Delivery O2 Flow Rate FiO2 04/09/17 16:00 Room Air 04/09/17 16:00 99.1 59 18 105/58 (74) 95 04/09/17 12:00 Room Air 04/09/17 12:00 99.3 66 18 117/62 (80) 97 04/09/17 08:15 Room Air 04/09/17 08:00 98.8 60 18 107/63 (78) 97 04/09/17 04:00 98.7 68 18 123/62 (82) 98 04/08/17 23:32 99.0 66 16 104/57 (73) 96 04/08/17 20:00 97.6 63 20 121/63 (82) 97 04/08/17 20:00 Room Air -: 04/06/17 0830 04/08/17 1834 Physical Exam General Appearance: No Acute Distress, Anxious Eyes Eye Exam: Pupils Equal Throat Throat Exam: Oral Mucosa [place] & Moist Neck Neck Exam: Neck Supple Pulmonary Resp Exam: Breath Sounds Equal, No Distress, Rhonchi, Decreased Bases Cardiology CV Exam: Regular, Normal Sinus Rhythm Gastrointestinal/Abdomen GI Exam: Soft, Non-Tender, Bowel Sounds Present Extremeties Extremities Exam: Trace Edema Neurologic Neuro Exam: Alert, Awake Assessment/Plan Assessment Summary: THADDEUS/Acute Renal Failure Problem List: (1) Encephalopathy ICD Codes: G93.40 - Encephalopathy, unspecified Status: Acute (2) Essential hypertension ICD Codes: I10 - Essential (primary) hypertension Status: Acute (3) Hepatitis C, chronic ICD Codes: B18.2 - Chronic viral hepatitis C Status: Chronic (4) Abscess of right hand including fingers ICD Codes: L02.511 - Cutaneous abscess of right hand Status: Chronic (5) Abscess of left hand including fingers ICD Codes: L02.512 - Cutaneous abscess of left hand Status: Chronic (6) Alcoholism ICD Codes: F10.20 - Alcohol dependence, uncomplicated Status: Chronic (7) CHF (congestive heart failure) ICD Codes: I50.9 - Heart failure, unspecified Status: Acute (8) Sepsis ICD Codes: A41.9 - Sepsis, unspecified organism Status: Acute (9) ARF (acute renal failure) ICD Codes: N17.9 - Acute kidney failure, unspecified Status: Acute Plan Patient has Acute kidney injury and Creatinine now normalized. Na. is low, was high when he was not able to take orally. NaCl PO . give 1 dose of Samsca as Urine osmo higher and serum Na is 123 ? SIADH Need fluid restriction. Problem Qualifiers (1) Sepsis: Meagan Lockhart MD Apr 09, 2017 19:26
[2017-04-09] MEDS ORDERED: TOLVAPTAN 15 MG TAB PO ONE (19:30)
[2017-04-09 20:00] VITALS: BP 117/57; PULSE 55; RESP 18; TEMP 98.4; O2SAT 96
[2017-04-09] MEDS: PANTOPRAZOLE SODIUM 40 MG VIAL IV PUSH SCH ×2 (22:52)
[2017-04-10] VITALS: BP 113/59; PULSE 55; RESP 18; TEMP 98; O2SAT 98
[2017-04-10] MEDS: HYDROmorphone HCL PF 1 MG/ML VIAL IV PUSH PRN ×2 (02:39→20:54)
[2017-04-10 04:00] VITALS: BP 110/60; PULSE 58; RESP 18; TEMP 97.4; O2SAT 94
[2017-04-10] MEDS: cloNIDine HCL 0.3 MG TAB PO SCH ×2 (06:16→12:33)
[2017-04-10] MEDS: LEVOTHYROXINE SODIUM 50 MCG TAB PO SCH (06:16)
[2017-04-10] MEDS: ACETAMINOPHEN/HYDROcodone 325 MG/7.5 MG TAB PO PRN ×4 (06:17→22:13)
[2017-04-10] MEDS: METHOCARBAMOL 500 MG TAB PO SCH ×3 (06:17→20:52)
[2017-04-10 08:04] VITALS: BP 100/50; PULSE 53; RESP 18; TEMP 98.1; O2SAT 98
[2017-04-10] MEDS: LISINOPRIL 5 MG TAB PO SCH (09:00)
[2017-04-10] MEDS: CARVEDILOL 6.25 MG TAB PO SCH ×2 (09:00→20:52)
[2017-04-10] MEDS: MUPIROCIN 2% OINT 1 APPLIC/GM SYR NASAL SCH ×2 (09:23→20:54)
[2017-04-10] MEDS: THIAMINE HCL 100 MG TAB PO SCH (09:24)
[2017-04-10] MEDS: MULTIVITAMIN TAB PO SCH (09:24)
--- NOTE | 2017-04-10 10:15 | HHI.NPPN ---
Subjective History of Present Illness 61 year old male with past medical history of hypertension, history of being homeless. He was admitted on February 25 with altered mental status and leukocytosis. I was called to see the patient because of elevated BUN and creatinine. Additional Remarks No BMP available since the . He was given a dose of Tolvaptan yesterday. 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 Objective Data Data Vital Signs Date Time Temp Pulse Resp B/P (MAP) Pulse Ox O2 Delivery O2 Flow Rate FiO2 04/10/17 08:04 98.1 53 18 100/50 (67) 98 04/10/17 04:00 97.4 58 18 110/60 (77) 94 04/10/17 00:00 98.0 55 18 113/59 (77) 98 04/09/17 20:00 Room Air 04/09/17 20:00 98.4 55 18 117/57 (77) 96 04/09/17 16:00 Room Air 04/09/17 16:00 99.1 59 18 105/58 (74) 95 04/09/17 12:00 Room Air 04/09/17 12:00 99.3 66 18 117/62 (80) 97 -: 04/06/17 0830 04/08/17 1834 Physical Exam General Appearance: No Acute Distress, Anxious Eyes Eye Exam: Pupils Equal Throat Throat Exam: Oral Mucosa Neihart & Moist Neck Neck Exam: Neck Supple Pulmonary Resp Exam: Breath Sounds Equal, No Distress, Rhonchi, Decreased Bases Cardiology CV Exam: Regular, Normal Sinus Rhythm Gastrointestinal/Abdomen GI Exam: Soft, Non-Tender, Bowel Sounds Present Extremeties Extremities Exam: Trace Edema Neurologic Neuro Exam: Alert, Awake Assessment/Plan Assessment Summary: THADDEUS/Acute Renal Failure Problem List: (1) Encephalopathy ICD Codes: G93.40 - Encephalopathy, unspecified Status: Acute (2) Essential hypertension ICD Codes: I10 - Essential (primary) hypertension Status: Acute (3) Hepatitis C, chronic ICD Codes: B18.2 - Chronic viral hepatitis C Status: Chronic (4) Abscess of right hand including fingers ICD Codes: L02.511 - Cutaneous abscess of right hand Status: Chronic (5) Abscess of left hand including fingers ICD Codes: L02.512 - Cutaneous abscess of left hand Status: Chronic (6) Alcoholism ICD Codes: F10.20 - Alcohol dependence, uncomplicated Status: Chronic (7) CHF (congestive heart failure) ICD Codes: I50.9 - Heart failure, unspecified Status: Acute (8) Sepsis ICD Codes: A41.9 - Sepsis, unspecified organism Status: Acute (9) ARF (acute renal failure) ICD Codes: N17.9 - Acute kidney failure, unspecified Status: Acute Plan Patient has Acute kidney injury and Creatinine now normalized. Hyponatremia is noted, however no labs since the . He was given Tolvaptan yesterday. 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 Repeat labs. Problem Qualifiers (1) Sepsis: Guille Cheng MD Apr 10, 2017 10:15
[2017-04-10 12:04] VITALS: BP 130/74; PULSE 68; RESP 18; TEMP 97.8; O2SAT 98
[2017-04-10] MEDS: SODIUM CHLORIDE 0.9% IV SCH (12:26)
[2017-04-10] MEDS: ENOXAPARIN SODIUM 40 MG/0.4 ML SYRINGE SQ SCH (12:26)
[2017-04-10] MEDS: DAPTOMYCIN IV SCH (12:26)
--- NOTE | 2017-04-10 12:50 | HHI.PR ---
Subjective Remarks in no acute distress. no fever. has some back pain. BP trend noted. d/w the RN. Objective Vitals Vital Signs Date Time Temp Pulse Resp B/P (MAP) Pulse Ox O2 Delivery O2 Flow Rate FiO2 04/10/17 12:04 97.8 68 18 130/74 (92) 98 04/10/17 08:04 98.1 53 18 100/50 (67) 98 04/10/17 04:00 97.4 58 18 110/60 (77) 94 04/10/17 00:00 98.0 55 18 113/59 (77) 98 04/09/17 20:00 Room Air 04/09/17 20:00 98.4 55 18 117/57 (77) 96 04/09/17 16:00 Room Air 04/09/17 16:00 99.1 59 18 105/58 (74) 95 I/O 04/09/17 04/09/17 04/09/17 04/10/17 04/10/17 04/10/17 07:00 15:00 23:00 07:00 15:00 23:00 Intake Total 120 ml 100 ml 720 ml 120 ml Output Total 800 ml 1050 ml 4900 ml Balance -680 ml 100 ml -330 ml -4780 ml Intake Oral 120 ml 720 ml 120 ml IV Total 100 ml Output Urine Total 800 ml 1050 ml 4900 ml # Bowel Movements 0 0 Result Diagram: 04/06/17 0830 04/08/17 1834 Imaging Last Impressions Chest X-Ray 03/29/17 0000 Signed Impressions: Service Date/Time: Wednesday, March 29, 2017 12:17 - CONCLUSION: Stable chest. Isaac Stevenson MD FACR Tumor Localization 03/22/17 0000 Signed Impressions: Service Date/Time: Wednesday, March 22, 2017 13:03 - CONCLUSION: Nondiagnostic examination secondary to patient refusal Harry Lucio MD Abdomen X-Ray 03/08/17 0000 Signed Impressions: Service Date/Time: Wednesday, March 08, 2017 10:30 - CONCLUSION: Nonspecific, negative for obstruction or ileus. Isaac Stevenson MD FACR Lower Extremity CT 03/01/17 0000 Signed Impressions: Service Date/Time: Wednesday, March 01, 2017 11:12 - CONCLUSION: 1. No evidence of organized fluid collections to suggest an abscess. 2. Extensive soft tissue swelling surrounding the ankle and extending to the forefoot especially along the lateral aspect. 3. No erosive or destructive bone changes. 4. Bone defects compatible with previous excision device. Blake Rider MD Ankle X-Ray 02/26/17 0000 Signed Impressions: Service Date/Time: Sunday, February 26, 2017 17:15 - CONCLUSION: I see no retained surgical instruments. Isaac Stevenson MD FACR Upper Extremity Ultrasound 02/25/17 1734 Signed Impressions: Service Date/Time: February 17:54 - CONCLUSION: There is a thin fluid collection within the focal area of soft tissue swelling 2nd digit. Oscar Cassidy MD Hand X-Ray 02/25/17 0000 Signed Impressions: Service Date/Time: February 18:59 - CONCLUSION: No gross bony abnormality. Oscar Cassidy MD Lower Extremity Ultrasound 02/24/17 0000 Signed Impressions: Service Date/Time: Friday, February 24, 2017 13:41 - CONCLUSION: Negative for deep venous thrombosis. Isaac Stevenson MD FACR Head CT 02/24/17 0000 Signed Impressions: Service Date/Time: Friday, February 24, 2017 16:08 - CONCLUSION: 1. No acute intracranial abnormality. 2. Probable large mucocele in the sphenoid sinus. Ty Hankins MD Abdomen/Pelvis CT 02/24/17 0000 Signed Impressions: Service Date/Time: Friday, February 24, 2017 16:16 - CONCLUSION: 1. Marked gaseous distension of large and small bowel most suggestive of ileus. 2. There is no free air. 3. 2.2 cm left adrenal mass. 4. Distended bladder. Isaac Stevenson MD FACR Objective Remarks GENERAL: This is a well-nourished, well-developed patient, in no apparent distress. CARDIOVASCULAR: Regular rate and regular rhythm without murmurs, gallops, or rubs. RESPIRATORY: Clear to auscultation. Breath sounds equal bilaterally. No wheezes , rales, or rhonchi. GASTROINTESTINAL: Abdomen soft, non-tender, nondistended. Normal, active bowel sounds MUSCULOSKELETAL: right forearm covered with clean dressing- s/p right BKA NEURO: Alert & Oriented x4 to person, place, time, situation. Moves all ext x4 Procedures 03/10/2017 - Dr. Bullock exploration, wash, excisional debridement extensor tenosynovium right wrist/forearm/hand 03/08/17 - Dr. Bullock- exploration, wash, excisional debridement skin, subcutaneous tissue, extensor tenosynovitis right wrist and hand. Findings: necrotic tissue, minimal purulence, extensor tenosynovitis right wrist/hand 03/04/17 - Dr Gamez - Right leg and incision and drainage. Right foot delayed primary closure x3 03/04/17 - Dr. Bullock - Extensor tenosynovectomy second, third, fourth extensor compartments right wrist and excisional debridement wash index finger metacarpal phalangeal joint, excisional wash and excisional debridement left hand. 02/28/17 - Dr. Reyes - Right ankle wound debridement and washout. Implantation of antibiotic vancomycin beads. 02/28/17 - Dr. Bullock - Exploration, wash, excisional debridement index finger metacarpophalangeal joint right hand; Exploration, wash, excisional debridement metacarpophalangeal joint left index finger; Exploration, wash, excisional debridement extensor pollicis longus tendon right thumb and hand. 02/26/17 - Dr. Reyes - Right ankle incision and drainage, arthrotomy, removal infected hardware, bone biopsy. 02/26/17 - Dr. Bullock - Exploration, incision and drainage right hand abscess, Arthrotomy wash metacarpal phalangeal joint right index finger, Arthrotomy wash metacarpal phalangeal joint left index finger. Medications and IVs Current Medications Sodium Chloride 1,000 ml @ 999 mls/hr BOLUS ONCE IV Last administered on 13:38; Start 02/24/17 at 13:45; Stop 02/24/17 at 14:45; Status DC IV Flush (NS Flush) 2 ml UNSCH PRN IV FLUSH FLUSH AFTER USING IV ACCESS Last administered on 02/24/17 13:38; Start 02/24/17 at 13:45 Vancomycin HCl 1000 mg/Sodium Chloride 250 ml @ 250 mls/hr ONCE STAT IV Last administered on 02/24/17 15:49; Start 02/24/17 at 15:35; Stop 02/24/17 at 16:34; Status DC Cefepime HCl 2000 mg/Sodium Chloride 100 ml @ 200 mls/hr ONCE STAT IV Last administered on 02/24/17 16:36; Start 02/24/17 at 15:35; Stop 02/24/17 at 16:04; Status DC Potassium Bicarb/ Potassium Chloride (K-Lyte Cl Eff) 50 meq ONCE ONCE PO Last administered on 02/24/17 15:56; Start 02/24/17 at 16:00; Stop 02/24/17 at 16: 01; Status DC Iohexol (Omnipaque 350 Inj) 97 ml STK-MED ONCE IV Last administered on 16:29; Start 02/24/17 at 16:29; Stop 02/24/17 at 16:30; Status DC Sodium Chloride 1,000 ml @ 125 mls/hr Q8H IV Last administered on 03/02/17 09: 33; Start 02/24/17 at 18:00; Stop 03/02/17 at 13:08; Status DC Ondansetron HCl (Zofran Inj) 4 mg Q8HR PRN IV PUSH NAUSEA; Start 02/24/17 at 18: 00 Thiamine HCl (Vitamin B1) 100 mg ONCE ONCE PO Last administered on 02/24/17 20 :20; Start 02/24/17 at 20:15; Stop 02/24/17 at 20:16; Status DC Thiamine HCl (Vitamin B1) 100 mg DAILY PO Last administered on 04/10/17 09:24 ; Start 02/25/17 at 09:00 Potassium Chloride 100 ml @ 50 mls/hr Q2H IV Last administered on 02/24/17 22: 59; Start 02/24/17 at 20:30; Stop 02/25/17 at 00:29; Status DC Pharmacy Profile Note 0 ml @ 0 mls/hr UNSCH OTHER ; Start 02/24/17 at 20:15; Stop 03/02/17 at 13:23; Status DC Cefepime HCl 2000 mg/Sodium Chloride 100 ml @ 200 mls/hr Q12H IV Last administered on 02/27/17 05:51; Start 02/25/17 at 07:00; Stop 02/27/17 at 14:53; Status DC Vancomycin HCl 1500 mg/Sodium Chloride 515 ml @ 257.5 mls/ hr Q18H IV Last administered on 02/25/17 10:30; Start 02/25/17 at 10:00; Stop 02/25/17 at 11:30; Status DC Miscellaneous Information SPECIFIC LAB TO BE DRAWN:VANCO TROUGH DATE TO BE DR... ONCE ONCE .XX ; Start 02/26/17 at 21:45; Stop 02/26/17 at 21:46; Status DC Flumazenil (Romazicon Inj) 0.2 mg Q1M PRN IV PUSH SEE LABEL COMMENTS; Start 02/25/17 at 09:15 Lorazepam (Ativan) 1 mg Q4H PRN PO agitation Last administered on 03/20/17 03: 18; Start 02/25/17 at 09:15 Lorazepam (Ativan Inj) 1 mg Q4H PRN IV PUSH agitation when not taking po Last administered on 03/05/17 02:41; Start 02/25/17 at 09:15 Lorazepam (Ativan) 2 mg Q2H PRN PO CIWA 11-14; Start 02/25/17 at 09:15; Stop 02/28/17 at 07:44; Status DC Lorazepam (Ativan Inj) 2 mg Q2H PRN IV PUSH CIWA 11-14 Last administered on 02/26 18:14; Start 02/25/17 at 09:15; Stop 02/28/17 at 07:44; Status DC Lorazepam (Ativan Inj) 2 mg Q1H PRN IV PUSH CIWA 15-20 Last administered on 02/25 21:37; Start 02/25/17 at 09:15; Stop 02/28/17 at 07:44; Status DC Lorazepam (Ativan Inj) 2 mg Q15M PRN IV PUSH CIWA > 20 Last administered on 02/26 06:25; Start 02/25/17 at 09:15; Stop 02/28/17 at 07:44; Status DC Multivitamins (Theragran) 1 tab DAILY PO Last administered on 04/10/17 09:24; Start 02/26/17 at 09:00 Acetaminophen (Tylenol) 650 mg Q4H PRN PO FEVER Last administered on 03/07/17 04:47; Start 02/25/17 at 09:15; Stop 03/12/17 at 10:47; Status DC Lisinopril (Prinivil) 10 mg DAILY PO ; Start 02/26/17 at 09:00; Stop 03/08/17 at 21:09; Status DC Enoxaparin Sodium (Lovenox Inj) 40 mg Q24H SQ Last administered on 03/07/17 10 :00; Start 02/25/17 at 10:00; Stop 03/10/17 at 12:17; Status DC Vancomycin HCl 1500 mg/Sodium Chloride 515 ml @ 257.5 mls/ hr Q12H IV Last administered on 02/26/17 09:42; Start 02/25/17 at 22:00; Stop 02/26/17 at 12:06; Status DC Miscellaneous Information SPECIFIC LAB TO BE BIA... ONCE ONCE .XX Last administered on 02/26/17 09:45; Start 02/26/17 at 09:45; Stop 02/26/17 at 09:46; Status DC Chlordiazepoxide (Librium) 25 mg Q8H PO ; Start 02/25/17 at 17:00; Stop 02/25/17 at 20:24; Status DC Gentamicin Sulfate 70 mg/ Sodium Chloride 101.75 ml @ 100 mls/ hr ONCE ONCE IV Last administered on 02/25/17 18:51; Start 02/25/17 at 18:30; Stop 02/25/17 at 19:31; Status DC Dexmedetomidine HCl 200 mcg/ Sodium Chloride 52 ml @ 0 mls/hr TITRATE IV Last administered on 02/27/17 13:55; Start 02/25/17 at 17:30; Stop 03/09/17 at 23:34; Status DC Acetaminophen (Ofirmev Inj) 650 mg Q6H PRN IV TEMP >101 Last administered on 20:12; Start 02/25/17 at 21:00 Iohexol (Omnipaque 350 Inj) 75 ml STK-MED ONCE IV Last administered on 21:15; Start 02/25/17 at 21:15; Stop 02/25/17 at 21:16; Status DC Potassium Chloride 100 ml @ 50 mls/hr Q2H PRN IV For Potassium 2.8 - 3.2 mEq/L ; Start 02/25/17 at 22:45; Stop 03/01/17 at 23:53; Status DC Potassium Chloride 100 ml @ 50 mls/hr Q2H PRN IV For Potassium 2.8 - 3.2 mEq/ L Last administered on 02/28/17 12:32; Start 02/25/17 at 22:45; Stop 03/01/17 at 23:53; Status DC Potassium Bicarb/ Potassium Chloride (K-Lyte Cl Eff) 50 meq UNSCH PRN PO For Potassium 3.3 - 3.5 mEq/L; Start 02/25/17 at 22:45; Stop 03/01/17 at 23:53; Status DC Potassium Chloride 100 ml @ 25 mls/hr UNSCH PRN IV For Potassium 3.3 - 3.5 mEq /L; Start 02/25/17 at 22:45; Stop 03/01/17 at 23:53; Status DC Potassium Chloride 100 ml @ 50 mls/hr Q2H PRN IV For Potassium 3.3 - 3.5 mEq/ L Last administered on 02/28/17 06:39; Start 02/25/17 at 22:45; Stop 03/01/17 at 23:53; Status DC Magnesium Sulfate 4 gm/Sodium Chloride 100 ml @ 50 mls/hr UNSCH PRN IV For Magnesium 0.9 - 1.1 mg/dL; Start 02/25/17 at 22:45; Stop 03/01/17 at 23:53; Status DC Magnesium Oxide (Mag-Ox) 800 mg UNSCH PRN PO For Magnesium 1.2 - 1.6 mg/dL; Start 02/25/17 at 22:45; Stop 03/01/17 at 23:53; Status DC Magnesium Sulfate 2 gm/Sodium Chloride 100 ml @ 50 mls/hr UNSCH PRN IV For Magnesium 1.2 - 1.6 mg/dL; Start 02/25/17 at 22:45; Stop 03/01/17 at 23:53; Status DC Potassium Phosphate (K-Phos) 2,000 mg Q4H PRN PO For Phosphorus < 2.5 mg/dL; Start 02/25/17 at 22:45; Stop 03/01/17 at 23:53; Status DC Sodium Phosphate 30 mmol/Sodium Chloride 250 ml @ 42 mls/hr UNSCH PRN IV For Phosphorus < 2.5 mg/dL Last administered on 02/26/17 23:19; Start 02/25/17 at 22: 45; Stop 03/01/17 at 23:53; Status DC Potassium Phosphate (K-Phos) 2,000 mg UNSCH PRN PO/TUBE SEE LABEL COMMENTS; Start 02/25/17 at 22:45; Stop 03/01/17 at 23:53; Status DC Potassium Phosphate 30 mmol/ Sodium Chloride 260 ml @ 42 mls/hr UNSCH PRN IV SEE LABEL COMMENTS; Start 02/25/17 at 22:45; Stop 03/01/17 at 23:53; Status DC Labetalol HCl (Trandate Inj) 10 mg Q6H PRN IV PUSH SBP >165; Start 02/25/17 at 23:15 Pantoprazole Sodium (Protonix Inj) 40 mg Q24H IV PUSH Last administered on 04/09 22:52; Start 02/26/17 at 00:00 Miscellaneous Information Patient in critical care unit? Ass... [id number] .XX ; Start 02/26/17 at 07:15 Mupirocin (Bactroban Nasal 2% Oint) 1 applic BID NASAL Last administered on 09:23; Start 02/26/17 at 09:00 Chlorhexidine Gluconate (Chlorhexidine 2% Cloth) 3 pack DAILY@04 TOPICAL Last administered on 03/03/17 04:00; Start 02/27/17 at 04:00; Stop 03/03/17 at 04:01; Status DC Chlorhexidine Gluconate (Chlorhexidine 2% Cloth) 3 pack UNSCH PRN TOPICAL HYGIENIC CARE; Start 02/26/17 at 07:15; Stop 03/03/17 at 07:07; Status DC Lidocaine HCl (Xylocaine 2% Inj) 50 ml STK-MED ONCE .ROUTE ; Start 02/26/17 at 09 :35; Stop 02/26/17 at 09:36; Status DC Bupivacaine HCl (Marcaine Pf 0.5% Inj) 60 ml STK-MED ONCE .ROUTE ; Start at 09:35; Stop 02/26/17 at 09:36; Status DC Mupirocin (Bactroban 2% Oint) 22 applic STK-MED ONCE .ROUTE ; Start 02/26/17 at 09:35; Stop 02/26/17 at 09:36; Status DC Vancomycin HCl 1250 mg/Sodium Chloride 262.5 ml @ 250 mls/hr Q12H IV Last administered on 03/02/17 09:33; Start 02/26/17 at 22:00; Stop 03/02/17 at 13:23; Status DC Miscellaneous Information SPECIFIC LAB TO BE BIA... ONCE ONCE .XX Last administered on 02/27/17 22:46; Start 02/27/17 at 21:45; Stop 02/27/17 at 21:46; Status DC Neomycin/Polymyxin (Neosporin G.u. Irr) 3 ml STK-MED ONCE TOPICAL Last administered on 02/26/17 13:06; Start 02/26/17 at 13:06; Stop 02/26/17 at 16:26; Status DC Neomycin/Polymyxin (Neosporin G.u. Irr) 4 ml STK-MED ONCE TOPICAL Last administered on 02/26/17 15:47; Start 02/26/17 at 15:47; Stop 02/26/17 at 16:26; Status DC Fentanyl Citrate (fentaNYL INJ) 250 mcg STK-MED ONCE .ROUTE ; Start 02/26/17 at 18:16; Stop 02/26/17 at 18:17; Status DC Fentanyl Citrate (fentaNYL INJ) 100 mcg STK-MED ONCE .ROUTE ; Start 02/26/17 at 18:16; Stop 02/26/17 at 18:17; Status DC Miscellaneous Information ALL NURSING DEPARTME... UNSCH PRN .XX SEE LABEL COMMENTS; Start 02/26/17 at 17:57; Stop 02/27/17 at 17:56; Status DC Clonidine (Catapres) 0.3 mg Q8HR PO Last administered on 04/10/17 12:33; Start 02/26/17 at 22:11 Diazepam (Valium) 5 mg Taper DAILY PO Last administered on 03/06/17 09:49; Start 02/26/17 at 22:15; Stop 03/06/17 at 22:14; Status DC Water (Free Water) 200 ml Q8HR G-TUBE Last administered on 02/27/17 22:31; Start 02/27/17 at 06:55; Stop 02/28/17 at 07:41; Status DC Rifampin 300 mg/ Sodium Chloride 100 ml @ 100 mls/hr Q12H IV Last administered on 03/02/17 14:41; Start 02/27/17 at 15:00; Stop 03/02/17 at 16:41; Status DC Oxycodone HCl (Roxicodone) 5 mg Q4H PRN PO pain 1-5 Last administered on 09:26; Start 02/28/17 at 07:45; Stop 04/09/17 at 17:08; Status DC Hydromorphone HCl (Dilaudid Pf Inj) 0.5 mg Q3H PRN IV PUSH pain 6-10 or not taking po Last administered on 04/09/17 16:51; Start 02/28/17 at 07:45; Stop at 17:08; Status DC Water (Free Water) 300 ml Q4HR G-TUBE Last administered on 03/02/17 20:00; Start 02/28/17 at 08:00; Stop 03/02/17 at 23:07; Status DC Vancomycin HCl (Vancomycin Inj) 1,000 mg STK-MED ONCE .ROUTE Last administered on 02/28/17 09:01; Start 02/28/17 at 09:01; Stop 02/28/17 at 09:02; Status DC Vancomycin HCl (Vancomycin Inj) 1,000 mg STK-MED ONCE .ROUTE Last administered on 02/28/17 09:33; Start 02/28/17 at 09:33; Stop 02/28/17 at 09:34; Status DC Vancomycin HCl (Vancomycin Inj) 1,000 mg STK-MED ONCE .ROUTE Last administered on 02/28/17 09:36; Start 02/28/17 at 09:33; Stop 02/28/17 at 09:34; Status DC Daptomycin 450 mg/ Sodium Chloride 100 ml @ 200 mls/hr Q24H IV Last administered on 03/05/17 13:41; Start 02/28/17 at 12:00; Stop 03/05/17 at 18:00 ; Status DC Vancomycin HCl (Vancomycin Inj) 1,000 mg STK-MED ONCE .ROUTE Last administered on 02/28/17 10:45; Start 02/28/17 at 10:42; Stop 02/28/17 at 10:43; Status DC Vancomycin HCl (Vancomycin Inj) 500 mg STK-MED ONCE .ROUTE Last administered on 02/28/17 10:45; Start 02/28/17 at 10:42; Stop 02/28/17 at 10:43; Status DC Fentanyl Citrate (fentaNYL INJ) 250 mcg STK-MED ONCE .ROUTE ; Start 02/28/17 at 11:48; Stop 02/28/17 at 11:49; Status DC Miscellaneous Information ALL NURSING DEPARTME... UNSCH PRN .XX SEE LABEL COMMENTS; Start 02/28/17 at 11:33; Stop 03/01/17 at 11:32; Status DC Miscellaneous Information SPECIFIC LAB TO BE BIA... ONCE ONCE .XX ; Start 03/04 at 09:45; Stop 03/04/17 at 09:46; Status Cancel Sodium Chloride 1,000 ml @ 999 mls/hr BOLUS ONCE IV Last administered on 13:28; Start 03/02/17 at 13:15; Stop 03/02/17 at 14:15; Status DC Sodium Chloride 1,000 ml @ 125 mls/hr Q8H IV Last administered on 03/02/17 14: 18; Start 03/02/17 at 13:15; Stop 03/02/17 at 14:30; Status DC Rifampin (Rifampin) 300 mg Q12HR PO Last administered on 03/23/17 08:42; Start 03/02/17 at 21:00; Stop 03/23/17 at 18:40; Status DC Potassium Chloride 20 meq/ Sodium Chloride 38.5 meq/Sterile Water 1,010 ml @ 55 mls/hr [id number] IV Last administered on 03/09/17 22:51; Start 03/03/17 at 11: 00; Stop 03/09/17 at 23:36; Status DC Furosemide (Lasix Inj) 20 mg ONCE ONCE IV PUSH Last administered on 03/03/17 10:19; Start 03/03/17 at 09:30; Stop 03/03/17 at 09:43; Status DC Carvedilol (Coreg) 6.25 mg Q12HR PO Last administered on 04/09/17 08:40; Start 03/03/17 at 21:00; Stop 04/10/17 at 03:26; Status DC Vancomycin HCl (Vancomycin Inj) 1,000 mg STK-MED ONCE .ROUTE Last administered on 03/04/17 15:52; Start 03/04/17 at 15:10; Stop 03/04/17 at 15:11; Status DC Fentanyl Citrate (fentaNYL INJ) 100 mcg STK-MED ONCE .ROUTE ; Start 03/04/17 at 16:38; Stop 03/04/17 at 16:39; Status DC Fentanyl Citrate (fentaNYL INJ) 250 mcg STK-MED ONCE .ROUTE ; Start 03/04/17 at 16:38; Stop 03/04/17 at 16:39; Status DC Vancomycin HCl (Vancomycin Inj) 1,000 mg STK-MED ONCE .ROUTE Last administered on 03/04/17 16:52; Start 03/04/17 at 16:59; Stop 03/04/17 at 17:00; Status DC Fentanyl Citrate (fentaNYL INJ) 100 mcg STK-MED ONCE .ROUTE ; Start 03/04/17 at 18:24; Stop 03/04/17 at 18:25; Status DC Fentanyl Citrate (fentaNYL INJ) 250 mcg STK-MED ONCE .ROUTE ; Start 03/04/17 at 18:25; Stop 03/04/17 at 18:26; Status DC Miscellaneous Information ALL NURSING DEPARTME... UNSCH PRN .XX SEE LABEL COMMENTS; Start 03/04/17 at 19:15; Stop 03/05/17 at 19:14; Status DC Daptomycin 550 mg/ Sodium Chloride 100 ml @ 200 mls/hr Q24H IV Last administered on 04/10/17 12:26; Start 03/06/17 at 12:00 Bisacodyl (Dulcolax Supp) 10 mg DAILY PRN RECTAL SEVERE CONSITIPATION; Start at 21:00 Lactulose (Lactulose Liq) 30 ml DAILY PRN NG SEVERE CONSITIPATION Last administered on 03/07/17 18:45; Start 03/06/17 at 21:00 Docusate Sodium (Colace Liq) 100 mg Q12HR PO Last administered on 03/09/17 09: 30; Start 03/06/17 at 21:15; Status Future Hold Sodium Chloride 250 ml @ 15 mls/hr ONCE ONCE IV Last administered on 00:27; Start 03/07/17 at 19:00; Stop 03/08/17 at 12:06; Status DC Furosemide (Lasix Inj) 20 mg ONCE ONCE IV Last administered on 03/08/17 03:49 ; Start 03/07/17 at 19:00; Stop 03/07/17 at 19:01; Status DC Polyethylene Glycol/ Electrolytes (Colyte Liq) 4,000 ml ONCE ONCE PO ; Start at 11:00; Stop 03/08/17 at 11:01; Status Cancel Mupirocin (Bactroban 2% Oint) 22 applic STK-MED ONCE .ROUTE ; Start 03/08/17 at 12:10; Stop 03/08/17 at 12:11; Status DC Lidocaine HCl (Xylocaine 2% Inj) 50 ml STK-MED ONCE .ROUTE ; Start 03/08/17 at 12:13; Stop 03/08/17 at 12:14; Status DC Bupivacaine HCl (Marcaine Pf 0.5% Inj) 30 ml STK-MED ONCE .ROUTE ; Start at 12:17; Stop 03/08/17 at 12:18; Status DC Famotidine (Pepcid Inj) 20 mg STK-MED ONCE .ROUTE ; Start 03/08/17 at 13:17; Stop 03/08/17 at 13:18; Status DC Vancomycin HCl (Vancomycin Inj) 1,000 mg STK-MED ONCE .ROUTE Last administered on 03/08/17 14:35; Start 03/08/17 at 14:07; Stop 03/08/17 at 14:08; Status DC Sodium Chloride (Sodium Chloride 0.9% Inj) 20 ml STK-MED ONCE .ROUTE ; Start at 14:07; Stop 03/08/17 at 14:08; Status DC Vancomycin HCl (Vancomycin Inj) 1,000 mg STK-MED ONCE .ROUTE ; Start 03/08/17 at 14:42; Stop 03/08/17 at 14:43; Status DC Sodium Chloride (Sodium Chloride 0.9% Inj) 20 ml STK-MED ONCE .ROUTE ; Start at 14:42; Stop 03/08/17 at 14:43; Status DC Fentanyl Citrate (fentaNYL INJ) 500 mcg STK-MED ONCE .ROUTE ; Start 03/08/17 at 15:51; Stop 03/08/17 at 15:52; Status DC Miscellaneous Information ALL NURSING DEPARTME... UNSCH PRN .XX SEE LABEL COMMENTS; Start 03/08/17 at 15:40; Stop 03/09/17 at 15:39; Status DC Polyethylene Glycol/ Electrolytes (Colyte Liq) 4,000 ml ONCE ONCE NG Last administered on 03/08/17 22:42; Start 03/08/17 at 20:00; Stop 03/08/17 at 20:01 ; Status DC Lisinopril (Prinivil) 2.5 mg DAILY PO Last administered on 04/09/17 08:47; Start 03/09/17 at 09:00 Miscellaneous (Pill Splitter) 1 ea UNSCH PRN OTHER SEE LABEL COMMENTS; Start at 21:15 Dextrose 1,000 ml @ 84 mls/hr [id number] IV Last administered on 03/11/17 21:24 ; Start 03/09/17 at 23:45; Stop 03/11/17 at 23:38; Status DC Enoxaparin Sodium (Lovenox Inj) 40 mg Q24H SQ Last administered on 04/10/17 12 :26; Start 03/10/17 at 13:00; Status Future hold Bupivacaine HCl (Marcaine Pf 0.5% Inj) 30 ml STK-MED ONCE .ROUTE ; Start at 14:50; Stop 03/10/17 at 14:51; Status DC Lidocaine HCl (Xylocaine 2% Inj) 50 ml STK-MED ONCE .ROUTE ; Start 03/10/17 at 14:51; Stop 03/10/17 at 14:52; Status DC Bacitracin (Baciguent Oint) 15 applic STK-MED ONCE .ROUTE Last administered on 03/10/17 16:43; Start 03/10/17 at 14:51; Stop 03/10/17 at 14:52; Status DC Vancomycin HCl (Vancomycin Inj) 1,000 mg STK-MED ONCE .ROUTE Last administered on 03/10/17 15:49; Start 03/10/17 at 15:45; Stop 03/10/17 at 15:46; Status DC Sodium Chloride (Sodium Chloride 0.9% Inj) 20 ml STK-MED ONCE .ROUTE ; Start at 15:45; Stop 03/10/17 at 15:46; Status DC Neomycin/Polymyxin (Neosporin G.u. Irr) 2 ml STK-MED ONCE TOPICAL Last administered on 03/10/17 15:49; Start 03/10/17 at 15:49; Stop 03/10/17 at 15:59 ; Status DC Bacitracin (Baciguent Oint) 30 applic STK-MED ONCE .ROUTE Last administered on 03/10/17 16:44; Start 03/10/17 at 16:41; Stop 03/10/17 at 16:42; Status DC Hydromorphone HCl (Dilaudid Pf Inj) 2 mg STK-MED ONCE .ROUTE ; Start 03/10/17 at 16:47; Stop 03/10/17 at 16:48; Status DC Fentanyl Citrate (fentaNYL INJ) 250 mcg STK-MED ONCE .ROUTE ; Start 03/10/17 at 17:22; Stop 03/10/17 at 17:23; Status DC Morphine Sulfate (*morphine INJ PERIprocedure ONLY) 8 mg STK-MED ONCE .ROUTE Last administered on 03/10/17 18:12; Start 03/10/17 at 18:12; Stop 03/10/17 at 18:13; Status DC Miscellaneous Information ALL NURSING DEPARTME... UNSCH PRN .XX SEE LABEL COMMENTS; Start 03/10/17 at 14:30; Stop 03/11/17 at 14:29; Status DC Propofol (Diprivan 200 Mg/20 ml Inj) 200 mg STK-MED ONCE IV PUSH ; Start at 15:29; Stop 03/11/17 at 15:47; Status DC Oxybenzone/ Padimate O/ Dimethicone (Blistex Lip [place]) 4.25 applic STK-MED ONCE TOPICAL Last administered on 03/11/17 16:02; Start 03/11/17 at 16:02; Stop at 16:03; Status DC Miscellaneous Information ALL NURSING DEPARTME... UNSCH PRN .XX SEE LABEL COMMENTS; Start 03/11/17 at 16:00; Stop 03/12/17 at 15:59; Status DC Succinylcholine Chloride (Quelicin Inj) 200 mg STK-MED ONCE IV PUSH ; Start at 15:27; Stop 03/12/17 at 08:59; Status DC Sodium Chloride 250 ml @ 15 mls/hr ONCE ONCE IV Last administered on 10:15; Start 03/12/17 at 10:15; Stop 03/13/17 at 02:54; Status DC Acetaminophen (Tylenol) 650 mg Q4H PRN PO SEE LABEL COMMENTS; Start 03/12/17 at 10:15; Stop 03/12/17 at 14:16; Status DC Diphenhydramine HCl (Benadryl) 25 mg Q4H PRN PO SEE LABEL COMMENTS; Start 03/12 at 10:15; Stop 03/12/17 at 14:16; Status DC Potassium Chloride 100 ml @ 50 mls/hr Q2H IV Last administered on 03/12/17 13 :25; Start 03/12/17 at 11:00; Stop 03/12/17 at 14:59; Status DC Lidocaine HCl (Xylocaine 2% Inj) 50 ml STK-MED ONCE .ROUTE ; Start 03/12/17 at 13:04; Stop 03/12/17 at 13:05; Status DC Mupirocin (Bactroban 2% Oint) 22 applic STK-MED ONCE .ROUTE ; Start 03/12/17 at 13:06; Stop 03/12/17 at 13:07; Status DC Hydromorphone HCl (Dilaudid Pf Inj) 2 mg STK-MED ONCE .ROUTE ; Start 03/12/17 at 15:18; Stop 03/12/17 at 15:19; Status DC Acetaminophen (Ofirmev Inj) 1,000 mg STK-MED ONCE IV ; Start 03/12/17 at 15:18; Stop 03/12/17 at 15:19; Status DC Vancomycin HCl (Vancomycin Inj) 1,000 mg STK-MED ONCE .ROUTE Last administered on 03/12/17 15:54; Start 03/12/17 at 15:57; Stop 03/12/17 at 15:58; Status DC Neomycin/Polymyxin (Neosporin G.u. Irr) 2 ml STK-MED ONCE TOPICAL Last administered on 03/12/17 15:54; Start 03/12/17 at 15:54; Stop 03/12/17 at 16:15 ; Status DC Fentanyl Citrate (fentaNYL INJ) 250 mcg STK-MED ONCE .ROUTE ; Start 03/12/17 at 17:04; Stop 03/12/17 at 17:05; Status DC Miscellaneous Information ALL NURSING DEPARTME... UNSCH PRN .XX SEE LABEL COMMENTS; Start 03/12/17 at 17:30; Stop 03/13/17 at 17:29; Status DC Morphine Sulfate (*morphine INJ PERIprocedure ONLY) 8 mg STK-MED ONCE .ROUTE Last administered on 03/12/17 17:33; Start 03/12/17 at 17:33; Stop 03/12/17 at 17:34; Status DC Lidocaine HCl (Xylocaine 1% Inj) 10 ml ONCE@0700 ONCE OTHER ; Start 03/13/17 at 07:00; Stop 03/13/17 at 07:01; Status DC Potassium Chloride/Sodium Chloride 1,000 ml @ 75 mls/hr [id number] IV Last administered on 04/07/17 10:54; Start 03/13/17 at 11:30; Stop 04/07/17 at 13:42 ; Status DC Polyethylene Glycol/ Electrolytes (Colyte Liq) 4,000 ml ONCE ONCE PEG Last administered on 03/14/17 17:13; Start 03/14/17 at 16:00; Stop 03/14/17 at 16:01 ; Status DC Sodium Chloride 250 ml @ 15 mls/hr ONCE ONCE IV Last administered on 21:30; Start 03/13/17 at 20:00; Stop 03/14/17 at 12:39; Status DC Polyethylene Glycol/ Electrolytes (Colyte Liq) 4,000 ml ONCE ONCE PO Last administered on 03/15/17 17:19; Start 03/15/17 at 16:45; Stop 03/15/17 at 16:48 ; Status DC Propofol (Diprivan 200 Mg/20 ml Inj) 180 mg ONCE ONCE IV Last administered on 03/15/17 16:45; Start 03/15/17 at 16:43; Stop 03/15/17 at 16:45; Status DC Sodium Biphosphate/ Sodium Phosphate (Fleets Enema (Adult)) 133 ml ONCE ONCE RECTAL Last administered on 03/16/17 14:45; Start 03/16/17 at 14:15; Stop at 14:21; Status DC Sodium Biphosphate/ Sodium Phosphate (Fleets Enema (Adult)) 133 ml ONCE ONCE RECTAL Last administered on 03/17/17 09:49; Start 03/17/17 at 08:00; Stop at 08:01; Status DC Propofol (Diprivan 200 Mg/20 ml Inj) 100 mg ONCE ONCE IV PUSH ; Start at 15:00; Stop 03/16/17 at 15:01; Status DC Midazolam HCl (Versed Inj) 2 mg STK-MED ONCE .ROUTE ; Start 03/16/17 at 15:34; Stop 03/16/17 at 15:35; Status DC Vancomycin HCl (Vancomycin Inj) 1,000 mg STK-MED ONCE .ROUTE Last administered on 03/18/17 18:58; Start 03/18/17 at 18:15; Stop 03/18/17 at 18:16; Status DC Fentanyl Citrate (fentaNYL INJ) 200 mcg STK-MED ONCE .ROUTE ; Start 03/18/17 at 19:50; Stop 03/18/17 at 19:51; Status DC Methocarbamol (Robaxin) 500 mg Q8HR PO Last administered on 04/10/17 12:33; Start 03/19/17 at 14:00 Acetaminophen 100 ml @ As Directed STK-MED ONCE IV ; Start 03/24/17 at 09:21; Stop 03/24/17 at 09:22; Status DC Midazolam HCl (Versed Inj) 2 mg STK-MED ONCE .ROUTE ; Start 03/24/17 at 09:21; Stop 03/24/17 at 09:22; Status DC Fentanyl Citrate (fentaNYL INJ) 100 mcg STK-MED ONCE .ROUTE ; Start 03/24/17 at 09:21; Stop 03/24/17 at 09:22; Status DC Fentanyl Citrate (fentaNYL INJ) 100 mcg STK-MED ONCE .ROUTE ; Start 03/24/17 at 09:21; Stop 03/24/17 at 09:22; Status DC Hydromorphone HCl (*DILAUDID PF INJ PERIprocedural ONLY) 1 mg STK-MED ONCE .ROUTE Last administered on 03/24/17 14:53; Start 03/24/17 at 14:53; Stop at 14:54; Status DC Meperidine HCl (*DEMEROL INJ PERIprocedural ONLY) 25 mg STK-MED ONCE .ROUTE Last administered on 03/24/17 15:01; Start 03/24/17 at 15:01; Stop 03/24/17 at 15:02; Status DC Fentanyl Citrate (fentaNYL INJ) 400 mcg STK-MED ONCE .ROUTE ; Start 03/24/17 at 15:01; Stop 03/24/17 at 15:02; Status DC Miscellaneous Information ALL NURSING DEPARTME... UNSCH PRN .XX SEE LABEL COMMENTS; Start 03/24/17 at 14:52; Stop 03/25/17 at 14:51; Status DC Polyethylene Glycol (Miralax) 17 gm DAILY PO ; Start 03/24/17 at 16:30; Status Cancel Acetaminophen (Tylenol) 650 mg Q4H PRN PO fever Last administered on 03/25/17 10:02; Start 03/25/17 at 10:00 Piperacillin Sod/ Tazobactam Sod 100 ml @ 200 mls/hr Q8H IV Last administered on 03/29/17 12:36; Start 03/25/17 at 20:00; Stop 03/29/17 at 14:34; Status DC Furosemide (Lasix Inj) 10 mg ONCE ONCE IV PUSH Last administered on 03/26/17 13:47; Start 03/26/17 at 13:30; Stop 03/26/17 at 13:34; Status DC Furosemide (Lasix Inj) 10 mg UNSCH X1 IV PUSH Last administered on 03/27/17 01 :31; Start 03/26/17 at 17:15; Stop 03/26/17 at 23:59; Status DC Levothyroxine Sodium (Synthroid) 50 mcg DAILY@0600 PO Last administered on 04/10 06:16; Start 03/30/17 at 06:00 Levothyroxine Sodium (Synthroid) 50 mcg ONCE ONCE PO Last administered on 12:55; Start 03/29/17 at 12:00; Stop 03/29/17 at 12:02; Status DC Levofloxacin (Levaquin) 500 mg DAILY PO Last administered on 04/07/17t 08:46; Start 03/29/17 at 14:45; Stop 04/07/17 at 14:44; Status DC Propofol (Diprivan 200 Mg/20 ml Inj) 200 mg STK-MED ONCE IV ; Start 02/26/17 at 12:00; Stop 03/30/17 at 13:17; Status DC Neostigmine Methylsulfate (Prostigmin Inj) 3 mg STK-MED ONCE IV ; Start 02/26/17 at 12:00; Stop 03/30/17 at 13:17; Status DC Phenylephrine HCl (Neosynephrine/ NS 1000 Mcg/10ml Syr) 1,000 mcg STK-MED ONCE IV ; Start 02/26/17 at 12:00; Stop 03/30/17 at 13:17; Status DC Lactated Ringer's 2,000 ml @ As Directed STK-MED ONCE IV ; Start 02/26/17 at 12: 00; Stop 03/30/17 at 13:17; Status DC Propofol (Diprivan 200 Mg/20 ml Inj) 200 mg STK-MED ONCE IV ; Start 02/28/17 at 12:00; Stop 03/30/17 at 13:46; Status DC Neostigmine Methylsulfate (Prostigmin Inj) 3 mg STK-MED ONCE IV ; Start 02/28/17 at 12:00; Stop 03/30/17 at 13:46; Status DC Lactated Ringer's 2,000 ml @ As Directed STK-MED ONCE IV ; Start 02/28/17 at 12: 00; Stop 03/30/17 at 13:46; Status DC Propofol (Diprivan 200 Mg/20 ml Inj) 400 mg STK-MED ONCE IV ; Start 03/04/17 at 12:00; Stop 03/30/17 at 14:07; Status DC Ephedrine Sulfate (ePHEDrine/NS 25 MG/5 ML SYR) 25 mg STK-MED ONCE IV ; Start at 12:00; Stop 03/30/17 at 14:07; Status DC Phenylephrine HCl (Neosynephrine/ NS 1000 Mcg/10ml Syr) 2,000 mcg STK-MED ONCE IV ; Start 03/04/17 at 12:00; Stop 03/30/17 at 14:08; Status DC Ondansetron HCl (Zofran Inj) 4 mg STK-MED ONCE IV PUSH ; Start 03/04/17 at 12:00 ; Stop 03/30/17 at 14:08; Status DC Propofol (Diprivan 200 Mg/20 ml Inj) 200 mg STK-MED ONCE IV ; Start 03/08/17 at 12:00; Stop 03/30/17 at 14:49; Status DC Ephedrine Sulfate (ePHEDrine/NS 25 MG/5 ML SYR) 50 mg STK-MED ONCE IV ; Start at 12:00; Stop 03/30/17 at 14:49; Status DC Neostigmine Methylsulfate (Prostigmin Inj) 4 mg STK-MED ONCE IV ; Start at 12:00; Stop 03/30/17 at 14:49; Status DC Phenylephrine HCl (Neosynephrine/ NS 1000 Mcg/10ml Syr) 1,000 mcg STK-MED ONCE IV ; Start 03/08/17 at 12:00; Stop 03/30/17 at 14:49; Status DC Ondansetron HCl (Zofran Inj) 4 mg STK-MED ONCE IV PUSH ; Start 03/08/17 at 12:00 ; Stop 03/30/17 at 14:49; Status DC Lactated Ringer's 1,000 ml @ As Directed STK-MED ONCE IV ; Start 03/08/17 at 12 :00; Stop 03/30/17 at 14:49; Status DC Propofol (Diprivan 200 Mg/20 ml Inj) 200 mg STK-MED ONCE IV ; Start 03/10/17 at 12:00; Stop 03/30/17 at 15:08; Status DC Ephedrine Sulfate (ePHEDrine/NS 25 MG/5 ML SYR) 25 mg STK-MED ONCE IV ; Start at 12:00; Stop 03/30/17 at 15:08; Status DC Neostigmine Methylsulfate (Prostigmin Inj) 3 mg STK-MED ONCE IV ; Start at 12:00; Stop 03/30/17 at 15:08; Status DC Phenylephrine HCl (Neosynephrine/ NS 1000 Mcg/10ml Syr) 2,000 mcg STK-MED ONCE IV ; Start 03/10/17 at 12:00; Stop 03/30/17 at 15:08; Status DC Ondansetron HCl (Zofran Inj) 4 mg STK-MED ONCE IV PUSH ; Start 03/10/17 at 12:00 ; Stop 03/30/17 at 15:08; Status DC Lactated Ringer's 1,000 ml @ As Directed STK-MED ONCE IV ; Start 03/10/17 at 12 :00; Stop 03/30/17 at 15:08; Status DC Sodium Chloride 1,000 ml @ As Directed STK-MED ONCE IV ; Start 03/10/17 at 12: 00; Stop 03/30/17 at 15:08; Status DC Propofol (Diprivan 200 Mg/20 ml Inj) 200 mg STK-MED ONCE IV ; Start 03/12/17 at 12:00; Stop 03/30/17 at 15:20; Status DC Ephedrine Sulfate (ePHEDrine/NS 25 MG/5 ML SYR) 25 mg STK-MED ONCE IV ; Start at 12:00; Stop 03/30/17 at 15:20; Status DC Phenylephrine HCl (Neosynephrine/ NS 1000 Mcg/10ml Syr) 1,000 mcg STK-MED ONCE IV ; Start 03/12/17 at 12:00; Stop 03/30/17 at 15:20; Status DC Ondansetron HCl (Zofran Inj) 4 mg STK-MED ONCE IV PUSH ; Start 03/12/17 at 12:00 ; Stop 03/30/17 at 15:20; Status DC Lactated Ringer's 1,000 ml @ As Directed STK-MED ONCE IV ; Start 03/12/17 at 12 :00; Stop 03/30/17 at 15:20; Status DC Propofol (Diprivan 200 Mg/20 ml Inj) 200 mg STK-MED ONCE IV ; Start 03/18/17 at 12:00; Stop 03/30/17 at 15:38; Status DC Ondansetron HCl (Zofran Inj) 4 mg STK-MED ONCE IV PUSH ; Start 03/18/17 at 12:00 ; Stop 03/30/17 at 15:38; Status DC Neostigmine Methylsulfate (Prostigmin Inj) 3 mg STK-MED ONCE IV ; Start at 12:00; Stop 03/30/17 at 15:38; Status DC Phenylephrine HCl (Neosynephrine/ NS 1000 Mcg/10ml Syr) 1,000 mcg STK-MED ONCE IV ; Start 03/18/17 at 12:00; Stop 03/30/17 at 15:38; Status DC Oxycodone/ Acetaminophen (Percocet 5-325 Mg) 1 tab Q4H PRN PO pain 3 to 5; Start 04/02/17 at 13:00; Stop 04/09/17 at 17:08; Status DC Oxycodone/ Acetaminophen (Percocet 10-325 Mg) 1 tab Q4H PRN PO pain 6-10 Last administered on 04/09/17 14:14; Start 04/02/17 at 13:00; Stop 04/09/17 at 17:08 ; Status DC Magnesium Sulfate/ Dextrose 100 ml @ 100 mls/hr Q1H IV Last administered on 16:15; Start 04/03/17 at 14:00; Stop 04/03/17 at 15:59; Status DC Sodium Chloride (Sodium Chloride) 1 gm TID PO Last administered on 04/07/17 13 :24; Start 04/04/17 at 14:00; Stop 04/07/17 at 13:45; Status DC Calcium Chloride 2 gm/Sodium Chloride 120 ml @ 120 mls/hr ONCE ONCE IV Last administered on 04/04/17 15:45; Start 04/04/17 at 14:00; Stop 04/04/17 at 14:59 ; Status DC Hydromorphone HCl (Dilaudid Pf Inj) 0.2 mg Q6H PRN IV PUSH breakthrough pain Last administered on 04/10/17 02:39; Start 04/09/17 at 17:15 Acetaminophen/ Hydrocodone Bitart ([place] 7.5-325 Mg) 1 tab Q4H PRN PO pain 3- 5 Last administered on 04/10/17 12:30; Start 04/09/17 at 17:15 Acetaminophen/ Hydrocodone Bitart ([place] 5-325 Mg) 1 tab Q4H PRN PO pain 6-10 ; Start 04/09/17 at 17:15 Tolvaptan (Samsca) 15 mg ONCE ONCE PO Last administered on 9/15/17at 22:49; Start 04/09/17 at 19:30; Stop 04/09/17 at 19:32; Status DC Carvedilol (Coreg) 6.25 mg Q12HR PO ; Start 04/10/17 at 09:00 A/P Assessment and Plan Hyponatremia- patient recived Tolvaptan- BMP today pending- nephrology following. 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 distant showering of emboli to other joints. MRSA bacteremia Right ankle hardware infection, s/p partial removal of hardware. Deeper hardware embedded. SP RIGHT BKA Bilateral UE hand abscess and tenosynovitis, septic arthritis s.p multiple debridements. Antibiotic per ID Plan for long-term IV antibiotics, rifampin for 6 weeks Likely will need intermediate facility placement Continue oxycodone and Dilaudid for pain Hand surgeon following ID following ortho surgery following. Multiple surgeries thus far: - podiatry Dr. Reyes/Dr. Gamez on 02/26, 02/28, 03/04 - hand surgeon Dr. Bullock on 02/26, 02/28, 03/04, 03/08, 03/10 -right BKA Anemia Follow CBC Status post blood transfusion Acute Toxic/Metabolic Encephalopathy secondary to Sepsis-improved. Acute Alcohol Withdrawal - improved Hypertension Continue clonidine and Coreg, cardiology initiate low dose lisinopril, monitor renal function will decrease clonidine due to low-normal BP's. Follow blood pressures Adjust as needed for control Mild Systolic CHF Scrotal edema EF of 40-45% with global hypokinesis found on 02/28/17 Continue beta amarjit Following BMP HYPOTHYROIDISM START SYNTHROID 50MCG DAILY THADDEUS mostly vanco induced Monitor renal function Avoid nephrotoxins Previous event was likely secondary to ATN Nephrology following Urinary retention Monitor urine output Hepatitis C- f/u as outpatient. Standard precautions Dysphagia: Improved patient on regular diet Dietitian to assess tapering tube feed DVT Prophylaxis Flaca Funez MD Apr 10, 2017 12:50
[2017-04-10 12:56] LABS: ALKALINE PHOSPHATASE 118 U/L (45-117); ALT (GPT) 23 U/L (12-78); ANION GAP 8 MEQ/L (5-15); AST (GOT) 24 U/L (15-37); BICARBONATE 28.1 MEQ/L (21.0-32.0); BLOOD UREA NITROGEN 11 MG/DL (7-18); CHLORIDE 100 MEQ/L (98-107); GLOMERULAR FILTRATION RATE 144 ML/MIN (>89); POTASSIUM 4.2 MEQ/L (3.5-5.1); SODIUM (NA) 136 MEQ/L (136-145); TOTAL BILIRUBIN ADULT 0.2 MG/DL (0.2-1.0)
[2017-04-10 16:04] VITALS: BP 122/68; PULSE 65; RESP 18; TEMP 98.2; O2SAT 99
[2017-04-10 20:00] VITALS: BP 133/65; PULSE 58; RESP 16; TEMP 98.3; O2SAT 98
[2017-04-10] MEDS: cloNIDine HCL 0.2 MG TAB PO SCH (20:52)
[2017-04-10 22:08] LABS: BICARBONATE 27.4 MEQ/L (21.0-32.0); POTASSIUM 3.9 MEQ/L (3.5-5.1)
[2017-04-10] MEDS: PANTOPRAZOLE SODIUM 40 MG VIAL IV PUSH SCH (22:13)
[2017-04-11] VITALS: BP 114/59; PULSE 66; RESP 18; TEMP 97.9; O2SAT 98
[2017-04-11] MEDS: cloNIDine HCL 0.2 MG TAB PO SCH ×3 (03:20→21:07)
[2017-04-11] MEDS: ACETAMINOPHEN/HYDROcodone 325 MG/7.5 MG TAB PO PRN ×5 (03:20→21:08)
[2017-04-11 04:00] VITALS: BP 145/70; PULSE 66; RESP 16; TEMP 98.4; O2SAT 97
[2017-04-11] MEDS: METHOCARBAMOL 500 MG TAB PO SCH ×3 (07:02→21:08)
[2017-04-11] MEDS: LEVOTHYROXINE SODIUM 50 MCG TAB PO SCH (07:02)
[2017-04-11 08:07] VITALS: BP 153/77; PULSE 66; RESP 18; TEMP 98.4; O2SAT 97
[2017-04-11] MEDS: MUPIROCIN 2% OINT 1 APPLIC/GM SYR NASAL SCH ×2 (08:43→21:07)
[2017-04-11] MEDS: CARVEDILOL 6.25 MG TAB PO SCH ×2 (08:44→21:07)
[2017-04-11] MEDS: MULTIVITAMIN TAB PO SCH (08:45)
[2017-04-11] MEDS: LISINOPRIL 5 MG TAB PO SCH (08:45)
[2017-04-11] MEDS: THIAMINE HCL 100 MG TAB PO SCH (08:45)
[2017-04-11 09:36] LABS: BICARBONATE 28.2 MEQ/L (21.0-32.0); POTASSIUM 3.9 MEQ/L (3.5-5.1)
--- NOTE | 2017-04-11 11:14 | HHI.PR ---
Subjective Remarks in no acute distress. complaining of some back pain. no fever. d/w the RN. Objective Vitals Vital Signs Date Time Temp Pulse Resp B/P (MAP) Pulse Ox O2 Delivery O2 Flow Rate FiO2 04/11/17 08:44 18 04/11/17 08:07 98.4 66 18 153/77 (102) 97 04/11/17 04:00 98.4 66 16 145/70 (95) 97 04/11/17 00:00 97.9 66 18 114/59 (77) 98 04/10/17 20:00 98.3 58 16 133/65 (87) 98 04/10/17 20:00 Room Air 04/10/17 16:04 98.2 65 18 122/68 (86) 99 04/10/17 13:04 98 Room Air 04/10/17 12:04 97.8 68 18 130/74 (92) 98 I/O 04/10/17 04/10/17 04/10/17 04/11/17 04/11/17 04/11/17 07:00 15:00 23:00 07:00 15:00 23:00 Intake Total 120 ml 720 ml 560 ml Output Total 4900 ml 3700 ml 3700 ml Balance -4780 ml -2980 ml -3140 ml Intake Oral 120 ml 720 ml 560 ml Output Urine Total 4900 ml 3700 ml 3700 ml # Bowel Movements 1 0 Result Diagram: 04/11/17 0837 Imaging Last Impressions Chest X-Ray 03/29/17 0000 Signed Impressions: Service Date/Time: Wednesday, March 29, 2017 12:17 - CONCLUSION: Stable chest. Isaac Stevenson MD FACR Tumor Localization 03/22/17 0000 Signed Impressions: Service Date/Time: Wednesday, March 22, 2017 13:03 - CONCLUSION: Nondiagnostic examination secondary to patient refusal Harry Lucio MD Abdomen X-Ray 03/08/17 0000 Signed Impressions: Service Date/Time: Wednesday, March 08, 2017 10:30 - CONCLUSION: Nonspecific, negative for obstruction or ileus. Isaac Stevenson MD FACR Lower Extremity CT 03/01/17 0000 Signed Impressions: Service Date/Time: Wednesday, March 01, 2017 11:12 - CONCLUSION: 1. No evidence of organized fluid collections to suggest an abscess. 2. Extensive soft tissue swelling surrounding the ankle and extending to the forefoot especially along the lateral aspect. 3. No erosive or destructive bone changes. 4. Bone defects compatible with previous excision device. Blake Rider MD Ankle X-Ray 02/26/17 0000 Signed Impressions: Service Date/Time: Sunday, February 26, 2017 17:15 - CONCLUSION: I see no retained surgical instruments. Isaac Stevenson MD FACR Upper Extremity Ultrasound 02/25/17 1734 Signed Impressions: Service Date/Time: February 17:54 - CONCLUSION: There is a thin fluid collection within the focal area of soft tissue swelling 2nd digit. Oscar Cassidy MD Hand X-Ray 02/25/17 0000 Signed Impressions: Service Date/Time: February 18:59 - CONCLUSION: No gross bony abnormality. Oscar Cassidy MD Lower Extremity Ultrasound 02/24/17 0000 Signed Impressions: Service Date/Time: Friday, February 24, 2017 13:41 - CONCLUSION: Negative for deep venous thrombosis. Isaac Stevenson MD FACR Head CT 02/24/17 0000 Signed Impressions: Service Date/Time: Friday, February 24, 2017 16:08 - CONCLUSION: 1. No acute intracranial abnormality. 2. Probable large mucocele in the sphenoid sinus. Ty Hankins MD Abdomen/Pelvis CT 02/24/17 0000 Signed Impressions: Service Date/Time: Friday, February 24, 2017 16:16 - CONCLUSION: 1. Marked gaseous distension of large and small bowel most suggestive of ileus. 2. There is no free air. 3. 2.2 cm left adrenal mass. 4. Distended bladder. Isaac Stevenson MD FACR Objective Remarks GENERAL: This is a well-nourished, well-developed patient, in no apparent distress. CARDIOVASCULAR: Regular rate and regular rhythm without murmurs, gallops, or rubs. RESPIRATORY: Clear to auscultation. Breath sounds equal bilaterally. No wheezes , rales, or rhonchi. GASTROINTESTINAL: Abdomen soft, non-tender, nondistended. Normal, active bowel sounds MUSCULOSKELETAL: right forearm covered with clean dressing- s/p right BKA NEURO: Alert & Oriented x4 to person, place, time, situation. Moves all ext x4 Procedures 03/10/2017 - Dr. Bullock exploration, wash, excisional debridement extensor tenosynovium right wrist/forearm/hand 03/08/17 - Dr. Bullock- exploration, wash, excisional debridement skin, subcutaneous tissue, extensor tenosynovitis right wrist and hand. Findings: necrotic tissue, minimal purulence, extensor tenosynovitis right wrist/hand 03/04/17 - Dr Gamez - Right leg and incision and drainage. Right foot delayed primary closure x3 03/04/17 - Dr. Bullock - Extensor tenosynovectomy second, third, fourth extensor compartments right wrist and excisional debridement wash index finger metacarpal phalangeal joint, excisional wash and excisional debridement left hand. 02/28/17 - Dr. Reyes - Right ankle wound debridement and washout. Implantation of antibiotic vancomycin beads. 02/28/17 - Dr. Bullock - Exploration, wash, excisional debridement index finger metacarpophalangeal joint right hand; Exploration, wash, excisional debridement metacarpophalangeal joint left index finger; Exploration, wash, excisional debridement extensor pollicis longus tendon right thumb and hand. 02/26/17 - Dr. Reyes - Right ankle incision and drainage, arthrotomy, removal infected hardware, bone biopsy. 02/26/17 - Dr. Bullock - Exploration, incision and drainage right hand abscess, Arthrotomy wash metacarpal phalangeal joint right index finger, Arthrotomy wash metacarpal phalangeal joint left index finger. Medications and IVs Current Medications Sodium Chloride 1,000 ml @ 999 mls/hr BOLUS ONCE IV Last administered on 13:38; Start 02/24/17 at 13:45; Stop 02/24/17 at 14:45; Status DC IV Flush (NS Flush) 2 ml UNSCH PRN IV FLUSH FLUSH AFTER USING IV ACCESS Last administered on 02/24/17 13:38; Start 02/24/17 at 13:45 Vancomycin HCl 1000 mg/Sodium Chloride 250 ml @ 250 mls/hr ONCE STAT IV Last administered on 02/24/17 15:49; Start 02/24/17 at 15:35; Stop 02/24/17 at 16:34; Status DC Cefepime HCl 2000 mg/Sodium Chloride 100 ml @ 200 mls/hr ONCE STAT IV Last administered on 02/24/17 16:36; Start 02/24/17 at 15:35; Stop 02/24/17 at 16:04; Status DC Potassium Bicarb/ Potassium Chloride (K-Lyte Cl Eff) 50 meq ONCE ONCE PO Last administered on 02/24/17 15:56; Start 02/24/17 at 16:00; Stop 02/24/17 at 16: 01; Status DC Iohexol (Omnipaque 350 Inj) 97 ml STK-MED ONCE IV Last administered on 16:29; Start 02/24/17 at 16:29; Stop 02/24/17 at 16:30; Status DC Sodium Chloride 1,000 ml @ 125 mls/hr Q8H IV Last administered on 03/02/17 09: 33; Start 02/24/17 at 18:00; Stop 03/02/17 at 13:08; Status DC Ondansetron HCl (Zofran Inj) 4 mg Q8HR PRN IV PUSH NAUSEA; Start 02/24/17 at 18: 00 Thiamine HCl (Vitamin B1) 100 mg ONCE ONCE PO Last administered on 02/24/17 20 :20; Start 02/24/17 at 20:15; Stop 02/24/17 at 20:16; Status DC Thiamine HCl (Vitamin B1) 100 mg DAILY PO Last administered on 04/11/17 08:45 ; Start 02/25/17 at 09:00 Potassium Chloride 100 ml @ 50 mls/hr Q2H IV Last administered on 02/24/17 22: 59; Start 02/24/17 at 20:30; Stop 02/25/17 at 00:29; Status DC Pharmacy Profile Note 0 ml @ 0 mls/hr UNSCH OTHER ; Start 02/24/17 at 20:15; Stop 03/02/17 at 13:23; Status DC Cefepime HCl 2000 mg/Sodium Chloride 100 ml @ 200 mls/hr Q12H IV Last administered on 02/27/17 05:51; Start 02/25/17 at 07:00; Stop 02/27/17 at 14:53; Status DC Vancomycin HCl 1500 mg/Sodium Chloride 515 ml @ 257.5 mls/ hr Q18H IV Last administered on 02/25/17 10:30; Start 02/25/17 at 10:00; Stop 02/25/17 at 11:30; Status DC Miscellaneous Information SPECIFIC LAB TO BE DRAWN:VANCO TROUGH DATE TO BE DR... ONCE ONCE .XX ; Start 02/26/17 at 21:45; Stop 02/26/17 at 21:46; Status DC Flumazenil (Romazicon Inj) 0.2 mg Q1M PRN IV PUSH SEE LABEL COMMENTS; Start 02/25/17 at 09:15 Lorazepam (Ativan) 1 mg Q4H PRN PO agitation Last administered on 03/20/17 03: 18; Start 02/25/17 at 09:15 Lorazepam (Ativan Inj) 1 mg Q4H PRN IV PUSH agitation when not taking po Last administered on 03/05/17 02:41; Start 02/25/17 at 09:15 Lorazepam (Ativan) 2 mg Q2H PRN PO CIWA 11-14; Start 02/25/17 at 09:15; Stop 02/28/17 at 07:44; Status DC Lorazepam (Ativan Inj) 2 mg Q2H PRN IV PUSH CIWA 11-14 Last administered on 02/26 18:14; Start 02/25/17 at 09:15; Stop 02/28/17 at 07:44; Status DC Lorazepam (Ativan Inj) 2 mg Q1H PRN IV PUSH CIWA 15-20 Last administered on 02/25 21:37; Start 02/25/17 at 09:15; Stop 02/28/17 at 07:44; Status DC Lorazepam (Ativan Inj) 2 mg Q15M PRN IV PUSH CIWA > 20 Last administered on 02/26 06:25; Start 02/25/17 at 09:15; Stop 02/28/17 at 07:44; Status DC Multivitamins (Theragran) 1 tab DAILY PO Last administered on 04/11/17 08:45; Start 02/26/17 at 09:00 Acetaminophen (Tylenol) 650 mg Q4H PRN PO FEVER Last administered on 03/07/17 04:47; Start 02/25/17 at 09:15; Stop 03/12/17 at 10:47; Status DC Lisinopril (Prinivil) 10 mg DAILY PO ; Start 02/26/17 at 09:00; Stop 03/08/17 at 21:09; Status DC Enoxaparin Sodium (Lovenox Inj) 40 mg Q24H SQ Last administered on 03/07/17 10 :00; Start 02/25/17 at 10:00; Stop 03/10/17 at 12:17; Status DC Vancomycin HCl 1500 mg/Sodium Chloride 515 ml @ 257.5 mls/ hr Q12H IV Last administered on 02/26/17 09:42; Start 02/25/17 at 22:00; Stop 02/26/17 at 12:06; Status DC Miscellaneous Information SPECIFIC LAB TO BE BIA... ONCE ONCE .XX Last administered on 02/26/17 09:45; Start 02/26/17 at 09:45; Stop 02/26/17 at 09:46; Status DC Chlordiazepoxide (Librium) 25 mg Q8H PO ; Start 02/25/17 at 17:00; Stop 02/25/17 at 20:24; Status DC Gentamicin Sulfate 70 mg/ Sodium Chloride 101.75 ml @ 100 mls/ hr ONCE ONCE IV Last administered on 02/25/17 18:51; Start 02/25/17 at 18:30; Stop 02/25/17 at 19:31; Status DC Dexmedetomidine HCl 200 mcg/ Sodium Chloride 52 ml @ 0 mls/hr TITRATE IV Last administered on 02/27/17 13:55; Start 02/25/17 at 17:30; Stop 03/09/17 at 23:34; Status DC Acetaminophen (Ofirmev Inj) 650 mg Q6H PRN IV TEMP >101 Last administered on 20:12; Start 02/25/17 at 21:00 Iohexol (Omnipaque 350 Inj) 75 ml STK-MED ONCE IV Last administered on 21:15; Start 02/25/17 at 21:15; Stop 02/25/17 at 21:16; Status DC Potassium Chloride 100 ml @ 50 mls/hr Q2H PRN IV For Potassium 2.8 - 3.2 mEq/L ; Start 02/25/17 at 22:45; Stop 03/01/17 at 23:53; Status DC Potassium Chloride 100 ml @ 50 mls/hr Q2H PRN IV For Potassium 2.8 - 3.2 mEq/ L Last administered on 02/28/17 12:32; Start 02/25/17 at 22:45; Stop 03/01/17 at 23:53; Status DC Potassium Bicarb/ Potassium Chloride (K-Lyte Cl Eff) 50 meq UNSCH PRN PO For Potassium 3.3 - 3.5 mEq/L; Start 02/25/17 at 22:45; Stop 03/01/17 at 23:53; Status DC Potassium Chloride 100 ml @ 25 mls/hr UNSCH PRN IV For Potassium 3.3 - 3.5 mEq /L; Start 02/25/17 at 22:45; Stop 03/01/17 at 23:53; Status DC Potassium Chloride 100 ml @ 50 mls/hr Q2H PRN IV For Potassium 3.3 - 3.5 mEq/ L Last administered on 02/28/17 06:39; Start 02/25/17 at 22:45; Stop 03/01/17 at 23:53; Status DC Magnesium Sulfate 4 gm/Sodium Chloride 100 ml @ 50 mls/hr UNSCH PRN IV For Magnesium 0.9 - 1.1 mg/dL; Start 02/25/17 at 22:45; Stop 03/01/17 at 23:53; Status DC Magnesium Oxide (Mag-Ox) 800 mg UNSCH PRN PO For Magnesium 1.2 - 1.6 mg/dL; Start 02/25/17 at 22:45; Stop 03/01/17 at 23:53; Status DC Magnesium Sulfate 2 gm/Sodium Chloride 100 ml @ 50 mls/hr UNSCH PRN IV For Magnesium 1.2 - 1.6 mg/dL; Start 02/25/17 at 22:45; Stop 03/01/17 at 23:53; Status DC Potassium Phosphate (K-Phos) 2,000 mg Q4H PRN PO For Phosphorus < 2.5 mg/dL; Start 02/25/17 at 22:45; Stop 03/01/17 at 23:53; Status DC Sodium Phosphate 30 mmol/Sodium Chloride 250 ml @ 42 mls/hr UNSCH PRN IV For Phosphorus < 2.5 mg/dL Last administered on 02/26/17 23:19; Start 02/25/17 at 22: 45; Stop 03/01/17 at 23:53; Status DC Potassium Phosphate (K-Phos) 2,000 mg UNSCH PRN PO/TUBE SEE LABEL COMMENTS; Start 02/25/17 at 22:45; Stop 03/01/17 at 23:53; Status DC Potassium Phosphate 30 mmol/ Sodium Chloride 260 ml @ 42 mls/hr UNSCH PRN IV SEE LABEL COMMENTS; Start 02/25/17 at 22:45; Stop 03/01/17 at 23:53; Status DC Labetalol HCl (Trandate Inj) 10 mg Q6H PRN IV PUSH SBP >165; Start 02/25/17 at 23:15 Pantoprazole Sodium (Protonix Inj) 40 mg Q24H IV PUSH Last administered on 04/10 22:13; Start 02/26/17 at 00:00 Miscellaneous Information Patient in critical care unit? Ass... [id number] .XX ; Start 02/26/17 at 07:15 Mupirocin (Bactroban Nasal 2% Oint) 1 applic BID NASAL Last administered on 08:43; Start 02/26/17 at 09:00 Chlorhexidine Gluconate (Chlorhexidine 2% Cloth) 3 pack DAILY@04 TOPICAL Last administered on 03/03/17 04:00; Start 02/27/17 at 04:00; Stop 03/03/17 at 04:01; Status DC Chlorhexidine Gluconate (Chlorhexidine 2% Cloth) 3 pack UNSCH PRN TOPICAL HYGIENIC CARE; Start 02/26/17 at 07:15; Stop 03/03/17 at 07:07; Status DC Lidocaine HCl (Xylocaine 2% Inj) 50 ml STK-MED ONCE .ROUTE ; Start 02/26/17 at 09 :35; Stop 02/26/17 at 09:36; Status DC Bupivacaine HCl (Marcaine Pf 0.5% Inj) 60 ml STK-MED ONCE .ROUTE ; Start at 09:35; Stop 02/26/17 at 09:36; Status DC Mupirocin (Bactroban 2% Oint) 22 applic STK-MED ONCE .ROUTE ; Start 02/26/17 at 09:35; Stop 02/26/17 at 09:36; Status DC Vancomycin HCl 1250 mg/Sodium Chloride 262.5 ml @ 250 mls/hr Q12H IV Last administered on 03/02/17 09:33; Start 02/26/17 at 22:00; Stop 03/02/17 at 13:23; Status DC Miscellaneous Information SPECIFIC LAB TO BE BIA... ONCE ONCE .XX Last administered on 02/27/17 22:46; Start 02/27/17 at 21:45; Stop 02/27/17 at 21:46; Status DC Neomycin/Polymyxin (Neosporin G.u. Irr) 3 ml STK-MED ONCE TOPICAL Last administered on 02/26/17 13:06; Start 02/26/17 at 13:06; Stop 02/26/17 at 16:26; Status DC Neomycin/Polymyxin (Neosporin G.u. Irr) 4 ml STK-MED ONCE TOPICAL Last administered on 02/26/17 15:47; Start 02/26/17 at 15:47; Stop 02/26/17 at 16:26; Status DC Fentanyl Citrate (fentaNYL INJ) 250 mcg STK-MED ONCE .ROUTE ; Start 02/26/17 at 18:16; Stop 02/26/17 at 18:17; Status DC Fentanyl Citrate (fentaNYL INJ) 100 mcg STK-MED ONCE .ROUTE ; Start 02/26/17 at 18:16; Stop 02/26/17 at 18:17; Status DC Miscellaneous Information ALL NURSING DEPARTME... UNSCH PRN .XX SEE LABEL COMMENTS; Start 02/26/17 at 17:57; Stop 02/27/17 at 17:56; Status DC Clonidine (Catapres) 0.3 mg Q8HR PO Last administered on 04/10/17 12:33; Start 02/26/17 at 22:11; Stop 04/10/17 at 12:52; Status DC Diazepam (Valium) 5 mg Taper DAILY PO Last administered on 03/06/17 09:49; Start 02/26/17 at 22:15; Stop 03/06/17 at 22:14; Status DC Water (Free Water) 200 ml Q8HR G-TUBE Last administered on 02/27/17 22:31; Start 02/27/17 at 06:55; Stop 02/28/17 at 07:41; Status DC Rifampin 300 mg/ Sodium Chloride 100 ml @ 100 mls/hr Q12H IV Last administered on 03/02/17 14:41; Start 02/27/17 at 15:00; Stop 03/02/17 at 16:41; Status DC Oxycodone HCl (Roxicodone) 5 mg Q4H PRN PO pain 1-5 Last administered on 09:26; Start 02/28/17 at 07:45; Stop 04/09/17 at 17:08; Status DC Hydromorphone HCl (Dilaudid Pf Inj) 0.5 mg Q3H PRN IV PUSH pain 6-10 or not taking po Last administered on 04/09/17 16:51; Start 02/28/17 at 07:45; Stop at 17:08; Status DC Water (Free Water) 300 ml Q4HR G-TUBE Last administered on 03/02/17 20:00; Start 02/28/17 at 08:00; Stop 03/02/17 at 23:07; Status DC Vancomycin HCl (Vancomycin Inj) 1,000 mg STK-MED ONCE .ROUTE Last administered on 02/28/17 09:01; Start 02/28/17 at 09:01; Stop 02/28/17 at 09:02; Status DC Vancomycin HCl (Vancomycin Inj) 1,000 mg STK-MED ONCE .ROUTE Last administered on 02/28/17 09:33; Start 02/28/17 at 09:33; Stop 02/28/17 at 09:34; Status DC Vancomycin HCl (Vancomycin Inj) 1,000 mg STK-MED ONCE .ROUTE Last administered on 02/28/17 09:36; Start 02/28/17 at 09:33; Stop 02/28/17 at 09:34; Status DC Daptomycin 450 mg/ Sodium Chloride 100 ml @ 200 mls/hr Q24H IV Last administered on 03/05/17 13:41; Start 02/28/17 at 12:00; Stop 03/05/17 at 18:00 ; Status DC Vancomycin HCl (Vancomycin Inj) 1,000 mg STK-MED ONCE .ROUTE Last administered on 8/6/17at 10:45; Start 02/28/17 at 10:42; Stop 02/28/17 at 10:43; Status DC Vancomycin HCl (Vancomycin Inj) 500 mg STK-MED ONCE .ROUTE Last administered on 02/28/17 10:45; Start 02/28/17 at 10:42; Stop 02/28/17 at 10:43; Status DC Fentanyl Citrate (fentaNYL INJ) 250 mcg STK-MED ONCE .ROUTE ; Start 02/28/17 at 11:48; Stop 02/28/17 at 11:49; Status DC Miscellaneous Information ALL NURSING DEPARTME... UNSCH PRN .XX SEE LABEL COMMENTS; Start 02/28/17 at 11:33; Stop 03/01/17 at 11:32; Status DC Miscellaneous Information SPECIFIC LAB TO BE BIA... ONCE ONCE .XX ; Start 03/04 at 09:45; Stop 03/04/17 at 09:46; Status Cancel Sodium Chloride 1,000 ml @ 999 mls/hr BOLUS ONCE IV Last administered on 13:28; Start 03/02/17 at 13:15; Stop 03/02/17 at 14:15; Status DC Sodium Chloride 1,000 ml @ 125 mls/hr Q8H IV Last administered on 03/02/17 14: 18; Start 03/02/17 at 13:15; Stop 03/02/17 at 14:30; Status DC Rifampin (Rifampin) 300 mg Q12HR PO Last administered on 03/23/17 08:42; Start 03/02/17 at 21:00; Stop 03/23/17 at 18:40; Status DC Potassium Chloride 20 meq/ Sodium Chloride 38.5 meq/Sterile Water 1,010 ml @ 55 mls/hr [id number] IV Last administered on 03/09/17 22:51; Start 03/03/17 at 11: 00; Stop 03/09/17 at 23:36; Status DC Furosemide (Lasix Inj) 20 mg ONCE ONCE IV PUSH Last administered on 03/03/17 10:19; Start 03/03/17 at 09:30; Stop 03/03/17 at 09:43; Status DC Carvedilol (Coreg) 6.25 mg Q12HR PO Last administered on 04/09/17 08:40; Start 03/03/17 at 21:00; Stop 04/10/17 at 03:26; Status DC Vancomycin HCl (Vancomycin Inj) 1,000 mg STK-MED ONCE .ROUTE Last administered on 03/04/17 15:52; Start 03/04/17 at 15:10; Stop 03/04/17 at 15:11; Status DC Fentanyl Citrate (fentaNYL INJ) 100 mcg STK-MED ONCE .ROUTE ; Start 03/04/17 at 16:38; Stop 03/04/17 at 16:39; Status DC Fentanyl Citrate (fentaNYL INJ) 250 mcg STK-MED ONCE .ROUTE ; Start 03/04/17 at 16:38; Stop 03/04/17 at 16:39; Status DC Vancomycin HCl (Vancomycin Inj) 1,000 mg STK-MED ONCE .ROUTE Last administered on 03/04/17 16:52; Start 03/04/17 at 16:59; Stop 03/04/17 at 17:00; Status DC Fentanyl Citrate (fentaNYL INJ) 100 mcg STK-MED ONCE .ROUTE ; Start 03/04/17 at 18:24; Stop 03/04/17 at 18:25; Status DC Fentanyl Citrate (fentaNYL INJ) 250 mcg STK-MED ONCE .ROUTE ; Start 03/04/17 at 18:25; Stop 03/04/17 at 18:26; Status DC Miscellaneous Information ALL NURSING DEPARTME... UNSCH PRN .XX SEE LABEL COMMENTS; Start 03/04/17 at 19:15; Stop 03/05/17 at 19:14; Status DC Daptomycin 550 mg/ Sodium Chloride 100 ml @ 200 mls/hr Q24H IV Last administered on 04/10/17 12:26; Start 03/06/17 at 12:00 Bisacodyl (Dulcolax Supp) 10 mg DAILY PRN RECTAL SEVERE CONSITIPATION; Start at 21:00 Lactulose (Lactulose Liq) 30 ml DAILY PRN NG SEVERE CONSITIPATION Last administered on 03/07/17 18:45; Start 03/06/17 at 21:00 Docusate Sodium (Colace Liq) 100 mg Q12HR PO Last administered on 03/09/17 09: 30; Start 03/06/17 at 21:15; Status Future Hold Sodium Chloride 250 ml @ 15 mls/hr ONCE ONCE IV Last administered on 00:27; Start 03/07/17 at 19:00; Stop 03/08/17 at 12:06; Status DC Furosemide (Lasix Inj) 20 mg ONCE ONCE IV Last administered on 03/08/17 03:49 ; Start 03/07/17 at 19:00; Stop 03/07/17 at 19:01; Status DC Polyethylene Glycol/ Electrolytes (Colyte Liq) 4,000 ml ONCE ONCE PO ; Start at 11:00; Stop 03/08/17 at 11:01; Status Cancel Mupirocin (Bactroban 2% Oint) 22 applic STK-MED ONCE .ROUTE ; Start 03/08/17 at 12:10; Stop 03/08/17 at 12:11; Status DC Lidocaine HCl (Xylocaine 2% Inj) 50 ml STK-MED ONCE .ROUTE ; Start 03/08/17 at 12:13; Stop 03/08/17 at 12:14; Status DC Bupivacaine HCl (Marcaine Pf 0.5% Inj) 30 ml STK-MED ONCE .ROUTE ; Start at 12:17; Stop 03/08/17 at 12:18; Status DC Famotidine (Pepcid Inj) 20 mg STK-MED ONCE .ROUTE ; Start 03/08/17 at 13:17; Stop 03/08/17 at 13:18; Status DC Vancomycin HCl (Vancomycin Inj) 1,000 mg STK-MED ONCE .ROUTE Last administered on 03/08/17 14:35; Start 03/08/17 at 14:07; Stop 03/08/17 at 14:08; Status DC Sodium Chloride (Sodium Chloride 0.9% Inj) 20 ml STK-MED ONCE .ROUTE ; Start at 14:07; Stop 03/08/17 at 14:08; Status DC Vancomycin HCl (Vancomycin Inj) 1,000 mg STK-MED ONCE .ROUTE ; Start 03/08/17 at 14:42; Stop 03/08/17 at 14:43; Status DC Sodium Chloride (Sodium Chloride 0.9% Inj) 20 ml STK-MED ONCE .ROUTE ; Start at 14:42; Stop 03/08/17 at 14:43; Status DC Fentanyl Citrate (fentaNYL INJ) 500 mcg STK-MED ONCE .ROUTE ; Start 03/08/17 at 15:51; Stop 03/08/17 at 15:52; Status DC Miscellaneous Information ALL NURSING DEPARTME... UNSCH PRN .XX SEE LABEL COMMENTS; Start 03/08/17 at 15:40; Stop 03/09/17 at 15:39; Status DC Polyethylene Glycol/ Electrolytes (Colyte Liq) 4,000 ml ONCE ONCE NG Last administered on 03/08/17 22:42; Start 03/08/17 at 20:00; Stop 03/08/17 at 20:01 ; Status DC Lisinopril (Prinivil) 2.5 mg DAILY PO Last administered on 04/11/17 08:45; Start 03/09/17 at 09:00 Miscellaneous (Pill Splitter) 1 ea UNSCH PRN OTHER SEE LABEL COMMENTS; Start at 21:15 Dextrose 1,000 ml @ 84 mls/hr [id number] IV Last administered on 03/11/17 21:24 ; Start 03/09/17 at 23:45; Stop 03/11/17 at 23:38; Status DC Enoxaparin Sodium (Lovenox Inj) 40 mg Q24H SQ Last administered on 04/10/17 12 :26; Start 03/10/17 at 13:00; Status Future hold Bupivacaine HCl (Marcaine Pf 0.5% Inj) 30 ml STK-MED ONCE .ROUTE ; Start at 14:50; Stop 03/10/17 at 14:51; Status DC Lidocaine HCl (Xylocaine 2% Inj) 50 ml STK-MED ONCE .ROUTE ; Start 03/10/17 at 14:51; Stop 03/10/17 at 14:52; Status DC Bacitracin (Baciguent Oint) 15 applic STK-MED ONCE .ROUTE Last administered on 03/10/17 16:43; Start 03/10/17 at 14:51; Stop 03/10/17 at 14:52; Status DC Vancomycin HCl (Vancomycin Inj) 1,000 mg STK-MED ONCE .ROUTE Last administered on 03/10/17 15:49; Start 03/10/17 at 15:45; Stop 03/10/17 at 15:46; Status DC Sodium Chloride (Sodium Chloride 0.9% Inj) 20 ml STK-MED ONCE .ROUTE ; Start at 15:45; Stop 03/10/17 at 15:46; Status DC Neomycin/Polymyxin (Neosporin G.u. Irr) 2 ml STK-MED ONCE TOPICAL Last administered on 03/10/17 15:49; Start 03/10/17 at 15:49; Stop 03/10/17 at 15:59 ; Status DC Bacitracin (Baciguent Oint) 30 applic STK-MED ONCE .ROUTE Last administered on 03/10/17 16:44; Start 03/10/17 at 16:41; Stop 03/10/17 at 16:42; Status DC Hydromorphone HCl (Dilaudid Pf Inj) 2 mg STK-MED ONCE .ROUTE ; Start 03/10/17 at 16:47; Stop 03/10/17 at 16:48; Status DC Fentanyl Citrate (fentaNYL INJ) 250 mcg STK-MED ONCE .ROUTE ; Start 03/10/17 at 17:22; Stop 03/10/17 at 17:23; Status DC Morphine Sulfate (*morphine INJ PERIprocedure ONLY) 8 mg STK-MED ONCE .ROUTE Last administered on 03/10/17 18:12; Start 03/10/17 at 18:12; Stop 03/10/17 at 18:13; Status DC Miscellaneous Information ALL NURSING DEPARTME... UNSCH PRN .XX SEE LABEL COMMENTS; Start 03/10/17 at 14:30; Stop 03/11/17 at 14:29; Status DC Propofol (Diprivan 200 Mg/20 ml Inj) 200 mg STK-MED ONCE IV PUSH ; Start at 15:29; Stop 03/11/17 at 15:47; Status DC Oxybenzone/ Padimate O/ Dimethicone (Blistex Lip [place]) 4.25 applic STK-MED ONCE TOPICAL Last administered on 03/11/17 16:02; Start 03/11/17 at 16:02; Stop at 16:03; Status DC Miscellaneous Information ALL NURSING DEPARTME... UNSCH PRN .XX SEE LABEL COMMENTS; Start 03/11/17 at 16:00; Stop 03/12/17 at 15:59; Status DC Succinylcholine Chloride (Quelicin Inj) 200 mg STK-MED ONCE IV PUSH ; Start at 15:27; Stop 03/12/17 at 08:59; Status DC Sodium Chloride 250 ml @ 15 mls/hr ONCE ONCE IV Last administered on 10:15; Start 03/12/17 at 10:15; Stop 03/13/17 at 02:54; Status DC Acetaminophen (Tylenol) 650 mg Q4H PRN PO SEE LABEL COMMENTS; Start 03/12/17 at 10:15; Stop 03/12/17 at 14:16; Status DC Diphenhydramine HCl (Benadryl) 25 mg Q4H PRN PO SEE LABEL COMMENTS; Start 03/12 at 10:15; Stop 03/12/17 at 14:16; Status DC Potassium Chloride 100 ml @ 50 mls/hr Q2H IV Last administered on 03/12/17 13 :25; Start 03/12/17 at 11:00; Stop 03/12/17 at 14:59; Status DC Lidocaine HCl (Xylocaine 2% Inj) 50 ml STK-MED ONCE .ROUTE ; Start 03/12/17 at 13:04; Stop 03/12/17 at 13:05; Status DC Mupirocin (Bactroban 2% Oint) 22 applic STK-MED ONCE .ROUTE ; Start 03/12/17 at 13:06; Stop 03/12/17 at 13:07; Status DC Hydromorphone HCl (Dilaudid Pf Inj) 2 mg STK-MED ONCE .ROUTE ; Start 03/12/17 at 15:18; Stop 03/12/17 at 15:19; Status DC Acetaminophen (Ofirmev Inj) 1,000 mg STK-MED ONCE IV ; Start 03/12/17 at 15:18; Stop 03/12/17 at 15:19; Status DC Vancomycin HCl (Vancomycin Inj) 1,000 mg STK-MED ONCE .ROUTE Last administered on 03/12/17 15:54; Start 03/12/17 at 15:57; Stop 03/12/17 at 15:58; Status DC Neomycin/Polymyxin (Neosporin G.u. Irr) 2 ml STK-MED ONCE TOPICAL Last administered on 03/12/17 15:54; Start 03/12/17 at 15:54; Stop 03/12/17 at 16:15 ; Status DC Fentanyl Citrate (fentaNYL INJ) 250 mcg STK-MED ONCE .ROUTE ; Start 03/12/17 at 17:04; Stop 03/12/17 at 17:05; Status DC Miscellaneous Information ALL NURSING DEPARTME... UNSCH PRN .XX SEE LABEL COMMENTS; Start 03/12/17 at 17:30; Stop 03/13/17 at 17:29; Status DC Morphine Sulfate (*morphine INJ PERIprocedure ONLY) 8 mg STK-MED ONCE .ROUTE Last administered on 03/12/17 17:33; Start 03/12/17 at 17:33; Stop 03/12/17 at 17:34; Status DC Lidocaine HCl (Xylocaine 1% Inj) 10 ml ONCE@0700 ONCE OTHER ; Start 03/13/17 at 07:00; Stop 03/13/17 at 07:01; Status DC Potassium Chloride/Sodium Chloride 1,000 ml @ 75 mls/hr [id number] IV Last administered on 04/07/17 10:54; Start 03/13/17 at 11:30; Stop 04/07/17 at 13:42 ; Status DC Polyethylene Glycol/ Electrolytes (Colyte Liq) 4,000 ml ONCE ONCE PEG Last administered on 03/14/17 17:13; Start 03/14/17 at 16:00; Stop 03/14/17 at 16:01 ; Status DC Sodium Chloride 250 ml @ 15 mls/hr ONCE ONCE IV Last administered on 21:30; Start 03/13/17 at 20:00; Stop 03/14/17 at 12:39; Status DC Polyethylene Glycol/ Electrolytes (Colyte Liq) 4,000 ml ONCE ONCE PO Last administered on 03/15/17 17:19; Start 03/15/17 at 16:45; Stop 03/15/17 at 16:48 ; Status DC Propofol (Diprivan 200 Mg/20 ml Inj) 180 mg ONCE ONCE IV Last administered on 03/15/17 16:45; Start 03/15/17 at 16:43; Stop 03/15/17 at 16:45; Status DC Sodium Biphosphate/ Sodium Phosphate (Fleets Enema (Adult)) 133 ml ONCE ONCE RECTAL Last administered on 03/16/17 14:45; Start 03/16/17 at 14:15; Stop at 14:21; Status DC Sodium Biphosphate/ Sodium Phosphate (Fleets Enema (Adult)) 133 ml ONCE ONCE RECTAL Last administered on 03/17/17 09:49; Start 03/17/17 at 08:00; Stop at 08:01; Status DC Propofol (Diprivan 200 Mg/20 ml Inj) 100 mg ONCE ONCE IV PUSH ; Start at 15:00; Stop 03/16/17 at 15:01; Status DC Midazolam HCl (Versed Inj) 2 mg STK-MED ONCE .ROUTE ; Start 03/16/17 at 15:34; Stop 03/16/17 at 15:35; Status DC Vancomycin HCl (Vancomycin Inj) 1,000 mg STK-MED ONCE .ROUTE Last administered on 03/18/17 18:58; Start 03/18/17 at 18:15; Stop 03/18/17 at 18:16; Status DC Fentanyl Citrate (fentaNYL INJ) 200 mcg STK-MED ONCE .ROUTE ; Start 03/18/17 at 19:50; Stop 03/18/17 at 19:51; Status DC Methocarbamol (Robaxin) 500 mg Q8HR PO Last administered on 04/11/17 07:02; Start 03/19/17 at 14:00 Acetaminophen 100 ml @ As Directed STK-MED ONCE IV ; Start 03/24/17 at 09:21; Stop 03/24/17 at 09:22; Status DC Midazolam HCl (Versed Inj) 2 mg STK-MED ONCE .ROUTE ; Start 03/24/17 at 09:21; Stop 03/24/17 at 09:22; Status DC Fentanyl Citrate (fentaNYL INJ) 100 mcg STK-MED ONCE .ROUTE ; Start 03/24/17 at 09:21; Stop 03/24/17 at 09:22; Status DC Fentanyl Citrate (fentaNYL INJ) 100 mcg STK-MED ONCE .ROUTE ; Start 03/24/17 at 09:21; Stop 03/24/17 at 09:22; Status DC Hydromorphone HCl (*DILAUDID PF INJ PERIprocedural ONLY) 1 mg STK-MED ONCE .ROUTE Last administered on 03/24/17 14:53; Start 03/24/17 at 14:53; Stop at 14:54; Status DC Meperidine HCl (*DEMEROL INJ PERIprocedural ONLY) 25 mg STK-MED ONCE .ROUTE Last administered on 03/24/17 15:01; Start 03/24/17 at 15:01; Stop 03/24/17 at 15:02; Status DC Fentanyl Citrate (fentaNYL INJ) 400 mcg STK-MED ONCE .ROUTE ; Start 03/24/17 at 15:01; Stop 03/24/17 at 15:02; Status DC Miscellaneous Information ALL NURSING DEPARTME... UNSCH PRN .XX SEE LABEL COMMENTS; Start 03/24/17 at 14:52; Stop 03/25/17 at 14:51; Status DC Polyethylene Glycol (Miralax) 17 gm DAILY PO ; Start 03/24/17 at 16:30; Status Cancel Acetaminophen (Tylenol) 650 mg Q4H PRN PO fever Last administered on 03/25/17 10:02; Start 03/25/17 at 10:00 Piperacillin Sod/ Tazobactam Sod 100 ml @ 200 mls/hr Q8H IV Last administered on 03/29/17 12:36; Start 03/25/17 at 20:00; Stop 03/29/17 at 14:34; Status DC Furosemide (Lasix Inj) 10 mg ONCE ONCE IV PUSH Last administered on 03/26/17 13:47; Start 03/26/17 at 13:30; Stop 03/26/17 at 13:34; Status DC Furosemide (Lasix Inj) 10 mg UNSCH X1 IV PUSH Last administered on 03/27/17 01 :31; Start 03/26/17 at 17:15; Stop 03/26/17 at 23:59; Status DC Levothyroxine Sodium (Synthroid) 50 mcg DAILY@0600 PO Last administered on 04/11 07:02; Start 03/30/17 at 06:00 Levothyroxine Sodium (Synthroid) 50 mcg ONCE ONCE PO Last administered on 12:55; Start 03/29/17 at 12:00; Stop 03/29/17 at 12:02; Status DC Levofloxacin (Levaquin) 500 mg DAILY PO Last administered on 04/07/17t 08:46; Start 03/29/17 at 14:45; Stop 04/07/17 at 14:44; Status DC Propofol (Diprivan 200 Mg/20 ml Inj) 200 mg STK-MED ONCE IV ; Start 02/26/17 at 12:00; Stop 03/30/17 at 13:17; Status DC Neostigmine Methylsulfate (Prostigmin Inj) 3 mg STK-MED ONCE IV ; Start 02/26/17 at 12:00; Stop 03/30/17 at 13:17; Status DC Phenylephrine HCl (Neosynephrine/ NS 1000 Mcg/10ml Syr) 1,000 mcg STK-MED ONCE IV ; Start 02/26/17 at 12:00; Stop 03/30/17 at 13:17; Status DC Lactated Ringer's 2,000 ml @ As Directed STK-MED ONCE IV ; Start 02/26/17 at 12: 00; Stop 03/30/17 at 13:17; Status DC Propofol (Diprivan 200 Mg/20 ml Inj) 200 mg STK-MED ONCE IV ; Start 02/28/17 at 12:00; Stop 03/30/17 at 13:46; Status DC Neostigmine Methylsulfate (Prostigmin Inj) 3 mg STK-MED ONCE IV ; Start 02/28/17 at 12:00; Stop 03/30/17 at 13:46; Status DC Lactated Ringer's 2,000 ml @ As Directed STK-MED ONCE IV ; Start 02/28/17 at 12: 00; Stop 03/30/17 at 13:46; Status DC Propofol (Diprivan 200 Mg/20 ml Inj) 400 mg STK-MED ONCE IV ; Start 03/04/17 at 12:00; Stop 03/30/17 at 14:07; Status DC Ephedrine Sulfate (ePHEDrine/NS 25 MG/5 ML SYR) 25 mg STK-MED ONCE IV ; Start at 12:00; Stop 03/30/17 at 14:07; Status DC Phenylephrine HCl (Neosynephrine/ NS 1000 Mcg/10ml Syr) 2,000 mcg STK-MED ONCE IV ; Start 03/04/17 at 12:00; Stop 03/30/17 at 14:08; Status DC Ondansetron HCl (Zofran Inj) 4 mg STK-MED ONCE IV PUSH ; Start 03/04/17 at 12:00 ; Stop 03/30/17 at 14:08; Status DC Propofol (Diprivan 200 Mg/20 ml Inj) 200 mg STK-MED ONCE IV ; Start 03/08/17 at 12:00; Stop 03/30/17 at 14:49; Status DC Ephedrine Sulfate (ePHEDrine/NS 25 MG/5 ML SYR) 50 mg STK-MED ONCE IV ; Start at 12:00; Stop 03/30/17 at 14:49; Status DC Neostigmine Methylsulfate (Prostigmin Inj) 4 mg STK-MED ONCE IV ; Start at 12:00; Stop 03/30/17 at 14:49; Status DC Phenylephrine HCl (Neosynephrine/ NS 1000 Mcg/10ml Syr) 1,000 mcg STK-MED ONCE IV ; Start 03/08/17 at 12:00; Stop 03/30/17 at 14:49; Status DC Ondansetron HCl (Zofran Inj) 4 mg STK-MED ONCE IV PUSH ; Start 03/08/17 at 12:00 ; Stop 03/30/17 at 14:49; Status DC Lactated Ringer's 1,000 ml @ As Directed STK-MED ONCE IV ; Start 03/08/17 at 12 :00; Stop 03/30/17 at 14:49; Status DC Propofol (Diprivan 200 Mg/20 ml Inj) 200 mg STK-MED ONCE IV ; Start 03/10/17 at 12:00; Stop 03/30/17 at 15:08; Status DC Ephedrine Sulfate (ePHEDrine/NS 25 MG/5 ML SYR) 25 mg STK-MED ONCE IV ; Start at 12:00; Stop 03/30/17 at 15:08; Status DC Neostigmine Methylsulfate (Prostigmin Inj) 3 mg STK-MED ONCE IV ; Start at 12:00; Stop 03/30/17 at 15:08; Status DC Phenylephrine HCl (Neosynephrine/ NS 1000 Mcg/10ml Syr) 2,000 mcg STK-MED ONCE IV ; Start 03/10/17 at 12:00; Stop 03/30/17 at 15:08; Status DC Ondansetron HCl (Zofran Inj) 4 mg STK-MED ONCE IV PUSH ; Start 03/10/17 at 12:00 ; Stop 03/30/17 at 15:08; Status DC Lactated Ringer's 1,000 ml @ As Directed STK-MED ONCE IV ; Start 03/10/17 at 12 :00; Stop 03/30/17 at 15:08; Status DC Sodium Chloride 1,000 ml @ As Directed STK-MED ONCE IV ; Start 03/10/17 at 12: 00; Stop 03/30/17 at 15:08; Status DC Propofol (Diprivan 200 Mg/20 ml Inj) 200 mg STK-MED ONCE IV ; Start 03/12/17 at 12:00; Stop 03/30/17 at 15:20; Status DC Ephedrine Sulfate (ePHEDrine/NS 25 MG/5 ML SYR) 25 mg STK-MED ONCE IV ; Start at 12:00; Stop 03/30/17 at 15:20; Status DC Phenylephrine HCl (Neosynephrine/ NS 1000 Mcg/10ml Syr) 1,000 mcg STK-MED ONCE IV ; Start 03/12/17 at 12:00; Stop 03/30/17 at 15:20; Status DC Ondansetron HCl (Zofran Inj) 4 mg STK-MED ONCE IV PUSH ; Start 03/12/17 at 12:00 ; Stop 03/30/17 at 15:20; Status DC Lactated Ringer's 1,000 ml @ As Directed STK-MED ONCE IV ; Start 03/12/17 at 12 :00; Stop 03/30/17 at 15:20; Status DC Propofol (Diprivan 200 Mg/20 ml Inj) 200 mg STK-MED ONCE IV ; Start 03/18/17 at 12:00; Stop 03/30/17 at 15:38; Status DC Ondansetron HCl (Zofran Inj) 4 mg STK-MED ONCE IV PUSH ; Start 03/18/17 at 12:00 ; Stop 03/30/17 at 15:38; Status DC Neostigmine Methylsulfate (Prostigmin Inj) 3 mg STK-MED ONCE IV ; Start at 12:00; Stop 03/30/17 at 15:38; Status DC Phenylephrine HCl (Neosynephrine/ NS 1000 Mcg/10ml Syr) 1,000 mcg STK-MED ONCE IV ; Start 03/18/17 at 12:00; Stop 03/30/17 at 15:38; Status DC Oxycodone/ Acetaminophen (Percocet 5-325 Mg) 1 tab Q4H PRN PO pain 3 to 5; Start 04/02/17 at 13:00; Stop 04/09/17 at 17:08; Status DC Oxycodone/ Acetaminophen (Percocet 10-325 Mg) 1 tab Q4H PRN PO pain 6-10 Last administered on 04/09/17 14:14; Start 04/02/17 at 13:00; Stop 04/09/17 at 17:08 ; Status DC Magnesium Sulfate/ Dextrose 100 ml @ 100 mls/hr Q1H IV Last administered on 16:15; Start 04/03/17 at 14:00; Stop 04/03/17 at 15:59; Status DC Sodium Chloride (Sodium Chloride) 1 gm TID PO Last administered on 04/07/17 13 :24; Start 04/04/17 at 14:00; Stop 04/07/17 at 13:45; Status DC Calcium Chloride 2 gm/Sodium Chloride 120 ml @ 120 mls/hr ONCE ONCE IV Last administered on 04/04/17 15:45; Start 04/04/17 at 14:00; Stop 04/04/17 at 14:59 ; Status DC Hydromorphone HCl (Dilaudid Pf Inj) 0.2 mg Q6H PRN IV PUSH breakthrough pain Last administered on 04/10/17 20:54; Start 04/09/17 at 17:15 Acetaminophen/ Hydrocodone Bitart ([place] 7.5-325 Mg) 1 tab Q4H PRN PO pain 3- 5 Last administered on 04/11/17 07:02; Start 04/09/17 at 17:15 Acetaminophen/ Hydrocodone Bitart ([place] 5-325 Mg) 1 tab Q4H PRN PO pain 6-10 ; Start 04/09/17 at 17:15 Tolvaptan (Samsca) 15 mg ONCE ONCE PO Last administered on 04/09/17 22:49; Start 04/09/17 at 19:30; Stop 04/09/17 at 19:32; Status DC Carvedilol (Coreg) 6.25 mg Q12HR PO Last administered on 04/11/17 08:44; Start 04/10/17 at 09:00 Clonidine (Catapres) 0.2 mg Q8H PO Last administered on 04/10/17 20:52; Start 04/10/17 at 20:00 A/P Assessment and Plan Hyponatremia-resolved. patient recived Tolvaptan- nephrology following. 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 distant showering of emboli to other joints. MRSA bacteremia Right ankle hardware infection, s/p partial removal of hardware. Deeper hardware embedded. SP RIGHT BKA Bilateral UE hand abscess and tenosynovitis, septic arthritis s.p multiple debridements. Antibiotic per ID Plan for long-term IV antibiotics, rifampin for 6 weeks Likely will need half-way facility placement Continue pain control. Hand surgeon following ID following ortho surgery following. Multiple surgeries thus far: - podiatry Dr. Reyes/Dr. Gamez on 02/26, 02/28, 03/04 - hand surgeon Dr. Bullock on 02/26, 02/28, 03/04, 03/08, 03/10 -right BKA Anemia Follow CBC Status post blood transfusion Acute Toxic/Metabolic Encephalopathy secondary to Sepsis-improved. Acute Alcohol Withdrawal - improved Hypertension Continue clonidine and Coreg, cardiology initiate low dose lisinopril, monitor renal function decreased clonidine due to low-normal BP's. Follow blood pressures Adjust as needed for control Mild Systolic CHF Scrotal edema EF of 40-45% with global hypokinesis found on 02/28/17 Continue beta amarjit HYPOTHYROIDISM continue synthroid THADDEUS mostly vanco induced - resolved Monitor renal function Avoid nephrotoxins Previous event was likely secondary to ATN Nephrology following Urinary retention Monitor urine output Hepatitis C- f/u as outpatient. Standard precautions Dysphagia: Improved patient on regular diet Dietitian to assess tapering tube feed DVT Prophylaxis Flaca Funez MD Apr 11, 2017 11:14
[2017-04-11] MEDS: DAPTOMYCIN IV SCH (12:13)
[2017-04-11] MEDS: SODIUM CHLORIDE 0.9% IV SCH (12:13)
[2017-04-11] MEDS: ENOXAPARIN SODIUM 40 MG/0.4 ML SYRINGE SQ SCH (12:14)
[2017-04-11 12:28] VITALS: BP 135/67; PULSE 69; RESP 18; TEMP 99.1; O2SAT 97
[2017-04-11 16:07] VITALS: BP 127/64; PULSE 65; RESP 18; TEMP 99; O2SAT 97
[2017-04-11 20:00] VITALS: BP 158/77; PULSE 67; RESP 12; TEMP 97.4; O2SAT 97
[2017-04-11] MEDS: PANTOPRAZOLE SODIUM 40 MG VIAL IV PUSH SCH (23:36)
[2017-04-12] VITALS: BP 120/67; PULSE 57; RESP 14; TEMP 98.3; O2SAT 99
[2017-04-12] MEDS: ACETAMINOPHEN/HYDROcodone 325 MG/7.5 MG TAB PO PRN ×5 (02:48→18:25)
[2017-04-12] MEDS: cloNIDine HCL 0.2 MG TAB PO SCH ×3 (03:57→20:51)
[2017-04-12 04:00] VITALS: BP 134/65; PULSE 63; RESP 16; TEMP 98; O2SAT 96
[2017-04-12] MEDS: METHOCARBAMOL 500 MG TAB PO SCH ×3 (06:32→20:48)
[2017-04-12] MEDS: LEVOTHYROXINE SODIUM 50 MCG TAB PO SCH (06:32)
[2017-04-12 08:00] VITALS: BP 133/67; PULSE 60; RESP 20; TEMP 98.4; O2SAT 98
[2017-04-12 09:51] LABS: AST (GOT) 28 U/L (15-37); BICARBONATE 28.8 MEQ/L (21.0-32.0); BLOOD UREA NITROGEN 13 MG/DL (7-18); GLOMERULAR FILTRATION RATE 134 ML/MIN (>89)
[2017-04-12] MEDS: THIAMINE HCL 100 MG TAB PO SCH (09:52)
[2017-04-12] MEDS: LISINOPRIL 5 MG TAB PO SCH (09:52)
[2017-04-12] MEDS: MUPIROCIN 2% OINT 1 APPLIC/GM SYR NASAL SCH ×2 (09:52→20:51)
[2017-04-12] MEDS: CARVEDILOL 6.25 MG TAB PO SCH ×2 (09:53→20:50)
[2017-04-12] MEDS: MULTIVITAMIN TAB PO SCH (09:53)
[2017-04-12 09:56] LABS: ALKALINE PHOSPHATASE 96 U/L (45-117); ALT (GPT) 26 U/L (12-78); TOTAL BILIRUBIN ADULT 0.2 MG/DL (0.2-1.0)
[2017-04-12 10:05] LABS: ANION GAP 6 MEQ/L (5-15); CHLORIDE 101 MEQ/L (98-107); POTASSIUM 4.1 MEQ/L (3.5-5.1); SODIUM (NA) 136 MEQ/L (136-145)
--- NOTE | 2017-04-12 11:10 | HHI.PR ---
Subjective Remarks resting comfortably with no distress. afebrile. pain is controlled. Objective Vitals Vital Signs Date Time Temp Pulse Resp B/P (MAP) Pulse Ox O2 Delivery O2 Flow Rate FiO2 04/12/17 08:00 98.4 60 20 133/67 (89) 98 04/12/17 04:00 98.0 63 16 134/65 (88) 96 04/12/17 00:00 98.3 57 14 120/67 (84) 99 04/11/17 21:00 Room Air 04/11/17 20:00 97.4 67 12 158/77 (104) 97 04/11/17 18:31 18 04/11/17 16:07 99.0 65 18 127/64 (85) 97 04/11/17 12:28 99.1 69 18 135/67 (89) 97 I/O 04/11/17 04/11/17 04/11/17 04/12/17 04/12/17 04/12/17 07:00 15:00 23:00 07:00 15:00 23:00 Intake Total 560 ml 600 ml Output Total 3700 ml 2200 ml 1800 ml Balance -3140 ml -1600 ml -1800 ml Intake Oral 560 ml 600 ml Output Urine Total 3700 ml 2200 ml 1800 ml # Bowel Movements 0 0 Result Diagram: 04/12/17 0722 Imaging Last Impressions Chest X-Ray 03/29/17 0000 Signed Impressions: Service Date/Time: Wednesday, March 29, 2017 12:17 - CONCLUSION: Stable chest. Isaac Stevenson MD FACR Tumor Localization 03/22/17 0000 Signed Impressions: Service Date/Time: Wednesday, March 22, 2017 13:03 - CONCLUSION: Nondiagnostic examination secondary to patient refusal Harry Lucio MD Abdomen X-Ray 03/08/17 0000 Signed Impressions: Service Date/Time: Wednesday, March 08, 2017 10:30 - CONCLUSION: Nonspecific, negative for obstruction or ileus. Isaac Stevenson MD FACR Lower Extremity CT 03/01/17 0000 Signed Impressions: Service Date/Time: Wednesday, March 01, 2017 11:12 - CONCLUSION: 1. No evidence of organized fluid collections to suggest an abscess. 2. Extensive soft tissue swelling surrounding the ankle and extending to the forefoot especially along the lateral aspect. 3. No erosive or destructive bone changes. 4. Bone defects compatible with previous excision device. Blake Rider MD Ankle X-Ray 02/26/17 0000 Signed Impressions: Service Date/Time: Sunday, February 26, 2017 17:15 - CONCLUSION: I see no retained surgical instruments. Isaac Stevenson MD FACR Upper Extremity Ultrasound 02/25/17 1734 Signed Impressions: Service Date/Time: February 17:54 - CONCLUSION: There is a thin fluid collection within the focal area of soft tissue swelling 2nd digit. Oscar Cassidy MD Hand X-Ray 02/25/17 0000 Signed Impressions: Service Date/Time: February 18:59 - CONCLUSION: No gross bony abnormality. Oscar Cassidy MD Lower Extremity Ultrasound 02/24/17 0000 Signed Impressions: Service Date/Time: Friday, February 24, 2017 13:41 - CONCLUSION: Negative for deep venous thrombosis. Isaac Stevenson MD FACR Head CT 02/24/17 0000 Signed Impressions: Service Date/Time: Friday, February 24, 2017 16:08 - CONCLUSION: 1. No acute intracranial abnormality. 2. Probable large mucocele in the sphenoid sinus. Ty Hankins MD Abdomen/Pelvis CT 02/24/17 0000 Signed Impressions: Service Date/Time: Friday, February 24, 2017 16:16 - CONCLUSION: 1. Marked gaseous distension of large and small bowel most suggestive of ileus. 2. There is no free air. 3. 2.2 cm left adrenal mass. 4. Distended bladder. Isaac Stevenson MD FACR Objective Remarks GENERAL: This is a well-nourished, well-developed patient, in no apparent distress. CARDIOVASCULAR: Regular rate and regular rhythm without murmurs, gallops, or rubs. RESPIRATORY: Clear to auscultation. Breath sounds equal bilaterally. No wheezes , rales, or rhonchi. GASTROINTESTINAL: Abdomen soft, non-tender, nondistended. Normal, active bowel sounds MUSCULOSKELETAL: right forearm covered with clean dressing- s/p right BKA NEURO: Alert & Oriented x4 to person, place, time, situation. Moves all ext x4 Procedures 03/10/2017 - Dr. Bullock exploration, wash, excisional debridement extensor tenosynovium right wrist/forearm/hand 03/08/17 - Dr. Bullock- exploration, wash, excisional debridement skin, subcutaneous tissue, extensor tenosynovitis right wrist and hand. Findings: necrotic tissue, minimal purulence, extensor tenosynovitis right wrist/hand 03/04/17 - Dr Gamez - Right leg and incision and drainage. Right foot delayed primary closure x3 03/04/17 - Dr. Bullock - Extensor tenosynovectomy second, third, fourth extensor compartments right wrist and excisional debridement wash index finger metacarpal phalangeal joint, excisional wash and excisional debridement left hand. 02/28/17 - Dr. Reyes - Right ankle wound debridement and washout. Implantation of antibiotic vancomycin beads. 02/28/17 - Dr. Bullock - Exploration, wash, excisional debridement index finger metacarpophalangeal joint right hand; Exploration, wash, excisional debridement metacarpophalangeal joint left index finger; Exploration, wash, excisional debridement extensor pollicis longus tendon right thumb and hand. 02/26/17 - Dr. Reyes - Right ankle incision and drainage, arthrotomy, removal infected hardware, bone biopsy. 02/26/17 - Dr. Bullock - Exploration, incision and drainage right hand abscess, Arthrotomy wash metacarpal phalangeal joint right index finger, Arthrotomy wash metacarpal phalangeal joint left index finger. Medications and IVs Current Medications Sodium Chloride 1,000 ml @ 999 mls/hr BOLUS ONCE IV Last administered on 13:38; Start 02/24/17 at 13:45; Stop 02/24/17 at 14:45; Status DC IV Flush (NS Flush) 2 ml UNSCH PRN IV FLUSH FLUSH AFTER USING IV ACCESS Last administered on 02/24/17 13:38; Start 02/24/17 at 13:45 Vancomycin HCl 1000 mg/Sodium Chloride 250 ml @ 250 mls/hr ONCE STAT IV Last administered on 02/24/17 15:49; Start 02/24/17 at 15:35; Stop 02/24/17 at 16:34; Status DC Cefepime HCl 2000 mg/Sodium Chloride 100 ml @ 200 mls/hr ONCE STAT IV Last administered on 02/24/17 16:36; Start 02/24/17 at 15:35; Stop 02/24/17 at 16:04; Status DC Potassium Bicarb/ Potassium Chloride (K-Lyte Cl Eff) 50 meq ONCE ONCE PO Last administered on 02/24/17 15:56; Start 02/24/17 at 16:00; Stop 02/24/17 at 16: 01; Status DC Iohexol (Omnipaque 350 Inj) 97 ml STK-MED ONCE IV Last administered on 16:29; Start 02/24/17 at 16:29; Stop 02/24/17 at 16:30; Status DC Sodium Chloride 1,000 ml @ 125 mls/hr Q8H IV Last administered on 03/02/17 09: 33; Start 02/24/17 at 18:00; Stop 03/02/17 at 13:08; Status DC Ondansetron HCl (Zofran Inj) 4 mg Q8HR PRN IV PUSH NAUSEA; Start 02/24/17 at 18: 00 Thiamine HCl (Vitamin B1) 100 mg ONCE ONCE PO Last administered on 02/24/17 20 :20; Start 02/24/17 at 20:15; Stop 02/24/17 at 20:16; Status DC Thiamine HCl (Vitamin B1) 100 mg DAILY PO Last administered on 04/12/17 09:52 ; Start 02/25/17 at 09:00 Potassium Chloride 100 ml @ 50 mls/hr Q2H IV Last administered on 02/24/17 22: 59; Start 02/24/17 at 20:30; Stop 02/25/17 at 00:29; Status DC Pharmacy Profile Note 0 ml @ 0 mls/hr UNSCH OTHER ; Start 02/24/17 at 20:15; Stop 03/02/17 at 13:23; Status DC Cefepime HCl 2000 mg/Sodium Chloride 100 ml @ 200 mls/hr Q12H IV Last administered on 02/27/17 05:51; Start 02/25/17 at 07:00; Stop 02/27/17 at 14:53; Status DC Vancomycin HCl 1500 mg/Sodium Chloride 515 ml @ 257.5 mls/ hr Q18H IV Last administered on 02/25/17 10:30; Start 02/25/17 at 10:00; Stop 02/25/17 at 11:30; Status DC Miscellaneous Information SPECIFIC LAB TO BE DRAWN:[facility]ANCO TROUGH DATE TO BE DRLaurence.. ONCE ONCE .XX ; Start 02/26/17 at 21:45; Stop 02/26/17 at 21:46; Status DC Flumazenil (Romazicon Inj) 0.2 mg Q1M PRN IV PUSH SEE LABEL COMMENTS; Start 02/25/17 at 09:15 Lorazepam (Ativan) 1 mg Q4H PRN PO agitation Last administered on 03/20/17 03: 18; Start 02/25/17 at 09:15 Lorazepam (Ativan Inj) 1 mg Q4H PRN IV PUSH agitation when not taking po Last administered on 03/05/17 02:41; Start 02/25/17 at 09:15 Lorazepam (Ativan) 2 mg Q2H PRN PO CIWA 11-14; Start 02/25/17 at 09:15; Stop 02/28/17 at 07:44; Status DC Lorazepam (Ativan Inj) 2 mg Q2H PRN IV PUSH CIWA 11-14 Last administered on 02/26 18:14; Start 02/25/17 at 09:15; Stop 02/28/17 at 07:44; Status DC Lorazepam (Ativan Inj) 2 mg Q1H PRN IV PUSH CIWA 15-20 Last administered on 02/25 21:37; Start 02/25/17 at 09:15; Stop 02/28/17 at 07:44; Status DC Lorazepam (Ativan Inj) 2 mg Q15M PRN IV PUSH CIWA > 20 Last administered on 02/26 06:25; Start 02/25/17 at 09:15; Stop 02/28/17 at 07:44; Status DC Multivitamins (Theragran) 1 tab DAILY PO Last administered on 04/12/17 09:53; Start 02/26/17 at 09:00 Acetaminophen (Tylenol) 650 mg Q4H PRN PO FEVER Last administered on 03/07/17 04:47; Start 02/25/17 at 09:15; Stop 03/12/17 at 10:47; Status DC Lisinopril (Prinivil) 10 mg DAILY PO ; Start 02/26/17 at 09:00; Stop 03/08/17 at 21:09; Status DC Enoxaparin Sodium (Lovenox Inj) 40 mg Q24H SQ Last administered on 03/07/17 10 :00; Start 02/25/17 at 10:00; Stop 03/10/17 at 12:17; Status DC Vancomycin HCl 1500 mg/Sodium Chloride 515 ml @ 257.5 mls/ hr Q12H IV Last administered on 02/26/17 09:42; Start 02/25/17 at 22:00; Stop 02/26/17 at 12:06; Status DC Miscellaneous Information SPECIFIC LAB TO BE BIA... ONCE ONCE .XX Last administered on 02/26/17 09:45; Start 02/26/17 at 09:45; Stop 02/26/17 at 09:46; Status DC Chlordiazepoxide (Librium) 25 mg Q8H PO ; Start 02/25/17 at 17:00; Stop 02/25/17 at 20:24; Status DC Gentamicin Sulfate 70 mg/ Sodium Chloride 101.75 ml @ 100 mls/ hr ONCE ONCE IV Last administered on 02/25/17 18:51; Start 02/25/17 at 18:30; Stop 02/25/17 at 19:31; Status DC Dexmedetomidine HCl 200 mcg/ Sodium Chloride 52 ml @ 0 mls/hr TITRATE IV Last administered on 02/27/17 13:55; Start 02/25/17 at 17:30; Stop 03/09/17 at 23:34; Status DC Acetaminophen (Ofirmev Inj) 650 mg Q6H PRN IV TEMP >101 Last administered on 20:12; Start 02/25/17 at 21:00 Iohexol (Omnipaque 350 Inj) 75 ml STK-MED ONCE IV Last administered on 21:15; Start 02/25/17 at 21:15; Stop 02/25/17 at 21:16; Status DC Potassium Chloride 100 ml @ 50 mls/hr Q2H PRN IV For Potassium 2.8 - 3.2 mEq/L ; Start 02/25/17 at 22:45; Stop 03/01/17 at 23:53; Status DC Potassium Chloride 100 ml @ 50 mls/hr Q2H PRN IV For Potassium 2.8 - 3.2 mEq/ L Last administered on 02/28/17 12:32; Start 02/25/17 at 22:45; Stop 03/01/17 at 23:53; Status DC Potassium Bicarb/ Potassium Chloride (K-Lyte Cl Eff) 50 meq UNSCH PRN PO For Potassium 3.3 - 3.5 mEq/L; Start 02/25/17 at 22:45; Stop 03/01/17 at 23:53; Status DC Potassium Chloride 100 ml @ 25 mls/hr UNSCH PRN IV For Potassium 3.3 - 3.5 mEq /L; Start 02/25/17 at 22:45; Stop 03/01/17 at 23:53; Status DC Potassium Chloride 100 ml @ 50 mls/hr Q2H PRN IV For Potassium 3.3 - 3.5 mEq/ L Last administered on 02/28/17 06:39; Start 02/25/17 at 22:45; Stop 03/01/17 at 23:53; Status DC Magnesium Sulfate 4 gm/Sodium Chloride 100 ml @ 50 mls/hr UNSCH PRN IV For Magnesium 0.9 - 1.1 mg/dL; Start 02/25/17 at 22:45; Stop 03/01/17 at 23:53; Status DC Magnesium Oxide (Mag-Ox) 800 mg UNSCH PRN PO For Magnesium 1.2 - 1.6 mg/dL; Start 02/25/17 at 22:45; Stop 03/01/17 at 23:53; Status DC Magnesium Sulfate 2 gm/Sodium Chloride 100 ml @ 50 mls/hr UNSCH PRN IV For Magnesium 1.2 - 1.6 mg/dL; Start 02/25/17 at 22:45; Stop 03/01/17 at 23:53; Status DC Potassium Phosphate (K-Phos) 2,000 mg Q4H PRN PO For Phosphorus < 2.5 mg/dL; Start 02/25/17 at 22:45; Stop 03/01/17 at 23:53; Status DC Sodium Phosphate 30 mmol/Sodium Chloride 250 ml @ 42 mls/hr UNSCH PRN IV For Phosphorus < 2.5 mg/dL Last administered on 02/26/17 23:19; Start 02/25/17 at 22: 45; Stop 03/01/17 at 23:53; Status DC Potassium Phosphate (K-Phos) 2,000 mg UNSCH PRN PO/TUBE SEE LABEL COMMENTS; Start 02/25/17 at 22:45; Stop 03/01/17 at 23:53; Status DC Potassium Phosphate 30 mmol/ Sodium Chloride 260 ml @ 42 mls/hr UNSCH PRN IV SEE LABEL COMMENTS; Start 02/25/17 at 22:45; Stop 03/01/17 at 23:53; Status DC Labetalol HCl (Trandate Inj) 10 mg Q6H PRN IV PUSH SBP >165; Start 02/25/17 at 23:15 Pantoprazole Sodium (Protonix Inj) 40 mg Q24H IV PUSH Last administered on 04/11 23:36; Start 02/26/17 at 00:00 Miscellaneous Information Patient in critical care unit? Ass... [id number] .XX ; Start 02/26/17 at 07:15 Mupirocin (Bactroban Nasal 2% Oint) 1 applic BID NASAL Last administered on 09:52; Start 02/26/17 at 09:00 Chlorhexidine Gluconate (Chlorhexidine 2% Cloth) 3 pack DAILY@04 TOPICAL Last administered on 03/03/17 04:00; Start 02/27/17 at 04:00; Stop 03/03/17 at 04:01; Status DC Chlorhexidine Gluconate (Chlorhexidine 2% Cloth) 3 pack UNSCH PRN TOPICAL HYGIENIC CARE; Start 02/26/17 at 07:15; Stop 03/03/17 at 07:07; Status DC Lidocaine HCl (Xylocaine 2% Inj) 50 ml STK-MED ONCE .ROUTE ; Start 02/26/17 at 09 :35; Stop 02/26/17 at 09:36; Status DC Bupivacaine HCl (Marcaine Pf 0.5% Inj) 60 ml STK-MED ONCE .ROUTE ; Start at 09:35; Stop 02/26/17 at 09:36; Status DC Mupirocin (Bactroban 2% Oint) 22 applic STK-MED ONCE .ROUTE ; Start 02/26/17 at 09:35; Stop 02/26/17 at 09:36; Status DC Vancomycin HCl 1250 mg/Sodium Chloride 262.5 ml @ 250 mls/hr Q12H IV Last administered on 03/02/17 09:33; Start 02/26/17 at 22:00; Stop 03/02/17 at 13:23; Status DC Miscellaneous Information SPECIFIC LAB TO BE BIA... ONCE ONCE .XX Last administered on 02/27/17 22:46; Start 02/27/17 at 21:45; Stop 02/27/17 at 21:46; Status DC Neomycin/Polymyxin (Neosporin G.u. Irr) 3 ml STK-MED ONCE TOPICAL Last administered on 02/26/17 13:06; Start 02/26/17 at 13:06; Stop 02/26/17 at 16:26; Status DC Neomycin/Polymyxin (Neosporin G.u. Irr) 4 ml STK-MED ONCE TOPICAL Last administered on 02/26/17 15:47; Start 02/26/17 at 15:47; Stop 02/26/17 at 16:26; Status DC Fentanyl Citrate (fentaNYL INJ) 250 mcg STK-MED ONCE .ROUTE ; Start 02/26/17 at 18:16; Stop 02/26/17 at 18:17; Status DC Fentanyl Citrate (fentaNYL INJ) 100 mcg STK-MED ONCE .ROUTE ; Start 02/26/17 at 18:16; Stop 02/26/17 at 18:17; Status DC Miscellaneous Information ALL NURSING DEPARTME... UNSCH PRN .XX SEE LABEL COMMENTS; Start 02/26/17 at 17:57; Stop 02/27/17 at 17:56; Status DC Clonidine (Catapres) 0.3 mg Q8HR PO Last administered on 04/10/17 12:33; Start 02/26/17 at 22:11; Stop 04/10/17 at 12:52; Status DC Diazepam (Valium) 5 mg Taper DAILY PO Last administered on 03/06/17 09:49; Start 02/26/17 at 22:15; Stop 03/06/17 at 22:14; Status DC Water (Free Water) 200 ml Q8HR G-TUBE Last administered on 02/27/17 22:31; Start 02/27/17 at 06:55; Stop 02/28/17 at 07:41; Status DC Rifampin 300 mg/ Sodium Chloride 100 ml @ 100 mls/hr Q12H IV Last administered on 03/02/17 14:41; Start 02/27/17 at 15:00; Stop 03/02/17 at 16:41; Status DC Oxycodone HCl (Roxicodone) 5 mg Q4H PRN PO pain 1-5 Last administered on 09:26; Start 02/28/17 at 07:45; Stop 04/09/17 at 17:08; Status DC Hydromorphone HCl (Dilaudid Pf Inj) 0.5 mg Q3H PRN IV PUSH pain 6-10 or not taking po Last administered on 04/09/17 16:51; Start 02/28/17 at 07:45; Stop at 17:08; Status DC Water (Free Water) 300 ml Q4HR G-TUBE Last administered on 03/02/17 20:00; Start 02/28/17 at 08:00; Stop 03/02/17 at 23:07; Status DC Vancomycin HCl (Vancomycin Inj) 1,000 mg STK-MED ONCE .ROUTE Last administered on 02/28/17 09:01; Start 02/28/17 at 09:01; Stop 02/28/17 at 09:02; Status DC Vancomycin HCl (Vancomycin Inj) 1,000 mg STK-MED ONCE .ROUTE Last administered on 02/28/17 09:33; Start 02/28/17 at 09:33; Stop 02/28/17 at 09:34; Status DC Vancomycin HCl (Vancomycin Inj) 1,000 mg STK-MED ONCE .ROUTE Last administered on 02/28/17 09:36; Start 02/28/17 at 09:33; Stop 02/28/17 at 09:34; Status DC Daptomycin 450 mg/ Sodium Chloride 100 ml @ 200 mls/hr Q24H IV Last administered on 03/05/17 13:41; Start 02/28/17 at 12:00; Stop 03/05/17 at 18:00 ; Status DC Vancomycin HCl (Vancomycin Inj) 1,000 mg STK-MED ONCE .ROUTE Last administered on 02/28/17 10:45; Start 02/28/17 at 10:42; Stop 02/28/17 at 10:43; Status DC Vancomycin HCl (Vancomycin Inj) 500 mg STK-MED ONCE .ROUTE Last administered on 02/28/17 10:45; Start 02/28/17 at 10:42; Stop 02/28/17 at 10:43; Status DC Fentanyl Citrate (fentaNYL INJ) 250 mcg STK-MED ONCE .ROUTE ; Start 02/28/17 at 11:48; Stop 02/28/17 at 11:49; Status DC Miscellaneous Information ALL NURSING DEPARTME... UNSCH PRN .XX SEE LABEL COMMENTS; Start 02/28/17 at 11:33; Stop 03/01/17 at 11:32; Status DC Miscellaneous Information SPECIFIC LAB TO BE BIA... ONCE ONCE .XX ; Start 03/04 at 09:45; Stop 03/04/17 at 09:46; Status Cancel Sodium Chloride 1,000 ml @ 999 mls/hr BOLUS ONCE IV Last administered on 13:28; Start 03/02/17 at 13:15; Stop 03/02/17 at 14:15; Status DC Sodium Chloride 1,000 ml @ 125 mls/hr Q8H IV Last administered on 03/02/17 14: 18; Start 03/02/17 at 13:15; Stop 03/02/17 at 14:30; Status DC Rifampin (Rifampin) 300 mg Q12HR PO Last administered on 03/23/17 08:42; Start 03/02/17 at 21:00; Stop 03/23/17 at 18:40; Status DC Potassium Chloride 20 meq/ Sodium Chloride 38.5 meq/Sterile Water 1,010 ml @ 55 mls/hr [id number] IV Last administered on 03/09/17 22:51; Start 03/03/17 at 11: 00; Stop 03/09/17 at 23:36; Status DC Furosemide (Lasix Inj) 20 mg ONCE ONCE IV PUSH Last administered on 03/03/17 10:19; Start 03/03/17 at 09:30; Stop 03/03/17 at 09:43; Status DC Carvedilol (Coreg) 6.25 mg Q12HR PO Last administered on 04/09/17 08:40; Start 03/03/17 at 21:00; Stop 04/10/17 at 03:26; Status DC Vancomycin HCl (Vancomycin Inj) 1,000 mg STK-MED ONCE .ROUTE Last administered on 03/04/17 15:52; Start 03/04/17 at 15:10; Stop 03/04/17 at 15:11; Status DC Fentanyl Citrate (fentaNYL INJ) 100 mcg STK-MED ONCE .ROUTE ; Start 03/04/17 at 16:38; Stop 03/04/17 at 16:39; Status DC Fentanyl Citrate (fentaNYL INJ) 250 mcg STK-MED ONCE .ROUTE ; Start 03/04/17 at 16:38; Stop 03/04/17 at 16:39; Status DC Vancomycin HCl (Vancomycin Inj) 1,000 mg STK-MED ONCE .ROUTE Last administered on 03/04/17 16:52; Start 03/04/17 at 16:59; Stop 03/04/17 at 17:00; Status DC Fentanyl Citrate (fentaNYL INJ) 100 mcg STK-MED ONCE .ROUTE ; Start 03/04/17 at 18:24; Stop 03/04/17 at 18:25; Status DC Fentanyl Citrate (fentaNYL INJ) 250 mcg STK-MED ONCE .ROUTE ; Start 03/04/17 at 18:25; Stop 03/04/17 at 18:26; Status DC Miscellaneous Information ALL NURSING DEPARTME... UNSCH PRN .XX SEE LABEL COMMENTS; Start 03/04/17 at 19:15; Stop 03/05/17 at 19:14; Status DC Daptomycin 550 mg/ Sodium Chloride 100 ml @ 200 mls/hr Q24H IV Last administered on 04/11/17 12:13; Start 03/06/17 at 12:00 Bisacodyl (Dulcolax Supp) 10 mg DAILY PRN RECTAL SEVERE CONSITIPATION; Start at 21:00 Lactulose (Lactulose Liq) 30 ml DAILY PRN NG SEVERE CONSITIPATION Last administered on 03/07/17 18:45; Start 03/06/17 at 21:00 Docusate Sodium (Colace Liq) 100 mg Q12HR PO Last administered on 03/09/17 09: 30; Start 03/06/17 at 21:15; Status Future Hold Sodium Chloride 250 ml @ 15 mls/hr ONCE ONCE IV Last administered on 00:27; Start 03/07/17 at 19:00; Stop 03/08/17 at 12:06; Status DC Furosemide (Lasix Inj) 20 mg ONCE ONCE IV Last administered on 03/08/17t 03:49 ; Start 03/07/17 at 19:00; Stop 03/07/17 at 19:01; Status DC Polyethylene Glycol/ Electrolytes (Colyte Liq) 4,000 ml ONCE ONCE PO ; Start at 11:00; Stop 03/08/17 at 11:01; Status Cancel Mupirocin (Bactroban 2% Oint) 22 applic STK-MED ONCE .ROUTE ; Start 03/08/17 at 12:10; Stop 03/08/17 at 12:11; Status DC Lidocaine HCl (Xylocaine 2% Inj) 50 ml STK-MED ONCE .ROUTE ; Start 03/08/17 at 12:13; Stop 03/08/17 at 12:14; Status DC Bupivacaine HCl (Marcaine Pf 0.5% Inj) 30 ml STK-MED ONCE .ROUTE ; Start at 12:17; Stop 03/08/17 at 12:18; Status DC Famotidine (Pepcid Inj) 20 mg STK-MED ONCE .ROUTE ; Start 03/08/17 at 13:17; Stop 03/08/17 at 13:18; Status DC Vancomycin HCl (Vancomycin Inj) 1,000 mg STK-MED ONCE .ROUTE Last administered on 03/08/17t 14:35; Start 03/08/17 at 14:07; Stop 03/08/17 at 14:08; Status DC Sodium Chloride (Sodium Chloride 0.9% Inj) 20 ml STK-MED ONCE .ROUTE ; Start at 14:07; Stop 03/08/17 at 14:08; Status DC Vancomycin HCl (Vancomycin Inj) 1,000 mg STK-MED ONCE .ROUTE ; Start 03/08/17 at 14:42; Stop 03/08/17 at 14:43; Status DC Sodium Chloride (Sodium Chloride 0.9% Inj) 20 ml STK-MED ONCE .ROUTE ; Start at 14:42; Stop 03/08/17 at 14:43; Status DC Fentanyl Citrate (fentaNYL INJ) 500 mcg STK-MED ONCE .ROUTE ; Start 03/08/17 at 15:51; Stop 03/08/17 at 15:52; Status DC Miscellaneous Information ALL NURSING DEPARTME... UNSCH PRN .XX SEE LABEL COMMENTS; Start 03/08/17 at 15:40; Stop 03/09/17 at 15:39; Status DC Polyethylene Glycol/ Electrolytes (Colyte Liq) 4,000 ml ONCE ONCE NG Last administered on 03/08/17 22:42; Start 03/08/17 at 20:00; Stop 03/08/17 at 20:01 ; Status DC Lisinopril (Prinivil) 2.5 mg DAILY PO Last administered on 04/12/17 09:52; Start 03/09/17 at 09:00 Miscellaneous (Pill Splitter) 1 ea UNSCH PRN OTHER SEE LABEL COMMENTS; Start at 21:15 Dextrose 1,000 ml @ 84 mls/hr [id number] IV Last administered on 03/11/17 21:24 ; Start 03/09/17 at 23:45; Stop 03/11/17 at 23:38; Status DC Enoxaparin Sodium (Lovenox Inj) 40 mg Q24H SQ Last administered on 04/11/17 12 :14; Start 03/10/17 at 13:00; Status Future hold Bupivacaine HCl (Marcaine Pf 0.5% Inj) 30 ml STK-MED ONCE .ROUTE ; Start at 14:50; Stop 03/10/17 at 14:51; Status DC Lidocaine HCl (Xylocaine 2% Inj) 50 ml STK-MED ONCE .ROUTE ; Start 03/10/17 at 14:51; Stop 03/10/17 at 14:52; Status DC Bacitracin (Baciguent Oint) 15 applic STK-MED ONCE .ROUTE Last administered on 03/10/17 16:43; Start 03/10/17 at 14:51; Stop 03/10/17 at 14:52; Status DC Vancomycin HCl (Vancomycin Inj) 1,000 mg STK-MED ONCE .ROUTE Last administered on 03/10/17 15:49; Start 03/10/17 at 15:45; Stop 03/10/17 at 15:46; Status DC Sodium Chloride (Sodium Chloride 0.9% Inj) 20 ml STK-MED ONCE .ROUTE ; Start at 15:45; Stop 03/10/17 at 15:46; Status DC Neomycin/Polymyxin (Neosporin G.u. Irr) 2 ml STK-MED ONCE TOPICAL Last administered on 03/10/17 15:49; Start 03/10/17 at 15:49; Stop 03/10/17 at 15:59 ; Status DC Bacitracin (Baciguent Oint) 30 applic STK-MED ONCE .ROUTE Last administered on 03/10/17 16:44; Start 03/10/17 at 16:41; Stop 03/10/17 at 16:42; Status DC Hydromorphone HCl (Dilaudid Pf Inj) 2 mg STK-MED ONCE .ROUTE ; Start 03/10/17 at 16:47; Stop 03/10/17 at 16:48; Status DC Fentanyl Citrate (fentaNYL INJ) 250 mcg STK-MED ONCE .ROUTE ; Start 03/10/17 at 17:22; Stop 03/10/17 at 17:23; Status DC Morphine Sulfate (*morphine INJ PERIprocedure ONLY) 8 mg STK-MED ONCE .ROUTE Last administered on 03/10/17 18:12; Start 03/10/17 at 18:12; Stop 03/10/17 at 18:13; Status DC Miscellaneous Information ALL NURSING DEPARTME... UNSCH PRN .XX SEE LABEL COMMENTS; Start 03/10/17 at 14:30; Stop 03/11/17 at 14:29; Status DC Propofol (Diprivan 200 Mg/20 ml Inj) 200 mg STK-MED ONCE IV PUSH ; Start at 15:29; Stop 03/11/17 at 15:47; Status DC Oxybenzone/ Padimate O/ Dimethicone (Blistex Lip [place]) 4.25 applic STK-MED ONCE TOPICAL Last administered on 03/11/17 16:02; Start 03/11/17 at 16:02; Stop at 16:03; Status DC Miscellaneous Information ALL NURSING DEPARTME... UNSCH PRN .XX SEE LABEL COMMENTS; Start 03/11/17 at 16:00; Stop 03/12/17 at 15:59; Status DC Succinylcholine Chloride (Quelicin Inj) 200 mg STK-MED ONCE IV PUSH ; Start at 15:27; Stop 03/12/17 at 08:59; Status DC Sodium Chloride 250 ml @ 15 mls/hr ONCE ONCE IV Last administered on 10:15; Start 03/12/17 at 10:15; Stop 03/13/17 at 02:54; Status DC Acetaminophen (Tylenol) 650 mg Q4H PRN PO SEE LABEL COMMENTS; Start 03/12/17 at 10:15; Stop 03/12/17 at 14:16; Status DC Diphenhydramine HCl (Benadryl) 25 mg Q4H PRN PO SEE LABEL COMMENTS; Start 03/12 at 10:15; Stop 03/12/17 at 14:16; Status DC Potassium Chloride 100 ml @ 50 mls/hr Q2H IV Last administered on 03/12/17 13 :25; Start 03/12/17 at 11:00; Stop 03/12/17 at 14:59; Status DC Lidocaine HCl (Xylocaine 2% Inj) 50 ml STK-MED ONCE .ROUTE ; Start 03/12/17 at 13:04; Stop 03/12/17 at 13:05; Status DC Mupirocin (Bactroban 2% Oint) 22 applic STK-MED ONCE .ROUTE ; Start 03/12/17 at 13:06; Stop 03/12/17 at 13:07; Status DC Hydromorphone HCl (Dilaudid Pf Inj) 2 mg STK-MED ONCE .ROUTE ; Start 03/12/17 at 15:18; Stop 03/12/17 at 15:19; Status DC Acetaminophen (Ofirmev Inj) 1,000 mg STK-MED ONCE IV ; Start 03/12/17 at 15:18; Stop 03/12/17 at 15:19; Status DC Vancomycin HCl (Vancomycin Inj) 1,000 mg STK-MED ONCE .ROUTE Last administered on 03/12/17 15:54; Start 03/12/17 at 15:57; Stop 03/12/17 at 15:58; Status DC Neomycin/Polymyxin (Neosporin G.u. Irr) 2 ml STK-MED ONCE TOPICAL Last administered on 03/12/17 15:54; Start 03/12/17 at 15:54; Stop 03/12/17 at 16:15 ; Status DC Fentanyl Citrate (fentaNYL INJ) 250 mcg STK-MED ONCE .ROUTE ; Start 03/12/17 at 17:04; Stop 03/12/17 at 17:05; Status DC Miscellaneous Information ALL NURSING DEPARTME... UNSCH PRN .XX SEE LABEL COMMENTS; Start 03/12/17 at 17:30; Stop 03/13/17 at 17:29; Status DC Morphine Sulfate (*morphine INJ PERIprocedure ONLY) 8 mg STK-MED ONCE .ROUTE Last administered on 03/12/17 17:33; Start 03/12/17 at 17:33; Stop 03/12/17 at 17:34; Status DC Lidocaine HCl (Xylocaine 1% Inj) 10 ml ONCE@0700 ONCE OTHER ; Start 03/13/17 at 07:00; Stop 03/13/17 at 07:01; Status DC Potassium Chloride/Sodium Chloride 1,000 ml @ 75 mls/hr [id number] IV Last administered on 04/07/17 10:54; Start 03/13/17 at 11:30; Stop 04/07/17 at 13:42 ; Status DC Polyethylene Glycol/ Electrolytes (Colyte Liq) 4,000 ml ONCE ONCE PEG Last administered on 03/14/17 17:13; Start 03/14/17 at 16:00; Stop 03/14/17 at 16:01 ; Status DC Sodium Chloride 250 ml @ 15 mls/hr ONCE ONCE IV Last administered on 21:30; Start 03/13/17 at 20:00; Stop 03/14/17 at 12:39; Status DC Polyethylene Glycol/ Electrolytes (Colyte Liq) 4,000 ml ONCE ONCE PO Last administered on 03/15/17 17:19; Start 03/15/17 at 16:45; Stop 03/15/17 at 16:48 ; Status DC Propofol (Diprivan 200 Mg/20 ml Inj) 180 mg ONCE ONCE IV Last administered on 03/15/17 16:45; Start 03/15/17 at 16:43; Stop 03/15/17 at 16:45; Status DC Sodium Biphosphate/ Sodium Phosphate (Fleets Enema (Adult)) 133 ml ONCE ONCE RECTAL Last administered on 03/16/17 14:45; Start 03/16/17 at 14:15; Stop at 14:21; Status DC Sodium Biphosphate/ Sodium Phosphate (Fleets Enema (Adult)) 133 ml ONCE ONCE RECTAL Last administered on 03/17/17 09:49; Start 03/17/17 at 08:00; Stop at 08:01; Status DC Propofol (Diprivan 200 Mg/20 ml Inj) 100 mg ONCE ONCE IV PUSH ; Start at 15:00; Stop 03/16/17 at 15:01; Status DC Midazolam HCl (Versed Inj) 2 mg STK-MED ONCE .ROUTE ; Start 03/16/17 at 15:34; Stop 03/16/17 at 15:35; Status DC Vancomycin HCl (Vancomycin Inj) 1,000 mg STK-MED ONCE .ROUTE Last administered on 03/18/17 18:58; Start 03/18/17 at 18:15; Stop 03/18/17 at 18:16; Status DC Fentanyl Citrate (fentaNYL INJ) 200 mcg STK-MED ONCE .ROUTE ; Start 03/18/17 at 19:50; Stop 03/18/17 at 19:51; Status DC Methocarbamol (Robaxin) 500 mg Q8HR PO Last administered on 04/12/17 06:32; Start 03/19/17 at 14:00 Acetaminophen 100 ml @ As Directed STK-MED ONCE IV ; Start 03/24/17 at 09:21; Stop 03/24/17 at 09:22; Status DC Midazolam HCl (Versed Inj) 2 mg STK-MED ONCE .ROUTE ; Start 03/24/17 at 09:21; Stop 03/24/17 at 09:22; Status DC Fentanyl Citrate (fentaNYL INJ) 100 mcg STK-MED ONCE .ROUTE ; Start 03/24/17 at 09:21; Stop 03/24/17 at 09:22; Status DC Fentanyl Citrate (fentaNYL INJ) 100 mcg STK-MED ONCE .ROUTE ; Start 03/24/17 at 09:21; Stop 03/24/17 at 09:22; Status DC Hydromorphone HCl (*DILAUDID PF INJ PERIprocedural ONLY) 1 mg STK-MED ONCE .ROUTE Last administered on 03/24/17 14:53; Start 03/24/17 at 14:53; Stop at 14:54; Status DC Meperidine HCl (*DEMEROL INJ PERIprocedural ONLY) 25 mg STK-MED ONCE .ROUTE Last administered on 03/24/17 15:01; Start 03/24/17 at 15:01; Stop 03/24/17 at 15:02; Status DC Fentanyl Citrate (fentaNYL INJ) 400 mcg STK-MED ONCE .ROUTE ; Start 03/24/17 at 15:01; Stop 03/24/17 at 15:02; Status DC Miscellaneous Information ALL NURSING DEPARTME... UNSCH PRN .XX SEE LABEL COMMENTS; Start 03/24/17 at 14:52; Stop 03/25/17 at 14:51; Status DC Polyethylene Glycol (Miralax) 17 gm DAILY PO ; Start 03/24/17 at 16:30; Status Cancel Acetaminophen (Tylenol) 650 mg Q4H PRN PO fever Last administered on 03/25/17 10:02; Start 03/25/17 at 10:00 Piperacillin Sod/ Tazobactam Sod 100 ml @ 200 mls/hr Q8H IV Last administered on 03/29/17 12:36; Start 03/25/17 at 20:00; Stop 03/29/17 at 14:34; Status DC Furosemide (Lasix Inj) 10 mg ONCE ONCE IV PUSH Last administered on 03/26/17 13:47; Start 03/26/17 at 13:30; Stop 03/26/17 at 13:34; Status DC Furosemide (Lasix Inj) 10 mg UNSCH X1 IV PUSH Last administered on 03/27/17 01 :31; Start 03/26/17 at 17:15; Stop 03/26/17 at 23:59; Status DC Levothyroxine Sodium (Synthroid) 50 mcg DAILY@0600 PO Last administered on 04/12 06:32; Start 03/30/17 at 06:00 Levothyroxine Sodium (Synthroid) 50 mcg ONCE ONCE PO Last administered on 12:55; Start 03/29/17 at 12:00; Stop 03/29/17 at 12:02; Status DC Levofloxacin (Levaquin) 500 mg DAILY PO Last administered on 9/13/17at 08:46; Start 03/29/17 at 14:45; Stop 04/07/17 at 14:44; Status DC Propofol (Diprivan 200 Mg/20 ml Inj) 200 mg STK-MED ONCE IV ; Start 02/26/17 at 12:00; Stop 03/30/17 at 13:17; Status DC Neostigmine Methylsulfate (Prostigmin Inj) 3 mg STK-MED ONCE IV ; Start 02/26/17 at 12:00; Stop 03/30/17 at 13:17; Status DC Phenylephrine HCl (Neosynephrine/ NS 1000 Mcg/10ml Syr) 1,000 mcg STK-MED ONCE IV ; Start 02/26/17 at 12:00; Stop 03/30/17 at 13:17; Status DC Lactated Ringer's 2,000 ml @ As Directed STK-MED ONCE IV ; Start 02/26/17 at 12: 00; Stop 03/30/17 at 13:17; Status DC Propofol (Diprivan 200 Mg/20 ml Inj) 200 mg STK-MED ONCE IV ; Start 02/28/17 at 12:00; Stop 03/30/17 at 13:46; Status DC Neostigmine Methylsulfate (Prostigmin Inj) 3 mg STK-MED ONCE IV ; Start 02/28/17 at 12:00; Stop 03/30/17 at 13:46; Status DC Lactated Ringer's 2,000 ml @ As Directed STK-MED ONCE IV ; Start 02/28/17 at 12: 00; Stop 03/30/17 at 13:46; Status DC Propofol (Diprivan 200 Mg/20 ml Inj) 400 mg STK-MED ONCE IV ; Start 03/04/17 at 12:00; Stop 03/30/17 at 14:07; Status DC Ephedrine Sulfate (ePHEDrine/NS 25 MG/5 ML SYR) 25 mg STK-MED ONCE IV ; Start at 12:00; Stop 03/30/17 at 14:07; Status DC Phenylephrine HCl (Neosynephrine/ NS 1000 Mcg/10ml Syr) 2,000 mcg STK-MED ONCE IV ; Start 03/04/17 at 12:00; Stop 03/30/17 at 14:08; Status DC Ondansetron HCl (Zofran Inj) 4 mg STK-MED ONCE IV PUSH ; Start 03/04/17 at 12:00 ; Stop 03/30/17 at 14:08; Status DC Propofol (Diprivan 200 Mg/20 ml Inj) 200 mg STK-MED ONCE IV ; Start 03/08/17 at 12:00; Stop 03/30/17 at 14:49; Status DC Ephedrine Sulfate (ePHEDrine/NS 25 MG/5 ML SYR) 50 mg STK-MED ONCE IV ; Start at 12:00; Stop 03/30/17 at 14:49; Status DC Neostigmine Methylsulfate (Prostigmin Inj) 4 mg STK-MED ONCE IV ; Start at 12:00; Stop 03/30/17 at 14:49; Status DC Phenylephrine HCl (Neosynephrine/ NS 1000 Mcg/10ml Syr) 1,000 mcg STK-MED ONCE IV ; Start 03/08/17 at 12:00; Stop 03/30/17 at 14:49; Status DC Ondansetron HCl (Zofran Inj) 4 mg STK-MED ONCE IV PUSH ; Start 03/08/17 at 12:00 ; Stop 03/30/17 at 14:49; Status DC Lactated Ringer's 1,000 ml @ As Directed STK-MED ONCE IV ; Start 03/08/17 at 12 :00; Stop 03/30/17 at 14:49; Status DC Propofol (Diprivan 200 Mg/20 ml Inj) 200 mg STK-MED ONCE IV ; Start 03/10/17 at 12:00; Stop 03/30/17 at 15:08; Status DC Ephedrine Sulfate (ePHEDrine/NS 25 MG/5 ML SYR) 25 mg STK-MED ONCE IV ; Start at 12:00; Stop 03/30/17 at 15:08; Status DC Neostigmine Methylsulfate (Prostigmin Inj) 3 mg STK-MED ONCE IV ; Start at 12:00; Stop 03/30/17 at 15:08; Status DC Phenylephrine HCl (Neosynephrine/ NS 1000 Mcg/10ml Syr) 2,000 mcg STK-MED ONCE IV ; Start 03/10/17 at 12:00; Stop 03/30/17 at 15:08; Status DC Ondansetron HCl (Zofran Inj) 4 mg STK-MED ONCE IV PUSH ; Start 03/10/17 at 12:00 ; Stop 03/30/17 at 15:08; Status DC Lactated Ringer's 1,000 ml @ As Directed STK-MED ONCE IV ; Start 03/10/17 at 12 :00; Stop 03/30/17 at 15:08; Status DC Sodium Chloride 1,000 ml @ As Directed STK-MED ONCE IV ; Start 03/10/17 at 12: 00; Stop 03/30/17 at 15:08; Status DC Propofol (Diprivan 200 Mg/20 ml Inj) 200 mg STK-MED ONCE IV ; Start 03/12/17 at 12:00; Stop 03/30/17 at 15:20; Status DC Ephedrine Sulfate (ePHEDrine/NS 25 MG/5 ML SYR) 25 mg STK-MED ONCE IV ; Start at 12:00; Stop 03/30/17 at 15:20; Status DC Phenylephrine HCl (Neosynephrine/ NS 1000 Mcg/10ml Syr) 1,000 mcg STK-MED ONCE IV ; Start 03/12/17 at 12:00; Stop 03/30/17 at 15:20; Status DC Ondansetron HCl (Zofran Inj) 4 mg STK-MED ONCE IV PUSH ; Start 03/12/17 at 12:00 ; Stop 03/30/17 at 15:20; Status DC Lactated Ringer's 1,000 ml @ As Directed STK-MED ONCE IV ; Start 03/12/17 at 12 :00; Stop 03/30/17 at 15:20; Status DC Propofol (Diprivan 200 Mg/20 ml Inj) 200 mg STK-MED ONCE IV ; Start 03/18/17 at 12:00; Stop 03/30/17 at 15:38; Status DC Ondansetron HCl (Zofran Inj) 4 mg STK-MED ONCE IV PUSH ; Start 03/18/17 at 12:00 ; Stop 03/30/17 at 15:38; Status DC Neostigmine Methylsulfate (Prostigmin Inj) 3 mg STK-MED ONCE IV ; Start at 12:00; Stop 03/30/17 at 15:38; Status DC Phenylephrine HCl (Neosynephrine/ NS 1000 Mcg/10ml Syr) 1,000 mcg STK-MED ONCE IV ; Start 03/18/17 at 12:00; Stop 03/30/17 at 15:38; Status DC Oxycodone/ Acetaminophen (Percocet 5-325 Mg) 1 tab Q4H PRN PO pain 3 to 5; Start 04/02/17 at 13:00; Stop 04/09/17 at 17:08; Status DC Oxycodone/ Acetaminophen (Percocet 10-325 Mg) 1 tab Q4H PRN PO pain 6-10 Last administered on 04/09/17 14:14; Start 04/02/17 at 13:00; Stop 04/09/17 at 17:08 ; Status DC Magnesium Sulfate/ Dextrose 100 ml @ 100 mls/hr Q1H IV Last administered on 16:15; Start 04/03/17 at 14:00; Stop 04/03/17 at 15:59; Status DC Sodium Chloride (Sodium Chloride) 1 gm TID PO Last administered on 04/07/17 13 :24; Start 04/04/17 at 14:00; Stop 04/07/17 at 13:45; Status DC Calcium Chloride 2 gm/Sodium Chloride 120 ml @ 120 mls/hr ONCE ONCE IV Last administered on 04/04/17 15:45; Start 04/04/17 at 14:00; Stop 04/04/17 at 14:59 ; Status DC Hydromorphone HCl (Dilaudid Pf Inj) 0.2 mg Q6H PRN IV PUSH breakthrough pain Last administered on 04/10/17 20:54; Start 04/09/17 at 17:15 Acetaminophen/ Hydrocodone Bitart (Anderson 7.5-325 Mg) 1 tab Q4H PRN PO PAIN 6- 10 Last administered on 04/12/17 10:02; Start 04/09/17 at 17:15 Acetaminophen/ Hydrocodone Bitart (Anderson 5-325 Mg) 1 tab Q4H PRN PO PAIN 3-5; Start 04/09/17 at 17:15 Tolvaptan (Samsca) 15 mg ONCE ONCE PO Last administered on 04/09/17 22:49; Start 04/09/17 at 19:30; Stop 04/09/17 at 19:32; Status DC Carvedilol (Coreg) 6.25 mg Q12HR PO Last administered on 04/12/17 09:53; Start 04/10/17 at 09:00 Clonidine (Catapres) 0.2 mg Q8H PO Last administered on 04/12/17 03:57; Start 04/10/17 at 20:00 A/P Assessment and Plan Hyponatremia-resolved. patient recived Tolvaptan- nephrology following. 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 distant showering of emboli to other joints. MRSA bacteremia Right ankle hardware infection, s/p partial removal of hardware. Deeper hardware embedded. SP RIGHT BKA Bilateral UE hand abscess and tenosynovitis, septic arthritis s.p multiple debridements. Antibiotic per ID Plan for long-term IV antibiotics, rifampin for 6 weeks Likely will need senior care facility placement Continue pain control. Hand surgeon following ID following ortho surgery following. Multiple surgeries thus far: - podiatry Dr. Reyes/Dr. Gamez on 02/26, 02/28, 03/04 - hand surgeon Dr. Bullock on 02/26, 02/28, 03/04, 03/08, 03/10 -right BKA Anemia Follow CBC Status post blood transfusion Acute Toxic/Metabolic Encephalopathy secondary to Sepsis-improved. Acute Alcohol Withdrawal - improved Hypertension Continue clonidine and Coreg, cardiology initiate low dose lisinopril, monitor renal function Follow blood pressures Adjust as needed for control Mild Systolic CHF Scrotal edema EF of 40-45% with global hypokinesis found on 02/28/17 Continue beta amarjit HYPOTHYROIDISM continue synthroid THADDEUS mostly vanco induced - resolved Monitor renal function Avoid nephrotoxins Previous event was likely secondary to ATN Nephrology following Hepatitis C- f/u as outpatient. Standard precautions DVT Prophylaxis Lovenox Discharge Planning d/w the case management; has to stay inpatient while receiving IV antibiotics. Flaca Houser MD Apr 12, 2017 11:09
[2017-04-12 12:00] VITALS: BP 137/72; PULSE 70; RESP 20; TEMP 98.2; O2SAT 96
[2017-04-12] MEDS: DAPTOMYCIN IV SCH (14:41)
[2017-04-12] MEDS: SODIUM CHLORIDE 0.9% IV SCH (14:41)
[2017-04-12] MEDS: ENOXAPARIN SODIUM 40 MG/0.4 ML SYRINGE SQ SCH (14:42)
[2017-04-12 16:00] VITALS: BP 144/81; PULSE 64; RESP 20; TEMP 98.3; O2SAT 98
--- NOTE | 2017-04-12 18:14 | HHI.IDPN ---
Subjective Subjective Remarks is a 61 y/o CM with PMHx of right foot hardware, hypertension, alcoholism, Hepatitis C who was admitted with sepsis, acute metabolic encephalopathy ? DTs. Removal of hardware from r. ankle 02/27. Noted to have a pocket of pus adjacent to and in contact with the hardware. Could not remove all of hardware. Subsequently underwent BKA of right leg. Culture form both index fingers has MRSA. R ankle culture - and distal fibula 02/26, 02/28 MRSA. Blood culture 02/24, 02/25, 02/27 - MRSA. 2D ECHO - No vegetations noted. Overnight events reviewed. No fevers No rash No diarrhea Wild cath changed placed on 03/17/17. Antibiotics Dapto IV Lines Line sites with no e.o infection Past Medical History hypertension alcoholism Hepatitis C right foot surgery with hardware in place. right AKA Allergies: Coded Allergies: ciprofloxacin (Unverified Adverse Reaction, Intermediate, Dizziness, ) *MDRO Multi-Drug Resistant Organism (Verified Adverse Reaction, Unknown, ) MRSA (blood)+(urine) 02/24/17, (blood) 02/25/17, 02/27/17 (finger,ankle,leg) 02/26/17, 02/28/17 MRSA PCR screen positive 02/25/17 Objective . Vital Signs Date Time Temp Pulse Resp B/P (MAP) Pulse Ox O2 Delivery O2 Flow Rate FiO2 04/12/17 08:00 98.4 60 20 133/67 (89) 98 04/12/17 04:00 98.0 63 16 134/65 (88) 96 04/12/17 00:00 98.3 57 14 120/67 (84) 99 04/11/17 21:00 Room Air 04/11/17 20:00 97.4 67 12 158/77 (104) 97 04/11/17 18:31 18 . Laboratory Tests Test 04/10/17 21:26 04/11/17 08:37 04/12/17 07:22 Blood Urea Nitrogen 13 MG/DL 11 MG/DL 13 MG/DL Creatinine 0.60 MG/DL 0.63 MG/DL 0.61 MG/DL Random Glucose 104 MG/DL 122 MG/DL 96 MG/DL Calcium Level 8.8 MG/DL 9.2 MG/DL 8.4 MG/DL Sodium Level 137 MEQ/L 140 MEQ/L 136 MEQ/L Potassium Level 3.9 MEQ/L 3.9 MEQ/L 4.1 MEQ/L Chloride Level 103 MEQ/L 105 MEQ/L 101 MEQ/L Carbon Dioxide Level 27.4 MEQ/L 28.2 MEQ/L 28.8 MEQ/L Anion Gap 7 MEQ/L 7 MEQ/L 6 MEQ/L Estimat Glomerular Filtration Rate 136 ML/MIN 129 ML/MIN 134 ML/MIN Total Creatine Kinase 124 U/L Total Protein 6.3 GM/DL Albumin 1.7 GM/DL Alkaline Phosphatase 96 U/L Aspartate Amino Transf (AST/SGOT) 28 U/L Alanine Aminotransferase (ALT/SGPT) 26 U/L Total Bilirubin 0.2 MG/DL Imaging Last Impressions Chest X-Ray 03/02/17 0000 Signed Impressions: Service Date/Time: Thursday, March 02, 2017 13:26 - CONCLUSION: Interval develop of a small left-sided pleural effusion. Pulmonary venous congestion. Edenilson Oviedo MD Lower Extremity CT 03/01/17 0000 Signed Impressions: Service Date/Time: Wednesday, March 01, 2017 11:12 - CONCLUSION: 1. No evidence of organized fluid collections to suggest an abscess. 2. Extensive soft tissue swelling surrounding the ankle and extending to the forefoot especially along the lateral aspect. 3. No erosive or destructive bone changes. 4. Bone defects compatible with previous excision device. Blake Rider MD Ankle X-Ray 02/26/17 0000 Signed Impressions: Service Date/Time: Sunday, February 26, 2017 17:15 - CONCLUSION: I see no retained surgical instruments. Isaac Stevenson MD FACR Abdomen X-Ray 02/26/17 0000 Signed Impressions: Service Date/Time: Monday, February 27, 2017 00:36 - CONCLUSION: Nasogastric tube within the stomach Harry Lucio MD Upper Extremity Ultrasound 02/25/17 1734 Signed Impressions: Service Date/Time: February 17:54 - CONCLUSION: There is a thin fluid collection within the focal area of soft tissue swelling 2nd digit. Oscar Cassidy MD Hand X-Ray 02/25/17 0000 Signed Impressions: Service Date/Time: February 18:59 - CONCLUSION: No gross bony abnormality. Oscar Cassidy MD Lower Extremity Ultrasound 02/24/17 0000 Signed Impressions: Service Date/Time: Friday, February 24, 2017 13:41 - CONCLUSION: Negative for deep venous thrombosis. Isaac Stevenson MD FACR Head CT 02/24/17 0000 Signed Impressions: Service Date/Time: Friday, February 24, 2017 16:08 - CONCLUSION: 1. No acute intracranial abnormality. 2. Probable large mucocele in the sphenoid sinus. Ty Hankins MD Abdomen/Pelvis CT 02/24/17 0000 Signed Impressions: Service Date/Time: Friday, February 24, 2017 16:16 - CONCLUSION: 1. Marked gaseous distension of large and small bowel most suggestive of ileus. 2. There is no free air. 3. 2.2 cm left adrenal mass. 4. Distended bladder. Isaac Stevenson MD FACR Physical Exam GENERAL: This is a well-nourished, well-developed patient, in no apparent distress. SKIN: No rashes, ecchymoses or lesions. Cool and dry. HEAD: Atraumatic. Normocephalic. No temporal or scalp tenderness. EYES: Pupils equal round and reactive. Extraocular motions intact. No scleral icterus. No injection or drainage. ENT: Nose without bleeding, purulent drainage or septal hematoma. Throat without erythema, tonsillar hypertrophy or exudate. Uvula midline. Airway patent. NECK: Trachea midline. Supple, nontender, no meningeal signs. CARDIOVASCULAR: Regular rate and rhythm without murmurs, gallops, or rubs. RESPIRATORY: Clear to auscultation. Breath sounds equal bilaterally. No wheezes , rales, or rhonchi. GASTROINTESTINAL: Abdomen soft, non-tender, nondistended. MUSCULOSKELETAL: Rt BKA site in dressing. Right hand in dressing. zahraa Bashir NEUROLOGICAL: Awake, grossly non focal. 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 distant showering of emboli to other joints. MRSA bacteremia Right ankle hardware infection, s/p partial removal of hardware. Deeper hardware embedded. Bilateral UE hand abscess and tenosynovitis, septic arthritis s.p multiple debridements. Cath associated UTI. s/p wild change 03/26/17. GNR in urine. Acute renal failure: ? vanco induced. Improving. hypertension alcoholism Hepatitis C Recs Continue Dapto IV (ASP: ? Vanco induced renal failure). d/w Clinical pharmacist to dose at 8 mg/kg IV q48hrs.Tentative stop date 04/24/2017 but also depends on clinical follow up. Please call me in last week for follow up clinical exam. Check CBC with diff, Cr, LFTs and CRP every week. To be ordered and followed by hospitalist. Follow cultures Follow clinically. Sunshine Keene MD Apr 12, 2017 18:14
[2017-04-12 20:00] VITALS: BP 133/70; PULSE 65; RESP 20; TEMP 98; O2SAT 98
--- NOTE | 2017-04-12 20:03 | HHI.NPPN ---
Subjective History of Present Illness 61 year old male with past medical history of hypertension, history of being homeless. He was admitted on February 25 with altered mental status and leukocytosis. I was called to see the patient because of elevated BUN and creatinine. Additional Remarks Patient has Rt. BKA done, on fluid restriction, asking for more fluid intake. Objective Data Data 04/12/17 04/13/17 19:00 07:00 Intake Total 840 ml Output Total 1375 ml Balance -535 ml Intake Oral 840 ml Output Urine Total 1375 ml # Bowel Movements 0 Vital Signs Date Time Temp Pulse Resp B/P (MAP) Pulse Ox O2 Delivery O2 Flow Rate FiO2 04/12/17 16:00 98.3 64 20 144/81 (102) 98 04/12/17 12:00 98.2 70 20 137/72 (93) 96 04/12/17 08:00 98.4 60 20 133/67 (89) 98 04/12/17 04:00 98.0 63 16 134/65 (88) 96 04/12/17 00:00 98.3 57 14 120/67 (84) 99 04/11/17 21:00 Room Air -: 04/12/17 0722 Physical Exam General Appearance: No Acute Distress, Anxious Eyes Eye Exam: Pupils Equal Throat Throat Exam: Oral Mucosa Peridot & Moist Neck Neck Exam: Neck Supple Pulmonary Resp Exam: Breath Sounds Equal, No Distress, Rhonchi, Decreased Bases Cardiology CV Exam: Regular, Normal Sinus Rhythm Gastrointestinal/Abdomen GI Exam: Soft, Non-Tender, Bowel Sounds Present Extremeties Extremities Exam: Trace Edema Neurologic Neuro Exam: Alert, Awake Assessment/Plan Assessment Summary: THADDEUS/Acute Renal Failure Problem List: (1) Encephalopathy ICD Codes: G93.40 - Encephalopathy, unspecified Status: Acute (2) Essential hypertension ICD Codes: I10 - Essential (primary) hypertension Status: Acute (3) Hepatitis C, chronic ICD Codes: B18.2 - Chronic viral hepatitis C Status: Chronic (4) Abscess of right hand including fingers ICD Codes: L02.511 - Cutaneous abscess of right hand Status: Chronic (5) Abscess of left hand including fingers ICD Codes: L02.512 - Cutaneous abscess of left hand Status: Chronic (6) Alcoholism ICD Codes: F10.20 - Alcohol dependence, uncomplicated Status: Chronic (7) CHF (congestive heart failure) ICD Codes: I50.9 - Heart failure, unspecified Status: Acute (8) Sepsis ICD Codes: A41.9 - Sepsis, unspecified organism Status: Acute (9) ARF (acute renal failure) ICD Codes: N17.9 - Acute kidney failure, unspecified Status: Acute Plan Patient has Acute kidney injury and Creatinine now normalized. Na. is better and stable. Need to continue fluid restriction. Urine osmolality is high, possibly has SIADH. Got one dose of Samsca on 04/09. I will sign off from Nephrology. Patient will need to continue fluid restriction. Problem Qualifiers (1) Sepsis: Diane Barker MD Apr 12, 2017 20:03
[2017-04-13] VITALS: BP 119/65; PULSE 65; RESP 19; TEMP 97.9; O2SAT 96
[2017-04-13] MEDS: ACETAMINOPHEN/HYDROcodone 325 MG/7.5 MG TAB PO PRN ×6 (00:13→21:17)
[2017-04-13] MEDS: PANTOPRAZOLE SODIUM 40 MG VIAL IV PUSH SCH (00:20)
[2017-04-13] MEDS: HYDROmorphone HCL PF 1 MG/ML VIAL IV PUSH PRN (03:27)
[2017-04-13 04:00] VITALS: BP 135/79; PULSE 62; RESP 20; TEMP 97.1; O2SAT 96
[2017-04-13] MEDS: METHOCARBAMOL 500 MG TAB PO SCH ×3 (04:44→20:25)
[2017-04-13] MEDS: LEVOTHYROXINE SODIUM 50 MCG TAB PO SCH (04:44)
[2017-04-13] MEDS: cloNIDine HCL 0.2 MG TAB PO SCH ×3 (04:46→20:24)
[2017-04-13 08:00] VITALS: BP 133/65; PULSE 63; RESP 20; TEMP 98.1; O2SAT 97
[2017-04-13] MEDS: MUPIROCIN 2% OINT 1 APPLIC/GM SYR NASAL SCH ×2 (08:49→20:25)
[2017-04-13] MEDS: LISINOPRIL 5 MG TAB PO SCH (08:49)
[2017-04-13] MEDS: MULTIVITAMIN TAB PO SCH (08:50)
[2017-04-13] MEDS: CARVEDILOL 6.25 MG TAB PO SCH ×2 (08:50→20:24)
[2017-04-13] MEDS: THIAMINE HCL 100 MG TAB PO SCH (09:00)
--- NOTE | 2017-04-13 09:39 | HHI.PR ---
Subjective Remarks in no acute distress. has some back pain. no fever. no new complaints. Objective Vitals Vital Signs Date Time Temp Pulse Resp B/P (MAP) Pulse Ox O2 Delivery O2 Flow Rate FiO2 04/13/17 04:00 97.1 62 20 135/79 (97) 96 04/13/17 00:00 97.9 65 19 119/65 (83) 96 04/12/17 20:00 98.0 65 20 133/70 (91) 98 04/12/17 20:00 Room Air 04/12/17 16:00 98.3 64 20 144/81 (102) 98 04/12/17 12:00 98.2 70 20 137/72 (93) 96 I/O 04/12/17 04/12/17 04/12/17 04/13/17 04/13/17 04/13/17 07:00 15:00 23:00 07:00 15:00 23:00 Intake Total 1080 ml 120 ml Output Total 1800 ml 2075 ml 1300 ml Balance -1800 ml -995 ml -1180 ml Intake Oral 1080 ml 120 ml Output Urine Total 1800 ml 2075 ml 1300 ml Bladder Scan Volume Amount 499 ml # Bowel Movements 0 0 Result Diagram: 04/12/17 0722 Imaging Last Impressions Chest X-Ray 03/29/17 0000 Signed Impressions: Service Date/Time: Wednesday, March 29, 2017 12:17 - CONCLUSION: Stable chest. Isaac Stevenson MD FACR Tumor Localization 03/22/17 0000 Signed Impressions: Service Date/Time: Wednesday, March 22, 2017 13:03 - CONCLUSION: Nondiagnostic examination secondary to patient refusal Harry Lucio MD Abdomen X-Ray 03/08/17 0000 Signed Impressions: Service Date/Time: Wednesday, March 08, 2017 10:30 - CONCLUSION: Nonspecific, negative for obstruction or ileus. Isaac Stevenson MD FACR Lower Extremity CT 03/01/17 0000 Signed Impressions: Service Date/Time: Wednesday, March 01, 2017 11:12 - CONCLUSION: 1. No evidence of organized fluid collections to suggest an abscess. 2. Extensive soft tissue swelling surrounding the ankle and extending to the forefoot especially along the lateral aspect. 3. No erosive or destructive bone changes. 4. Bone defects compatible with previous excision device. Blake Rider MD Ankle X-Ray 02/26/17 0000 Signed Impressions: Service Date/Time: Sunday, February 26, 2017 17:15 - CONCLUSION: I see no retained surgical instruments. Isaac Stevenson MD FACR Upper Extremity Ultrasound 02/25/17 1734 Signed Impressions: Service Date/Time: February 17:54 - CONCLUSION: There is a thin fluid collection within the focal area of soft tissue swelling 2nd digit. Oscar Cassidy MD Hand X-Ray 02/25/17 0000 Signed Impressions: Service Date/Time: February 18:59 - CONCLUSION: No gross bony abnormality. Oscar Cassidy MD Lower Extremity Ultrasound 02/24/17 0000 Signed Impressions: Service Date/Time: Friday, February 24, 2017 13:41 - CONCLUSION: Negative for deep venous thrombosis. Isaac Stevenson MD FACR Head CT 02/24/17 0000 Signed Impressions: Service Date/Time: Friday, February 24, 2017 16:08 - CONCLUSION: 1. No acute intracranial abnormality. 2. Probable large mucocele in the sphenoid sinus. Ty Hankins MD Abdomen/Pelvis CT 02/24/17 0000 Signed Impressions: Service Date/Time: Friday, February 24, 2017 16:16 - CONCLUSION: 1. Marked gaseous distension of large and small bowel most suggestive of ileus. 2. There is no free air. 3. 2.2 cm left adrenal mass. 4. Distended bladder. Isaac Stevenson MD FACR Objective Remarks GENERAL: This is a well-nourished, well-developed patient, in no apparent distress. CARDIOVASCULAR: Regular rate and regular rhythm without murmurs, gallops, or rubs. RESPIRATORY: Clear to auscultation. Breath sounds equal bilaterally. No wheezes , rales, or rhonchi. GASTROINTESTINAL: Abdomen soft, non-tender, nondistended. Normal, active bowel sounds MUSCULOSKELETAL: right forearm covered with clean dressing- s/p right BKA NEURO: Alert & Oriented x4 to person, place, time, situation. Moves all ext x4 Procedures 03/10/2017 - Dr. Bullock exploration, wash, excisional debridement extensor tenosynovium right wrist/forearm/hand 03/08/17 - Dr. Bullock- exploration, wash, excisional debridement skin, subcutaneous tissue, extensor tenosynovitis right wrist and hand. Findings: necrotic tissue, minimal purulence, extensor tenosynovitis right wrist/hand 03/04/17 - Dr Gamez - Right leg and incision and drainage. Right foot delayed primary closure x3 03/04/17 - Dr. Bullock - Extensor tenosynovectomy second, third, fourth extensor compartments right wrist and excisional debridement wash index finger metacarpal phalangeal joint, excisional wash and excisional debridement left hand. 02/28/17 - Dr. Reyes - Right ankle wound debridement and washout. Implantation of antibiotic vancomycin beads. 02/28/17 - Dr. Bullock - Exploration, wash, excisional debridement index finger metacarpophalangeal joint right hand; Exploration, wash, excisional debridement metacarpophalangeal joint left index finger; Exploration, wash, excisional debridement extensor pollicis longus tendon right thumb and hand. 02/26/17 - Dr. Reyes - Right ankle incision and drainage, arthrotomy, removal infected hardware, bone biopsy. 02/26/17 - Dr. Bullock - Exploration, incision and drainage right hand abscess, Arthrotomy wash metacarpal phalangeal joint right index finger, Arthrotomy wash metacarpal phalangeal joint left index finger. Medications and IVs Current Medications Sodium Chloride 1,000 ml @ 999 mls/hr BOLUS ONCE IV Last administered on 13:38; Start 02/24/17 at 13:45; Stop 02/24/17 at 14:45; Status DC IV Flush (NS Flush) 2 ml UNSCH PRN IV FLUSH FLUSH AFTER USING IV ACCESS Last administered on 02/24/17 13:38; Start 02/24/17 at 13:45 Vancomycin HCl 1000 mg/Sodium Chloride 250 ml @ 250 mls/hr ONCE STAT IV Last administered on 02/24/17 15:49; Start 02/24/17 at 15:35; Stop 02/24/17 at 16:34; Status DC Cefepime HCl 2000 mg/Sodium Chloride 100 ml @ 200 mls/hr ONCE STAT IV Last administered on 02/24/17 16:36; Start 02/24/17 at 15:35; Stop 02/24/17 at 16:04; Status DC Potassium Bicarb/ Potassium Chloride (K-Lyte Cl Eff) 50 meq ONCE ONCE PO Last administered on 02/24/17 15:56; Start 02/24/17 at 16:00; Stop 02/24/17 at 16: 01; Status DC Iohexol (Omnipaque 350 Inj) 97 ml STK-MED ONCE IV Last administered on 16:29; Start 02/24/17 at 16:29; Stop 02/24/17 at 16:30; Status DC Sodium Chloride 1,000 ml @ 125 mls/hr Q8H IV Last administered on 03/02/17 09: 33; Start 02/24/17 at 18:00; Stop 03/02/17 at 13:08; Status DC Ondansetron HCl (Zofran Inj) 4 mg Q8HR PRN IV PUSH NAUSEA; Start 02/24/17 at 18: 00 Thiamine HCl (Vitamin B1) 100 mg ONCE ONCE PO Last administered on 02/24/17 20 :20; Start 02/24/17 at 20:15; Stop 02/24/17 at 20:16; Status DC Thiamine HCl (Vitamin B1) 100 mg DAILY PO Last administered on 04/12/17 09:52 ; Start 02/25/17 at 09:00 Potassium Chloride 100 ml @ 50 mls/hr Q2H IV Last administered on 02/24/17 22: 59; Start 02/24/17 at 20:30; Stop 02/25/17 at 00:29; Status DC Pharmacy Profile Note 0 ml @ 0 mls/hr UNSCH OTHER ; Start 02/24/17 at 20:15; Stop 03/02/17 at 13:23; Status DC Cefepime HCl 2000 mg/Sodium Chloride 100 ml @ 200 mls/hr Q12H IV Last administered on 02/27/17 05:51; Start 02/25/17 at 07:00; Stop 02/27/17 at 14:53; Status DC Vancomycin HCl 1500 mg/Sodium Chloride 515 ml @ 257.5 mls/ hr Q18H IV Last administered on 02/25/17 10:30; Start 02/25/17 at 10:00; Stop 02/25/17 at 11:30; Status DC Miscellaneous Information SPECIFIC LAB TO BE DRAWN:[facility]ANCO TROUGH DATE TO BE DRLaurence.. ONCE ONCE .XX ; Start 02/26/17 at 21:45; Stop 02/26/17 at 21:46; Status DC Flumazenil (Romazicon Inj) 0.2 mg Q1M PRN IV PUSH SEE LABEL COMMENTS; Start 02/25/17 at 09:15 Lorazepam (Ativan) 1 mg Q4H PRN PO agitation Last administered on 03/20/17 03: 18; Start 02/25/17 at 09:15 Lorazepam (Ativan Inj) 1 mg Q4H PRN IV PUSH agitation when not taking po Last administered on 03/05/17 02:41; Start 02/25/17 at 09:15 Lorazepam (Ativan) 2 mg Q2H PRN PO CIWA 11-14; Start 02/25/17 at 09:15; Stop 02/28/17 at 07:44; Status DC Lorazepam (Ativan Inj) 2 mg Q2H PRN IV PUSH CIWA 11-14 Last administered on 02/26 18:14; Start 02/25/17 at 09:15; Stop 02/28/17 at 07:44; Status DC Lorazepam (Ativan Inj) 2 mg Q1H PRN IV PUSH CIWA 15-20 Last administered on 02/25 21:37; Start 02/25/17 at 09:15; Stop 02/28/17 at 07:44; Status DC Lorazepam (Ativan Inj) 2 mg Q15M PRN IV PUSH CIWA > 20 Last administered on 02/26 06:25; Start 02/25/17 at 09:15; Stop 02/28/17 at 07:44; Status DC Multivitamins (Theragran) 1 tab DAILY PO Last administered on 04/13/17 08:50; Start 02/26/17 at 09:00 Acetaminophen (Tylenol) 650 mg Q4H PRN PO FEVER Last administered on 03/07/17 04:47; Start 02/25/17 at 09:15; Stop 03/12/17 at 10:47; Status DC Lisinopril (Prinivil) 10 mg DAILY PO ; Start 02/26/17 at 09:00; Stop 03/08/17 at 21:09; Status DC Enoxaparin Sodium (Lovenox Inj) 40 mg Q24H SQ Last administered on 03/07/17 10 :00; Start 02/25/17 at 10:00; Stop 03/10/17 at 12:17; Status DC Vancomycin HCl 1500 mg/Sodium Chloride 515 ml @ 257.5 mls/ hr Q12H IV Last administered on 02/26/17 09:42; Start 02/25/17 at 22:00; Stop 02/26/17 at 12:06; Status DC Miscellaneous Information SPECIFIC LAB TO BE BIA... ONCE ONCE .XX Last administered on 02/26/17 09:45; Start 02/26/17 at 09:45; Stop 02/26/17 at 09:46; Status DC Chlordiazepoxide (Librium) 25 mg Q8H PO ; Start 02/25/17 at 17:00; Stop 02/25/17 at 20:24; Status DC Gentamicin Sulfate 70 mg/ Sodium Chloride 101.75 ml @ 100 mls/ hr ONCE ONCE IV Last administered on 02/25/17 18:51; Start 02/25/17 at 18:30; Stop 02/25/17 at 19:31; Status DC Dexmedetomidine HCl 200 mcg/ Sodium Chloride 52 ml @ 0 mls/hr TITRATE IV Last administered on 02/27/17 13:55; Start 02/25/17 at 17:30; Stop 03/09/17 at 23:34; Status DC Acetaminophen (Ofirmev Inj) 650 mg Q6H PRN IV TEMP >101 Last administered on 20:12; Start 02/25/17 at 21:00 Iohexol (Omnipaque 350 Inj) 75 ml STK-MED ONCE IV Last administered on 21:15; Start 02/25/17 at 21:15; Stop 02/25/17 at 21:16; Status DC Potassium Chloride 100 ml @ 50 mls/hr Q2H PRN IV For Potassium 2.8 - 3.2 mEq/L ; Start 02/25/17 at 22:45; Stop 03/01/17 at 23:53; Status DC Potassium Chloride 100 ml @ 50 mls/hr Q2H PRN IV For Potassium 2.8 - 3.2 mEq/ L Last administered on 02/28/17 12:32; Start 02/25/17 at 22:45; Stop 03/01/17 at 23:53; Status DC Potassium Bicarb/ Potassium Chloride (K-Lyte Cl Eff) 50 meq UNSCH PRN PO For Potassium 3.3 - 3.5 mEq/L; Start 02/25/17 at 22:45; Stop 03/01/17 at 23:53; Status DC Potassium Chloride 100 ml @ 25 mls/hr UNSCH PRN IV For Potassium 3.3 - 3.5 mEq /L; Start 02/25/17 at 22:45; Stop 03/01/17 at 23:53; Status DC Potassium Chloride 100 ml @ 50 mls/hr Q2H PRN IV For Potassium 3.3 - 3.5 mEq/ L Last administered on 02/28/17 06:39; Start 02/25/17 at 22:45; Stop 03/01/17 at 23:53; Status DC Magnesium Sulfate 4 gm/Sodium Chloride 100 ml @ 50 mls/hr UNSCH PRN IV For Magnesium 0.9 - 1.1 mg/dL; Start 02/25/17 at 22:45; Stop 03/01/17 at 23:53; Status DC Magnesium Oxide (Mag-Ox) 800 mg UNSCH PRN PO For Magnesium 1.2 - 1.6 mg/dL; Start 02/25/17 at 22:45; Stop 03/01/17 at 23:53; Status DC Magnesium Sulfate 2 gm/Sodium Chloride 100 ml @ 50 mls/hr UNSCH PRN IV For Magnesium 1.2 - 1.6 mg/dL; Start 02/25/17 at 22:45; Stop 03/01/17 at 23:53; Status DC Potassium Phosphate (K-Phos) 2,000 mg Q4H PRN PO For Phosphorus < 2.5 mg/dL; Start 02/25/17 at 22:45; Stop 03/01/17 at 23:53; Status DC Sodium Phosphate 30 mmol/Sodium Chloride 250 ml @ 42 mls/hr UNSCH PRN IV For Phosphorus < 2.5 mg/dL Last administered on 02/26/17 23:19; Start 02/25/17 at 22: 45; Stop 03/01/17 at 23:53; Status DC Potassium Phosphate (K-Phos) 2,000 mg UNSCH PRN PO/TUBE SEE LABEL COMMENTS; Start 02/25/17 at 22:45; Stop 03/01/17 at 23:53; Status DC Potassium Phosphate 30 mmol/ Sodium Chloride 260 ml @ 42 mls/hr UNSCH PRN IV SEE LABEL COMMENTS; Start 02/25/17 at 22:45; Stop 03/01/17 at 23:53; Status DC Labetalol HCl (Trandate Inj) 10 mg Q6H PRN IV PUSH SBP >165; Start 02/25/17 at 23:15 Pantoprazole Sodium (Protonix Inj) 40 mg Q24H IV PUSH Last administered on 04/13 00:20; Start 02/26/17 at 00:00 Miscellaneous Information Patient in critical care unit? Ass... [id number] .XX ; Start 02/26/17 at 07:15 Mupirocin (Bactroban Nasal 2% Oint) 1 applic BID NASAL Last administered on 08:49; Start 02/26/17 at 09:00 Chlorhexidine Gluconate (Chlorhexidine 2% Cloth) 3 pack DAILY@04 TOPICAL Last administered on 03/03/17 04:00; Start 02/27/17 at 04:00; Stop 03/03/17 at 04:01; Status DC Chlorhexidine Gluconate (Chlorhexidine 2% Cloth) 3 pack UNSCH PRN TOPICAL HYGIENIC CARE; Start 02/26/17 at 07:15; Stop 03/03/17 at 07:07; Status DC Lidocaine HCl (Xylocaine 2% Inj) 50 ml STK-MED ONCE .ROUTE ; Start 02/26/17 at 09 :35; Stop 02/26/17 at 09:36; Status DC Bupivacaine HCl (Marcaine Pf 0.5% Inj) 60 ml STK-MED ONCE .ROUTE ; Start at 09:35; Stop 02/26/17 at 09:36; Status DC Mupirocin (Bactroban 2% Oint) 22 applic STK-MED ONCE .ROUTE ; Start 02/26/17 at 09:35; Stop 02/26/17 at 09:36; Status DC Vancomycin HCl 1250 mg/Sodium Chloride 262.5 ml @ 250 mls/hr Q12H IV Last administered on 03/02/17 09:33; Start 02/26/17 at 22:00; Stop 03/02/17 at 13:23; Status DC Miscellaneous Information SPECIFIC LAB TO BE BIA... ONCE ONCE .XX Last administered on 02/27/17 22:46; Start 02/27/17 at 21:45; Stop 02/27/17 at 21:46; Status DC Neomycin/Polymyxin (Neosporin G.u. Irr) 3 ml STK-MED ONCE TOPICAL Last administered on 02/26/17 13:06; Start 02/26/17 at 13:06; Stop 02/26/17 at 16:26; Status DC Neomycin/Polymyxin (Neosporin G.u. Irr) 4 ml STK-MED ONCE TOPICAL Last administered on 02/26/17 15:47; Start 02/26/17 at 15:47; Stop 02/26/17 at 16:26; Status DC Fentanyl Citrate (fentaNYL INJ) 250 mcg STK-MED ONCE .ROUTE ; Start 02/26/17 at 18:16; Stop 02/26/17 at 18:17; Status DC Fentanyl Citrate (fentaNYL INJ) 100 mcg STK-MED ONCE .ROUTE ; Start 02/26/17 at 18:16; Stop 02/26/17 at 18:17; Status DC Miscellaneous Information ALL NURSING DEPARTME... UNSCH PRN .XX SEE LABEL COMMENTS; Start 02/26/17 at 17:57; Stop 02/27/17 at 17:56; Status DC Clonidine (Catapres) 0.3 mg Q8HR PO Last administered on 04/10/17 12:33; Start 02/26/17 at 22:11; Stop 04/10/17 at 12:52; Status DC Diazepam (Valium) 5 mg Taper DAILY PO Last administered on 03/06/17 09:49; Start 02/26/17 at 22:15; Stop 03/06/17 at 22:14; Status DC Water (Free Water) 200 ml Q8HR G-TUBE Last administered on 02/27/17 22:31; Start 02/27/17 at 06:55; Stop 02/28/17 at 07:41; Status DC Rifampin 300 mg/ Sodium Chloride 100 ml @ 100 mls/hr Q12H IV Last administered on 03/02/17 14:41; Start 02/27/17 at 15:00; Stop 03/02/17 at 16:41; Status DC Oxycodone HCl (Roxicodone) 5 mg Q4H PRN PO pain 1-5 Last administered on 09:26; Start 02/28/17 at 07:45; Stop 04/09/17 at 17:08; Status DC Hydromorphone HCl (Dilaudid Pf Inj) 0.5 mg Q3H PRN IV PUSH pain 6-10 or not taking po Last administered on 04/09/17 16:51; Start 02/28/17 at 07:45; Stop at 17:08; Status DC Water (Free Water) 300 ml Q4HR G-TUBE Last administered on 03/02/17 20:00; Start 02/28/17 at 08:00; Stop 03/02/17 at 23:07; Status DC Vancomycin HCl (Vancomycin Inj) 1,000 mg STK-MED ONCE .ROUTE Last administered on 02/28/17 09:01; Start 02/28/17 at 09:01; Stop 02/28/17 at 09:02; Status DC Vancomycin HCl (Vancomycin Inj) 1,000 mg STK-MED ONCE .ROUTE Last administered on 02/28/17 09:33; Start 02/28/17 at 09:33; Stop 02/28/17 at 09:34; Status DC Vancomycin HCl (Vancomycin Inj) 1,000 mg STK-MED ONCE .ROUTE Last administered on 02/28/17 09:36; Start 02/28/17 at 09:33; Stop 02/28/17 at 09:34; Status DC Daptomycin 450 mg/ Sodium Chloride 100 ml @ 200 mls/hr Q24H IV Last administered on 03/05/17 13:41; Start 02/28/17 at 12:00; Stop 03/05/17 at 18:00 ; Status DC Vancomycin HCl (Vancomycin Inj) 1,000 mg STK-MED ONCE .ROUTE Last administered on 02/28/17 10:45; Start 02/28/17 at 10:42; Stop 02/28/17 at 10:43; Status DC Vancomycin HCl (Vancomycin Inj) 500 mg STK-MED ONCE .ROUTE Last administered on 02/28/17 10:45; Start 02/28/17 at 10:42; Stop 02/28/17 at 10:43; Status DC Fentanyl Citrate (fentaNYL INJ) 250 mcg STK-MED ONCE .ROUTE ; Start 02/28/17 at 11:48; Stop 02/28/17 at 11:49; Status DC Miscellaneous Information ALL NURSING DEPARTME... UNSCH PRN .XX SEE LABEL COMMENTS; Start 02/28/17 at 11:33; Stop 03/01/17 at 11:32; Status DC Miscellaneous Information SPECIFIC LAB TO BE BIA... ONCE ONCE .XX ; Start 03/04 at 09:45; Stop 03/04/17 at 09:46; Status Cancel Sodium Chloride 1,000 ml @ 999 mls/hr BOLUS ONCE IV Last administered on 13:28; Start 03/02/17 at 13:15; Stop 03/02/17 at 14:15; Status DC Sodium Chloride 1,000 ml @ 125 mls/hr Q8H IV Last administered on 03/02/17 14: 18; Start 03/02/17 at 13:15; Stop 03/02/17 at 14:30; Status DC Rifampin (Rifampin) 300 mg Q12HR PO Last administered on 03/23/17 08:42; Start 03/02/17 at 21:00; Stop 03/23/17 at 18:40; Status DC Potassium Chloride 20 meq/ Sodium Chloride 38.5 meq/Sterile Water 1,010 ml @ 55 mls/hr [id number] IV Last administered on 03/09/17 22:51; Start 03/03/17 at 11: 00; Stop 03/09/17 at 23:36; Status DC Furosemide (Lasix Inj) 20 mg ONCE ONCE IV PUSH Last administered on 03/03/17 10:19; Start 03/03/17 at 09:30; Stop 03/03/17 at 09:43; Status DC Carvedilol (Coreg) 6.25 mg Q12HR PO Last administered on 04/09/17 08:40; Start 03/03/17 at 21:00; Stop 04/10/17 at 03:26; Status DC Vancomycin HCl (Vancomycin Inj) 1,000 mg STK-MED ONCE .ROUTE Last administered on 03/04/17 15:52; Start 03/04/17 at 15:10; Stop 03/04/17 at 15:11; Status DC Fentanyl Citrate (fentaNYL INJ) 100 mcg STK-MED ONCE .ROUTE ; Start 03/04/17 at 16:38; Stop 03/04/17 at 16:39; Status DC Fentanyl Citrate (fentaNYL INJ) 250 mcg STK-MED ONCE .ROUTE ; Start 03/04/17 at 16:38; Stop 03/04/17 at 16:39; Status DC Vancomycin HCl (Vancomycin Inj) 1,000 mg STK-MED ONCE .ROUTE Last administered on 03/04/17 16:52; Start 03/04/17 at 16:59; Stop 03/04/17 at 17:00; Status DC Fentanyl Citrate (fentaNYL INJ) 100 mcg STK-MED ONCE .ROUTE ; Start 03/04/17 at 18:24; Stop 03/04/17 at 18:25; Status DC Fentanyl Citrate (fentaNYL INJ) 250 mcg STK-MED ONCE .ROUTE ; Start 03/04/17 at 18:25; Stop 03/04/17 at 18:26; Status DC Miscellaneous Information ALL NURSING DEPARTME... UNSCH PRN .XX SEE LABEL COMMENTS; Start 03/04/17 at 19:15; Stop 03/05/17 at 19:14; Status DC Daptomycin 550 mg/ Sodium Chloride 100 ml @ 200 mls/hr Q24H IV Last administered on 04/12/17 14:41; Start 03/06/17 at 12:00 Bisacodyl (Dulcolax Supp) 10 mg DAILY PRN RECTAL SEVERE CONSITIPATION; Start at 21:00 Lactulose (Lactulose Liq) 30 ml DAILY PRN NG SEVERE CONSITIPATION Last administered on 03/07/17 18:45; Start 03/06/17 at 21:00 Docusate Sodium (Colace Liq) 100 mg Q12HR PO Last administered on 03/09/17 09: 30; Start 03/06/17 at 21:15; Status Future Hold Sodium Chloride 250 ml @ 15 mls/hr ONCE ONCE IV Last administered on 00:27; Start 03/07/17 at 19:00; Stop 03/08/17 at 12:06; Status DC Furosemide (Lasix Inj) 20 mg ONCE ONCE IV Last administered on 03/08/17t 03:49 ; Start 03/07/17 at 19:00; Stop 03/07/17 at 19:01; Status DC Polyethylene Glycol/ Electrolytes (Colyte Liq) 4,000 ml ONCE ONCE PO ; Start at 11:00; Stop 03/08/17 at 11:01; Status Cancel Mupirocin (Bactroban 2% Oint) 22 applic STK-MED ONCE .ROUTE ; Start 03/08/17 at 12:10; Stop 03/08/17 at 12:11; Status DC Lidocaine HCl (Xylocaine 2% Inj) 50 ml STK-MED ONCE .ROUTE ; Start 03/08/17 at 12:13; Stop 03/08/17 at 12:14; Status DC Bupivacaine HCl (Marcaine Pf 0.5% Inj) 30 ml STK-MED ONCE .ROUTE ; Start at 12:17; Stop 03/08/17 at 12:18; Status DC Famotidine (Pepcid Inj) 20 mg STK-MED ONCE .ROUTE ; Start 03/08/17 at 13:17; Stop 03/08/17 at 13:18; Status DC Vancomycin HCl (Vancomycin Inj) 1,000 mg STK-MED ONCE .ROUTE Last administered on 03/08/17t 14:35; Start 03/08/17 at 14:07; Stop 03/08/17 at 14:08; Status DC Sodium Chloride (Sodium Chloride 0.9% Inj) 20 ml STK-MED ONCE .ROUTE ; Start at 14:07; Stop 03/08/17 at 14:08; Status DC Vancomycin HCl (Vancomycin Inj) 1,000 mg STK-MED ONCE .ROUTE ; Start 03/08/17 at 14:42; Stop 03/08/17 at 14:43; Status DC Sodium Chloride (Sodium Chloride 0.9% Inj) 20 ml STK-MED ONCE .ROUTE ; Start at 14:42; Stop 03/08/17 at 14:43; Status DC Fentanyl Citrate (fentaNYL INJ) 500 mcg STK-MED ONCE .ROUTE ; Start 03/08/17 at 15:51; Stop 03/08/17 at 15:52; Status DC Miscellaneous Information ALL NURSING DEPARTME... UNSCH PRN .XX SEE LABEL COMMENTS; Start 03/08/17 at 15:40; Stop 03/09/17 at 15:39; Status DC Polyethylene Glycol/ Electrolytes (Colyte Liq) 4,000 ml ONCE ONCE NG Last administered on 03/08/17 22:42; Start 03/08/17 at 20:00; Stop 03/08/17 at 20:01 ; Status DC Lisinopril (Prinivil) 2.5 mg DAILY PO Last administered on 04/13/17 08:49; Start 03/09/17 at 09:00 Miscellaneous (Pill Splitter) 1 ea UNSCH PRN OTHER SEE LABEL COMMENTS; Start at 21:15 Dextrose 1,000 ml @ 84 mls/hr [id number] IV Last administered on 03/11/17 21:24 ; Start 03/09/17 at 23:45; Stop 03/11/17 at 23:38; Status DC Enoxaparin Sodium (Lovenox Inj) 40 mg Q24H SQ Last administered on 04/12/17 14 :42; Start 03/10/17 at 13:00; Status Future hold Bupivacaine HCl (Marcaine Pf 0.5% Inj) 30 ml STK-MED ONCE .ROUTE ; Start at 14:50; Stop 03/10/17 at 14:51; Status DC Lidocaine HCl (Xylocaine 2% Inj) 50 ml STK-MED ONCE .ROUTE ; Start 03/10/17 at 14:51; Stop 03/10/17 at 14:52; Status DC Bacitracin (Baciguent Oint) 15 applic STK-MED ONCE .ROUTE Last administered on 03/10/17 16:43; Start 03/10/17 at 14:51; Stop 03/10/17 at 14:52; Status DC Vancomycin HCl (Vancomycin Inj) 1,000 mg STK-MED ONCE .ROUTE Last administered on 03/10/17 15:49; Start 03/10/17 at 15:45; Stop 03/10/17 at 15:46; Status DC Sodium Chloride (Sodium Chloride 0.9% Inj) 20 ml STK-MED ONCE .ROUTE ; Start at 15:45; Stop 03/10/17 at 15:46; Status DC Neomycin/Polymyxin (Neosporin G.u. Irr) 2 ml STK-MED ONCE TOPICAL Last administered on 03/10/17 15:49; Start 03/10/17 at 15:49; Stop 03/10/17 at 15:59 ; Status DC Bacitracin (Baciguent Oint) 30 applic STK-MED ONCE .ROUTE Last administered on 03/10/17 16:44; Start 03/10/17 at 16:41; Stop 03/10/17 at 16:42; Status DC Hydromorphone HCl (Dilaudid Pf Inj) 2 mg STK-MED ONCE .ROUTE ; Start 03/10/17 at 16:47; Stop 03/10/17 at 16:48; Status DC Fentanyl Citrate (fentaNYL INJ) 250 mcg STK-MED ONCE .ROUTE ; Start 03/10/17 at 17:22; Stop 03/10/17 at 17:23; Status DC Morphine Sulfate (*morphine INJ PERIprocedure ONLY) 8 mg STK-MED ONCE .ROUTE Last administered on 03/10/17 18:12; Start 03/10/17 at 18:12; Stop 03/10/17 at 18:13; Status DC Miscellaneous Information ALL NURSING DEPARTME... UNSCH PRN .XX SEE LABEL COMMENTS; Start 03/10/17 at 14:30; Stop 03/11/17 at 14:29; Status DC Propofol (Diprivan 200 Mg/20 ml Inj) 200 mg STK-MED ONCE IV PUSH ; Start at 15:29; Stop 03/11/17 at 15:47; Status DC Oxybenzone/ Padimate O/ Dimethicone (Blistex Lip [place]) 4.25 applic STK-MED ONCE TOPICAL Last administered on 03/11/17 16:02; Start 03/11/17 at 16:02; Stop at 16:03; Status DC Miscellaneous Information ALL NURSING DEPARTME... UNSCH PRN .XX SEE LABEL COMMENTS; Start 03/11/17 at 16:00; Stop 03/12/17 at 15:59; Status DC Succinylcholine Chloride (Quelicin Inj) 200 mg STK-MED ONCE IV PUSH ; Start at 15:27; Stop 03/12/17 at 08:59; Status DC Sodium Chloride 250 ml @ 15 mls/hr ONCE ONCE IV Last administered on 10:15; Start 03/12/17 at 10:15; Stop 03/13/17 at 02:54; Status DC Acetaminophen (Tylenol) 650 mg Q4H PRN PO SEE LABEL COMMENTS; Start 03/12/17 at 10:15; Stop 03/12/17 at 14:16; Status DC Diphenhydramine HCl (Benadryl) 25 mg Q4H PRN PO SEE LABEL COMMENTS; Start 03/12 at 10:15; Stop 03/12/17 at 14:16; Status DC Potassium Chloride 100 ml @ 50 mls/hr Q2H IV Last administered on 03/12/17 13 :25; Start 03/12/17 at 11:00; Stop 03/12/17 at 14:59; Status DC Lidocaine HCl (Xylocaine 2% Inj) 50 ml STK-MED ONCE .ROUTE ; Start 03/12/17 at 13:04; Stop 03/12/17 at 13:05; Status DC Mupirocin (Bactroban 2% Oint) 22 applic STK-MED ONCE .ROUTE ; Start 03/12/17 at 13:06; Stop 03/12/17 at 13:07; Status DC Hydromorphone HCl (Dilaudid Pf Inj) 2 mg STK-MED ONCE .ROUTE ; Start 03/12/17 at 15:18; Stop 03/12/17 at 15:19; Status DC Acetaminophen (Ofirmev Inj) 1,000 mg STK-MED ONCE IV ; Start 03/12/17 at 15:18; Stop 03/12/17 at 15:19; Status DC Vancomycin HCl (Vancomycin Inj) 1,000 mg STK-MED ONCE .ROUTE Last administered on 03/12/17 15:54; Start 03/12/17 at 15:57; Stop 03/12/17 at 15:58; Status DC Neomycin/Polymyxin (Neosporin G.u. Irr) 2 ml STK-MED ONCE TOPICAL Last administered on 03/12/17 15:54; Start 03/12/17 at 15:54; Stop 03/12/17 at 16:15 ; Status DC Fentanyl Citrate (fentaNYL INJ) 250 mcg STK-MED ONCE .ROUTE ; Start 03/12/17 at 17:04; Stop 03/12/17 at 17:05; Status DC Miscellaneous Information ALL NURSING DEPARTME... UNSCH PRN .XX SEE LABEL COMMENTS; Start 03/12/17 at 17:30; Stop 03/13/17 at 17:29; Status DC Morphine Sulfate (*morphine INJ PERIprocedure ONLY) 8 mg STK-MED ONCE .ROUTE Last administered on 03/12/17 17:33; Start 03/12/17 at 17:33; Stop 03/12/17 at 17:34; Status DC Lidocaine HCl (Xylocaine 1% Inj) 10 ml ONCE@0700 ONCE OTHER ; Start 03/13/17 at 07:00; Stop 03/13/17 at 07:01; Status DC Potassium Chloride/Sodium Chloride 1,000 ml @ 75 mls/hr [id number] IV Last administered on 04/07/17 10:54; Start 03/13/17 at 11:30; Stop 04/07/17 at 13:42 ; Status DC Polyethylene Glycol/ Electrolytes (Colyte Liq) 4,000 ml ONCE ONCE PEG Last administered on 03/14/17 17:13; Start 03/14/17 at 16:00; Stop 03/14/17 at 16:01 ; Status DC Sodium Chloride 250 ml @ 15 mls/hr ONCE ONCE IV Last administered on 21:30; Start 03/13/17 at 20:00; Stop 03/14/17 at 12:39; Status DC Polyethylene Glycol/ Electrolytes (Colyte Liq) 4,000 ml ONCE ONCE PO Last administered on 03/15/17 17:19; Start 03/15/17 at 16:45; Stop 03/15/17 at 16:48 ; Status DC Propofol (Diprivan 200 Mg/20 ml Inj) 180 mg ONCE ONCE IV Last administered on 03/15/17 16:45; Start 03/15/17 at 16:43; Stop 03/15/17 at 16:45; Status DC Sodium Biphosphate/ Sodium Phosphate (Fleets Enema (Adult)) 133 ml ONCE ONCE RECTAL Last administered on 03/16/17 14:45; Start 03/16/17 at 14:15; Stop at 14:21; Status DC Sodium Biphosphate/ Sodium Phosphate (Fleets Enema (Adult)) 133 ml ONCE ONCE RECTAL Last administered on 03/17/17 09:49; Start 03/17/17 at 08:00; Stop at 08:01; Status DC Propofol (Diprivan 200 Mg/20 ml Inj) 100 mg ONCE ONCE IV PUSH ; Start at 15:00; Stop 03/16/17 at 15:01; Status DC Midazolam HCl (Versed Inj) 2 mg STK-MED ONCE .ROUTE ; Start 03/16/17 at 15:34; Stop 03/16/17 at 15:35; Status DC Vancomycin HCl (Vancomycin Inj) 1,000 mg STK-MED ONCE .ROUTE Last administered on 03/18/17 18:58; Start 03/18/17 at 18:15; Stop 03/18/17 at 18:16; Status DC Fentanyl Citrate (fentaNYL INJ) 200 mcg STK-MED ONCE .ROUTE ; Start 03/18/17 at 19:50; Stop 03/18/17 at 19:51; Status DC Methocarbamol (Robaxin) 500 mg Q8HR PO Last administered on 04/13/17 04:44; Start 03/19/17 at 14:00 Acetaminophen 100 ml @ As Directed STK-MED ONCE IV ; Start 03/24/17 at 09:21; Stop 03/24/17 at 09:22; Status DC Midazolam HCl (Versed Inj) 2 mg STK-MED ONCE .ROUTE ; Start 03/24/17 at 09:21; Stop 03/24/17 at 09:22; Status DC Fentanyl Citrate (fentaNYL INJ) 100 mcg STK-MED ONCE .ROUTE ; Start 03/24/17 at 09:21; Stop 03/24/17 at 09:22; Status DC Fentanyl Citrate (fentaNYL INJ) 100 mcg STK-MED ONCE .ROUTE ; Start 03/24/17 at 09:21; Stop 03/24/17 at 09:22; Status DC Hydromorphone HCl (*DILAUDID PF INJ PERIprocedural ONLY) 1 mg STK-MED ONCE .ROUTE Last administered on 03/24/17 14:53; Start 03/24/17 at 14:53; Stop at 14:54; Status DC Meperidine HCl (*DEMEROL INJ PERIprocedural ONLY) 25 mg STK-MED ONCE .ROUTE Last administered on 03/24/17 15:01; Start 03/24/17 at 15:01; Stop 03/24/17 at 15:02; Status DC Fentanyl Citrate (fentaNYL INJ) 400 mcg STK-MED ONCE .ROUTE ; Start 03/24/17 at 15:01; Stop 03/24/17 at 15:02; Status DC Miscellaneous Information ALL NURSING DEPARTME... UNSCH PRN .XX SEE LABEL COMMENTS; Start 03/24/17 at 14:52; Stop 03/25/17 at 14:51; Status DC Polyethylene Glycol (Miralax) 17 gm DAILY PO ; Start 03/24/17 at 16:30; Status Cancel Acetaminophen (Tylenol) 650 mg Q4H PRN PO fever Last administered on 03/25/17 10:02; Start 03/25/17 at 10:00 Piperacillin Sod/ Tazobactam Sod 100 ml @ 200 mls/hr Q8H IV Last administered on 03/29/17 12:36; Start 03/25/17 at 20:00; Stop 03/29/17 at 14:34; Status DC Furosemide (Lasix Inj) 10 mg ONCE ONCE IV PUSH Last administered on 03/26/17 13:47; Start 03/26/17 at 13:30; Stop 03/26/17 at 13:34; Status DC Furosemide (Lasix Inj) 10 mg UNSCH X1 IV PUSH Last administered on 03/27/17 01 :31; Start 03/26/17 at 17:15; Stop 03/26/17 at 23:59; Status DC Levothyroxine Sodium (Synthroid) 50 mcg DAILY@0600 PO Last administered on 04/13 04:44; Start 03/30/17 at 06:00 Levothyroxine Sodium (Synthroid) 50 mcg ONCE ONCE PO Last administered on 12:55; Start 03/29/17 at 12:00; Stop 03/29/17 at 12:02; Status DC Levofloxacin (Levaquin) 500 mg DAILY PO Last administered on 04/07/17 08:46; Start 03/29/17 at 14:45; Stop 04/07/17 at 14:44; Status DC Propofol (Diprivan 200 Mg/20 ml Inj) 200 mg STK-MED ONCE IV ; Start 02/26/17 at 12:00; Stop 03/30/17 at 13:17; Status DC Neostigmine Methylsulfate (Prostigmin Inj) 3 mg STK-MED ONCE IV ; Start 02/26/17 at 12:00; Stop 03/30/17 at 13:17; Status DC Phenylephrine HCl (Neosynephrine/ NS 1000 Mcg/10ml Syr) 1,000 mcg STK-MED ONCE IV ; Start 02/26/17 at 12:00; Stop 03/30/17 at 13:17; Status DC Lactated Ringer's 2,000 ml @ As Directed STK-MED ONCE IV ; Start 02/26/17 at 12: 00; Stop 03/30/17 at 13:17; Status DC Propofol (Diprivan 200 Mg/20 ml Inj) 200 mg STK-MED ONCE IV ; Start 02/28/17 at 12:00; Stop 03/30/17 at 13:46; Status DC Neostigmine Methylsulfate (Prostigmin Inj) 3 mg STK-MED ONCE IV ; Start 02/28/17 at 12:00; Stop 03/30/17 at 13:46; Status DC Lactated Ringer's 2,000 ml @ As Directed STK-MED ONCE IV ; Start 02/28/17 at 12: 00; Stop 03/30/17 at 13:46; Status DC Propofol (Diprivan 200 Mg/20 ml Inj) 400 mg STK-MED ONCE IV ; Start 03/04/17 at 12:00; Stop 03/30/17 at 14:07; Status DC Ephedrine Sulfate (ePHEDrine/NS 25 MG/5 ML SYR) 25 mg STK-MED ONCE IV ; Start at 12:00; Stop 03/30/17 at 14:07; Status DC Phenylephrine HCl (Neosynephrine/ NS 1000 Mcg/10ml Syr) 2,000 mcg STK-MED ONCE IV ; Start 03/04/17 at 12:00; Stop 03/30/17 at 14:08; Status DC Ondansetron HCl (Zofran Inj) 4 mg STK-MED ONCE IV PUSH ; Start 03/04/17 at 12:00 ; Stop 03/30/17 at 14:08; Status DC Propofol (Diprivan 200 Mg/20 ml Inj) 200 mg STK-MED ONCE IV ; Start 03/08/17 at 12:00; Stop 03/30/17 at 14:49; Status DC Ephedrine Sulfate (ePHEDrine/NS 25 MG/5 ML SYR) 50 mg STK-MED ONCE IV ; Start at 12:00; Stop 03/30/17 at 14:49; Status DC Neostigmine Methylsulfate (Prostigmin Inj) 4 mg STK-MED ONCE IV ; Start at 12:00; Stop 03/30/17 at 14:49; Status DC Phenylephrine HCl (Neosynephrine/ NS 1000 Mcg/10ml Syr) 1,000 mcg STK-MED ONCE IV ; Start 03/08/17 at 12:00; Stop 03/30/17 at 14:49; Status DC Ondansetron HCl (Zofran Inj) 4 mg STK-MED ONCE IV PUSH ; Start 03/08/17 at 12:00 ; Stop 03/30/17 at 14:49; Status DC Lactated Ringer's 1,000 ml @ As Directed STK-MED ONCE IV ; Start 03/08/17 at 12 :00; Stop 03/30/17 at 14:49; Status DC Propofol (Diprivan 200 Mg/20 ml Inj) 200 mg STK-MED ONCE IV ; Start 03/10/17 at 12:00; Stop 03/30/17 at 15:08; Status DC Ephedrine Sulfate (ePHEDrine/NS 25 MG/5 ML SYR) 25 mg STK-MED ONCE IV ; Start at 12:00; Stop 03/30/17 at 15:08; Status DC Neostigmine Methylsulfate (Prostigmin Inj) 3 mg STK-MED ONCE IV ; Start at 12:00; Stop 03/30/17 at 15:08; Status DC Phenylephrine HCl (Neosynephrine/ NS 1000 Mcg/10ml Syr) 2,000 mcg STK-MED ONCE IV ; Start 03/10/17 at 12:00; Stop 03/30/17 at 15:08; Status DC Ondansetron HCl (Zofran Inj) 4 mg STK-MED ONCE IV PUSH ; Start 03/10/17 at 12:00 ; Stop 03/30/17 at 15:08; Status DC Lactated Ringer's 1,000 ml @ As Directed STK-MED ONCE IV ; Start 03/10/17 at 12 :00; Stop 03/30/17 at 15:08; Status DC Sodium Chloride 1,000 ml @ As Directed STK-MED ONCE IV ; Start 03/10/17 at 12: 00; Stop 03/30/17 at 15:08; Status DC Propofol (Diprivan 200 Mg/20 ml Inj) 200 mg STK-MED ONCE IV ; Start 03/12/17 at 12:00; Stop 03/30/17 at 15:20; Status DC Ephedrine Sulfate (ePHEDrine/NS 25 MG/5 ML SYR) 25 mg STK-MED ONCE IV ; Start at 12:00; Stop 03/30/17 at 15:20; Status DC Phenylephrine HCl (Neosynephrine/ NS 1000 Mcg/10ml Syr) 1,000 mcg STK-MED ONCE IV ; Start 03/12/17 at 12:00; Stop 03/30/17 at 15:20; Status DC Ondansetron HCl (Zofran Inj) 4 mg STK-MED ONCE IV PUSH ; Start 03/12/17 at 12:00 ; Stop 03/30/17 at 15:20; Status DC Lactated Ringer's 1,000 ml @ As Directed STK-MED ONCE IV ; Start 03/12/17 at 12 :00; Stop 03/30/17 at 15:20; Status DC Propofol (Diprivan 200 Mg/20 ml Inj) 200 mg STK-MED ONCE IV ; Start 03/18/17 at 12:00; Stop 03/30/17 at 15:38; Status DC Ondansetron HCl (Zofran Inj) 4 mg STK-MED ONCE IV PUSH ; Start 03/18/17 at 12:00 ; Stop 03/30/17 at 15:38; Status DC Neostigmine Methylsulfate (Prostigmin Inj) 3 mg STK-MED ONCE IV ; Start at 12:00; Stop 03/30/17 at 15:38; Status DC Phenylephrine HCl (Neosynephrine/ NS 1000 Mcg/10ml Syr) 1,000 mcg STK-MED ONCE IV ; Start 03/18/17 at 12:00; Stop 03/30/17 at 15:38; Status DC Oxycodone/ Acetaminophen (Percocet 5-325 Mg) 1 tab Q4H PRN PO pain 3 to 5; Start 04/02/17 at 13:00; Stop 04/09/17 at 17:08; Status DC Oxycodone/ Acetaminophen (Percocet 10-325 Mg) 1 tab Q4H PRN PO pain 6-10 Last administered on 04/09/17 14:14; Start 04/02/17 at 13:00; Stop 04/09/17 at 17:08 ; Status DC Magnesium Sulfate/ Dextrose 100 ml @ 100 mls/hr Q1H IV Last administered on 16:15; Start 04/03/17 at 14:00; Stop 04/03/17 at 15:59; Status DC Sodium Chloride (Sodium Chloride) 1 gm TID PO Last administered on 04/07/17 13 :24; Start 04/04/17 at 14:00; Stop 04/07/17 at 13:45; Status DC Calcium Chloride 2 gm/Sodium Chloride 120 ml @ 120 mls/hr ONCE ONCE IV Last administered on 04/04/17 15:45; Start 04/04/17 at 14:00; Stop 04/04/17 at 14:59 ; Status DC Hydromorphone HCl (Dilaudid Pf Inj) 0.2 mg Q6H PRN IV PUSH breakthrough pain Last administered on 04/13/17 03:27; Start 04/09/17 at 17:15; Stop 04/13/17 at 03:27; Status DC Acetaminophen/ Hydrocodone Bitart ([place] 7.5-325 Mg) 1 tab Q4H PRN PO PAIN 6- 10 Last administered on 04/13/17 08:50; Start 04/09/17 at 17:15 Acetaminophen/ Hydrocodone Bitart ([place] 5-325 Mg) 1 tab Q4H PRN PO PAIN 3-5; Start 04/09/17 at 17:15 Tolvaptan (Samsca) 15 mg ONCE ONCE PO Last administered on 04/09/17 22:49; Start 04/09/17 at 19:30; Stop 04/09/17 at 19:32; Status DC Carvedilol (Coreg) 6.25 mg Q12HR PO Last administered on 04/13/17 08:50; Start 04/10/17 at 09:00 Clonidine (Catapres) 0.2 mg Q8H PO Last administered on 04/13/17 04:46; Start 04/10/17 at 20:00 A/P Assessment and Plan A/P Hyponatremia-resolved. continue with fluid restriction. patient recived Tolvaptan- nephrology signed off. 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 distant showering of emboli to other joints. MRSA bacteremia Right ankle hardware infection, s/p partial removal of hardware. Deeper hardware embedded. SP RIGHT BKA Bilateral UE hand abscess and tenosynovitis, septic arthritis s.p multiple debridements. continue Daptomycin till 04/24/17 per ID Continue pain control. ID following Multiple surgeries thus far: - podiatry Dr. Reyes/Dr. Gamez on 02/26, 02/28, 03/04 - hand surgeon Dr. Bullock on 02/26, 02/28, 03/04, 03/08, 03/10 -right BKA Anemia Follow CBC Status post blood transfusion Acute Toxic/Metabolic Encephalopathy secondary to Sepsis-improved. Acute Alcohol Withdrawal - improved Hypertension Continue clonidine and Coreg, cardiology initiate low dose lisinopril, monitor renal function Follow blood pressures Adjust as needed for control Mild Systolic CHF Scrotal edema EF of 40-45% with global hypokinesis found on 02/28/17 Continue beta amarjit HYPOTHYROIDISM continue synthroid THADDEUS mostly vanco induced - resolved Monitor renal function Avoid nephrotoxins Previous event was likely secondary to ATN Nephrology following Hepatitis C- f/u as outpatient. Standard precautions DVT Prophylaxis Lovenox Discharge Planning previously d/w the case management; has to stay inpatient while receiving IV antibiotics. Flaca Houser MD Apr 13, 2017 09:39
[2017-04-13 10:44] LABS: AUTOMATED NEUTROPHIL # 6.6 TH/MM3 (1.8-7.7); BASOPHIL # 0.1 TH/MM3 (0-0.2); BASOPHIL % 0.8 % (0.0-2.0); EOSINOPHIL # 0.4 TH/MM3 (0-0.4); HEMATOCRIT 26.8 % (39.0-51.0); HEMO FLAGS DIFF FINAL; LYMPH % 12.2 % (9.0-44.0); LYMPHOCYTE # 1.1 TH/MM3 (1.0-4.8); MEAN CELL VOLUME 88.2 FL (80.0-100.0); MEAN CORPUSCULAR HEMOGLOBIN 28.7 PG (27.0-34.0); MEAN CORPUSCULAR HGB CONC 32.6 % (32.0-36.0); MONO % 7.5 % (0.0-8.0); NEUT % 74.5 % (16.0-70.0); PLATELET COUNT 373 TH/MM3 (150-450); RED BLOOD COUNT 3.04 MIL/MM3 (4.50-5.90); RED CELL DISTRIBUTION WIDTH 17.3 % (11.6-17.2); WHITE BLOOD COUNT 8.8 TH/MM3 (4.0-11.0)
[2017-04-13 12:00] VITALS: BP 154/80; PULSE 69; RESP 20; TEMP 98.1; O2SAT 97
[2017-04-13] MEDS: SODIUM CHLORIDE 0.9% IV SCH (12:53)
[2017-04-13] MEDS: ENOXAPARIN SODIUM 40 MG/0.4 ML SYRINGE SQ SCH (12:53)
[2017-04-13] MEDS: DAPTOMYCIN IV SCH (12:53)
[2017-04-13 16:00] VITALS: BP 128/68; PULSE 64; RESP 20; TEMP 98.4; O2SAT 98
[2017-04-13 20:00] VITALS: BP 141/62; PULSE 66; RESP 18; TEMP 98.6; O2SAT 96
[2017-04-14] VITALS: BP 120/60; PULSE 59; RESP 18; TEMP 99.4; O2SAT 98
[2017-04-14] MEDS: PANTOPRAZOLE SODIUM 40 MG VIAL IV PUSH SCH (00:17)
[2017-04-14] MEDS: ACETAMINOPHEN/HYDROcodone 325 MG/7.5 MG TAB PO PRN ×5 (01:33→22:24)
[2017-04-14 04:00] VITALS: BP 140/67; PULSE 76; RESP 18; TEMP 98.6; O2SAT 98
[2017-04-14] MEDS: METHOCARBAMOL 500 MG TAB PO SCH ×3 (05:25→22:04)
[2017-04-14] MEDS: LEVOTHYROXINE SODIUM 50 MCG TAB PO SCH (05:25)
[2017-04-14] MEDS: cloNIDine HCL 0.2 MG TAB PO SCH ×3 (05:26→22:03)
[2017-04-14] MEDS: THIAMINE HCL 100 MG TAB PO SCH (09:00)
[2017-04-14] MEDS: CARVEDILOL 6.25 MG TAB PO SCH ×2 (09:00→22:03)
[2017-04-14] MEDS: LISINOPRIL 5 MG TAB PO SCH (09:00)
[2017-04-14] MEDS: MULTIVITAMIN TAB PO SCH (09:00)
[2017-04-14 09:55] LABS: ALT (GPT) 31 U/L (12-78); ANION GAP 6 MEQ/L (5-15); AST (GOT) 28 U/L (15-37); BICARBONATE 27.5 MEQ/L (21.0-32.0); BLOOD UREA NITROGEN 14 MG/DL (7-18); CHLORIDE 96 MEQ/L (98-107); GLOMERULAR FILTRATION RATE 126 ML/MIN (>89); POTASSIUM 3.9 MEQ/L (3.5-5.1); SODIUM (NA) 129 MEQ/L (136-145)
[2017-04-14 09:58] LABS: ALKALINE PHOSPHATASE 108 U/L (45-117); TOTAL BILIRUBIN ADULT 0.3 MG/DL (0.2-1.0)
[2017-04-14] MEDS: DAPTOMYCIN IV SCH (11:37)
[2017-04-14] MEDS: SODIUM CHLORIDE 0.9% IV SCH (11:37)
[2017-04-14 12:00] VITALS: BP 128/75; PULSE 61; RESP 18; TEMP 98.7; O2SAT 98
--- NOTE | 2017-04-14 12:14 | HHI.PR ---
Subjective Remarks in no acute distress. complaining of some back pain and spasm. no fever. no new complaints. Objective Vitals Vital Signs Date Time Temp Pulse Resp B/P (MAP) Pulse Ox O2 Delivery O2 Flow Rate FiO2 04/14/17 04:00 98.6 76 18 140/67 (91) 98 04/14/17 00:00 99.4 59 18 120/60 (80) 98 04/13/17 20:00 98.6 66 18 141/62 (88) 96 04/13/17 16:00 98.4 64 20 128/68 (88) 98 I/O 04/13/17 04/13/17 04/13/17 04/14/17 04/14/17 04/14/17 07:00 15:00 23:00 07:00 15:00 23:00 Intake Total 120 ml 840 ml Output Total 1300 ml 1750 ml 1550 ml Balance -1180 ml -910 ml -1550 ml Intake Oral 120 ml 840 ml Output Urine Total 1300 ml 1750 ml 1550 ml Bladder Scan Volume Amount 499 ml 499 ml # Bowel Movements 0 1 Result Diagram: 04/13/17 1014 04/14/17 0903 Imaging Last Impressions Chest X-Ray 03/29/17 0000 Signed Impressions: Service Date/Time: Wednesday, March 29, 2017 12:17 - CONCLUSION: Stable chest. Isaac Stevenson MD FACR Tumor Localization 03/22/17 0000 Signed Impressions: Service Date/Time: Wednesday, March 22, 2017 13:03 - CONCLUSION: Nondiagnostic examination secondary to patient refusal Harry Lucio MD Abdomen X-Ray 03/08/17 0000 Signed Impressions: Service Date/Time: Wednesday, March 08, 2017 10:30 - CONCLUSION: Nonspecific, negative for obstruction or ileus. Isaac Stevenson MD FACR Lower Extremity CT 03/01/17 0000 Signed Impressions: Service Date/Time: Wednesday, March 01, 2017 11:12 - CONCLUSION: 1. No evidence of organized fluid collections to suggest an abscess. 2. Extensive soft tissue swelling surrounding the ankle and extending to the forefoot especially along the lateral aspect. 3. No erosive or destructive bone changes. 4. Bone defects compatible with previous excision device. Blake Rider MD Ankle X-Ray 02/26/17 0000 Signed Impressions: Service Date/Time: Sunday, February 26, 2017 17:15 - CONCLUSION: I see no retained surgical instruments. Isaac Stevenson MD FACR Upper Extremity Ultrasound 02/25/17 1734 Signed Impressions: Service Date/Time: February 17:54 - CONCLUSION: There is a thin fluid collection within the focal area of soft tissue swelling 2nd digit. Oscar Cassidy MD Hand X-Ray 02/25/17 0000 Signed Impressions: Service Date/Time: February 18:59 - CONCLUSION: No gross bony abnormality. Oscar Cassidy MD Lower Extremity Ultrasound 02/24/17 0000 Signed Impressions: Service Date/Time: Friday, February 24, 2017 13:41 - CONCLUSION: Negative for deep venous thrombosis. Isaac Stevenson MD FACR Head CT 02/24/17 0000 Signed Impressions: Service Date/Time: Friday, February 24, 2017 16:08 - CONCLUSION: 1. No acute intracranial abnormality. 2. Probable large mucocele in the sphenoid sinus. Ty Hankins MD Abdomen/Pelvis CT 02/24/17 0000 Signed Impressions: Service Date/Time: Friday, February 24, 2017 16:16 - CONCLUSION: 1. Marked gaseous distension of large and small bowel most suggestive of ileus. 2. There is no free air. 3. 2.2 cm left adrenal mass. 4. Distended bladder. Isaac Stevenson MD FACR Objective Remarks GENERAL: This is a well-nourished, well-developed patient, in no apparent distress. CARDIOVASCULAR: Regular rate and regular rhythm without murmurs, gallops, or rubs. RESPIRATORY: Clear to auscultation. Breath sounds equal bilaterally. No wheezes , rales, or rhonchi. GASTROINTESTINAL: Abdomen soft, non-tender, nondistended. Normal, active bowel sounds MUSCULOSKELETAL: right forearm covered with clean dressing- s/p right BKA NEURO: Alert & Oriented x4 to person, place, time, situation. Moves all ext x4 Procedures 03/10/2017 - Dr. Bullock exploration, wash, excisional debridement extensor tenosynovium right wrist/forearm/hand 03/08/17 - Dr. Bullock- exploration, wash, excisional debridement skin, subcutaneous tissue, extensor tenosynovitis right wrist and hand. Findings: necrotic tissue, minimal purulence, extensor tenosynovitis right wrist/hand 03/04/17 - Dr Gamez - Right leg and incision and drainage. Right foot delayed primary closure x3 03/04/17 - Dr. Bullock - Extensor tenosynovectomy second, third, fourth extensor compartments right wrist and excisional debridement wash index finger metacarpal phalangeal joint, excisional wash and excisional debridement left hand. 02/28/17 - Dr. Reyes - Right ankle wound debridement and washout. Implantation of antibiotic vancomycin beads. 02/28/17 - Dr. Bullock - Exploration, wash, excisional debridement index finger metacarpophalangeal joint right hand; Exploration, wash, excisional debridement metacarpophalangeal joint left index finger; Exploration, wash, excisional debridement extensor pollicis longus tendon right thumb and hand. 02/26/17 - Dr. Reyes - Right ankle incision and drainage, arthrotomy, removal infected hardware, bone biopsy. 02/26/17 - Dr. Bullock - Exploration, incision and drainage right hand abscess, Arthrotomy wash metacarpal phalangeal joint right index finger, Arthrotomy wash metacarpal phalangeal joint left index finger. Medications and IVs Current Medications Sodium Chloride 1,000 ml @ 999 mls/hr BOLUS ONCE IV Last administered on 13:38; Start 02/24/17 at 13:45; Stop 02/24/17 at 14:45; Status DC IV Flush (NS Flush) 2 ml UNSCH PRN IV FLUSH FLUSH AFTER USING IV ACCESS Last administered on 02/24/17 13:38; Start 02/24/17 at 13:45 Vancomycin HCl 1000 mg/Sodium Chloride 250 ml @ 250 mls/hr ONCE STAT IV Last administered on 02/24/17 15:49; Start 02/24/17 at 15:35; Stop 02/24/17 at 16:34; Status DC Cefepime HCl 2000 mg/Sodium Chloride 100 ml @ 200 mls/hr ONCE STAT IV Last administered on 02/24/17 16:36; Start 02/24/17 at 15:35; Stop 02/24/17 at 16:04; Status DC Potassium Bicarb/ Potassium Chloride (K-Lyte Cl Eff) 50 meq ONCE ONCE PO Last administered on 02/24/17 15:56; Start 02/24/17 at 16:00; Stop 02/24/17 at 16: 01; Status DC Iohexol (Omnipaque 350 Inj) 97 ml STK-MED ONCE IV Last administered on 16:29; Start 02/24/17 at 16:29; Stop 02/24/17 at 16:30; Status DC Sodium Chloride 1,000 ml @ 125 mls/hr Q8H IV Last administered on 03/02/17 09: 33; Start 02/24/17 at 18:00; Stop 03/02/17 at 13:08; Status DC Ondansetron HCl (Zofran Inj) 4 mg Q8HR PRN IV PUSH NAUSEA; Start 02/24/17 at 18: 00 Thiamine HCl (Vitamin B1) 100 mg ONCE ONCE PO Last administered on 02/24/17 20 :20; Start 02/24/17 at 20:15; Stop 02/24/17 at 20:16; Status DC Thiamine HCl (Vitamin B1) 100 mg DAILY PO Last administered on 04/12/17 09:52 ; Start 02/25/17 at 09:00 Potassium Chloride 100 ml @ 50 mls/hr Q2H IV Last administered on 02/24/17 22: 59; Start 02/24/17 at 20:30; Stop 02/25/17 at 00:29; Status DC Pharmacy Profile Note 0 ml @ 0 mls/hr UNSCH OTHER ; Start 02/24/17 at 20:15; Stop 03/02/17 at 13:23; Status DC Cefepime HCl 2000 mg/Sodium Chloride 100 ml @ 200 mls/hr Q12H IV Last administered on 02/27/17 05:51; Start 02/25/17 at 07:00; Stop 02/27/17 at 14:53; Status DC Vancomycin HCl 1500 mg/Sodium Chloride 515 ml @ 257.5 mls/ hr Q18H IV Last administered on 02/25/17 10:30; Start 02/25/17 at 10:00; Stop 02/25/17 at 11:30; Status DC Miscellaneous Information SPECIFIC LAB TO BE DRAWN:VANCO TROUGH DATE TO BE .. ONCE ONCE .XX ; Start 02/26/17 at 21:45; Stop 02/26/17 at 21:46; Status DC Flumazenil (Romazicon Inj) 0.2 mg Q1M PRN IV PUSH SEE LABEL COMMENTS; Start 02/25/17 at 09:15 Lorazepam (Ativan) 1 mg Q4H PRN PO agitation Last administered on 03/20/17 03: 18; Start 02/25/17 at 09:15 Lorazepam (Ativan Inj) 1 mg Q4H PRN IV PUSH agitation when not taking po Last administered on 03/05/17 02:41; Start 02/25/17 at 09:15 Lorazepam (Ativan) 2 mg Q2H PRN PO CIWA 11-14; Start 02/25/17 at 09:15; Stop 02/28/17 at 07:44; Status DC Lorazepam (Ativan Inj) 2 mg Q2H PRN IV PUSH CIWA 11-14 Last administered on 02/26 18:14; Start 02/25/17 at 09:15; Stop 02/28/17 at 07:44; Status DC Lorazepam (Ativan Inj) 2 mg Q1H PRN IV PUSH CIWA 15-20 Last administered on 02/25 21:37; Start 02/25/17 at 09:15; Stop 02/28/17 at 07:44; Status DC Lorazepam (Ativan Inj) 2 mg Q15M PRN IV PUSH CIWA > 20 Last administered on 02/26 06:25; Start 02/25/17 at 09:15; Stop 02/28/17 at 07:44; Status DC Multivitamins (Theragran) 1 tab DAILY PO Last administered on 04/14/17 09:00; Start 02/26/17 at 09:00 Acetaminophen (Tylenol) 650 mg Q4H PRN PO FEVER Last administered on 03/07/17 04:47; Start 02/25/17 at 09:15; Stop 03/12/17 at 10:47; Status DC Lisinopril (Prinivil) 10 mg DAILY PO ; Start 02/26/17 at 09:00; Stop 03/08/17 at 21:09; Status DC Enoxaparin Sodium (Lovenox Inj) 40 mg Q24H SQ Last administered on 03/07/17 10 :00; Start 02/25/17 at 10:00; Stop 03/10/17 at 12:17; Status DC Vancomycin HCl 1500 mg/Sodium Chloride 515 ml @ 257.5 mls/ hr Q12H IV Last administered on 02/26/17 09:42; Start 02/25/17 at 22:00; Stop 02/26/17 at 12:06; Status DC Miscellaneous Information SPECIFIC LAB TO BE BIA... ONCE ONCE .XX Last administered on 02/26/17 09:45; Start 02/26/17 at 09:45; Stop 02/26/17 at 09:46; Status DC Chlordiazepoxide (Librium) 25 mg Q8H PO ; Start 02/25/17 at 17:00; Stop 02/25/17 at 20:24; Status DC Gentamicin Sulfate 70 mg/ Sodium Chloride 101.75 ml @ 100 mls/ hr ONCE ONCE IV Last administered on 02/25/17 18:51; Start 02/25/17 at 18:30; Stop 02/25/17 at 19:31; Status DC Dexmedetomidine HCl 200 mcg/ Sodium Chloride 52 ml @ 0 mls/hr TITRATE IV Last administered on 02/27/17 13:55; Start 02/25/17 at 17:30; Stop 03/09/17 at 23:34; Status DC Acetaminophen (Ofirmev Inj) 650 mg Q6H PRN IV TEMP >101 Last administered on 20:12; Start 02/25/17 at 21:00 Iohexol (Omnipaque 350 Inj) 75 ml STK-MED ONCE IV Last administered on 21:15; Start 02/25/17 at 21:15; Stop 02/25/17 at 21:16; Status DC Potassium Chloride 100 ml @ 50 mls/hr Q2H PRN IV For Potassium 2.8 - 3.2 mEq/L ; Start 02/25/17 at 22:45; Stop 03/01/17 at 23:53; Status DC Potassium Chloride 100 ml @ 50 mls/hr Q2H PRN IV For Potassium 2.8 - 3.2 mEq/ L Last administered on 02/28/17 12:32; Start 02/25/17 at 22:45; Stop 03/01/17 at 23:53; Status DC Potassium Bicarb/ Potassium Chloride (K-Lyte Cl Eff) 50 meq UNSCH PRN PO For Potassium 3.3 - 3.5 mEq/L; Start 02/25/17 at 22:45; Stop 03/01/17 at 23:53; Status DC Potassium Chloride 100 ml @ 25 mls/hr UNSCH PRN IV For Potassium 3.3 - 3.5 mEq /L; Start 02/25/17 at 22:45; Stop 03/01/17 at 23:53; Status DC Potassium Chloride 100 ml @ 50 mls/hr Q2H PRN IV For Potassium 3.3 - 3.5 mEq/ L Last administered on 02/28/17 06:39; Start 02/25/17 at 22:45; Stop 03/01/17 at 23:53; Status DC Magnesium Sulfate 4 gm/Sodium Chloride 100 ml @ 50 mls/hr UNSCH PRN IV For Magnesium 0.9 - 1.1 mg/dL; Start 02/25/17 at 22:45; Stop 03/01/17 at 23:53; Status DC Magnesium Oxide (Mag-Ox) 800 mg UNSCH PRN PO For Magnesium 1.2 - 1.6 mg/dL; Start 02/25/17 at 22:45; Stop 03/01/17 at 23:53; Status DC Magnesium Sulfate 2 gm/Sodium Chloride 100 ml @ 50 mls/hr UNSCH PRN IV For Magnesium 1.2 - 1.6 mg/dL; Start 02/25/17 at 22:45; Stop 03/01/17 at 23:53; Status DC Potassium Phosphate (K-Phos) 2,000 mg Q4H PRN PO For Phosphorus < 2.5 mg/dL; Start 02/25/17 at 22:45; Stop 03/01/17 at 23:53; Status DC Sodium Phosphate 30 mmol/Sodium Chloride 250 ml @ 42 mls/hr UNSCH PRN IV For Phosphorus < 2.5 mg/dL Last administered on 02/26/17 23:19; Start 02/25/17 at 22: 45; Stop 03/01/17 at 23:53; Status DC Potassium Phosphate (K-Phos) 2,000 mg UNSCH PRN PO/TUBE SEE LABEL COMMENTS; Start 02/25/17 at 22:45; Stop 03/01/17 at 23:53; Status DC Potassium Phosphate 30 mmol/ Sodium Chloride 260 ml @ 42 mls/hr UNSCH PRN IV SEE LABEL COMMENTS; Start 02/25/17 at 22:45; Stop 03/01/17 at 23:53; Status DC Labetalol HCl (Trandate Inj) 10 mg Q6H PRN IV PUSH SBP >165; Start 02/25/17 at 23:15 Pantoprazole Sodium (Protonix Inj) 40 mg Q24H IV PUSH Last administered on 04/14 00:17; Start 02/26/17 at 00:00 Miscellaneous Information Patient in critical care unit? Ass... [id number] .XX ; Start 02/26/17 at 07:15 Mupirocin (Bactroban Nasal 2% Oint) 1 applic BID NASAL Last administered on 20:25; Start 02/26/17 at 09:00 Chlorhexidine Gluconate (Chlorhexidine 2% Cloth) 3 pack DAILY@04 TOPICAL Last administered on 03/03/17 04:00; Start 02/27/17 at 04:00; Stop 03/03/17 at 04:01; Status DC Chlorhexidine Gluconate (Chlorhexidine 2% Cloth) 3 pack UNSCH PRN TOPICAL HYGIENIC CARE; Start 02/26/17 at 07:15; Stop 03/03/17 at 07:07; Status DC Lidocaine HCl (Xylocaine 2% Inj) 50 ml STK-MED ONCE .ROUTE ; Start 02/26/17 at 09 :35; Stop 02/26/17 at 09:36; Status DC Bupivacaine HCl (Marcaine Pf 0.5% Inj) 60 ml STK-MED ONCE .ROUTE ; Start at 09:35; Stop 02/26/17 at 09:36; Status DC Mupirocin (Bactroban 2% Oint) 22 applic STK-MED ONCE .ROUTE ; Start 02/26/17 at 09:35; Stop 02/26/17 at 09:36; Status DC Vancomycin HCl 1250 mg/Sodium Chloride 262.5 ml @ 250 mls/hr Q12H IV Last administered on 03/02/17 09:33; Start 02/26/17 at 22:00; Stop 03/02/17 at 13:23; Status DC Miscellaneous Information SPECIFIC LAB TO BE BIA... ONCE ONCE .XX Last administered on 02/27/17 22:46; Start 02/27/17 at 21:45; Stop 02/27/17 at 21:46; Status DC Neomycin/Polymyxin (Neosporin G.u. Irr) 3 ml STK-MED ONCE TOPICAL Last administered on 02/26/17 13:06; Start 02/26/17 at 13:06; Stop 02/26/17 at 16:26; Status DC Neomycin/Polymyxin (Neosporin G.u. Irr) 4 ml STK-MED ONCE TOPICAL Last administered on 02/26/17 15:47; Start 02/26/17 at 15:47; Stop 02/26/17 at 16:26; Status DC Fentanyl Citrate (fentaNYL INJ) 250 mcg STK-MED ONCE .ROUTE ; Start 02/26/17 at 18:16; Stop 02/26/17 at 18:17; Status DC Fentanyl Citrate (fentaNYL INJ) 100 mcg STK-MED ONCE .ROUTE ; Start 02/26/17 at 18:16; Stop 02/26/17 at 18:17; Status DC Miscellaneous Information ALL NURSING DEPARTME... UNSCH PRN .XX SEE LABEL COMMENTS; Start 02/26/17 at 17:57; Stop 02/27/17 at 17:56; Status DC Clonidine (Catapres) 0.3 mg Q8HR PO Last administered on 04/10/17 12:33; Start 02/26/17 at 22:11; Stop 04/10/17 at 12:52; Status DC Diazepam (Valium) 5 mg Taper DAILY PO Last administered on 03/06/17 09:49; Start 02/26/17 at 22:15; Stop 03/06/17 at 22:14; Status DC Water (Free Water) 200 ml Q8HR G-TUBE Last administered on 02/27/17 22:31; Start 02/27/17 at 06:55; Stop 02/28/17 at 07:41; Status DC Rifampin 300 mg/ Sodium Chloride 100 ml @ 100 mls/hr Q12H IV Last administered on 03/02/17 14:41; Start 02/27/17 at 15:00; Stop 03/02/17 at 16:41; Status DC Oxycodone HCl (Roxicodone) 5 mg Q4H PRN PO pain 1-5 Last administered on 09:26; Start 02/28/17 at 07:45; Stop 04/09/17 at 17:08; Status DC Hydromorphone HCl (Dilaudid Pf Inj) 0.5 mg Q3H PRN IV PUSH pain 6-10 or not taking po Last administered on 04/09/17 16:51; Start 02/28/17 at 07:45; Stop at 17:08; Status DC Water (Free Water) 300 ml Q4HR G-TUBE Last administered on 03/02/17 20:00; Start 02/28/17 at 08:00; Stop 03/02/17 at 23:07; Status DC Vancomycin HCl (Vancomycin Inj) 1,000 mg STK-MED ONCE .ROUTE Last administered on 02/28/17 09:01; Start 02/28/17 at 09:01; Stop 02/28/17 at 09:02; Status DC Vancomycin HCl (Vancomycin Inj) 1,000 mg STK-MED ONCE .ROUTE Last administered on 02/28/17 09:33; Start 02/28/17 at 09:33; Stop 02/28/17 at 09:34; Status DC Vancomycin HCl (Vancomycin Inj) 1,000 mg STK-MED ONCE .ROUTE Last administered on 02/28/17 09:36; Start 02/28/17 at 09:33; Stop 02/28/17 at 09:34; Status DC Daptomycin 450 mg/ Sodium Chloride 100 ml @ 200 mls/hr Q24H IV Last administered on 03/05/17 13:41; Start 02/28/17 at 12:00; Stop 03/05/17 at 18:00 ; Status DC Vancomycin HCl (Vancomycin Inj) 1,000 mg STK-MED ONCE .ROUTE Last administered on 02/28/17 10:45; Start 02/28/17 at 10:42; Stop 02/28/17 at 10:43; Status DC Vancomycin HCl (Vancomycin Inj) 500 mg STK-MED ONCE .ROUTE Last administered on 02/28/17 10:45; Start 02/28/17 at 10:42; Stop 02/28/17 at 10:43; Status DC Fentanyl Citrate (fentaNYL INJ) 250 mcg STK-MED ONCE .ROUTE ; Start 02/28/17 at 11:48; Stop 02/28/17 at 11:49; Status DC Miscellaneous Information ALL NURSING DEPARTME... UNSCH PRN .XX SEE LABEL COMMENTS; Start 02/28/17 at 11:33; Stop 03/01/17 at 11:32; Status DC Miscellaneous Information SPECIFIC LAB TO BE BIA... ONCE ONCE .XX ; Start 03/04 at 09:45; Stop 03/04/17 at 09:46; Status Cancel Sodium Chloride 1,000 ml @ 999 mls/hr BOLUS ONCE IV Last administered on 13:28; Start 03/02/17 at 13:15; Stop 03/02/17 at 14:15; Status DC Sodium Chloride 1,000 ml @ 125 mls/hr Q8H IV Last administered on 03/02/17 14: 18; Start 03/02/17 at 13:15; Stop 03/02/17 at 14:30; Status DC Rifampin (Rifampin) 300 mg Q12HR PO Last administered on 03/23/17 08:42; Start 03/02/17 at 21:00; Stop 03/23/17 at 18:40; Status DC Potassium Chloride 20 meq/ Sodium Chloride 38.5 meq/Sterile Water 1,010 ml @ 55 mls/hr [id number] IV Last administered on 03/09/17 22:51; Start 03/03/17 at 11: 00; Stop 03/09/17 at 23:36; Status DC Furosemide (Lasix Inj) 20 mg ONCE ONCE IV PUSH Last administered on 03/03/17 10:19; Start 03/03/17 at 09:30; Stop 03/03/17 at 09:43; Status DC Carvedilol (Coreg) 6.25 mg Q12HR PO Last administered on 04/09/17 08:40; Start 03/03/17 at 21:00; Stop 04/10/17 at 03:26; Status DC Vancomycin HCl (Vancomycin Inj) 1,000 mg STK-MED ONCE .ROUTE Last administered on 03/04/17 15:52; Start 03/04/17 at 15:10; Stop 03/04/17 at 15:11; Status DC Fentanyl Citrate (fentaNYL INJ) 100 mcg STK-MED ONCE .ROUTE ; Start 03/04/17 at 16:38; Stop 03/04/17 at 16:39; Status DC Fentanyl Citrate (fentaNYL INJ) 250 mcg STK-MED ONCE .ROUTE ; Start 03/04/17 at 16:38; Stop 03/04/17 at 16:39; Status DC Vancomycin HCl (Vancomycin Inj) 1,000 mg STK-MED ONCE .ROUTE Last administered on 03/04/17 16:52; Start 03/04/17 at 16:59; Stop 03/04/17 at 17:00; Status DC Fentanyl Citrate (fentaNYL INJ) 100 mcg STK-MED ONCE .ROUTE ; Start 03/04/17 at 18:24; Stop 03/04/17 at 18:25; Status DC Fentanyl Citrate (fentaNYL INJ) 250 mcg STK-MED ONCE .ROUTE ; Start 03/04/17 at 18:25; Stop 03/04/17 at 18:26; Status DC Miscellaneous Information ALL NURSING DEPARTME... UNSCH PRN .XX SEE LABEL COMMENTS; Start 03/04/17 at 19:15; Stop 03/05/17 at 19:14; Status DC Daptomycin 550 mg/ Sodium Chloride 100 ml @ 200 mls/hr Q24H IV Last administered on 04/14/17 11:37; Start 03/06/17 at 12:00 Bisacodyl (Dulcolax Supp) 10 mg DAILY PRN RECTAL SEVERE CONSITIPATION; Start at 21:00 Lactulose (Lactulose Liq) 30 ml DAILY PRN NG SEVERE CONSITIPATION Last administered on 03/07/17 18:45; Start 03/06/17 at 21:00 Docusate Sodium (Colace Liq) 100 mg Q12HR PO Last administered on 03/09/17 09: 30; Start 03/06/17 at 21:15; Status Future Hold Sodium Chloride 250 ml @ 15 mls/hr ONCE ONCE IV Last administered on 00:27; Start 03/07/17 at 19:00; Stop 03/08/17 at 12:06; Status DC Furosemide (Lasix Inj) 20 mg ONCE ONCE IV Last administered on 03/08/17t 03:49 ; Start 03/07/17 at 19:00; Stop 03/07/17 at 19:01; Status DC Polyethylene Glycol/ Electrolytes (Colyte Liq) 4,000 ml ONCE ONCE PO ; Start at 11:00; Stop 03/08/17 at 11:01; Status Cancel Mupirocin (Bactroban 2% Oint) 22 applic STK-MED ONCE .ROUTE ; Start 03/08/17 at 12:10; Stop 03/08/17 at 12:11; Status DC Lidocaine HCl (Xylocaine 2% Inj) 50 ml STK-MED ONCE .ROUTE ; Start 03/08/17 at 12:13; Stop 03/08/17 at 12:14; Status DC Bupivacaine HCl (Marcaine Pf 0.5% Inj) 30 ml STK-MED ONCE .ROUTE ; Start at 12:17; Stop 03/08/17 at 12:18; Status DC Famotidine (Pepcid Inj) 20 mg STK-MED ONCE .ROUTE ; Start 03/08/17 at 13:17; Stop 03/08/17 at 13:18; Status DC Vancomycin HCl (Vancomycin Inj) 1,000 mg STK-MED ONCE .ROUTE Last administered on 03/08/17t 14:35; Start 03/08/17 at 14:07; Stop 03/08/17 at 14:08; Status DC Sodium Chloride (Sodium Chloride 0.9% Inj) 20 ml STK-MED ONCE .ROUTE ; Start at 14:07; Stop 03/08/17 at 14:08; Status DC Vancomycin HCl (Vancomycin Inj) 1,000 mg STK-MED ONCE .ROUTE ; Start 03/08/17 at 14:42; Stop 03/08/17 at 14:43; Status DC Sodium Chloride (Sodium Chloride 0.9% Inj) 20 ml STK-MED ONCE .ROUTE ; Start at 14:42; Stop 03/08/17 at 14:43; Status DC Fentanyl Citrate (fentaNYL INJ) 500 mcg STK-MED ONCE .ROUTE ; Start 03/08/17 at 15:51; Stop 03/08/17 at 15:52; Status DC Miscellaneous Information ALL NURSING DEPARTME... UNSCH PRN .XX SEE LABEL COMMENTS; Start 03/08/17 at 15:40; Stop 03/09/17 at 15:39; Status DC Polyethylene Glycol/ Electrolytes (Colyte Liq) 4,000 ml ONCE ONCE NG Last administered on 03/08/17 22:42; Start 03/08/17 at 20:00; Stop 03/08/17 at 20:01 ; Status DC Lisinopril (Prinivil) 2.5 mg DAILY PO Last administered on 04/14/17 09:00; Start 03/09/17 at 09:00 Miscellaneous (Pill Splitter) 1 ea UNSCH PRN OTHER SEE LABEL COMMENTS; Start at 21:15 Dextrose 1,000 ml @ 84 mls/hr [id number] IV Last administered on 03/11/17 21:24 ; Start 03/09/17 at 23:45; Stop 03/11/17 at 23:38; Status DC Enoxaparin Sodium (Lovenox Inj) 40 mg Q24H SQ Last administered on 04/13/17 12 :53; Start 03/10/17 at 13:00; Status Future hold Bupivacaine HCl (Marcaine Pf 0.5% Inj) 30 ml STK-MED ONCE .ROUTE ; Start at 14:50; Stop 03/10/17 at 14:51; Status DC Lidocaine HCl (Xylocaine 2% Inj) 50 ml STK-MED ONCE .ROUTE ; Start 03/10/17 at 14:51; Stop 03/10/17 at 14:52; Status DC Bacitracin (Baciguent Oint) 15 applic STK-MED ONCE .ROUTE Last administered on 03/10/17 16:43; Start 03/10/17 at 14:51; Stop 03/10/17 at 14:52; Status DC Vancomycin HCl (Vancomycin Inj) 1,000 mg STK-MED ONCE .ROUTE Last administered on 03/10/17 15:49; Start 03/10/17 at 15:45; Stop 03/10/17 at 15:46; Status DC Sodium Chloride (Sodium Chloride 0.9% Inj) 20 ml STK-MED ONCE .ROUTE ; Start at 15:45; Stop 03/10/17 at 15:46; Status DC Neomycin/Polymyxin (Neosporin G.u. Irr) 2 ml STK-MED ONCE TOPICAL Last administered on 03/10/17 15:49; Start 03/10/17 at 15:49; Stop 03/10/17 at 15:59 ; Status DC Bacitracin (Baciguent Oint) 30 applic STK-MED ONCE .ROUTE Last administered on 03/10/17 16:44; Start 03/10/17 at 16:41; Stop 03/10/17 at 16:42; Status DC Hydromorphone HCl (Dilaudid Pf Inj) 2 mg STK-MED ONCE .ROUTE ; Start 03/10/17 at 16:47; Stop 03/10/17 at 16:48; Status DC Fentanyl Citrate (fentaNYL INJ) 250 mcg STK-MED ONCE .ROUTE ; Start 03/10/17 at 17:22; Stop 03/10/17 at 17:23; Status DC Morphine Sulfate (*morphine INJ PERIprocedure ONLY) 8 mg STK-MED ONCE .ROUTE Last administered on 03/10/17 18:12; Start 03/10/17 at 18:12; Stop 03/10/17 at 18:13; Status DC Miscellaneous Information ALL NURSING DEPARTME... UNSCH PRN .XX SEE LABEL COMMENTS; Start 03/10/17 at 14:30; Stop 03/11/17 at 14:29; Status DC Propofol (Diprivan 200 Mg/20 ml Inj) 200 mg STK-MED ONCE IV PUSH ; Start at 15:29; Stop 03/11/17 at 15:47; Status DC Oxybenzone/ Padimate O/ Dimethicone (Blistex Lip [place]) 4.25 applic STK-MED ONCE TOPICAL Last administered on 03/11/17 16:02; Start 03/11/17 at 16:02; Stop at 16:03; Status DC Miscellaneous Information ALL NURSING DEPARTME... UNSCH PRN .XX SEE LABEL COMMENTS; Start 03/11/17 at 16:00; Stop 03/12/17 at 15:59; Status DC Succinylcholine Chloride (Quelicin Inj) 200 mg STK-MED ONCE IV PUSH ; Start at 15:27; Stop 03/12/17 at 08:59; Status DC Sodium Chloride 250 ml @ 15 mls/hr ONCE ONCE IV Last administered on 10:15; Start 03/12/17 at 10:15; Stop 03/13/17 at 02:54; Status DC Acetaminophen (Tylenol) 650 mg Q4H PRN PO SEE LABEL COMMENTS; Start 03/12/17 at 10:15; Stop 03/12/17 at 14:16; Status DC Diphenhydramine HCl (Benadryl) 25 mg Q4H PRN PO SEE LABEL COMMENTS; Start 03/12 at 10:15; Stop 03/12/17 at 14:16; Status DC Potassium Chloride 100 ml @ 50 mls/hr Q2H IV Last administered on 03/12/17 13 :25; Start 03/12/17 at 11:00; Stop 03/12/17 at 14:59; Status DC Lidocaine HCl (Xylocaine 2% Inj) 50 ml STK-MED ONCE .ROUTE ; Start 03/12/17 at 13:04; Stop 03/12/17 at 13:05; Status DC Mupirocin (Bactroban 2% Oint) 22 applic STK-MED ONCE .ROUTE ; Start 03/12/17 at 13:06; Stop 03/12/17 at 13:07; Status DC Hydromorphone HCl (Dilaudid Pf Inj) 2 mg STK-MED ONCE .ROUTE ; Start 03/12/17 at 15:18; Stop 03/12/17 at 15:19; Status DC Acetaminophen (Ofirmev Inj) 1,000 mg STK-MED ONCE IV ; Start 03/12/17 at 15:18; Stop 03/12/17 at 15:19; Status DC Vancomycin HCl (Vancomycin Inj) 1,000 mg STK-MED ONCE .ROUTE Last administered on 03/12/17 15:54; Start 03/12/17 at 15:57; Stop 03/12/17 at 15:58; Status DC Neomycin/Polymyxin (Neosporin G.u. Irr) 2 ml STK-MED ONCE TOPICAL Last administered on 03/12/17 15:54; Start 03/12/17 at 15:54; Stop 03/12/17 at 16:15 ; Status DC Fentanyl Citrate (fentaNYL INJ) 250 mcg STK-MED ONCE .ROUTE ; Start 03/12/17 at 17:04; Stop 03/12/17 at 17:05; Status DC Miscellaneous Information ALL NURSING DEPARTME... UNSCH PRN .XX SEE LABEL COMMENTS; Start 03/12/17 at 17:30; Stop 03/13/17 at 17:29; Status DC Morphine Sulfate (*morphine INJ PERIprocedure ONLY) 8 mg STK-MED ONCE .ROUTE Last administered on 03/12/17 17:33; Start 03/12/17 at 17:33; Stop 03/12/17 at 17:34; Status DC Lidocaine HCl (Xylocaine 1% Inj) 10 ml ONCE@0700 ONCE OTHER ; Start 03/13/17 at 07:00; Stop 03/13/17 at 07:01; Status DC Potassium Chloride/Sodium Chloride 1,000 ml @ 75 mls/hr [id number] IV Last administered on 04/07/17 10:54; Start 03/13/17 at 11:30; Stop 04/07/17 at 13:42 ; Status DC Polyethylene Glycol/ Electrolytes (Colyte Liq) 4,000 ml ONCE ONCE PEG Last administered on 03/14/17 17:13; Start 03/14/17 at 16:00; Stop 03/14/17 at 16:01 ; Status DC Sodium Chloride 250 ml @ 15 mls/hr ONCE ONCE IV Last administered on 21:30; Start 03/13/17 at 20:00; Stop 03/14/17 at 12:39; Status DC Polyethylene Glycol/ Electrolytes (Colyte Liq) 4,000 ml ONCE ONCE PO Last administered on 03/15/17 17:19; Start 03/15/17 at 16:45; Stop 03/15/17 at 16:48 ; Status DC Propofol (Diprivan 200 Mg/20 ml Inj) 180 mg ONCE ONCE IV Last administered on 03/15/17 16:45; Start 03/15/17 at 16:43; Stop 03/15/17 at 16:45; Status DC Sodium Biphosphate/ Sodium Phosphate (Fleets Enema (Adult)) 133 ml ONCE ONCE RECTAL Last administered on 03/16/17 14:45; Start 03/16/17 at 14:15; Stop at 14:21; Status DC Sodium Biphosphate/ Sodium Phosphate (Fleets Enema (Adult)) 133 ml ONCE ONCE RECTAL Last administered on 03/17/17 09:49; Start 03/17/17 at 08:00; Stop at 08:01; Status DC Propofol (Diprivan 200 Mg/20 ml Inj) 100 mg ONCE ONCE IV PUSH ; Start at 15:00; Stop 03/16/17 at 15:01; Status DC Midazolam HCl (Versed Inj) 2 mg STK-MED ONCE .ROUTE ; Start 03/16/17 at 15:34; Stop 03/16/17 at 15:35; Status DC Vancomycin HCl (Vancomycin Inj) 1,000 mg STK-MED ONCE .ROUTE Last administered on 03/18/17 18:58; Start 03/18/17 at 18:15; Stop 03/18/17 at 18:16; Status DC Fentanyl Citrate (fentaNYL INJ) 200 mcg STK-MED ONCE .ROUTE ; Start 03/18/17 at 19:50; Stop 03/18/17 at 19:51; Status DC Methocarbamol (Robaxin) 500 mg Q8HR PO Last administered on 04/14/17 05:25; Start 03/19/17 at 14:00 Acetaminophen 100 ml @ As Directed STK-MED ONCE IV ; Start 03/24/17 at 09:21; Stop 03/24/17 at 09:22; Status DC Midazolam HCl (Versed Inj) 2 mg STK-MED ONCE .ROUTE ; Start 03/24/17 at 09:21; Stop 03/24/17 at 09:22; Status DC Fentanyl Citrate (fentaNYL INJ) 100 mcg STK-MED ONCE .ROUTE ; Start 03/24/17 at 09:21; Stop 03/24/17 at 09:22; Status DC Fentanyl Citrate (fentaNYL INJ) 100 mcg STK-MED ONCE .ROUTE ; Start 03/24/17 at 09:21; Stop 03/24/17 at 09:22; Status DC Hydromorphone HCl (*DILAUDID PF INJ PERIprocedural ONLY) 1 mg STK-MED ONCE .ROUTE Last administered on 03/24/17 14:53; Start 03/24/17 at 14:53; Stop at 14:54; Status DC Meperidine HCl (*DEMEROL INJ PERIprocedural ONLY) 25 mg STK-MED ONCE .ROUTE Last administered on 03/24/17 15:01; Start 03/24/17 at 15:01; Stop 03/24/17 at 15:02; Status DC Fentanyl Citrate (fentaNYL INJ) 400 mcg STK-MED ONCE .ROUTE ; Start 03/24/17 at 15:01; Stop 03/24/17 at 15:02; Status DC Miscellaneous Information ALL NURSING DEPARTME... UNSCH PRN .XX SEE LABEL COMMENTS; Start 03/24/17 at 14:52; Stop 03/25/17 at 14:51; Status DC Polyethylene Glycol (Miralax) 17 gm DAILY PO ; Start 03/24/17 at 16:30; Status Cancel Acetaminophen (Tylenol) 650 mg Q4H PRN PO fever Last administered on 03/25/17 10:02; Start 03/25/17 at 10:00 Piperacillin Sod/ Tazobactam Sod 100 ml @ 200 mls/hr Q8H IV Last administered on 03/29/17 12:36; Start 03/25/17 at 20:00; Stop 03/29/17 at 14:34; Status DC Furosemide (Lasix Inj) 10 mg ONCE ONCE IV PUSH Last administered on 03/26/17 13:47; Start 03/26/17 at 13:30; Stop 03/26/17 at 13:34; Status DC Furosemide (Lasix Inj) 10 mg UNSCH X1 IV PUSH Last administered on 03/27/17 01 :31; Start 03/26/17 at 17:15; Stop 03/26/17 at 23:59; Status DC Levothyroxine Sodium (Synthroid) 50 mcg DAILY@0600 PO Last administered on 04/14 05:25; Start 03/30/17 at 06:00 Levothyroxine Sodium (Synthroid) 50 mcg ONCE ONCE PO Last administered on 12:55; Start 03/29/17 at 12:00; Stop 03/29/17 at 12:02; Status DC Levofloxacin (Levaquin) 500 mg DAILY PO Last administered on 04/07/17 08:46; Start 03/29/17 at 14:45; Stop 04/07/17 at 14:44; Status DC Propofol (Diprivan 200 Mg/20 ml Inj) 200 mg STK-MED ONCE IV ; Start 02/26/17 at 12:00; Stop 03/30/17 at 13:17; Status DC Neostigmine Methylsulfate (Prostigmin Inj) 3 mg STK-MED ONCE IV ; Start 02/26/17 at 12:00; Stop 03/30/17 at 13:17; Status DC Phenylephrine HCl (Neosynephrine/ NS 1000 Mcg/10ml Syr) 1,000 mcg STK-MED ONCE IV ; Start 02/26/17 at 12:00; Stop 03/30/17 at 13:17; Status DC Lactated Ringer's 2,000 ml @ As Directed STK-MED ONCE IV ; Start 02/26/17 at 12: 00; Stop 03/30/17 at 13:17; Status DC Propofol (Diprivan 200 Mg/20 ml Inj) 200 mg STK-MED ONCE IV ; Start 02/28/17 at 12:00; Stop 03/30/17 at 13:46; Status DC Neostigmine Methylsulfate (Prostigmin Inj) 3 mg STK-MED ONCE IV ; Start 02/28/17 at 12:00; Stop 03/30/17 at 13:46; Status DC Lactated Ringer's 2,000 ml @ As Directed STK-MED ONCE IV ; Start 02/28/17 at 12: 00; Stop 03/30/17 at 13:46; Status DC Propofol (Diprivan 200 Mg/20 ml Inj) 400 mg STK-MED ONCE IV ; Start 03/04/17 at 12:00; Stop 03/30/17 at 14:07; Status DC Ephedrine Sulfate (ePHEDrine/NS 25 MG/5 ML SYR) 25 mg STK-MED ONCE IV ; Start at 12:00; Stop 03/30/17 at 14:07; Status DC Phenylephrine HCl (Neosynephrine/ NS 1000 Mcg/10ml Syr) 2,000 mcg STK-MED ONCE IV ; Start 03/04/17 at 12:00; Stop 03/30/17 at 14:08; Status DC Ondansetron HCl (Zofran Inj) 4 mg STK-MED ONCE IV PUSH ; Start 03/04/17 at 12:00 ; Stop 03/30/17 at 14:08; Status DC Propofol (Diprivan 200 Mg/20 ml Inj) 200 mg STK-MED ONCE IV ; Start 03/08/17 at 12:00; Stop 03/30/17 at 14:49; Status DC Ephedrine Sulfate (ePHEDrine/NS 25 MG/5 ML SYR) 50 mg STK-MED ONCE IV ; Start at 12:00; Stop 03/30/17 at 14:49; Status DC Neostigmine Methylsulfate (Prostigmin Inj) 4 mg STK-MED ONCE IV ; Start at 12:00; Stop 03/30/17 at 14:49; Status DC Phenylephrine HCl (Neosynephrine/ NS 1000 Mcg/10ml Syr) 1,000 mcg STK-MED ONCE IV ; Start 03/08/17 at 12:00; Stop 03/30/17 at 14:49; Status DC Ondansetron HCl (Zofran Inj) 4 mg STK-MED ONCE IV PUSH ; Start 03/08/17 at 12:00 ; Stop 03/30/17 at 14:49; Status DC Lactated Ringer's 1,000 ml @ As Directed STK-MED ONCE IV ; Start 03/08/17 at 12 :00; Stop 03/30/17 at 14:49; Status DC Propofol (Diprivan 200 Mg/20 ml Inj) 200 mg STK-MED ONCE IV ; Start 03/10/17 at 12:00; Stop 03/30/17 at 15:08; Status DC Ephedrine Sulfate (ePHEDrine/NS 25 MG/5 ML SYR) 25 mg STK-MED ONCE IV ; Start at 12:00; Stop 03/30/17 at 15:08; Status DC Neostigmine Methylsulfate (Prostigmin Inj) 3 mg STK-MED ONCE IV ; Start at 12:00; Stop 03/30/17 at 15:08; Status DC Phenylephrine HCl (Neosynephrine/ NS 1000 Mcg/10ml Syr) 2,000 mcg STK-MED ONCE IV ; Start 03/10/17 at 12:00; Stop 03/30/17 at 15:08; Status DC Ondansetron HCl (Zofran Inj) 4 mg STK-MED ONCE IV PUSH ; Start 03/10/17 at 12:00 ; Stop 03/30/17 at 15:08; Status DC Lactated Ringer's 1,000 ml @ As Directed STK-MED ONCE IV ; Start 03/10/17 at 12 :00; Stop 03/30/17 at 15:08; Status DC Sodium Chloride 1,000 ml @ As Directed STK-MED ONCE IV ; Start 03/10/17 at 12: 00; Stop 03/30/17 at 15:08; Status DC Propofol (Diprivan 200 Mg/20 ml Inj) 200 mg STK-MED ONCE IV ; Start 03/12/17 at 12:00; Stop 03/30/17 at 15:20; Status DC Ephedrine Sulfate (ePHEDrine/NS 25 MG/5 ML SYR) 25 mg STK-MED ONCE IV ; Start at 12:00; Stop 03/30/17 at 15:20; Status DC Phenylephrine HCl (Neosynephrine/ NS 1000 Mcg/10ml Syr) 1,000 mcg STK-MED ONCE IV ; Start 03/12/17 at 12:00; Stop 03/30/17 at 15:20; Status DC Ondansetron HCl (Zofran Inj) 4 mg STK-MED ONCE IV PUSH ; Start 03/12/17 at 12:00 ; Stop 03/30/17 at 15:20; Status DC Lactated Ringer's 1,000 ml @ As Directed STK-MED ONCE IV ; Start 03/12/17 at 12 :00; Stop 03/30/17 at 15:20; Status DC Propofol (Diprivan 200 Mg/20 ml Inj) 200 mg STK-MED ONCE IV ; Start 03/18/17 at 12:00; Stop 03/30/17 at 15:38; Status DC Ondansetron HCl (Zofran Inj) 4 mg STK-MED ONCE IV PUSH ; Start 03/18/17 at 12:00 ; Stop 03/30/17 at 15:38; Status DC Neostigmine Methylsulfate (Prostigmin Inj) 3 mg STK-MED ONCE IV ; Start at 12:00; Stop 03/30/17 at 15:38; Status DC Phenylephrine HCl (Neosynephrine/ NS 1000 Mcg/10ml Syr) 1,000 mcg STK-MED ONCE IV ; Start 03/18/17 at 12:00; Stop 03/30/17 at 15:38; Status DC Oxycodone/ Acetaminophen (Percocet 5-325 Mg) 1 tab Q4H PRN PO pain 3 to 5; Start 04/02/17 at 13:00; Stop 04/09/17 at 17:08; Status DC Oxycodone/ Acetaminophen (Percocet 10-325 Mg) 1 tab Q4H PRN PO pain 6-10 Last administered on 04/09/17 14:14; Start 04/02/17 at 13:00; Stop 04/09/17 at 17:08 ; Status DC Magnesium Sulfate/ Dextrose 100 ml @ 100 mls/hr Q1H IV Last administered on 16:15; Start 04/03/17 at 14:00; Stop 04/03/17 at 15:59; Status DC Sodium Chloride (Sodium Chloride) 1 gm TID PO Last administered on 04/07/17 13 :24; Start 04/04/17 at 14:00; Stop 04/07/17 at 13:45; Status DC Calcium Chloride 2 gm/Sodium Chloride 120 ml @ 120 mls/hr ONCE ONCE IV Last administered on 04/04/17 15:45; Start 04/04/17 at 14:00; Stop 04/04/17 at 14:59 ; Status DC Hydromorphone HCl (Dilaudid Pf Inj) 0.2 mg Q6H PRN IV PUSH breakthrough pain Last administered on 04/13/17 03:27; Start 04/09/17 at 17:15; Stop 04/13/17 at 03:27; Status DC Acetaminophen/ Hydrocodone Bitart ([place] 7.5-325 Mg) 1 tab Q4H PRN PO PAIN 6- 10 Last administered on 04/14/17 05:25; Start 04/09/17 at 17:15 Acetaminophen/ Hydrocodone Bitart ([place] 5-325 Mg) 1 tab Q4H PRN PO PAIN 3-5; Start 04/09/17 at 17:15 Tolvaptan (Samsca) 15 mg ONCE ONCE PO Last administered on 04/09/17 22:49; Start 04/09/17 at 19:30; Stop 04/09/17 at 19:32; Status DC Carvedilol (Coreg) 6.25 mg Q12HR PO Last administered on 04/14/17 09:00; Start 04/10/17 at 09:00 Clonidine (Catapres) 0.2 mg Q8H PO Last administered on 04/14/17 11:36; Start 04/10/17 at 20:00 A/P Assessment and Plan A/P Hyponatremia-sodium level trending down. change fluid restriction to 1200 ml/day. patient previously received Tolvaptan- sodium level tomorrow. 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 distant showering of emboli to other joints. MRSA bacteremia Right ankle hardware infection, s/p partial removal of hardware. Deeper hardware embedded. SP RIGHT BKA Bilateral UE hand abscess and tenosynovitis, septic arthritis s.p multiple debridements. continue Daptomycin till 04/24/17 per ID Continue pain control. ID following Multiple surgeries thus far: - podiatry Dr. Reyes/Dr. Gamez on 02/26, 02/28, 03/04 - hand surgeon Dr. Bullock on 02/26, 02/28, 03/04, 03/08, 03/10 -right BKA Anemia Follow CBC Status post blood transfusion Acute Toxic/Metabolic Encephalopathy secondary to Sepsis-improved. Acute Alcohol Withdrawal - improved Hypertension Continue clonidine and Coreg, cardiology initiate low dose lisinopril, monitor renal function Follow blood pressures Adjust as needed for control Mild Systolic CHF Scrotal edema EF of 40-45% with global hypokinesis found on 02/28/17 Continue beta amarjit HYPOTHYROIDISM continue synthroid THADDEUS mostly vanco induced - resolved Monitor renal function Avoid nephrotoxins Previous event was likely secondary to ATN Nephrology following Hepatitis C- f/u as outpatient. Standard precautions DVT Prophylaxis Lovenox Discharge Planning previously d/w the case management; has to stay inpatient while receiving IV antibiotics. Flaca Houser MD Apr 14, 2017 12:14
[2017-04-14] MEDS: ENOXAPARIN SODIUM 40 MG/0.4 ML SYRINGE SQ SCH (14:20)
[2017-04-14 16:00] VITALS: BP 121/58; PULSE 60; RESP 18; TEMP 98.8; O2SAT 99
[2017-04-14 20:00] VITALS: BP 142/81; PULSE 79; RESP 20; TEMP 98; O2SAT 95
[2017-04-14] MEDS: MUPIROCIN 2% OINT 1 APPLIC/GM SYR NASAL SCH (22:03)
[2017-04-15] VITALS: BP 114/63; PULSE 59; RESP 16; TEMP 98.2; O2SAT 99
[2017-04-15] MEDS: PANTOPRAZOLE SODIUM 40 MG VIAL IV PUSH SCH ×2 (00:29→22:50)
[2017-04-15] MEDS: ACETAMINOPHEN/HYDROcodone 325 MG/7.5 MG TAB PO PRN ×4 (02:26→22:49)
[2017-04-15 04:00] VITALS: BP 134/73; PULSE 63; RESP 20; TEMP 97.7; O2SAT 98
[2017-04-15] MEDS: cloNIDine HCL 0.2 MG TAB PO SCH ×3 (04:19→20:50)
[2017-04-15] MEDS: LEVOTHYROXINE SODIUM 50 MCG TAB PO SCH (06:11)
[2017-04-15] MEDS: METHOCARBAMOL 500 MG TAB PO SCH ×3 (06:12→20:50)
[2017-04-15 08:00] VITALS: BP_SYST 124; BP_SYST 132; BP_DIAS 59; BP_DIAS 60; PULSE 58; PULSE 61; RESP 20; TEMP 98.4; O2SAT 98
[2017-04-15] MEDS: MUPIROCIN 2% OINT 1 APPLIC/GM SYR NASAL SCH ×2 (08:45→20:51)
[2017-04-15] MEDS: MULTIVITAMIN TAB PO SCH (08:46)
[2017-04-15] MEDS: THIAMINE HCL 100 MG TAB PO SCH (08:46)
[2017-04-15] MEDS: LISINOPRIL 5 MG TAB PO SCH (08:46)
[2017-04-15] MEDS: CARVEDILOL 6.25 MG TAB PO SCH ×2 (08:46→20:50)
--- NOTE | 2017-04-15 11:07 | HHI.PR ---
Subjective Remarks in no acute distress. although looks fairly comfortable complaining of back spasm. afebrile. Objective Vitals Vital Signs Date Time Temp Pulse Resp B/P (MAP) Pulse Ox O2 Delivery O2 Flow Rate FiO2 04/15/17 08:00 98.4 58 20 132/60 (84) 98 04/15/17 04:00 97.7 63 20 134/73 (93) 98 04/15/17 00:00 98.2 59 16 114/63 (80) 99 04/14/17 20:00 98.0 79 20 142/81 (101) 95 04/14/17 16:00 98.8 60 18 121/58 (79) 99 04/14/17 12:00 98.7 61 18 128/75 (92) 98 I/O 04/14/17 04/14/17 04/14/17 04/15/17 04/15/17 04/15/17 07:00 15:00 23:00 07:00 15:00 23:00 Intake Total 960 ml 680 ml Output Total 1550 ml 1100 ml 1500 ml Balance -1550 ml -140 ml -820 ml Intake Oral 960 ml 680 ml Output Urine Total 1550 ml 1100 ml 1500 ml Bladder Scan Volume Amount 499 ml # Bowel Movements 1 0 Result Diagram: 04/13/17 1014 04/15/17 0817 Imaging Last Impressions Chest X-Ray 03/29/17 0000 Signed Impressions: Service Date/Time: Wednesday, March 29, 2017 12:17 - CONCLUSION: Stable chest. Isaac Stevenson MD FACR Tumor Localization 03/22/17 0000 Signed Impressions: Service Date/Time: Wednesday, March 22, 2017 13:03 - CONCLUSION: Nondiagnostic examination secondary to patient refusal Harry Lucio MD Abdomen X-Ray 03/08/17 0000 Signed Impressions: Service Date/Time: Wednesday, March 08, 2017 10:30 - CONCLUSION: Nonspecific, negative for obstruction or ileus. Isaac Stevenson MD FACR Lower Extremity CT 03/01/17 0000 Signed Impressions: Service Date/Time: Wednesday, March 01, 2017 11:12 - CONCLUSION: 1. No evidence of organized fluid collections to suggest an abscess. 2. Extensive soft tissue swelling surrounding the ankle and extending to the forefoot especially along the lateral aspect. 3. No erosive or destructive bone changes. 4. Bone defects compatible with previous excision device. Blake Rider MD Ankle X-Ray 02/26/17 0000 Signed Impressions: Service Date/Time: Sunday, February 26, 2017 17:15 - CONCLUSION: I see no retained surgical instruments. Isaac Stevenson MD FACR Upper Extremity Ultrasound 02/25/17 1734 Signed Impressions: Service Date/Time: February 17:54 - CONCLUSION: There is a thin fluid collection within the focal area of soft tissue swelling 2nd digit. Oscar Cassidy MD Hand X-Ray 02/25/17 0000 Signed Impressions: Service Date/Time: February 18:59 - CONCLUSION: No gross bony abnormality. Oscar Cassidy MD Lower Extremity Ultrasound 02/24/17 0000 Signed Impressions: Service Date/Time: Friday, February 24, 2017 13:41 - CONCLUSION: Negative for deep venous thrombosis. Isaac Stevenson MD FACR Head CT 02/24/17 0000 Signed Impressions: Service Date/Time: Friday, February 24, 2017 16:08 - CONCLUSION: 1. No acute intracranial abnormality. 2. Probable large mucocele in the sphenoid sinus. Ty Hankins MD Abdomen/Pelvis CT 02/24/17 0000 Signed Impressions: Service Date/Time: Friday, February 24, 2017 16:16 - CONCLUSION: 1. Marked gaseous distension of large and small bowel most suggestive of ileus. 2. There is no free air. 3. 2.2 cm left adrenal mass. 4. Distended bladder. Isaac Stevenson MD FACR Objective Remarks GENERAL: This is a well-nourished, well-developed patient, in no apparent distress. CARDIOVASCULAR: Regular rate and regular rhythm without murmurs, gallops, or rubs. RESPIRATORY: Clear to auscultation. Breath sounds equal bilaterally. No wheezes , rales, or rhonchi. GASTROINTESTINAL: Abdomen soft, non-tender, nondistended. Normal, active bowel sounds MUSCULOSKELETAL: right forearm covered with clean dressing- s/p right BKA NEURO: Alert & Oriented x4 to person, place, time, situation. Moves all ext x4 Procedures 03/10/2017 - Dr. Bullock exploration, wash, excisional debridement extensor tenosynovium right wrist/forearm/hand 03/08/17 - Dr. Bullock- exploration, wash, excisional debridement skin, subcutaneous tissue, extensor tenosynovitis right wrist and hand. Findings: necrotic tissue, minimal purulence, extensor tenosynovitis right wrist/hand 03/04/17 - Dr Gamez - Right leg and incision and drainage. Right foot delayed primary closure x3 03/04/17 - Dr. Bullock - Extensor tenosynovectomy second, third, fourth extensor compartments right wrist and excisional debridement wash index finger metacarpal phalangeal joint, excisional wash and excisional debridement left hand. 02/28/17 - Dr. Reyes - Right ankle wound debridement and washout. Implantation of antibiotic vancomycin beads. 02/28/17 - Dr. Bullock - Exploration, wash, excisional debridement index finger metacarpophalangeal joint right hand; Exploration, wash, excisional debridement metacarpophalangeal joint left index finger; Exploration, wash, excisional debridement extensor pollicis longus tendon right thumb and hand. 02/26/17 - Dr. Reyes - Right ankle incision and drainage, arthrotomy, removal infected hardware, bone biopsy. 02/26/17 - Dr. Bullock - Exploration, incision and drainage right hand abscess, Arthrotomy wash metacarpal phalangeal joint right index finger, Arthrotomy wash metacarpal phalangeal joint left index finger. Medications and IVs Current Medications Sodium Chloride 1,000 ml @ 999 mls/hr BOLUS ONCE IV Last administered on 13:38; Start 02/24/17 at 13:45; Stop 02/24/17 at 14:45; Status DC IV Flush (NS Flush) 2 ml UNSCH PRN IV FLUSH FLUSH AFTER USING IV ACCESS Last administered on 02/24/17 13:38; Start 02/24/17 at 13:45 Vancomycin HCl 1000 mg/Sodium Chloride 250 ml @ 250 mls/hr ONCE STAT IV Last administered on 02/24/17 15:49; Start 02/24/17 at 15:35; Stop 02/24/17 at 16:34; Status DC Cefepime HCl 2000 mg/Sodium Chloride 100 ml @ 200 mls/hr ONCE STAT IV Last administered on 02/24/17 16:36; Start 02/24/17 at 15:35; Stop 02/24/17 at 16:04; Status DC Potassium Bicarb/ Potassium Chloride (K-Lyte Cl Eff) 50 meq ONCE ONCE PO Last administered on 02/24/17 15:56; Start 02/24/17 at 16:00; Stop 02/24/17 at 16: 01; Status DC Iohexol (Omnipaque 350 Inj) 97 ml STK-MED ONCE IV Last administered on 16:29; Start 02/24/17 at 16:29; Stop 02/24/17 at 16:30; Status DC Sodium Chloride 1,000 ml @ 125 mls/hr Q8H IV Last administered on 03/02/17 09: 33; Start 02/24/17 at 18:00; Stop 03/02/17 at 13:08; Status DC Ondansetron HCl (Zofran Inj) 4 mg Q8HR PRN IV PUSH NAUSEA; Start 02/24/17 at 18: 00 Thiamine HCl (Vitamin B1) 100 mg ONCE ONCE PO Last administered on 02/24/17 20 :20; Start 02/24/17 at 20:15; Stop 02/24/17 at 20:16; Status DC Thiamine HCl (Vitamin B1) 100 mg DAILY PO Last administered on 04/15/17 08:46 ; Start 02/25/17 at 09:00 Potassium Chloride 100 ml @ 50 mls/hr Q2H IV Last administered on 02/24/17 22: 59; Start 02/24/17 at 20:30; Stop 02/25/17 at 00:29; Status DC Pharmacy Profile Note 0 ml @ 0 mls/hr UNSCH OTHER ; Start 02/24/17 at 20:15; Stop 03/02/17 at 13:23; Status DC Cefepime HCl 2000 mg/Sodium Chloride 100 ml @ 200 mls/hr Q12H IV Last administered on 02/27/17 05:51; Start 02/25/17 at 07:00; Stop 02/27/17 at 14:53; Status DC Vancomycin HCl 1500 mg/Sodium Chloride 515 ml @ 257.5 mls/ hr Q18H IV Last administered on 02/25/17 10:30; Start 02/25/17 at 10:00; Stop 02/25/17 at 11:30; Status DC Miscellaneous Information SPECIFIC LAB TO BE DRAWN:EDO TROUGH DATE TO BE DRLaurence.. ONCE ONCE .XX ; Start 02/26/17 at 21:45; Stop 02/26/17 at 21:46; Status DC Flumazenil (Romazicon Inj) 0.2 mg Q1M PRN IV PUSH SEE LABEL COMMENTS; Start 02/25/17 at 09:15 Lorazepam (Ativan) 1 mg Q4H PRN PO agitation Last administered on 03/20/17 03: 18; Start 02/25/17 at 09:15 Lorazepam (Ativan Inj) 1 mg Q4H PRN IV PUSH agitation when not taking po Last administered on 03/05/17 02:41; Start 02/25/17 at 09:15 Lorazepam (Ativan) 2 mg Q2H PRN PO CIWA 11-14; Start 02/25/17 at 09:15; Stop 02/28/17 at 07:44; Status DC Lorazepam (Ativan Inj) 2 mg Q2H PRN IV PUSH CIWA 11-14 Last administered on 02/26 18:14; Start 02/25/17 at 09:15; Stop 02/28/17 at 07:44; Status DC Lorazepam (Ativan Inj) 2 mg Q1H PRN IV PUSH CIWA 15-20 Last administered on 02/25 21:37; Start 02/25/17 at 09:15; Stop 02/28/17 at 07:44; Status DC Lorazepam (Ativan Inj) 2 mg Q15M PRN IV PUSH CIWA > 20 Last administered on 02/26 06:25; Start 02/25/17 at 09:15; Stop 02/28/17 at 07:44; Status DC Multivitamins (Theragran) 1 tab DAILY PO Last administered on 04/15/17 08:46; Start 02/26/17 at 09:00 Acetaminophen (Tylenol) 650 mg Q4H PRN PO FEVER Last administered on 03/07/17 04:47; Start 02/25/17 at 09:15; Stop 03/12/17 at 10:47; Status DC Lisinopril (Prinivil) 10 mg DAILY PO ; Start 02/26/17 at 09:00; Stop 03/08/17 at 21:09; Status DC Enoxaparin Sodium (Lovenox Inj) 40 mg Q24H SQ Last administered on 03/07/17 10 :00; Start 02/25/17 at 10:00; Stop 03/10/17 at 12:17; Status DC Vancomycin HCl 1500 mg/Sodium Chloride 515 ml @ 257.5 mls/ hr Q12H IV Last administered on 02/26/17 09:42; Start 02/25/17 at 22:00; Stop 02/26/17 at 12:06; Status DC Miscellaneous Information SPECIFIC LAB TO BE BIA... ONCE ONCE .XX Last administered on 02/26/17 09:45; Start 02/26/17 at 09:45; Stop 02/26/17 at 09:46; Status DC Chlordiazepoxide (Librium) 25 mg Q8H PO ; Start 02/25/17 at 17:00; Stop 02/25/17 at 20:24; Status DC Gentamicin Sulfate 70 mg/ Sodium Chloride 101.75 ml @ 100 mls/ hr ONCE ONCE IV Last administered on 02/25/17 18:51; Start 02/25/17 at 18:30; Stop 02/25/17 at 19:31; Status DC Dexmedetomidine HCl 200 mcg/ Sodium Chloride 52 ml @ 0 mls/hr TITRATE IV Last administered on 02/27/17 13:55; Start 02/25/17 at 17:30; Stop 03/09/17 at 23:34; Status DC Acetaminophen (Ofirmev Inj) 650 mg Q6H PRN IV TEMP >101 Last administered on 20:12; Start 02/25/17 at 21:00 Iohexol (Omnipaque 350 Inj) 75 ml STK-MED ONCE IV Last administered on 21:15; Start 02/25/17 at 21:15; Stop 02/25/17 at 21:16; Status DC Potassium Chloride 100 ml @ 50 mls/hr Q2H PRN IV For Potassium 2.8 - 3.2 mEq/L ; Start 02/25/17 at 22:45; Stop 03/01/17 at 23:53; Status DC Potassium Chloride 100 ml @ 50 mls/hr Q2H PRN IV For Potassium 2.8 - 3.2 mEq/ L Last administered on 02/28/17 12:32; Start 02/25/17 at 22:45; Stop 03/01/17 at 23:53; Status DC Potassium Bicarb/ Potassium Chloride (K-Lyte Cl Eff) 50 meq UNSCH PRN PO For Potassium 3.3 - 3.5 mEq/L; Start 02/25/17 at 22:45; Stop 03/01/17 at 23:53; Status DC Potassium Chloride 100 ml @ 25 mls/hr UNSCH PRN IV For Potassium 3.3 - 3.5 mEq /L; Start 02/25/17 at 22:45; Stop 03/01/17 at 23:53; Status DC Potassium Chloride 100 ml @ 50 mls/hr Q2H PRN IV For Potassium 3.3 - 3.5 mEq/ L Last administered on 02/28/17 06:39; Start 02/25/17 at 22:45; Stop 03/01/17 at 23:53; Status DC Magnesium Sulfate 4 gm/Sodium Chloride 100 ml @ 50 mls/hr UNSCH PRN IV For Magnesium 0.9 - 1.1 mg/dL; Start 02/25/17 at 22:45; Stop 03/01/17 at 23:53; Status DC Magnesium Oxide (Mag-Ox) 800 mg UNSCH PRN PO For Magnesium 1.2 - 1.6 mg/dL; Start 02/25/17 at 22:45; Stop 03/01/17 at 23:53; Status DC Magnesium Sulfate 2 gm/Sodium Chloride 100 ml @ 50 mls/hr UNSCH PRN IV For Magnesium 1.2 - 1.6 mg/dL; Start 02/25/17 at 22:45; Stop 03/01/17 at 23:53; Status DC Potassium Phosphate (K-Phos) 2,000 mg Q4H PRN PO For Phosphorus < 2.5 mg/dL; Start 02/25/17 at 22:45; Stop 03/01/17 at 23:53; Status DC Sodium Phosphate 30 mmol/Sodium Chloride 250 ml @ 42 mls/hr UNSCH PRN IV For Phosphorus < 2.5 mg/dL Last administered on 02/26/17 23:19; Start 02/25/17 at 22: 45; Stop 03/01/17 at 23:53; Status DC Potassium Phosphate (K-Phos) 2,000 mg UNSCH PRN PO/TUBE SEE LABEL COMMENTS; Start 02/25/17 at 22:45; Stop 03/01/17 at 23:53; Status DC Potassium Phosphate 30 mmol/ Sodium Chloride 260 ml @ 42 mls/hr UNSCH PRN IV SEE LABEL COMMENTS; Start 02/25/17 at 22:45; Stop 03/01/17 at 23:53; Status DC Labetalol HCl (Trandate Inj) 10 mg Q6H PRN IV PUSH SBP >165; Start 02/25/17 at 23:15 Pantoprazole Sodium (Protonix Inj) 40 mg Q24H IV PUSH Last administered on 04/15 00:29; Start 02/26/17 at 00:00 Miscellaneous Information Patient in critical care unit? Ass... [id number] .XX ; Start 02/26/17 at 07:15 Mupirocin (Bactroban Nasal 2% Oint) 1 applic BID NASAL Last administered on 08:45; Start 02/26/17 at 09:00 Chlorhexidine Gluconate (Chlorhexidine 2% Cloth) 3 pack DAILY@04 TOPICAL Last administered on 03/03/17 04:00; Start 02/27/17 at 04:00; Stop 03/03/17 at 04:01; Status DC Chlorhexidine Gluconate (Chlorhexidine 2% Cloth) 3 pack UNSCH PRN TOPICAL HYGIENIC CARE; Start 02/26/17 at 07:15; Stop 03/03/17 at 07:07; Status DC Lidocaine HCl (Xylocaine 2% Inj) 50 ml STK-MED ONCE .ROUTE ; Start 02/26/17 at 09 :35; Stop 02/26/17 at 09:36; Status DC Bupivacaine HCl (Marcaine Pf 0.5% Inj) 60 ml STK-MED ONCE .ROUTE ; Start at 09:35; Stop 02/26/17 at 09:36; Status DC Mupirocin (Bactroban 2% Oint) 22 applic STK-MED ONCE .ROUTE ; Start 02/26/17 at 09:35; Stop 02/26/17 at 09:36; Status DC Vancomycin HCl 1250 mg/Sodium Chloride 262.5 ml @ 250 mls/hr Q12H IV Last administered on 03/02/17 09:33; Start 02/26/17 at 22:00; Stop 03/02/17 at 13:23; Status DC Miscellaneous Information SPECIFIC LAB TO BE BIA... ONCE ONCE .XX Last administered on 02/27/17 22:46; Start 02/27/17 at 21:45; Stop 02/27/17 at 21:46; Status DC Neomycin/Polymyxin (Neosporin G.u. Irr) 3 ml STK-MED ONCE TOPICAL Last administered on 02/26/17 13:06; Start 02/26/17 at 13:06; Stop 02/26/17 at 16:26; Status DC Neomycin/Polymyxin (Neosporin G.u. Irr) 4 ml STK-MED ONCE TOPICAL Last administered on 02/26/17 15:47; Start 02/26/17 at 15:47; Stop 02/26/17 at 16:26; Status DC Fentanyl Citrate (fentaNYL INJ) 250 mcg STK-MED ONCE .ROUTE ; Start 02/26/17 at 18:16; Stop 02/26/17 at 18:17; Status DC Fentanyl Citrate (fentaNYL INJ) 100 mcg STK-MED ONCE .ROUTE ; Start 02/26/17 at 18:16; Stop 02/26/17 at 18:17; Status DC Miscellaneous Information ALL NURSING DEPARTME... UNSCH PRN .XX SEE LABEL COMMENTS; Start 02/26/17 at 17:57; Stop 02/27/17 at 17:56; Status DC Clonidine (Catapres) 0.3 mg Q8HR PO Last administered on 04/10/17 12:33; Start 02/26/17 at 22:11; Stop 04/10/17 at 12:52; Status DC Diazepam (Valium) 5 mg Taper DAILY PO Last administered on 03/06/17 09:49; Start 02/26/17 at 22:15; Stop 03/06/17 at 22:14; Status DC Water (Free Water) 200 ml Q8HR G-TUBE Last administered on 02/27/17 22:31; Start 02/27/17 at 06:55; Stop 02/28/17 at 07:41; Status DC Rifampin 300 mg/ Sodium Chloride 100 ml @ 100 mls/hr Q12H IV Last administered on 03/02/17 14:41; Start 02/27/17 at 15:00; Stop 03/02/17 at 16:41; Status DC Oxycodone HCl (Roxicodone) 5 mg Q4H PRN PO pain 1-5 Last administered on 09:26; Start 02/28/17 at 07:45; Stop 04/09/17 at 17:08; Status DC Hydromorphone HCl (Dilaudid Pf Inj) 0.5 mg Q3H PRN IV PUSH pain 6-10 or not taking po Last administered on 04/09/17 16:51; Start 02/28/17 at 07:45; Stop at 17:08; Status DC Water (Free Water) 300 ml Q4HR G-TUBE Last administered on 03/02/17 20:00; Start 02/28/17 at 08:00; Stop 03/02/17 at 23:07; Status DC Vancomycin HCl (Vancomycin Inj) 1,000 mg STK-MED ONCE .ROUTE Last administered on 02/28/17 09:01; Start 02/28/17 at 09:01; Stop 02/28/17 at 09:02; Status DC Vancomycin HCl (Vancomycin Inj) 1,000 mg STK-MED ONCE .ROUTE Last administered on 02/28/17 09:33; Start 02/28/17 at 09:33; Stop 02/28/17 at 09:34; Status DC Vancomycin HCl (Vancomycin Inj) 1,000 mg STK-MED ONCE .ROUTE Last administered on 02/28/17 09:36; Start 02/28/17 at 09:33; Stop 02/28/17 at 09:34; Status DC Daptomycin 450 mg/ Sodium Chloride 100 ml @ 200 mls/hr Q24H IV Last administered on 03/05/17 13:41; Start 02/28/17 at 12:00; Stop 03/05/17 at 18:00 ; Status DC Vancomycin HCl (Vancomycin Inj) 1,000 mg STK-MED ONCE .ROUTE Last administered on 02/28/17 10:45; Start 02/28/17 at 10:42; Stop 02/28/17 at 10:43; Status DC Vancomycin HCl (Vancomycin Inj) 500 mg STK-MED ONCE .ROUTE Last administered on 02/28/17 10:45; Start 02/28/17 at 10:42; Stop 02/28/17 at 10:43; Status DC Fentanyl Citrate (fentaNYL INJ) 250 mcg STK-MED ONCE .ROUTE ; Start 02/28/17 at 11:48; Stop 02/28/17 at 11:49; Status DC Miscellaneous Information ALL NURSING DEPARTME... UNSCH PRN .XX SEE LABEL COMMENTS; Start 02/28/17 at 11:33; Stop 03/01/17 at 11:32; Status DC Miscellaneous Information SPECIFIC LAB TO BE BIA... ONCE ONCE .XX ; Start 03/04 at 09:45; Stop 03/04/17 at 09:46; Status Cancel Sodium Chloride 1,000 ml @ 999 mls/hr BOLUS ONCE IV Last administered on 13:28; Start 03/02/17 at 13:15; Stop 03/02/17 at 14:15; Status DC Sodium Chloride 1,000 ml @ 125 mls/hr Q8H IV Last administered on 03/02/17 14: 18; Start 03/02/17 at 13:15; Stop 03/02/17 at 14:30; Status DC Rifampin (Rifampin) 300 mg Q12HR PO Last administered on 03/23/17 08:42; Start 03/02/17 at 21:00; Stop 03/23/17 at 18:40; Status DC Potassium Chloride 20 meq/ Sodium Chloride 38.5 meq/Sterile Water 1,010 ml @ 55 mls/hr [id number] IV Last administered on 03/09/17 22:51; Start 03/03/17 at 11: 00; Stop 03/09/17 at 23:36; Status DC Furosemide (Lasix Inj) 20 mg ONCE ONCE IV PUSH Last administered on 03/03/17 10:19; Start 03/03/17 at 09:30; Stop 03/03/17 at 09:43; Status DC Carvedilol (Coreg) 6.25 mg Q12HR PO Last administered on 04/09/17 08:40; Start 03/03/17 at 21:00; Stop 04/10/17 at 03:26; Status DC Vancomycin HCl (Vancomycin Inj) 1,000 mg STK-MED ONCE .ROUTE Last administered on 03/04/17 15:52; Start 03/04/17 at 15:10; Stop 03/04/17 at 15:11; Status DC Fentanyl Citrate (fentaNYL INJ) 100 mcg STK-MED ONCE .ROUTE ; Start 03/04/17 at 16:38; Stop 03/04/17 at 16:39; Status DC Fentanyl Citrate (fentaNYL INJ) 250 mcg STK-MED ONCE .ROUTE ; Start 03/04/17 at 16:38; Stop 03/04/17 at 16:39; Status DC Vancomycin HCl (Vancomycin Inj) 1,000 mg STK-MED ONCE .ROUTE Last administered on 03/04/17 16:52; Start 03/04/17 at 16:59; Stop 03/04/17 at 17:00; Status DC Fentanyl Citrate (fentaNYL INJ) 100 mcg STK-MED ONCE .ROUTE ; Start 03/04/17 at 18:24; Stop 03/04/17 at 18:25; Status DC Fentanyl Citrate (fentaNYL INJ) 250 mcg STK-MED ONCE .ROUTE ; Start 03/04/17 at 18:25; Stop 03/04/17 at 18:26; Status DC Miscellaneous Information ALL NURSING DEPARTME... UNSCH PRN .XX SEE LABEL COMMENTS; Start 03/04/17 at 19:15; Stop 03/05/17 at 19:14; Status DC Daptomycin 550 mg/ Sodium Chloride 100 ml @ 200 mls/hr Q24H IV Last administered on 04/14/17 11:37; Start 03/06/17 at 12:00 Bisacodyl (Dulcolax Supp) 10 mg DAILY PRN RECTAL SEVERE CONSITIPATION; Start at 21:00 Lactulose (Lactulose Liq) 30 ml DAILY PRN NG SEVERE CONSITIPATION Last administered on 03/07/17 18:45; Start 03/06/17 at 21:00 Docusate Sodium (Colace Liq) 100 mg Q12HR PO Last administered on 03/09/17 09: 30; Start 03/06/17 at 21:15; Status Future Hold Sodium Chloride 250 ml @ 15 mls/hr ONCE ONCE IV Last administered on 8/13/ 17at 00:27; Start 03/07/17 at 19:00; Stop 03/08/17 at 12:06; Status DC Furosemide (Lasix Inj) 20 mg ONCE ONCE IV Last administered on 03/08/17t 03:49 ; Start 03/07/17 at 19:00; Stop 03/07/17 at 19:01; Status DC Polyethylene Glycol/ Electrolytes (Colyte Liq) 4,000 ml ONCE ONCE PO ; Start at 11:00; Stop 03/08/17 at 11:01; Status Cancel Mupirocin (Bactroban 2% Oint) 22 applic STK-MED ONCE .ROUTE ; Start 03/08/17 at 12:10; Stop 03/08/17 at 12:11; Status DC Lidocaine HCl (Xylocaine 2% Inj) 50 ml STK-MED ONCE .ROUTE ; Start 03/08/17 at 12:13; Stop 03/08/17 at 12:14; Status DC Bupivacaine HCl (Marcaine Pf 0.5% Inj) 30 ml STK-MED ONCE .ROUTE ; Start at 12:17; Stop 03/08/17 at 12:18; Status DC Famotidine (Pepcid Inj) 20 mg STK-MED ONCE .ROUTE ; Start 03/08/17 at 13:17; Stop 03/08/17 at 13:18; Status DC Vancomycin HCl (Vancomycin Inj) 1,000 mg STK-MED ONCE .ROUTE Last administered on 03/08/17t 14:35; Start 03/08/17 at 14:07; Stop 03/08/17 at 14:08; Status DC Sodium Chloride (Sodium Chloride 0.9% Inj) 20 ml STK-MED ONCE .ROUTE ; Start at 14:07; Stop 03/08/17 at 14:08; Status DC Vancomycin HCl (Vancomycin Inj) 1,000 mg STK-MED ONCE .ROUTE ; Start 03/08/17 at 14:42; Stop 03/08/17 at 14:43; Status DC Sodium Chloride (Sodium Chloride 0.9% Inj) 20 ml STK-MED ONCE .ROUTE ; Start at 14:42; Stop 03/08/17 at 14:43; Status DC Fentanyl Citrate (fentaNYL INJ) 500 mcg STK-MED ONCE .ROUTE ; Start 03/08/17 at 15:51; Stop 03/08/17 at 15:52; Status DC Miscellaneous Information ALL NURSING DEPARTME... UNSCH PRN .XX SEE LABEL COMMENTS; Start 03/08/17 at 15:40; Stop 03/09/17 at 15:39; Status DC Polyethylene Glycol/ Electrolytes (Colyte Liq) 4,000 ml ONCE ONCE NG Last administered on 03/08/17 22:42; Start 03/08/17 at 20:00; Stop 03/08/17 at 20:01 ; Status DC Lisinopril (Prinivil) 2.5 mg DAILY PO Last administered on 04/15/17 08:46; Start 03/09/17 at 09:00 Miscellaneous (Pill Splitter) 1 ea UNSCH PRN OTHER SEE LABEL COMMENTS; Start at 21:15 Dextrose 1,000 ml @ 84 mls/hr [id number] IV Last administered on 03/11/17 21:24 ; Start 03/09/17 at 23:45; Stop 03/11/17 at 23:38; Status DC Enoxaparin Sodium (Lovenox Inj) 40 mg Q24H SQ Last administered on 04/14/17 14 :20; Start 03/10/17 at 13:00; Status Future hold Bupivacaine HCl (Marcaine Pf 0.5% Inj) 30 ml STK-MED ONCE .ROUTE ; Start at 14:50; Stop 03/10/17 at 14:51; Status DC Lidocaine HCl (Xylocaine 2% Inj) 50 ml STK-MED ONCE .ROUTE ; Start 03/10/17 at 14:51; Stop 03/10/17 at 14:52; Status DC Bacitracin (Baciguent Oint) 15 applic STK-MED ONCE .ROUTE Last administered on 03/10/17 16:43; Start 03/10/17 at 14:51; Stop 03/10/17 at 14:52; Status DC Vancomycin HCl (Vancomycin Inj) 1,000 mg STK-MED ONCE .ROUTE Last administered on 03/10/17 15:49; Start 03/10/17 at 15:45; Stop 03/10/17 at 15:46; Status DC Sodium Chloride (Sodium Chloride 0.9% Inj) 20 ml STK-MED ONCE .ROUTE ; Start at 15:45; Stop 03/10/17 at 15:46; Status DC Neomycin/Polymyxin (Neosporin G.u. Irr) 2 ml STK-MED ONCE TOPICAL Last administered on 03/10/17 15:49; Start 03/10/17 at 15:49; Stop 03/10/17 at 15:59 ; Status DC Bacitracin (Baciguent Oint) 30 applic STK-MED ONCE .ROUTE Last administered on 03/10/17 16:44; Start 03/10/17 at 16:41; Stop 03/10/17 at 16:42; Status DC Hydromorphone HCl (Dilaudid Pf Inj) 2 mg STK-MED ONCE .ROUTE ; Start 03/10/17 at 16:47; Stop 03/10/17 at 16:48; Status DC Fentanyl Citrate (fentaNYL INJ) 250 mcg STK-MED ONCE .ROUTE ; Start 03/10/17 at 17:22; Stop 03/10/17 at 17:23; Status DC Morphine Sulfate (*morphine INJ PERIprocedure ONLY) 8 mg STK-MED ONCE .ROUTE Last administered on 03/10/17 18:12; Start 03/10/17 at 18:12; Stop 03/10/17 at 18:13; Status DC Miscellaneous Information ALL NURSING DEPARTME... UNSCH PRN .XX SEE LABEL COMMENTS; Start 03/10/17 at 14:30; Stop 03/11/17 at 14:29; Status DC Propofol (Diprivan 200 Mg/20 ml Inj) 200 mg STK-MED ONCE IV PUSH ; Start at 15:29; Stop 03/11/17 at 15:47; Status DC Oxybenzone/ Padimate O/ Dimethicone (Blistex Lip [place]) 4.25 applic STK-MED ONCE TOPICAL Last administered on 03/11/17 16:02; Start 03/11/17 at 16:02; Stop at 16:03; Status DC Miscellaneous Information ALL NURSING DEPARTME... UNSCH PRN .XX SEE LABEL COMMENTS; Start 03/11/17 at 16:00; Stop 03/12/17 at 15:59; Status DC Succinylcholine Chloride (Quelicin Inj) 200 mg STK-MED ONCE IV PUSH ; Start at 15:27; Stop 03/12/17 at 08:59; Status DC Sodium Chloride 250 ml @ 15 mls/hr ONCE ONCE IV Last administered on 10:15; Start 03/12/17 at 10:15; Stop 03/13/17 at 02:54; Status DC Acetaminophen (Tylenol) 650 mg Q4H PRN PO SEE LABEL COMMENTS; Start 03/12/17 at 10:15; Stop 03/12/17 at 14:16; Status DC Diphenhydramine HCl (Benadryl) 25 mg Q4H PRN PO SEE LABEL COMMENTS; Start 03/12 at 10:15; Stop 03/12/17 at 14:16; Status DC Potassium Chloride 100 ml @ 50 mls/hr Q2H IV Last administered on 03/12/17 13 :25; Start 03/12/17 at 11:00; Stop 03/12/17 at 14:59; Status DC Lidocaine HCl (Xylocaine 2% Inj) 50 ml STK-MED ONCE .ROUTE ; Start 03/12/17 at 13:04; Stop 03/12/17 at 13:05; Status DC Mupirocin (Bactroban 2% Oint) 22 applic STK-MED ONCE .ROUTE ; Start 03/12/17 at 13:06; Stop 03/12/17 at 13:07; Status DC Hydromorphone HCl (Dilaudid Pf Inj) 2 mg STK-MED ONCE .ROUTE ; Start 03/12/17 at 15:18; Stop 03/12/17 at 15:19; Status DC Acetaminophen (Ofirmev Inj) 1,000 mg STK-MED ONCE IV ; Start 03/12/17 at 15:18; Stop 03/12/17 at 15:19; Status DC Vancomycin HCl (Vancomycin Inj) 1,000 mg STK-MED ONCE .ROUTE Last administered on 03/12/17 15:54; Start 03/12/17 at 15:57; Stop 03/12/17 at 15:58; Status DC Neomycin/Polymyxin (Neosporin G.u. Irr) 2 ml STK-MED ONCE TOPICAL Last administered on 03/12/17 15:54; Start 03/12/17 at 15:54; Stop 03/12/17 at 16:15 ; Status DC Fentanyl Citrate (fentaNYL INJ) 250 mcg STK-MED ONCE .ROUTE ; Start 03/12/17 at 17:04; Stop 03/12/17 at 17:05; Status DC Miscellaneous Information ALL NURSING DEPARTME... UNSCH PRN .XX SEE LABEL COMMENTS; Start 03/12/17 at 17:30; Stop 03/13/17 at 17:29; Status DC Morphine Sulfate (*morphine INJ PERIprocedure ONLY) 8 mg STK-MED ONCE .ROUTE Last administered on 03/12/17 17:33; Start 03/12/17 at 17:33; Stop 03/12/17 at 17:34; Status DC Lidocaine HCl (Xylocaine 1% Inj) 10 ml ONCE@0700 ONCE OTHER ; Start 03/13/17 at 07:00; Stop 03/13/17 at 07:01; Status DC Potassium Chloride/Sodium Chloride 1,000 ml @ 75 mls/hr [id number] IV Last administered on 04/07/17 10:54; Start 03/13/17 at 11:30; Stop 04/07/17 at 13:42 ; Status DC Polyethylene Glycol/ Electrolytes (Colyte Liq) 4,000 ml ONCE ONCE PEG Last administered on 03/14/17 17:13; Start 03/14/17 at 16:00; Stop 03/14/17 at 16:01 ; Status DC Sodium Chloride 250 ml @ 15 mls/hr ONCE ONCE IV Last administered on 21:30; Start 03/13/17 at 20:00; Stop 03/14/17 at 12:39; Status DC Polyethylene Glycol/ Electrolytes (Colyte Liq) 4,000 ml ONCE ONCE PO Last administered on 03/15/17 17:19; Start 03/15/17 at 16:45; Stop 03/15/17 at 16:48 ; Status DC Propofol (Diprivan 200 Mg/20 ml Inj) 180 mg ONCE ONCE IV Last administered on 03/15/17 16:45; Start 03/15/17 at 16:43; Stop 03/15/17 at 16:45; Status DC Sodium Biphosphate/ Sodium Phosphate (Fleets Enema (Adult)) 133 ml ONCE ONCE RECTAL Last administered on 03/16/17 14:45; Start 03/16/17 at 14:15; Stop at 14:21; Status DC Sodium Biphosphate/ Sodium Phosphate (Fleets Enema (Adult)) 133 ml ONCE ONCE RECTAL Last administered on 03/17/17 09:49; Start 03/17/17 at 08:00; Stop at 08:01; Status DC Propofol (Diprivan 200 Mg/20 ml Inj) 100 mg ONCE ONCE IV PUSH ; Start at 15:00; Stop 03/16/17 at 15:01; Status DC Midazolam HCl (Versed Inj) 2 mg STK-MED ONCE .ROUTE ; Start 03/16/17 at 15:34; Stop 03/16/17 at 15:35; Status DC Vancomycin HCl (Vancomycin Inj) 1,000 mg STK-MED ONCE .ROUTE Last administered on 03/18/17 18:58; Start 03/18/17 at 18:15; Stop 03/18/17 at 18:16; Status DC Fentanyl Citrate (fentaNYL INJ) 200 mcg STK-MED ONCE .ROUTE ; Start 03/18/17 at 19:50; Stop 03/18/17 at 19:51; Status DC Methocarbamol (Robaxin) 500 mg Q8HR PO Last administered on 04/14/17 05:25; Start 03/19/17 at 14:00; Stop 04/14/17 at 12:13; Status DC Acetaminophen 100 ml @ As Directed STK-MED ONCE IV ; Start 03/24/17 at 09:21; Stop 03/24/17 at 09:22; Status DC Midazolam HCl (Versed Inj) 2 mg STK-MED ONCE .ROUTE ; Start 03/24/17 at 09:21; Stop 03/24/17 at 09:22; Status DC Fentanyl Citrate (fentaNYL INJ) 100 mcg STK-MED ONCE .ROUTE ; Start 03/24/17 at 09:21; Stop 03/24/17 at 09:22; Status DC Fentanyl Citrate (fentaNYL INJ) 100 mcg STK-MED ONCE .ROUTE ; Start 03/24/17 at 09:21; Stop 03/24/17 at 09:22; Status DC Hydromorphone HCl (*DILAUDID PF INJ PERIprocedural ONLY) 1 mg STK-MED ONCE .ROUTE Last administered on 03/24/17 14:53; Start 03/24/17 at 14:53; Stop at 14:54; Status DC Meperidine HCl (*DEMEROL INJ PERIprocedural ONLY) 25 mg STK-MED ONCE .ROUTE Last administered on 03/24/17 15:01; Start 03/24/17 at 15:01; Stop 03/24/17 at 15:02; Status DC Fentanyl Citrate (fentaNYL INJ) 400 mcg STK-MED ONCE .ROUTE ; Start 03/24/17 at 15:01; Stop 03/24/17 at 15:02; Status DC Miscellaneous Information ALL NURSING DEPARTME... UNSCH PRN .XX SEE LABEL COMMENTS; Start 03/24/17 at 14:52; Stop 03/25/17 at 14:51; Status DC Polyethylene Glycol (Miralax) 17 gm DAILY PO ; Start 03/24/17 at 16:30; Status Cancel Acetaminophen (Tylenol) 650 mg Q4H PRN PO fever Last administered on 03/25/17 10:02; Start 03/25/17 at 10:00 Piperacillin Sod/ Tazobactam Sod 100 ml @ 200 mls/hr Q8H IV Last administered on 03/29/17 12:36; Start 03/25/17 at 20:00; Stop 03/29/17 at 14:34; Status DC Furosemide (Lasix Inj) 10 mg ONCE ONCE IV PUSH Last administered on 03/26/17 13:47; Start 03/26/17 at 13:30; Stop 03/26/17 at 13:34; Status DC Furosemide (Lasix Inj) 10 mg UNSCH X1 IV PUSH Last administered on 03/27/17 01 :31; Start 03/26/17 at 17:15; Stop 03/26/17 at 23:59; Status DC Levothyroxine Sodium (Synthroid) 50 mcg DAILY@0600 PO Last administered on 04/15 06:11; Start 03/30/17 at 06:00 Levothyroxine Sodium (Synthroid) 50 mcg ONCE ONCE PO Last administered on 12:55; Start 03/29/17 at 12:00; Stop 03/29/17 at 12:02; Status DC Levofloxacin (Levaquin) 500 mg DAILY PO Last administered on 04/07/17t 08:46; Start 03/29/17 at 14:45; Stop 04/07/17 at 14:44; Status DC Propofol (Diprivan 200 Mg/20 ml Inj) 200 mg STK-MED ONCE IV ; Start 02/26/17 at 12:00; Stop 03/30/17 at 13:17; Status DC Neostigmine Methylsulfate (Prostigmin Inj) 3 mg STK-MED ONCE IV ; Start 02/26/17 at 12:00; Stop 03/30/17 at 13:17; Status DC Phenylephrine HCl (Neosynephrine/ NS 1000 Mcg/10ml Syr) 1,000 mcg STK-MED ONCE IV ; Start 02/26/17 at 12:00; Stop 03/30/17 at 13:17; Status DC Lactated Ringer's 2,000 ml @ As Directed STK-MED ONCE IV ; Start 02/26/17 at 12: 00; Stop 03/30/17 at 13:17; Status DC Propofol (Diprivan 200 Mg/20 ml Inj) 200 mg STK-MED ONCE IV ; Start 02/28/17 at 12:00; Stop 03/30/17 at 13:46; Status DC Neostigmine Methylsulfate (Prostigmin Inj) 3 mg STK-MED ONCE IV ; Start 02/28/17 at 12:00; Stop 03/30/17 at 13:46; Status DC Lactated Ringer's 2,000 ml @ As Directed STK-MED ONCE IV ; Start 02/28/17 at 12: 00; Stop 03/30/17 at 13:46; Status DC Propofol (Diprivan 200 Mg/20 ml Inj) 400 mg STK-MED ONCE IV ; Start 03/04/17 at 12:00; Stop 03/30/17 at 14:07; Status DC Ephedrine Sulfate (ePHEDrine/NS 25 MG/5 ML SYR) 25 mg STK-MED ONCE IV ; Start at 12:00; Stop 03/30/17 at 14:07; Status DC Phenylephrine HCl (Neosynephrine/ NS 1000 Mcg/10ml Syr) 2,000 mcg STK-MED ONCE IV ; Start 03/04/17 at 12:00; Stop 03/30/17 at 14:08; Status DC Ondansetron HCl (Zofran Inj) 4 mg STK-MED ONCE IV PUSH ; Start 03/04/17 at 12:00 ; Stop 03/30/17 at 14:08; Status DC Propofol (Diprivan 200 Mg/20 ml Inj) 200 mg STK-MED ONCE IV ; Start 03/08/17 at 12:00; Stop 03/30/17 at 14:49; Status DC Ephedrine Sulfate (ePHEDrine/NS 25 MG/5 ML SYR) 50 mg STK-MED ONCE IV ; Start at 12:00; Stop 03/30/17 at 14:49; Status DC Neostigmine Methylsulfate (Prostigmin Inj) 4 mg STK-MED ONCE IV ; Start at 12:00; Stop 03/30/17 at 14:49; Status DC Phenylephrine HCl (Neosynephrine/ NS 1000 Mcg/10ml Syr) 1,000 mcg STK-MED ONCE IV ; Start 03/08/17 at 12:00; Stop 03/30/17 at 14:49; Status DC Ondansetron HCl (Zofran Inj) 4 mg STK-MED ONCE IV PUSH ; Start 03/08/17 at 12:00 ; Stop 03/30/17 at 14:49; Status DC Lactated Ringer's 1,000 ml @ As Directed STK-MED ONCE IV ; Start 03/08/17 at 12 :00; Stop 03/30/17 at 14:49; Status DC Propofol (Diprivan 200 Mg/20 ml Inj) 200 mg STK-MED ONCE IV ; Start 03/10/17 at 12:00; Stop 03/30/17 at 15:08; Status DC Ephedrine Sulfate (ePHEDrine/NS 25 MG/5 ML SYR) 25 mg STK-MED ONCE IV ; Start at 12:00; Stop 03/30/17 at 15:08; Status DC Neostigmine Methylsulfate (Prostigmin Inj) 3 mg STK-MED ONCE IV ; Start at 12:00; Stop 03/30/17 at 15:08; Status DC Phenylephrine HCl (Neosynephrine/ NS 1000 Mcg/10ml Syr) 2,000 mcg STK-MED ONCE IV ; Start 03/10/17 at 12:00; Stop 03/30/17 at 15:08; Status DC Ondansetron HCl (Zofran Inj) 4 mg STK-MED ONCE IV PUSH ; Start 03/10/17 at 12:00 ; Stop 03/30/17 at 15:08; Status DC Lactated Ringer's 1,000 ml @ As Directed STK-MED ONCE IV ; Start 03/10/17 at 12 :00; Stop 03/30/17 at 15:08; Status DC Sodium Chloride 1,000 ml @ As Directed STK-MED ONCE IV ; Start 03/10/17 at 12: 00; Stop 03/30/17 at 15:08; Status DC Propofol (Diprivan 200 Mg/20 ml Inj) 200 mg STK-MED ONCE IV ; Start 03/12/17 at 12:00; Stop 03/30/17 at 15:20; Status DC Ephedrine Sulfate (ePHEDrine/NS 25 MG/5 ML SYR) 25 mg STK-MED ONCE IV ; Start at 12:00; Stop 03/30/17 at 15:20; Status DC Phenylephrine HCl (Neosynephrine/ NS 1000 Mcg/10ml Syr) 1,000 mcg STK-MED ONCE IV ; Start 03/12/17 at 12:00; Stop 03/30/17 at 15:20; Status DC Ondansetron HCl (Zofran Inj) 4 mg STK-MED ONCE IV PUSH ; Start 03/12/17 at 12:00 ; Stop 03/30/17 at 15:20; Status DC Lactated Ringer's 1,000 ml @ As Directed STK-MED ONCE IV ; Start 03/12/17 at 12 :00; Stop 03/30/17 at 15:20; Status DC Propofol (Diprivan 200 Mg/20 ml Inj) 200 mg STK-MED ONCE IV ; Start 03/18/17 at 12:00; Stop 03/30/17 at 15:38; Status DC Ondansetron HCl (Zofran Inj) 4 mg STK-MED ONCE IV PUSH ; Start 03/18/17 at 12:00 ; Stop 03/30/17 at 15:38; Status DC Neostigmine Methylsulfate (Prostigmin Inj) 3 mg STK-MED ONCE IV ; Start at 12:00; Stop 03/30/17 at 15:38; Status DC Phenylephrine HCl (Neosynephrine/ NS 1000 Mcg/10ml Syr) 1,000 mcg STK-MED ONCE IV ; Start 03/18/17 at 12:00; Stop 03/30/17 at 15:38; Status DC Oxycodone/ Acetaminophen (Percocet 5-325 Mg) 1 tab Q4H PRN PO pain 3 to 5; Start 04/02/17 at 13:00; Stop 04/09/17 at 17:08; Status DC Oxycodone/ Acetaminophen (Percocet 10-325 Mg) 1 tab Q4H PRN PO pain 6-10 Last administered on 04/09/17 14:14; Start 04/02/17 at 13:00; Stop 04/09/17 at 17:08 ; Status DC Magnesium Sulfate/ Dextrose 100 ml @ 100 mls/hr Q1H IV Last administered on 16:15; Start 04/03/17 at 14:00; Stop 04/03/17 at 15:59; Status DC Sodium Chloride (Sodium Chloride) 1 gm TID PO Last administered on 04/07/17 13 :24; Start 04/04/17 at 14:00; Stop 04/07/17 at 13:45; Status DC Calcium Chloride 2 gm/Sodium Chloride 120 ml @ 120 mls/hr ONCE ONCE IV Last administered on 04/04/17 15:45; Start 04/04/17 at 14:00; Stop 04/04/17 at 14:59 ; Status DC Hydromorphone HCl (Dilaudid Pf Inj) 0.2 mg Q6H PRN IV PUSH breakthrough pain Last administered on 04/13/17 03:27; Start 04/09/17 at 17:15; Stop 04/13/17 at 03:27; Status DC Acetaminophen/ Hydrocodone Bitart ([place] 7.5-325 Mg) 1 tab Q4H PRN PO PAIN 6- 10 Last administered on 04/15/17 06:12; Start 04/09/17 at 17:15 Acetaminophen/ Hydrocodone Bitart ([place] 5-325 Mg) 1 tab Q4H PRN PO PAIN 3-5; Start 04/09/17 at 17:15 Tolvaptan ([place]) 15 mg ONCE ONCE PO Last administered on 04/09/17 22:49; Start 04/09/17 at 19:30; Stop 04/09/17 at 19:32; Status DC Carvedilol (Coreg) 6.25 mg Q12HR PO Last administered on 04/15/17 08:46; Start 04/10/17 at 09:00 Clonidine (Catapres) 0.2 mg Q8H PO Last administered on 04/15/17 04:19; Start 04/10/17 at 20:00 Methocarbamol (Robaxin) 750 mg Q8HR PO Last administered on 04/15/17 06:12; Start 04/14/17 at 14:00 A/P Assessment and Plan A/P Hyponatremia-sodium level slightly lower than yesterday. continue fluid restriction 1200 ml/day. patient previously received Tolvaptan- sodium level tomorrow. 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 distant showering of emboli to other joints. MRSA bacteremia Right ankle hardware infection, s/p partial removal of hardware. Deeper hardware embedded. SP RIGHT BKA Bilateral UE hand abscess and tenosynovitis, septic arthritis s.p multiple debridements. continue Daptomycin till 04/24/17 per ID Continue pain control. ID following Multiple surgeries thus far: - podiatry Dr. Reyes/Dr. Gamez on 02/26, 02/28, 03/04 - hand surgeon Dr. Bullock on 02/26, 02/28, 03/04, 03/08, 03/10 -right BKA Anemia Follow CBC Status post blood transfusion Acute Toxic/Metabolic Encephalopathy secondary to Sepsis-improved. Acute Alcohol Withdrawal - improved Hypertension Continue clonidine and Coreg, cardiology initiate low dose lisinopril, monitor renal function Follow blood pressures Adjust as needed for control Mild Systolic CHF Scrotal edema EF of 40-45% with global hypokinesis found on 02/28/17 Continue beta amarjit HYPOTHYROIDISM continue synthroid THADDEUS mostly vanco induced - resolved Monitor renal function Avoid nephrotoxins Previous event was likely secondary to ATN Nephrology following Hepatitis C- f/u as outpatient. Standard precautions DVT Prophylaxis Lovenox Discharge Planning previously d/w the case management; has to stay inpatient while receiving IV antibiotics. Flaca Houser MD Apr 15, 2017 10:31
[2017-04-15] MEDS: SODIUM CHLORIDE 0.9% IV SCH (12:57)
[2017-04-15] MEDS: DAPTOMYCIN IV SCH (12:57)
[2017-04-15] MEDS: ENOXAPARIN SODIUM 40 MG/0.4 ML SYRINGE SQ SCH (14:16)
[2017-04-15 16:00] VITALS: BP 128/67; PULSE 65; RESP 18; TEMP 98.1; O2SAT 98
[2017-04-15 20:00] VITALS: BP 155/76; PULSE 73; RESP 16; TEMP 98.5; O2SAT 98
[2017-04-16] VITALS: BP 132/71; PULSE 68; RESP 18; TEMP 98.3; O2SAT 98
[2017-04-16] MEDS: ACETAMINOPHEN/HYDROcodone 325 MG/7.5 MG TAB PO PRN ×3 (02:53→20:39)
[2017-04-16 04:00] VITALS: BP 132/67; PULSE 62; RESP 18; TEMP 98.6; O2SAT 97
[2017-04-16] MEDS: cloNIDine HCL 0.2 MG TAB PO SCH ×3 (04:53→20:39)
[2017-04-16] MEDS: LEVOTHYROXINE SODIUM 50 MCG TAB PO SCH (04:53)
[2017-04-16] MEDS: METHOCARBAMOL 500 MG TAB PO SCH ×3 (04:53→20:40)
[2017-04-16 06:18] LABS: ANION GAP 8 MEQ/L (5-15); AST (GOT) 31 U/L (15-37); BICARBONATE 25.4 MEQ/L (21.0-32.0); BLOOD UREA NITROGEN 19 MG/DL (7-18); CHLORIDE 93 MEQ/L (98-107); GLOMERULAR FILTRATION RATE 122 ML/MIN (>89); POTASSIUM 4.1 MEQ/L (3.5-5.1); SODIUM (NA) 126 MEQ/L (136-145)
[2017-04-16 06:19] LABS: ALT (GPT) 27 U/L (12-78)
[2017-04-16 06:21] LABS: ALKALINE PHOSPHATASE 111 U/L (45-117); TOTAL BILIRUBIN ADULT 0.3 MG/DL (0.2-1.0)
[2017-04-16 08:08] VITALS: BP 126/65; PULSE 56; RESP 20; TEMP 97.9; O2SAT 99
[2017-04-16] MEDS: THIAMINE HCL 100 MG TAB PO SCH (09:14)
[2017-04-16] MEDS: MULTIVITAMIN TAB PO SCH (09:14)
[2017-04-16] MEDS: CARVEDILOL 6.25 MG TAB PO SCH ×2 (09:14→20:39)
[2017-04-16] MEDS: LISINOPRIL 5 MG TAB PO SCH (09:14)
[2017-04-16] MEDS: MUPIROCIN 2% OINT 1 APPLIC/GM SYR NASAL SCH ×2 (09:15→20:39)
--- NOTE | 2017-04-16 11:29 | HHI.PR ---
Subjective Remarks in no distress. has some back pain. no fever. no other new complaints. Objective Vitals Vital Signs Date Time Temp Pulse Resp B/P (MAP) Pulse Ox O2 Delivery O2 Flow Rate FiO2 04/16/17 08:08 97.9 56 20 126/65 (85) 99 04/16/17 04:00 Room Air 04/16/17 04:00 98.6 62 18 132/67 (88) 97 04/16/17 00:00 Room Air 04/16/17 00:00 98.3 68 18 132/71 (91) 98 04/15/17 20:00 Room Air 04/15/17 20:00 98.5 73 16 155/76 (102) 98 04/15/17 16:00 98.1 65 18 128/67 (87) 98 I/O 04/15/17 04/15/17 04/15/17 04/16/17 04/16/17 04/16/17 07:00 15:00 23:00 07:00 15:00 23:00 Intake Total 680 ml 720 ml 300 ml Output Total 1500 ml 1400 ml 1400 ml Balance -820 ml -680 ml -1100 ml Intake Oral 680 ml 720 ml 300 ml Output Urine Total 1500 ml 1400 ml 1400 ml Bladder Scan Volume Amount 499 ml # Bowel Movements 0 0 1 Result Diagram: 04/13/17 1014 04/16/17 0500 Imaging Last Impressions Chest X-Ray 03/29/17 0000 Signed Impressions: Service Date/Time: Wednesday, March 29, 2017 12:17 - CONCLUSION: Stable chest. Isaac Stevenson MD FACR Tumor Localization 03/22/17 0000 Signed Impressions: Service Date/Time: Wednesday, March 22, 2017 13:03 - CONCLUSION: Nondiagnostic examination secondary to patient refusal Harry Lucio MD Abdomen X-Ray 03/08/17 0000 Signed Impressions: Service Date/Time: Wednesday, March 08, 2017 10:30 - CONCLUSION: Nonspecific, negative for obstruction or ileus. Isaac Stevenson MD FACR Lower Extremity CT 03/01/17 0000 Signed Impressions: Service Date/Time: Wednesday, March 01, 2017 11:12 - CONCLUSION: 1. No evidence of organized fluid collections to suggest an abscess. 2. Extensive soft tissue swelling surrounding the ankle and extending to the forefoot especially along the lateral aspect. 3. No erosive or destructive bone changes. 4. Bone defects compatible with previous excision device. Blake Rider MD Ankle X-Ray 02/26/17 0000 Signed Impressions: Service Date/Time: Sunday, February 26, 2017 17:15 - CONCLUSION: I see no retained surgical instruments. Isaac Stevenson MD FACR Upper Extremity Ultrasound 02/25/17 1734 Signed Impressions: Service Date/Time: February 17:54 - CONCLUSION: There is a thin fluid collection within the focal area of soft tissue swelling 2nd digit. Oscar Cassidy MD Hand X-Ray 02/25/17 0000 Signed Impressions: Service Date/Time: February 18:59 - CONCLUSION: No gross bony abnormality. Oscar Cassidy MD Lower Extremity Ultrasound 02/24/17 0000 Signed Impressions: Service Date/Time: Friday, February 24, 2017 13:41 - CONCLUSION: Negative for deep venous thrombosis. Isaac Stevenson MD FACR Head CT 02/24/17 0000 Signed Impressions: Service Date/Time: Friday, February 24, 2017 16:08 - CONCLUSION: 1. No acute intracranial abnormality. 2. Probable large mucocele in the sphenoid sinus. Ty Hankins MD Abdomen/Pelvis CT 02/24/17 0000 Signed Impressions: Service Date/Time: Friday, February 24, 2017 16:16 - CONCLUSION: 1. Marked gaseous distension of large and small bowel most suggestive of ileus. 2. There is no free air. 3. 2.2 cm left adrenal mass. 4. Distended bladder. Isaac Stevenson MD FACR Objective Remarks GENERAL: This is a well-nourished, well-developed patient, in no apparent distress. CARDIOVASCULAR: Regular rate and regular rhythm without murmurs, gallops, or rubs. RESPIRATORY: Clear to auscultation. Breath sounds equal bilaterally. No wheezes , rales, or rhonchi. GASTROINTESTINAL: Abdomen soft, non-tender, nondistended. Normal, active bowel sounds MUSCULOSKELETAL: right forearm covered with clean dressing- s/p right BKA NEURO: Alert & Oriented x4 to person, place, time, situation. Moves all ext x4 Procedures 03/10/2017 - Dr. Bullock exploration, wash, excisional debridement extensor tenosynovium right wrist/forearm/hand 03/08/17 - Dr. Bullock- exploration, wash, excisional debridement skin, subcutaneous tissue, extensor tenosynovitis right wrist and hand. Findings: necrotic tissue, minimal purulence, extensor tenosynovitis right wrist/hand 03/04/17 - Dr Gamez - Right leg and incision and drainage. Right foot delayed primary closure x3 03/04/17 - Dr. Bullock - Extensor tenosynovectomy second, third, fourth extensor compartments right wrist and excisional debridement wash index finger metacarpal phalangeal joint, excisional wash and excisional debridement left hand. 02/28/17 - Dr. Reyes - Right ankle wound debridement and washout. Implantation of antibiotic vancomycin beads. 02/28/17 - Dr. Bullock - Exploration, wash, excisional debridement index finger metacarpophalangeal joint right hand; Exploration, wash, excisional debridement metacarpophalangeal joint left index finger; Exploration, wash, excisional debridement extensor pollicis longus tendon right thumb and hand. 02/26/17 - Dr. Reyes - Right ankle incision and drainage, arthrotomy, removal infected hardware, bone biopsy. 02/26/17 - Dr. Bullock - Exploration, incision and drainage right hand abscess, Arthrotomy wash metacarpal phalangeal joint right index finger, Arthrotomy wash metacarpal phalangeal joint left index finger. Medications and IVs Current Medications Sodium Chloride 1,000 ml @ 999 mls/hr BOLUS ONCE IV Last administered on 13:38; Start 02/24/17 at 13:45; Stop 02/24/17 at 14:45; Status DC IV Flush (NS Flush) 2 ml UNSCH PRN IV FLUSH FLUSH AFTER USING IV ACCESS Last administered on 02/24/17 13:38; Start 02/24/17 at 13:45 Vancomycin HCl 1000 mg/Sodium Chloride 250 ml @ 250 mls/hr ONCE STAT IV Last administered on 02/24/17 15:49; Start 02/24/17 at 15:35; Stop 02/24/17 at 16:34; Status DC Cefepime HCl 2000 mg/Sodium Chloride 100 ml @ 200 mls/hr ONCE STAT IV Last administered on 02/24/17 16:36; Start 02/24/17 at 15:35; Stop 02/24/17 at 16:04; Status DC Potassium Bicarb/ Potassium Chloride (K-Lyte Cl Eff) 50 meq ONCE ONCE PO Last administered on 02/24/17 15:56; Start 02/24/17 at 16:00; Stop 02/24/17 at 16: 01; Status DC Iohexol (Omnipaque 350 Inj) 97 ml STK-MED ONCE IV Last administered on 16:29; Start 02/24/17 at 16:29; Stop 02/24/17 at 16:30; Status DC Sodium Chloride 1,000 ml @ 125 mls/hr Q8H IV Last administered on 03/02/17 09: 33; Start 02/24/17 at 18:00; Stop 03/02/17 at 13:08; Status DC Ondansetron HCl (Zofran Inj) 4 mg Q8HR PRN IV PUSH NAUSEA; Start 02/24/17 at 18: 00 Thiamine HCl (Vitamin B1) 100 mg ONCE ONCE PO Last administered on 02/24/17 20 :20; Start 02/24/17 at 20:15; Stop 02/24/17 at 20:16; Status DC Thiamine HCl (Vitamin B1) 100 mg DAILY PO Last administered on 04/16/17 09:14 ; Start 02/25/17 at 09:00 Potassium Chloride 100 ml @ 50 mls/hr Q2H IV Last administered on 02/24/17 22: 59; Start 02/24/17 at 20:30; Stop 02/25/17 at 00:29; Status DC Pharmacy Profile Note 0 ml @ 0 mls/hr UNSCH OTHER ; Start 02/24/17 at 20:15; Stop 03/02/17 at 13:23; Status DC Cefepime HCl 2000 mg/Sodium Chloride 100 ml @ 200 mls/hr Q12H IV Last administered on 02/27/17 05:51; Start 02/25/17 at 07:00; Stop 02/27/17 at 14:53; Status DC Vancomycin HCl 1500 mg/Sodium Chloride 515 ml @ 257.5 mls/ hr Q18H IV Last administered on 02/25/17 10:30; Start 02/25/17 at 10:00; Stop 02/25/17 at 11:30; Status DC Miscellaneous Information SPECIFIC LAB TO BE DRAWN:[facility]ANCO TROUGH DATE TO BE DRLaurence.. ONCE ONCE .XX ; Start 02/26/17 at 21:45; Stop 02/26/17 at 21:46; Status DC Flumazenil (Romazicon Inj) 0.2 mg Q1M PRN IV PUSH SEE LABEL COMMENTS; Start 02/25/17 at 09:15 Lorazepam (Ativan) 1 mg Q4H PRN PO agitation Last administered on 03/20/17 03: 18; Start 02/25/17 at 09:15 Lorazepam (Ativan Inj) 1 mg Q4H PRN IV PUSH agitation when not taking po Last administered on 03/05/17 02:41; Start 02/25/17 at 09:15 Lorazepam (Ativan) 2 mg Q2H PRN PO CIWA 11-14; Start 02/25/17 at 09:15; Stop 02/28/17 at 07:44; Status DC Lorazepam (Ativan Inj) 2 mg Q2H PRN IV PUSH CIWA 11-14 Last administered on 02/26 18:14; Start 02/25/17 at 09:15; Stop 02/28/17 at 07:44; Status DC Lorazepam (Ativan Inj) 2 mg Q1H PRN IV PUSH CIWA 15-20 Last administered on 02/25 21:37; Start 02/25/17 at 09:15; Stop 02/28/17 at 07:44; Status DC Lorazepam (Ativan Inj) 2 mg Q15M PRN IV PUSH CIWA > 20 Last administered on 02/26 06:25; Start 02/25/17 at 09:15; Stop 02/28/17 at 07:44; Status DC Multivitamins (Theragran) 1 tab DAILY PO Last administered on 04/16/17 09:14; Start 02/26/17 at 09:00 Acetaminophen (Tylenol) 650 mg Q4H PRN PO FEVER Last administered on 03/07/17 04:47; Start 02/25/17 at 09:15; Stop 03/12/17 at 10:47; Status DC Lisinopril (Prinivil) 10 mg DAILY PO ; Start 02/26/17 at 09:00; Stop 03/08/17 at 21:09; Status DC Enoxaparin Sodium (Lovenox Inj) 40 mg Q24H SQ Last administered on 03/07/17 10 :00; Start 02/25/17 at 10:00; Stop 03/10/17 at 12:17; Status DC Vancomycin HCl 1500 mg/Sodium Chloride 515 ml @ 257.5 mls/ hr Q12H IV Last administered on 02/26/17 09:42; Start 02/25/17 at 22:00; Stop 02/26/17 at 12:06; Status DC Miscellaneous Information SPECIFIC LAB TO BE BIA... ONCE ONCE .XX Last administered on 02/26/17 09:45; Start 02/26/17 at 09:45; Stop 02/26/17 at 09:46; Status DC Chlordiazepoxide (Librium) 25 mg Q8H PO ; Start 02/25/17 at 17:00; Stop 02/25/17 at 20:24; Status DC Gentamicin Sulfate 70 mg/ Sodium Chloride 101.75 ml @ 100 mls/ hr ONCE ONCE IV Last administered on 02/25/17 18:51; Start 02/25/17 at 18:30; Stop 02/25/17 at 19:31; Status DC Dexmedetomidine HCl 200 mcg/ Sodium Chloride 52 ml @ 0 mls/hr TITRATE IV Last administered on 02/27/17 13:55; Start 02/25/17 at 17:30; Stop 03/09/17 at 23:34; Status DC Acetaminophen (Ofirmev Inj) 650 mg Q6H PRN IV TEMP >101 Last administered on 20:12; Start 02/25/17 at 21:00 Iohexol (Omnipaque 350 Inj) 75 ml STK-MED ONCE IV Last administered on 21:15; Start 02/25/17 at 21:15; Stop 02/25/17 at 21:16; Status DC Potassium Chloride 100 ml @ 50 mls/hr Q2H PRN IV For Potassium 2.8 - 3.2 mEq/L ; Start 02/25/17 at 22:45; Stop 03/01/17 at 23:53; Status DC Potassium Chloride 100 ml @ 50 mls/hr Q2H PRN IV For Potassium 2.8 - 3.2 mEq/ L Last administered on 02/28/17 12:32; Start 02/25/17 at 22:45; Stop 03/01/17 at 23:53; Status DC Potassium Bicarb/ Potassium Chloride (K-Lyte Cl Eff) 50 meq UNSCH PRN PO For Potassium 3.3 - 3.5 mEq/L; Start 02/25/17 at 22:45; Stop 03/01/17 at 23:53; Status DC Potassium Chloride 100 ml @ 25 mls/hr UNSCH PRN IV For Potassium 3.3 - 3.5 mEq /L; Start 02/25/17 at 22:45; Stop 03/01/17 at 23:53; Status DC Potassium Chloride 100 ml @ 50 mls/hr Q2H PRN IV For Potassium 3.3 - 3.5 mEq/ L Last administered on 02/28/17 06:39; Start 02/25/17 at 22:45; Stop 03/01/17 at 23:53; Status DC Magnesium Sulfate 4 gm/Sodium Chloride 100 ml @ 50 mls/hr UNSCH PRN IV For Magnesium 0.9 - 1.1 mg/dL; Start 02/25/17 at 22:45; Stop 03/01/17 at 23:53; Status DC Magnesium Oxide (Mag-Ox) 800 mg UNSCH PRN PO For Magnesium 1.2 - 1.6 mg/dL; Start 02/25/17 at 22:45; Stop 03/01/17 at 23:53; Status DC Magnesium Sulfate 2 gm/Sodium Chloride 100 ml @ 50 mls/hr UNSCH PRN IV For Magnesium 1.2 - 1.6 mg/dL; Start 02/25/17 at 22:45; Stop 03/01/17 at 23:53; Status DC Potassium Phosphate (K-Phos) 2,000 mg Q4H PRN PO For Phosphorus < 2.5 mg/dL; Start 02/25/17 at 22:45; Stop 03/01/17 at 23:53; Status DC Sodium Phosphate 30 mmol/Sodium Chloride 250 ml @ 42 mls/hr UNSCH PRN IV For Phosphorus < 2.5 mg/dL Last administered on 02/26/17 23:19; Start 02/25/17 at 22: 45; Stop 03/01/17 at 23:53; Status DC Potassium Phosphate (K-Phos) 2,000 mg UNSCH PRN PO/TUBE SEE LABEL COMMENTS; Start 02/25/17 at 22:45; Stop 03/01/17 at 23:53; Status DC Potassium Phosphate 30 mmol/ Sodium Chloride 260 ml @ 42 mls/hr UNSCH PRN IV SEE LABEL COMMENTS; Start 02/25/17 at 22:45; Stop 03/01/17 at 23:53; Status DC Labetalol HCl (Trandate Inj) 10 mg Q6H PRN IV PUSH SBP >165; Start 02/25/17 at 23:15 Pantoprazole Sodium (Protonix Inj) 40 mg Q24H IV PUSH Last administered on 04/15 22:50; Start 02/26/17 at 00:00 Miscellaneous Information Patient in critical care unit? Ass... [id number] .XX ; Start 02/26/17 at 07:15 Mupirocin (Bactroban Nasal 2% Oint) 1 applic BID NASAL Last administered on 09:15; Start 02/26/17 at 09:00 Chlorhexidine Gluconate (Chlorhexidine 2% Cloth) 3 pack DAILY@04 TOPICAL Last administered on 03/03/17 04:00; Start 02/27/17 at 04:00; Stop 03/03/17 at 04:01; Status DC Chlorhexidine Gluconate (Chlorhexidine 2% Cloth) 3 pack UNSCH PRN TOPICAL HYGIENIC CARE; Start 02/26/17 at 07:15; Stop 03/03/17 at 07:07; Status DC Lidocaine HCl (Xylocaine 2% Inj) 50 ml STK-MED ONCE .ROUTE ; Start 02/26/17 at 09 :35; Stop 02/26/17 at 09:36; Status DC Bupivacaine HCl (Marcaine Pf 0.5% Inj) 60 ml STK-MED ONCE .ROUTE ; Start at 09:35; Stop 02/26/17 at 09:36; Status DC Mupirocin (Bactroban 2% Oint) 22 applic STK-MED ONCE .ROUTE ; Start 02/26/17 at 09:35; Stop 02/26/17 at 09:36; Status DC Vancomycin HCl 1250 mg/Sodium Chloride 262.5 ml @ 250 mls/hr Q12H IV Last administered on 03/02/17 09:33; Start 02/26/17 at 22:00; Stop 03/02/17 at 13:23; Status DC Miscellaneous Information SPECIFIC LAB TO BE BIA... ONCE ONCE .XX Last administered on 02/27/17 22:46; Start 02/27/17 at 21:45; Stop 02/27/17 at 21:46; Status DC Neomycin/Polymyxin (Neosporin G.u. Irr) 3 ml STK-MED ONCE TOPICAL Last administered on 02/26/17 13:06; Start 02/26/17 at 13:06; Stop 02/26/17 at 16:26; Status DC Neomycin/Polymyxin (Neosporin G.u. Irr) 4 ml STK-MED ONCE TOPICAL Last administered on 02/26/17 15:47; Start 02/26/17 at 15:47; Stop 02/26/17 at 16:26; Status DC Fentanyl Citrate (fentaNYL INJ) 250 mcg STK-MED ONCE .ROUTE ; Start 02/26/17 at 18:16; Stop 02/26/17 at 18:17; Status DC Fentanyl Citrate (fentaNYL INJ) 100 mcg STK-MED ONCE .ROUTE ; Start 02/26/17 at 18:16; Stop 02/26/17 at 18:17; Status DC Miscellaneous Information ALL NURSING DEPARTME... UNSCH PRN .XX SEE LABEL COMMENTS; Start 02/26/17 at 17:57; Stop 02/27/17 at 17:56; Status DC Clonidine (Catapres) 0.3 mg Q8HR PO Last administered on 04/10/17 12:33; Start 02/26/17 at 22:11; Stop 04/10/17 at 12:52; Status DC Diazepam (Valium) 5 mg Taper DAILY PO Last administered on 03/06/17 09:49; Start 02/26/17 at 22:15; Stop 03/06/17 at 22:14; Status DC Water (Free Water) 200 ml Q8HR G-TUBE Last administered on 02/27/17 22:31; Start 02/27/17 at 06:55; Stop 02/28/17 at 07:41; Status DC Rifampin 300 mg/ Sodium Chloride 100 ml @ 100 mls/hr Q12H IV Last administered on 03/02/17 14:41; Start 02/27/17 at 15:00; Stop 03/02/17 at 16:41; Status DC Oxycodone HCl (Roxicodone) 5 mg Q4H PRN PO pain 1-5 Last administered on 09:26; Start 02/28/17 at 07:45; Stop 04/09/17 at 17:08; Status DC Hydromorphone HCl (Dilaudid Pf Inj) 0.5 mg Q3H PRN IV PUSH pain 6-10 or not taking po Last administered on 04/09/17 16:51; Start 02/28/17 at 07:45; Stop at 17:08; Status DC Water (Free Water) 300 ml Q4HR G-TUBE Last administered on 03/02/17 20:00; Start 02/28/17 at 08:00; Stop 03/02/17 at 23:07; Status DC Vancomycin HCl (Vancomycin Inj) 1,000 mg STK-MED ONCE .ROUTE Last administered on 02/28/17 09:01; Start 02/28/17 at 09:01; Stop 02/28/17 at 09:02; Status DC Vancomycin HCl (Vancomycin Inj) 1,000 mg STK-MED ONCE .ROUTE Last administered on 02/28/17 09:33; Start 02/28/17 at 09:33; Stop 02/28/17 at 09:34; Status DC Vancomycin HCl (Vancomycin Inj) 1,000 mg STK-MED ONCE .ROUTE Last administered on 02/28/17 09:36; Start 02/28/17 at 09:33; Stop 02/28/17 at 09:34; Status DC Daptomycin 450 mg/ Sodium Chloride 100 ml @ 200 mls/hr Q24H IV Last administered on 03/05/17 13:41; Start 02/28/17 at 12:00; Stop 03/05/17 at 18:00 ; Status DC Vancomycin HCl (Vancomycin Inj) 1,000 mg STK-MED ONCE .ROUTE Last administered on 02/28/17 10:45; Start 02/28/17 at 10:42; Stop 02/28/17 at 10:43; Status DC Vancomycin HCl (Vancomycin Inj) 500 mg STK-MED ONCE .ROUTE Last administered on 02/28/17 10:45; Start 02/28/17 at 10:42; Stop 02/28/17 at 10:43; Status DC Fentanyl Citrate (fentaNYL INJ) 250 mcg STK-MED ONCE .ROUTE ; Start 02/28/17 at 11:48; Stop 02/28/17 at 11:49; Status DC Miscellaneous Information ALL NURSING DEPARTME... UNSCH PRN .XX SEE LABEL COMMENTS; Start 02/28/17 at 11:33; Stop 03/01/17 at 11:32; Status DC Miscellaneous Information SPECIFIC LAB TO BE BIA... ONCE ONCE .XX ; Start 03/04 at 09:45; Stop 03/04/17 at 09:46; Status Cancel Sodium Chloride 1,000 ml @ 999 mls/hr BOLUS ONCE IV Last administered on 13:28; Start 03/02/17 at 13:15; Stop 03/02/17 at 14:15; Status DC Sodium Chloride 1,000 ml @ 125 mls/hr Q8H IV Last administered on 03/02/17 14: 18; Start 03/02/17 at 13:15; Stop 03/02/17 at 14:30; Status DC Rifampin (Rifampin) 300 mg Q12HR PO Last administered on 03/23/17 08:42; Start 03/02/17 at 21:00; Stop 03/23/17 at 18:40; Status DC Potassium Chloride 20 meq/ Sodium Chloride 38.5 meq/Sterile Water 1,010 ml @ 55 mls/hr [id number] IV Last administered on 03/09/17 22:51; Start 03/03/17 at 11: 00; Stop 03/09/17 at 23:36; Status DC Furosemide (Lasix Inj) 20 mg ONCE ONCE IV PUSH Last administered on 03/03/17 10:19; Start 03/03/17 at 09:30; Stop 03/03/17 at 09:43; Status DC Carvedilol (Coreg) 6.25 mg Q12HR PO Last administered on 04/09/17 08:40; Start 03/03/17 at 21:00; Stop 04/10/17 at 03:26; Status DC Vancomycin HCl (Vancomycin Inj) 1,000 mg STK-MED ONCE .ROUTE Last administered on 03/04/17 15:52; Start 03/04/17 at 15:10; Stop 03/04/17 at 15:11; Status DC Fentanyl Citrate (fentaNYL INJ) 100 mcg STK-MED ONCE .ROUTE ; Start 03/04/17 at 16:38; Stop 03/04/17 at 16:39; Status DC Fentanyl Citrate (fentaNYL INJ) 250 mcg STK-MED ONCE .ROUTE ; Start 03/04/17 at 16:38; Stop 03/04/17 at 16:39; Status DC Vancomycin HCl (Vancomycin Inj) 1,000 mg STK-MED ONCE .ROUTE Last administered on 03/04/17 16:52; Start 03/04/17 at 16:59; Stop 03/04/17 at 17:00; Status DC Fentanyl Citrate (fentaNYL INJ) 100 mcg STK-MED ONCE .ROUTE ; Start 03/04/17 at 18:24; Stop 03/04/17 at 18:25; Status DC Fentanyl Citrate (fentaNYL INJ) 250 mcg STK-MED ONCE .ROUTE ; Start 03/04/17 at 18:25; Stop 03/04/17 at 18:26; Status DC Miscellaneous Information ALL NURSING DEPARTME... UNSCH PRN .XX SEE LABEL COMMENTS; Start 03/04/17 at 19:15; Stop 03/05/17 at 19:14; Status DC Daptomycin 550 mg/ Sodium Chloride 100 ml @ 200 mls/hr Q24H IV Last administered on 04/15/17 12:57; Start 03/06/17 at 12:00 Bisacodyl (Dulcolax Supp) 10 mg DAILY PRN RECTAL SEVERE CONSITIPATION; Start at 21:00 Lactulose (Lactulose Liq) 30 ml DAILY PRN NG SEVERE CONSITIPATION Last administered on 03/07/17 18:45; Start 03/06/17 at 21:00 Docusate Sodium (Colace Liq) 100 mg Q12HR PO Last administered on 03/09/17 09: 30; Start 03/06/17 at 21:15; Status Future Hold Sodium Chloride 250 ml @ 15 mls/hr ONCE ONCE IV Last administered on 00:27; Start 03/07/17 at 19:00; Stop 03/08/17 at 12:06; Status DC Furosemide (Lasix Inj) 20 mg ONCE ONCE IV Last administered on 03/08/17 03:49 ; Start 03/07/17 at 19:00; Stop 03/07/17 at 19:01; Status DC Polyethylene Glycol/ Electrolytes (Colyte Liq) 4,000 ml ONCE ONCE PO ; Start at 11:00; Stop 03/08/17 at 11:01; Status Cancel Mupirocin (Bactroban 2% Oint) 22 applic STK-MED ONCE .ROUTE ; Start 03/08/17 at 12:10; Stop 03/08/17 at 12:11; Status DC Lidocaine HCl (Xylocaine 2% Inj) 50 ml STK-MED ONCE .ROUTE ; Start 03/08/17 at 12:13; Stop 03/08/17 at 12:14; Status DC Bupivacaine HCl (Marcaine Pf 0.5% Inj) 30 ml STK-MED ONCE .ROUTE ; Start at 12:17; Stop 03/08/17 at 12:18; Status DC Famotidine (Pepcid Inj) 20 mg STK-MED ONCE .ROUTE ; Start 03/08/17 at 13:17; Stop 03/08/17 at 13:18; Status DC Vancomycin HCl (Vancomycin Inj) 1,000 mg STK-MED ONCE .ROUTE Last administered on 03/08/17 14:35; Start 03/08/17 at 14:07; Stop 03/08/17 at 14:08; Status DC Sodium Chloride (Sodium Chloride 0.9% Inj) 20 ml STK-MED ONCE .ROUTE ; Start at 14:07; Stop 03/08/17 at 14:08; Status DC Vancomycin HCl (Vancomycin Inj) 1,000 mg STK-MED ONCE .ROUTE ; Start 03/08/17 at 14:42; Stop 03/08/17 at 14:43; Status DC Sodium Chloride (Sodium Chloride 0.9% Inj) 20 ml STK-MED ONCE .ROUTE ; Start at 14:42; Stop 03/08/17 at 14:43; Status DC Fentanyl Citrate (fentaNYL INJ) 500 mcg STK-MED ONCE .ROUTE ; Start 03/08/17 at 15:51; Stop 03/08/17 at 15:52; Status DC Miscellaneous Information ALL NURSING DEPARTME... UNSCH PRN .XX SEE LABEL COMMENTS; Start 03/08/17 at 15:40; Stop 03/09/17 at 15:39; Status DC Polyethylene Glycol/ Electrolytes (Colyte Liq) 4,000 ml ONCE ONCE NG Last administered on 03/08/17 22:42; Start 03/08/17 at 20:00; Stop 03/08/17 at 20:01 ; Status DC Lisinopril (Prinivil) 2.5 mg DAILY PO Last administered on 04/16/17 09:14; Start 03/09/17 at 09:00 Miscellaneous (Pill Splitter) 1 ea UNSCH PRN OTHER SEE LABEL COMMENTS; Start at 21:15 Dextrose 1,000 ml @ 84 mls/hr [id number] IV Last administered on 03/11/17 21:24 ; Start 03/09/17 at 23:45; Stop 03/11/17 at 23:38; Status DC Enoxaparin Sodium (Lovenox Inj) 40 mg Q24H SQ Last administered on 04/15/17 14 :16; Start 03/10/17 at 13:00; Status Future hold Bupivacaine HCl (Marcaine Pf 0.5% Inj) 30 ml STK-MED ONCE .ROUTE ; Start at 14:50; Stop 03/10/17 at 14:51; Status DC Lidocaine HCl (Xylocaine 2% Inj) 50 ml STK-MED ONCE .ROUTE ; Start 03/10/17 at 14:51; Stop 03/10/17 at 14:52; Status DC Bacitracin (Baciguent Oint) 15 applic STK-MED ONCE .ROUTE Last administered on 03/10/17 16:43; Start 03/10/17 at 14:51; Stop 03/10/17 at 14:52; Status DC Vancomycin HCl (Vancomycin Inj) 1,000 mg STK-MED ONCE .ROUTE Last administered on 03/10/17 15:49; Start 03/10/17 at 15:45; Stop 03/10/17 at 15:46; Status DC Sodium Chloride (Sodium Chloride 0.9% Inj) 20 ml STK-MED ONCE .ROUTE ; Start at 15:45; Stop 03/10/17 at 15:46; Status DC Neomycin/Polymyxin (Neosporin G.u. Irr) 2 ml STK-MED ONCE TOPICAL Last administered on 03/10/17 15:49; Start 03/10/17 at 15:49; Stop 03/10/17 at 15:59 ; Status DC Bacitracin (Baciguent Oint) 30 applic STK-MED ONCE .ROUTE Last administered on 03/10/17 16:44; Start 03/10/17 at 16:41; Stop 03/10/17 at 16:42; Status DC Hydromorphone HCl (Dilaudid Pf Inj) 2 mg STK-MED ONCE .ROUTE ; Start 03/10/17 at 16:47; Stop 03/10/17 at 16:48; Status DC Fentanyl Citrate (fentaNYL INJ) 250 mcg STK-MED ONCE .ROUTE ; Start 03/10/17 at 17:22; Stop 03/10/17 at 17:23; Status DC Morphine Sulfate (*morphine INJ PERIprocedure ONLY) 8 mg STK-MED ONCE .ROUTE Last administered on 03/10/17 18:12; Start 03/10/17 at 18:12; Stop 03/10/17 at 18:13; Status DC Miscellaneous Information ALL NURSING DEPARTME... UNSCH PRN .XX SEE LABEL COMMENTS; Start 03/10/17 at 14:30; Stop 03/11/17 at 14:29; Status DC Propofol (Diprivan 200 Mg/20 ml Inj) 200 mg STK-MED ONCE IV PUSH ; Start at 15:29; Stop 03/11/17 at 15:47; Status DC Oxybenzone/ Padimate O/ Dimethicone (Blistex Lip [place]) 4.25 applic STK-MED ONCE TOPICAL Last administered on 03/11/17 16:02; Start 03/11/17 at 16:02; Stop at 16:03; Status DC Miscellaneous Information ALL NURSING DEPARTME... UNSCH PRN .XX SEE LABEL COMMENTS; Start 03/11/17 at 16:00; Stop 03/12/17 at 15:59; Status DC Succinylcholine Chloride (Quelicin Inj) 200 mg STK-MED ONCE IV PUSH ; Start at 15:27; Stop 03/12/17 at 08:59; Status DC Sodium Chloride 250 ml @ 15 mls/hr ONCE ONCE IV Last administered on 10:15; Start 03/12/17 at 10:15; Stop 03/13/17 at 02:54; Status DC Acetaminophen (Tylenol) 650 mg Q4H PRN PO SEE LABEL COMMENTS; Start 03/12/17 at 10:15; Stop 03/12/17 at 14:16; Status DC Diphenhydramine HCl (Benadryl) 25 mg Q4H PRN PO SEE LABEL COMMENTS; Start 03/12 at 10:15; Stop 03/12/17 at 14:16; Status DC Potassium Chloride 100 ml @ 50 mls/hr Q2H IV Last administered on 03/12/17 13 :25; Start 03/12/17 at 11:00; Stop 03/12/17 at 14:59; Status DC Lidocaine HCl (Xylocaine 2% Inj) 50 ml STK-MED ONCE .ROUTE ; Start 03/12/17 at 13:04; Stop 03/12/17 at 13:05; Status DC Mupirocin (Bactroban 2% Oint) 22 applic STK-MED ONCE .ROUTE ; Start 03/12/17 at 13:06; Stop 03/12/17 at 13:07; Status DC Hydromorphone HCl (Dilaudid Pf Inj) 2 mg STK-MED ONCE .ROUTE ; Start 03/12/17 at 15:18; Stop 03/12/17 at 15:19; Status DC Acetaminophen (Ofirmev Inj) 1,000 mg STK-MED ONCE IV ; Start 03/12/17 at 15:18; Stop 03/12/17 at 15:19; Status DC Vancomycin HCl (Vancomycin Inj) 1,000 mg STK-MED ONCE .ROUTE Last administered on 03/12/17 15:54; Start 03/12/17 at 15:57; Stop 03/12/17 at 15:58; Status DC Neomycin/Polymyxin (Neosporin G.u. Irr) 2 ml STK-MED ONCE TOPICAL Last administered on 03/12/17 15:54; Start 03/12/17 at 15:54; Stop 03/12/17 at 16:15 ; Status DC Fentanyl Citrate (fentaNYL INJ) 250 mcg STK-MED ONCE .ROUTE ; Start 03/12/17 at 17:04; Stop 03/12/17 at 17:05; Status DC Miscellaneous Information ALL NURSING DEPARTME... UNSCH PRN .XX SEE LABEL COMMENTS; Start 03/12/17 at 17:30; Stop 03/13/17 at 17:29; Status DC Morphine Sulfate (*morphine INJ PERIprocedure ONLY) 8 mg STK-MED ONCE .ROUTE Last administered on 03/12/17 17:33; Start 03/12/17 at 17:33; Stop 03/12/17 at 17:34; Status DC Lidocaine HCl (Xylocaine 1% Inj) 10 ml ONCE@0700 ONCE OTHER ; Start 03/13/17 at 07:00; Stop 03/13/17 at 07:01; Status DC Potassium Chloride/Sodium Chloride 1,000 ml @ 75 mls/hr [id number] IV Last administered on 04/07/17 10:54; Start 03/13/17 at 11:30; Stop 04/07/17 at 13:42 ; Status DC Polyethylene Glycol/ Electrolytes (Colyte Liq) 4,000 ml ONCE ONCE PEG Last administered on 03/14/17 17:13; Start 03/14/17 at 16:00; Stop 03/14/17 at 16:01 ; Status DC Sodium Chloride 250 ml @ 15 mls/hr ONCE ONCE IV Last administered on 21:30; Start 03/13/17 at 20:00; Stop 03/14/17 at 12:39; Status DC Polyethylene Glycol/ Electrolytes (Colyte Liq) 4,000 ml ONCE ONCE PO Last administered on 03/15/17 17:19; Start 03/15/17 at 16:45; Stop 03/15/17 at 16:48 ; Status DC Propofol (Diprivan 200 Mg/20 ml Inj) 180 mg ONCE ONCE IV Last administered on 03/15/17 16:45; Start 03/15/17 at 16:43; Stop 03/15/17 at 16:45; Status DC Sodium Biphosphate/ Sodium Phosphate (Fleets Enema (Adult)) 133 ml ONCE ONCE RECTAL Last administered on 03/16/17 14:45; Start 03/16/17 at 14:15; Stop at 14:21; Status DC Sodium Biphosphate/ Sodium Phosphate (Fleets Enema (Adult)) 133 ml ONCE ONCE RECTAL Last administered on 03/17/17 09:49; Start 03/17/17 at 08:00; Stop at 08:01; Status DC Propofol (Diprivan 200 Mg/20 ml Inj) 100 mg ONCE ONCE IV PUSH ; Start at 15:00; Stop 03/16/17 at 15:01; Status DC Midazolam HCl (Versed Inj) 2 mg STK-MED ONCE .ROUTE ; Start 03/16/17 at 15:34; Stop 03/16/17 at 15:35; Status DC Vancomycin HCl (Vancomycin Inj) 1,000 mg STK-MED ONCE .ROUTE Last administered on 03/18/17 18:58; Start 03/18/17 at 18:15; Stop 03/18/17 at 18:16; Status DC Fentanyl Citrate (fentaNYL INJ) 200 mcg STK-MED ONCE .ROUTE ; Start 03/18/17 at 19:50; Stop 03/18/17 at 19:51; Status DC Methocarbamol (Robaxin) 500 mg Q8HR PO Last administered on 04/14/17 05:25; Start 03/19/17 at 14:00; Stop 04/14/17 at 12:13; Status DC Acetaminophen 100 ml @ As Directed STK-MED ONCE IV ; Start 03/24/17 at 09:21; Stop 03/24/17 at 09:22; Status DC Midazolam HCl (Versed Inj) 2 mg STK-MED ONCE .ROUTE ; Start 03/24/17 at 09:21; Stop 03/24/17 at 09:22; Status DC Fentanyl Citrate (fentaNYL INJ) 100 mcg STK-MED ONCE .ROUTE ; Start 03/24/17 at 09:21; Stop 03/24/17 at 09:22; Status DC Fentanyl Citrate (fentaNYL INJ) 100 mcg STK-MED ONCE .ROUTE ; Start 03/24/17 at 09:21; Stop 03/24/17 at 09:22; Status DC Hydromorphone HCl (*DILAUDID PF INJ PERIprocedural ONLY) 1 mg STK-MED ONCE .ROUTE Last administered on 03/24/17 14:53; Start 03/24/17 at 14:53; Stop at 14:54; Status DC Meperidine HCl (*DEMEROL INJ PERIprocedural ONLY) 25 mg STK-MED ONCE .ROUTE Last administered on 03/24/17 15:01; Start 03/24/17 at 15:01; Stop 03/24/17 at 15:02; Status DC Fentanyl Citrate (fentaNYL INJ) 400 mcg STK-MED ONCE .ROUTE ; Start 03/24/17 at 15:01; Stop 03/24/17 at 15:02; Status DC Miscellaneous Information ALL NURSING DEPARTME... UNSCH PRN .XX SEE LABEL COMMENTS; Start 03/24/17 at 14:52; Stop 03/25/17 at 14:51; Status DC Polyethylene Glycol (Miralax) 17 gm DAILY PO ; Start 03/24/17 at 16:30; Status Cancel Acetaminophen (Tylenol) 650 mg Q4H PRN PO fever Last administered on 03/25/17 10:02; Start 03/25/17 at 10:00 Piperacillin Sod/ Tazobactam Sod 100 ml @ 200 mls/hr Q8H IV Last administered on 03/29/17 12:36; Start 03/25/17 at 20:00; Stop 03/29/17 at 14:34; Status DC Furosemide (Lasix Inj) 10 mg ONCE ONCE IV PUSH Last administered on 03/26/17 13:47; Start 03/26/17 at 13:30; Stop 03/26/17 at 13:34; Status DC Furosemide (Lasix Inj) 10 mg UNSCH X1 IV PUSH Last administered on 03/27/17 01 :31; Start 03/26/17 at 17:15; Stop 03/26/17 at 23:59; Status DC Levothyroxine Sodium (Synthroid) 50 mcg DAILY@0600 PO Last administered on 04/16 04:53; Start 03/30/17 at 06:00 Levothyroxine Sodium (Synthroid) 50 mcg ONCE ONCE PO Last administered on 12:55; Start 03/29/17 at 12:00; Stop 03/29/17 at 12:02; Status DC Levofloxacin (Levaquin) 500 mg DAILY PO Last administered on 04/07/17t 08:46; Start 03/29/17 at 14:45; Stop 04/07/17 at 14:44; Status DC Propofol (Diprivan 200 Mg/20 ml Inj) 200 mg STK-MED ONCE IV ; Start 02/26/17 at 12:00; Stop 03/30/17 at 13:17; Status DC Neostigmine Methylsulfate (Prostigmin Inj) 3 mg STK-MED ONCE IV ; Start 02/26/17 at 12:00; Stop 03/30/17 at 13:17; Status DC Phenylephrine HCl (Neosynephrine/ NS 1000 Mcg/10ml Syr) 1,000 mcg STK-MED ONCE IV ; Start 02/26/17 at 12:00; Stop 03/30/17 at 13:17; Status DC Lactated Ringer's 2,000 ml @ As Directed STK-MED ONCE IV ; Start 02/26/17 at 12: 00; Stop 03/30/17 at 13:17; Status DC Propofol (Diprivan 200 Mg/20 ml Inj) 200 mg STK-MED ONCE IV ; Start 02/28/17 at 12:00; Stop 03/30/17 at 13:46; Status DC Neostigmine Methylsulfate (Prostigmin Inj) 3 mg STK-MED ONCE IV ; Start 02/28/17 at 12:00; Stop 03/30/17 at 13:46; Status DC Lactated Ringer's 2,000 ml @ As Directed STK-MED ONCE IV ; Start 02/28/17 at 12: 00; Stop 03/30/17 at 13:46; Status DC Propofol (Diprivan 200 Mg/20 ml Inj) 400 mg STK-MED ONCE IV ; Start 03/04/17 at 12:00; Stop 03/30/17 at 14:07; Status DC Ephedrine Sulfate (ePHEDrine/NS 25 MG/5 ML SYR) 25 mg STK-MED ONCE IV ; Start at 12:00; Stop 03/30/17 at 14:07; Status DC Phenylephrine HCl (Neosynephrine/ NS 1000 Mcg/10ml Syr) 2,000 mcg STK-MED ONCE IV ; Start 03/04/17 at 12:00; Stop 03/30/17 at 14:08; Status DC Ondansetron HCl (Zofran Inj) 4 mg STK-MED ONCE IV PUSH ; Start 03/04/17 at 12:00 ; Stop 03/30/17 at 14:08; Status DC Propofol (Diprivan 200 Mg/20 ml Inj) 200 mg STK-MED ONCE IV ; Start 03/08/17 at 12:00; Stop 03/30/17 at 14:49; Status DC Ephedrine Sulfate (ePHEDrine/NS 25 MG/5 ML SYR) 50 mg STK-MED ONCE IV ; Start at 12:00; Stop 03/30/17 at 14:49; Status DC Neostigmine Methylsulfate (Prostigmin Inj) 4 mg STK-MED ONCE IV ; Start at 12:00; Stop 03/30/17 at 14:49; Status DC Phenylephrine HCl (Neosynephrine/ NS 1000 Mcg/10ml Syr) 1,000 mcg STK-MED ONCE IV ; Start 03/08/17 at 12:00; Stop 03/30/17 at 14:49; Status DC Ondansetron HCl (Zofran Inj) 4 mg STK-MED ONCE IV PUSH ; Start 03/08/17 at 12:00 ; Stop 03/30/17 at 14:49; Status DC Lactated Ringer's 1,000 ml @ As Directed STK-MED ONCE IV ; Start 03/08/17 at 12 :00; Stop 03/30/17 at 14:49; Status DC Propofol (Diprivan 200 Mg/20 ml Inj) 200 mg STK-MED ONCE IV ; Start 03/10/17 at 12:00; Stop 03/30/17 at 15:08; Status DC Ephedrine Sulfate (ePHEDrine/NS 25 MG/5 ML SYR) 25 mg STK-MED ONCE IV ; Start at 12:00; Stop 03/30/17 at 15:08; Status DC Neostigmine Methylsulfate (Prostigmin Inj) 3 mg STK-MED ONCE IV ; Start at 12:00; Stop 03/30/17 at 15:08; Status DC Phenylephrine HCl (Neosynephrine/ NS 1000 Mcg/10ml Syr) 2,000 mcg STK-MED ONCE IV ; Start 03/10/17 at 12:00; Stop 03/30/17 at 15:08; Status DC Ondansetron HCl (Zofran Inj) 4 mg STK-MED ONCE IV PUSH ; Start 03/10/17 at 12:00 ; Stop 03/30/17 at 15:08; Status DC Lactated Ringer's 1,000 ml @ As Directed STK-MED ONCE IV ; Start 03/10/17 at 12 :00; Stop 03/30/17 at 15:08; Status DC Sodium Chloride 1,000 ml @ As Directed STK-MED ONCE IV ; Start 03/10/17 at 12: 00; Stop 03/30/17 at 15:08; Status DC Propofol (Diprivan 200 Mg/20 ml Inj) 200 mg STK-MED ONCE IV ; Start 03/12/17 at 12:00; Stop 03/30/17 at 15:20; Status DC Ephedrine Sulfate (ePHEDrine/NS 25 MG/5 ML SYR) 25 mg STK-MED ONCE IV ; Start at 12:00; Stop 03/30/17 at 15:20; Status DC Phenylephrine HCl (Neosynephrine/ NS 1000 Mcg/10ml Syr) 1,000 mcg STK-MED ONCE IV ; Start 03/12/17 at 12:00; Stop 03/30/17 at 15:20; Status DC Ondansetron HCl (Zofran Inj) 4 mg STK-MED ONCE IV PUSH ; Start 03/12/17 at 12:00 ; Stop 03/30/17 at 15:20; Status DC Lactated Ringer's 1,000 ml @ As Directed STK-MED ONCE IV ; Start 03/12/17 at 12 :00; Stop 03/30/17 at 15:20; Status DC Propofol (Diprivan 200 Mg/20 ml Inj) 200 mg STK-MED ONCE IV ; Start 03/18/17 at 12:00; Stop 03/30/17 at 15:38; Status DC Ondansetron HCl (Zofran Inj) 4 mg STK-MED ONCE IV PUSH ; Start 03/18/17 at 12:00 ; Stop 03/30/17 at 15:38; Status DC Neostigmine Methylsulfate (Prostigmin Inj) 3 mg STK-MED ONCE IV ; Start at 12:00; Stop 03/30/17 at 15:38; Status DC Phenylephrine HCl (Neosynephrine/ NS 1000 Mcg/10ml Syr) 1,000 mcg STK-MED ONCE IV ; Start 03/18/17 at 12:00; Stop 03/30/17 at 15:38; Status DC Oxycodone/ Acetaminophen (Percocet 5-325 Mg) 1 tab Q4H PRN PO pain 3 to 5; Start 04/02/17 at 13:00; Stop 04/09/17 at 17:08; Status DC Oxycodone/ Acetaminophen (Percocet 10-325 Mg) 1 tab Q4H PRN PO pain 6-10 Last administered on 04/09/17 14:14; Start 04/02/17 at 13:00; Stop 04/09/17 at 17:08 ; Status DC Magnesium Sulfate/ Dextrose 100 ml @ 100 mls/hr Q1H IV Last administered on 16:15; Start 04/03/17 at 14:00; Stop 04/03/17 at 15:59; Status DC Sodium Chloride (Sodium Chloride) 1 gm TID PO Last administered on 04/07/17 13 :24; Start 04/04/17 at 14:00; Stop 04/07/17 at 13:45; Status DC Calcium Chloride 2 gm/Sodium Chloride 120 ml @ 120 mls/hr ONCE ONCE IV Last administered on 04/04/17 15:45; Start 04/04/17 at 14:00; Stop 04/04/17 at 14:59 ; Status DC Hydromorphone HCl (Dilaudid Pf Inj) 0.2 mg Q6H PRN IV PUSH breakthrough pain Last administered on 04/13/17 03:27; Start 04/09/17 at 17:15; Stop 04/13/17 at 03:27; Status DC Acetaminophen/ Hydrocodone Bitart ([place] 7.5-325 Mg) 1 tab Q4H PRN PO PAIN 6- 10 Last administered on 04/16/17 06:46; Start 04/09/17 at 17:15 Acetaminophen/ Hydrocodone Bitart ([place] 5-325 Mg) 1 tab Q4H PRN PO PAIN 3-5; Start 04/09/17 at 17:15 Tolvaptan ([place]) 15 mg ONCE ONCE PO Last administered on 04/09/17 22:49; Start 04/09/17 at 19:30; Stop 04/09/17 at 19:32; Status DC Carvedilol (Coreg) 6.25 mg Q12HR PO Last administered on 04/16/17 09:14; Start 04/10/17 at 09:00 Clonidine (Catapres) 0.2 mg Q8H PO Last administered on 04/16/17 04:53; Start 04/10/17 at 20:00 Methocarbamol (Robaxin) 750 mg Q8HR PO Last administered on 04/16/17 04:53; Start 04/14/17 at 14:00 A/P Assessment and Plan A/P Hyponatremia-sodium level fairly stable. continue fluid restriction 1200 ml/day. patient previously received Tolvaptan- monitor the sodium level. 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 distant showering of emboli to other joints. MRSA bacteremia Right ankle hardware infection, s/p partial removal of hardware. Deeper hardware embedded. SP RIGHT BKA Bilateral UE hand abscess and tenosynovitis, septic arthritis s.p multiple debridements. continue Daptomycin till 04/24/17 per ID Continue pain control. ID following Multiple surgeries thus far: - podiatry Dr. Reyes/Dr. Gamez on 02/26, 02/28, 03/04 - hand surgeon Dr. Bullock on 02/26, 02/28, 03/04, 03/08, 03/10 -right BKA Anemia Follow CBC Status post blood transfusion Acute Toxic/Metabolic Encephalopathy secondary to Sepsis-improved. Acute Alcohol Withdrawal - improved Hypertension Continue clonidine and Coreg, cardiology initiate low dose lisinopril, monitor renal function Follow blood pressures Adjust as needed for control Mild Systolic CHF Scrotal edema EF of 40-45% with global hypokinesis found on 02/28/17 Continue beta amarjit HYPOTHYROIDISM continue synthroid THADDEUS mostly vanco induced - resolved Monitor renal function Avoid nephrotoxins Previous event was likely secondary to ATN Nephrology following Hepatitis C- f/u as outpatient. Standard precautions DVT Prophylaxis Lovenox Discharge Planning previously d/w the case management; has to stay inpatient while receiving IV antibiotics. Flaca Houser MD Apr 16, 2017 11:29
[2017-04-16] MEDS: ACETAMINOPHEN/HYDROcodone 325 MG/5 MG TAB PO PRN ×2 (11:39→16:42)
[2017-04-16] MEDS: SODIUM CHLORIDE 0.9% IV SCH (11:39)
[2017-04-16] MEDS: DAPTOMYCIN IV SCH (11:39)
[2017-04-16] MEDS: ENOXAPARIN SODIUM 40 MG/0.4 ML SYRINGE SQ SCH (11:40)
[2017-04-16 12:22] VITALS: BP 120/60; PULSE 64; RESP 18; TEMP 99; O2SAT 97
[2017-04-16 16:08] VITALS: BP 117/59; PULSE 60; RESP 18; TEMP 98.6; O2SAT 99
[2017-04-16 20:00] VITALS: BP 131/60; PULSE 63; RESP 18; TEMP 98.5; O2SAT 99
[2017-04-17] VITALS: BP 112/64; PULSE 59; RESP 20; TEMP 98.3; O2SAT 98
[2017-04-17] MEDS: PANTOPRAZOLE SODIUM 40 MG VIAL IV PUSH SCH (00:37)
[2017-04-17] MEDS: ACETAMINOPHEN/HYDROcodone 325 MG/7.5 MG TAB PO PRN ×5 (00:37→21:35)
[2017-04-17 04:00] VITALS: BP 120/57; PULSE 63; RESP 19; TEMP 97.5; O2SAT 96
[2017-04-17] MEDS: METHOCARBAMOL 500 MG TAB PO SCH ×3 (04:54→21:35)
[2017-04-17] MEDS: LEVOTHYROXINE SODIUM 50 MCG TAB PO SCH (04:54)
[2017-04-17] MEDS: cloNIDine HCL 0.2 MG TAB PO SCH ×3 (04:54→20:33)
[2017-04-17 08:00] VITALS: BP 119/59; PULSE 60; RESP 16; TEMP 98.2; O2SAT 99
[2017-04-17] MEDS: LISINOPRIL 5 MG TAB PO SCH (08:34)
[2017-04-17] MEDS: MULTIVITAMIN TAB PO SCH (08:34)
[2017-04-17] MEDS: CARVEDILOL 6.25 MG TAB PO SCH ×2 (08:34→20:33)
[2017-04-17] MEDS: THIAMINE HCL 100 MG TAB PO SCH (08:34)
[2017-04-17] MEDS: MUPIROCIN 2% OINT 1 APPLIC/GM SYR NASAL SCH ×2 (08:35→19:59)
[2017-04-17] MEDS: DAPTOMYCIN IV SCH (11:43)
[2017-04-17] MEDS: SODIUM CHLORIDE 0.9% IV SCH (11:43)
--- NOTE | 2017-04-17 11:55 | HHI.PR ---
Subjective Remarks in no distress. has some back spasm. no new complaints. d/w the RN. Objective Vitals Vital Signs Date Time Temp Pulse Resp B/P (MAP) Pulse Ox O2 Delivery O2 Flow Rate FiO2 04/17/17 08:00 98.2 60 16 119/59 (79) 99 04/17/17 07:32 Room Air 04/17/17 04:00 Room Air 04/17/17 04:00 97.5 63 19 120/57 (78) 96 04/17/17 00:00 98.3 59 20 112/64 (80) 98 04/17/17 00:00 Room Air 04/16/17 20:00 98.5 63 18 131/60 (83) 99 04/16/17 20:00 Room Air 04/16/17 16:08 98.6 60 18 117/59 (78) 99 04/16/17 12:22 99.0 64 18 120/60 (80) 97 I/O 04/16/17 04/16/17 04/16/17 04/17/17 04/17/17 04/17/17 07:00 15:00 23:00 07:00 15:00 23:00 Intake Total 300 ml 720 ml 100 ml Output Total 1400 ml 1800 ml 1400 ml Balance -1100 ml -1080 ml -1300 ml Intake Oral 300 ml 720 ml 100 ml Output Urine Total 1400 ml 1800 ml 1400 ml Bladder Scan Volume Amount 499 ml # Bowel Movements 1 0 0 Result Diagram: 04/13/17 1014 04/16/17 0500 Imaging Last Impressions Chest X-Ray 03/29/17 0000 Signed Impressions: Service Date/Time: Wednesday, March 29, 2017 12:17 - CONCLUSION: Stable chest. Isaac Stevenson MD FACR Tumor Localization 03/22/17 0000 Signed Impressions: Service Date/Time: Wednesday, March 22, 2017 13:03 - CONCLUSION: Nondiagnostic examination secondary to patient refusal Harry Lucio MD Abdomen X-Ray 03/08/17 0000 Signed Impressions: Service Date/Time: Wednesday, March 08, 2017 10:30 - CONCLUSION: Nonspecific, negative for obstruction or ileus. Isaac Stevenson MD FACR Lower Extremity CT 03/01/17 0000 Signed Impressions: Service Date/Time: Wednesday, March 01, 2017 11:12 - CONCLUSION: 1. No evidence of organized fluid collections to suggest an abscess. 2. Extensive soft tissue swelling surrounding the ankle and extending to the forefoot especially along the lateral aspect. 3. No erosive or destructive bone changes. 4. Bone defects compatible with previous excision device. Blake Rider MD Ankle X-Ray 02/26/17 0000 Signed Impressions: Service Date/Time: Sunday, February 26, 2017 17:15 - CONCLUSION: I see no retained surgical instruments. Isaac Stevenson MD FACR Upper Extremity Ultrasound 02/25/17 1734 Signed Impressions: Service Date/Time: February 17:54 - CONCLUSION: There is a thin fluid collection within the focal area of soft tissue swelling 2nd digit. Oscar Cassidy MD Hand X-Ray 02/25/17 0000 Signed Impressions: Service Date/Time: February 18:59 - CONCLUSION: No gross bony abnormality. Oscar Cassidy MD Lower Extremity Ultrasound 02/24/17 0000 Signed Impressions: Service Date/Time: Friday, February 24, 2017 13:41 - CONCLUSION: Negative for deep venous thrombosis. Isaac Stevenson MD FACR Head CT 02/24/17 0000 Signed Impressions: Service Date/Time: Friday, February 24, 2017 16:08 - CONCLUSION: 1. No acute intracranial abnormality. 2. Probable large mucocele in the sphenoid sinus. Ty Hankins MD Abdomen/Pelvis CT 02/24/17 0000 Signed Impressions: Service Date/Time: Friday, February 24, 2017 16:16 - CONCLUSION: 1. Marked gaseous distension of large and small bowel most suggestive of ileus. 2. There is no free air. 3. 2.2 cm left adrenal mass. 4. Distended bladder. Isaac Stevenson MD FACR Objective Remarks GENERAL: This is a well-nourished, well-developed patient, in no apparent distress. CARDIOVASCULAR: Regular rate and regular rhythm without murmurs, gallops, or rubs. RESPIRATORY: Clear to auscultation. Breath sounds equal bilaterally. No wheezes , rales, or rhonchi. GASTROINTESTINAL: Abdomen soft, non-tender, nondistended. Normal, active bowel sounds MUSCULOSKELETAL: right forearm covered with clean dressing- s/p right BKA NEURO: Alert & Oriented x4 to person, place, time, situation. Moves all ext x4 Procedures 03/10/2017 - Dr. Bullock exploration, wash, excisional debridement extensor tenosynovium right wrist/forearm/hand 03/08/17 - Dr. Bullock- exploration, wash, excisional debridement skin, subcutaneous tissue, extensor tenosynovitis right wrist and hand. Findings: necrotic tissue, minimal purulence, extensor tenosynovitis right wrist/hand 03/04/17 - Dr Gamez - Right leg and incision and drainage. Right foot delayed primary closure x3 03/04/17 - Dr. Bullock - Extensor tenosynovectomy second, third, fourth extensor compartments right wrist and excisional debridement wash index finger metacarpal phalangeal joint, excisional wash and excisional debridement left hand. 02/28/17 - Dr. Reyes - Right ankle wound debridement and washout. Implantation of antibiotic vancomycin beads. 02/28/17 - Dr. Bullock - Exploration, wash, excisional debridement index finger metacarpophalangeal joint right hand; Exploration, wash, excisional debridement metacarpophalangeal joint left index finger; Exploration, wash, excisional debridement extensor pollicis longus tendon right thumb and hand. 02/26/17 - Dr. Reyes - Right ankle incision and drainage, arthrotomy, removal infected hardware, bone biopsy. 02/26/17 - Dr. Bullock - Exploration, incision and drainage right hand abscess, Arthrotomy wash metacarpal phalangeal joint right index finger, Arthrotomy wash metacarpal phalangeal joint left index finger. Medications and IVs Current Medications Sodium Chloride 1,000 ml @ 999 mls/hr BOLUS ONCE IV Last administered on 13:38; Start 02/24/17 at 13:45; Stop 02/24/17 at 14:45; Status DC IV Flush (NS Flush) 2 ml UNSCH PRN IV FLUSH FLUSH AFTER USING IV ACCESS Last administered on 02/24/17 13:38; Start 02/24/17 at 13:45 Vancomycin HCl 1000 mg/Sodium Chloride 250 ml @ 250 mls/hr ONCE STAT IV Last administered on 02/24/17 15:49; Start 02/24/17 at 15:35; Stop 02/24/17 at 16:34; Status DC Cefepime HCl 2000 mg/Sodium Chloride 100 ml @ 200 mls/hr ONCE STAT IV Last administered on 02/24/17 16:36; Start 02/24/17 at 15:35; Stop 02/24/17 at 16:04; Status DC Potassium Bicarb/ Potassium Chloride (K-Lyte Cl Eff) 50 meq ONCE ONCE PO Last administered on 02/24/17 15:56; Start 02/24/17 at 16:00; Stop 02/24/17 at 16: 01; Status DC Iohexol (Omnipaque 350 Inj) 97 ml STK-MED ONCE IV Last administered on 16:29; Start 02/24/17 at 16:29; Stop 02/24/17 at 16:30; Status DC Sodium Chloride 1,000 ml @ 125 mls/hr Q8H IV Last administered on 03/02/17 09: 33; Start 02/24/17 at 18:00; Stop 03/02/17 at 13:08; Status DC Ondansetron HCl (Zofran Inj) 4 mg Q8HR PRN IV PUSH NAUSEA; Start 02/24/17 at 18: 00 Thiamine HCl (Vitamin B1) 100 mg ONCE ONCE PO Last administered on 02/24/17 20 :20; Start 02/24/17 at 20:15; Stop 02/24/17 at 20:16; Status DC Thiamine HCl (Vitamin B1) 100 mg DAILY PO Last administered on 04/17/17 08:34 ; Start 02/25/17 at 09:00 Potassium Chloride 100 ml @ 50 mls/hr Q2H IV Last administered on 02/24/17 22: 59; Start 02/24/17 at 20:30; Stop 02/25/17 at 00:29; Status DC Pharmacy Profile Note 0 ml @ 0 mls/hr UNSCH OTHER ; Start 02/24/17 at 20:15; Stop 03/02/17 at 13:23; Status DC Cefepime HCl 2000 mg/Sodium Chloride 100 ml @ 200 mls/hr Q12H IV Last administered on 02/27/17 05:51; Start 02/25/17 at 07:00; Stop 02/27/17 at 14:53; Status DC Vancomycin HCl 1500 mg/Sodium Chloride 515 ml @ 257.5 mls/ hr Q18H IV Last administered on 02/25/17 10:30; Start 02/25/17 at 10:00; Stop 02/25/17 at 11:30; Status DC Miscellaneous Information SPECIFIC LAB TO BE DRAWN:VANCO TROUGH DATE TO BE DR... ONCE ONCE .XX ; Start 02/26/17 at 21:45; Stop 02/26/17 at 21:46; Status DC Flumazenil (Romazicon Inj) 0.2 mg Q1M PRN IV PUSH SEE LABEL COMMENTS; Start 02/25/17 at 09:15 Lorazepam (Ativan) 1 mg Q4H PRN PO agitation Last administered on 03/20/17 03: 18; Start 02/25/17 at 09:15 Lorazepam (Ativan Inj) 1 mg Q4H PRN IV PUSH agitation when not taking po Last administered on 03/05/17 02:41; Start 02/25/17 at 09:15 Lorazepam (Ativan) 2 mg Q2H PRN PO CIWA 11-14; Start 02/25/17 at 09:15; Stop 02/28/17 at 07:44; Status DC Lorazepam (Ativan Inj) 2 mg Q2H PRN IV PUSH CIWA 11-14 Last administered on 02/26 18:14; Start 02/25/17 at 09:15; Stop 02/28/17 at 07:44; Status DC Lorazepam (Ativan Inj) 2 mg Q1H PRN IV PUSH CIWA 15-20 Last administered on 02/25 21:37; Start 02/25/17 at 09:15; Stop 02/28/17 at 07:44; Status DC Lorazepam (Ativan Inj) 2 mg Q15M PRN IV PUSH CIWA > 20 Last administered on 02/26 06:25; Start 02/25/17 at 09:15; Stop 02/28/17 at 07:44; Status DC Multivitamins (Theragran) 1 tab DAILY PO Last administered on 04/17/17 08:34; Start 02/26/17 at 09:00 Acetaminophen (Tylenol) 650 mg Q4H PRN PO FEVER Last administered on 03/07/17 04:47; Start 02/25/17 at 09:15; Stop 03/12/17 at 10:47; Status DC Lisinopril (Prinivil) 10 mg DAILY PO ; Start 02/26/17 at 09:00; Stop 03/08/17 at 21:09; Status DC Enoxaparin Sodium (Lovenox Inj) 40 mg Q24H SQ Last administered on 03/07/17 10 :00; Start 02/25/17 at 10:00; Stop 03/10/17 at 12:17; Status DC Vancomycin HCl 1500 mg/Sodium Chloride 515 ml @ 257.5 mls/ hr Q12H IV Last administered on 02/26/17 09:42; Start 02/25/17 at 22:00; Stop 02/26/17 at 12:06; Status DC Miscellaneous Information SPECIFIC LAB TO BE BIA... ONCE ONCE .XX Last administered on 02/26/17 09:45; Start 02/26/17 at 09:45; Stop 02/26/17 at 09:46; Status DC Chlordiazepoxide (Librium) 25 mg Q8H PO ; Start 02/25/17 at 17:00; Stop 02/25/17 at 20:24; Status DC Gentamicin Sulfate 70 mg/ Sodium Chloride 101.75 ml @ 100 mls/ hr ONCE ONCE IV Last administered on 02/25/17 18:51; Start 02/25/17 at 18:30; Stop 02/25/17 at 19:31; Status DC Dexmedetomidine HCl 200 mcg/ Sodium Chloride 52 ml @ 0 mls/hr TITRATE IV Last administered on 02/27/17 13:55; Start 02/25/17 at 17:30; Stop 03/09/17 at 23:34; Status DC Acetaminophen (Ofirmev Inj) 650 mg Q6H PRN IV TEMP >101 Last administered on 20:12; Start 02/25/17 at 21:00; Stop 04/17/17 at 08:33; Status DC Iohexol (Omnipaque 350 Inj) 75 ml STK-MED ONCE IV Last administered on 21:15; Start 02/25/17 at 21:15; Stop 02/25/17 at 21:16; Status DC Potassium Chloride 100 ml @ 50 mls/hr Q2H PRN IV For Potassium 2.8 - 3.2 mEq/L ; Start 02/25/17 at 22:45; Stop 03/01/17 at 23:53; Status DC Potassium Chloride 100 ml @ 50 mls/hr Q2H PRN IV For Potassium 2.8 - 3.2 mEq/ L Last administered on 02/28/17t 12:32; Start 02/25/17 at 22:45; Stop 03/01/17 at 23:53; Status DC Potassium Bicarb/ Potassium Chloride (K-Lyte Cl Eff) 50 meq UNSCH PRN PO For Potassium 3.3 - 3.5 mEq/L; Start 02/25/17 at 22:45; Stop 03/01/17 at 23:53; Status DC Potassium Chloride 100 ml @ 25 mls/hr UNSCH PRN IV For Potassium 3.3 - 3.5 mEq /L; Start 02/25/17 at 22:45; Stop 03/01/17 at 23:53; Status DC Potassium Chloride 100 ml @ 50 mls/hr Q2H PRN IV For Potassium 3.3 - 3.5 mEq/ L Last administered on 02/28/17t 06:39; Start 02/25/17 at 22:45; Stop 03/01/17 at 23:53; Status DC Magnesium Sulfate 4 gm/Sodium Chloride 100 ml @ 50 mls/hr UNSCH PRN IV For Magnesium 0.9 - 1.1 mg/dL; Start 02/25/17 at 22:45; Stop 03/01/17 at 23:53; Status DC Magnesium Oxide (Mag-Ox) 800 mg UNSCH PRN PO For Magnesium 1.2 - 1.6 mg/dL; Start 02/25/17 at 22:45; Stop 03/01/17 at 23:53; Status DC Magnesium Sulfate 2 gm/Sodium Chloride 100 ml @ 50 mls/hr UNSCH PRN IV For Magnesium 1.2 - 1.6 mg/dL; Start 02/25/17 at 22:45; Stop 03/01/17 at 23:53; Status DC Potassium Phosphate (K-Phos) 2,000 mg Q4H PRN PO For Phosphorus < 2.5 mg/dL; Start 02/25/17 at 22:45; Stop 03/01/17 at 23:53; Status DC Sodium Phosphate 30 mmol/Sodium Chloride 250 ml @ 42 mls/hr UNSCH PRN IV For Phosphorus < 2.5 mg/dL Last administered on 02/26/17 23:19; Start 02/25/17 at 22: 45; Stop 03/01/17 at 23:53; Status DC Potassium Phosphate (K-Phos) 2,000 mg UNSCH PRN PO/TUBE SEE LABEL COMMENTS; Start 02/25/17 at 22:45; Stop 03/01/17 at 23:53; Status DC Potassium Phosphate 30 mmol/ Sodium Chloride 260 ml @ 42 mls/hr UNSCH PRN IV SEE LABEL COMMENTS; Start 02/25/17 at 22:45; Stop 03/01/17 at 23:53; Status DC Labetalol HCl (Trandate Inj) 10 mg Q6H PRN IV PUSH SBP >165; Start 02/25/17 at 23:15 Pantoprazole Sodium (Protonix Inj) 40 mg Q24H IV PUSH Last administered on 04/17 00:37; Start 02/26/17 at 00:00 Miscellaneous Information Patient in critical care unit? Ass... [id number] .XX ; Start 02/26/17 at 07:15 Mupirocin (Bactroban Nasal 2% Oint) 1 applic BID NASAL Last administered on 20:39; Start 02/26/17 at 09:00 Chlorhexidine Gluconate (Chlorhexidine 2% Cloth) 3 pack DAILY@04 TOPICAL Last administered on 03/03/17 04:00; Start 02/27/17 at 04:00; Stop 03/03/17 at 04:01; Status DC Chlorhexidine Gluconate (Chlorhexidine 2% Cloth) 3 pack UNSCH PRN TOPICAL HYGIENIC CARE; Start 02/26/17 at 07:15; Stop 03/03/17 at 07:07; Status DC Lidocaine HCl (Xylocaine 2% Inj) 50 ml STK-MED ONCE .ROUTE ; Start 02/26/17 at 09 :35; Stop 02/26/17 at 09:36; Status DC Bupivacaine HCl (Marcaine Pf 0.5% Inj) 60 ml STK-MED ONCE .ROUTE ; Start at 09:35; Stop 02/26/17 at 09:36; Status DC Mupirocin (Bactroban 2% Oint) 22 applic STK-MED ONCE .ROUTE ; Start 02/26/17 at 09:35; Stop 02/26/17 at 09:36; Status DC Vancomycin HCl 1250 mg/Sodium Chloride 262.5 ml @ 250 mls/hr Q12H IV Last administered on 03/02/17 09:33; Start 02/26/17 at 22:00; Stop 03/02/17 at 13:23; Status DC Miscellaneous Information SPECIFIC LAB TO BE BIA... ONCE ONCE .XX Last administered on 02/27/17 22:46; Start 02/27/17 at 21:45; Stop 02/27/17 at 21:46; Status DC Neomycin/Polymyxin (Neosporin G.u. Irr) 3 ml STK-MED ONCE TOPICAL Last administered on 02/26/17 13:06; Start 02/26/17 at 13:06; Stop 02/26/17 at 16:26; Status DC Neomycin/Polymyxin (Neosporin G.u. Irr) 4 ml STK-MED ONCE TOPICAL Last administered on 02/26/17 15:47; Start 02/26/17 at 15:47; Stop 02/26/17 at 16:26; Status DC Fentanyl Citrate (fentaNYL INJ) 250 mcg STK-MED ONCE .ROUTE ; Start 02/26/17 at 18:16; Stop 02/26/17 at 18:17; Status DC Fentanyl Citrate (fentaNYL INJ) 100 mcg STK-MED ONCE .ROUTE ; Start 02/26/17 at 18:16; Stop 02/26/17 at 18:17; Status DC Miscellaneous Information ALL NURSING DEPARTME... UNSCH PRN .XX SEE LABEL COMMENTS; Start 02/26/17 at 17:57; Stop 02/27/17 at 17:56; Status DC Clonidine (Catapres) 0.3 mg Q8HR PO Last administered on 04/10/17 12:33; Start 02/26/17 at 22:11; Stop 04/10/17 at 12:52; Status DC Diazepam (Valium) 5 mg Taper DAILY PO Last administered on 03/06/17 09:49; Start 02/26/17 at 22:15; Stop 03/06/17 at 22:14; Status DC Water (Free Water) 200 ml Q8HR G-TUBE Last administered on 02/27/17 22:31; Start 02/27/17 at 06:55; Stop 02/28/17 at 07:41; Status DC Rifampin 300 mg/ Sodium Chloride 100 ml @ 100 mls/hr Q12H IV Last administered on 03/02/17 14:41; Start 02/27/17 at 15:00; Stop 03/02/17 at 16:41; Status DC Oxycodone HCl (Roxicodone) 5 mg Q4H PRN PO pain 1-5 Last administered on 09:26; Start 02/28/17 at 07:45; Stop 04/09/17 at 17:08; Status DC Hydromorphone HCl (Dilaudid Pf Inj) 0.5 mg Q3H PRN IV PUSH pain 6-10 or not taking po Last administered on 04/09/17 16:51; Start 02/28/17 at 07:45; Stop at 17:08; Status DC Water (Free Water) 300 ml Q4HR G-TUBE Last administered on 03/02/17 20:00; Start 02/28/17 at 08:00; Stop 03/02/17 at 23:07; Status DC Vancomycin HCl (Vancomycin Inj) 1,000 mg STK-MED ONCE .ROUTE Last administered on 02/28/17 09:01; Start 02/28/17 at 09:01; Stop 02/28/17 at 09:02; Status DC Vancomycin HCl (Vancomycin Inj) 1,000 mg STK-MED ONCE .ROUTE Last administered on 02/28/17 09:33; Start 02/28/17 at 09:33; Stop 02/28/17 at 09:34; Status DC Vancomycin HCl (Vancomycin Inj) 1,000 mg STK-MED ONCE .ROUTE Last administered on 02/28/17 09:36; Start 02/28/17 at 09:33; Stop 02/28/17 at 09:34; Status DC Daptomycin 450 mg/ Sodium Chloride 100 ml @ 200 mls/hr Q24H IV Last administered on 03/05/17 13:41; Start 02/28/17 at 12:00; Stop 03/05/17 at 18:00 ; Status DC Vancomycin HCl (Vancomycin Inj) 1,000 mg STK-MED ONCE .ROUTE Last administered on 02/28/17 10:45; Start 02/28/17 at 10:42; Stop 02/28/17 at 10:43; Status DC Vancomycin HCl (Vancomycin Inj) 500 mg STK-MED ONCE .ROUTE Last administered on 02/28/17 10:45; Start 02/28/17 at 10:42; Stop 02/28/17 at 10:43; Status DC Fentanyl Citrate (fentaNYL INJ) 250 mcg STK-MED ONCE .ROUTE ; Start 02/28/17 at 11:48; Stop 02/28/17 at 11:49; Status DC Miscellaneous Information ALL NURSING DEPARTME... UNSCH PRN .XX SEE LABEL COMMENTS; Start 02/28/17 at 11:33; Stop 03/01/17 at 11:32; Status DC Miscellaneous Information SPECIFIC LAB TO BE BIA... ONCE ONCE .XX ; Start 03/04 at 09:45; Stop 03/04/17 at 09:46; Status Cancel Sodium Chloride 1,000 ml @ 999 mls/hr BOLUS ONCE IV Last administered on 13:28; Start 03/02/17 at 13:15; Stop 03/02/17 at 14:15; Status DC Sodium Chloride 1,000 ml @ 125 mls/hr Q8H IV Last administered on 03/02/17 14: 18; Start 03/02/17 at 13:15; Stop 03/02/17 at 14:30; Status DC Rifampin (Rifampin) 300 mg Q12HR PO Last administered on 03/23/17 08:42; Start 03/02/17 at 21:00; Stop 03/23/17 at 18:40; Status DC Potassium Chloride 20 meq/ Sodium Chloride 38.5 meq/Sterile Water 1,010 ml @ 55 mls/hr [id number] IV Last administered on 03/09/17 22:51; Start 03/03/17 at 11: 00; Stop 03/09/17 at 23:36; Status DC Furosemide (Lasix Inj) 20 mg ONCE ONCE IV PUSH Last administered on 03/03/17 10:19; Start 03/03/17 at 09:30; Stop 03/03/17 at 09:43; Status DC Carvedilol (Coreg) 6.25 mg Q12HR PO Last administered on 04/09/17 08:40; Start 03/03/17 at 21:00; Stop 04/10/17 at 03:26; Status DC Vancomycin HCl (Vancomycin Inj) 1,000 mg STK-MED ONCE .ROUTE Last administered on 03/04/17 15:52; Start 03/04/17 at 15:10; Stop 03/04/17 at 15:11; Status DC Fentanyl Citrate (fentaNYL INJ) 100 mcg STK-MED ONCE .ROUTE ; Start 03/04/17 at 16:38; Stop 03/04/17 at 16:39; Status DC Fentanyl Citrate (fentaNYL INJ) 250 mcg STK-MED ONCE .ROUTE ; Start 03/04/17 at 16:38; Stop 03/04/17 at 16:39; Status DC Vancomycin HCl (Vancomycin Inj) 1,000 mg STK-MED ONCE .ROUTE Last administered on 03/04/17 16:52; Start 03/04/17 at 16:59; Stop 03/04/17 at 17:00; Status DC Fentanyl Citrate (fentaNYL INJ) 100 mcg STK-MED ONCE .ROUTE ; Start 03/04/17 at 18:24; Stop 03/04/17 at 18:25; Status DC Fentanyl Citrate (fentaNYL INJ) 250 mcg STK-MED ONCE .ROUTE ; Start 03/04/17 at 18:25; Stop 03/04/17 at 18:26; Status DC Miscellaneous Information ALL NURSING DEPARTME... UNSCH PRN .XX SEE LABEL COMMENTS; Start 03/04/17 at 19:15; Stop 03/05/17 at 19:14; Status DC Daptomycin 550 mg/ Sodium Chloride 100 ml @ 200 mls/hr Q24H IV Last administered on 04/17/17 11:43; Start 03/06/17 at 12:00 Bisacodyl (Dulcolax Supp) 10 mg DAILY PRN RECTAL SEVERE CONSITIPATION; Start at 21:00 Lactulose (Lactulose Liq) 30 ml DAILY PRN NG SEVERE CONSITIPATION Last administered on 03/07/17 18:45; Start 03/06/17 at 21:00 Docusate Sodium (Colace Liq) 100 mg Q12HR PO Last administered on 03/09/17 09: 30; Start 03/06/17 at 21:15; Status Future Hold Sodium Chloride 250 ml @ 15 mls/hr ONCE ONCE IV Last administered on 00:27; Start 03/07/17 at 19:00; Stop 03/08/17 at 12:06; Status DC Furosemide (Lasix Inj) 20 mg ONCE ONCE IV Last administered on 03/08/17 03:49 ; Start 03/07/17 at 19:00; Stop 03/07/17 at 19:01; Status DC Polyethylene Glycol/ Electrolytes (Colyte Liq) 4,000 ml ONCE ONCE PO ; Start at 11:00; Stop 03/08/17 at 11:01; Status Cancel Mupirocin (Bactroban 2% Oint) 22 applic STK-MED ONCE .ROUTE ; Start 03/08/17 at 12:10; Stop 03/08/17 at 12:11; Status DC Lidocaine HCl (Xylocaine 2% Inj) 50 ml STK-MED ONCE .ROUTE ; Start 03/08/17 at 12:13; Stop 03/08/17 at 12:14; Status DC Bupivacaine HCl (Marcaine Pf 0.5% Inj) 30 ml STK-MED ONCE .ROUTE ; Start at 12:17; Stop 03/08/17 at 12:18; Status DC Famotidine (Pepcid Inj) 20 mg STK-MED ONCE .ROUTE ; Start 03/08/17 at 13:17; Stop 03/08/17 at 13:18; Status DC Vancomycin HCl (Vancomycin Inj) 1,000 mg STK-MED ONCE .ROUTE Last administered on 03/08/17 14:35; Start 03/08/17 at 14:07; Stop 03/08/17 at 14:08; Status DC Sodium Chloride (Sodium Chloride 0.9% Inj) 20 ml STK-MED ONCE .ROUTE ; Start at 14:07; Stop 03/08/17 at 14:08; Status DC Vancomycin HCl (Vancomycin Inj) 1,000 mg STK-MED ONCE .ROUTE ; Start 03/08/17 at 14:42; Stop 03/08/17 at 14:43; Status DC Sodium Chloride (Sodium Chloride 0.9% Inj) 20 ml STK-MED ONCE .ROUTE ; Start at 14:42; Stop 03/08/17 at 14:43; Status DC Fentanyl Citrate (fentaNYL INJ) 500 mcg STK-MED ONCE .ROUTE ; Start 03/08/17 at 15:51; Stop 03/08/17 at 15:52; Status DC Miscellaneous Information ALL NURSING DEPARTME... UNSCH PRN .XX SEE LABEL COMMENTS; Start 03/08/17 at 15:40; Stop 03/09/17 at 15:39; Status DC Polyethylene Glycol/ Electrolytes (Colyte Liq) 4,000 ml ONCE ONCE NG Last administered on 03/08/17 22:42; Start 03/08/17 at 20:00; Stop 03/08/17 at 20:01 ; Status DC Lisinopril (Prinivil) 2.5 mg DAILY PO Last administered on 04/17/17 08:34; Start 03/09/17 at 09:00 Miscellaneous (Pill Splitter) 1 ea UNSCH PRN OTHER SEE LABEL COMMENTS; Start at 21:15 Dextrose 1,000 ml @ 84 mls/hr [id number] IV Last administered on 03/11/17 21:24 ; Start 03/09/17 at 23:45; Stop 03/11/17 at 23:38; Status DC Enoxaparin Sodium (Lovenox Inj) 40 mg Q24H SQ Last administered on 04/16/17 11 :40; Start 03/10/17 at 13:00; Status Future hold Bupivacaine HCl (Marcaine Pf 0.5% Inj) 30 ml STK-MED ONCE .ROUTE ; Start at 14:50; Stop 03/10/17 at 14:51; Status DC Lidocaine HCl (Xylocaine 2% Inj) 50 ml STK-MED ONCE .ROUTE ; Start 03/10/17 at 14:51; Stop 03/10/17 at 14:52; Status DC Bacitracin (Baciguent Oint) 15 applic STK-MED ONCE .ROUTE Last administered on 03/10/17 16:43; Start 03/10/17 at 14:51; Stop 03/10/17 at 14:52; Status DC Vancomycin HCl (Vancomycin Inj) 1,000 mg STK-MED ONCE .ROUTE Last administered on 03/10/17 15:49; Start 03/10/17 at 15:45; Stop 03/10/17 at 15:46; Status DC Sodium Chloride (Sodium Chloride 0.9% Inj) 20 ml STK-MED ONCE .ROUTE ; Start at 15:45; Stop 03/10/17 at 15:46; Status DC Neomycin/Polymyxin (Neosporin G.u. Irr) 2 ml STK-MED ONCE TOPICAL Last administered on 03/10/17 15:49; Start 03/10/17 at 15:49; Stop 03/10/17 at 15:59 ; Status DC Bacitracin (Baciguent Oint) 30 applic STK-MED ONCE .ROUTE Last administered on 03/10/17 16:44; Start 03/10/17 at 16:41; Stop 03/10/17 at 16:42; Status DC Hydromorphone HCl (Dilaudid Pf Inj) 2 mg STK-MED ONCE .ROUTE ; Start 03/10/17 at 16:47; Stop 03/10/17 at 16:48; Status DC Fentanyl Citrate (fentaNYL INJ) 250 mcg STK-MED ONCE .ROUTE ; Start 03/10/17 at 17:22; Stop 03/10/17 at 17:23; Status DC Morphine Sulfate (*morphine INJ PERIprocedure ONLY) 8 mg STK-MED ONCE .ROUTE Last administered on 03/10/17 18:12; Start 03/10/17 at 18:12; Stop 03/10/17 at 18:13; Status DC Miscellaneous Information ALL NURSING DEPARTME... UNSCH PRN .XX SEE LABEL COMMENTS; Start 03/10/17 at 14:30; Stop 03/11/17 at 14:29; Status DC Propofol (Diprivan 200 Mg/20 ml Inj) 200 mg STK-MED ONCE IV PUSH ; Start at 15:29; Stop 03/11/17 at 15:47; Status DC Oxybenzone/ Padimate O/ Dimethicone (Blistex Lip [place]) 4.25 applic STK-MED ONCE TOPICAL Last administered on 03/11/17 16:02; Start 03/11/17 at 16:02; Stop at 16:03; Status DC Miscellaneous Information ALL NURSING DEPARTME... UNSCH PRN .XX SEE LABEL COMMENTS; Start 03/11/17 at 16:00; Stop 03/12/17 at 15:59; Status DC Succinylcholine Chloride (Quelicin Inj) 200 mg STK-MED ONCE IV PUSH ; Start at 15:27; Stop 03/12/17 at 08:59; Status DC Sodium Chloride 250 ml @ 15 mls/hr ONCE ONCE IV Last administered on t 10:15; Start 03/12/17 at 10:15; Stop 03/13/17 at 02:54; Status DC Acetaminophen (Tylenol) 650 mg Q4H PRN PO SEE LABEL COMMENTS; Start 03/12/17 at 10:15; Stop 03/12/17 at 14:16; Status DC Diphenhydramine HCl (Benadryl) 25 mg Q4H PRN PO SEE LABEL COMMENTS; Start 03/12 at 10:15; Stop 03/12/17 at 14:16; Status DC Potassium Chloride 100 ml @ 50 mls/hr Q2H IV Last administered on 03/12/17 13 :25; Start 03/12/17 at 11:00; Stop 03/12/17 at 14:59; Status DC Lidocaine HCl (Xylocaine 2% Inj) 50 ml STK-MED ONCE .ROUTE ; Start 03/12/17 at 13:04; Stop 03/12/17 at 13:05; Status DC Mupirocin (Bactroban 2% Oint) 22 applic STK-MED ONCE .ROUTE ; Start 03/12/17 at 13:06; Stop 03/12/17 at 13:07; Status DC Hydromorphone HCl (Dilaudid Pf Inj) 2 mg STK-MED ONCE .ROUTE ; Start 03/12/17 at 15:18; Stop 03/12/17 at 15:19; Status DC Acetaminophen (Ofirmev Inj) 1,000 mg STK-MED ONCE IV ; Start 03/12/17 at 15:18; Stop 03/12/17 at 15:19; Status DC Vancomycin HCl (Vancomycin Inj) 1,000 mg STK-MED ONCE .ROUTE Last administered on 03/12/17 15:54; Start 03/12/17 at 15:57; Stop 03/12/17 at 15:58; Status DC Neomycin/Polymyxin (Neosporin G.u. Irr) 2 ml STK-MED ONCE TOPICAL Last administered on 03/12/17 15:54; Start 03/12/17 at 15:54; Stop 03/12/17 at 16:15 ; Status DC Fentanyl Citrate (fentaNYL INJ) 250 mcg STK-MED ONCE .ROUTE ; Start 03/12/17 at 17:04; Stop 03/12/17 at 17:05; Status DC Miscellaneous Information ALL NURSING DEPARTME... UNSCH PRN .XX SEE LABEL COMMENTS; Start 03/12/17 at 17:30; Stop 03/13/17 at 17:29; Status DC Morphine Sulfate (*morphine INJ PERIprocedure ONLY) 8 mg STK-MED ONCE .ROUTE Last administered on 03/12/17 17:33; Start 03/12/17 at 17:33; Stop 03/12/17 at 17:34; Status DC Lidocaine HCl (Xylocaine 1% Inj) 10 ml ONCE@0700 ONCE OTHER ; Start 03/13/17 at 07:00; Stop 03/13/17 at 07:01; Status DC Potassium Chloride/Sodium Chloride 1,000 ml @ 75 mls/hr [id number] IV Last administered on 04/07/17 10:54; Start 03/13/17 at 11:30; Stop 04/07/17 at 13:42 ; Status DC Polyethylene Glycol/ Electrolytes (Colyte Liq) 4,000 ml ONCE ONCE PEG Last administered on 03/14/17 17:13; Start 03/14/17 at 16:00; Stop 03/14/17 at 16:01 ; Status DC Sodium Chloride 250 ml @ 15 mls/hr ONCE ONCE IV Last administered on 21:30; Start 03/13/17 at 20:00; Stop 03/14/17 at 12:39; Status DC Polyethylene Glycol/ Electrolytes (Colyte Liq) 4,000 ml ONCE ONCE PO Last administered on 03/15/17 17:19; Start 03/15/17 at 16:45; Stop 03/15/17 at 16:48 ; Status DC Propofol (Diprivan 200 Mg/20 ml Inj) 180 mg ONCE ONCE IV Last administered on 03/15/17 16:45; Start 03/15/17 at 16:43; Stop 03/15/17 at 16:45; Status DC Sodium Biphosphate/ Sodium Phosphate (Fleets Enema (Adult)) 133 ml ONCE ONCE RECTAL Last administered on 03/16/17 14:45; Start 03/16/17 at 14:15; Stop at 14:21; Status DC Sodium Biphosphate/ Sodium Phosphate (Fleets Enema (Adult)) 133 ml ONCE ONCE RECTAL Last administered on 03/17/17 09:49; Start 03/17/17 at 08:00; Stop at 08:01; Status DC Propofol (Diprivan 200 Mg/20 ml Inj) 100 mg ONCE ONCE IV PUSH ; Start at 15:00; Stop 03/16/17 at 15:01; Status DC Midazolam HCl (Versed Inj) 2 mg STK-MED ONCE .ROUTE ; Start 03/16/17 at 15:34; Stop 03/16/17 at 15:35; Status DC Vancomycin HCl (Vancomycin Inj) 1,000 mg STK-MED ONCE .ROUTE Last administered on 03/18/17 18:58; Start 03/18/17 at 18:15; Stop 03/18/17 at 18:16; Status DC Fentanyl Citrate (fentaNYL INJ) 200 mcg STK-MED ONCE .ROUTE ; Start 03/18/17 at 19:50; Stop 03/18/17 at 19:51; Status DC Methocarbamol (Robaxin) 500 mg Q8HR PO Last administered on 04/14/17 05:25; Start 03/19/17 at 14:00; Stop 04/14/17 at 12:13; Status DC Acetaminophen 100 ml @ As Directed STK-MED ONCE IV ; Start 03/24/17 at 09:21; Stop 03/24/17 at 09:22; Status DC Midazolam HCl (Versed Inj) 2 mg STK-MED ONCE .ROUTE ; Start 03/24/17 at 09:21; Stop 03/24/17 at 09:22; Status DC Fentanyl Citrate (fentaNYL INJ) 100 mcg STK-MED ONCE .ROUTE ; Start 03/24/17 at 09:21; Stop 03/24/17 at 09:22; Status DC Fentanyl Citrate (fentaNYL INJ) 100 mcg STK-MED ONCE .ROUTE ; Start 03/24/17 at 09:21; Stop 03/24/17 at 09:22; Status DC Hydromorphone HCl (*DILAUDID PF INJ PERIprocedural ONLY) 1 mg STK-MED ONCE .ROUTE Last administered on 03/24/17 14:53; Start 03/24/17 at 14:53; Stop at 14:54; Status DC Meperidine HCl (*DEMEROL INJ PERIprocedural ONLY) 25 mg STK-MED ONCE .ROUTE Last administered on 03/24/17 15:01; Start 03/24/17 at 15:01; Stop 03/24/17 at 15:02; Status DC Fentanyl Citrate (fentaNYL INJ) 400 mcg STK-MED ONCE .ROUTE ; Start 03/24/17 at 15:01; Stop 03/24/17 at 15:02; Status DC Miscellaneous Information ALL NURSING DEPARTME... UNSCH PRN .XX SEE LABEL COMMENTS; Start 03/24/17 at 14:52; Stop 03/25/17 at 14:51; Status DC Polyethylene Glycol (Miralax) 17 gm DAILY PO ; Start 03/24/17 at 16:30; Status Cancel Acetaminophen (Tylenol) 650 mg Q4H PRN PO fever Last administered on 03/25/17 10:02; Start 03/25/17 at 10:00 Piperacillin Sod/ Tazobactam Sod 100 ml @ 200 mls/hr Q8H IV Last administered on 03/29/17 12:36; Start 03/25/17 at 20:00; Stop 03/29/17 at 14:34; Status DC Furosemide (Lasix Inj) 10 mg ONCE ONCE IV PUSH Last administered on 03/26/17 13:47; Start 03/26/17 at 13:30; Stop 03/26/17 at 13:34; Status DC Furosemide (Lasix Inj) 10 mg UNSCH X1 IV PUSH Last administered on 03/27/17 01 :31; Start 03/26/17 at 17:15; Stop 03/26/17 at 23:59; Status DC Levothyroxine Sodium (Synthroid) 50 mcg DAILY@0600 PO Last administered on 04/17 04:54; Start 03/30/17 at 06:00 Levothyroxine Sodium (Synthroid) 50 mcg ONCE ONCE PO Last administered on t 12:55; Start 03/29/17 at 12:00; Stop 03/29/17 at 12:02; Status DC Levofloxacin (Levaquin) 500 mg DAILY PO Last administered on 04/07/17t 08:46; Start 03/29/17 at 14:45; Stop 04/07/17 at 14:44; Status DC Propofol (Diprivan 200 Mg/20 ml Inj) 200 mg STK-MED ONCE IV ; Start 02/26/17 at 12:00; Stop 03/30/17 at 13:17; Status DC Neostigmine Methylsulfate (Prostigmin Inj) 3 mg STK-MED ONCE IV ; Start 02/26/17 at 12:00; Stop 03/30/17 at 13:17; Status DC Phenylephrine HCl (Neosynephrine/ NS 1000 Mcg/10ml Syr) 1,000 mcg STK-MED ONCE IV ; Start 02/26/17 at 12:00; Stop 03/30/17 at 13:17; Status DC Lactated Ringer's 2,000 ml @ As Directed STK-MED ONCE IV ; Start 02/26/17 at 12: 00; Stop 03/30/17 at 13:17; Status DC Propofol (Diprivan 200 Mg/20 ml Inj) 200 mg STK-MED ONCE IV ; Start 02/28/17 at 12:00; Stop 03/30/17 at 13:46; Status DC Neostigmine Methylsulfate (Prostigmin Inj) 3 mg STK-MED ONCE IV ; Start 02/28/17 at 12:00; Stop 03/30/17 at 13:46; Status DC Lactated Ringer's 2,000 ml @ As Directed STK-MED ONCE IV ; Start 02/28/17 at 12: 00; Stop 03/30/17 at 13:46; Status DC Propofol (Diprivan 200 Mg/20 ml Inj) 400 mg STK-MED ONCE IV ; Start 03/04/17 at 12:00; Stop 03/30/17 at 14:07; Status DC Ephedrine Sulfate (ePHEDrine/NS 25 MG/5 ML SYR) 25 mg STK-MED ONCE IV ; Start at 12:00; Stop 03/30/17 at 14:07; Status DC Phenylephrine HCl (Neosynephrine/ NS 1000 Mcg/10ml Syr) 2,000 mcg STK-MED ONCE IV ; Start 03/04/17 at 12:00; Stop 03/30/17 at 14:08; Status DC Ondansetron HCl (Zofran Inj) 4 mg STK-MED ONCE IV PUSH ; Start 03/04/17 at 12:00 ; Stop 03/30/17 at 14:08; Status DC Propofol (Diprivan 200 Mg/20 ml Inj) 200 mg STK-MED ONCE IV ; Start 03/08/17 at 12:00; Stop 03/30/17 at 14:49; Status DC Ephedrine Sulfate (ePHEDrine/NS 25 MG/5 ML SYR) 50 mg STK-MED ONCE IV ; Start at 12:00; Stop 03/30/17 at 14:49; Status DC Neostigmine Methylsulfate (Prostigmin Inj) 4 mg STK-MED ONCE IV ; Start at 12:00; Stop 03/30/17 at 14:49; Status DC Phenylephrine HCl (Neosynephrine/ NS 1000 Mcg/10ml Syr) 1,000 mcg STK-MED ONCE IV ; Start 03/08/17 at 12:00; Stop 03/30/17 at 14:49; Status DC Ondansetron HCl (Zofran Inj) 4 mg STK-MED ONCE IV PUSH ; Start 03/08/17 at 12:00 ; Stop 03/30/17 at 14:49; Status DC Lactated Ringer's 1,000 ml @ As Directed STK-MED ONCE IV ; Start 03/08/17 at 12 :00; Stop 03/30/17 at 14:49; Status DC Propofol (Diprivan 200 Mg/20 ml Inj) 200 mg STK-MED ONCE IV ; Start 03/10/17 at 12:00; Stop 03/30/17 at 15:08; Status DC Ephedrine Sulfate (ePHEDrine/NS 25 MG/5 ML SYR) 25 mg STK-MED ONCE IV ; Start at 12:00; Stop 03/30/17 at 15:08; Status DC Neostigmine Methylsulfate (Prostigmin Inj) 3 mg STK-MED ONCE IV ; Start at 12:00; Stop 03/30/17 at 15:08; Status DC Phenylephrine HCl (Neosynephrine/ NS 1000 Mcg/10ml Syr) 2,000 mcg STK-MED ONCE IV ; Start 03/10/17 at 12:00; Stop 03/30/17 at 15:08; Status DC Ondansetron HCl (Zofran Inj) 4 mg STK-MED ONCE IV PUSH ; Start 03/10/17 at 12:00 ; Stop 03/30/17 at 15:08; Status DC Lactated Ringer's 1,000 ml @ As Directed STK-MED ONCE IV ; Start 03/10/17 at 12 :00; Stop 03/30/17 at 15:08; Status DC Sodium Chloride 1,000 ml @ As Directed STK-MED ONCE IV ; Start 03/10/17 at 12: 00; Stop 03/30/17 at 15:08; Status DC Propofol (Diprivan 200 Mg/20 ml Inj) 200 mg STK-MED ONCE IV ; Start 03/12/17 at 12:00; Stop 03/30/17 at 15:20; Status DC Ephedrine Sulfate (ePHEDrine/NS 25 MG/5 ML SYR) 25 mg STK-MED ONCE IV ; Start at 12:00; Stop 03/30/17 at 15:20; Status DC Phenylephrine HCl (Neosynephrine/ NS 1000 Mcg/10ml Syr) 1,000 mcg STK-MED ONCE IV ; Start 03/12/17 at 12:00; Stop 03/30/17 at 15:20; Status DC Ondansetron HCl (Zofran Inj) 4 mg STK-MED ONCE IV PUSH ; Start 03/12/17 at 12:00 ; Stop 03/30/17 at 15:20; Status DC Lactated Ringer's 1,000 ml @ As Directed STK-MED ONCE IV ; Start 03/12/17 at 12 :00; Stop 03/30/17 at 15:20; Status DC Propofol (Diprivan 200 Mg/20 ml Inj) 200 mg STK-MED ONCE IV ; Start 03/18/17 at 12:00; Stop 03/30/17 at 15:38; Status DC Ondansetron HCl (Zofran Inj) 4 mg STK-MED ONCE IV PUSH ; Start 03/18/17 at 12:00 ; Stop 03/30/17 at 15:38; Status DC Neostigmine Methylsulfate (Prostigmin Inj) 3 mg STK-MED ONCE IV ; Start at 12:00; Stop 03/30/17 at 15:38; Status DC Phenylephrine HCl (Neosynephrine/ NS 1000 Mcg/10ml Syr) 1,000 mcg STK-MED ONCE IV ; Start 03/18/17 at 12:00; Stop 03/30/17 at 15:38; Status DC Oxycodone/ Acetaminophen (Percocet 5-325 Mg) 1 tab Q4H PRN PO pain 3 to 5; Start 04/02/17 at 13:00; Stop 04/09/17 at 17:08; Status DC Oxycodone/ Acetaminophen (Percocet 10-325 Mg) 1 tab Q4H PRN PO pain 6-10 Last administered on 04/09/17 14:14; Start 04/02/17 at 13:00; Stop 04/09/17 at 17:08 ; Status DC Magnesium Sulfate/ Dextrose 100 ml @ 100 mls/hr Q1H IV Last administered on 16:15; Start 04/03/17 at 14:00; Stop 04/03/17 at 15:59; Status DC Sodium Chloride (Sodium Chloride) 1 gm TID PO Last administered on 04/07/17 13 :24; Start 04/04/17 at 14:00; Stop 04/07/17 at 13:45; Status DC Calcium Chloride 2 gm/Sodium Chloride 120 ml @ 120 mls/hr ONCE ONCE IV Last administered on 04/04/17 15:45; Start 04/04/17 at 14:00; Stop 04/04/17 at 14:59 ; Status DC Hydromorphone HCl (Dilaudid Pf Inj) 0.2 mg Q6H PRN IV PUSH breakthrough pain Last administered on 04/13/17 03:27; Start 04/09/17 at 17:15; Stop 04/13/17 at 03:27; Status DC Acetaminophen/ Hydrocodone Bitart ([place] 7.5-325 Mg) 1 tab Q4H PRN PO PAIN 6- 10 Last administered on 04/17/17 08:34; Start 04/09/17 at 17:15 Acetaminophen/ Hydrocodone Bitart ([place] 5-325 Mg) 1 tab Q4H PRN PO PAIN 3-5 Last administered on 04/16/17 16:42; Start 04/09/17 at 17:15 Tolvaptan (Samsca) 15 mg ONCE ONCE PO Last administered on 04/09/17 22:49; Start 04/09/17 at 19:30; Stop 04/09/17 at 19:32; Status DC Carvedilol (Coreg) 6.25 mg Q12HR PO Last administered on 04/17/17 08:34; Start 04/10/17 at 09:00 Clonidine (Catapres) 0.2 mg Q8H PO Last administered on 04/17/17 11:43; Start 04/10/17 at 20:00 Methocarbamol (Robaxin) 750 mg Q8HR PO Last administered on 04/17/17 04:54; Start 04/14/17 at 14:00 A/P Assessment and Plan A/P Hyponatremia-sodium level fairly stable. continue fluid restriction 1200 ml/day. patient previously received Tolvaptan- monitor the sodium level. 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 distant showering of emboli to other joints. MRSA bacteremia Right ankle hardware infection, s/p partial removal of hardware. Deeper hardware embedded. SP RIGHT BKA Bilateral UE hand abscess and tenosynovitis, septic arthritis s.p multiple debridements. continue Daptomycin till 04/24/17 per ID Continue pain control. ID following Multiple surgeries thus far: - podiatry Dr. Reyes/Dr. Gamez on 02/26, 02/28, 03/04 - hand surgeon Dr. Bullock on 02/26, 02/28, 03/04, 03/08, 03/10 -right BKA Anemia Follow CBC Status post blood transfusion Acute Toxic/Metabolic Encephalopathy secondary to Sepsis-improved. Acute Alcohol Withdrawal - improved Hypertension Continue clonidine and Coreg, cardiology initiate low dose lisinopril, monitor renal function Follow blood pressures Adjust as needed for control Mild Systolic CHF Scrotal edema EF of 40-45% with global hypokinesis found on 02/28/17 Continue beta amarjit HYPOTHYROIDISM continue synthroid THADDEUS mostly vanco induced - resolved Monitor renal function Avoid nephrotoxins Previous event was likely secondary to ATN Nephrology following Hepatitis C- f/u as outpatient. Standard precautions DVT Prophylaxis Lovenox will dc wild cath. Discharge Planning previously d/w the case management; has to stay inpatient while receiving IV antibiotics. Flaca Houser MD Apr 17, 2017 11:55
[2017-04-17 12:00] VITALS: BP 117/62; PULSE 62; RESP 16; TEMP 98.7; O2SAT 99
[2017-04-17] MEDS: ENOXAPARIN SODIUM 40 MG/0.4 ML SYRINGE SQ SCH (12:53)
[2017-04-17 16:00] VITALS: BP 125/56; PULSE 60; RESP 16; TEMP 98.7; O2SAT 99
[2017-04-17] MEDS: ACETAMINOPHEN/HYDROcodone 325 MG/5 MG TAB PO PRN (17:33)
[2017-04-17 20:00] VITALS: BP 140/69; PULSE 61; RESP 18; TEMP 98.5; O2SAT 99
[2017-04-18] VITALS: BP 125/59; PULSE 61; RESP 18; TEMP 99.8; O2SAT 99
[2017-04-18] MEDS: PANTOPRAZOLE SODIUM 40 MG VIAL IV PUSH SCH ×2 (00:13→23:02)
[2017-04-18] MEDS: ACETAMINOPHEN/HYDROcodone 325 MG/5 MG TAB PO PRN (01:26)
[2017-04-18] MEDS: cloNIDine HCL 0.2 MG TAB PO SCH ×3 (03:38→21:37)
[2017-04-18 04:00] VITALS: BP 116/59; PULSE 62; RESP 18; TEMP 98.3; O2SAT 99
[2017-04-18] MEDS: LEVOTHYROXINE SODIUM 50 MCG TAB PO SCH (05:54)
[2017-04-18] MEDS: METHOCARBAMOL 500 MG TAB PO SCH ×3 (05:54→21:36)
[2017-04-18] MEDS: ACETAMINOPHEN/HYDROcodone 325 MG/7.5 MG TAB PO PRN ×5 (05:54→23:03)
[2017-04-18 08:00] VITALS: BP 118/63; PULSE 56; RESP 18; TEMP 98.4; O2SAT 97
[2017-04-18] MEDS: MULTIVITAMIN TAB PO SCH (09:01)
[2017-04-18] MEDS: THIAMINE HCL 100 MG TAB PO SCH (09:01)
[2017-04-18] MEDS: CARVEDILOL 6.25 MG TAB PO SCH ×2 (09:02→21:36)
[2017-04-18] MEDS: LISINOPRIL 5 MG TAB PO SCH (09:02)
[2017-04-18] MEDS: MUPIROCIN 2% OINT 1 APPLIC/GM SYR NASAL SCH ×2 (09:02→21:00)
--- NOTE | 2017-04-18 10:42 | HHI.PR ---
Subjective Remarks in no acute distress. pain is fairly controlled. no new complaints. afebrile. Objective Vitals Vital Signs Date Time Temp Pulse Resp B/P (MAP) Pulse Ox O2 Delivery O2 Flow Rate FiO2 04/18/17 08:00 98.4 56 18 118/63 (81) 97 04/18/17 04:00 Room Air 04/18/17 04:00 98.3 62 18 116/59 (78) 99 04/18/17 00:00 99.8 61 18 125/59 (81) 99 04/18/17 00:00 Room Air 04/17/17 20:00 98.5 61 18 140/69 (92) 99 04/17/17 20:00 Room Air 04/17/17 16:00 98.7 60 16 125/56 (79) 99 04/17/17 12:00 98.7 62 16 117/62 (80) 99 I/O 04/17/17 04/17/17 04/17/17 04/18/17 04/18/17 04/18/17 07:00 15:00 23:00 07:00 15:00 23:00 Intake Total 100 ml 600 ml 0 ml Output Total 1400 ml 1500 ml 825 ml Balance -1300 ml -900 ml 0 ml -825 ml Intake Oral 100 ml 600 ml TPN/PPN 0 ml Output Urine Total 1400 ml 1500 ml 825 ml Bladder Scan Volume Amount 499 ml # Bowel Movements 0 1 Result Diagram: 04/18/17 0823 Imaging Last Impressions Chest X-Ray 03/29/17 0000 Signed Impressions: Service Date/Time: Wednesday, March 29, 2017 12:17 - CONCLUSION: Stable chest. Isaac Stevenson MD FACR Tumor Localization 03/22/17 0000 Signed Impressions: Service Date/Time: Wednesday, March 22, 2017 13:03 - CONCLUSION: Nondiagnostic examination secondary to patient refusal Harry Lucio MD Abdomen X-Ray 03/08/17 0000 Signed Impressions: Service Date/Time: Wednesday, March 08, 2017 10:30 - CONCLUSION: Nonspecific, negative for obstruction or ileus. Isaac Stevenson MD FACR Lower Extremity CT 03/01/17 0000 Signed Impressions: Service Date/Time: Wednesday, March 01, 2017 11:12 - CONCLUSION: 1. No evidence of organized fluid collections to suggest an abscess. 2. Extensive soft tissue swelling surrounding the ankle and extending to the forefoot especially along the lateral aspect. 3. No erosive or destructive bone changes. 4. Bone defects compatible with previous excision device. Blake Rider MD Ankle X-Ray 02/26/17 0000 Signed Impressions: Service Date/Time: Sunday, February 26, 2017 17:15 - CONCLUSION: I see no retained surgical instruments. Isaac Stevenson MD FACR Upper Extremity Ultrasound 02/25/17 1734 Signed Impressions: Service Date/Time: February 17:54 - CONCLUSION: There is a thin fluid collection within the focal area of soft tissue swelling 2nd digit. Oscar Cassidy MD Hand X-Ray 02/25/17 0000 Signed Impressions: Service Date/Time: February 18:59 - CONCLUSION: No gross bony abnormality. Oscar Cassidy MD Lower Extremity Ultrasound 02/24/17 0000 Signed Impressions: Service Date/Time: Friday, February 24, 2017 13:41 - CONCLUSION: Negative for deep venous thrombosis. Isaac Stevenson MD FACR Head CT 02/24/17 0000 Signed Impressions: Service Date/Time: Friday, February 24, 2017 16:08 - CONCLUSION: 1. No acute intracranial abnormality. 2. Probable large mucocele in the sphenoid sinus. Ty Hankins MD Abdomen/Pelvis CT 02/24/17 0000 Signed Impressions: Service Date/Time: Friday, February 24, 2017 16:16 - CONCLUSION: 1. Marked gaseous distension of large and small bowel most suggestive of ileus. 2. There is no free air. 3. 2.2 cm left adrenal mass. 4. Distended bladder. Isaac Stevenson MD FACR Objective Remarks GENERAL: This is a well-nourished, well-developed patient, in no apparent distress. CARDIOVASCULAR: Regular rate and regular rhythm without murmurs, gallops, or rubs. RESPIRATORY: Clear to auscultation. Breath sounds equal bilaterally. No wheezes , rales, or rhonchi. GASTROINTESTINAL: Abdomen soft, non-tender, nondistended. Normal, active bowel sounds MUSCULOSKELETAL: right forearm covered with clean dressing- s/p right BKA NEURO: Alert & Oriented x4 to person, place, time, situation. Moves all ext x4 Procedures 03/10/2017 - Dr. Bullock exploration, wash, excisional debridement extensor tenosynovium right wrist/forearm/hand 03/08/17 - Dr. Bullock- exploration, wash, excisional debridement skin, subcutaneous tissue, extensor tenosynovitis right wrist and hand. Findings: necrotic tissue, minimal purulence, extensor tenosynovitis right wrist/hand 03/04/17 - Dr Gamez - Right leg and incision and drainage. Right foot delayed primary closure x3 03/04/17 - Dr. Bullock - Extensor tenosynovectomy second, third, fourth extensor compartments right wrist and excisional debridement wash index finger metacarpal phalangeal joint, excisional wash and excisional debridement left hand. 02/28/17 - Dr. Reyes - Right ankle wound debridement and washout. Implantation of antibiotic vancomycin beads. 02/28/17 - Dr. Bullock - Exploration, wash, excisional debridement index finger metacarpophalangeal joint right hand; Exploration, wash, excisional debridement metacarpophalangeal joint left index finger; Exploration, wash, excisional debridement extensor pollicis longus tendon right thumb and hand. 02/26/17 - Dr. Reyes - Right ankle incision and drainage, arthrotomy, removal infected hardware, bone biopsy. 02/26/17 - Dr. Bullock - Exploration, incision and drainage right hand abscess, Arthrotomy wash metacarpal phalangeal joint right index finger, Arthrotomy wash metacarpal phalangeal joint left index finger. Medications and IVs Current Medications Sodium Chloride 1,000 ml @ 999 mls/hr BOLUS ONCE IV Last administered on 13:38; Start 02/24/17 at 13:45; Stop 02/24/17 at 14:45; Status DC IV Flush (NS Flush) 2 ml UNSCH PRN IV FLUSH FLUSH AFTER USING IV ACCESS Last administered on 02/24/17 13:38; Start 02/24/17 at 13:45 Vancomycin HCl 1000 mg/Sodium Chloride 250 ml @ 250 mls/hr ONCE STAT IV Last administered on 02/24/17 15:49; Start 02/24/17 at 15:35; Stop 02/24/17 at 16:34; Status DC Cefepime HCl 2000 mg/Sodium Chloride 100 ml @ 200 mls/hr ONCE STAT IV Last administered on 02/24/17 16:36; Start 02/24/17 at 15:35; Stop 02/24/17 at 16:04; Status DC Potassium Bicarb/ Potassium Chloride (K-Lyte Cl Eff) 50 meq ONCE ONCE PO Last administered on 02/24/17 15:56; Start 02/24/17 at 16:00; Stop 02/24/17 at 16: 01; Status DC Iohexol (Omnipaque 350 Inj) 97 ml STK-MED ONCE IV Last administered on 16:29; Start 02/24/17 at 16:29; Stop 02/24/17 at 16:30; Status DC Sodium Chloride 1,000 ml @ 125 mls/hr Q8H IV Last administered on 03/02/17 09: 33; Start 02/24/17 at 18:00; Stop 03/02/17 at 13:08; Status DC Ondansetron HCl (Zofran Inj) 4 mg Q8HR PRN IV PUSH NAUSEA; Start 02/24/17 at 18: 00 Thiamine HCl (Vitamin B1) 100 mg ONCE ONCE PO Last administered on 02/24/17 20 :20; Start 02/24/17 at 20:15; Stop 02/24/17 at 20:16; Status DC Thiamine HCl (Vitamin B1) 100 mg DAILY PO Last administered on 04/18/17 09:01 ; Start 02/25/17 at 09:00 Potassium Chloride 100 ml @ 50 mls/hr Q2H IV Last administered on 02/24/17 22: 59; Start 02/24/17 at 20:30; Stop 02/25/17 at 00:29; Status DC Pharmacy Profile Note 0 ml @ 0 mls/hr UNSCH OTHER ; Start 02/24/17 at 20:15; Stop 03/02/17 at 13:23; Status DC Cefepime HCl 2000 mg/Sodium Chloride 100 ml @ 200 mls/hr Q12H IV Last administered on 02/27/17 05:51; Start 02/25/17 at 07:00; Stop 02/27/17 at 14:53; Status DC Vancomycin HCl 1500 mg/Sodium Chloride 515 ml @ 257.5 mls/ hr Q18H IV Last administered on 02/25/17 10:30; Start 02/25/17 at 10:00; Stop 02/25/17 at 11:30; Status DC Miscellaneous Information SPECIFIC LAB TO BE DRAWN:VANCO TROUGH DATE TO BE DR... ONCE ONCE .XX ; Start 02/26/17 at 21:45; Stop 02/26/17 at 21:46; Status DC Flumazenil (Romazicon Inj) 0.2 mg Q1M PRN IV PUSH SEE LABEL COMMENTS; Start 02/25/17 at 09:15 Lorazepam (Ativan) 1 mg Q4H PRN PO agitation Last administered on 03/20/17 03: 18; Start 02/25/17 at 09:15 Lorazepam (Ativan Inj) 1 mg Q4H PRN IV PUSH agitation when not taking po Last administered on 03/05/17 02:41; Start 02/25/17 at 09:15 Lorazepam (Ativan) 2 mg Q2H PRN PO CIWA 11-14; Start 02/25/17 at 09:15; Stop 02/28/17 at 07:44; Status DC Lorazepam (Ativan Inj) 2 mg Q2H PRN IV PUSH CIWA 11-14 Last administered on 02/26 18:14; Start 02/25/17 at 09:15; Stop 02/28/17 at 07:44; Status DC Lorazepam (Ativan Inj) 2 mg Q1H PRN IV PUSH CIWA 15-20 Last administered on 02/25 21:37; Start 02/25/17 at 09:15; Stop 02/28/17 at 07:44; Status DC Lorazepam (Ativan Inj) 2 mg Q15M PRN IV PUSH CIWA > 20 Last administered on 02/26 06:25; Start 02/25/17 at 09:15; Stop 02/28/17 at 07:44; Status DC Multivitamins (Theragran) 1 tab DAILY PO Last administered on 04/18/17 09:01; Start 02/26/17 at 09:00 Acetaminophen (Tylenol) 650 mg Q4H PRN PO FEVER Last administered on 03/07/17 04:47; Start 02/25/17 at 09:15; Stop 03/12/17 at 10:47; Status DC Lisinopril (Prinivil) 10 mg DAILY PO ; Start 02/26/17 at 09:00; Stop 03/08/17 at 21:09; Status DC Enoxaparin Sodium (Lovenox Inj) 40 mg Q24H SQ Last administered on 03/07/17 10 :00; Start 02/25/17 at 10:00; Stop 03/10/17 at 12:17; Status DC Vancomycin HCl 1500 mg/Sodium Chloride 515 ml @ 257.5 mls/ hr Q12H IV Last administered on 02/26/17 09:42; Start 02/25/17 at 22:00; Stop 02/26/17 at 12:06; Status DC Miscellaneous Information SPECIFIC LAB TO BE BIA... ONCE ONCE .XX Last administered on 02/26/17 09:45; Start 02/26/17 at 09:45; Stop 02/26/17 at 09:46; Status DC Chlordiazepoxide (Librium) 25 mg Q8H PO ; Start 02/25/17 at 17:00; Stop 02/25/17 at 20:24; Status DC Gentamicin Sulfate 70 mg/ Sodium Chloride 101.75 ml @ 100 mls/ hr ONCE ONCE IV Last administered on 02/25/17 18:51; Start 02/25/17 at 18:30; Stop 02/25/17 at 19:31; Status DC Dexmedetomidine HCl 200 mcg/ Sodium Chloride 52 ml @ 0 mls/hr TITRATE IV Last administered on 02/27/17 13:55; Start 02/25/17 at 17:30; Stop 03/09/17 at 23:34; Status DC Acetaminophen (Ofirmev Inj) 650 mg Q6H PRN IV TEMP >101 Last administered on 20:12; Start 02/25/17 at 21:00; Stop 04/17/17 at 08:33; Status DC Iohexol (Omnipaque 350 Inj) 75 ml STK-MED ONCE IV Last administered on 21:15; Start 02/25/17 at 21:15; Stop 02/25/17 at 21:16; Status DC Potassium Chloride 100 ml @ 50 mls/hr Q2H PRN IV For Potassium 2.8 - 3.2 mEq/L ; Start 02/25/17 at 22:45; Stop 03/01/17 at 23:53; Status DC Potassium Chloride 100 ml @ 50 mls/hr Q2H PRN IV For Potassium 2.8 - 3.2 mEq/ L Last administered on 02/28/17t 12:32; Start 02/25/17 at 22:45; Stop 03/01/17 at 23:53; Status DC Potassium Bicarb/ Potassium Chloride (K-Lyte Cl Eff) 50 meq UNSCH PRN PO For Potassium 3.3 - 3.5 mEq/L; Start 02/25/17 at 22:45; Stop 03/01/17 at 23:53; Status DC Potassium Chloride 100 ml @ 25 mls/hr UNSCH PRN IV For Potassium 3.3 - 3.5 mEq /L; Start 02/25/17 at 22:45; Stop 03/01/17 at 23:53; Status DC Potassium Chloride 100 ml @ 50 mls/hr Q2H PRN IV For Potassium 3.3 - 3.5 mEq/ L Last administered on 02/28/17t 06:39; Start 02/25/17 at 22:45; Stop 03/01/17 at 23:53; Status DC Magnesium Sulfate 4 gm/Sodium Chloride 100 ml @ 50 mls/hr UNSCH PRN IV For Magnesium 0.9 - 1.1 mg/dL; Start 02/25/17 at 22:45; Stop 03/01/17 at 23:53; Status DC Magnesium Oxide (Mag-Ox) 800 mg UNSCH PRN PO For Magnesium 1.2 - 1.6 mg/dL; Start 02/25/17 at 22:45; Stop 03/01/17 at 23:53; Status DC Magnesium Sulfate 2 gm/Sodium Chloride 100 ml @ 50 mls/hr UNSCH PRN IV For Magnesium 1.2 - 1.6 mg/dL; Start 02/25/17 at 22:45; Stop 03/01/17 at 23:53; Status DC Potassium Phosphate (K-Phos) 2,000 mg Q4H PRN PO For Phosphorus < 2.5 mg/dL; Start 02/25/17 at 22:45; Stop 03/01/17 at 23:53; Status DC Sodium Phosphate 30 mmol/Sodium Chloride 250 ml @ 42 mls/hr UNSCH PRN IV For Phosphorus < 2.5 mg/dL Last administered on 02/26/17 23:19; Start 02/25/17 at 22: 45; Stop 03/01/17 at 23:53; Status DC Potassium Phosphate (K-Phos) 2,000 mg UNSCH PRN PO/TUBE SEE LABEL COMMENTS; Start 02/25/17 at 22:45; Stop 03/01/17 at 23:53; Status DC Potassium Phosphate 30 mmol/ Sodium Chloride 260 ml @ 42 mls/hr UNSCH PRN IV SEE LABEL COMMENTS; Start 02/25/17 at 22:45; Stop 03/01/17 at 23:53; Status DC Labetalol HCl (Trandate Inj) 10 mg Q6H PRN IV PUSH SBP >165; Start 02/25/17 at 23:15 Pantoprazole Sodium (Protonix Inj) 40 mg Q24H IV PUSH Last administered on 04/18 00:13; Start 02/26/17 at 00:00 Miscellaneous Information Patient in critical care unit? Ass... [id number] .XX ; Start 02/26/17 at 07:15 Mupirocin (Bactroban Nasal 2% Oint) 1 applic BID NASAL Last administered on 09:02; Start 02/26/17 at 09:00 Chlorhexidine Gluconate (Chlorhexidine 2% Cloth) 3 pack DAILY@04 TOPICAL Last administered on 03/03/17 04:00; Start 02/27/17 at 04:00; Stop 03/03/17 at 04:01; Status DC Chlorhexidine Gluconate (Chlorhexidine 2% Cloth) 3 pack UNSCH PRN TOPICAL HYGIENIC CARE; Start 02/26/17 at 07:15; Stop 03/03/17 at 07:07; Status DC Lidocaine HCl (Xylocaine 2% Inj) 50 ml STK-MED ONCE .ROUTE ; Start 02/26/17 at 09 :35; Stop 02/26/17 at 09:36; Status DC Bupivacaine HCl (Marcaine Pf 0.5% Inj) 60 ml STK-MED ONCE .ROUTE ; Start at 09:35; Stop 02/26/17 at 09:36; Status DC Mupirocin (Bactroban 2% Oint) 22 applic STK-MED ONCE .ROUTE ; Start 02/26/17 at 09:35; Stop 02/26/17 at 09:36; Status DC Vancomycin HCl 1250 mg/Sodium Chloride 262.5 ml @ 250 mls/hr Q12H IV Last administered on 03/02/17 09:33; Start 02/26/17 at 22:00; Stop 03/02/17 at 13:23; Status DC Miscellaneous Information SPECIFIC LAB TO BE BIA... ONCE ONCE .XX Last administered on 02/27/17 22:46; Start 02/27/17 at 21:45; Stop 02/27/17 at 21:46; Status DC Neomycin/Polymyxin (Neosporin G.u. Irr) 3 ml STK-MED ONCE TOPICAL Last administered on 02/26/17 13:06; Start 02/26/17 at 13:06; Stop 02/26/17 at 16:26; Status DC Neomycin/Polymyxin (Neosporin G.u. Irr) 4 ml STK-MED ONCE TOPICAL Last administered on 02/26/17 15:47; Start 02/26/17 at 15:47; Stop 02/26/17 at 16:26; Status DC Fentanyl Citrate (fentaNYL INJ) 250 mcg STK-MED ONCE .ROUTE ; Start 02/26/17 at 18:16; Stop 02/26/17 at 18:17; Status DC Fentanyl Citrate (fentaNYL INJ) 100 mcg STK-MED ONCE .ROUTE ; Start 02/26/17 at 18:16; Stop 02/26/17 at 18:17; Status DC Miscellaneous Information ALL NURSING DEPARTME... UNSCH PRN .XX SEE LABEL COMMENTS; Start 02/26/17 at 17:57; Stop 02/27/17 at 17:56; Status DC Clonidine (Catapres) 0.3 mg Q8HR PO Last administered on 04/10/17 12:33; Start 02/26/17 at 22:11; Stop 04/10/17 at 12:52; Status DC Diazepam (Valium) 5 mg Taper DAILY PO Last administered on 03/06/17 09:49; Start 02/26/17 at 22:15; Stop 03/06/17 at 22:14; Status DC Water (Free Water) 200 ml Q8HR G-TUBE Last administered on 02/27/17 22:31; Start 02/27/17 at 06:55; Stop 02/28/17 at 07:41; Status DC Rifampin 300 mg/ Sodium Chloride 100 ml @ 100 mls/hr Q12H IV Last administered on 03/02/17 14:41; Start 02/27/17 at 15:00; Stop 03/02/17 at 16:41; Status DC Oxycodone HCl (Roxicodone) 5 mg Q4H PRN PO pain 1-5 Last administered on 09:26; Start 02/28/17 at 07:45; Stop 04/09/17 at 17:08; Status DC Hydromorphone HCl (Dilaudid Pf Inj) 0.5 mg Q3H PRN IV PUSH pain 6-10 or not taking po Last administered on 04/09/17 16:51; Start 02/28/17 at 07:45; Stop at 17:08; Status DC Water (Free Water) 300 ml Q4HR G-TUBE Last administered on 03/02/17 20:00; Start 02/28/17 at 08:00; Stop 03/02/17 at 23:07; Status DC Vancomycin HCl (Vancomycin Inj) 1,000 mg STK-MED ONCE .ROUTE Last administered on 02/28/17 09:01; Start 02/28/17 at 09:01; Stop 02/28/17 at 09:02; Status DC Vancomycin HCl (Vancomycin Inj) 1,000 mg STK-MED ONCE .ROUTE Last administered on 02/28/17 09:33; Start 02/28/17 at 09:33; Stop 02/28/17 at 09:34; Status DC Vancomycin HCl (Vancomycin Inj) 1,000 mg STK-MED ONCE .ROUTE Last administered on 02/28/17 09:36; Start 02/28/17 at 09:33; Stop 02/28/17 at 09:34; Status DC Daptomycin 450 mg/ Sodium Chloride 100 ml @ 200 mls/hr Q24H IV Last administered on 03/05/17 13:41; Start 02/28/17 at 12:00; Stop 03/05/17 at 18:00 ; Status DC Vancomycin HCl (Vancomycin Inj) 1,000 mg STK-MED ONCE .ROUTE Last administered on 02/28/17 10:45; Start 02/28/17 at 10:42; Stop 02/28/17 at 10:43; Status DC Vancomycin HCl (Vancomycin Inj) 500 mg STK-MED ONCE .ROUTE Last administered on 02/28/17 10:45; Start 02/28/17 at 10:42; Stop 02/28/17 at 10:43; Status DC Fentanyl Citrate (fentaNYL INJ) 250 mcg STK-MED ONCE .ROUTE ; Start 02/28/17 at 11:48; Stop 02/28/17 at 11:49; Status DC Miscellaneous Information ALL NURSING DEPARTME... UNSCH PRN .XX SEE LABEL COMMENTS; Start 02/28/17 at 11:33; Stop 03/01/17 at 11:32; Status DC Miscellaneous Information SPECIFIC LAB TO BE BIA... ONCE ONCE .XX ; Start 03/04 at 09:45; Stop 03/04/17 at 09:46; Status Cancel Sodium Chloride 1,000 ml @ 999 mls/hr BOLUS ONCE IV Last administered on 13:28; Start 03/02/17 at 13:15; Stop 03/02/17 at 14:15; Status DC Sodium Chloride 1,000 ml @ 125 mls/hr Q8H IV Last administered on 03/02/17 14: 18; Start 03/02/17 at 13:15; Stop 03/02/17 at 14:30; Status DC Rifampin (Rifampin) 300 mg Q12HR PO Last administered on 03/23/17 08:42; Start 03/02/17 at 21:00; Stop 03/23/17 at 18:40; Status DC Potassium Chloride 20 meq/ Sodium Chloride 38.5 meq/Sterile Water 1,010 ml @ 55 mls/hr [id number] IV Last administered on 03/09/17 22:51; Start 03/03/17 at 11: 00; Stop 03/09/17 at 23:36; Status DC Furosemide (Lasix Inj) 20 mg ONCE ONCE IV PUSH Last administered on 03/03/17 10:19; Start 03/03/17 at 09:30; Stop 03/03/17 at 09:43; Status DC Carvedilol (Coreg) 6.25 mg Q12HR PO Last administered on 04/09/17 08:40; Start 03/03/17 at 21:00; Stop 04/10/17 at 03:26; Status DC Vancomycin HCl (Vancomycin Inj) 1,000 mg STK-MED ONCE .ROUTE Last administered on 03/04/17 15:52; Start 03/04/17 at 15:10; Stop 03/04/17 at 15:11; Status DC Fentanyl Citrate (fentaNYL INJ) 100 mcg STK-MED ONCE .ROUTE ; Start 03/04/17 at 16:38; Stop 03/04/17 at 16:39; Status DC Fentanyl Citrate (fentaNYL INJ) 250 mcg STK-MED ONCE .ROUTE ; Start 03/04/17 at 16:38; Stop 03/04/17 at 16:39; Status DC Vancomycin HCl (Vancomycin Inj) 1,000 mg STK-MED ONCE .ROUTE Last administered on 03/04/17 16:52; Start 03/04/17 at 16:59; Stop 03/04/17 at 17:00; Status DC Fentanyl Citrate (fentaNYL INJ) 100 mcg STK-MED ONCE .ROUTE ; Start 03/04/17 at 18:24; Stop 03/04/17 at 18:25; Status DC Fentanyl Citrate (fentaNYL INJ) 250 mcg STK-MED ONCE .ROUTE ; Start 03/04/17 at 18:25; Stop 03/04/17 at 18:26; Status DC Miscellaneous Information ALL NURSING DEPARTME... UNSCH PRN .XX SEE LABEL COMMENTS; Start 03/04/17 at 19:15; Stop 03/05/17 at 19:14; Status DC Daptomycin 550 mg/ Sodium Chloride 100 ml @ 200 mls/hr Q24H IV Last administered on 04/17/17 11:43; Start 03/06/17 at 12:00 Bisacodyl (Dulcolax Supp) 10 mg DAILY PRN RECTAL SEVERE CONSITIPATION; Start at 21:00 Lactulose (Lactulose Liq) 30 ml DAILY PRN NG SEVERE CONSITIPATION Last administered on 03/07/17 18:45; Start 03/06/17 at 21:00 Docusate Sodium (Colace Liq) 100 mg Q12HR PO Last administered on 03/09/17 09: 30; Start 03/06/17 at 21:15; Status Future Hold Sodium Chloride 250 ml @ 15 mls/hr ONCE ONCE IV Last administered on 00:27; Start 03/07/17 at 19:00; Stop 03/08/17 at 12:06; Status DC Furosemide (Lasix Inj) 20 mg ONCE ONCE IV Last administered on 03/08/17 03:49 ; Start 03/07/17 at 19:00; Stop 03/07/17 at 19:01; Status DC Polyethylene Glycol/ Electrolytes (Colyte Liq) 4,000 ml ONCE ONCE PO ; Start at 11:00; Stop 03/08/17 at 11:01; Status Cancel Mupirocin (Bactroban 2% Oint) 22 applic STK-MED ONCE .ROUTE ; Start 03/08/17 at 12:10; Stop 03/08/17 at 12:11; Status DC Lidocaine HCl (Xylocaine 2% Inj) 50 ml STK-MED ONCE .ROUTE ; Start 03/08/17 at 12:13; Stop 03/08/17 at 12:14; Status DC Bupivacaine HCl (Marcaine Pf 0.5% Inj) 30 ml STK-MED ONCE .ROUTE ; Start at 12:17; Stop 03/08/17 at 12:18; Status DC Famotidine (Pepcid Inj) 20 mg STK-MED ONCE .ROUTE ; Start 03/08/17 at 13:17; Stop 03/08/17 at 13:18; Status DC Vancomycin HCl (Vancomycin Inj) 1,000 mg STK-MED ONCE .ROUTE Last administered on 03/08/17 14:35; Start 03/08/17 at 14:07; Stop 03/08/17 at 14:08; Status DC Sodium Chloride (Sodium Chloride 0.9% Inj) 20 ml STK-MED ONCE .ROUTE ; Start at 14:07; Stop 03/08/17 at 14:08; Status DC Vancomycin HCl (Vancomycin Inj) 1,000 mg STK-MED ONCE .ROUTE ; Start 03/08/17 at 14:42; Stop 03/08/17 at 14:43; Status DC Sodium Chloride (Sodium Chloride 0.9% Inj) 20 ml STK-MED ONCE .ROUTE ; Start at 14:42; Stop 03/08/17 at 14:43; Status DC Fentanyl Citrate (fentaNYL INJ) 500 mcg STK-MED ONCE .ROUTE ; Start 03/08/17 at 15:51; Stop 03/08/17 at 15:52; Status DC Miscellaneous Information ALL NURSING DEPARTME... UNSCH PRN .XX SEE LABEL COMMENTS; Start 03/08/17 at 15:40; Stop 03/09/17 at 15:39; Status DC Polyethylene Glycol/ Electrolytes (Colyte Liq) 4,000 ml ONCE ONCE NG Last administered on 03/08/17 22:42; Start 03/08/17 at 20:00; Stop 03/08/17 at 20:01 ; Status DC Lisinopril (Prinivil) 2.5 mg DAILY PO Last administered on 04/18/17 09:02; Start 03/09/17 at 09:00 Miscellaneous (Pill Splitter) 1 ea UNSCH PRN OTHER SEE LABEL COMMENTS; Start at 21:15 Dextrose 1,000 ml @ 84 mls/hr [id number] IV Last administered on 03/11/17 21:24 ; Start 03/09/17 at 23:45; Stop 03/11/17 at 23:38; Status DC Enoxaparin Sodium (Lovenox Inj) 40 mg Q24H SQ Last administered on 04/17/17 12 :53; Start 03/10/17 at 13:00; Status Future hold Bupivacaine HCl (Marcaine Pf 0.5% Inj) 30 ml STK-MED ONCE .ROUTE ; Start at 14:50; Stop 03/10/17 at 14:51; Status DC Lidocaine HCl (Xylocaine 2% Inj) 50 ml STK-MED ONCE .ROUTE ; Start 03/10/17 at 14:51; Stop 03/10/17 at 14:52; Status DC Bacitracin (Baciguent Oint) 15 applic STK-MED ONCE .ROUTE Last administered on 03/10/17 16:43; Start 03/10/17 at 14:51; Stop 03/10/17 at 14:52; Status DC Vancomycin HCl (Vancomycin Inj) 1,000 mg STK-MED ONCE .ROUTE Last administered on 03/10/17 15:49; Start 03/10/17 at 15:45; Stop 03/10/17 at 15:46; Status DC Sodium Chloride (Sodium Chloride 0.9% Inj) 20 ml STK-MED ONCE .ROUTE ; Start at 15:45; Stop 03/10/17 at 15:46; Status DC Neomycin/Polymyxin (Neosporin G.u. Irr) 2 ml STK-MED ONCE TOPICAL Last administered on 03/10/17 15:49; Start 03/10/17 at 15:49; Stop 03/10/17 at 15:59 ; Status DC Bacitracin (Baciguent Oint) 30 applic STK-MED ONCE .ROUTE Last administered on 03/10/17 16:44; Start 03/10/17 at 16:41; Stop 03/10/17 at 16:42; Status DC Hydromorphone HCl (Dilaudid Pf Inj) 2 mg STK-MED ONCE .ROUTE ; Start 03/10/17 at 16:47; Stop 03/10/17 at 16:48; Status DC Fentanyl Citrate (fentaNYL INJ) 250 mcg STK-MED ONCE .ROUTE ; Start 03/10/17 at 17:22; Stop 03/10/17 at 17:23; Status DC Morphine Sulfate (*morphine INJ PERIprocedure ONLY) 8 mg STK-MED ONCE .ROUTE Last administered on 03/10/17 18:12; Start 03/10/17 at 18:12; Stop 03/10/17 at 18:13; Status DC Miscellaneous Information ALL NURSING DEPARTME... UNSCH PRN .XX SEE LABEL COMMENTS; Start 03/10/17 at 14:30; Stop 03/11/17 at 14:29; Status DC Propofol (Diprivan 200 Mg/20 ml Inj) 200 mg STK-MED ONCE IV PUSH ; Start at 15:29; Stop 03/11/17 at 15:47; Status DC Oxybenzone/ Padimate O/ Dimethicone (Blistex Lip [place]) 4.25 applic STK-MED ONCE TOPICAL Last administered on 03/11/17 16:02; Start 03/11/17 at 16:02; Stop at 16:03; Status DC Miscellaneous Information ALL NURSING DEPARTME... UNSCH PRN .XX SEE LABEL COMMENTS; Start 03/11/17 at 16:00; Stop 03/12/17 at 15:59; Status DC Succinylcholine Chloride (Quelicin Inj) 200 mg STK-MED ONCE IV PUSH ; Start at 15:27; Stop 03/12/17 at 08:59; Status DC Sodium Chloride 250 ml @ 15 mls/hr ONCE ONCE IV Last administered on 10:15; Start 03/12/17 at 10:15; Stop 03/13/17 at 02:54; Status DC Acetaminophen (Tylenol) 650 mg Q4H PRN PO SEE LABEL COMMENTS; Start 03/12/17 at 10:15; Stop 03/12/17 at 14:16; Status DC Diphenhydramine HCl (Benadryl) 25 mg Q4H PRN PO SEE LABEL COMMENTS; Start 03/12 at 10:15; Stop 03/12/17 at 14:16; Status DC Potassium Chloride 100 ml @ 50 mls/hr Q2H IV Last administered on 03/12/17 13 :25; Start 03/12/17 at 11:00; Stop 03/12/17 at 14:59; Status DC Lidocaine HCl (Xylocaine 2% Inj) 50 ml STK-MED ONCE .ROUTE ; Start 03/12/17 at 13:04; Stop 03/12/17 at 13:05; Status DC Mupirocin (Bactroban 2% Oint) 22 applic STK-MED ONCE .ROUTE ; Start 03/12/17 at 13:06; Stop 03/12/17 at 13:07; Status DC Hydromorphone HCl (Dilaudid Pf Inj) 2 mg STK-MED ONCE .ROUTE ; Start 03/12/17 at 15:18; Stop 03/12/17 at 15:19; Status DC Acetaminophen (Ofirmev Inj) 1,000 mg STK-MED ONCE IV ; Start 03/12/17 at 15:18; Stop 03/12/17 at 15:19; Status DC Vancomycin HCl (Vancomycin Inj) 1,000 mg STK-MED ONCE .ROUTE Last administered on 03/12/17 15:54; Start 03/12/17 at 15:57; Stop 03/12/17 at 15:58; Status DC Neomycin/Polymyxin (Neosporin G.u. Irr) 2 ml STK-MED ONCE TOPICAL Last administered on 03/12/17 15:54; Start 03/12/17 at 15:54; Stop 03/12/17 at 16:15 ; Status DC Fentanyl Citrate (fentaNYL INJ) 250 mcg STK-MED ONCE .ROUTE ; Start 03/12/17 at 17:04; Stop 03/12/17 at 17:05; Status DC Miscellaneous Information ALL NURSING DEPARTME... UNSCH PRN .XX SEE LABEL COMMENTS; Start 03/12/17 at 17:30; Stop 03/13/17 at 17:29; Status DC Morphine Sulfate (*morphine INJ PERIprocedure ONLY) 8 mg STK-MED ONCE .ROUTE Last administered on 03/12/17 17:33; Start 03/12/17 at 17:33; Stop 03/12/17 at 17:34; Status DC Lidocaine HCl (Xylocaine 1% Inj) 10 ml ONCE@0700 ONCE OTHER ; Start 03/13/17 at 07:00; Stop 03/13/17 at 07:01; Status DC Potassium Chloride/Sodium Chloride 1,000 ml @ 75 mls/hr [id number] IV Last administered on 04/07/17 10:54; Start 03/13/17 at 11:30; Stop 04/07/17 at 13:42 ; Status DC Polyethylene Glycol/ Electrolytes (Colyte Liq) 4,000 ml ONCE ONCE PEG Last administered on 03/14/17 17:13; Start 03/14/17 at 16:00; Stop 03/14/17 at 16:01 ; Status DC Sodium Chloride 250 ml @ 15 mls/hr ONCE ONCE IV Last administered on 21:30; Start 03/13/17 at 20:00; Stop 03/14/17 at 12:39; Status DC Polyethylene Glycol/ Electrolytes (Colyte Liq) 4,000 ml ONCE ONCE PO Last administered on 03/15/17 17:19; Start 03/15/17 at 16:45; Stop 03/15/17 at 16:48 ; Status DC Propofol (Diprivan 200 Mg/20 ml Inj) 180 mg ONCE ONCE IV Last administered on 03/15/17 16:45; Start 03/15/17 at 16:43; Stop 03/15/17 at 16:45; Status DC Sodium Biphosphate/ Sodium Phosphate (Fleets Enema (Adult)) 133 ml ONCE ONCE RECTAL Last administered on 03/16/17 14:45; Start 03/16/17 at 14:15; Stop at 14:21; Status DC Sodium Biphosphate/ Sodium Phosphate (Fleets Enema (Adult)) 133 ml ONCE ONCE RECTAL Last administered on 03/17/17 09:49; Start 03/17/17 at 08:00; Stop at 08:01; Status DC Propofol (Diprivan 200 Mg/20 ml Inj) 100 mg ONCE ONCE IV PUSH ; Start at 15:00; Stop 03/16/17 at 15:01; Status DC Midazolam HCl (Versed Inj) 2 mg STK-MED ONCE .ROUTE ; Start 03/16/17 at 15:34; Stop 03/16/17 at 15:35; Status DC Vancomycin HCl (Vancomycin Inj) 1,000 mg STK-MED ONCE .ROUTE Last administered on 03/18/17 18:58; Start 03/18/17 at 18:15; Stop 03/18/17 at 18:16; Status DC Fentanyl Citrate (fentaNYL INJ) 200 mcg STK-MED ONCE .ROUTE ; Start 03/18/17 at 19:50; Stop 03/18/17 at 19:51; Status DC Methocarbamol (Robaxin) 500 mg Q8HR PO Last administered on 04/14/17 05:25; Start 03/19/17 at 14:00; Stop 04/14/17 at 12:13; Status DC Acetaminophen 100 ml @ As Directed STK-MED ONCE IV ; Start 03/24/17 at 09:21; Stop 03/24/17 at 09:22; Status DC Midazolam HCl (Versed Inj) 2 mg STK-MED ONCE .ROUTE ; Start 03/24/17 at 09:21; Stop 03/24/17 at 09:22; Status DC Fentanyl Citrate (fentaNYL INJ) 100 mcg STK-MED ONCE .ROUTE ; Start 03/24/17 at 09:21; Stop 03/24/17 at 09:22; Status DC Fentanyl Citrate (fentaNYL INJ) 100 mcg STK-MED ONCE .ROUTE ; Start 03/24/17 at 09:21; Stop 03/24/17 at 09:22; Status DC Hydromorphone HCl (*DILAUDID PF INJ PERIprocedural ONLY) 1 mg STK-MED ONCE .ROUTE Last administered on 03/24/17 14:53; Start 03/24/17 at 14:53; Stop at 14:54; Status DC Meperidine HCl (*DEMEROL INJ PERIprocedural ONLY) 25 mg STK-MED ONCE .ROUTE Last administered on 03/24/17 15:01; Start 03/24/17 at 15:01; Stop 03/24/17 at 15:02; Status DC Fentanyl Citrate (fentaNYL INJ) 400 mcg STK-MED ONCE .ROUTE ; Start 03/24/17 at 15:01; Stop 03/24/17 at 15:02; Status DC Miscellaneous Information ALL NURSING DEPARTME... UNSCH PRN .XX SEE LABEL COMMENTS; Start 03/24/17 at 14:52; Stop 03/25/17 at 14:51; Status DC Polyethylene Glycol (Miralax) 17 gm DAILY PO ; Start 03/24/17 at 16:30; Status Cancel Acetaminophen (Tylenol) 650 mg Q4H PRN PO fever Last administered on 03/25/17 10:02; Start 03/25/17 at 10:00 Piperacillin Sod/ Tazobactam Sod 100 ml @ 200 mls/hr Q8H IV Last administered on 03/29/17 12:36; Start 03/25/17 at 20:00; Stop 03/29/17 at 14:34; Status DC Furosemide (Lasix Inj) 10 mg ONCE ONCE IV PUSH Last administered on 03/26/17 13:47; Start 03/26/17 at 13:30; Stop 03/26/17 at 13:34; Status DC Furosemide (Lasix Inj) 10 mg UNSCH X1 IV PUSH Last administered on 03/27/17 01 :31; Start 03/26/17 at 17:15; Stop 03/26/17 at 23:59; Status DC Levothyroxine Sodium (Synthroid) 50 mcg DAILY@0600 PO Last administered on 04/18 05:54; Start 03/30/17 at 06:00 Levothyroxine Sodium (Synthroid) 50 mcg ONCE ONCE PO Last administered on t 12:55; Start 03/29/17 at 12:00; Stop 03/29/17 at 12:02; Status DC Levofloxacin (Levaquin) 500 mg DAILY PO Last administered on 04/07/17t 08:46; Start 03/29/17 at 14:45; Stop 04/07/17 at 14:44; Status DC Propofol (Diprivan 200 Mg/20 ml Inj) 200 mg STK-MED ONCE IV ; Start 02/26/17 at 12:00; Stop 03/30/17 at 13:17; Status DC Neostigmine Methylsulfate (Prostigmin Inj) 3 mg STK-MED ONCE IV ; Start 02/26/17 at 12:00; Stop 03/30/17 at 13:17; Status DC Phenylephrine HCl (Neosynephrine/ NS 1000 Mcg/10ml Syr) 1,000 mcg STK-MED ONCE IV ; Start 02/26/17 at 12:00; Stop 03/30/17 at 13:17; Status DC Lactated Ringer's 2,000 ml @ As Directed STK-MED ONCE IV ; Start 02/26/17 at 12: 00; Stop 03/30/17 at 13:17; Status DC Propofol (Diprivan 200 Mg/20 ml Inj) 200 mg STK-MED ONCE IV ; Start 02/28/17 at 12:00; Stop 03/30/17 at 13:46; Status DC Neostigmine Methylsulfate (Prostigmin Inj) 3 mg STK-MED ONCE IV ; Start 02/28/17 at 12:00; Stop 03/30/17 at 13:46; Status DC Lactated Ringer's 2,000 ml @ As Directed STK-MED ONCE IV ; Start 02/28/17 at 12: 00; Stop 03/30/17 at 13:46; Status DC Propofol (Diprivan 200 Mg/20 ml Inj) 400 mg STK-MED ONCE IV ; Start 03/04/17 at 12:00; Stop 03/30/17 at 14:07; Status DC Ephedrine Sulfate (ePHEDrine/NS 25 MG/5 ML SYR) 25 mg STK-MED ONCE IV ; Start at 12:00; Stop 03/30/17 at 14:07; Status DC Phenylephrine HCl (Neosynephrine/ NS 1000 Mcg/10ml Syr) 2,000 mcg STK-MED ONCE IV ; Start 03/04/17 at 12:00; Stop 03/30/17 at 14:08; Status DC Ondansetron HCl (Zofran Inj) 4 mg STK-MED ONCE IV PUSH ; Start 03/04/17 at 12:00 ; Stop 03/30/17 at 14:08; Status DC Propofol (Diprivan 200 Mg/20 ml Inj) 200 mg STK-MED ONCE IV ; Start 03/08/17 at 12:00; Stop 03/30/17 at 14:49; Status DC Ephedrine Sulfate (ePHEDrine/NS 25 MG/5 ML SYR) 50 mg STK-MED ONCE IV ; Start at 12:00; Stop 03/30/17 at 14:49; Status DC Neostigmine Methylsulfate (Prostigmin Inj) 4 mg STK-MED ONCE IV ; Start at 12:00; Stop 03/30/17 at 14:49; Status DC Phenylephrine HCl (Neosynephrine/ NS 1000 Mcg/10ml Syr) 1,000 mcg STK-MED ONCE IV ; Start 03/08/17 at 12:00; Stop 03/30/17 at 14:49; Status DC Ondansetron HCl (Zofran Inj) 4 mg STK-MED ONCE IV PUSH ; Start 03/08/17 at 12:00 ; Stop 03/30/17 at 14:49; Status DC Lactated Ringer's 1,000 ml @ As Directed STK-MED ONCE IV ; Start 03/08/17 at 12 :00; Stop 03/30/17 at 14:49; Status DC Propofol (Diprivan 200 Mg/20 ml Inj) 200 mg STK-MED ONCE IV ; Start 03/10/17 at 12:00; Stop 03/30/17 at 15:08; Status DC Ephedrine Sulfate (ePHEDrine/NS 25 MG/5 ML SYR) 25 mg STK-MED ONCE IV ; Start at 12:00; Stop 03/30/17 at 15:08; Status DC Neostigmine Methylsulfate (Prostigmin Inj) 3 mg STK-MED ONCE IV ; Start at 12:00; Stop 03/30/17 at 15:08; Status DC Phenylephrine HCl (Neosynephrine/ NS 1000 Mcg/10ml Syr) 2,000 mcg STK-MED ONCE IV ; Start 03/10/17 at 12:00; Stop 03/30/17 at 15:08; Status DC Ondansetron HCl (Zofran Inj) 4 mg STK-MED ONCE IV PUSH ; Start 03/10/17 at 12:00 ; Stop 03/30/17 at 15:08; Status DC Lactated Ringer's 1,000 ml @ As Directed STK-MED ONCE IV ; Start 03/10/17 at 12 :00; Stop 03/30/17 at 15:08; Status DC Sodium Chloride 1,000 ml @ As Directed STK-MED ONCE IV ; Start 03/10/17 at 12: 00; Stop 03/30/17 at 15:08; Status DC Propofol (Diprivan 200 Mg/20 ml Inj) 200 mg STK-MED ONCE IV ; Start 03/12/17 at 12:00; Stop 03/30/17 at 15:20; Status DC Ephedrine Sulfate (ePHEDrine/NS 25 MG/5 ML SYR) 25 mg STK-MED ONCE IV ; Start at 12:00; Stop 03/30/17 at 15:20; Status DC Phenylephrine HCl (Neosynephrine/ NS 1000 Mcg/10ml Syr) 1,000 mcg STK-MED ONCE IV ; Start 03/12/17 at 12:00; Stop 03/30/17 at 15:20; Status DC Ondansetron HCl (Zofran Inj) 4 mg STK-MED ONCE IV PUSH ; Start 03/12/17 at 12:00 ; Stop 03/30/17 at 15:20; Status DC Lactated Ringer's 1,000 ml @ As Directed STK-MED ONCE IV ; Start 03/12/17 at 12 :00; Stop 03/30/17 at 15:20; Status DC Propofol (Diprivan 200 Mg/20 ml Inj) 200 mg STK-MED ONCE IV ; Start 03/18/17 at 12:00; Stop 03/30/17 at 15:38; Status DC Ondansetron HCl (Zofran Inj) 4 mg STK-MED ONCE IV PUSH ; Start 03/18/17 at 12:00 ; Stop 03/30/17 at 15:38; Status DC Neostigmine Methylsulfate (Prostigmin Inj) 3 mg STK-MED ONCE IV ; Start at 12:00; Stop 03/30/17 at 15:38; Status DC Phenylephrine HCl (Neosynephrine/ NS 1000 Mcg/10ml Syr) 1,000 mcg STK-MED ONCE IV ; Start 03/18/17 at 12:00; Stop 03/30/17 at 15:38; Status DC Oxycodone/ Acetaminophen (Percocet 5-325 Mg) 1 tab Q4H PRN PO pain 3 to 5; Start 04/02/17 at 13:00; Stop 04/09/17 at 17:08; Status DC Oxycodone/ Acetaminophen (Percocet 10-325 Mg) 1 tab Q4H PRN PO pain 6-10 Last administered on 04/09/17 14:14; Start 04/02/17 at 13:00; Stop 04/09/17 at 17:08 ; Status DC Magnesium Sulfate/ Dextrose 100 ml @ 100 mls/hr Q1H IV Last administered on 16:15; Start 04/03/17 at 14:00; Stop 04/03/17 at 15:59; Status DC Sodium Chloride (Sodium Chloride) 1 gm TID PO Last administered on 04/07/17 13 :24; Start 04/04/17 at 14:00; Stop 04/07/17 at 13:45; Status DC Calcium Chloride 2 gm/Sodium Chloride 120 ml @ 120 mls/hr ONCE ONCE IV Last administered on 04/04/17 15:45; Start 04/04/17 at 14:00; Stop 04/04/17 at 14:59 ; Status DC Hydromorphone HCl (Dilaudid Pf Inj) 0.2 mg Q6H PRN IV PUSH breakthrough pain Last administered on 04/13/17 03:27; Start 04/09/17 at 17:15; Stop 04/13/17 at 03:27; Status DC Acetaminophen/ Hydrocodone Bitart ([place] 7.5-325 Mg) 1 tab Q4H PRN PO PAIN 6- 10 Last administered on 04/18/17 10:30; Start 04/09/17 at 17:15 Acetaminophen/ Hydrocodone Bitart ([place] 5-325 Mg) 1 tab Q4H PRN PO PAIN 3-5 Last administered on 04/18/17 01:26; Start 04/09/17 at 17:15 Tolvaptan (Samsca) 15 mg ONCE ONCE PO Last administered on 04/09/17 22:49; Start 04/09/17 at 19:30; Stop 04/09/17 at 19:32; Status DC Carvedilol (Coreg) 6.25 mg Q12HR PO Last administered on 04/18/17 09:02; Start 04/10/17 at 09:00 Clonidine (Catapres) 0.2 mg Q8H PO Last administered on 04/18/17 03:38; Start 04/10/17 at 20:00 Methocarbamol (Robaxin) 750 mg Q8HR PO Last administered on 04/18/17 05:54; Start 04/14/17 at 14:00 A/P Assessment and Plan A/P Hyponatremia-now worsening; sodium level trending down. continue fluid restriction . patient previously received Tolvaptan- will reconsult nephrology. monitor the sodium level closely. 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 distant showering of emboli to other joints. MRSA bacteremia Right ankle hardware infection, s/p partial removal of hardware. Deeper hardware embedded. SP RIGHT BKA Bilateral UE hand abscess and tenosynovitis, septic arthritis s.p multiple debridements. continue Daptomycin till 04/24/17 per ID Continue pain control. ID following Multiple surgeries thus far: - podiatry Dr. Reyes/Dr. Gamez on 02/26, 02/28, 03/04 - hand surgeon Dr. Bullock on 02/26, 02/28, 03/04, 03/08, 03/10 -right BKA Anemia Follow CBC Status post blood transfusion Acute Toxic/Metabolic Encephalopathy secondary to Sepsis-improved. Acute Alcohol Withdrawal - improved Hypertension Continue clonidine and Coreg, cardiology initiate low dose lisinopril, monitor renal function Follow blood pressures Adjust as needed for control Mild Systolic CHF Scrotal edema EF of 40-45% with global hypokinesis found on 02/28/17 Continue beta amarjit Hypothyroidism continue synthroid THADDEUS mostly vanco induced - resolved Monitor renal function Avoid nephrotoxins Previous event was likely secondary to ATN Hepatitis C- f/u as outpatient. Standard precautions DVT Prophylaxis Lovenox Discharge Planning previously d/w the case management; has to stay inpatient while receiving IV antibiotics. Flaca Houser MD Apr 18, 2017 10:42
[2017-04-18] MEDS: DEMECLOCYCLINE HCL 150 MG TAB PO SCH ×2 (11:45→21:36)
--- NOTE | 2017-04-18 11:47 | HHI.NPPN ---
Subjective History of Present Illness 61 year old male with past medical history of hypertension, history of being homeless. He was admitted on February 25 with altered mental status and leukocytosis. I was called to see the patient because of elevated BUN and creatinine. Additional Remarks Patient is alert, eating well, and as per patient watching the fluid restriction , no SOB. Objective Data Data Vital Signs Date Time Temp Pulse Resp B/P (MAP) Pulse Ox O2 Delivery O2 Flow Rate FiO2 04/18/17 08:00 98.4 56 18 118/63 (81) 97 04/18/17 08:00 Room Air 04/18/17 04:00 Room Air 04/18/17 04:00 98.3 62 18 116/59 (78) 99 04/18/17 00:00 99.8 61 18 125/59 (81) 99 04/18/17 00:00 Room Air 04/17/17 20:00 98.5 61 18 140/69 (92) 99 04/17/17 20:00 Room Air 04/17/17 16:00 98.7 60 16 125/56 (79) 99 04/17/17 12:00 98.7 62 16 117/62 (80) 99 -: 04/18/17 0823 Physical Exam General Appearance: No Acute Distress, Anxious Eyes Eye Exam: Pupils Equal Throat Throat Exam: Oral Mucosa [place] & Moist Neck Neck Exam: Neck Supple Pulmonary Resp Exam: Breath Sounds Equal, No Distress, Rhonchi, Decreased Bases Cardiology CV Exam: Regular, Normal Sinus Rhythm Gastrointestinal/Abdomen GI Exam: Soft, Non-Tender, Bowel Sounds Present Extremeties Extremities Exam: Trace Edema Neurologic Neuro Exam: Alert, Awake Assessment/Plan Assessment Summary: THADDEUS/Acute Renal Failure Problem List: (1) Encephalopathy ICD Codes: G93.40 - Encephalopathy, unspecified Status: Acute (2) Essential hypertension ICD Codes: I10 - Essential (primary) hypertension Status: Acute (3) Hepatitis C, chronic ICD Codes: B18.2 - Chronic viral hepatitis C Status: Chronic (4) Abscess of right hand including fingers ICD Codes: L02.511 - Cutaneous abscess of right hand Status: Chronic (5) Abscess of left hand including fingers ICD Codes: L02.512 - Cutaneous abscess of left hand Status: Chronic (6) Alcoholism ICD Codes: F10.20 - Alcohol dependence, uncomplicated Status: Chronic (7) CHF (congestive heart failure) ICD Codes: I50.9 - Heart failure, unspecified Status: Acute (8) Sepsis ICD Codes: A41.9 - Sepsis, unspecified organism Status: Acute (9) ARF (acute renal failure) ICD Codes: N17.9 - Acute kidney failure, unspecified Status: Acute Plan Patient has Acute kidney injury and Creatinine now normalized. Na. improved after given one dose of Samsca on 04/09. Now gradually decreasing Na. and it is 122. Has elevated urine Osmolality in past, possible SIADH. Clinically euvolemic. Need to continue fluid restriction. I will add NaCl, and Declomycin. Check urine osmolality. Problem Qualifiers (1) Sepsis: Diane Barker MD Apr 18, 2017 11:47
[2017-04-18 12:00] VITALS: BP 101/68; PULSE 63; RESP 18; TEMP 98.3; O2SAT 99
[2017-04-18] MEDS: SODIUM CHLORIDE 0.9% IV SCH (12:50)
[2017-04-18] MEDS: SODIUM CHLORIDE 1 GRAM TAB PO SCH ×2 (12:50→16:50)
[2017-04-18] MEDS: DAPTOMYCIN IV SCH (12:50)
[2017-04-18] MEDS: ENOXAPARIN SODIUM 40 MG/0.4 ML SYRINGE SQ SCH (12:51)
[2017-04-18 16:00] VITALS: BP 113/61; PULSE 54; RESP 18; TEMP 98.8; O2SAT 99
[2017-04-18 20:00] VITALS: BP 129/71; PULSE 66; RESP 16; TEMP 97.9; O2SAT 98
[2017-04-19] VITALS (7 sets, daily range): BP systolic 115–152; BP diastolic 66–85; PULSE 55–69; RESP 16–18; TEMP 97.8–99.1; O2SAT 96–100
[2017-04-19] MEDS: cloNIDine HCL 0.2 MG TAB PO SCH ×3 (03:40→21:40)
[2017-04-19] MEDS: ACETAMINOPHEN/HYDROcodone 325 MG/7.5 MG TAB PO PRN ×5 (03:40→21:40)
[2017-04-19] MEDS: METHOCARBAMOL 500 MG TAB PO SCH ×3 (05:42→21:40)
[2017-04-19] MEDS: LEVOTHYROXINE SODIUM 50 MCG TAB PO SCH (05:42)
[2017-04-19] MEDS: SODIUM CHLORIDE 1 GRAM TAB PO SCH ×3 (08:16→17:39)
[2017-04-19] MEDS: DEMECLOCYCLINE HCL 150 MG TAB PO SCH ×2 (08:16→21:40)
[2017-04-19] MEDS: MULTIVITAMIN TAB PO SCH (08:16)
[2017-04-19] MEDS: LISINOPRIL 5 MG TAB PO SCH (08:16)
[2017-04-19] MEDS: CARVEDILOL 6.25 MG TAB PO SCH ×2 (08:17→21:40)
[2017-04-19] MEDS: THIAMINE HCL 100 MG TAB PO SCH (08:17)
[2017-04-19] MEDS: MUPIROCIN 2% OINT 1 APPLIC/GM SYR NASAL SCH ×2 (08:17→21:00)
[2017-04-19 10:12] LABS: BICARBONATE 22.9 MEQ/L (21.0-32.0); POTASSIUM 4.1 MEQ/L (3.5-5.1)
--- NOTE | 2017-04-19 10:48 | HHI.PR ---
Subjective Remarks resting comfortably with no distress. pain seems to be fairly controlled. no fever. no new complaints. Objective Vitals Vital Signs Date Time Temp Pulse Resp B/P (MAP) Pulse Ox O2 Delivery O2 Flow Rate FiO2 04/19/17 08:00 Room Air 04/19/17 08:00 98.5 57 18 152/85 (107) 100 04/19/17 04:00 97.9 55 18 133/72 (92) 98 04/19/17 04:00 97.9 04/19/17 04:00 Room Air 04/19/17 00:00 Room Air 04/19/17 00:00 97.8 64 18 115/66 (82) 100 04/18/17 20:00 97.9 66 16 129/71 (90) 98 04/18/17 20:00 Room Air 04/18/17 16:00 98.8 54 18 113/61 (78) 99 04/18/17 15:44 18 04/18/17 12:00 98.3 63 18 101/68 (79) 99 I/O 04/18/17 04/18/17 04/18/17 04/19/17 04/19/17 04/19/17 07:00 15:00 23:00 07:00 15:00 23:00 Intake Total 480 ml 100 ml 200 ml Output Total 825 ml 800 ml 400 ml 400 ml Balance -825 ml -320 ml -300 ml -200 ml Intake Oral 480 ml 100 ml 200 ml Output Urine Total 825 ml 800 ml 400 ml 400 ml # Bowel Movements 1 Result Diagram: 04/19/17 0815 Imaging Last Impressions Chest X-Ray 03/29/17 0000 Signed Impressions: Service Date/Time: Wednesday, March 29, 2017 12:17 - CONCLUSION: Stable chest. Isaac Stevenson MD FACR Tumor Localization 03/22/17 0000 Signed Impressions: Service Date/Time: Wednesday, March 22, 2017 13:03 - CONCLUSION: Nondiagnostic examination secondary to patient refusal Harry Lucio MD Abdomen X-Ray 03/08/17 0000 Signed Impressions: Service Date/Time: Wednesday, March 08, 2017 10:30 - CONCLUSION: Nonspecific, negative for obstruction or ileus. Isaac Stevenson MD FACR Lower Extremity CT 03/01/17 0000 Signed Impressions: Service Date/Time: Wednesday, March 01, 2017 11:12 - CONCLUSION: 1. No evidence of organized fluid collections to suggest an abscess. 2. Extensive soft tissue swelling surrounding the ankle and extending to the forefoot especially along the lateral aspect. 3. No erosive or destructive bone changes. 4. Bone defects compatible with previous excision device. Blake Rider MD Ankle X-Ray 02/26/17 0000 Signed Impressions: Service Date/Time: Sunday, February 26, 2017 17:15 - CONCLUSION: I see no retained surgical instruments. Isaac Stevenson MD FACR Upper Extremity Ultrasound 02/25/17 1734 Signed Impressions: Service Date/Time: February 17:54 - CONCLUSION: There is a thin fluid collection within the focal area of soft tissue swelling 2nd digit. Oscar Cassidy MD Hand X-Ray 02/25/17 0000 Signed Impressions: Service Date/Time: February 18:59 - CONCLUSION: No gross bony abnormality. Oscar Cassidy MD Lower Extremity Ultrasound 02/24/17 0000 Signed Impressions: Service Date/Time: Friday, February 24, 2017 13:41 - CONCLUSION: Negative for deep venous thrombosis. Isaac Stevenson MD FACR Head CT 02/24/17 0000 Signed Impressions: Service Date/Time: Friday, February 24, 2017 16:08 - CONCLUSION: 1. No acute intracranial abnormality. 2. Probable large mucocele in the sphenoid sinus. Ty Hankins MD Abdomen/Pelvis CT 02/24/17 0000 Signed Impressions: Service Date/Time: Friday, February 24, 2017 16:16 - CONCLUSION: 1. Marked gaseous distension of large and small bowel most suggestive of ileus. 2. There is no free air. 3. 2.2 cm left adrenal mass. 4. Distended bladder. Isaac Stevenson MD FACR Objective Remarks GENERAL: This is a well-nourished, well-developed patient, in no apparent distress. CARDIOVASCULAR: Regular rate and regular rhythm without murmurs, gallops, or rubs. RESPIRATORY: Clear to auscultation. Breath sounds equal bilaterally. No wheezes , rales, or rhonchi. GASTROINTESTINAL: Abdomen soft, non-tender, nondistended. Normal, active bowel sounds MUSCULOSKELETAL: right forearm covered with clean dressing- s/p right BKA NEURO: Alert & Oriented x4 to person, place, time, situation. Moves all ext x4 Procedures 03/10/2017 - Dr. Bullock exploration, wash, excisional debridement extensor tenosynovium right wrist/forearm/hand 03/08/17 - Dr. Bullock- exploration, wash, excisional debridement skin, subcutaneous tissue, extensor tenosynovitis right wrist and hand. Findings: necrotic tissue, minimal purulence, extensor tenosynovitis right wrist/hand 03/04/17 - Dr Gamez - Right leg and incision and drainage. Right foot delayed primary closure x3 03/04/17 - Dr. Bullock - Extensor tenosynovectomy second, third, fourth extensor compartments right wrist and excisional debridement wash index finger metacarpal phalangeal joint, excisional wash and excisional debridement left hand. 02/28/17 - Dr. Reyes - Right ankle wound debridement and washout. Implantation of antibiotic vancomycin beads. 02/28/17 - Dr. Bullock - Exploration, wash, excisional debridement index finger metacarpophalangeal joint right hand; Exploration, wash, excisional debridement metacarpophalangeal joint left index finger; Exploration, wash, excisional debridement extensor pollicis longus tendon right thumb and hand. 02/26/17 - Dr. Reyes - Right ankle incision and drainage, arthrotomy, removal infected hardware, bone biopsy. 02/26/17 - Dr. Bullock - Exploration, incision and drainage right hand abscess, Arthrotomy wash metacarpal phalangeal joint right index finger, Arthrotomy wash metacarpal phalangeal joint left index finger. Medications and IVs Current Medications Sodium Chloride 1,000 ml @ 999 mls/hr BOLUS ONCE IV Last administered on 13:38; Start 02/24/17 at 13:45; Stop 02/24/17 at 14:45; Status DC IV Flush (NS Flush) 2 ml UNSCH PRN IV FLUSH FLUSH AFTER USING IV ACCESS Last administered on 02/24/17 13:38; Start 02/24/17 at 13:45 Vancomycin HCl 1000 mg/Sodium Chloride 250 ml @ 250 mls/hr ONCE STAT IV Last administered on 02/24/17 15:49; Start 02/24/17 at 15:35; Stop 02/24/17 at 16:34; Status DC Cefepime HCl 2000 mg/Sodium Chloride 100 ml @ 200 mls/hr ONCE STAT IV Last administered on 02/24/17 16:36; Start 02/24/17 at 15:35; Stop 02/24/17 at 16:04; Status DC Potassium Bicarb/ Potassium Chloride (K-Lyte Cl Eff) 50 meq ONCE ONCE PO Last administered on 02/24/17 15:56; Start 02/24/17 at 16:00; Stop 02/24/17 at 16: 01; Status DC Iohexol (Omnipaque 350 Inj) 97 ml STK-MED ONCE IV Last administered on 16:29; Start 02/24/17 at 16:29; Stop 02/24/17 at 16:30; Status DC Sodium Chloride 1,000 ml @ 125 mls/hr Q8H IV Last administered on 03/02/17 09: 33; Start 02/24/17 at 18:00; Stop 03/02/17 at 13:08; Status DC Ondansetron HCl (Zofran Inj) 4 mg Q8HR PRN IV PUSH NAUSEA; Start 02/24/17 at 18: 00 Thiamine HCl (Vitamin B1) 100 mg ONCE ONCE PO Last administered on 02/24/17 20 :20; Start 02/24/17 at 20:15; Stop 02/24/17 at 20:16; Status DC Thiamine HCl (Vitamin B1) 100 mg DAILY PO Last administered on 04/19/17 08:17 ; Start 02/25/17 at 09:00 Potassium Chloride 100 ml @ 50 mls/hr Q2H IV Last administered on 02/24/17 22: 59; Start 02/24/17 at 20:30; Stop 02/25/17 at 00:29; Status DC Pharmacy Profile Note 0 ml @ 0 mls/hr UNSCH OTHER ; Start 02/24/17 at 20:15; Stop 03/02/17 at 13:23; Status DC Cefepime HCl 2000 mg/Sodium Chloride 100 ml @ 200 mls/hr Q12H IV Last administered on 02/27/17 05:51; Start 02/25/17 at 07:00; Stop 02/27/17 at 14:53; Status DC Vancomycin HCl 1500 mg/Sodium Chloride 515 ml @ 257.5 mls/ hr Q18H IV Last administered on 02/25/17 10:30; Start 02/25/17 at 10:00; Stop 02/25/17 at 11:30; Status DC Miscellaneous Information SPECIFIC LAB TO BE DRAWN:VANCO TROUGH DATE TO BE DR... ONCE ONCE .XX ; Start 02/26/17 at 21:45; Stop 02/26/17 at 21:46; Status DC Flumazenil (Romazicon Inj) 0.2 mg Q1M PRN IV PUSH SEE LABEL COMMENTS; Start 02/25/17 at 09:15 Lorazepam (Ativan) 1 mg Q4H PRN PO agitation Last administered on 03/20/17 03: 18; Start 02/25/17 at 09:15 Lorazepam (Ativan Inj) 1 mg Q4H PRN IV PUSH agitation when not taking po Last administered on 03/05/17 02:41; Start 02/25/17 at 09:15 Lorazepam (Ativan) 2 mg Q2H PRN PO CIWA 11-14; Start 02/25/17 at 09:15; Stop 02/28/17 at 07:44; Status DC Lorazepam (Ativan Inj) 2 mg Q2H PRN IV PUSH CIWA 11-14 Last administered on 02/26 18:14; Start 02/25/17 at 09:15; Stop 02/28/17 at 07:44; Status DC Lorazepam (Ativan Inj) 2 mg Q1H PRN IV PUSH CIWA 15-20 Last administered on 02/25 21:37; Start 02/25/17 at 09:15; Stop 02/28/17 at 07:44; Status DC Lorazepam (Ativan Inj) 2 mg Q15M PRN IV PUSH CIWA > 20 Last administered on 02/26 06:25; Start 02/25/17 at 09:15; Stop 02/28/17 at 07:44; Status DC Multivitamins (Theragran) 1 tab DAILY PO Last administered on 04/19/17 08:16; Start 02/26/17 at 09:00 Acetaminophen (Tylenol) 650 mg Q4H PRN PO FEVER Last administered on 03/07/17 04:47; Start 02/25/17 at 09:15; Stop 03/12/17 at 10:47; Status DC Lisinopril (Prinivil) 10 mg DAILY PO ; Start 02/26/17 at 09:00; Stop 03/08/17 at 21:09; Status DC Enoxaparin Sodium (Lovenox Inj) 40 mg Q24H SQ Last administered on 03/07/17 10 :00; Start 02/25/17 at 10:00; Stop 03/10/17 at 12:17; Status DC Vancomycin HCl 1500 mg/Sodium Chloride 515 ml @ 257.5 mls/ hr Q12H IV Last administered on 02/26/17 09:42; Start 02/25/17 at 22:00; Stop 02/26/17 at 12:06; Status DC Miscellaneous Information SPECIFIC LAB TO BE BIA... ONCE ONCE .XX Last administered on 02/26/17 09:45; Start 02/26/17 at 09:45; Stop 02/26/17 at 09:46; Status DC Chlordiazepoxide (Librium) 25 mg Q8H PO ; Start 02/25/17 at 17:00; Stop 02/25/17 at 20:24; Status DC Gentamicin Sulfate 70 mg/ Sodium Chloride 101.75 ml @ 100 mls/ hr ONCE ONCE IV Last administered on 02/25/17 18:51; Start 02/25/17 at 18:30; Stop 02/25/17 at 19:31; Status DC Dexmedetomidine HCl 200 mcg/ Sodium Chloride 52 ml @ 0 mls/hr TITRATE IV Last administered on 02/27/17 13:55; Start 02/25/17 at 17:30; Stop 03/09/17 at 23:34; Status DC Acetaminophen (Ofirmev Inj) 650 mg Q6H PRN IV TEMP >101 Last administered on 20:12; Start 02/25/17 at 21:00; Stop 04/17/17 at 08:33; Status DC Iohexol (Omnipaque 350 Inj) 75 ml STK-MED ONCE IV Last administered on 21:15; Start 02/25/17 at 21:15; Stop 02/25/17 at 21:16; Status DC Potassium Chloride 100 ml @ 50 mls/hr Q2H PRN IV For Potassium 2.8 - 3.2 mEq/L ; Start 02/25/17 at 22:45; Stop 03/01/17 at 23:53; Status DC Potassium Chloride 100 ml @ 50 mls/hr Q2H PRN IV For Potassium 2.8 - 3.2 mEq/ L Last administered on 02/28/17t 12:32; Start 02/25/17 at 22:45; Stop 03/01/17 at 23:53; Status DC Potassium Bicarb/ Potassium Chloride (K-Lyte Cl Eff) 50 meq UNSCH PRN PO For Potassium 3.3 - 3.5 mEq/L; Start 02/25/17 at 22:45; Stop 03/01/17 at 23:53; Status DC Potassium Chloride 100 ml @ 25 mls/hr UNSCH PRN IV For Potassium 3.3 - 3.5 mEq /L; Start 02/25/17 at 22:45; Stop 03/01/17 at 23:53; Status DC Potassium Chloride 100 ml @ 50 mls/hr Q2H PRN IV For Potassium 3.3 - 3.5 mEq/ L Last administered on 02/28/17 06:39; Start 02/25/17 at 22:45; Stop 03/01/17 at 23:53; Status DC Magnesium Sulfate 4 gm/Sodium Chloride 100 ml @ 50 mls/hr UNSCH PRN IV For Magnesium 0.9 - 1.1 mg/dL; Start 02/25/17 at 22:45; Stop 03/01/17 at 23:53; Status DC Magnesium Oxide (Mag-Ox) 800 mg UNSCH PRN PO For Magnesium 1.2 - 1.6 mg/dL; Start 02/25/17 at 22:45; Stop 03/01/17 at 23:53; Status DC Magnesium Sulfate 2 gm/Sodium Chloride 100 ml @ 50 mls/hr UNSCH PRN IV For Magnesium 1.2 - 1.6 mg/dL; Start 02/25/17 at 22:45; Stop 03/01/17 at 23:53; Status DC Potassium Phosphate (K-Phos) 2,000 mg Q4H PRN PO For Phosphorus < 2.5 mg/dL; Start 02/25/17 at 22:45; Stop 03/01/17 at 23:53; Status DC Sodium Phosphate 30 mmol/Sodium Chloride 250 ml @ 42 mls/hr UNSCH PRN IV For Phosphorus < 2.5 mg/dL Last administered on 02/26/17 23:19; Start 02/25/17 at 22: 45; Stop 03/01/17 at 23:53; Status DC Potassium Phosphate (K-Phos) 2,000 mg UNSCH PRN PO/TUBE SEE LABEL COMMENTS; Start 02/25/17 at 22:45; Stop 03/01/17 at 23:53; Status DC Potassium Phosphate 30 mmol/ Sodium Chloride 260 ml @ 42 mls/hr UNSCH PRN IV SEE LABEL COMMENTS; Start 02/25/17 at 22:45; Stop 03/01/17 at 23:53; Status DC Labetalol HCl (Trandate Inj) 10 mg Q6H PRN IV PUSH SBP >165; Start 02/25/17 at 23:15 Pantoprazole Sodium (Protonix Inj) 40 mg Q24H IV PUSH Last administered on 04/18 23:02; Start 02/26/17 at 00:00 Miscellaneous Information Patient in critical care unit? Ass... [id number] .XX ; Start 02/26/17 at 07:15 Mupirocin (Bactroban Nasal 2% Oint) 1 applic BID NASAL Last administered on 08:17; Start 02/26/17 at 09:00 Chlorhexidine Gluconate (Chlorhexidine 2% Cloth) 3 pack DAILY@04 TOPICAL Last administered on 03/03/17 04:00; Start 02/27/17 at 04:00; Stop 03/03/17 at 04:01; Status DC Chlorhexidine Gluconate (Chlorhexidine 2% Cloth) 3 pack UNSCH PRN TOPICAL HYGIENIC CARE; Start 02/26/17 at 07:15; Stop 03/03/17 at 07:07; Status DC Lidocaine HCl (Xylocaine 2% Inj) 50 ml STK-MED ONCE .ROUTE ; Start 02/26/17 at 09 :35; Stop 02/26/17 at 09:36; Status DC Bupivacaine HCl (Marcaine Pf 0.5% Inj) 60 ml STK-MED ONCE .ROUTE ; Start at 09:35; Stop 02/26/17 at 09:36; Status DC Mupirocin (Bactroban 2% Oint) 22 applic STK-MED ONCE .ROUTE ; Start 02/26/17 at 09:35; Stop 02/26/17 at 09:36; Status DC Vancomycin HCl 1250 mg/Sodium Chloride 262.5 ml @ 250 mls/hr Q12H IV Last administered on 03/02/17 09:33; Start 02/26/17 at 22:00; Stop 03/02/17 at 13:23; Status DC Miscellaneous Information SPECIFIC LAB TO BE BIA... ONCE ONCE .XX Last administered on 02/27/17 22:46; Start 02/27/17 at 21:45; Stop 02/27/17 at 21:46; Status DC Neomycin/Polymyxin (Neosporin G.u. Irr) 3 ml STK-MED ONCE TOPICAL Last administered on 02/26/17 13:06; Start 02/26/17 at 13:06; Stop 02/26/17 at 16:26; Status DC Neomycin/Polymyxin (Neosporin G.u. Irr) 4 ml STK-MED ONCE TOPICAL Last administered on 02/26/17 15:47; Start 02/26/17 at 15:47; Stop 02/26/17 at 16:26; Status DC Fentanyl Citrate (fentaNYL INJ) 250 mcg STK-MED ONCE .ROUTE ; Start 02/26/17 at 18:16; Stop 02/26/17 at 18:17; Status DC Fentanyl Citrate (fentaNYL INJ) 100 mcg STK-MED ONCE .ROUTE ; Start 02/26/17 at 18:16; Stop 02/26/17 at 18:17; Status DC Miscellaneous Information ALL NURSING DEPARTME... UNSCH PRN .XX SEE LABEL COMMENTS; Start 02/26/17 at 17:57; Stop 02/27/17 at 17:56; Status DC Clonidine (Catapres) 0.3 mg Q8HR PO Last administered on 04/10/17 12:33; Start 02/26/17 at 22:11; Stop 04/10/17 at 12:52; Status DC Diazepam (Valium) 5 mg Taper DAILY PO Last administered on 03/06/17 09:49; Start 02/26/17 at 22:15; Stop 03/06/17 at 22:14; Status DC Water (Free Water) 200 ml Q8HR G-TUBE Last administered on 02/27/17 22:31; Start 02/27/17 at 06:55; Stop 02/28/17 at 07:41; Status DC Rifampin 300 mg/ Sodium Chloride 100 ml @ 100 mls/hr Q12H IV Last administered on 03/02/17 14:41; Start 02/27/17 at 15:00; Stop 03/02/17 at 16:41; Status DC Oxycodone HCl (Roxicodone) 5 mg Q4H PRN PO pain 1-5 Last administered on 09:26; Start 02/28/17 at 07:45; Stop 04/09/17 at 17:08; Status DC Hydromorphone HCl (Dilaudid Pf Inj) 0.5 mg Q3H PRN IV PUSH pain 6-10 or not taking po Last administered on 04/09/17 16:51; Start 02/28/17 at 07:45; Stop at 17:08; Status DC Water (Free Water) 300 ml Q4HR G-TUBE Last administered on 03/02/17 20:00; Start 02/28/17 at 08:00; Stop 03/02/17 at 23:07; Status DC Vancomycin HCl (Vancomycin Inj) 1,000 mg STK-MED ONCE .ROUTE Last administered on 02/28/17 09:01; Start 02/28/17 at 09:01; Stop 02/28/17 at 09:02; Status DC Vancomycin HCl (Vancomycin Inj) 1,000 mg STK-MED ONCE .ROUTE Last administered on 02/28/17 09:33; Start 02/28/17 at 09:33; Stop 02/28/17 at 09:34; Status DC Vancomycin HCl (Vancomycin Inj) 1,000 mg STK-MED ONCE .ROUTE Last administered on 02/28/17 09:36; Start 02/28/17 at 09:33; Stop 02/28/17 at 09:34; Status DC Daptomycin 450 mg/ Sodium Chloride 100 ml @ 200 mls/hr Q24H IV Last administered on 03/05/17 13:41; Start 02/28/17 at 12:00; Stop 03/05/17 at 18:00 ; Status DC Vancomycin HCl (Vancomycin Inj) 1,000 mg STK-MED ONCE .ROUTE Last administered on 02/28/17 10:45; Start 02/28/17 at 10:42; Stop 02/28/17 at 10:43; Status DC Vancomycin HCl (Vancomycin Inj) 500 mg STK-MED ONCE .ROUTE Last administered on 02/28/17 10:45; Start 02/28/17 at 10:42; Stop 02/28/17 at 10:43; Status DC Fentanyl Citrate (fentaNYL INJ) 250 mcg STK-MED ONCE .ROUTE ; Start 02/28/17 at 11:48; Stop 02/28/17 at 11:49; Status DC Miscellaneous Information ALL NURSING DEPARTME... UNSCH PRN .XX SEE LABEL COMMENTS; Start 02/28/17 at 11:33; Stop 03/01/17 at 11:32; Status DC Miscellaneous Information SPECIFIC LAB TO BE BIA... ONCE ONCE .XX ; Start 03/04 at 09:45; Stop 03/04/17 at 09:46; Status Cancel Sodium Chloride 1,000 ml @ 999 mls/hr BOLUS ONCE IV Last administered on 13:28; Start 03/02/17 at 13:15; Stop 03/02/17 at 14:15; Status DC Sodium Chloride 1,000 ml @ 125 mls/hr Q8H IV Last administered on 03/02/17 14: 18; Start 03/02/17 at 13:15; Stop 03/02/17 at 14:30; Status DC Rifampin (Rifampin) 300 mg Q12HR PO Last administered on 03/23/17 08:42; Start 03/02/17 at 21:00; Stop 03/23/17 at 18:40; Status DC Potassium Chloride 20 meq/ Sodium Chloride 38.5 meq/Sterile Water 1,010 ml @ 55 mls/hr [id number] IV Last administered on 03/09/17 22:51; Start 03/03/17 at 11: 00; Stop 03/09/17 at 23:36; Status DC Furosemide (Lasix Inj) 20 mg ONCE ONCE IV PUSH Last administered on 03/03/17 10:19; Start 03/03/17 at 09:30; Stop 03/03/17 at 09:43; Status DC Carvedilol (Coreg) 6.25 mg Q12HR PO Last administered on 04/09/17 08:40; Start 03/03/17 at 21:00; Stop 04/10/17 at 03:26; Status DC Vancomycin HCl (Vancomycin Inj) 1,000 mg STK-MED ONCE .ROUTE Last administered on 03/04/17 15:52; Start 03/04/17 at 15:10; Stop 03/04/17 at 15:11; Status DC Fentanyl Citrate (fentaNYL INJ) 100 mcg STK-MED ONCE .ROUTE ; Start 03/04/17 at 16:38; Stop 03/04/17 at 16:39; Status DC Fentanyl Citrate (fentaNYL INJ) 250 mcg STK-MED ONCE .ROUTE ; Start 03/04/17 at 16:38; Stop 03/04/17 at 16:39; Status DC Vancomycin HCl (Vancomycin Inj) 1,000 mg STK-MED ONCE .ROUTE Last administered on 03/04/17 16:52; Start 03/04/17 at 16:59; Stop 03/04/17 at 17:00; Status DC Fentanyl Citrate (fentaNYL INJ) 100 mcg STK-MED ONCE .ROUTE ; Start 03/04/17 at 18:24; Stop 03/04/17 at 18:25; Status DC Fentanyl Citrate (fentaNYL INJ) 250 mcg STK-MED ONCE .ROUTE ; Start 03/04/17 at 18:25; Stop 03/04/17 at 18:26; Status DC Miscellaneous Information ALL NURSING DEPARTME... UNSCH PRN .XX SEE LABEL COMMENTS; Start 03/04/17 at 19:15; Stop 03/05/17 at 19:14; Status DC Daptomycin 550 mg/ Sodium Chloride 100 ml @ 200 mls/hr Q24H IV Last administered on 04/18/17 12:50; Start 03/06/17 at 12:00 Bisacodyl (Dulcolax Supp) 10 mg DAILY PRN RECTAL SEVERE CONSITIPATION; Start at 21:00 Lactulose (Lactulose Liq) 30 ml DAILY PRN NG SEVERE CONSITIPATION Last administered on 03/07/17 18:45; Start 03/06/17 at 21:00 Docusate Sodium (Colace Liq) 100 mg Q12HR PO Last administered on 03/09/17 09: 30; Start 03/06/17 at 21:15; Status Future Hold Sodium Chloride 250 ml @ 15 mls/hr ONCE ONCE IV Last administered on 00:27; Start 03/07/17 at 19:00; Stop 03/08/17 at 12:06; Status DC Furosemide (Lasix Inj) 20 mg ONCE ONCE IV Last administered on 03/08/17 03:49 ; Start 03/07/17 at 19:00; Stop 03/07/17 at 19:01; Status DC Polyethylene Glycol/ Electrolytes (Colyte Liq) 4,000 ml ONCE ONCE PO ; Start at 11:00; Stop 03/08/17 at 11:01; Status Cancel Mupirocin (Bactroban 2% Oint) 22 applic STK-MED ONCE .ROUTE ; Start 03/08/17 at 12:10; Stop 03/08/17 at 12:11; Status DC Lidocaine HCl (Xylocaine 2% Inj) 50 ml STK-MED ONCE .ROUTE ; Start 03/08/17 at 12:13; Stop 03/08/17 at 12:14; Status DC Bupivacaine HCl (Marcaine Pf 0.5% Inj) 30 ml STK-MED ONCE .ROUTE ; Start at 12:17; Stop 03/08/17 at 12:18; Status DC Famotidine (Pepcid Inj) 20 mg STK-MED ONCE .ROUTE ; Start 03/08/17 at 13:17; Stop 03/08/17 at 13:18; Status DC Vancomycin HCl (Vancomycin Inj) 1,000 mg STK-MED ONCE .ROUTE Last administered on 03/08/17 14:35; Start 03/08/17 at 14:07; Stop 03/08/17 at 14:08; Status DC Sodium Chloride (Sodium Chloride 0.9% Inj) 20 ml STK-MED ONCE .ROUTE ; Start at 14:07; Stop 03/08/17 at 14:08; Status DC Vancomycin HCl (Vancomycin Inj) 1,000 mg STK-MED ONCE .ROUTE ; Start 03/08/17 at 14:42; Stop 03/08/17 at 14:43; Status DC Sodium Chloride (Sodium Chloride 0.9% Inj) 20 ml STK-MED ONCE .ROUTE ; Start at 14:42; Stop 03/08/17 at 14:43; Status DC Fentanyl Citrate (fentaNYL INJ) 500 mcg STK-MED ONCE .ROUTE ; Start 03/08/17 at 15:51; Stop 03/08/17 at 15:52; Status DC Miscellaneous Information ALL NURSING DEPARTME... UNSCH PRN .XX SEE LABEL COMMENTS; Start 03/08/17 at 15:40; Stop 03/09/17 at 15:39; Status DC Polyethylene Glycol/ Electrolytes (Colyte Liq) 4,000 ml ONCE ONCE NG Last administered on 03/08/17 22:42; Start 03/08/17 at 20:00; Stop 03/08/17 at 20:01 ; Status DC Lisinopril (Prinivil) 2.5 mg DAILY PO Last administered on 04/19/17 08:16; Start 03/09/17 at 09:00 Miscellaneous (Pill Splitter) 1 ea UNSCH PRN OTHER SEE LABEL COMMENTS; Start at 21:15 Dextrose 1,000 ml @ 84 mls/hr [id number] IV Last administered on 03/11/17 21:24 ; Start 03/09/17 at 23:45; Stop 03/11/17 at 23:38; Status DC Enoxaparin Sodium (Lovenox Inj) 40 mg Q24H SQ Last administered on 04/18/17 12 :51; Start 03/10/17 at 13:00; Status Future hold Bupivacaine HCl (Marcaine Pf 0.5% Inj) 30 ml STK-MED ONCE .ROUTE ; Start at 14:50; Stop 03/10/17 at 14:51; Status DC Lidocaine HCl (Xylocaine 2% Inj) 50 ml STK-MED ONCE .ROUTE ; Start 03/10/17 at 14:51; Stop 03/10/17 at 14:52; Status DC Bacitracin (Baciguent Oint) 15 applic STK-MED ONCE .ROUTE Last administered on 03/10/17 16:43; Start 03/10/17 at 14:51; Stop 03/10/17 at 14:52; Status DC Vancomycin HCl (Vancomycin Inj) 1,000 mg STK-MED ONCE .ROUTE Last administered on 03/10/17 15:49; Start 03/10/17 at 15:45; Stop 03/10/17 at 15:46; Status DC Sodium Chloride (Sodium Chloride 0.9% Inj) 20 ml STK-MED ONCE .ROUTE ; Start at 15:45; Stop 03/10/17 at 15:46; Status DC Neomycin/Polymyxin (Neosporin G.u. Irr) 2 ml STK-MED ONCE TOPICAL Last administered on 03/10/17 15:49; Start 03/10/17 at 15:49; Stop 03/10/17 at 15:59 ; Status DC Bacitracin (Baciguent Oint) 30 applic STK-MED ONCE .ROUTE Last administered on 03/10/17 16:44; Start 03/10/17 at 16:41; Stop 03/10/17 at 16:42; Status DC Hydromorphone HCl (Dilaudid Pf Inj) 2 mg STK-MED ONCE .ROUTE ; Start 03/10/17 at 16:47; Stop 03/10/17 at 16:48; Status DC Fentanyl Citrate (fentaNYL INJ) 250 mcg STK-MED ONCE .ROUTE ; Start 03/10/17 at 17:22; Stop 03/10/17 at 17:23; Status DC Morphine Sulfate (*morphine INJ PERIprocedure ONLY) 8 mg STK-MED ONCE .ROUTE Last administered on 03/10/17 18:12; Start 03/10/17 at 18:12; Stop 03/10/17 at 18:13; Status DC Miscellaneous Information ALL NURSING DEPARTME... UNSCH PRN .XX SEE LABEL COMMENTS; Start 03/10/17 at 14:30; Stop 03/11/17 at 14:29; Status DC Propofol (Diprivan 200 Mg/20 ml Inj) 200 mg STK-MED ONCE IV PUSH ; Start at 15:29; Stop 03/11/17 at 15:47; Status DC Oxybenzone/ Padimate O/ Dimethicone (Blistex Lip Rowe) 4.25 applic STK-MED ONCE TOPICAL Last administered on 03/11/17 16:02; Start 03/11/17 at 16:02; Stop at 16:03; Status DC Miscellaneous Information ALL NURSING DEPARTME... UNSCH PRN .XX SEE LABEL COMMENTS; Start 03/11/17 at 16:00; Stop 03/12/17 at 15:59; Status DC Succinylcholine Chloride (Quelicin Inj) 200 mg STK-MED ONCE IV PUSH ; Start at 15:27; Stop 03/12/17 at 08:59; Status DC Sodium Chloride 250 ml @ 15 mls/hr ONCE ONCE IV Last administered on 10:15; Start 03/12/17 at 10:15; Stop 03/13/17 at 02:54; Status DC Acetaminophen (Tylenol) 650 mg Q4H PRN PO SEE LABEL COMMENTS; Start 03/12/17 at 10:15; Stop 03/12/17 at 14:16; Status DC Diphenhydramine HCl (Benadryl) 25 mg Q4H PRN PO SEE LABEL COMMENTS; Start 03/12 at 10:15; Stop 03/12/17 at 14:16; Status DC Potassium Chloride 100 ml @ 50 mls/hr Q2H IV Last administered on 03/12/17 13 :25; Start 03/12/17 at 11:00; Stop 03/12/17 at 14:59; Status DC Lidocaine HCl (Xylocaine 2% Inj) 50 ml STK-MED ONCE .ROUTE ; Start 03/12/17 at 13:04; Stop 03/12/17 at 13:05; Status DC Mupirocin (Bactroban 2% Oint) 22 applic STK-MED ONCE .ROUTE ; Start 03/12/17 at 13:06; Stop 03/12/17 at 13:07; Status DC Hydromorphone HCl (Dilaudid Pf Inj) 2 mg STK-MED ONCE .ROUTE ; Start 03/12/17 at 15:18; Stop 03/12/17 at 15:19; Status DC Acetaminophen (Ofirmev Inj) 1,000 mg STK-MED ONCE IV ; Start 03/12/17 at 15:18; Stop 03/12/17 at 15:19; Status DC Vancomycin HCl (Vancomycin Inj) 1,000 mg STK-MED ONCE .ROUTE Last administered on 03/12/17 15:54; Start 03/12/17 at 15:57; Stop 03/12/17 at 15:58; Status DC Neomycin/Polymyxin (Neosporin G.u. Irr) 2 ml STK-MED ONCE TOPICAL Last administered on 03/12/17 15:54; Start 03/12/17 at 15:54; Stop 03/12/17 at 16:15 ; Status DC Fentanyl Citrate (fentaNYL INJ) 250 mcg STK-MED ONCE .ROUTE ; Start 03/12/17 at 17:04; Stop 03/12/17 at 17:05; Status DC Miscellaneous Information ALL NURSING DEPARTME... UNSCH PRN .XX SEE LABEL COMMENTS; Start 03/12/17 at 17:30; Stop 03/13/17 at 17:29; Status DC Morphine Sulfate (*morphine INJ PERIprocedure ONLY) 8 mg STK-MED ONCE .ROUTE Last administered on 03/12/17 17:33; Start 03/12/17 at 17:33; Stop 03/12/17 at 17:34; Status DC Lidocaine HCl (Xylocaine 1% Inj) 10 ml ONCE@0700 ONCE OTHER ; Start 03/13/17 at 07:00; Stop 03/13/17 at 07:01; Status DC Potassium Chloride/Sodium Chloride 1,000 ml @ 75 mls/hr [id number] IV Last administered on 04/07/17 10:54; Start 03/13/17 at 11:30; Stop 04/07/17 at 13:42 ; Status DC Polyethylene Glycol/ Electrolytes (Colyte Liq) 4,000 ml ONCE ONCE PEG Last administered on 03/14/17 17:13; Start 03/14/17 at 16:00; Stop 03/14/17 at 16:01 ; Status DC Sodium Chloride 250 ml @ 15 mls/hr ONCE ONCE IV Last administered on 21:30; Start 03/13/17 at 20:00; Stop 03/14/17 at 12:39; Status DC Polyethylene Glycol/ Electrolytes (Colyte Liq) 4,000 ml ONCE ONCE PO Last administered on 03/15/17 17:19; Start 03/15/17 at 16:45; Stop 03/15/17 at 16:48 ; Status DC Propofol (Diprivan 200 Mg/20 ml Inj) 180 mg ONCE ONCE IV Last administered on 03/15/17 16:45; Start 03/15/17 at 16:43; Stop 03/15/17 at 16:45; Status DC Sodium Biphosphate/ Sodium Phosphate (Fleets Enema (Adult)) 133 ml ONCE ONCE RECTAL Last administered on 03/16/17 14:45; Start 03/16/17 at 14:15; Stop at 14:21; Status DC Sodium Biphosphate/ Sodium Phosphate (Fleets Enema (Adult)) 133 ml ONCE ONCE RECTAL Last administered on 03/17/17 09:49; Start 03/17/17 at 08:00; Stop at 08:01; Status DC Propofol (Diprivan 200 Mg/20 ml Inj) 100 mg ONCE ONCE IV PUSH ; Start at 15:00; Stop 03/16/17 at 15:01; Status DC Midazolam HCl (Versed Inj) 2 mg STK-MED ONCE .ROUTE ; Start 03/16/17 at 15:34; Stop 03/16/17 at 15:35; Status DC Vancomycin HCl (Vancomycin Inj) 1,000 mg STK-MED ONCE .ROUTE Last administered on 03/18/17 18:58; Start 03/18/17 at 18:15; Stop 03/18/17 at 18:16; Status DC Fentanyl Citrate (fentaNYL INJ) 200 mcg STK-MED ONCE .ROUTE ; Start 03/18/17 at 19:50; Stop 03/18/17 at 19:51; Status DC Methocarbamol (Robaxin) 500 mg Q8HR PO Last administered on 04/14/17 05:25; Start 03/19/17 at 14:00; Stop 04/14/17 at 12:13; Status DC Acetaminophen 100 ml @ As Directed STK-MED ONCE IV ; Start 03/24/17 at 09:21; Stop 03/24/17 at 09:22; Status DC Midazolam HCl (Versed Inj) 2 mg STK-MED ONCE .ROUTE ; Start 03/24/17 at 09:21; Stop 03/24/17 at 09:22; Status DC Fentanyl Citrate (fentaNYL INJ) 100 mcg STK-MED ONCE .ROUTE ; Start 03/24/17 at 09:21; Stop 03/24/17 at 09:22; Status DC Fentanyl Citrate (fentaNYL INJ) 100 mcg STK-MED ONCE .ROUTE ; Start 03/24/17 at 09:21; Stop 03/24/17 at 09:22; Status DC Hydromorphone HCl (*DILAUDID PF INJ PERIprocedural ONLY) 1 mg STK-MED ONCE .ROUTE Last administered on 03/24/17 14:53; Start 03/24/17 at 14:53; Stop at 14:54; Status DC Meperidine HCl (*DEMEROL INJ PERIprocedural ONLY) 25 mg STK-MED ONCE .ROUTE Last administered on 03/24/17 15:01; Start 03/24/17 at 15:01; Stop 03/24/17 at 15:02; Status DC Fentanyl Citrate (fentaNYL INJ) 400 mcg STK-MED ONCE .ROUTE ; Start 03/24/17 at 15:01; Stop 03/24/17 at 15:02; Status DC Miscellaneous Information ALL NURSING DEPARTME... UNSCH PRN .XX SEE LABEL COMMENTS; Start 03/24/17 at 14:52; Stop 03/25/17 at 14:51; Status DC Polyethylene Glycol (Miralax) 17 gm DAILY PO ; Start 03/24/17 at 16:30; Status Cancel Acetaminophen (Tylenol) 650 mg Q4H PRN PO fever Last administered on 03/25/17 10:02; Start 03/25/17 at 10:00 Piperacillin Sod/ Tazobactam Sod 100 ml @ 200 mls/hr Q8H IV Last administered on 03/29/17 12:36; Start 03/25/17 at 20:00; Stop 03/29/17 at 14:34; Status DC Furosemide (Lasix Inj) 10 mg ONCE ONCE IV PUSH Last administered on 03/26/17 13:47; Start 03/26/17 at 13:30; Stop 03/26/17 at 13:34; Status DC Furosemide (Lasix Inj) 10 mg UNSCH X1 IV PUSH Last administered on 03/27/17 01 :31; Start 03/26/17 at 17:15; Stop 03/26/17 at 23:59; Status DC Levothyroxine Sodium (Synthroid) 50 mcg DAILY@0600 PO Last administered on 04/19 05:42; Start 03/30/17 at 06:00 Levothyroxine Sodium (Synthroid) 50 mcg ONCE ONCE PO Last administered on 12:55; Start 03/29/17 at 12:00; Stop 03/29/17 at 12:02; Status DC Levofloxacin (Levaquin) 500 mg DAILY PO Last administered on 04/07/17 08:46; Start 03/29/17 at 14:45; Stop 04/07/17 at 14:44; Status DC Propofol (Diprivan 200 Mg/20 ml Inj) 200 mg STK-MED ONCE IV ; Start 02/26/17 at 12:00; Stop 03/30/17 at 13:17; Status DC Neostigmine Methylsulfate (Prostigmin Inj) 3 mg STK-MED ONCE IV ; Start 02/26/17 at 12:00; Stop 03/30/17 at 13:17; Status DC Phenylephrine HCl (Neosynephrine/ NS 1000 Mcg/10ml Syr) 1,000 mcg STK-MED ONCE IV ; Start 02/26/17 at 12:00; Stop 03/30/17 at 13:17; Status DC Lactated Ringer's 2,000 ml @ As Directed STK-MED ONCE IV ; Start 02/26/17 at 12: 00; Stop 03/30/17 at 13:17; Status DC Propofol (Diprivan 200 Mg/20 ml Inj) 200 mg STK-MED ONCE IV ; Start 02/28/17 at 12:00; Stop 03/30/17 at 13:46; Status DC Neostigmine Methylsulfate (Prostigmin Inj) 3 mg STK-MED ONCE IV ; Start 02/28/17 at 12:00; Stop 03/30/17 at 13:46; Status DC Lactated Ringer's 2,000 ml @ As Directed STK-MED ONCE IV ; Start 02/28/17 at 12: 00; Stop 03/30/17 at 13:46; Status DC Propofol (Diprivan 200 Mg/20 ml Inj) 400 mg STK-MED ONCE IV ; Start 03/04/17 at 12:00; Stop 03/30/17 at 14:07; Status DC Ephedrine Sulfate (ePHEDrine/NS 25 MG/5 ML SYR) 25 mg STK-MED ONCE IV ; Start at 12:00; Stop 03/30/17 at 14:07; Status DC Phenylephrine HCl (Neosynephrine/ NS 1000 Mcg/10ml Syr) 2,000 mcg STK-MED ONCE IV ; Start 03/04/17 at 12:00; Stop 03/30/17 at 14:08; Status DC Ondansetron HCl (Zofran Inj) 4 mg STK-MED ONCE IV PUSH ; Start 03/04/17 at 12:00 ; Stop 03/30/17 at 14:08; Status DC Propofol (Diprivan 200 Mg/20 ml Inj) 200 mg STK-MED ONCE IV ; Start 03/08/17 at 12:00; Stop 03/30/17 at 14:49; Status DC Ephedrine Sulfate (ePHEDrine/NS 25 MG/5 ML SYR) 50 mg STK-MED ONCE IV ; Start at 12:00; Stop 03/30/17 at 14:49; Status DC Neostigmine Methylsulfate (Prostigmin Inj) 4 mg STK-MED ONCE IV ; Start at 12:00; Stop 03/30/17 at 14:49; Status DC Phenylephrine HCl (Neosynephrine/ NS 1000 Mcg/10ml Syr) 1,000 mcg STK-MED ONCE IV ; Start 03/08/17 at 12:00; Stop 03/30/17 at 14:49; Status DC Ondansetron HCl (Zofran Inj) 4 mg STK-MED ONCE IV PUSH ; Start 03/08/17 at 12:00 ; Stop 03/30/17 at 14:49; Status DC Lactated Ringer's 1,000 ml @ As Directed STK-MED ONCE IV ; Start 03/08/17 at 12 :00; Stop 03/30/17 at 14:49; Status DC Propofol (Diprivan 200 Mg/20 ml Inj) 200 mg STK-MED ONCE IV ; Start 03/10/17 at 12:00; Stop 03/30/17 at 15:08; Status DC Ephedrine Sulfate (ePHEDrine/NS 25 MG/5 ML SYR) 25 mg STK-MED ONCE IV ; Start at 12:00; Stop 03/30/17 at 15:08; Status DC Neostigmine Methylsulfate (Prostigmin Inj) 3 mg STK-MED ONCE IV ; Start at 12:00; Stop 03/30/17 at 15:08; Status DC Phenylephrine HCl (Neosynephrine/ NS 1000 Mcg/10ml Syr) 2,000 mcg STK-MED ONCE IV ; Start 03/10/17 at 12:00; Stop 03/30/17 at 15:08; Status DC Ondansetron HCl (Zofran Inj) 4 mg STK-MED ONCE IV PUSH ; Start 03/10/17 at 12:00 ; Stop 03/30/17 at 15:08; Status DC Lactated Ringer's 1,000 ml @ As Directed STK-MED ONCE IV ; Start 03/10/17 at 12 :00; Stop 03/30/17 at 15:08; Status DC Sodium Chloride 1,000 ml @ As Directed STK-MED ONCE IV ; Start 03/10/17 at 12: 00; Stop 03/30/17 at 15:08; Status DC Propofol (Diprivan 200 Mg/20 ml Inj) 200 mg STK-MED ONCE IV ; Start 03/12/17 at 12:00; Stop 03/30/17 at 15:20; Status DC Ephedrine Sulfate (ePHEDrine/NS 25 MG/5 ML SYR) 25 mg STK-MED ONCE IV ; Start at 12:00; Stop 03/30/17 at 15:20; Status DC Phenylephrine HCl (Neosynephrine/ NS 1000 Mcg/10ml Syr) 1,000 mcg STK-MED ONCE IV ; Start 03/12/17 at 12:00; Stop 03/30/17 at 15:20; Status DC Ondansetron HCl (Zofran Inj) 4 mg STK-MED ONCE IV PUSH ; Start 03/12/17 at 12:00 ; Stop 03/30/17 at 15:20; Status DC Lactated Ringer's 1,000 ml @ As Directed STK-MED ONCE IV ; Start 03/12/17 at 12 :00; Stop 03/30/17 at 15:20; Status DC Propofol (Diprivan 200 Mg/20 ml Inj) 200 mg STK-MED ONCE IV ; Start 03/18/17 at 12:00; Stop 03/30/17 at 15:38; Status DC Ondansetron HCl (Zofran Inj) 4 mg STK-MED ONCE IV PUSH ; Start 03/18/17 at 12:00 ; Stop 03/30/17 at 15:38; Status DC Neostigmine Methylsulfate (Prostigmin Inj) 3 mg STK-MED ONCE IV ; Start at 12:00; Stop 03/30/17 at 15:38; Status DC Phenylephrine HCl (Neosynephrine/ NS 1000 Mcg/10ml Syr) 1,000 mcg STK-MED ONCE IV ; Start 03/18/17 at 12:00; Stop 03/30/17 at 15:38; Status DC Oxycodone/ Acetaminophen (Percocet 5-325 Mg) 1 tab Q4H PRN PO pain 3 to 5; Start 04/02/17 at 13:00; Stop 04/09/17 at 17:08; Status DC Oxycodone/ Acetaminophen (Percocet 10-325 Mg) 1 tab Q4H PRN PO pain 6-10 Last administered on 04/09/17 14:14; Start 04/02/17 at 13:00; Stop 04/09/17 at 17:08 ; Status DC Magnesium Sulfate/ Dextrose 100 ml @ 100 mls/hr Q1H IV Last administered on 16:15; Start 04/03/17 at 14:00; Stop 04/03/17 at 15:59; Status DC Sodium Chloride (Sodium Chloride) 1 gm TID PO Last administered on 04/07/17 13 :24; Start 04/04/17 at 14:00; Stop 04/07/17 at 13:45; Status DC Calcium Chloride 2 gm/Sodium Chloride 120 ml @ 120 mls/hr ONCE ONCE IV Last administered on 04/04/17 15:45; Start 04/04/17 at 14:00; Stop 04/04/17 at 14:59 ; Status DC Hydromorphone HCl (Dilaudid Pf Inj) 0.2 mg Q6H PRN IV PUSH breakthrough pain Last administered on 04/13/17 03:27; Start 04/09/17 at 17:15; Stop 04/13/17 at 03:27; Status DC Acetaminophen/ Hydrocodone Bitart ([place] 7.5-325 Mg) 1 tab Q4H PRN PO PAIN 6- 10 Last administered on 04/19/17 08:17; Start 04/09/17 at 17:15 Acetaminophen/ Hydrocodone Bitart ([place] 5-325 Mg) 1 tab Q4H PRN PO PAIN 3-5 Last administered on 04/18/17 01:26; Start 04/09/17 at 17:15 Tolvaptan (Samsca) 15 mg ONCE ONCE PO Last administered on 04/09/17 22:49; Start 04/09/17 at 19:30; Stop 04/09/17 at 19:32; Status DC Carvedilol (Coreg) 6.25 mg Q12HR PO Last administered on 04/19/17 08:17; Start 04/10/17 at 09:00 Clonidine (Catapres) 0.2 mg Q8H PO Last administered on 04/19/17 03:40; Start 04/10/17 at 20:00 Methocarbamol (Robaxin) 750 mg Q8HR PO Last administered on 04/19/17 05:42; Start 04/14/17 at 14:00 Sodium Chloride (Sodium Chloride) 1 gm TID PO Last administered on 04/19/17 08 :16; Start 04/18/17 at 13:00 Demeclocycline HCl (Declomycin) 300 mg Q12HR PO Last administered on 04/19/17 08:16; Start 04/18/17 at 11:45 A/P Assessment and Plan A/P Hyponatremia-now worsening; sodium level trending down. continue fluid restriction . patient previously received Tolvaptan- started on sodium tablet and demeclocyline. nephrology follow-up appreciated and previously d/w . monitor the sodium level closely. 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 distant showering of emboli to other joints. MRSA bacteremia Right ankle hardware infection, s/p partial removal of hardware. Deeper hardware embedded. SP RIGHT BKA Bilateral UE hand abscess and tenosynovitis, septic arthritis s.p multiple debridements. continue Daptomycin till 04/24/17 per ID Continue pain control. ID following Multiple surgeries thus far: - podiatry Dr. Reyes/Dr. Gamez on 02/26, 02/28, 03/04 - hand surgeon Dr. Bullock on 02/26, 02/28, 03/04, 03/08, 03/10 -right BKA Anemia Follow CBC Status post blood transfusion Acute Toxic/Metabolic Encephalopathy secondary to Sepsis-improved. Acute Alcohol Withdrawal - improved Hypertension Continue clonidine and Coreg, cardiology initiated low dose lisinopril, monitor renal function Follow blood pressures Adjust as needed for control Mild Systolic CHF Scrotal edema EF of 40-45% with global hypokinesis found on 02/28/17 Continue beta amarjit Hypothyroidism continue synthroid THADDEUS mostly vanco induced - resolved Monitor renal function Avoid nephrotoxins Previous event was likely secondary to ATN Hepatitis C- f/u as outpatient. Standard precautions DVT Prophylaxis Lovenox Discharge Planning previously d/w the case management; has to stay inpatient while receiving IV antibiotics. Flaca Houser MD Apr 19, 2017 10:48
[2017-04-19] MEDS: SODIUM CHLORIDE 0.9% IV SCH (13:31)
[2017-04-19] MEDS: DAPTOMYCIN IV SCH (13:31)
[2017-04-19] MEDS: ENOXAPARIN SODIUM 40 MG/0.4 ML SYRINGE SQ SCH (13:33)
--- NOTE | 2017-04-19 16:56 | HHI.NPPN ---
Subjective History of Present Illness 61 year old male with past medical history of hypertension, history of being homeless. He was admitted on February 25 with altered mental status and leukocytosis. I was called to see the patient because of elevated BUN and creatinine. Additional Remarks Patient is alert, eating well, watching the fluid restriction. Objective Data Data Vital Signs Date Time Temp Pulse Resp B/P (MAP) Pulse Ox O2 Delivery O2 Flow Rate FiO2 04/19/17 12:00 97.8 62 18 129/71 (90) 98 04/19/17 09:17 18 04/19/17 08:00 Room Air 04/19/17 08:00 98.5 57 18 152/85 (107) 100 04/19/17 04:00 97.9 55 18 133/72 (92) 98 04/19/17 04:00 97.9 04/19/17 04:00 Room Air 04/19/17 00:00 Room Air 04/19/17 00:00 97.8 64 18 115/66 (82) 100 04/18/17 20:00 97.9 66 16 129/71 (90) 98 04/18/17 20:00 Room Air -: 04/19/17 0815 Physical Exam General Appearance: No Acute Distress, Anxious Eyes Eye Exam: Pupils Equal Throat Throat Exam: Oral Mucosa [place] & Moist Neck Neck Exam: Neck Supple Pulmonary Resp Exam: Breath Sounds Equal, No Distress, Rhonchi, Decreased Bases Cardiology CV Exam: Regular, Normal Sinus Rhythm Gastrointestinal/Abdomen GI Exam: Soft, Non-Tender, Bowel Sounds Present Extremeties Extremities Exam: Trace Edema Neurologic Neuro Exam: Alert, Awake Assessment/Plan Assessment Summary: THADDEUS/Acute Renal Failure Problem List: (1) Encephalopathy ICD Codes: G93.40 - Encephalopathy, unspecified Status: Acute (2) Essential hypertension ICD Codes: I10 - Essential (primary) hypertension Status: Acute (3) Hepatitis C, chronic ICD Codes: B18.2 - Chronic viral hepatitis C Status: Chronic (4) Abscess of right hand including fingers ICD Codes: L02.511 - Cutaneous abscess of right hand Status: Chronic (5) Abscess of left hand including fingers ICD Codes: L02.512 - Cutaneous abscess of left hand Status: Chronic (6) Alcoholism ICD Codes: F10.20 - Alcohol dependence, uncomplicated Status: Chronic (7) CHF (congestive heart failure) ICD Codes: I50.9 - Heart failure, unspecified Status: Acute (8) Sepsis ICD Codes: A41.9 - Sepsis, unspecified organism Status: Acute (9) ARF (acute renal failure) ICD Codes: N17.9 - Acute kidney failure, unspecified Status: Acute Plan Patient has Acute kidney injury and Creatinine now normalized. Na. improved after given one dose of Samsca on 04/09. Now gradually decreasing Na. and it is 121. Has elevated urine Osmolality in past, possible SIADH. Clinically euvolemic. Need to continue fluid restriction. Started on NaCl and Declomycin. Follow Na. level. Problem Qualifiers (1) Sepsis: Diane Barker MD Apr 19, 2017 16:56
[2017-04-19] MEDS ORDERED: FUROSEMIDE 20 MG/2 ML VIAL IV PUSH ONE (17:15)
[2017-04-19] MEDS: PANTOPRAZOLE SODIUM 40 MG VIAL IV PUSH SCH (23:58)
[2017-04-20] MEDS: ACETAMINOPHEN/HYDROcodone 325 MG/7.5 MG TAB PO PRN ×6 (01:32→23:31)
[2017-04-20] MEDS: LORazepam 1 MG TAB PO PRN ×3 (01:32→23:35)
[2017-04-20 04:17] VITALS: BP 141/78; PULSE 63; RESP 16; TEMP 98.3; O2SAT 99
[2017-04-20] MEDS: cloNIDine HCL 0.2 MG TAB PO SCH ×3 (04:55→21:25)
[2017-04-20] MEDS: LEVOTHYROXINE SODIUM 50 MCG TAB PO SCH (05:00)
[2017-04-20] MEDS: METHOCARBAMOL 500 MG TAB PO SCH ×3 (05:00→21:26)
[2017-04-20 08:00] VITALS: BP 117/60; PULSE 45; RESP 18; TEMP 98.4; O2SAT 97
[2017-04-20 08:23] LABS: BASOPHIL % 0.8 % (0.0-2.0); EOSINOPHIL # 0.3 TH/MM3 (0-0.4); EOSINOPHIL % 5.1 % (0.0-4.0); HEMATOCRIT 27.1 % (39.0-51.0); HEMO FLAGS DIFF FINAL; LYMPH % 12.8 % (9.0-44.0); LYMPHOCYTE # 0.7 TH/MM3 (1.0-4.8); MEAN CELL VOLUME 87.7 FL (80.0-100.0); MEAN CORPUSCULAR HEMOGLOBIN 29.1 PG (27.0-34.0); MEAN CORPUSCULAR HGB CONC 33.2 % (32.0-36.0); MONO % 10.9 % (0.0-8.0); NEUT % 70.4 % (16.0-70.0); PLATELET COUNT 385 TH/MM3 (150-450); RED BLOOD COUNT 3.09 MIL/MM3 (4.50-5.90); RED CELL DISTRIBUTION WIDTH 17.4 % (11.6-17.2); WHITE BLOOD COUNT 5.6 TH/MM3 (4.0-11.0)
[2017-04-20] MEDS: THIAMINE HCL 100 MG TAB PO SCH (09:08)
[2017-04-20] MEDS: MULTIVITAMIN TAB PO SCH (09:08)
[2017-04-20] MEDS: LISINOPRIL 5 MG TAB PO SCH (09:08)
[2017-04-20] MEDS: DEMECLOCYCLINE HCL 150 MG TAB PO SCH ×2 (09:08→21:25)
[2017-04-20] MEDS: CARVEDILOL 6.25 MG TAB PO SCH ×2 (09:08→21:25)
[2017-04-20] MEDS: SODIUM CHLORIDE 1 GRAM TAB PO SCH ×3 (09:08→18:43)
[2017-04-20] MEDS: MUPIROCIN 2% OINT 1 APPLIC/GM SYR NASAL SCH ×2 (09:08→21:25)
[2017-04-20 09:20] LABS: ALKALINE PHOSPHATASE 125 U/L (45-117); ALT (GPT) 39 U/L (12-78); ANION GAP 9 MEQ/L (5-15); AST (GOT) 35 U/L (15-37); BICARBONATE 24.6 MEQ/L (21.0-32.0); BLOOD UREA NITROGEN 14 MG/DL (7-18); CHLORIDE 89 MEQ/L (98-107); GLOMERULAR FILTRATION RATE 136 ML/MIN (>89); POTASSIUM 3.8 MEQ/L (3.5-5.1); TOTAL BILIRUBIN ADULT 0.3 MG/DL (0.2-1.0)
[2017-04-20 09:21] LABS: CREATINE KINASE 32 U/L (39-308)
[2017-04-20 09:24] LABS: SODIUM (NA) 123 MEQ/L (136-145)
--- NOTE | 2017-04-20 11:45 | HHI.PR ---
Subjective Remarks in no distress. other than some back pain no other new complaints. Objective Vitals Vital Signs Date Time Temp Pulse Resp B/P (MAP) Pulse Ox O2 Delivery O2 Flow Rate FiO2 04/20/17 08:10 Room Air 04/20/17 08:00 98.4 45 18 117/60 (79) 97 04/20/17 04:17 98.3 63 16 141/78 (99) 99 04/20/17 04:00 Room Air 04/20/17 00:00 Room Air 04/19/17 23:27 99.1 60 16 145/75 (98) 96 04/19/17 21:34 98.0 66 16 138/76 (96) 99 04/19/17 20:00 Room Air 04/19/17 16:00 98.6 69 18 136/74 (94) 99 04/19/17 14:32 18 04/19/17 12:00 97.8 62 18 129/71 (90) 98 I/O 04/19/17 04/19/17 04/19/17 04/20/17 04/20/17 04/20/17 07:00 15:00 23:00 07:00 15:00 23:00 Intake Total 200 ml 580 ml 250 ml 720 ml Output Total 400 ml 800 ml 2300 ml Balance -200 ml 580 ml -550 ml -1580 ml Intake Oral 200 ml 480 ml 250 ml 720 ml IV Total 100 ml Output Urine Total 400 ml 800 ml 2300 ml # Bowel Movements 1 Result Diagram: 04/20/17 0709 04/20/17 0709 Imaging Last Impressions Chest X-Ray 03/29/17 0000 Signed Impressions: Service Date/Time: Wednesday, March 29, 2017 12:17 - CONCLUSION: Stable chest. Isaac Stevenson MD FACR Tumor Localization 03/22/17 0000 Signed Impressions: Service Date/Time: Wednesday, March 22, 2017 13:03 - CONCLUSION: Nondiagnostic examination secondary to patient refusal Harry Lucio MD Abdomen X-Ray 03/08/17 0000 Signed Impressions: Service Date/Time: Wednesday, March 08, 2017 10:30 - CONCLUSION: Nonspecific, negative for obstruction or ileus. Isaac Stevenson MD FACR Lower Extremity CT 03/01/17 0000 Signed Impressions: Service Date/Time: Wednesday, March 01, 2017 11:12 - CONCLUSION: 1. No evidence of organized fluid collections to suggest an abscess. 2. Extensive soft tissue swelling surrounding the ankle and extending to the forefoot especially along the lateral aspect. 3. No erosive or destructive bone changes. 4. Bone defects compatible with previous excision device. Blake Rider MD Ankle X-Ray 02/26/17 0000 Signed Impressions: Service Date/Time: Sunday, February 26, 2017 17:15 - CONCLUSION: I see no retained surgical instruments. Isaac Stevenson MD FACR Upper Extremity Ultrasound 02/25/174 Signed Impressions: Service Date/Time: February 17:54 - CONCLUSION: There is a thin fluid collection within the focal area of soft tissue swelling 2nd digit. Oscar Cassidy MD Hand X-Ray 02/25/17 0000 Signed Impressions: Service Date/Time: February 18:59 - CONCLUSION: No gross bony abnormality. Oscar Cassidy MD Lower Extremity Ultrasound 02/24/17 0000 Signed Impressions: Service Date/Time: Friday, February 24, 2017 13:41 - CONCLUSION: Negative for deep venous thrombosis. Isaac Stevenson MD FACR Head CT 02/24/17 0000 Signed Impressions: Service Date/Time: Friday, February 24, 2017 16:08 - CONCLUSION: 1. No acute intracranial abnormality. 2. Probable large mucocele in the sphenoid sinus. Ty Hankins MD Abdomen/Pelvis CT 02/24/17 0000 Signed Impressions: Service Date/Time: Friday, February 24, 2017 16:16 - CONCLUSION: 1. Marked gaseous distension of large and small bowel most suggestive of ileus. 2. There is no free air. 3. 2.2 cm left adrenal mass. 4. Distended bladder. Isaac Stevenson MD FACR Objective Remarks GENERAL: This is a well-nourished, well-developed patient, in no apparent distress. CARDIOVASCULAR: Regular rate and regular rhythm without murmurs, gallops, or rubs. RESPIRATORY: Clear to auscultation. Breath sounds equal bilaterally. No wheezes , rales, or rhonchi. GASTROINTESTINAL: Abdomen soft, non-tender, nondistended. Normal, active bowel sounds MUSCULOSKELETAL: right forearm covered with clean dressing- s/p right BKA NEURO: Alert & Oriented x4 to person, place, time, situation. Moves all ext x4 Procedures 03/10/2017 - Dr. Bullock exploration, wash, excisional debridement extensor tenosynovium right wrist/forearm/hand 03/08/17 - Dr. Bullock- exploration, wash, excisional debridement skin, subcutaneous tissue, extensor tenosynovitis right wrist and hand. Findings: necrotic tissue, minimal purulence, extensor tenosynovitis right wrist/hand 03/04/17 - Dr Gamez - Right leg and incision and drainage. Right foot delayed primary closure x3 03/04/17 - Dr. Bullock - Extensor tenosynovectomy second, third, fourth extensor compartments right wrist and excisional debridement wash index finger metacarpal phalangeal joint, excisional wash and excisional debridement left hand. 02/28/17 - Dr. Reyes - Right ankle wound debridement and washout. Implantation of antibiotic vancomycin beads. 02/28/17 - Dr. Bullock - Exploration, wash, excisional debridement index finger metacarpophalangeal joint right hand; Exploration, wash, excisional debridement metacarpophalangeal joint left index finger; Exploration, wash, excisional debridement extensor pollicis longus tendon right thumb and hand. 02/26/17 - Dr. Reyes - Right ankle incision and drainage, arthrotomy, removal infected hardware, bone biopsy. 02/26/17 - Dr. Bullock - Exploration, incision and drainage right hand abscess, Arthrotomy wash metacarpal phalangeal joint right index finger, Arthrotomy wash metacarpal phalangeal joint left index finger. Medications and IVs Current Medications Sodium Chloride 1,000 ml @ 999 mls/hr BOLUS ONCE IV Last administered on 13:38; Start 02/24/17 at 13:45; Stop 02/24/17 at 14:45; Status DC IV Flush (NS Flush) 2 ml UNSCH PRN IV FLUSH FLUSH AFTER USING IV ACCESS Last administered on 02/24/17 13:38; Start 02/24/17 at 13:45 Vancomycin HCl 1000 mg/Sodium Chloride 250 ml @ 250 mls/hr ONCE STAT IV Last administered on 02/24/17 15:49; Start 02/24/17 at 15:35; Stop 02/24/17 at 16:34; Status DC Cefepime HCl 2000 mg/Sodium Chloride 100 ml @ 200 mls/hr ONCE STAT IV Last administered on 02/24/17 16:36; Start 02/24/17 at 15:35; Stop 02/24/17 at 16:04; Status DC Potassium Bicarb/ Potassium Chloride (K-Lyte Cl Eff) 50 meq ONCE ONCE PO Last administered on 02/24/17 15:56; Start 02/24/17 at 16:00; Stop 02/24/17 at 16: 01; Status DC Iohexol (Omnipaque 350 Inj) 97 ml STK-MED ONCE IV Last administered on 16:29; Start 02/24/17 at 16:29; Stop 02/24/17 at 16:30; Status DC Sodium Chloride 1,000 ml @ 125 mls/hr Q8H IV Last administered on 03/02/17 09: 33; Start 02/24/17 at 18:00; Stop 03/02/17 at 13:08; Status DC Ondansetron HCl (Zofran Inj) 4 mg Q8HR PRN IV PUSH NAUSEA; Start 02/24/17 at 18: 00 Thiamine HCl (Vitamin B1) 100 mg ONCE ONCE PO Last administered on 02/24/17 20 :20; Start 02/24/17 at 20:15; Stop 02/24/17 at 20:16; Status DC Thiamine HCl (Vitamin B1) 100 mg DAILY PO Last administered on 04/20/17 09:08 ; Start 02/25/17 at 09:00 Potassium Chloride 100 ml @ 50 mls/hr Q2H IV Last administered on 02/24/17 22: 59; Start 02/24/17 at 20:30; Stop 02/25/17 at 00:29; Status DC Pharmacy Profile Note 0 ml @ 0 mls/hr UNSCH OTHER ; Start 02/24/17 at 20:15; Stop 03/02/17 at 13:23; Status DC Cefepime HCl 2000 mg/Sodium Chloride 100 ml @ 200 mls/hr Q12H IV Last administered on 02/27/17 05:51; Start 02/25/17 at 07:00; Stop 02/27/17 at 14:53; Status DC Vancomycin HCl 1500 mg/Sodium Chloride 515 ml @ 257.5 mls/ hr Q18H IV Last administered on 02/25/17 10:30; Start 02/25/17 at 10:00; Stop 02/25/17 at 11:30; Status DC Miscellaneous Information SPECIFIC LAB TO BE DRAWN:VANCO TROUGH DATE TO BE DR... ONCE ONCE .XX ; Start 02/26/17 at 21:45; Stop 02/26/17 at 21:46; Status DC Flumazenil (Romazicon Inj) 0.2 mg Q1M PRN IV PUSH SEE LABEL COMMENTS; Start 02/25/17 at 09:15 Lorazepam (Ativan) 1 mg Q4H PRN PO agitation Last administered on 04/20/17 09: 51; Start 02/25/17 at 09:15 Lorazepam (Ativan Inj) 1 mg Q4H PRN IV PUSH agitation when not taking po Last administered on 03/05/17 02:41; Start 02/25/17 at 09:15 Lorazepam (Ativan) 2 mg Q2H PRN PO CIWA 11-14; Start 02/25/17 at 09:15; Stop 02/28/17 at 07:44; Status DC Lorazepam (Ativan Inj) 2 mg Q2H PRN IV PUSH CIWA 11-14 Last administered on 02/26 18:14; Start 02/25/17 at 09:15; Stop 02/28/17 at 07:44; Status DC Lorazepam (Ativan Inj) 2 mg Q1H PRN IV PUSH CIWA 15-20 Last administered on 02/25 21:37; Start 02/25/17 at 09:15; Stop 02/28/17 at 07:44; Status DC Lorazepam (Ativan Inj) 2 mg Q15M PRN IV PUSH CIWA > 20 Last administered on 02/26 06:25; Start 02/25/17 at 09:15; Stop 02/28/17 at 07:44; Status DC Multivitamins (Theragran) 1 tab DAILY PO Last administered on 04/20/17 09:08; Start 02/26/17 at 09:00 Acetaminophen (Tylenol) 650 mg Q4H PRN PO FEVER Last administered on 03/07/17 04:47; Start 02/25/17 at 09:15; Stop 03/12/17 at 10:47; Status DC Lisinopril (Prinivil) 10 mg DAILY PO ; Start 02/26/17 at 09:00; Stop 03/08/17 at 21:09; Status DC Enoxaparin Sodium (Lovenox Inj) 40 mg Q24H SQ Last administered on 03/07/17 10 :00; Start 02/25/17 at 10:00; Stop 03/10/17 at 12:17; Status DC Vancomycin HCl 1500 mg/Sodium Chloride 515 ml @ 257.5 mls/ hr Q12H IV Last administered on 02/26/17 09:42; Start 02/25/17 at 22:00; Stop 02/26/17 at 12:06; Status DC Miscellaneous Information SPECIFIC LAB TO BE ... ONCE ONCE .XX Last administered on 02/26/17 09:45; Start 02/26/17 at 09:45; Stop 02/26/17 at 09:46; Status DC Chlordiazepoxide (Librium) 25 mg Q8H PO ; Start 02/25/17 at 17:00; Stop 02/25/17 at 20:24; Status DC Gentamicin Sulfate 70 mg/ Sodium Chloride 101.75 ml @ 100 mls/ hr ONCE ONCE IV Last administered on 02/25/17 18:51; Start 02/25/17 at 18:30; Stop 02/25/17 at 19:31; Status DC Dexmedetomidine HCl 200 mcg/ Sodium Chloride 52 ml @ 0 mls/hr TITRATE IV Last administered on 02/27/17 13:55; Start 02/25/17 at 17:30; Stop 03/09/17 at 23:34; Status DC Acetaminophen (Ofirmev Inj) 650 mg Q6H PRN IV TEMP >101 Last administered on 20:12; Start 02/25/17 at 21:00; Stop 04/17/17 at 08:33; Status DC Iohexol (Omnipaque 350 Inj) 75 ml STK-MED ONCE IV Last administered on 21:15; Start 02/25/17 at 21:15; Stop 02/25/17 at 21:16; Status DC Potassium Chloride 100 ml @ 50 mls/hr Q2H PRN IV For Potassium 2.8 - 3.2 mEq/L ; Start 02/25/17 at 22:45; Stop 03/01/17 at 23:53; Status DC Potassium Chloride 100 ml @ 50 mls/hr Q2H PRN IV For Potassium 2.8 - 3.2 mEq/ L Last administered on 02/28/17t 12:32; Start 02/25/17 at 22:45; Stop 03/01/17 at 23:53; Status DC Potassium Bicarb/ Potassium Chloride (K-Lyte Cl Eff) 50 meq UNSCH PRN PO For Potassium 3.3 - 3.5 mEq/L; Start 02/25/17 at 22:45; Stop 03/01/17 at 23:53; Status DC Potassium Chloride 100 ml @ 25 mls/hr UNSCH PRN IV For Potassium 3.3 - 3.5 mEq /L; Start 02/25/17 at 22:45; Stop 03/01/17 at 23:53; Status DC Potassium Chloride 100 ml @ 50 mls/hr Q2H PRN IV For Potassium 3.3 - 3.5 mEq/ L Last administered on 02/28/17 06:39; Start 02/25/17 at 22:45; Stop 03/01/17 at 23:53; Status DC Magnesium Sulfate 4 gm/Sodium Chloride 100 ml @ 50 mls/hr UNSCH PRN IV For Magnesium 0.9 - 1.1 mg/dL; Start 02/25/17 at 22:45; Stop 03/01/17 at 23:53; Status DC Magnesium Oxide (Mag-Ox) 800 mg UNSCH PRN PO For Magnesium 1.2 - 1.6 mg/dL; Start 02/25/17 at 22:45; Stop 03/01/17 at 23:53; Status DC Magnesium Sulfate 2 gm/Sodium Chloride 100 ml @ 50 mls/hr UNSCH PRN IV For Magnesium 1.2 - 1.6 mg/dL; Start 02/25/17 at 22:45; Stop 03/01/17 at 23:53; Status DC Potassium Phosphate (K-Phos) 2,000 mg Q4H PRN PO For Phosphorus < 2.5 mg/dL; Start 02/25/17 at 22:45; Stop 03/01/17 at 23:53; Status DC Sodium Phosphate 30 mmol/Sodium Chloride 250 ml @ 42 mls/hr UNSCH PRN IV For Phosphorus < 2.5 mg/dL Last administered on 02/26/17 23:19; Start 02/25/17 at 22: 45; Stop 03/01/17 at 23:53; Status DC Potassium Phosphate (K-Phos) 2,000 mg UNSCH PRN PO/TUBE SEE LABEL COMMENTS; Start 02/25/17 at 22:45; Stop 03/01/17 at 23:53; Status DC Potassium Phosphate 30 mmol/ Sodium Chloride 260 ml @ 42 mls/hr UNSCH PRN IV SEE LABEL COMMENTS; Start 02/25/17 at 22:45; Stop 03/01/17 at 23:53; Status DC Labetalol HCl (Trandate Inj) 10 mg Q6H PRN IV PUSH SBP >165; Start 02/25/17 at 23:15 Pantoprazole Sodium (Protonix Inj) 40 mg Q24H IV PUSH Last administered on 04/19 23:58; Start 02/26/17 at 00:00 Miscellaneous Information Patient in critical care unit? Ass... [id number] .XX ; Start 02/26/17 at 07:15 Mupirocin (Bactroban Nasal 2% Oint) 1 applic BID NASAL Last administered on 09:08; Start 02/26/17 at 09:00 Chlorhexidine Gluconate (Chlorhexidine 2% Cloth) 3 pack DAILY@04 TOPICAL Last administered on 03/03/17 04:00; Start 02/27/17 at 04:00; Stop 03/03/17 at 04:01; Status DC Chlorhexidine Gluconate (Chlorhexidine 2% Cloth) 3 pack UNSCH PRN TOPICAL HYGIENIC CARE; Start 02/26/17 at 07:15; Stop 03/03/17 at 07:07; Status DC Lidocaine HCl (Xylocaine 2% Inj) 50 ml STK-MED ONCE .ROUTE ; Start 02/26/17 at 09 :35; Stop 02/26/17 at 09:36; Status DC Bupivacaine HCl (Marcaine Pf 0.5% Inj) 60 ml STK-MED ONCE .ROUTE ; Start at 09:35; Stop 02/26/17 at 09:36; Status DC Mupirocin (Bactroban 2% Oint) 22 applic STK-MED ONCE .ROUTE ; Start 02/26/17 at 09:35; Stop 02/26/17 at 09:36; Status DC Vancomycin HCl 1250 mg/Sodium Chloride 262.5 ml @ 250 mls/hr Q12H IV Last administered on 03/02/17 09:33; Start 02/26/17 at 22:00; Stop 03/02/17 at 13:23; Status DC Miscellaneous Information SPECIFIC LAB TO BE BIA... ONCE ONCE .XX Last administered on 02/27/17 22:46; Start 02/27/17 at 21:45; Stop 02/27/17 at 21:46; Status DC Neomycin/Polymyxin (Neosporin G.u. Irr) 3 ml STK-MED ONCE TOPICAL Last administered on 02/26/17 13:06; Start 02/26/17 at 13:06; Stop 02/26/17 at 16:26; Status DC Neomycin/Polymyxin (Neosporin G.u. Irr) 4 ml STK-MED ONCE TOPICAL Last administered on 02/26/17 15:47; Start 02/26/17 at 15:47; Stop 02/26/17 at 16:26; Status DC Fentanyl Citrate (fentaNYL INJ) 250 mcg STK-MED ONCE .ROUTE ; Start 02/26/17 at 18:16; Stop 02/26/17 at 18:17; Status DC Fentanyl Citrate (fentaNYL INJ) 100 mcg STK-MED ONCE .ROUTE ; Start 02/26/17 at 18:16; Stop 02/26/17 at 18:17; Status DC Miscellaneous Information ALL NURSING DEPARTME... UNSCH PRN .XX SEE LABEL COMMENTS; Start 02/26/17 at 17:57; Stop 02/27/17 at 17:56; Status DC Clonidine (Catapres) 0.3 mg Q8HR PO Last administered on 04/10/17 12:33; Start 02/26/17 at 22:11; Stop 04/10/17 at 12:52; Status DC Diazepam (Valium) 5 mg Taper DAILY PO Last administered on 03/06/17 09:49; Start 02/26/17 at 22:15; Stop 03/06/17 at 22:14; Status DC Water (Free Water) 200 ml Q8HR G-TUBE Last administered on 02/27/17 22:31; Start 02/27/17 at 06:55; Stop 02/28/17 at 07:41; Status DC Rifampin 300 mg/ Sodium Chloride 100 ml @ 100 mls/hr Q12H IV Last administered on 03/02/17 14:41; Start 02/27/17 at 15:00; Stop 03/02/17 at 16:41; Status DC Oxycodone HCl (Roxicodone) 5 mg Q4H PRN PO pain 1-5 Last administered on 09:26; Start 02/28/17 at 07:45; Stop 04/09/17 at 17:08; Status DC Hydromorphone HCl (Dilaudid Pf Inj) 0.5 mg Q3H PRN IV PUSH pain 6-10 or not taking po Last administered on 04/09/17 16:51; Start 02/28/17 at 07:45; Stop at 17:08; Status DC Water (Free Water) 300 ml Q4HR G-TUBE Last administered on 03/02/17 20:00; Start 02/28/17 at 08:00; Stop 03/02/17 at 23:07; Status DC Vancomycin HCl (Vancomycin Inj) 1,000 mg STK-MED ONCE .ROUTE Last administered on 02/28/17 09:01; Start 02/28/17 at 09:01; Stop 02/28/17 at 09:02; Status DC Vancomycin HCl (Vancomycin Inj) 1,000 mg STK-MED ONCE .ROUTE Last administered on 02/28/17 09:33; Start 02/28/17 at 09:33; Stop 02/28/17 at 09:34; Status DC Vancomycin HCl (Vancomycin Inj) 1,000 mg STK-MED ONCE .ROUTE Last administered on 02/28/17 09:36; Start 02/28/17 at 09:33; Stop 02/28/17 at 09:34; Status DC Daptomycin 450 mg/ Sodium Chloride 100 ml @ 200 mls/hr Q24H IV Last administered on 03/05/17 13:41; Start 02/28/17 at 12:00; Stop 03/05/17 at 18:00 ; Status DC Vancomycin HCl (Vancomycin Inj) 1,000 mg STK-MED ONCE .ROUTE Last administered on 02/28/17 10:45; Start 02/28/17 at 10:42; Stop 02/28/17 at 10:43; Status DC Vancomycin HCl (Vancomycin Inj) 500 mg STK-MED ONCE .ROUTE Last administered on 02/28/17 10:45; Start 02/28/17 at 10:42; Stop 02/28/17 at 10:43; Status DC Fentanyl Citrate (fentaNYL INJ) 250 mcg STK-MED ONCE .ROUTE ; Start 02/28/17 at 11:48; Stop 02/28/17 at 11:49; Status DC Miscellaneous Information ALL NURSING DEPARTME... UNSCH PRN .XX SEE LABEL COMMENTS; Start 02/28/17 at 11:33; Stop 03/01/17 at 11:32; Status DC Miscellaneous Information SPECIFIC LAB TO BE BIA... ONCE ONCE .XX ; Start 03/04 at 09:45; Stop 03/04/17 at 09:46; Status Cancel Sodium Chloride 1,000 ml @ 999 mls/hr BOLUS ONCE IV Last administered on 13:28; Start 03/02/17 at 13:15; Stop 03/02/17 at 14:15; Status DC Sodium Chloride 1,000 ml @ 125 mls/hr Q8H IV Last administered on 03/02/17 14: 18; Start 03/02/17 at 13:15; Stop 03/02/17 at 14:30; Status DC Rifampin (Rifampin) 300 mg Q12HR PO Last administered on 03/23/17 08:42; Start 03/02/17 at 21:00; Stop 03/23/17 at 18:40; Status DC Potassium Chloride 20 meq/ Sodium Chloride 38.5 meq/Sterile Water 1,010 ml @ 55 mls/hr [id number] IV Last administered on 03/09/17 22:51; Start 03/03/17 at 11: 00; Stop 03/09/17 at 23:36; Status DC Furosemide (Lasix Inj) 20 mg ONCE ONCE IV PUSH Last administered on 03/03/17 10:19; Start 03/03/17 at 09:30; Stop 03/03/17 at 09:43; Status DC Carvedilol (Coreg) 6.25 mg Q12HR PO Last administered on 04/09/17 08:40; Start 03/03/17 at 21:00; Stop 04/10/17 at 03:26; Status DC Vancomycin HCl (Vancomycin Inj) 1,000 mg STK-MED ONCE .ROUTE Last administered on 03/04/17 15:52; Start 03/04/17 at 15:10; Stop 03/04/17 at 15:11; Status DC Fentanyl Citrate (fentaNYL INJ) 100 mcg STK-MED ONCE .ROUTE ; Start 03/04/17 at 16:38; Stop 03/04/17 at 16:39; Status DC Fentanyl Citrate (fentaNYL INJ) 250 mcg STK-MED ONCE .ROUTE ; Start 03/04/17 at 16:38; Stop 03/04/17 at 16:39; Status DC Vancomycin HCl (Vancomycin Inj) 1,000 mg STK-MED ONCE .ROUTE Last administered on 03/04/17 16:52; Start 03/04/17 at 16:59; Stop 03/04/17 at 17:00; Status DC Fentanyl Citrate (fentaNYL INJ) 100 mcg STK-MED ONCE .ROUTE ; Start 03/04/17 at 18:24; Stop 03/04/17 at 18:25; Status DC Fentanyl Citrate (fentaNYL INJ) 250 mcg STK-MED ONCE .ROUTE ; Start 03/04/17 at 18:25; Stop 03/04/17 at 18:26; Status DC Miscellaneous Information ALL NURSING DEPARTME... UNSCH PRN .XX SEE LABEL COMMENTS; Start 03/04/17 at 19:15; Stop 03/05/17 at 19:14; Status DC Daptomycin 550 mg/ Sodium Chloride 100 ml @ 200 mls/hr Q24H IV Last administered on 04/19/17 13:31; Start 03/06/17 at 12:00 Bisacodyl (Dulcolax Supp) 10 mg DAILY PRN RECTAL SEVERE CONSITIPATION; Start at 21:00 Lactulose (Lactulose Liq) 30 ml DAILY PRN NG SEVERE CONSITIPATION Last administered on 03/07/17 18:45; Start 03/06/17 at 21:00 Docusate Sodium (Colace Liq) 100 mg Q12HR PO Last administered on 03/09/17 09: 30; Start 03/06/17 at 21:15; Status Future Hold Sodium Chloride 250 ml @ 15 mls/hr ONCE ONCE IV Last administered on 00:27; Start 03/07/17 at 19:00; Stop 03/08/17 at 12:06; Status DC Furosemide (Lasix Inj) 20 mg ONCE ONCE IV Last administered on 03/08/17 03:49 ; Start 03/07/17 at 19:00; Stop 03/07/17 at 19:01; Status DC Polyethylene Glycol/ Electrolytes (Colyte Liq) 4,000 ml ONCE ONCE PO ; Start at 11:00; Stop 03/08/17 at 11:01; Status Cancel Mupirocin (Bactroban 2% Oint) 22 applic STK-MED ONCE .ROUTE ; Start 03/08/17 at 12:10; Stop 03/08/17 at 12:11; Status DC Lidocaine HCl (Xylocaine 2% Inj) 50 ml STK-MED ONCE .ROUTE ; Start 03/08/17 at 12:13; Stop 03/08/17 at 12:14; Status DC Bupivacaine HCl (Marcaine Pf 0.5% Inj) 30 ml STK-MED ONCE .ROUTE ; Start at 12:17; Stop 03/08/17 at 12:18; Status DC Famotidine (Pepcid Inj) 20 mg STK-MED ONCE .ROUTE ; Start 03/08/17 at 13:17; Stop 03/08/17 at 13:18; Status DC Vancomycin HCl (Vancomycin Inj) 1,000 mg STK-MED ONCE .ROUTE Last administered on 03/08/17 14:35; Start 03/08/17 at 14:07; Stop 03/08/17 at 14:08; Status DC Sodium Chloride (Sodium Chloride 0.9% Inj) 20 ml STK-MED ONCE .ROUTE ; Start at 14:07; Stop 03/08/17 at 14:08; Status DC Vancomycin HCl (Vancomycin Inj) 1,000 mg STK-MED ONCE .ROUTE ; Start 03/08/17 at 14:42; Stop 03/08/17 at 14:43; Status DC Sodium Chloride (Sodium Chloride 0.9% Inj) 20 ml STK-MED ONCE .ROUTE ; Start at 14:42; Stop 03/08/17 at 14:43; Status DC Fentanyl Citrate (fentaNYL INJ) 500 mcg STK-MED ONCE .ROUTE ; Start 03/08/17 at 15:51; Stop 03/08/17 at 15:52; Status DC Miscellaneous Information ALL NURSING DEPARTME... UNSCH PRN .XX SEE LABEL COMMENTS; Start 03/08/17 at 15:40; Stop 03/09/17 at 15:39; Status DC Polyethylene Glycol/ Electrolytes (Colyte Liq) 4,000 ml ONCE ONCE NG Last administered on 03/08/17 22:42; Start 03/08/17 at 20:00; Stop 03/08/17 at 20:01 ; Status DC Lisinopril (Prinivil) 2.5 mg DAILY PO Last administered on 04/20/17 09:08; Start 03/09/17 at 09:00 Miscellaneous (Pill Splitter) 1 ea UNSCH PRN OTHER SEE LABEL COMMENTS; Start at 21:15 Dextrose 1,000 ml @ 84 mls/hr [id number] IV Last administered on 03/11/17 21:24 ; Start 03/09/17 at 23:45; Stop 03/11/17 at 23:38; Status DC Enoxaparin Sodium (Lovenox Inj) 40 mg Q24H SQ Last administered on 04/19/17 13 :33; Start 03/10/17 at 13:00; Status Future hold Bupivacaine HCl (Marcaine Pf 0.5% Inj) 30 ml STK-MED ONCE .ROUTE ; Start at 14:50; Stop 03/10/17 at 14:51; Status DC Lidocaine HCl (Xylocaine 2% Inj) 50 ml STK-MED ONCE .ROUTE ; Start 03/10/17 at 14:51; Stop 03/10/17 at 14:52; Status DC Bacitracin (Baciguent Oint) 15 applic STK-MED ONCE .ROUTE Last administered on 03/10/17 16:43; Start 03/10/17 at 14:51; Stop 03/10/17 at 14:52; Status DC Vancomycin HCl (Vancomycin Inj) 1,000 mg STK-MED ONCE .ROUTE Last administered on 03/10/17 15:49; Start 03/10/17 at 15:45; Stop 03/10/17 at 15:46; Status DC Sodium Chloride (Sodium Chloride 0.9% Inj) 20 ml STK-MED ONCE .ROUTE ; Start at 15:45; Stop 03/10/17 at 15:46; Status DC Neomycin/Polymyxin (Neosporin G.u. Irr) 2 ml STK-MED ONCE TOPICAL Last administered on 03/10/17 15:49; Start 03/10/17 at 15:49; Stop 03/10/17 at 15:59 ; Status DC Bacitracin (Baciguent Oint) 30 applic STK-MED ONCE .ROUTE Last administered on 03/10/17 16:44; Start 03/10/17 at 16:41; Stop 03/10/17 at 16:42; Status DC Hydromorphone HCl (Dilaudid Pf Inj) 2 mg STK-MED ONCE .ROUTE ; Start 03/10/17 at 16:47; Stop 03/10/17 at 16:48; Status DC Fentanyl Citrate (fentaNYL INJ) 250 mcg STK-MED ONCE .ROUTE ; Start 03/10/17 at 17:22; Stop 03/10/17 at 17:23; Status DC Morphine Sulfate (*morphine INJ PERIprocedure ONLY) 8 mg STK-MED ONCE .ROUTE Last administered on 03/10/17 18:12; Start 03/10/17 at 18:12; Stop 03/10/17 at 18:13; Status DC Miscellaneous Information ALL NURSING DEPARTME... UNSCH PRN .XX SEE LABEL COMMENTS; Start 03/10/17 at 14:30; Stop 03/11/17 at 14:29; Status DC Propofol (Diprivan 200 Mg/20 ml Inj) 200 mg STK-MED ONCE IV PUSH ; Start at 15:29; Stop 03/11/17 at 15:47; Status DC Oxybenzone/ Padimate O/ Dimethicone (Blistex Lip Gazelle) 4.25 applic STK-MED ONCE TOPICAL Last administered on 03/11/17 16:02; Start 03/11/17 at 16:02; Stop at 16:03; Status DC Miscellaneous Information ALL NURSING DEPARTME... UNSCH PRN .XX SEE LABEL COMMENTS; Start 03/11/17 at 16:00; Stop 03/12/17 at 15:59; Status DC Succinylcholine Chloride (Quelicin Inj) 200 mg STK-MED ONCE IV PUSH ; Start at 15:27; Stop 03/12/17 at 08:59; Status DC Sodium Chloride 250 ml @ 15 mls/hr ONCE ONCE IV Last administered on t 10:15; Start 03/12/17 at 10:15; Stop 03/13/17 at 02:54; Status DC Acetaminophen (Tylenol) 650 mg Q4H PRN PO SEE LABEL COMMENTS; Start 03/12/17 at 10:15; Stop 03/12/17 at 14:16; Status DC Diphenhydramine HCl (Benadryl) 25 mg Q4H PRN PO SEE LABEL COMMENTS; Start 03/12 at 10:15; Stop 03/12/17 at 14:16; Status DC Potassium Chloride 100 ml @ 50 mls/hr Q2H IV Last administered on 03/12/17 13 :25; Start 03/12/17 at 11:00; Stop 03/12/17 at 14:59; Status DC Lidocaine HCl (Xylocaine 2% Inj) 50 ml STK-MED ONCE .ROUTE ; Start 03/12/17 at 13:04; Stop 03/12/17 at 13:05; Status DC Mupirocin (Bactroban 2% Oint) 22 applic STK-MED ONCE .ROUTE ; Start 03/12/17 at 13:06; Stop 03/12/17 at 13:07; Status DC Hydromorphone HCl (Dilaudid Pf Inj) 2 mg STK-MED ONCE .ROUTE ; Start 03/12/17 at 15:18; Stop 03/12/17 at 15:19; Status DC Acetaminophen (Ofirmev Inj) 1,000 mg STK-MED ONCE IV ; Start 03/12/17 at 15:18; Stop 03/12/17 at 15:19; Status DC Vancomycin HCl (Vancomycin Inj) 1,000 mg STK-MED ONCE .ROUTE Last administered on 03/12/17 15:54; Start 03/12/17 at 15:57; Stop 03/12/17 at 15:58; Status DC Neomycin/Polymyxin (Neosporin G.u. Irr) 2 ml STK-MED ONCE TOPICAL Last administered on 03/12/17 15:54; Start 03/12/17 at 15:54; Stop 03/12/17 at 16:15 ; Status DC Fentanyl Citrate (fentaNYL INJ) 250 mcg STK-MED ONCE .ROUTE ; Start 03/12/17 at 17:04; Stop 03/12/17 at 17:05; Status DC Miscellaneous Information ALL NURSING DEPARTME... UNSCH PRN .XX SEE LABEL COMMENTS; Start 03/12/17 at 17:30; Stop 03/13/17 at 17:29; Status DC Morphine Sulfate (*morphine INJ PERIprocedure ONLY) 8 mg STK-MED ONCE .ROUTE Last administered on 03/12/17 17:33; Start 03/12/17 at 17:33; Stop 03/12/17 at 17:34; Status DC Lidocaine HCl (Xylocaine 1% Inj) 10 ml ONCE@0700 ONCE OTHER ; Start 03/13/17 at 07:00; Stop 03/13/17 at 07:01; Status DC Potassium Chloride/Sodium Chloride 1,000 ml @ 75 mls/hr [id number] IV Last administered on 04/07/17 10:54; Start 03/13/17 at 11:30; Stop 04/07/17 at 13:42 ; Status DC Polyethylene Glycol/ Electrolytes (Colyte Liq) 4,000 ml ONCE ONCE PEG Last administered on 03/14/17 17:13; Start 03/14/17 at 16:00; Stop 03/14/17 at 16:01 ; Status DC Sodium Chloride 250 ml @ 15 mls/hr ONCE ONCE IV Last administered on 21:30; Start 03/13/17 at 20:00; Stop 03/14/17 at 12:39; Status DC Polyethylene Glycol/ Electrolytes (Colyte Liq) 4,000 ml ONCE ONCE PO Last administered on 03/15/17 17:19; Start 03/15/17 at 16:45; Stop 03/15/17 at 16:48 ; Status DC Propofol (Diprivan 200 Mg/20 ml Inj) 180 mg ONCE ONCE IV Last administered on 03/15/17 16:45; Start 03/15/17 at 16:43; Stop 03/15/17 at 16:45; Status DC Sodium Biphosphate/ Sodium Phosphate (Fleets Enema (Adult)) 133 ml ONCE ONCE RECTAL Last administered on 03/16/17 14:45; Start 03/16/17 at 14:15; Stop at 14:21; Status DC Sodium Biphosphate/ Sodium Phosphate (Fleets Enema (Adult)) 133 ml ONCE ONCE RECTAL Last administered on 03/17/17 09:49; Start 03/17/17 at 08:00; Stop at 08:01; Status DC Propofol (Diprivan 200 Mg/20 ml Inj) 100 mg ONCE ONCE IV PUSH ; Start at 15:00; Stop 03/16/17 at 15:01; Status DC Midazolam HCl (Versed Inj) 2 mg STK-MED ONCE .ROUTE ; Start 03/16/17 at 15:34; Stop 03/16/17 at 15:35; Status DC Vancomycin HCl (Vancomycin Inj) 1,000 mg STK-MED ONCE .ROUTE Last administered on 03/18/17 18:58; Start 03/18/17 at 18:15; Stop 03/18/17 at 18:16; Status DC Fentanyl Citrate (fentaNYL INJ) 200 mcg STK-MED ONCE .ROUTE ; Start 03/18/17 at 19:50; Stop 03/18/17 at 19:51; Status DC Methocarbamol (Robaxin) 500 mg Q8HR PO Last administered on 04/14/17 05:25; Start 03/19/17 at 14:00; Stop 04/14/17 at 12:13; Status DC Acetaminophen 100 ml @ As Directed STK-MED ONCE IV ; Start 03/24/17 at 09:21; Stop 03/24/17 at 09:22; Status DC Midazolam HCl (Versed Inj) 2 mg STK-MED ONCE .ROUTE ; Start 03/24/17 at 09:21; Stop 03/24/17 at 09:22; Status DC Fentanyl Citrate (fentaNYL INJ) 100 mcg STK-MED ONCE .ROUTE ; Start 03/24/17 at 09:21; Stop 03/24/17 at 09:22; Status DC Fentanyl Citrate (fentaNYL INJ) 100 mcg STK-MED ONCE .ROUTE ; Start 03/24/17 at 09:21; Stop 03/24/17 at 09:22; Status DC Hydromorphone HCl (*DILAUDID PF INJ PERIprocedural ONLY) 1 mg STK-MED ONCE .ROUTE Last administered on 03/24/17 14:53; Start 03/24/17 at 14:53; Stop at 14:54; Status DC Meperidine HCl (*DEMEROL INJ PERIprocedural ONLY) 25 mg STK-MED ONCE .ROUTE Last administered on 03/24/17 15:01; Start 03/24/17 at 15:01; Stop 03/24/17 at 15:02; Status DC Fentanyl Citrate (fentaNYL INJ) 400 mcg STK-MED ONCE .ROUTE ; Start 03/24/17 at 15:01; Stop 03/24/17 at 15:02; Status DC Miscellaneous Information ALL NURSING DEPARTME... UNSCH PRN .XX SEE LABEL COMMENTS; Start 03/24/17 at 14:52; Stop 03/25/17 at 14:51; Status DC Polyethylene Glycol (Miralax) 17 gm DAILY PO ; Start 03/24/17 at 16:30; Status Cancel Acetaminophen (Tylenol) 650 mg Q4H PRN PO fever Last administered on 03/25/17 10:02; Start 03/25/17 at 10:00 Piperacillin Sod/ Tazobactam Sod 100 ml @ 200 mls/hr Q8H IV Last administered on 03/29/17 12:36; Start 03/25/17 at 20:00; Stop 03/29/17 at 14:34; Status DC Furosemide (Lasix Inj) 10 mg ONCE ONCE IV PUSH Last administered on 03/26/17 13:47; Start 03/26/17 at 13:30; Stop 03/26/17 at 13:34; Status DC Furosemide (Lasix Inj) 10 mg UNSCH X1 IV PUSH Last administered on 03/27/17 01 :31; Start 03/26/17 at 17:15; Stop 03/26/17 at 23:59; Status DC Levothyroxine Sodium (Synthroid) 50 mcg DAILY@0600 PO Last administered on 04/20 05:00; Start 03/30/17 at 06:00 Levothyroxine Sodium (Synthroid) 50 mcg ONCE ONCE PO Last administered on t 12:55; Start 03/29/17 at 12:00; Stop 03/29/17 at 12:02; Status DC Levofloxacin (Levaquin) 500 mg DAILY PO Last administered on 04/07/17t 08:46; Start 03/29/17 at 14:45; Stop 04/07/17 at 14:44; Status DC Propofol (Diprivan 200 Mg/20 ml Inj) 200 mg STK-MED ONCE IV ; Start 02/26/17 at 12:00; Stop 03/30/17 at 13:17; Status DC Neostigmine Methylsulfate (Prostigmin Inj) 3 mg STK-MED ONCE IV ; Start 02/26/17 at 12:00; Stop 03/30/17 at 13:17; Status DC Phenylephrine HCl (Neosynephrine/ NS 1000 Mcg/10ml Syr) 1,000 mcg STK-MED ONCE IV ; Start 02/26/17 at 12:00; Stop 03/30/17 at 13:17; Status DC Lactated Ringer's 2,000 ml @ As Directed STK-MED ONCE IV ; Start 02/26/17 at 12: 00; Stop 03/30/17 at 13:17; Status DC Propofol (Diprivan 200 Mg/20 ml Inj) 200 mg STK-MED ONCE IV ; Start 02/28/17 at 12:00; Stop 03/30/17 at 13:46; Status DC Neostigmine Methylsulfate (Prostigmin Inj) 3 mg STK-MED ONCE IV ; Start 02/28/17 at 12:00; Stop 03/30/17 at 13:46; Status DC Lactated Ringer's 2,000 ml @ As Directed STK-MED ONCE IV ; Start 02/28/17 at 12: 00; Stop 03/30/17 at 13:46; Status DC Propofol (Diprivan 200 Mg/20 ml Inj) 400 mg STK-MED ONCE IV ; Start 03/04/17 at 12:00; Stop 03/30/17 at 14:07; Status DC Ephedrine Sulfate (ePHEDrine/NS 25 MG/5 ML SYR) 25 mg STK-MED ONCE IV ; Start at 12:00; Stop 03/30/17 at 14:07; Status DC Phenylephrine HCl (Neosynephrine/ NS 1000 Mcg/10ml Syr) 2,000 mcg STK-MED ONCE IV ; Start 03/04/17 at 12:00; Stop 03/30/17 at 14:08; Status DC Ondansetron HCl (Zofran Inj) 4 mg STK-MED ONCE IV PUSH ; Start 03/04/17 at 12:00 ; Stop 03/30/17 at 14:08; Status DC Propofol (Diprivan 200 Mg/20 ml Inj) 200 mg STK-MED ONCE IV ; Start 03/08/17 at 12:00; Stop 03/30/17 at 14:49; Status DC Ephedrine Sulfate (ePHEDrine/NS 25 MG/5 ML SYR) 50 mg STK-MED ONCE IV ; Start at 12:00; Stop 03/30/17 at 14:49; Status DC Neostigmine Methylsulfate (Prostigmin Inj) 4 mg STK-MED ONCE IV ; Start at 12:00; Stop 03/30/17 at 14:49; Status DC Phenylephrine HCl (Neosynephrine/ NS 1000 Mcg/10ml Syr) 1,000 mcg STK-MED ONCE IV ; Start 03/08/17 at 12:00; Stop 03/30/17 at 14:49; Status DC Ondansetron HCl (Zofran Inj) 4 mg STK-MED ONCE IV PUSH ; Start 03/08/17 at 12:00 ; Stop 03/30/17 at 14:49; Status DC Lactated Ringer's 1,000 ml @ As Directed STK-MED ONCE IV ; Start 03/08/17 at 12 :00; Stop 03/30/17 at 14:49; Status DC Propofol (Diprivan 200 Mg/20 ml Inj) 200 mg STK-MED ONCE IV ; Start 03/10/17 at 12:00; Stop 03/30/17 at 15:08; Status DC Ephedrine Sulfate (ePHEDrine/NS 25 MG/5 ML SYR) 25 mg STK-MED ONCE IV ; Start at 12:00; Stop 03/30/17 at 15:08; Status DC Neostigmine Methylsulfate (Prostigmin Inj) 3 mg STK-MED ONCE IV ; Start at 12:00; Stop 03/30/17 at 15:08; Status DC Phenylephrine HCl (Neosynephrine/ NS 1000 Mcg/10ml Syr) 2,000 mcg STK-MED ONCE IV ; Start 03/10/17 at 12:00; Stop 03/30/17 at 15:08; Status DC Ondansetron HCl (Zofran Inj) 4 mg STK-MED ONCE IV PUSH ; Start 03/10/17 at 12:00 ; Stop 03/30/17 at 15:08; Status DC Lactated Ringer's 1,000 ml @ As Directed STK-MED ONCE IV ; Start 03/10/17 at 12 :00; Stop 03/30/17 at 15:08; Status DC Sodium Chloride 1,000 ml @ As Directed STK-MED ONCE IV ; Start 03/10/17 at 12: 00; Stop 03/30/17 at 15:08; Status DC Propofol (Diprivan 200 Mg/20 ml Inj) 200 mg STK-MED ONCE IV ; Start 03/12/17 at 12:00; Stop 03/30/17 at 15:20; Status DC Ephedrine Sulfate (ePHEDrine/NS 25 MG/5 ML SYR) 25 mg STK-MED ONCE IV ; Start at 12:00; Stop 03/30/17 at 15:20; Status DC Phenylephrine HCl (Neosynephrine/ NS 1000 Mcg/10ml Syr) 1,000 mcg STK-MED ONCE IV ; Start 03/12/17 at 12:00; Stop 03/30/17 at 15:20; Status DC Ondansetron HCl (Zofran Inj) 4 mg STK-MED ONCE IV PUSH ; Start 03/12/17 at 12:00 ; Stop 03/30/17 at 15:20; Status DC Lactated Ringer's 1,000 ml @ As Directed STK-MED ONCE IV ; Start 03/12/17 at 12 :00; Stop 03/30/17 at 15:20; Status DC Propofol (Diprivan 200 Mg/20 ml Inj) 200 mg STK-MED ONCE IV ; Start 03/18/17 at 12:00; Stop 03/30/17 at 15:38; Status DC Ondansetron HCl (Zofran Inj) 4 mg STK-MED ONCE IV PUSH ; Start 03/18/17 at 12:00 ; Stop 03/30/17 at 15:38; Status DC Neostigmine Methylsulfate (Prostigmin Inj) 3 mg STK-MED ONCE IV ; Start at 12:00; Stop 03/30/17 at 15:38; Status DC Phenylephrine HCl (Neosynephrine/ NS 1000 Mcg/10ml Syr) 1,000 mcg STK-MED ONCE IV ; Start 03/18/17 at 12:00; Stop 03/30/17 at 15:38; Status DC Oxycodone/ Acetaminophen (Percocet 5-325 Mg) 1 tab Q4H PRN PO pain 3 to 5; Start 04/02/17 at 13:00; Stop 04/09/17 at 17:08; Status DC Oxycodone/ Acetaminophen (Percocet 10-325 Mg) 1 tab Q4H PRN PO pain 6-10 Last administered on 04/09/17 14:14; Start 04/02/17 at 13:00; Stop 04/09/17 at 17:08 ; Status DC Magnesium Sulfate/ Dextrose 100 ml @ 100 mls/hr Q1H IV Last administered on 16:15; Start 04/03/17 at 14:00; Stop 04/03/17 at 15:59; Status DC Sodium Chloride (Sodium Chloride) 1 gm TID PO Last administered on 04/07/17 13 :24; Start 04/04/17 at 14:00; Stop 04/07/17 at 13:45; Status DC Calcium Chloride 2 gm/Sodium Chloride 120 ml @ 120 mls/hr ONCE ONCE IV Last administered on 04/04/17 15:45; Start 04/04/17 at 14:00; Stop 04/04/17 at 14:59 ; Status DC Hydromorphone HCl (Dilaudid Pf Inj) 0.2 mg Q6H PRN IV PUSH breakthrough pain Last administered on 04/13/17 03:27; Start 04/09/17 at 17:15; Stop 04/13/17 at 03:27; Status DC Acetaminophen/ Hydrocodone Bitart ([place] 7.5-325 Mg) 1 tab Q4H PRN PO PAIN 6- 10 Last administered on 04/20/17 09:51; Start 04/09/17 at 17:15 Acetaminophen/ Hydrocodone Bitart ([place] 5-325 Mg) 1 tab Q4H PRN PO PAIN 3-5 Last administered on 04/18/17 01:26; Start 04/09/17 at 17:15 Tolvaptan (Samsca) 15 mg ONCE ONCE PO Last administered on 04/09/17 22:49; Start 04/09/17 at 19:30; Stop 04/09/17 at 19:32; Status DC Carvedilol (Coreg) 6.25 mg Q12HR PO Last administered on 04/20/17 09:08; Start 04/10/17 at 09:00 Clonidine (Catapres) 0.2 mg Q8H PO Last administered on 04/20/17 04:55; Start 04/10/17 at 20:00 Methocarbamol (Robaxin) 750 mg Q8HR PO Last administered on 04/20/17 05:00; Start 04/14/17 at 14:00 Sodium Chloride (Sodium Chloride) 1 gm TID PO Last administered on 04/20/17 09 :08; Start 04/18/17 at 13:00 Demeclocycline HCl (Declomycin) 300 mg Q12HR PO Last administered on 04/20/17 09:08; Start 04/18/17 at 11:45 Furosemide (Lasix Inj) 20 mg ONCE ONCE IV PUSH Last administered on 04/19/17 17:39; Start 04/19/17 at 17:15; Stop 04/19/17 at 17:16; Status DC A/P Assessment and Plan A/P Hyponatremia-slightly improved. continue fluid restriction . patient previously received Tolvaptan- started on sodium tablet and Demeclocycline. nephrology following. monitor the sodium level closely. 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 distant showering of emboli to other joints. MRSA bacteremia Right ankle hardware infection, s/p partial removal of hardware. Deeper hardware embedded. SP RIGHT BKA Bilateral UE hand abscess and tenosynovitis, septic arthritis s.p multiple debridements. continue Daptomycin till 04/24/17 per ID Continue pain control. ID following Multiple surgeries thus far: - podiatry Dr. Reyes/Dr. Gamez on 02/26, 02/28, 03/04 - hand surgeon Dr. Bullock on 02/26, 02/28, 03/04, 03/08, 03/10 -right BKA Anemia Follow CBC Status post blood transfusion Acute Toxic/Metabolic Encephalopathy secondary to Sepsis-improved. Acute Alcohol Withdrawal - improved Hypertension Continue clonidine and Coreg, cardiology initiated low dose lisinopril, monitor renal function Follow blood pressures Adjust as needed for control Mild Systolic CHF Scrotal edema EF of 40-45% with global hypokinesis found on 02/28/17 Continue beta amajrit Hypothyroidism continue synthroid THADDEUS mostly vanco induced - resolved Monitor renal function Avoid nephrotoxins Previous event was likely secondary to ATN Hepatitis C- f/u as outpatient. Standard precautions DVT Prophylaxis Lovenox Discharge Planning previously d/w the case management; has to stay inpatient while receiving IV antibiotics. Flaca Houser MD Apr 20, 2017 11:45
[2017-04-20 12:00] VITALS: BP 104/63; PULSE 73; RESP 18; TEMP 98.4; O2SAT 96
[2017-04-20] MEDS: DAPTOMYCIN IV SCH (12:51)
[2017-04-20] MEDS: SODIUM CHLORIDE 0.9% IV SCH (12:51)
[2017-04-20] MEDS: ENOXAPARIN SODIUM 40 MG/0.4 ML SYRINGE SQ SCH (12:52)
[2017-04-20 16:00] VITALS: BP 112/56; PULSE 72; RESP 18; TEMP 98.3; O2SAT 98
[2017-04-20 20:00] VITALS: BP 122/63; PULSE 65; RESP 18; TEMP 98.5; O2SAT 98
[2017-04-20] MEDS: PANTOPRAZOLE SODIUM 40 MG VIAL IV PUSH SCH (21:26)
--- NOTE | 2017-04-20 22:16 | HHI.NPPN ---
Subjective History of Present Illness 61 year old male with past medical history of hypertension, history of being homeless. He was admitted on February 25 with altered mental status and leukocytosis. I was called to see the patient because of elevated BUN and creatinine. Additional Remarks Patient is alert, eating well, no SOB, no headache , dizziness. Objective Data Data 04/20/17 04/21/17 19:00 07:00 Intake Total 820 ml Output Total 450 ml Balance 370 ml Intake Oral 720 ml IV Total 100 ml Output Urine Total 450 ml # Bowel Movements 0 Vital Signs Date Time Temp Pulse Resp B/P (MAP) Pulse Ox O2 Delivery O2 Flow Rate FiO2 04/20/17 19:42 20 04/20/17 16:00 98.3 72 18 112/56 (74) 98 04/20/17 12:00 98.4 73 18 104/63 (77) 96 04/20/17 08:10 Room Air 04/20/17 08:00 98.4 45 18 117/60 (79) 97 04/20/17 04:17 98.3 63 16 141/78 (99) 99 04/20/17 04:00 Room Air 04/20/17 00:00 Room Air 04/19/17 23:27 99.1 60 16 145/75 (98) 96 -: 04/20/17 0709 04/20/17 0709 Physical Exam General Appearance: No Acute Distress, Anxious Eyes Eye Exam: Pupils Equal Throat Throat Exam: Oral Mucosa [place] & Moist Neck Neck Exam: Neck Supple Pulmonary Resp Exam: Breath Sounds Equal, No Distress, Rhonchi, Decreased Bases Cardiology CV Exam: Regular, Normal Sinus Rhythm Gastrointestinal/Abdomen GI Exam: Soft, Non-Tender, Bowel Sounds Present Extremeties Extremities Exam: Trace Edema Neurologic Neuro Exam: Alert, Awake Assessment/Plan Assessment Summary: THADDEUS/Acute Renal Failure Problem List: (1) Encephalopathy ICD Codes: G93.40 - Encephalopathy, unspecified Status: Acute (2) Essential hypertension ICD Codes: I10 - Essential (primary) hypertension Status: Acute (3) Hepatitis C, chronic ICD Codes: B18.2 - Chronic viral hepatitis C Status: Chronic (4) Abscess of right hand including fingers ICD Codes: L02.511 - Cutaneous abscess of right hand Status: Chronic (5) Abscess of left hand including fingers ICD Codes: L02.512 - Cutaneous abscess of left hand Status: Chronic (6) Alcoholism ICD Codes: F10.20 - Alcohol dependence, uncomplicated Status: Chronic (7) CHF (congestive heart failure) ICD Codes: I50.9 - Heart failure, unspecified Status: Acute (8) Sepsis ICD Codes: A41.9 - Sepsis, unspecified organism Status: Acute (9) ARF (acute renal failure) ICD Codes: N17.9 - Acute kidney failure, unspecified Status: Acute Plan Patient has Acute kidney injury and Creatinine now normalized. Na. improved after given one dose of Samsca on 04/09. Now gradually decreasing Na. and it is 123. Has elevated urine Osmolality in past, possible SIADH. Clinically euvolemic. Need to continue fluid restriction. On NaCl, and Declomycin. urine osmolality is high. If Na. is not better, will consider Samsca. Problem Qualifiers (1) Sepsis: Diane Barker MD Apr 20, 2017 22:16
[2017-04-21] VITALS (7 sets, daily range): BP systolic 111–144; BP diastolic 52–74; PULSE 64–74; RESP 16–18; TEMP 98.1–98.7; O2SAT 96–100
[2017-04-21] MEDS: LEVOTHYROXINE SODIUM 50 MCG TAB PO SCH (04:23)
[2017-04-21] MEDS: cloNIDine HCL 0.2 MG TAB PO SCH ×3 (04:24→20:41)
[2017-04-21] MEDS: METHOCARBAMOL 500 MG TAB PO SCH ×3 (04:24→22:12)
[2017-04-21] MEDS: ACETAMINOPHEN/HYDROcodone 325 MG/7.5 MG TAB PO PRN ×5 (04:26→20:44)
[2017-04-21] MEDS: SODIUM CHLORIDE 1 GRAM TAB PO SCH ×3 (08:07→16:36)
[2017-04-21] MEDS: MULTIVITAMIN TAB PO SCH (08:08)
[2017-04-21] MEDS: THIAMINE HCL 100 MG TAB PO SCH (08:08)
[2017-04-21] MEDS: LISINOPRIL 5 MG TAB PO SCH (08:08)
[2017-04-21] MEDS: CARVEDILOL 6.25 MG TAB PO SCH ×2 (08:08→20:41)
[2017-04-21] MEDS: MUPIROCIN 2% OINT 1 APPLIC/GM SYR NASAL SCH ×2 (08:08→20:41)
[2017-04-21] MEDS: DEMECLOCYCLINE HCL 150 MG TAB PO SCH ×2 (08:08→20:41)
--- NOTE | 2017-04-21 10:58 | HHI.PR ---
Subjective Remarks in no distress. complaining of back spasm. no fever. Objective Vitals Vital Signs Date Time Temp Pulse Resp B/P (MAP) Pulse Ox O2 Delivery O2 Flow Rate FiO2 04/21/17 08:20 Room Air 04/21/17 08:00 98.6 67 18 135/71 (92) 98 04/21/17 05:26 20 04/21/17 04:07 123/74 (90) 04/21/17 04:00 98.1 66 18 120/70 (87) 98 04/21/17 00:00 Room Air 04/20/17 20:00 Room Air 04/20/17 20:00 98.5 65 18 122/63 (82) 98 04/20/17 16:00 98.3 72 18 112/56 (74) 98 04/20/17 12:00 98.4 73 18 104/63 (77) 96 I/O 04/20/17 04/20/17 04/20/17 04/21/17 04/21/17 04/21/17 07:00 15:00 23:00 07:00 15:00 23:00 Intake Total 720 ml 100 ml 720 ml Output Total 2300 ml 450 ml 700 ml Balance -1580 ml 100 ml 270 ml -700 ml Intake Oral 720 ml 720 ml IV Total 100 ml Output Urine Total 2300 ml 450 ml 700 ml # Bowel Movements 1 0 Result Diagram: 04/20/17 0709 04/21/17 0738 Imaging Last Impressions Chest X-Ray 03/29/17 0000 Signed Impressions: Service Date/Time: Wednesday, March 29, 2017 12:17 - CONCLUSION: Stable chest. Isaac Stevenson MD FACR Tumor Localization 03/22/17 0000 Signed Impressions: Service Date/Time: Wednesday, March 22, 2017 13:03 - CONCLUSION: Nondiagnostic examination secondary to patient refusal Harry Lucio MD Abdomen X-Ray 03/08/17 0000 Signed Impressions: Service Date/Time: Wednesday, March 08, 2017 10:30 - CONCLUSION: Nonspecific, negative for obstruction or ileus. Isaac Stevenson MD FACR Lower Extremity CT 03/01/17 0000 Signed Impressions: Service Date/Time: Wednesday, March 01, 2017 11:12 - CONCLUSION: 1. No evidence of organized fluid collections to suggest an abscess. 2. Extensive soft tissue swelling surrounding the ankle and extending to the forefoot especially along the lateral aspect. 3. No erosive or destructive bone changes. 4. Bone defects compatible with previous excision device. Blake Rider MD Ankle X-Ray 02/26/17 0000 Signed Impressions: Service Date/Time: Sunday, February 26, 2017 17:15 - CONCLUSION: I see no retained surgical instruments. Isaac Stevenson MD FACR Upper Extremity Ultrasound 02/25/17 1734 Signed Impressions: Service Date/Time: February 17:54 - CONCLUSION: There is a thin fluid collection within the focal area of soft tissue swelling 2nd digit. Oscar Cassidy MD Hand X-Ray 02/25/17 0000 Signed Impressions: Service Date/Time: February 18:59 - CONCLUSION: No gross bony abnormality. Oscar Cassidy MD Lower Extremity Ultrasound 02/24/17 0000 Signed Impressions: Service Date/Time: Friday, February 24, 2017 13:41 - CONCLUSION: Negative for deep venous thrombosis. Isaac Stevenson MD FACR Head CT 02/24/17 0000 Signed Impressions: Service Date/Time: Friday, February 24, 2017 16:08 - CONCLUSION: 1. No acute intracranial abnormality. 2. Probable large mucocele in the sphenoid sinus. Ty Hankins MD Abdomen/Pelvis CT 02/24/17 0000 Signed Impressions: Service Date/Time: Friday, February 24, 2017 16:16 - CONCLUSION: 1. Marked gaseous distension of large and small bowel most suggestive of ileus. 2. There is no free air. 3. 2.2 cm left adrenal mass. 4. Distended bladder. Isaac Stevenson MD FACR Objective Remarks GENERAL: This is a well-nourished, well-developed patient, in no apparent distress. CARDIOVASCULAR: Regular rate and regular rhythm without murmurs, gallops, or rubs. RESPIRATORY: Clear to auscultation. Breath sounds equal bilaterally. No wheezes , rales, or rhonchi. GASTROINTESTINAL: Abdomen soft, non-tender, nondistended. Normal, active bowel sounds MUSCULOSKELETAL: right forearm covered with clean dressing- s/p right BKA NEURO: Alert & Oriented x4 to person, place, time, situation. Moves all ext x4 Procedures 03/10/2017 - Dr. Bullock exploration, wash, excisional debridement extensor tenosynovium right wrist/forearm/hand 03/08/17 - Dr. Bullock- exploration, wash, excisional debridement skin, subcutaneous tissue, extensor tenosynovitis right wrist and hand. Findings: necrotic tissue, minimal purulence, extensor tenosynovitis right wrist/hand 03/04/17 - Dr Gamez - Right leg and incision and drainage. Right foot delayed primary closure x3 03/04/17 - Dr. Bullock - Extensor tenosynovectomy second, third, fourth extensor compartments right wrist and excisional debridement wash index finger metacarpal phalangeal joint, excisional wash and excisional debridement left hand. 02/28/17 - Dr. Reyes - Right ankle wound debridement and washout. Implantation of antibiotic vancomycin beads. 02/28/17 - Dr. Bullock - Exploration, wash, excisional debridement index finger metacarpophalangeal joint right hand; Exploration, wash, excisional debridement metacarpophalangeal joint left index finger; Exploration, wash, excisional debridement extensor pollicis longus tendon right thumb and hand. 02/26/17 - Dr. Reyes - Right ankle incision and drainage, arthrotomy, removal infected hardware, bone biopsy. 02/26/17 - Dr. Bullock - Exploration, incision and drainage right hand abscess, Arthrotomy wash metacarpal phalangeal joint right index finger, Arthrotomy wash metacarpal phalangeal joint left index finger. Medications and IVs Current Medications Sodium Chloride 1,000 ml @ 999 mls/hr BOLUS ONCE IV Last administered on 13:38; Start 02/24/17 at 13:45; Stop 02/24/17 at 14:45; Status DC IV Flush (NS Flush) 2 ml UNSCH PRN IV FLUSH FLUSH AFTER USING IV ACCESS Last administered on 02/24/17 13:38; Start 02/24/17 at 13:45 Vancomycin HCl 1000 mg/Sodium Chloride 250 ml @ 250 mls/hr ONCE STAT IV Last administered on 02/24/17 15:49; Start 02/24/17 at 15:35; Stop 02/24/17 at 16:34; Status DC Cefepime HCl 2000 mg/Sodium Chloride 100 ml @ 200 mls/hr ONCE STAT IV Last administered on 02/24/17 16:36; Start 02/24/17 at 15:35; Stop 02/24/17 at 16:04; Status DC Potassium Bicarb/ Potassium Chloride (K-Lyte Cl Eff) 50 meq ONCE ONCE PO Last administered on 02/24/17 15:56; Start 02/24/17 at 16:00; Stop 02/24/17 at 16: 01; Status DC Iohexol (Omnipaque 350 Inj) 97 ml STK-MED ONCE IV Last administered on 16:29; Start 02/24/17 at 16:29; Stop 02/24/17 at 16:30; Status DC Sodium Chloride 1,000 ml @ 125 mls/hr Q8H IV Last administered on 03/02/17 09: 33; Start 02/24/17 at 18:00; Stop 03/02/17 at 13:08; Status DC Ondansetron HCl (Zofran Inj) 4 mg Q8HR PRN IV PUSH NAUSEA; Start 02/24/17 at 18: 00 Thiamine HCl (Vitamin B1) 100 mg ONCE ONCE PO Last administered on 02/24/17 20 :20; Start 02/24/17 at 20:15; Stop 02/24/17 at 20:16; Status DC Thiamine HCl (Vitamin B1) 100 mg DAILY PO Last administered on 04/21/17 08:08 ; Start 02/25/17 at 09:00 Potassium Chloride 100 ml @ 50 mls/hr Q2H IV Last administered on 02/24/17 22: 59; Start 02/24/17 at 20:30; Stop 02/25/17 at 00:29; Status DC Pharmacy Profile Note 0 ml @ 0 mls/hr UNSCH OTHER ; Start 02/24/17 at 20:15; Stop 03/02/17 at 13:23; Status DC Cefepime HCl 2000 mg/Sodium Chloride 100 ml @ 200 mls/hr Q12H IV Last administered on 02/27/17 05:51; Start 02/25/17 at 07:00; Stop 02/27/17 at 14:53; Status DC Vancomycin HCl 1500 mg/Sodium Chloride 515 ml @ 257.5 mls/ hr Q18H IV Last administered on 02/25/17 10:30; Start 02/25/17 at 10:00; Stop 02/25/17 at 11:30; Status DC Miscellaneous Information SPECIFIC LAB TO BE DRAWN:VANCO TROUGH DATE TO BE DR... ONCE ONCE .XX ; Start 02/26/17 at 21:45; Stop 02/26/17 at 21:46; Status DC Flumazenil (Romazicon Inj) 0.2 mg Q1M PRN IV PUSH SEE LABEL COMMENTS; Start 02/25/17 at 09:15 Lorazepam (Ativan) 1 mg Q4H PRN PO agitation Last administered on 04/20/17 23: 35; Start 02/25/17 at 09:15 Lorazepam (Ativan Inj) 1 mg Q4H PRN IV PUSH agitation when not taking po Last administered on 03/05/17 02:41; Start 02/25/17 at 09:15 Lorazepam (Ativan) 2 mg Q2H PRN PO CIWA 11-14; Start 02/25/17 at 09:15; Stop 02/28/17 at 07:44; Status DC Lorazepam (Ativan Inj) 2 mg Q2H PRN IV PUSH CIWA 11-14 Last administered on 02/26 18:14; Start 02/25/17 at 09:15; Stop 02/28/17 at 07:44; Status DC Lorazepam (Ativan Inj) 2 mg Q1H PRN IV PUSH CIWA 15-20 Last administered on 02/25 21:37; Start 02/25/17 at 09:15; Stop 02/28/17 at 07:44; Status DC Lorazepam (Ativan Inj) 2 mg Q15M PRN IV PUSH CIWA > 20 Last administered on 02/26 06:25; Start 02/25/17 at 09:15; Stop 02/28/17 at 07:44; Status DC Multivitamins (Theragran) 1 tab DAILY PO Last administered on 04/21/17 08:08; Start 02/26/17 at 09:00 Acetaminophen (Tylenol) 650 mg Q4H PRN PO FEVER Last administered on 03/07/17 04:47; Start 02/25/17 at 09:15; Stop 03/12/17 at 10:47; Status DC Lisinopril (Prinivil) 10 mg DAILY PO ; Start 02/26/17 at 09:00; Stop 03/08/17 at 21:09; Status DC Enoxaparin Sodium (Lovenox Inj) 40 mg Q24H SQ Last administered on 03/07/17 10 :00; Start 02/25/17 at 10:00; Stop 03/10/17 at 12:17; Status DC Vancomycin HCl 1500 mg/Sodium Chloride 515 ml @ 257.5 mls/ hr Q12H IV Last administered on 02/26/17 09:42; Start 02/25/17 at 22:00; Stop 02/26/17 at 12:06; Status DC Miscellaneous Information SPECIFIC LAB TO BE BIA... ONCE ONCE .XX Last administered on 02/26/17 09:45; Start 02/26/17 at 09:45; Stop 02/26/17 at 09:46; Status DC Chlordiazepoxide (Librium) 25 mg Q8H PO ; Start 02/25/17 at 17:00; Stop 02/25/17 at 20:24; Status DC Gentamicin Sulfate 70 mg/ Sodium Chloride 101.75 ml @ 100 mls/ hr ONCE ONCE IV Last administered on 02/25/17 18:51; Start 02/25/17 at 18:30; Stop 02/25/17 at 19:31; Status DC Dexmedetomidine HCl 200 mcg/ Sodium Chloride 52 ml @ 0 mls/hr TITRATE IV Last administered on 02/27/17 13:55; Start 02/25/17 at 17:30; Stop 03/09/17 at 23:34; Status DC Acetaminophen (Ofirmev Inj) 650 mg Q6H PRN IV TEMP >101 Last administered on 20:12; Start 02/25/17 at 21:00; Stop 04/17/17 at 08:33; Status DC Iohexol (Omnipaque 350 Inj) 75 ml STK-MED ONCE IV Last administered on 21:15; Start 02/25/17 at 21:15; Stop 02/25/17 at 21:16; Status DC Potassium Chloride 100 ml @ 50 mls/hr Q2H PRN IV For Potassium 2.8 - 3.2 mEq/L ; Start 02/25/17 at 22:45; Stop 03/01/17 at 23:53; Status DC Potassium Chloride 100 ml @ 50 mls/hr Q2H PRN IV For Potassium 2.8 - 3.2 mEq/ L Last administered on 02/28/17t 12:32; Start 02/25/17 at 22:45; Stop 03/01/17 at 23:53; Status DC Potassium Bicarb/ Potassium Chloride (K-Lyte Cl Eff) 50 meq UNSCH PRN PO For Potassium 3.3 - 3.5 mEq/L; Start 02/25/17 at 22:45; Stop 03/01/17 at 23:53; Status DC Potassium Chloride 100 ml @ 25 mls/hr UNSCH PRN IV For Potassium 3.3 - 3.5 mEq /L; Start 02/25/17 at 22:45; Stop 03/01/17 at 23:53; Status DC Potassium Chloride 100 ml @ 50 mls/hr Q2H PRN IV For Potassium 3.3 - 3.5 mEq/ L Last administered on 02/28/17t 06:39; Start 02/25/17 at 22:45; Stop 03/01/17 at 23:53; Status DC Magnesium Sulfate 4 gm/Sodium Chloride 100 ml @ 50 mls/hr UNSCH PRN IV For Magnesium 0.9 - 1.1 mg/dL; Start 02/25/17 at 22:45; Stop 03/01/17 at 23:53; Status DC Magnesium Oxide (Mag-Ox) 800 mg UNSCH PRN PO For Magnesium 1.2 - 1.6 mg/dL; Start 02/25/17 at 22:45; Stop 03/01/17 at 23:53; Status DC Magnesium Sulfate 2 gm/Sodium Chloride 100 ml @ 50 mls/hr UNSCH PRN IV For Magnesium 1.2 - 1.6 mg/dL; Start 02/25/17 at 22:45; Stop 03/01/17 at 23:53; Status DC Potassium Phosphate (K-Phos) 2,000 mg Q4H PRN PO For Phosphorus < 2.5 mg/dL; Start 02/25/17 at 22:45; Stop 03/01/17 at 23:53; Status DC Sodium Phosphate 30 mmol/Sodium Chloride 250 ml @ 42 mls/hr UNSCH PRN IV For Phosphorus < 2.5 mg/dL Last administered on 02/26/17 23:19; Start 02/25/17 at 22: 45; Stop 03/01/17 at 23:53; Status DC Potassium Phosphate (K-Phos) 2,000 mg UNSCH PRN PO/TUBE SEE LABEL COMMENTS; Start 02/25/17 at 22:45; Stop 03/01/17 at 23:53; Status DC Potassium Phosphate 30 mmol/ Sodium Chloride 260 ml @ 42 mls/hr UNSCH PRN IV SEE LABEL COMMENTS; Start 02/25/17 at 22:45; Stop 03/01/17 at 23:53; Status DC Labetalol HCl (Trandate Inj) 10 mg Q6H PRN IV PUSH SBP >165; Start 02/25/17 at 23:15 Pantoprazole Sodium (Protonix Inj) 40 mg Q24H IV PUSH Last administered on 04/20 21:26; Start 02/26/17 at 00:00 Miscellaneous Information Patient in critical care unit? Ass... [id number] .XX ; Start 02/26/17 at 07:15 Mupirocin (Bactroban Nasal 2% Oint) 1 applic BID NASAL Last administered on 08:08; Start 02/26/17 at 09:00 Chlorhexidine Gluconate (Chlorhexidine 2% Cloth) 3 pack DAILY@04 TOPICAL Last administered on 03/03/17 04:00; Start 02/27/17 at 04:00; Stop 03/03/17 at 04:01; Status DC Chlorhexidine Gluconate (Chlorhexidine 2% Cloth) 3 pack UNSCH PRN TOPICAL HYGIENIC CARE; Start 02/26/17 at 07:15; Stop 03/03/17 at 07:07; Status DC Lidocaine HCl (Xylocaine 2% Inj) 50 ml STK-MED ONCE .ROUTE ; Start 02/26/17 at 09 :35; Stop 02/26/17 at 09:36; Status DC Bupivacaine HCl (Marcaine Pf 0.5% Inj) 60 ml STK-MED ONCE .ROUTE ; Start at 09:35; Stop 02/26/17 at 09:36; Status DC Mupirocin (Bactroban 2% Oint) 22 applic STK-MED ONCE .ROUTE ; Start 02/26/17 at 09:35; Stop 02/26/17 at 09:36; Status DC Vancomycin HCl 1250 mg/Sodium Chloride 262.5 ml @ 250 mls/hr Q12H IV Last administered on 03/02/17 09:33; Start 02/26/17 at 22:00; Stop 03/02/17 at 13:23; Status DC Miscellaneous Information SPECIFIC LAB TO BE BIA... ONCE ONCE .XX Last administered on 02/27/17 22:46; Start 02/27/17 at 21:45; Stop 02/27/17 at 21:46; Status DC Neomycin/Polymyxin (Neosporin G.u. Irr) 3 ml STK-MED ONCE TOPICAL Last administered on 02/26/17 13:06; Start 02/26/17 at 13:06; Stop 02/26/17 at 16:26; Status DC Neomycin/Polymyxin (Neosporin G.u. Irr) 4 ml STK-MED ONCE TOPICAL Last administered on 02/26/17 15:47; Start 02/26/17 at 15:47; Stop 02/26/17 at 16:26; Status DC Fentanyl Citrate (fentaNYL INJ) 250 mcg STK-MED ONCE .ROUTE ; Start 02/26/17 at 18:16; Stop 02/26/17 at 18:17; Status DC Fentanyl Citrate (fentaNYL INJ) 100 mcg STK-MED ONCE .ROUTE ; Start 02/26/17 at 18:16; Stop 02/26/17 at 18:17; Status DC Miscellaneous Information ALL NURSING DEPARTME... UNSCH PRN .XX SEE LABEL COMMENTS; Start 02/26/17 at 17:57; Stop 02/27/17 at 17:56; Status DC Clonidine (Catapres) 0.3 mg Q8HR PO Last administered on 04/10/17 12:33; Start 02/26/17 at 22:11; Stop 04/10/17 at 12:52; Status DC Diazepam (Valium) 5 mg Taper DAILY PO Last administered on 03/06/17 09:49; Start 02/26/17 at 22:15; Stop 03/06/17 at 22:14; Status DC Water (Free Water) 200 ml Q8HR G-TUBE Last administered on 02/27/17 22:31; Start 02/27/17 at 06:55; Stop 02/28/17 at 07:41; Status DC Rifampin 300 mg/ Sodium Chloride 100 ml @ 100 mls/hr Q12H IV Last administered on 03/02/17 14:41; Start 02/27/17 at 15:00; Stop 03/02/17 at 16:41; Status DC Oxycodone HCl (Roxicodone) 5 mg Q4H PRN PO pain 1-5 Last administered on 09:26; Start 02/28/17 at 07:45; Stop 04/09/17 at 17:08; Status DC Hydromorphone HCl (Dilaudid Pf Inj) 0.5 mg Q3H PRN IV PUSH pain 6-10 or not taking po Last administered on 04/09/17 16:51; Start 02/28/17 at 07:45; Stop at 17:08; Status DC Water (Free Water) 300 ml Q4HR G-TUBE Last administered on 03/02/17 20:00; Start 02/28/17 at 08:00; Stop 03/02/17 at 23:07; Status DC Vancomycin HCl (Vancomycin Inj) 1,000 mg STK-MED ONCE .ROUTE Last administered on 02/28/17 09:01; Start 02/28/17 at 09:01; Stop 02/28/17 at 09:02; Status DC Vancomycin HCl (Vancomycin Inj) 1,000 mg STK-MED ONCE .ROUTE Last administered on 02/28/17 09:33; Start 02/28/17 at 09:33; Stop 02/28/17 at 09:34; Status DC Vancomycin HCl (Vancomycin Inj) 1,000 mg STK-MED ONCE .ROUTE Last administered on 02/28/17 09:36; Start 02/28/17 at 09:33; Stop 02/28/17 at 09:34; Status DC Daptomycin 450 mg/ Sodium Chloride 100 ml @ 200 mls/hr Q24H IV Last administered on 03/05/17 13:41; Start 02/28/17 at 12:00; Stop 03/05/17 at 18:00 ; Status DC Vancomycin HCl (Vancomycin Inj) 1,000 mg STK-MED ONCE .ROUTE Last administered on 02/28/17 10:45; Start 02/28/17 at 10:42; Stop 02/28/17 at 10:43; Status DC Vancomycin HCl (Vancomycin Inj) 500 mg STK-MED ONCE .ROUTE Last administered on 02/28/17 10:45; Start 02/28/17 at 10:42; Stop 02/28/17 at 10:43; Status DC Fentanyl Citrate (fentaNYL INJ) 250 mcg STK-MED ONCE .ROUTE ; Start 02/28/17 at 11:48; Stop 02/28/17 at 11:49; Status DC Miscellaneous Information ALL NURSING DEPARTME... UNSCH PRN .XX SEE LABEL COMMENTS; Start 02/28/17 at 11:33; Stop 03/01/17 at 11:32; Status DC Miscellaneous Information SPECIFIC LAB TO BE BIA... ONCE ONCE .XX ; Start 03/04 at 09:45; Stop 03/04/17 at 09:46; Status Cancel Sodium Chloride 1,000 ml @ 999 mls/hr BOLUS ONCE IV Last administered on 13:28; Start 03/02/17 at 13:15; Stop 03/02/17 at 14:15; Status DC Sodium Chloride 1,000 ml @ 125 mls/hr Q8H IV Last administered on 03/02/17 14: 18; Start 03/02/17 at 13:15; Stop 03/02/17 at 14:30; Status DC Rifampin (Rifampin) 300 mg Q12HR PO Last administered on 03/23/17 08:42; Start 03/02/17 at 21:00; Stop 03/23/17 at 18:40; Status DC Potassium Chloride 20 meq/ Sodium Chloride 38.5 meq/Sterile Water 1,010 ml @ 55 mls/hr [id number] IV Last administered on 03/09/17 22:51; Start 03/03/17 at 11: 00; Stop 03/09/17 at 23:36; Status DC Furosemide (Lasix Inj) 20 mg ONCE ONCE IV PUSH Last administered on 03/03/17 10:19; Start 03/03/17 at 09:30; Stop 03/03/17 at 09:43; Status DC Carvedilol (Coreg) 6.25 mg Q12HR PO Last administered on 04/09/17 08:40; Start 03/03/17 at 21:00; Stop 04/10/17 at 03:26; Status DC Vancomycin HCl (Vancomycin Inj) 1,000 mg STK-MED ONCE .ROUTE Last administered on 03/04/17 15:52; Start 03/04/17 at 15:10; Stop 03/04/17 at 15:11; Status DC Fentanyl Citrate (fentaNYL INJ) 100 mcg STK-MED ONCE .ROUTE ; Start 03/04/17 at 16:38; Stop 03/04/17 at 16:39; Status DC Fentanyl Citrate (fentaNYL INJ) 250 mcg STK-MED ONCE .ROUTE ; Start 03/04/17 at 16:38; Stop 03/04/17 at 16:39; Status DC Vancomycin HCl (Vancomycin Inj) 1,000 mg STK-MED ONCE .ROUTE Last administered on 03/04/17 16:52; Start 03/04/17 at 16:59; Stop 03/04/17 at 17:00; Status DC Fentanyl Citrate (fentaNYL INJ) 100 mcg STK-MED ONCE .ROUTE ; Start 03/04/17 at 18:24; Stop 03/04/17 at 18:25; Status DC Fentanyl Citrate (fentaNYL INJ) 250 mcg STK-MED ONCE .ROUTE ; Start 03/04/17 at 18:25; Stop 03/04/17 at 18:26; Status DC Miscellaneous Information ALL NURSING DEPARTME... UNSCH PRN .XX SEE LABEL COMMENTS; Start 03/04/17 at 19:15; Stop 03/05/17 at 19:14; Status DC Daptomycin 550 mg/ Sodium Chloride 100 ml @ 200 mls/hr Q24H IV Last administered on 04/20/17 12:51; Start 03/06/17 at 12:00 Bisacodyl (Dulcolax Supp) 10 mg DAILY PRN RECTAL SEVERE CONSITIPATION; Start at 21:00 Lactulose (Lactulose Liq) 30 ml DAILY PRN NG SEVERE CONSITIPATION Last administered on 03/07/17 18:45; Start 03/06/17 at 21:00 Docusate Sodium (Colace Liq) 100 mg Q12HR PO Last administered on 03/09/17 09: 30; Start 03/06/17 at 21:15; Status Future Hold Sodium Chloride 250 ml @ 15 mls/hr ONCE ONCE IV Last administered on 00:27; Start 03/07/17 at 19:00; Stop 03/08/17 at 12:06; Status DC Furosemide (Lasix Inj) 20 mg ONCE ONCE IV Last administered on 03/08/17 03:49 ; Start 03/07/17 at 19:00; Stop 03/07/17 at 19:01; Status DC Polyethylene Glycol/ Electrolytes (Colyte Liq) 4,000 ml ONCE ONCE PO ; Start at 11:00; Stop 03/08/17 at 11:01; Status Cancel Mupirocin (Bactroban 2% Oint) 22 applic STK-MED ONCE .ROUTE ; Start 03/08/17 at 12:10; Stop 03/08/17 at 12:11; Status DC Lidocaine HCl (Xylocaine 2% Inj) 50 ml STK-MED ONCE .ROUTE ; Start 03/08/17 at 12:13; Stop 03/08/17 at 12:14; Status DC Bupivacaine HCl (Marcaine Pf 0.5% Inj) 30 ml STK-MED ONCE .ROUTE ; Start at 12:17; Stop 03/08/17 at 12:18; Status DC Famotidine (Pepcid Inj) 20 mg STK-MED ONCE .ROUTE ; Start 03/08/17 at 13:17; Stop 03/08/17 at 13:18; Status DC Vancomycin HCl (Vancomycin Inj) 1,000 mg STK-MED ONCE .ROUTE Last administered on 03/08/17 14:35; Start 03/08/17 at 14:07; Stop 03/08/17 at 14:08; Status DC Sodium Chloride (Sodium Chloride 0.9% Inj) 20 ml STK-MED ONCE .ROUTE ; Start at 14:07; Stop 03/08/17 at 14:08; Status DC Vancomycin HCl (Vancomycin Inj) 1,000 mg STK-MED ONCE .ROUTE ; Start 03/08/17 at 14:42; Stop 03/08/17 at 14:43; Status DC Sodium Chloride (Sodium Chloride 0.9% Inj) 20 ml STK-MED ONCE .ROUTE ; Start at 14:42; Stop 03/08/17 at 14:43; Status DC Fentanyl Citrate (fentaNYL INJ) 500 mcg STK-MED ONCE .ROUTE ; Start 03/08/17 at 15:51; Stop 03/08/17 at 15:52; Status DC Miscellaneous Information ALL NURSING DEPARTME... UNSCH PRN .XX SEE LABEL COMMENTS; Start 03/08/17 at 15:40; Stop 03/09/17 at 15:39; Status DC Polyethylene Glycol/ Electrolytes (Colyte Liq) 4,000 ml ONCE ONCE NG Last administered on 03/08/17 22:42; Start 03/08/17 at 20:00; Stop 03/08/17 at 20:01 ; Status DC Lisinopril (Prinivil) 2.5 mg DAILY PO Last administered on 04/21/17 08:08; Start 03/09/17 at 09:00 Miscellaneous (Pill Splitter) 1 ea UNSCH PRN OTHER SEE LABEL COMMENTS; Start at 21:15 Dextrose 1,000 ml @ 84 mls/hr [id number] IV Last administered on 03/11/17 21:24 ; Start 03/09/17 at 23:45; Stop 03/11/17 at 23:38; Status DC Enoxaparin Sodium (Lovenox Inj) 40 mg Q24H SQ Last administered on 04/20/17 12 :52; Start 03/10/17 at 13:00; Status Future hold Bupivacaine HCl (Marcaine Pf 0.5% Inj) 30 ml STK-MED ONCE .ROUTE ; Start at 14:50; Stop 03/10/17 at 14:51; Status DC Lidocaine HCl (Xylocaine 2% Inj) 50 ml STK-MED ONCE .ROUTE ; Start 03/10/17 at 14:51; Stop 03/10/17 at 14:52; Status DC Bacitracin (Baciguent Oint) 15 applic STK-MED ONCE .ROUTE Last administered on 03/10/17 16:43; Start 03/10/17 at 14:51; Stop 03/10/17 at 14:52; Status DC Vancomycin HCl (Vancomycin Inj) 1,000 mg STK-MED ONCE .ROUTE Last administered on 03/10/17 15:49; Start 03/10/17 at 15:45; Stop 03/10/17 at 15:46; Status DC Sodium Chloride (Sodium Chloride 0.9% Inj) 20 ml STK-MED ONCE .ROUTE ; Start at 15:45; Stop 03/10/17 at 15:46; Status DC Neomycin/Polymyxin (Neosporin G.u. Irr) 2 ml STK-MED ONCE TOPICAL Last administered on 03/10/17 15:49; Start 03/10/17 at 15:49; Stop 03/10/17 at 15:59 ; Status DC Bacitracin (Baciguent Oint) 30 applic STK-MED ONCE .ROUTE Last administered on 03/10/17 16:44; Start 03/10/17 at 16:41; Stop 03/10/17 at 16:42; Status DC Hydromorphone HCl (Dilaudid Pf Inj) 2 mg STK-MED ONCE .ROUTE ; Start 03/10/17 at 16:47; Stop 03/10/17 at 16:48; Status DC Fentanyl Citrate (fentaNYL INJ) 250 mcg STK-MED ONCE .ROUTE ; Start 03/10/17 at 17:22; Stop 03/10/17 at 17:23; Status DC Morphine Sulfate (*morphine INJ PERIprocedure ONLY) 8 mg STK-MED ONCE .ROUTE Last administered on 03/10/17 18:12; Start 03/10/17 at 18:12; Stop 03/10/17 at 18:13; Status DC Miscellaneous Information ALL NURSING DEPARTME... UNSCH PRN .XX SEE LABEL COMMENTS; Start 03/10/17 at 14:30; Stop 03/11/17 at 14:29; Status DC Propofol (Diprivan 200 Mg/20 ml Inj) 200 mg STK-MED ONCE IV PUSH ; Start at 15:29; Stop 03/11/17 at 15:47; Status DC Oxybenzone/ Padimate O/ Dimethicone (Blistex Lip [place]) 4.25 applic STK-MED ONCE TOPICAL Last administered on 03/11/17 16:02; Start 03/11/17 at 16:02; Stop at 16:03; Status DC Miscellaneous Information ALL NURSING DEPARTME... UNSCH PRN .XX SEE LABEL COMMENTS; Start 03/11/17 at 16:00; Stop 03/12/17 at 15:59; Status DC Succinylcholine Chloride (Quelicin Inj) 200 mg STK-MED ONCE IV PUSH ; Start at 15:27; Stop 03/12/17 at 08:59; Status DC Sodium Chloride 250 ml @ 15 mls/hr ONCE ONCE IV Last administered on 10:15; Start 03/12/17 at 10:15; Stop 03/13/17 at 02:54; Status DC Acetaminophen (Tylenol) 650 mg Q4H PRN PO SEE LABEL COMMENTS; Start 03/12/17 at 10:15; Stop 03/12/17 at 14:16; Status DC Diphenhydramine HCl (Benadryl) 25 mg Q4H PRN PO SEE LABEL COMMENTS; Start 03/12 at 10:15; Stop 03/12/17 at 14:16; Status DC Potassium Chloride 100 ml @ 50 mls/hr Q2H IV Last administered on 03/12/17 13 :25; Start 03/12/17 at 11:00; Stop 03/12/17 at 14:59; Status DC Lidocaine HCl (Xylocaine 2% Inj) 50 ml STK-MED ONCE .ROUTE ; Start 03/12/17 at 13:04; Stop 03/12/17 at 13:05; Status DC Mupirocin (Bactroban 2% Oint) 22 applic STK-MED ONCE .ROUTE ; Start 03/12/17 at 13:06; Stop 03/12/17 at 13:07; Status DC Hydromorphone HCl (Dilaudid Pf Inj) 2 mg STK-MED ONCE .ROUTE ; Start 03/12/17 at 15:18; Stop 03/12/17 at 15:19; Status DC Acetaminophen (Ofirmev Inj) 1,000 mg STK-MED ONCE IV ; Start 03/12/17 at 15:18; Stop 03/12/17 at 15:19; Status DC Vancomycin HCl (Vancomycin Inj) 1,000 mg STK-MED ONCE .ROUTE Last administered on 03/12/17 15:54; Start 03/12/17 at 15:57; Stop 03/12/17 at 15:58; Status DC Neomycin/Polymyxin (Neosporin G.u. Irr) 2 ml STK-MED ONCE TOPICAL Last administered on 03/12/17 15:54; Start 03/12/17 at 15:54; Stop 03/12/17 at 16:15 ; Status DC Fentanyl Citrate (fentaNYL INJ) 250 mcg STK-MED ONCE .ROUTE ; Start 03/12/17 at 17:04; Stop 03/12/17 at 17:05; Status DC Miscellaneous Information ALL NURSING DEPARTME... UNSCH PRN .XX SEE LABEL COMMENTS; Start 03/12/17 at 17:30; Stop 03/13/17 at 17:29; Status DC Morphine Sulfate (*morphine INJ PERIprocedure ONLY) 8 mg STK-MED ONCE .ROUTE Last administered on 03/12/17 17:33; Start 03/12/17 at 17:33; Stop 03/12/17 at 17:34; Status DC Lidocaine HCl (Xylocaine 1% Inj) 10 ml ONCE@0700 ONCE OTHER ; Start 03/13/17 at 07:00; Stop 03/13/17 at 07:01; Status DC Potassium Chloride/Sodium Chloride 1,000 ml @ 75 mls/hr [id number] IV Last administered on 04/07/17 10:54; Start 03/13/17 at 11:30; Stop 04/07/17 at 13:42 ; Status DC Polyethylene Glycol/ Electrolytes (Colyte Liq) 4,000 ml ONCE ONCE PEG Last administered on 03/14/17 17:13; Start 03/14/17 at 16:00; Stop 03/14/17 at 16:01 ; Status DC Sodium Chloride 250 ml @ 15 mls/hr ONCE ONCE IV Last administered on 21:30; Start 03/13/17 at 20:00; Stop 03/14/17 at 12:39; Status DC Polyethylene Glycol/ Electrolytes (Colyte Liq) 4,000 ml ONCE ONCE PO Last administered on 03/15/17 17:19; Start 03/15/17 at 16:45; Stop 03/15/17 at 16:48 ; Status DC Propofol (Diprivan 200 Mg/20 ml Inj) 180 mg ONCE ONCE IV Last administered on 03/15/17 16:45; Start 03/15/17 at 16:43; Stop 03/15/17 at 16:45; Status DC Sodium Biphosphate/ Sodium Phosphate (Fleets Enema (Adult)) 133 ml ONCE ONCE RECTAL Last administered on 03/16/17 14:45; Start 03/16/17 at 14:15; Stop at 14:21; Status DC Sodium Biphosphate/ Sodium Phosphate (Fleets Enema (Adult)) 133 ml ONCE ONCE RECTAL Last administered on 03/17/17 09:49; Start 03/17/17 at 08:00; Stop at 08:01; Status DC Propofol (Diprivan 200 Mg/20 ml Inj) 100 mg ONCE ONCE IV PUSH ; Start at 15:00; Stop 03/16/17 at 15:01; Status DC Midazolam HCl (Versed Inj) 2 mg STK-MED ONCE .ROUTE ; Start 03/16/17 at 15:34; Stop 03/16/17 at 15:35; Status DC Vancomycin HCl (Vancomycin Inj) 1,000 mg STK-MED ONCE .ROUTE Last administered on 03/18/17 18:58; Start 03/18/17 at 18:15; Stop 03/18/17 at 18:16; Status DC Fentanyl Citrate (fentaNYL INJ) 200 mcg STK-MED ONCE .ROUTE ; Start 03/18/17 at 19:50; Stop 03/18/17 at 19:51; Status DC Methocarbamol (Robaxin) 500 mg Q8HR PO Last administered on 04/14/17 05:25; Start 03/19/17 at 14:00; Stop 04/14/17 at 12:13; Status DC Acetaminophen 100 ml @ As Directed STK-MED ONCE IV ; Start 03/24/17 at 09:21; Stop 03/24/17 at 09:22; Status DC Midazolam HCl (Versed Inj) 2 mg STK-MED ONCE .ROUTE ; Start 03/24/17 at 09:21; Stop 03/24/17 at 09:22; Status DC Fentanyl Citrate (fentaNYL INJ) 100 mcg STK-MED ONCE .ROUTE ; Start 03/24/17 at 09:21; Stop 03/24/17 at 09:22; Status DC Fentanyl Citrate (fentaNYL INJ) 100 mcg STK-MED ONCE .ROUTE ; Start 03/24/17 at 09:21; Stop 03/24/17 at 09:22; Status DC Hydromorphone HCl (*DILAUDID PF INJ PERIprocedural ONLY) 1 mg STK-MED ONCE .ROUTE Last administered on 03/24/17 14:53; Start 03/24/17 at 14:53; Stop at 14:54; Status DC Meperidine HCl (*DEMEROL INJ PERIprocedural ONLY) 25 mg STK-MED ONCE .ROUTE Last administered on 03/24/17 15:01; Start 03/24/17 at 15:01; Stop 03/24/17 at 15:02; Status DC Fentanyl Citrate (fentaNYL INJ) 400 mcg STK-MED ONCE .ROUTE ; Start 03/24/17 at 15:01; Stop 03/24/17 at 15:02; Status DC Miscellaneous Information ALL NURSING DEPARTME... UNSCH PRN .XX SEE LABEL COMMENTS; Start 03/24/17 at 14:52; Stop 03/25/17 at 14:51; Status DC Polyethylene Glycol (Miralax) 17 gm DAILY PO ; Start 03/24/17 at 16:30; Status Cancel Acetaminophen (Tylenol) 650 mg Q4H PRN PO fever Last administered on 03/25/17 10:02; Start 03/25/17 at 10:00 Piperacillin Sod/ Tazobactam Sod 100 ml @ 200 mls/hr Q8H IV Last administered on 03/29/17 12:36; Start 03/25/17 at 20:00; Stop 03/29/17 at 14:34; Status DC Furosemide (Lasix Inj) 10 mg ONCE ONCE IV PUSH Last administered on 03/26/17 13:47; Start 03/26/17 at 13:30; Stop 03/26/17 at 13:34; Status DC Furosemide (Lasix Inj) 10 mg UNSCH X1 IV PUSH Last administered on 03/27/17 01 :31; Start 03/26/17 at 17:15; Stop 03/26/17 at 23:59; Status DC Levothyroxine Sodium (Synthroid) 50 mcg DAILY@0600 PO Last administered on 04/21 04:23; Start 03/30/17 at 06:00 Levothyroxine Sodium (Synthroid) 50 mcg ONCE ONCE PO Last administered on 9/4/ 17at 12:55; Start 03/29/17 at 12:00; Stop 03/29/17 at 12:02; Status DC Levofloxacin (Levaquin) 500 mg DAILY PO Last administered on 04/07/17t 08:46; Start 03/29/17 at 14:45; Stop 04/07/17 at 14:44; Status DC Propofol (Diprivan 200 Mg/20 ml Inj) 200 mg STK-MED ONCE IV ; Start 02/26/17 at 12:00; Stop 03/30/17 at 13:17; Status DC Neostigmine Methylsulfate (Prostigmin Inj) 3 mg STK-MED ONCE IV ; Start 02/26/17 at 12:00; Stop 03/30/17 at 13:17; Status DC Phenylephrine HCl (Neosynephrine/ NS 1000 Mcg/10ml Syr) 1,000 mcg STK-MED ONCE IV ; Start 02/26/17 at 12:00; Stop 03/30/17 at 13:17; Status DC Lactated Ringer's 2,000 ml @ As Directed STK-MED ONCE IV ; Start 02/26/17 at 12: 00; Stop 03/30/17 at 13:17; Status DC Propofol (Diprivan 200 Mg/20 ml Inj) 200 mg STK-MED ONCE IV ; Start 02/28/17 at 12:00; Stop 03/30/17 at 13:46; Status DC Neostigmine Methylsulfate (Prostigmin Inj) 3 mg STK-MED ONCE IV ; Start 02/28/17 at 12:00; Stop 03/30/17 at 13:46; Status DC Lactated Ringer's 2,000 ml @ As Directed STK-MED ONCE IV ; Start 02/28/17 at 12: 00; Stop 03/30/17 at 13:46; Status DC Propofol (Diprivan 200 Mg/20 ml Inj) 400 mg STK-MED ONCE IV ; Start 03/04/17 at 12:00; Stop 03/30/17 at 14:07; Status DC Ephedrine Sulfate (ePHEDrine/NS 25 MG/5 ML SYR) 25 mg STK-MED ONCE IV ; Start at 12:00; Stop 03/30/17 at 14:07; Status DC Phenylephrine HCl (Neosynephrine/ NS 1000 Mcg/10ml Syr) 2,000 mcg STK-MED ONCE IV ; Start 03/04/17 at 12:00; Stop 03/30/17 at 14:08; Status DC Ondansetron HCl (Zofran Inj) 4 mg STK-MED ONCE IV PUSH ; Start 03/04/17 at 12:00 ; Stop 03/30/17 at 14:08; Status DC Propofol (Diprivan 200 Mg/20 ml Inj) 200 mg STK-MED ONCE IV ; Start 03/08/17 at 12:00; Stop 03/30/17 at 14:49; Status DC Ephedrine Sulfate (ePHEDrine/NS 25 MG/5 ML SYR) 50 mg STK-MED ONCE IV ; Start at 12:00; Stop 03/30/17 at 14:49; Status DC Neostigmine Methylsulfate (Prostigmin Inj) 4 mg STK-MED ONCE IV ; Start at 12:00; Stop 03/30/17 at 14:49; Status DC Phenylephrine HCl (Neosynephrine/ NS 1000 Mcg/10ml Syr) 1,000 mcg STK-MED ONCE IV ; Start 03/08/17 at 12:00; Stop 03/30/17 at 14:49; Status DC Ondansetron HCl (Zofran Inj) 4 mg STK-MED ONCE IV PUSH ; Start 03/08/17 at 12:00 ; Stop 03/30/17 at 14:49; Status DC Lactated Ringer's 1,000 ml @ As Directed STK-MED ONCE IV ; Start 03/08/17 at 12 :00; Stop 03/30/17 at 14:49; Status DC Propofol (Diprivan 200 Mg/20 ml Inj) 200 mg STK-MED ONCE IV ; Start 03/10/17 at 12:00; Stop 03/30/17 at 15:08; Status DC Ephedrine Sulfate (ePHEDrine/NS 25 MG/5 ML SYR) 25 mg STK-MED ONCE IV ; Start at 12:00; Stop 03/30/17 at 15:08; Status DC Neostigmine Methylsulfate (Prostigmin Inj) 3 mg STK-MED ONCE IV ; Start at 12:00; Stop 03/30/17 at 15:08; Status DC Phenylephrine HCl (Neosynephrine/ NS 1000 Mcg/10ml Syr) 2,000 mcg STK-MED ONCE IV ; Start 03/10/17 at 12:00; Stop 03/30/17 at 15:08; Status DC Ondansetron HCl (Zofran Inj) 4 mg STK-MED ONCE IV PUSH ; Start 03/10/17 at 12:00 ; Stop 03/30/17 at 15:08; Status DC Lactated Ringer's 1,000 ml @ As Directed STK-MED ONCE IV ; Start 03/10/17 at 12 :00; Stop 03/30/17 at 15:08; Status DC Sodium Chloride 1,000 ml @ As Directed STK-MED ONCE IV ; Start 03/10/17 at 12: 00; Stop 03/30/17 at 15:08; Status DC Propofol (Diprivan 200 Mg/20 ml Inj) 200 mg STK-MED ONCE IV ; Start 03/12/17 at 12:00; Stop 03/30/17 at 15:20; Status DC Ephedrine Sulfate (ePHEDrine/NS 25 MG/5 ML SYR) 25 mg STK-MED ONCE IV ; Start at 12:00; Stop 03/30/17 at 15:20; Status DC Phenylephrine HCl (Neosynephrine/ NS 1000 Mcg/10ml Syr) 1,000 mcg STK-MED ONCE IV ; Start 03/12/17 at 12:00; Stop 03/30/17 at 15:20; Status DC Ondansetron HCl (Zofran Inj) 4 mg STK-MED ONCE IV PUSH ; Start 03/12/17 at 12:00 ; Stop 03/30/17 at 15:20; Status DC Lactated Ringer's 1,000 ml @ As Directed STK-MED ONCE IV ; Start 03/12/17 at 12 :00; Stop 03/30/17 at 15:20; Status DC Propofol (Diprivan 200 Mg/20 ml Inj) 200 mg STK-MED ONCE IV ; Start 03/18/17 at 12:00; Stop 03/30/17 at 15:38; Status DC Ondansetron HCl (Zofran Inj) 4 mg STK-MED ONCE IV PUSH ; Start 03/18/17 at 12:00 ; Stop 03/30/17 at 15:38; Status DC Neostigmine Methylsulfate (Prostigmin Inj) 3 mg STK-MED ONCE IV ; Start at 12:00; Stop 03/30/17 at 15:38; Status DC Phenylephrine HCl (Neosynephrine/ NS 1000 Mcg/10ml Syr) 1,000 mcg STK-MED ONCE IV ; Start 03/18/17 at 12:00; Stop 03/30/17 at 15:38; Status DC Oxycodone/ Acetaminophen (Percocet 5-325 Mg) 1 tab Q4H PRN PO pain 3 to 5; Start 04/02/17 at 13:00; Stop 04/09/17 at 17:08; Status DC Oxycodone/ Acetaminophen (Percocet 10-325 Mg) 1 tab Q4H PRN PO pain 6-10 Last administered on 04/09/17 14:14; Start 04/02/17 at 13:00; Stop 04/09/17 at 17:08 ; Status DC Magnesium Sulfate/ Dextrose 100 ml @ 100 mls/hr Q1H IV Last administered on 16:15; Start 04/03/17 at 14:00; Stop 04/03/17 at 15:59; Status DC Sodium Chloride (Sodium Chloride) 1 gm TID PO Last administered on 04/07/17 13 :24; Start 04/04/17 at 14:00; Stop 04/07/17 at 13:45; Status DC Calcium Chloride 2 gm/Sodium Chloride 120 ml @ 120 mls/hr ONCE ONCE IV Last administered on 04/04/17 15:45; Start 04/04/17 at 14:00; Stop 04/04/17 at 14:59 ; Status DC Hydromorphone HCl (Dilaudid Pf Inj) 0.2 mg Q6H PRN IV PUSH breakthrough pain Last administered on 04/13/17 03:27; Start 04/09/17 at 17:15; Stop 04/13/17 at 03:27; Status DC Acetaminophen/ Hydrocodone Bitart ([place] 7.5-325 Mg) 1 tab Q4H PRN PO PAIN 6- 10 Last administered on 04/21/17 08:08; Start 04/09/17 at 17:15 Acetaminophen/ Hydrocodone Bitart ([place] 5-325 Mg) 1 tab Q4H PRN PO PAIN 3-5 Last administered on 04/18/17 01:26; Start 04/09/17 at 17:15 Tolvaptan (Samsca) 15 mg ONCE ONCE PO Last administered on 04/09/17 22:49; Start 04/09/17 at 19:30; Stop 04/09/17 at 19:32; Status DC Carvedilol (Coreg) 6.25 mg Q12HR PO Last administered on 04/21/17 08:08; Start 04/10/17 at 09:00 Clonidine (Catapres) 0.2 mg Q8H PO Last administered on 04/21/17 04:24; Start 04/10/17 at 20:00 Methocarbamol (Robaxin) 750 mg Q8HR PO Last administered on 04/21/17 04:24; Start 04/14/17 at 14:00 Sodium Chloride (Sodium Chloride) 1 gm TID PO Last administered on 04/21/17 08 :07; Start 04/18/17 at 13:00 Demeclocycline HCl (Declomycin) 300 mg Q12HR PO Last administered on 04/21/17 08:08; Start 04/18/17 at 11:45 Furosemide (Lasix Inj) 20 mg ONCE ONCE IV PUSH Last administered on 04/19/17 17:39; Start 04/19/17 at 17:15; Stop 04/19/17 at 17:16; Status DC A/P Assessment and Plan A/P Hyponatremia-slowly improving. continue fluid restriction. patient previously received Tolvaptan- started on sodium tablet and Demeclocycline. nephrology following. monitor the sodium level closely. 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 distant showering of emboli to other joints. MRSA bacteremia Right ankle hardware infection, s/p partial removal of hardware. Deeper hardware embedded. SP RIGHT BKA Bilateral UE hand abscess and tenosynovitis, septic arthritis s.p multiple debridements. continue Daptomycin till 04/24/17 per ID Continue pain control. ID following Multiple surgeries thus far: - podiatry Dr. Reyes/Dr. Gamez on 02/26, 02/28, 03/04 - hand surgeon Dr. Bullock on 02/26, 02/28, 03/04, 03/08, 03/10 -right BKA Anemia Follow CBC Status post blood transfusion Acute Toxic/Metabolic Encephalopathy secondary to Sepsis-improved. Acute Alcohol Withdrawal - improved Hypertension Continue clonidine and Coreg, cardiology initiated low dose lisinopril, monitor renal function Follow blood pressures Adjust as needed for control chronic Systolic CHF Scrotal edema EF of 40-45% with global hypokinesis found on 02/28/17 Continue beta amarjit Hypothyroidism continue synthroid THADDEUS mostly vanco induced - resolved Monitor renal function Avoid nephrotoxins Previous event was likely secondary to ATN Hepatitis C- f/u as outpatient. Standard precautions DVT Prophylaxis Lovenox Discharge Planning previously d/w the case management; has to stay inpatient while receiving IV antibiotics. Flaca Houser MD Apr 21, 2017 10:58
[2017-04-21] MEDS ORDERED: WHEEMIS3 (11:32)
[2017-04-21] MEDS: ENOXAPARIN SODIUM 40 MG/0.4 ML SYRINGE SQ SCH (12:26)
[2017-04-21] MEDS: DAPTOMYCIN IV SCH (12:26)
[2017-04-21] MEDS: SODIUM CHLORIDE 0.9% IV SCH (12:26)
--- NOTE | 2017-04-21 16:35 | HHI.NPPN ---
Subjective History of Present Illness 61 year old male with past medical history of hypertension, history of being homeless. He was admitted on February 25 with altered mental status and leukocytosis. I was called to see the patient because of elevated BUN and creatinine. Additional Remarks Patient is alert, no headache or dizziness. eating better. Objective Data Data Vital Signs Date Time Temp Pulse Resp B/P (MAP) Pulse Ox O2 Delivery O2 Flow Rate FiO2 04/21/17 12:00 98.1 64 18 111/52 (71) 96 04/21/17 08:20 Room Air 04/21/17 08:00 98.6 67 18 135/71 (92) 98 04/21/17 05:26 20 04/21/17 04:07 123/74 (90) 04/21/17 04:00 98.1 66 18 120/70 (87) 98 04/21/17 00:00 Room Air 04/20/17 20:00 Room Air 04/20/17 20:00 98.5 65 18 122/63 (82) 98 -: 04/20/17 0709 04/21/17 0738 Physical Exam General Appearance: No Acute Distress, Anxious Eyes Eye Exam: Pupils Equal Throat Throat Exam: Oral Mucosa [place] & Moist Neck Neck Exam: Neck Supple Pulmonary Resp Exam: Breath Sounds Equal, No Distress, Rhonchi, Decreased Bases Cardiology CV Exam: Regular, Normal Sinus Rhythm Gastrointestinal/Abdomen GI Exam: Soft, Non-Tender, Bowel Sounds Present Extremeties Extremities Exam: Trace Edema Neurologic Neuro Exam: Alert, Awake Assessment/Plan Assessment Summary: THADDEUS/Acute Renal Failure Problem List: (1) Encephalopathy ICD Codes: G93.40 - Encephalopathy, unspecified Status: Acute (2) Essential hypertension ICD Codes: I10 - Essential (primary) hypertension Status: Acute (3) Hepatitis C, chronic ICD Codes: B18.2 - Chronic viral hepatitis C Status: Chronic (4) Abscess of right hand including fingers ICD Codes: L02.511 - Cutaneous abscess of right hand Status: Chronic (5) Abscess of left hand including fingers ICD Codes: L02.512 - Cutaneous abscess of left hand Status: Chronic (6) Alcoholism ICD Codes: F10.20 - Alcohol dependence, uncomplicated Status: Chronic (7) CHF (congestive heart failure) ICD Codes: I50.9 - Heart failure, unspecified Status: Acute (8) Sepsis ICD Codes: A41.9 - Sepsis, unspecified organism Status: Acute (9) ARF (acute renal failure) ICD Codes: N17.9 - Acute kidney failure, unspecified Status: Acute Plan Patient has Acute kidney injury and Creatinine now normalized. Na. improved after given one dose of Samsca on 04/09. Now gradually decreasing Na. and it is 124. Has elevated urine Osmolality in past, possible SIADH. Clinically euvolemic. Need to continue fluid restriction. On NaCl, and Declomycin. Since Na. is slowly improving, will hold Samsca again. Problem Qualifiers (1) Sepsis: Diane Barker MD Apr 21, 2017 16:34
[2017-04-21] MEDS: LORazepam 1 MG TAB PO PRN (20:42)
[2017-04-22] MEDS: PANTOPRAZOLE SODIUM 40 MG VIAL IV PUSH SCH (00:38)
[2017-04-22] MEDS: ACETAMINOPHEN/HYDROcodone 325 MG/7.5 MG TAB PO PRN ×5 (00:42→20:37)
[2017-04-22] MEDS: cloNIDine HCL 0.2 MG TAB PO SCH ×3 (04:45→20:37)
[2017-04-22 05:50] VITALS: BP 137/66; PULSE 64; RESP 16; TEMP 98; O2SAT 98
[2017-04-22] MEDS: LEVOTHYROXINE SODIUM 50 MCG TAB PO SCH (06:12)
[2017-04-22] MEDS: METHOCARBAMOL 500 MG TAB PO SCH ×3 (06:12→20:38)
[2017-04-22 08:00] VITALS: BP 138/72; PULSE 68; RESP 16; TEMP 98.4; O2SAT 98
[2017-04-22] MEDS: MULTIVITAMIN TAB PO SCH (09:21)
[2017-04-22] MEDS: THIAMINE HCL 100 MG TAB PO SCH (09:21)
[2017-04-22] MEDS: SODIUM CHLORIDE 1 GRAM TAB PO SCH ×3 (09:21→17:14)
[2017-04-22] MEDS: DEMECLOCYCLINE HCL 150 MG TAB PO SCH ×2 (09:21→20:37)
[2017-04-22] MEDS: CARVEDILOL 6.25 MG TAB PO SCH ×2 (09:21→20:38)
[2017-04-22] MEDS: LISINOPRIL 5 MG TAB PO SCH (09:21)
[2017-04-22] MEDS: MUPIROCIN 2% OINT 1 APPLIC/GM SYR NASAL SCH ×2 (09:22→20:41)
[2017-04-22] MEDS: LORazepam 1 MG TAB PO PRN ×3 (09:29→20:37)
--- NOTE | 2017-04-22 10:47 | HHI.PR ---
Subjective Remarks in no distress. has some back spasm. no fever. complaining of some itching and a rash on right axilla. Objective Vitals Vital Signs Date Time Temp Pulse Resp B/P (MAP) Pulse Ox O2 Delivery O2 Flow Rate FiO2 04/22/17 09:32 Room Air 04/22/17 08:00 98.4 68 16 138/72 (94) 98 04/22/17 05:50 98.0 64 16 137/66 (89) 98 04/21/17 23:55 98.2 73 16 127/74 (91) 100 04/21/17 20:27 98.7 74 16 144/73 (96) 99 04/21/17 20:00 Room Air 04/21/17 16:00 98.4 65 18 131/64 (86) 97 04/21/17 12:00 98.1 64 18 111/52 (71) 96 I/O 04/21/17 04/21/17 04/21/17 04/22/17 04/22/17 04/22/17 07:00 15:00 23:00 07:00 15:00 23:00 Intake Total 720 ml 720 ml Output Total 700 ml 800 ml 800 ml Balance -700 ml -80 ml -80 ml Intake Oral 720 ml 720 ml Output Urine Total 700 ml 800 ml 800 ml Stool Total 0 ml # Bowel Movements 0 Result Diagram: 04/20/17 0709 04/21/17 0738 Imaging Last Impressions Chest X-Ray 03/29/17 0000 Signed Impressions: Service Date/Time: Wednesday, March 29, 2017 12:17 - CONCLUSION: Stable chest. Isaac Stevenson MD FACR Tumor Localization 03/22/17 0000 Signed Impressions: Service Date/Time: Wednesday, March 22, 2017 13:03 - CONCLUSION: Nondiagnostic examination secondary to patient refusal Harry Lucio MD Abdomen X-Ray 03/08/17 0000 Signed Impressions: Service Date/Time: Wednesday, March 08, 2017 10:30 - CONCLUSION: Nonspecific, negative for obstruction or ileus. Isaac Stevenson MD FACR Lower Extremity CT 03/01/17 0000 Signed Impressions: Service Date/Time: Wednesday, March 01, 2017 11:12 - CONCLUSION: 1. No evidence of organized fluid collections to suggest an abscess. 2. Extensive soft tissue swelling surrounding the ankle and extending to the forefoot especially along the lateral aspect. 3. No erosive or destructive bone changes. 4. Bone defects compatible with previous excision device. Blake Rider MD Ankle X-Ray 02/26/17 0000 Signed Impressions: Service Date/Time: Sunday, February 26, 2017 17:15 - CONCLUSION: I see no retained surgical instruments. Isaac Stevenson MD FACR Upper Extremity Ultrasound 02/25/17 1734 Signed Impressions: Service Date/Time: February 17:54 - CONCLUSION: There is a thin fluid collection within the focal area of soft tissue swelling 2nd digit. Oscar Cassidy MD Hand X-Ray 02/25/17 0000 Signed Impressions: Service Date/Time: February 18:59 - CONCLUSION: No gross bony abnormality. Oscar Cassidy MD Lower Extremity Ultrasound 02/24/17 0000 Signed Impressions: Service Date/Time: Friday, February 24, 2017 13:41 - CONCLUSION: Negative for deep venous thrombosis. Isaac Stevenson MD FACR Head CT 02/24/17 0000 Signed Impressions: Service Date/Time: Friday, February 24, 2017 16:08 - CONCLUSION: 1. No acute intracranial abnormality. 2. Probable large mucocele in the sphenoid sinus. Ty Hankins MD Abdomen/Pelvis CT 02/24/17 0000 Signed Impressions: Service Date/Time: Friday, February 24, 2017 16:16 - CONCLUSION: 1. Marked gaseous distension of large and small bowel most suggestive of ileus. 2. There is no free air. 3. 2.2 cm left adrenal mass. 4. Distended bladder. Isaac Stevenson MD FACR Objective Remarks GENERAL: This is a well-nourished, well-developed patient, in no apparent distress. CARDIOVASCULAR: Regular rate and regular rhythm without murmurs, gallops, or rubs. RESPIRATORY: Clear to auscultation. Breath sounds equal bilaterally. No wheezes , rales, or rhonchi. GASTROINTESTINAL: Abdomen soft, non-tender, nondistended. Normal, active bowel sounds MUSCULOSKELETAL: right forearm covered with clean dressing- s/p right BKA NEURO: Alert & Oriented x4 to person, place, time, situation. Moves all ext x4 skin; rash noted on the right axilla Procedures 03/10/2017 - Dr. Bullock exploration, wash, excisional debridement extensor tenosynovium right wrist/forearm/hand 03/08/17 - Dr. Bullock- exploration, wash, excisional debridement skin, subcutaneous tissue, extensor tenosynovitis right wrist and hand. Findings: necrotic tissue, minimal purulence, extensor tenosynovitis right wrist/hand 03/04/17 - Dr Gamez - Right leg and incision and drainage. Right foot delayed primary closure x3 03/04/17 - Dr. Bullock - Extensor tenosynovectomy second, third, fourth extensor compartments right wrist and excisional debridement wash index finger metacarpal phalangeal joint, excisional wash and excisional debridement left hand. 02/28/17 - Dr. Reyes - Right ankle wound debridement and washout. Implantation of antibiotic vancomycin beads. 02/28/17 - Dr. Bullock - Exploration, wash, excisional debridement index finger metacarpophalangeal joint right hand; Exploration, wash, excisional debridement metacarpophalangeal joint left index finger; Exploration, wash, excisional debridement extensor pollicis longus tendon right thumb and hand. 02/26/17 - Dr. Reyes - Right ankle incision and drainage, arthrotomy, removal infected hardware, bone biopsy. 02/26/17 - Dr. Bullock - Exploration, incision and drainage right hand abscess, Arthrotomy wash metacarpal phalangeal joint right index finger, Arthrotomy wash metacarpal phalangeal joint left index finger. Medications and IVs Current Medications Sodium Chloride 1,000 ml @ 999 mls/hr BOLUS ONCE IV Last administered on 13:38; Start 02/24/17 at 13:45; Stop 02/24/17 at 14:45; Status DC IV Flush (NS Flush) 2 ml UNSCH PRN IV FLUSH FLUSH AFTER USING IV ACCESS Last administered on 02/24/17 13:38; Start 02/24/17 at 13:45 Vancomycin HCl 1000 mg/Sodium Chloride 250 ml @ 250 mls/hr ONCE STAT IV Last administered on 02/24/17 15:49; Start 02/24/17 at 15:35; Stop 02/24/17 at 16:34; Status DC Cefepime HCl 2000 mg/Sodium Chloride 100 ml @ 200 mls/hr ONCE STAT IV Last administered on 02/24/17 16:36; Start 02/24/17 at 15:35; Stop 02/24/17 at 16:04; Status DC Potassium Bicarb/ Potassium Chloride (K-Lyte Cl Eff) 50 meq ONCE ONCE PO Last administered on 02/24/17 15:56; Start 02/24/17 at 16:00; Stop 02/24/17 at 16: 01; Status DC Iohexol (Omnipaque 350 Inj) 97 ml STK-MED ONCE IV Last administered on 16:29; Start 02/24/17 at 16:29; Stop 02/24/17 at 16:30; Status DC Sodium Chloride 1,000 ml @ 125 mls/hr Q8H IV Last administered on 03/02/17 09: 33; Start 02/24/17 at 18:00; Stop 03/02/17 at 13:08; Status DC Ondansetron HCl (Zofran Inj) 4 mg Q8HR PRN IV PUSH NAUSEA; Start 02/24/17 at 18: 00 Thiamine HCl (Vitamin B1) 100 mg ONCE ONCE PO Last administered on 02/24/17 20 :20; Start 02/24/17 at 20:15; Stop 02/24/17 at 20:16; Status DC Thiamine HCl (Vitamin B1) 100 mg DAILY PO Last administered on 04/22/17 09:21 ; Start 02/25/17 at 09:00 Potassium Chloride 100 ml @ 50 mls/hr Q2H IV Last administered on 02/24/17 22: 59; Start 02/24/17 at 20:30; Stop 02/25/17 at 00:29; Status DC Pharmacy Profile Note 0 ml @ 0 mls/hr UNSCH OTHER ; Start 02/24/17 at 20:15; Stop 03/02/17 at 13:23; Status DC Cefepime HCl 2000 mg/Sodium Chloride 100 ml @ 200 mls/hr Q12H IV Last administered on 02/27/17 05:51; Start 02/25/17 at 07:00; Stop 02/27/17 at 14:53; Status DC Vancomycin HCl 1500 mg/Sodium Chloride 515 ml @ 257.5 mls/ hr Q18H IV Last administered on 02/25/17 10:30; Start 02/25/17 at 10:00; Stop 02/25/17 at 11:30; Status DC Miscellaneous Information SPECIFIC LAB TO BE DRAWN:VANCO TROUGH DATE TO BE DR... ONCE ONCE .XX ; Start 02/26/17 at 21:45; Stop 02/26/17 at 21:46; Status DC Flumazenil (Romazicon Inj) 0.2 mg Q1M PRN IV PUSH SEE LABEL COMMENTS; Start 02/25/17 at 09:15 Lorazepam (Ativan) 1 mg Q4H PRN PO agitation Last administered on 04/22/17 09: 29; Start 02/25/17 at 09:15 Lorazepam (Ativan Inj) 1 mg Q4H PRN IV PUSH agitation when not taking po Last administered on 03/05/17 02:41; Start 02/25/17 at 09:15 Lorazepam (Ativan) 2 mg Q2H PRN PO CIWA 11-14; Start 02/25/17 at 09:15; Stop 02/28/17 at 07:44; Status DC Lorazepam (Ativan Inj) 2 mg Q2H PRN IV PUSH CIWA 11-14 Last administered on 02/26 18:14; Start 02/25/17 at 09:15; Stop 02/28/17 at 07:44; Status DC Lorazepam (Ativan Inj) 2 mg Q1H PRN IV PUSH CIWA 15-20 Last administered on 02/25 21:37; Start 02/25/17 at 09:15; Stop 02/28/17 at 07:44; Status DC Lorazepam (Ativan Inj) 2 mg Q15M PRN IV PUSH CIWA > 20 Last administered on 02/26 06:25; Start 02/25/17 at 09:15; Stop 02/28/17 at 07:44; Status DC Multivitamins (Theragran) 1 tab DAILY PO Last administered on 04/22/17 09:21; Start 02/26/17 at 09:00 Acetaminophen (Tylenol) 650 mg Q4H PRN PO FEVER Last administered on 03/07/17 04:47; Start 02/25/17 at 09:15; Stop 03/12/17 at 10:47; Status DC Lisinopril (Prinivil) 10 mg DAILY PO ; Start 02/26/17 at 09:00; Stop 03/08/17 at 21:09; Status DC Enoxaparin Sodium (Lovenox Inj) 40 mg Q24H SQ Last administered on 03/07/17 10 :00; Start 02/25/17 at 10:00; Stop 03/10/17 at 12:17; Status DC Vancomycin HCl 1500 mg/Sodium Chloride 515 ml @ 257.5 mls/ hr Q12H IV Last administered on 02/26/17 09:42; Start 02/25/17 at 22:00; Stop 02/26/17 at 12:06; Status DC Miscellaneous Information SPECIFIC LAB TO BE BIA... ONCE ONCE .XX Last administered on 02/26/17 09:45; Start 02/26/17 at 09:45; Stop 02/26/17 at 09:46; Status DC Chlordiazepoxide (Librium) 25 mg Q8H PO ; Start 02/25/17 at 17:00; Stop 02/25/17 at 20:24; Status DC Gentamicin Sulfate 70 mg/ Sodium Chloride 101.75 ml @ 100 mls/ hr ONCE ONCE IV Last administered on 02/25/17 18:51; Start 02/25/17 at 18:30; Stop 02/25/17 at 19:31; Status DC Dexmedetomidine HCl 200 mcg/ Sodium Chloride 52 ml @ 0 mls/hr TITRATE IV Last administered on 02/27/17 13:55; Start 02/25/17 at 17:30; Stop 03/09/17 at 23:34; Status DC Acetaminophen (Ofirmev Inj) 650 mg Q6H PRN IV TEMP >101 Last administered on 20:12; Start 02/25/17 at 21:00; Stop 04/17/17 at 08:33; Status DC Iohexol (Omnipaque 350 Inj) 75 ml STK-MED ONCE IV Last administered on 21:15; Start 02/25/17 at 21:15; Stop 02/25/17 at 21:16; Status DC Potassium Chloride 100 ml @ 50 mls/hr Q2H PRN IV For Potassium 2.8 - 3.2 mEq/L ; Start 02/25/17 at 22:45; Stop 03/01/17 at 23:53; Status DC Potassium Chloride 100 ml @ 50 mls/hr Q2H PRN IV For Potassium 2.8 - 3.2 mEq/ L Last administered on 02/28/17t 12:32; Start 02/25/17 at 22:45; Stop 03/01/17 at 23:53; Status DC Potassium Bicarb/ Potassium Chloride (K-Lyte Cl Eff) 50 meq UNSCH PRN PO For Potassium 3.3 - 3.5 mEq/L; Start 02/25/17 at 22:45; Stop 03/01/17 at 23:53; Status DC Potassium Chloride 100 ml @ 25 mls/hr UNSCH PRN IV For Potassium 3.3 - 3.5 mEq /L; Start 02/25/17 at 22:45; Stop 03/01/17 at 23:53; Status DC Potassium Chloride 100 ml @ 50 mls/hr Q2H PRN IV For Potassium 3.3 - 3.5 mEq/ L Last administered on 02/28/17t 06:39; Start 02/25/17 at 22:45; Stop 03/01/17 at 23:53; Status DC Magnesium Sulfate 4 gm/Sodium Chloride 100 ml @ 50 mls/hr UNSCH PRN IV For Magnesium 0.9 - 1.1 mg/dL; Start 02/25/17 at 22:45; Stop 03/01/17 at 23:53; Status DC Magnesium Oxide (Mag-Ox) 800 mg UNSCH PRN PO For Magnesium 1.2 - 1.6 mg/dL; Start 02/25/17 at 22:45; Stop 03/01/17 at 23:53; Status DC Magnesium Sulfate 2 gm/Sodium Chloride 100 ml @ 50 mls/hr UNSCH PRN IV For Magnesium 1.2 - 1.6 mg/dL; Start 02/25/17 at 22:45; Stop 03/01/17 at 23:53; Status DC Potassium Phosphate (K-Phos) 2,000 mg Q4H PRN PO For Phosphorus < 2.5 mg/dL; Start 02/25/17 at 22:45; Stop 03/01/17 at 23:53; Status DC Sodium Phosphate 30 mmol/Sodium Chloride 250 ml @ 42 mls/hr UNSCH PRN IV For Phosphorus < 2.5 mg/dL Last administered on 02/26/17 23:19; Start 02/25/17 at 22: 45; Stop 03/01/17 at 23:53; Status DC Potassium Phosphate (K-Phos) 2,000 mg UNSCH PRN PO/TUBE SEE LABEL COMMENTS; Start 02/25/17 at 22:45; Stop 03/01/17 at 23:53; Status DC Potassium Phosphate 30 mmol/ Sodium Chloride 260 ml @ 42 mls/hr UNSCH PRN IV SEE LABEL COMMENTS; Start 02/25/17 at 22:45; Stop 03/01/17 at 23:53; Status DC Labetalol HCl (Trandate Inj) 10 mg Q6H PRN IV PUSH SBP >165; Start 02/25/17 at 23:15 Pantoprazole Sodium (Protonix Inj) 40 mg Q24H IV PUSH Last administered on 04/22 00:38; Start 02/26/17 at 00:00 Miscellaneous Information Patient in critical care unit? Ass... [id number] .XX ; Start 02/26/17 at 07:15 Mupirocin (Bactroban Nasal 2% Oint) 1 applic BID NASAL Last administered on 09:22; Start 02/26/17 at 09:00 Chlorhexidine Gluconate (Chlorhexidine 2% Cloth) 3 pack DAILY@04 TOPICAL Last administered on 03/03/17 04:00; Start 02/27/17 at 04:00; Stop 03/03/17 at 04:01; Status DC Chlorhexidine Gluconate (Chlorhexidine 2% Cloth) 3 pack UNSCH PRN TOPICAL HYGIENIC CARE; Start 02/26/17 at 07:15; Stop 03/03/17 at 07:07; Status DC Lidocaine HCl (Xylocaine 2% Inj) 50 ml STK-MED ONCE .ROUTE ; Start 02/26/17 at 09 :35; Stop 02/26/17 at 09:36; Status DC Bupivacaine HCl (Marcaine Pf 0.5% Inj) 60 ml STK-MED ONCE .ROUTE ; Start at 09:35; Stop 02/26/17 at 09:36; Status DC Mupirocin (Bactroban 2% Oint) 22 applic STK-MED ONCE .ROUTE ; Start 02/26/17 at 09:35; Stop 02/26/17 at 09:36; Status DC Vancomycin HCl 1250 mg/Sodium Chloride 262.5 ml @ 250 mls/hr Q12H IV Last administered on 03/02/17 09:33; Start 02/26/17 at 22:00; Stop 03/02/17 at 13:23; Status DC Miscellaneous Information SPECIFIC LAB TO BE BIA... ONCE ONCE .XX Last administered on 02/27/17 22:46; Start 02/27/17 at 21:45; Stop 02/27/17 at 21:46; Status DC Neomycin/Polymyxin (Neosporin G.u. Irr) 3 ml STK-MED ONCE TOPICAL Last administered on 02/26/17 13:06; Start 02/26/17 at 13:06; Stop 02/26/17 at 16:26; Status DC Neomycin/Polymyxin (Neosporin G.u. Irr) 4 ml STK-MED ONCE TOPICAL Last administered on 02/26/17 15:47; Start 02/26/17 at 15:47; Stop 02/26/17 at 16:26; Status DC Fentanyl Citrate (fentaNYL INJ) 250 mcg STK-MED ONCE .ROUTE ; Start 02/26/17 at 18:16; Stop 02/26/17 at 18:17; Status DC Fentanyl Citrate (fentaNYL INJ) 100 mcg STK-MED ONCE .ROUTE ; Start 02/26/17 at 18:16; Stop 02/26/17 at 18:17; Status DC Miscellaneous Information ALL NURSING DEPARTME... UNSCH PRN .XX SEE LABEL COMMENTS; Start 02/26/17 at 17:57; Stop 02/27/17 at 17:56; Status DC Clonidine (Catapres) 0.3 mg Q8HR PO Last administered on 04/10/17 12:33; Start 02/26/17 at 22:11; Stop 04/10/17 at 12:52; Status DC Diazepam (Valium) 5 mg Taper DAILY PO Last administered on 03/06/17 09:49; Start 02/26/17 at 22:15; Stop 03/06/17 at 22:14; Status DC Water (Free Water) 200 ml Q8HR G-TUBE Last administered on 02/27/17 22:31; Start 02/27/17 at 06:55; Stop 02/28/17 at 07:41; Status DC Rifampin 300 mg/ Sodium Chloride 100 ml @ 100 mls/hr Q12H IV Last administered on 03/02/17 14:41; Start 02/27/17 at 15:00; Stop 03/02/17 at 16:41; Status DC Oxycodone HCl (Roxicodone) 5 mg Q4H PRN PO pain 1-5 Last administered on 09:26; Start 02/28/17 at 07:45; Stop 04/09/17 at 17:08; Status DC Hydromorphone HCl (Dilaudid Pf Inj) 0.5 mg Q3H PRN IV PUSH pain 6-10 or not taking po Last administered on 04/09/17 16:51; Start 02/28/17 at 07:45; Stop at 17:08; Status DC Water (Free Water) 300 ml Q4HR G-TUBE Last administered on 03/02/17 20:00; Start 02/28/17 at 08:00; Stop 03/02/17 at 23:07; Status DC Vancomycin HCl (Vancomycin Inj) 1,000 mg STK-MED ONCE .ROUTE Last administered on 02/28/17 09:01; Start 02/28/17 at 09:01; Stop 02/28/17 at 09:02; Status DC Vancomycin HCl (Vancomycin Inj) 1,000 mg STK-MED ONCE .ROUTE Last administered on 02/28/17 09:33; Start 02/28/17 at 09:33; Stop 02/28/17 at 09:34; Status DC Vancomycin HCl (Vancomycin Inj) 1,000 mg STK-MED ONCE .ROUTE Last administered on 02/28/17 09:36; Start 02/28/17 at 09:33; Stop 02/28/17 at 09:34; Status DC Daptomycin 450 mg/ Sodium Chloride 100 ml @ 200 mls/hr Q24H IV Last administered on 03/05/17 13:41; Start 02/28/17 at 12:00; Stop 03/05/17 at 18:00 ; Status DC Vancomycin HCl (Vancomycin Inj) 1,000 mg STK-MED ONCE .ROUTE Last administered on 02/28/17 10:45; Start 02/28/17 at 10:42; Stop 02/28/17 at 10:43; Status DC Vancomycin HCl (Vancomycin Inj) 500 mg STK-MED ONCE .ROUTE Last administered on 02/28/17 10:45; Start 02/28/17 at 10:42; Stop 02/28/17 at 10:43; Status DC Fentanyl Citrate (fentaNYL INJ) 250 mcg STK-MED ONCE .ROUTE ; Start 02/28/17 at 11:48; Stop 02/28/17 at 11:49; Status DC Miscellaneous Information ALL NURSING DEPARTME... UNSCH PRN .XX SEE LABEL COMMENTS; Start 02/28/17 at 11:33; Stop 03/01/17 at 11:32; Status DC Miscellaneous Information SPECIFIC LAB TO BE BIA... ONCE ONCE .XX ; Start 03/04 at 09:45; Stop 03/04/17 at 09:46; Status Cancel Sodium Chloride 1,000 ml @ 999 mls/hr BOLUS ONCE IV Last administered on 13:28; Start 03/02/17 at 13:15; Stop 03/02/17 at 14:15; Status DC Sodium Chloride 1,000 ml @ 125 mls/hr Q8H IV Last administered on 03/02/17 14: 18; Start 03/02/17 at 13:15; Stop 03/02/17 at 14:30; Status DC Rifampin (Rifampin) 300 mg Q12HR PO Last administered on 03/23/17 08:42; Start 03/02/17 at 21:00; Stop 03/23/17 at 18:40; Status DC Potassium Chloride 20 meq/ Sodium Chloride 38.5 meq/Sterile Water 1,010 ml @ 55 mls/hr [id number] IV Last administered on 03/09/17 22:51; Start 03/03/17 at 11: 00; Stop 03/09/17 at 23:36; Status DC Furosemide (Lasix Inj) 20 mg ONCE ONCE IV PUSH Last administered on 03/03/17 10:19; Start 03/03/17 at 09:30; Stop 03/03/17 at 09:43; Status DC Carvedilol (Coreg) 6.25 mg Q12HR PO Last administered on 04/09/17 08:40; Start 03/03/17 at 21:00; Stop 04/10/17 at 03:26; Status DC Vancomycin HCl (Vancomycin Inj) 1,000 mg STK-MED ONCE .ROUTE Last administered on 03/04/17 15:52; Start 03/04/17 at 15:10; Stop 03/04/17 at 15:11; Status DC Fentanyl Citrate (fentaNYL INJ) 100 mcg STK-MED ONCE .ROUTE ; Start 03/04/17 at 16:38; Stop 03/04/17 at 16:39; Status DC Fentanyl Citrate (fentaNYL INJ) 250 mcg STK-MED ONCE .ROUTE ; Start 03/04/17 at 16:38; Stop 03/04/17 at 16:39; Status DC Vancomycin HCl (Vancomycin Inj) 1,000 mg STK-MED ONCE .ROUTE Last administered on 03/04/17 16:52; Start 03/04/17 at 16:59; Stop 03/04/17 at 17:00; Status DC Fentanyl Citrate (fentaNYL INJ) 100 mcg STK-MED ONCE .ROUTE ; Start 03/04/17 at 18:24; Stop 03/04/17 at 18:25; Status DC Fentanyl Citrate (fentaNYL INJ) 250 mcg STK-MED ONCE .ROUTE ; Start 03/04/17 at 18:25; Stop 03/04/17 at 18:26; Status DC Miscellaneous Information ALL NURSING DEPARTME... UNSCH PRN .XX SEE LABEL COMMENTS; Start 03/04/17 at 19:15; Stop 03/05/17 at 19:14; Status DC Daptomycin 550 mg/ Sodium Chloride 100 ml @ 200 mls/hr Q24H IV Last administered on 04/21/17 12:26; Start 03/06/17 at 12:00 Bisacodyl (Dulcolax Supp) 10 mg DAILY PRN RECTAL SEVERE CONSITIPATION; Start at 21:00 Lactulose (Lactulose Liq) 30 ml DAILY PRN NG SEVERE CONSITIPATION Last administered on 03/07/17 18:45; Start 03/06/17 at 21:00 Docusate Sodium (Colace Liq) 100 mg Q12HR PO Last administered on 03/09/17 09: 30; Start 03/06/17 at 21:15; Status Future Hold Sodium Chloride 250 ml @ 15 mls/hr ONCE ONCE IV Last administered on 00:27; Start 03/07/17 at 19:00; Stop 03/08/17 at 12:06; Status DC Furosemide (Lasix Inj) 20 mg ONCE ONCE IV Last administered on 03/08/17 03:49 ; Start 03/07/17 at 19:00; Stop 03/07/17 at 19:01; Status DC Polyethylene Glycol/ Electrolytes (Colyte Liq) 4,000 ml ONCE ONCE PO ; Start at 11:00; Stop 03/08/17 at 11:01; Status Cancel Mupirocin (Bactroban 2% Oint) 22 applic STK-MED ONCE .ROUTE ; Start 03/08/17 at 12:10; Stop 03/08/17 at 12:11; Status DC Lidocaine HCl (Xylocaine 2% Inj) 50 ml STK-MED ONCE .ROUTE ; Start 03/08/17 at 12:13; Stop 03/08/17 at 12:14; Status DC Bupivacaine HCl (Marcaine Pf 0.5% Inj) 30 ml STK-MED ONCE .ROUTE ; Start at 12:17; Stop 03/08/17 at 12:18; Status DC Famotidine (Pepcid Inj) 20 mg STK-MED ONCE .ROUTE ; Start 03/08/17 at 13:17; Stop 03/08/17 at 13:18; Status DC Vancomycin HCl (Vancomycin Inj) 1,000 mg STK-MED ONCE .ROUTE Last administered on 03/08/17 14:35; Start 03/08/17 at 14:07; Stop 03/08/17 at 14:08; Status DC Sodium Chloride (Sodium Chloride 0.9% Inj) 20 ml STK-MED ONCE .ROUTE ; Start at 14:07; Stop 03/08/17 at 14:08; Status DC Vancomycin HCl (Vancomycin Inj) 1,000 mg STK-MED ONCE .ROUTE ; Start 03/08/17 at 14:42; Stop 03/08/17 at 14:43; Status DC Sodium Chloride (Sodium Chloride 0.9% Inj) 20 ml STK-MED ONCE .ROUTE ; Start at 14:42; Stop 03/08/17 at 14:43; Status DC Fentanyl Citrate (fentaNYL INJ) 500 mcg STK-MED ONCE .ROUTE ; Start 03/08/17 at 15:51; Stop 03/08/17 at 15:52; Status DC Miscellaneous Information ALL NURSING DEPARTME... UNSCH PRN .XX SEE LABEL COMMENTS; Start 03/08/17 at 15:40; Stop 03/09/17 at 15:39; Status DC Polyethylene Glycol/ Electrolytes (Colyte Liq) 4,000 ml ONCE ONCE NG Last administered on 03/08/17 22:42; Start 03/08/17 at 20:00; Stop 03/08/17 at 20:01 ; Status DC Lisinopril (Prinivil) 2.5 mg DAILY PO Last administered on 04/22/17 09:21; Start 03/09/17 at 09:00 Miscellaneous (Pill Splitter) 1 ea UNSCH PRN OTHER SEE LABEL COMMENTS; Start at 21:15 Dextrose 1,000 ml @ 84 mls/hr [id number] IV Last administered on 03/11/17 21:24 ; Start 03/09/17 at 23:45; Stop 03/11/17 at 23:38; Status DC Enoxaparin Sodium (Lovenox Inj) 40 mg Q24H SQ Last administered on 04/21/17 12 :26; Start 03/10/17 at 13:00; Status Future hold Bupivacaine HCl (Marcaine Pf 0.5% Inj) 30 ml STK-MED ONCE .ROUTE ; Start at 14:50; Stop 03/10/17 at 14:51; Status DC Lidocaine HCl (Xylocaine 2% Inj) 50 ml STK-MED ONCE .ROUTE ; Start 03/10/17 at 14:51; Stop 03/10/17 at 14:52; Status DC Bacitracin (Baciguent Oint) 15 applic STK-MED ONCE .ROUTE Last administered on 03/10/17 16:43; Start 03/10/17 at 14:51; Stop 03/10/17 at 14:52; Status DC Vancomycin HCl (Vancomycin Inj) 1,000 mg STK-MED ONCE .ROUTE Last administered on 03/10/17 15:49; Start 03/10/17 at 15:45; Stop 03/10/17 at 15:46; Status DC Sodium Chloride (Sodium Chloride 0.9% Inj) 20 ml STK-MED ONCE .ROUTE ; Start at 15:45; Stop 03/10/17 at 15:46; Status DC Neomycin/Polymyxin (Neosporin G.u. Irr) 2 ml STK-MED ONCE TOPICAL Last administered on 03/10/17 15:49; Start 03/10/17 at 15:49; Stop 03/10/17 at 15:59 ; Status DC Bacitracin (Baciguent Oint) 30 applic STK-MED ONCE .ROUTE Last administered on 03/10/17 16:44; Start 03/10/17 at 16:41; Stop 03/10/17 at 16:42; Status DC Hydromorphone HCl (Dilaudid Pf Inj) 2 mg STK-MED ONCE .ROUTE ; Start 03/10/17 at 16:47; Stop 03/10/17 at 16:48; Status DC Fentanyl Citrate (fentaNYL INJ) 250 mcg STK-MED ONCE .ROUTE ; Start 03/10/17 at 17:22; Stop 03/10/17 at 17:23; Status DC Morphine Sulfate (*morphine INJ PERIprocedure ONLY) 8 mg STK-MED ONCE .ROUTE Last administered on 03/10/17 18:12; Start 03/10/17 at 18:12; Stop 03/10/17 at 18:13; Status DC Miscellaneous Information ALL NURSING DEPARTME... UNSCH PRN .XX SEE LABEL COMMENTS; Start 03/10/17 at 14:30; Stop 03/11/17 at 14:29; Status DC Propofol (Diprivan 200 Mg/20 ml Inj) 200 mg STK-MED ONCE IV PUSH ; Start at 15:29; Stop 03/11/17 at 15:47; Status DC Oxybenzone/ Padimate O/ Dimethicone (Blistex Lip [place]) 4.25 applic STK-MED ONCE TOPICAL Last administered on 03/11/17 16:02; Start 03/11/17 at 16:02; Stop at 16:03; Status DC Miscellaneous Information ALL NURSING DEPARTME... UNSCH PRN .XX SEE LABEL COMMENTS; Start 03/11/17 at 16:00; Stop 03/12/17 at 15:59; Status DC Succinylcholine Chloride (Quelicin Inj) 200 mg STK-MED ONCE IV PUSH ; Start at 15:27; Stop 03/12/17 at 08:59; Status DC Sodium Chloride 250 ml @ 15 mls/hr ONCE ONCE IV Last administered on t 10:15; Start 03/12/17 at 10:15; Stop 03/13/17 at 02:54; Status DC Acetaminophen (Tylenol) 650 mg Q4H PRN PO SEE LABEL COMMENTS; Start 03/12/17 at 10:15; Stop 03/12/17 at 14:16; Status DC Diphenhydramine HCl (Benadryl) 25 mg Q4H PRN PO SEE LABEL COMMENTS; Start 03/12 at 10:15; Stop 03/12/17 at 14:16; Status DC Potassium Chloride 100 ml @ 50 mls/hr Q2H IV Last administered on 03/12/17 13 :25; Start 03/12/17 at 11:00; Stop 03/12/17 at 14:59; Status DC Lidocaine HCl (Xylocaine 2% Inj) 50 ml STK-MED ONCE .ROUTE ; Start 03/12/17 at 13:04; Stop 03/12/17 at 13:05; Status DC Mupirocin (Bactroban 2% Oint) 22 applic STK-MED ONCE .ROUTE ; Start 03/12/17 at 13:06; Stop 03/12/17 at 13:07; Status DC Hydromorphone HCl (Dilaudid Pf Inj) 2 mg STK-MED ONCE .ROUTE ; Start 03/12/17 at 15:18; Stop 03/12/17 at 15:19; Status DC Acetaminophen (Ofirmev Inj) 1,000 mg STK-MED ONCE IV ; Start 03/12/17 at 15:18; Stop 03/12/17 at 15:19; Status DC Vancomycin HCl (Vancomycin Inj) 1,000 mg STK-MED ONCE .ROUTE Last administered on 03/12/17 15:54; Start 03/12/17 at 15:57; Stop 03/12/17 at 15:58; Status DC Neomycin/Polymyxin (Neosporin G.u. Irr) 2 ml STK-MED ONCE TOPICAL Last administered on 03/12/17 15:54; Start 03/12/17 at 15:54; Stop 03/12/17 at 16:15 ; Status DC Fentanyl Citrate (fentaNYL INJ) 250 mcg STK-MED ONCE .ROUTE ; Start 03/12/17 at 17:04; Stop 03/12/17 at 17:05; Status DC Miscellaneous Information ALL NURSING DEPARTME... UNSCH PRN .XX SEE LABEL COMMENTS; Start 03/12/17 at 17:30; Stop 03/13/17 at 17:29; Status DC Morphine Sulfate (*morphine INJ PERIprocedure ONLY) 8 mg STK-MED ONCE .ROUTE Last administered on 03/12/17 17:33; Start 03/12/17 at 17:33; Stop 03/12/17 at 17:34; Status DC Lidocaine HCl (Xylocaine 1% Inj) 10 ml ONCE@0700 ONCE OTHER ; Start 03/13/17 at 07:00; Stop 03/13/17 at 07:01; Status DC Potassium Chloride/Sodium Chloride 1,000 ml @ 75 mls/hr [id number] IV Last administered on 04/07/17 10:54; Start 03/13/17 at 11:30; Stop 04/07/17 at 13:42 ; Status DC Polyethylene Glycol/ Electrolytes (Colyte Liq) 4,000 ml ONCE ONCE PEG Last administered on 03/14/17 17:13; Start 03/14/17 at 16:00; Stop 03/14/17 at 16:01 ; Status DC Sodium Chloride 250 ml @ 15 mls/hr ONCE ONCE IV Last administered on 21:30; Start 03/13/17 at 20:00; Stop 03/14/17 at 12:39; Status DC Polyethylene Glycol/ Electrolytes (Colyte Liq) 4,000 ml ONCE ONCE PO Last administered on 03/15/17 17:19; Start 03/15/17 at 16:45; Stop 03/15/17 at 16:48 ; Status DC Propofol (Diprivan 200 Mg/20 ml Inj) 180 mg ONCE ONCE IV Last administered on 03/15/17 16:45; Start 03/15/17 at 16:43; Stop 03/15/17 at 16:45; Status DC Sodium Biphosphate/ Sodium Phosphate (Fleets Enema (Adult)) 133 ml ONCE ONCE RECTAL Last administered on 03/16/17 14:45; Start 03/16/17 at 14:15; Stop at 14:21; Status DC Sodium Biphosphate/ Sodium Phosphate (Fleets Enema (Adult)) 133 ml ONCE ONCE RECTAL Last administered on 03/17/17 09:49; Start 03/17/17 at 08:00; Stop at 08:01; Status DC Propofol (Diprivan 200 Mg/20 ml Inj) 100 mg ONCE ONCE IV PUSH ; Start at 15:00; Stop 03/16/17 at 15:01; Status DC Midazolam HCl (Versed Inj) 2 mg STK-MED ONCE .ROUTE ; Start 03/16/17 at 15:34; Stop 03/16/17 at 15:35; Status DC Vancomycin HCl (Vancomycin Inj) 1,000 mg STK-MED ONCE .ROUTE Last administered on 03/18/17 18:58; Start 03/18/17 at 18:15; Stop 03/18/17 at 18:16; Status DC Fentanyl Citrate (fentaNYL INJ) 200 mcg STK-MED ONCE .ROUTE ; Start 03/18/17 at 19:50; Stop 03/18/17 at 19:51; Status DC Methocarbamol (Robaxin) 500 mg Q8HR PO Last administered on 04/14/17 05:25; Start 03/19/17 at 14:00; Stop 04/14/17 at 12:13; Status DC Acetaminophen 100 ml @ As Directed STK-MED ONCE IV ; Start 03/24/17 at 09:21; Stop 03/24/17 at 09:22; Status DC Midazolam HCl (Versed Inj) 2 mg STK-MED ONCE .ROUTE ; Start 03/24/17 at 09:21; Stop 03/24/17 at 09:22; Status DC Fentanyl Citrate (fentaNYL INJ) 100 mcg STK-MED ONCE .ROUTE ; Start 03/24/17 at 09:21; Stop 03/24/17 at 09:22; Status DC Fentanyl Citrate (fentaNYL INJ) 100 mcg STK-MED ONCE .ROUTE ; Start 03/24/17 at 09:21; Stop 03/24/17 at 09:22; Status DC Hydromorphone HCl (*DILAUDID PF INJ PERIprocedural ONLY) 1 mg STK-MED ONCE .ROUTE Last administered on 03/24/17 14:53; Start 03/24/17 at 14:53; Stop at 14:54; Status DC Meperidine HCl (*DEMEROL INJ PERIprocedural ONLY) 25 mg STK-MED ONCE .ROUTE Last administered on 03/24/17 15:01; Start 03/24/17 at 15:01; Stop 03/24/17 at 15:02; Status DC Fentanyl Citrate (fentaNYL INJ) 400 mcg STK-MED ONCE .ROUTE ; Start 03/24/17 at 15:01; Stop 03/24/17 at 15:02; Status DC Miscellaneous Information ALL NURSING DEPARTME... UNSCH PRN .XX SEE LABEL COMMENTS; Start 03/24/17 at 14:52; Stop 03/25/17 at 14:51; Status DC Polyethylene Glycol (Miralax) 17 gm DAILY PO ; Start 03/24/17 at 16:30; Status Cancel Acetaminophen (Tylenol) 650 mg Q4H PRN PO fever Last administered on 03/25/17 10:02; Start 03/25/17 at 10:00 Piperacillin Sod/ Tazobactam Sod 100 ml @ 200 mls/hr Q8H IV Last administered on 03/29/17 12:36; Start 03/25/17 at 20:00; Stop 03/29/17 at 14:34; Status DC Furosemide (Lasix Inj) 10 mg ONCE ONCE IV PUSH Last administered on 03/26/17 13:47; Start 03/26/17 at 13:30; Stop 03/26/17 at 13:34; Status DC Furosemide (Lasix Inj) 10 mg UNSCH X1 IV PUSH Last administered on 03/27/17 01 :31; Start 03/26/17 at 17:15; Stop 03/26/17 at 23:59; Status DC Levothyroxine Sodium (Synthroid) 50 mcg DAILY@0600 PO Last administered on 04/22 06:12; Start 03/30/17 at 06:00 Levothyroxine Sodium (Synthroid) 50 mcg ONCE ONCE PO Last administered on t 12:55; Start 03/29/17 at 12:00; Stop 03/29/17 at 12:02; Status DC Levofloxacin (Levaquin) 500 mg DAILY PO Last administered on 04/07/17t 08:46; Start 03/29/17 at 14:45; Stop 04/07/17 at 14:44; Status DC Propofol (Diprivan 200 Mg/20 ml Inj) 200 mg STK-MED ONCE IV ; Start 02/26/17 at 12:00; Stop 03/30/17 at 13:17; Status DC Neostigmine Methylsulfate (Prostigmin Inj) 3 mg STK-MED ONCE IV ; Start 02/26/17 at 12:00; Stop 03/30/17 at 13:17; Status DC Phenylephrine HCl (Neosynephrine/ NS 1000 Mcg/10ml Syr) 1,000 mcg STK-MED ONCE IV ; Start 02/26/17 at 12:00; Stop 03/30/17 at 13:17; Status DC Lactated Ringer's 2,000 ml @ As Directed STK-MED ONCE IV ; Start 02/26/17 at 12: 00; Stop 03/30/17 at 13:17; Status DC Propofol (Diprivan 200 Mg/20 ml Inj) 200 mg STK-MED ONCE IV ; Start 02/28/17 at 12:00; Stop 03/30/17 at 13:46; Status DC Neostigmine Methylsulfate (Prostigmin Inj) 3 mg STK-MED ONCE IV ; Start 02/28/17 at 12:00; Stop 03/30/17 at 13:46; Status DC Lactated Ringer's 2,000 ml @ As Directed STK-MED ONCE IV ; Start 02/28/17 at 12: 00; Stop 03/30/17 at 13:46; Status DC Propofol (Diprivan 200 Mg/20 ml Inj) 400 mg STK-MED ONCE IV ; Start 03/04/17 at 12:00; Stop 03/30/17 at 14:07; Status DC Ephedrine Sulfate (ePHEDrine/NS 25 MG/5 ML SYR) 25 mg STK-MED ONCE IV ; Start at 12:00; Stop 03/30/17 at 14:07; Status DC Phenylephrine HCl (Neosynephrine/ NS 1000 Mcg/10ml Syr) 2,000 mcg STK-MED ONCE IV ; Start 03/04/17 at 12:00; Stop 03/30/17 at 14:08; Status DC Ondansetron HCl (Zofran Inj) 4 mg STK-MED ONCE IV PUSH ; Start 03/04/17 at 12:00 ; Stop 03/30/17 at 14:08; Status DC Propofol (Diprivan 200 Mg/20 ml Inj) 200 mg STK-MED ONCE IV ; Start 03/08/17 at 12:00; Stop 03/30/17 at 14:49; Status DC Ephedrine Sulfate (ePHEDrine/NS 25 MG/5 ML SYR) 50 mg STK-MED ONCE IV ; Start at 12:00; Stop 03/30/17 at 14:49; Status DC Neostigmine Methylsulfate (Prostigmin Inj) 4 mg STK-MED ONCE IV ; Start at 12:00; Stop 03/30/17 at 14:49; Status DC Phenylephrine HCl (Neosynephrine/ NS 1000 Mcg/10ml Syr) 1,000 mcg STK-MED ONCE IV ; Start 03/08/17 at 12:00; Stop 03/30/17 at 14:49; Status DC Ondansetron HCl (Zofran Inj) 4 mg STK-MED ONCE IV PUSH ; Start 03/08/17 at 12:00 ; Stop 03/30/17 at 14:49; Status DC Lactated Ringer's 1,000 ml @ As Directed STK-MED ONCE IV ; Start 03/08/17 at 12 :00; Stop 03/30/17 at 14:49; Status DC Propofol (Diprivan 200 Mg/20 ml Inj) 200 mg STK-MED ONCE IV ; Start 03/10/17 at 12:00; Stop 03/30/17 at 15:08; Status DC Ephedrine Sulfate (ePHEDrine/NS 25 MG/5 ML SYR) 25 mg STK-MED ONCE IV ; Start at 12:00; Stop 03/30/17 at 15:08; Status DC Neostigmine Methylsulfate (Prostigmin Inj) 3 mg STK-MED ONCE IV ; Start at 12:00; Stop 03/30/17 at 15:08; Status DC Phenylephrine HCl (Neosynephrine/ NS 1000 Mcg/10ml Syr) 2,000 mcg STK-MED ONCE IV ; Start 03/10/17 at 12:00; Stop 03/30/17 at 15:08; Status DC Ondansetron HCl (Zofran Inj) 4 mg STK-MED ONCE IV PUSH ; Start 03/10/17 at 12:00 ; Stop 03/30/17 at 15:08; Status DC Lactated Ringer's 1,000 ml @ As Directed STK-MED ONCE IV ; Start 03/10/17 at 12 :00; Stop 03/30/17 at 15:08; Status DC Sodium Chloride 1,000 ml @ As Directed STK-MED ONCE IV ; Start 03/10/17 at 12: 00; Stop 03/30/17 at 15:08; Status DC Propofol (Diprivan 200 Mg/20 ml Inj) 200 mg STK-MED ONCE IV ; Start 03/12/17 at 12:00; Stop 03/30/17 at 15:20; Status DC Ephedrine Sulfate (ePHEDrine/NS 25 MG/5 ML SYR) 25 mg STK-MED ONCE IV ; Start at 12:00; Stop 03/30/17 at 15:20; Status DC Phenylephrine HCl (Neosynephrine/ NS 1000 Mcg/10ml Syr) 1,000 mcg STK-MED ONCE IV ; Start 03/12/17 at 12:00; Stop 03/30/17 at 15:20; Status DC Ondansetron HCl (Zofran Inj) 4 mg STK-MED ONCE IV PUSH ; Start 03/12/17 at 12:00 ; Stop 03/30/17 at 15:20; Status DC Lactated Ringer's 1,000 ml @ As Directed STK-MED ONCE IV ; Start 03/12/17 at 12 :00; Stop 03/30/17 at 15:20; Status DC Propofol (Diprivan 200 Mg/20 ml Inj) 200 mg STK-MED ONCE IV ; Start 03/18/17 at 12:00; Stop 03/30/17 at 15:38; Status DC Ondansetron HCl (Zofran Inj) 4 mg STK-MED ONCE IV PUSH ; Start 03/18/17 at 12:00 ; Stop 03/30/17 at 15:38; Status DC Neostigmine Methylsulfate (Prostigmin Inj) 3 mg STK-MED ONCE IV ; Start at 12:00; Stop 03/30/17 at 15:38; Status DC Phenylephrine HCl (Neosynephrine/ NS 1000 Mcg/10ml Syr) 1,000 mcg STK-MED ONCE IV ; Start 03/18/17 at 12:00; Stop 03/30/17 at 15:38; Status DC Oxycodone/ Acetaminophen (Percocet 5-325 Mg) 1 tab Q4H PRN PO pain 3 to 5; Start 04/02/17 at 13:00; Stop 04/09/17 at 17:08; Status DC Oxycodone/ Acetaminophen (Percocet 10-325 Mg) 1 tab Q4H PRN PO pain 6-10 Last administered on 04/09/17 14:14; Start 04/02/17 at 13:00; Stop 04/09/17 at 17:08 ; Status DC Magnesium Sulfate/ Dextrose 100 ml @ 100 mls/hr Q1H IV Last administered on 16:15; Start 04/03/17 at 14:00; Stop 04/03/17 at 15:59; Status DC Sodium Chloride (Sodium Chloride) 1 gm TID PO Last administered on 04/07/17 13 :24; Start 04/04/17 at 14:00; Stop 04/07/17 at 13:45; Status DC Calcium Chloride 2 gm/Sodium Chloride 120 ml @ 120 mls/hr ONCE ONCE IV Last administered on 04/04/17 15:45; Start 04/04/17 at 14:00; Stop 04/04/17 at 14:59 ; Status DC Hydromorphone HCl (Dilaudid Pf Inj) 0.2 mg Q6H PRN IV PUSH breakthrough pain Last administered on 04/13/17 03:27; Start 04/09/17 at 17:15; Stop 04/13/17 at 03:27; Status DC Acetaminophen/ Hydrocodone Bitart ([place] 7.5-325 Mg) 1 tab Q4H PRN PO PAIN 6- 10 Last administered on 04/22/17 09:20; Start 04/09/17 at 17:15 Acetaminophen/ Hydrocodone Bitart ([place] 5-325 Mg) 1 tab Q4H PRN PO PAIN 3-5 Last administered on 04/18/17 01:26; Start 04/09/17 at 17:15 Tolvaptan (Samsca) 15 mg ONCE ONCE PO Last administered on 04/09/17 22:49; Start 04/09/17 at 19:30; Stop 04/09/17 at 19:32; Status DC Carvedilol (Coreg) 6.25 mg Q12HR PO Last administered on 04/22/17 09:21; Start 04/10/17 at 09:00 Clonidine (Catapres) 0.2 mg Q8H PO Last administered on 04/22/17 04:45; Start 04/10/17 at 20:00 Methocarbamol (Robaxin) 750 mg Q8HR PO Last administered on 04/22/17 06:12; Start 04/14/17 at 14:00 Sodium Chloride (Sodium Chloride) 1 gm TID PO Last administered on 04/22/17 09 :21; Start 04/18/17 at 13:00 Demeclocycline HCl (Declomycin) 300 mg Q12HR PO Last administered on 04/22/17 09:21; Start 04/18/17 at 11:45 Furosemide (Lasix Inj) 20 mg ONCE ONCE IV PUSH Last administered on 04/19/17 17:39; Start 04/19/17 at 17:15; Stop 04/19/17 at 17:16; Status DC A/P Assessment and Plan A/P Hyponatremia-slowly improving. continue fluid restriction. patient previously received Tolvaptan- started on sodium tablet and Demeclocycline. nephrology following. monitor the sodium level closely; sodium level today pending. 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 distant showering of emboli to other joints. MRSA bacteremia Right ankle hardware infection, s/p partial removal of hardware. Deeper hardware embedded. SP RIGHT BKA Bilateral UE hand abscess and tenosynovitis, septic arthritis s.p multiple debridements. continue Daptomycin till 04/24/17 per ID Continue pain control. ID following Multiple surgeries thus far: - podiatry Dr. Reyes/Dr. Gamez on 02/26, 02/28, 03/04 - hand surgeon Dr. Bullock on 02/26, 02/28, 03/04, 03/08, 03/10 -right BKA Anemia Follow CBC Status post blood transfusion Acute Toxic/Metabolic Encephalopathy secondary to Sepsis-improved. Acute Alcohol Withdrawal - improved Hypertension Continue clonidine and Coreg, cardiology initiated low dose lisinopril, monitor renal function Follow blood pressures Adjust as needed for control chronic Systolic CHF Scrotal edema EF of 40-45% with global hypokinesis found on 02/28/17 Continue beta amarjit and lisinopril Hypothyroidism continue synthroid THADDEUS mostly vanco induced - resolved Monitor renal function Avoid nephrotoxins Previous event was likely secondary to ATN Hepatitis C- f/u as outpatient. Standard precautions DVT Prophylaxis Lovenox Discharge Planning awaiting ID recommendation- discharge when cleared by ID and sodium level stable. Flaca Houser MD Apr 22, 2017 10:47
[2017-04-22 12:00] VITALS: BP 124/71; PULSE 63; RESP 16; TEMP 98.4; O2SAT 98
[2017-04-22] MEDS: DAPTOMYCIN IV SCH (12:15)
[2017-04-22] MEDS: ENOXAPARIN SODIUM 40 MG/0.4 ML SYRINGE SQ SCH (12:15)
[2017-04-22] MEDS: SODIUM CHLORIDE 0.9% IV SCH (12:15)
[2017-04-22 15:20] LABS: BICARBONATE 24.4 MEQ/L (21.0-32.0); POTASSIUM 4.3 MEQ/L (3.5-5.1)
[2017-04-22 16:00] VITALS: BP 121/69; PULSE 69; RESP 16; TEMP 97.6; O2SAT 97
[2017-04-22] MEDS ORDERED: HYDROCORTISONE 0.5% CREAM 30 GM TOPICAL PRN (16:00)
--- NOTE | 2017-04-22 16:38 | HHI.NPPN ---
Subjective History of Present Illness 61 year old male with past medical history of hypertension, history of being homeless. He was admitted on February 25 with altered mental status and leukocytosis. I was called to see the patient because of elevated BUN and creatinine. Additional Remarks Patient is alert, no SOB, feeling better. Objective Data Data 04/22/17 04/23/17 19:00 07:00 Intake Total 100 ml Balance 100 ml IV Total 100 ml Vital Signs Date Time Temp Pulse Resp B/P (MAP) Pulse Ox O2 Delivery O2 Flow Rate FiO2 04/22/17 12:00 98.4 63 16 124/71 (88) 98 04/22/17 09:32 Room Air 04/22/17 08:00 98.4 68 16 138/72 (94) 98 04/22/17 05:50 98.0 64 16 137/66 (89) 98 04/21/17 23:55 98.2 73 16 127/74 (91) 100 04/21/17 20:27 98.7 74 16 144/73 (96) 99 04/21/17 20:00 Room Air -: 04/20/17 0709 04/22/17 1434 Physical Exam General Appearance: No Acute Distress, Anxious Eyes Eye Exam: Pupils Equal Throat Throat Exam: Oral Mucosa [place] & Moist Neck Neck Exam: Neck Supple Pulmonary Resp Exam: Breath Sounds Equal, No Distress, Rhonchi, Decreased Bases Cardiology CV Exam: Regular, Normal Sinus Rhythm Gastrointestinal/Abdomen GI Exam: Soft, Non-Tender, Bowel Sounds Present Extremeties Extremities Exam: Trace Edema Neurologic Neuro Exam: Alert, Awake Assessment/Plan Assessment Summary: THADDEUS/Acute Renal Failure Problem List: (1) Encephalopathy ICD Codes: G93.40 - Encephalopathy, unspecified Status: Acute (2) Essential hypertension ICD Codes: I10 - Essential (primary) hypertension Status: Acute (3) Hepatitis C, chronic ICD Codes: B18.2 - Chronic viral hepatitis C Status: Chronic (4) Abscess of right hand including fingers ICD Codes: L02.511 - Cutaneous abscess of right hand Status: Chronic (5) Abscess of left hand including fingers ICD Codes: L02.512 - Cutaneous abscess of left hand Status: Chronic (6) Alcoholism ICD Codes: F10.20 - Alcohol dependence, uncomplicated Status: Chronic (7) CHF (congestive heart failure) ICD Codes: I50.9 - Heart failure, unspecified Status: Acute (8) Sepsis ICD Codes: A41.9 - Sepsis, unspecified organism Status: Acute (9) ARF (acute renal failure) ICD Codes: N17.9 - Acute kidney failure, unspecified Status: Acute Plan Patient has Acute kidney injury and Creatinine now normalized. Na. improved after given one dose of Samsca on 04/09. Now gradually decreasing Na. and it is 126. Has elevated urine Osmolality in past, possible SIADH. Clinically euvolemic. Need to continue fluid restriction. On NaCl, and Declomycin. Since Na. is slowly improving, will hold Samsca again. Continue same, the Na. should improve close to 130. Problem Qualifiers (1) Sepsis: Diane Barker MD Apr 22, 2017 16:38
[2017-04-22] MEDS ORDERED: HYDROCORTISONE 1% CREAM 30 GM TOPICAL PRN (17:00)
[2017-04-22 20:00] VITALS: BP 141/75; PULSE 70; RESP 20; TEMP 98.6; O2SAT 98
[2017-04-23 00:10] VITALS: BP 129/68; PULSE 67; RESP 18; TEMP 98.4; O2SAT 98
[2017-04-23] MEDS: ACETAMINOPHEN/HYDROcodone 325 MG/7.5 MG TAB PO PRN ×5 (00:36→20:31)
[2017-04-23] MEDS: LORazepam 1 MG TAB PO PRN ×5 (00:36→20:31)
[2017-04-23] MEDS: PANTOPRAZOLE SODIUM 40 MG VIAL IV PUSH SCH (00:36)
[2017-04-23 04:00] VITALS: BP 115/60; PULSE 59; RESP 18; TEMP 98.2; O2SAT 98
[2017-04-23] MEDS: cloNIDine HCL 0.2 MG TAB PO SCH ×3 (04:44→20:31)
[2017-04-23] MEDS: LEVOTHYROXINE SODIUM 50 MCG TAB PO SCH (06:06)
[2017-04-23] MEDS: METHOCARBAMOL 500 MG TAB PO SCH ×3 (06:06→22:11)
[2017-04-23] MEDS: CARVEDILOL 6.25 MG TAB PO SCH ×2 (07:36→20:31)
[2017-04-23] MEDS: LISINOPRIL 5 MG TAB PO SCH (07:37)
[2017-04-23] MEDS: SODIUM CHLORIDE 1 GRAM TAB PO SCH ×3 (07:40→17:20)
[2017-04-23] MEDS: MULTIVITAMIN TAB PO SCH (07:40)
[2017-04-23] MEDS: THIAMINE HCL 100 MG TAB PO SCH (07:40)
[2017-04-23] MEDS: DEMECLOCYCLINE HCL 150 MG TAB PO SCH ×2 (07:41→20:30)
[2017-04-23] MEDS: MUPIROCIN 2% OINT 1 APPLIC/GM SYR NASAL SCH ×2 (07:41→20:31)
[2017-04-23 08:00] VITALS: BP 98/56; PULSE 65; RESP 18; TEMP 97.7; O2SAT 97
--- NOTE | 2017-04-23 10:26 | HHI.PR ---
Subjective Remarks comfortable with no distress. no new complaints. afebrile. Objective Vitals Vital Signs Date Time Temp Pulse Resp B/P (MAP) Pulse Ox O2 Delivery O2 Flow Rate FiO2 04/23/17 08:00 97.7 65 18 98/56 (70) 97 04/23/17 07:44 Room Air 04/23/17 04:00 98.2 59 18 115/60 (78) 98 04/23/17 04:00 Room Air 04/23/17 00:10 98.4 67 18 129/68 (88) 98 04/23/17 00:00 Room Air 04/22/17 20:00 98.6 70 20 141/75 (97) 98 04/22/17 20:00 Room Air 04/22/17 16:00 97.6 69 16 121/69 (86) 97 04/22/17 12:00 98.4 63 16 124/71 (88) 98 I/O 04/22/17 04/22/17 04/22/17 04/23/17 04/23/17 04/23/17 07:00 15:00 23:00 07:00 15:00 23:00 Intake Total 720 ml 100 ml 480 ml Output Total 800 ml 450 ml 1025 ml Balance -80 ml 100 ml 30 ml -1025 ml Intake Oral 720 ml 480 ml IV Total 100 ml Output Urine Total 800 ml 450 ml 1025 ml # Bowel Movements 0 0 Result Diagram: 04/20/17 0709 04/23/17 0817 Imaging Last Impressions Chest X-Ray 03/29/17 0000 Signed Impressions: Service Date/Time: Wednesday, March 29, 2017 12:17 - CONCLUSION: Stable chest. Isaac Stevenson MD FACR Tumor Localization 03/22/17 0000 Signed Impressions: Service Date/Time: Wednesday, March 22, 2017 13:03 - CONCLUSION: Nondiagnostic examination secondary to patient refusal Harry Lucio MD Abdomen X-Ray 03/08/17 0000 Signed Impressions: Service Date/Time: Wednesday, March 08, 2017 10:30 - CONCLUSION: Nonspecific, negative for obstruction or ileus. Isaac Stevenson MD FACR Lower Extremity CT 03/01/17 0000 Signed Impressions: Service Date/Time: Wednesday, March 01, 2017 11:12 - CONCLUSION: 1. No evidence of organized fluid collections to suggest an abscess. 2. Extensive soft tissue swelling surrounding the ankle and extending to the forefoot especially along the lateral aspect. 3. No erosive or destructive bone changes. 4. Bone defects compatible with previous excision device. Blake Rider MD Ankle X-Ray 02/26/17 0000 Signed Impressions: Service Date/Time: Sunday, February 26, 2017 17:15 - CONCLUSION: I see no retained surgical instruments. Isaac Stevenson MD FACR Upper Extremity Ultrasound 02/25/17 1734 Signed Impressions: Service Date/Time: February 17:54 - CONCLUSION: There is a thin fluid collection within the focal area of soft tissue swelling 2nd digit. Oscar Cassidy MD Hand X-Ray 02/25/17 0000 Signed Impressions: Service Date/Time: February 18:59 - CONCLUSION: No gross bony abnormality. Oscar Cassidy MD Lower Extremity Ultrasound 02/24/17 0000 Signed Impressions: Service Date/Time: Friday, February 24, 2017 13:41 - CONCLUSION: Negative for deep venous thrombosis. Isaac Stevenson MD FACR Head CT 02/24/17 0000 Signed Impressions: Service Date/Time: Friday, February 24, 2017 16:08 - CONCLUSION: 1. No acute intracranial abnormality. 2. Probable large mucocele in the sphenoid sinus. Ty Hankins MD Abdomen/Pelvis CT 02/24/17 0000 Signed Impressions: Service Date/Time: Friday, February 24, 2017 16:16 - CONCLUSION: 1. Marked gaseous distension of large and small bowel most suggestive of ileus. 2. There is no free air. 3. 2.2 cm left adrenal mass. 4. Distended bladder. Isaac Stevenson MD FACR Objective Remarks GENERAL: This is a well-nourished, well-developed patient, in no apparent distress. CARDIOVASCULAR: Regular rate and regular rhythm without murmurs, gallops, or rubs. RESPIRATORY: Clear to auscultation. Breath sounds equal bilaterally. No wheezes , rales, or rhonchi. GASTROINTESTINAL: Abdomen soft, non-tender, nondistended. Normal, active bowel sounds MUSCULOSKELETAL: right forearm covered with clean dressing- s/p right BKA NEURO: Alert & Oriented x4 to person, place, time, situation. Moves all ext x4 skin; rash noted on the right axilla Procedures 03/10/2017 - Dr. Bullock exploration, wash, excisional debridement extensor tenosynovium right wrist/forearm/hand 03/08/17 - Dr. Bullock- exploration, wash, excisional debridement skin, subcutaneous tissue, extensor tenosynovitis right wrist and hand. Findings: necrotic tissue, minimal purulence, extensor tenosynovitis right wrist/hand 03/04/17 - Dr Gamez - Right leg and incision and drainage. Right foot delayed primary closure x3 03/04/17 - Dr. Bullock - Extensor tenosynovectomy second, third, fourth extensor compartments right wrist and excisional debridement wash index finger metacarpal phalangeal joint, excisional wash and excisional debridement left hand. 02/28/17 - Dr. Reyes - Right ankle wound debridement and washout. Implantation of antibiotic vancomycin beads. 02/28/17 - Dr. Bullock - Exploration, wash, excisional debridement index finger metacarpophalangeal joint right hand; Exploration, wash, excisional debridement metacarpophalangeal joint left index finger; Exploration, wash, excisional debridement extensor pollicis longus tendon right thumb and hand. 02/26/17 - Dr. Reyes - Right ankle incision and drainage, arthrotomy, removal infected hardware, bone biopsy. 02/26/17 - Dr. Bullock - Exploration, incision and drainage right hand abscess, Arthrotomy wash metacarpal phalangeal joint right index finger, Arthrotomy wash metacarpal phalangeal joint left index finger. Medications and IVs Current Medications Sodium Chloride 1,000 ml @ 999 mls/hr BOLUS ONCE IV Last administered on 13:38; Start 02/24/17 at 13:45; Stop 02/24/17 at 14:45; Status DC IV Flush (NS Flush) 2 ml UNSCH PRN IV FLUSH FLUSH AFTER USING IV ACCESS Last administered on 02/24/17 13:38; Start 02/24/17 at 13:45 Vancomycin HCl 1000 mg/Sodium Chloride 250 ml @ 250 mls/hr ONCE STAT IV Last administered on 02/24/17 15:49; Start 02/24/17 at 15:35; Stop 02/24/17 at 16:34; Status DC Cefepime HCl 2000 mg/Sodium Chloride 100 ml @ 200 mls/hr ONCE STAT IV Last administered on 02/24/17 16:36; Start 02/24/17 at 15:35; Stop 02/24/17 at 16:04; Status DC Potassium Bicarb/ Potassium Chloride (K-Lyte Cl Eff) 50 meq ONCE ONCE PO Last administered on 02/24/17 15:56; Start 02/24/17 at 16:00; Stop 02/24/17 at 16: 01; Status DC Iohexol (Omnipaque 350 Inj) 97 ml STK-MED ONCE IV Last administered on 16:29; Start 02/24/17 at 16:29; Stop 02/24/17 at 16:30; Status DC Sodium Chloride 1,000 ml @ 125 mls/hr Q8H IV Last administered on 03/02/17 09: 33; Start 02/24/17 at 18:00; Stop 03/02/17 at 13:08; Status DC Ondansetron HCl (Zofran Inj) 4 mg Q8HR PRN IV PUSH NAUSEA; Start 02/24/17 at 18: 00 Thiamine HCl (Vitamin B1) 100 mg ONCE ONCE PO Last administered on 02/24/17 20 :20; Start 02/24/17 at 20:15; Stop 02/24/17 at 20:16; Status DC Thiamine HCl (Vitamin B1) 100 mg DAILY PO Last administered on 04/23/17 07:40 ; Start 02/25/17 at 09:00 Potassium Chloride 100 ml @ 50 mls/hr Q2H IV Last administered on 02/24/17 22: 59; Start 02/24/17 at 20:30; Stop 02/25/17 at 00:29; Status DC Pharmacy Profile Note 0 ml @ 0 mls/hr UNSCH OTHER ; Start 02/24/17 at 20:15; Stop 03/02/17 at 13:23; Status DC Cefepime HCl 2000 mg/Sodium Chloride 100 ml @ 200 mls/hr Q12H IV Last administered on 02/27/17 05:51; Start 02/25/17 at 07:00; Stop 02/27/17 at 14:53; Status DC Vancomycin HCl 1500 mg/Sodium Chloride 515 ml @ 257.5 mls/ hr Q18H IV Last administered on 02/25/17 10:30; Start 02/25/17 at 10:00; Stop 02/25/17 at 11:30; Status DC Miscellaneous Information SPECIFIC LAB TO BE DRAWN:VANCO TROUGH DATE TO BE DR... ONCE ONCE .XX ; Start 02/26/17 at 21:45; Stop 02/26/17 at 21:46; Status DC Flumazenil (Romazicon Inj) 0.2 mg Q1M PRN IV PUSH SEE LABEL COMMENTS; Start 02/25/17 at 09:15 Lorazepam (Ativan) 1 mg Q4H PRN PO agitation Last administered on 04/23/17 10: 05; Start 02/25/17 at 09:15 Lorazepam (Ativan Inj) 1 mg Q4H PRN IV PUSH agitation when not taking po Last administered on 03/05/17 02:41; Start 02/25/17 at 09:15 Lorazepam (Ativan) 2 mg Q2H PRN PO CIWA 11-14; Start 02/25/17 at 09:15; Stop 02/28/17 at 07:44; Status DC Lorazepam (Ativan Inj) 2 mg Q2H PRN IV PUSH CIWA 11-14 Last administered on 02/26 18:14; Start 02/25/17 at 09:15; Stop 02/28/17 at 07:44; Status DC Lorazepam (Ativan Inj) 2 mg Q1H PRN IV PUSH CIWA 15-20 Last administered on 02/25 21:37; Start 02/25/17 at 09:15; Stop 02/28/17 at 07:44; Status DC Lorazepam (Ativan Inj) 2 mg Q15M PRN IV PUSH CIWA > 20 Last administered on 02/26 06:25; Start 02/25/17 at 09:15; Stop 02/28/17 at 07:44; Status DC Multivitamins (Theragran) 1 tab DAILY PO Last administered on 04/23/17 07:40; Start 02/26/17 at 09:00 Acetaminophen (Tylenol) 650 mg Q4H PRN PO FEVER Last administered on 03/07/17 04:47; Start 02/25/17 at 09:15; Stop 03/12/17 at 10:47; Status DC Lisinopril (Prinivil) 10 mg DAILY PO ; Start 02/26/17 at 09:00; Stop 03/08/17 at 21:09; Status DC Enoxaparin Sodium (Lovenox Inj) 40 mg Q24H SQ Last administered on 03/07/17 10 :00; Start 02/25/17 at 10:00; Stop 03/10/17 at 12:17; Status DC Vancomycin HCl 1500 mg/Sodium Chloride 515 ml @ 257.5 mls/ hr Q12H IV Last administered on 02/26/17 09:42; Start 02/25/17 at 22:00; Stop 02/26/17 at 12:06; Status DC Miscellaneous Information SPECIFIC LAB TO BE BIA... ONCE ONCE .XX Last administered on 02/26/17 09:45; Start 02/26/17 at 09:45; Stop 02/26/17 at 09:46; Status DC Chlordiazepoxide (Librium) 25 mg Q8H PO ; Start 02/25/17 at 17:00; Stop 02/25/17 at 20:24; Status DC Gentamicin Sulfate 70 mg/ Sodium Chloride 101.75 ml @ 100 mls/ hr ONCE ONCE IV Last administered on 02/25/17 18:51; Start 02/25/17 at 18:30; Stop 02/25/17 at 19:31; Status DC Dexmedetomidine HCl 200 mcg/ Sodium Chloride 52 ml @ 0 mls/hr TITRATE IV Last administered on 02/27/17 13:55; Start 02/25/17 at 17:30; Stop 03/09/17 at 23:34; Status DC Acetaminophen (Ofirmev Inj) 650 mg Q6H PRN IV TEMP >101 Last administered on 20:12; Start 02/25/17 at 21:00; Stop 04/17/17 at 08:33; Status DC Iohexol (Omnipaque 350 Inj) 75 ml STK-MED ONCE IV Last administered on 21:15; Start 02/25/17 at 21:15; Stop 02/25/17 at 21:16; Status DC Potassium Chloride 100 ml @ 50 mls/hr Q2H PRN IV For Potassium 2.8 - 3.2 mEq/L ; Start 02/25/17 at 22:45; Stop 03/01/17 at 23:53; Status DC Potassium Chloride 100 ml @ 50 mls/hr Q2H PRN IV For Potassium 2.8 - 3.2 mEq/ L Last administered on 02/28/17t 12:32; Start 02/25/17 at 22:45; Stop 03/01/17 at 23:53; Status DC Potassium Bicarb/ Potassium Chloride (K-Lyte Cl Eff) 50 meq UNSCH PRN PO For Potassium 3.3 - 3.5 mEq/L; Start 02/25/17 at 22:45; Stop 03/01/17 at 23:53; Status DC Potassium Chloride 100 ml @ 25 mls/hr UNSCH PRN IV For Potassium 3.3 - 3.5 mEq /L; Start 02/25/17 at 22:45; Stop 03/01/17 at 23:53; Status DC Potassium Chloride 100 ml @ 50 mls/hr Q2H PRN IV For Potassium 3.3 - 3.5 mEq/ L Last administered on 02/28/17 06:39; Start 02/25/17 at 22:45; Stop 03/01/17 at 23:53; Status DC Magnesium Sulfate 4 gm/Sodium Chloride 100 ml @ 50 mls/hr UNSCH PRN IV For Magnesium 0.9 - 1.1 mg/dL; Start 02/25/17 at 22:45; Stop 03/01/17 at 23:53; Status DC Magnesium Oxide (Mag-Ox) 800 mg UNSCH PRN PO For Magnesium 1.2 - 1.6 mg/dL; Start 02/25/17 at 22:45; Stop 03/01/17 at 23:53; Status DC Magnesium Sulfate 2 gm/Sodium Chloride 100 ml @ 50 mls/hr UNSCH PRN IV For Magnesium 1.2 - 1.6 mg/dL; Start 02/25/17 at 22:45; Stop 03/01/17 at 23:53; Status DC Potassium Phosphate (K-Phos) 2,000 mg Q4H PRN PO For Phosphorus < 2.5 mg/dL; Start 02/25/17 at 22:45; Stop 03/01/17 at 23:53; Status DC Sodium Phosphate 30 mmol/Sodium Chloride 250 ml @ 42 mls/hr UNSCH PRN IV For Phosphorus < 2.5 mg/dL Last administered on 02/26/17 23:19; Start 02/25/17 at 22: 45; Stop 03/01/17 at 23:53; Status DC Potassium Phosphate (K-Phos) 2,000 mg UNSCH PRN PO/TUBE SEE LABEL COMMENTS; Start 02/25/17 at 22:45; Stop 03/01/17 at 23:53; Status DC Potassium Phosphate 30 mmol/ Sodium Chloride 260 ml @ 42 mls/hr UNSCH PRN IV SEE LABEL COMMENTS; Start 02/25/17 at 22:45; Stop 03/01/17 at 23:53; Status DC Labetalol HCl (Trandate Inj) 10 mg Q6H PRN IV PUSH SBP >165; Start 02/25/17 at 23:15 Pantoprazole Sodium (Protonix Inj) 40 mg Q24H IV PUSH Last administered on 04/23 00:36; Start 02/26/17 at 00:00 Miscellaneous Information Patient in critical care unit? Ass... [id number] .XX ; Start 02/26/17 at 07:15 Mupirocin (Bactroban Nasal 2% Oint) 1 applic BID NASAL Last administered on 09:22; Start 02/26/17 at 09:00 Chlorhexidine Gluconate (Chlorhexidine 2% Cloth) 3 pack DAILY@04 TOPICAL Last administered on 03/03/17 04:00; Start 02/27/17 at 04:00; Stop 03/03/17 at 04:01; Status DC Chlorhexidine Gluconate (Chlorhexidine 2% Cloth) 3 pack UNSCH PRN TOPICAL HYGIENIC CARE; Start 02/26/17 at 07:15; Stop 03/03/17 at 07:07; Status DC Lidocaine HCl (Xylocaine 2% Inj) 50 ml STK-MED ONCE .ROUTE ; Start 02/26/17 at 09 :35; Stop 02/26/17 at 09:36; Status DC Bupivacaine HCl (Marcaine Pf 0.5% Inj) 60 ml STK-MED ONCE .ROUTE ; Start at 09:35; Stop 02/26/17 at 09:36; Status DC Mupirocin (Bactroban 2% Oint) 22 applic STK-MED ONCE .ROUTE ; Start 02/26/17 at 09:35; Stop 02/26/17 at 09:36; Status DC Vancomycin HCl 1250 mg/Sodium Chloride 262.5 ml @ 250 mls/hr Q12H IV Last administered on 03/02/17 09:33; Start 02/26/17 at 22:00; Stop 03/02/17 at 13:23; Status DC Miscellaneous Information SPECIFIC LAB TO BE BIA... ONCE ONCE .XX Last administered on 02/27/17 22:46; Start 02/27/17 at 21:45; Stop 02/27/17 at 21:46; Status DC Neomycin/Polymyxin (Neosporin G.u. Irr) 3 ml STK-MED ONCE TOPICAL Last administered on 02/26/17 13:06; Start 02/26/17 at 13:06; Stop 02/26/17 at 16:26; Status DC Neomycin/Polymyxin (Neosporin G.u. Irr) 4 ml STK-MED ONCE TOPICAL Last administered on 02/26/17 15:47; Start 02/26/17 at 15:47; Stop 02/26/17 at 16:26; Status DC Fentanyl Citrate (fentaNYL INJ) 250 mcg STK-MED ONCE .ROUTE ; Start 02/26/17 at 18:16; Stop 02/26/17 at 18:17; Status DC Fentanyl Citrate (fentaNYL INJ) 100 mcg STK-MED ONCE .ROUTE ; Start 02/26/17 at 18:16; Stop 02/26/17 at 18:17; Status DC Miscellaneous Information ALL NURSING DEPARTME... UNSCH PRN .XX SEE LABEL COMMENTS; Start 02/26/17 at 17:57; Stop 02/27/17 at 17:56; Status DC Clonidine (Catapres) 0.3 mg Q8HR PO Last administered on 04/10/17 12:33; Start 02/26/17 at 22:11; Stop 04/10/17 at 12:52; Status DC Diazepam (Valium) 5 mg Taper DAILY PO Last administered on 03/06/17 09:49; Start 02/26/17 at 22:15; Stop 03/06/17 at 22:14; Status DC Water (Free Water) 200 ml Q8HR G-TUBE Last administered on 02/27/17 22:31; Start 02/27/17 at 06:55; Stop 02/28/17 at 07:41; Status DC Rifampin 300 mg/ Sodium Chloride 100 ml @ 100 mls/hr Q12H IV Last administered on 03/02/17 14:41; Start 02/27/17 at 15:00; Stop 03/02/17 at 16:41; Status DC Oxycodone HCl (Roxicodone) 5 mg Q4H PRN PO pain 1-5 Last administered on 09:26; Start 02/28/17 at 07:45; Stop 04/09/17 at 17:08; Status DC Hydromorphone HCl (Dilaudid Pf Inj) 0.5 mg Q3H PRN IV PUSH pain 6-10 or not taking po Last administered on 04/09/17 16:51; Start 02/28/17 at 07:45; Stop at 17:08; Status DC Water (Free Water) 300 ml Q4HR G-TUBE Last administered on 03/02/17 20:00; Start 02/28/17 at 08:00; Stop 03/02/17 at 23:07; Status DC Vancomycin HCl (Vancomycin Inj) 1,000 mg STK-MED ONCE .ROUTE Last administered on 02/28/17 09:01; Start 02/28/17 at 09:01; Stop 02/28/17 at 09:02; Status DC Vancomycin HCl (Vancomycin Inj) 1,000 mg STK-MED ONCE .ROUTE Last administered on 02/28/17 09:33; Start 02/28/17 at 09:33; Stop 02/28/17 at 09:34; Status DC Vancomycin HCl (Vancomycin Inj) 1,000 mg STK-MED ONCE .ROUTE Last administered on 02/28/17 09:36; Start 02/28/17 at 09:33; Stop 02/28/17 at 09:34; Status DC Daptomycin 450 mg/ Sodium Chloride 100 ml @ 200 mls/hr Q24H IV Last administered on 03/05/17 13:41; Start 02/28/17 at 12:00; Stop 03/05/17 at 18:00 ; Status DC Vancomycin HCl (Vancomycin Inj) 1,000 mg STK-MED ONCE .ROUTE Last administered on 02/28/17 10:45; Start 02/28/17 at 10:42; Stop 02/28/17 at 10:43; Status DC Vancomycin HCl (Vancomycin Inj) 500 mg STK-MED ONCE .ROUTE Last administered on 02/28/17 10:45; Start 02/28/17 at 10:42; Stop 02/28/17 at 10:43; Status DC Fentanyl Citrate (fentaNYL INJ) 250 mcg STK-MED ONCE .ROUTE ; Start 02/28/17 at 11:48; Stop 02/28/17 at 11:49; Status DC Miscellaneous Information ALL NURSING DEPARTME... UNSCH PRN .XX SEE LABEL COMMENTS; Start 02/28/17 at 11:33; Stop 03/01/17 at 11:32; Status DC Miscellaneous Information SPECIFIC LAB TO BE BIA... ONCE ONCE .XX ; Start 03/04 at 09:45; Stop 03/04/17 at 09:46; Status Cancel Sodium Chloride 1,000 ml @ 999 mls/hr BOLUS ONCE IV Last administered on 13:28; Start 03/02/17 at 13:15; Stop 03/02/17 at 14:15; Status DC Sodium Chloride 1,000 ml @ 125 mls/hr Q8H IV Last administered on 03/02/17 14: 18; Start 03/02/17 at 13:15; Stop 03/02/17 at 14:30; Status DC Rifampin (Rifampin) 300 mg Q12HR PO Last administered on 03/23/17 08:42; Start 03/02/17 at 21:00; Stop 03/23/17 at 18:40; Status DC Potassium Chloride 20 meq/ Sodium Chloride 38.5 meq/Sterile Water 1,010 ml @ 55 mls/hr [id number] IV Last administered on 03/09/17 22:51; Start 03/03/17 at 11: 00; Stop 03/09/17 at 23:36; Status DC Furosemide (Lasix Inj) 20 mg ONCE ONCE IV PUSH Last administered on 03/03/17 10:19; Start 03/03/17 at 09:30; Stop 03/03/17 at 09:43; Status DC Carvedilol (Coreg) 6.25 mg Q12HR PO Last administered on 04/09/17 08:40; Start 03/03/17 at 21:00; Stop 04/10/17 at 03:26; Status DC Vancomycin HCl (Vancomycin Inj) 1,000 mg STK-MED ONCE .ROUTE Last administered on 03/04/17 15:52; Start 03/04/17 at 15:10; Stop 03/04/17 at 15:11; Status DC Fentanyl Citrate (fentaNYL INJ) 100 mcg STK-MED ONCE .ROUTE ; Start 03/04/17 at 16:38; Stop 03/04/17 at 16:39; Status DC Fentanyl Citrate (fentaNYL INJ) 250 mcg STK-MED ONCE .ROUTE ; Start 03/04/17 at 16:38; Stop 03/04/17 at 16:39; Status DC Vancomycin HCl (Vancomycin Inj) 1,000 mg STK-MED ONCE .ROUTE Last administered on 03/04/17 16:52; Start 03/04/17 at 16:59; Stop 03/04/17 at 17:00; Status DC Fentanyl Citrate (fentaNYL INJ) 100 mcg STK-MED ONCE .ROUTE ; Start 03/04/17 at 18:24; Stop 03/04/17 at 18:25; Status DC Fentanyl Citrate (fentaNYL INJ) 250 mcg STK-MED ONCE .ROUTE ; Start 03/04/17 at 18:25; Stop 03/04/17 at 18:26; Status DC Miscellaneous Information ALL NURSING DEPARTME... UNSCH PRN .XX SEE LABEL COMMENTS; Start 03/04/17 at 19:15; Stop 03/05/17 at 19:14; Status DC Daptomycin 550 mg/ Sodium Chloride 100 ml @ 200 mls/hr Q24H IV Last administered on 04/22/17 12:15; Start 03/06/17 at 12:00 Bisacodyl (Dulcolax Supp) 10 mg DAILY PRN RECTAL SEVERE CONSITIPATION; Start at 21:00 Lactulose (Lactulose Liq) 30 ml DAILY PRN NG SEVERE CONSITIPATION Last administered on 03/07/17 18:45; Start 03/06/17 at 21:00 Docusate Sodium (Colace Liq) 100 mg Q12HR PO Last administered on 03/09/17 09: 30; Start 03/06/17 at 21:15; Status Future Hold Sodium Chloride 250 ml @ 15 mls/hr ONCE ONCE IV Last administered on 00:27; Start 03/07/17 at 19:00; Stop 03/08/17 at 12:06; Status DC Furosemide (Lasix Inj) 20 mg ONCE ONCE IV Last administered on 03/08/17 03:49 ; Start 03/07/17 at 19:00; Stop 03/07/17 at 19:01; Status DC Polyethylene Glycol/ Electrolytes (Colyte Liq) 4,000 ml ONCE ONCE PO ; Start at 11:00; Stop 03/08/17 at 11:01; Status Cancel Mupirocin (Bactroban 2% Oint) 22 applic STK-MED ONCE .ROUTE ; Start 03/08/17 at 12:10; Stop 03/08/17 at 12:11; Status DC Lidocaine HCl (Xylocaine 2% Inj) 50 ml STK-MED ONCE .ROUTE ; Start 03/08/17 at 12:13; Stop 03/08/17 at 12:14; Status DC Bupivacaine HCl (Marcaine Pf 0.5% Inj) 30 ml STK-MED ONCE .ROUTE ; Start at 12:17; Stop 03/08/17 at 12:18; Status DC Famotidine (Pepcid Inj) 20 mg STK-MED ONCE .ROUTE ; Start 03/08/17 at 13:17; Stop 03/08/17 at 13:18; Status DC Vancomycin HCl (Vancomycin Inj) 1,000 mg STK-MED ONCE .ROUTE Last administered on 03/08/17 14:35; Start 03/08/17 at 14:07; Stop 03/08/17 at 14:08; Status DC Sodium Chloride (Sodium Chloride 0.9% Inj) 20 ml STK-MED ONCE .ROUTE ; Start at 14:07; Stop 03/08/17 at 14:08; Status DC Vancomycin HCl (Vancomycin Inj) 1,000 mg STK-MED ONCE .ROUTE ; Start 03/08/17 at 14:42; Stop 03/08/17 at 14:43; Status DC Sodium Chloride (Sodium Chloride 0.9% Inj) 20 ml STK-MED ONCE .ROUTE ; Start at 14:42; Stop 03/08/17 at 14:43; Status DC Fentanyl Citrate (fentaNYL INJ) 500 mcg STK-MED ONCE .ROUTE ; Start 03/08/17 at 15:51; Stop 03/08/17 at 15:52; Status DC Miscellaneous Information ALL NURSING DEPARTME... UNSCH PRN .XX SEE LABEL COMMENTS; Start 03/08/17 at 15:40; Stop 03/09/17 at 15:39; Status DC Polyethylene Glycol/ Electrolytes (Colyte Liq) 4,000 ml ONCE ONCE NG Last administered on 03/08/17 22:42; Start 03/08/17 at 20:00; Stop 03/08/17 at 20:01 ; Status DC Lisinopril (Prinivil) 2.5 mg DAILY PO Last administered on 04/22/17 09:21; Start 03/09/17 at 09:00 Miscellaneous (Pill Splitter) 1 ea UNSCH PRN OTHER SEE LABEL COMMENTS; Start at 21:15 Dextrose 1,000 ml @ 84 mls/hr [id number] IV Last administered on 03/11/17 21:24 ; Start 03/09/17 at 23:45; Stop 03/11/17 at 23:38; Status DC Enoxaparin Sodium (Lovenox Inj) 40 mg Q24H SQ Last administered on 04/22/17 12 :15; Start 03/10/17 at 13:00; Status Future hold Bupivacaine HCl (Marcaine Pf 0.5% Inj) 30 ml STK-MED ONCE .ROUTE ; Start at 14:50; Stop 03/10/17 at 14:51; Status DC Lidocaine HCl (Xylocaine 2% Inj) 50 ml STK-MED ONCE .ROUTE ; Start 03/10/17 at 14:51; Stop 03/10/17 at 14:52; Status DC Bacitracin (Baciguent Oint) 15 applic STK-MED ONCE .ROUTE Last administered on 03/10/17 16:43; Start 03/10/17 at 14:51; Stop 03/10/17 at 14:52; Status DC Vancomycin HCl (Vancomycin Inj) 1,000 mg STK-MED ONCE .ROUTE Last administered on 03/10/17 15:49; Start 03/10/17 at 15:45; Stop 03/10/17 at 15:46; Status DC Sodium Chloride (Sodium Chloride 0.9% Inj) 20 ml STK-MED ONCE .ROUTE ; Start at 15:45; Stop 03/10/17 at 15:46; Status DC Neomycin/Polymyxin (Neosporin G.u. Irr) 2 ml STK-MED ONCE TOPICAL Last administered on 03/10/17 15:49; Start 03/10/17 at 15:49; Stop 03/10/17 at 15:59 ; Status DC Bacitracin (Baciguent Oint) 30 applic STK-MED ONCE .ROUTE Last administered on 03/10/17 16:44; Start 03/10/17 at 16:41; Stop 03/10/17 at 16:42; Status DC Hydromorphone HCl (Dilaudid Pf Inj) 2 mg STK-MED ONCE .ROUTE ; Start 03/10/17 at 16:47; Stop 03/10/17 at 16:48; Status DC Fentanyl Citrate (fentaNYL INJ) 250 mcg STK-MED ONCE .ROUTE ; Start 03/10/17 at 17:22; Stop 03/10/17 at 17:23; Status DC Morphine Sulfate (*morphine INJ PERIprocedure ONLY) 8 mg STK-MED ONCE .ROUTE Last administered on 03/10/17 18:12; Start 03/10/17 at 18:12; Stop 03/10/17 at 18:13; Status DC Miscellaneous Information ALL NURSING DEPARTME... UNSCH PRN .XX SEE LABEL COMMENTS; Start 03/10/17 at 14:30; Stop 03/11/17 at 14:29; Status DC Propofol (Diprivan 200 Mg/20 ml Inj) 200 mg STK-MED ONCE IV PUSH ; Start at 15:29; Stop 03/11/17 at 15:47; Status DC Oxybenzone/ Padimate O/ Dimethicone (Blistex Lip [place]) 4.25 applic STK-MED ONCE TOPICAL Last administered on 03/11/17 16:02; Start 03/11/17 at 16:02; Stop at 16:03; Status DC Miscellaneous Information ALL NURSING DEPARTME... UNSCH PRN .XX SEE LABEL COMMENTS; Start 03/11/17 at 16:00; Stop 03/12/17 at 15:59; Status DC Succinylcholine Chloride (Quelicin Inj) 200 mg STK-MED ONCE IV PUSH ; Start at 15:27; Stop 03/12/17 at 08:59; Status DC Sodium Chloride 250 ml @ 15 mls/hr ONCE ONCE IV Last administered on 10:15; Start 03/12/17 at 10:15; Stop 03/13/17 at 02:54; Status DC Acetaminophen (Tylenol) 650 mg Q4H PRN PO SEE LABEL COMMENTS; Start 03/12/17 at 10:15; Stop 03/12/17 at 14:16; Status DC Diphenhydramine HCl (Benadryl) 25 mg Q4H PRN PO SEE LABEL COMMENTS; Start 03/12 at 10:15; Stop 03/12/17 at 14:16; Status DC Potassium Chloride 100 ml @ 50 mls/hr Q2H IV Last administered on 03/12/17 13 :25; Start 03/12/17 at 11:00; Stop 03/12/17 at 14:59; Status DC Lidocaine HCl (Xylocaine 2% Inj) 50 ml STK-MED ONCE .ROUTE ; Start 03/12/17 at 13:04; Stop 03/12/17 at 13:05; Status DC Mupirocin (Bactroban 2% Oint) 22 applic STK-MED ONCE .ROUTE ; Start 03/12/17 at 13:06; Stop 03/12/17 at 13:07; Status DC Hydromorphone HCl (Dilaudid Pf Inj) 2 mg STK-MED ONCE .ROUTE ; Start 03/12/17 at 15:18; Stop 03/12/17 at 15:19; Status DC Acetaminophen (Ofirmev Inj) 1,000 mg STK-MED ONCE IV ; Start 03/12/17 at 15:18; Stop 03/12/17 at 15:19; Status DC Vancomycin HCl (Vancomycin Inj) 1,000 mg STK-MED ONCE .ROUTE Last administered on 03/12/17 15:54; Start 03/12/17 at 15:57; Stop 03/12/17 at 15:58; Status DC Neomycin/Polymyxin (Neosporin G.u. Irr) 2 ml STK-MED ONCE TOPICAL Last administered on 03/12/17 15:54; Start 03/12/17 at 15:54; Stop 03/12/17 at 16:15 ; Status DC Fentanyl Citrate (fentaNYL INJ) 250 mcg STK-MED ONCE .ROUTE ; Start 03/12/17 at 17:04; Stop 03/12/17 at 17:05; Status DC Miscellaneous Information ALL NURSING DEPARTME... UNSCH PRN .XX SEE LABEL COMMENTS; Start 03/12/17 at 17:30; Stop 03/13/17 at 17:29; Status DC Morphine Sulfate (*morphine INJ PERIprocedure ONLY) 8 mg STK-MED ONCE .ROUTE Last administered on 03/12/17 17:33; Start 03/12/17 at 17:33; Stop 03/12/17 at 17:34; Status DC Lidocaine HCl (Xylocaine 1% Inj) 10 ml ONCE@0700 ONCE OTHER ; Start 03/13/17 at 07:00; Stop 03/13/17 at 07:01; Status DC Potassium Chloride/Sodium Chloride 1,000 ml @ 75 mls/hr [id number] IV Last administered on 04/07/17 10:54; Start 03/13/17 at 11:30; Stop 04/07/17 at 13:42 ; Status DC Polyethylene Glycol/ Electrolytes (Colyte Liq) 4,000 ml ONCE ONCE PEG Last administered on 03/14/17 17:13; Start 03/14/17 at 16:00; Stop 03/14/17 at 16:01 ; Status DC Sodium Chloride 250 ml @ 15 mls/hr ONCE ONCE IV Last administered on 21:30; Start 03/13/17 at 20:00; Stop 03/14/17 at 12:39; Status DC Polyethylene Glycol/ Electrolytes (Colyte Liq) 4,000 ml ONCE ONCE PO Last administered on 03/15/17 17:19; Start 03/15/17 at 16:45; Stop 03/15/17 at 16:48 ; Status DC Propofol (Diprivan 200 Mg/20 ml Inj) 180 mg ONCE ONCE IV Last administered on 03/15/17 16:45; Start 03/15/17 at 16:43; Stop 03/15/17 at 16:45; Status DC Sodium Biphosphate/ Sodium Phosphate (Fleets Enema (Adult)) 133 ml ONCE ONCE RECTAL Last administered on 03/16/17 14:45; Start 03/16/17 at 14:15; Stop at 14:21; Status DC Sodium Biphosphate/ Sodium Phosphate (Fleets Enema (Adult)) 133 ml ONCE ONCE RECTAL Last administered on 03/17/17 09:49; Start 03/17/17 at 08:00; Stop at 08:01; Status DC Propofol (Diprivan 200 Mg/20 ml Inj) 100 mg ONCE ONCE IV PUSH ; Start at 15:00; Stop 03/16/17 at 15:01; Status DC Midazolam HCl (Versed Inj) 2 mg STK-MED ONCE .ROUTE ; Start 03/16/17 at 15:34; Stop 03/16/17 at 15:35; Status DC Vancomycin HCl (Vancomycin Inj) 1,000 mg STK-MED ONCE .ROUTE Last administered on 03/18/17 18:58; Start 03/18/17 at 18:15; Stop 03/18/17 at 18:16; Status DC Fentanyl Citrate (fentaNYL INJ) 200 mcg STK-MED ONCE .ROUTE ; Start 03/18/17 at 19:50; Stop 03/18/17 at 19:51; Status DC Methocarbamol (Robaxin) 500 mg Q8HR PO Last administered on 04/14/17 05:25; Start 03/19/17 at 14:00; Stop 04/14/17 at 12:13; Status DC Acetaminophen 100 ml @ As Directed STK-MED ONCE IV ; Start 03/24/17 at 09:21; Stop 03/24/17 at 09:22; Status DC Midazolam HCl (Versed Inj) 2 mg STK-MED ONCE .ROUTE ; Start 03/24/17 at 09:21; Stop 03/24/17 at 09:22; Status DC Fentanyl Citrate (fentaNYL INJ) 100 mcg STK-MED ONCE .ROUTE ; Start 03/24/17 at 09:21; Stop 03/24/17 at 09:22; Status DC Fentanyl Citrate (fentaNYL INJ) 100 mcg STK-MED ONCE .ROUTE ; Start 03/24/17 at 09:21; Stop 03/24/17 at 09:22; Status DC Hydromorphone HCl (*DILAUDID PF INJ PERIprocedural ONLY) 1 mg STK-MED ONCE .ROUTE Last administered on 03/24/17 14:53; Start 03/24/17 at 14:53; Stop at 14:54; Status DC Meperidine HCl (*DEMEROL INJ PERIprocedural ONLY) 25 mg STK-MED ONCE .ROUTE Last administered on 03/24/17 15:01; Start 03/24/17 at 15:01; Stop 03/24/17 at 15:02; Status DC Fentanyl Citrate (fentaNYL INJ) 400 mcg STK-MED ONCE .ROUTE ; Start 03/24/17 at 15:01; Stop 03/24/17 at 15:02; Status DC Miscellaneous Information ALL NURSING DEPARTME... UNSCH PRN .XX SEE LABEL COMMENTS; Start 03/24/17 at 14:52; Stop 03/25/17 at 14:51; Status DC Polyethylene Glycol (Miralax) 17 gm DAILY PO ; Start 03/24/17 at 16:30; Status Cancel Acetaminophen (Tylenol) 650 mg Q4H PRN PO fever Last administered on 03/25/17 10:02; Start 03/25/17 at 10:00 Piperacillin Sod/ Tazobactam Sod 100 ml @ 200 mls/hr Q8H IV Last administered on 03/29/17 12:36; Start 03/25/17 at 20:00; Stop 03/29/17 at 14:34; Status DC Furosemide (Lasix Inj) 10 mg ONCE ONCE IV PUSH Last administered on 03/26/17 13:47; Start 03/26/17 at 13:30; Stop 03/26/17 at 13:34; Status DC Furosemide (Lasix Inj) 10 mg UNSCH X1 IV PUSH Last administered on 03/27/17 01 :31; Start 03/26/17 at 17:15; Stop 03/26/17 at 23:59; Status DC Levothyroxine Sodium (Synthroid) 50 mcg DAILY@0600 PO Last administered on 04/23 06:06; Start 03/30/17 at 06:00 Levothyroxine Sodium (Synthroid) 50 mcg ONCE ONCE PO Last administered on t 12:55; Start 03/29/17 at 12:00; Stop 03/29/17 at 12:02; Status DC Levofloxacin (Levaquin) 500 mg DAILY PO Last administered on 04/07/17t 08:46; Start 03/29/17 at 14:45; Stop 04/07/17 at 14:44; Status DC Propofol (Diprivan 200 Mg/20 ml Inj) 200 mg STK-MED ONCE IV ; Start 02/26/17 at 12:00; Stop 03/30/17 at 13:17; Status DC Neostigmine Methylsulfate (Prostigmin Inj) 3 mg STK-MED ONCE IV ; Start 02/26/17 at 12:00; Stop 03/30/17 at 13:17; Status DC Phenylephrine HCl (Neosynephrine/ NS 1000 Mcg/10ml Syr) 1,000 mcg STK-MED ONCE IV ; Start 02/26/17 at 12:00; Stop 03/30/17 at 13:17; Status DC Lactated Ringer's 2,000 ml @ As Directed STK-MED ONCE IV ; Start 02/26/17 at 12: 00; Stop 03/30/17 at 13:17; Status DC Propofol (Diprivan 200 Mg/20 ml Inj) 200 mg STK-MED ONCE IV ; Start 02/28/17 at 12:00; Stop 03/30/17 at 13:46; Status DC Neostigmine Methylsulfate (Prostigmin Inj) 3 mg STK-MED ONCE IV ; Start 02/28/17 at 12:00; Stop 03/30/17 at 13:46; Status DC Lactated Ringer's 2,000 ml @ As Directed STK-MED ONCE IV ; Start 02/28/17 at 12: 00; Stop 03/30/17 at 13:46; Status DC Propofol (Diprivan 200 Mg/20 ml Inj) 400 mg STK-MED ONCE IV ; Start 03/04/17 at 12:00; Stop 03/30/17 at 14:07; Status DC Ephedrine Sulfate (ePHEDrine/NS 25 MG/5 ML SYR) 25 mg STK-MED ONCE IV ; Start at 12:00; Stop 03/30/17 at 14:07; Status DC Phenylephrine HCl (Neosynephrine/ NS 1000 Mcg/10ml Syr) 2,000 mcg STK-MED ONCE IV ; Start 03/04/17 at 12:00; Stop 03/30/17 at 14:08; Status DC Ondansetron HCl (Zofran Inj) 4 mg STK-MED ONCE IV PUSH ; Start 03/04/17 at 12:00 ; Stop 03/30/17 at 14:08; Status DC Propofol (Diprivan 200 Mg/20 ml Inj) 200 mg STK-MED ONCE IV ; Start 03/08/17 at 12:00; Stop 03/30/17 at 14:49; Status DC Ephedrine Sulfate (ePHEDrine/NS 25 MG/5 ML SYR) 50 mg STK-MED ONCE IV ; Start at 12:00; Stop 03/30/17 at 14:49; Status DC Neostigmine Methylsulfate (Prostigmin Inj) 4 mg STK-MED ONCE IV ; Start at 12:00; Stop 03/30/17 at 14:49; Status DC Phenylephrine HCl (Neosynephrine/ NS 1000 Mcg/10ml Syr) 1,000 mcg STK-MED ONCE IV ; Start 03/08/17 at 12:00; Stop 03/30/17 at 14:49; Status DC Ondansetron HCl (Zofran Inj) 4 mg STK-MED ONCE IV PUSH ; Start 03/08/17 at 12:00 ; Stop 03/30/17 at 14:49; Status DC Lactated Ringer's 1,000 ml @ As Directed STK-MED ONCE IV ; Start 03/08/17 at 12 :00; Stop 03/30/17 at 14:49; Status DC Propofol (Diprivan 200 Mg/20 ml Inj) 200 mg STK-MED ONCE IV ; Start 03/10/17 at 12:00; Stop 03/30/17 at 15:08; Status DC Ephedrine Sulfate (ePHEDrine/NS 25 MG/5 ML SYR) 25 mg STK-MED ONCE IV ; Start at 12:00; Stop 03/30/17 at 15:08; Status DC Neostigmine Methylsulfate (Prostigmin Inj) 3 mg STK-MED ONCE IV ; Start at 12:00; Stop 03/30/17 at 15:08; Status DC Phenylephrine HCl (Neosynephrine/ NS 1000 Mcg/10ml Syr) 2,000 mcg STK-MED ONCE IV ; Start 03/10/17 at 12:00; Stop 03/30/17 at 15:08; Status DC Ondansetron HCl (Zofran Inj) 4 mg STK-MED ONCE IV PUSH ; Start 03/10/17 at 12:00 ; Stop 03/30/17 at 15:08; Status DC Lactated Ringer's 1,000 ml @ As Directed STK-MED ONCE IV ; Start 03/10/17 at 12 :00; Stop 03/30/17 at 15:08; Status DC Sodium Chloride 1,000 ml @ As Directed STK-MED ONCE IV ; Start 03/10/17 at 12: 00; Stop 03/30/17 at 15:08; Status DC Propofol (Diprivan 200 Mg/20 ml Inj) 200 mg STK-MED ONCE IV ; Start 03/12/17 at 12:00; Stop 03/30/17 at 15:20; Status DC Ephedrine Sulfate (ePHEDrine/NS 25 MG/5 ML SYR) 25 mg STK-MED ONCE IV ; Start at 12:00; Stop 03/30/17 at 15:20; Status DC Phenylephrine HCl (Neosynephrine/ NS 1000 Mcg/10ml Syr) 1,000 mcg STK-MED ONCE IV ; Start 03/12/17 at 12:00; Stop 03/30/17 at 15:20; Status DC Ondansetron HCl (Zofran Inj) 4 mg STK-MED ONCE IV PUSH ; Start 03/12/17 at 12:00 ; Stop 03/30/17 at 15:20; Status DC Lactated Ringer's 1,000 ml @ As Directed STK-MED ONCE IV ; Start 03/12/17 at 12 :00; Stop 03/30/17 at 15:20; Status DC Propofol (Diprivan 200 Mg/20 ml Inj) 200 mg STK-MED ONCE IV ; Start 03/18/17 at 12:00; Stop 03/30/17 at 15:38; Status DC Ondansetron HCl (Zofran Inj) 4 mg STK-MED ONCE IV PUSH ; Start 03/18/17 at 12:00 ; Stop 03/30/17 at 15:38; Status DC Neostigmine Methylsulfate (Prostigmin Inj) 3 mg STK-MED ONCE IV ; Start at 12:00; Stop 03/30/17 at 15:38; Status DC Phenylephrine HCl (Neosynephrine/ NS 1000 Mcg/10ml Syr) 1,000 mcg STK-MED ONCE IV ; Start 03/18/17 at 12:00; Stop 03/30/17 at 15:38; Status DC Oxycodone/ Acetaminophen (Percocet 5-325 Mg) 1 tab Q4H PRN PO pain 3 to 5; Start 04/02/17 at 13:00; Stop 04/09/17 at 17:08; Status DC Oxycodone/ Acetaminophen (Percocet 10-325 Mg) 1 tab Q4H PRN PO pain 6-10 Last administered on 04/09/17 14:14; Start 04/02/17 at 13:00; Stop 04/09/17 at 17:08 ; Status DC Magnesium Sulfate/ Dextrose 100 ml @ 100 mls/hr Q1H IV Last administered on 16:15; Start 04/03/17 at 14:00; Stop 04/03/17 at 15:59; Status DC Sodium Chloride (Sodium Chloride) 1 gm TID PO Last administered on 04/07/17 13 :24; Start 04/04/17 at 14:00; Stop 04/07/17 at 13:45; Status DC Calcium Chloride 2 gm/Sodium Chloride 120 ml @ 120 mls/hr ONCE ONCE IV Last administered on 04/04/17 15:45; Start 04/04/17 at 14:00; Stop 04/04/17 at 14:59 ; Status DC Hydromorphone HCl (Dilaudid Pf Inj) 0.2 mg Q6H PRN IV PUSH breakthrough pain Last administered on 04/13/17 03:27; Start 04/09/17 at 17:15; Stop 04/13/17 at 03:27; Status DC Acetaminophen/ Hydrocodone Bitart ([place] 7.5-325 Mg) 1 tab Q4H PRN PO PAIN 6- 10 Last administered on 04/23/17 10:06; Start 04/09/17 at 17:15 Acetaminophen/ Hydrocodone Bitart ([place] 5-325 Mg) 1 tab Q4H PRN PO PAIN 3-5 Last administered on 04/18/17 01:26; Start 04/09/17 at 17:15 Tolvaptan (Samsca) 15 mg ONCE ONCE PO Last administered on 04/09/17 22:49; Start 04/09/17 at 19:30; Stop 04/09/17 at 19:32; Status DC Carvedilol (Coreg) 6.25 mg Q12HR PO Last administered on 04/22/17 20:38; Start 04/10/17 at 09:00 Clonidine (Catapres) 0.2 mg Q8H PO Last administered on 04/23/17 04:44; Start 04/10/17 at 20:00 Methocarbamol (Robaxin) 750 mg Q8HR PO Last administered on 04/23/17 06:06; Start 04/14/17 at 14:00 Sodium Chloride (Sodium Chloride) 1 gm TID PO Last administered on 04/23/17 07 :40; Start 04/18/17 at 13:00 Demeclocycline HCl (Declomycin) 300 mg Q12HR PO Last administered on 04/23/17 07:41; Start 04/18/17 at 11:45 Furosemide (Lasix Inj) 20 mg ONCE ONCE IV PUSH Last administered on 04/19/17 17:39; Start 04/19/17 at 17:15; Stop 04/19/17 at 17:16; Status DC Hydrocortisone (Corticaine 0.5% Cream) 1 applic BID PRN TOPICAL ITCHING; Start 04/22/17 at 16:00; Stop 04/22/17 at 16:36; Status DC Hydrocortisone (Hydrocortisone 1% Cream) 1 applic BID PRN TOPICAL ITCHING Last administered on 04/22/17 17:14; Start 04/22/17 at 17:00 A/P Assessment and Plan A/P Hyponatremia-slowly improving. continue fluid restriction. patient previously received Tolvaptan- started on sodium tablet and Demeclocycline. nephrology following. monitor the sodium level closely. 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 distant showering of emboli to other joints. MRSA bacteremia Right ankle hardware infection, s/p partial removal of hardware. Deeper hardware embedded. SP RIGHT BKA Bilateral UE hand abscess and tenosynovitis, septic arthritis s.p multiple debridements. continue Daptomycin till 04/24/17 per ID Continue pain control. ID following Multiple surgeries thus far: - podiatry Dr. Reyes/Dr. Gamez on 02/26, 02/28, 03/04 - hand surgeon Dr. Bullock on 02/26, 02/28, 03/04, 03/08, 03/10 -right BKA Anemia Follow CBC Status post blood transfusion Acute Toxic/Metabolic Encephalopathy secondary to Sepsis-improved. Acute Alcohol Withdrawal - improved Hypertension Continue clonidine and Coreg, cardiology initiated low dose lisinopril, monitor renal function Follow blood pressures Adjust as needed for control chronic Systolic CHF Scrotal edema EF of 40-45% with global hypokinesis found on 02/28/17 Continue beta amarjit and lisinopril Hypothyroidism continue synthroid THADDEUS mostly vanco induced - resolved Monitor renal function Avoid nephrotoxins Previous event was likely secondary to ATN Hepatitis C- f/u as outpatient. Standard precautions DVT Prophylaxis Lovenox Discharge Planning awaiting ID recommendation- discharge when cleared by ID and sodium level stable. Flaca Houser MD Apr 23, 2017 10:26
[2017-04-23 12:00] VITALS: BP 124/62; PULSE 84; RESP 18; TEMP 97.4; O2SAT 98
[2017-04-23] MEDS: DAPTOMYCIN IV SCH (12:07)
[2017-04-23] MEDS: SODIUM CHLORIDE 0.9% IV SCH (12:07)
[2017-04-23] MEDS: ENOXAPARIN SODIUM 40 MG/0.4 ML SYRINGE SQ SCH (12:08)
--- NOTE | 2017-04-23 15:46 | HHI.NPPN ---
Subjective History of Present Illness 61 year old male with past medical history of hypertension, history of being homeless. He was admitted on February 25 with altered mental status and leukocytosis. I was called to see the patient because of elevated BUN and creatinine. Additional Remarks Patient is alert, no SOB, feeling better, eating well and following fluid restriction. Objective Data Data 04/23/17 04/24/17 19:00 07:00 Intake Total 100 ml Balance 100 ml IV Total 100 ml Vital Signs Date Time Temp Pulse Resp B/P (MAP) Pulse Ox O2 Delivery O2 Flow Rate FiO2 04/23/17 12:00 97.4 84 18 124/62 (82) 98 04/23/17 08:00 97.7 65 18 98/56 (70) 97 04/23/17 07:44 Room Air 04/23/17 04:00 98.2 59 18 115/60 (78) 98 04/23/17 04:00 Room Air 04/23/17 00:10 98.4 67 18 129/68 (88) 98 04/23/17 00:00 Room Air 04/22/17 20:00 98.6 70 20 141/75 (97) 98 04/22/17 20:00 Room Air 04/22/17 16:00 97.6 69 16 121/69 (86) 97 -: 04/20/17 0709 04/23/17 0817 Physical Exam General Appearance: No Acute Distress, Anxious Eyes Eye Exam: Pupils Equal Throat Throat Exam: Oral Mucosa [place] & Moist Neck Neck Exam: Neck Supple Pulmonary Resp Exam: Breath Sounds Equal, No Distress, Rhonchi, Decreased Bases Cardiology CV Exam: Regular, Normal Sinus Rhythm Gastrointestinal/Abdomen GI Exam: Soft, Non-Tender, Bowel Sounds Present Extremeties Extremities Exam: Trace Edema Neurologic Neuro Exam: Alert, Awake Assessment/Plan Assessment Summary: THADDEUS/Acute Renal Failure Problem List: (1) Encephalopathy ICD Codes: G93.40 - Encephalopathy, unspecified Status: Acute (2) Essential hypertension ICD Codes: I10 - Essential (primary) hypertension Status: Acute (3) Hepatitis C, chronic ICD Codes: B18.2 - Chronic viral hepatitis C Status: Chronic (4) Abscess of right hand including fingers ICD Codes: L02.511 - Cutaneous abscess of right hand Status: Chronic (5) Abscess of left hand including fingers ICD Codes: L02.512 - Cutaneous abscess of left hand Status: Chronic (6) Alcoholism ICD Codes: F10.20 - Alcohol dependence, uncomplicated Status: Chronic (7) CHF (congestive heart failure) ICD Codes: I50.9 - Heart failure, unspecified Status: Acute (8) Sepsis ICD Codes: A41.9 - Sepsis, unspecified organism Status: Acute (9) ARF (acute renal failure) ICD Codes: N17.9 - Acute kidney failure, unspecified Status: Acute Plan Patient has Acute kidney injury and Creatinine now normalized. Na. improved after given one dose of Samsca on 04/09. Has elevated urine Osmolality in past, possible SIADH. Clinically euvolemic. Need to continue fluid restriction. On NaCl, and Declomycin. Since Na. is slowly improving, will hold Samsca again. Na. is now 127. Problem Qualifiers (1) Sepsis: Diane Barker MD Apr 23, 2017 15:46
[2017-04-23 16:00] VITALS: BP 123/71; PULSE 69; RESP 18; TEMP 99.7; O2SAT 98
--- NOTE | 2017-04-23 16:14 | HHI.PR ---
Subjective Remarks follow up multiple debridements right hand/wrist and forearm and closure no fever complains of no pain denies any tingling or numbness patient has been performing therapy by himself Objective Vital Signs Date Time Temp Pulse Resp B/P (MAP) Pulse Ox O2 Delivery O2 Flow Rate FiO2 04/23/17 12:00 97.4 84 18 124/62 (82) 98 04/23/17 08:00 97.7 65 18 98/56 (70) 97 04/23/17 07:44 Room Air 04/23/17 04:00 98.2 59 18 115/60 (78) 98 04/23/17 04:00 Room Air 04/23/17 00:10 98.4 67 18 129/68 (88) 98 04/23/17 00:00 Room Air 04/22/17 20:00 98.6 70 20 141/75 (97) 98 04/22/17 20:00 Room Air I/O 04/22/17 04/22/17 04/22/17 04/23/17 04/23/17 04/23/17 06:59 14:59 22:59 06:59 14:59 22:59 Intake Total 720 ml 100 ml 480 ml 100 ml Output Total 800 ml 450 ml 1025 ml Balance -80 ml 100 ml 30 ml -1025 ml 100 ml Intake Oral 720 ml 480 ml IV Total 100 ml 100 ml Output Urine Total 800 ml 450 ml 1025 ml # Bowel Movements 0 0 right hand and wrist: scabs remaining over the wrist and hand no signs of infection not able to actively extend the thumb range of motion of wrist is painless and full able to make a full fist with his fingers Result Diagram: 04/20/17 0709 04/23/17 0817 Assessment and Plan Assessment and Plan 61 year old male s/p incision and drainage, arthrotomy bilateral index finger MP joints, extensor tenosynovectomy s/p closure plan new dressing applied to protect the scab range of motion exercises cleared for discharge from hand surgery antibiotics based on ID recommendations follow in office in 1-2 weeks time. Roque Bullock MD Apr 23, 2017 16:14
--- NOTE | 2017-04-23 17:09 | HHI.IDPN ---
Subjective Subjective Remarks is a 61 y/o CM with PMHx of right foot hardware, hypertension, alcoholism, Hepatitis C who was admitted with sepsis, acute metabolic encephalopathy ? DTs. Removal of hardware from r. ankle 02/27. Noted to have a pocket of pus adjacent to and in contact with the hardware. Could not remove all of hardware. Subsequently underwent BKA of right leg. Culture form both index fingers has MRSA. R ankle culture - and distal fibula 02/26, 02/28 MRSA. Blood culture 02/24, 02/25, 02/27 - MRSA. 2D ECHO - No vegetations noted. Overnight events reviewed. No fevers No rash No diarrhea Antibiotics Dapto IV Lines Line sites with no e.o infection Past Medical History hypertension alcoholism Hepatitis C right foot surgery with hardware in place. right AKA Allergies: Coded Allergies: ciprofloxacin (Unverified Adverse Reaction, Intermediate, Dizziness, ) *MDRO Multi-Drug Resistant Organism (Verified Adverse Reaction, Unknown, ) MRSA (blood)+(urine) 02/24/17, (blood) 02/25/17, 02/27/17 (finger,ankle,leg) 02/26/17, 02/28/17 MRSA PCR screen positive 02/25/17 Objective . Vital Signs Date Time Temp Pulse Resp B/P (MAP) Pulse Ox O2 Delivery O2 Flow Rate FiO2 04/23/17 16:00 99.7 69 18 123/71 (88) 98 04/23/17 12:00 97.4 84 18 124/62 (82) 98 04/23/17 08:00 97.7 65 18 98/56 (70) 97 04/23/17 07:44 Room Air 04/23/17 04:00 98.2 59 18 115/60 (78) 98 04/23/17 04:00 Room Air 04/23/17 00:10 98.4 67 18 129/68 (88) 98 04/23/17 00:00 Room Air 04/22/17 20:00 98.6 70 20 141/75 (97) 98 04/22/17 20:00 Room Air 04/23/17 04/23/17 04/24/17 15:00 23:00 07:00 Intake Total 100 ml Balance 100 ml IV Total 100 ml . Laboratory Tests Test 04/22/17 14:34 04/23/17 08:17 Blood Urea Nitrogen 13 MG/DL Creatinine 0.66 MG/DL Random Glucose 114 MG/DL Calcium Level 8.2 MG/DL Sodium Level 126 MEQ/L 127 MEQ/L Potassium Level 4.3 MEQ/L Chloride Level 95 MEQ/L Carbon Dioxide Level 24.4 MEQ/L Anion Gap 7 MEQ/L Estimat Glomerular Filtration Rate 122 ML/MIN Imaging Last Impressions Chest X-Ray 03/02/17 0000 Signed Impressions: Service Date/Time: Thursday, March 02, 2017 13:26 - CONCLUSION: Interval develop of a small left-sided pleural effusion. Pulmonary venous congestion. Edenilson Oviedo MD Lower Extremity CT 03/01/17 0000 Signed Impressions: Service Date/Time: Wednesday, March 01, 2017 11:12 - CONCLUSION: 1. No evidence of organized fluid collections to suggest an abscess. 2. Extensive soft tissue swelling surrounding the ankle and extending to the forefoot especially along the lateral aspect. 3. No erosive or destructive bone changes. 4. Bone defects compatible with previous excision device. Blake Rider MD Ankle X-Ray 02/26/17 0000 Signed Impressions: Service Date/Time: Sunday, February 26, 2017 17:15 - CONCLUSION: I see no retained surgical instruments. Isaac Stevenson MD FACR Abdomen X-Ray 02/26/17 0000 Signed Impressions: Service Date/Time: Monday, February 27, 2017 00:36 - CONCLUSION: Nasogastric tube within the stomach Harry Lucio MD Upper Extremity Ultrasound 02/25/17 1734 Signed Impressions: Service Date/Time: February 17:54 - CONCLUSION: There is a thin fluid collection within the focal area of soft tissue swelling 2nd digit. Oscar Cassidy MD Hand X-Ray 02/25/17 0000 Signed Impressions: Service Date/Time: February 18:59 - CONCLUSION: No gross bony abnormality. Oscar Cassidy MD Lower Extremity Ultrasound 02/24/17 0000 Signed Impressions: Service Date/Time: Friday, February 24, 2017 13:41 - CONCLUSION: Negative for deep venous thrombosis. Isaac Stevenson MD FACR Head CT 02/24/17 0000 Signed Impressions: Service Date/Time: Friday, February 24, 2017 16:08 - CONCLUSION: 1. No acute intracranial abnormality. 2. Probable large mucocele in the sphenoid sinus. Ty Hankins MD Abdomen/Pelvis CT 02/24/17 0000 Signed Impressions: Service Date/Time: Friday, February 24, 2017 16:16 - CONCLUSION: 1. Marked gaseous distension of large and small bowel most suggestive of ileus. 2. There is no free air. 3. 2.2 cm left adrenal mass. 4. Distended bladder. Isaac Stevenson MD FACR Physical Exam GENERAL: This is a well-nourished, well-developed patient, in no apparent distress. SKIN: No rashes, ecchymoses or lesions. Cool and dry. HEAD: Atraumatic. Normocephalic. No temporal or scalp tenderness. EYES: Pupils equal round and reactive. Extraocular motions intact. No scleral icterus. No injection or drainage. ENT: Nose without bleeding, purulent drainage or septal hematoma. Throat without erythema, tonsillar hypertrophy or exudate. Uvula midline. Airway patent. NECK: Trachea midline. Supple, nontender, no meningeal signs. CARDIOVASCULAR: Regular rate and rhythm without murmurs, gallops, or rubs. RESPIRATORY: Clear to auscultation. Breath sounds equal bilaterally. No wheezes , rales, or rhonchi. GASTROINTESTINAL: Abdomen soft, non-tender, nondistended. MUSCULOSKELETAL: Rt BKA site suture line looks good. No e.o infection. Right hand in dressing. zahraa Duff no residual infection. NEUROLOGICAL: Awake, grossly non focal. 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 distant showering of emboli to other joints. MRSA bacteremia Right ankle hardware infection, s/p partial removal of hardware. Deeper hardware embedded. Bilateral UE hand abscess and tenosynovitis, septic arthritis s.p multiple debridements. Cath associated UTI. s/p wild change 03/26/17. GNR in urine. Acute renal failure: ? vanco induced. Improving. hypertension alcoholism Hepatitis C Recs DC Dapto IV Follow clinically. Zahraa Melo to have suture removal addressed with if appropriate timing. Will sign off please call back if any change in clinical condition or questions. Nemani,Sunshine MD Apr 23, 2017 17:09
[2017-04-23 20:00] VITALS: BP 141/71; PULSE 71; RESP 16; TEMP 98.9; O2SAT 99
[2017-04-24] VITALS: BP 134/89; PULSE 67; RESP 16; TEMP 98.1; O2SAT 99
[2017-04-24] MEDS: LORazepam 1 MG TAB PO PRN ×4 (01:03→20:53)
[2017-04-24] MEDS: ACETAMINOPHEN/HYDROcodone 325 MG/7.5 MG TAB PO PRN ×5 (01:03→22:50)
[2017-04-24 04:00] VITALS: BP 151/82; PULSE 69; RESP 16; TEMP 98.9; O2SAT 97
[2017-04-24] MEDS: cloNIDine HCL 0.2 MG TAB PO SCH ×3 (04:05→20:52)
[2017-04-24] MEDS: METHOCARBAMOL 500 MG TAB PO SCH ×3 (06:00→20:55)
[2017-04-24] MEDS: LEVOTHYROXINE SODIUM 50 MCG TAB PO SCH (06:02)
[2017-04-24 07:42] LABS: BICARBONATE 25.1 MEQ/L (21.0-32.0); POTASSIUM 4.4 MEQ/L (3.5-5.1)
[2017-04-24 08:00] VITALS: BP 150/80; PULSE 75; RESP 20; TEMP 97.5; O2SAT 99
[2017-04-24] MEDS: MUPIROCIN 2% OINT 1 APPLIC/GM SYR NASAL SCH ×2 (10:17→20:55)
[2017-04-24] MEDS: THIAMINE HCL 100 MG TAB PO SCH (10:18)
[2017-04-24] MEDS: CARVEDILOL 6.25 MG TAB PO SCH ×2 (10:18→20:53)
[2017-04-24] MEDS: LISINOPRIL 5 MG TAB PO SCH (10:18)
[2017-04-24] MEDS: SODIUM CHLORIDE 1 GRAM TAB PO SCH ×3 (10:19→18:30)
[2017-04-24] MEDS: DEMECLOCYCLINE HCL 150 MG TAB PO SCH ×2 (10:19→20:53)
[2017-04-24] MEDS: ACETAMINOPHEN/HYDROcodone 325 MG/5 MG TAB PO PRN (10:19)
[2017-04-24] MEDS: MULTIVITAMIN TAB PO SCH (10:19)
[2017-04-24 12:00] VITALS: BP 121/66; PULSE 66; RESP 18; TEMP 98.3; O2SAT 97
[2017-04-24] MEDS: ENOXAPARIN SODIUM 40 MG/0.4 ML SYRINGE SQ SCH (12:14)
--- NOTE | 2017-04-24 12:28 | HHI.PR ---
Subjective Remarks in no distress. with some back pain. no new complaints. d/w the RN. Objective Vitals Vital Signs Date Time Temp Pulse Resp B/P (MAP) Pulse Ox O2 Delivery O2 Flow Rate FiO2 04/24/17 08:00 97.5 75 20 150/80 (103) 99 04/24/17 04:00 98.9 69 16 151/82 (105) 97 04/24/17 04:00 Room Air 04/24/17 00:00 Room Air 04/24/17 00:00 98.1 67 16 134/89 (104) 99 04/23/17 20:00 98.9 71 16 141/71 (94) 99 04/23/17 20:00 Room Air 04/23/17 16:00 99.7 69 18 123/71 (88) 98 I/O 04/23/17 04/23/17 04/23/17 04/24/17 04/24/17 04/24/17 07:00 15:00 23:00 07:00 15:00 23:00 Intake Total 340 ml 240 ml Output Total 1025 ml 800 ml 1200 ml Balance -1025 ml -460 ml -960 ml Intake Oral 240 ml 240 ml IV Total 100 ml Output Urine Total 1025 ml 800 ml 1200 ml # Voids 2 Result Diagram: 04/20/17 0709 04/24/17 0643 Imaging Last Impressions Chest X-Ray 03/29/17 0000 Signed Impressions: Service Date/Time: Wednesday, March 29, 2017 12:17 - CONCLUSION: Stable chest. Isaac Stevenson MD FACR Tumor Localization 03/22/17 0000 Signed Impressions: Service Date/Time: Wednesday, March 22, 2017 13:03 - CONCLUSION: Nondiagnostic examination secondary to patient refusal Harry Lucio MD Abdomen X-Ray 03/08/17 0000 Signed Impressions: Service Date/Time: Wednesday, March 08, 2017 10:30 - CONCLUSION: Nonspecific, negative for obstruction or ileus. Isaac Stevenson MD FACR Lower Extremity CT 03/01/17 0000 Signed Impressions: Service Date/Time: Wednesday, March 01, 2017 11:12 - CONCLUSION: 1. No evidence of organized fluid collections to suggest an abscess. 2. Extensive soft tissue swelling surrounding the ankle and extending to the forefoot especially along the lateral aspect. 3. No erosive or destructive bone changes. 4. Bone defects compatible with previous excision device. Blake Rider MD Ankle X-Ray 02/26/17 0000 Signed Impressions: Service Date/Time: Sunday, February 26, 2017 17:15 - CONCLUSION: I see no retained surgical instruments. Isaac Stevenson MD FACR Upper Extremity Ultrasound 02/25/17 1734 Signed Impressions: Service Date/Time: February 17:54 - CONCLUSION: There is a thin fluid collection within the focal area of soft tissue swelling 2nd digit. Oscar Cassidy MD Hand X-Ray 02/25/17 0000 Signed Impressions: Service Date/Time: February 18:59 - CONCLUSION: No gross bony abnormality. Oscar Cassidy MD Lower Extremity Ultrasound 02/24/17 0000 Signed Impressions: Service Date/Time: Friday, February 24, 2017 13:41 - CONCLUSION: Negative for deep venous thrombosis. Isaac Stevenson MD FACR Head CT 02/24/17 0000 Signed Impressions: Service Date/Time: Friday, February 24, 2017 16:08 - CONCLUSION: 1. No acute intracranial abnormality. 2. Probable large mucocele in the sphenoid sinus. Ty Hankins MD Abdomen/Pelvis CT 02/24/17 0000 Signed Impressions: Service Date/Time: Friday, February 24, 2017 16:16 - CONCLUSION: 1. Marked gaseous distension of large and small bowel most suggestive of ileus. 2. There is no free air. 3. 2.2 cm left adrenal mass. 4. Distended bladder. Isaac Stevenson MD FACR Objective Remarks GENERAL: This is a well-nourished, well-developed patient, in no apparent distress. CARDIOVASCULAR: Regular rate and regular rhythm without murmurs, gallops, or rubs. RESPIRATORY: Clear to auscultation. Breath sounds equal bilaterally. No wheezes , rales, or rhonchi. GASTROINTESTINAL: Abdomen soft, non-tender, nondistended. Normal, active bowel sounds MUSCULOSKELETAL: right forearm covered with clean dressing- s/p right BKA NEURO: Alert & Oriented x4 to person, place, time, situation. Moves all ext x4 skin; rash noted on the right axilla Procedures 03/10/2017 - Dr. Bullock exploration, wash, excisional debridement extensor tenosynovium right wrist/forearm/hand 03/08/17 - Dr. Bullock- exploration, wash, excisional debridement skin, subcutaneous tissue, extensor tenosynovitis right wrist and hand. Findings: necrotic tissue, minimal purulence, extensor tenosynovitis right wrist/hand 03/04/17 - Dr Gamez - Right leg and incision and drainage. Right foot delayed primary closure x3 03/04/17 - Dr. Bullock - Extensor tenosynovectomy second, third, fourth extensor compartments right wrist and excisional debridement wash index finger metacarpal phalangeal joint, excisional wash and excisional debridement left hand. 02/28/17 - Dr. Reyes - Right ankle wound debridement and washout. Implantation of antibiotic vancomycin beads. 02/28/17 - Dr. Bullock - Exploration, wash, excisional debridement index finger metacarpophalangeal joint right hand; Exploration, wash, excisional debridement metacarpophalangeal joint left index finger; Exploration, wash, excisional debridement extensor pollicis longus tendon right thumb and hand. 02/26/17 - Dr. Reyes - Right ankle incision and drainage, arthrotomy, removal infected hardware, bone biopsy. 02/26/17 - Dr. Bullock - Exploration, incision and drainage right hand abscess, Arthrotomy wash metacarpal phalangeal joint right index finger, Arthrotomy wash metacarpal phalangeal joint left index finger. Medications and IVs Current Medications Sodium Chloride 1,000 ml @ 999 mls/hr BOLUS ONCE IV Last administered on 13:38; Start 02/24/17 at 13:45; Stop 02/24/17 at 14:45; Status DC IV Flush (NS Flush) 2 ml UNSCH PRN IV FLUSH FLUSH AFTER USING IV ACCESS Last administered on 02/24/17 13:38; Start 02/24/17 at 13:45 Vancomycin HCl 1000 mg/Sodium Chloride 250 ml @ 250 mls/hr ONCE STAT IV Last administered on 02/24/17 15:49; Start 02/24/17 at 15:35; Stop 02/24/17 at 16:34; Status DC Cefepime HCl 2000 mg/Sodium Chloride 100 ml @ 200 mls/hr ONCE STAT IV Last administered on 02/24/17 16:36; Start 02/24/17 at 15:35; Stop 02/24/17 at 16:04; Status DC Potassium Bicarb/ Potassium Chloride (K-Lyte Cl Eff) 50 meq ONCE ONCE PO Last administered on 02/24/17 15:56; Start 02/24/17 at 16:00; Stop 02/24/17 at 16: 01; Status DC Iohexol (Omnipaque 350 Inj) 97 ml STK-MED ONCE IV Last administered on 16:29; Start 02/24/17 at 16:29; Stop 02/24/17 at 16:30; Status DC Sodium Chloride 1,000 ml @ 125 mls/hr Q8H IV Last administered on 03/02/17 09: 33; Start 02/24/17 at 18:00; Stop 03/02/17 at 13:08; Status DC Ondansetron HCl (Zofran Inj) 4 mg Q8HR PRN IV PUSH NAUSEA; Start 02/24/17 at 18: 00 Thiamine HCl (Vitamin B1) 100 mg ONCE ONCE PO Last administered on 02/24/17 20 :20; Start 02/24/17 at 20:15; Stop 02/24/17 at 20:16; Status DC Thiamine HCl (Vitamin B1) 100 mg DAILY PO Last administered on 04/24/17 10:18 ; Start 02/25/17 at 09:00 Potassium Chloride 100 ml @ 50 mls/hr Q2H IV Last administered on 02/24/17 22: 59; Start 02/24/17 at 20:30; Stop 02/25/17 at 00:29; Status DC Pharmacy Profile Note 0 ml @ 0 mls/hr UNSCH OTHER ; Start 02/24/17 at 20:15; Stop 03/02/17 at 13:23; Status DC Cefepime HCl 2000 mg/Sodium Chloride 100 ml @ 200 mls/hr Q12H IV Last administered on 02/27/17 05:51; Start 02/25/17 at 07:00; Stop 02/27/17 at 14:53; Status DC Vancomycin HCl 1500 mg/Sodium Chloride 515 ml @ 257.5 mls/ hr Q18H IV Last administered on 02/25/17 10:30; Start 02/25/17 at 10:00; Stop 02/25/17 at 11:30; Status DC Miscellaneous Information SPECIFIC LAB TO BE DRAWN:HEATHER TROUGH DATE TO BE DRLaurence.. ONCE ONCE .XX ; Start 02/26/17 at 21:45; Stop 02/26/17 at 21:46; Status DC Flumazenil (Romazicon Inj) 0.2 mg Q1M PRN IV PUSH SEE LABEL COMMENTS; Start 02/25/17 at 09:15 Lorazepam (Ativan) 1 mg Q4H PRN PO agitation Last administered on 04/24/17 10: 19; Start 02/25/17 at 09:15 Lorazepam (Ativan Inj) 1 mg Q4H PRN IV PUSH agitation when not taking po Last administered on 03/05/17 02:41; Start 02/25/17 at 09:15 Lorazepam (Ativan) 2 mg Q2H PRN PO CIWA 11-14; Start 02/25/17 at 09:15; Stop 02/28/17 at 07:44; Status DC Lorazepam (Ativan Inj) 2 mg Q2H PRN IV PUSH CIWA 11-14 Last administered on 02/26 18:14; Start 02/25/17 at 09:15; Stop 02/28/17 at 07:44; Status DC Lorazepam (Ativan Inj) 2 mg Q1H PRN IV PUSH CIWA 15-20 Last administered on 02/25 21:37; Start 02/25/17 at 09:15; Stop 02/28/17 at 07:44; Status DC Lorazepam (Ativan Inj) 2 mg Q15M PRN IV PUSH CIWA > 20 Last administered on 02/26 06:25; Start 02/25/17 at 09:15; Stop 02/28/17 at 07:44; Status DC Multivitamins (Theragran) 1 tab DAILY PO Last administered on 04/24/17 10:19; Start 02/26/17 at 09:00 Acetaminophen (Tylenol) 650 mg Q4H PRN PO FEVER Last administered on 03/07/17 04:47; Start 02/25/17 at 09:15; Stop 03/12/17 at 10:47; Status DC Lisinopril (Prinivil) 10 mg DAILY PO ; Start 02/26/17 at 09:00; Stop 03/08/17 at 21:09; Status DC Enoxaparin Sodium (Lovenox Inj) 40 mg Q24H SQ Last administered on 03/07/17 10 :00; Start 02/25/17 at 10:00; Stop 03/10/17 at 12:17; Status DC Vancomycin HCl 1500 mg/Sodium Chloride 515 ml @ 257.5 mls/ hr Q12H IV Last administered on 02/26/17 09:42; Start 02/25/17 at 22:00; Stop 02/26/17 at 12:06; Status DC Miscellaneous Information SPECIFIC LAB TO BE BIA... ONCE ONCE .XX Last administered on 02/26/17 09:45; Start 02/26/17 at 09:45; Stop 02/26/17 at 09:46; Status DC Chlordiazepoxide (Librium) 25 mg Q8H PO ; Start 02/25/17 at 17:00; Stop 02/25/17 at 20:24; Status DC Gentamicin Sulfate 70 mg/ Sodium Chloride 101.75 ml @ 100 mls/ hr ONCE ONCE IV Last administered on 02/25/17 18:51; Start 02/25/17 at 18:30; Stop 02/25/17 at 19:31; Status DC Dexmedetomidine HCl 200 mcg/ Sodium Chloride 52 ml @ 0 mls/hr TITRATE IV Last administered on 02/27/17 13:55; Start 02/25/17 at 17:30; Stop 03/09/17 at 23:34; Status DC Acetaminophen (Ofirmev Inj) 650 mg Q6H PRN IV TEMP >101 Last administered on 20:12; Start 02/25/17 at 21:00; Stop 04/17/17 at 08:33; Status DC Iohexol (Omnipaque 350 Inj) 75 ml STK-MED ONCE IV Last administered on 21:15; Start 02/25/17 at 21:15; Stop 02/25/17 at 21:16; Status DC Potassium Chloride 100 ml @ 50 mls/hr Q2H PRN IV For Potassium 2.8 - 3.2 mEq/L ; Start 02/25/17 at 22:45; Stop 03/01/17 at 23:53; Status DC Potassium Chloride 100 ml @ 50 mls/hr Q2H PRN IV For Potassium 2.8 - 3.2 mEq/ L Last administered on 02/28/17 12:32; Start 02/25/17 at 22:45; Stop 03/01/17 at 23:53; Status DC Potassium Bicarb/ Potassium Chloride (K-Lyte Cl Eff) 50 meq UNSCH PRN PO For Potassium 3.3 - 3.5 mEq/L; Start 02/25/17 at 22:45; Stop 03/01/17 at 23:53; Status DC Potassium Chloride 100 ml @ 25 mls/hr UNSCH PRN IV For Potassium 3.3 - 3.5 mEq /L; Start 02/25/17 at 22:45; Stop 03/01/17 at 23:53; Status DC Potassium Chloride 100 ml @ 50 mls/hr Q2H PRN IV For Potassium 3.3 - 3.5 mEq/ L Last administered on 02/28/17 06:39; Start 02/25/17 at 22:45; Stop 03/01/17 at 23:53; Status DC Magnesium Sulfate 4 gm/Sodium Chloride 100 ml @ 50 mls/hr UNSCH PRN IV For Magnesium 0.9 - 1.1 mg/dL; Start 02/25/17 at 22:45; Stop 03/01/17 at 23:53; Status DC Magnesium Oxide (Mag-Ox) 800 mg UNSCH PRN PO For Magnesium 1.2 - 1.6 mg/dL; Start 02/25/17 at 22:45; Stop 03/01/17 at 23:53; Status DC Magnesium Sulfate 2 gm/Sodium Chloride 100 ml @ 50 mls/hr UNSCH PRN IV For Magnesium 1.2 - 1.6 mg/dL; Start 02/25/17 at 22:45; Stop 03/01/17 at 23:53; Status DC Potassium Phosphate (K-Phos) 2,000 mg Q4H PRN PO For Phosphorus < 2.5 mg/dL; Start 02/25/17 at 22:45; Stop 03/01/17 at 23:53; Status DC Sodium Phosphate 30 mmol/Sodium Chloride 250 ml @ 42 mls/hr UNSCH PRN IV For Phosphorus < 2.5 mg/dL Last administered on 02/26/17 23:19; Start 02/25/17 at 22: 45; Stop 03/01/17 at 23:53; Status DC Potassium Phosphate (K-Phos) 2,000 mg UNSCH PRN PO/TUBE SEE LABEL COMMENTS; Start 02/25/17 at 22:45; Stop 03/01/17 at 23:53; Status DC Potassium Phosphate 30 mmol/ Sodium Chloride 260 ml @ 42 mls/hr UNSCH PRN IV SEE LABEL COMMENTS; Start 02/25/17 at 22:45; Stop 03/01/17 at 23:53; Status DC Labetalol HCl (Trandate Inj) 10 mg Q6H PRN IV PUSH SBP >165; Start 02/25/17 at 23:15 Pantoprazole Sodium (Protonix Inj) 40 mg Q24H IV PUSH Last administered on 04/24 00:00; Start 02/26/17 at 00:00 Miscellaneous Information Patient in critical care unit? Ass... [id number] .XX ; Start 02/26/17 at 07:15 Mupirocin (Bactroban Nasal 2% Oint) 1 applic BID NASAL Last administered on 10:17; Start 02/26/17 at 09:00 Chlorhexidine Gluconate (Chlorhexidine 2% Cloth) 3 pack DAILY@04 TOPICAL Last administered on 03/03/17 04:00; Start 02/27/17 at 04:00; Stop 03/03/17 at 04:01; Status DC Chlorhexidine Gluconate (Chlorhexidine 2% Cloth) 3 pack UNSCH PRN TOPICAL HYGIENIC CARE; Start 02/26/17 at 07:15; Stop 03/03/17 at 07:07; Status DC Lidocaine HCl (Xylocaine 2% Inj) 50 ml STK-MED ONCE .ROUTE ; Start 02/26/17 at 09 :35; Stop 02/26/17 at 09:36; Status DC Bupivacaine HCl (Marcaine Pf 0.5% Inj) 60 ml STK-MED ONCE .ROUTE ; Start at 09:35; Stop 02/26/17 at 09:36; Status DC Mupirocin (Bactroban 2% Oint) 22 applic STK-MED ONCE .ROUTE ; Start 02/26/17 at 09:35; Stop 02/26/17 at 09:36; Status DC Vancomycin HCl 1250 mg/Sodium Chloride 262.5 ml @ 250 mls/hr Q12H IV Last administered on 03/02/17 09:33; Start 02/26/17 at 22:00; Stop 03/02/17 at 13:23; Status DC Miscellaneous Information SPECIFIC LAB TO BE BIA... ONCE ONCE .XX Last administered on 02/27/17 22:46; Start 02/27/17 at 21:45; Stop 02/27/17 at 21:46; Status DC Neomycin/Polymyxin (Neosporin G.u. Irr) 3 ml STK-MED ONCE TOPICAL Last administered on 02/26/17 13:06; Start 02/26/17 at 13:06; Stop 02/26/17 at 16:26; Status DC Neomycin/Polymyxin (Neosporin G.u. Irr) 4 ml STK-MED ONCE TOPICAL Last administered on 02/26/17 15:47; Start 02/26/17 at 15:47; Stop 02/26/17 at 16:26; Status DC Fentanyl Citrate (fentaNYL INJ) 250 mcg STK-MED ONCE .ROUTE ; Start 02/26/17 at 18:16; Stop 02/26/17 at 18:17; Status DC Fentanyl Citrate (fentaNYL INJ) 100 mcg STK-MED ONCE .ROUTE ; Start 02/26/17 at 18:16; Stop 02/26/17 at 18:17; Status DC Miscellaneous Information ALL NURSING DEPARTME... UNSCH PRN .XX SEE LABEL COMMENTS; Start 02/26/17 at 17:57; Stop 02/27/17 at 17:56; Status DC Clonidine (Catapres) 0.3 mg Q8HR PO Last administered on 04/10/17 12:33; Start 02/26/17 at 22:11; Stop 04/10/17 at 12:52; Status DC Diazepam (Valium) 5 mg Taper DAILY PO Last administered on 03/06/17 09:49; Start 02/26/17 at 22:15; Stop 03/06/17 at 22:14; Status DC Water (Free Water) 200 ml Q8HR G-TUBE Last administered on 02/27/17 22:31; Start 02/27/17 at 06:55; Stop 02/28/17 at 07:41; Status DC Rifampin 300 mg/ Sodium Chloride 100 ml @ 100 mls/hr Q12H IV Last administered on 03/02/17 14:41; Start 02/27/17 at 15:00; Stop 03/02/17 at 16:41; Status DC Oxycodone HCl (Roxicodone) 5 mg Q4H PRN PO pain 1-5 Last administered on 09:26; Start 02/28/17 at 07:45; Stop 04/09/17 at 17:08; Status DC Hydromorphone HCl (Dilaudid Pf Inj) 0.5 mg Q3H PRN IV PUSH pain 6-10 or not taking po Last administered on 04/09/17 16:51; Start 02/28/17 at 07:45; Stop at 17:08; Status DC Water (Free Water) 300 ml Q4HR G-TUBE Last administered on 03/02/17 20:00; Start 02/28/17 at 08:00; Stop 03/02/17 at 23:07; Status DC Vancomycin HCl (Vancomycin Inj) 1,000 mg STK-MED ONCE .ROUTE Last administered on 02/28/17 09:01; Start 02/28/17 at 09:01; Stop 02/28/17 at 09:02; Status DC Vancomycin HCl (Vancomycin Inj) 1,000 mg STK-MED ONCE .ROUTE Last administered on 02/28/17 09:33; Start 02/28/17 at 09:33; Stop 02/28/17 at 09:34; Status DC Vancomycin HCl (Vancomycin Inj) 1,000 mg STK-MED ONCE .ROUTE Last administered on 02/28/17 09:36; Start 02/28/17 at 09:33; Stop 02/28/17 at 09:34; Status DC Daptomycin 450 mg/ Sodium Chloride 100 ml @ 200 mls/hr Q24H IV Last administered on 03/05/17 13:41; Start 02/28/17 at 12:00; Stop 03/05/17 at 18:00 ; Status DC Vancomycin HCl (Vancomycin Inj) 1,000 mg STK-MED ONCE .ROUTE Last administered on 02/28/17 10:45; Start 02/28/17 at 10:42; Stop 02/28/17 at 10:43; Status DC Vancomycin HCl (Vancomycin Inj) 500 mg STK-MED ONCE .ROUTE Last administered on 02/28/17 10:45; Start 02/28/17 at 10:42; Stop 02/28/17 at 10:43; Status DC Fentanyl Citrate (fentaNYL INJ) 250 mcg STK-MED ONCE .ROUTE ; Start 02/28/17 at 11:48; Stop 02/28/17 at 11:49; Status DC Miscellaneous Information ALL NURSING DEPARTME... UNSCH PRN .XX SEE LABEL COMMENTS; Start 02/28/17 at 11:33; Stop 03/01/17 at 11:32; Status DC Miscellaneous Information SPECIFIC LAB TO BE BIA... ONCE ONCE .XX ; Start 03/04 at 09:45; Stop 03/04/17 at 09:46; Status Cancel Sodium Chloride 1,000 ml @ 999 mls/hr BOLUS ONCE IV Last administered on 13:28; Start 03/02/17 at 13:15; Stop 03/02/17 at 14:15; Status DC Sodium Chloride 1,000 ml @ 125 mls/hr Q8H IV Last administered on 03/02/17 14: 18; Start 03/02/17 at 13:15; Stop 03/02/17 at 14:30; Status DC Rifampin (Rifampin) 300 mg Q12HR PO Last administered on 03/23/17 08:42; Start 03/02/17 at 21:00; Stop 03/23/17 at 18:40; Status DC Potassium Chloride 20 meq/ Sodium Chloride 38.5 meq/Sterile Water 1,010 ml @ 55 mls/hr [id number] IV Last administered on 03/09/17 22:51; Start 03/03/17 at 11: 00; Stop 03/09/17 at 23:36; Status DC Furosemide (Lasix Inj) 20 mg ONCE ONCE IV PUSH Last administered on 03/03/17 10:19; Start 03/03/17 at 09:30; Stop 03/03/17 at 09:43; Status DC Carvedilol (Coreg) 6.25 mg Q12HR PO Last administered on 04/09/17 08:40; Start 03/03/17 at 21:00; Stop 04/10/17 at 03:26; Status DC Vancomycin HCl (Vancomycin Inj) 1,000 mg STK-MED ONCE .ROUTE Last administered on 03/04/17 15:52; Start 03/04/17 at 15:10; Stop 03/04/17 at 15:11; Status DC Fentanyl Citrate (fentaNYL INJ) 100 mcg STK-MED ONCE .ROUTE ; Start 03/04/17 at 16:38; Stop 03/04/17 at 16:39; Status DC Fentanyl Citrate (fentaNYL INJ) 250 mcg STK-MED ONCE .ROUTE ; Start 03/04/17 at 16:38; Stop 03/04/17 at 16:39; Status DC Vancomycin HCl (Vancomycin Inj) 1,000 mg STK-MED ONCE .ROUTE Last administered on 03/04/17 16:52; Start 03/04/17 at 16:59; Stop 03/04/17 at 17:00; Status DC Fentanyl Citrate (fentaNYL INJ) 100 mcg STK-MED ONCE .ROUTE ; Start 03/04/17 at 18:24; Stop 03/04/17 at 18:25; Status DC Fentanyl Citrate (fentaNYL INJ) 250 mcg STK-MED ONCE .ROUTE ; Start 03/04/17 at 18:25; Stop 03/04/17 at 18:26; Status DC Miscellaneous Information ALL NURSING DEPARTME... UNSCH PRN .XX SEE LABEL COMMENTS; Start 03/04/17 at 19:15; Stop 03/05/17 at 19:14; Status DC Daptomycin 550 mg/ Sodium Chloride 100 ml @ 200 mls/hr Q24H IV Last administered on 04/23/17 12:07; Start 03/06/17 at 12:00; Stop 04/23/17 at 17:08 ; Status DC Bisacodyl (Dulcolax Supp) 10 mg DAILY PRN RECTAL SEVERE CONSITIPATION; Start at 21:00 Lactulose (Lactulose Liq) 30 ml DAILY PRN NG SEVERE CONSITIPATION Last administered on 03/07/17 18:45; Start 03/06/17 at 21:00 Docusate Sodium (Colace Liq) 100 mg Q12HR PO Last administered on 03/09/17 09: 30; Start 03/06/17 at 21:15; Status Future Hold Sodium Chloride 250 ml @ 15 mls/hr ONCE ONCE IV Last administered on 00:27; Start 03/07/17 at 19:00; Stop 03/08/17 at 12:06; Status DC Furosemide (Lasix Inj) 20 mg ONCE ONCE IV Last administered on 03/08/17 03:49 ; Start 03/07/17 at 19:00; Stop 03/07/17 at 19:01; Status DC Polyethylene Glycol/ Electrolytes (Colyte Liq) 4,000 ml ONCE ONCE PO ; Start at 11:00; Stop 03/08/17 at 11:01; Status Cancel Mupirocin (Bactroban 2% Oint) 22 applic STK-MED ONCE .ROUTE ; Start 03/08/17 at 12:10; Stop 03/08/17 at 12:11; Status DC Lidocaine HCl (Xylocaine 2% Inj) 50 ml STK-MED ONCE .ROUTE ; Start 03/08/17 at 12:13; Stop 03/08/17 at 12:14; Status DC Bupivacaine HCl (Marcaine Pf 0.5% Inj) 30 ml STK-MED ONCE .ROUTE ; Start at 12:17; Stop 03/08/17 at 12:18; Status DC Famotidine (Pepcid Inj) 20 mg STK-MED ONCE .ROUTE ; Start 03/08/17 at 13:17; Stop 03/08/17 at 13:18; Status DC Vancomycin HCl (Vancomycin Inj) 1,000 mg STK-MED ONCE .ROUTE Last administered on 03/08/17 14:35; Start 03/08/17 at 14:07; Stop 03/08/17 at 14:08; Status DC Sodium Chloride (Sodium Chloride 0.9% Inj) 20 ml STK-MED ONCE .ROUTE ; Start at 14:07; Stop 03/08/17 at 14:08; Status DC Vancomycin HCl (Vancomycin Inj) 1,000 mg STK-MED ONCE .ROUTE ; Start 03/08/17 at 14:42; Stop 03/08/17 at 14:43; Status DC Sodium Chloride (Sodium Chloride 0.9% Inj) 20 ml STK-MED ONCE .ROUTE ; Start at 14:42; Stop 03/08/17 at 14:43; Status DC Fentanyl Citrate (fentaNYL INJ) 500 mcg STK-MED ONCE .ROUTE ; Start 03/08/17 at 15:51; Stop 03/08/17 at 15:52; Status DC Miscellaneous Information ALL NURSING DEPARTME... UNSCH PRN .XX SEE LABEL COMMENTS; Start 03/08/17 at 15:40; Stop 03/09/17 at 15:39; Status DC Polyethylene Glycol/ Electrolytes (Colyte Liq) 4,000 ml ONCE ONCE NG Last administered on 03/08/17 22:42; Start 03/08/17 at 20:00; Stop 03/08/17 at 20:01 ; Status DC Lisinopril (Prinivil) 2.5 mg DAILY PO Last administered on 04/24/17 10:18; Start 03/09/17 at 09:00 Miscellaneous (Pill Splitter) 1 ea UNSCH PRN OTHER SEE LABEL COMMENTS; Start at 21:15 Dextrose 1,000 ml @ 84 mls/hr [id number] IV Last administered on 03/11/17 21:24 ; Start 03/09/17 at 23:45; Stop 03/11/17 at 23:38; Status DC Enoxaparin Sodium (Lovenox Inj) 40 mg Q24H SQ Last administered on 04/24/17 12 :14; Start 03/10/17 at 13:00; Status Future hold Bupivacaine HCl (Marcaine Pf 0.5% Inj) 30 ml STK-MED ONCE .ROUTE ; Start at 14:50; Stop 03/10/17 at 14:51; Status DC Lidocaine HCl (Xylocaine 2% Inj) 50 ml STK-MED ONCE .ROUTE ; Start 03/10/17 at 14:51; Stop 03/10/17 at 14:52; Status DC Bacitracin (Baciguent Oint) 15 applic STK-MED ONCE .ROUTE Last administered on 03/10/17 16:43; Start 03/10/17 at 14:51; Stop 03/10/17 at 14:52; Status DC Vancomycin HCl (Vancomycin Inj) 1,000 mg STK-MED ONCE .ROUTE Last administered on 03/10/17 15:49; Start 03/10/17 at 15:45; Stop 03/10/17 at 15:46; Status DC Sodium Chloride (Sodium Chloride 0.9% Inj) 20 ml STK-MED ONCE .ROUTE ; Start at 15:45; Stop 03/10/17 at 15:46; Status DC Neomycin/Polymyxin (Neosporin G.u. Irr) 2 ml STK-MED ONCE TOPICAL Last administered on 03/10/17 15:49; Start 03/10/17 at 15:49; Stop 03/10/17 at 15:59 ; Status DC Bacitracin (Baciguent Oint) 30 applic STK-MED ONCE .ROUTE Last administered on 03/10/17 16:44; Start 03/10/17 at 16:41; Stop 03/10/17 at 16:42; Status DC Hydromorphone HCl (Dilaudid Pf Inj) 2 mg STK-MED ONCE .ROUTE ; Start 03/10/17 at 16:47; Stop 03/10/17 at 16:48; Status DC Fentanyl Citrate (fentaNYL INJ) 250 mcg STK-MED ONCE .ROUTE ; Start 03/10/17 at 17:22; Stop 03/10/17 at 17:23; Status DC Morphine Sulfate (*morphine INJ PERIprocedure ONLY) 8 mg STK-MED ONCE .ROUTE Last administered on 03/10/17 18:12; Start 03/10/17 at 18:12; Stop 03/10/17 at 18:13; Status DC Miscellaneous Information ALL NURSING DEPARTME... UNSCH PRN .XX SEE LABEL COMMENTS; Start 03/10/17 at 14:30; Stop 03/11/17 at 14:29; Status DC Propofol (Diprivan 200 Mg/20 ml Inj) 200 mg STK-MED ONCE IV PUSH ; Start at 15:29; Stop 03/11/17 at 15:47; Status DC Oxybenzone/ Padimate O/ Dimethicone (Blistex Lip Addy) 4.25 applic STK-MED ONCE TOPICAL Last administered on 03/11/17 16:02; Start 03/11/17 at 16:02; Stop at 16:03; Status DC Miscellaneous Information ALL NURSING DEPARTME... UNSCH PRN .XX SEE LABEL COMMENTS; Start 03/11/17 at 16:00; Stop 03/12/17 at 15:59; Status DC Succinylcholine Chloride (Quelicin Inj) 200 mg STK-MED ONCE IV PUSH ; Start at 15:27; Stop 03/12/17 at 08:59; Status DC Sodium Chloride 250 ml @ 15 mls/hr ONCE ONCE IV Last administered on t 10:15; Start 03/12/17 at 10:15; Stop 03/13/17 at 02:54; Status DC Acetaminophen (Tylenol) 650 mg Q4H PRN PO SEE LABEL COMMENTS; Start 03/12/17 at 10:15; Stop 03/12/17 at 14:16; Status DC Diphenhydramine HCl (Benadryl) 25 mg Q4H PRN PO SEE LABEL COMMENTS; Start 03/12 at 10:15; Stop 03/12/17 at 14:16; Status DC Potassium Chloride 100 ml @ 50 mls/hr Q2H IV Last administered on 03/12/17 13 :25; Start 03/12/17 at 11:00; Stop 03/12/17 at 14:59; Status DC Lidocaine HCl (Xylocaine 2% Inj) 50 ml STK-MED ONCE .ROUTE ; Start 03/12/17 at 13:04; Stop 03/12/17 at 13:05; Status DC Mupirocin (Bactroban 2% Oint) 22 applic STK-MED ONCE .ROUTE ; Start 03/12/17 at 13:06; Stop 03/12/17 at 13:07; Status DC Hydromorphone HCl (Dilaudid Pf Inj) 2 mg STK-MED ONCE .ROUTE ; Start 03/12/17 at 15:18; Stop 03/12/17 at 15:19; Status DC Acetaminophen (Ofirmev Inj) 1,000 mg STK-MED ONCE IV ; Start 03/12/17 at 15:18; Stop 03/12/17 at 15:19; Status DC Vancomycin HCl (Vancomycin Inj) 1,000 mg STK-MED ONCE .ROUTE Last administered on 03/12/17 15:54; Start 03/12/17 at 15:57; Stop 03/12/17 at 15:58; Status DC Neomycin/Polymyxin (Neosporin G.u. Irr) 2 ml STK-MED ONCE TOPICAL Last administered on 03/12/17 15:54; Start 03/12/17 at 15:54; Stop 03/12/17 at 16:15 ; Status DC Fentanyl Citrate (fentaNYL INJ) 250 mcg STK-MED ONCE .ROUTE ; Start 03/12/17 at 17:04; Stop 03/12/17 at 17:05; Status DC Miscellaneous Information ALL NURSING DEPARTME... UNSCH PRN .XX SEE LABEL COMMENTS; Start 03/12/17 at 17:30; Stop 03/13/17 at 17:29; Status DC Morphine Sulfate (*morphine INJ PERIprocedure ONLY) 8 mg STK-MED ONCE .ROUTE Last administered on 03/12/17 17:33; Start 03/12/17 at 17:33; Stop 03/12/17 at 17:34; Status DC Lidocaine HCl (Xylocaine 1% Inj) 10 ml ONCE@0700 ONCE OTHER ; Start 03/13/17 at 07:00; Stop 03/13/17 at 07:01; Status DC Potassium Chloride/Sodium Chloride 1,000 ml @ 75 mls/hr [id number] IV Last administered on 04/07/17 10:54; Start 03/13/17 at 11:30; Stop 04/07/17 at 13:42 ; Status DC Polyethylene Glycol/ Electrolytes (Colyte Liq) 4,000 ml ONCE ONCE PEG Last administered on 03/14/17 17:13; Start 03/14/17 at 16:00; Stop 03/14/17 at 16:01 ; Status DC Sodium Chloride 250 ml @ 15 mls/hr ONCE ONCE IV Last administered on 21:30; Start 03/13/17 at 20:00; Stop 03/14/17 at 12:39; Status DC Polyethylene Glycol/ Electrolytes (Colyte Liq) 4,000 ml ONCE ONCE PO Last administered on 03/15/17 17:19; Start 03/15/17 at 16:45; Stop 03/15/17 at 16:48 ; Status DC Propofol (Diprivan 200 Mg/20 ml Inj) 180 mg ONCE ONCE IV Last administered on 03/15/17 16:45; Start 03/15/17 at 16:43; Stop 03/15/17 at 16:45; Status DC Sodium Biphosphate/ Sodium Phosphate (Fleets Enema (Adult)) 133 ml ONCE ONCE RECTAL Last administered on 03/16/17 14:45; Start 03/16/17 at 14:15; Stop at 14:21; Status DC Sodium Biphosphate/ Sodium Phosphate (Fleets Enema (Adult)) 133 ml ONCE ONCE RECTAL Last administered on 03/17/17 09:49; Start 03/17/17 at 08:00; Stop at 08:01; Status DC Propofol (Diprivan 200 Mg/20 ml Inj) 100 mg ONCE ONCE IV PUSH ; Start at 15:00; Stop 03/16/17 at 15:01; Status DC Midazolam HCl (Versed Inj) 2 mg STK-MED ONCE .ROUTE ; Start 03/16/17 at 15:34; Stop 03/16/17 at 15:35; Status DC Vancomycin HCl (Vancomycin Inj) 1,000 mg STK-MED ONCE .ROUTE Last administered on 03/18/17 18:58; Start 03/18/17 at 18:15; Stop 03/18/17 at 18:16; Status DC Fentanyl Citrate (fentaNYL INJ) 200 mcg STK-MED ONCE .ROUTE ; Start 03/18/17 at 19:50; Stop 03/18/17 at 19:51; Status DC Methocarbamol (Robaxin) 500 mg Q8HR PO Last administered on 04/14/17 05:25; Start 03/19/17 at 14:00; Stop 04/14/17 at 12:13; Status DC Acetaminophen 100 ml @ As Directed STK-MED ONCE IV ; Start 03/24/17 at 09:21; Stop 03/24/17 at 09:22; Status DC Midazolam HCl (Versed Inj) 2 mg STK-MED ONCE .ROUTE ; Start 03/24/17 at 09:21; Stop 03/24/17 at 09:22; Status DC Fentanyl Citrate (fentaNYL INJ) 100 mcg STK-MED ONCE .ROUTE ; Start 03/24/17 at 09:21; Stop 03/24/17 at 09:22; Status DC Fentanyl Citrate (fentaNYL INJ) 100 mcg STK-MED ONCE .ROUTE ; Start 03/24/17 at 09:21; Stop 03/24/17 at 09:22; Status DC Hydromorphone HCl (*DILAUDID PF INJ PERIprocedural ONLY) 1 mg STK-MED ONCE .ROUTE Last administered on 03/24/17 14:53; Start 03/24/17 at 14:53; Stop at 14:54; Status DC Meperidine HCl (*DEMEROL INJ PERIprocedural ONLY) 25 mg STK-MED ONCE .ROUTE Last administered on 03/24/17 15:01; Start 03/24/17 at 15:01; Stop 03/24/17 at 15:02; Status DC Fentanyl Citrate (fentaNYL INJ) 400 mcg STK-MED ONCE .ROUTE ; Start 03/24/17 at 15:01; Stop 03/24/17 at 15:02; Status DC Miscellaneous Information ALL NURSING DEPARTME... UNSCH PRN .XX SEE LABEL COMMENTS; Start 03/24/17 at 14:52; Stop 03/25/17 at 14:51; Status DC Polyethylene Glycol (Miralax) 17 gm DAILY PO ; Start 03/24/17 at 16:30; Status Cancel Acetaminophen (Tylenol) 650 mg Q4H PRN PO fever Last administered on 03/25/17 10:02; Start 03/25/17 at 10:00 Piperacillin Sod/ Tazobactam Sod 100 ml @ 200 mls/hr Q8H IV Last administered on 03/29/17 12:36; Start 03/25/17 at 20:00; Stop 03/29/17 at 14:34; Status DC Furosemide (Lasix Inj) 10 mg ONCE ONCE IV PUSH Last administered on 03/26/17 13:47; Start 03/26/17 at 13:30; Stop 03/26/17 at 13:34; Status DC Furosemide (Lasix Inj) 10 mg UNSCH X1 IV PUSH Last administered on 03/27/17 01 :31; Start 03/26/17 at 17:15; Stop 03/26/17 at 23:59; Status DC Levothyroxine Sodium (Synthroid) 50 mcg DAILY@0600 PO Last administered on 04/24 06:02; Start 03/30/17 at 06:00 Levothyroxine Sodium (Synthroid) 50 mcg ONCE ONCE PO Last administered on t 12:55; Start 03/29/17 at 12:00; Stop 03/29/17 at 12:02; Status DC Levofloxacin (Levaquin) 500 mg DAILY PO Last administered on 04/07/17t 08:46; Start 03/29/17 at 14:45; Stop 04/07/17 at 14:44; Status DC Propofol (Diprivan 200 Mg/20 ml Inj) 200 mg STK-MED ONCE IV ; Start 02/26/17 at 12:00; Stop 03/30/17 at 13:17; Status DC Neostigmine Methylsulfate (Prostigmin Inj) 3 mg STK-MED ONCE IV ; Start 02/26/17 at 12:00; Stop 03/30/17 at 13:17; Status DC Phenylephrine HCl (Neosynephrine/ NS 1000 Mcg/10ml Syr) 1,000 mcg STK-MED ONCE IV ; Start 02/26/17 at 12:00; Stop 03/30/17 at 13:17; Status DC Lactated Ringer's 2,000 ml @ As Directed STK-MED ONCE IV ; Start 02/26/17 at 12: 00; Stop 03/30/17 at 13:17; Status DC Propofol (Diprivan 200 Mg/20 ml Inj) 200 mg STK-MED ONCE IV ; Start 02/28/17 at 12:00; Stop 03/30/17 at 13:46; Status DC Neostigmine Methylsulfate (Prostigmin Inj) 3 mg STK-MED ONCE IV ; Start 02/28/17 at 12:00; Stop 03/30/17 at 13:46; Status DC Lactated Ringer's 2,000 ml @ As Directed STK-MED ONCE IV ; Start 02/28/17 at 12: 00; Stop 03/30/17 at 13:46; Status DC Propofol (Diprivan 200 Mg/20 ml Inj) 400 mg STK-MED ONCE IV ; Start 03/04/17 at 12:00; Stop 03/30/17 at 14:07; Status DC Ephedrine Sulfate (ePHEDrine/NS 25 MG/5 ML SYR) 25 mg STK-MED ONCE IV ; Start at 12:00; Stop 03/30/17 at 14:07; Status DC Phenylephrine HCl (Neosynephrine/ NS 1000 Mcg/10ml Syr) 2,000 mcg STK-MED ONCE IV ; Start 03/04/17 at 12:00; Stop 03/30/17 at 14:08; Status DC Ondansetron HCl (Zofran Inj) 4 mg STK-MED ONCE IV PUSH ; Start 03/04/17 at 12:00 ; Stop 03/30/17 at 14:08; Status DC Propofol (Diprivan 200 Mg/20 ml Inj) 200 mg STK-MED ONCE IV ; Start 03/08/17 at 12:00; Stop 03/30/17 at 14:49; Status DC Ephedrine Sulfate (ePHEDrine/NS 25 MG/5 ML SYR) 50 mg STK-MED ONCE IV ; Start at 12:00; Stop 03/30/17 at 14:49; Status DC Neostigmine Methylsulfate (Prostigmin Inj) 4 mg STK-MED ONCE IV ; Start at 12:00; Stop 03/30/17 at 14:49; Status DC Phenylephrine HCl (Neosynephrine/ NS 1000 Mcg/10ml Syr) 1,000 mcg STK-MED ONCE IV ; Start 03/08/17 at 12:00; Stop 03/30/17 at 14:49; Status DC Ondansetron HCl (Zofran Inj) 4 mg STK-MED ONCE IV PUSH ; Start 03/08/17 at 12:00 ; Stop 03/30/17 at 14:49; Status DC Lactated Ringer's 1,000 ml @ As Directed STK-MED ONCE IV ; Start 03/08/17 at 12 :00; Stop 03/30/17 at 14:49; Status DC Propofol (Diprivan 200 Mg/20 ml Inj) 200 mg STK-MED ONCE IV ; Start 03/10/17 at 12:00; Stop 03/30/17 at 15:08; Status DC Ephedrine Sulfate (ePHEDrine/NS 25 MG/5 ML SYR) 25 mg STK-MED ONCE IV ; Start at 12:00; Stop 03/30/17 at 15:08; Status DC Neostigmine Methylsulfate (Prostigmin Inj) 3 mg STK-MED ONCE IV ; Start at 12:00; Stop 03/30/17 at 15:08; Status DC Phenylephrine HCl (Neosynephrine/ NS 1000 Mcg/10ml Syr) 2,000 mcg STK-MED ONCE IV ; Start 03/10/17 at 12:00; Stop 03/30/17 at 15:08; Status DC Ondansetron HCl (Zofran Inj) 4 mg STK-MED ONCE IV PUSH ; Start 03/10/17 at 12:00 ; Stop 03/30/17 at 15:08; Status DC Lactated Ringer's 1,000 ml @ As Directed STK-MED ONCE IV ; Start 03/10/17 at 12 :00; Stop 03/30/17 at 15:08; Status DC Sodium Chloride 1,000 ml @ As Directed STK-MED ONCE IV ; Start 03/10/17 at 12: 00; Stop 03/30/17 at 15:08; Status DC Propofol (Diprivan 200 Mg/20 ml Inj) 200 mg STK-MED ONCE IV ; Start 03/12/17 at 12:00; Stop 03/30/17 at 15:20; Status DC Ephedrine Sulfate (ePHEDrine/NS 25 MG/5 ML SYR) 25 mg STK-MED ONCE IV ; Start at 12:00; Stop 03/30/17 at 15:20; Status DC Phenylephrine HCl (Neosynephrine/ NS 1000 Mcg/10ml Syr) 1,000 mcg STK-MED ONCE IV ; Start 03/12/17 at 12:00; Stop 03/30/17 at 15:20; Status DC Ondansetron HCl (Zofran Inj) 4 mg STK-MED ONCE IV PUSH ; Start 03/12/17 at 12:00 ; Stop 03/30/17 at 15:20; Status DC Lactated Ringer's 1,000 ml @ As Directed STK-MED ONCE IV ; Start 03/12/17 at 12 :00; Stop 03/30/17 at 15:20; Status DC Propofol (Diprivan 200 Mg/20 ml Inj) 200 mg STK-MED ONCE IV ; Start 03/18/17 at 12:00; Stop 03/30/17 at 15:38; Status DC Ondansetron HCl (Zofran Inj) 4 mg STK-MED ONCE IV PUSH ; Start 03/18/17 at 12:00 ; Stop 03/30/17 at 15:38; Status DC Neostigmine Methylsulfate (Prostigmin Inj) 3 mg STK-MED ONCE IV ; Start at 12:00; Stop 03/30/17 at 15:38; Status DC Phenylephrine HCl (Neosynephrine/ NS 1000 Mcg/10ml Syr) 1,000 mcg STK-MED ONCE IV ; Start 03/18/17 at 12:00; Stop 03/30/17 at 15:38; Status DC Oxycodone/ Acetaminophen (Percocet 5-325 Mg) 1 tab Q4H PRN PO pain 3 to 5; Start 04/02/17 at 13:00; Stop 04/09/17 at 17:08; Status DC Oxycodone/ Acetaminophen (Percocet 10-325 Mg) 1 tab Q4H PRN PO pain 6-10 Last administered on 04/09/17 14:14; Start 04/02/17 at 13:00; Stop 04/09/17 at 17:08 ; Status DC Magnesium Sulfate/ Dextrose 100 ml @ 100 mls/hr Q1H IV Last administered on 16:15; Start 04/03/17 at 14:00; Stop 04/03/17 at 15:59; Status DC Sodium Chloride (Sodium Chloride) 1 gm TID PO Last administered on 04/07/17 13 :24; Start 04/04/17 at 14:00; Stop 04/07/17 at 13:45; Status DC Calcium Chloride 2 gm/Sodium Chloride 120 ml @ 120 mls/hr ONCE ONCE IV Last administered on 04/04/17 15:45; Start 04/04/17 at 14:00; Stop 04/04/17 at 14:59 ; Status DC Hydromorphone HCl (Dilaudid Pf Inj) 0.2 mg Q6H PRN IV PUSH breakthrough pain Last administered on 04/13/17 03:27; Start 04/09/17 at 17:15; Stop 04/13/17 at 03:27; Status DC Acetaminophen/ Hydrocodone Bitart ([place] 7.5-325 Mg) 1 tab Q4H PRN PO PAIN 6- 10 Last administered on 04/24/17 06:02; Start 04/09/17 at 17:15 Acetaminophen/ Hydrocodone Bitart ([place] 5-325 Mg) 1 tab Q4H PRN PO PAIN 3-5 Last administered on 04/24/17 10:19; Start 04/09/17 at 17:15 Tolvaptan (Samsca) 15 mg ONCE ONCE PO Last administered on 04/09/17 22:49; Start 04/09/17 at 19:30; Stop 04/09/17 at 19:32; Status DC Carvedilol (Coreg) 6.25 mg Q12HR PO Last administered on 04/24/17 10:18; Start 04/10/17 at 09:00 Clonidine (Catapres) 0.2 mg Q8H PO Last administered on 04/24/17 12:14; Start 04/10/17 at 20:00 Methocarbamol (Robaxin) 750 mg Q8HR PO Last administered on 04/24/17 06:00; Start 04/14/17 at 14:00 Sodium Chloride (Sodium Chloride) 1 gm TID PO Last administered on 04/24/17 12 :14; Start 04/18/17 at 13:00 Demeclocycline HCl (Declomycin) 300 mg Q12HR PO Last administered on 04/24/17 10:19; Start 04/18/17 at 11:45 Furosemide (Lasix Inj) 20 mg ONCE ONCE IV PUSH Last administered on 04/19/17 17:39; Start 04/19/17 at 17:15; Stop 04/19/17 at 17:16; Status DC Hydrocortisone (Corticaine 0.5% Cream) 1 applic BID PRN TOPICAL ITCHING; Start 04/22/17 at 16:00; Stop 04/22/17 at 16:36; Status DC Hydrocortisone (Hydrocortisone 1% Cream) 1 applic BID PRN TOPICAL ITCHING Last administered on 04/22/17 17:14; Start 04/22/17 at 17:00 A/P Assessment and Plan A/P Hyponatremia-slowly improving. continue fluid restriction. patient previously received Tolvaptan- started on sodium tablet and Demeclocycline. nephrology following. monitor the sodium level closely. 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 distant showering of emboli to other joints. MRSA bacteremia Right ankle hardware infection, s/p partial removal of hardware. Deeper hardware embedded. SP RIGHT BKA Bilateral UE hand abscess and tenosynovitis, septic arthritis s.p multiple debridements. finished the course of Daptomycin. ID follow-up appreciated. Continue pain control. Multiple surgeries thus far: - podiatry Dr. Reyes/Dr. Gamez on 02/26, 02/28, 03/04 - hand surgeon Dr. Bullock on 02/26, 02/28, 03/04, 03/08, 03/10 -right BKA - sutures to be removed soon- per surgery Anemia Follow CBC Status post blood transfusion Acute Toxic/Metabolic Encephalopathy secondary to Sepsis-improved. Acute Alcohol Withdrawal - improved Hypertension Continue clonidine and Coreg, cardiology initiated low dose lisinopril, monitor renal function Follow blood pressures Adjust as needed for control chronic Systolic CHF EF of 40-45% with global hypokinesis found on 02/28/17 Continue beta amarjit and lisinopril Hypothyroidism continue synthroid THADDEUS mostly vanco induced - resolved Monitor renal function Avoid nephrotoxins Previous event was likely secondary to ATN Hepatitis C- f/u as outpatient. Standard precautions DVT Prophylaxis Flaca Funez MD Apr 24, 2017 12:28
[2017-04-24 16:00] VITALS: BP 100/56; PULSE 91; RESP 17; TEMP 98.3; O2SAT 99
--- NOTE | 2017-04-24 18:14 | HHI.NPPN ---
Subjective History of Present Illness 61 year old male with past medical history of hypertension, history of being homeless. He was admitted on February 25 with altered mental status and leukocytosis. I was called to see the patient because of elevated BUN and creatinine. Additional Remarks Patient is alert, no SOB, feeling better, tolerating PO intake Objective Data Data Vital Signs Date Time Temp Pulse Resp B/P (MAP) Pulse Ox O2 Delivery O2 Flow Rate FiO2 04/24/17 16:00 98.3 91 17 100/56 (71) 99 04/24/17 12:00 98.3 66 18 121/66 (84) 97 04/24/17 08:00 97.5 75 20 150/80 (103) 99 04/24/17 08:00 Room Air 04/24/17 04:00 98.9 69 16 151/82 (105) 97 04/24/17 04:00 Room Air 04/24/17 00:00 Room Air 04/24/17 00:00 98.1 67 16 134/89 (104) 99 04/23/17 20:00 98.9 71 16 141/71 (94) 99 04/23/17 20:00 Room Air -: 04/20/17 0709 04/24/17 0643 Physical Exam General Appearance: No Acute Distress, Anxious Eyes Eye Exam: Pupils Equal Throat Throat Exam: Oral Mucosa [place] & Moist Neck Neck Exam: Neck Supple Pulmonary Resp Exam: Breath Sounds Equal, No Distress, Rhonchi, Decreased Bases Cardiology CV Exam: Regular, Normal Sinus Rhythm Gastrointestinal/Abdomen GI Exam: Soft, Non-Tender, Bowel Sounds Present Extremeties Extremities Exam: Trace Edema Neurologic Neuro Exam: Alert, Awake Assessment/Plan Assessment Summary: THADDEUS/Acute Renal Failure Problem List: (1) Encephalopathy ICD Codes: G93.40 - Encephalopathy, unspecified Status: Acute (2) Essential hypertension ICD Codes: I10 - Essential (primary) hypertension Status: Acute (3) Hepatitis C, chronic ICD Codes: B18.2 - Chronic viral hepatitis C Status: Chronic (4) Abscess of right hand including fingers ICD Codes: L02.511 - Cutaneous abscess of right hand Status: Chronic (5) Abscess of left hand including fingers ICD Codes: L02.512 - Cutaneous abscess of left hand Status: Chronic (6) Alcoholism ICD Codes: F10.20 - Alcohol dependence, uncomplicated Status: Chronic (7) CHF (congestive heart failure) ICD Codes: I50.9 - Heart failure, unspecified Status: Acute (8) Sepsis ICD Codes: A41.9 - Sepsis, unspecified organism Status: Acute (9) ARF (acute renal failure) ICD Codes: N17.9 - Acute kidney failure, unspecified Status: Acute Plan Patient has Acute kidney injury and Creatinine now normalized. Initial hyponatremia improved after given one dose of Samsca on 04/09. Recurrent hyponatremia now. Has elevated urine Osmolality in past, possible SIADH. Clinically euvolemic. On NaCl, and Declomycin, fluid restriction.. Na trending slightly downward today: 127 -> 125. Will repeat tolvaptan 15mg x 1 dose, no fluid restriction over next 24-48 hours with tolvaptan dose. Problem Qualifiers (1) Sepsis: Jj Arteaga MD Apr 24, 2017 18:14
[2017-04-24] MEDS ORDERED: TOLVAPTAN 15 MG TAB PO ONE (18:15)
[2017-04-24 20:00] VITALS: BP 146/73; PULSE 71; RESP 18; TEMP 98.6; O2SAT 99
[2017-04-24] MEDS: PANTOPRAZOLE SODIUM 40 MG VIAL IV PUSH SCH ×2 (22:49)
[2017-04-25] VITALS: BP 111/56; PULSE 67; RESP 18; TEMP 99.3; O2SAT 97
[2017-04-25] MEDS: ACETAMINOPHEN/HYDROcodone 325 MG/7.5 MG TAB PO PRN ×3 (03:07→13:10)
[2017-04-25] MEDS: cloNIDine HCL 0.2 MG TAB PO SCH ×3 (03:09→20:34)
[2017-04-25 04:00] VITALS: BP 116/70; PULSE 75; RESP 18; TEMP 98.1; O2SAT 97
[2017-04-25] MEDS: LEVOTHYROXINE SODIUM 50 MCG TAB PO SCH (04:53)
[2017-04-25] MEDS: METHOCARBAMOL 500 MG TAB PO SCH ×2 (04:53→13:09)
[2017-04-25] MEDS: LORazepam 1 MG TAB PO PRN ×3 (04:55→17:15)
[2017-04-25 08:20] VITALS: BP 117/55; PULSE 74; RESP 20; TEMP 98.5; O2SAT 97
[2017-04-25 08:30] LABS: BICARBONATE 26.2 MEQ/L (21.0-32.0); POTASSIUM 4.1 MEQ/L (3.5-5.1)
[2017-04-25] MEDS: MUPIROCIN 2% OINT 1 APPLIC/GM SYR NASAL SCH ×2 (08:57→20:34)
[2017-04-25] MEDS: LISINOPRIL 5 MG TAB PO SCH (08:57)
[2017-04-25] MEDS: SODIUM CHLORIDE 1 GRAM TAB PO SCH ×3 (08:57→17:15)
[2017-04-25] MEDS: CARVEDILOL 6.25 MG TAB PO SCH ×2 (08:57→20:34)
[2017-04-25] MEDS: MULTIVITAMIN TAB PO SCH (08:58)
[2017-04-25] MEDS: THIAMINE HCL 100 MG TAB PO SCH (08:58)
[2017-04-25] MEDS: DEMECLOCYCLINE HCL 150 MG TAB PO SCH ×2 (08:58→20:34)
[2017-04-25 12:08] VITALS: BP 102/52; PULSE 84; RESP 18; TEMP 98.5; O2SAT 97
[2017-04-25] MEDS: ENOXAPARIN SODIUM 40 MG/0.4 ML SYRINGE SQ SCH (13:10)
--- NOTE | 2017-04-25 14:15 | HHI.NPPN ---
Subjective History of Present Illness 61 year old male with past medical history of hypertension, history of being homeless. He was admitted on February 25 with altered mental status and leukocytosis. I was called to see the patient because of elevated BUN and creatinine. Additional Remarks Patient is alert, no SOB, feeling better, tolerating PO intake Objective Data Data 04/25/17 04/26/17 19:00 07:00 Output Total 750 ml Balance -750 ml Output Urine Total 750 ml Vital Signs Date Time Temp Pulse Resp B/P (MAP) Pulse Ox O2 Delivery O2 Flow Rate FiO2 04/25/17 12:08 98.5 84 18 102/52 (69) 97 04/25/17 08:20 98.5 74 20 117/55 (75) 97 04/25/17 08:00 Room Air 04/25/17 04:00 Room Air 04/25/17 04:00 98.1 75 18 116/70 (85) 97 04/25/17 00:00 Room Air 04/25/17 00:00 99.3 67 18 111/56 (74) 97 04/24/17 20:00 98.6 71 18 146/73 (97) 99 04/24/17 20:00 Room Air 04/24/17 16:00 98.3 91 17 100/56 (71) 99 -: 04/25/17 0715 Physical Exam General Appearance: No Acute Distress, Anxious Eyes Eye Exam: Pupils Equal Throat Throat Exam: Oral Mucosa [place] & Moist Neck Neck Exam: Neck Supple Pulmonary Resp Exam: Breath Sounds Equal, No Distress, Rhonchi, Decreased Bases Cardiology CV Exam: Regular, Normal Sinus Rhythm Gastrointestinal/Abdomen GI Exam: Soft, Non-Tender, Bowel Sounds Present Extremeties Extremities Exam: Trace Edema Neurologic Neuro Exam: Alert, Awake Assessment/Plan Assessment Summary: THADDEUS/Acute Renal Failure Problem List: (1) Encephalopathy ICD Codes: G93.40 - Encephalopathy, unspecified Status: Acute (2) Essential hypertension ICD Codes: I10 - Essential (primary) hypertension Status: Acute (3) Hepatitis C, chronic ICD Codes: B18.2 - Chronic viral hepatitis C Status: Chronic (4) Abscess of right hand including fingers ICD Codes: L02.511 - Cutaneous abscess of right hand Status: Chronic (5) Abscess of left hand including fingers ICD Codes: L02.512 - Cutaneous abscess of left hand Status: Chronic (6) Alcoholism ICD Codes: F10.20 - Alcohol dependence, uncomplicated Status: Chronic (7) CHF (congestive heart failure) ICD Codes: I50.9 - Heart failure, unspecified Status: Acute (8) Sepsis ICD Codes: A41.9 - Sepsis, unspecified organism Status: Acute (9) ARF (acute renal failure) ICD Codes: N17.9 - Acute kidney failure, unspecified Status: Acute Plan Patient has Acute kidney injury and Creatinine now normalized. Initial hyponatremia improved after given one dose of Samsca on 04/09. Has elevated urine Osmolality in past, possible SIADH. Clinically euvolemic. Patient developed recurrent hyponatremia while on aCl, and Declomycin, fluid restriction (which he has apparently been non-complaint with). Na trending slightly downward today: 127 -> 125 yesterday: Given tolvaptan 15mg PO x 1 yesterday. Good response, with Na improved to 134. Continue to monitor, may need periodic tolvaptan.. Problem Qualifiers (1) Sepsis: Jj Arteaga MD Apr 25, 2017 14:15
--- NOTE | 2017-04-25 14:41 | HHI.PR ---
Subjective Remarks Follow up for MRSA bacteremia, right ankle hardware infection s/p right BKA, bilateral upper ext hand abscess. Patient is currently doing well. Denies any fever, chills. Reports back pain. Pain from right BKA is well controlled. Objective Vitals Vital Signs Date Time Temp Pulse Resp B/P (MAP) Pulse Ox O2 Delivery O2 Flow Rate FiO2 04/25/17 12:08 98.5 84 18 102/52 (69) 97 04/25/17 08:20 98.5 74 20 117/55 (75) 97 04/25/17 08:00 Room Air 04/25/17 04:00 Room Air 04/25/17 04:00 98.1 75 18 116/70 (85) 97 04/25/17 00:00 Room Air 04/25/17 00:00 99.3 67 18 111/56 (74) 97 04/24/17 20:00 98.6 71 18 146/73 (97) 99 04/24/17 20:00 Room Air 04/24/17 16:00 98.3 91 17 100/56 (71) 99 I/O 04/24/17 04/24/17 04/24/17 04/25/17 04/25/17 04/25/17 07:00 15:00 23:00 07:00 15:00 23:00 Intake Total 240 ml 480 ml Output Total 1200 ml 875 ml 1475 ml 750 ml Balance -960 ml -395 ml -1475 ml -750 ml Intake Oral 240 ml 480 ml Output Urine Total 1200 ml 875 ml 1475 ml 750 ml Result Diagram: 04/25/17 0715 Imaging Last Impressions Chest X-Ray 03/29/17 0000 Signed Impressions: Service Date/Time: Wednesday, March 29, 2017 12:17 - CONCLUSION: Stable chest. Isaac Stevenson MD FACR Tumor Localization 03/22/17 0000 Signed Impressions: Service Date/Time: Wednesday, March 22, 2017 13:03 - CONCLUSION: Nondiagnostic examination secondary to patient refusal Harry Lucio MD Abdomen X-Ray 03/08/17 0000 Signed Impressions: Service Date/Time: Wednesday, March 08, 2017 10:30 - CONCLUSION: Nonspecific, negative for obstruction or ileus. Isaac Stevenson MD FACR Lower Extremity CT 03/01/17 0000 Signed Impressions: Service Date/Time: Wednesday, March 01, 2017 11:12 - CONCLUSION: 1. No evidence of organized fluid collections to suggest an abscess. 2. Extensive soft tissue swelling surrounding the ankle and extending to the forefoot especially along the lateral aspect. 3. No erosive or destructive bone changes. 4. Bone defects compatible with previous excision device. Blake Rider MD Ankle X-Ray 02/26/17 0000 Signed Impressions: Service Date/Time: Sunday, February 26, 2017 17:15 - CONCLUSION: I see no retained surgical instruments. Isaac Stevenson MD FACR Upper Extremity Ultrasound 02/25/17 1734 Signed Impressions: Service Date/Time: February 17:54 - CONCLUSION: There is a thin fluid collection within the focal area of soft tissue swelling 2nd digit. Oscar Cassidy MD Hand X-Ray 02/25/17 0000 Signed Impressions: Service Date/Time: February 18:59 - CONCLUSION: No gross bony abnormality. Oscar Cassidy MD Lower Extremity Ultrasound 02/24/17 0000 Signed Impressions: Service Date/Time: Friday, February 24, 2017 13:41 - CONCLUSION: Negative for deep venous thrombosis. Isaac Stevenson MD FACR Head CT 02/24/17 0000 Signed Impressions: Service Date/Time: Friday, February 24, 2017 16:08 - CONCLUSION: 1. No acute intracranial abnormality. 2. Probable large mucocele in the sphenoid sinus. Ty Hankins MD Abdomen/Pelvis CT 02/24/17 0000 Signed Impressions: Service Date/Time: Friday, February 24, 2017 16:16 - CONCLUSION: 1. Marked gaseous distension of large and small bowel most suggestive of ileus. 2. There is no free air. 3. 2.2 cm left adrenal mass. 4. Distended bladder. Isaac Stevenson MD FACR Objective Remarks GENERAL: SKIN: Warm and dry. HEAD: Normocephalic. EYES: No scleral icterus. No injection or drainage. NECK: Supple, trachea midline. No JVD or lymphadenopathy. CARDIOVASCULAR: Regular rate and rhythm without murmurs, gallops, or rubs. RESPIRATORY: Breath sounds equal bilaterally. No accessory muscle use. GASTROINTESTINAL: Abdomen soft, non-tender, nondistended. MUSCULOSKELETAL: right forearm covered with clean dressing. s/p right BKA BACK: Nontender without obvious deformity. No CVA tenderness. Procedures 03/10/2017 - Dr. Bullock exploration, wash, excisional debridement extensor tenosynovium right wrist/forearm/hand 03/08/17 - Dr. Bullock- exploration, wash, excisional debridement skin, subcutaneous tissue, extensor tenosynovitis right wrist and hand. Findings: necrotic tissue, minimal purulence, extensor tenosynovitis right wrist/hand 03/04/17 - Dr Gamez - Right leg and incision and drainage. Right foot delayed primary closure x3 03/04/17 - Dr. Bullock - Extensor tenosynovectomy second, third, fourth extensor compartments right wrist and excisional debridement wash index finger metacarpal phalangeal joint, excisional wash and excisional debridement left hand. 02/28/17 - Dr. Reyes - Right ankle wound debridement and washout. Implantation of antibiotic vancomycin beads. 02/28/17 - Dr. Bullock - Exploration, wash, excisional debridement index finger metacarpophalangeal joint right hand; Exploration, wash, excisional debridement metacarpophalangeal joint left index finger; Exploration, wash, excisional debridement extensor pollicis longus tendon right thumb and hand. 02/26/17 - Dr. Reyes - Right ankle incision and drainage, arthrotomy, removal infected hardware, bone biopsy. 02/26/17 - Dr. Bullock - Exploration, incision and drainage right hand abscess, Arthrotomy wash metacarpal phalangeal joint right index finger, Arthrotomy wash metacarpal phalangeal joint left index finger. A/P Problem List: (1) Sepsis ICD Code: A41.9 - Sepsis, unspecified organism Status: Acute (2) Right foot infection ICD Code: L08.9 - Local infection of the skin and subcutaneous tissue, unspecified Status: Acute (3) Encephalopathy ICD Code: G93.40 - Encephalopathy, unspecified Status: Acute (4) Alcoholism ICD Code: F10.20 - Alcohol dependence, uncomplicated Status: Chronic (5) Hypothyroidism ICD Code: E03.9 - Hypothyroidism, unspecified Assessment and Plan 61-year-old male with history of right foot hardware, HTN, alcohol abuse, Hepatitis C, admitted with sepsis, MRSA bacteremia and septic joints. 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 distant showering of emboli to other joints. MRSA bacteremia Right ankle hardware infection, s/p partial removal of hardware. Deeper hardware embedded. SP RIGHT BKA Bilateral UE hand abscess and tenosynovitis, septic arthritis s.p multiple d bridements. - Finished the course of Daptomycin. - ID signed off on 04/23/2017. - Continue pain control. - Multiple surgeries thus far: - podiatry Dr. Reyes/Dr. Gamez on 02/26, 02/28, 03/04 - hand surgeon Dr. Bullock on 02/26, 02/28, 03/04, 03/08, 03/10 - right BKA - sutures to be removed per Dr. Martinez (Surgery). chronic Systolic CHF - EF of 40-45% with global hypokinesis found on 02/28/17 - Continue Carvedilol 6.25mg Q12hrs, Lisinopril 2.5mg Qday. Hyponatremia, possibly SIADH - Na 123, 124 --> 134. - continue fluid restriction. - patient previously received Tolvaptan - started on sodium tablet and Demeclocycline. - Per nephrology, patient may need periodic Tolvaptan. Full code. Lovenox. Problem Qualifiers (1) Sepsis: Zee Velasquez DO Apr 25, 2017 14:41
[2017-04-25 16:47] VITALS: BP 111/63; PULSE 70; RESP 18; TEMP 98.3; O2SAT 97
[2017-04-25] MEDS: oxyCODONE/ACETAMINOPHEN 10 MG/325 MG TAB PO PRN (17:15)
[2017-04-25 20:00] VITALS: BP_SYST 127; BP_SYST 130; BP_DIAS 60; BP_DIAS 69; PULSE 74; PULSE 82; RESP 16; RESP 18; TEMP 98; TEMP 98.7; O2SAT 97
[2017-04-25] MEDS: CARISOPRODOL 350 MG TAB PO PRN (20:34)
[2017-04-26] VITALS: BP 137/65; PULSE 80; RESP 18; TEMP 99; O2SAT 98
[2017-04-26] MEDS: oxyCODONE/ACETAMINOPHEN 10 MG/325 MG TAB PO PRN ×4 (00:16→22:59)
[2017-04-26] MEDS: LORazepam 1 MG TAB PO PRN ×3 (00:16→22:59)
[2017-04-26] MEDS: PANTOPRAZOLE SODIUM 40 MG VIAL IV PUSH SCH ×2 (00:16→23:00)
[2017-04-26 04:00] VITALS: BP_SYST 139; BP_SYST 141; BP_DIAS 68; PULSE 71; PULSE 89; RESP 16; RESP 18; TEMP 98.5; TEMP 99.5; O2SAT 96; O2SAT 97
[2017-04-26] MEDS: cloNIDine HCL 0.2 MG TAB PO SCH ×3 (04:56→21:01)
[2017-04-26] MEDS: LEVOTHYROXINE SODIUM 50 MCG TAB PO SCH (04:56)
[2017-04-26 08:00] VITALS: BP 149/70; PULSE 81; RESP 18; TEMP 97.9; O2SAT 97
[2017-04-26] MEDS: THIAMINE HCL 100 MG TAB PO SCH (09:08)
[2017-04-26] MEDS: MULTIVITAMIN TAB PO SCH (09:08)
[2017-04-26] MEDS: LISINOPRIL 5 MG TAB PO SCH (09:09)
[2017-04-26] MEDS: SODIUM CHLORIDE 1 GRAM TAB PO SCH ×3 (09:10→18:00)
[2017-04-26] MEDS: CARVEDILOL 6.25 MG TAB PO SCH ×2 (09:10→21:01)
[2017-04-26] MEDS: MUPIROCIN 2% OINT 1 APPLIC/GM SYR NASAL SCH ×2 (09:10→21:02)
[2017-04-26] MEDS: CARISOPRODOL 350 MG TAB PO PRN ×2 (09:23→18:28)
[2017-04-26] MEDS: DEMECLOCYCLINE HCL 150 MG TAB PO SCH ×2 (09:23→21:01)
--- NOTE | 2017-04-26 11:06 | HHI.PR ---
Subjective Remarks Follow up for MRSA bacteremia, right ankle hardware infection s/p right BKA, bilateral upper ext hand abscess. Patient is currently doing well. Denies any chest pain, shortness of breath, fever or chills. Objective Vitals Vital Signs Date Time Temp Pulse Resp B/P (MAP) Pulse Ox O2 Delivery O2 Flow Rate FiO2 04/26/17 09:25 97 Room Air 04/26/17 08:00 97.9 81 18 149/70 (96) 97 04/26/17 04:00 98.5 89 18 141/68 (92) 97 04/26/17 00:00 99.0 80 18 137/65 (89) 98 04/26/17 00:00 Room Air 04/26/17 00:00 Room Air 04/25/17 20:00 98.0 74 18 130/60 (83) 97 04/25/17 20:00 Room Air 04/25/17 16:47 98.3 70 18 111/63 (79) 97 04/25/17 12:08 98.5 84 18 102/52 (69) 97 I/O 04/25/17 04/25/17 04/25/17 04/26/17 04/26/17 04/26/17 07:00 15:00 23:00 07:00 15:00 23:00 Intake Total 650 ml Output Total 1475 ml 750 ml 1200 ml 600 ml Balance -1475 ml -750 ml -550 ml -600 ml Intake Oral 650 ml Output Urine Total 1475 ml 750 ml 1200 ml 600 ml Stool Total 0 ml Result Diagram: 04/25/17 0715 Imaging Last Impressions Chest X-Ray 03/29/17 0000 Signed Impressions: Service Date/Time: Wednesday, March 29, 2017 12:17 - CONCLUSION: Stable chest. Isaac Stevenson MD FACR Tumor Localization 03/22/17 0000 Signed Impressions: Service Date/Time: Wednesday, March 22, 2017 13:03 - CONCLUSION: Nondiagnostic examination secondary to patient refusal Harry Lucio MD Abdomen X-Ray 03/08/17 0000 Signed Impressions: Service Date/Time: Wednesday, March 08, 2017 10:30 - CONCLUSION: Nonspecific, negative for obstruction or ileus. Isaac Stevenson MD FACR Lower Extremity CT 03/01/17 0000 Signed Impressions: Service Date/Time: Wednesday, March 01, 2017 11:12 - CONCLUSION: 1. No evidence of organized fluid collections to suggest an abscess. 2. Extensive soft tissue swelling surrounding the ankle and extending to the forefoot especially along the lateral aspect. 3. No erosive or destructive bone changes. 4. Bone defects compatible with previous excision device. Blake Rider MD Ankle X-Ray 02/26/17 0000 Signed Impressions: Service Date/Time: Sunday, February 26, 2017 17:15 - CONCLUSION: I see no retained surgical instruments. Isaac Stevenson MD FACR Upper Extremity Ultrasound 02/25/17 1734 Signed Impressions: Service Date/Time: February 17:54 - CONCLUSION: There is a thin fluid collection within the focal area of soft tissue swelling 2nd digit. Oscar Cassidy MD Hand X-Ray 02/25/17 0000 Signed Impressions: Service Date/Time: February 18:59 - CONCLUSION: No gross bony abnormality. Oscar Cassidy MD Lower Extremity Ultrasound 02/24/17 0000 Signed Impressions: Service Date/Time: Friday, February 24, 2017 13:41 - CONCLUSION: Negative for deep venous thrombosis. Isaac Stevenson MD FACR Head CT 02/24/17 0000 Signed Impressions: Service Date/Time: Friday, February 24, 2017 16:08 - CONCLUSION: 1. No acute intracranial abnormality. 2. Probable large mucocele in the sphenoid sinus. Ty Hankins MD Abdomen/Pelvis CT 02/24/17 0000 Signed Impressions: Service Date/Time: Friday, February 24, 2017 16:16 - CONCLUSION: 1. Marked gaseous distension of large and small bowel most suggestive of ileus. 2. There is no free air. 3. 2.2 cm left adrenal mass. 4. Distended bladder. Isaac Stevenson MD FACR Objective Remarks GENERAL: SKIN: Warm and dry. HEAD: Normocephalic. EYES: No scleral icterus. No injection or drainage. NECK: Supple, trachea midline. No JVD or lymphadenopathy. CARDIOVASCULAR: Regular rate and rhythm without murmurs, gallops, or rubs. RESPIRATORY: Breath sounds equal bilaterally. No accessory muscle use. GASTROINTESTINAL: Abdomen soft, non-tender, nondistended. MUSCULOSKELETAL: right forearm covered with clean dressing. s/p right BKA BACK: Nontender without obvious deformity. No CVA tenderness. Procedures 03/10/2017 - Dr. Bullock exploration, wash, excisional debridement extensor tenosynovium right wrist/forearm/hand 03/08/17 - Dr. Bullock- exploration, wash, excisional debridement skin, subcutaneous tissue, extensor tenosynovitis right wrist and hand. Findings: necrotic tissue, minimal purulence, extensor tenosynovitis right wrist/hand 03/04/17 - Dr Gamez - Right leg and incision and drainage. Right foot delayed primary closure x3 03/04/17 - Dr. Bullock - Extensor tenosynovectomy second, third, fourth extensor compartments right wrist and excisional debridement wash index finger metacarpal phalangeal joint, excisional wash and excisional debridement left hand. 02/28/17 - Dr. Reyes - Right ankle wound debridement and washout. Implantation of antibiotic vancomycin beads. 02/28/17 - Dr. Bullock - Exploration, wash, excisional debridement index finger metacarpophalangeal joint right hand; Exploration, wash, excisional debridement metacarpophalangeal joint left index finger; Exploration, wash, excisional debridement extensor pollicis longus tendon right thumb and hand. 02/26/17 - Dr. Reyes - Right ankle incision and drainage, arthrotomy, removal infected hardware, bone biopsy. 02/26/17 - Dr. Bullock - Exploration, incision and drainage right hand abscess, Arthrotomy wash metacarpal phalangeal joint right index finger, Arthrotomy wash metacarpal phalangeal joint left index finger. A/P Problem List: (1) Sepsis ICD Code: A41.9 - Sepsis, unspecified organism Status: Acute (2) Right foot infection ICD Code: L08.9 - Local infection of the skin and subcutaneous tissue, unspecified Status: Acute (3) Encephalopathy ICD Code: G93.40 - Encephalopathy, unspecified Status: Acute (4) Alcoholism ICD Code: F10.20 - Alcohol dependence, uncomplicated Status: Chronic (5) Hypothyroidism ICD Code: E03.9 - Hypothyroidism, unspecified Assessment and Plan 61-year-old male with history of right foot hardware, HTN, alcohol abuse, Hepatitis C, admitted with sepsis, MRSA bacteremia and septic joints. 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 distant showering of emboli to other joints. MRSA bacteremia Right ankle hardware infection, s/p partial removal of hardware. Deeper hardware embedded. SP RIGHT BKA Bilateral UE hand abscess and tenosynovitis, septic arthritis s.p multiple d bridements. - Finished the course of Daptomycin. - ID signed off on 04/23/2017. - Continue pain control. - Multiple surgeries thus far: - podiatry Dr. Reyes/Dr. Gamez on 02/26, 02/28, 03/04 - hand surgeon Dr. Bullock on 02/26, 02/28, 03/04, 03/08, 03/10 - right BKA - sutures to be removed per Dr. Martinez (Surgery). chronic Systolic CHF - EF of 40-45% with global hypokinesis found on 02/28/17 - Continue Carvedilol 6.25mg Q12hrs, Lisinopril 2.5mg Qday. Hyponatremia, possibly SIADH - Na 123, 124 --> 134. - continue fluid restriction. - patient previously received Tolvaptan - started on sodium tablet and Demeclocycline. - Per nephrology, patient may need periodic Tolvaptan. - No major change in plan. Full code. Lovenox. Difficult to discharge patient safely. Discussed with CM who continues to work on safe discharge. Problem Qualifiers (1) Sepsis: Zee Velasquez DO Apr 26, 2017 11:06 am
[2017-04-26 12:00] VITALS: BP 113/56; PULSE 82; RESP 19; TEMP 97.9; O2SAT 96
[2017-04-26 12:10] LABS: AUTOMATED NEUTROPHIL # 5.5 TH/MM3 (1.8-7.7); BASOPHIL # 0.1 TH/MM3 (0-0.2); BASOPHIL % 0.7 % (0.0-2.0); EOSINOPHIL # 0.6 TH/MM3 (0-0.4); EOSINOPHIL % 7.2 % (0.0-4.0); HEMATOCRIT 30.6 % (39.0-51.0); HEMO FLAGS DIFF FINAL; LYMPH % 16.3 % (9.0-44.0); LYMPHOCYTE # 1.4 TH/MM3 (1.0-4.8); MEAN CELL VOLUME 88.4 FL (80.0-100.0); MEAN CORPUSCULAR HEMOGLOBIN 29.1 PG (27.0-34.0); MONO % 10.3 % (0.0-8.0); NEUT % 65.5 % (16.0-70.0); PLATELET COUNT 483 TH/MM3 (150-450); RED BLOOD COUNT 3.46 MIL/MM3 (4.50-5.90); RED CELL DISTRIBUTION WIDTH 18.2 % (11.6-17.2); WHITE BLOOD COUNT 8.4 TH/MM3 (4.0-11.0)
[2017-04-26 12:30] LABS: BICARBONATE 24.2 MEQ/L (21.0-32.0); POTASSIUM 4.2 MEQ/L (3.5-5.1)
[2017-04-26 16:00] VITALS: BP 150/75; PULSE 77; RESP 18; TEMP 98.6; O2SAT 98
[2017-04-26] MEDS: ENOXAPARIN SODIUM 40 MG/0.4 ML SYRINGE SQ SCH (16:20)
--- NOTE | 2017-04-26 17:18 | HHI.NPPN ---
Subjective History of Present Illness 61 year old male with past medical history of hypertension, history of being homeless. He was admitted on February 25 with altered mental status and leukocytosis. I was called to see the patient because of elevated BUN and creatinine. Additional Remarks Patient is alert, eating well and following fluid restriction, no complain. Objective Data Data Vital Signs Date Time Temp Pulse Resp B/P (MAP) Pulse Ox O2 Delivery O2 Flow Rate FiO2 04/26/17 12:00 97.9 82 19 113/56 (75) 96 04/26/17 09:25 97 Room Air 04/26/17 08:00 97.9 81 18 149/70 (96) 97 04/26/17 04:00 98.5 89 18 141/68 (92) 97 04/26/17 00:00 99.0 80 18 137/65 (89) 98 04/26/17 00:00 Room Air 04/26/17 00:00 Room Air 04/25/17 20:00 98.0 74 18 130/60 (83) 97 04/25/17 20:00 Room Air -: 04/26/17 1030 04/26/17 1050 Physical Exam General Appearance: No Acute Distress, Anxious Eyes Eye Exam: Pupils Equal Throat Throat Exam: Oral Mucosa [place] & Moist Neck Neck Exam: Neck Supple Pulmonary Resp Exam: Breath Sounds Equal, No Distress, Rhonchi, Decreased Bases Cardiology CV Exam: Regular, Normal Sinus Rhythm Gastrointestinal/Abdomen GI Exam: Soft, Non-Tender, Bowel Sounds Present Extremeties Extremities Exam: Trace Edema Neurologic Neuro Exam: Alert, Awake Assessment/Plan Assessment Summary: THADDEUS/Acute Renal Failure Problem List: (1) Encephalopathy ICD Codes: G93.40 - Encephalopathy, unspecified Status: Acute (2) Essential hypertension ICD Codes: I10 - Essential (primary) hypertension Status: Acute (3) Hepatitis C, chronic ICD Codes: B18.2 - Chronic viral hepatitis C Status: Chronic (4) Abscess of right hand including fingers ICD Codes: L02.511 - Cutaneous abscess of right hand Status: Chronic (5) Abscess of left hand including fingers ICD Codes: L02.512 - Cutaneous abscess of left hand Status: Chronic (6) Alcoholism ICD Codes: F10.20 - Alcohol dependence, uncomplicated Status: Chronic (7) CHF (congestive heart failure) ICD Codes: I50.9 - Heart failure, unspecified Status: Acute (8) Sepsis ICD Codes: A41.9 - Sepsis, unspecified organism Status: Acute (9) ARF (acute renal failure) ICD Codes: N17.9 - Acute kidney failure, unspecified Status: Acute Plan Patient has Acute kidney injury and Creatinine now normalized. Has elevated urine Osmolality, possible SIADH. Clinically euvolemic. Need to continue fluid restriction. On NaCl, and Declomycin. Got one dose of Samsca on 04/24. Na. is now 134. Possible D/C once arrangements done. Problem Qualifiers (1) Sepsis: Diane Barker MD Apr 26, 2017 17:18
[2017-04-26 20:00] VITALS: BP 149/75; PULSE 86; RESP 18; TEMP 98.7; O2SAT 98
[2017-04-27] VITALS: BP 135/64; PULSE 78; RESP 18; TEMP 98.7; O2SAT 98
[2017-04-27 04:00] VITALS: BP 115/73; PULSE 72; RESP 16; TEMP 98.3; O2SAT 97
[2017-04-27] MEDS: LEVOTHYROXINE SODIUM 50 MCG TAB PO SCH (05:04)
[2017-04-27] MEDS: oxyCODONE/ACETAMINOPHEN 10 MG/325 MG TAB PO PRN ×4 (05:05→23:57)
[2017-04-27] MEDS: cloNIDine HCL 0.2 MG TAB PO SCH ×3 (05:05→21:03)
[2017-04-27 08:00] VITALS: BP 128/71; PULSE 72; RESP 20; TEMP 97.9; O2SAT 99
[2017-04-27] MEDS: DEMECLOCYCLINE HCL 150 MG TAB PO SCH ×2 (09:17→21:03)
[2017-04-27] MEDS: CARISOPRODOL 350 MG TAB PO PRN ×2 (09:17→18:00)
[2017-04-27] MEDS: MUPIROCIN 2% OINT 1 APPLIC/GM SYR NASAL SCH ×2 (09:17→21:03)
[2017-04-27] MEDS: MULTIVITAMIN TAB PO SCH (09:18)
[2017-04-27] MEDS: LISINOPRIL 5 MG TAB PO SCH (09:18)
[2017-04-27] MEDS: CARVEDILOL 6.25 MG TAB PO SCH ×2 (09:18→21:03)
[2017-04-27] MEDS: SODIUM CHLORIDE 1 GRAM TAB PO SCH ×3 (09:18→18:00)
[2017-04-27] MEDS: THIAMINE HCL 100 MG TAB PO SCH (09:18)
[2017-04-27] MEDS ORDERED: LACTULOSE SYRUP 20 GM/30 ML CUP PO PRN (09:30)
[2017-04-27] MEDS ORDERED: SENNOSIDES 8.6 MG TAB PO PRN (09:30)
[2017-04-27] MEDS ORDERED: NALOXONE HCL 0.4 MG/ML AMP IV PUSH PRN (09:30)
[2017-04-27] MEDS ORDERED: MAGNESIUM HYDROXIDE SUSP 30 ML CUP PO PRN (09:30)
--- NOTE | 2017-04-27 10:56 | HHI.PR ---
Subjective Remarks Follow up for MRSA bacteremia, right ankle hardware infection s/p right BKA, bilateral upper ext hand abscess. Patient is doing well. No acute concerns. Having trouble sleeping well though. Objective Vitals Vital Signs Date Time Temp Pulse Resp B/P (MAP) Pulse Ox O2 Delivery O2 Flow Rate FiO2 04/27/17 08:00 Room Air 04/27/17 08:00 97.9 72 20 128/71 (90) 99 04/27/17 04:00 98.3 72 16 115/73 (87) 97 04/27/17 00:00 98.7 78 18 135/64 (87) 98 04/26/17 20:00 98.7 86 18 149/75 (99) 98 04/26/17 16:00 98.6 77 18 150/75 (100) 98 04/26/17 12:00 97.9 82 19 113/56 (75) 96 I/O 04/26/17 04/26/17 04/26/17 04/27/17 04/27/17 04/27/17 07:00 15:00 23:00 07:00 15:00 23:00 Intake Total 740 ml Output Total 600 ml 1200 ml 2600 ml Balance -600 ml -460 ml -2600 ml Intake Oral 740 ml Output Urine Total 600 ml 1200 ml 2600 ml # Voids 3 # Bowel Movements 0 Result Diagram: 04/26/17 1030 04/26/17 1050 Objective Remarks GENERAL: SKIN: Warm and dry. HEAD: Normocephalic. EYES: No scleral icterus. No injection or drainage. NECK: Supple, trachea midline. No JVD or lymphadenopathy. CARDIOVASCULAR: Regular rate and rhythm without murmurs, gallops, or rubs. RESPIRATORY: Breath sounds equal bilaterally. No accessory muscle use. GASTROINTESTINAL: Abdomen soft, non-tender, nondistended. MUSCULOSKELETAL: right forearm covered with clean dressing. s/p right BKA BACK: Nontender without obvious deformity. No CVA tenderness. Procedures 03/10/2017 - Dr. Bullock exploration, wash, excisional debridement extensor tenosynovium right wrist/forearm/hand 03/08/17 - Dr. Bullock- exploration, wash, excisional debridement skin, subcutaneous tissue, extensor tenosynovitis right wrist and hand. Findings: necrotic tissue, minimal purulence, extensor tenosynovitis right wrist/hand 03/04/17 - Dr Gamez - Right leg and incision and drainage. Right foot delayed primary closure x3 03/04/17 - Dr. Bullock - Extensor tenosynovectomy second, third, fourth extensor compartments right wrist and excisional debridement wash index finger metacarpal phalangeal joint, excisional wash and excisional debridement left hand. 02/28/17 - Dr. Reyes - Right ankle wound debridement and washout. Implantation of antibiotic vancomycin beads. 02/28/17 - Dr. Bullock - Exploration, wash, excisional debridement index finger metacarpophalangeal joint right hand; Exploration, wash, excisional debridement metacarpophalangeal joint left index finger; Exploration, wash, excisional debridement extensor pollicis longus tendon right thumb and hand. 02/26/17 - Dr. Reyes - Right ankle incision and drainage, arthrotomy, removal infected hardware, bone biopsy. 02/26/17 - Dr. Bullock - Exploration, incision and drainage right hand abscess, Arthrotomy wash metacarpal phalangeal joint right index finger, Arthrotomy wash metacarpal phalangeal joint left index finger. A/P Problem List: (1) Sepsis ICD Code: A41.9 - Sepsis, unspecified organism Status: Acute (2) Right foot infection ICD Code: L08.9 - Local infection of the skin and subcutaneous tissue, unspecified Status: Acute (3) Encephalopathy ICD Code: G93.40 - Encephalopathy, unspecified Status: Acute (4) Alcoholism ICD Code: F10.20 - Alcohol dependence, uncomplicated Status: Chronic (5) Hypothyroidism ICD Code: E03.9 - Hypothyroidism, unspecified Assessment and Plan 61-year-old male with history of right foot hardware, HTN, alcohol abuse, Hepatitis C, admitted with sepsis, MRSA bacteremia and septic joints. 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 distant showering of emboli to other joints. MRSA bacteremia Right ankle hardware infection, s/p partial removal of hardware. Deeper hardware embedded. SP RIGHT BKA Bilateral UE hand abscess and tenosynovitis, septic arthritis s.p multiple d bridements. - Finished the course of Daptomycin. - ID signed off on 04/23/2017. - Continue pain control. - Multiple surgeries thus far: - podiatry Dr. Reyes/Dr. Gamez on 02/26, 02/28, 03/04 - hand surgeon Dr. Bullock on 02/26, 02/28, 03/04, 03/08, 03/10 - right BKA - sutures to be removed per Dr. Martinez (Surgery), likely prior to discharge. chronic Systolic CHF - EF of 40-45% with global hypokinesis found on 02/28/17 - Continue Carvedilol 6.25mg Q12hrs, Lisinopril 2.5mg Qday. Hyponatremia, possibly SIADH - Na 123, 124 --> 134. - continue fluid restriction. - patient previously received Tolvaptan - started on sodium tablet and Demeclocycline. - Per nephrology, patient may need periodic Tolvaptan. Full code. Lovenox. Difficult to discharge patient safely. Discussed with CM who continues to work on safe discharge. Problem Qualifiers (1) Sepsis: Zee Velasquez DO Apr 27, 2017 10:56 am
[2017-04-27 12:00] VITALS: BP 140/67; PULSE 82; RESP 22; TEMP 97.8; O2SAT 98
[2017-04-27] MEDS: ENOXAPARIN SODIUM 40 MG/0.4 ML SYRINGE SQ SCH (12:01)
[2017-04-27 16:00] VITALS: BP 92/54; PULSE 62; RESP 18; TEMP 98.4; O2SAT 98
[2017-04-27 20:00] VITALS: BP 124/70; PULSE 74; RESP 18; TEMP 99.9
[2017-04-27] MEDS: LORazepam 1 MG TAB PO PRN (21:14)
[2017-04-27] MEDS: PANTOPRAZOLE SODIUM 40 MG VIAL IV PUSH SCH (23:57)
[2017-04-28] MEDS: CARISOPRODOL 350 MG TAB PO PRN ×3 (02:00→18:16)
[2017-04-28 04:00] VITALS: BP 137/73; PULSE 73; RESP 18; TEMP 98.2; O2SAT 98
[2017-04-28] MEDS: oxyCODONE/ACETAMINOPHEN 10 MG/325 MG TAB PO PRN ×3 (05:57→18:07)
[2017-04-28] MEDS: cloNIDine HCL 0.2 MG TAB PO SCH ×3 (05:57→20:00)
[2017-04-28] MEDS: LEVOTHYROXINE SODIUM 50 MCG TAB PO SCH (05:57)
[2017-04-28] MEDS: LORazepam 1 MG TAB PO PRN (05:57)
[2017-04-28 08:00] VITALS: BP 130/68; PULSE 69; RESP 18; TEMP 98.5; O2SAT 98
[2017-04-28] MEDS: THIAMINE HCL 100 MG TAB PO SCH (08:58)
[2017-04-28] MEDS: SODIUM CHLORIDE 1 GRAM TAB PO SCH ×3 (08:58→18:08)
[2017-04-28] MEDS: DEMECLOCYCLINE HCL 150 MG TAB PO SCH ×2 (08:58→21:17)
[2017-04-28] MEDS: MULTIVITAMIN TAB PO SCH (08:58)
[2017-04-28] MEDS: CARVEDILOL 6.25 MG TAB PO SCH ×2 (08:58→21:00)
[2017-04-28] MEDS: LISINOPRIL 5 MG TAB PO SCH (08:58)
[2017-04-28] MEDS: MUPIROCIN 2% OINT 1 APPLIC/GM SYR NASAL SCH ×2 (08:58→21:17)
--- NOTE | 2017-04-28 09:56 | HHI.PR ---
Subjective Remarks Follow up for MRSA bacteremia, right ankle hardware infection s/p right BKA, bilateral upper ext hand abscess. Patient is doing well. No fever, chills. Complains of some muscle spasms. Objective Vitals Vital Signs Date Time Temp Pulse Resp B/P (MAP) Pulse Ox O2 Delivery O2 Flow Rate FiO2 04/28/17 08:00 98.5 69 18 130/68 (88) 98 04/28/17 04:00 98.2 73 18 137/73 (94) 98 04/27/17 21:01 Room Air 04/27/17 20:00 99.9 74 18 124/70 (88) 04/27/17 16:00 98.4 62 18 92/54 (67) 98 04/27/17 12:00 97.8 82 22 140/67 (91) 98 04/27/17 10:22 20 I/O 04/27/17 04/27/17 04/27/17 04/28/17 04/28/17 04/28/17 07:00 15:00 23:00 07:00 15:00 23:00 Intake Total 340 ml Output Total 2600 ml 1475 ml 500 ml Balance -2600 ml -1135 ml -500 ml Intake Oral 340 ml Output Urine Total 2600 ml 1475 ml 500 ml # Voids 1 # Bowel Movements 1 Result Diagram: 04/26/17 1030 04/26/17 1050 Objective Remarks GENERAL: SKIN: Warm and dry. HEAD: Normocephalic. EYES: No scleral icterus. No injection or drainage. NECK: Supple, trachea midline. No JVD or lymphadenopathy. CARDIOVASCULAR: Regular rate and rhythm without murmurs, gallops, or rubs. RESPIRATORY: Breath sounds equal bilaterally. No accessory muscle use. GASTROINTESTINAL: Abdomen soft, non-tender, nondistended. MUSCULOSKELETAL: right forearm covered with clean dressing. s/p right BKA BACK: Nontender without obvious deformity. No CVA tenderness. Procedures 03/10/2017 - Dr. Bullock exploration, wash, excisional debridement extensor tenosynovium right wrist/forearm/hand 03/08/17 - Dr. Bullock- exploration, wash, excisional debridement skin, subcutaneous tissue, extensor tenosynovitis right wrist and hand. Findings: necrotic tissue, minimal purulence, extensor tenosynovitis right wrist/hand 03/04/17 - Dr Gamez - Right leg and incision and drainage. Right foot delayed primary closure x3 03/04/17 - Dr. Bullock - Extensor tenosynovectomy second, third, fourth extensor compartments right wrist and excisional debridement wash index finger metacarpal phalangeal joint, excisional wash and excisional debridement left hand. 02/28/17 - Dr. Reyes - Right ankle wound debridement and washout. Implantation of antibiotic vancomycin beads. 02/28/17 - Dr. Bullock - Exploration, wash, excisional debridement index finger metacarpophalangeal joint right hand; Exploration, wash, excisional debridement metacarpophalangeal joint left index finger; Exploration, wash, excisional debridement extensor pollicis longus tendon right thumb and hand. 02/26/17 - Dr. Reyes - Right ankle incision and drainage, arthrotomy, removal infected hardware, bone biopsy. 02/26/17 - Dr. Bullock - Exploration, incision and drainage right hand abscess, Arthrotomy wash metacarpal phalangeal joint right index finger, Arthrotomy wash metacarpal phalangeal joint left index finger. A/P Problem List: (1) Sepsis ICD Code: A41.9 - Sepsis, unspecified organism Status: Acute (2) Right foot infection ICD Code: L08.9 - Local infection of the skin and subcutaneous tissue, unspecified Status: Acute (3) Encephalopathy ICD Code: G93.40 - Encephalopathy, unspecified Status: Acute (4) Alcoholism ICD Code: F10.20 - Alcohol dependence, uncomplicated Status: Chronic (5) Hypothyroidism ICD Code: E03.9 - Hypothyroidism, unspecified Assessment and Plan 61-year-old male with history of right foot hardware, HTN, alcohol abuse, Hepatitis C, admitted with sepsis, MRSA bacteremia and septic joints. 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 distant showering of emboli to other joints. MRSA bacteremia Right ankle hardware infection, s/p partial removal of hardware. Deeper hardware embedded. SP RIGHT BKA Bilateral UE hand abscess and tenosynovitis, septic arthritis s.p multiple d bridements. - Finished the course of Daptomycin. - ID signed off on 04/23/2017. - Continue pain control. - Multiple surgeries thus far: - podiatry Dr. Reyes/Dr. Gamez on 02/26, 02/28, 03/04 - hand surgeon Dr. Bullock on 02/26, 02/28, 03/04, 03/08, 03/10 - right BKA - sutures to be removed per Dr. Martinez (Surgery), likely prior to discharge. chronic Systolic CHF - EF of 40-45% with global hypokinesis found on 02/28/17 - Continue Carvedilol 6.25mg Q12hrs, Lisinopril 2.5mg Qday. Hyponatremia, possibly SIADH - Na 123, 124 --> 134. - continue fluid restriction. - patient previously received Tolvaptan - started on sodium tablet and Demeclocycline. - Per nephrology, patient may need periodic Tolvaptan. Full code. Lovenox. Difficult to place. CM is working with patient's father regarding placement. Problem Qualifiers (1) Sepsis: Zee Velasquez DO Apr 28, 2017 9:56 am
[2017-04-28 12:00] VITALS: BP 107/59; PULSE 70; RESP 18; TEMP 98.1; O2SAT 98
[2017-04-28] MEDS: ENOXAPARIN SODIUM 40 MG/0.4 ML SYRINGE SQ SCH (12:43)
[2017-04-28 16:00] VITALS: BP 114/59; PULSE 69; RESP 16; TEMP 98.2; O2SAT 98
[2017-04-28 20:00] VITALS: BP 92/50; PULSE 70; RESP 20; TEMP 98.2; O2SAT 98
[2017-04-28] MEDS: LORazepam 2 MG/ML VIAL IV PUSH PRN (21:25)
[2017-04-29] VITALS: BP 146/70; PULSE 71; RESP 16; TEMP 98.1; O2SAT 99
[2017-04-29] MEDS: PANTOPRAZOLE SODIUM 40 MG VIAL IV PUSH SCH (01:42)
[2017-04-29] MEDS: oxyCODONE/ACETAMINOPHEN 10 MG/325 MG TAB PO PRN ×3 (01:42→11:57)
[2017-04-29] MEDS: CARISOPRODOL 350 MG TAB PO PRN ×2 (03:56→12:13)
[2017-04-29] MEDS: cloNIDine HCL 0.2 MG TAB PO SCH ×2 (03:56→11:57)
[2017-04-29 04:00] VITALS: BP 151/68; PULSE 80; RESP 16; TEMP 98.4; O2SAT 98
[2017-04-29] MEDS: LEVOTHYROXINE SODIUM 50 MCG TAB PO SCH (05:36)
[2017-04-29 08:00] VITALS: BP 137/81; PULSE 83; RESP 20; TEMP 98.9; O2SAT 99
[2017-04-29] MEDS: DEMECLOCYCLINE HCL 150 MG TAB PO SCH (08:34)
[2017-04-29] MEDS: THIAMINE HCL 100 MG TAB PO SCH (08:34)
[2017-04-29] MEDS: SODIUM CHLORIDE 1 GRAM TAB PO SCH (08:34)
[2017-04-29] MEDS: MULTIVITAMIN TAB PO SCH (08:34)
[2017-04-29] MEDS: MUPIROCIN 2% OINT 1 APPLIC/GM SYR NASAL SCH (08:35)
[2017-04-29] MEDS: LISINOPRIL 5 MG TAB PO SCH (08:35)
[2017-04-29] MEDS: CARVEDILOL 6.25 MG TAB PO SCH (08:35)
[2017-04-29] MEDS: LORazepam 1 MG TAB PO PRN (09:31)
[2017-04-29] MEDS ORDERED: LEVO.05 PO (11:37)
[2017-04-29] MEDS ORDERED: DEME150T2 PO (11:37)
[2017-04-29] MEDS ORDERED: CARV6.25 PO (11:37)
[2017-04-29] MEDS ORDERED: OXYC1TAB36 PO (11:37)
[2017-04-29] MEDS ORDERED: CLON.2 PO (11:37)
[2017-04-29] MEDS ORDERED: LISI-519 PO (11:37)
[2017-04-29] MEDS ORDERED: CARI350T25 PO (11:37)
[2017-04-29] MEDS ORDERED: PROT40TA PO (11:37)
[2017-04-29] MEDS ORDERED: BACTOIN NASAL (11:37)
[2017-04-29] MEDS ORDERED: SODI1TAB PO (11:37)
--- NOTE | 2017-05-10 22:11 | HHI.DS ---
Discharge Summary Admission Date Feb 24, 2017 at 17:58 Discharge Date: Apr 29, 2017 Admitting Diagnosis altered mental status, leukocytosis (1) Sepsis ICD Code: A41.9 - Sepsis, unspecified organism Status: Acute (2) Right foot infection ICD Code: L08.9 - Local infection of the skin and subcutaneous tissue, unspecified Status: Acute (3) Encephalopathy ICD Code: G93.40 - Encephalopathy, unspecified Status: Acute (4) Alcoholism ICD Code: F10.20 - Alcohol dependence, uncomplicated Status: Chronic (5) Hypothyroidism ICD Code: E03.9 - Hypothyroidism, unspecified Procedures 03/10/2017 - Dr. Bullock exploration, wash, excisional debridement extensor tenosynovium right wrist/forearm/hand 03/08/17 - Dr. Bullock- exploration, wash, excisional debridement skin, subcutaneous tissue, extensor tenosynovitis right wrist and hand. Findings: necrotic tissue, minimal purulence, extensor tenosynovitis right wrist/hand 03/04/17 - Dr Gamez - Right leg and incision and drainage. Right foot delayed primary closure x3 03/04/17 - Dr. Bullock - Extensor tenosynovectomy second, third, fourth extensor compartments right wrist and excisional debridement wash index finger metacarpal phalangeal joint, excisional wash and excisional debridement left hand. 02/28/17 - Dr. Reyes - Right ankle wound debridement and washout. Implantation of antibiotic vancomycin beads. 02/28/17 - Dr. Bullock - Exploration, wash, excisional debridement index finger metacarpophalangeal joint right hand; Exploration, wash, excisional debridement metacarpophalangeal joint left index finger; Exploration, wash, excisional debridement extensor pollicis longus tendon right thumb and hand. 02/26/17 - Dr. Reyes - Right ankle incision and drainage, arthrotomy, removal infected hardware, bone biopsy. 02/26/17 - Dr. Bullock - Exploration, incision and drainage right hand abscess, Arthrotomy wash metacarpal phalangeal joint right index finger, Arthrotomy wash metacarpal phalangeal joint left index finger. Brief History - From Admission patient is a 61 y/o male , homeless, who presented to ER with pain and swelling of the right ankle. he says that he had a surgery on the right ankle years ago. he noticed some swelling of the right ankle about two months ago which has been getting worse.he 's complaining of some pain to the right ankle and foot. he reports some subjective fever prior to this presentation. Imaging Last Impressions Chest X-Ray 03/29/17 0000 Signed Impressions: Service Date/Time: Wednesday, March 29, 2017 12:17 - CONCLUSION: Stable chest. Isaac Stevenson MD FACR Tumor Localization 03/22/17 0000 Signed Impressions: Service Date/Time: Wednesday, March 22, 2017 13:03 - CONCLUSION: Nondiagnostic examination secondary to patient refusal Harry Lucio MD Abdomen X-Ray 03/08/17 0000 Signed Impressions: Service Date/Time: Wednesday, March 08, 2017 10:30 - CONCLUSION: Nonspecific, negative for obstruction or ileus. Isaac Stevenson MD FACR Lower Extremity CT 03/01/17 0000 Signed Impressions: Service Date/Time: Wednesday, March 01, 2017 11:12 - CONCLUSION: 1. No evidence of organized fluid collections to suggest an abscess. 2. Extensive soft tissue swelling surrounding the ankle and extending to the forefoot especially along the lateral aspect. 3. No erosive or destructive bone changes. 4. Bone defects compatible with previous excision device. Blake Rider MD Ankle X-Ray 02/26/17 0000 Signed Impressions: Service Date/Time: Sunday, February 26, 2017 17:15 - CONCLUSION: I see no retained surgical instruments. Isaac Stevenson MD FACR Upper Extremity Ultrasound 02/25/17 1734 Signed Impressions: Service Date/Time: February 17:54 - CONCLUSION: There is a thin fluid collection within the focal area of soft tissue swelling 2nd digit. Oscar Cassidy MD Hand X-Ray 02/25/17 0000 Signed Impressions: Service Date/Time: , February 25, 2017 18:59 - CONCLUSION: No gross bony abnormality. Oscar Cassidy MD Lower Extremity Ultrasound 02/24/17 0000 Signed Impressions: Service Date/Time: Friday, February 24, 2017 13:41 - CONCLUSION: Negative for deep venous thrombosis. Isaac Stevenson MD FACR Head CT 02/24/17 0000 Signed Impressions: Service Date/Time: Friday, February 24, 2017 16:08 - CONCLUSION: 1. No acute intracranial abnormality. 2. Probable large mucocele in the sphenoid sinus. Ty Hankins MD Abdomen/Pelvis CT 02/24/17 0000 Signed Impressions: Service Date/Time: Friday, February 24, 2017 16:16 - CONCLUSION: 1. Marked gaseous distension of large and small bowel most suggestive of ileus. 2. There is no free air. 3. 2.2 cm left adrenal mass. 4. Distended bladder. Isaac Stevenson MD FACR PE at Discharge GENERAL: SKIN: Warm and dry. HEAD: Normocephalic. EYES: No scleral icterus. No injection or drainage. NECK: Supple, trachea midline. No JVD or lymphadenopathy. CARDIOVASCULAR: Regular rate and rhythm without murmurs, gallops, or rubs. RESPIRATORY: Breath sounds equal bilaterally. No accessory muscle use. GASTROINTESTINAL: Abdomen soft, non-tender, nondistended. MUSCULOSKELETAL: right forearm covered with clean dressing. s/p right BKA BACK: Nontender without obvious deformity. No CVA tenderness. Pt update on day of discharge Patient is doing well. Denies any chest pain, shortness of breath, fever, chills. Hospital Course Mr. Aguiar is a who was admitted on February 27, 2017 due to swelling of his right ankle. Workup indicated septic arthritis with hardware in the joint. Patient underwent drainage. However because the wires with embedded deep in the tissue and thus could not be removed. Patient was eventually evaluated by vascular surgery who recommended right-sided below knee palpitation since medical management will not be effective due to embedded hardware in the deep tissue. Patient underwent right below knee amputation on 03/24/2017. 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 distant showering of emboli to other joints. MRSA bacteremia Right ankle hardware infection, s/p partial removal of hardware. Deeper hardware embedded. SP RIGHT BKA Bilateral UE hand abscess and tenosynovitis, septic arthritis s.p multiple d bridements. - Finished the course of Daptomycin. - ID signed off on 04/23/2017. - Continue pain control. - Multiple surgeries thus far: - podiatry Dr. Reyes/Dr. Gamez on 02/26, 02/28, 03/04 - hand surgeon Dr. Bullock on 02/26, 02/28, 03/04, 03/08, 03/10 - right BKA on 03/24/2017. chronic Systolic CHF - EF of 40-45% with global hypokinesis found on 02/28/17 - Continue Carvedilol 6.25mg Q12hrs, Lisinopril 2.5mg Qday. Hyponatremia, possibly SIADH - Na 123, 124 --> 134. - continue fluid restriction. - patient previously received Tolvaptan - started on sodium tablet and Demeclocycline. - Per nephrology, patient may need periodic Tolvaptan. Full code. Lovenox. Pt Condition on Discharge: Stable Discharge Disposition: Discharge to SNF Discharge Time: > 30 minutes Discharge Instructions DIET: Follow Instructions for: As Tolerated, No Restrictions Activities you can perform: Regular-No Restrictions Other Activity Instructions: Activity as tolerated Follow up Referrals: SNF/[facility] with [facility] New Medications: Pantoprazole (Protonix) 40 Mg Tab 40 MG PO DAILY for Reflux, #30 TAB 0 Refills Wheelchair (Wheelchair) 1 Mis Mis EA .ROUTE DIRECTED, #1 0 Refills Carisoprodol (Carisoprodol) 350 Mg Tablet 350 MG PO Q8H PRN for SPASM, #30 TAB Carvedilol (Coreg) 6.25 Mg Tab 6.25 MG PO Q12HR for Heart, #60 TAB Clonidine (Catapres) 0.2 Mg Tab 0.2 MG PO Q8H for Blood Pressure Management, #60 TAB Demeclocycline (Demeclocycline) 150 Mg Tab 300 MG PO Q12HR for hyponatremia, #60 TAB Levothyroxine (Synthroid) 50 Mcg Tab 50 MCG PO DAILY@0600 for Thyroid, #30 TAB Lisinopril (Lisinopril) 5 Mg Tab 2.5 MG PO DAILY for Blood Pressure Management, #30 TAB Mupirocin Nasal Oint (Bactroban Nasal Oint) 2% Oint 1 APPLIC NASAL BID for Infection for 10 Days, TUBE Single-use tubes. Oxycodone-Acetaminophen (Oxycodone-Acetaminophen) 10-325 mg Tab 1 TAB PO Q6H PRN for PAIN SCALE 5 TO 10, #30 TAB Sodium Chloride (Sodium Chloride) 1 Gram Tab 1 GM PO TID for Hyponatremia, #30 TAB Discontinued Medications: Cyclobenzaprine (Flexeril) 10 Mg Tab 10 MG PO TID for Muscle Spasm, #90 TAB 3 Refills Lisinopril (Lisinopril) 10 Mg Tab 10 MG PO DAILY, #30 TAB 3 Refills Naproxen Sodium (Naproxen Sodium) 220 Mg Tab 220 MG PO BID PRN for Pain Management, TAB 0 Refills Zee Velasquez DO May 10, 2017 22:11
== END 2017-04-29 14:30 | DRG 463 ==
LOC: NEPC 11:47 → NEDA 17:58 → N06B 20:23 → N03A 02-25 16:09 → N04B 03-02 01:15 → N04A 03-25 16:50
PROVIDERS: ADMIT Hospitalist; ATTEND Hospitalist
PROC: 0T9B70Z Drainage of Bladder with Drainage Device, Via Natural or Artificial Opening (ICD-10-PCS; 2017-02-24)
PROC: 0R9V0ZZ Drainage of Left Metacarpophalangeal Joint, Open Approach (ICD-10-PCS; 2017-02-26)
PROC: 0R9U0ZZ Drainage of Right Metacarpophalangeal Joint, Open Approach (ICD-10-PCS; 2017-02-26)
PROC: 0QBH0ZX Excision of Left Tibia, Open Approach, Diagnostic (ICD-10-PCS; 2017-02-26)
PROC: 0QPJ04Z Removal of Internal Fixation Device from Right Fibula, Open Approach (ICD-10-PCS; 2017-02-26)
PROC: 0QPG04Z Removal of Internal Fixation Device from Right Tibia, Open Approach (ICD-10-PCS; 2017-02-26)
PROC: 0DH67UZ Insertion of Feeding Device into Stomach, Via Natural or Artificial Opening (ICD-10-PCS; 2017-02-26)
PROC: 0H9FX0Z Drainage of Right Hand Skin with Drainage Device, External Approach (ICD-10-PCS; 2017-02-26)
PROC: 0HBGXZZ Excision of Left Hand Skin, External Approach (ICD-10-PCS; 2017-02-26)
PROC: 0HBFXZZ Excision of Right Hand Skin, External Approach (ICD-10-PCS; 2017-02-26)
PROC: 0RBV0ZZ Excision of Left Metacarpophalangeal Joint, Open Approach (ICD-10-PCS; 2017-02-28)
PROC: 0RBU0ZZ Excision of Right Metacarpophalangeal Joint, Open Approach (ICD-10-PCS; 2017-02-28)
PROC: 0LB70ZZ Excision of Right Hand Tendon, Open Approach (ICD-10-PCS; 2017-02-28)
PROC: 0HDMXZZ Extraction of Right Foot Skin, External Approach (ICD-10-PCS; 2017-02-28)
PROC: 0LB70ZZ Excision of Right Hand Tendon, Open Approach (ICD-10-PCS; 2017-03-04)
PROC: 0HBFXZZ Excision of Right Hand Skin, External Approach (ICD-10-PCS; 2017-03-04)
PROC: 0HDMXZZ Extraction of Right Foot Skin, External Approach (ICD-10-PCS; 2017-03-04)
PROC: 30233N1 Transfusion of Nonautologous Red Blood Cells into Peripheral Vein, Percutaneous Approach (ICD-10-PCS; 2017-03-07)
PROC: 0JBG0ZZ Excision of Right Lower Arm Subcutaneous Tissue and Fascia, Open Approach (ICD-10-PCS; 2017-03-08)
PROC: 0JBJ0ZZ Excision of Right Hand Subcutaneous Tissue and Fascia, Open Approach (ICD-10-PCS; 2017-03-08)
PROC: 0LB50ZZ Excision of Right Lower Arm and Wrist Tendon, Open Approach (ICD-10-PCS; 2017-03-08)
PROC: 0JBJ0ZZ Excision of Right Hand Subcutaneous Tissue and Fascia, Open Approach (ICD-10-PCS; 2017-03-10)
PROC: 0JBG0ZZ Excision of Right Lower Arm Subcutaneous Tissue and Fascia, Open Approach (ICD-10-PCS; 2017-03-10)
PROC: 0DH63UZ Insertion of Feeding Device into Stomach, Percutaneous Approach (ICD-10-PCS; 2017-03-11)
PROC: 0LT70ZZ Resection of Right Hand Tendon, Open Approach (ICD-10-PCS; 2017-03-12)
PROC: 0JBJ0ZZ Excision of Right Hand Subcutaneous Tissue and Fascia, Open Approach (ICD-10-PCS; 2017-03-18)
PROC: 0JBG0ZZ Excision of Right Lower Arm Subcutaneous Tissue and Fascia, Open Approach (ICD-10-PCS; 2017-03-18)
PROC: 0Y6H0Z1 Detachment at Right Lower Leg, High, Open Approach (ICD-10-PCS; principal; 2017-03-24 12:57)
PROC: 0T2BX0Z Change Drainage Device in Bladder, External Approach (ICD-10-PCS; 2017-03-26)
DX: T84.622A Infection and inflammatory reaction due to internal fixation device of right tibia, initial encounter (principal); A41.02 Sepsis due to Methicillin resistant Staphylococcus aureus; N17.0 Acute kidney failure with tubular necrosis; I33.0 Acute and subacute infective endocarditis; G92 Toxic encephalopathy; F10.231 Alcohol dependence with withdrawal delirium; E22.2 Syndrome of inappropriate secretion of antidiuretic hormone; I13.0 Hypertensive heart and chronic kidney disease with heart failure and stage 1 through stage 4 chronic kidney disease, or unspecified chronic kidney disease; I50.22 Chronic systolic (congestive) heart failure; E44.0 Moderate protein-calorie malnutrition; E87.0 Hyperosmolality and hypernatremia; M00.9 Pyogenic arthritis, unspecified; L03.114 Cellulitis of left upper limb; L03.113 Cellulitis of right upper limb; N39.0 Urinary tract infection, site not specified; L97.919 Non-pressure chronic ulcer of unspecified part of right lower leg with unspecified severity; M86.9 Osteomyelitis, unspecified; L02.511 Cutaneous abscess of right hand; L02.512 Cutaneous abscess of left hand; I42.9 Cardiomyopathy, unspecified; T83.518A Infection and inflammatory reaction due to other urinary catheter, initial encounter; M65.131 Other infective (teno)synovitis, right wrist; Y79.3 Surgical instruments, materials and orthopedic devices (including sutures) associated with adverse incidents; F32.9 Major depressive disorder, single episode, unspecified; E87.6 Hypokalemia; F41.9 Anxiety disorder, unspecified; G89.21 Chronic pain due to trauma; M25.571 Pain in right ankle and joints of right foot; F17.210 Nicotine dependence, cigarettes, uncomplicated; Z59.0 Homelessness; E86.0 Dehydration; B18.2 Chronic viral hepatitis C; N18.9 Chronic kidney disease, unspecified; E83.41 Hypermagnesemia; Y92.9 Unspecified place or not applicable; Y83.8 Other surgical procedures as the cause of abnormal reaction of the patient, or of later complication, without mention of misadventure at the time of the procedure; R09.02 Hypoxemia; Z78.1 Physical restraint status; E03.9 Hypothyroidism, unspecified; E83.39 Other disorders of phosphorus metabolism; E83.51 Hypocalcemia; I25.10 Atherosclerotic heart disease of native coronary artery without angina pectoris; R13.10 Dysphagia, unspecified; K59.00 Constipation, unspecified; I73.9 Peripheral vascular disease, unspecified; D64.9 Anemia, unspecified; Y84.6 Urinary catheterization as the cause of abnormal reaction of the patient, or of later complication, without mention of misadventure at the time of the procedure; Y95 Nosocomial condition
CPT/HCPCS: 36430; 36600; 70450; 71010; 73130; 73600; 73610; 73701; 74000; 74177; 76000; 76882; 78805; 80048; 80053; 80069; 80074; 80076; 80202; 80307; 81001; 82140; 82550; 82552; 82607; 82728; 82746; 82805; 83036; 83540; 83550; 83605; 83735; 83880; 83930; 83935; 84100; 84155; 84295; 84300; 84439; 84443; 84484; 85007; 85014; 85018; 85025; 85027; 85044; 85610; 85730; 86140; 86403; 86703; 86850; 86900; 86901; 86920; 87015; 87040; 87070; 87077; 87086; 87102; 87116; 87147; 87176; 87186; 87205; 87206; 87522; 87641; 87902; 88305; 88307; 88311; 93005; 93306; 93308; 93971; 96361; 96365; 96368; A9569; C9113; J0131; J0330; J0692; J0878; J1170; J1580; J1650; J1940; J2060; J2175; J2250; J2270; J2370; J2405; J2543; J2710; J3010; J3370; J3475; J3480; J7030; J7040; J7050; J7070; J7120; L3908; P9016; Q9967